=== PATIENT | female | born 1980 | race Caucasian/White ===

== ENCOUNTER → 2018-10-20 | Outpatient (CLI) | payer OTHER ==
--- NOTE | 2018-10-20 20:08 | MR ---
EXAMINATION TYPE: MR brain wo/w con DATE OF EXAM: 10/20/2018 COMPARISON: NONE HISTORY: No prior, swollen optic nerve, visual disturbance. Abnormal ophthalmology exam. TECHNIQUE: Multiplanar, multisequence images of the brain and brainstem is performed without and with IV contras t, utilizing 10ml mL intravenous Gadavist . FINDINGS: Diffusion weighted images demonstrate no evidence of a recent infarct or other diffusion ab normality. There is no extra-axial fluid collection or significant white matter signal abnormality. The ventricular system and cisternal spaces are normal in size and appearance. The brain volume is age appropriate. 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 Midline structures demonstrate empty sella morphology. The craniocervical junction appears within no rmal limits. Post contrast images demonstrate no abnormal enhancement. The dural venous sinuses appe ar patent. The globes are intact bilaterally.. No suspicious outpouching along posterior globe margin IMPRESSION: Empty sella morphology without hydrocephalus or other findings to suggest intracranial hy potension
== END | disposition home or self-care (01) ==
LOC: RADMRIMAIN 19:10
PROVIDERS: ATTEND Ophthalmology
DX: H47.11 Papilledema associated with increased intracranial pressure (principal)
CPT/HCPCS: 70553; A9585

== ENCOUNTER 2018-11-03 09:19 | Day surgery (SDC) | payer OTHER ==
[2018-10-31 08:28] VITALS: BMI 39.8
[~2018-11-03 09:19] MED LIST: LACTATED RINGERS 1,000 ML IV SCH
[2018-11-03 10:51] VITALS: TEMP 97.2
--- NOTE | 2018-11-03 12:06 | P.PCN ---
Date of Procedure: 11/03/18 Procedure(s) Performed: Preoperative diagnosis: Pseudotumor cerebri Post operative diagnoses: Pseudotumor cerebri Anesthesia local infiltration with lidocaine 1% 2 mL., moderate sedation with fentanyl and Versed Condition: stable Complication: none. Description of the procedure procedure risk and benefits discussed with the patient and family, consent signed. Patient was taken to the procedure area placed in left lateral position. Local infiltration of the skin and subcutaneous tissue with lidocaine 1%. A 22-gauge Quincke-type needle advanced slowly at L4- 5 interlaminar space.opening pressure was measured at 50 cm of water. CSF was collected. A total of 22 ML of clear cerebrospinal fluid collected in 4 tubes, then closing pressure was measured at 16 cm of water. Then, the needle was removed and a Band-Aid applied and patient tolerated the procedure well without any complications.
[2018-11-03] MEDS ORDERED: IV FLUID CONTINUATION 1,000 ML IV ONE (12:18)
[2018-11-03 12:23] VITALS: RESP 16
[2018-11-03] MEDS: hydrALAZINE HCL 20 MG/ML 1 ML VIAL IVP ONE ×2 (13:14→13:35)
[2018-11-03 14:09] VITALS: BP 157/95; PULSE 89
[2018-11-03 14:24] LABS: Glucose,CSF 46 mg/dL (40-70); Total Protein,CSF 24 mg/dL (12-60)
[2018-11-03 16:04] LABS: Appearance,CSF Clear; CSF Tube Number 4; Nucleated Cells, CSF 0 u/L (0-5); Red Blood Cell,CSF 3 u/L (0-10)
== END 2018-11-03 14:25 | disposition home or self-care (01) ==
LOC: ORPAIN 09:19
PROVIDERS: ATTEND Anesthesiology
DX: G93.2 Benign intracranial hypertension (principal)
CPT/HCPCS: 62270; 81025; 88108; 84157; 82945; 89050; J2250; J0360; J3010; 99152

== ENCOUNTER 2018-12-29 23:15 | Inpatient (IN) | payer OTHER ==
[2018-12-30] MEDS ORDERED: SODIUM CHLORIDE 0.9% 1,000 ML IV STA ×2 (00:38→01:52)
[2018-12-30 00:46] LABS: Basophils % (A) 0 %; Eosinophils # (A) 0.3 k/uL (0-0.7); Eosinophils % (A) 2 %; HCT 24.2 % (34.0-46.0); HGB 8.3 gm/dL (11.4-16.0); Lymphocytes # (A) 1.9 k/uL (1.0-4.8); Lymphocytes % (A) 17 %; MCH 29.6 pg (25.0-35.0); MCHC 34.2 g/dL (31.0-37.0); MCV 86.8 fL (80.0-100.0); Mean Platelet Volume 7.3; Monocytes # (A) 0.3 k/uL (0-1.0); Monocytes % (A) 3 %; Neutrophils # (A) 8.3 k/uL (1.3-7.7); Neutrophils % (A) 76 %; Platelet Count 219 k/uL (150-450); RBC 2.79 m/uL (3.80-5.40); RDW 15.3 % (11.5-15.5); WBC 10.9 k/uL (3.8-10.6)
[2018-12-30 00:54] LABS: Albumin 3.8 g/dL (3.5-5.0); Potassium 4.6 mmol/L (3.5-5.1); Total Bilirubin 0.2 mg/dL (0.2-1.3)
[2018-12-30 01:07] LABS: Calcium 6.3 mg/dL (8.4-10.2)
[2018-12-30] MEDS ORDERED: hydrALAZINE HCL 20 MG/ML 1 ML VIAL IVP STA (01:28)
[2018-12-30 01:37] LABS: Appearance,Urine Clear (Clear); Bacteria,Urine Many /hpf; Bilirubin,Urine Negative (Negative); Blood,Urine Small (Negative); Color,Urine Colorless; Glucose,Urine (UA) Negative (Negative); Ketones,Urine Negative (Negative); Leukocyte Esterase,Urine Large (Negative); Nitrite,Urine Negative (Negative); Protein,Urine 2+ (Negative); Specific Gravity,Urine 1.007 (1.001-1.035); Squamous Epithelial Cell,Urine <1 /hpf (0-4); Urobilinogen,Urine <2.0 mg/dL (<2.0); WBC,Urine 66 /hpf (0-5)
[2018-12-30] MEDS ORDERED: CALCIUM GLUCONATE 1 GM in SODIUM CHLORIDE 0.9% 100 ML IVPB ONE (02:30)
[2018-12-30] MEDS ORDERED: NALOXONE 0.4 MG/ML 1 ML VIAL IV PRN (03:14)
--- NOTE | 2018-12-30 03:14 | ED ---
General Adult HPI - General Chief complaint: Recheck/Abnormal Lab/Rx Stated complaint: Abn Lab level Time Seen by Provider: 12/30/18 00:36 Source: patient, RN notes reviewed, old records reviewed Mode of arrival: ambulatory Limitations: no limitations - History of Present Illness Initial comments: 38-year-old female patient presents to ED after a febrile patient laboratory investigations reportedly revealed a critically high name. Patient has a history of focal segment lower lobe sclerosis. Patient reports that she last saw a mathematics instructor approximate 5 years ago. Patient is asymptomatic at this time. Denies any complaints. She does still make urine. Systemic: Pt denies fatigue, fever/chills, rash. Pt denies weakness, night sweats, weight loss. Neuro: Pt denies headache, visual disturbances, syncope or pre-syncope. HEENT: Pt denies ocular discharge or irritation, otalgia, rhinorrhea, pharyngitis or notable lymphadenopathy. Cardiopulmonary: Pt denies chest pain, SOB, heart palpitations, dyspnea on exertion. Abdominal/GI: Pt denies abdominal pain, n/v/d. : Pt denies dysuria, burning w/ urination, frequency/urgency. Denies new onset urinary or bowel incontinence. MSK: Pt denies myalgia, loss of strength or function in extremities. Neuro: Pt denies new onset weakness, paresthesias. - Related Data Home Medications Medication Instructions Recorded Confirmed No Known Home Medications 10/31/18 10/31/18 Allergies Allergy/AdvReac Type Severity Reaction Status Date / Time Pertussis Vaccines Allergy Unknown Verified 12/29/18 23:35 ciprofloxacin [From Cipro] AdvReac " Verified 12/29/18 23:35 UNCONTROLLABLE EMOTIONS" PER PT Review of Systems ROS Statement: Those systems with pertinent positive or pertinent negative responses have been documented in the HPI. ROS Other: All systems not noted in ROS Statement are negative. Past Medical History Past Medical History: Hypertension, Renal Disease Additional Past Medical History / Comment(s): SWOLLEN OPTICAL NERVE. HX FSGS (FOCAL SEGMENTAL GLOMERULAR SCLEROSIS) History of Any Multi-Drug Resistant Organisms: None Reported Past Surgical History: Section Past Anesthesia/Blood Transfusion Reactions: No Reported Reaction Past Psychological History: No Psychological Hx Reported Smoking Status: Former smoker Past Alcohol Use History: Occasional Past Drug Use History: Marijuana - Past Family History Father Family Medical History: Myocardial Infarction ([place]) Additional Family Medical History / Comment(s): FATHER AT AGE 35 OF MASSIVE HEART ATTACK Mother Family Medical History: No Reported History General Exam - General Exam Comments Initial Comments: Constitutional: NAD, AOX3, Pt has pleasant affect. HEENT: NC/AT, trachea midline, neck supple, no lymphadenopathy. Posterior pharynx non erythematous, without exudates. External ears appear normal, without discharge. Mucous membranes moist. Eyes PERRLA, EOM intact. There is no scleral icterus. No pallor noted. Cardiopulmonary: RRR, no murmurs, rubs or gallops, no JVD noted. Lungs CTAB in anterior and posterior portillo. No peripheral edema. Abdominal exam: Abdomen soft and non-distended. Abdomen non-tender to palpation in all 4 quadrants. Bowel sounds active in LLQ. No hepatosplenomegaly. No ecchym osis Neuro: CN II-XII grossly intact. No nuchal rigidity. No raccon eyes, no molina sign, no hemotympanum. No cervical spinal tenderness. MSK: No posterior calf tenderness bilaterally, homans sign negative bilaterally. Posterior tibialis and radial pulse +2 bilaterally. Sensation intact in upper an d lower extremities. Full active ROM in upper and lower extremities, 5/5 stregnth. Limitations: no limitations Course Vital Signs 12/29/18 12/30/18 12/30/18 23:31 01:14 02:20 Temperature 98.2 F Pulse Rate 85 81 82 Respiratory 15 18 16 Rate Blood Pressure 198/96 175/102 161/88 O2 Sat by Pulse 98 100 98 Oximetry Medical Decision Making - Medical Decision Making 38-year-old female patient presents to ED after a febrile patient laboratory investigations reportedly revealed a critically high name. Patient has a history of focal segment lower lobe sclerosis. Patient reports that she last saw a mathematics instructor approximate 5 years ago. Patient is asymptomatic at this time. Denies any complaints. She does still make urine. Investigation revealed hypertension, patient administered antihypertensive. Laboratory investigations revealed an alert 8.3. Creatinine was 10.17. Calcium 6.3. Phosphorus 8.0. Glucose 114. UA displayed +2 protein, small blood, large leukocyte Estrace 66 white blood cells. Patient was initiated on fluid bolus, calcium gluconate. Patient initiated on 1 g Rocephin 1 hour after dosing gluco yolanda, and bolus. EKG nonischemic, QTC 466. Patient be admitted for acute renal failure, nephrology consultation. Case discussed with Dr. Tiwari. - Lab Data Result diagrams: 12/30/18 00:20 12/30/18 00:20 Lab Results 12/30/18 12/30/18 12/30/18 Range/Units 00:20 00:20 00:20 WBC 10.9 H (3.8-10.6) k/uL RBC 2.79 L (3.80-5.40) m/uL Hgb 8.3 L (11.4-16.0) gm/dL Hct 24.2 L (34.0-46.0) % MCV 86.8 (80.0-100.0) fL MCH 29.6 (25.0-35.0) pg MCHC 34.2 (31.0-37.0) g/dL RDW 15.3 (11.5-15.5) % Plt Count 219 (150-450) k/uL Neutrophils % 76 % Lymphocytes % 17 % Monocytes % 3 % Eosinophils % 2 % Basophils % 0 % Neutrophils # 8.3 H (1.3-7.7) k/uL Lymphocytes # 1.9 (1.0-4.8) k/uL Monocytes # 0.3 (0-1.0) k/uL Eosinophils # 0.3 (0-0.7) k/uL Basophils # 0.0 (0-0.2) k/uL Sodium 141 (137-145) mmol/L Potassium 4.6 (3.5-5.1) mmol/L Chloride 112 H (98-107) mmol/L Carbon Dioxide 10 L (22-30) mmol/L Anion Gap 19 mmol/L BUN 94 H (7-17) mg/dL Creatinine 10.17 H* (0.52-1.04) mg/dL Est GFR (CKD-EPI)AfAm 5 (>60 ml/min/1.73 sqM) Est GFR (CKD-EPI)NonAf 4 (>60 ml/min/1.73 sqM) Glucose 114 H (74-99) mg/dL Calcium 6.3 L* (8.4-10.2) mg/dL Phosphorus 8.0 H (2.5-4.5) mg/dL Total Bilirubin 0.2 (0.2-1.3) mg/dL AST 16 (14-36) U/L ALT 17 (9-52) U/L Alkaline Phosphatase 59 (38-126) U/L Total Protein 7.0 (6.3-8.2) g/dL Albumin 3.8 (3.5-5.0) g/dL Urine Color Urine Appearance (Clear) Urine pH (5.0-8.0) Ur Specific [place] (1.001-1.035) Urine Protein (Negative) Urine Glucose (UA) (Negative) Urine Ketones (Negative) Urine Blood (Negative) Urine Nitrite (Negative) Urine Bilirubin (Negative) Urine Urobilinogen (<2.0) mg/dL Ur Leukocyte Esterase (Negative) Urine WBC (0-5) /hpf Urine WBC Clumps (None) /hpf Ur Squamous Epith Cells (0-4) /hpf Urine Bacteria (None) /hpf 12/30/18 Range/Units 01:20 WBC (3.8-10.6) k/uL RBC (3.80-5.40) m/uL Hgb (11.4-16.0) gm/dL Hct (34.0-46.0) % MCV (80.0-100.0) fL MCH (25.0-35.0) pg MCHC (31.0-37.0) g/dL RDW (11.5-15.5) % Plt Count (150-450) k/uL Neutrophils % % Lymphocytes % % Monocytes % % Eosinophils % % Basophils % % Neutrophils # (1.3-7.7) k/uL Lymphocytes # (1.0-4.8) k/uL Monocytes # (0-1.0) k/uL Eosinophils # (0-0.7) k/uL Basophils # (0-0.2) k/uL Sodium (137-145) mmol/L Potassium (3.5-5.1) mmol/L Chloride (98-107) mmol/L Carbon Dioxide (22-30) mmol/L Anion Gap mmol/L BUN (7-17) mg/dL Creatinine (0.52-1.04) mg/dL Est GFR (CKD-EPI)AfAm (>60 ml/min/1.73 sqM) Est GFR (CKD-EPI)NonAf (>60 ml/min/1.73 sqM) Glucose (74-99) mg/dL Calcium (8.4-10.2) mg/dL Phosphorus (2.5-4.5) mg/dL Total Bilirubin (0.2-1.3) mg/dL AST (14-36) U/L ALT (9-52) U/L Alkaline Phosphatase (38-126) U/L Total Protein (6.3-8.2) g/dL Albumin (3.5-5.0) g/dL Urine Color Colorless Urine Appearance Clear (Clear) Urine pH 6.0 (5.0-8.0) Ur Specific [place] 1.007 (1.001-1.035) Urine Protein 2+ H (Negative) Urine Glucose (UA) Negative (Negative) Urine Ketones Negative (Negative) Urine Blood Small H (Negative) Urine Nitrite Negative (Negative) Urine Bilirubin Negative (Negative) Urine Urobilinogen <2.0 (<2.0) mg/dL Ur Leukocyte Esterase Large H (Negative) Urine WBC 66 H (0-5) /hpf Urine WBC Clumps Occasional H (None) /hpf Ur Squamous Epith Cells <1 (0-4) /hpf Urine Bacteria Many H (None) /hpf - EKG Data -: EKG Interpreted by Me (and Dr. Tiwari) EKG Comments: Ventricular rate 86, painful 156, QRS 86 QT/QTC 390 [id number]. Normal sensation, normal EKG, no concern for acute ischemia. Disposition Clinical Impression: Acute renal failure, UTI (urinary tract infection) Disposition: ADMITTED IP TO THIS [facility] Condition: Serious Is patient prescribed a controlled substance at d/c from ED?: No Referrals: Alia Keita MD [Primary Care Provider] - 1-2 days
[2018-12-30] MEDS ORDERED: SODIUM CHLORIDE 0.9% 1,000 ML IV SCH (03:15)
[2018-12-30 04:29] VITALS: BMI 34.4
[2018-12-30] MEDS: ACETAMINOPHEN TAB 325 MG TAB PO PRN ×2 (12:10→23:26)
[2018-12-30] MEDS: DEXTROSE 5% IN WATER 1,000 ML with SODIUM BICARB (1 MEQ/ML) 150 ML IV SCH ×2 (12:10→23:22)
[2018-12-30] MEDS ORDERED: ONDANSETRON 4 MG/2 ML VIAL IVP PRN (12:14)
[2018-12-30] MEDS: amLODIPine 5 MG TAB PO SCH (12:27)
--- NOTE | 2018-12-30 13:58 | P.HPIM ---
History of Present Illness 38-year-old pleasant female was sent in after she was found to have critically high creatinine of 10 on routine labs. Patient denied any symptoms of fatigue nausea vomiting. Patient has diagnosed of focal segmental sclerosis which was diagnosed with biopsy for 15 years ago does urinate well. Patient denied any dysuria or increased urinary frequency urine is bit abnormal with leukocytes although patient has a symptom any bacteria will not require any antibiotics that. Nephrology valid to the patient patient was started on normal saline. Lisinopril was discontinued patient was started on amlodipine because of elevated blood pressure and plan is to monitor her for next couple days with close creatinine monitoring with IV fluids and there is no improvement at that time nephrology will plan on dialysis, patient was started on IV sodium bicarbonate drip Review of Systems REVIEW OF SYSTEMS: CONSTITUTIONAL: No fever, no malaise, no fatigue. HEENT: No recent visual problems or hearing problems. Denied any sore throat. CARDIOVASCULAR: No chest pain, orthopnea, PND, no palpitations, no syncope. PULMONARY: No shortness of breath, no cough, no hemoptysis. GASTROINTESTINAL: No diarrhea, no nausea, no vomiting, no abdominal pain. NEUROLOGICAL: No headaches, no weakness, no numbness. HEMATOLOGICAL: Denies any bleeding or petechiae. GENITOURINARY: Denies any burning micturition, frequency, or urgency. MUSCULOSKELETAL/RHEUMATOLOGICAL: Denies any joint pain, swelling, or any muscle pain. ENDOCRINE: Denies any polyuria or polydipsia. The rest of the 14-point review of systems is negative. Past Medical History Past Medical History: Hypertension, Renal Disease Additional Past Medical History / Comment(s): SWOLLEN OPTICAL NERVE. HX FSGS (FOCAL SEGMENTAL GLOMERULAR SCLEROSIS) History of Any Multi-Drug Resistant Organisms: None Reported Past Surgical History: Section Past Anesthesia/Blood Transfusion Reactions: No Reported Reaction Past Psychological History: No Psychological Hx Reported Smoking Status: Former smoker Past Alcohol Use History: Occasional Past Drug Use History: Marijuana - Past Family History Father Family Medical History: Myocardial Infarction ([place]) Additional Family Medical History / Comment(s): FATHER AT AGE 35 OF MASSIVE HEART ATTACK Mother Family Medical History: No Reported History Medications and Allergies Home Medications Medication Instructions Recorded Confirmed Type Lisinopril [Zestril] 10 mg PO DAILY 12/30/18 12/30/18 History Potassium 99 mg PO DAILY PRN 12/30/18 12/30/18 History Allergies Allergy/AdvReac Type Severity Reaction Status Date / Time Pertussis Vaccines Allergy Unknown Verified 12/30/18 08:10 ciprofloxacin [From Cipro] AdvReac UNCONTROLLABLE Verified 12/30/18 08:10 EMOTIONS PER PT Physical Exam Vitals: Vital Signs Temp Pulse Pulse Resp BP BP Pulse Ox 12/30/18 12:48 98.4 F 94 16 176/87 98 12/30/18 05:11 98.1 F 81 18 168/91 100 12/30/18 03:56 98.5 F 82 18 165/90 98 12/30/18 02:20 82 16 161/88 98 12/30/18 01:14 81 18 175/102 100 12/29/18 23:31 98.2 F 85 15 198/96 98 Intake and Output 12/29/18 12/30/18 12/30/18 22:59 06:59 14:59 Intake Total 210 Balance 210 Intake: Intake, IV Titration 210 Amount Sodium Chloride 0.9% 1, 160 000 ml @ 80 mls/hr IV . [id number] [facility] Rx#:[id number] cefTRIAXone 1 gm In 50 Sodium Chloride 0.9% 50 ml @ 100 mls/hr IVPB ONCE ONE Rx#:[id number] Other: Voiding Method Toilet Toilet Weight 109.769 kg PHYSICAL EXAMINATION: GENERAL: The patient is alert and oriented x3, not in any acute distress. Well developed, well nourished. HEENT: Pupils are round and equally reacting to light. EOMI. No scleral icterus. No conjunctival pallor. Normocephalic, atraumatic. No pharyngeal erythema. No thyromegaly. CARDIOVASCULAR: S1 and S2 present. No murmurs, rubs, or gallops. PULMONARY: Chest is clear to auscultation, no wheezing or crackles. ABDOMEN: Soft, nontender, nondistended, normoactive bowel sounds. No palpable organomegaly. MUSCULOSKELETAL: No joint swelling or deformity. EXTREMITIES: No cyanosis, clubbing, or pedal edema. NEUROLOGICAL: Gross neurological examination did not reveal any focal deficits. SKIN: No rashes. Results CBC & Chem 7: 12/30/18 00:20 12/30/18 00:20 Labs: Abnormal Lab Results - Last 24 Hours (Table) 12/30/18 12/30/18 12/30/18 Range/Units 00:20 00:20 00:20 WBC 10.9 H (3.8-10.6) k/uL RBC 2.79 L (3.80-5.40) m/uL Hgb 8.3 L (11.4-16.0) gm/dL Hct 24.2 L (34.0-46.0) % Neutrophils # 8.3 H (1.3-7.7) k/uL Chloride 112 H (98-107) mmol/L Carbon Dioxide 10 L (22-30) mmol/L BUN 94 H (7-17) mg/dL Creatinine 10.17 H* (0.52-1.04) mg/dL Glucose 114 H (74-99) mg/dL Calcium 6.3 L* (8.4-10.2) mg/dL Phosphorus 8.0 H (2.5-4.5) mg/dL Urine Protein (Negative) Urine Blood (Negative) Ur Leukocyte Esterase (Negative) Urine WBC (0-5) /hpf Urine WBC Clumps (None) /hpf Urine Bacteria (None) /hpf 12/30/18 Range/Units 01:20 WBC (3.8-10.6) k/uL RBC (3.80-5.40) m/uL Hgb (11.4-16.0) gm/dL Hct (34.0-46.0) % Neutrophils # (1.3-7.7) k/uL Chloride (98-107) mmol/L Carbon Dioxide (22-30) mmol/L BUN (7-17) mg/dL Creatinine (0.52-1.04) mg/dL Glucose (74-99) mg/dL Calcium (8.4-10.2) mg/dL Phosphorus (2.5-4.5) mg/dL Urine Protein 2+ H (Negative) Urine Blood Small H (Negative) Ur Leukocyte Esterase Large H (Negative) Urine WBC 66 H (0-5) /hpf Urine WBC Clumps Occasional H (None) /hpf Urine Bacteria Many H (None) /hpf Thrombosis Risk Factor Assmnt - Choose All That Apply Any of the Below Risk Factors Present?: No Each Factor Represents 1 point: Obesity (BMI >25) Other Risk Factors: No Other congenital or acquired thrombophilia - If yes, enter type in comment: No Thrombosis Risk Factor Assessment Total Risk Factor Score: 1 Thrombosis Risk Factor Assessment Level: Very Low Risk Assessment and Plan Plan: renal failure: Mostly from chronic kidney disease stage V which is again secondary to focal segmental nephrosclerosis, there may be a competent of acute renal failure and to prerenal azotemia because of which patient was started on IV fluids -Metabolic acidosis secondary to uremia and the patient was started on sodium bicarbonate drip as per nephrology, and lisinopril was discontinued -Hypertension secondary to focal segmental nephrosclerosis patient was started on amlodipine. -leukocytosis reactive -Anemia, Chronic: Probably anemia of chronic kidney disease ferritin an iron saturation will be obtained. -Due to prophylaxis early ambulation
[2018-12-30] MEDS ORDERED: DARBEPOETIN ALFA 60 MCG/0.3 ML SYRINGE SQ SCH (18:00)
[2018-12-30 19:11] LABS: Ferritin 88.5 ng/mL (10.0-291.0)
[2018-12-30 19:13] LABS: Iron Saturation 10.17 (12.00-45.00)
--- NOTE | 2018-12-30 21:47 | CONS ---
CONSULTATION REASON FOR CONSULT: Renal failure. HISTORY OF PRESENT ILLNESS: The patient is a 38-year-old female with a previous history of chronic kidney disease secondary to FSGS after a biopsy done about 15 years ago. The patient has not followed up with a hot iron worker recently. She states her GFR was about 38 about 5 years ago. She recently saw Dr. Keita and had labs drawn and creatinine was noted to be around 10. Therefore, patient was advised to come into the hospital. The patient denies any change in her overall general condition. She denies nausea, vomiting or diarrhea, and she states her energy level has not changed much and she has good urine output. The patient also denies use of any nonsteroidal anti-inflammatory agents prior to admission. The patient noted that she started taking Zestril about 4 weeks ago. She had been on it and she had run out and was not taking it for almost a year, but restarted it just 3-4 weeks ago. Currently patient is maintained on IV fluids. She has had good urine output. She is not hypotensive. Blood pressure is slightly on the higher side. PAST MEDICAL HISTORY: CKD stage 4, as of 5 years ago. No recent labs available for assessment. Hypertension. PAST SURGICAL HISTORY: . SOCIAL HISTORY: Patient is a former smoker. No history of drug abuse or alcohol abuse. MEDICATIONS: Medications at home included Zestril, potassium. ALLERGIES: INCLUDE PERTUSSIS VACCINE AND CIPRO WHICH CAUSES UNCONTROLLED EMOTIONS. REVIEW OF SYSTEMS: As per HPI. Other systems negative. EXAMINATION: Patient is comfortable, awake, alert, oriented x3. She is not in any acute distress. Blood pressure this morning was as 168/91, heart rate 81 per minute. She is afebrile. Examination of the heart S1, S2. Examination of the lungs, bilateral breath sounds are heard. Abdomen is soft, nontender. Examination of lower extremities shows no evidence of edema. No asterixis is noted. YEAST PUSHER exam grossly intact. LAB: Shows sodium 141, potassium 4.6, chloride 112. CO2 is 10. BUN 94, creatinine 10.1, calcium 6.3. UA shows 2+ protein, small blood is noted. Albumin at 3.8, hemoglobin 8.3. ASSESSMENT: 1. Chronic kidney disease stage IV to 5 fluid, with progressive worsening of renal function. At this time, I am not sure how much of her renal failure is due to acute kidney injury. I will continue with the IV fluids and patient is advised that if her renal function does not improve, she will need to start dialysis. She is fairly asymptomatic. However, this may be going on for quite some time now. The patient also started lisinopril about 3-4 weeks ago which may have contributed to some degree of acute kidney injury. 2. Hypertension. Continue to hold off on lisinopril. Add Norvasc. 3. Severe metabolic acidosis, anion gap secondary to renal failure. Add IV sodium bicarb. 4. Anemia, rule out iron deficiency and also secondary to anemia of chronic disease. Add Aranesp. 5. Hypocalcemia and hyperphosphatemia secondary to mineral bone disorder. Check PTH levels and 25 hydroxy vitamin D levels. The patient will need to start Rocaltrol based on her PTH. I will add PhosLo for her phosphate binders as her calcium is on the lower side. 6. Pyuria, rule out urinary tract infection. Patient is maintained on Rocephin. PLAN: 1. Add Norvasc. 2. Add sodium bicarb IV. 3. Add Aranesp. 4. Check iron studies. 5. Check PTH and 25 hydroxy vitamin D level. 6. Continue with IV fluids. 7. Repeat labs in a.m. 8. Check ultrasound of the kidneys and if renal function does not improve over the next day or so, patient will need to start dialysis. 9. Thank you for this consultation. We will continue to follow the patient with you during her hospitalization. MMODL / IJN: [id number] /
--- NOTE | 2018-12-30 23:08 | US ---
EXAMINATION TYPE: US renals and bladder DATE OF EXAM: 12/30/2018 COMPARISON: US CLINICAL HISTORY: RF. RF per order. HTN. Hx renal BX. Patient has Focal Segmental Glomerulosclerosis. EXAM MEASUREMENTS: Right Kidney: 7.5 x 5.2 x 4.3 cm Left Kidney: 10.0 x 5.3 x 5.9 cm Right Kidney: Hypoechoic area seen inferiorly measurin.7 x 1.7 x 1.7 cm. Hypoechoic area seen med ially/mid pole measurin.7 x 1.5 x 1.2 cm. Limited, echogenicity appears increased similar to live r echogenicity. Appears small in size. Left Kidney: Hypoechoic/mixed area seen inferiorly measurin.4 x 1.9 x 2.5 cm. Limited, indistinct borders. Appears very heterogeneous. Bladder: Not fully distended, limited evaluation. Bilateral Jets seen: Right jet seen. IMPRESSION: There are bilateral renal cortical cysts. No solid renal mass. Kidneys are echogenic suggestive of medical renal disease. No hydronephrosis.
[2018-12-31] MEDS ORDERED: CARVEDILOL 6.25 MG TAB PO SCH (07:30)
[2018-12-31 08:17] LABS: Basophils % (A) 0 %; Eosinophils # (A) 0.2 k/uL (0-0.7); Eosinophils % (A) 2 %; HCT 21.4 % (34.0-46.0); HGB 7.2 gm/dL (11.4-16.0); Hypochromasia Slight; Lymphocytes # (A) 1.2 k/uL (1.0-4.8); Lymphocytes % (A) 16 %; MCH 29.7 pg (25.0-35.0); MCHC 33.9 g/dL (31.0-37.0); MCV 87.6 fL (80.0-100.0); Mean Platelet Volume 7.5; Monocytes # (A) 0.3 k/uL (0-1.0); Monocytes % (A) 4 %; Neutrophils # (A) 5.9 k/uL (1.3-7.7); Neutrophils % (A) 77 %; Platelet Count 177 k/uL (150-450); RBC 2.44 m/uL (3.80-5.40); RDW 15.2 % (11.5-15.5); WBC 7.6 k/uL (3.8-10.6)
[2018-12-31] MEDS: CALCIUM ACETATE 667 MG CAP PO SCH ×3 (08:33→17:14)
[2018-12-31] MEDS: amLODIPine 5 MG TAB PO SCH (08:33)
[2018-12-31 08:37] LABS: Albumin 3.1 g/dL (3.5-5.0); Total Bilirubin 0.3 mg/dL (0.2-1.3); Total Protein 5.9 g/dL (6.3-8.2)
[2018-12-31] MEDS: DEXTROSE 5% IN WATER 1,000 ML with SODIUM BICARB (1 MEQ/ML) 150 ML IV SCH ×2 (12:27→23:25)
[2018-12-31] MEDS: ACETAMINOPHEN TAB 325 MG TAB PO PRN (12:31)
--- NOTE | 2018-12-31 14:19 | P.PN ---
Subjective Progress Note Date: 12/31/18 Principal diagnosis: 38-year-old pleasant female was sent in after she was found to have critically high creatinine of 10 on routine labs. Patient denied any symptoms of fatigue nausea vomiting. Patient has diagnosed of focal segmental sclerosis which was diagnosed with biopsy for 15 years ago does urinate well. Patient denied any dysuria or increased urinary frequency urine is bit abnormal with leukocytes although patient has a symptom any bacteria will not require any antibiotics that. Nephrology valid to the patient patient was started on normal saline. Lisinopril was discontinued patient was started on amlodipine because of elevated blood pressure and plan is to monitor her for next couple days with close creatinine monitoring with IV fluids and there is no improvement at that time nephrology will plan on dialysis, patient was started on IV sodium bicarbonate drip 12/31/2018 Patient is sitting up in bed in no acute distress with at the bedside. Patient is being followed closely by nephrology. Creatinine today is 9.55 and will be closely monitored. Patient is currently still on IV fluids but was changed from normal saline to dextrose with sodium bicarbonate. Patient continues to have high blood pressure and per nephrology recommendations patient was started on Norvasc and will continue to monitor. Patient denies any shortness of breath, chest pain, or palpitations at this time. Patient is afebrile. Patient denies any nausea or vomiting and has been tolerating diet. Objective - Vital Signs Vital signs: Vital Signs Temp 98.6 F 12/31/18 12:59 Pulse 83 12/31/18 12:59 Resp 17 12/31/18 12:59 BP 155/84 12/31/18 12:59 Pulse Ox 96 12/31/18 12:59 Intake & Output 12/30/18 12/31/18 12/31/18 18:59 06:59 18:59 Intake Total 1150 Balance 1150 Intake: Intake, IV Titration 1150 Amount Dextrose 5% in Water 1, 1150 000 ml @ 100 mls/hr IV . [id number] VANESSA with Sodium Bicarb (1 Meq/ml) 150 ml Rx#:[id number] Other: Voiding Method Toilet Toilet Toilet # Voids 2 1 - Exam GENERAL: The patient is alert and oriented x3, not in any acute distress. Well developed, well nourished. HEENT: Pupils are round and equally reacting to light. EOMI. No scleral icterus. No conjunctival pallor. Normocephalic, atraumatic. No pharyngeal erythema. No th yromegaly. CARDIOVASCULAR: S1 and S2 present. No murmurs, rubs, or gallops. PULMONARY: Chest is clear to auscultation, no wheezing or crackles. ABDOMEN: Soft, obese, nontender, nondistended, normoactive bowel sounds. No palpable organomegaly. MUSCULOSKELETAL: No joint swelling or deformity. EXTREMITIES: No cyanosis, clubbing, or pedal edema. NEUROLOGICAL: Gross neurological examination did not reveal any focal deficits. SKIN: No rashes. - Labs CBC & Chem 7: 12/31/18 07:51 12/31/18 07:51 Labs: Abnormal Lab Results - Last 24 Hours (Table) 12/30/18 12/31/18 12/31/18 Range/Units 00:20 07:51 07:51 RBC 2.44 L (3.80-5.40) m/uL Hgb 7.2 L (11.4-16.0) gm/dL Hct 21.4 L (34.0-46.0) % Chloride 111 H (98-107) mmol/L Carbon Dioxide 17 L (22-30) mmol/L BUN 85 H (7-17) mg/dL Creatinine 9.55 H* (0.52-1.04) mg/dL Calcium 6.0 L* (8.4-10.2) mg/dL Iron 30 L (50-170) ug/dL Iron Saturation 10.17 L (12.00-45.00) AST 13 L (14-36) U/L Total Protein 5.9 L (6.3-8.2) g/dL Albumin 3.1 L (3.5-5.0) g/dL Assessment and Plan Assessment: -renal failure: Mostly from chronic kidney disease stage V which is again secondary to focal segmental nephrosclerosis, there may be a component of acute renal failure and to prerenal azotemia because of which patient was started on IV fluids. IV fluids have been transition to dextrose/water with sodium bicarbonate at 100 mL per hour. Nephrology is following closely and if lab values don't improve patient may need possible dialysis. -Metabolic acidosis secondary to uremia and the patient was started on sodium bicarbonate drip as per nephrology, and lisinopril was discontinued. Patient was started on Norvasc 5 mg daily -Hypertension secondary to focal segmental nephrosclerosis patient was started on amlodipine. Will continue to monitor. -leukocytosis reactive -Anemia, Chronic: Probably anemia of chronic kidney disease ferritin an iron saturation will be obtained. Ferritin is 88.5 and iron saturation is slightly low at 10.17 -DVT prophylaxis early ambulation
[2018-12-31] MEDS: SODIUM FERRIC GLUCONAT-SUCROSE 125 MG in SODIUM CHLORIDE 0.9% 100 ML IVPB SCH (17:12)
[2018-12-31] MEDS: CARVEDILOL 12.5 MG TAB PO SCH (17:19)
--- NOTE | 2018-12-31 20:15 | PN ---
PROGRESS NOTE Patient is seen for followup for acute kidney injury. She is maintained on IV fluids. Renal function has improved somewhat, but not significantly. Serum creatinine was 10.17. It is down to 9.5. Patient continues to have fair amount of urine output. She denies any nausea, vomiting or diarrhea. Patient is not complaining of any shortness of breath. On examination, blood pressure is 168/100, heart rate 81 per minute. Patient is afebrile. EXAMINATION OF THE HEART: S1 and S2. EXAMINATION OF LUNGS: Bilateral breath sounds are heard. ABDOMEN: Soft, non-tender. Examination of lower extremities shows no evidence of edema. HAND QUILTER exam is grossly intact. Labs show sodium 141, potassium 4.0, CO2 17, BUN 85, serum creatinine 9.5 mg/dL. ASSESSMENT: 1. Advanced renal failure, possibly acute on top of chronic. Continue with IV fluids. Serum creatinine is only slightly improved. I have advised the patient that if her renal function does not improve significantly over the next 1 or 2 days, she will need to start dialysis. 2. Anemia. No active bleeding noted. Iron saturation was low at 10%. I will start the patient on IV iron. 3. Severe metabolic acidosis secondary to renal failure, anion gap, started on IV bicarb, currently improved. No ongoing diarrhea. 4. Pyuria. Rule out urinary tract infection. PLAN: Check urine culture. Add IV iron. Continue IV fluids. Repeat labs in a.m. Start hemodialysis if her renal function is not significantly improved. Increase Coreg to 12.5 mg b.i.d., as blood pressure remains elevated. MMODL / IJN: [id number] /
[2019-01-01] MEDS: CARVEDILOL 12.5 MG TAB PO SCH ×2 (08:21→19:44)
[2019-01-01] MEDS: amLODIPine 5 MG TAB PO SCH (08:21)
[2019-01-01] MEDS: CALCIUM ACETATE 667 MG CAP PO SCH ×3 (08:22→19:45)
[2019-01-01] MEDS: SODIUM FERRIC GLUCONAT-SUCROSE 125 MG in SODIUM CHLORIDE 0.9% 100 ML IVPB SCH (08:37)
[2019-01-01 09:36] LABS: Basophils % (A) 0 %; Eosinophils # (A) 0.1 k/uL (0-0.7); Eosinophils % (A) 2 %; HCT 21.7 % (34.0-46.0); HGB 7.2 gm/dL (11.4-16.0); Lymphocytes # (A) 1.2 k/uL (1.0-4.8); Lymphocytes % (A) 13 %; MCH 29.4 pg (25.0-35.0); MCHC 33.1 g/dL (31.0-37.0); Mean Platelet Volume 7.9; Monocytes # (A) 0.3 k/uL (0-1.0); Monocytes % (A) 4 %; Neutrophils # (A) 7.3 k/uL (1.3-7.7); Neutrophils % (A) 80 %; Platelet Count 181 k/uL (150-450); RBC 2.44 m/uL (3.80-5.40); RDW 15.4 % (11.5-15.5); WBC 9.1 k/uL (3.8-10.6)
[2019-01-01 10:07] LABS: Albumin 3.1 g/dL (3.5-5.0); Potassium 3.3 mmol/L (3.5-5.1); Total Bilirubin 0.2 mg/dL (0.2-1.3); Total Protein 5.8 g/dL (6.3-8.2)
[2019-01-01 10:17] LABS: Calcium 5.7 mg/dL (8.4-10.2)
[2019-01-01] MEDS ORDERED: POTASSIUM CHLORIDE ER 20 MEQ TAB.ER PO STA (10:22)
[2019-01-01] MEDS: ERGOCALCIFEROL 50,000 UNIT CAP PO SCH (12:29)
[2019-01-01] MEDS: CALCIUM CARBONATE 500 MG CHEWABLE PO SCH ×2 (12:29→19:44)
[2019-01-01] MEDS: DEXTROSE 5% IN WATER 1,000 ML with SODIUM BICARB (1 MEQ/ML) 150 ML IV SCH (12:45)
--- NOTE | 2019-01-01 13:50 | P.PN ---
Subjective Progress Note Date: 01/01/19 Principal diagnosis: 38-year-old pleasant female was sent in after she was found to have critically high creatinine of 10 on routine labs. Patient denied any symptoms of fatigue nausea vomiting. Patient has diagnosed of focal segmental sclerosis which was diagnosed with biopsy for 15 years ago does urinate well. Patient denied any dysuria or increased urinary frequency urine is bit abnormal with leukocytes although patient has a symptom any bacteria will not require any antibiotics that. Nephrology valid to the patient patient was started on normal saline. Lisinopril was discontinued patient was started on amlodipine because of elevated blood pressure and plan is to monitor her for next couple days with close creatinine monitoring with IV fluids and there is no improvement at that time nephrology will plan on dialysis, patient was started on IV sodium bicarbonate drip 12/31/2018 Patient is sitting up in bed in no acute distress with at the bedside. Patient is being followed closely by nephrology. Creatinine today is 9.55 and will be closely monitored. Patient is currently still on IV fluids but was changed from normal saline to dextrose with sodium bicarbonate. Patient continues to have high blood pressure and per nephrology recommendations patient was started on Norvasc and will continue to monitor. Patient denies any shortness of breath, chest pain, or palpitations at this time. Patient is afebrile. Patient denies any nausea or vomiting and has been tolerating diet. 01/01/2019 Patient is sitting up in bed in no acute distress. No acute overnight issues. Patient had an iron infusion yesterday and states that she felt lightheaded and dizzy like she was going to pass out but when she lied down in the bed she felt better and the infusion was complete. Will continue to monitor closely. Patient is receiving another infusion today and tolerating well. Patient's creatinine today is 9.25. Patient's potassium was 3.3 today and was replaced. Nephrology is following closely. Patient denies any chest pain, shortness of breath, or palpitations at this time. Patient is afebrile. Patient is tolerating diet with no complaints of nausea or vomiting. Awaiting further recommendations from nephrology for possible dialysis. Guarded prognosis. Objective - Vital Signs Vital signs: Vital Signs Temp 98.2 F 01/01/19 11:34 Pulse 68 01/01/19 11:34 Resp 18 01/01/19 11:34 BP 133/77 01/01/19 11:34 Pulse Ox 98 01/01/19 11:34 Intake & Output 12/31/18 01/01/19 01/01/19 18:59 06:59 18:59 Intake Total 800 350 Balance 800 350 Intake: Intake, IV Titration 800 350 Amount Dextrose 5% in Water 1, 800 350 000 ml @ 100 mls/hr IV . [id number] VANESSA with Sodium Bicarb (1 Meq/ml) 150 ml Rx#:[id number] Other: Voiding Method Toilet Toilet Toilet # Voids 2 - Exam GENERAL: The patient is alert and oriented x3, not in any acute distress. Well developed, well nourished. HEENT: Pupils are round and equally reacting to light. EOMI. No scleral icterus. No conjunctival pallor. Normocephalic, atraumatic. No pharyngeal erythema. No thyromegaly. CARDIOVASCULAR: S1 and S2 present. No murmurs, rubs, or gallops. PULMONARY: Chest is clear to auscultation, no wheezing or crackles. ABDOMEN: Soft, obese, nontender, nondistended, normoactive bowel sounds. No palpable organomegaly. MUSCULOSKELETAL: No joint swelling or deformity. EXTREMITIES: No cyanosis, clubbing, or pedal edema. NEUROLOGICAL: Gross neurological examination did not reveal any focal deficits. SKIN: No rashes. - Labs CBC & Chem 7: 01/01/19 09:05 01/01/19 09:05 Labs: Abnormal Lab Results - Last 24 Hours (Table) 12/31/18 12/31/18 01/01/19 Range/Units 07:51 07:51 09:05 RBC (3.80-5.40) m/uL Hgb (11.4-16.0) gm/dL Hct (34.0-46.0) % Potassium 3.3 L (3.5-5.1) mmol/L BUN 78 H (7-17) mg/dL Creatinine 9.25 H* (0.52-1.04) mg/dL Glucose 108 H (74-99) mg/dL Calcium 5.7 L* (8.4-10.2) mg/dL AST 13 L (14-36) U/L Total Protein 5.8 L (6.3-8.2) g/dL Albumin 3.1 L (3.5-5.0) g/dL Vitamin D 25-Hydroxy 17.0 L (30.0-100.0) ng/mL PTH Intact 324.2 H (14.0-72.0) pg/mL 01/01/19 Range/Units 09:05 RBC 2.44 L (3.80-5.40) m/uL Hgb 7.2 L (11.4-16.0) gm/dL Hct 21.7 L (34.0-46.0) % Potassium (3.5-5.1) mmol/L BUN (7-17) mg/dL Creatinine (0.52-1.04) mg/dL Glucose (74-99) mg/dL Calcium (8.4-10.2) mg/dL AST (14-36) U/L Total Protein (6.3-8.2) g/dL Albumin (3.5-5.0) g/dL Vitamin D 25-Hydroxy (30.0-100.0) ng/mL PTH Intact (14.0-72.0) pg/mL Assessment and Plan Assessment: -renal failure: Mostly from chronic kidney disease stage V which is again secondary to focal segmental nephrosclerosis, there may be a component of acute renal failure and to prerenal azotemia because of which patient was started on IV fluids. IV fluids have been transition to dextrose/water with sodium bicarbonate at 100 mL per hour. Nephrology is following closely and if lab values don't improve patient may need possible dialysis. -Metabolic acidosis secondary to uremia and the patient was started on sodium bicarbonate drip as per nephrology, and lisinopril was discontinued. Patient was started on Norvasc 5 mg daily -Hypertension secondary to focal segmental nephrosclerosis patient was started on amlodipine. Will continue to monitor. -leukocytosis reactive -Anemia, Chronic: Probably anemia of chronic kidney disease. ferritin and iron saturation will be obtained. Ferritin is 88.5 and iron saturation is slightly l ow at 10.17. Patient is receiving ferric sodium gluconate infusions daily -DVT prophylaxis early ambulation
[2019-01-01] MEDS: SODIUM CHLORIDE 0.9% 1,000 ML IV SCH (15:40)
--- NOTE | 2019-01-01 16:58 | PN ---
PROGRESS NOTE Patient is seen for followup for advanced renal failure. She has been maintained on IV fluids since admission for possible improvement in renal function for an element of acute kidney injury. Serum creatinine did go down slightly but not significantly. Creatinine went down from 10.1 to about 9.5 mg/dL. Today it is 9.2. The patient does not have any significant symptoms. She is maintained on IV fluids. I have discussed with her that if her renal function does not improve further, she will need to start dialysis and we can always continue to monitor for recovery of renal function as outpatient. PHYSICAL EXAMINATION: On examination today, blood pressure was 161/90, heart rate 77 per minute, patient appeared to be euvolemic with no evidence of edema in her lower extremities. LAB DATA: Show sodium 141, potassium 3.3, chloride 105, BUN 78, serum creatinine 9.25, calcium of 5.7. ASSESSMENT: 1. 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 Serum creatinine showing no significant improvement with fluids for about 3 days now. The patient has been advised that we will need to start renal replacement therapy. We will also continue to monitor for recovery of renal function even after she starts dialysis. We will need to arrange for outpatient dialysis as well. 2. Hypocalcemia associated with nutritional vitamin D deficiency. We will start Drisdol and calcium supplements. The patient's phosphate binder is also calcium based, which should help with the hypocalcemia. 3. Chronic kidney disease, mineral bone disorder. PTH at target range for end-stage renal disease. Add Rocaltrol if calcium remains low. 4. Metabolic acidosis associated with advanced renal failure now improved with IV bicarb. 5. Anemia with severe iron deficiency noted. PLAN: DC IV bicarb. Start dialysis. We will proceed with consult with vascular surgery and plan for first treatment possibly tomorrow. Consult Discharge Planning to set up outpatient dialysis. Add Tums and repeat labs in a.m. Replace potassium. I will discontinue the iron as patient has stated that she gets lightheaded and dizzy with the iron infusions. MMODL / IJN: [id number] /
[2019-01-01] MEDS ORDERED: IV FLUID CONTINUATION 900 ML IV ONE (18:21)
[2019-01-01] MEDS ORDERED: MIDAZOLAM PF (FBP) 2 MG/2 ML VIAL IV ONE (18:30)
[2019-01-01] MEDS ORDERED: LIDOCAINE 1% INJ 10MG/ML (20 ML MDV) SQ ONE ×2 (18:33→18:53)
[2019-01-01] MEDS ORDERED: fentaNYL (PF) 50 MCG/ML 2 ML AMP IV ONE (18:41)
--- NOTE | 2019-01-01 20:55 | CONS ---
CONSULTATION This is a 38-year-old female with history of high BUN and creatinine. The patient has a history of chronic kidney disease. Patient is scheduled to have a dialysis catheter. MEDICAL HISTORY: History of hypertension and chronic renal failure. SURGICAL HISTORY: in the past. PHYSICAL EXAMINATION: NECK: Supple. Trachea central. CHEST: Clear. ABDOMEN: Soft. Femoral pulses are present. PLAN: Placement of dialysis catheter. Risks and complications were discussed. MMODL / IJN: [id number] /
[2019-01-02 04:54] LABS: Hepatitis B Core IgM Non-Reactive (Non-Reactive); Hepatitis B Surface AB- Quant 21.9 mIU/mL; Hepatitis B Surface Antibody Reactive (Non-Reactive); Hepatitis B Surface Antigen Non-Reactive (Non-Reactive)
--- NOTE | 2019-01-02 07:35 | PCN ---
PROCEDURE NOTE PREOPERATIVE DIAGNOSIS: Acute on chronic renal failure. PROCEDURE: Ultrasound-guided micropuncture right internal jugular vein. Micropuncture guidewire was passed and 4-Salvadorean dilator on top of the guidewire. Then we passed the regular guidewire which was parked in the inferior vena cava. After that, a tunnel was created. Through the tunnel we brought 19 cm dialysis catheter. The dilator was advanced on the top of the guidewire. Then, sheath was advanced. Through the sheath, we introduced the dialysis catheter. Tip of the catheter in superior vena cava and atrium, flushed with heparin saline and hep-locked. The incision was closed with Vicryl and nylon. Patient tolerated the procedure well. Sedation time is 25 minutes. MMODL / IJN: [id number] /
[2019-01-02 08:36] LABS: Basophils % (A) 1 %; Eosinophils # (A) 0.2 k/uL (0-0.7); Eosinophils % (A) 2 %; HCT 22.1 % (34.0-46.0); HGB 7.3 gm/dL (11.4-16.0); Hypochromasia Slight; Lymphocytes # (A) 1.4 k/uL (1.0-4.8); Lymphocytes % (A) 17 %; MCH 29.9 pg (25.0-35.0); MCHC 33.1 g/dL (31.0-37.0); MCV 90.4 fL (80.0-100.0); Mean Platelet Volume 7.2; Monocytes # (A) 0.3 k/uL (0-1.0); Monocytes % (A) 3 %; Neutrophils # (A) 6.6 k/uL (1.3-7.7); Neutrophils % (A) 76 %; Platelet Count 164 k/uL (150-450); RBC 2.45 m/uL (3.80-5.40); WBC 8.7 k/uL (3.8-10.6)
[2019-01-02 08:48] LABS: Albumin 3.3 g/dL (3.5-5.0); Potassium 3.9 mmol/L (3.5-5.1); Total Bilirubin 0.3 mg/dL (0.2-1.3); Total Protein 6.3 g/dL (6.3-8.2)
[2019-01-02 08:54] LABS: Calcium 5.9 mg/dL (8.4-10.2)
[2019-01-02] MEDS: amLODIPine 5 MG TAB PO SCH (09:13)
[2019-01-02] MEDS: CALCIUM ACETATE 667 MG CAP PO SCH ×3 (09:13→17:25)
[2019-01-02] MEDS: CALCIUM CARBONATE 500 MG CHEWABLE PO SCH ×2 (09:13→19:28)
[2019-01-02] MEDS: SODIUM CHLORIDE 0.9% 1,000 ML IV SCH (09:13)
[2019-01-02] MEDS: CARVEDILOL 12.5 MG TAB PO SCH ×2 (09:13→17:25)
--- NOTE | 2019-01-02 09:21 | IR ---
EXAMINATION TYPE: IR cvc insert central tunneled DATE OF EXAM: 01/01/2019 COMPARISON: NONE HISTORY: Fluoroscopy time. Fluoroscopy was provided to the referring clinician.
[2019-01-02 13:32] LABS: Hepatitis BE Antigen NEG (Negative)
[2019-01-02 13:33] LABS: Hepatitis BE Antibody NEG (Negative)
--- NOTE | 2019-01-02 14:31 | P.PN ---
Subjective Progress Note Date: 01/02/19 Principal diagnosis: 38-year-old pleasant female was sent in after she was found to have critically high creatinine of 10 on routine labs. Patient denied any symptoms of fatigue nausea vomiting. Patient has diagnosed of focal segmental sclerosis which was diagnosed with biopsy for 15 years ago does urinate well. Patient denied any dysuria or increased urinary frequency urine is bit abnormal with leukocytes although patient has a symptom any bacteria will not require any antibiotics that. Nephrology valid to the patient patient was started on normal saline. Lisinopril was discontinued patient was started on amlodipine because of elevated blood pressure and plan is to monitor her for next couple days with close creatinine monitoring with IV fluids and there is no improvement at that time nephrology will plan on dialysis, patient was started on IV sodium bicarbonate drip 12/31/2018 Patient is sitting up in bed in no acute distress with at the bedside. Patient is being followed closely by nephrology. Creatinine today is 9.55 and will be closely monitored. Patient is currently still on IV fluids but was changed from normal saline to dextrose with sodium bicarbonate. Patient continues to have high blood pressure and per nephrology recommendations patient was started on Norvasc and will continue to monitor. Patient denies any shortness of breath, chest pain, or palpitations at this time. Patient is afebrile. Patient denies any nausea or vomiting and has been tolerating diet. 01/01/2019 Patient is sitting up in bed in no acute distress. No acute overnight issues. Patient had an iron infusion yesterday and states that she felt lightheaded and dizzy like she was going to pass out but when she lied down in the bed she felt better and the infusion was complete. Will continue to monitor closely. Patient is receiving another infusion today and tolerating well. Patient's creatinine today is 9.25. Patient's potassium was 3.3 today and was replaced. Nephrology is following closely. Patient denies any chest pain, shortness of breath, or palpitations at this time. Patient is afebrile. Patient is tolerating diet with no complaints of nausea or vomiting. Awaiting further recommendations from nephrology for possible dialysis. Guarded prognosis. 01/02/2019 Patient is sitting up at the site of the bed in no acute distress. is at the bedside. No acute overnight issues. Yesterday patient was seen by Dr. Ezra for permacath placement for dialysis. Nephrology is following closely. Patient states that she is supposed to receive dialysis today. Permacath noted on the right side IJ. Patient states that she tolerated the procedure well and is not having any discomfort at the site at this time. Will continue to monitor closely. Patient's creatinine this morning was 8.94. Potassium was replaced yesterday and is currently 3.9. Case management was consulted to arrange for outpatient hemodialysis. Objective - Vital Signs Vital signs: Vital Signs Temp 98.6 F 01/02/19 11:47 Pulse 76 01/02/19 11:47 Resp 16 01/02/19 11:47 BP 141/85 01/02/19 11:47 Pulse Ox 97 01/02/19 11:47 Intake & Output 01/01/19 01/02/19 01/02/19 18:59 06:59 18:59 Intake Total 1000 2280 Balance 1000 2280 Intake: IV 200 Intake, IV Titration 800 600 Amount Dextrose 5% in Water 1, 700 000 ml @ 100 mls/hr IV . [id number] VANESSA with Sodium Bicarb (1 Meq/ml) 150 ml Rx#:[id number] Sodium Chloride 0.9% 1, 600 000 ml @ 50 mls/hr IV . Q20H VANESSA Rx#:[id number] Sodium Ferric Gluconat- 100 Sucrose 125 mg In Sodium Chloride 0.9% 100 ml @ 100 mls/hr IVPB DAILY VANESSA Rx#:[id number] Oral 1680 Other: Voiding Method Toilet Toilet Toilet # Voids 1 3 - Exam GENERAL: The patient is alert and oriented x3, not in any acute distress. Well developed, well nourished. HEENT: Pupils are round and equally reacting to light. EOMI. No scleral icterus. No conjunctival pallor. Normocephalic, atraumatic. No pharyngeal erythema. No thyromegaly. NECK: Right IJ permacath noted with dressing over the site that is dry and intact. CARDIOVASCULAR: S1 and S2 present. No murmurs, rubs, or gallops. PULMONARY: Chest is clear to auscultation, no wheezing or crackles. ABDOMEN: Soft, obese, nontender, nondistended, normoactive bowel sounds. No palpable organomegaly. MUSCULOSKELETAL: No joint swelling or deformity. EXTREMITIES: No cyanosis, clubbing, or pedal edema. NEUROLOGICAL: Gross neurological examination did not reveal any focal deficits. SKIN: No rashes. - Labs CBC & Chem 7: 01/02/19 08:07 01/02/19 08:07 Labs: Abnormal Lab Results - Last 24 Hours (Table) 01/01/19 01/02/19 01/02/19 Range/Units 09:05 08:07 08:07 RBC 2.45 L (3.80-5.40) m/uL Hgb 7.3 L (11.4-16.0) gm/dL Hct 22.1 L (34.0-46.0) % BUN 75 H (7-17) mg/dL Creatinine 8.94 H* (0.52-1.04) mg/dL Glucose 118 H (74-99) mg/dL Calcium 5.9 L* (8.4-10.2) mg/dL Albumin 3.3 L (3.5-5.0) g/dL Hep Bs Antibody Reactive H (Non-Reactive) Assessment and Plan Assessment: -renal failure: Mostly from chronic kidney disease stage V which is again secondary to focal segmental nephrosclerosis, there may be a component of acute renal failure and to prerenal azotemia because of which patient was started on IV fluids. IV fluids have been discontinued. Patient received a right IJ permacath from vascular surgery yesterday and will be starting hemodialysis today. -Metabolic acidosis secondary to uremia and the patient was started on sodium bicarbonate drip as per nephrology, and lisinopril was discontinued. Patient was started on Norvasc 5 mg daily -Hypertension secondary to focal segmental nephrosclerosis patient was started on amlodipine. Will continue to monitor. -leukocytosis reactive -Anemia, Chronic: Probably anemia of chronic kidney disease. ferritin and iron saturation will be obtained. Ferritin is 88.5 and iron saturation is slightly low at 10.17. Patient is receiving ferric sodium gluconate infusions daily. Iron infusions discontinued due to patient's reports of lightheaded and dizziness. Nephrology is following. -DVT prophylaxis early ambulation
--- NOTE | 2019-01-02 15:52 | PN ---
PROGRESS NOTE Patient is seen for followup for renal failure with a possibly a component of acute kidney injury as well. However, renal function has not improved significantly over the past 4 to 5 days since patient has been maintained on IV fluids. She did get an IJ PermCath yesterday and the plan is to proceed with dialysis today. Serum creatinine is down to 8.9 today which, although it is lower than 10.1 on initial admission, it is not a significant drop. I will proceed with dialysis today and we will continue to monitor for recovery of renal function. On examination this morning, blood pressure was 161/101, heart rate 76 per minute. Patient is afebrile. EXAMINATION OF THE HEART: S1 and S2. EXAMINATION OF LUNGS: Bilateral breath sounds are heard. ABDOMEN: Soft, non-tender. Examination of lower extremities shows no evidence of edema. DESIGN ASSEMBLER exam is grossly intact. Labs show hemoglobin 7.3, sodium 139, potassium 3.9, BUN 75, serum creatinine 8.9. Calcium is 5.9. ASSESSMENT: 1. Chronic kidney disease with advanced renal failure with possibly a component of acute kidney injury, currently maintained on IV fluids. Since renal function has not improved significantly we will proceed with dialysis. Patient will have her first treatment today. I will hold off on dialysis over the weekend and we will plan to dialyze her again on Saturday, depending on her labs. I have advised the patient that we will continue to monitor for recovery of renal function even as outpatient. In the meantime, it is better that she is set up for outpatient dialysis. 2. Chronic kidney disease mineral bone disorder with hypocalcemia and nutritional vitamin D deficiency, maintained on Drisdol, calcium supplements. PTH is within range for her stage of CKD. 3. Anemia with severe iron deficiency, status post IV iron; maintained on Aranesp as well. 4. Hypertension. Patient is on amlodipine and Coreg, both of which can be increased if patient remains hypertensive. 5. Severe metabolic acidosis, currently improved. Patient is status post IV bicarb. PLAN: Discontinue normal saline. Hemodialysis today, and then next dialysis will be on Saturday. Continue with the phosphate binders and Aranesp and arrange for outpatient dialysis. MMODL / IJN: [id number] /
[2019-01-03 08:06] LABS: Basophils # (A) 0.1 k/uL (0-0.2); Basophils % (A) 1 %; Eosinophils # (A) 0.2 k/uL (0-0.7); Eosinophils % (A) 3 %; HCT 23.1 % (34.0-46.0); HGB 7.1 gm/dL (11.4-16.0); Lymphocytes # (A) 1.5 k/uL (1.0-4.8); Lymphocytes % (A) 19 %; MCH 28.5 pg (25.0-35.0); MCHC 30.9 g/dL (31.0-37.0); MCV 92.1 fL (80.0-100.0); Mean Platelet Volume 7.7; Monocytes # (A) 0.4 k/uL (0-1.0); Monocytes % (A) 5 %; Neutrophils # (A) 5.7 k/uL (1.3-7.7); Neutrophils % (A) 71 %; Platelet Count 159 k/uL (150-450); RDW 15.2 % (11.5-15.5)
[2019-01-03 08:35] LABS: Albumin 3.2 g/dL (3.5-5.0); Calcium 6.7 mg/dL (8.4-10.2); Total Bilirubin 0.4 mg/dL (0.2-1.3); Total Protein 6.1 g/dL (6.3-8.2)
[2019-01-03] MEDS: amLODIPine 5 MG TAB PO SCH (09:24)
[2019-01-03] MEDS: CARVEDILOL 12.5 MG TAB PO SCH ×2 (09:24→16:44)
[2019-01-03] MEDS: CALCIUM ACETATE 667 MG CAP PO SCH ×3 (09:24→16:44)
[2019-01-03] MEDS: CALCIUM CARBONATE 500 MG CHEWABLE PO SCH ×2 (09:24→22:10)
--- NOTE | 2019-01-03 10:30 | P.PN ---
Subjective 38-year-old pleasant female was sent in after she was found to have critically high creatinine of 10 on routine labs. Patient denied any symptoms of fatigue nausea vomiting. Patient has diagnosed of focal segmental sclerosis which was diagnosed with biopsy for 15 years ago does urinate well. Patient denied any dysuria or increased urinary frequency urine is bit abnormal with leukocytes although patient has a symptom any bacteria will not require any antibiotics that. Nephrology valid to the patient patient was started on normal saline. L isinopril was discontinued patient was started on amlodipine because of elevated blood pressure and plan is to monitor her for next couple days with close creatinine monitoring with IV fluids and there is no improvement at that time nephrology will plan on dialysis, patient was started on IV sodium bicarbonate drip 12/31/2018 Patient is sitting up in bed in no acute distress with at the bedside. Patient is being followed closely by nephrology. Creatinine today is 9.55 and will be closely monitored. Patient is currently still on IV fluids but was changed from normal saline to dextrose with sodium bicarbonate. Patient continues to have high blood pressure and per nephrology recommendations patient was started on Norvasc and will continue to monitor. Patient denies any shortness of breath, chest pain, or palpitations at this time. Patient is afebrile. Patient denies any nausea or vomiting and has been tolerating diet. 01/01/2019 Patient is sitting up in bed in no acute distress. No acute overnight issues. Patient had an iron infusion yesterday and states that she felt lightheaded and dizzy like she was going to pass out but when she lied down in the bed she felt better and the infusion was complete. Will continue to monitor closely. Patient is receiving another infusion today and tolerating well. Patient's creatinine today is 9.25. Patient's potassium was 3.3 today and was replaced. Nephrology is following closely. Patient denies any chest pain, shortness of breath, or palpitations at this time. Patient is afebrile. Patient is tolerating diet with no complaints of nausea or vomiting. Awaiting further recommendations from nephrology for possible dialysis. Guarded prognosis. 01/02/2019 Patient is sitting up at the site of the bed in no acute distress. is at the bedside. No acute overnight issues. Yesterday patient was seen by Dr. Flora benitez for permacath placement for dialysis. Nephrology is following closely. Patient states that she is supposed to receive dialysis today. Permacath noted on the right side IJ. Patient states that she tolerated the procedure well and is not having any discomfort at the site at this time. Will continue to monitor closely. Patient's creatinine this morning was 8.94. Potassium was replaced y esterday and is currently 3.9. Case management was consulted to arrange for outpatient hemodialysis. 01/03/2019 Patient had hemodialysis yesterday with improvement in serum creatinine. Patient is feeling better. No night events. Constitutional: Denied any fatigue denied any fever. Cardio vascular: denied any chest pain, palpitations Gastrointestinal denied any nausea vomiting Pulmonary: Denied any shortness of breath cough Neurologic denied any new focal deficits All inpatient medications were reviewed and appropriate changes in these medications as dictated in the interval history and assessment and plan. Objective - Vital Signs Vital signs: Vital Signs Temp 98 F 01/03/19 05:00 Pulse 86 01/03/19 05:00 Resp 18 01/03/19 05:00 BP 168/94 01/03/19 05:00 Pulse Ox 97 01/03/19 05:00 Intake & Output 01/02/19 01/03/19 01/03/19 18:59 06:59 18:59 Other: Voiding Method Toilet Toilet Toilet # Voids 3 1 - Exam GENERAL: The patient is alert and oriented x3, not in any acute distress. Well developed, well nourished. HEENT: Pupils are round and equally reacting to light. EOMI. No scleral icterus. No conjunctival pallor. Normocephalic, atraumatic. No pharyngeal erythema. No thyromegaly. NECK: Right IJ permacath noted with dressing over the site that is dry and intact. CARDIOVASCULAR: S1 and S2 present. No murmurs, rubs, or gallops. PULMONARY: Chest is clear to auscultation, no wheezing or crackles. ABDOMEN: Soft, obese, nontender, nondistended, normoactive bowel sounds. No palpable organomegaly. MUSCULOSKELETAL: No joint swelling or deformity. EXTREMITIES: No cyanosis, clubbing, or pedal edema. NEUROLOGICAL: Gross neurological examination did not reveal any focal deficits. SKIN: No rashes. - Labs CBC & Chem 7: 01/03/19 07:33 01/03/19 07:33 Labs: Abnormal Lab Results - Last 24 Hours (Table) 01/03/19 01/03/19 Range/Units 07:33 07:33 RBC 2.50 L (3.80-5.40) m/uL Hgb 7.1 L (11.4-16.0) gm/dL Hct 23.1 L (34.0-46.0) % MCHC 30.9 L (31.0-37.0) g/dL BUN 56 H (7-17) mg/dL Creatinine 7.41 H* (0.52-1.04) mg/dL Calcium 6.7 L (8.4-10.2) mg/dL Total Protein 6.1 L (6.3-8.2) g/dL Albumin 3.2 L (3.5-5.0) g/dL Assessment and Plan Plan: renal failure: Mostly from chronic kidney disease stage V which is again secondary to focal segmental nephrosclerosis, patient was initiated on hemodialysis had hemanalysis yesterday 1 more today. Patient's serum creatinine improved. Patient probably will be discharged on Saturday after sitting of hemodialysis as an outpatient -Metabolic acidosis secondary to uremia and the patient was started on sodium bicarbonate drip as per nephrology, and lisinopril was discontinued -Hypertension secondary to focal segmental nephrosclerosis patient is on amlodipine. -leukocytosis reactive -Anemia, Chronic: Probably anemia of chronic kidney disease ferritin an iron saturation will be obtained. -Due to prophylaxis early ambulation
--- NOTE | 2019-01-03 13:51 | PN ---
PROGRESS NOTE Patient is seen for followup for advanced renal failure, acute on top of chronic. The patient was started on dialysis yesterday. She states she feels fairly well. Creatinine is 7.4 today. However, it is also down because of the dialysis. We will monitor her over the weekend and repeat labs tomorrow as well as in a.m. If there is no significant improvement in renal function, patient will continue with outpatient dialysis. PHYSICAL EXAMINATION: On examination, blood pressure 168/94, heart rate 86 per minute. Patient is afebrile. EXAMINATION OF THE HEART: S1, S2. EXAMINATION OF THE LUNGS: Bilateral breath sounds are heard. Abdomen is soft, nontender. Examination of lower extremities shows no significant edema. PACKING TRACTOR MACHINE OPERATOR EXAM: Grossly intact. LABS: Labs show sodium 140, potassium 4.0, BUN 56 serum creatinine 7.4, hemoglobin 7.1 g/dL. ASSESSMENT: 1. Acute kidney injury on top of chronic kidney disease, status post first treatment of hemodialysis. We will continue to monitor over the weekend and decide on Saturday regarding outpatient dialysis. Currently patient is set up at [facility]. We can also monitor for recovery of renal function as outpatient. 2. Anemia, status post IV iron, maintained on Aranesp. 3. Hypertension, maintained on Coreg and Norvasc. If patient continues with dialysis, we can add HOSEA inhibitor/angiotensin receptor blockers. 4. Chronic kidney disease mineral bone disorder, currently on PhosLo. 5. Hypocalcemia associated with nutritional vitamin D deficiency and secondary hyperparathyroidism, maintained on Tums and oral vitamin D. PLAN: Hold hemodialysis over the weekend. Repeat labs tomorrow and on Saturday. MMODL / IJN: [id number] /
[2019-01-04 07:13] LABS: Basophils # (A) 0.1 k/uL (0-0.2); Basophils % (A) 1 %; Eosinophils # (A) 0.2 k/uL (0-0.7); Eosinophils % (A) 2 %; HCT 23.2 % (34.0-46.0); HGB 7.3 gm/dL (11.4-16.0); Hypochromasia Slight; Lymphocytes # (A) 1.2 k/uL (1.0-4.8); Lymphocytes % (A) 13 %; MCH 29.7 pg (25.0-35.0); MCHC 31.3 g/dL (31.0-37.0); MCV 94.9 fL (80.0-100.0); Mean Platelet Volume 8.1; Monocytes # (A) 0.4 k/uL (0-1.0); Monocytes % (A) 4 %; Neutrophils # (A) 7.4 k/uL (1.3-7.7); Neutrophils % (A) 79 %; Platelet Count 163 k/uL (150-450); RBC 2.45 m/uL (3.80-5.40); RDW 15.1 % (11.5-15.5); WBC 9.4 k/uL (3.8-10.6)
[2019-01-04 07:28] LABS: Albumin 3.2 g/dL (3.5-5.0); Calcium 6.8 mg/dL (8.4-10.2); Potassium 3.9 mmol/L (3.5-5.1); Total Bilirubin 0.4 mg/dL (0.2-1.3); Total Protein 6.2 g/dL (6.3-8.2)
[2019-01-04] MEDS: amLODIPine 5 MG TAB PO SCH (07:58)
[2019-01-04] MEDS: CALCIUM CARBONATE 500 MG CHEWABLE PO SCH (07:58)
[2019-01-04] MEDS: CARVEDILOL 12.5 MG TAB PO SCH ×2 (07:58→14:52)
[2019-01-04] MEDS: CALCIUM ACETATE 667 MG CAP PO SCH ×2 (07:58→12:49)
[2019-01-04 11:58] VITALS: BP 157/91; PULSE 79; RESP 16; TEMP 98.3
[2019-01-04] MEDS: ERGOCALCIFEROL 50,000 UNIT CAP PO SCH (12:49)
--- NOTE | 2019-01-04 13:01 | PN ---
PROGRESS NOTE Patient is seen for followup for end-stage renal disease. She was started on dialysis this admission. Serum creatinine has started to decrease, however, it has gone up again to 8.5. The patient received one treatment of hemodialysis. She is considering going home. She is set up as outpatient to start tomorrow at the [facility] unit. I did check with the unit staff and it appears that the patient can come there tomorrow as outpatient. PHYSICAL EXAMINATION: This morning blood pressure was 147/87, heart rate 85 per minute, she is afebrile. Examination of the heart, S1 and S2. Examination of lungs, bilateral breath sounds are heard. Abdomen is soft, nontender. Examination of lower extremities shows no evidence of edema. PSYCHIATRIC NURSING AIDE exam grossly intact. LAB: Show sodium 141, potassium 3.9, hemoglobin 7.3 g/dL. ASSESSMENT: 1. Advanced renal failure, most likely end-stage renal disease. We will arrange for hemodialysis to be continued and continue to monitor for possible recovery of kidney function as outpatient. 2. Hypertension, controlled. 3. Metabolic acidosis, now resolved. 4. Chronic kidney disease mineral bone disorder with hypocalcemia, hyperphosphatemia and hyperparathyroidism maintained on vitamin D2. Continue with PhosLo and Tums for now. 5. Anemia of chronic disease, maintained on Aranesp, status post IV iron for 2 doses. PLAN: Patient can be discharged and she can follow up as outpatient for hemodialysis tomorrow. She is advised to call the unit at 8:00. Her chair time is around 11. ABDOUL / KENNEY: [id number] /
--- NOTE | 2019-01-04 13:43 | P.DS ---
Providers Date of admission: 12/30/18 03:14 Attending physician: Joao Chase Consults: 12/30/18 03:14 Consult Physician Stat Consulting Provider: Analisa Cruz Consult Reason/Comments: acute renal failure Do you want consulting provider notified?: Yes, Notify in am 01/01/19 11:29 Consult Physician Routine Consulting Provider: Cm Munguia Consult Reason/Comments: for IJ permacath placement for hemodialysis- may place today or tomorrow Do you want consulting provider notified?: Yes Primary care physician: Alia [facility] Course: 38-year-old pleasant female was sent in after she was found to have critically high creatinine of 10 on routine labs. Patient denied any symptoms of fatigue nausea vomiting. Patient has diagnosed of focal segmental sclerosis which was diagnosed with biopsy for 15 years ago does urinate well. Patient denied any dysuria or increased urinary frequency urine is bit abnormal with leukocytes although patient has a symptom any bacteria will not require any antibiotics that. Nephrology valid to the patient patient was started on normal saline. Lisinopril was discontinued patient was started on amlodipine because of elevated blood pressure and plan is to monitor her for next couple days with close creatinine monitoring with IV fluids and there is no improvement at that time nephrology will plan on dialysis, patient was started on IV sodium bicarbonate drip 12/31/2018 Patient is sitting up in bed in no acute distress with at the bedside. Patient is being followed closely by nephrology. Creatinine today is 9.55 and will be closely monitored. Patient is currently still on IV fluids but was changed from normal saline to dextrose with sodium bicarbonate. Patient continues to have high blood pressure and per nephrology recommendations patient was started on Norvasc and will continue to monitor. Patient denies any shortness of breath, chest pain, or palpitations at this time. Patient is afebrile. Patient denies any nausea or vomiting and has been tolerating diet. 01/01/2019 Patient is sitting up in bed in no acute distress. No acute overnight issues. Patient had an iron infusion yesterday and states that she felt lightheaded and dizzy like she was going to pass out but when she lied down in the bed she felt better and the infusion was complete. Will continue to monitor closely. Patient is receiving another infusion today and tolerating well. Patient's creatinine today is 9.25. Patient's potassium was 3.3 today and was replaced. Nephrology is following closely. Patient denies any chest pain, shortness of breath, or palpitations at this time. Patient is afebrile. Patient is tolerating diet with no complaints of nausea or vomiting. Awaiting further recommendations from nephrology for possible dialysis. Guarded prognosis. 01/02/2019 Patient is sitting up at the site of the bed in no acute distress. is at the bedside. No acute overnight issues. Yesterday patient was seen by Dr. Munguia for permacath placement for dialysis. Nephrology is following closely. Patient states that she is supposed to receive dialysis today. Permacath noted on the right side IJ. Patient states that she tolerated the procedure well and is not having any discomfort at the site at this time. Will continue to monitor closely. Patient's creatinine this morning was 8.94. Potassium was replaced yesterday and is currently 3.9. Case management was consulted to arrange for outpatient hemodialysis. 01/03/2019 Patient had hemodialysis yesterday with improvement in serum creatinine. Patient is feeling better. 01/04/2019 Patient's hemodialysis was set up as an outpatient patient will be discharged today. Cleared by nephrology. PHYSICAL EXAMINATION: GENERAL: The patient is alert and oriented x3, not in any acute distress. Well developed, well nourished. HEENT: Pupils are round and equally reacting to light. EOMI. No scleral icterus. No conjunctival pallor. Normocephalic, atraumatic. No pharyngeal erythema. No thyromegaly. CARDIOVASCULAR: S1 and S2 present. No murmurs, rubs, or gallops. PULMONARY: Chest is clear to auscultation, no wheezing or crackles. ABDOMEN: Soft, nontender, nondistended, normoactive bowel sounds. No palpable organomegaly. MUSCULOSKELETAL: No joint swelling or deformity. EXTREMITIES: No cyanosis, clubbing, or pedal edema. NEUROLOGICAL: Gross neurological examination did not reveal any focal deficits. SKIN: No rashes. 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 Patient was in nature hemodialysis is being discharged today -Metabolic acidosis secondary to uremia patient will be discharged on oral sodium bicarbonate -Hypertension secondary to focal segmental nephrosclerosis patient is on amlodipine. -leukocytosis reactive -Anemia, Chronic: Probably anemia of chronic kidney disease Patient Condition at Discharge: Serious Plan - Discharge Summary Discharge Rx Participant: No New Discharge Prescriptions: New Carvedilol [Coreg*] 12.5 mg PO BID-W/MEALS #60 tab amLODIPine [Norvasc] 5 mg PO DAILY #30 tab Calcium Acetate [PhosLo] 667 mg PO TID-W/MEALS #90 cap Calcium Carbonate [Tums] 500 mg PO BID #60 chew Discontinued Lisinopril [Zestril] 10 mg PO DAILY Potassium 99 mg PO DAILY PRN PRN Reason: LEG CRAMPS Discharge Medication List Calcium Acetate [PhosLo] 667 mg PO TID-W/MEALS #90 cap 01/04/19 [Rx] Calcium Carbonate [Tums] 500 mg PO BID #60 chew 01/04/19 [Rx] Carvedilol [Coreg*] 12.5 mg PO BID-W/MEALS #60 tab 01/04/19 [Rx] amLODIPine [Norvasc] 5 mg PO DAILY #30 tab 01/04/19 [Rx] Follow up Appointment(s)/Referral(s): Alia Keita MD [Primary Care Provider] - 3 Days Patient Instructions/Handouts: Amlodipine (By mouth), Carvedilol (By mouth), Calcium Acetate (By mouth), Antacid, Calcium and Magnesium (By mouth), Acute Kidney Injury (DC), Urinary Tract Infection in Women (DC), Dialysis Diet (DC), Tunneled Central Lines in Adult (DC), Hemodialysis (DC) Activity/Diet/Wound Care/Special Instructions: Please contact the Dialysis Center in [place], [place] first thing Saturday morning to confirm your appointment time. The phone number is . Discharge Disposition: HOME SELF-CARE
== END 2019-01-04 15:03 | disposition home or self-care (01) | DRG 674 ==
LOC: EC 23:15 → 3NMEDONC 12-30 03:14
PROVIDERS: ADMIT Hospitalist; ATTEND Hospitalist
PROC: 02HV33Z Insertion of Infusion Device into Superior Vena Cava, Percutaneous Approach (ICD-10-PCS; principal; 2019-01-01 18:20)
PROC: 0JH63XZ Insertion of Tunneled Vascular Access Device into Chest Subcutaneous Tissue and Fascia, Percutaneous Approach (ICD-10-PCS; 2019-01-01 18:20)
PROC: 5A1D70Z Performance of Urinary Filtration, Intermittent, Less than 6 Hours Per Day (ICD-10-PCS; 2019-01-02)
DX: N17.9 Acute kidney failure, unspecified (principal); I12.0 Hypertensive chronic kidney disease with stage 5 chronic kidney disease or end stage renal disease; E87.2 Acidosis; N39.0 Urinary tract infection, site not specified; N18.6 End stage renal disease; N25.81 Secondary hyperparathyroidism of renal origin; D50.9 Iron deficiency anemia, unspecified; D63.1 Anemia in chronic kidney disease; E83.39 Other disorders of phosphorus metabolism; E83.51 Hypocalcemia; M89.9 Disorder of bone, unspecified; Z79.899 Other long term (current) drug therapy; Z82.49 Family history of ischemic heart disease and other diseases of the circulatory system; Z87.891 Personal history of nicotine dependence; D72.828 Other elevated white blood cell count; Z88.1 Allergy status to other antibiotic agents; Z88.7 Allergy status to serum and vaccine
CPT/HCPCS: 36415; 36571; 76770; 76937; 77001; 80053; 81001; 81025; 82306; 82728; 83540; 83550; 83970; 84100; 85025; 86704; 86705; 86706; 86707; 87340; 87350; 90935; 93005; 96361; 96365; 96375; 99284

== ENCOUNTER 2019-01-27 11:42 | Day surgery (SDC) | payer OTHER ==
[2019-01-26 09:04] VITALS: BMI 38.9
[~2019-01-27 11:42] MED LIST changes: +DEXAMETHASONE SOD PHOSPHATE 10 MG/ML 1 ML VIAL IV ONE; +HEPARIN SODIUM,PORCINE 5,000 UNIT/ML 1 ML VIAL SQ ONE; +HYDROmorphone 0.5 MG/0.5 ML SYRINGE IVP PRN; +LIDOCAINE 1% 20 ML VIAL (10MG/ML) FOR IV START INTRADERMA PRN; +MIDAZOLAM 2 MG/2 ML VIAL IV PRN; +ONDANSETRON 4 MG/2 ML VIAL IVP ONE; +SCOPOLAMINE 1.5MG/72HR PATCH TRANSDERM ONE
[2019-01-27] MEDS ORDERED: SODIUM CHLORIDE 0.9% 250 ML IV ONE ×2 (12:18)
[2019-01-27] MEDS ORDERED: fentaNYL (PF) 50 MCG/ML 2 ML AMP IVP ONE (12:23)
--- NOTE | 2019-01-27 12:30 | P.ANPRN ---
Procedure Note - Anesthesia - Nerve Block Performed Bilateral Rectus Abdominis Single Time Out Performed: Yes Date of Procedure: 01/27/19 Procedure Start Time: Procedure Stop Time: Location of Patient Procedure: PreOp Indication: Acute Post-Operative Pain, Requested by Surgeon Sedation Type: Sedate with meaningful contact maintained Position: Supine Catheter: None Needle Types: Pajunk Needle Gauge: 21 Ultrasound used to visualize needle placement: Yes Ultrasound used to observe medication spread: Yes Injectate: 0.5% Ropivacaine (see comment for volume) (20 ml + decadron 2mg per side) Blood Aspirated: No Pain Paresthesia on Injection Noted: No Resistance on Injection: Normal Image Stored and Saved: Yes Events: Uneventful and Well Tolerated
[2019-01-27 12:34] LABS: Basophils % (A) 1 %; Calcium 8.3 mg/dL (8.4-10.2); Eosinophils # (A) 0.2 k/uL (0-0.7); Eosinophils % (A) 2 %; HCT 26.3 % (34.0-46.0); Lymphocytes # (A) 1.4 k/uL (1.0-4.8); Lymphocytes % (A) 17 %; MCH 31.2 pg (25.0-35.0); MCHC 34.1 g/dL (31.0-37.0); MCV 91.5 fL (80.0-100.0); Mean Platelet Volume 7.1; Monocytes # (A) 0.2 k/uL (0-1.0); Monocytes % (A) 3 %; Neutrophils # (A) 6.7 k/uL (1.3-7.7); Neutrophils % (A) 77 %; Platelet Count 227 k/uL (150-450); Potassium 4.4 mmol/L (3.5-5.1); RBC 2.87 m/uL (3.80-5.40); RDW 15.5 % (11.5-15.5); WBC 8.6 k/uL (3.8-10.6)
[2019-01-27] MEDS ORDERED: MIDAZOLAM 2 MG/2 ML VIAL ONE (12:35)
[2019-01-27] MEDS ORDERED: LIDOCAINE 1% INJ 10MG/ML (20 ML MDV) ONE (12:35)
[2019-01-27] MEDS ORDERED: ROPIVACAINE 5 MG/ML 30 ML VIAL ONE (12:35)
[2019-01-27] MEDS ORDERED: DEXAMETHASONE SOD PHOSPHATE 4 MG/ML 1 ML VIAL ONE (12:35)
[2019-01-27] MEDS ORDERED: PHENYLEPHRINE-0.9% NACL SYG 1 MG/10 ML SYRINGE ONE (12:35)
[2019-01-27] MEDS ORDERED: PROPOFOL 10 MG/ML 20 ML VIAL IV ONE (12:35)
[2019-01-27] MEDS ORDERED: ePHEDrine SULFATE/0.9% NACL/PF 50 MG/5 ML SYRINGE IV ONE (12:35)
[2019-01-27] MEDS ORDERED: fentaNYL (PF) 50 MCG/ML 2 ML AMP ONE (12:35)
[2019-01-27] MEDS ORDERED: ROCURONIUM BROMIDE 10 MG/ML 10 ML VIAL IV ONE (12:35)
[2019-01-27] MEDS ORDERED: BUPIVACAINE (PF) 0.25% 30 ML VIAL SQ ONE (13:02)
[2019-01-27] MEDS ORDERED: MINERAL OIL 1 APPLIC/ML OIL TOPICAL ONE (13:03)
[2019-01-27 14:12] VITALS: TEMP 98.8
[2019-01-27] MEDS ORDERED: NALOXONE 0.4 MG/ML 1 ML VIAL IV PRN (14:15)
[2019-01-27] MEDS ORDERED: HYDROcodone/APAP 5-325MG 1 EACH TAB PO PRN (14:15)
--- NOTE | 2019-01-27 14:15 | P.OP ---
Date of Procedure: 01/27/19 Procedure(s) Performed: PREOPERATIVE DIAGNOSIS: Renal failure, umbilical hernia POSTOPERATIVE DIAGNOSIS: Same PROCEDURE: Peritoneal dialysis catheter insertion, umbilical hernia repair with mesh SURGEON: Jimbo EBL: Minimal ANESTHESIA: General COMPLICATIONS: None OPERATIVE PROCEDURE: The patient was placed in the operative table in the supine position. Her abdomen was prepped and draped in usual sterile fashion. A small horizontal incision was made in the left periumbilical location. Dissection down through the subcutaneous tissues took place using electrocautery. The anterior rectus was divided vertically using the scalpel. The rectus was bluntly. The posterior rectus was visualized. An 0 Vicryl pursestring was placed. A small opening in the posterior rectus fascia and peritoneum took place using a Metzenbaum scissors. There were no adhesions to the suture that was placed. The pigtail catheter was advanced into the pelvis over a stylette. No resistance was met. The inner cuff was secured to the fascia using the 0 Vicryl pursestring that was placed. The catheter was tu nneled to an exit site in the right lateral lower quadrant. The catheter was connected to the 1 L bag of saline and approximated 800 mL of saline was easily introduced into the peritoneal cavity. The fluid was then allowed to evacuate. The majority of the fluid was returned. The anterior rectus fascia was then reapproximated using a running 0 Vicryl stitch. The subcutaneous tissues reprepped using 3-0 Vicryl sutures and the skin using 4-0 Monocryl sutures. The outpatient dialysis adapter was applied to the end of the catheter. Next a curvilinear infraumbilical incision was made using the scalpel. The subcutaneous tissues were dissected bluntly. The hernia sac was identified. The umbilical attachments to the fascia were divided using electrocautery. The patient had a defect at the base of the umbilicus that was 2 cm in diameter. The preperitoneal space was dissected using blunt dissection and electrocautery. The 6.4 cm ventral ex mesh was placed beneath the fascia and sutured to the fascia using trans-fascial 0 Ethibond sutures. The fascia was then reapproximated horizontally using overlapping vest over pants interrupted 0 Ethibond sutures. The folding edge was tacked down using interrupted 0 Ethibond sutures as well. The subcutaneous tissues were reapproximated using inverted 3- 0 Vicryl sutures. The umbilicus was tacked back down to the fascia using a 3-0 Vicryl suture. The skin was closed using 4-0 Monocryl sutures. Skin glue and sterile dressings were then applied. DISPOSITION: Stable to recovery room
[2019-01-27] MEDS ORDERED: SODIUM CHLORIDE 0.9% 50 ML IV ONE (15:12)
[2019-01-27 15:31] VITALS: RESP 16
[2019-01-27 16:05] VITALS: BP 129/79; PULSE 62
== END 2019-01-27 16:28 | disposition home or self-care (01) ==
LOC: OR 11:42
PROVIDERS: ATTEND Surgery
DX: K42.9 Umbilical hernia without obstruction or gangrene (principal); I12.0 Hypertensive chronic kidney disease with stage 5 chronic kidney disease or end stage renal disease; G93.2 Benign intracranial hypertension; E66.01 Morbid (severe) obesity due to excess calories; Z68.39 Body mass index [BMI] 39.0-39.9, adult; H53.8 Other visual disturbances; F41.9 Anxiety disorder, unspecified; Z87.891 Personal history of nicotine dependence; Z79.899 Other long term (current) drug therapy; Z88.1 Allergy status to other antibiotic agents; Z88.7 Allergy status to serum and vaccine; Z88.8 Allergy status to other drugs, medicaments and biological substances
CPT/HCPCS: 49421; 49585; 81025; 64488; 80048; 85025; C1752; C1781; J2250; J1644; J1100 ×2; J0690; J2405; J2001; J3010; J2795; J2370; J2704

== ENCOUNTER → 2021-03-20 | Outpatient (CLI) | payer OTHER ==
--- NOTE | 2021-03-20 16:01 | XR ---
EXAMINATION TYPE: XR knee complete bilateral DATE OF EXAM: 03/20/2021 COMPARISON: NONE HISTORY: Pain TECHNIQUE: Three views of each knee are submitted. FINDINGS: Joint spaces are preserved. Osseous structures are intact. No acute fracture seen. IMPRESSION: 1. No acute fracture or dislocation.
== END | disposition home or self-care (01) ==
LOC: RADXRYALE 15:43
PROVIDERS: ATTEND Internal Medicine
DX: M25.562 Pain in left knee (principal); M25.561 Pain in right knee; W19.XXXA Unspecified fall, initial encounter

== ENCOUNTER 2021-11-11 18:53 | Inpatient (IN) | payer OTHER ==
[2021-11-11 19:35] LABS: Basophils # (A) 0.1 k/uL (0-0.2); Basophils % (A) 1 %; Eosinophils # (A) 0.2 k/uL (0-0.7); Eosinophils % (A) 2 %; HCT 25.2 % (34.0-46.0); HGB 8.6 gm/dL (11.4-16.0); Lymphocytes # (A) 1.2 k/uL (1.0-4.8); Lymphocytes % (A) 13 %; MCH 36.7 pg (25.0-35.0); MCHC 34.3 g/dL (31.0-37.0); MCV 107.1 fL (80.0-100.0); Macrocytosis Moderate; Mean Platelet Volume 8.3; Monocytes # (A) 0.5 k/uL (0-1.0); Monocytes % (A) 5 %; Neutrophils # (A) 6.9 k/uL (1.3-7.7); Neutrophils % (A) 78 %; Platelet Count 219 k/uL (150-450); RBC 2.36 m/uL (3.80-5.40); WBC 8.9 k/uL (3.8-10.6)
[2021-11-11 19:45] LABS: Albumin 3.1 g/dL (3.5-5.0); Calcium 8.1 mg/dL (8.4-10.2); Magnesium 1.5 mg/dL (1.6-2.3); Phosphorus 7.1 mg/dL (2.5-4.5); Potassium 3.5 mmol/L (3.5-5.1); Total Bilirubin 0.3 mg/dL (0.2-1.3); Total Protein 5.6 g/dL (6.3-8.2)
--- NOTE | 2021-11-11 21:04 | ED ---
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 Patient usually does one dwell session in the am and will empty in mid afternoon. He states that she completed that today. She then went to start her night time dialysis when she noted that she had some leaking coming from the site. Evaluation of the area revealed that the patient's had a crack in her PD tube in the area of the tubing that extends from the abdomen to the first connector. Patient will occasionally miss daytime exchanges however states that she never forgets to do her night time dialysis. She denies any symptoms to include chest pain, shortness of breath, abdominal pain, bleeding. No other alleviating, precipitating or modifying factors - Related Data Home Medications Medication Instructions Recorded Confirmed Calcium Acetate [Phoslo] 1,334 mg PO TID-W/MEALS 01/26/19 11/11/21 Auryxia 210mg 210 mg PO BID PRN 11/11/21 11/11/21 Auryxia 210mg 840 mg PO TID-W/MEALS 11/11/21 11/11/21 Metoprolol Tartrate [Lopressor] 12.5 mg PO DIRECTED 11/11/21 11/11/21 Renaplex-D 1 tab PO DAILY 11/11/21 11/11/21 Sevelamer [Renvela] 2,400 mg PO TID-W/MEALS 11/11/21 11/11/21 Sevelamer [Renvela] 800 mg PO DAILY PRN 11/11/21 11/11/21 Allergies Allergy/AdvReac Type Severity Reaction Status Date / Time iron Allergy Severe Nausea & Verified 11/11/21 21:15 Vomiting & Diarrhea Pertussis Vaccines Allergy Unknown Verified 11/11/21 21:15 ciprofloxacin [From Cipro] AdvReac UNCONTROLLABLE Verified 11/11/21 21:15 EMOTIONS PER PT Review of Systems ROS Statement: Those systems with pertinent positive or pertinent negative responses have been documented in the HPI. ROS Other: All systems not noted in ROS Statement are negative. 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., SWOLLEN OPTICAL NERVE & RETINA , STATES VISION BLURRED AT TIMES., PSEUDO TUMOR BRAIN., HX GOUT, ANEMIA, KIDNEY FAILURE.-HAS DIALYSIS CATHETER AND RECEIVING HEMODIALYSIS MO-SAT-SAT. HX FSGS (FOCAL SEGMENTAL GLOMERULOSCLEROSIS) History of Any Multi-Drug Resistant Organisms: None Reported Past Surgical History: Section Past Anesthesia/Blood Transfusion Reactions: No Reported Reaction Past Psychological History: Anxiety Past Alcohol Use History: Occasional Past Drug Use History: Marijuana - Past Family History Father Family Medical History: Myocardial Infarction ([place]) Additional Family Medical History / Comment(s): FATHER AT AGE 35 OF MASSIVE HEART ATTACK Mother Family Medical History: Cancer, Deep Vein Thrombosis (DVT) Additional Family Medical History / Comment(s): SKIN CANCER General Exam Limitations: no limitations General appearance: alert, in no apparent distress Head exam: Present: atraumatic, normocephalic, normal inspection Eye exam: Present: normal appearance, PERRL, EOMI. Absent: scleral icterus, conjunctival injection, periorbital swelling ENT exam: Present: normal exam, mucous membranes moist Neck exam: Present: normal inspection. Absent: tenderness, meningismus, lymphadenopathy Respiratory exam: Present: normal lung sounds bilaterally. Absent: respiratory distress, wheezes, rales, rhonchi, stridor Cardiovascular Exam: Present: regular rate, normal rhythm, normal heart sounds. Absent: systolic murmur, diastolic murmur, rubs, gallop, clicks GI/Abdominal exam: Present: soft, normal bowel sounds, other (pd catheter over left lower abdomen. the tubing between skin and connector is cracked). Absent: distended, tenderness, guarding, rebound, rigid Extremities exam: Present: normal inspection, full ROM, normal capillary refill. Absent: tenderness, pedal edema, joint swelling, calf tenderness Back exam: Present: normal inspection Neurological exam: Present: alert, oriented X3, CN II-XII intact Psychiatric exam: Present: normal affect, normal mood Skin exam: Present: warm, dry, intact, normal color. Absent: rash Course Vital Signs 11/11/21 18:57 Temperature 98.1 F Pulse Rate 71 Respiratory 20 Rate Blood Pressure 167/107 O2 Sat by Pulse 98 Oximetry Medical Decision Making - Medical Decision Making Upon arrival patient was placed into room 14. She does have a cracked dialysis catheter. I did call and speak with the international relations professor on-call who recommends placement of a temporary hemodialysis catheter. I called and spoke with Dr. Terrazas. States that Dr. Choi is out of town and should be placed on hemodialysis until the catheter can be replaced. I then called and spoke with Dr. Rodriguez about possible temporary HD catheter placement for which he was agreeable. Electrolytes stable at this time. Patient admitted to Dr. Chase - Lab Data Result diagrams: 11/12/21 05:16 11/12/21 05:16 Lab Results 11/11/21 11/11/21 Range/Units 19:23 19:23 WBC 8.9 (3.8-10.6) k/uL RBC 2.36 L (3.80-5.40) m/uL Hgb 8.6 L (11.4-16.0) gm/dL Hct 25.2 L (34.0-46.0) % MCV 107.1 H (80.0-100.0) fL MCH 36.7 H (25.0-35.0) pg MCHC 34.3 (31.0-37.0) g/dL RDW 14.0 (11.5-15.5) % Plt Count 219 (150-450) k/uL MPV 8.3 Neutrophils % 78 % Lymphocytes % 13 % Monocytes % 5 % Eosinophils % 2 % Basophils % 1 % Neutrophils # 6.9 (1.3-7.7) k/uL Lymphocytes # 1.2 (1.0-4.8) k/uL Monocytes # 0.5 (0-1.0) k/uL Eosinophils # 0.2 (0-0.7) k/uL Basophils # 0.1 (0-0.2) k/uL Macrocytosis Moderate Sodium 137 (137-145) mmol/L Potassium 3.5 (3.5-5.1) mmol/L Chloride 100 (98-107) mmol/L Carbon Dioxide 24 (22-30) mmol/L Anion Gap 13 mmol/L BUN 48 H (7-17) mg/dL Creatinine 15.00 H* (0.52-1.04) mg/dL Est GFR (CKD-EPI)AfAm 3 (>60 ml/min/1.73 sqM) Est GFR (CKD-EPI)NonAf 3 (>60 ml/min/1.73 sqM) Glucose 92 (74-99) mg/dL Calcium 8.1 L (8.4-10.2) mg/dL Phosphorus 7.1 H (2.5-4.5) mg/dL Magnesium 1.5 L (1.6-2.3) mg/dL Total Bilirubin 0.3 (0.2-1.3) mg/dL AST 24 (14-36) U/L ALT 21 (4-34) U/L Alkaline Phosphatase 50 (38-126) U/L Total Protein 5.6 L (6.3-8.2) g/dL Albumin 3.1 L (3.5-5.0) g/dL Disposition Clinical Impression: Chronic renal failure, Peritoneal dialysis catheter dysfunction Disposition: ADMITTED IP TO THIS [facility] Condition: Stable Is patient prescribed a controlled substance at d/c from ED?: No Time of Disposition: 21:04 Decision to Admit Reason: Admit from EC Decision Date: 11/11/21 Decision Time: 21:04
[2021-11-11] MEDS ORDERED: NALOXONE 0.4 MG/ML 1 ML VIAL IV PRN (21:05)
[2021-11-11] MEDS ORDERED: hydrALAZINE HCL 20 MG/ML 1 ML VIAL IVP PRN (23:56)
[2021-11-12] MEDS ORDERED: METOPROLOL TARTRATE 12.5 MG TAB PO SCH (00:30)
[2021-11-12 04:31] VITALS: RESP 18
[2021-11-12 05:58] LABS: Basophils % (A) 1 %; Eosinophils # (A) 0.2 k/uL (0-0.7); Eosinophils % (A) 2 %; HGB 8.2 gm/dL (11.4-16.0); Lymphocytes # (A) 1.5 k/uL (1.0-4.8); Lymphocytes % (A) 17 %; MCH 36.9 pg (25.0-35.0); MCHC 34.3 g/dL (31.0-37.0); MCV 107.5 fL (80.0-100.0); Macrocytosis Moderate; Mean Platelet Volume 7.5; Monocytes # (A) 0.4 k/uL (0-1.0); Monocytes % (A) 5 %; Neutrophils # (A) 6.6 k/uL (1.3-7.7); Neutrophils % (A) 75 %; Platelet Count 195 k/uL (150-450); RBC 2.23 m/uL (3.80-5.40); RDW 14.2 % (11.5-15.5); WBC 8.8 k/uL (3.8-10.6)
[2021-11-12 06:21] LABS: HCG,Qualitative Serum Not Detected
[2021-11-12 06:36] LABS: Anion Gap 13 mmol/L; Blood Urea Nitrogen 47 mg/dL (7-17); Calcium 7.6 mg/dL (8.4-10.2); Carbon Dioxide 22 mmol/L (22-30); Chloride 101 mmol/L (98-107); Glucose 86 mg/dL (74-99); Potassium 3.4 mmol/L (3.5-5.1); Sodium 136 mmol/L (137-145)
[2021-11-12 06:42] LABS: African American GFR (CKD) 3 (>60 ml/min/1.73 sqM); Non-African American GFR(CKD) 3 (>60 ml/min/1.73 sqM)
[2021-11-12] MEDS ORDERED: POTASSIUM CHLORIDE ER 10 MEQ TAB.ER.PRT PO STA (06:51)
[2021-11-12 06:56] LABS: Magnesium 1.3 mg/dL (1.6-2.3)
[2021-11-12] MEDS ORDERED: AURYXIA PO SCH (07:30)
[2021-11-12] MEDS: SEVELAMER 800 MG TAB PO SCH ×2 (07:48→12:55)
[2021-11-12] MEDS: CALCIUM ACETATE 667 MG TAB PO SCH ×2 (07:48→12:55)
[2021-11-12] MEDS ORDERED: METOPROLOL TARTRATE 25 MG TAB PO SCH (09:00)
[2021-11-12] MEDS ORDERED: RENAPLEX D PO SCH (09:00)
[2021-11-12] MEDS ORDERED: Magnesium Replacement Protocol 1 EACH MISC MISCELLANE PRN (09:21)
--- NOTE | 2021-11-12 09:29 | P.HPIM ---
History of Present Illness This is a pleasant 41 days old female with past medical history of end-stage renal disease on peritoneal dialysis daily over the last 3 years and her perl programmer is Dr. Cruz, other chronic medical problems including hypertension, seizure, she's not on seizure medication on reviewing the list. She came because her peritoneal dialysis tube broke down and his stone in the middle. However Attachment of the line to the body is intact She denies any other symptoms though, no chest pain, no GI or urinary symptoms. No fever. Vitals stable Hemoglobin 8.2, creatinine 15.1, potassium 3.4 which is been replaced, magnesium level I.3 which would be replaced per protocol. Review of Systems Review of systems CONSTITUTIONAL: No fever, no malaise, no fatigue. HEENT: No recent visual problems or hearing problems. Denied any sore throat. CARDIOVASCULAR: No orthopnea, PND, no palpitations, no syncope. PULMONARY: No shortness of breath, no cough, no hemoptysis. GASTROINTESTINAL: No diarrhea, no nausea, no vomiting, no abdominal pain. Normoactive bowel sounds. NEUROLOGICAL: No headaches, no weakness, no numbness. HEMATOLOGICAL: Denies any bleeding or petechiae. GENITOURINARY: Denies any burning micturition, frequency, or urgency. MUSCULOSKELETAL/RHEUMATOLOGICAL: Denies any joint pain, swelling, or any muscle pain. ENDOCRINE: Denies any polyuria or polydipsia. 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., SWOLLEN OPTICAL NERVE & RETINA , STATES VISION BLURRED AT TIMES., PSEUDO TUMOR BRAIN., HX GOUT, ANEMIA, KIDNEY FAILURE.-HAS DIALYSIS CATHETER AND RECEIVING HEMODIALYSIS MO-SAT-SAT. HX FSGS (FOCAL SEGMENTAL GLOMERULOSCLEROSIS) History of Any Multi-Drug Resistant Organisms: None Reported Past Surgical History: Section Additional Past Surgical History / Comment(s): PD catheter 01/27/2019 Past Anesthesia/Blood Transfusion Reactions: No Reported Reaction Past Psychological History: Anxiety Past Alcohol Use History: Occasional Past Drug Use History: Marijuana - Past Family History Father Family Medical History: Myocardial Infarction ([place]) Additional Family Medical History / Comment(s): FATHER AT AGE 35 OF MASSIVE HEART ATTACK Mother Family Medical History: Cancer, Deep Vein Thrombosis (DVT) Additional Family Medical History / Comment(s): SKIN CANCER Medications and Allergies Home Medications Medication Instructions Recorded Confirmed Type Calcium Acetate [Phoslo] 1,334 mg PO TID-W/MEALS 01/26/19 11/11/21 History Auryxia 210mg 210 mg PO BID PRN 11/11/21 11/11/21 History Auryxia 210mg 840 mg PO TID-W/MEALS 11/11/21 11/11/21 History Metoprolol Tartrate [Lopressor] 12.5 mg PO DIRECTED 11/11/21 11/11/21 History Renaplex-D 1 tab PO DAILY 11/11/21 11/11/21 History Sevelamer [Renvela] 2,400 mg PO TID-W/MEALS 11/11/21 11/11/21 History Sevelamer [Renvela] 800 mg PO DAILY PRN 11/11/21 11/11/21 History Allergies Allergy/AdvReac Type Severity Reaction Status Date / Time iron Allergy Severe Nausea & Verified 11/11/21 21:15 Vomiting & Diarrhea Pertussis Vaccines Allergy Unknown Verified 11/11/21 21:15 ciprofloxacin [From Cipro] AdvReac UNCONTROLLABLE Verified 11/11/21 21:15 EMOTIONS PER PT Physical Exam Vitals: Vital Signs Temp Pulse Pulse Resp BP BP Pulse Ox 11/11/21 23:59 172/118 11/11/21 22:41 98.4 F 77 16 172/113 99 11/11/21 18:57 98.1 F 71 20 167/107 98 Intake and Output 11/11/21 11/11/21 11/12/21 14:59 22:59 06:59 Other: Weight 106.594 kg GENERAL: The patient is alert and oriented x3, not in any acute distress. Obese HEENT: Pupils are round and equally reacting to light. EOMI. No scleral icterus. No conjunctival pallor. Normocephalic, atraumatic. No pharyngeal erythema. No thyromegaly. CARDIOVASCULAR: S1 and S2 present. No murmurs, rubs, or gallops. PULMONARY: Chest is clear to auscultation, no wheezing or crackles. -ABDOMEN: Soft, nontender, nondistended, normoactive bowel sounds. No palpable organomegaly. Left sided peritoneal tube dialysis is broken in the middle and there is tear. Attachment to the body is normal MUSCULOSKELETAL: No joint swelling or deformity. EXTREMITIES: No cyanosis, clubbing, or pedal edema. NEUROLOGICAL: Gross neurological examination did not reveal any focal deficits. SKIN: No rashes. no petechiae. Results CBC & Chem 7: 11/12/21 05:16 11/12/21 05:16 Labs: Abnormal Lab Results - Last 24 Hours (Table) 11/11/21 11/11/21 Range/Units 19:23 19:23 RBC 2.36 L (3.80-5.40) m/uL Hgb 8.6 L (11.4-16.0) gm/dL Hct 25.2 L (34.0-46.0) % MCV 107.1 H (80.0-100.0) fL MCH 36.7 H (25.0-35.0) pg BUN 48 H (7-17) mg/dL Creatinine 15.00 H* (0.52-1.04) mg/dL Calcium 8.1 L (8.4-10.2) mg/dL Phosphorus 7.1 H (2.5-4.5) mg/dL Magnesium 1.5 L (1.6-2.3) mg/dL Total Protein 5.6 L (6.3-8.2) g/dL Albumin 3.1 L (3.5-5.0) g/dL Thrombosis Risk Factor Assmnt - Choose All That Apply Each Factor Represents 1 point: Age 41-60 years, Obesity (BMI >25) Other Risk Factors: No Other congenital or acquired thrombophilia - If yes, enter type in comment: No Thrombosis Risk Factor Assessment Total Risk Factor Score: 2 Thrombosis Risk Factor Assessment Level: Low Risk Assessment and Plan Assessment: Malfunctioning and damage to peritoneal dialysis tube, need to be replaced and surgical team were consulted End-stage kidney disease on peritoneal dialysis Hypertension History of seizure Obesity with BMI of 40.3. Plan: This is a pleasant 41 this FEMALE with malfunctioning of presternal dialysis tube Hold dialysis Consults surgery and nephrology team Labs and medication were reviewed.. Continue same treatment. Continue with symptomatic treatment. Resume home medication. Monitor lytes and vitals. DVT and GI prophylaxis. Further recommendations as per clinical course of the patient DVT prophylaxis: Subcutaneous heparin GI Prophylaxis: Pepcid
[2021-11-12 11:52] VITALS: BP 147/90; PULSE 79; TEMP 98.4
[2021-11-12] MEDS ORDERED: MAGNESIUM SULFATE-D5W PMX 1 GM in DEXTROSE/WATER 1 100ML.BAG IVPB ONE (12:00)
[2021-11-12] MEDS ORDERED: VANCOMYCIN 1,750 MG in SODIUM CHLORIDE 0.9% 500 ML 500 ML IVPB ONE ×2 (12:00→15:00)
--- NOTE | 2021-11-12 13:30 | P.GSCN ---
History of Present Illness Consult date: 11/12/21 Reason for Consult: fractured PD catheter History of present illness: 41 year old female with history of renal failure on peritoneal dialysis p resented yesterday after her dialysis catheter tore, fractured. She states clamping the tubing so that it didn't leak. She denies any abdominal pain, fevers, chills, chest pain or shortness of breath. 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 HX FSGS (FOCAL SEGMENTAL GLOMERULOSCLEROSIS) History of Any Multi-Drug Resistant Organisms: None Reported Past Surgical History: Section Additional Past Surgical History / Comment(s): PD catheter 01/27/2019 Past Anesthesia/Blood Transfusion Reactions: No Reported Reaction Past Psychological History: Anxiety Past Alcohol Use History: Occasional Past Drug Use History: Marijuana - Past Family History Father Family Medical History: Myocardial Infarction ([place]) Additional Family Medical History / Comment(s): FATHER AT AGE 35 OF MASSIVE HEART ATTACK Mother Family Medical History: Cancer, Deep Vein Thrombosis (DVT) Additional Family Medical History / Comment(s): SKIN CANCER Medications and Allergies Home Medications Medication Instructions Recorded Confirmed Type Calcium Acetate [Phoslo] 1,334 mg PO TID-W/MEALS 01/26/19 11/11/21 History Auryxia 210mg 210 mg PO BID PRN 11/11/21 11/11/21 History Auryxia 210mg 840 mg PO TID-W/MEALS 11/11/21 11/11/21 History Metoprolol Tartrate [Lopressor] 12.5 mg PO DIRECTED 11/11/21 11/11/21 History Renaplex-D 1 tab PO DAILY 11/11/21 11/11/21 History Sevelamer [Renvela] 2,400 mg PO TID-W/MEALS 11/11/21 11/11/21 History Sevelamer [Renvela] 800 mg PO DAILY PRN 11/11/21 11/11/21 History Allergies Allergy/AdvReac Type Severity Reaction Status Date / Time iron Allergy Severe Nausea & Verified 11/11/21 21:15 Vomiting & Diarrhea Pertussis Vaccines Allergy Unknown Verified 11/11/21 21:15 ciprofloxacin [From Cipro] AdvReac UNCONTROLLABLE Verified 11/11/21 21:15 EMOTIONS PER PT Surgical - Exam Vital Signs Temp Pulse Resp BP Pulse Ox 98.1 F 71 20 167/107 98 11/11/21 18:57 11/11/21 18:57 11/11/21 18:57 11/11/21 18:57 11/11/21 18:57 - General well developed, well nourished, no distress - Eyes PERRL - ENT normal pinna, normal nares - Neck no masses, no bruits - Respiratory normal expansion, normal respiratory effort - Cardiovascular Rhythm: regular - Abdomen PD catheter is cracked just beneath the connection. no signs of infection. Abdomen: soft, non tender - Integumentary no rash - Psychiatric oriented to time, oriented to person, oriented to place Results - Labs 11/12/21 05:16 11/12/21 05:16 Abnormal Lab Results - Last 24 Hours (Table) 11/11/21 11/11/21 11/12/21 Range/Units 19:23 19:23 05:16 RBC 2.36 L 2.23 L (3.80-5.40) m/uL Hgb 8.6 L 8.2 L (11.4-16.0) gm/dL Hct 25.2 L 24.0 L (34.0-46.0) % MCV 107.1 H 107.5 H (80.0-100.0) fL MCH 36.7 H 36.9 H (25.0-35.0) pg Sodium (137-145) mmol/L Potassium (3.5-5.1) mmol/L BUN 48 H (7-17) mg/dL Creatinine 15.00 H* (0.52-1.04) mg/dL Calcium 8.1 L (8.4-10.2) mg/dL Phosphorus 7.1 H (2.5-4.5) mg/dL Magnesium 1.5 L (1.6-2.3) mg/dL Total Protein 5.6 L (6.3-8.2) g/dL Albumin 3.1 L (3.5-5.0) g/dL 11/12/21 Range/Units 05:16 RBC (3.80-5.40) m/uL Hgb (11.4-16.0) gm/dL Hct (34.0-46.0) % MCV (80.0-100.0) fL MCH (25.0-35.0) pg Sodium 136 L (137-145) mmol/L Potassium 3.4 L (3.5-5.1) mmol/L BUN 47 H (7-17) mg/dL Creatinine 15.14 H* (0.52-1.04) mg/dL Calcium 7.6 L (8.4-10.2) mg/dL Phosphorus (2.5-4.5) mg/dL Magnesium 1.3 L (1.6-2.3) mg/dL Total Protein (6.3-8.2) g/dL Albumin (3.5-5.0) g/dL Diabetes panel 11/11/21 11/12/21 Range/Units 19:23 05:16 Sodium 137 136 L (137-145) mmol/L Potassium 3.5 3.4 L (3.5-5.1) mmol/L Chloride 100 101 (98-107) mmol/L Carbon Dioxide 24 22 (22-30) mmol/L BUN 48 H 47 H (7-17) mg/dL Creatinine 15.00 H* 15.14 H* (0.52-1.04) mg/dL Glucose 92 86 (74-99) mg/dL Calcium 8.1 L 7.6 L (8.4-10.2) mg/dL AST 24 (14-36) U/L ALT 21 (4-34) U/L Alkaline Phosphatase 50 (38-126) U/L Total Protein 5.6 L (6.3-8.2) g/dL Albumin 3.1 L (3.5-5.0) g/dL Calcium panel 11/11/21 11/12/21 Range/Units 19:23 05:16 Calcium 8.1 L 7.6 L (8.4-10.2) mg/dL Phosphorus 7.1 H (2.5-4.5) mg/dL Albumin 3.1 L (3.5-5.0) g/dL Pituitary panel 11/11/21 11/12/21 Range/Units 19:23 05:16 Sodium 137 136 L (137-145) mmol/L Potassium 3.5 3.4 L (3.5-5.1) mmol/L Chloride 100 101 (98-107) mmol/L Carbon Dioxide 24 22 (22-30) mmol/L BUN 48 H 47 H (7-17) mg/dL Creatinine 15.00 H* 15.14 H* (0.52-1.04) mg/dL Glucose 92 86 (74-99) mg/dL Calcium 8.1 L 7.6 L (8.4-10.2) mg/dL Adrenal panel 11/11/21 11/12/21 Range/Units 19:23 05:16 Sodium 137 136 L (137-145) mmol/L Potassium 3.5 3.4 L (3.5-5.1) mmol/L Chloride 100 101 (98-107) mmol/L Carbon Dioxide 24 22 (22-30) mmol/L BUN 48 H 47 H (7-17) mg/dL Creatinine 15.00 H* 15.14 H* (0.52-1.04) mg/dL Glucose 92 86 (74-99) mg/dL Calcium 8.1 L 7.6 L (8.4-10.2) mg/dL Total Bilirubin 0.3 (0.2-1.3) mg/dL AST 24 (14-36) U/L ALT 21 (4-34) U/L Alkaline Phosphatase 50 (38-126) U/L Total Protein 5.6 L (6.3-8.2) g/dL Albumin 3.1 L (3.5-5.0) g/dL Assessment and Plan Assessment: 1. Dysfunctional PD catheter 2. ESRD 3. Morbid Obesity Plan: catheter was prepped with chloroprep solution, the tip was cut and a cap adaptor was fixated into the catheter. Discussion with nephrology- patient to get one treatment and hopefully discharged. I would recommend antibiotic solution due to the crack and risk of infection. Thank you for the consultation.
[2021-11-12] MEDS ORDERED: VANCOMYCIN 1,000 MG in SODIUM CHLORIDE 0.9% 250 ML IVPB STA (14:03)
[2021-11-12] MEDS ORDERED: CEFEPIME 2 GM in SODIUM CHLORIDE 0.9% 100 ML IVPB STA (14:11)
--- NOTE | 2021-11-12 14:11 | P.NPCON ---
History of Present Illness - Reason for Consult Consult date: 11/12/21 end stage renal disease - Chief Complaint Broken peritoneal dialysis catheter - History of Present Illness 41-year-old white female coming to the hospital with a broken peritoneal dialysis catheter. She is on peritoneal dialysis for the last 3 years, follows with Dr. Cruz. Etiology is FSGS. Denies abdominal pain nausea vomiting or diarrhea. Last dialysis was yesterday. 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 HX FSGS (FOCAL SEGMENTAL GLOMERULOSCLEROSIS) History of Any Multi-Drug Resistant Organisms: None Reported Past Surgical History: Section Additional Past Surgical History / Comment(s): PD catheter 01/27/2019 Past Anesthesia/Blood Transfusion Reactions: No Reported Reaction Past Psychological History: Anxiety Past Alcohol Use History: Occasional Past Drug Use History: Marijuana - Past Family History Father Family Medical History: Myocardial Infarction ([place]) Additional Family Medical History / Comment(s): FATHER AT AGE 35 OF MASSIVE HEART ATTACK Mother Family Medical History: Cancer, Deep Vein Thrombosis (DVT) Additional Family Medical History / Comment(s): SKIN CANCER Medications and Allergies Home Medications Medication Instructions Recorded Confirmed Type Calcium Acetate [Phoslo] 1,334 mg PO TID-W/MEALS 01/26/19 11/11/21 History Auryxia 210mg 210 mg PO BID PRN 11/11/21 11/11/21 History Auryxia 210mg 840 mg PO TID-W/MEALS 11/11/21 11/11/21 History Metoprolol Tartrate [Lopressor] 12.5 mg PO DIRECTED 11/11/21 11/11/21 History Renaplex-D 1 tab PO DAILY 11/11/21 11/11/21 History Sevelamer [Renvela] 2,400 mg PO TID-W/MEALS 11/11/21 11/11/21 History Sevelamer [Renvela] 800 mg PO DAILY PRN 11/11/21 11/11/21 History Allergies Allergy/AdvReac Type Severity Reaction Status Date / Time iron Allergy Severe Nausea & Verified 11/11/21 21:15 Vomiting & Diarrhea Pertussis Vaccines Allergy Unknown Verified 11/11/21 21:15 ciprofloxacin [From Cipro] AdvReac UNCONTROLLABLE Verified 11/11/21 21:15 EMOTIONS PER PT Physical Exam Vitals: Vital Signs Temp Pulse Pulse Resp BP BP Pulse Ox 11/12/21 11:15 98.4 F 79 18 147/90 97 11/12/21 04:30 98.1 F 89 18 164/86 93 L 11/12/21 02:44 16 11/12/21 01:32 156/97 11/11/21 23:59 172/118 11/11/21 22:41 98.4 F 77 16 172/113 99 11/11/21 18:57 98.1 F 71 20 167/107 98 Intake and Output 11/11/21 11/12/21 11/12/21 22:59 06:59 14:59 Other: Voiding Method Toilet Toilet # Voids 1 Weight 106.594 kg No acute distress S1-S2 heard Lungs clear PD catheter No edema Results - Lab Results Most recent lab results Calcium 7.6 mg/dL (8.4-10.2) L 11/12/21 05:16 Phosphorus 7.1 mg/dL (2.5-4.5) H 11/11/21 19:23 Magnesium 1.3 mg/dL (1.6-2.3) L 11/12/21 05:16 11/12/21 05:16 11/12/21 05:16 Assessment and Plan Assessment: #1 broken PD catheter status post repair #2 ESRD on peritoneal dialysis #3 hypertension with ESRD #4 metabolic bone disease #5 anemia with ESRD Plan: #1 peritoneal dialysis catheter repaired by the surgical team. #2 start CAPD, 2.5% dialysate, 2500 ML's every 6 hours. #3 give a dose of vancomycin and cefepime empirically to prevent peritonitis with a broken catheter. #4 check cell count and culture after emptying the first drain. #4 ESRD medications
[2021-11-12] MEDS ORDERED: VANCOMYCIN IV PER PHARMACY 1 EACH MISC MISCELLANE PRN (14:12)
[2021-11-12] MEDS ORDERED: DIALYSIS (PERIT 2.5%) 2,500 ML 62.5 G/2,500 ML BAG INTRAPERIT SCH (15:00)
--- NOTE | 2021-11-12 15:44 | P.GSCN ---
History of Present Illness Consult date: 11/12/21 History of present illness: REASON FOR CONSULTATION: Peritoneal dialysis catheter malfunction HISTORY OF PRESENT ILLNESS: The patient is a 41 year old female with end-stage renal disease who undergoes dialysis via peritoneal dialysis. Yesterday, patient reports break of her tubing yesterday and she presented to the hospital. Peritoneal dialysis catheter was placed December 2018. No reports of fevers or chills. No nausea and vomiting. No abdominal pain. She completed her initial dialysate in the morning and is due for the evening. Patient has been seen by v ascular surgery where tubing was corrected. Patient also seen by nephrology. Patient is eager to go home. PAST MEDICAL HISTORY: See list and reviewed PAST SURGICAL HISTORY: See list and reviewed MEDICATIONS: See list and reviewed ALLERGIES: See list and reviewed SOCIAL HISTORY: See list and reviewed FAMILY HISTORY: See list and reviewed REVIEW OF ORGAN SYSTEMS: CONSTITUTIONAL: No fevers or chills. Morbid obesity, BMI 40.3 EYES: Denies any trouble with vision. No glasses. HEENT: No difficulties with hearing. No nosebleeds. No difficulty swallowing. RESPIRATORY: Denies pneumonia. Denies any troubles with breathing or dyspnea on exertion. CARDIOVASCULAR: Has hypertensive heart disease. GASTROINTESTINAL: Denies fatty food intolerance. Denies change in bowel habits and gas bloat. GENITOURINARY: Has focal segmental glomerulosclerosis. Peritoneal dialysis Saturday NEUROLOGICAL: Denies any numbness or tingling along the distal extremities. Has seizure disorder. MUSCULOSKELETAL: Has back pain, stiffness or joint arthritis. Has gout. SKIN: No current skin cancer. No rash. PSYCHIATRIC: Denies current depression or suicidal thoughts. ENDOCRINE: Denies current thyroid disorders. Denies any blood sugar glucose intolerance. HEME/LYMPHATIC: Denies any lumps and bumps around the neck. No recent deep venous thrombosis. Has anemia. ALLERGY/IMMUNOLOGY: No immunoglobulin therapy. No immune deficiencies. BREAST: Denies current breast lumps, pain or nipple discharge. PHYSICAL EXAM: VITALS: Reviewed CONSTITUTIONAL: Well developed and in no acute distress. EYES: Conjuctivae without sclera icterus. Extraocular movements grossly intact. HEAD, EARS, NOSE, THROAT: Moist buccal mucosa. Head is atraumatic, normocephalic. Hears conversational speech. No nasal drainage. NECK: Supple. No JV distention. No thyroidomegaly. RESPIRATORY: Non-labored respirations and equal bilateral excursions. No gross wheezes. CARDIOVASCULAR: Palpable 2+ radial pulses. ABDOMEN: Protuberant. No peritonitis. PD catheter intact. No erythema. Nontender. LYMPH: No neck lymphadenopathy. MUSCULOSKELETAL: No clubbing cyanosis. SKIN: Warm and well perfused with good skin turgor. NEUROLOGIC: Cranial nerves II through XII grossly intact. No focal or lateral izing signs. PSYCH: Appropriate affect. Alert and oriented to person, place and time. Displays appropriate insight. CLINCAL LABS: Reviewed. WBC 8.9. Hemoglobin low at 8.2 with anemia RECORDS: previous old records reviewed operative report December 2018 reviewed. ASSESSMENT: 1. Peritoneal dialysis catheter malfunction 2. End-stage renal disease on dialysis 3. Focal segmental glomerulosclerosis PLAN: 1. Peritoneal dialysis catheter corrected by vascular surgeon. 2. Recommendations per vascular surgeon for antibiotics reviewed. 3. Otherwise, patient due for dialysis treatment. 4. Stable for discharge as catheter corrected. Thank you for this kind consultation. 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., SWOLLEN OPTICAL NERVE & RETINA , STATES VISION BLURRED AT TIMES., PSEUDO TUMOR BRAIN., HX GOUT, ANEMIA, KIDNEY FAILURE.-HAS DIALYSIS CATHETER AND RECEIVING HEMODIALYSIS -SAT-SAT. HX FSGS (FOCAL SEGMENTAL GLOMERULOSCLEROSIS) History of Any Multi-Drug Resistant Organisms: None Reported Past Surgical History: Section Additional Past Surgical History / Comment(s): PD catheter 01/27/2019 Past Anesthesia/Blood Transfusion Reactions: No Reported Reaction Past Psychological History: Anxiety Past Alcohol Use History: Occasional Past Drug Use History: Marijuana - Past Family History Father Family Medical History: Myocardial Infarction ([place]) Additional Family Medical History / Comment(s): FATHER AT AGE 35 OF MASSIVE HEART ATTACK Mother Family Medical History: Cancer, Deep Vein Thrombosis (DVT) Additional Family Medical History / Comment(s): SKIN CANCER Medications and Allergies Home Medications Medication Instructions Recorded Confirmed Type Calcium Acetate [PhosLo] 1,334 mg PO TID-W/MEALS 01/26/19 11/11/21 History Auryxia 210mg 210 mg PO BID PRN 11/11/21 11/11/21 History Auryxia 210mg 840 mg PO TID-W/MEALS 11/11/21 11/11/21 History Metoprolol Tartrate [Lopressor] 12.5 mg PO DIRECTED 11/11/21 11/11/21 History Renaplex-D 1 tab PO DAILY 11/11/21 11/11/21 History Sevelamer [Renvela] 2,400 mg PO TID-W/MEALS 11/11/21 11/11/21 History Sevelamer [Renvela] 800 mg PO DAILY PRN 11/11/21 11/11/21 History Allergies Allergy/AdvReac Type Severity Reaction Status Date / Time iron Allergy Severe Nausea & Verified 11/11/21 21:15 Vomiting & Diarrhea Pertussis Vaccines Allergy Unknown Verified 11/11/21 21:15 ciprofloxacin [From Cipro] AdvReac UNCONTROLLABLE Verified 11/11/21 21:15 EMOTIONS PER PT Surgical - Exam Vital Signs Temp Pulse Resp BP Pulse Ox 98.1 F 71 20 167/107 98 11/11/21 18:57 11/11/21 18:57 11/11/21 18:57 11/11/21 18:57 11/11/21 18:57 Results - Labs 11/12/21 05:16 11/12/21 05:16 Abnormal Lab Results - Last 24 Hours (Table) 11/11/21 11/11/21 11/12/21 Range/Units 19:23 19:23 05:16 RBC 2.36 L 2.23 L (3.80-5.40) m/uL Hgb 8.6 L 8.2 L (11.4-16.0) gm/dL Hct 25.2 L 24.0 L (34.0-46.0) % MCV 107.1 H 107.5 H (80.0-100.0) fL MCH 36.7 H 36.9 H (25.0-35.0) pg Sodium (137-145) mmol/L Potassium (3.5-5.1) mmol/L BUN 48 H (7-17) mg/dL Creatinine 15.00 H* (0.52-1.04) mg/dL Calcium 8.1 L (8.4-10.2) mg/dL Phosphorus 7.1 H (2.5-4.5) mg/dL Magnesium 1.5 L (1.6-2.3) mg/dL Total Protein 5.6 L (6.3-8.2) g/dL Albumin 3.1 L (3.5-5.0) g/dL 11/12/21 Range/Units 05:16 RBC (3.80-5.40) m/uL Hgb (11.4-16.0) gm/dL Hct (34.0-46.0) % MCV (80.0-100.0) fL MCH (25.0-35.0) pg Sodium 136 L (137-145) mmol/L Potassium 3.4 L (3.5-5.1) mmol/L BUN 47 H (7-17) mg/dL Creatinine 15.14 H* (0.52-1.04) mg/dL Calcium 7.6 L (8.4-10.2) mg/dL Phosphorus (2.5-4.5) mg/dL Magnesium 1.3 L (1.6-2.3) mg/dL Total Protein (6.3-8.2) g/dL Albumin (3.5-5.0) g/dL Diabetes panel 11/11/21 11/12/21 Range/Units 19:23 05:16 Sodium 137 136 L (137-145) mmol/L Potassium 3.5 3.4 L (3.5-5.1) mmol/L Chloride 100 101 (98-107) mmol/L Carbon Dioxide 24 22 (22-30) mmol/L BUN 48 H 47 H (7-17) mg/dL Creatinine 15.00 H* 15.14 H* (0.52-1.04) mg/dL Glucose 92 86 (74-99) mg/dL Calcium 8.1 L 7.6 L (8.4-10.2) mg/dL AST 24 (14-36) U/L ALT 21 (4-34) U/L Alkaline Phosphatase 50 (38-126) U/L Total Protein 5.6 L (6.3-8.2) g/dL Albumin 3.1 L (3.5-5.0) g/dL Calcium panel 11/11/21 11/12/21 Range/Units 19:23 05:16 Calcium 8.1 L 7.6 L (8.4-10.2) mg/dL Phosphorus 7.1 H (2.5-4.5) mg/dL Albumin 3.1 L (3.5-5.0) g/dL Pituitary panel 11/11/21 11/12/21 Range/Units 19:23 05:16 Sodium 137 136 L (137-145) mmol/L Potassium 3.5 3.4 L (3.5-5.1) mmol/L Chloride 100 101 (98-107) mmol/L Carbon Dioxide 24 22 (22-30) mmol/L BUN 48 H 47 H (7-17) mg/dL Creatinine 15.00 H* 15.14 H* (0.52-1.04) mg/dL Glucose 92 86 (74-99) mg/dL Calcium 8.1 L 7.6 L (8.4-10.2) mg/dL Adrenal panel 11/11/21 11/12/21 Range/Units 19:23 05:16 Sodium 137 136 L (137-145) mmol/L Potassium 3.5 3.4 L (3.5-5.1) mmol/L Chloride 100 101 (98-107) mmol/L Carbon Dioxide 24 22 (22-30) mmol/L BUN 48 H 47 H (7-17) mg/dL Creatinine 15.00 H* 15.14 H* (0.52-1.04) mg/dL Glucose 92 86 (74-99) mg/dL Calcium 8.1 L 7.6 L (8.4-10.2) mg/dL Total Bilirubin 0.3 (0.2-1.3) mg/dL AST 24 (14-36) U/L ALT 21 (4-34) U/L Alkaline Phosphatase 50 (38-126) U/L Total Protein 5.6 L (6.3-8.2) g/dL Albumin 3.1 L (3.5-5.0) g/dL
[2021-11-13] MEDS ORDERED: VANCOMYCIN 1,750 MG in SODIUM CHLORIDE 0.9% 500 ML 500 ML IVPB ONE (14:00)
== END 2021-11-12 18:03 | disposition home or self-care (01) | DRG 919 ==
LOC: EC 18:53 → 5NMEDONC 21:05
PROVIDERS: ADMIT Hospitalist; ATTEND Hospitalist
PROC: 3E1M39Z Irrigation of Peritoneal Cavity using Dialysate, Percutaneous Approach (ICD-10-PCS; principal; 2021-11-12)
DX: T85.611A Breakdown (mechanical) of intraperitoneal dialysis catheter, initial encounter (principal); N18.6 End stage renal disease; I12.0 Hypertensive chronic kidney disease with stage 5 chronic kidney disease or end stage renal disease; Z68.41 Body mass index [BMI] 40.0-44.9, adult; D63.1 Anemia in chronic kidney disease; E66.01 Morbid (severe) obesity due to excess calories; F41.9 Anxiety disorder, unspecified; G40.909 Epilepsy, unspecified, not intractable, without status epilepticus; M89.8X9 Other specified disorders of bone, unspecified site; Y81.2 Prosthetic and other implants, materials and accessory general- and plastic-surgery devices associated with adverse incidents; Z99.2 Dependence on renal dialysis; Z88.1 Allergy status to other antibiotic agents; Z88.8 Allergy status to other drugs, medicaments and biological substances; Z88.7 Allergy status to serum and vaccine
CPT/HCPCS: 36415; 80048; 80053; 83735; 84100; 84703; 85025; 99284

== ENCOUNTER 2022-02-23 13:37 | Emergency (ER) | payer OTHER ==
[2022-02-23 14:50] VITALS: BP 201/107; PULSE 71; RESP 16; TEMP 97.8
[2022-02-23 15:17] LABS: Basophils % (A) 1 %; Eosinophils # (A) 0.3 k/uL (0-0.7); Eosinophils % (A) 3 %; HCT 21.5 % (34.0-46.0); HGB 7.4 gm/dL (11.4-16.0); Lymphocytes # (A) 1.3 k/uL (1.0-4.8); Lymphocytes % (A) 14 %; MCH 34.7 pg (25.0-35.0); MCHC 34.5 g/dL (31.0-37.0); MCV 100.6 fL (80.0-100.0); Macrocytosis Slight; Mean Platelet Volume 8.5; Monocytes # (A) 0.3 k/uL (0-1.0); Monocytes % (A) 4 %; Neutrophils % (A) 77 %; Platelet Count 187 k/uL (150-450); Poikilocytosis Slight; RBC 2.14 m/uL (3.80-5.40); WBC 9.1 k/uL (3.8-10.6)
[2022-02-23 15:18] LABS: Albumin 3.1 g/dL (3.5-5.0); Calcium 7.1 mg/dL (8.4-10.2); Potassium 3.8 mmol/L (3.5-5.1); Total Bilirubin 0.4 mg/dL (0.2-1.3); Total Protein 5.3 g/dL (6.3-8.2)
== END 2022-02-23 16:06 | disposition left against medical advice (07) ==
LOC: EC 13:37
DX: Z53.21 Procedure and treatment not carried out due to patient leaving prior to being seen by health care provider (principal)
CPT/HCPCS: 36415; 80053; 85025; 99499

== ENCOUNTER 2022-11-02 10:52 | Inpatient (IN) | payer OTHER ==
[2022-11-02] MEDS ORDERED: HYDROmorphone 0.5 MG/0.5 ML SYRINGE IVP STA (11:14)
[2022-11-02] MEDS ORDERED: ONDANSETRON 4 MG/2 ML VIAL IVP STA (11:15)
[2022-11-02] MEDS ORDERED: SODIUM CHLORIDE 0.9% 500 ML 500 ML IV STA (11:18)
--- NOTE | 2022-11-02 11:20 | ED ---
Abdominal Pain HPI - General Chief Complaint: Abdominal Pain Stated Complaint: abd pain Time Seen by Provider: 11/02/22 11:07 Source: patient, RN notes reviewed Mode of arrival: ambulatory Limitations: no limitations - History of Present Illness Initial Comments: This is a 42-year-old female who presents to the emergency department for abdominal pain. Patient states that abdominal pain has been going on for 2-3 days. She receives peritoneal dialysis every 6 hours and was diagnosed with peritonitis 2 days ago by the individual who manages her peritoneal dialysis. She was started on vancomycin and a cephalosporin antibiotic that she cannot recall the name of. She been on antibiotics for 2 days. She puts the medications in her dialysis bags. States that she continues to have abdominal pain despite the antibiotics. Reports that she has not had a bowel movement in 2 days, and prior to that she only had runny stool. Also reports ongoing nausea and vomiting and feels dehydrated. Denies any fevers, chills, sore throat, cough, dyspnea, chest pain, palpitations, abdominal pain, nausea, vomiting, diarrhea, back pain, or headaches. MD Complaint: abdominal pain Onset/Timin -: days(s) Location: diffuse - Related Data Home Medications Medication Instructions Recorded Confirmed Metoprolol Tartrate [Lopressor] 50 mg PO BID 11/11/21 11/02/22 Renaplex-D 1 tab PO DAILY 11/11/21 11/02/22 Velphoro 500mg Chewable Tab 1,000 mg PO TID-W/MEALS 11/02/22 11/02/22 Velphoro 500mg Chewable Tab 500 mg PO DAILY PRN 11/02/22 11/02/22 lisinopriL [Zestril] 20 mg PO BID 11/02/22 11/02/22 Allergies Allergy/AdvReac Type Severity Reaction Status Date / Time iron Allergy Severe Nausea & Verified 11/02/22 15:55 Vomiting & Diarrhea Pertussis Vaccines Allergy Unknown Verified 11/02/22 15:55 ciprofloxacin [From Cipro] AdvReac UNCONTROLLABLE Verified 11/02/22 15:55 EMOTIONS PER PT Review of Systems ROS Statement: Those systems with pertinent positive or pertinent negative responses have been documented in the HPI. ROS Other: All systems not noted in ROS Statement are negative. 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., SWOLLEN OPTICAL NERVE & RETINA , STATES VISION BLURRED AT TIMES., PSEUDO TUMOR BRAIN., HX GOUT, ANEMIA, KIDNEY FAILURE.-HAS DIALYSIS CATHETER AND RECEIVING HEMODIALYSIS -SAT-SAT. HX FSGS (FOCAL SEGMENTAL GLOMERULOSCLEROSIS) History of Any Multi-Drug Resistant Organisms: None Reported Past Surgical History: Section Additional Past Surgical History / Comment(s): PD catheter 01/27/2019 Past Anesthesia/Blood Transfusion Reactions: No Reported Reaction Past Psychological History: Anxiety Smoking Status: Former smoker Past Alcohol Use History: Occasional Past Drug Use History: Marijuana - Past Family History Father Family Medical History: Myocardial Infarction ([place]) Additional Family Medical History / Comment(s): FATHER AT AGE 35 OF MASSIVE HEART ATTACK Mother Family Medical History: Cancer, Deep Vein Thrombosis (DVT) Additional Family Medical History / Comment(s): SKIN CANCER General Exam Limitations: no limitations General appearance: alert, in distress Head exam: Present: atraumatic, normocephalic, normal inspection Respiratory exam: Present: normal lung sounds bilaterally. Absent: respiratory distress, wheezes, rales, rhonchi, stridor Cardiovascular Exam: Present: regular rate, normal rhythm, normal heart sounds. Absent: systolic murmur, diastolic murmur, rubs, gallop, clicks GI/Abdominal exam: Present: soft, tenderness (diffuse), hypoactive bowel sounds. Absent: distended Neurological exam: Present: alert, oriented X3, CN II-XII intact Psychiatric exam: Present: normal affect, normal mood Skin exam: Present: warm, dry, intact, normal color. Absent: rash Course Vital Signs 11/02/22 11/02/22 11/02/22 11:03 16:29 16:36 Temperature 99 F Pulse Rate 101 H 95 96 Respiratory 16 19 18 Rate Blood Pressure 155/94 151/93 161/97 O2 Sat by Pulse 100 96 97 Oximetry Medical Decision Making - Medical Decision Making This is a 42-year-old female who presents to the emergency department for abdominal pain. Was pt. sent in by a medical professional or institution? @ -No Did you speak to anyone other than the patient for history? @ -No Did you review nursing and triage notes? @ -Yes, and I agree, it is accurate with regards to the patient's symptoms. Were old charts reviewed? @ -No Differential Diagnosis? @ -Differential Abdominal Pain Women: Appendicitis, Cholecystitis, diverticulosis, ischemic bowel, pancreatitis, hepatitis, UTI, gastroenteritis, AAA, incarcerated hernia, bowel obstruction, constipation, inflammatory bowel, hepatitis, peptic ulcer disease, splenic infarction, perforated viscus, vulvitis, ovarian torsion, PID, kidney stone, placenta abruption, this is not meant to be an all-inclusive list EKG interpreted by me (3pts min.)? @ -EKG interpreted by me demonstrating the following: Sinus tachycardia. Ventricular rate 100 bpm, GA interval 136 ms, QRS duration 97 ms, QTC 410 ms. X-rays interpreted by me (1pt min.)? @ -Not obtained CT interpreted by me (1pt min.)? @ -Computed tomography scan of the abdomen and pelvis obtained. My interpretation identifies no evidence of free air. U/S interpreted by me (1pt. min.)? @ -Not obtained What testing was considered but not performed? (CT, X-rays, U/S, labs)? Why? @ -None What meds were considered but not given? Why? @ -None Did you discuss the management of the patient with other professionals? @ -Yes, Dr. Valentin, who accepts the patient for admission. Did you reconcile home meds? @ -No Was smoking cessation discussed for >3mins.? @ -No Was critical care preformed (if so, how long)? @ -No Were there social determinants of health that impacted care today? How? (Homelessness, low income, unemployed, alcoholism, drug addiction, transportatio n, low edu. Level, literacy, decrease access to med. care, penitentiary, rehab)? @ -No Was there de-escalation of care discussed even if they declined? (Discuss DNR or withdrawal of care, Hospice)? @ -No What co-morbidities impacted this encounter? (DM, HTN, Smoking, COPD, CAD, Cancer, CVA, Hep., AIDS, mental health diagnosis, sleep apnea, morbid obesity)? @ -Renal failure, HTN Was patient admitted / discharged? @ -Admitted. Lab work obtained revealing hyponatremia, consistent with the patient's reported history of being dehydrated from ongoing nausea and vomiting. Creatinine critically elevated consistent with the patient's history of renal failure on peritoneal dialysis. Computed tomography scan of the abdomen and pelvis obtained revealing a small bowel obstruction. She does also have moderate abdominopelvic ascites and enteritis. Patient admitted to medicine for further management of small bowel obstruction and hyponatremia. Consult placed for general surgery regarding the small bowel obstruction. Consult was also placed for nephrology given that she is a peritoneal dialysis patient. Undiagnosed new problem with uncertain prognosis? @ -None Drug Therapy requiring intensive monitoring for toxicity (Heparin, Nitro, Insulin, Cardizem)? @ -None Were any procedures done? @ -None Diagnosis/symptom? @ -SBO, hyponatremia Acute, or Chronic, or Acute on Chronic? @ -Acute Uncomplicated (without systemic symptoms) or Complicated (systemic symptoms)? @ -Complicated Side effects of treatment? @ -None Exacerbation, Progression, or Severe Exacerbation] @ -Not applicable Poses a threat to life or bodily function? @ -Yes This case was discussed in detail with the attending ED physician, Dr. Talbert. Presentation, findings, and treatment plan discussed in detail as well. - Lab Data Result diagrams: 11/02/22 11:30 11/02/22 11:30 Lab Results 11/02/22 11/02/22 11/02/22 Range/Units 11:30 11:30 11:30 WBC 8.1 (3.8-10.6) k/uL RBC 2.36 L (3.80-5.40) m/uL Hgb 8.2 L (11.4-16.0) gm/dL Hct 23.8 L (34.0-46.0) % MCV 101.2 H (80.0-100.0) fL MCH 35.0 (25.0-35.0) pg MCHC 34.6 (31.0-37.0) g/dL RDW 16.7 H (11.5-15.5) % Plt Count 261 (150-450) k/uL MPV 8.2 Neutrophils % 88 % Lymphocytes % 5 % Monocytes % 4 % Eosinophils % 1 % Basophils % 0 % Neutrophils # 7.1 (1.3-7.7) k/uL Lymphocytes # 0.4 L (1.0-4.8) k/uL Monocytes # 0.3 (0-1.0) k/uL Eosinophils # 0.1 (0-0.7) k/uL Basophils # 0.0 (0-0.2) k/uL Anisocytosis Slight Macrocytosis Slight Sodium 126 L (137-145) mmol/L Potassium 3.4 L (3.5-5.1) mmol/L Chloride 86 L (98-107) mmol/L Carbon Dioxide 26 (22-30) mmol/L Anion Gap 14 mmol/L BUN 52 H (7-17) mg/dL Creatinine 12.04 H* (0.52-1.04) mg/dL Est GFR (CKD-EPI)AfAm 4 (>60 ml/min/1.73 sqM) Est GFR (CKD-EPI)NonAf 3 (>60 ml/min/1.73 sqM) Glucose 109 H (74-99) mg/dL Plasma Lactic Acid Jame 1.5 (0.7-2.0) mmol/L Calcium 7.0 L (8.4-10.2) mg/dL Total Bilirubin 0.6 (0.2-1.3) mg/dL AST 17 (14-36) U/L ALT 14 (4-34) U/L Alkaline Phosphatase 64 (38-126) U/L Total Protein 5.3 L (6.3-8.2) g/dL Albumin 2.6 L (3.5-5.0) g/dL Amylase 34 (30-110) U/L Lipase 85 (23-300) U/L - Radiology Data Radiology results: report reviewed, image reviewed Disposition Clinical Impression: Small bowel obstruction, Hyponatremia Disposition: ADMITTED IP TO THIS HOSP
[2022-11-02 11:52] LABS: Anisocytosis Slight; Basophils % (A) 0 %; Eosinophils # (A) 0.1 k/uL (0-0.7); Eosinophils % (A) 1 %; HCT 23.8 % (34.0-46.0); HGB 8.2 gm/dL (11.4-16.0); Lymphocytes # (A) 0.4 k/uL (1.0-4.8); Lymphocytes % (A) 5 %; MCHC 34.6 g/dL (31.0-37.0); MCV 101.2 fL (80.0-100.0); Macrocytosis Slight; Mean Platelet Volume 8.2; Monocytes # (A) 0.3 k/uL (0-1.0); Monocytes % (A) 4 %; Neutrophils # (A) 7.1 k/uL (1.3-7.7); Neutrophils % (A) 88 %; Platelet Count 261 k/uL (150-450); RBC 2.36 m/uL (3.80-5.40); RDW 16.7 % (11.5-15.5); WBC 8.1 k/uL (3.8-10.6)
[2022-11-02 12:18] LABS: ALT 14 U/L (4-34); AST 17 U/L (14-36); Albumin 2.6 g/dL (3.5-5.0); Alkaline Phosphatase 64 U/L (38-126); Amylase 34 U/L (30-110); Anion Gap 14 mmol/L; Blood Urea Nitrogen 52 mg/dL (7-17); Carbon Dioxide 26 mmol/L (22-30); Chloride 86 mmol/L (98-107); Glucose 109 mg/dL (74-99); Lipase 85 U/L (23-300); Potassium 3.4 mmol/L (3.5-5.1); Sodium 126 mmol/L (137-145); Total Bilirubin 0.6 mg/dL (0.2-1.3); Total Protein 5.3 g/dL (6.3-8.2)
[2022-11-02 12:24] LABS: African American GFR (CKD) 4 (>60 ml/min/1.73 sqM); Non-African American GFR(CKD) 3 (>60 ml/min/1.73 sqM)
--- NOTE | 2022-11-02 13:04 | CT ---
EXAMINATION TYPE: CT abdomen pelvis wo con DATE OF EXAM: 11/02/2022 COMPARISON: None HISTORY: 42-year-old female Generalized abdominal pain, nausea, vomiting and constipation. CT DLP: 1244.4 mGycm. Automated exposure control for dose reduction was used. TECHNIQUE: Contiguous axial scanning of the abdomen and pelvis without IV contrast. Coronal and sagit michelet reconstructions performed. FINDINGS: Heart borderline in size. No pericardial effusion. Patchy bibasilar opacities, likely atelectasis. N o pleural effusion. Liver enlarged at 22.2 cm. Gallbladder hydropic at 4.7 cm wide with underlying noncalcified gallstones measuring up to 4.1 cm. Adrenal glands, spleen, and pancreas show no gross abnormality. The kidneys are atrophic with small punctate 4 mm and smaller nonobstructive calculi. Small 7 mm matilde ical lesion medial upper right kidney. No hydronephrosis. There appears to be some probable scar tissue along the infraumbilical midline abdominal wall. Peritoneal dialysis catheter entering from the left and looped in the pelvis. There is moderate abdom inopelvic ascites. Normal appendix. Some of the distal small bowel loops are nondistended and more proximal to mid small bowel loops are dilated up to 3.9 cm with air-fluid levels. Unable to identify a distinct transition point. Sigmoid diverticulosis. No pericolonic inflammatory change. There is mild to moderate circumferential jejunal wall thickening in the mid abdomen that could repre sent a regional enteritis as well. No free air is seen. Bladder is collapsed. Uterus anteverted. Ovaries not well delineated due to the ascites fluid. Suspec t a 4.8 cm cystic lesion of the right ovary. No pelvic lymphadenopathy. Bones: No osseous destructive process. Dependent midline subcutaneous edema. IMPRESSION: 1. Indwelling left-sided pelvic peritoneal dialysis catheter. There is moderate abdominopelvic ascit es. 2. Dilated small bowel loops up to 3.9 cm with air-fluid levels. While we are unable to identify a d istinct transition point, some distal small bowel loops as well as the colon are collapsed. Findings suggestive of a small bowel obstruction. 3. In addition, there is some segmental jejunal wall thickening in the mid abdomen suggesting a nons pecific enteritis. 4. Mildly hydropic gallbladder with a 4.1 cm gallstone. Hydropic change highly relates to fasting st ate. Clinically correlate. 5. Sigmoid diverticulosis without acute diverticulitis. Hepatomegaly at 22.2 cm.
[2022-11-02] MEDS ORDERED: ORPHENADRINE 30 MG/ML 2 ML VIAL IVP STA (13:13)
[2022-11-02] MEDS ORDERED: ACETAMINOPHEN TAB 325 MG TAB PO PRN (13:17)
[2022-11-02] MEDS ORDERED: ONDANSETRON 4 MG/2 ML VIAL IVP PRN (13:17)
[2022-11-02] MEDS ORDERED: NALOXONE 0.4 MG/ML 1 ML VIAL IV PRN (13:17)
[2022-11-02] MEDS ORDERED: DIALYSIS (PERIT 1.5%) 2,500 ML 37.5 G/2,500 ML BAG INTRAPERIT SCH (15:00)
[2022-11-02] MEDS: DIALYSIS DEX INTRAPERIT SCH ×3 (16:00→22:56)
[2022-11-02] MEDS: HEPARIN SODIUM INTRAPERIT SCH ×3 (16:00→22:56)
[2022-11-02] MEDS ORDERED: SEVELAMER 800 MG TAB PO PRN (16:57)
[2022-11-02] MEDS: SEVELAMER 800 MG TAB PO SCH (17:19)
[2022-11-02] MEDS: HYDROmorphone 1 MG/ML 1 ML SYRINGE IVP PRN ×2 (17:59→22:38)
[2022-11-02] MEDS: lisinopriL 10 MG TAB PO SCH (21:09)
[2022-11-02] MEDS: METOPROLOL TARTRATE 25 MG TAB PO SCH (21:09)
[2022-11-03] MEDS: HYDROmorphone 1 MG/ML 1 ML SYRINGE IVP PRN ×3 (04:22→20:48)
[2022-11-03] MEDS: HEPARIN SODIUM INTRAPERIT SCH ×2 (04:23→10:00)
[2022-11-03] MEDS: DIALYSIS DEX INTRAPERIT SCH ×2 (04:23→10:00)
[2022-11-03 04:52] LABS: Appearance,BF Cloudy (Clear)
[2022-11-03] MEDS: SEVELAMER 800 MG TAB PO SCH ×3 (06:13→20:37)
[2022-11-03 08:11] LABS: Anisocytosis Slight; HGB 7.5 gm/dL (11.4-16.0); Hypochromasia Slight; MCH 35.3 pg (25.0-35.0); MCHC 34.1 g/dL (31.0-37.0); MCV 103.4 fL (80.0-100.0); Macrocytosis Moderate; Mean Platelet Volume 8.6; Platelet Count 237 k/uL (150-450); RBC 2.12 m/uL (3.80-5.40); RDW 16.6 % (11.5-15.5); WBC 7.4 k/uL (3.8-10.6)
[2022-11-03 08:22] LABS: Anion Gap 13 mmol/L; Blood Urea Nitrogen 54 mg/dL (7-17); Calcium 6.6 mg/dL (8.4-10.2); Carbon Dioxide 26 mmol/L (22-30); Chloride 88 mmol/L (98-107); Glucose 105 mg/dL (74-99); Magnesium 1.6 mg/dL (1.6-2.3); Potassium 3.4 mmol/L (3.5-5.1); Sodium 127 mmol/L (137-145)
[2022-11-03 08:29] LABS: African American GFR (CKD) 4 (>60 ml/min/1.73 sqM); Non-African American GFR(CKD) 3 (>60 ml/min/1.73 sqM)
[2022-11-03] MEDS: lisinopriL 10 MG TAB PO SCH ×2 (09:15→20:47)
[2022-11-03] MEDS: METOPROLOL TARTRATE 25 MG TAB PO SCH ×2 (09:15→20:47)
[2022-11-03] MEDS: RENAPLEX D PO SCH (09:33)
[2022-11-03] MEDS ORDERED: POTASSIUM CHLORIDE ER 20 MEQ TAB.ER PO STA (10:17)
[2022-11-03] MEDS ORDERED: CEFEPIME 2 GM in SODIUM CHLORIDE 0.9% 100 ML IVPB STA (11:16)
--- NOTE | 2022-11-03 11:31 | P.NPCON ---
History of Present Illness - Reason for Consult end stage renal disease - History of Present Illness Patient is a 42-year-old female with end-stage renal disease on peritoneal dialysis. Patient is admitted to the hospital with abdominal pain and cloudy bag. Patient complained of nausea. Patient did receive vancomycin and 2 g intraperitoneal on 10/30/2022. She has been receiving ceftazidime as well. Ceftazidime was ordered once a day intraperitoneal but patient has not received any antibiotics she came into the hospital. Complaining of significant abdominal pain. CT of the abdomen showed evidence of small bowel obstruction as well. Last bowel movement 2 days ago Surgical consult is pending. Preliminary with cultures from outpatient are growing gram-negative bacilli. Review of Systems As per HPI 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., SWOLLEN OPTICAL NERVE & RETINA , STATES VISION BLURRED AT TIMES., PSEUDO TUMOR BRAIN., HX GOUT, ANEMIA, KIDNEY FAILURE.-HAS DIALYSIS CATHETER AND RECEIVING HEMODIALYSIS -SAT-SAT. HX FSGS (FOCAL SEGMENTAL GLOMERULOSCLEROSIS) History of Any Multi-Drug Resistant Organisms: None Reported Past Surgical History: Section Additional Past Surgical History / Comment(s): PD catheter 01/27/2019 Past Anesthesia/Blood Transfusion Reactions: No Reported Reaction Past Psychological History: Anxiety Additional Psychological History / Comment(s): CURRENT ANXIETY Smoking Status: Former smoker Past Alcohol Use History: Occasional Additional Past Alcohol Use History / Comment(s): QUIT SMOKING 2001, SMOKED 1/2 PPD, SMOKED 3 YEARS. Past Drug Use History: Marijuana Additional Drug Use History / Comment(s): . - Past Family History Father Family Medical History: Myocardial Infarction ([place]) Additional Family Medical History / Comment(s): FATHER AT AGE 35 OF MASSIVE HEART ATTACK Mother Family Medical History: Cancer, Deep Vein Thrombosis (DVT) Additional Family Medical History / Comment(s): SKIN CANCER Medications and Allergies Home Medications Medication Instructions Recorded Confirmed Type Metoprolol Tartrate [Lopressor] 50 mg PO BID 11/11/21 11/02/22 History Renaplex-D 1 tab PO DAILY 11/11/21 11/02/22 History Velphoro 500mg Chewable Tab 1,000 mg PO TID-W/MEALS 11/02/22 11/02/22 History Velphoro 500mg Chewable Tab 500 mg PO DAILY PRN 11/02/22 11/02/22 History lisinopriL [Zestril] 20 mg PO BID 11/02/22 11/02/22 History Allergies Allergy/AdvReac Type Severity Reaction Status Date / Time iron Allergy Severe Nausea & Verified 11/02/22 15:55 Vomiting & Diarrhea Pertussis Vaccines Allergy Unknown Verified 11/02/22 15:55 ciprofloxacin [From Cipro] AdvReac UNCONTROLLABLE Verified 11/02/22 15:55 EMOTIONS PER PT Physical Exam Vitals: Vital Signs Temp Pulse Pulse Resp BP BP Pulse Ox 11/03/22 06:57 98.9 F 84 16 170/103 93 L 11/03/22 02:00 98.2 F 84 17 164/97 94 L 11/02/22 20:00 98.5 F 93 16 162/92 95 11/02/22 17:57 93 154/89 11/02/22 16:55 99.5 F 96 16 173/105 98 11/02/22 16:36 96 18 161/97 97 11/02/22 16:29 95 19 151/93 96 Intake and Output 11/02/22 11/03/22 11/03/22 22:59 06:59 14:59 Other: Voiding Method CAPD # Voids 0 Weight 103.873 kg Patient is awake, comfortable, in no acute distress Alert oriented 3 Examination of the heart S1 and S2 Examination of the lungs bilateral breath sounds are heard Abdomen is soft with generalized tenderness Examination of lower extremities shows no significant edema 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 End-stage renal disease on peritoneal dialysis 2. PD peritonitis with initial fluid cultures as outpatient when gram-negative bacilli. Status post 2 g vancomycin on 10/30/2022 and receiving Fortaz 2 g IP daily since 10/30/2022. . She will be restarted on Fortaz and I will give her 1 dose of IV cefepime. Infectious disease will be consult it as well. 3. Small bowel obstruction 4. Anemia of chronic disease next 5. CK D mineral bone disorder 6. Hypertension, uncontrolled partly from pain Plan: Maintain patient on antibiotics IP and I will give 1 dose of IV cefepime as well. Check vancomycin level Check PD fluid cell count daily Consult ID Await surgical consult for bowel obstruction Discussed with patient regarding possible need for removal of PD catheter if cell count does not improve.
[2022-11-03] MEDS ORDERED: [UNRECOGNIZED DRUG - OTHER] INTRAPERIT SCH (12:00)
[2022-11-03] MEDS ORDERED: HEPARIN SODIUM INTRAPERIT SCH ×2 (12:00→18:00)
[2022-11-03] MEDS ORDERED: CEFTAZIDIME INTRAPERIT SCH (12:00)
[2022-11-03] MEDS: DARBEPOETIN ALFA 100MCG/0.5ML SYRINGE SQ SCH (15:01)
--- NOTE | 2022-11-03 15:43 | P.GSCN ---
History of Present Illness Consult date: 11/03/22 History of present illness: Consulted for bowel obstruction. Patient has ESRD with dialysis catheter. CT reviewed with dialysate from peritoneal dialysis. No transition point for bowel obstruction Recommend SBFT study NG tube for SBO Diffusely tender. Dialysis catheter was placed 3 years ago Last malfunction was in March with cutting tube. 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., SWOLLEN OPTICAL NERVE & RETINA , STATES VISION BLURRED AT TIMES., PSEUDO TUMOR BRAIN., HX GOUT, ANEMIA, KIDNEY FAILURE.-HAS DIALYSIS CATHETER AND RECEIVING HEMODIALYSIS -SAT-SAT. HX FSGS (FOCAL SEGMENTAL GLOMERULOSCLEROSIS) History of Any Multi-Drug Resistant Organisms: None Reported Past Surgical History: Section Additional Past Surgical History / Comment(s): PD catheter 01/27/2019 Past Anesthesia/Blood Transfusion Reactions: No Reported Reaction Past Psychological History: Anxiety Additional Psychological History / Comment(s): CURRENT ANXIETY Smoking Status: Former smoker Past Alcohol Use History: Occasional Additional Past Alcohol Use History / Comment(s): QUIT SMOKING 2001, SMOKED 1/2 PPD, SMOKED 3 YEARS. Past Drug Use History: Marijuana Additional Drug Use History / Comment(s): . - Past Family History Father Family Medical History: Myocardial Infarction ([place]) Additional Family Medical History / Comment(s): FATHER AT AGE 35 OF MASSIVE HEART ATTACK Mother Family Medical History: Cancer, Deep Vein Thrombosis (DVT) Additional Family Medical History / Comment(s): SKIN CANCER Medications and Allergies Home Medications Medication Instructions Recorded Confirmed Type Metoprolol Tartrate [Lopressor] 50 mg PO BID 11/11/21 11/02/22 History Renaplex-D 1 tab PO DAILY 11/11/21 11/02/22 History Velphoro 500mg Chewable Tab 1,000 mg PO TID-W/MEALS 11/02/22 11/02/22 History Velphoro 500mg Chewable Tab 500 mg PO DAILY PRN 11/02/22 11/02/22 History lisinopriL [Zestril] 20 mg PO BID 11/02/22 11/02/22 History Allergies Allergy/AdvReac Type Severity Reaction Status Date / Time iron Allergy Severe Nausea & Verified 11/02/22 15:55 Vomiting & Diarrhea Pertussis Vaccines Allergy Unknown Verified 08/04/23 15:55 ciprofloxacin [From Cipro] AdvReac UNCONTROLLABLE Verified 11/02/22 15:55 EMOTIONS PER PT Surgical - Exam Vital Signs Temp Pulse Resp BP Pulse Ox 99 F 101 H 16 155/94 100 11/02/22 11:03 11/02/22 11:03 11/02/22 11:03 11/02/22 11:03 11/02/22 11:03 Results - Labs 11/03/22 07:51 11/03/22 07:51 Abnormal Lab Results - Last 24 Hours (Table) 11/02/22 11/03/22 11/03/22 Range/Units 16:19 07:51 07:51 RBC 2.12 L (3.80-5.40) m/uL Hgb 7.5 L (11.4-16.0) gm/dL Hct 22.0 L (34.0-46.0) % MCV 103.4 H (80.0-100.0) fL MCH 35.3 H (25.0-35.0) pg RDW 16.6 H (11.5-15.5) % Sodium 127 L (137-145) mmol/L Potassium 3.4 L (3.5-5.1) mmol/L Chloride 88 L (98-107) mmol/L BUN 54 H (7-17) mg/dL Creatinine 12.53 H* (0.52-1.04) mg/dL Glucose 105 H (74-99) mg/dL Calcium 6.6 L (8.4-10.2) mg/dL Fluid Appearance Cloudy A (Clear) Diabetes panel 11/03/22 Range/Units 07:51 Sodium 127 L (137-145) mmol/L Potassium 3.4 L (3.5-5.1) mmol/L Chloride 88 L (98-107) mmol/L Carbon Dioxide 26 (22-30) mmol/L BUN 54 H (7-17) mg/dL Creatinine 12.53 H* (0.52-1.04) mg/dL Glucose 105 H (74-99) mg/dL Calcium 6.6 L (8.4-10.2) mg/dL Calcium panel 11/03/22 Range/Units 07:51 Calcium 6.6 L (8.4-10.2) mg/dL Pituitary panel 11/03/22 Range/Units 07:51 Sodium 127 L (137-145) mmol/L Potassium 3.4 L (3.5-5.1) mmol/L Chloride 88 L (98-107) mmol/L Carbon Dioxide 26 (22-30) mmol/L BUN 54 H (7-17) mg/dL Creatinine 12.53 H* (0.52-1.04) mg/dL Glucose 105 H (74-99) mg/dL Calcium 6.6 L (8.4-10.2) mg/dL Adrenal panel 11/03/22 Range/Units 07:51 Sodium 127 L (137-145) mmol/L Potassium 3.4 L (3.5-5.1) mmol/L Chloride 88 L (98-107) mmol/L Carbon Dioxide 26 (22-30) mmol/L BUN 54 H (7-17) mg/dL Creatinine 12.53 H* (0.52-1.04) mg/dL Glucose 105 H (74-99) mg/dL Calcium 6.6 L (8.4-10.2) mg/dL
[2022-11-03] MEDS ORDERED: DIALYSIS DEX INTRAPERIT SCH (18:00)
--- NOTE | 2022-11-03 21:58 | P.CONS ---
History of Present Illness - Reason for Consult Consult date: 11/03/22 PD peritonitis Requesting physician: Analisa Cruz - Chief Complaint Abdominal pain and cloudy fluid x few days - History of Present Illness Patient is a 42-year-old female with a past medical history negative for hypertension seizure disorder history of end-stage renal disease on peritoneal dialysis since December 2018 did have 1 previous episode of infection treated with antibiotics patient started having a problem with abdominal pain that started on Saturday is about 4 days before presentation to the hospital patient also patient was describing abdominal pain to be more of a generalized lower abdominal area intensity about 8 out of 10 no radiation has felt nauseated but no vomiting denies any diarrhea or other constipation patient was diagnosed with the peritonitis and did receive a dose of vancomycin and the peritoneal on 10/30/2022 and has been receiving ceftazidime in her peritoneal exchanges patient presenting to the hospital with worsening abdominal pain on presentation to the hospital patient did have a low-grade fever of 99.5 F patient was not tachycardic hypotensive or hypoxic patient did have a normal white count BUN and creatinine has been elevated pressure was 3.4 peritoneal fluid was cloudy with 4500 WBC culture has been obtained which are currently pending patient did received a dose of ceftazidime and her peritoneal back and cefepime in the IV infectious disease was consulted for further management of antibiotic therapy, patient did have a CT of abdominal pelvis moderate abdominal pelvic ascites dilated small bowel loops with air-fluid level suggestive of small bowel obstruction moderate hydrophic gallbladder Review of Systems Positive point and negatives has been mentioned in the HPI, complete review of systems was performed and all other systems are negative 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., SWOLLEN OPTICAL NERVE & RETINA , STATES VISION BLURRED AT TIMES., PSEUDO TUMOR BRAIN., HX GOUT, ANEMIA, KIDNEY FAILURE.-HAS DIALYSIS CATHETER AND RECEIVING HEMODIALYSIS -SAT-SAT. HX FSGS (FOCAL SEGMENTAL GLOMERULOSCLEROSIS) History of Any Multi-Drug Resistant Organisms: None Reported Past Surgical History: Section Additional Past Surgical History / Comment(s): PD catheter 01/27/2019 Past Anesthesia/Blood Transfusion Reactions: No Reported Reaction Past Psychological History: Anxiety Additional Psychological History / Comment(s): CURRENT ANXIETY Smoking Status: Former smoker Past Alcohol Use History: Occasional Additional Past Alcohol Use History / Comment(s): QUIT SMOKING 2001, SMOKED 1/2 PPD, SMOKED 3 YEARS. Past Drug Use History: Marijuana Additional Drug Use History / Comment(s): . - Past Family History Father Family Medical History: Myocardial Infarction ([place]) Additional Family Medical History / Comment(s): FATHER AT AGE 35 OF MASSIVE HEART ATTACK Mother Family Medical History: Cancer, Deep Vein Thrombosis (DVT) Additional Family Medical History / Comment(s): SKIN CANCER Medications and Allergies Home Medications Medication Instructions Recorded Confirmed Type Metoprolol Tartrate [Lopressor] 50 mg PO BID 11/11/21 11/02/22 History Renaplex-D 1 tab PO DAILY 11/11/21 11/02/22 History Velphoro 500mg Chewable Tab 1,000 mg PO TID-W/MEALS 11/02/22 11/02/22 History Velphoro 500mg Chewable Tab 500 mg PO DAILY PRN 11/02/22 11/02/22 History lisinopriL [Zestril] 20 mg PO BID 11/02/22 11/02/22 History Darbepoetin Shahram [Aranesp] 100 mcg SQ Q7D #4 each 11/23/22 Rx Famotidine [Pepcid] 20 mg PO DAILY #30 tablet 11/23/22 Rx Ondansetron [Zofran] 4 mg PO Q8HR PRN #20 tab 11/23/22 Rx Simethicone Chew [Mylicon Chew] 160 mg PO TID #40 tab 11/23/22 Rx Sodium Bicarbonate Tab 650 mg PO BID #60 tab 11/23/22 Rx cefUROXime axetiL [Ceftin] 500 mg PO BID 10 Days #20 tab 11/23/22 Rx hydrALAZINE HCL [Apresoline] 50 mg PO TID #90 tab 11/23/22 Rx metroNIDAZOLE [Flagyl] 500 mg PO TID 10 Days #30 tab 11/23/22 Rx Allergies Allergy/AdvReac Type Severity Reaction Status Date / Time iron Allergy Severe Nausea & Verified 11/02/22 15:55 Vomiting & Diarrhea Pertussis Vaccines Allergy Unknown Verified 11/02/22 15:55 ciprofloxacin [From Cipro] AdvReac UNCONTROLLABLE Verified 11/02/22 15:55 EMOTIONS PER PT Physical Exam Vitals: Vital Signs Temp Pulse Pulse Resp BP BP Pulse Ox 11/03/22 06:57 98.9 F 84 16 170/103 93 L 11/03/22 02:00 98.2 F 84 17 164/97 94 L 11/02/22 20:00 98.5 F 93 16 162/92 95 11/02/22 17:57 93 154/89 11/02/22 16:55 99.5 F 96 16 173/105 98 11/02/22 16:36 96 18 161/97 97 11/02/22 16:29 95 19 151/93 96 Intake and Output 11/02/22 11/03/22 11/03/22 22:59 06:59 14:59 Other: Voiding Method CAPD # Voids 0 Weight 103.873 kg GENERAL DESCRIPTION: Middle-aged female lying in bed, no distress. No tachypnea or accessory muscle of respiration use. HEENT: Shows Pallor , no scleral icterus. Oral mucous membrane is dry. No pharyngeal erythema or thrush NECK: Trachea central, no thyromegaly. LUNGS: Unlabored breathing. Clear to auscultation anteriorly. No wheeze or crackle. HEART: S1, S2, regular rate and rhythm. No loud murmur ABDOMEN: Soft, mild distention and tenderness EXTREMITIES: No edema of feet. SKIN: No rash, no masses palpable. NEUROLOGICAL: The patient is awake, alert, oriented x3, mood and affect normal. Results CBC & Chem 7: 11/23/22 07:28 11/23/22 07:28 Labs: Abnormal Lab Results - Last 24 Hours (Table) 11/02/22 11/02/22 11/02/22 Range/Units 11:30 11:30 16:19 RBC 2.36 L (3.80-5.40) m/uL Hgb 8.2 L (11.4-16.0) gm/dL Hct 23.8 L (34.0-46.0) % MCV 101.2 H (80.0-100.0) fL MCH (25.0-35.0) pg RDW 16.7 H (11.5-15.5) % Lymphocytes # 0.4 L (1.0-4.8) k/uL Sodium 126 L (137-145) mmol/L Potassium 3.4 L (3.5-5.1) mmol/L Chloride 86 L (98-107) mmol/L BUN 52 H (7-17) mg/dL Creatinine 12.04 H* (0.52-1.04) mg/dL Glucose 109 H (74-99) mg/dL Calcium 7.0 L (8.4-10.2) mg/dL Total Protein 5.3 L (6.3-8.2) g/dL Albumin 2.6 L (3.5-5.0) g/dL Fluid Appearance Cloudy A (Clear) 11/03/22 11/03/22 Range/Units 07:51 07:51 RBC 2.12 L (3.80-5.40) m/uL Hgb 7.5 L (11.4-16.0) gm/dL Hct 22.0 L (34.0-46.0) % MCV 103.4 H (80.0-100.0) fL MCH 35.3 H (25.0-35.0) pg RDW 16.6 H (11.5-15.5) % Lymphocytes # (1.0-4.8) k/uL Sodium 127 L (137-145) mmol/L Potassium 3.4 L (3.5-5.1) mmol/L Chloride 88 L (98-107) mmol/L BUN 54 H (7-17) mg/dL Creatinine 12.53 H* (0.52-1.04) mg/dL Glucose 105 H (74-99) mg/dL Calcium 6.6 L (8.4-10.2) mg/dL Total Protein (6.3-8.2) g/dL Albumin (3.5-5.0) g/dL Fluid Appearance (Clear) Assessment and Plan (1) Peritonitis associated with continuous ambulatory peritoneal dialysis Current Visit: Yes Status: Acute Code(s): T80.89XA - OTH COMP FOL INFUSION, TRANSFUSE AND THERAPUTC INJECT, INIT; K65.9 - PERITONITIS, UNSPECIFIED; Z99.2 - DEPENDENCE ON RENAL DIALYSIS SNOMED Code(s): 458644989 Plan: 1patient presented hospital abdominal pain cloudy peritoneal fluid did have a significant elevated white count in the peritoneal fluid likely secondary to PD catheter associated peritonitis patient did not have any evidence of abdominal infection at the site of insertion of the PD catheter he will need to cover for the gram-positive skin emelina to the likely pathogen underlying gram-negative infection less likely not excluded 2-patient also have evidence of ileus on the CT may be contributing some of her abdominal pain 3-patient has received a dose of vancomycin in the peritoneal back to continue and also Fortaz with peritoneal dialysis daily 4-blood cultures and check inflammatory markers We will follow on clinical condition and cultures to further adjust medication if needed Thank you for this consultation we will follow the patient along with you Dictation was produced using [employer] dictation software. please excuse any grammatical, word or spelling errors. Time with Patient: Greater than 30
[2022-11-04] MEDS: HYDROmorphone 1 MG/ML 1 ML SYRINGE IVP PRN ×4 (00:38→21:14)
[2022-11-04] MEDS: HEPARIN SODIUM INTRAPERIT SCH ×4 (03:07→15:30)
[2022-11-04] MEDS: DIALYSIS DEX INTRAPERIT SCH ×3 (03:07→12:47)
[2022-11-04] MEDS ORDERED: DIALYSIS DEX INTRAPERIT SCH ×3 (06:00)
[2022-11-04] MEDS ORDERED: HEPARIN SODIUM INTRAPERIT SCH ×4 (06:00→12:00)
[2022-11-04] MEDS: SEVELAMER 800 MG TAB PO SCH ×3 (06:32→16:59)
[2022-11-04] MEDS: METOPROLOL TARTRATE 25 MG TAB PO SCH ×2 (08:34→21:15)
[2022-11-04] MEDS: lisinopriL 10 MG TAB PO SCH ×2 (08:34→21:15)
[2022-11-04 09:02] LABS: HCT 22.2 % (37.2-46.3); HGB 7.2 d/dL (12.0-15.0); MCH 34.3 pg (27.0-32.0); MCHC 32.4 d/dL (32.0-37.0); MCV 105.7 FL (80.0-97.0); Mean Platelet Volume 9.9 FL (9.5-12.2); NRBC Per 100 WBC 0 X 10*3/uL (0.00-0.01); Platelet Count 276 X 10*3/uL (140-440); RDW 16.3 % (11.5-14.5); WBC 8.68 X 10*3/uL (4.50-10.00)
[2022-11-04] MEDS: RENAPLEX D PO SCH (09:09)
[2022-11-04 10:17] LABS: Blood Urea Nitrogen 55.9 mg/dL (9.0-27.0); Calcium 7.4 mg/dL (8.7-10.3); Carbon Dioxide 28.6 mmol/L (21.6-31.8); Chloride 87 mmol/L (96-109); Glucose 118 mg/dL (70-110); Potassium 3.5 mmol/L (3.5-5.5); Sodium 134 mmol/L (135-145); Vancomycin,Random 9.6 UG/ML (0.0-40.0)
[2022-11-04 11:36] LABS: Appearance,BF Clear (Clear)
--- NOTE | 2022-11-04 11:53 | P.PN ---
Subjective Patient is seen for follow-up for end-stage renal disease. Patient is admitted to the hospital with abdominal pain and PD peritonitis. Initial fluid cultures as outpatient were growing gram-negative organisms. Patient is currently maintained on ceftazidime 2 g daily IP. Received a dose of IV cefepime yesterday as well. Status post IP vancomycin as outpatient on 10/30/2022. Vancomycin level line 0.6 on 11/04/2022 Patient was also noted to have small bowel obstruction and currently has an NG tube in place. Abdominal pain slightly improved but still persistent. Fluid cell count is pending from today. I have discussed with the patient regarding possible discontinuation of PD and removal of PD catheter if the cell count has not decreased. Objective - Vital Signs Vital signs: Vital Signs Temp 98.3 F 11/04/22 09:19 Pulse 76 11/04/22 09:19 Resp 16 11/04/22 09:19 BP 142/86 11/04/22 09:19 Pulse Ox 93 L 11/04/22 09:19 FiO2 Intake & Output 11/03/22 11/04/22 11/04/22 18:59 06:59 18:59 Output Total 1300 Balance -1300 Weight 101 kg Output: Gastric Drainage 1300 Other: Voiding Method CAPD CAPD CAPD # Voids 0 0 - Exam Patient is awake, comfortable, in no acute distress Alert oriented 3 Examination of the heart S1 and S2 Examination of the lungs bilateral breath sounds are heard Abdomen is soft with generalized tenderness Examination of lower extremities shows no significant edema 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 ADMIN exam grossly intact - Labs CBC & Chem 7: 11/04/22 04:00 11/04/22 04:00 Labs: Abnormal Lab Results - Last 24 Hours (Table) 11/04/22 11/04/22 Range/Units 04:00 04:00 RBC 2.10 L (4.10-5.20) X 10*6/uL Hgb 7.2 L (12.0-15.0) d/dL Hct 22.2 L (37.2-46.3) % MCV 105.7 H (80.0-97.0) FL MCH 34.3 H (27.0-32.0) pg RDW 16.3 H (11.5-14.5) % Sodium 134 L (135-145) mmol/L Chloride 87 L (96-109) mmol/L Anion Gap 18.40 H (4.00-12.00) mmol/L BUN 55.9 H (9.0-27.0) mg/dL Creatinine 13.0 H* (0.6-1.5) mg/dL Est GFR (CKD-EPI) 3 L (>=60) BUN/Creatinine Ratio 4.30 L (12.00-20.00) Ratio Glucose 118 H (70-110) mg/dL Calcium 7.4 L (8.7-10.3) mg/dL C-Reactive Protein 39.40 H (0.00-0.80) mg/dL Microbiology - Last 24 Hours (Table) 11/02/22 16:19 Gram Stain - Preliminary Peritoneal Fluid Body Fluid Culture - Preliminary Assessment and Plan Assessment: 1. End-stage renal disease on peritoneal dialysis 2. PD peritonitis with initial fluid cultures as outpatient when gram-negative bacilli. Status post 2 g vancomycin on 10/30/2022 and receiving Fortaz 2 g IP daily since 10/30/2022. . She will be restarted on Fortaz and I will give her 1 dose of IV cefepime. Infectious disease will be consult it as well. 3. Small bowel obstruction 4. Anemia of chronic disease next 5. CK D mineral bone disorder 6. Hypertension, uncontrolled partly from pain Plan: Maintain patient on antibiotics IP Repeat another dose of vancomycin IP Check PD fluid cell count daily Discussed with patient regarding possible need for removal of PD catheter if cell count does not improve.
[2022-11-04] MEDS ORDERED: [UNRECOGNIZED DRUG - OTHER] INTRAPERIT SCH (12:00)
[2022-11-04] MEDS ORDERED: CEFTAZIDIME INTRAPERIT SCH (12:00)
--- NOTE | 2022-11-04 13:09 | P.HPIM ---
History of Present Illness H&P Date: 11/02/22 Chief Complaint: Abdominal pain 42-year-old female, history of hypertension, seizure disorder, chronic kidney disease/dialysis who presents to the emergency department for abdominal pain. Patient states that abdominal pain has been going on for 2-3 days. She receives peritoneal dialysis every 6 hours and was diagnosed with peritonitis 2 days ago by the individual who manages her peritoneal dialysis. She was started on vancomycin and a cephalosporin antibiotic that she cannot recall the name of. She been on antibiotics for 2 days. She puts the medications in her dialysis bags. States that she continues to have abdominal pain despite the antibiotics. Reports that she has not had a bowel movement in 2 days, and prior to that she only had runny stool. Also reports ongoing nausea and vomiting and feels dehydrated. Denies any fevers, chills, sore throat, cough, dyspnea, chest pain, palpitations, abdominal pain, nausea, vomiting, diarrhea, back pain, or headac hes. -- Blood work completed reveals a WBC of 8.1, hemoglobin of 8.2, platelet count of 261, sodium 126, potassium 3.4, BUN/creatinine of 52/12.0, consistent with end-stage renal disease, lactic acid levels of 1.5 Computed tomography scan of the abdomen and pelvis obtained revealing a small bowel obstruction. She does also have moderate abdominopelvic ascites and enteritis. Patient admitted to medicine for further management of small bowel obstruction and hyponatremia. Consult placed for general surgery regarding the small bowel obstruction. Consult was also placed for nephrology given that she is a peritoneal dialysis patient. Review of Systems REVIEW OF SYSTEMS: CONSTITUTIONAL: No fever, no malaise, no fatigue. HEENT: No recent visual problems or hearing problems. Denied any sore throat. CARDIOVASCULAR: No chest pain, orthopnea, PND, no palpitations, no syncope. PULMONARY: No shortness of breath, no cough, no hemoptysis. GASTROINTESTINAL: No diarrhea, no nausea, no vomiting, no abdominal pain. NEUROLOGICAL: No headaches, no weakness, no numbness. HEMATOLOGICAL: Denies any bleeding or petechiae. GENITOURINARY: Denies any burning micturition, frequency, or urgency. MUSCULOSKELETAL/RHEUMATOLOGICAL: Denies any joint pain, swelling, or any muscle pain. ENDOCRINE: Denies any polyuria or polydipsia. The rest of the 14-point review of systems is negative. 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., SWOLLEN OPTICAL NERVE & RETINA , STATES VISION BLURRED AT TIMES., PSEUDO TUMOR BRAIN., HX GOUT, ANEMIA, KIDNEY FAILURE.-HAS DIALYSIS CATHETER AND RECEIVING HEMODIALYSIS MO-SAT-SAT. HX FSGS (FOCAL SEGMENTAL GLOMERULOSCLEROSIS) History of Any Multi-Drug Resistant Organisms: None Reported Past Surgical History: Section Additional Past Surgical History / Comment(s): PD catheter 01/27/2019 Past Anesthesia/Blood Transfusion Reactions: No Reported Reaction Past Psychological History: Anxiety Smoking Status: Former smoker Past Alcohol Use History: Occasional Past Drug Use History: Marijuana - Past Family History Father Family Medical History: Myocardial Infarction ([place]) Additional Family Medical History / Comment(s): FATHER AT AGE 35 OF MASSIVE HEART ATTACK Mother Family Medical History: Cancer, Deep Vein Thrombosis (DVT) Additional Family Medical History / Comment(s): SKIN CANCER Medications and Allergies Home Medications Medication Instructions Recorded Confirmed Type Metoprolol Tartrate [Lopressor] 50 mg PO BID 11/11/21 11/02/22 History Renaplex-D 1 tab PO DAILY 11/11/21 11/02/22 History Velphoro 500mg Chewable Tab 1,000 mg PO TID-W/MEALS 11/02/22 11/02/22 History Velphoro 500mg Chewable Tab 500 mg PO DAILY PRN 11/02/22 11/02/22 History lisinopriL [Zestril] 20 mg PO BID 11/02/22 11/02/22 History Allergies Allergy/AdvReac Type Severity Reaction Status Date / Time iron Allergy Severe Nausea & Verified 11/02/22 15:55 Vomiting & Diarrhea Pertussis Vaccines Allergy Unknown Verified 11/02/22 15:55 ciprofloxacin [From Cipro] AdvReac UNCONTROLLABLE Verified 11/02/22 15:55 EMOTIONS PER PT Physical Exam Vitals: Vital Signs Temp Pulse Resp BP Pulse Ox 11/02/22 11:03 99 F 101 H 16 155/94 100 Intake and Output 11/02/22 11/02/22 11/02/22 06:59 14:59 22:59 Other: Weight 103.873 kg General appearance: alert, in distress Head exam: Present: atraumatic, normocephalic, normal inspection Respiratory exam: Present: normal lung sounds bilaterally. Absent: respiratory distress, wheezes, rales, rhonchi, stridor Cardiovascular Exam: Present: regular rate, normal rhythm, normal heart sounds. Absent: systolic murmur, diastolic murmur, rubs, gallop, clicks GI/Abdominal exam: Present: soft, tenderness (diffuse), hypoactive bowel sounds. Absent: distended Neurological exam: Present: alert, oriented X3, CN II-XII intact Psychiatric exam: Present: normal affect, normal mood Skin exam: Present: warm, dry, intact, normal color. Absent: rash Results CBC & Chem 7: 11/03/22 07:51 11/03/22 07:51 Labs: Abnormal Lab Results - Last 24 Hours (Table) 11/02/22 11/02/22 Range/Units 11:30 11:30 RBC 2.36 L (3.80-5.40) m/uL Hgb 8.2 L (11.4-16.0) gm/dL Hct 23.8 L (34.0-46.0) % MCV 101.2 H (80.0-100.0) fL RDW 16.7 H (11.5-15.5) % Lymphocytes # 0.4 L (1.0-4.8) k/uL Sodium 126 L (137-145) mmol/L Potassium 3.4 L (3.5-5.1) mmol/L Chloride 86 L (98-107) mmol/L BUN 52 H (7-17) mg/dL Creatinine 12.04 H* (0.52-1.04) mg/dL Glucose 109 H (74-99) mg/dL Calcium 7.0 L (8.4-10.2) mg/dL Total Protein 5.3 L (6.3-8.2) g/dL Albumin 2.6 L (3.5-5.0) g/dL Assessment and Plan Assessment: 1. Small bowel obstruction - Patient has been discussed with general surgery and is recommended NG tube placement; we will maintain strict MIRANDA's and daily weights; monitor electrolytes and renal function - Surgical consult is pending 2. Hyponatremia; patient has received fluids in form of normal saline; we will monitor and replenish electrolytes closely 3. Abdominal pain/ascites; rule out acute peritonitis; patient is a 50 mg IV and ID is consulted 4. Hypokalemia; patient has been supplemented Dwight 40 mg 1 5. Hypertension; patient remains on metoprolol 50 mg twice a day along with lisinopril 20 mg twice a day 6. Seizure disorder; patient currently not on anti- seizure medication DVT prophylaxis; SCDs/subcu heparin CODE STATUS; full code
--- NOTE | 2022-11-04 13:11 | P.PN ---
Subjective Progress Note Date: 11/03/22 42-year-old female, history of hypertension, seizure disorder, chronic kidney disease/dialysis who presents to the emergency department for abdominal pain. Patient states that abdominal pain has been going on for 2-3 days. She receives peritoneal dialysis every 6 hours and was diagnosed with peritonitis 2 days ago by the individual who manages her peritoneal dialysis. She was started on vancomycin and a cephalosporin antibiotic that she cannot recall the name of. She been on antibiotics for 2 days. She puts the medications in her dialysis bags. States that she continues to have abdominal pain despite the antibiotics. Reports that she has not had a bowel movement in 2 days, and prior to that she only had runny stool. Also reports ongoing nausea and vomiting and feels dehydrated. Denies any fevers, chills, sore throat, cough, dyspnea, chest pain, palpitations, abdominal pain, nausea, vomiting, diarrhea, back pain, or headaches. -- Blood work completed reveals a WBC of 8.1, hemoglobin of 8.2, platelet count of 261, sodium 126, potassium 3.4, BUN/creatinine of 52/12.0, consistent with end-stage renal disease, lactic acid levels of 1.5 Computed tomography scan of the abdomen and pelvis obtained revealing a small bowel obstruction. She does also have moderate abdominopelvic ascites and enteritis. Patient admitted to medicine for further management of small bowel obstruction and hyponatremia. Consult placed for general surgery regarding the small bowel obstruction. Consult was also placed for nephrology given that she is a peritoneal dialysis patient. Objective - Vital Signs Vital signs: Vital Signs Temp 98.9 F 11/03/22 06:57 Pulse 84 11/03/22 06:57 Resp 16 11/03/22 06:57 BP 170/103 11/03/22 06:57 Pulse Ox 93 L 11/03/22 06:57 FiO2 Intake & Output 11/02/22 11/03/22 11/03/22 18:59 06:59 18:59 Weight 103.873 kg Other: Voiding Method CAPD # Voids 0 - Exam General appearance: alert, in distress Head exam: Present: atraumatic, normocephalic, normal inspection Respiratory exam: Present: normal lung sounds bilaterally. Absent: respiratory distress, wheezes, rales, rhonchi, stridor Cardiovascular Exam: Present: regular rate, normal rhythm, normal heart sounds. Absent: systolic murmur, diastolic murmur, rubs, gallop, clicks GI/Abdominal exam: Present: soft, tenderness (diffuse), hypoactive bowel sounds. Absent: distended Neurological exam: Present: alert, oriented X3, CN II-XII intact Psychiatric exam: Present: normal affect, normal mood Skin exam: Present: warm, dry, intact, normal color. Absent: rash - Labs CBC & Chem 7: 11/04/22 04:00 11/04/22 04:00 Labs: Abnormal Lab Results - Last 24 Hours (Table) 11/02/22 11/03/22 11/03/22 Range/Units 16:19 07:51 07:51 RBC 2.12 L (3.80-5.40) m/uL Hgb 7.5 L (11.4-16.0) gm/dL Hct 22.0 L (34.0-46.0) % MCV 103.4 H (80.0-100.0) fL MCH 35.3 H (25.0-35.0) pg RDW 16.6 H (11.5-15.5) % Sodium 127 L (137-145) mmol/L Potassium 3.4 L (3.5-5.1) mmol/L Chloride 88 L (98-107) mmol/L BUN 54 H (7-17) mg/dL Creatinine 12.53 H* (0.52-1.04) mg/dL Glucose 105 H (74-99) mg/dL Calcium 6.6 L (8.4-10.2) mg/dL Fluid Appearance Cloudy A (Clear) Assessment and Plan Assessment: 1. Small bowel obstruction - Patient has been discussed with general surgery and is recommended NG tube placement; we will maintain strict MIRANDA's and daily weights; monitor electrolytes and renal function - Surgical consult is pending 2. Hyponatremia; patient has received fluids in form of normal saline; we will monitor and replenish electrolytes closely 3. Abdominal pain/ascites; rule out acute peritonitis; patient is a 50 mg IV and ID is consulted 4. Hypokalemia; patient has been supplemented Dwight 40 mg 1 5. Hypertension; patient remains on metoprolol 50 mg twice a day along with lisinopril 20 mg twice a day 6. Seizure disorder; patient currently not on anti- seizure medication DVT prophylaxis; SCDs/subcu heparin CODE STATUS; full code
--- NOTE | 2022-11-04 14:53 | P.PN ---
Subjective Progress Note Date: 11/04/22 She had over 1-L out from her NG tube bilious Less abdominal distention than yesterday She is not passing flatus Recommend small bowel follow through Continue NG tube Cont NPO Add simethicone Objective - Vital Signs Vital signs: Vital Signs Temp 98.4 F 11/04/22 13:42 Pulse 83 11/04/22 13:42 Resp 14 11/04/22 13:42 BP 90/52 11/04/22 13:42 Pulse Ox 96 11/04/22 13:42 FiO2 Intake & Output 11/03/22 11/04/22 11/04/22 18:59 06:59 18:59 Output Total 1300 Balance -1300 Weight 101 kg Output: Gastric Drainage 1300 Other: Voiding Method CAPD CAPD CAPD # Voids 0 0 - Labs CBC & Chem 7: 11/04/22 04:00 11/04/22 04:00 Labs: Abnormal Lab Results - Last 24 Hours (Table) 11/04/22 11/04/22 Range/Units 04:00 04:00 RBC 2.10 L (4.10-5.20) X 10*6/uL Hgb 7.2 L (12.0-15.0) d/dL Hct 22.2 L (37.2-46.3) % MCV 105.7 H (80.0-97.0) FL MCH 34.3 H (27.0-32.0) pg RDW 16.3 H (11.5-14.5) % Sodium 134 L (135-145) mmol/L Chloride 87 L (96-109) mmol/L Anion Gap 18.40 H (4.00-12.00) mmol/L BUN 55.9 H (9.0-27.0) mg/dL Creatinine 13.0 H* (0.6-1.5) mg/dL Est GFR (CKD-EPI) 3 L (>=60) BUN/Creatinine Ratio 4.30 L (12.00-20.00) Ratio Glucose 118 H (70-110) mg/dL Calcium 7.4 L (8.7-10.3) mg/dL C-Reactive Protein 39.40 H (0.00-0.80) mg/dL Microbiology - Last 24 Hours (Table) 11/02/22 16:19 Gram Stain - Preliminary Peritoneal Fluid Body Fluid Culture - Preliminary
[2022-11-04] MEDS: [UNRECOGNIZED DRUG - OTHER] INTRAPERIT SCH (15:30)
[2022-11-04] MEDS: CEFTAZIDIME INTRAPERIT SCH (15:30)
[2022-11-04] MEDS: SIMETHICONE 80 MG CHEWABLE PO SCH ×2 (15:56→21:40)
[2022-11-04] MEDS: CYCLOBENZAPRINE 5 MG TAB PO PRN (15:59)
--- NOTE | 2022-11-04 17:34 | P.PN ---
Subjective Progress Note Date: 11/04/22 Principal diagnosis: PD catheter associated peritonitis Patient is a 42-year-old female with a past medical history negative for hypertension seizure disorder history of end-stage renal disease on peritoneal dialysis since December 2018 did have 1 previous episode of infection treated with antibiotics patient started having a problem with abdominal pain that started on Saturday is about 4 days before presentation to the hospital, patient has been diagnosed with peritonitis also have CT abdominal pelvis suggestive of ileus. On today's evaluation that is 11/04/2022, the patient is afebrile the patient is currently breathing comfortably on room air sat complaint of abdominal distention and some discomfort, NG has been placed in by surgery no vomiting has been reported and had denies any diarrhea. Patient did have white count of 8.68, creatinine is 13, repeat peritoneal fluid white count is down to 168, vancomycin and was 9.6 Objective - Vital Signs Vital signs: Vital Signs Temp 98.4 F 11/04/22 13:42 Pulse 83 11/04/22 13:42 Resp 14 11/04/22 13:42 BP 90/52 11/04/22 13:42 Pulse Ox 96 11/04/22 13:42 FiO2 Intake & Output 11/03/22 11/04/22 11/04/22 18:59 06:59 18:59 Output Total 1300 Balance -1300 Weight 101 kg Output: Gastric Drainage 1300 Other: Voiding Method CAPD CAPD CAPD # Voids 0 0 - Exam GENERAL DESCRIPTION: Middle-aged female lying in bed in no distress RESPIRATORY SYSTEM: Unlabored breathing , decreased breath sounds at bases HEART: S1 S2 regular rate and rhythm , ABDOMEN: Soft , mild abdominal distention and tenderness EXTREMITIES: No edema feet - Labs CBC & Chem 7: 11/04/22 04:00 11/04/22 04:00 Labs: Abnormal Lab Results - Last 24 Hours (Table) 11/04/22 11/04/22 Range/Units 04:00 04:00 RBC 2.10 L (4.10-5.20) X 10*6/uL Hgb 7.2 L (12.0-15.0) d/dL Hct 22.2 L (37.2-46.3) % MCV 105.7 H (80.0-97.0) FL MCH 34.3 H (27.0-32.0) pg RDW 16.3 H (11.5-14.5) % Sodium 134 L (135-145) mmol/L Chloride 87 L (96-109) mmol/L Anion Gap 18.40 H (4.00-12.00) mmol/L BUN 55.9 H (9.0-27.0) mg/dL Creatinine 13.0 H* (0.6-1.5) mg/dL Est GFR (CKD-EPI) 3 L (>=60) BUN/Creatinine Ratio 4.30 L (12.00-20.00) Ratio Glucose 118 H (70-110) mg/dL Calcium 7.4 L (8.7-10.3) mg/dL C-Reactive Protein 39.40 H (0.00-0.80) mg/dL Microbiology - Last 24 Hours (Table) 11/02/22 16:19 Gram Stain - Preliminary Peritoneal Fluid Body Fluid Culture - Preliminary Assessment and Plan (1) Peritonitis associated with continuous ambulatory peritoneal dialysis Current Visit: Yes Status: Acute Code(s): T80.89XA - OTH COMP FOL INFUSION, TRANSFUSE AND THERAPUTC INJECT, INIT; K65.9 - PERITONITIS, UNSPECIFIED; Z99.2 - DEPENDENCE ON RENAL DIALYSIS SNOMED Code(s): 347080078 Plan: 1patient presented hospital abdominal pain cloudy peritoneal fluid did have a significant elevated white count in the peritoneal fluid likely secondary to PD catheter associated peritonitis patient did not have any evidence of abdominal infection at the site of insertion of the PD catheter he will need to cover for the gram-positive skin emelina to the likely pathogen underlying gram-negative infection less likely not excluded 2-patient also have evidence of ileus on the CT may be contributing some of her abdominal pain 3-patient has received a dose of vancomycin today as the patient vancomycin and was 9.6, the patient will continue with Fortaz with peritoneal dialysis daily, until the cultures are finalized Dictation was produced using [employer] dictation software. please excuse any grammatical, word or spelling errors. Time with Patient: Less than 30
--- NOTE | 2022-11-04 18:42 | P.PN ---
Subjective Progress Note Date: 11/04/22 42-year-old female, history of hypertension, seizure disorder, chronic kidney disease/dialysis who presents to the emergency department for abdominal pain. Patient states that abdominal pain has been going on for 2-3 days. She receives peritoneal dialysis every 6 hours and was diagnosed with peritonitis 2 days ago by the individual who manages her peritoneal dialysis. She was started on vancomycin and a cephalosporin antibiotic that she cannot recall the name of. She been on antibiotics for 2 days. She puts the medications in her dialysis bags. States that she continues to have abdominal pain despite the antibiotics. Reports that she has not had a bowel movement in 2 days, and prior to that she only had runny stool. Also reports ongoing nausea and vomiting and feels dehydrated. Denies any fevers, chills, sore throat, cough, dyspnea, chest pain, palpitations, abdominal pain, nausea, vomiting, diarrhea, back pain, or headaches. -- Blood work completed reveals a WBC of 8.1, hemoglobin of 8.2, platelet count of 261, sodium 126, potassium 3.4, BUN/creatinine of 52/12.0, consistent with end-stage renal disease, lactic acid levels of 1.5 Computed tomography scan of the abdomen and pelvis obtained revealing a small bowel obstruction. She does also have moderate abdominopelvic ascites and enteritis. Patient admitted to medicine for further management of small bowel obstruction and hyponatremia. Consult placed for general surgery regarding the small bowel obstruction. Consult was also placed for nephrology given that she is a peritoneal dialysis patient. 11/04/2022 the patient is seen and evaluated in room at bedside; patient remains afebrile and is currently breathing comfortably on room air sat complaint of abdominal distention and some discomfort, NG has been placed in by surgery no vomiting has been reported and had denies any diarrhea. Patient did have white count of 8.68, creatinine is 13, repeat peritoneal fluid white count is down to 168, vancomycin and was 9.6 patient presented hospital abdominal pain cloudy peritoneal fluid did have a significant elevated white count in the peritoneal fluid likely secondary to PD catheter associated peritonitis patient did not have any evidence of abdominal infection at the site of insertion of the PD catheter he will need to cover for the gram-positive skin emelina to the likely pathogen underlying gram-negative infection less likely not excluded -patient also have evidence of ileus on the CT may be contributing some of her abdominal pain -patient has received a dose of vancomycin today as the patient vancomycin and was 9.6, the patient will continue with Fortaz with peritoneal dialysis daily, until the cultures are finalized Objective - Vital Signs Vital signs: Vital Signs Temp 98.3 F 11/04/22 09:19 Pulse 76 11/04/22 09:19 Resp 16 11/04/22 09:19 BP 142/86 11/04/22 09:19 Pulse Ox 93 L 11/04/22 09:19 FiO2 Intake & Output 11/03/22 11/04/22 11/04/22 18:59 06:59 18:59 Output Total 1300 Balance -1300 Weight 101 kg Output: Gastric Drainage 1300 Other: Voiding Method CAPD CAPD CAPD # Voids 0 0 - Exam General appearance: alert, in distress Head exam: Present: atraumatic, normocephalic, normal inspection Respiratory exam: Present: normal lung sounds bilaterally. Absent: respiratory distress, wheezes, rales, rhonchi, stridor Cardiovascular Exam: Present: regular rate, normal rhythm, normal heart sounds. Absent: systolic murmur, diastolic murmur, rubs, gallop, clicks GI/Abdominal exam: Present: soft, tenderness (diffuse), hypoactive bowel sounds. Absent: distended Neurological exam: Present: alert, oriented X3, CN II-XII intact Psychiatric exam: Present: normal affect, normal mood Skin exam: Present: warm, dry, intact, normal color. Absent: rash - Labs CBC & Chem 7: 11/04/22 04:00 11/04/22 04:00 Labs: Abnormal Lab Results - Last 24 Hours (Table) 11/04/22 11/04/22 Range/Units 04:00 04:00 RBC 2.10 L (4.10-5.20) X 10*6/uL Hgb 7.2 L (12.0-15.0) d/dL Hct 22.2 L (37.2-46.3) % MCV 105.7 H (80.0-97.0) FL MCH 34.3 H (27.0-32.0) pg RDW 16.3 H (11.5-14.5) % Sodium 134 L (135-145) mmol/L Chloride 87 L (96-109) mmol/L Anion Gap 18.40 H (4.00-12.00) mmol/L BUN 55.9 H (9.0-27.0) mg/dL Creatinine 13.0 H* (0.6-1.5) mg/dL Est GFR (CKD-EPI) 3 L (>=60) BUN/Creatinine Ratio 4.30 L (12.00-20.00) Ratio Glucose 118 H (70-110) mg/dL Calcium 7.4 L (8.7-10.3) mg/dL C-Reactive Protein 39.40 H (0.00-0.80) mg/dL Microbiology - Last 24 Hours (Table) 11/02/22 16:19 Gram Stain - Preliminary Peritoneal Fluid Body Fluid Culture - Preliminary Assessment and Plan Assessment: 1. Small bowel obstruction - Patient has been discussed with general surgery and is recommended NG tube placement; we will maintain strict MIRANDA's and daily weights; monitor electrolytes and renal function - Surgical consult is pending 2. Hyponatremia; patient has received fluids in form of normal saline; we will monitor and replenish electrolytes closely 3. Abdominal pain/ascites; rule out acute peritonitis; patient is a 50 mg IV and ID is consulted 4. Hypokalemia; patient has been supplemented Dwight 40 mg 1 5. Hypertension; patient remains on metoprolol 50 mg twice a day along with lisinopril 20 mg twice a day 6. Seizure disorder; patient currently not on anti- seizure medication DVT prophylaxis; SCDs/subcu heparin CODE STATUS; full code
[2022-11-04] MEDS ORDERED: [UNRECOGNIZED DRUG - OTHER] INTRAPERIT ONE (21:00)
[2022-11-04] MEDS ORDERED: VANCOMYCIN INTRAPERIT ONE (21:00)
[2022-11-04] MEDS ORDERED: HEPARIN SODIUM INTRAPERIT ONE (21:00)
[2022-11-05] MEDS ORDERED: DIALYSIS DEX INTRAPERIT SCH ×2
[2022-11-05] MEDS ORDERED: HEPARIN SODIUM INTRAPERIT SCH ×2
[2022-11-05] MEDS: HYDROmorphone 1 MG/ML 1 ML SYRINGE IVP PRN ×4 (02:11→22:01)
[2022-11-05] MEDS: HEPARIN SODIUM INTRAPERIT SCH ×4 (03:00→20:51)
[2022-11-05] MEDS: DIALYSIS DEX INTRAPERIT SCH ×3 (03:00→20:51)
[2022-11-05] MEDS: RENAPLEX D PO SCH (08:00)
[2022-11-05] MEDS: METOPROLOL TARTRATE 25 MG TAB PO SCH ×2 (08:01→22:01)
[2022-11-05] MEDS: lisinopriL 10 MG TAB PO SCH ×2 (08:01→22:01)
[2022-11-05] MEDS: SEVELAMER 800 MG TAB PO SCH ×3 (08:02→16:54)
[2022-11-05] MEDS: SIMETHICONE 80 MG CHEWABLE PO SCH ×3 (09:22→23:11)
[2022-11-05] MEDS: CYCLOBENZAPRINE 5 MG TAB PO PRN ×2 (09:51→22:01)
--- NOTE | 2022-11-05 09:57 | P.PN ---
Subjective Patient is seen in follow-up for end-stage renal disease. She is maintained on peritoneal dialysis. Complains of mild abdominal discomfort. Dialysate mildly cloudy last night. Cell count improving but PMNs remain elevated as of November 03. Vital signs are stable. General: No acute distress. HEENT: Head exam is unremarkable. NG tube noted. LUNGS: No audible rhonchi or wheezes. HEART: Rate and Rhythm are regular. ABDOMEN: Mild generalized tenderness. EXTREMITITES: No edema. Objective - Vital Signs Vital signs: Vital Signs Temp 98.6 F 11/05/22 07:17 Pulse 97 11/05/22 07:17 Resp 17 11/05/22 07:17 BP 147/90 11/05/22 07:17 Pulse Ox 93 L 11/05/22 07:17 FiO2 Intake & Output 11/04/22 11/05/22 11/05/22 18:59 06:59 18:59 Output Total 550 200 Balance -550 -200 Weight 99.5 kg Output: Gastric Drainage 550 200 Other: Voiding Method CAPD CAPD # Voids 0 - Labs CBC & Chem 7: 11/04/22 04:00 11/04/22 04:00 Labs: Abnormal Lab Results - Last 24 Hours (Table) 11/04/22 Range/Units 04:00 Sodium 134 L (135-145) mmol/L Chloride 87 L (96-109) mmol/L Anion Gap 18.40 H (4.00-12.00) mmol/L BUN 55.9 H (9.0-27.0) mg/dL Creatinine 13.0 H* (0.6-1.5) mg/dL Est GFR (CKD-EPI) 3 L (>=60) BUN/Creatinine Ratio 4.30 L (12.00-20.00) Ratio Glucose 118 H (70-110) mg/dL Calcium 7.4 L (8.7-10.3) mg/dL C-Reactive Protein 39.40 H (0.00-0.80) mg/dL Assessment and Plan Plan: Assessment: 1. End-stage renal disease maintained on peritoneal dialysis. 2. PD associated peritonitis status post second dose of intraperitoneal vancomycin 11/04/2022. Also receiving daily IP Fortaz. Fluid WBC count 4503 on 11/02/2022 and down to 168 11/03/2022. PMNs 93% November 02 an 89% November 03. 3. Small bowel obstruction. Has NG tube. Surgery following. 4. Anemia of chronic kidney disease. On Aranesp. 5. Hypertension with chronic kidney disease. 6. Chronic kidney disease mineral bone disease. Plan: Maintain current PD exchanges with heparin. Maintain antibiotics. On daily intraperitoneal Fortaz. Received second dose of intraperitoneal vancomycin 11/04/2022. Repeat dialysate cell count and culture today. Discussed with patient switching over to hemodialysis as PMN count remains elevated. She wants to wait 1 more day. Life-threatening risks of peritonitis were discussed with the patient. She understands.
--- NOTE | 2022-11-05 15:09 | P.PN ---
Subjective Progress Note Date: 11/05/22 CHIEF COMPLAINT: Small bowel obstruction HISTORY OF PRESENT ILLNESS: Patient complains of abdominal pain. NG tube in place with 950 on output through the day yesterday and 200 mL output this morning. Small bowel follow-through final results are pending. No flatus. Afebrile. WBC 8.68 PHYSICAL EXAM: VITAL SIGNS: Reviewed GENERAL: Well-developed in no acute distress. HEENT: No sclera icterus. Extraocular movements grossly intact. Moist buccal mucosa. Head is atraumatic, normocephalic. Hears conversational speech. No nasal drainage. NECK: Supple without lymphadenopathy. CHEST: Non-labored respirations and equal bilateral excursions. CARDIOVASCULAR: Palpable 2+ radial pulses. ABDOMEN: Distended MUSCULOSKELETAL: No clubbing or cyanosis. NEUROLOGIC: No focal or lateralizing signs. Cranial nerves II through XII grossly intact. PSYCH: Appropriate affect. Alert and oriented to person, place and time. SKIN: Well perfused. Good skin turgor. ASSESSMENT: 1. Small bowel obstruction 2. Hyponatremia 3. End-stage renal disease on peritoneal dialysis 4. History of PLAN: -Continue NG tube for decompression -Keep patient nothing by mouth -Patient scheduled for Robotic lysis of adhesions on 11/07/2022 -Continue supportive care Physician C T Tech note has been reviewed by physician. Signing provider agrees with the documented findings, assessment, and plan of care. Objective - Vital Signs Vital signs: Vital Signs Temp 98.0 F 11/05/22 14:00 Pulse 100 11/05/22 14:00 Resp 17 11/05/22 14:00 BP 148/88 11/05/22 14:00 Pulse Ox 93 L 11/05/22 09:00 FiO2 Intake & Output 11/04/22 11/05/22 11/05/22 18:59 06:59 18:59 Output Total 550 200 Balance -550 -200 Weight 99.5 kg Output: Gastric Drainage 550 200 Other: Voiding Method CAPD CAPD CAPD # Voids 0 - Labs CBC & Chem 7: 11/04/22 04:00 11/04/22 04:00 Labs: Microbiology - Last 24 Hours (Table) 11/04/22 04:00 Blood Culture - Preliminary Blood
--- NOTE | 2022-11-05 15:44 | P.PN ---
Subjective Progress Note Date: 11/05/22 42-year-old female, history of hypertension, seizure disorder, chronic kidney disease/dialysis who presents to the emergency department for abdominal pain. Patient states that abdominal pain has been going on for 2-3 days. She receives peritoneal dialysis every 6 hours and was diagnosed with peritonitis 2 days ago by the individual who manages her peritoneal dialysis. She was started on vancomycin and a cephalosporin antibiotic that she cannot recall the name of. She been on antibiotics for 2 days. She puts the medications in her dialysis bags. States that she continues to have abdominal pain despite the antibiotics. Reports that she has not had a bowel movement in 2 days, and prior to that she only had runny stool. Also reports ongoing nausea and vomiting and feels dehydrated. Denies any fevers, chills, sore throat, cough, dyspnea, chest pain, palpitations, abdominal pain, nausea, vomiting, diarrhea, back pain, or headaches. -- Blood work completed reveals a WBC of 8.1, hemoglobin of 8.2, platelet count of 261, sodium 126, potassium 3.4, BUN/creatinine of 52/12.0, consistent with end-stage renal disease, lactic acid levels of 1.5 Computed tomography scan of the abdomen and pelvis obtained revealing a small bowel obstruction. She does also have moderate abdominopelvic ascites and enteritis. Patient admitted to medicine for further management of small bowel obstruction and hyponatremia. Consult placed for general surgery regarding the small bowel obstruction. Consult was also placed for nephrology given that she is a peritoneal dialysis patient. 11/04/2022 the patient is seen and evaluated in room at bedside; patient remains afebrile and is currently breathing comfortably on room air sat complaint of abdominal distention and some discomfort, NG has been placed in by surgery no vomiting has been reported and had denies any diarrhea. Patient did have white count of 8.68, creatinine is 13, repeat peritoneal fluid white count is down to 168, vancomycin and was 9.6 patient presented hospital abdominal pain cloudy peritoneal fluid did have a significant elevated white count in the peritoneal fluid likely secondary to PD catheter associated peritonitis patient did not have any evidence of abdominal infection at the site of insertion of the PD catheter he will need to cover for the gram-positive skin emelina to the likely pathogen underlying gram-negative infection less likely not excluded -patient also have evidence of ileus on the CT may be contributing some of her abdominal pain -patient has received a dose of vancomycin today as the patient vancomycin and was 9.6, the patient will continue with Fortaz with peritoneal dialysis daily, until the cultures are finalized 11/05. Patient seen and examined. States abdominal pain has improved REVIEW OF SYSTEMS: CONSTITUTIONAL: No fever, no malaise,. CARDIOVASCULAR: No chest pain, no palpitations, no syncope. PULMONARY: No shortness of breath, no cough, GASTROINTESTINAL: As mentioned above NEUROLOGICAL: No headaches, no weakness, PHYSICAL EXAMINATION: GENERAL: The patient is alert and oriented x3, not in any acute distress. Well developed, well nourished. HEENT: Pupils are round and equally reacting to light. EOMI. No scleral icterus. No conjunctival pallor. Normocephalic, atraumatic. No pharyngeal erythema. No thyromegaly. CARDIOVASCULAR: S1 and S2 present. No murmurs, rubs, or gallops. PULMONARY: Chest is clear to auscultation, no wheezing or crackles. ABDOMEN: Soft, nontender, nondistended, PD catheter seen, sluggish bowel sounds MUSCULOSKELETAL: No joint swelling or deformity. EXTREMITIES: No cyanosis, clubbing, or pedal edema. NEUROLOGICAL: Gross neurological examination did not reveal any focal deficits. SKIN: No rashes. Assessment and plan 1. Small bowel obstruction -Monitor vital signs Monitor CBC, monitor electrolytes, NG tube placement; we will maintain strict MIRANDA's and daily weights; Surgery following, planning Robotic lysis of adhesions on 11/07/2022 End-stage renal disease on peritoneal dialysis Hyponatremia; Continue peritoneal dialysis per nephrology. On daily intraperitoneal Fortaz. Received second dose of intraperitoneal vancomycin 11/04/2022. Abdominal pain/PD catheter associated peritonitis;continue with Fortaz ( ceftazidime) with peritoneal dialysis daily ID following 4. Hypokalemia; patient has been supplemented Dwight 40 mg 1 5. Hypertension; patient remains on metoprolol 50 mg twice a day along with lisinopril 20 mg twice a day 6. Seizure disorder; patient currently not on anti- seizure medication Labs and medication were reviewed.. Continue same treatment. Continue with symptomatic treatment. Resume home medication. Monitor labs and vitals. DVT and GI prophylaxis. Further recommendations as per clinical course of the patient Dictation was produced using H[employer] software. please excuse any grammatical, word or spelling errors. Objective - Vital Signs Vital signs: Vital Signs Temp 98.6 F 11/05/22 07:17 Pulse 97 11/05/22 07:17 Resp 17 11/05/22 07:17 BP 147/90 11/05/22 07:17 Pulse Ox 93 L 11/05/22 07:17 FiO2 Intake & Output 11/04/22 11/05/22 11/05/22 18:59 06:59 18:59 Output Total 550 200 Balance -550 -200 Weight 99.5 kg Output: Gastric Drainage 550 200 Other: Voiding Method CAPD CAPD # Voids 0 - Labs CBC & Chem 7: 11/04/22 04:00 11/04/22 04:00
[2022-11-05] MEDS: CEFTAZIDIME INTRAPERIT SCH (15:57)
[2022-11-05] MEDS: [UNRECOGNIZED DRUG - OTHER] INTRAPERIT SCH (15:57)
[2022-11-05 16:20] LABS: Appearance,BF Slightly Hazy (Clear)
[2022-11-06] MEDS: HYDROmorphone 1 MG/ML 1 ML SYRINGE IVP PRN ×4 (02:08→23:24)
[2022-11-06] MEDS: DIALYSIS DEX INTRAPERIT SCH ×3 (02:34→21:23)
[2022-11-06] MEDS: HEPARIN SODIUM INTRAPERIT SCH ×4 (02:34→21:23)
[2022-11-06 04:31] LABS: Appearance,BF Hazy (Clear)
[2022-11-06] MEDS: RENAPLEX D PO SCH (07:48)
[2022-11-06] MEDS: SEVELAMER 800 MG TAB PO SCH ×3 (07:48→16:10)
[2022-11-06] MEDS: lisinopriL 10 MG TAB PO SCH ×2 (07:51→21:18)
[2022-11-06] MEDS: METOPROLOL TARTRATE 25 MG TAB PO SCH ×2 (07:51→21:18)
[2022-11-06] MEDS: SIMETHICONE 80 MG CHEWABLE PO SCH ×3 (07:52→22:57)
[2022-11-06] MEDS: CYCLOBENZAPRINE 5 MG TAB PO PRN ×2 (09:59→14:27)
--- NOTE | 2022-11-06 10:31 | FL ---
EXAMINATION TYPE: FL small bowel follow through DATE OF EXAM: 11/06/2022 9:10 AM COMPARISON: CT abdomen pelvis most recent from INDICATION: Patient age:Female; 42 years old; Reason for study: Bowel obstruction; TECHNIQUE: The procedure was explained and patient history elicited. All patient questions were ans wered prior to start of procedure. A healthcare interpreter radiograph of the abdomen was also reviewed. The patient was asked to ingest liquid and incremental frontal abdominal radiographs were then taken until contra st was visualized in the cecum. Fluoroscopic time: 0 min Fluoroscopic images: 0 Radiographs taken: 12 DAP: 0 mGym2 FINDINGS: The healthcare interpreter abdominal radiograph demonstrates a normal bowel gas pattern without dilated loops of small or large bowel. There is no evidence of organomegaly or pneumoperitoneum. No abnormal calcifications . The visualized osseous structures are intact. Contrast is seen extending from the duodenojejunal junction into the cecum after 23 hours, which is d elayed. The small bowel follows normal distribution and contour without any evidence of extraluminal or intraluminal irregularity. There is no displacement of bowel loops or extraluminal extravasation of contrast material. Small bowel mucosal folds are felt to be within normal limits. IMPRESSION: Delayed transit of contrast through the bowel, no evidence of small bowel obstruction.
[2022-11-06 11:05] LABS: HCT 23.8 % (37.2-46.3); HGB 7.5 d/dL (12.0-15.0); MCH 33.8 pg (27.0-32.0); MCHC 31.5 d/dL (32.0-37.0); MCV 107.2 FL (80.0-97.0); NRBC Per 100 WBC 0 X 10*3/uL (0.00-0.01); Platelet Count 318 X 10*3/uL (140-440); RBC 2.22 X 10*6/uL (4.10-5.20); RDW 16.5 % (11.5-14.5); WBC 10.78 X 10*3/uL (4.50-10.00)
[2022-11-06 11:08] LABS: Magnesium 2.1 mg/dL (1.5-2.4)
[2022-11-06 11:25] LABS: BUN/Creat Ratio 4.69 Ratio (12.00-20.00); Blood Urea Nitrogen 59.6 mg/dL (9.0-27.0); Calcium 7.5 mg/dL (8.7-10.3); Carbon Dioxide 29.4 mmol/L (21.6-31.8); Chloride 86 mmol/L (96-109); Glucose 130 mg/dL (70-110); Potassium 3.3 mmol/L (3.5-5.5); Sodium 135 mmol/L (135-145)
[2022-11-06] MEDS ORDERED: POTASSIUM CHLORIDE ER 20 MEQ TAB.ER PO STA (11:57)
--- NOTE | 2022-11-06 11:58 | P.PN ---
Subjective Patient is seen in follow-up for end-stage renal disease. She is maintained on peritoneal dialysis. Continues to have abdominal discomfort. Cell count improving but PMNs remain elevated. Vital signs are stable. General: No acute distress. HEENT: Head exam is unremarkable. NG tube noted. LUNGS: No audible rhonchi or wheezes. HEART: Rate and Rhythm are regular. ABDOMEN: Mild generalized tenderness. EXTREMITITES: No edema. Objective - Vital Signs Vital signs: Vital Signs Temp 98.7 F 11/06/22 09:00 Pulse 91 11/06/22 09:00 Resp 16 11/06/22 09:00 BP 158/95 11/06/22 09:00 Pulse Ox 97 11/06/22 09:00 FiO2 Intake & Output 11/05/22 11/06/22 11/06/22 18:59 06:59 18:59 Intake Total 50 Output Total 900 Balance -900 50 Intake: Oral 50 Output: Gastric Drainage 900 Other: Voiding Method CAPD CAPD CAPD # Voids 1 1 - Labs CBC & Chem 7: 11/06/22 03:54 11/06/22 03:54 Labs: Abnormal Lab Results - Last 24 Hours (Table) 11/05/22 11/05/22 11/06/22 Range/Units 10:15 18:05 03:54 WBC (4.50-10.00) X 10*3/uL RBC (4.10-5.20) X 10*6/uL Hgb (12.0-15.0) d/dL Hct (37.2-46.3) % MCV (80.0-97.0) FL MCH (27.0-32.0) pg MCHC (32.0-37.0) d/dL RDW (11.5-14.5) % Potassium 3.3 L (3.5-5.5) mmol/L Chloride 86 L (96-109) mmol/L Anion Gap 19.60 H (4.00-12.00) mmol/L BUN 59.6 H (9.0-27.0) mg/dL Creatinine 12.7 H* (0.6-1.5) mg/dL Est GFR (CKD-EPI) 3 L (>=60) BUN/Creatinine Ratio 4.69 L (12.00-20.00) Ratio Glucose 130 H (70-110) mg/dL Calcium 7.5 L (8.7-10.3) mg/dL Fluid Appearance Slightly Hazy A Hazy A (Clear) 11/06/22 Range/Units 03:54 WBC 10.78 H (4.50-10.00) X 10*3/uL RBC 2.22 L (4.10-5.20) X 10*6/uL Hgb 7.5 L (12.0-15.0) d/dL Hct 23.8 L (37.2-46.3) % MCV 107.2 H (80.0-97.0) FL MCH 33.8 H (27.0-32.0) pg MCHC 31.5 L (32.0-37.0) d/dL RDW 16.5 H (11.5-14.5) % Potassium (3.5-5.5) mmol/L Chloride (96-109) mmol/L Anion Gap (4.00-12.00) mmol/L BUN (9.0-27.0) mg/dL Creatinine (0.6-1.5) mg/dL Est GFR (CKD-EPI) (>=60) BUN/Creatinine Ratio (12.00-20.00) Ratio Glucose (70-110) mg/dL Calcium (8.7-10.3) mg/dL Fluid Appearance (Clear) Microbiology - Last 24 Hours (Table) 11/05/22 18:05 Gram Stain - Preliminary Peritoneal Fluid 11/05/22 10:15 Gram Stain - Preliminary Peritoneal Fluid Body Fluid Culture - Preliminary 11/02/22 16:19 Gram Stain - Preliminary Peritoneal Fluid Body Fluid Culture - Preliminary Anaerobic Gm Negative Bacilli 11/04/22 04:00 Blood Culture - Preliminary Blood Assessment and Plan Plan: Assessment: 1. End-stage renal disease maintained on peritoneal dialysis. 2. PD associated peritonitis status post second dose of intraperitoneal vancomycin 11/04/2022. Also receiving daily IP Fortaz. Fluid WBC count 4503 on 11/02/2022 and down to 168 11/03/2022. PMNs 93% October 4 an 89% October 5. Fluid culture done prior to admission was positive for E. coli and this admis mihaela again positive for gram-negative bacilli. PMN count remains elevated. 3. Small bowel obstruction. Has NG tube. Surgery following. Scheduled for surgery tomorrow. 4. Anemia of chronic kidney disease. On Aranesp. 5. Hypertension with chronic kidney disease. 6. Chronic kidney disease mineral bone disease. 7. Hypokalemia from poor intake and PD losses. Plan: Patient had PD associated peritonitis with intra-abdominal pathology of bowel obstruction. Scheduled for exploratory laparotomy tomorrow. Discontinue PD catheter. Antibiotics per infectious disease. Consult vascular surgery for permacath placement. Plan for hemodialysis tomorrow. Reassess for PD after one month of bowel rest. Patient in agreement with the plan. Maintain antibiotics. On daily intraperitoneal Fortaz now. Received second dose of intraperitoneal vancomycin 11/04/2022. Replace potassium.
[2022-11-06] MEDS ORDERED: AMPICILLIN-SULBACTAM 3 GM in SODIUM CHLORIDE 0.9% 100 ML IVPB SCH (13:15)
--- NOTE | 2022-11-06 14:01 | P.PN ---
Subjective Progress Note Date: 11/06/22 42-year-old female, history of hypertension, seizure disorder, chronic kidney disease/dialysis who presents to the emergency department for abdominal pain. Patient states that abdominal pain has been going on for 2-3 days. She receives peritoneal dialysis every 6 hours and was diagnosed with peritonitis 2 days ago by the individual who manages her peritoneal dialysis. She was started on vancomycin and a cephalosporin antibiotic that she cannot recall the name of. She been on antibiotics for 2 days. She puts the medications in her dialysis bags. States that she continues to have abdominal pain despite the antibiotics. Reports that she has not had a bowel movement in 2 days, and prior to that she only had runny stool. Also reports ongoing nausea and vomiting and feels dehydrated. Denies any fevers, chills, sore throat, cough, dyspnea, chest pain, palpitations, abdominal pain, nausea, vomiting, diarrhea, back pain, or headaches. -- Blood work completed reveals a WBC of 8.1, hemoglobin of 8.2, platelet count of 261, sodium 126, potassium 3.4, BUN/creatinine of 52/12.0, consistent with end-stage renal disease, lactic acid levels of 1.5 Computed tomography scan of the abdomen and pelvis obtained revealing a small bowel obstruction. She does also have moderate abdominopelvic ascites and enteritis. Patient admitted to medicine for further management of small bowel obstruction and hyponatremia. Consult placed for general surgery regarding the small bowel obstruction. Consult was also placed for nephrology given that she is a peritoneal dialysis patient. 11/04/2022 the patient is seen and evaluated in room at bedside; patient remains afebrile and is currently breathing comfortably on room air sat complaint of abdominal distention and some discomfort, NG has been placed in by surgery no vomiting has been reported and had denies any diarrhea. Patient did have white count of 8.68, creatinine is 13, repeat peritoneal fluid white count is down to 168, vancomycin and was 9.6 patient presented hospital abdominal pain cloudy peritoneal fluid did have a significant elevated white count in the peritoneal fluid likely secondary to PD catheter associated peritonitis patient did not have any evidence of abdominal infection at the site of insertion of the PD catheter he will need to cover for the gram-positive skin emelina to the likely pathogen underlying gram-negative infection less likely not excluded -patient also have evidence of ileus on the CT may be contributing some of her abdominal pain -patient has received a dose of vancomycin today as the patient vancomycin and was 9.6, the patient will continue with Fortaz with peritoneal dialysis daily, until the cultures are finalized 11/05. Patient seen and examined. States abdominal pain has improved 11/06. Patient seen and examined. Nephrology plan to switch patient to hemodialysis. NG tube in place. Still having abdominal pain REVIEW OF SYSTEMS: CONSTITUTIONAL: No fever, no malaise,. CARDIOVASCULAR: No chest pain, no palpitations, no syncope. PULMONARY: No shortness of breath, no cough, GASTROINTESTINAL: As mentioned above NEUROLOGICAL: No headaches, no weakness, PHYSICAL EXAMINATION: GENERAL: The patient is alert and oriented x3, not in any acute distress. Well developed, well nourished. HEENT: Pupils are round and equally reacting to light. EOMI. No scleral icterus. No conjunctival pallor. Normocephalic, atraumatic. No pharyngeal erythema. No thyromegaly. CARDIOVASCULAR: S1 and S2 present. No murmurs, rubs, or gallops. PULMONARY: Chest is clear to auscultation, no wheezing or crackles. ABDOMEN: Soft, nontender, nondistended, PD catheter seen, sluggish bowel sounds MUSCULOSKELETAL: No joint swelling or deformity. EXTREMITIES: No cyanosis, clubbing, or pedal edema. NEUROLOGICAL: Gross neurological examination did not reveal any focal deficits. SKIN: No rashes. Assessment and plan 1. Small bowel obstruction -Monitor vital signs Monitor CBC, monitor electrolytes, NG tube placement; we will maintain strict MIRANDA's and daily weights; Surgery following, planning Robotic lysis of adhesions on 11/07/2022 End-stage renal disease on peritoneal dialysis Hyponatremia; Nephrology plan to patient switch patient to hemodialysis. On daily intraperitoneal Fortaz. Received second dose of intraperitoneal vancomycin 11/04/2022. Abdominal pain/PD catheter associated peritonitis;continue with Fortaz ( ceftazidime) with peritoneal dialysis daily ID following Hypokalemia; monitor BMP Hypertension; patient remains on metoprolol 50 mg twice a day along with lisinopril 20 mg twice a day Seizure disorder; patient currently not on anti- seizure medication Labs and medication were reviewed.. Continue same treatment. Continue with symptomatic treatment. Resume home medication. Monitor labs and vitals. DVT and GI prophylaxis. Further recommendations as per clinical course of the patient Dictation was produced using [employer] dictation software. please excuse any grammatical, word or spelling errors. Objective - Vital Signs Vital signs: Vital Signs Temp 98.7 F 11/06/22 09:00 Pulse 91 11/06/22 09:00 Resp 16 11/06/22 09:00 BP 158/95 11/06/22 09:00 Pulse Ox 97 11/06/22 09:00 FiO2 Intake & Output 11/05/22 11/06/22 11/06/22 18:59 06:59 18:59 Intake Total 50 Output Total 900 Balance -900 50 Intake: Oral 50 Output: Gastric Drainage 900 Other: Voiding Method CAPD CAPD CAPD # Voids 1 1 - Labs CBC & Chem 7: 11/06/22 03:54 11/06/22 03:54 Labs: Abnormal Lab Results - Last 24 Hours (Table) 11/05/22 11/05/22 Range/Units 10:15 18:05 Fluid Appearance Slightly Hazy A Hazy A (Clear) Microbiology - Last 24 Hours (Table) 11/05/22 18:05 Gram Stain - Preliminary Peritoneal Fluid 11/05/22 10:15 Gram Stain - Preliminary Peritoneal Fluid Body Fluid Culture - Preliminary 11/02/22 16:19 Gram Stain - Preliminary Peritoneal Fluid Body Fluid Culture - Preliminary Anaerobic Gm Negative Bacilli 11/04/22 04:00 Blood Culture - Preliminary Blood
--- NOTE | 2022-11-06 14:35 | P.PN ---
Subjective Progress Note Date: 11/06/22 CHIEF COMPLAINT: Small bowel obstruction HISTORY OF PRESENT ILLNESS: Patient complains of abdominal pain. Patient does report a small amount of flatus. No bowel movement. She's had some decrease in her nausea. NG tube with 900 mL output. Small bowel follow-through shows delayed transit of contrast through the bowel. No evidence of small bowel obstruction. Afebrile. Nephrology requesting peritoneal dialysis catheter be removed. Patient scheduled for permacath placement with vascular surgery. PHYSICAL EXAM: VITAL SIGNS: Reviewed GENERAL: Well-developed in no acute distress. HEENT: No sclera icterus. Extraocular movements grossly intact. Moist buccal mucosa. Head is atraumatic, normocephalic. Hears conversational speech. No nasal drainage. NECK: Supple without lymphadenopathy. CHEST: Non-labored respirations and equal bilateral excursions. CARDIOVASCULAR: Palpable 2+ radial pulses. ABDOMEN: soft, diffuse tenderness peritoneal dialysis catheter on the left MUSCULOSKELETAL: No clubbing or cyanosis. NEUROLOGIC: No focal or lateralizing signs. Cranial nerves II through XII grossly intact. PSYCH: Appropriate affect. Alert and oriented to person, place and time. SKIN: Well perfused. Good skin turgor. ASSESSMENT: 1. Small bowel obstruction 2. Peritonitis 3. End-stage renal disease on peritoneal dialysis 4. History of PLAN: -Continue NG tube for decompression -Keep patient nothing by mouth -Patient scheduled for Robotic lysis of adhesions and removal of peritoneal dialysis catheter on 11/07/2022 -Continue supportive care Physician Smoke Tester note has been reviewed by physician. Signing provider agrees with the documented findings, assessment, and plan of care. Objective - Vital Signs Vital signs: Vital Signs Temp 98.7 F 11/06/22 09:00 Pulse 91 11/06/22 09:00 Resp 16 11/06/22 09:00 BP 158/95 11/06/22 09:00 Pulse Ox 97 11/06/22 09:00 FiO2 Intake & Output 11/05/22 11/06/22 11/06/22 18:59 06:59 18:59 Intake Total 50 Output Total 900 Balance -900 50 Intake: Oral 50 Output: Gastric Drainage 900 Other: Voiding Method CAPD CAPD CAPD # Voids 1 1 - Labs CBC & Chem 7: 11/06/22 03:54 11/06/22 03:54 Labs: Abnormal Lab Results - Last 24 Hours (Table) 11/05/22 11/05/22 11/06/22 Range/Units 10:15 18:05 03:54 WBC (4.50-10.00) X 10*3/uL RBC (4.10-5.20) X 10*6/uL Hgb (12.0-15.0) d/dL Hct (37.2-46.3) % MCV (80.0-97.0) FL MCH (27.0-32.0) pg MCHC (32.0-37.0) d/dL RDW (11.5-14.5) % Potassium 3.3 L (3.5-5.5) mmol/L Chloride 86 L (96-109) mmol/L Anion Gap 19.60 H (4.00-12.00) mmol/L BUN 59.6 H (9.0-27.0) mg/dL Creatinine 12.7 H* (0.6-1.5) mg/dL Est GFR (CKD-EPI) 3 L (>=60) BUN/Creatinine Ratio 4.69 L (12.00-20.00) Ratio Glucose 130 H (70-110) mg/dL Calcium 7.5 L (8.7-10.3) mg/dL Fluid Appearance Slightly Hazy A Hazy A (Clear) 11/06/22 Range/Units 03:54 WBC 10.78 H (4.50-10.00) X 10*3/uL RBC 2.22 L (4.10-5.20) X 10*6/uL Hgb 7.5 L (12.0-15.0) d/dL Hct 23.8 L (37.2-46.3) % MCV 107.2 H (80.0-97.0) FL MCH 33.8 H (27.0-32.0) pg MCHC 31.5 L (32.0-37.0) d/dL RDW 16.5 H (11.5-14.5) % Potassium (3.5-5.5) mmol/L Chloride (96-109) mmol/L Anion Gap (4.00-12.00) mmol/L BUN (9.0-27.0) mg/dL Creatinine (0.6-1.5) mg/dL Est GFR (CKD-EPI) (>=60) BUN/Creatinine Ratio (12.00-20.00) Ratio Glucose (70-110) mg/dL Calcium (8.7-10.3) mg/dL Fluid Appearance (Clear) Microbiology - Last 24 Hours (Table) 11/04/22 04:00 Blood Culture - Preliminary Blood 11/05/22 18:05 Gram Stain - Preliminary Peritoneal Fluid 11/05/22 10:15 Gram Stain - Preliminary Peritoneal Fluid Body Fluid Culture - Preliminary 11/02/22 16:19 Gram Stain - Preliminary Peritoneal Fluid Body Fluid Culture - Preliminary Anaerobic Gm Negative Bacilli
[2022-11-06] MEDS: [UNRECOGNIZED DRUG - OTHER] INTRAPERIT SCH (14:48)
[2022-11-06] MEDS: CEFTAZIDIME INTRAPERIT SCH (14:48)
[2022-11-06] MEDS: MIDAZOLAM 2 MG/2 ML VIAL IVP ONE ×2 (16:35→16:55)
[2022-11-06] MEDS ORDERED: LIDOCAINE 1% INJ 10MG/ML (5 ML VIAL-PF) SQ ONE (16:37)
[2022-11-06] MEDS ORDERED: IV FLUID CONTINUATION 500 ML IV ONE (16:39)
--- NOTE | 2022-11-06 17:10 | P.PN ---
Subjective Progress Note Date: 11/05/22 Principal diagnosis: PD catheter associated peritonitis Patient is a 42-year-old female with a past medical history negative for hypertension seizure disorder history of end-stage renal disease on peritoneal dialysis since December 2018 did have 1 previous episode of infection treated with antibiotics patient started having a problem with abdominal pain that started on Saturday is about 4 days before presentation to the hospital, patient has been diagnosed with peritonitis also have CT abdominal pelvis suggestive of ileus. On today's evaluation that is 11/05/2022, the patient is afebrile the patient is breathing comfortably on room air , the patient still complaining of abdominal distention and some discomfort, NG has been placed in by surgery no vomiting has been reported and the patient denies any bowel movement Patient did have white count of 8.68, creatinine is 13 as of yesterday no CBC was done today, repeat peritoneal fluid culture done in the outpatient setting positive for E. coli Objective - Vital Signs Vital signs: Vital Signs Temp 98.6 F 11/05/22 07:17 Pulse 97 11/05/22 07:17 Resp 17 11/05/22 07:17 BP 147/90 11/05/22 07:17 Pulse Ox 93 L 11/05/22 07:17 FiO2 Intake & Output 11/04/22 11/05/22 11/05/22 18:59 06:59 18:59 Output Total 550 200 Balance -550 -200 Weight 99.5 kg Output: Gastric Drainage 550 200 Other: Voiding Method CAPD CAPD # Voids 0 - Exam GENERAL DESCRIPTION: Middle-aged female lying in bed in no distress RESPIRATORY SYSTEM: Unlabored breathing , decreased breath sounds at bases HEART: S1 S2 regular rate and rhythm , ABDOMEN: Soft , mild abdominal distention and tenderness EXTREMITIES: No edema feet - Labs CBC & Chem 7: 11/06/22 03:54 11/06/22 03:54 Assessment and Plan (1) Peritonitis associated with continuous ambulatory peritoneal dialysis Current Visit: Yes Status: Acute Code(s): T80.89XA - OTH COMP FOL INFUSION, TRANSFUSE AND THERAPUTC INJECT, INIT; K65.9 - PERITONITIS, UNSPECIFIED; Z99.2 - DEPENDENCE ON RENAL DIALYSIS SNOMED Code(s): 086012162 Plan: 1patient presented hospital abdominal pain cloudy peritoneal fluid did have a significant elevated white in the peritoneal fluid likely secondary to PD catheter associated peritonitis patient did not have any evidence of abdominal infection at the site of insertion of the PD catheter he will need to cover for the gram-positive skin emelina to the likely pathogen underlying gram-negative infection less likely not excluded 2-patient also have evidence of ileus on the CT may be contributing some of her abdominal pain, patient did have a small bowel follow-through, did show delayed transit of contrast through the bowel with no evidence of small bowel obstruction 3-patient will continue with [place] with peritoneal dialysis daily, and monitor clinical course closely Dictation was produced using Eye[employer]ation software. please excuse any grammatical, word or spelling errors. Time with Patient: Less than 30
--- NOTE | 2022-11-06 17:13 | P.PN ---
Subjective Progress Note Date: 11/06/22 Principal diagnosis: PD catheter associated peritonitis Patient is a 42-year-old female with a past medical history negative for hypertension seizure disorder history of end-stage renal disease on peritoneal dialysis since December 2018 did have 1 previous episode of infection treated with antibiotics patient started having a problem with abdominal pain that started on Saturday is about 4 days before presentation to the hospital, patient has been diagnosed with peritonitis also have CT abdominal pelvis suggestive of ileus. On today's evaluation that is 11/06/2022, the patient remains to be afebrile the patient is breathing comfortably however requiring 2 L nasal cannula oxygen, the patient is complaining of abdominal distention and pain, NG has been placed in by surgery no vomiting has been reported and the patient denies any bowel movement Patient did have white count of 10.78, creatinine is 12.7, peritoneal fluid culture is growing anaerobic gram-negative bacilli outpatient culture were positive for E. coli Objective - Vital Signs Vital signs: Vital Signs Temp 98.7 F 11/06/22 09:00 Pulse 91 11/06/22 09:00 Resp 16 11/06/22 09:00 BP 158/95 11/06/22 09:00 Pulse Ox 97 11/06/22 09:00 FiO2 Intake & Output 11/05/22 11/06/22 11/06/22 18:59 06:59 18:59 Intake Total 50 Output Total 900 Balance -900 50 Intake: Oral 50 Output: Gastric Drainage 900 Other: Voiding Method CAPD CAPD CAPD # Voids 1 1 - Exam GENERAL DESCRIPTION: Middle-aged female lying in bed in no distress RESPIRATORY SYSTEM: Unlabored breathing , decreased breath sounds at bases HEART: S1 S2 regular rate and rhythm , ABDOMEN: Soft , mild abdominal distention and tenderness EXTREMITIES: No edema feet - Labs CBC & Chem 7: 11/06/22 03:54 11/06/22 03:54 Labs: Abnormal Lab Results - Last 24 Hours (Table) 11/05/22 11/05/22 11/06/22 Range/Units 10:15 18:05 03:54 WBC (4.50-10.00) X 10*3/uL RBC (4.10-5.20) X 10*6/uL Hgb (12.0-15.0) d/dL Hct (37.2-46.3) % MCV (80.0-97.0) FL MCH (27.0-32.0) pg MCHC (32.0-37.0) d/dL RDW (11.5-14.5) % Potassium 3.3 L (3.5-5.5) mmol/L Chloride 86 L (96-109) mmol/L Anion Gap 19.60 H (4.00-12.00) mmol/L BUN 59.6 H (9.0-27.0) mg/dL Creatinine 12.7 H* (0.6-1.5) mg/dL Est GFR (CKD-EPI) 3 L (>=60) BUN/Creatinine Ratio 4.69 L (12.00-20.00) Ratio Glucose 130 H (70-110) mg/dL Calcium 7.5 L (8.7-10.3) mg/dL Fluid Appearance Slightly Hazy A Hazy A (Clear) 11/06/22 Range/Units 03:54 WBC 10.78 H (4.50-10.00) X 10*3/uL RBC 2.22 L (4.10-5.20) X 10*6/uL Hgb 7.5 L (12.0-15.0) d/dL Hct 23.8 L (37.2-46.3) % MCV 107.2 H (80.0-97.0) FL MCH 33.8 H (27.0-32.0) pg MCHC 31.5 L (32.0-37.0) d/dL RDW 16.5 H (11.5-14.5) % Potassium (3.5-5.5) mmol/L Chloride (96-109) mmol/L Anion Gap (4.00-12.00) mmol/L BUN (9.0-27.0) mg/dL Creatinine (0.6-1.5) mg/dL Est GFR (CKD-EPI) (>=60) BUN/Creatinine Ratio (12.00-20.00) Ratio Glucose (70-110) mg/dL Calcium (8.7-10.3) mg/dL Fluid Appearance (Clear) Microbiology - Last 24 Hours (Table) 11/04/22 04:00 Blood Culture - Preliminary Blood 11/05/22 18:05 Gram Stain - Preliminary Peritoneal Fluid 11/05/22 10:15 Gram Stain - Preliminary Peritoneal Fluid Body Fluid Culture - Preliminary 11/02/22 16:19 Gram Stain - Preliminary Peritoneal Fluid Body Fluid Culture - Preliminary Anaerobic Gm Negative Bacilli Assessment and Plan (1) Peritonitis associated with continuous ambulatory peritoneal dialysis Current Visit: Yes Status: Acute Code(s): T80.89XA - OTH COMP FOL INFUSION, TRANSFUSE AND THERAPUTC INJECT, INIT; K65.9 - PERITONITIS, UNSPECIFIED; Z99.2 - DEPENDENCE ON RENAL DIALYSIS SNOMED Code(s): 807517651 Plan: 1patient presented hospital abdominal pain cloudy peritoneal fluid did have a significant elevated white in the peritoneal fluid likely secondary to PD catheter associated peritonitis patient did not have any evidence of abdominal infection at the site of insertion of the PD catheter he will need to cover for the gram-positive skin emelina to the likely pathogen underlying gram-negative infection less likely not excluded 2-patient also have evidence of ileus on the CT may be contributing some of her abdominal pain, patient did have a small bowel follow-through, did show delayed transit of contrast through the bowel with no evidence of small bowel obstruction 3-patient is being switched to hemodialysis as per discussion with the conveyor monitor and the patient is scheduled for surgery tomorrow laparotomy as per discussion with the MANAGER OPERATIONS AND PROCUREMENT for surgical team 4-patient will be started on Unasyn and will monitor clinical course closely Dictation was produced using Snappy shuttle dictation software. please excuse any grammatical, word or spelling errors. Time with Patient: Less than 30
[2022-11-06] MEDS ORDERED: HEPARIN SODIUM 1,000 UN/ML (10ML VL) IVP ONE (17:14)
--- NOTE | 2022-11-07 00:32 | OP ---
OPERATIVE REPORT DATE OF SERVICE : PREOPERATIVE DIAGNOSES: 1. Acute chronic renal failure. 2. Malfunction of peritoneal dialysis catheter. PROCEDURE PERFORMED: Attempted right-sided IJ catheter. Right jugular catheter is occluded. This patient had a dialysis catheter placed in the past. Then, we placed a 28 cm dialysis catheter in left jugular approach, ultrasound guided. DESCRIPTION OF PROCEDURE: The patient was brought to the section laborer. Right and left side of the neck and chest were prepped and draped in the usual sterile manner. 1% lidocaine infiltrated in the right neck area. An ultrasound-guided micropuncture introduced to the right jugular vein. Micropuncture guidewire was passed. Several attempts were made. We could not pass the guidewire. This patient had a dialysis catheter placed in the past, jugular is occluded distally. Then, left side of the neck was prepped and draped in usual sterile manner. 1% lidocaine was infiltrated. Ultrasound-guided micropuncture introduced. Left jugular vein micropuncture guidewire was passed and 4-Colombian dilator was advanced on top of the guidewire. Then, tunnel was created. Through the tunnel, we brought 28 cm dialysis catheter. Dilator advanced on top of the guidewire. Then, we passed sheath on top of the guide and then through the sheath we introduced the dialysis catheter. Tip of the catheter at the superior vena cava and atrial junction, flushed with heparin saline and hep-locked, secured with 3-0 nylon. Dressing applied. The patient tolerated the procedure well and transferred to room in satisfactory condition. PLAN: X-ray of the chest. MMODL / IJN: [id number] /
--- NOTE | 2022-11-07 00:47 | CONS ---
CONSULTATION CHIEF COMPLAINT: Infected peritoneal dialysis catheter. Clinical history of chronic renal failure. Consult was obtained for placement of dialysis catheter. This patient has peritoneal dialysis which has been occluded and infected. The patient also had a CT scan which shows bowel obstruction. MEDICAL HISTORY: History of chronic renal failure. PHYSICAL EXAMINATION: NECK: On examination, neck is supple. The patient has tracheostomy. The patient has NG tube through the nose. CHEST: Clear. Good air entry in both lungs. HEART: First and second heart sounds present. ABDOMEN: Protuberant, tender. The patient has peritoneal dialysis which is infected. Femorals are 1+. PLAN: Placement of the dialysis catheter. Risks and complications discussed. MMODL / IJN: [id number] /
[2022-11-07] MEDS: DIALYSIS DEX INTRAPERIT SCH ×2 (02:46→12:22)
[2022-11-07] MEDS: HEPARIN SODIUM INTRAPERIT SCH ×2 (02:46→12:22)
[2022-11-07] MEDS: CYCLOBENZAPRINE 5 MG TAB PO PRN (03:33)
[2022-11-07] MEDS: SIMETHICONE 80 MG CHEWABLE PO SCH ×3 (07:05→22:09)
[2022-11-07] MEDS: SEVELAMER 800 MG TAB PO SCH ×3 (07:30→21:21)
[2022-11-07 09:31] LABS: Basophils # (A) 0.04 X 10*3/uL (0.00-0.10); Basophils % (A) 0.3 %; Eosinophils # (A) 0.19 X 10*3/uL (0.04-0.35); Eosinophils % (A) 1.4 %; HCT 22.7 % (37.2-46.3); Lymphocytes # (A) 1.11 X 10*3/uL (0.90-5.00); Lymphocytes % (A) 8.1 %; MCH 33.3 pg (27.0-32.0); MCHC 30.8 d/dL (32.0-37.0); MCV 108.1 FL (80.0-97.0); Mean Platelet Volume 10.3 FL (9.5-12.2); Monocytes # (A) 0.61 X 10*3/uL (0.20-1.00); Monocytes % (A) 4.4 %; NRBC Per 100 WBC 0 X 10*3/uL (0.00-0.01); Neutrophils # (A) 11.47 X 10*3/uL (1.80-7.70); Neutrophils % (A) 83.4 %; Platelet Count 305 X 10*3/uL (140-440); WBC 13.75 X 10*3/uL (4.50-10.00)
[2022-11-07] MEDS: RENAPLEX D PO SCH (10:18)
[2022-11-07] MEDS: lisinopriL 10 MG TAB PO SCH ×2 (10:18→21:59)
[2022-11-07] MEDS: METOPROLOL TARTRATE 25 MG TAB PO SCH ×2 (10:18→21:58)
[2022-11-07 11:07] LABS: ALT 7 U/L (8-44); AST 14 U/L (13-35); Albumin 2.4 d/dL (3.8-4.9); Albumin/Globulin Ratio 0.89 Ratio (1.60-3.17); Alkaline Phosphatase 61 U/L (41-126); BUN/Creat Ratio 4.86 Ratio (12.00-20.00); Blood Urea Nitrogen 71.9 mg/dL (9.0-27.0); Calcium 7.7 mg/dL (8.7-10.3); Carbon Dioxide 31.8 mmol/L (21.6-31.8); Chloride 85 mmol/L (96-109); Globulin 2.7 d/dL (1.6-3.3); Glucose 86 mg/dL (70-110); Phosphorus 12.4 mg/dL (2.4-5.1); Potassium 3.5 mmol/L (3.5-5.5); Sodium 140 mmol/L (135-145); Total Bilirubin <0.2 mg/dL (0.3-1.2); Total Protein 5.1 d/dL (6.2-8.2)
--- NOTE | 2022-11-07 12:03 | P.PN ---
Subjective Progress Note Date: 11/07/22 42-year-old female, history of hypertension, seizure disorder, chronic kidney disease/dialysis who presents to the emergency department for abdominal pain. Patient states that abdominal pain has been going on for 2-3 days. She receives peritoneal dialysis every 6 hours and was diagnosed with peritonitis 2 days ago by the individual who manages her peritoneal dialysis. She was started on vancomycin and a cephalosporin antibiotic that she cannot recall the name of. She been on antibiotics for 2 days. She puts the medications in her dialysis bags. States that she continues to have abdominal pain despite the antibiotics. Reports that she has not had a bowel movement in 2 days, and prior to that she only had runny stool. Also reports ongoing nausea and vomiting and feels dehydrated. Denies any fevers, chills, sore throat, cough, dyspnea, chest pain, palpitations, abdominal pain, nausea, vomiting, diarrhea, back pain, or headaches. -- Blood work completed reveals a WBC of 8.1, hemoglobin of 8.2, platelet count of 261, sodium 126, potassium 3.4, BUN/creatinine of 52/12.0, consistent with end-stage renal disease, lactic acid levels of 1.5 Computed tomography scan of the abdomen and pelvis obtained revealing a small bowel obstruction. She does also have moderate abdominopelvic ascites and enteritis. Patient admitted to medicine for further management of small bowel obstruction and hyponatremia. Consult placed for general surgery regarding the small bowel obstruction. Consult was also placed for nephrology given that she is a peritoneal dialysis patient. 11/04/2022 the patient is seen and evaluated in room at bedside; patient remains afebrile and is currently breathing comfortably on room air sat complaint of abdominal distention and some discomfort, NG has been placed in by surgery no vomiting has been reported and had denies any diarrhea. Patient did have white count of 8.68, creatinine is 13, repeat peritoneal fluid white count is down to 168, vancomycin and was 9.6 patient presented hospital abdominal pain cloudy peritoneal fluid did have a significant elevated white count in the peritoneal fluid likely secondary to PD catheter associated peritonitis patient did not have any evidence of abdominal infection at the site of insertion of the PD catheter he will need to cover for the gram-positive skin emelina to the likely pathogen underlying gram-negative infection less likely not excluded -patient also have evidence of ileus on the CT may be contributing some of her abdominal pain -patient has received a dose of vancomycin today as the patient vancomycin and was 9.6, the patient will continue with Fortaz with peritoneal dialysis daily, until the cultures are finalized 11/05. Patient seen and examined. States abdominal pain has improved 11/06. Patient seen and examined. Nephrology plan to switch patient to hemodialysis. NG tube in place. Still having abdominal pain 11/07. Patient seen and examined. WBC this morning 13.75, hemoglobin 7, platelet count 305. Patient undergoing hemodialysis today REVIEW OF SYSTEMS: CONSTITUTIONAL: No fever, no malaise,. CARDIOVASCULAR: No chest pain, no palpitations, no syncope. PULMONARY: No shortness of breath, no cough, GASTROINTESTINAL: As mentioned above NEUROLOGICAL: No headaches, no weakness, PHYSICAL EXAMINATION: GENERAL: The patient is alert and oriented x3, not in any acute distress. Well developed, well nourished. HEENT: Pupils are round and equally reacting to light. EOMI. No scleral icterus. No conjunctival pallor. Normocephalic, atraumatic. No pharyngeal erythema. No thyromegaly. CARDIOVASCULAR: S1 and S2 present. No murmurs, rubs, or gallops. PULMONARY: Chest is clear to auscultation, no wheezing or crackles. ABDOMEN: Soft, nontender, nondistended, PD catheter seen, sluggish bowel sounds MUSCULOSKELETAL: No joint swelling or deformity. EXTREMITIES: No cyanosis, clubbing, or pedal edema. NEUROLOGICAL: Gross neurological examination did not reveal any focal deficits. SKIN: No rashes. Assessment and plan 1. Small bowel obstruction -Monitor vital signs Monitor CBC, monitor electrolytes, NG tube placement; Surgery following, planning Robotic lysis of adhesions today, currently nothing by mouth End-stage renal disease on peritoneal dialysis , switched to hemodialysis Hyponatremia; Patient switch to hemodialysis, Continue hemodialysis per nephrology Abdominal pain/PD catheter associated peritonitis; continue IV Unasyn, ID following Hypokalemia; monitor BMP Hypertension; patient remains on metoprolol 50 mg twice a day along with lisinopril 20 mg twice a day Seizure disorder; patient currently not on anti- seizure medication Labs and medication were reviewed.. Continue same treatment. Continue with symptomatic treatment. Resume home medication. Monitor labs and vitals. DVT and GI prophylaxis. Further recommendations as per clinical course of the patient Dictation was produced using dragon dictation software. please excuse any grammatical, word or spelling errors. Objective - Vital Signs Vital signs: Vital Signs Temp 98.7 F 11/07/22 07:11 Pulse 88 11/07/22 07:11 Resp 17 11/07/22 07:11 BP 154/94 11/07/22 07:11 Pulse Ox 97 11/07/22 07:11 FiO2 Intake & Output 11/06/22 11/07/22 11/07/22 18:59 06:59 18:59 Intake Total 50 Output Total 425 400 Balance -375 -400 Weight 99.6 kg Intake: IV 50 Oral 0 Output: Gastric Drainage 425 400 Other: Voiding Method CAPD Toilet # Voids 3 0 - Labs CBC & Chem 7: 11/07/22 04:47 11/07/22 04:47 Labs: Abnormal Lab Results - Last 24 Hours (Table) 11/06/22 11/06/22 11/07/22 Range/Units 03:54 03:54 04:47 WBC 10.78 H 13.75 H (4.50-10.00) X 10*3/uL RBC 2.22 L 2.10 L (4.10-5.20) X 10*6/uL Hgb 7.5 L 7.0 L (12.0-15.0) d/dL Hct 23.8 L 22.7 L (37.2-46.3) % MCV 107.2 H 108.1 H (80.0-97.0) FL MCH 33.8 H 33.3 H (27.0-32.0) pg MCHC 31.5 L 30.8 L (32.0-37.0) d/dL RDW 16.5 H 16.0 H (11.5-14.5) % Neutrophils # 11.47 H (1.80-7.70) X 10*3/uL Potassium 3.3 L (3.5-5.5) mmol/L Chloride 86 L (96-109) mmol/L Anion Gap 19.60 H (4.00-12.00) mmol/L BUN 59.6 H (9.0-27.0) mg/dL Creatinine 12.7 H* (0.6-1.5) mg/dL Est GFR (CKD-EPI) 3 L (>=60) BUN/Creatinine Ratio 4.69 L (12.00-20.00) Ratio Glucose 130 H (70-110) mg/dL Calcium 7.5 L (8.7-10.3) mg/dL Microbiology - Last 24 Hours (Table) 11/05/22 10:15 Gram Stain - Preliminary Peritoneal Fluid Body Fluid Culture - Preliminary 11/02/22 16:19 Gram Stain - Final Peritoneal Fluid Body Fluid Culture - Final Bacteroides thetaiotaomicron 11/04/22 04:00 Blood Culture - Preliminary Blood 11/05/22 18:05 Gram Stain - Preliminary Peritoneal Fluid
[2022-11-07] MEDS ORDERED: POTASSIUM CHLORIDE ER 20 MEQ TAB.ER PO STA (12:37)
--- NOTE | 2022-11-07 12:37 | P.PN ---
Subjective Patient is seen in follow-up for end-stage renal disease. Peritoneal dialysis discontinued 11/06/2022. Currently seen while undergoing hemodialysis. Complains of mild abdominal discomfort. Cell count improved but PMNs remain elevated. Scheduled for surgery today. Vital signs are stable. General: No acute distress. HEENT: Head exam is unremarkable. NG tube noted. LUNGS: No audible rhonchi or wheezes. HEART: Rate and Rhythm are regular. ABDOMEN: Mild generalized tenderness. EXTREMITITES: No edema. Objective - Vital Signs Vital signs: Vital Signs Temp 98.7 F 11/07/22 07:11 Pulse 88 11/07/22 07:11 Resp 17 11/07/22 07:11 BP 154/94 11/07/22 07:11 Pulse Ox 97 11/07/22 07:11 FiO2 Intake & Output 11/06/22 11/07/22 11/07/22 18:59 06:59 18:59 Intake Total 50 Output Total 425 400 Balance -375 -400 Weight 99.6 kg Intake: IV 50 Oral 0 Output: Gastric Drainage 425 400 Other: Voiding Method CAPD Toilet # Voids 3 0 - Labs CBC & Chem 7: 11/07/22 04:47 11/07/22 04:47 Labs: Abnormal Lab Results - Last 24 Hours (Table) 11/07/22 11/07/22 Range/Units 04:47 04:47 WBC 13.75 H (4.50-10.00) X 10*3/uL RBC 2.10 L (4.10-5.20) X 10*6/uL Hgb 7.0 L (12.0-15.0) d/dL Hct 22.7 L (37.2-46.3) % MCV 108.1 H (80.0-97.0) FL MCH 33.3 H (27.0-32.0) pg MCHC 30.8 L (32.0-37.0) d/dL RDW 16.0 H (11.5-14.5) % Neutrophils # 11.47 H (1.80-7.70) X 10*3/uL Chloride 85 L (96-109) mmol/L Anion Gap 23.20 H (4.00-12.00) mmol/L BUN 71.9 H (9.0-27.0) mg/dL Creatinine 14.8 H* (0.6-1.5) mg/dL Est GFR (CKD-EPI) 3 L (>=60) BUN/Creatinine Ratio 4.86 L (12.00-20.00) Ratio Calcium 7.7 L (8.7-10.3) mg/dL Phosphorus 12.4 H* (2.4-5.1) mg/dL Total Bilirubin <0.2 L (0.3-1.2) mg/dL ALT 7 L (8-44) U/L Total Protein 5.1 L (6.2-8.2) d/dL Albumin 2.4 L (3.8-4.9) d/dL Albumin/Globulin Ratio 0.89 L (1.60-3.17) Ratio Microbiology - Last 24 Hours (Table) 11/05/22 10:15 Gram Stain - Preliminary Peritoneal Fluid Body Fluid Culture - Preliminary 11/02/22 16:19 Gram Stain - Final Peritoneal Fluid Body Fluid Culture - Final Bacteroides thetaiotaomicron 11/04/22 04:00 Blood Culture - Preliminary Blood 11/05/22 18:05 Gram Stain - Preliminary Peritoneal Fluid Assessment and Plan Plan: Assessment: 1. End-stage renal disease maintained on peritoneal dialysis. 2. PD associated peritonitis status post second dose of intraperitoneal vancomycin 11/04/2022. Also receiving daily IP Fortaz. Fluid WBC count 4503 on 11/02/2022 and down to 168 11/03/2022. PMNs 93% October 4 an 89% October 5. Fluid culture done prior to admission was positive for E. coli and this admission again positive for bacteroides. PMN count remains elevated. 3. Small bowel obstruction. Has NG tube. Surgery following. Scheduled for surgery today. 4. Anemia of chronic kidney disease. On Aranesp. 5. Hypertension with chronic kidney disease. 6. Chronic kidney disease mineral bone disease. Phosphorus level 12.4 dated 11/07/2022. Expect improvement postdialysis. 7. Hypokalemia from poor intake and PD losses. Replaced. Better. Plan: Patient had PD associated peritonitis with intra-abdominal pathology of bowel obstruction. Scheduled for exploratory laparotomy today. Discontinue PD catheter - to be removed today. Antibiotics per infectious disease. Currently she while undergoing hemodialysis. Next treatment on Saturday. Reassess for PD after one month of bowel rest. Maintain antibiotics. On daily intraperitoneal Fortaz now. Received second dose of intraperitoneal vancomycin 11/04/2022. Replace potassium. Resume phosphate binders once tolerating oral intake.
[2022-11-07] MEDS: POTASSIUM CHLORIDE 10 MEQ in WATER FOR INJECTION 1 100ML.BAG IVPB SCH ×3 (13:19→21:21)
[2022-11-07] MEDS: HYDROmorphone 1 MG/ML 1 ML SYRINGE IVP PRN ×2 (13:26→21:59)
[2022-11-07] MEDS ORDERED: SODIUM CHLORIDE 0.9% 1,000 ML IV ONE ×3 (15:20→18:51)
[2022-11-07 15:32] LABS: Basophils % (A) 0 %; Eosinophils # (A) 0.2 k/uL (0-0.7); Eosinophils % (A) 1 %; HGB 7.9 gm/dL (11.4-16.0); Hypochromasia Slight; Lymphocytes # (A) 0.8 k/uL (1.0-4.8); Lymphocytes % (A) 6 %; MCH 34.5 pg (25.0-35.0); MCHC 32.8 g/dL (31.0-37.0); MCV 105.1 fL (80.0-100.0); Macrocytosis Moderate; Mean Platelet Volume 8.6; Monocytes # (A) 0.4 k/uL (0-1.0); Monocytes % (A) 2 %; Neutrophils # (A) 13.4 k/uL (1.3-7.7); Neutrophils % (A) 90 %; Platelet Count 333 k/uL (150-450); RBC 2.28 m/uL (3.80-5.40); RDW 15.9 % (11.5-15.5)
[2022-11-07] MEDS ORDERED: BUPIVACAINE (PF) 0.5% 30 ML VIAL SQ ONE ×2 (15:36→16:45)
[2022-11-07 15:50] LABS: ALT 12 U/L (4-34); AST 22 U/L (14-36); African American GFR (CKD) 7 (>60 ml/min/1.73 sqM); Albumin 2.5 g/dL (3.5-5.0); Albumin/Globulin Ratio 0.8; Alkaline Phosphatase 73 U/L (38-126); Anion Gap 14 mmol/L; Blood Urea Nitrogen 43 mg/dL (7-17); Calcium 7.7 mg/dL (8.4-10.2); Carbon Dioxide 27 mmol/L (22-30); Chloride 93 mmol/L (98-107); Globulin 3.1 g/dL; Glucose 87 mg/dL (74-99); Non-African American GFR(CKD) 6 (>60 ml/min/1.73 sqM); Potassium 3.9 mmol/L (3.5-5.1); Sodium 134 mmol/L (137-145); Total Bilirubin 0.6 mg/dL (0.2-1.3); Total Protein 5.6 g/dL (6.3-8.2)
[2022-11-07] MEDS ORDERED: ceFAZolin 1,000 MG VIAL ONE (15:55)
[2022-11-07] MEDS ORDERED: fentaNYL (PF) 50 MCG/ML 2 ML AMP ONE (15:55)
[2022-11-07] MEDS ORDERED: MIDAZOLAM 2 MG/2 ML VIAL ONE (15:55)
[2022-11-07] MEDS ORDERED: NEOSTIGMINE 1 MG/ML 10 ML VIAL ONE (15:55)
[2022-11-07] MEDS ORDERED: PROPOFOL 10 MG/ML 20 ML VIAL IV ONE (15:55)
[2022-11-07] MEDS ORDERED: SUCCINYLCHOLINE CHLORIDE 200 MG/10 ML VIAL IV ONE (15:55)
[2022-11-07] MEDS ORDERED: VASOPRESSIN 20 UNIT/ML 1 ML VIAL ONE (15:55)
[2022-11-07] MEDS ORDERED: SODIUM CHLORIDE 0.9% 100 ML BAG ONE (15:55)
[2022-11-07] MEDS ORDERED: ONDANSETRON 4 MG/2 ML VIAL IVP ONE (15:55)
[2022-11-07] MEDS ORDERED: PHENYLEPHRINE-0.9% NACL SYG 1,000 MCG/10 ML SYRINGE ONE (15:55)
[2022-11-07] MEDS ORDERED: DEXAMETHASONE SOD PHOSPHATE 4 MG/ML 1 ML VIAL IVP ONE (15:55)
[2022-11-07] MEDS ORDERED: ROCURONIUM 10 MG/ML (5 ML VIAL) IV ONE (15:55)
[2022-11-07] MEDS ORDERED: GLYCOPYRROLATE 0.2 MG/ML 2 ML VIAL ONE (15:55)
[2022-11-07] MEDS ORDERED: LIDOCAINE 2% INJ 20 MG/ML (2 ML VIAL) ONE (15:55)
[2022-11-07] MEDS ORDERED: SODIUM CHLORIDE 0.9% 50 ML with ceFAZolin 2,000 MG IV ONE ×2 (16:20)
--- NOTE | 2022-11-07 16:37 | P.PN ---
Subjective Progress Note Date: 11/07/22 CHIEF COMPLAINT: Abdominal pain HISTORY OF PRESENT ILLNESS: The patient is a 42-year-old female admitted for abdominal pain. Diagnostic studies demonstrated bowel obstruction. She uses a peritoneal dialysis catheter as he is on the kidney transplant list. Per discussion with yarn twister, request for removal of peritoneal dialysis catheter is being made due to spontaneous bacterial peritonitis and cloudy dialysate. Additionally, I was contacted by infectious disease also with concern of perforated bowel and requested removal of dialysis catheter. Patient had placement of dialysis catheter for vascular yesterday. Patient just completed her hemodialysis today. ROS: No reports of nausea and vomiting. No bowel movements. No fevers or chills. No new chest pain. No productive sputum PHYSICAL EXAM: VITAL SIGNS: Reviewed CONSTITUTIONAL: Well developed and in no acute distress. EYES: Conjuctivae without sclera icterus. Extraocular movements grossly intact. HEAD, EARS, NOSE, THROAT: Moist buccal mucosa. Head is atraumatic, normocephalic. Hears conversational speech. No nasal drainage. RESPIRATORY: Non-labored respirations and equal bilateral excursions. CARDIOVASCULAR: Palpable 2+ radial pulses. ABDOMEN: Peritoneal dialysis catheter size with mildly cloudy dialysate. No gross feculent or purulence. Diffusely tender. No rigidity or guarding. MUSCULOSKELETAL: No gross deformity of the lower extremities noted. No clubbing. No cyanosis. SKIN: Good skin turgor. Well perfused. NEUROLOGIC: Cranial nerves II through XII grossly intact. No focal or lateralizing signs. PSYCH: Appropriate affect. Alert and oriented to person, place and time. CLINICAL LABS: Reviewed. WBC trending upward. Potassium within normal limits. STUDIES: Small bowel follow-through independent review demonstrates no further progression beyond the lower abdomen. Additionally, was personally contacted by the radiologist regarding the findings consistent with bowel obstruction. ASSESSMENT: 1. Bowel obstruction 2. End-stage renal disease peritoneal dialysis dependent PLAN: 1. As the patient is seeking to undergo transplant, minimally invasive approaches were described. 2. Per yarn twister, patient also made aware of need to remove peritoneal dialysis catheter. 3. Possibility of bowel resection also reviewed 4. Patient's elevated risk for complications due to dialysis dependent and spontaneous bacterial peritonitis Objective - Vital Signs Vital signs: Vital Signs Temp 97.2 F L 11/07/22 15:00 Pulse 97 11/07/22 15:00 Resp 16 11/07/22 15:00 BP 160/71 11/07/22 15:00 Pulse Ox 95 11/07/22 15:00 FiO2 Intake & Output 11/06/22 11/07/22 11/07/22 18:59 06:59 18:59 Intake Total 50 400 Output Total 812 475 2809 Balance -375 400 -1400 Weight 99.6 kg 99.6 kg Intake: IV 50 100 Oral 0 Hemodialysis 300 Output: Gastric Drainage 425 400 Hemodialysis 1800 Other: Voiding Method CAPD Toilet # Voids 3 0 - Labs CBC & Chem 7: 11/07/22 15:14 11/07/22 15:14 Labs: Abnormal Lab Results - Last 24 Hours (Table) 11/07/22 11/07/22 11/07/22 Range/Units 04:47 04:47 15:14 WBC 13.75 H 15.0 H (4.50-10.00) X 10*3/uL RBC 2.10 L 2.28 L (4.10-5.20) X 10*6/uL Hgb 7.0 L 7.9 L (12.0-15.0) d/dL Hct 22.7 L 24.0 L (37.2-46.3) % MCV 108.1 H 105.1 H (80.0-97.0) FL MCH 33.3 H (27.0-32.0) pg MCHC 30.8 L (32.0-37.0) d/dL RDW 16.0 H 15.9 H (11.5-14.5) % Neutrophils # 11.47 H 13.4 H (1.80-7.70) X 10*3/uL Lymphocytes # 0.8 L (1.0-4.8) k/uL Sodium (137-145) mmol/L Chloride 85 L (96-109) mmol/L Anion Gap 23.20 H (4.00-12.00) mmol/L BUN 71.9 H (9.0-27.0) mg/dL Creatinine 14.8 H* (0.6-1.5) mg/dL Est GFR (CKD-EPI) 3 L (>=60) BUN/Creatinine Ratio 4.86 L (12.00-20.00) Ratio Calcium 7.7 L (8.7-10.3) mg/dL Phosphorus 12.4 H* (2.4-5.1) mg/dL Total Bilirubin <0.2 L (0.3-1.2) mg/dL ALT 7 L (8-44) U/L Total Protein 5.1 L (6.2-8.2) d/dL Albumin 2.4 L (3.8-4.9) d/dL Albumin/Globulin Ratio 0.89 L (1.60-3.17) Ratio 11/07/22 Range/Units 15:14 WBC (4.50-10.00) X 10*3/uL RBC (4.10-5.20) X 10*6/uL Hgb (12.0-15.0) d/dL Hct (37.2-46.3) % MCV (80.0-97.0) FL MCH (27.0-32.0) pg MCHC (32.0-37.0) d/dL RDW (11.5-14.5) % Neutrophils # (1.80-7.70) X 10*3/uL Lymphocytes # (1.0-4.8) k/uL Sodium 134 L (137-145) mmol/L Chloride 93 L (96-109) mmol/L Anion Gap (4.00-12.00) mmol/L BUN 43 H (9.0-27.0) mg/dL Creatinine 7.75 H* (0.6-1.5) mg/dL Est GFR (CKD-EPI) (>=60) BUN/Creatinine Ratio (12.00-20.00) Ratio Calcium 7.7 L (8.7-10.3) mg/dL Phosphorus (2.4-5.1) mg/dL Total Bilirubin (0.3-1.2) mg/dL ALT (8-44) U/L Total Protein 5.6 L (6.2-8.2) d/dL Albumin 2.5 L (3.8-4.9) d/dL Albumin/Globulin Ratio (1.60-3.17) Ratio Microbiology - Last 24 Hours (Table) 11/05/22 18:05 Gram Stain - Preliminary Peritoneal Fluid Body Fluid Culture - Preliminary 11/04/22 04:00 Blood Culture - Preliminary Blood 11/05/22 10:15 Gram Stain - Preliminary Peritoneal Fluid Body Fluid Culture - Preliminary 11/02/22 16:19 Gram Stain - Final Peritoneal Fluid Body Fluid Culture - Final Bacteroides thetaiotaomicron
[2022-11-07 17:44] LABS: Hepatitis B Surface AB- Quant 41.6 mIU/mL; Hepatitis B Surface Antigen Nonreactive
[2022-11-07] MEDS ORDERED: ALBUTEROL NEBULIZED 2.5 MG/3 ML INHALATION ONE (20:11)
[2022-11-07] MEDS ORDERED: HYDROmorphone 0.5 MG/0.5 ML SYRINGE IVP ONE (20:13)
[2022-11-07] MEDS: AMPICILLIN-SULBACTAM 3 GM in SODIUM CHLORIDE 0.9% 100 ML IVPB SCH ×2 (21:05→22:12)
[2022-11-08] MEDS: HYDROmorphone 1 MG/ML 1 ML SYRINGE IVP PRN ×2 (04:04→15:50)
[2022-11-08] MEDS: SEVELAMER 800 MG TAB PO SCH ×3 (06:29→17:02)
[2022-11-08] MEDS: RENAPLEX D PO SCH (08:37)
[2022-11-08] MEDS: METOPROLOL TARTRATE 25 MG TAB PO SCH ×2 (08:38→20:13)
[2022-11-08] MEDS: lisinopriL 10 MG TAB PO SCH ×2 (08:38→20:13)
[2022-11-08] MEDS: SIMETHICONE 80 MG CHEWABLE PO SCH ×3 (08:39→20:13)
[2022-11-08 10:56] LABS: Basophils # (A) 0.03 X 10*3/uL (0.00-0.10); Basophils % (A) 0.1 %; Eosinophils # (A) 0.01 X 10*3/uL (0.04-0.35); Eosinophils % (A) 0 %; HCT 23.3 % (37.2-46.3); HGB 7.1 d/dL (12.0-15.0); Lymphocytes % (A) 3.7 %; MCH 33.6 pg (27.0-32.0); MCHC 30.5 d/dL (32.0-37.0); MCV 110.4 FL (80.0-97.0); Mean Platelet Volume 10.2 FL (9.5-12.2); Monocytes # (A) 0.54 X 10*3/uL (0.20-1.00); Monocytes % (A) 2.5 %; NRBC Per 100 WBC 0 X 10*3/uL (0.00-0.01); Neutrophils # (A) 19.29 X 10*3/uL (1.80-7.70); Neutrophils % (A) 89.4 %; Platelet Count 339 X 10*3/uL (140-440); RBC 2.11 X 10*6/uL (4.10-5.20); RDW 15.9 % (11.5-14.5)
[2022-11-08 11:24] LABS: ALT 10 U/L (8-44); AST 17 U/L (13-35); Albumin 2.4 d/dL (3.8-4.9); Albumin/Globulin Ratio 0.83 Ratio (1.60-3.17); Alkaline Phosphatase 69 U/L (41-126); BUN/Creat Ratio 5.37 Ratio (12.00-20.00); Blood Urea Nitrogen 54.8 mg/dL (9.0-27.0); Calcium 7.8 mg/dL (8.7-10.3); Carbon Dioxide 23.2 mmol/L (21.6-31.8); Chloride 97 mmol/L (96-109); Globulin 2.9 d/dL (1.6-3.3); Glucose 91 mg/dL (70-110); Potassium 4.3 mmol/L (3.5-5.5); Sodium 141 mmol/L (135-145); Total Bilirubin <0.2 mg/dL (0.3-1.2); Total Protein 5.3 d/dL (6.2-8.2)
--- NOTE | 2022-11-08 11:49 | P.PN ---
Subjective Progress Note Date: 11/08/22 CHIEF COMPLAINT: Small bowel obstruction HISTORY OF PRESENT ILLNESS: Postop day #1 status post robotic-assisted laparoscopic lysis of adhesions and removal of peritoneal dialysis catheter for small bowel obstruction, bacterial peritonitis and right ovarian cyst abscess. Patient reports her pain is controlled. She denies any nausea or vomiting. No flatus. FRANCESCA drain 60 mL serosanguineous output. Afebrile. WBC is up from 15-20 1.6H to be 7.1 sodium is 141 potassium is 4.3 PHYSICAL EXAM: VITAL SIGNS: Reviewed GENERAL: Well-developed in no acute distress. HEENT: No sclera icterus. Extraocular movements grossly intact. Moist buccal mucosa. Head is atraumatic, normocephalic. Hears conversational speech. No nasal drainage. NECK: Supple without lymphadenopathy. CHEST: Non-labored respirations and equal bilateral excursions. CARDIOVASCULAR: Palpable 2+ radial pulses. ABDOMEN: soft, incision sites and dressing are clean dry and intact. FRANCESCA drain in place. MUSCULOSKELETAL: No clubbing or cyanosis. NEUROLOGIC: No focal or lateralizing signs. Cranial nerves II through XII grossly intact. PSYCH: Appropriate affect. Alert and oriented to person, place and time. SKIN: Well perfused. Good skin turgor. ASSESSMENT: 1. Small bowel obstruction 2. Bacterial Peritonitis 3. Right ovarian cyst abscess 4. Abdominal Adhesions 5. End-stage renal disease 6. History of PLAN: -Start clear liquid diet -Recommend no replacement of peritoneal dialysis catheter indefinitely -Continue pain management -Antibiotics per infectious disease -Continue supportive care -Encouraged patient to increase activity level -Encouraged patient to use incentive spirometer Physician Mixing Picker Tender note has been reviewed by physician. Signing provider agrees with the documented findings, assessment, and plan of care. Objective - Vital Signs Vital signs: Vital Signs Temp 98.2 F 11/08/22 07:04 Pulse 81 11/08/22 07:04 Resp 15 11/08/22 07:04 BP 144/87 11/08/22 07:04 Pulse Ox 92 L 11/08/22 07:04 FiO2 Intake & Output 11/07/22 11/08/22 11/08/22 18:59 06:59 18:59 Intake Total 2049 100 Output Total 1999 65 Balance 50 35 Weight 99.6 kg 95 kg Intake: IV 1750 0 Intake, IV Titration 100 Amount Ampicillin-Sulbactam 3 gm 100 In Sodium Chloride 0.9% 100 ml @ 200 mls/hr IVPB Q24H [facility] Rx#:[id number] Hemodialysis 300 Output: Gastric Drainage 200 Drainage 60 Abdomen 60 Urine 0 Hemodialysis 1800 Estimated Blood Loss 5 Other: # Voids 1 - Labs CBC & Chem 7: 11/08/22 06:03 11/08/22 06:03 Labs: Abnormal Lab Results - Last 24 Hours (Table) 11/07/22 11/07/22 11/07/22 Range/Units 10:05 15:14 15:14 WBC 15.0 H (3.8-10.6) k/uL RBC 2.28 L (3.80-5.40) m/uL Hgb 7.9 L (11.4-16.0) gm/dL Hct 24.0 L (34.0-46.0) % MCV 105.1 H (80.0-100.0) fL MCH (27.0-32.0) pg MCHC (32.0-37.0) d/dL RDW 15.9 H (11.5-15.5) % Neutrophils # 13.4 H (1.3-7.7) k/uL Lymphocytes # 0.8 L (1.0-4.8) k/uL Eosinophils # (0.04-0.35) X 10*3/uL Sodium 134 L (137-145) mmol/L Chloride 93 L (98-107) mmol/L Anion Gap (4.00-12.00) mmol/L BUN 43 H (7-17) mg/dL Creatinine 7.75 H* (0.52-1.04) mg/dL Est GFR (CKD-EPI) (>=60) BUN/Creatinine Ratio (12.00-20.00) Ratio Calcium 7.7 L (8.4-10.2) mg/dL Total Bilirubin (0.3-1.2) mg/dL Total Protein 5.6 L (6.3-8.2) g/dL Albumin 2.5 L (3.5-5.0) g/dL Albumin/Globulin Ratio (1.60-3.17) Ratio Hep Bs Antibody A (Negative) 11/08/22 11/08/22 Range/Units 06:03 06:03 WBC 21.60 H (3.8-10.6) k/uL RBC 2.11 L (3.80-5.40) m/uL Hgb 7.1 L (11.4-16.0) gm/dL Hct 23.3 L (34.0-46.0) % MCV 110.4 H (80.0-100.0) fL MCH 33.6 H (27.0-32.0) pg MCHC 30.5 L (32.0-37.0) d/dL RDW 15.9 H (11.5-15.5) % Neutrophils # 19.29 H (1.3-7.7) k/uL Lymphocytes # 0.80 L (1.0-4.8) k/uL Eosinophils # 0.01 L (0.04-0.35) X 10*3/uL Sodium (137-145) mmol/L Chloride (98-107) mmol/L Anion Gap 20.80 H (4.00-12.00) mmol/L BUN 54.8 H (7-17) mg/dL Creatinine 10.2 H* (0.52-1.04) mg/dL Est GFR (CKD-EPI) 4 L (>=60) BUN/Creatinine Ratio 5.37 L (12.00-20.00) Ratio Calcium 7.8 L (8.4-10.2) mg/dL Total Bilirubin <0.2 L (0.3-1.2) mg/dL Total Protein 5.3 L (6.3-8.2) g/dL Albumin 2.4 L (3.5-5.0) g/dL Albumin/Globulin Ratio 0.83 L (1.60-3.17) Ratio Hep Bs Antibody (Negative) Microbiology - Last 24 Hours (Table) 11/05/22 18:05 Gram Stain - Preliminary Peritoneal Fluid Body Fluid Culture - Preliminary 11/04/22 04:00 Blood Culture - Preliminary Blood 11/05/22 10:15 Gram Stain - Preliminary Peritoneal Fluid Body Fluid Culture - Preliminary
--- NOTE | 2022-11-08 12:07 | P.PN ---
Subjective Patient is seen in follow-up for end-stage renal disease. Peritoneal dialysis discontinued 11/06/2022. PD catheter removed 11/07/2022. Tolerated hemodialysis well yesterday. Denies pain. Vital signs are stable. General: No acute distress. HEENT: Head exam is unremarkable. NG tube noted. LUNGS: No audible rhonchi or wheezes. HEART: Rate and Rhythm are regular. ABDOMEN: Mild generalized tenderness. EXTREMITITES: No edema. Objective - Vital Signs Vital signs: Vital Signs Temp 98.2 F 11/08/22 07:04 Pulse 81 11/08/22 07:04 Resp 15 11/08/22 07:04 BP 144/87 11/08/22 07:04 Pulse Ox 92 L 11/08/22 07:04 FiO2 Intake & Output 11/07/22 11/08/22 11/08/22 18:59 06:59 18:59 Intake Total 2049 100 Output Total 1999 65 Balance 50 35 Weight 99.6 kg 95 kg Intake: IV 1750 0 Intake, IV Titration 100 Amount Ampicillin-Sulbactam 3 gm 100 In Sodium Chloride 0.9% 100 ml @ 200 mls/hr IVPB Q24H [facility] Rx#:[id number] Hemodialysis 300 Output: Gastric Drainage 200 Drainage 60 Abdomen 60 Urine 0 Hemodialysis 1800 Estimated Blood Loss 5 Other: # Voids 1 - Labs CBC & Chem 7: 11/08/22 06:03 11/08/22 06:03 Labs: Abnormal Lab Results - Last 24 Hours (Table) 11/07/22 11/07/22 11/07/22 Range/Units 10:05 15:14 15:14 WBC 15.0 H (3.8-10.6) k/uL RBC 2.28 L (3.80-5.40) m/uL Hgb 7.9 L (11.4-16.0) gm/dL Hct 24.0 L (34.0-46.0) % MCV 105.1 H (80.0-100.0) fL MCH (27.0-32.0) pg MCHC (32.0-37.0) d/dL RDW 15.9 H (11.5-15.5) % Neutrophils # 13.4 H (1.3-7.7) k/uL Lymphocytes # 0.8 L (1.0-4.8) k/uL Eosinophils # (0.04-0.35) X 10*3/uL Sodium 134 L (137-145) mmol/L Chloride 93 L (98-107) mmol/L Anion Gap (4.00-12.00) mmol/L BUN 43 H (7-17) mg/dL Creatinine 7.75 H* (0.52-1.04) mg/dL Est GFR (CKD-EPI) (>=60) BUN/Creatinine Ratio (12.00-20.00) Ratio Calcium 7.7 L (8.4-10.2) mg/dL Total Bilirubin (0.3-1.2) mg/dL Total Protein 5.6 L (6.3-8.2) g/dL Albumin 2.5 L (3.5-5.0) g/dL Albumin/Globulin Ratio (1.60-3.17) Ratio Hep Bs Antibody A (Negative) 11/08/22 11/08/22 Range/Units 06:03 06:03 WBC 21.60 H (3.8-10.6) k/uL RBC 2.11 L (3.80-5.40) m/uL Hgb 7.1 L (11.4-16.0) gm/dL Hct 23.3 L (34.0-46.0) % MCV 110.4 H (80.0-100.0) fL MCH 33.6 H (27.0-32.0) pg MCHC 30.5 L (32.0-37.0) d/dL RDW 15.9 H (11.5-15.5) % Neutrophils # 19.29 H (1.3-7.7) k/uL Lymphocytes # 0.80 L (1.0-4.8) k/uL Eosinophils # 0.01 L (0.04-0.35) X 10*3/uL Sodium (137-145) mmol/L Chloride (98-107) mmol/L Anion Gap 20.80 H (4.00-12.00) mmol/L BUN 54.8 H (7-17) mg/dL Creatinine 10.2 H* (0.52-1.04) mg/dL Est GFR (CKD-EPI) 4 L (>=60) BUN/Creatinine Ratio 5.37 L (12.00-20.00) Ratio Calcium 7.8 L (8.4-10.2) mg/dL Total Bilirubin <0.2 L (0.3-1.2) mg/dL Total Protein 5.3 L (6.3-8.2) g/dL Albumin 2.4 L (3.5-5.0) g/dL Albumin/Globulin Ratio 0.83 L (1.60-3.17) Ratio Hep Bs Antibody (Negative) Microbiology - Last 24 Hours (Table) 11/05/22 18:05 Gram Stain - Preliminary Peritoneal Fluid Body Fluid Culture - Preliminary 11/04/22 04:00 Blood Culture - Preliminary Blood 11/05/22 10:15 Gram Stain - Preliminary Peritoneal Fluid Body Fluid Culture - Preliminary Assessment and Plan Plan: Assessment: 1. End-stage renal disease maintained on peritoneal dialysis. 2. PD associated peritonitis status post second dose of intraperitoneal vancomycin 11/04/2022. Also receiving daily IP Fortaz. Fluid WBC count 4503 on 11/02/2022 and down to 168 11/03/2022. PMNs 93% October 4 an 89% October 5. Fluid culture done prior to admission was positive for E. coli and this admission again positive for bacteroides. PMN count remains elevated. PD catheter discontinued 11/07/2022. 3. Small bowel obstruction. Has NG tube. Surgery following. Status post laparoscopic lysis of adhesions and removal of PD catheter 11/07/2022. 4. Anemia of chronic kidney disease. On Aranesp. 5. Hypertension with chronic kidney disease. Stable. 6. Chronic kidney disease mineral bone disease. Phosphorus level 12.4 dated 11/07/2022. Expect improvement postdialysis. 7. Hypokalemia from poor intake and PD losses. Replaced. Better. Plan: Hemodialysis tomorrow. Antibiotics per infectious disease. Reassess for PD after one month of bowel rest. Resume phosphate binders with meals and snacks. Repeat phosphorus level.
[2022-11-08] MEDS ORDERED: CALCIUM ACETATE 667 MG TAB PO SCH (12:30)
--- NOTE | 2022-11-08 13:34 | P.PN ---
Subjective Progress Note Date: 11/08/22 42-year-old female, history of hypertension, seizure disorder, chronic kidney disease/dialysis who presents to the emergency department for abdominal pain. Patient states that abdominal pain has been going on for 2-3 days. She receives peritoneal dialysis every 6 hours and was diagnosed with peritonitis 2 days ago by the individual who manages her peritoneal dialysis. She was started on vancomycin and a cephalosporin antibiotic that she cannot recall the name of. She been on antibiotics for 2 days. She puts the medications in her dialysis bags. States that she continues to have abdominal pain despite the antibiotics. Reports that she has not had a bowel movement in 2 days, and prior to that she only had runny stool. Also reports ongoing nausea and vomiting and feels dehydrated. Denies any fevers, chills, sore throat, cough, dyspnea, chest pain, palpitations, abdominal pain, nausea, vomiting, diarrhea, back pain, or headaches. -- Blood work completed reveals a WBC of 8.1, hemoglobin of 8.2, platelet count of 261, sodium 126, potassium 3.4, BUN/creatinine of 52/12.0, consistent with end-stage renal disease, lactic acid levels of 1.5 Computed tomography scan of the abdomen and pelvis obtained revealing a small bowel obstruction. She does also have moderate abdominopelvic ascites and enteritis. Patient admitted to medicine for further management of small bowel obstruction and hyponatremia. Consult placed for general surgery regarding the small bowel obstruction. Consult was also placed for nephrology given that she is a peritoneal dialysis patient. 11/04/2022 the patient is seen and evaluated in room at bedside; patient remains afebrile and is currently breathing comfortably on room air sat complaint of abdominal distention and some discomfort, NG has been placed in by surgery no vomiting has been reported and had denies any diarrhea. Patient did have white count of 8.68, creatinine is 13, repeat peritoneal fluid white count is down to 168, vancomycin and was 9.6 patient presented hospital abdominal pain cloudy peritoneal fluid did have a significant elevated white count in the peritoneal fluid likely secondary to PD catheter associated peritonitis patient did not have any evidence of abdominal infection at the site of insertion of the PD catheter he will need to cover for the gram-positive skin emelina to the likely pathogen underlying gram-negative infection less likely not excluded -patient also have evidence of ileus on the CT may be contributing some of her abdominal pain -patient has received a dose of vancomycin today as the patient vancomycin and was 9.6, the patient will continue with Fortaz with peritoneal dialysis daily, until the cultures are finalized 11/05. Patient seen and examined. States abdominal pain has improved 11/06. Patient seen and examined. Nephrology plan to switch patient to hemodialysis. NG tube in place. Still having abdominal pain 11/07. Patient seen and examined. WBC this morning 13.75, hemoglobin 7, platelet count 305. Patient undergoing hemodialysis today 11/08. Patient seen and examined. Patient underwent status post robotic- assisted laparoscopic lysis of adhesions and removal of peritoneal dialysis catheter for small bowel obstruction, bacterial peritonitis and right ovarian cyst abscess. Currently on clear liquid diet. Abdominal pain has improved REVIEW OF SYSTEMS: CONSTITUTIONAL: No fever, no malaise,. CARDIOVASCULAR: No chest pain, no palpitations, no syncope. PULMONARY: No shortness of breath, no cough, GASTROINTESTINAL: As mentioned above NEUROLOGICAL: No headaches, no weakness, PHYSICAL EXAMINATION: GENERAL: The patient is alert and oriented x3, not in any acute distress. Well developed, well nourished. HEENT: Pupils are round and equally reacting to light. EOMI. No scleral icterus. No conjunctival pallor. Normocephalic, atraumatic. No pharyngeal erythema. No thyromegaly. CARDIOVASCULAR: S1 and S2 present. No murmurs, rubs, or gallops. PULMONARY: Chest is clear to auscultation, no wheezing or crackles. ABDOMEN: Soft, nontender, surgical incision seen, drain in place MUSCULOSKELETAL: No joint swelling or deformity. EXTREMITIES: No cyanosis, clubbing, or pedal edema. NEUROLOGICAL: Gross neurological examination did not reveal any focal deficits. SKIN: No rashes. Assessment and plan Small bowel obstruction Abdominal pain PD catheter associated peritonitis -Monitor vital signs Monitor CBC, monitor electrolytes, NG tube placement; status post robotic-assisted laparoscopic lysis of adhesions and removal of peritoneal dialysis catheter for small bowel obstruction, bacterial peritonitis and right ovarian cyst abscess End-stage renal disease on peritoneal dialysis , switched to hemodialysis Hyponatremia; Continue hemodialysis per nephrology Hypokalemia; monitor BMP Hypertension; patient remains on metoprolol 50 mg twice a day along with lisinopril 20 mg twice a day Seizure disorder; patient currently not on anti- seizure medication Anemia; monitor CBC Labs and medication were reviewed.. Continue same treatment. Continue with symptomatic treatment. Resume home medication. Monitor labs and vitals. DVT and GI prophylaxis. Further recommendations as per clinical course of the patient Dictation was produced using [employer] dictation software. please excuse any grammatical, word or spelling errors. Objective - Vital Signs Vital signs: Vital Signs Temp 98.2 F 11/08/22 07:04 Pulse 81 11/08/22 07:04 Resp 15 11/08/22 07:04 BP 144/87 11/08/22 07:04 Pulse Ox 92 L 11/08/22 07:04 FiO2 Intake & Output 11/07/22 11/08/22 11/08/22 18:59 06:59 18:59 Intake Total 2049 100 Output Total 1999 65 Balance 50 35 Weight 99.6 kg 95 kg Intake: IV 1750 0 Intake, IV Titration 100 Amount Ampicillin-Sulbactam 3 gm 100 In Sodium Chloride 0.9% 100 ml @ 200 mls/hr IVPB Q24H [facility] Rx#:[id number] Hemodialysis 300 Output: Gastric Drainage 200 Drainage 60 Abdomen 60 Urine 0 Hemodialysis 1800 Estimated Blood Loss 5 Other: # Voids 1 - Labs CBC & Chem 7: 11/08/22 06:03 11/08/22 06:03 Labs: Abnormal Lab Results - Last 24 Hours (Table) 11/07/22 11/07/22 11/07/22 Range/Units 10:05 15:14 15:14 WBC 15.0 H (3.8-10.6) k/uL RBC 2.28 L (3.80-5.40) m/uL Hgb 7.9 L (11.4-16.0) gm/dL Hct 24.0 L (34.0-46.0) % MCV 105.1 H (80.0-100.0) fL MCH (27.0-32.0) pg MCHC (32.0-37.0) d/dL RDW 15.9 H (11.5-15.5) % Neutrophils # 13.4 H (1.3-7.7) k/uL Lymphocytes # 0.8 L (1.0-4.8) k/uL Eosinophils # (0.04-0.35) X 10*3/uL Sodium 134 L (137-145) mmol/L Chloride 93 L (98-107) mmol/L Anion Gap (4.00-12.00) mmol/L BUN 43 H (7-17) mg/dL Creatinine 7.75 H* (0.52-1.04) mg/dL Est GFR (CKD-EPI) (>=60) BUN/Creatinine Ratio (12.00-20.00) Ratio Calcium 7.7 L (8.4-10.2) mg/dL Total Bilirubin (0.3-1.2) mg/dL Total Protein 5.6 L (6.3-8.2) g/dL Albumin 2.5 L (3.5-5.0) g/dL Albumin/Globulin Ratio (1.60-3.17) Ratio Hep Bs Antibody A (Negative) 11/08/22 11/08/22 Range/Units 06:03 06:03 WBC 21.60 H (3.8-10.6) k/uL RBC 2.11 L (3.80-5.40) m/uL Hgb 7.1 L (11.4-16.0) gm/dL Hct 23.3 L (34.0-46.0) % MCV 110.4 H (80.0-100.0) fL MCH 33.6 H (27.0-32.0) pg MCHC 30.5 L (32.0-37.0) d/dL RDW 15.9 H (11.5-15.5) % Neutrophils # 19.29 H (1.3-7.7) k/uL Lymphocytes # 0.80 L (1.0-4.8) k/uL Eosinophils # 0.01 L (0.04-0.35) X 10*3/uL Sodium (137-145) mmol/L Chloride (98-107) mmol/L Anion Gap 20.80 H (4.00-12.00) mmol/L BUN 54.8 H (7-17) mg/dL Creatinine 10.2 H* (0.52-1.04) mg/dL Est GFR (CKD-EPI) 4 L (>=60) BUN/Creatinine Ratio 5.37 L (12.00-20.00) Ratio Calcium 7.8 L (8.4-10.2) mg/dL Total Bilirubin <0.2 L (0.3-1.2) mg/dL Total Protein 5.3 L (6.3-8.2) g/dL Albumin 2.4 L (3.5-5.0) g/dL Albumin/Globulin Ratio 0.83 L (1.60-3.17) Ratio Hep Bs Antibody (Negative) Microbiology - Last 24 Hours (Table) 11/05/22 18:05 Gram Stain - Preliminary Peritoneal Fluid Body Fluid Culture - Preliminary 11/04/22 04:00 Blood Culture - Preliminary Blood
[2022-11-08] MEDS: CYCLOBENZAPRINE 5 MG TAB PO PRN ×2 (14:47→23:00)
--- NOTE | 2022-11-08 15:20 | P.PN ---
Subjective Progress Note Date: 11/07/22 Principal diagnosis: PD catheter associated peritonitis Patient is a 42-year-old female with a past medical history negative for hypertension seizure disorder history of end-stage renal disease on peritoneal dialysis since December 2018 did have 1 previous episode of infection treated with antibiotics patient started having a problem with abdominal pain that started on Saturday is about 4 days before presentation to the hospital, patient has been diagnosed with peritonitis also have CT abdominal pelvis suggestive of ileus. On today's evaluation that is 11/07/2022, the patient continues to be afebrile the patient is breathing comfortably on 2 L nasal cannula oxygen, the patient is still complaining of abdominal distention and pain, NG has been placed in by surgery no vomiting has been reported and the patient denies any bowel movement Patient did have white count of 15,000, creatinine is 7.75 abdominal cultures currently growing Bacteroides species Objective - Vital Signs Vital signs: Vital Signs Temp 98.0 F 11/07/22 12:37 Pulse 84 11/07/22 12:37 Resp 19 11/07/22 12:37 BP 149/98 11/07/22 12:37 Pulse Ox 97 11/07/22 07:11 FiO2 Intake & Output 11/06/22 11/07/22 11/07/22 18:59 06:59 18:59 Intake Total 50 300 Output Total 453 258 4006 Balance -375 -400 -1500 Weight 99.6 kg Intake: IV 50 Oral 0 Hemodialysis 300 Output: Gastric Drainage 425 400 Hemodialysis 1800 Other: Voiding Method CAPD Toilet # Voids 3 0 - Exam GENERAL DESCRIPTION: Middle-aged female lying in bed in no distress RESPIRATORY SYSTEM: Unlabored breathing , decreased breath sounds at bases HEART: S1 S2 regular rate and rhythm , ABDOMEN: Soft , mild abdominal distention and tenderness EXTREMITIES: No edema feet - Labs CBC & Chem 7: 11/08/22 06:03 11/08/22 06:03 Labs: Abnormal Lab Results - Last 24 Hours (Table) 11/07/22 11/07/22 Range/Units 04:47 04:47 WBC 13.75 H (4.50-10.00) X 10*3/uL RBC 2.10 L (4.10-5.20) X 10*6/uL Hgb 7.0 L (12.0-15.0) d/dL Hct 22.7 L (37.2-46.3) % MCV 108.1 H (80.0-97.0) FL MCH 33.3 H (27.0-32.0) pg MCHC 30.8 L (32.0-37.0) d/dL RDW 16.0 H (11.5-14.5) % Neutrophils # 11.47 H (1.80-7.70) X 10*3/uL Chloride 85 L (96-109) mmol/L Anion Gap 23.20 H (4.00-12.00) mmol/L BUN 71.9 H (9.0-27.0) mg/dL Creatinine 14.8 H* (0.6-1.5) mg/dL Est GFR (CKD-EPI) 3 L (>=60) BUN/Creatinine Ratio 4.86 L (12.00-20.00) Ratio Calcium 7.7 L (8.7-10.3) mg/dL Phosphorus 12.4 H* (2.4-5.1) mg/dL Total Bilirubin <0.2 L (0.3-1.2) mg/dL ALT 7 L (8-44) U/L Total Protein 5.1 L (6.2-8.2) d/dL Albumin 2.4 L (3.8-4.9) d/dL Albumin/Globulin Ratio 0.89 L (1.60-3.17) Ratio Microbiology - Last 24 Hours (Table) 11/05/22 10:15 Gram Stain - Preliminary Peritoneal Fluid Body Fluid Culture - Preliminary 11/02/22 16:19 Gram Stain - Final Peritoneal Fluid Body Fluid Culture - Final Bacteroides thetaiotaomicron 11/04/22 04:00 Blood Culture - Preliminary Blood 11/05/22 18:05 Gram Stain - Preliminary Peritoneal Fluid Assessment and Plan (1) Peritonitis associated with continuous ambulatory peritoneal dialysis Current Visit: Yes Status: Acute Code(s): T80.89XA - OTH COMP FOL INFUSION, TRANSFUSE AND THERAPUTC INJECT, INIT; K65.9 - PERITONITIS, UNSPECIFIED; Z99.2 - DEPENDENCE ON RENAL DIALYSIS SNOMED Code(s): 019954037 Plan: 1patient presented hospital abdominal pain cloudy peritoneal fluid did have a significant elevated white in the peritoneal fluid likely secondary to PD catheter associated peritonitis patient did not have any evidence of abdominal infection at the site of insertion of the PD catheter he will need to cover for the gram-positive skin emelina to the likely pathogen underlying gram-negative infection less likely not excluded 2-patient also have evidence of ileus on the CT may be contributing some of her abdominal pain, patient did have a small bowel follow-through, did show delayed transit of contrast through the bowel with no evidence of small bowel obstruction 3-patient abdominal cultures currently growing Bacteroides species possibly indicating gut leak this has been discussed in detail with the surgeon as the patient scheduled to go for surgery this afternoon continue with Unasyn Dictation was produced using [employer] software. please excuse any grammatical, word or spelling errors. Time with Patient: Less than 30
--- NOTE | 2022-11-08 15:23 | P.PN ---
Subjective Progress Note Date: 11/08/22 Principal diagnosis: PD catheter associated peritonitis Patient is a 42-year-old female with a past medical history negative for hypertension seizure disorder history of end-stage renal disease on peritoneal dialysis since December 2018 did have 1 previous episode of infection treated with antibiotics patient started having a problem with abdominal pain that started on Saturday is about 4 days before presentation to the hospital, patient has been diagnosed with peritonitis also have CT abdominal pelvis suggestive of ileus.Patient is status post laparoscopic lysis of adhesion removal of dialysis catheter and drainage of the right awaiting cyst abscess on 11/07/2022. on today's evaluation that is 11/08/2022, the patient denies having any fever or any chills, the patient is breathing comfortably on a 2 L nasal cannula oxygen the patient abdominal pain has decreased in intensity still have the NG did not have any bowel movement Patient did have white count has jumped to 21,000 today, creatinine is 10.2, , abdominal cultures currently growing Bacteroides species, OR cultures currently pending Objective - Vital Signs Vital signs: Vital Signs Temp 98.2 F 11/08/22 07:04 Pulse 81 11/08/22 07:04 Resp 15 11/08/22 07:04 BP 144/87 11/08/22 07:04 Pulse Ox 92 L 11/08/22 07:04 FiO2 Intake & Output 11/07/22 11/08/22 11/08/22 18:59 06:59 18:59 Intake Total 2049 100 Output Total 1999 65 Balance 50 35 Weight 99.6 kg 95 kg Intake: IV 1750 0 Intake, IV Titration 100 Amount Ampicillin-Sulbactam 3 gm 100 In Sodium Chloride 0.9% 100 ml @ 200 mls/hr IVPB Q24H [facility] Rx#:[id number] Hemodialysis 300 Output: Gastric Drainage 200 Drainage 60 Abdomen 60 Urine 0 Hemodialysis 1800 Estimated Blood Loss 5 Other: # Voids 1 - Exam GENERAL DESCRIPTION: Middle-aged female lying in bed in no distress RESPIRATORY SYSTEM: Unlabored breathing , decreased breath sounds at bases HEART: S1 S2 regular rate and rhythm , ABDOMEN: Soft , mild abdominal distention and tenderness EXTREMITIES: No edema feet - Labs CBC & Chem 7: 11/08/22 06:03 11/08/22 06:03 Labs: Abnormal Lab Results - Last 24 Hours (Table) 11/07/22 11/07/22 11/07/22 Range/Units 10:05 15:14 15:14 WBC 15.0 H (3.8-10.6) k/uL RBC 2.28 L (3.80-5.40) m/uL Hgb 7.9 L (11.4-16.0) gm/dL Hct 24.0 L (34.0-46.0) % MCV 105.1 H (80.0-100.0) fL MCH (27.0-32.0) pg MCHC (32.0-37.0) d/dL RDW 15.9 H (11.5-15.5) % Neutrophils # 13.4 H (1.3-7.7) k/uL Lymphocytes # 0.8 L (1.0-4.8) k/uL Eosinophils # (0.04-0.35) X 10*3/uL Sodium 134 L (137-145) mmol/L Chloride 93 L (98-107) mmol/L Anion Gap (4.00-12.00) mmol/L BUN 43 H (7-17) mg/dL Creatinine 7.75 H* (0.52-1.04) mg/dL Est GFR (CKD-EPI) (>=60) BUN/Creatinine Ratio (12.00-20.00) Ratio Calcium 7.7 L (8.4-10.2) mg/dL Total Bilirubin (0.3-1.2) mg/dL Total Protein 5.6 L (6.3-8.2) g/dL Albumin 2.5 L (3.5-5.0) g/dL Albumin/Globulin Ratio (1.60-3.17) Ratio Hep Bs Antibody A (Negative) 11/08/22 11/08/22 Range/Units 06:03 06:03 WBC 21.60 H (3.8-10.6) k/uL RBC 2.11 L (3.80-5.40) m/uL Hgb 7.1 L (11.4-16.0) gm/dL Hct 23.3 L (34.0-46.0) % MCV 110.4 H (80.0-100.0) fL MCH 33.6 H (27.0-32.0) pg MCHC 30.5 L (32.0-37.0) d/dL RDW 15.9 H (11.5-15.5) % Neutrophils # 19.29 H (1.3-7.7) k/uL Lymphocytes # 0.80 L (1.0-4.8) k/uL Eosinophils # 0.01 L (0.04-0.35) X 10*3/uL Sodium (137-145) mmol/L Chloride (98-107) mmol/L Anion Gap 20.80 H (4.00-12.00) mmol/L BUN 54.8 H (7-17) mg/dL Creatinine 10.2 H* (0.52-1.04) mg/dL Est GFR (CKD-EPI) 4 L (>=60) BUN/Creatinine Ratio 5.37 L (12.00-20.00) Ratio Calcium 7.8 L (8.4-10.2) mg/dL Total Bilirubin <0.2 L (0.3-1.2) mg/dL Total Protein 5.3 L (6.3-8.2) g/dL Albumin 2.4 L (3.5-5.0) g/dL Albumin/Globulin Ratio 0.83 L (1.60-3.17) Ratio Hep Bs Antibody (Negative) Microbiology - Last 24 Hours (Table) 11/05/22 18:05 Gram Stain - Preliminary Peritoneal Fluid Body Fluid Culture - Preliminary 11/04/22 04:00 Blood Culture - Preliminary Blood 11/05/22 10:15 Gram Stain - Preliminary Peritoneal Fluid Body Fluid Culture - Preliminary Assessment and Plan (1) Peritonitis associated with continuous ambulatory peritoneal dialysis Current Visit: Yes Status: Acute Code(s): T80.89XA - OTH COMP FOL INFUSION, TRANSFUSE AND THERAPUTC INJECT, INIT; K65.9 - PERITONITIS, UNSPECIFIED; Z99.2 - DEPENDENCE ON RENAL DIALYSIS SNOMED Code(s): 625814654 Plan: 1patient presented hospital abdominal pain cloudy peritoneal fluid did have a significant elevated white in the peritoneal fluid likely secondary to PD catheter associated peritonitis patient did not have any evidence of abdominal infection at the site of insertion of the PD catheter he will need to cover for the gram-positive skin emelina to the likely pathogen underlying gram-negative infection less likely not excluded 2-patient also have evidence of ileus on the CT may be contributing some of her abdominal pain, patient did have a small bowel follow-through, did show delayed transit of contrast through the bowel with no evidence of small bowel obstruction 3-patient is status post laparoscopic lysis of adhesion removal of the dialysis catheter and drainage of the overweight and abscess abdominal cultures currently pending patient did have slight worsening of the white count, we will change antibiotic to Zosyn while waiting for the cultures to finalize Dictation was produced using [employer] dictation software. please excuse any grammatical, word or spelling errors. Time with Patient: Less than 30
[2022-11-08] MEDS: PIPERACILLIN-TAZOBACTAM 3.375 GM in SODIUM CHLORIDE 0.9% 100 ML IVPB SCH (15:50)
[2022-11-08] MEDS: AMPICILLIN-SULBACTAM 3 GM in SODIUM CHLORIDE 0.9% 100 ML IVPB SCH (16:15)
[2022-11-08] MEDS: ACETAMINOPHEN TAB 500 MG TAB PO SCH ×2 (17:02→23:00)
[2022-11-08] MEDS: HYDROmorphone 0.5 MG/0.5 ML SYRINGE IVP PRN ×2 (20:14→23:00)
[2022-11-09] MEDS: HYDROmorphone 1 MG/ML 1 ML SYRINGE IVP PRN ×2 (03:32→09:08)
[2022-11-09] MEDS: PIPERACILLIN-TAZOBACTAM 3.375 GM in SODIUM CHLORIDE 0.9% 100 ML IVPB SCH ×2 (03:33→18:20)
[2022-11-09] MEDS: ACETAMINOPHEN TAB 500 MG TAB PO SCH ×3 (06:41→18:19)
[2022-11-09] MEDS: SEVELAMER 800 MG TAB PO SCH ×3 (07:08→18:21)
[2022-11-09] MEDS: METOPROLOL TARTRATE 25 MG TAB PO SCH ×2 (09:00→21:22)
[2022-11-09] MEDS: SIMETHICONE 80 MG CHEWABLE PO SCH ×3 (09:04→22:14)
[2022-11-09] MEDS: lisinopriL 10 MG TAB PO SCH ×2 (09:04→21:22)
[2022-11-09] MEDS: RENAPLEX D PO SCH (09:08)
--- NOTE | 2022-11-09 11:26 | P.PN ---
Subjective Patient is seen in follow-up for end-stage renal disease. Peritoneal dialysis discontinued 11/06/2022. PD catheter removed 11/07/2022. Now on hemodialysis. Tolerating dialysis well. Vital signs are stable. General: No acute distress. HEENT: Head exam is unremarkable. NG tube noted. LUNGS: No audible rhonchi or wheezes. HEART: Rate and Rhythm are regular. ABDOMEN: Mild generalized tenderness. EXTREMITITES: No edema. Objective - Vital Signs Vital signs: Vital Signs Temp 98.5 F 11/09/22 07:11 Pulse 88 11/09/22 07:11 Resp 18 11/09/22 07:11 BP 168/102 11/09/22 07:11 Pulse Ox 94 L 11/09/22 07:11 FiO2 Intake & Output 11/08/22 11/09/22 11/09/22 18:59 06:59 18:59 Intake Total 200 Output Total 55 Balance -55 200 Weight 99 kg Intake: Oral 200 Output: Drainage 55 Abdomen 55 Other: # Voids 0 0 - Labs CBC & Chem 7: 11/08/22 06:03 11/08/22 06:03 Labs: Abnormal Lab Results - Last 24 Hours (Table) 11/08/22 Range/Units 06:03 Anion Gap 20.80 H (4.00-12.00) mmol/L BUN 54.8 H (9.0-27.0) mg/dL Creatinine 10.2 H* (0.6-1.5) mg/dL Est GFR (CKD-EPI) 4 L (>=60) BUN/Creatinine Ratio 5.37 L (12.00-20.00) Ratio Calcium 7.8 L (8.7-10.3) mg/dL Total Bilirubin <0.2 L (0.3-1.2) mg/dL Total Protein 5.3 L (6.2-8.2) d/dL Albumin 2.4 L (3.8-4.9) d/dL Albumin/Globulin Ratio 0.83 L (1.60-3.17) Ratio Microbiology - Last 24 Hours (Table) 11/07/22 19:43 Gram Stain - Preliminary Catheter Site Tissue Culture - Preliminary 11/07/22 19:43 Catheter Tip Culture - Preliminary Catheter Tip 11/05/22 18:05 Gram Stain - Preliminary Peritoneal Fluid Body Fluid Culture - Preliminary Anaerobic Gm Negative Bacilli 11/05/22 10:15 Gram Stain - Final Peritoneal Fluid Body Fluid Culture - Final 11/05/22 10:15 Anaerobic Culture - Preliminary Peritoneal Fluid Anaerobic Gm Negative Bacilli Assessment and Plan Plan: Assessment: 1. End-stage renal disease maintained on peritoneal dialysis. 2. PD associated peritonitis status post second dose of intraperitoneal vanco mycin 11/04/2022. Also receiving daily IP Fortaz. Fluid WBC count 4503 on 11/02/2022 and down to 168 11/03/2022. PMNs 93% October 4 an 89% October 5. Fluid culture done prior to admission was positive for E. coli and this admission again positive for bacteroides. PMN count remains elevated. PD ca theter discontinued 11/07/2022. 3. Small bowel obstruction. Has NG tube. Surgery following. Status post laparoscopic lysis of adhesions and removal of PD catheter 11/07/2022. 4. Anemia of chronic kidney disease. On Aranesp. 5. Hypertension with chronic kidney disease. Stable. 6. Chronic kidney disease mineral bone disease. Phosphorus level 12.4 dated 11/07/2022. Expect improvement postdialysis. Renvela resumed. 7. Hypokalemia from poor intake and PD losses. Replaced. Better. Plan: Currently seen while undergoing hemodialysis. Next treatment on Saturday. Antibiotics per infectious disease. Follow-up repeat phosphorus level. Discussed with surgery team. Due to severe adhesions, she will not be a candidate for peritoneal dialysis in the future. Discussed workup for kidney transplant upon discharge.
--- NOTE | 2022-11-09 12:46 | P.PN ---
Subjective Progress Note Date: 11/09/22 CHIEF COMPLAINT: Small bowel obstruction HISTORY OF PRESENT ILLNESS: Postop day #2 status post robotic-assisted laparoscopic lysis of adhesions and removal of peritoneal dialysis catheter for small bowel obstruction, bacterial peritonitis and right ovarian cyst abscess. Patient receiving hemodialysis. She reports her pain is controlled. She is having flatus. No bowel movement. Denies any nausea or vomiting. Afebrile. Labs for today pending. FRANCESCA drain with 40 mL serosanguineous output PHYSICAL EXAM: VITAL SIGNS: Reviewed GENERAL: Well-developed in no acute distress. HEENT: No sclera icterus. Extraocular movements grossly intact. Moist buccal mucosa. Head is atraumatic, normocephalic. Hears conversational speech. No nasal drainage. NECK: Supple without lymphadenopathy. CHEST: Non-labored respirations and equal bilateral excursions. CARDIOVASCULAR: Palpable 2+ radial pulses. ABDOMEN: soft, incision sites and dressing are clean dry and intact. FRANCESCA drain in place. MUSCULOSKELETAL: No clubbing or cyanosis. NEUROLOGIC: No focal or lateralizing signs. Cranial nerves II through XII grossly intact. PSYCH: Appropriate affect. Alert and oriented to person, place and time. SKIN: Well perfused. Good skin turgor. ASSESSMENT: 1. Small bowel obstruction 2. Bacterial Peritonitis 3. Right ovarian cyst abscess 4. Abdominal Adhesions 5. End-stage renal disease 6. History of PLAN: -Advance diet to low fiber -Patient can be discharged from surgical standpoint when medically cleared and tolerates diet -Antibiotics per infectious disease -Recommend NO replacement of peritoneal dialysis catheter ever -Continue pain management -Continue supportive care -Encouraged patient to increase activity level -Encouraged patient to use incentive spirometer Physician Machine Umbrella Tipper note has been reviewed by physician. Signing provider agrees with the documented findings, assessment, and plan of care. Objective - Vital Signs Vital signs: Vital Signs Temp 98.5 F 11/09/22 07:11 Pulse 88 11/09/22 07:11 Resp 18 11/09/22 07:11 BP 168/102 11/09/22 07:11 Pulse Ox 94 L 11/09/22 07:11 FiO2 Intake & Output 11/08/22 11/09/22 11/09/22 18:59 06:59 18:59 Intake Total 200 Output Total 55 20 Balance -55 180 Weight 99 kg Intake: Oral 200 Output: Drainage 55 20 Abdomen 55 20 Other: # Voids 0 0 - Labs CBC & Chem 7: 11/08/22 06:03 11/08/22 06:03 Labs: Microbiology - Last 24 Hours (Table) 11/07/22 19:43 Gram Stain - Preliminary Catheter Site Tissue Culture - Preliminary 11/07/22 19:43 Catheter Tip Culture - Preliminary Catheter Tip 11/05/22 18:05 Gram Stain - Preliminary Peritoneal Fluid Body Fluid Culture - Preliminary Anaerobic Gm Negative Bacilli 11/05/22 10:15 Gram Stain - Final Peritoneal Fluid Body Fluid Culture - Final 11/05/22 10:15 Anaerobic Culture - Preliminary Peritoneal Fluid Anaerobic Gm Negative Bacilli
[2022-11-09 13:34] LABS: HCT 22.5 % (37.2-46.3); HGB 6.8 d/dL (12.0-15.0); MCH 33.5 pg (27.0-32.0); MCHC 30.2 d/dL (32.0-37.0); MCV 110.8 FL (80.0-97.0); Mean Platelet Volume 10.5 FL (9.5-12.2); NRBC Per 100 WBC 0.02 X 10*3/uL (0.00-0.01); Platelet Count 338 X 10*3/uL (140-440); RBC 2.03 X 10*6/uL (4.10-5.20); RDW 15.9 % (11.5-14.5); WBC 19.98 X 10*3/uL (4.50-10.00)
[2022-11-09 13:48] LABS: ALT 6 U/L (8-44); AST 18 U/L (13-35); Albumin 2.3 d/dL (3.8-4.9); Albumin/Globulin Ratio 0.79 Ratio (1.60-3.17); Alkaline Phosphatase 61 U/L (41-126); BUN/Creat Ratio 5.71 Ratio (12.00-20.00); Blood Urea Nitrogen 73.7 mg/dL (9.0-27.0); Calcium 8.2 mg/dL (8.7-10.3); Carbon Dioxide 21.5 mmol/L (21.6-31.8); Chloride 94 mmol/L (96-109); Globulin 2.9 d/dL (1.6-3.3); Glucose 85 mg/dL (70-110); Phosphorus 10.4 mg/dL (2.4-5.1); Sodium 138 mmol/L (135-145); Total Bilirubin <0.2 mg/dL (0.3-1.2); Total Protein 5.2 d/dL (6.2-8.2)
[2022-11-09 13:50] LABS: Neutrophils # (M) 18.3816 (2.00-8.90); Neutrophils % (M) 92 %
--- NOTE | 2022-11-09 14:56 | P.PN ---
Subjective Progress Note Date: 11/09/22 42-year-old female, history of hypertension, seizure disorder, chronic kidney disease/dialysis who presents to the emergency department for abdominal pain. Patient states that abdominal pain has been going on for 2-3 days. She receives peritoneal dialysis every 6 hours and was diagnosed with peritonitis 2 days ago by the individual who manages her peritoneal dialysis. She was started on vancomycin and a cephalosporin antibiotic that she cannot recall the name of. She been on antibiotics for 2 days. She puts the medications in her dialysis bags. States that she continues to have abdominal pain despite the antibiotics. Reports that she has not had a bowel movement in 2 days, and prior to that she only had runny stool. Also reports ongoing nausea and vomiting and feels dehydrated. Denies any fevers, chills, sore throat, cough, dyspnea, chest pain, palpitations, abdominal pain, nausea, vomiting, diarrhea, back pain, or headaches. -- Blood work completed reveals a WBC of 8.1, hemoglobin of 8.2, platelet count of 261, sodium 126, potassium 3.4, BUN/creatinine of 52/12.0, consistent with end-stage renal disease, lactic acid levels of 1.5 Computed tomography scan of the abdomen and pelvis obtained revealing a small bowel obstruction. She does also have moderate abdominopelvic ascites and enteritis. Patient admitted to medicine for further management of small bowel obstruction and hyponatremia. Consult placed for general surgery regarding the small bowel obstruction. Consult was also placed for nephrology given that she is a peritoneal dialysis patient. 11/04/2022 the patient is seen and evaluated in room at bedside; patient remains afebrile and is currently breathing comfortably on room air sat complaint of abdominal distention and some discomfort, NG has been placed in by surgery no vomiting has been reported and had denies any diarrhea. Patient did have white count of 8.68, creatinine is 13, repeat peritoneal fluid white count is down to 168, vancomycin and was 9.6 patient presented hospital abdominal pain cloudy peritoneal fluid did have a significant elevated white count in the peritoneal fluid likely secondary to PD catheter associated peritonitis patient did not have any evidence of abdominal infection at the site of insertion of the PD catheter he will need to cover for the gram-positive skin emelina to the likely pathogen underlying gram-negative infection less likely not excluded -patient also have evidence of ileus on the CT may be contributing some of her abdominal pain -patient has received a dose of vancomycin today as the patient vancomycin and was 9.6, the patient will continue with Fortaz with peritoneal dialysis daily, until the cultures are finalized 11/05. Patient seen and examined. States abdominal pain has improved 11/06. Patient seen and examined. Nephrology plan to switch patient to hemodialysis. NG tube in place. Still having abdominal pain 11/07. Patient seen and examined. WBC this morning 13.75, hemoglobin 7, platelet count 305. Patient undergoing hemodialysis today 11/08. Patient seen and examined. Patient underwent status post robotic- assisted laparoscopic lysis of adhesions and removal of peritoneal dialysis catheter for small bowel obstruction, bacterial peritonitis and right ovarian cyst abscess. Currently on clear liquid diet. Abdominal pain has improved 11/09. Patient seen and examined hemoglobin this morning is 6.7, will order 1 unit of packed red blood cell. Diet advanced to regular REVIEW OF SYSTEMS: CONSTITUTIONAL: No fever, no malaise,. CARDIOVASCULAR: No chest pain, no palpitations, no syncope. PULMONARY: No shortness of breath, no cough, GASTROINTESTINAL: As mentioned above NEUROLOGICAL: No headaches, no weakness, PHYSICAL EXAMINATION: GENERAL: The patient is alert and oriented x3, not in any acute distress. Well developed, well nourished. HEENT: Pupils are round and equally reacting to light. EOMI. No scleral icterus. No conjunctival pallor. Normocephalic, atraumatic. No pharyngeal erythema. No thyromegaly. CARDIOVASCULAR: S1 and S2 present. No murmurs, rubs, or gallops. PULMONARY: Chest is clear to auscultation, no wheezing or crackles. ABDOMEN: Soft, nontender, surgical incision seen, drain in place MUSCULOSKELETAL: No joint swelling or deformity. EXTREMITIES: No cyanosis, clubbing, or pedal edema. NEUROLOGICAL: Gross neurological examination did not reveal any focal deficits. SKIN: No rashes. Assessment and plan Small bowel obstruction Abdominal pain PD catheter associated peritonitis -Monitor vital signs status post robotic-assisted laparoscopic lysis of adhesions and removal of peritoneal dialysis catheter for small bowel obstruction, bacterial peritonitis and right ovarian cyst abscess Continue wound care Advance diet per surgery Continue IV Zosyn Will transfuse 1 unit of packed red blood cell GI following ID following End-stage renal disease on peritoneal dialysis , switched to hemodialysis Anemia Hyponatremia; Continue hemodialysis per nephrology Hypokalemia; monitor BMP Hypertension; patient remains on metoprolol 50 mg twice a day along with lisinopril 20 mg twice a day Seizure disorder; patient currently not on anti- seizure medication Anemia; will order 1 unit of packed red blood cell Labs and medication were reviewed.. Continue same treatment. Continue with symptomatic treatment. Resume home medication. Monitor labs and vitals. DVT and GI prophylaxis. Further recommendations as per clinical course of the patient Dictation was produced using [employer] dictation software. please excuse any grammatical, word or spelling errors. Objective - Vital Signs Vital signs: Vital Signs Temp 98.5 F 11/09/22 07:11 Pulse 88 11/09/22 07:11 Resp 18 11/09/22 07:11 BP 168/102 11/09/22 07:11 Pulse Ox 94 L 11/09/22 07:11 FiO2 Intake & Output 11/08/22 11/09/22 11/09/22 18:59 06:59 18:59 Intake Total 200 Output Total 55 20 Balance -55 180 Weight 99 kg 99 kg Intake: Oral 200 Output: Drainage 55 20 Abdomen 55 20 Other: # Voids 0 0 - Labs CBC & Chem 7: 11/09/22 06:47 11/09/22 06:47 Labs: Abnormal Lab Results - Last 24 Hours (Table) 11/07/22 11/09/22 11/09/22 Range/Units 15:10 06:47 06:47 WBC 19.98 H (4.50-10.00) X 10*3/uL RBC 2.03 L (4.10-5.20) X 10*6/uL Hgb 6.8 H* (12.0-15.0) d/dL Hct 22.5 L (37.2-46.3) % MCV 110.8 H (80.0-97.0) FL MCH 33.5 H (27.0-32.0) pg MCHC 30.2 L (32.0-37.0) d/dL RDW 15.9 H (11.5-14.5) % NRBC/100 WBC Diff 0.02 H (0.00-0.01) X 10*3/uL Chloride 94 L (96-109) mmol/L Carbon Dioxide 21.5 L (21.6-31.8) mmol/L Anion Gap 22.50 H (4.00-12.00) mmol/L BUN 73.7 H (9.0-27.0) mg/dL Creatinine 12.9 H* (0.6-1.5) mg/dL Est GFR (CKD-EPI) 3 L (>=60) BUN/Creatinine Ratio 5.71 L (12.00-20.00) Ratio Calcium 8.2 L (8.7-10.3) mg/dL Phosphorus 10.4 H* (2.4-5.1) mg/dL Total Bilirubin <0.2 L (0.3-1.2) mg/dL ALT 6 L (8-44) U/L Total Protein 5.2 L (6.2-8.2) d/dL Albumin 2.3 L (3.8-4.9) d/dL Albumin/Globulin Ratio 0.79 L (1.60-3.17) Ratio Crossmatch See Detail Microbiology - Last 24 Hours (Table) 11/04/22 04:00 Blood Culture - Final Blood 11/07/22 19:43 Gram Stain - Preliminary Catheter Site Tissue Culture - Preliminary 11/07/22 19:43 Catheter Tip Culture - Preliminary Catheter Tip 11/05/22 18:05 Gram Stain - Preliminary Peritoneal Fluid Body Fluid Culture - Preliminary Anaerobic Gm Negative Bacilli 11/05/22 10:15 Gram Stain - Final Peritoneal Fluid Body Fluid Culture - Final 11/05/22 10:15 Anaerobic Culture - Preliminary Peritoneal Fluid Anaerobic Gm Negative Bacilli
--- NOTE | 2022-11-09 16:08 | P.PN ---
Subjective Progress Note Date: 11/09/22 Principal diagnosis: PD catheter associated peritonitis Patient is a 42-year-old female with a past medical history negative for hypertension seizure disorder history of end-stage renal disease on peritoneal dialysis since December 2018 did have 1 previous episode of infection treated with antibiotics patient started having a problem with abdominal pain that started on Saturday is about 4 days before presentation to the hospital, patient has been diagnosed with peritonitis also have CT abdominal pelvis suggestive of ileus.Patient is status post laparoscopic lysis of adhesion removal of dialysis catheter and drainage of the right awaiting cyst abscess on 11/07/2022. on today's evaluation that is 11/09/2022, the patient remains to be afebrile, the patient is breathing comfortably on room air the patient abdominal pain has decreased in intensity and she has been discontinued and patient started complaining liquid diet with the patient has been tolerating denies having any bowel movement Patient did have white count is down to 19.98 also noticed to have a hemoglobin down to 6.8 creatinine is 12.9, abdominal and a catheter cultures pending Objective - Vital Signs Vital signs: Vital Signs Temp 98.5 F 11/09/22 07:11 Pulse 88 11/09/22 07:11 Resp 18 11/09/22 07:11 BP 168/102 11/09/22 07:11 Pulse Ox 94 L 11/09/22 07:11 FiO2 Intake & Output 11/08/22 11/09/22 11/09/22 18:59 06:59 18:59 Intake Total 200 Output Total 55 20 Balance -55 180 Weight 99 kg Intake: Oral 200 Output: Drainage 55 20 Abdomen 55 20 Other: # Voids 0 0 - Exam GENERAL DESCRIPTION: Middle-aged female lying in bed in no distress RESPIRATORY SYSTEM: Unlabored breathing , decreased breath sounds at bases HEART: S1 S2 regular rate and rhythm , ABDOMEN: Soft , mild abdominal distention and tenderness EXTREMITIES: No edema feet - Labs CBC & Chem 7: 11/09/22 06:47 11/09/22 06:47 Labs: Microbiology - Last 24 Hours (Table) 11/07/22 19:43 Gram Stain - Preliminary Catheter Site Tissue Culture - Preliminary 11/07/22 19:43 Catheter Tip Culture - Preliminary Catheter Tip 11/05/22 18:05 Gram Stain - Preliminary Peritoneal Fluid Body Fluid Culture - Preliminary Anaerobic Gm Negative Bacilli 11/05/22 10:15 Gram Stain - Final Peritoneal Fluid Body Fluid Culture - Final 11/05/22 10:15 Anaerobic Culture - Preliminary Peritoneal Fluid Anaerobic Gm Negative Bacilli Assessment and Plan (1) Peritonitis associated with continuous ambulatory peritoneal dialysis Current Visit: Yes Status: Acute Code(s): T80.89XA - OTH COMP FOL INFUSION, TRANSFUSE AND THERAPUTC INJECT, INIT; K65.9 - PERITONITIS, UNSPECIFIED; Z99.2 - DEPENDENCE ON RENAL DIALYSIS SNOMED Code(s): 530160935 Plan: 1patient presented hospital abdominal pain cloudy peritoneal fluid did have a significant elevated white in the peritoneal fluid likely secondary to PD catheter associated peritonitis patient did not have any evidence of abdominal infection at the site of insertion of the PD catheter he will need to cover for the gram-positive skin emelina to the likely pathogen underlying gram-negative infection less likely not excluded 2-patient also have evidence of ileus on the CT may be contributing some of her abdominal pain, patient did have a small bowel follow-through, did show delayed transit of contrast through the bowel with no evidence of small bowel obstruction 3-patient is status post laparoscopic lysis of adhesion removal of the dialysis catheter and drainage of the oriented in abscess abdominal cultures currently pending patient antibiotic was switched to Zosyn because of elevated white count the patient white count is slightly trending down we will continue the patient on Zosyn while waiting for the culture finalized and monitor clinical course closely Dictation was produced using [employer] dictation software. please excuse any grammatical, word or spelling errors. Time with Patient: Less than 30
[2022-11-09] MEDS: HYDROmorphone 0.5 MG/0.5 ML SYRINGE IVP PRN (21:22)
[2022-11-10] MEDS: ACETAMINOPHEN TAB 500 MG TAB PO SCH ×5 (00:04→23:34)
[2022-11-10] MEDS: CYCLOBENZAPRINE 5 MG TAB PO PRN (00:05)
[2022-11-10] MEDS: HYDROmorphone 0.5 MG/0.5 ML SYRINGE IVP PRN (01:31)
[2022-11-10] MEDS: PIPERACILLIN-TAZOBACTAM 3.375 GM in SODIUM CHLORIDE 0.9% 100 ML IVPB SCH ×2 (03:59→16:34)
[2022-11-10] MEDS: LACTATED RINGERS 1,000 ML IV SCH (06:51)
--- NOTE | 2022-11-10 09:34 | P.OP ---
Date of Procedure: 11/07/22 Description of Procedure: SURGEON: DARBY UNGER MD PREOPERATIVE DIAGNOSES: 1. Small bowel obstruction 2. End-stage renal disease, dialysis dependent 3. Peritenon dialysis status 4. Morbid obesity due to excess calories, BMI 36.9 5. Hypertensive heart disease 6. Seizure disorder 7. Pseudotumor cerebri 8. Gout 9. Anemia of chronic disease 10. Focal segmental glomerulosclerosis POSTOPERATIVE DIAGNOSES: 1. Small bowel obstruction due to adhesions 2. End-stage renal disease, dialysis dependent 3. Peritenon dialysis status 4. Morbid obesity due to excess calories, BMI 36.9 5. Hypertensive heart disease 6. Seizure disorder 7. Pseudotumor cerebri 8. Gout 9. Anemia of chronic disease 10. Focal segmental glomerulosclerosis 11. Spontaneous bacterial peritonitis 12. Right ovarian cyst, 4 cm OPERATION: 1. Robotic-assisted da Laura Xi laparoscopic extensive lysis of adhesions over 2.5 hrs 2. Removal of peritoneal dialysis catheter 3. Placement of round 19 drain Justin-Barnard drain, left lower quadrant 4. Abdominal lavage, 3000 L normal saline COMPLICATIONS: None. Anesthesia: GETA, local Estimated Blood Loss (ml): 10 Pathology: Peritoneal fluid, peritoneal dialysis catheter OPERATIVE FINDINGS: 1. Severe adhesive band disease due to spontaneous bacterial peritonitis 2. Diffuse purulent exudate throughout abdomen due to bowel obstruction and bacterial translocation 3. Adhesive band at left lower quadrant peritoneum to small bowel released 4. All small bowel viable 5. Malignant diffuse adhesive disease including total adhesions contributing to bowel obstruction 6. Enlarged right ovarian cyst, 4 cm, simple 7. Peritoneal dialysis catheter entrapment and pelvis and right ovary contribute to obstruction 8. Due to severe adhesive band disease, peritoneal dialysis catheter placement not recommended for future use INDICATIONS: The patient is a 42-year-old female presents with over 1 week history of abdominal pain. She developed spontaneous bacterial peritonitis with her peritoneal dialysis catheter which required removal. Small bowel follow- through performed demonstrates area of obstruction. Surgical intervention with lysis of adhesions, possible bowel resection were described. Informed consent was obtained. Robotic assisted laparoscopic approach was described. Benefits and risks of the procedure including but not limited to bleeding, infection, injury to the small bowel was described. Informed consent was obtained. DESCRIPTION OF PROCEDURE: Patient was brought to the operating room, placed in supine position. After general induction, the abdomen had been prepped and draped in standard sterile fashion. The robotic da Laura XI system was primed. After a timeout protocol was performed, the patient had been prepped and draped in standard sterile fashion. The robot was docked along the left lateral abdomen. The patient was repositioned in Trendelenburg position of 7-degrees. A 5 mm 0 degrees laparoscopic trocar entry was performed along the left upper quadrant. No injury to the bowel, viscera or mesentery was identified. The abdomen was insufflated to 15 mmHg pressure. Initially, the patient became hypercarbic which required decreased insufflation to 12 mmHg pressure. Diagnostic laparoscopy demonstrated severe intra-abdominal adhesions throughout the abdomen including purulent bacterial peritonitis. The entire small bowel was adherent. The peritoneal dialysis catheter was densely embedded into the pelvis. Moderate adherent fibrinous exudate was throughout the abdomen. Next, four trochars were placed including three 8 mm robotic ports were placed along left lateral abdomen. The 5 mm trocar was exchanged for a 12 mm trocar. Please note that the ports were placed at least 9 cm away from the target anatomy. Instruments were interchanged by the family assistant including graspers, vessel sealer, robotic suction ct tech, and scissors with cautery. I had sat at the console. Fibrinous exudate along the abdominal wall and small bowel were removed using graspers. Specimens were obtained. Interloop adhesions were taken down bluntly using graspers. Thick adhesive band at the left lower quadrant involving the peritoneal dialysis catheter and small bowel was divided from the peritoneal abdominal wall. The adhesive then incorporate the omentum small bowel and abdominal wall which was removed. Separate adhesive band of the left lower quadrant from the abdominal wall small bowel was similarly resected. The peritoneal dialysis catheter was adherent to the pelvis involving the right ovary. Extensive lysis of adhesions over 2.5 hours was performed. Carefully the adhesions were taken down without injury to the small bowel using vessel sealer and cautery on scissors. The small bowel was investigated from the cecum, terminal ileum and proximally to the ligament of Treitz. All adhesions were lysed. The small bowel was freed and mobile after completion of lysis of adhesions. No enterotomies occurred. Next, the peritoneal dialysis catheter was cut at the abdominal wall and removed from the abdomen. The fascia was oversewn using #1-V LOC. The abdomen was copiously irrigated with 3 L normal saline until the irrigant was completely clear. The robot was undocked. A round #19 drain, Justin-Barnard was positioned into the pelvis and tacked to the skin using 2-0 nylon. Next, an elliptical 1 cm skin incision at the peritoneal dialysis catheter was made using #10 blade. Bovie cautery was used to release the catheter from the surrounding soft tissue. At the back table, the fibrous portion was excised and sent for anaerobic and aerobic culture. All pneumoperitoneum and instruments were evacuated from the abdominal cavity. The incisions were cleansed using dilute measuring approximately an reapproximated using 4-0 Monocryl in an interrupted subcuticular fashion. Please note along the trocar sites, local anesthetic was placed as a field block prior to insertion of all instruments. Liquid glue was applied to the skin. At the end of the procedure needle, sponge, and instrument count had been verified correct by the nursing surgical services director. The patient was transferred to postanesthesia care unit in stable condition. Intraoperative images including findings were described to the patients family. Future peritoneal dialysis catheter placement is contraindicated due to above findings.
--- NOTE | 2022-11-10 09:46 | P.PN ---
Subjective Progress Note Date: 11/10/22 Principal diagnosis: Small bowel obstruction Patient doing well today. No nausea or vomiting. Apparently last night she did not like the fish that was given to her for food. She would like to eat solid foods today. Morning labs are pending. She is passing flatus. No bowel movement. No nausea or vomiting. Objective - Vital Signs Vital signs: Vital Signs Temp 98.1 F 11/10/22 07:29 Pulse 80 11/10/22 07:29 Resp 16 11/10/22 07:29 BP 173/96 11/10/22 07:29 Pulse Ox 99 11/10/22 07:29 FiO2 Intake & Output 11/09/22 11/10/22 11/10/22 18:59 06:59 18:59 Intake Total 200 585 Output Total 40 800 30 Balance 160 -215 -30 Weight 99 kg 97.5 kg Intake: Oral 200 Blood Product 0 285 Rc Pheresis 2 As3 Unit 0 285 [id number] Hemodialysis 300 Output: Drainage 40 30 Abdomen 40 30 Urine 0 Hemodialysis 800 Other: Voiding Method Toilet # Voids 1 0 # Bowel Movements 1 - Exam Abdomen: Soft, nondistended, minimal incisional tenderness, incisions clean and dry - Labs CBC & Chem 7: 11/09/22 06:47 11/09/22 06:47 Labs: Abnormal Lab Results - Last 24 Hours (Table) 11/07/22 11/09/22 11/09/22 Range/Units 15:10 06:47 06:47 WBC 19.98 H (4.50-10.00) X 10*3/uL RBC 2.03 L (4.10-5.20) X 10*6/uL Hgb 6.8 H* (12.0-15.0) d/dL Hct 22.5 L (37.2-46.3) % MCV 110.8 H (80.0-97.0) FL MCH 33.5 H (27.0-32.0) pg MCHC 30.2 L (32.0-37.0) d/dL RDW 15.9 H (11.5-14.5) % NRBC/100 WBC Diff 0.02 H (0.00-0.01) X 10*3/uL Chloride 94 L (96-109) mmol/L Carbon Dioxide 21.5 L (21.6-31.8) mmol/L Anion Gap 22.50 H (4.00-12.00) mmol/L BUN 73.7 H (9.0-27.0) mg/dL Creatinine 12.9 H* (0.6-1.5) mg/dL Est GFR (CKD-EPI) 3 L (>=60) BUN/Creatinine Ratio 5.71 L (12.00-20.00) Ratio Calcium 8.2 L (8.7-10.3) mg/dL Phosphorus 10.4 H* (2.4-5.1) mg/dL Total Bilirubin <0.2 L (0.3-1.2) mg/dL ALT 6 L (8-44) U/L Total Protein 5.2 L (6.2-8.2) d/dL Albumin 2.3 L (3.8-4.9) d/dL Albumin/Globulin Ratio 0.79 L (1.60-3.17) Ratio Crossmatch See Detail Microbiology - Last 24 Hours (Table) 11/05/22 10:15 Anaerobic Culture - Final Peritoneal Fluid Anaerobic Gm Negative Bacilli 11/04/22 04:00 Blood Culture - Final Blood 11/07/22 19:43 Gram Stain - Preliminary Catheter Site Tissue Culture - Preliminary 11/07/22 19:43 Catheter Tip Culture - Preliminary Catheter Tip 11/05/22 18:05 Gram Stain - Preliminary Peritoneal Fluid Body Fluid Culture - Preliminary Anaerobic Gm Negative Bacilli 11/05/22 10:15 Gram Stain - Final Peritoneal Fluid Body Fluid Culture - Final Assessment and Plan (1) Small bowel obstruction Narrative/Plan: 42-year-old female with small bowel obstruction. Doing well after recent lysis of adhesions. Resume regular diet. Ambulate. Wean oxygen. Possible discharge tomorrow if doing well. Current Visit: Yes Status: Acute Code(s): K56.609 - UNSP INTESTNL OBST, UNSP TO PARTIAL VERSUS COMPLETE OBST SNOMED Code(s): 687637973
[2022-11-10] MEDS: lisinopriL 10 MG TAB PO SCH ×2 (10:07→20:16)
[2022-11-10] MEDS: SEVELAMER 800 MG TAB PO SCH ×3 (10:07→16:44)
[2022-11-10] MEDS: SIMETHICONE 80 MG CHEWABLE PO SCH ×3 (10:08→23:35)
[2022-11-10] MEDS: METOPROLOL TARTRATE 25 MG TAB PO SCH ×2 (10:08→20:16)
[2022-11-10] MEDS: RENAPLEX D PO SCH (10:09)
[2022-11-10] MEDS: DARBEPOETIN ALFA 100MCG/0.5ML SYRINGE SQ SCH (10:09)
[2022-11-10] MEDS: HYDROmorphone 1 MG/ML 1 ML SYRINGE IVP PRN ×3 (10:22→20:15)
--- NOTE | 2022-11-10 12:59 | P.PN ---
Subjective Progress Note Date: 11/10/22 42-year-old female, history of hypertension, seizure disorder, chronic kidney disease/dialysis who presents to the emergency department for abdominal pain. Patient states that abdominal pain has been going on for 2-3 days. She receives peritoneal dialysis every 6 hours and was diagnosed with peritonitis 2 days ago by the individual who manages her peritoneal dialysis. She was started on vancomycin and a cephalosporin antibiotic that she cannot recall the name of. She been on antibiotics for 2 days. She puts the medications in her dialysis bags. States that she continues to have abdominal pain despite the antibiotics. Reports that she has not had a bowel movement in 2 days, and prior to that she only had runny stool. Also reports ongoing nausea and vomiting and feels dehydrated. Denies any fevers, chills, sore throat, cough, dyspnea, chest pain, palpitations, abdominal pain, nausea, vomiting, diarrhea, back pain, or headaches. -- Blood work completed reveals a WBC of 8.1, hemoglobin of 8.2, platelet count of 261, sodium 126, potassium 3.4, BUN/creatinine of 52/12.0, consistent with end-stage renal disease, lactic acid levels of 1.5 Computed tomography scan of the abdomen and pelvis obtained revealing a small bowel obstruction. She does also have moderate abdominopelvic ascites and enteritis. Patient admitted to medicine for further management of small bowel obstruction and hyponatremia. Consult placed for general surgery regarding the small bowel obstruction. Consult was also placed for nephrology given that she is a peritoneal dialysis patient. 11/04/2022 the patient is seen and evaluated in room at bedside; patient remains afebrile and is currently breathing comfortably on room air sat complaint of abdominal distention and some discomfort, NG has been placed in by surgery no vomiting has been reported and had denies any diarrhea. Patient did have white count of 8.68, creatinine is 13, repeat peritoneal fluid white count is down to 168, vancomycin and was 9.6 patient presented hospital abdominal pain cloudy peritoneal fluid did have a significant elevated white count in the peritoneal fluid likely secondary to PD catheter associated peritonitis patient did not have any evidence of abdominal infection at the site of insertion of the PD catheter he will need to cover for the gram-positive skin emelina to the likely pathogen underlying gram-negative infection less likely not excluded -patient also have evidence of ileus on the CT may be contributing some of her abdominal pain -patient has received a dose of vancomycin today as the patient vancomycin and was 9.6, the patient will continue with Fortaz with peritoneal dialysis daily, until the cultures are finalized 11/05. Patient seen and examined. States abdominal pain has improved 11/06. Patient seen and examined. Nephrology plan to switch patient to hemodialysis. NG tube in place. Still having abdominal pain 11/07. Patient seen and examined. WBC this morning 13.75, hemoglobin 7, platelet count 305. Patient undergoing hemodialysis today 11/08. Patient seen and examined. Patient underwent status post robotic- assisted laparoscopic lysis of adhesions and removal of peritoneal dialysis catheter for small bowel obstruction, bacterial peritonitis and right ovarian cyst abscess. Currently on clear liquid diet. Abdominal pain has improved 11/09. Patient seen and examined hemoglobin this morning is 6.7, will order 1 unit of packed red blood cell. Diet advanced to regular 11/10. Patient seen and examined. Denies abdominal pain. Tolerating regular diet REVIEW OF SYSTEMS: CONSTITUTIONAL: No fever, no malaise,. CARDIOVASCULAR: No chest pain, no palpitations, no syncope. PULMONARY: No shortness of breath, no cough, GASTROINTESTINAL: As mentioned above NEUROLOGICAL: No headaches, no weakness, PHYSICAL EXAMINATION: GENERAL: The patient is alert and oriented x3, not in any acute distress. Well developed, well nourished. HEENT: Pupils are round and equally reacting to light. EOMI. No scleral icterus. No conjunctival pallor. Normocephalic, atraumatic. No pharyngeal erythema. No thyromegaly. CARDIOVASCULAR: S1 and S2 present. No murmurs, rubs, or gallops. PULMONARY: Chest is clear to auscultation, no wheezing or crackles. ABDOMEN: Soft, nontender, surgical incision seen, drain in place MUSCULOSKELETAL: No joint swelling or deformity. EXTREMITIES: No cyanosis, clubbing, or pedal edema. NEUROLOGICAL: Gross neurological examination did not reveal any focal deficits. SKIN: No rashes. Assessment and plan Small bowel obstruction Abdominal pain PD catheter associated peritonitis -Monitor vital signs status post robotic-assisted laparoscopic lysis of adhesions and removal of peritoneal dialysis catheter for small bowel obstruction, bacterial peritonitis and right ovarian cyst abscess Continue wound care Continue IV Zosyn Surgery following ID following End-stage renal disease on peritoneal dialysis , switched to hemodialysis Anemia Hyponatremia; Continue hemodialysis per nephrology Hypokalemia; monitor BMP Hypertension; patient remains on metoprolol 50 mg twice a day along with lisinopril 20 mg twice a day Seizure disorder; patient currently not on anti- seizure medication Anemia; will order 1 unit of packed red blood cell Labs and medication were reviewed.. Continue same treatment. Continue with symptomatic treatment. Resume home medication. Monitor labs and vitals. DVT and GI prophylaxis. Further recommendations as per clinical course of the patient Dictation was produced using [employer] dictation software. please excuse any grammatical, word or spelling errors. Objective - Vital Signs Vital signs: Vital Signs Temp 98.1 F 11/10/22 07:29 Pulse 80 11/10/22 07:29 Resp 16 11/10/22 07:29 BP 173/96 11/10/22 07:29 Pulse Ox 99 11/10/22 07:29 FiO2 Intake & Output 11/09/22 11/10/22 11/10/22 18:59 06:59 18:59 Intake Total 200 585 Output Total 40 800 30 Balance 160 -215 -30 Weight 99 kg 97.5 kg Intake: Oral 200 Blood Product 0 285 Rc Pheresis 2 As3 Unit 0 285 [id number] Hemodialysis 300 Output: Drainage 40 30 Abdomen 40 30 Urine 0 Hemodialysis 800 Other: Voiding Method Toilet # Voids 1 0 # Bowel Movements 1 - Labs CBC & Chem 7: 11/09/22 06:47 11/09/22 06:47 Labs: Abnormal Lab Results - Last 24 Hours (Table) 11/07/22 11/09/22 11/09/22 Range/Units 15:10 06:47 06:47 WBC 19.98 H (4.50-10.00) X 10*3/uL RBC 2.03 L (4.10-5.20) X 10*6/uL Hgb 6.8 H* (12.0-15.0) d/dL Hct 22.5 L (37.2-46.3) % MCV 110.8 H (80.0-97.0) FL MCH 33.5 H (27.0-32.0) pg MCHC 30.2 L (32.0-37.0) d/dL RDW 15.9 H (11.5-14.5) % NRBC/100 WBC Diff 0.02 H (0.00-0.01) X 10*3/uL Chloride 94 L (96-109) mmol/L Carbon Dioxide 21.5 L (21.6-31.8) mmol/L Anion Gap 22.50 H (4.00-12.00) mmol/L BUN 73.7 H (9.0-27.0) mg/dL Creatinine 12.9 H* (0.6-1.5) mg/dL Est GFR (CKD-EPI) 3 L (>=60) BUN/Creatinine Ratio 5.71 L (12.00-20.00) Ratio Calcium 8.2 L (8.7-10.3) mg/dL Phosphorus 10.4 H* (2.4-5.1) mg/dL Total Bilirubin <0.2 L (0.3-1.2) mg/dL ALT 6 L (8-44) U/L Total Protein 5.2 L (6.2-8.2) d/dL Albumin 2.3 L (3.8-4.9) d/dL Albumin/Globulin Ratio 0.79 L (1.60-3.17) Ratio Crossmatch See Detail Microbiology - Last 24 Hours (Table) 11/05/22 10:15 Anaerobic Culture - Final Peritoneal Fluid Anaerobic Gm Negative Bacilli 11/04/22 04:00 Blood Culture - Final Blood 11/07/22 19:43 Gram Stain - Preliminary Catheter Site Tissue Culture - Preliminary 11/07/22 19:43 Catheter Tip Culture - Preliminary Catheter Tip 11/05/22 18:05 Gram Stain - Preliminary Peritoneal Fluid Body Fluid Culture - Preliminary Anaerobic Gm Negative Bacilli 11/05/22 10:15 Gram Stain - Final Peritoneal Fluid Body Fluid Culture - Final
--- NOTE | 2022-11-10 13:23 | P.PN ---
Subjective Patient is seen in follow-up for end-stage renal disease. PD catheter removed 11/07/2022. Now on hemodialysis. Tolerating dialysis well. Trying to increase oral intake. Maintained on antibiotics as per ID. Fluid culture final result shows bacte roids. Objective - Vital Signs Vital signs: Vital Signs Temp 98.1 F 11/10/22 07:29 Pulse 80 11/10/22 07:29 Resp 16 11/10/22 07:29 BP 173/96 11/10/22 07:29 Pulse Ox 99 11/10/22 07:29 FiO2 Intake & Output 11/09/22 11/10/22 11/10/22 18:59 06:59 18:59 Intake Total 200 585 Output Total 40 800 30 Balance 160 -215 -30 Weight 99 kg 97.5 kg Intake: Oral 200 Blood Product 0 285 Rc Pheresis 2 As3 Unit 0 285 [id number] Hemodialysis 300 Output: Drainage 40 30 Abdomen 40 30 Urine 0 Hemodialysis 800 Other: Voiding Method Toilet # Voids 1 0 # Bowel Movements 1 - Exam Patient is awake, comfortable, in no acute distress Alert oriented 3 Examination of the heart S1 and S2 Examination of the lungs bilateral breath sounds are heard Abdomen is soft with no significant tenderness Examination of lower extremities shows no significant edema 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 exam grossly intact - Labs CBC & Chem 7: 11/09/22 06:47 11/09/22 06:47 Labs: Abnormal Lab Results - Last 24 Hours (Table) 11/07/22 11/09/22 11/09/22 Range/Units 15:10 06:47 06:47 WBC 19.98 H (4.50-10.00) X 10*3/uL RBC 2.03 L (4.10-5.20) X 10*6/uL Hgb 6.8 H* (12.0-15.0) d/dL Hct 22.5 L (37.2-46.3) % MCV 110.8 H (80.0-97.0) FL MCH 33.5 H (27.0-32.0) pg MCHC 30.2 L (32.0-37.0) d/dL RDW 15.9 H (11.5-14.5) % NRBC/100 WBC Diff 0.02 H (0.00-0.01) X 10*3/uL Chloride 94 L (96-109) mmol/L Carbon Dioxide 21.5 L (21.6-31.8) mmol/L Anion Gap 22.50 H (4.00-12.00) mmol/L BUN 73.7 H (9.0-27.0) mg/dL Creatinine 12.9 H* (0.6-1.5) mg/dL Est GFR (CKD-EPI) 3 L (>=60) BUN/Creatinine Ratio 5.71 L (12.00-20.00) Ratio Calcium 8.2 L (8.7-10.3) mg/dL Phosphorus 10.4 H* (2.4-5.1) mg/dL Total Bilirubin <0.2 L (0.3-1.2) mg/dL ALT 6 L (8-44) U/L Total Protein 5.2 L (6.2-8.2) d/dL Albumin 2.3 L (3.8-4.9) d/dL Albumin/Globulin Ratio 0.79 L (1.60-3.17) Ratio Crossmatch See Detail Microbiology - Last 24 Hours (Table) 11/05/22 10:15 Anaerobic Culture - Final Peritoneal Fluid Anaerobic Gm Negative Bacilli 11/04/22 04:00 Blood Culture - Final Blood 11/07/22 19:43 Gram Stain - Preliminary Catheter Site Tissue Culture - Preliminary 11/07/22 19:43 Catheter Tip Culture - Preliminary Catheter Tip 11/05/22 18:05 Gram Stain - Preliminary Peritoneal Fluid Body Fluid Culture - Preliminary Anaerobic Gm Negative Bacilli 11/05/22 10:15 Gram Stain - Final Peritoneal Fluid Body Fluid Culture - Final Assessment and Plan Assessment: 1. End-stage renal disease on peritoneal dialysis 2. PD peritonitis. Status post removal of PD catheter on 11/07/2022 and currently on hemodialysis via IJ permacath. Patient tolerating her treatment well. Final fluid culture from PD fluid is going back to steroids. Initial culture had shown E. coli as outpatient. 3. Small bowel obstruction status post laparoscopic lysis of adhesions and removal of PD catheter 4. Anemia of chronic disease 5. CK D mineral bone disorder 6. Hypertension, with CK D. Plan: Continue with hemodialysis as outpatient. Antibiotics as per ID.
[2022-11-10] MEDS: metroNIDAZOLE-NS PMX 500 MG in SALINE 1 100ML.BAG IVPB SCH ×2 (18:04→23:34)
[2022-11-11] MEDS: HYDROmorphone 1 MG/ML 1 ML SYRINGE IVP PRN ×3 (02:58→23:06)
[2022-11-11] MEDS: ACETAMINOPHEN TAB 500 MG TAB PO SCH ×4 (06:33→23:07)
[2022-11-11] MEDS: HYDROmorphone 0.5 MG/0.5 ML SYRINGE IVP PRN (06:33)
[2022-11-11] MEDS: LACTATED RINGERS 1,000 ML IV SCH (06:50)
[2022-11-11] MEDS: SIMETHICONE 80 MG CHEWABLE PO SCH ×3 (07:55→21:08)
[2022-11-11] MEDS: METOPROLOL TARTRATE 25 MG TAB PO SCH ×2 (07:55→21:08)
[2022-11-11] MEDS: SEVELAMER 800 MG TAB PO SCH ×3 (07:55→17:07)
[2022-11-11] MEDS: lisinopriL 10 MG TAB PO SCH ×2 (07:55→21:08)
[2022-11-11] MEDS: RENAPLEX D PO SCH (07:56)
[2022-11-11] MEDS: metroNIDAZOLE-NS PMX 500 MG in SALINE 1 100ML.BAG IVPB SCH ×3 (09:13→23:06)
--- NOTE | 2022-11-11 10:01 | P.PN ---
Subjective Progress Note Date: 11/10/22 Principal diagnosis: PD catheter associated peritonitis Patient is a 42-year-old female with a past medical history negative for hypertension seizure disorder history of end-stage renal disease on peritoneal dialysis since December 2018 did have 1 previous episode of infection treated with antibiotics patient started having a problem with abdominal pain that started on Saturday is about 4 days before presentation to the hospital, patient has been diagnosed with peritonitis also have CT abdominal pelvis suggestive of ileus.Patient is status post laparoscopic lysis of adhesion removal of dialysis catheter and drainage of the right awaiting cyst abscess on 11/07/2022. on today's evaluation that is 11/10/2022 patient remains to be afebrile, the patient is breathing comfortably on 3 L nasal cannula oxygen patient denies having any chest pain or shortness of breath or cough patient abdominal pain has decreased in intensity no nausea no vomiting did not have any bowel movement yet. No blood work was done today catheter tip and OR cultures are currently pending Objective - Vital Signs Vital signs: Vital Signs Temp 98.1 F 11/10/22 07:29 Pulse 80 11/10/22 07:29 Resp 16 11/10/22 07:29 BP 173/96 11/10/22 07:29 Pulse Ox 99 11/10/22 07:29 FiO2 Intake & Output 11/09/22 11/10/22 11/10/22 18:59 06:59 18:59 Intake Total 200 585 Output Total 40 800 30 Balance 160 -215 -30 Weight 99 kg 97.5 kg Intake: Oral 200 Blood Product 0 285 Rc Pheresis 2 As3 Unit 0 285 [id number] Hemodialysis 300 Output: Drainage 40 30 Abdomen 40 30 Urine 0 Hemodialysis 800 Other: Voiding Method Toilet # Voids 1 0 # Bowel Movements 1 - Exam GENERAL DESCRIPTION: Middle-aged female lying in bed in no distress RESPIRATORY SYSTEM: Unlabored breathing , decreased breath sounds at bases HEART: S1 S2 regular rate and rhythm , ABDOMEN: Soft , mild abdominal distention and tenderness EXTREMITIES: No edema feet - Labs CBC & Chem 7: 11/09/22 06:47 11/09/22 06:47 Labs: Abnormal Lab Results - Last 24 Hours (Table) 11/07/22 11/09/22 11/09/22 Range/Units 15:10 06:47 06:47 WBC 19.98 H (4.50-10.00) X 10*3/uL RBC 2.03 L (4.10-5.20) X 10*6/uL Hgb 6.8 H* (12.0-15.0) d/dL Hct 22.5 L (37.2-46.3) % MCV 110.8 H (80.0-97.0) FL MCH 33.5 H (27.0-32.0) pg MCHC 30.2 L (32.0-37.0) d/dL RDW 15.9 H (11.5-14.5) % NRBC/100 WBC Diff 0.02 H (0.00-0.01) X 10*3/uL Chloride 94 L (96-109) mmol/L Carbon Dioxide 21.5 L (21.6-31.8) mmol/L Anion Gap 22.50 H (4.00-12.00) mmol/L BUN 73.7 H (9.0-27.0) mg/dL Creatinine 12.9 H* (0.6-1.5) mg/dL Est GFR (CKD-EPI) 3 L (>=60) BUN/Creatinine Ratio 5.71 L (12.00-20.00) Ratio Calcium 8.2 L (8.7-10.3) mg/dL Phosphorus 10.4 H* (2.4-5.1) mg/dL Total Bilirubin <0.2 L (0.3-1.2) mg/dL ALT 6 L (8-44) U/L Total Protein 5.2 L (6.2-8.2) d/dL Albumin 2.3 L (3.8-4.9) d/dL Albumin/Globulin Ratio 0.79 L (1.60-3.17) Ratio Crossmatch See Detail Microbiology - Last 24 Hours (Table) 11/05/22 10:15 Anaerobic Culture - Final Peritoneal Fluid Anaerobic Gm Negative Bacilli 11/04/22 04:00 Blood Culture - Final Blood 11/07/22 19:43 Gram Stain - Preliminary Catheter Site Tissue Culture - Preliminary 11/07/22 19:43 Catheter Tip Culture - Preliminary Catheter Tip 11/05/22 18:05 Gram Stain - Preliminary Peritoneal Fluid Body Fluid Culture - Preliminary Anaerobic Gm Negative Bacilli 11/05/22 10:15 Gram Stain - Final Peritoneal Fluid Body Fluid Culture - Final Assessment and Plan (1) Peritonitis associated with continuous ambulatory peritoneal dialysis Current Visit: Yes Status: Acute Code(s): T80.89XA - OTH COMP FOL INFUSION, TRANSFUSE AND THERAPUTC INJECT, INIT; K65.9 - PERITONITIS, UNSPECIFIED; Z99.2 - DEPENDENCE ON RENAL DIALYSIS SNOMED Code(s): 077691908 Plan: 1patient presented hospital abdominal pain cloudy peritoneal fluid did have a significant elevated white in the peritoneal fluid likely secondary to PD catheter associated peritonitis patient did not have any evidence of abdominal infection at the site of insertion of the PD catheter he will need to cover for the gram-positive skin emelina to the likely pathogen underlying gram-negative infection less likely not excluded 2-patient also have evidence of ileus on the CT may be contributing some of her abdominal pain, patient did have a small bowel follow-through, did show delayed transit of contrast through the bowel with no evidence of small bowel obstruction 3-patient is status post laparoscopic lysis of adhesion removal of the dialysis catheter and drainage of the abscess abdominal cultures currently pending . 4we will discontinue Zosyn and switch antibiotic therapy to Rocephin 2 g daily and IV Flagyl we will repeat a CBC and CRP with a.m. lab Dictation was produced using [employer] dictation software. please excuse any grammatical, word or spelling errors. Time with Patient: Less than 30
--- NOTE | 2022-11-11 11:29 | P.PN ---
Subjective Progress Note Date: 11/11/22 Principal diagnosis: Small bowel obstruction Patient feels well today. No nausea or vomiting. Tolerating diet. She is having bowel movements now. Last CBC 11/09. She is afebrile. Objective - Vital Signs Vital signs: Vital Signs Temp 97.4 F L 11/11/22 07:25 Pulse 79 11/11/22 07:25 Resp 16 11/11/22 07:25 BP 165/97 11/11/22 07:25 Pulse Ox 95 11/11/22 07:25 FiO2 Intake & Output 11/10/22 11/11/22 11/11/22 18:59 06:59 18:59 Intake Total 100 Output Total 45 20 Balance 55 -20 Weight 98 kg Intake: Intake, IV Titration 100 Amount Piperacillin-Tazobactam 3 100 .375 gm In Sodium Chloride 0.9% 100 ml @ 25 mls/hr IVPB Q12H [facility] Rx# :[id number] Output: Drainage 45 20 Abdomen 45 20 Urine 0 Stool 0 Other: Voiding Method Toilet # Voids 3 # Bowel Movements 1 - Exam Abdomen: Soft, nondistended, nontender, incisions clean and dry, FRANCESCA serosanguineous - Labs CBC & Chem 7: 11/09/22 06:47 11/09/22 06:47 Labs: Microbiology - Last 24 Hours (Table) 11/07/22 19:43 Gram Stain - Preliminary Catheter Site Tissue Culture - Preliminary 11/07/22 19:43 Catheter Tip Culture - Final Catheter Tip 11/05/22 18:05 Gram Stain - Final Peritoneal Fluid Body Fluid Culture - Final Bacteroides thetaiotaomicron Assessment and Plan (1) Small bowel obstruction Narrative/Plan: Patient doing slightly better. Antibiotics were changed yesterday. Repeat CBC tomorrow. Continue diet. Current Visit: Yes Status: Acute Code(s): K56.609 - UNSP INTESTNL OBST, UNSP TO PARTIAL VERSUS COMPLETE OBST SNOMED Code(s): 211398443
[2022-11-11 11:45] LABS: Basophils # (A) 0.09 X 10*3/uL (0.00-0.10); Basophils % (A) 0.3 %; Eosinophils # (A) 0.32 X 10*3/uL (0.04-0.35); Eosinophils % (A) 1.1 %; HCT 23.9 % (37.2-46.3); HGB 7.3 d/dL (12.0-15.0); Lymphocytes # (A) 1.54 X 10*3/uL (0.90-5.00); Lymphocytes % (A) 5.3 %; MCH 32.3 pg (27.0-32.0); MCHC 30.5 d/dL (32.0-37.0); MCV 105.8 FL (80.0-97.0); Mean Platelet Volume 10.5 FL (9.5-12.2); Monocytes # (A) 1.15 X 10*3/uL (0.20-1.00); NRBC Per 100 WBC 0 X 10*3/uL (0.00-0.01); Neutrophils # (A) 24.82 X 10*3/uL (1.80-7.70); Neutrophils % (A) 85.8 %; Platelet Count 282 X 10*3/uL (140-440); RBC 2.26 X 10*6/uL (4.10-5.20); RBC Morphology Normal (Normal); RDW 18.1 % (11.5-14.5); WBC 28.92 X 10*3/uL (4.50-10.00)
--- NOTE | 2022-11-11 11:52 | P.PN ---
Subjective Patient is seen in follow-up for end-stage renal disease. PD catheter removed 11/07/2022. Now on hemodialysis. Tolerating dialysis well. Trying to increase oral intake. Maintained on antibiotics as per ID. Fluid culture final result shows bacte roids. Objective - Vital Signs Vital signs: Vital Signs Temp 97.4 F L 11/11/22 07:25 Pulse 79 11/11/22 07:25 Resp 16 11/11/22 07:25 BP 165/97 11/11/22 07:25 Pulse Ox 95 11/11/22 07:25 FiO2 Intake & Output 11/10/22 11/11/22 11/11/22 18:59 06:59 18:59 Intake Total 100 Output Total 45 20 Balance 55 -20 Weight 98 kg Intake: Intake, IV Titration 100 Amount Piperacillin-Tazobactam 3 100 .375 gm In Sodium Chloride 0.9% 100 ml @ 25 mls/hr IVPB Q12H [facility] Rx# :[id number] Output: Drainage 45 20 Abdomen 45 20 Urine 0 Stool 0 Other: Voiding Method Toilet # Voids 3 # Bowel Movements 1 - Exam Patient is awake, comfortable, in no acute distress Alert oriented 3 Examination of the heart S1 and S2 Examination of the lungs bilateral breath sounds are heard Abdomen is soft with no significant tenderness Examination of lower extremities shows no significant edema 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 exam grossly intact - Labs CBC & Chem 7: 11/11/22 05:56 11/09/22 06:47 Labs: Abnormal Lab Results - Last 24 Hours (Table) 11/11/22 11/11/22 Range/Units 05:56 05:56 WBC 28.92 H (4.50-10.00) X 10*3/uL RBC 2.26 L (4.10-5.20) X 10*6/uL Hgb 7.3 L (12.0-15.0) d/dL Hct 23.9 L (37.2-46.3) % MCV 105.8 H (80.0-97.0) FL MCH 32.3 H (27.0-32.0) pg MCHC 30.5 L (32.0-37.0) d/dL RDW 18.1 H (11.5-14.5) % Neutrophils # 24.82 H (1.80-7.70) X 10*3/uL Monocytes # 1.15 H (0.20-1.00) X 10*3/uL C-Reactive Protein 26.10 H (0.00-0.80) mg/dL Microbiology - Last 24 Hours (Table) 11/07/22 19:43 Gram Stain - Preliminary Catheter Site Tissue Culture - Preliminary 11/07/22 19:43 Catheter Tip Culture - Final Catheter Tip 11/05/22 18:05 Gram Stain - Final Peritoneal Fluid Body Fluid Culture - Final Bacteroides thetaiotaomicron Assessment and Plan Assessment: 1. End-stage renal disease on peritoneal dialysis 2. PD peritonitis. Status post removal of PD catheter on 11/07/2022 and currently on hemodialysis via IJ permacath. Patient tolerating her treatment well. Final fluid culture from PD fluid is going back to steroids. Initial culture had shown E. coli as outpatient. 3. Small bowel obstruction status post laparoscopic lysis of adhesions and removal of PD catheter 4. Anemia of chronic disease 5. CK D mineral bone disorder 6. Hypertension, with CK D. Plan: Hemodialysis in a.m. Antibiotics as per ID.
[2022-11-11 12:20] LABS: ALT 5 U/L (8-44); AST 15 U/L (13-35); Albumin 2.4 d/dL (3.8-4.9); Albumin/Globulin Ratio 0.89 Ratio (1.60-3.17); Alkaline Phosphatase 65 U/L (41-126); BUN/Creat Ratio 5.82 Ratio (12.00-20.00); Blood Urea Nitrogen 64.6 mg/dL (9.0-27.0); Calcium 8.3 mg/dL (8.7-10.3); Carbon Dioxide 22.2 mmol/L (21.6-31.8); Chloride 96 mmol/L (96-109); Globulin 2.7 d/dL (1.6-3.3); Glucose 81 mg/dL (70-110); Potassium 4.3 mmol/L (3.5-5.5); Sodium 138 mmol/L (135-145); Total Bilirubin <0.2 mg/dL (0.3-1.2); Total Protein 5.1 d/dL (6.2-8.2)
--- NOTE | 2022-11-11 12:55 | P.PN ---
Subjective Progress Note Date: 11/11/22 42-year-old female, history of hypertension, seizure disorder, chronic kidney disease/dialysis who presents to the emergency department for abdominal pain. Patient states that abdominal pain has been going on for 2-3 days. She receives peritoneal dialysis every 6 hours and was diagnosed with peritonitis 2 days ago by the individual who manages her peritoneal dialysis. She was started on vancomycin and a cephalosporin antibiotic that she cannot recall the name of. She been on antibiotics for 2 days. She puts the medications in her dialysis bags. States that she continues to have abdominal pain despite the antibiotics. Reports that she has not had a bowel movement in 2 days, and prior to that she only had runny stool. Also reports ongoing nausea and vomiting and feels dehydrated. Denies any fevers, chills, sore throat, cough, dyspnea, chest pain, palpitations, abdominal pain, nausea, vomiting, diarrhea, back pain, or headaches. -- Blood work completed reveals a WBC of 8.1, hemoglobin of 8.2, platelet count of 261, sodium 126, potassium 3.4, BUN/creatinine of 52/12.0, consistent with end-stage renal disease, lactic acid levels of 1.5 Computed tomography scan of the abdomen and pelvis obtained revealing a small bowel obstruction. She does also have moderate abdominopelvic ascites and enteritis. Patient admitted to medicine for further management of small bowel obstruction and hyponatremia. Consult placed for general surgery regarding the small bowel obstruction. Consult was also placed for nephrology given that she is a peritoneal dialysis patient. 11/04/2022 the patient is seen and evaluated in room at bedside; patient remains afebrile and is currently breathing comfortably on room air sat complaint of abdominal distention and some discomfort, NG has been placed in by surgery no vomiting has been reported and had denies any diarrhea. Patient did have white count of 8.68, creatinine is 13, repeat peritoneal fluid white count is down to 168, vancomycin and was 9.6 patient presented hospital abdominal pain cloudy peritoneal fluid did have a significant elevated white count in the peritoneal fluid likely secondary to PD catheter associated peritonitis patient did not have any evidence of abdominal infection at the site of insertion of the PD catheter he will need to cover for the gram-positive skin emelina to the likely pathogen underlying gram-negative infection less likely not excluded -patient also have evidence of ileus on the CT may be contributing some of her abdominal pain -patient has received a dose of vancomycin today as the patient vancomycin and was 9.6, the patient will continue with Fortaz with peritoneal dialysis daily, until the cultures are finalized 11/05. Patient seen and examined. States abdominal pain has improved 11/06. Patient seen and examined. Nephrology plan to switch patient to hemodialysis. NG tube in place. Still having abdominal pain 11/07. Patient seen and examined. WBC this morning 13.75, hemoglobin 7, platelet count 305. Patient undergoing hemodialysis today 11/08. Patient seen and examined. Patient underwent status post robotic- assisted laparoscopic lysis of adhesions and removal of peritoneal dialysis catheter for small bowel obstruction, bacterial peritonitis and right ovarian cyst abscess. Currently on clear liquid diet. Abdominal pain has improved 11/09. Patient seen and examined hemoglobin this morning is 6.7, will order 1 unit of packed red blood cell. Diet advanced to regular 11/10. Patient seen and examined. Denies abdominal pain. Tolerating regular diet 11/11. Patient seen and examined. ID waiting on catheter tip and OR cultures REVIEW OF SYSTEMS: CONSTITUTIONAL: No fever, no malaise,. CARDIOVASCULAR: No chest pain, no palpitations, no syncope. PULMONARY: No shortness of breath, no cough, GASTROINTESTINAL: As mentioned above NEUROLOGICAL: No headaches, no weakness, PHYSICAL EXAMINATION: GENERAL: The patient is alert and oriented x3, not in any acute distress. Well developed, well nourished. HEENT: Pupils are round and equally reacting to light. EOMI. No scleral icterus. No conjunctival pallor. Normocephalic, atraumatic. No pharyngeal erythema. No thyromegaly. CARDIOVASCULAR: S1 and S2 present. No murmurs, rubs, or gallops. PULMONARY: Chest is clear to auscultation, no wheezing or crackles. ABDOMEN: Soft, nontender, surgical incision seen, drain in place MUSCULOSKELETAL: No joint swelling or deformity. EXTREMITIES: No cyanosis, clubbing, or pedal edema. NEUROLOGICAL: Gross neurological examination did not reveal any focal deficits. SKIN: No rashes. Assessment and plan Small bowel obstruction Abdominal pain PD catheter associated peritonitis -Monitor vital signs status post robotic-assisted laparoscopic lysis of adhesions and removal of peritoneal dialysis catheter for small bowel obstruction, bacterial peritonitis and right ovarian cyst abscess ID waiting on catheter tip and OR cultures Continue wound care Antibiotics changed to IV Rocephin and Flagyl Surgery following ID following End-stage renal disease on peritoneal dialysis , switched to hemodialysis Anemia Hypokalemia; Hyponatremia; Continue hemodialysis per nephrology Hypertension; patient remains on metoprolol 50 mg twice a day along with lisino pril 20 mg twice a day Seizure disorder; patient currently not on anti- seizure medication Anemia; monitor CBC Labs and medication were reviewed.. Continue same treatment. Continue with symptomatic treatment. Resume home medication. Monitor labs and vitals. DVT and GI prophylaxis. Further recommendations as per clinical course of the patient Dictation was produced using [employer] dictation software. please excuse any grammatical, word or spelling errors. Objective - Vital Signs Vital signs: Vital Signs Temp 97.4 F L 11/11/22 07:25 Pulse 79 11/11/22 07:25 Resp 16 11/11/22 07:25 BP 165/97 11/11/22 07:25 Pulse Ox 95 11/11/22 07:25 FiO2 Intake & Output 11/10/22 11/11/22 11/11/22 18:59 06:59 18:59 Intake Total 100 Output Total 45 20 Balance 55 -20 Weight 98 kg Intake: Intake, IV Titration 100 Amount Piperacillin-Tazobactam 3 100 .375 gm In Sodium Chloride 0.9% 100 ml @ 25 mls/hr IVPB Q12H [facility] Rx# :[id number] Output: Drainage 45 20 Abdomen 45 20 Urine 0 Stool 0 Other: Voiding Method Toilet # Voids 3 # Bowel Movements 1 - Labs CBC & Chem 7: 11/09/22 06:47 11/09/22 06:47 Labs: Microbiology - Last 24 Hours (Table) 11/07/22 19:43 Gram Stain - Preliminary Catheter Site Tissue Culture - Preliminary 11/07/22 19:43 Catheter Tip Culture - Final Catheter Tip 11/05/22 18:05 Gram Stain - Final Peritoneal Fluid Body Fluid Culture - Final Bacteroides thetaiotaomicron
[2022-11-11] MEDS: IOPAMIDOL CONTRAST (ORAL USE) VIAL PO PRN ×2 (16:02→17:07)
--- NOTE | 2022-11-11 16:26 | P.PN ---
Subjective Progress Note Date: 11/11/22 Principal diagnosis: PD catheter associated peritonitis Patient is a 42-year-old female with a past medical history negative for hypertension seizure disorder history of end-stage renal disease on peritoneal dialysis since December 2018 did have 1 previous episode of infection treated with antibiotics patient started having a problem with abdominal pain that started on Saturday is about 4 days before presentation to the hospital, patient has been diagnosed with peritonitis also have CT abdominal pelvis suggestive of ileus.Patient is status post laparoscopic lysis of adhesion removal of dialysis catheter and drainage of the abscess on 11/07/2022. on today's evaluation that is 11/11/2022 patient continues to be afebrile, the patient is breathing comfortably on room air, patient denies having any chest pain or shortness of breath or cough , the patient abdominal pain has decreased in intensity no nausea no vomiting patient did have a small bowel movement today Patient white count is up to 20,000 today, hemoglobin is 7.3 creatinine is 11.1, CRP is down to 26 Objective - Vital Signs Vital signs: Vital Signs Temp 97.4 F L 11/11/22 07:25 Pulse 79 11/11/22 07:25 Resp 16 11/11/22 07:25 BP 165/97 11/11/22 07:25 Pulse Ox 95 11/11/22 07:25 FiO2 Intake & Output 11/10/22 11/11/22 11/11/22 18:59 06:59 18:59 Intake Total 100 150 Output Total 45 20 Balance 55 -20 150 Weight 98 kg Intake: Intake, IV Titration 100 150 Amount Piperacillin-Tazobactam 3 100 .375 gm In Sodium Chloride 0.9% 100 ml @ 25 mls/hr IVPB Q12H [facility] Rx# :[id number] cefTRIAXone 2 gm In 50 Sodium Chloride 0.9% 50 ml @ 100 mls/hr IVPB Q24HR [facility] Rx#:[id number] metroNIDAZOLE-NS PMX 500 100 mg In Saline 1 100ml.bag @ 100 mls/hr IVPB Q8HR [facility] Rx#:[id number] Output: Drainage 45 20 Abdomen 45 20 Urine 0 Stool 0 Other: Voiding Method Toilet # Voids 3 # Bowel Movements 1 - Exam GENERAL DESCRIPTION: Middle-aged female lying in bed in no distress RESPIRATORY SYSTEM: Unlabored breathing , decreased breath sounds at bases HEART: S1 S2 regular rate and rhythm , ABDOMEN: Soft , mild abdominal distention and left upper abdominal tenderness EXTREMITIES: No edema feet - Labs CBC & Chem 7: 11/11/22 05:56 11/11/22 05:56 Labs: Abnormal Lab Results - Last 24 Hours (Table) 11/11/22 11/11/22 Range/Units 05:56 05:56 WBC 28.92 H (4.50-10.00) X 10*3/uL RBC 2.26 L (4.10-5.20) X 10*6/uL Hgb 7.3 L (12.0-15.0) d/dL Hct 23.9 L (37.2-46.3) % MCV 105.8 H (80.0-97.0) FL MCH 32.3 H (27.0-32.0) pg MCHC 30.5 L (32.0-37.0) d/dL RDW 18.1 H (11.5-14.5) % Neutrophils # 24.82 H (1.80-7.70) X 10*3/uL Monocytes # 1.15 H (0.20-1.00) X 10*3/uL Anion Gap 19.80 H (4.00-12.00) mmol/L BUN 64.6 H (9.0-27.0) mg/dL Creatinine 11.1 H* (0.6-1.5) mg/dL Est GFR (CKD-EPI) 4 L (>=60) BUN/Creatinine Ratio 5.82 L (12.00-20.00) Ratio Calcium 8.3 L (8.7-10.3) mg/dL Total Bilirubin <0.2 L (0.3-1.2) mg/dL ALT 5 L (8-44) U/L C-Reactive Protein 26.10 H (0.00-0.80) mg/dL Total Protein 5.1 L (6.2-8.2) d/dL Albumin 2.4 L (3.8-4.9) d/dL Albumin/Globulin Ratio 0.89 L (1.60-3.17) Ratio Microbiology - Last 24 Hours (Table) 11/07/22 19:43 Gram Stain - Preliminary Catheter Site Tissue Culture - Preliminary 11/07/22 19:43 Catheter Tip Culture - Final Catheter Tip 11/05/22 18:05 Gram Stain - Final Peritoneal Fluid Body Fluid Culture - Final Bacteroides thetaiotaomicron Assessment and Plan (1) Peritonitis associated with continuous ambulatory peritoneal dialysis Current Visit: Yes Status: Acute Code(s): T80.89XA - OTH COMP FOL INFUSION, TRANSFUSE AND THERAPUTC INJECT, INIT; K65.9 - PERITONITIS, UNSPECIFIED; Z99.2 - DEPENDENCE ON RENAL DIALYSIS SNOMED Code(s): 868965499 Plan: 1patient presented hospital abdominal pain cloudy peritoneal fluid did have a significant elevated white in the peritoneal fluid likely secondary to PD catheter associated peritonitis patient did not have any evidence of abdominal infection at the site of insertion of the PD catheter patient also have evidence of ileus on the CT may be contributing some of her abdominal pain, patient did have a small bowel follow-through, did show delayed transit of contrast through the bowel with no evidence of small bowel obstruction 2-patient is status post laparoscopic lysis of adhesion removal of the dialysis catheter and drainage of the abscess abdominal cultures currently pending . 3patient noticed to have worsening of her white count and the patient was noticed to have more abdominal tenderness even go ahead and check a CT of abdominal pelvis with contrast if okay with nephrology, continue with Rocephin and Flagyl on the basis of previous culture multiple family member at the bedside their questions concerned were answered Dictation was produced using [employer] dictation software. please excuse any grammatical, word or spelling errors. Time with Patient: Less than 30
--- NOTE | 2022-11-11 18:18 | CT ---
EXAMINATION TYPE: CT abdomen pelvis w con DATE OF EXAM: 11/11/2022 COMPARISON: [id number] HISTORY: abdominal pain CT DLP: 1787 mGycm CONTRAST: CT scan of the abdomen and pelvis is performed with Oral Contrast and with IV Contrast, patient injec tami with 80cc mL of Isovue 300. FINDINGS: LUNG BASES-: No visible nodule. No infiltrate. Bibasilar pleural effusions and compressive atelectas is. LIVER/GB: There is gallbladder hydrops noted measuring nearly 12 cm. Hyperdense debris within the gal lbladder lumen may reflect sloughed mucosa or sludge material. There is evidence of hepatomegaly. No space occupying hepatic lesion. Biliary tree is of normal caliber. PANCREAS: No inflammation. No distinct mass. SPLEEN: No splenic enlargement. No lesion seen. ADRENALS: No nodule. No thickening. KIDNEYS/BLADDER: Renal atrophic changes noted bilaterally. No hydronephrosis. No nephrolithiasis. No distinct renal mass. Urinary bladder grossly unremarkable. BOWEL: Dilated proximal small bowel measuring up to 3.8 cm with wall thickening seen. Contrast does r each the colon. The findings could reflect ileus with underlying enteritis. GENITAL ORGANS: No gross abnormality. LYMPH NODES: No greater than 1cm abdominal or pelvic lymph nodes are appreciated. AORTA: No significant abnormality. OSSEOUS STRUCTURES: No significant abnormality is seen. OTHER: Ascites with intraperitoneal dialysis catheter. IMPRESSION: 1. No evidence for obstruction at this time. There is mild proximal small bowel dilatation with scatt ered small bowel wall thickening which may reflect enteritis. 2. Moderate abdominopelvic ascites with intraperitoneal dialysis catheter as well as basilar pleural effusions and atelectasis. 3. Gallbladder hydrops with high density material noted which could reflect submucosal or sludge. Gal lstone noncalcified is also an additional consideration.
[2022-11-12] MEDS ORDERED: LACTATED RINGERS 1,000 ML IV ONE (01:22)
[2022-11-12] MEDS ORDERED: SODIUM CHLORIDE 0.9% 1,000 ML IV ONE (01:22)
[2022-11-12] MEDS: LACTATED RINGERS 1,000 ML IV SCH (04:37)
[2022-11-12] MEDS: ACETAMINOPHEN TAB 500 MG TAB PO SCH ×3 (06:37→16:44)
[2022-11-12] MEDS: SEVELAMER 800 MG TAB PO SCH ×3 (06:37→16:44)
[2022-11-12] MEDS: SIMETHICONE 80 MG CHEWABLE PO SCH ×2 (07:39→14:32)
[2022-11-12] MEDS: RENAPLEX D PO SCH (07:40)
[2022-11-12] MEDS: lisinopriL 10 MG TAB PO SCH (07:40)
[2022-11-12] MEDS: METOPROLOL TARTRATE 25 MG TAB PO SCH (07:40)
[2022-11-12] MEDS: metroNIDAZOLE-NS PMX 500 MG in SALINE 1 100ML.BAG IVPB SCH ×2 (07:41→16:59)
[2022-11-12 08:22] LABS: Basophils % (A) 0.3 %; Eosinophils # (A) 0.28 X 10*3/uL (0.04-0.35); Eosinophils % (A) 0.9 %; HCT 23.3 % (37.2-46.3); HGB 7.3 d/dL (12.0-15.0); Lymphocytes # (A) 1.31 X 10*3/uL (0.90-5.00); Lymphocytes % (A) 4.3 %; MCH 33.5 pg (27.0-32.0); MCHC 31.3 d/dL (32.0-37.0); MCV 106.9 FL (80.0-97.0); Mean Platelet Volume 10.5 FL (9.5-12.2); Monocytes # (A) 1.14 X 10*3/uL (0.20-1.00); Monocytes % (A) 3.7 %; NRBC Per 100 WBC 0 X 10*3/uL (0.00-0.01); Neutrophils # (A) 26.43 X 10*3/uL (1.80-7.70); Neutrophils % (A) 86.8 %; Platelet Count 296 X 10*3/uL (140-440); RBC 2.18 X 10*6/uL (4.10-5.20); WBC 30.47 X 10*3/uL (4.50-10.00)
[2022-11-12 09:24] LABS: BUN/Creat Ratio 5.78 Ratio (12.00-20.00); Blood Urea Nitrogen 74.6 mg/dL (9.0-27.0); Calcium 8.3 mg/dL (8.7-10.3); Carbon Dioxide 19.2 mmol/L (21.6-31.8); Chloride 93 mmol/L (96-109); Glucose 71 mg/dL (70-110); Potassium 4.4 mmol/L (3.5-5.5); Sodium 134 mmol/L (135-145)
[2022-11-12] MEDS: PIPERACILLIN-TAZOBACTAM 3.375 GM in SODIUM CHLORIDE 0.9% 100 ML IVPB SCH (11:23)
--- NOTE | 2022-11-12 12:44 | P.PN ---
Subjective Patient is seen in follow-up for end-stage renal disease. PD catheter removed 11/07/2022. Now on hemodialysis. Tolerating dialysis well. Trying to increase oral intake. Maintained on antibiotics as per ID. Fluid culture final result shows bacte roids. Computed tomography scan still shows the PD catheter. Or note from 11/07/2022 states that the PD catheter was removed. WBC count is increasing and at 30.47 today. Discussed with ID Objective - Vital Signs Vital signs: Vital Signs Temp 98.0 F 11/12/22 08:00 Pulse 79 11/12/22 08:00 Resp 20 11/12/22 08:00 BP 186/106 11/12/22 08:00 Pulse Ox 96 11/12/22 08:44 FiO2 Intake & Output 11/11/22 11/12/22 11/12/22 18:59 06:59 18:59 Intake Total 150 Output Total 20 Balance 150 -20 Weight 99 kg Intake: Intake, IV Titration 150 Amount cefTRIAXone 2 gm In 50 Sodium Chloride 0.9% 50 ml @ 100 mls/hr IVPB Q24HR VANESSA Rx#:[id number] metroNIDAZOLE-NS PMX 500 100 mg In Saline 1 100ml.bag @ 100 mls/hr IVPB Q8HR VANESSA Rx#:[id number] Output: Drainage 20 Abdomen 20 Other: Voiding Method Toilet Toilet # Voids 1 0 # Bowel Movements 0 - Exam Patient is awake, comfortable, in no acute distress Alert oriented 3 Examination of the heart S1 and S2 Examination of the lungs bilateral breath sounds are heard Abdomen is soft with no significant tenderness Examination of lower extremities shows no significant edema 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00) mmol/L BUN 74.6 H (9.0-27.0) mg/dL Creatinine 12.9 H* (0.6-1.5) mg/dL Est GFR (CKD-EPI) 3 L (>=60) BUN/Creatinine Ratio 5.78 L (12.00-20.00) Ratio Calcium 8.3 L (8.7-10.3) mg/dL Microbiology - Last 24 Hours (Table) 11/07/22 19:43 Gram Stain - Final Catheter Site Tissue Culture - Final 11/07/22 19:43 Anaerobic Culture - Preliminary Catheter Site Anaerobic Gm Negative Bacilli Assessment and Plan Assessment: 1. End-stage renal disease on peritoneal dialysis 2. PD peritonitis. Status post removal of PD catheter on 11/07/2022 and currently on hemodialysis via IJ permacath. Patient tolerating her treatment well. Final fluid culture from PD fluid is going back to steroids. Initial culture had shown E. coli as outpatient. Computed tomography scan shows PD catheter still in abdomen. Will discuss with surgery. 3. Small bowel obstruction status post laparoscopic lysis of adhesions and removal of PD catheter 4. Anemia of chronic disease 5. CK D mineral bone disorder 6. Hypertension, with CK D. Plan: Hemodialysis today Antibiotics as per ID. Discuss with surgery regarding PD catheter. Or note on 11/07/2022 states that it was removed however CAT scan still shows the catheter in the abdomen.
[2022-11-12] MEDS: HYDROmorphone 1 MG/ML 1 ML SYRINGE IVP PRN ×3 (12:51→22:38)
--- NOTE | 2022-11-12 13:52 | P.PN ---
Subjective Progress Note Date: 11/12/22 42-year-old female, history of hypertension, seizure disorder, chronic kidney disease/dialysis who presents to the emergency department for abdominal pain. Patient states that abdominal pain has been going on for 2-3 days. She receives peritoneal dialysis every 6 hours and was diagnosed with peritonitis 2 days ago by the individual who manages her peritoneal dialysis. She was started on vancomycin and a cephalosporin antibiotic that she cannot recall the name of. She been on antibiotics for 2 days. She puts the medications in her dialysis bags. States that she continues to have abdominal pain despite the antibiotics. Reports that she has not had a bowel movement in 2 days, and prior to that she only had runny stool. Also reports ongoing nausea and vomiting and feels dehydrated. Denies any fevers, chills, sore throat, cough, dyspnea, chest pain, palpitations, abdominal pain, nausea, vomiting, diarrhea, back pain, or headaches. -- Blood work completed reveals a WBC of 8.1, hemoglobin of 8.2, platelet count of 261, sodium 126, potassium 3.4, BUN/creatinine of 52/12.0, consistent with end-stage renal disease, lactic acid levels of 1.5 Computed tomography scan of the abdomen and pelvis obtained revealing a small bowel obstruction. She does also have moderate abdominopelvic ascites and enteritis. Patient admitted to medicine for further management of small bowel obstruction and hyponatremia. Consult placed for general surgery regarding the small bowel obstruction. Consult was also placed for nephrology given that she is a peritoneal dialysis patient. 11/04/2022 the patient is seen and evaluated in room at bedside; patient remains afebrile and is currently breathing comfortably on room air sat complaint of abdominal distention and some discomfort, NG has been placed in by surgery no vomiting has been reported and had denies any diarrhea. Patient did have white count of 8.68, creatinine is 13, repeat peritoneal fluid white count is down to 168, vancomycin and was 9.6 patient presented hospital abdominal pain cloudy peritoneal fluid did have a significant elevated white count in the peritoneal fluid likely secondary to PD catheter associated peritonitis patient did not have any evidence of abdominal infection at the site of insertion of the PD catheter he will need to cover for the gram-positive skin emelina to the likely pathogen underlying gram-negative infection less likely not excluded -patient also have evidence of ileus on the CT may be contributing some of her abdominal pain -patient has received a dose of vancomycin today as the patient vancomycin and was 9.6, the patient will continue with Fortaz with peritoneal dialysis daily, until the cultures are finalized 11/05. Patient seen and examined. States abdominal pain has improved 11/06. Patient seen and examined. Nephrology plan to switch patient to hemodialysis. NG tube in place. Still having abdominal pain 11/07. Patient seen and examined. WBC this morning 13.75, hemoglobin 7, platelet count 305. Patient undergoing hemodialysis today 11/08. Patient seen and examined. Patient underwent status post robotic- assisted laparoscopic lysis of adhesions and removal of peritoneal dialysis catheter for small bowel obstruction, bacterial peritonitis and right ovarian cyst abscess. Currently on clear liquid diet. Abdominal pain has improved 11/09. Patient seen and examined hemoglobin this morning is 6.7, will order 1 unit of packed red blood cell. Diet advanced to regular 11/10. Patient seen and examined. Denies abdominal pain. Tolerating regular diet 11/11. Patient seen and examined. ID waiting on catheter tip and OR cultures 11/12. Patient seen and examined. Tolerating diet. Patient has persistent leukocytosis, WBC 30.47. Repeat CT abdominal and pelvis done on 11/11 showed mild proximal small bowel dilatation with scattered small bowel wall thickening. Moderate abdominopelvic ascites with intraperitoneal dialysis catheter REVIEW OF SYSTEMS: CONSTITUTIONAL: No fever, no malaise,. CARDIOVASCULAR: No chest pain, no palpitations, no syncope. PULMONARY: No shortness of breath, no cough, GASTROINTESTINAL: As mentioned above NEUROLOGICAL: No headaches, no weakness, PHYSICAL EXAMINATION: GENERAL: The patient is alert and oriented x3, not in any acute distress. Well developed, well nourished. HEENT: Pupils are round and equally reacting to light. EOMI. No scleral icterus. No conjunctival pallor. Normocephalic, atraumatic. No pharyngeal erythema. No thyromegaly. CARDIOVASCULAR: S1 and S2 present. No murmurs, rubs, or gallops. PULMONARY: Chest is clear to auscultation, no wheezing or crackles. ABDOMEN: Soft, nontender, surgical incision seen, drain in place MUSCULOSKELETAL: No joint swelling or deformity. EXTREMITIES: No cyanosis, clubbing, or pedal edema. NEUROLOGICAL: Gross neurological examination did not reveal any focal deficits. SKIN: No rashes. Assessment and plan Small bowel obstruction Abdominal pain PD catheter associated peritonitis -Monitor vital signs status post robotic-assisted laparoscopic lysis of adhesions and removal of peritoneal dialysis catheter for small bowel obstruction, bacterial peritonitis and right ovarian cyst abscess ID waiting on catheter tip and OR cultures Continue wound care Antibiotics changed to IV Zosyn and Flagyl Surgery following ID following End-stage renal disease on peritoneal dialysis , switched to hemodialysis Anemia Hypokalemia; Hyponatremia; Continue hemodialysis per nephrology Hypertension; patient remains on metoprolol 50 mg twice a day along with li sinopril 20 mg twice a day Seizure disorder; patient currently not on anti- seizure medication Anemia; monitor CBC Labs and medication were reviewed.. Continue same treatment. Continue with symptomatic treatment. Resume home medication. Monitor labs and vitals. DVT and GI prophylaxis. Further recommendations as per clinical course of the patient Dictation was produced using [employer] dictation software. please excuse any grammatical, word or spelling errors. Objective - Vital Signs Vital signs: Vital Signs Temp 98.0 F 11/12/22 08:00 Pulse 79 11/12/22 08:00 Resp 20 11/12/22 08:00 BP 186/106 11/12/22 08:00 Pulse Ox 96 11/12/22 08:44 FiO2 Intake & Output 11/11/22 11/12/22 11/12/22 18:59 06:59 18:59 Intake Total 150 Output Total 20 Balance 150 -20 Weight 99 kg Intake: Intake, IV Titration 150 Amount cefTRIAXone 2 gm In 50 Sodium Chloride 0.9% 50 ml @ 100 mls/hr IVPB Q24HR VANESSA Rx#:[id number] metroNIDAZOLE-NS PMX 500 100 mg In Saline 1 100ml.bag @ 100 mls/hr IVPB Q8HR VANESSA Rx#:[id number] Output: Drainage 20 Abdomen 20 Other: Voiding Method Toilet Toilet # Voids 1 0 # Bowel Movements 0 - Labs CBC & Chem 7: 11/12/22 04:21 11/12/22 04:21 Labs: Abnormal Lab Results - Last 24 Hours (Table) 11/12/22 11/12/22 Range/Units 04:21 04:21 WBC 30.47 H (4.50-10.00) X 10*3/uL RBC 2.18 L (4.10-5.20) X 10*6/uL Hgb 7.3 L (12.0-15.0) d/dL Hct 23.3 L (37.2-46.3) % MCV 106.9 H (80.0-97.0) FL MCH 33.5 H (27.0-32.0) pg MCHC 31.3 L (32.0-37.0) d/dL RDW 18.0 H (11.5-14.5) % Neutrophils # 26.43 H (1.80-7.70) X 10*3/uL Monocytes # 1.14 H (0.20-1.00) X 10*3/uL Sodium 134 L (135-145) mmol/L Chloride 93 L (96-109) mmol/L Carbon Dioxide 19.2 L (21.6-31.8) mmol/L Anion Gap 21.80 H (4.00-12.00) mmol/L BUN 74.6 H (9.0-27.0) mg/dL Creatinine 12.9 H* (0.6-1.5) mg/dL Est GFR (CKD-EPI) 3 L (>=60) BUN/Creatinine Ratio 5.78 L (12.00-20.00) Ratio Calcium 8.3 L (8.7-10.3) mg/dL Microbiology - Last 24 Hours (Table) 11/07/22 19:43 Gram Stain - Final Catheter Site Tissue Culture - Final 11/07/22 19:43 Anaerobic Culture - Preliminary Catheter Site Anaerobic Gm Negative Bacilli
--- NOTE | 2022-11-12 15:09 | IR ---
EXAMINATION TYPE: IR cvc insert central tunneled DATE OF EXAM: 11/06/2022 COMPARISON: NONE HISTORY: Fluoroscopy time. Fluoroscopy was provided to the referring clinician.
--- NOTE | 2022-11-12 17:25 | P.PN ---
Subjective Progress Note Date: 11/12/22 CHIEF COMPLAINT: Abdominal pain HISTORY OF PRESENT ILLNESS: The patient is a 42-year-old female admitted for abdominal pain. She is status post lysis of adhesions and was doing well as of 11/09/2022. She reports developing new onset severe lower abdominal pain over the weekend with change in color of her FRANCESCA drain. Her mother is at bedside. ROS: She reports diarrhea. She reports no appetite. PHYSICAL EXAM: VITAL SIGNS: Reviewed CONSTITUTIONAL: Well developed and in mild distress. EYES: Conjuctivae without sclera icterus. Extraocular movements grossly intact. HEAD, EARS, NOSE, THROAT: Moist buccal mucosa. Head is atraumatic, normocephalic. Hears conversational speech. No nasal drainage. RESPIRATORY: Non-labored respirations and equal bilateral excursions. CARDIOVASCULAR: Palpable 2+ radial pulses. ABDOMEN: FRANCESCA purulent, stool. MUSCULOSKELETAL: No gross deformity of the lower extremities noted. No clubbing. No cyanosis. SKIN: Good skin turgor. Well perfused. NEUROLOGIC: Cranial nerves II through XII grossly intact. No focal or lateralizing signs. PSYCH: Appropriate affect. Alert and oriented to person, place and time. CLINICAL LABS: Reviewed. WBC elevated over 30,000. MICRO: Multiple anaerobes STUDIES: CT of the abdomen pelvis and the panel review demonstrates bilateral lower lower lobe atelectasis. Decrease intra-abdominal ascites. Residual contrast within the colon. Small residual air within the pelvis and moderate sigmoid diverticulosis. FRANCESCA drain at sigmoid colon and pelvis. This is my independent interpretation ASSESSMENT: 1. Perforated sigmoid diverticulitis 2. Small bowel obstruction 3. Sepsis 4. End-stage renal disease PLAN: 1. Continue with dialysis for today 2. Recommend urgent exploratory laparotomy with ostomy and colectomy as clinical picture consistent with localized perforated diverticulitis and likely cause of spontaneous bacterial peritonitis with bowel obstruction 3. Patient is high risk due to recent exploration and end-stage renal disease, morbid obesity, sepsis Objective - Vital Signs Vital signs: Vital Signs Temp 98.0 F 11/12/22 13:51 Pulse 83 11/12/22 13:51 Resp 16 11/12/22 13:51 BP 171/104 11/12/22 13:51 Pulse Ox 91 L 11/12/22 13:51 FiO2 Intake & Output 11/11/22 11/12/22 11/12/22 18:59 06:59 18:59 Intake Total 150 Output Total 20 Balance 150 -20 Weight 99 kg Intake: Intake, IV Titration 150 Amount cefTRIAXone 2 gm In 50 Sodium Chloride 0.9% 50 ml @ 100 mls/hr IVPB Q24HR VANESSA Rx#:[id number] metroNIDAZOLE-NS PMX 500 100 mg In Saline 1 100ml.bag @ 100 mls/hr IVPB Q8HR VANESSA Rx#:[id number] Output: Drainage 20 Abdomen 20 Other: Voiding Method Toilet Toilet # Voids 1 0 # Bowel Movements 0 - Labs CBC & Chem 7: 11/12/22 04:21 11/12/22 04:21 Labs: Abnormal Lab Results - Last 24 Hours (Table) 11/12/22 11/12/22 Range/Units 04:21 04:21 WBC 30.47 H (4.50-10.00) X 10*3/uL RBC 2.18 L (4.10-5.20) X 10*6/uL Hgb 7.3 L (12.0-15.0) d/dL Hct 23.3 L (37.2-46.3) % MCV 106.9 H (80.0-97.0) FL MCH 33.5 H (27.0-32.0) pg MCHC 31.3 L (32.0-37.0) d/dL RDW 18.0 H (11.5-14.5) % Neutrophils # 26.43 H (1.80-7.70) X 10*3/uL Monocytes # 1.14 H (0.20-1.00) X 10*3/uL Sodium 134 L (135-145) mmol/L Chloride 93 L (96-109) mmol/L Carbon Dioxide 19.2 L (21.6-31.8) mmol/L Anion Gap 21.80 H (4.00-12.00) mmol/L BUN 74.6 H (9.0-27.0) mg/dL Creatinine 12.9 H* (0.6-1.5) mg/dL Est GFR (CKD-EPI) 3 L (>=60) BUN/Creatinine Ratio 5.78 L (12.00-20.00) Ratio Calcium 8.3 L (8.7-10.3) mg/dL Microbiology - Last 24 Hours (Table) 11/07/22 19:43 Anaerobic Culture - Final Catheter Site Bacteroides thetaiotaomicron 11/07/22 19:43 Gram Stain - Final Catheter Site Tissue Culture - Final
[2022-11-12 20:46] LABS: African American GFR (CKD) 7 (>60 ml/min/1.73 sqM); Anion Gap 12 mmol/L; Blood Urea Nitrogen 42 mg/dL (7-17); Calcium 8.2 mg/dL (8.4-10.2); Carbon Dioxide 24 mmol/L (22-30); Chloride 97 mmol/L (98-107); Glucose 84 mg/dL (74-99); Non-African American GFR(CKD) 6 (>60 ml/min/1.73 sqM); Potassium 4.7 mmol/L (3.5-5.1); Sodium 133 mmol/L (137-145)
[2022-11-13] MEDS: lisinopriL 10 MG TAB PO SCH ×3 (00:50→20:03)
[2022-11-13] MEDS: METOPROLOL TARTRATE 25 MG TAB PO SCH ×3 (00:50→20:02)
[2022-11-13] MEDS: SIMETHICONE 80 MG CHEWABLE PO SCH ×4 (00:50→22:17)
[2022-11-13] MEDS: PIPERACILLIN-TAZOBACTAM 3.375 GM in SODIUM CHLORIDE 0.9% 100 ML IVPB SCH ×3 (00:50→22:13)
[2022-11-13] MEDS: metroNIDAZOLE-NS PMX 500 MG in SALINE 1 100ML.BAG IVPB SCH ×3 (00:51→16:18)
[2022-11-13] MEDS: ACETAMINOPHEN TAB 500 MG TAB PO SCH ×5 (00:51→23:04)
[2022-11-13] MEDS: LACTATED RINGERS 1,000 ML IV SCH (00:52)
[2022-11-13] MEDS ORDERED: PROPOFOL 10 MG/ML 20 ML VIAL IV ONE (01:17)
[2022-11-13] MEDS ORDERED: DEXAMETHASONE SOD PHOSPHATE 4 MG/ML 1 ML VIAL ONE (01:17)
[2022-11-13] MEDS ORDERED: PHENYLEPHRINE-0.9% NACL SYG 1,000 MCG/10 ML SYRINGE ONE (01:17)
[2022-11-13] MEDS ORDERED: NEOSTIGMINE 1 MG/ML 10 ML VIAL ONE (01:17)
[2022-11-13] MEDS ORDERED: ALBUTEROL HFA INHALER INHALATION ONE (01:17)
[2022-11-13] MEDS ORDERED: LIDOCAINE 2% INJ 20 MG/ML (2 ML VIAL) ONE (01:17)
[2022-11-13] MEDS ORDERED: fentaNYL (PF) 50 MCG/ML 2 ML AMP ONE (01:17)
[2022-11-13] MEDS ORDERED: HYDROmorphone (PF) 1 MG/ML ONE (01:17)
[2022-11-13] MEDS ORDERED: ROCURONIUM 10 MG/ML (5 ML VIAL) IV ONE (01:17)
[2022-11-13] MEDS ORDERED: GLYCOPYRROLATE 0.2 MG/ML 2 ML VIAL ONE (01:17)
[2022-11-13] MEDS ORDERED: HEPARIN SODIUM,PORCINE 5,000 UNIT/ML 1 ML VIAL ONE (01:17)
[2022-11-13] MEDS ORDERED: ONDANSETRON 4 MG/2 ML VIAL ONE (01:17)
[2022-11-13 04:34] LABS: Glucose,Whole Blood 137 mg/dL (70-110)
[2022-11-13] MEDS ORDERED: Magnesium Replacement Protocol 1 EACH MISC MISCELLANE PRN (04:36)
[2022-11-13] MEDS ORDERED: Potassium Replacement Protocol 1 EACH MISC MISCELLANE PRN (04:36)
[2022-11-13] MEDS ORDERED: Phosphorus Replacement Protoco 1 EACH MISC MISCELLANE PRN (04:36)
[2022-11-13] MEDS: HYDROmorphone 1 MG/ML 1 ML SYRINGE IVP PRN ×5 (04:38→23:03)
--- NOTE | 2022-11-13 04:44 | P.OP ---
Date of Procedure: 11/13/22 Description of Procedure: PREOPERATIVE DIAGNOSES: 1. Fecal peritonitis 2. Sepsis 3. End-stage renal disease, dialysis dependent 4. Hypertensive heart disease 5. Morbid obesity due to excess calories, BMI 37.5. POSTOP DIAGNOSES: 1. Fecal peritonitis due to perforated sigmoid diverticulitis 2. Sepsis 3. End-stage renal disease, dialysis dependent 4. Hypertensive heart disease 5. Morbid obesity due to excess calories, BMI 37.5. PROCEDURES PERFORMED: 1. Exploratory laparotomy with lysis of adhesions 2. Sigmoid colectomy 3. Descending ostomy for Manuelito's procedure 4. Abdominal lavage 4 L normal saline 5. Removal of left lower quadrant FRANCESCA drain 6. Placement of round #19 FRANCESCA drain, right lower quadrant 7. Placement of incisional wound VAC system, 20 cm, PREVENA SURGEON: Dr. Joanna Blackburn. ANESTHESIA: General ESTIMATED BLOOD LOSS: 50 mL. SPECIMENS: 1. Sigmoid colon 2. Endometrioma of the lower abdomen COMPLICATIONS: None. CONDITION: Guarded. FINDINGS: 1. Perforated sigmoid diverticulitis for cause of bacterial peritonitis and bowel obstruction 2. Endometrioma of the lower abdominal wall, intramuscular, with specimen obtained 3. Bowel resection performed with Ethicon powered stapler 60 mm 4. Fibrinous exudate along small bowel lysed 5. Rectal stump was tagged with 4-0 Prolene INDICATIONS: The patient is a 42-year-old female who initially presented to Hospital for abdominal pain. Diagnostic studies demonstrated bowel obstruction. She underwent robotic lysis of adhesions with removal of her peritoneal dialysis catheter. Patient initially had done well for the first 3 days clinically. This morning, FRANCESCA drain demonstrated gross fecal peritonitis. White blood cell count was over 30,000. Urgent surgical intervention was described. Patient was optimized for surgery as she was due for dialysis. After she had been optimized for surgery, surgical intervention were prepared. Benefits, risks of procedure including bleeding, infection, bowel resection and ostomy were described in detail. Informed consent was obtained. DESCRIPTION: The patient was brought to the operating room. Preoperatively he did have a nasogastric tube from the floor. He did receive hemodialysis yesterday. Additionally, he had been on heparin drip and had gotten dialyzed. The patient was brought on the operating table. An epidural was placed per Anesthesia. Please note that a central line has also been placed by anesthesia as well. After general induction, a Prado catheter was placed. The abdomen had been prepped and draped in standard sterile fashion including placement of Ioban draping. Prior to incision, a time-out protocol was confirmed with surgical team regarding the patient's name and procedures being performed. He was on scheduled IV antibiotics. Initial attention was brought to this previous cicatrix of the mid to lower abdomen. A #10 blade was used to enter the previous incision and deepened into the subcutaneous tissue. From and along the length of the incision, severe adhesions were found involving the small bowel. Carefully the abdomen was entered using a combination of blunt dissection with a Kitner as well as Metzenbaum scissors and a #10 blade. Extensive lysis of adhesions occurred well over an hour upon entry into the abdomen to avoid any enterotomies. Next once the abdomen was entered, the bowel was investigated from the ligament of Treitz distally. Multiple interloop adhesions were found involving the proximal mid and distal jejunum. Along the distal jejunum however, the small bowel was found to be tethered to the sacral promontory. He did have features of previous diverticulitis as intraabdominal nodules highly suspicious for fecal matter was found involving the left lower quadrant into the deep pelvis. Separately the cecum and ascending colon was completely decompressed. The entire ilium was also completely decompressed. Mesenteric adhesions were also similarly lysed using a combination of blunt dissection, including Metzenbaum scissors. At the left lower quadrant, the small bowel was also tethered and twisted very deep into the pelvis creating a 360 degree obstruction which is consistent with a complete bowel obstruction. Adhesiolysis was performed. The small bowel loop involved was narrowed and fibrotic consistent with chronic obstruction. The focal narrowing also created a functional obstruction despite removed the peritoneal adhesion. As a results of this finding a small bowel section was proposed. The point of resection was along the mid to distal jejunum. A 3-0 silk suture was placed along the antimesenteric border. Next the bowel was resected proximally and distally using a 60 mm Covidien harmon staple load. The small bowel loop was dissected along its mesenteric using LigaSure. Next enterotomies were made along the antimesenteric border and a stapler 60 mm harmon load was fired to create neolumen. The enterotomy was closed using similar stapler load. The mesenteric defect was oversewn and closed using 3-0 silk. This was also performed to prevent internal hernias along this mesenteric defect. Please note, prior to small bowel resection, the rest of the small bowel had been investigated for any other intramucosal obstruction. A soft spongy food bezoar was palpated. Per discussion with patient's , he had been eating steak which had brought him to the ER for a bowel obstruction. This food bezoar was then milked into the cecum. The decompressed distal small bowel had been resolved with enteric contents leading into the colon. Prior to irrigation of the abdomen, the nasogastric tube was repositioned and confirmed with Anesthesia. The abdomen was copiously irrigated with 3 L of warm normal saline solution. Hemostasis had been checked. Given the moderate amount of irrigation a round 19 drain was exited via the right lower quadrant with suction within the deep pelvis. The greater omentum was found tether along the upper abdomen and hence Interceed was placed along the closure of the abdomen as to minimize any future peritoneal adhesions along the midline. The abdomen had been closed using double-stranded 0-PDS. The subcutaneous tissue had been cleansed. Next, interrupted 3- 0 Vicryl along the dermis was placed. A Optifoam surgical dressing was placed lengthwise. Please note, a 2-0 nylon drain stitch was placed. The tubing was cut to size, and a FRANCESCA bulb was placed. Optifoam dressing was also placed over the FRANCESCA site as well. At the end of the procedure, the sponge and instrument count had been verified correct by the certified surgical technologist. The patient tolerated the procedure well and was brought to the anesthesia postanesthesia care unit in guarded condition. Intraabdominal findings were reviewed at length with the patient's family. Entry to the abdomen took at least 1 hour with over 2.5 hours of extensive lysis of adhesions to address all multiple areas of obstruction, at least 6 identified.
[2022-11-13] MEDS ORDERED: ACETAMINOPHEN IV (For NPO) 1,000 MG in EMPTY BAG 1 BAG IVPB SCH (06:00)
[2022-11-13] MEDS ORDERED: ACETAMINOPHEN IVPB SCH (06:00)
[2022-11-13 06:26] LABS: ALT 8 U/L (4-34); AST 23 U/L (14-36); Albumin 2.5 g/dL (3.5-5.0); Albumin/Globulin Ratio 0.9; Alkaline Phosphatase 76 U/L (38-126); Anion Gap 19 mmol/L; Blood Urea Nitrogen 50 mg/dL (7-17); Calcium 7.9 mg/dL (8.4-10.2); Carbon Dioxide 16 mmol/L (22-30); Chloride 98 mmol/L (98-107); Globulin 2.9 g/dL; Glucose 131 mg/dL (74-99); Magnesium 2.2 mg/dL (1.6-2.3); Potassium 5.5 mmol/L (3.5-5.1); Sodium 133 mmol/L (137-145); Total Bilirubin 0.5 mg/dL (0.2-1.3); Total Protein 5.4 g/dL (6.3-8.2)
[2022-11-13 06:31] LABS: African American GFR (CKD) 6 (>60 ml/min/1.73 sqM); Non-African American GFR(CKD) 5 (>60 ml/min/1.73 sqM)
[2022-11-13] MEDS: HYDROmorphone 0.5 MG/0.5 ML SYRINGE IVP PRN ×2 (06:36→11:29)
[2022-11-13 06:49] LABS: Anisocytosis Slight; Basophils # (A) 0.1 k/uL (0-0.2); Basophils % (A) 0 %; Eosinophils # (A) 0.1 k/uL (0-0.7); Eosinophils % (A) 0 %; Hypochromasia Moderate; Lymphocytes # (A) 0.7 k/uL (1.0-4.8); Lymphocytes % (A) 2 %; MCH 33.5 pg (25.0-35.0); MCHC 31.9 g/dL (31.0-37.0); MCV 105.1 fL (80.0-100.0); Macrocytosis Marked; Mean Platelet Volume 9.3; Monocytes # (A) 0.5 k/uL (0-1.0); Monocytes % (A) 1 %; Neutrophils # (A) 34.1 k/uL (1.3-7.7); Neutrophils % (A) 96 %; Platelet Count 367 k/uL (150-450); RBC 2.85 m/uL (3.80-5.40); RDW 17.7 % (11.5-15.5); WBC 35.5 k/uL (3.8-10.6)
[2022-11-13 06:55] LABS: HGB 9.6 gm/dL (11.4-16.0)
[2022-11-13] MEDS: ENOXAPARIN 30 MG/0.3 ML SYRINGE SQ SCH (08:11)
[2022-11-13] MEDS: PANTOPRAZOLE 40 MG/10 ML VIAL IV SCH (08:11)
--- NOTE | 2022-11-13 11:11 | P.CNPUL ---
History of Present Illness Consult date: 11/13/22 Requesting physician: Cassia Valentin Reason for consult: other Chief complaint: Sepsis. History of present illness: Pulmonary consult dated 11/13/2022. 42-year-old female who was admitted back on November 02, for abdominal pain. She came into the emergency department with abdominal pain, going on for 2 or 3 days prior to admission. The patient apparently receives peritoneal dialysis every 6 hours, and was recently diagnosed with peritonitis. She was started on antibiotics, and is been in the hospital since the fourth. I was notified yesterday, by Dr. Terrazas, that the patient was needing surgery, and in the intensive care unit bed. She suspected a perforated sigmoid diverticuli, and the patient had a number of issues including renal failure, electrolyte disturbance, hypotension, etc. In addition, she was thought to be septic. The patient went to the operating room yesterday, and had an exploratory laparotomy, sigmoid colectomy, Brandon's pouch, abdominal washout, placement of the FRANCESCA drain, and placement of the wound VAC. She was successfully extubated in recovery, she is currently in the intensive care unit, room 258. She's currently on 4 L of oxygen by nasal cannula. She's getting lactated Ringer's at 20 mL an hour. She continues on Zosyn and Flagyl. White count is 35.5, hemoglobin 9.6, hematocrit 30, and platelet count 367,000. Sodium 133, potassium 5.5, chlorides 98, CO2 16, anion gap 19, BUN 50, creatinine 8.34. Peritoneal fluid cultures are positive for Bacteroides. Review of Systems REVIEW OF SYSTEMS: CONSTITUTIONAL: Fever. NEUROLOGIC: [ Negative.] HEENT: [ Negative.] CARDIAC: [Negative.] PULMONARY: [Negative.] GI: Abdominal pain. : [Negative.] RHEUMATOLOGIC: [ Negative.] IMMUNOLOGIC: [ Negative.] ENDOCRINE: [Negative. ] DERMATOLOGIC: [Negative.] 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., SWOLLEN OPTICAL NERVE & RETINA , STATES VISION BLURRED AT TIMES., PSEUDO TUMOR BRAIN., HX GOUT, ANEMIA, KIDNEY FAILURE.-HAS DIALYSIS CATHETER AND RECEIVING HEMODIALYSIS MO-SAT-SAT. HX FSGS (FOCAL SEGMENTAL GLOMERULOSCLEROSIS) History of Any Multi-Drug Resistant Organisms: None Reported Past Surgical History: Section Additional Past Surgical History / Comment(s): PD catheter 01/27/2019 Past Anesthesia/Blood Transfusion Reactions: No Reported Reaction Past Psychological History: Anxiety Smoking Status: Former smoker Past Alcohol Use History: Occasional Past Drug Use History: Marijuana - Past Family History Father Family Medical History: Myocardial Infarction (NE) Additional Family Medical History / Comment(s): FATHER AT AGE 35 OF MASSIVE HEART ATTACK Mother Family Medical History: Cancer, Deep Vein Thrombosis (DVT) Additional Family Medical History / Comment(s): SKIN CANCER Medications and Allergies Home Medications Medication Instructions Recorded Confirmed Type Metoprolol Tartrate [Lopressor] 50 mg PO BID 11/11/21 11/02/22 History Renaplex-D 1 tab PO DAILY 11/11/21 11/02/22 History Velphoro 500mg Chewable Tab 1,000 mg PO TID-W/MEALS 11/02/22 11/02/22 History Velphoro 500mg Chewable Tab 500 mg PO DAILY PRN 11/02/22 11/02/22 History lisinopriL [Zestril] 20 mg PO BID 11/02/22 11/02/22 History Allergies Allergy/AdvReac Type Severity Reaction Status Date / Time iron Allergy Severe Nausea & Verified 11/02/22 15:55 Vomiting & Diarrhea Pertussis Vaccines Allergy Unknown Verified 11/02/22 15:55 ciprofloxacin [From Cipro] AdvReac UNCONTROLLABLE Verified 11/02/22 15:55 EMOTIONS PER PT Physical Exam Osteopathic Statement: *. No significant issues noted on an osteopathic structural exam other than those noted in the History and Physical/Consult. Vitals: Vital Signs Temp Pulse Pulse Pulse Resp BP BP 11/13/22 10:00 86 20 151/89 11/13/22 09:00 90 18 158/94 11/13/22 08:00 97.7 F 98 24 148/91 11/13/22 07:49 11/13/22 07:00 92 24 134/83 11/13/22 04:18 97 20 125/74 11/13/22 04:03 99 20 139/70 11/13/22 03:48 98.2 F 104 H 18 128/73 11/12/22 20:00 98.5 F 89 24 157/103 11/12/22 18:54 98.4 F 94 16 153/94 11/12/22 13:51 98.0 F 83 16 171/104 Pulse Ox 11/13/22 10:00 96 11/13/22 09:00 95 11/13/22 08:00 94 L 11/13/22 07:49 94 L 11/13/22 07:00 94 L 11/13/22 04:18 98 11/13/22 04:03 98 11/13/22 03:48 96 11/12/22 20:00 11/12/22 18:54 96 11/12/22 13:51 91 L Intake and Output 11/12/22 11/13/22 11/13/22 22:59 06:59 14:59 Intake Total 500 100 160 Output Total 1500 20 Balance -1000 80 160 Intake: IV 100 160 Lactated Ringers 1,000 ml 100 60 @ 20 mls/hr IV .Q24H [facility] Rx#:[id number] metroNIDAZOLE-NS PMX 500 100 mg In Saline 1 100ml.bag @ 100 mls/hr IVPB Q8HR [facility] Rx#:[id number] Hemodialysis 500 Output: Drainage 20 RLQ FRANCESCA Drain 20 Hemodialysis 1500 Other: # Voids 1 0 0 Weight 96.3 kg No acute distress, oriented 3. Currently on 4 L by nasal cannula. HEENT examination is grossly unremarkable. Neck supple. Full range of motion. No adenopathy thyromegaly or neck vein distention. Cardiovascular examination reveals regular rhythm rate. S1-S2 normal. No S3 or S4. No discernible murmur noted. Heart sounds are distant. Heart rate is 86 bpm. Lungs reveal mild scattered rhonchi. Breath sounds equal bilaterally. No wheezes. No crackles. Saturations are 96%. Abdomen soft, but tender. No bowel sounds. Dressing is noted in place. Extremities are intact. No cyanosis clubbing or edema. Skin is without rash or lesion. Neurologic examination is brief but nonfocal. Results - Laboratory Findings CBC and BMP: 11/13/22 05:50 11/13/22 05:50 Abnormal lab findings: Abnormal Labs 11/02/22 11/02/22 11/02/22 11:30 11:30 16:19 WBC RBC 2.36 L Hgb 8.2 L Hct 23.8 L MCV 101.2 H MCH MCHC RDW 16.7 H Neutrophils # Neutrophils # (Manual) Lymphocytes # 0.4 L Monocytes # Eosinophils # NRBC/100 WBC Diff Macrocytosis Sodium 126 L Potassium 3.4 L Chloride 86 L Carbon Dioxide Anion Gap BUN 52 H Creatinine 12.04 H* Est GFR (CKD-EPI) BUN/Creatinine Ratio Glucose 109 H POC Glucose (mg/dL) Calcium 7.0 L Phosphorus Total Bilirubin ALT C-Reactive Protein Total Protein 5.3 L Albumin 2.6 L Albumin/Globulin Ratio Fluid Appearance Cloudy A Hep Bs Antibody Crossmatch 11/03/22 11/03/22 11/04/22 07:51 07:51 04:00 WBC RBC 2.12 L 2.10 L Hgb 7.5 L 7.2 L Hct 22.0 L 22.2 L MCV 103.4 H 105.7 H MCH 35.3 H 34.3 H MCHC RDW 16.6 H 16.3 H Neutrophils # Neutrophils # (Manual) Lymphocytes # Monocytes # Eosinophils # NRBC/100 WBC Diff Macrocytosis Sodium 127 L Potassium 3.4 L Chloride 88 L Carbon Dioxide Anion Gap BUN 54 H Creatinine 12.53 H* Est GFR (CKD-EPI) BUN/Creatinine Ratio Glucose 105 H POC Glucose (mg/dL) Calcium 6.6 L Phosphorus Total Bilirubin ALT C-Reactive Protein Total Protein Albumin Albumin/Globulin Ratio Fluid Appearance Hep Bs Antibody Crossmatch 11/04/22 11/05/22 11/05/22 04:00 10:15 18:05 WBC RBC Hgb Hct MCV MCH MCHC RDW Neutrophils # Neutrophils # (Manual) Lymphocytes # Monocytes # Eosinophils # NRBC/100 WBC Diff Macrocytosis Sodium 134 L Potassium Chloride 87 L Carbon Dioxide Anion Gap 18.40 H BUN 55.9 H Creatinine 13.0 H* Est GFR (CKD-EPI) 3 L BUN/Creatinine Ratio 4.30 L Glucose 118 H POC Glucose (mg/dL) Calcium 7.4 L Phosphorus Total Bilirubin ALT C-Reactive Protein 39.40 H Total Protein Albumin Albumin/Globulin Ratio Fluid Appearance Slightly Hazy A Hazy A Hep Bs Antibody Crossmatch 11/06/22 11/06/22 11/07/22 03:54 03:54 04:47 WBC 10.78 H 13.75 H RBC 2.22 L 2.10 L Hgb 7.5 L 7.0 L Hct 23.8 L 22.7 L MCV 107.2 H 108.1 H MCH 33.8 H 33.3 H MCHC 31.5 L 30.8 L RDW 16.5 H 16.0 H Neutrophils # 11.47 H Neutrophils # (Manual) Lymphocytes # Monocytes # Eosinophils # NRBC/100 WBC Diff Macrocytosis Sodium Potassium 3.3 L Chloride 86 L Carbon Dioxide Anion Gap 19.60 H BUN 59.6 H Creatinine 12.7 H* Est GFR (CKD-EPI) 3 L BUN/Creatinine Ratio 4.69 L Glucose 130 H POC Glucose (mg/dL) Calcium 7.5 L Phosphorus Total Bilirubin ALT C-Reactive Protein Total Protein Albumin Albumin/Globulin Ratio Fluid Appearance Hep Bs Antibody Crossmatch 11/07/22 11/07/22 11/07/22 04:47 10:05 15:10 WBC RBC Hgb Hct MCV MCH MCHC RDW Neutrophils # Neutrophils # (Manual) Lymphocytes # Monocytes # Eosinophils # NRBC/100 WBC Diff Macrocytosis Sodium Potassium Chloride 85 L Carbon Dioxide Anion Gap 23.20 H BUN 71.9 H Creatinine 14.8 H* Est GFR (CKD-EPI) 3 L BUN/Creatinine Ratio 4.86 L Glucose POC Glucose (mg/dL) Calcium 7.7 L Phosphorus 12.4 H* Total Bilirubin <0.2 L ALT 7 L C-Reactive Protein Total Protein 5.1 L Albumin 2.4 L Albumin/Globulin Ratio 0.89 L Fluid Appearance Hep Bs Antibody A Crossmatch See Detail 11/07/22 11/07/22 11/08/22 15:14 15:14 06:03 WBC 15.0 H 21.60 H RBC 2.28 L 2.11 L Hgb 7.9 L 7.1 L Hct 24.0 L 23.3 L MCV 105.1 H 110.4 H MCH 33.6 H MCHC 30.5 L RDW 15.9 H 15.9 H Neutrophils # 13.4 H 19.29 H Neutrophils # (Manual) Lymphocytes # 0.8 L 0.80 L Monocytes # Eosinophils # 0.01 L NRBC/100 WBC Diff Macrocytosis Sodium 134 L Potassium Chloride 93 L Carbon Dioxide Anion Gap BUN 43 H Creatinine 7.75 H* Est GFR (CKD-EPI) BUN/Creatinine Ratio Glucose POC Glucose (mg/dL) Calcium 7.7 L Phosphorus Total Bilirubin ALT C-Reactive Protein Total Protein 5.6 L Albumin 2.5 L Albumin/Globulin Ratio Fluid Appearance Hep Bs Antibody Crossmatch 11/08/22 11/09/22 11/09/22 06:03 06:47 06:47 WBC 19.98 H RBC 2.03 L Hgb 6.8 H* Hct 22.5 L MCV 110.8 H MCH 33.5 H MCHC 30.2 L RDW 15.9 H Neutrophils # Neutrophils # (Manual) 18.3816 H Lymphocytes # Monocytes # Eosinophils # NRBC/100 WBC Diff 0.02 H Macrocytosis Sodium Potassium Chloride 94 L Carbon Dioxide 21.5 L Anion Gap 20.80 H 22.50 H BUN 54.8 H 73.7 H Creatinine 10.2 H* 12.9 H* Est GFR (CKD-EPI) 4 L 3 L BUN/Creatinine Ratio 5.37 L 5.71 L Glucose POC Glucose (mg/dL) Calcium 7.8 L 8.2 L Phosphorus 10.4 H* Total Bilirubin <0.2 L <0.2 L ALT 6 L C-Reactive Protein Total Protein 5.3 L 5.2 L Albumin 2.4 L 2.3 L Albumin/Globulin Ratio 0.83 L 0.79 L Fluid Appearance Hep Bs Antibody Crossmatch 11/11/22 11/11/22 11/12/22 05:56 05:56 04:21 WBC 28.92 H 30.47 H RBC 2.26 L 2.18 L Hgb 7.3 L 7.3 L Hct 23.9 L 23.3 L MCV 105.8 H 106.9 H MCH 32.3 H 33.5 H MCHC 30.5 L 31.3 L RDW 18.1 H 18.0 H Neutrophils # 24.82 H 26.43 H Neutrophils # (Manual) Lymphocytes # Monocytes # 1.15 H 1.14 H Eosinophils # NRBC/100 WBC Diff Macrocytosis Sodium Potassium Chloride Carbon Dioxide Anion Gap 19.80 H BUN 64.6 H Creatinine 11.1 H* Est GFR (CKD-EPI) 4 L BUN/Creatinine Ratio 5.82 L Glucose POC Glucose (mg/dL) Calcium 8.3 L Phosphorus Total Bilirubin <0.2 L ALT 5 L C-Reactive Protein 26.10 H Total Protein 5.1 L Albumin 2.4 L Albumin/Globulin Ratio 0.89 L Fluid Appearance Hep Bs Antibody Crossmatch 11/12/22 11/12/22 11/13/22 04:21 20:07 04:32 WBC RBC Hgb Hct MCV MCH MCHC RDW Neutrophils # Neutrophils # (Manual) Lymphocytes # Monocytes # Eosinophils # NRBC/100 WBC Diff Macrocytosis Sodium 134 L 133 L Potassium Chloride 93 L 97 L Carbon Dioxide 19.2 L Anion Gap 21.80 H BUN 74.6 H 42 H Creatinine 12.9 H* 7.70 H* Est GFR (CKD-EPI) 3 L BUN/Creatinine Ratio 5.78 L Glucose POC Glucose (mg/dL) 137 H Calcium 8.3 L 8.2 L Phosphorus Total Bilirubin ALT C-Reactive Protein Total Protein Albumin Albumin/Globulin Ratio Fluid Appearance Hep Bs Antibody Crossmatch 11/13/22 11/13/22 05:50 05:50 WBC 35.5 H RBC 2.85 L Hgb 9.6 L D Hct 30.0 L MCV 105.1 H MCH MCHC RDW 17.7 H Neutrophils # 34.1 H Neutrophils # (Manual) Lymphocytes # 0.7 L Monocytes # Eosinophils # NRBC/100 WBC Diff Macrocytosis Marked A Sodium 133 L Potassium 5.5 H Chloride Carbon Dioxide 16 L Anion Gap BUN 50 H Creatinine 8.34 H* Est GFR (CKD-EPI) BUN/Creatinine Ratio Glucose 131 H POC Glucose (mg/dL) Calcium 7.9 L Phosphorus Total Bilirubin ALT C-Reactive Protein Total Protein 5.4 L Albumin 2.5 L Albumin/Globulin Ratio Fluid Appearance Hep Bs Antibody Crossmatch - Diagnostic Findings Chest x-ray: image reviewed Assessment and Plan Assessment: Postop day #0, status post exploratory laparotomy with lysis of adhesions, sigm oid colectomy, Brandon's procedure, abdominal washout, removal of a FRANCESCA drain, placement of a FRANCESCA drain, and placement of a wound VAC, for fecal peritonitis, and perforated sigmoid diverticulitis. History of hypertension. History of end-stage renal disease, currently on peritoneal dialysis. History of seizure disorder. History of gout. Anemia of chronic disease. Previous history of tobacco use. History of anxiety. Plan: Plan dated 11/13/2022. The patient is seen today in room 258. She continues on Zosyn and Flagyl. Peritoneal cultures are positive for Bacteroides. The patient is postop day #0. She had an extensive procedure as noted above. Labs, x-rays, medications are reviewed. Prognosis is guarded. She's currently on 4 L of oxygen. We will continue to follow make recommendations along the way. She'll continue in the intensive care unit for the time being. Additional recommendations and suggestions are to follow. Prognosis is certainly guarded. Time with Patient: Greater than 30
[2022-11-13] MEDS: SEVELAMER 800 MG TAB PO SCH ×3 (11:20→16:21)
[2022-11-13] MEDS: RENAPLEX D PO SCH (11:38)
--- NOTE | 2022-11-13 12:03 | P.PN ---
Subjective Patient is seen in follow-up for end-stage renal disease. PD catheter removed 11/07/2022. Now on hemodialysis. Tolerating dialysis well. Patient was taken to or yesterday on 11/12/2022 due to stool noted in the FRANCESCA drain and persistent elevation of white cell count. Patient was noted to have bowel perforation. She had resection of a small portion of the colon. Patient was transferred to the ICU. She is currently hemodynamically stable. Pain is fairly well controlled. Potassium is 5.5 today Objective - Vital Signs Vital signs: Vital Signs Temp 97.7 F 11/13/22 08:00 Pulse 86 11/13/22 10:00 Resp 20 11/13/22 10:00 BP 151/89 11/13/22 10:00 Pulse Ox 96 11/13/22 10:00 FiO2 Intake & Output 11/12/22 11/13/22 11/13/22 18:59 06:59 18:59 Intake Total 600 160 Output Total 1520 Balance -920 160 Weight 96.3 kg Intake: IV 100 160 Lactated Ringers 1,000 ml 100 60 @ 20 mls/hr IV .Q24H [facility] Rx#:[id number] metroNIDAZOLE-NS PMX 500 100 mg In Saline 1 100ml.bag @ 100 mls/hr IVPB Q8HR [facility] Rx#:[id number] Hemodialysis 500 Output: Drainage 20 RLQ FRANCESCA Drain 20 Hemodialysis 1500 Other: Voiding Method Toilet # Voids 1 0 0 - Exam Patient is awake, comfortable, in no acute distress Alert oriented 3 Examination of the heart S1 and S2 Examination of the lungs bilateral breath sounds are heard Abdomen is soft, tenderness noted Examination of lower extremities shows no significant edema 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 - Labs CBC & Chem 7: 11/13/22 05:50 11/13/22 05:50 Labs: Abnormal Lab Results - Last 24 Hours (Table) 11/09/22 11/12/22 11/13/22 Range/Units 06:47 20:07 04:32 WBC (3.8-10.6) k/uL RBC (3.80-5.40) m/uL Hgb (11.4-16.0) gm/dL Hct (34.0-46.0) % MCV (80.0-100.0) fL RDW (11.5-15.5) % Neutrophils # (1.3-7.7) k/uL Neutrophils # (Manual) 18.3816 H (2.00-8.90) Lymphocytes # (1.0-4.8) k/uL Macrocytosis Sodium 133 L (137-145) mmol/L Potassium (3.5-5.1) mmol/L Chloride 97 L (98-107) mmol/L Carbon Dioxide (22-30) mmol/L BUN 42 H (7-17) mg/dL Creatinine 7.70 H* (0.52-1.04) mg/dL Glucose (74-99) mg/dL POC Glucose (mg/dL) 137 H (70-110) mg/dL Calcium 8.2 L (8.4-10.2) mg/dL Total Protein (6.3-8.2) g/dL Albumin (3.5-5.0) g/dL 11/13/22 11/13/22 Range/Units 05:50 05:50 WBC 35.5 H (3.8-10.6) k/uL RBC 2.85 L (3.80-5.40) m/uL Hgb 9.6 L D (11.4-16.0) gm/dL Hct 30.0 L (34.0-46.0) % MCV 105.1 H (80.0-100.0) fL RDW 17.7 H (11.5-15.5) % Neutrophils # 34.1 H (1.3-7.7) k/uL Neutrophils # (Manual) (2.00-8.90) Lymphocytes # 0.7 L (1.0-4.8) k/uL Macrocytosis Marked A Sodium 133 L (137-145) mmol/L Potassium 5.5 H (3.5-5.1) mmol/L Chloride (98-107) mmol/L Carbon Dioxide 16 L (22-30) mmol/L BUN 50 H (7-17) mg/dL Creatinine 8.34 H* (0.52-1.04) mg/dL Glucose 131 H (74-99) mg/dL POC Glucose (mg/dL) (70-110) mg/dL Calcium 7.9 L (8.4-10.2) mg/dL Total Protein 5.4 L (6.3-8.2) g/dL Albumin 2.5 L (3.5-5.0) g/dL Microbiology - Last 24 Hours (Table) 11/07/22 19:43 Gram Stain - Final Catheter Site Tissue Culture - Final Anaerobic Gm Negative Bacilli Bacteroides thetaiotaomicron 11/07/22 19:43 Anaerobic Culture - Final Catheter Site Bacteroides thetaiotaomicron Assessment and Plan Assessment: 1. End-stage renal disease on peritoneal dialysis 2. PD peritonitis. Status post removal of PD catheter on 11/07/2022 and currently on hemodialysis via IJ permacath. Patient tolerating her treatment well. Final fluid culture from PD fluid is growing bacteroids. Initial culture had shown E. coli as outpatient. Stool was noted in the FRANCESCA drain and patient was taken back to or yesterday 11/12/2022. Patient had sigmoid colectomy with lysis of the lesions and descending ostomy for Brandon's procedure. 3. Small bowel obstruction status post laparoscopic lysis of adhesions and removal of PD catheter on 11/07/2022 4. Anemia of chronic disease 5. CK D mineral bone disorder 6. Hypertension, with CK D. 7. Hyperkalemia associated with end-stage renal disease and recent surgery Plan: Hemodialysis today and again in a.m. Antibiotics as per ID.
--- NOTE | 2022-11-13 14:43 | P.PN ---
Subjective Progress Note Date: 11/12/22 Principal diagnosis: PD catheter associated peritonitis Patient is a 42-year-old female with a past medical history negative for hypertension seizure disorder history of end-stage renal disease on peritoneal dialysis since December 2018 did have 1 previous episode of infection treated with antibiotics patient started having a problem with abdominal pain that started on Saturday is about 4 days before presentation to the hospital, patient has been diagnosed with peritonitis also have CT abdominal pelvis suggestive of ileus.Patient is status post laparoscopic lysis of adhesion removal of dialysis catheter and drainage of the abscess on 11/07/2022. on today's evaluation that is 11/12/2022 patient remains to be afebrile, the patient is breathing comfortably on room air, patient denies having any chest pain or shortness of breath and no significant cough , the patient abdominal pain has decreased in intensity and controlled with the current medication, the patient denies nausea no vomiting patient did have a small bowel movement today Patient white count is up to 30,000 today today, hemoglobin is 7.3 , CT was reviewed with the radiologist did not mention any perforation or abscess Objective - Vital Signs Vital signs: Vital Signs Temp 98.0 F 11/12/22 08:00 Pulse 79 11/12/22 08:00 Resp 20 11/12/22 08:00 BP 186/106 11/12/22 08:00 Pulse Ox 96 11/12/22 08:44 FiO2 Intake & Output 11/11/22 11/12/22 11/12/22 18:59 06:59 18:59 Intake Total 150 Output Total 20 Balance 150 -20 Weight 99 kg Intake: Intake, IV Titration 150 Amount cefTRIAXone 2 gm In 50 Sodium Chloride 0.9% 50 ml @ 100 mls/hr IVPB Q24HR [facility] Rx#:[id number] metroNIDAZOLE-NS PMX 500 100 mg In Saline 1 100ml.bag @ 100 mls/hr IVPB Q8HR [facility] Rx#:[id number] Output: Drainage 20 Abdomen 20 Other: Voiding Method Toilet Toilet # Voids 1 0 # Bowel Movements 0 - Exam GENERAL DESCRIPTION: Middle-aged female lying in bed in no distress RESPIRATORY SYSTEM: Unlabored breathing , decreased breath sounds at bases HEART: S1 S2 regular rate and rhythm , ABDOMEN: Soft , mild abdominal distention and left upper abdominal tenderness FRANCESCA drain with mostly purulent secretions EXTREMITIES: No edema feet - Labs CBC & Chem 7: 11/13/22 05:50 11/13/22 05:50 Labs: Abnormal Lab Results - Last 24 Hours (Table) 11/11/22 11/11/22 11/12/22 Range/Units 05:56 05:56 04:21 WBC 28.92 H 30.47 H (4.50-10.00) X 10*3/uL RBC 2.26 L 2.18 L (4.10-5.20) X 10*6/uL Hgb 7.3 L 7.3 L (12.0-15.0) d/dL Hct 23.9 L 23.3 L (37.2-46.3) % MCV 105.8 H 106.9 H (80.0-97.0) FL MCH 32.3 H 33.5 H (27.0-32.0) pg MCHC 30.5 L 31.3 L (32.0-37.0) d/dL RDW 18.1 H 18.0 H (11.5-14.5) % Neutrophils # 24.82 H 26.43 H (1.80-7.70) X 10*3/uL Monocytes # 1.15 H 1.14 H (0.20-1.00) X 10*3/uL Sodium (135-145) mmol/L Chloride (96-109) mmol/L Carbon Dioxide (21.6-31.8) mmol/L Anion Gap 19.80 H (4.00-12.00) mmol/L BUN 64.6 H (9.0-27.0) mg/dL Creatinine 11.1 H* (0.6-1.5) mg/dL Est GFR (CKD-EPI) 4 L (>=60) BUN/Creatinine Ratio 5.82 L (12.00-20.00) Ratio Calcium 8.3 L (8.7-10.3) mg/dL Total Bilirubin <0.2 L (0.3-1.2) mg/dL ALT 5 L (8-44) U/L C-Reactive Protein 26.10 H (0.00-0.80) mg/dL Total Protein 5.1 L (6.2-8.2) d/dL Albumin 2.4 L (3.8-4.9) d/dL Albumin/Globulin Ratio 0.89 L (1.60-3.17) Ratio 11/12/22 Range/Units 04:21 WBC (4.50-10.00) X 10*3/uL RBC (4.10-5.20) X 10*6/uL Hgb (12.0-15.0) d/dL Hct (37.2-46.3) % MCV (80.0-97.0) FL MCH (27.0-32.0) pg MCHC (32.0-37.0) d/dL RDW (11.5-14.5) % Neutrophils # (1.80-7.70) X 10*3/uL Monocytes # (0.20-1.00) X 10*3/uL Sodium 134 L (135-145) mmol/L Chloride 93 L (96-109) mmol/L Carbon Dioxide 19.2 L (21.6-31.8) mmol/L Anion Gap 21.80 H (4.00-12.00) mmol/L BUN 74.6 H (9.0-27.0) mg/dL Creatinine 12.9 H* (0.6-1.5) mg/dL Est GFR (CKD-EPI) 3 L (>=60) BUN/Creatinine Ratio 5.78 L (12.00-20.00) Ratio Calcium 8.3 L (8.7-10.3) mg/dL Total Bilirubin (0.3-1.2) mg/dL ALT (8-44) U/L C-Reactive Protein (0.00-0.80) mg/dL Total Protein (6.2-8.2) d/dL Albumin (3.8-4.9) d/dL Albumin/Globulin Ratio (1.60-3.17) Ratio Microbiology - Last 24 Hours (Table) 11/07/22 19:43 Gram Stain - Final Catheter Site Tissue Culture - Final 11/07/22 19:43 Anaerobic Culture - Preliminary Catheter Site Anaerobic Gm Negative Bacilli Assessment and Plan (1) Peritonitis associated with continuous ambulatory peritoneal dialysis Current Visit: Yes Status: Acute Code(s): T80.89XA - OTH COMP FOL INFUSION, TRANSFUSE AND THERAPUTC INJECT, INIT; K65.9 - PERITONITIS, UNSPECIFIED; Z99.2 - DEPENDENCE ON RENAL DIALYSIS SNOMED Code(s): 315964859 Plan: 1patient presented hospital abdominal pain cloudy peritoneal fluid did have a significant elevated white in the peritoneal fluid likely secondary to PD catheter associated peritonitis patient did not have any evidence of abdominal infection at the site of insertion of the PD catheter patient also have evidence of ileus on the CT may be contributing some of her abdominal pain, patient did have a small bowel follow-through, did show delayed transit of contrast through the bowel with no evidence of small bowel obstruction 2-patient is status post laparoscopic lysis of adhesion removal of the dialysis catheter and drainage of the abscess abdominal cultures currently pending . 3patient noticed to have worsening of her white count and the patient was noticed to have more abdominal tenderness , patient did have a CT abdominal pelvis did not mention any abscess however high clinical suspicious for possible perforation and patient will be reevaluated by general surgery, continue the patient on Zosyn and monitor clinical course closely multiple family member at the bedside questions were answered Dictation was produced using [employer] dictation software. please excuse any grammatical, word or spelling errors. Time with Patient: Less than 30
--- NOTE | 2022-11-13 14:46 | P.PN ---
Subjective Progress Note Date: 11/13/22 Principal diagnosis: PD catheter associated peritonitis Patient is a 42-year-old female with a past medical history negative for hypertension seizure disorder history of end-stage renal disease on peritoneal dialysis since December 2018 did have 1 previous episode of infection treated with antibiotics patient started having a problem with abdominal pain that started on Saturday that is about 4 days before presentation to the hospital, patient has been diagnosed with peritonitis also have CT abdominal pelvis suggestive of ileus.Patient is status post laparoscopic lysis of adhesion removal of dialysis catheter and drainage of the abscess on 11/07/2022. Patient was taken to the OR late 11/12/2022 status post laparotomy and evidence of perforated sigmoid diverticulitis status post sigmoid colectomy and an ostomy on today's evaluation that is 11/13/2022 patient continues to be afebrile, the patient is breathing comfortably on 3 L nasal cannula oxygen, patient denies having any chest pain or shortness of breath and no significant cough , the patient abdominal pain has decreased and the patient denies nausea no vomiting patient did have a small bowel movement today Patient white count is up to 35,000, hemoglobin is 9.6 , repeat abdominal cultures currently pending Objective - Vital Signs Vital signs: Vital Signs Temp 97.7 F 11/13/22 08:00 Pulse 86 11/13/22 10:00 Resp 20 11/13/22 10:00 BP 151/89 11/13/22 10:00 Pulse Ox 96 11/13/22 10:00 FiO2 Intake & Output 11/12/22 11/13/22 11/13/22 18:59 06:59 18:59 Intake Total 600 160 Output Total 1520 Balance -920 160 Weight 96.3 kg Intake: IV 100 160 Lactated Ringers 1,000 ml 100 60 @ 20 mls/hr IV .Q24H [facility] Rx#:[id number] metroNIDAZOLE-NS PMX 500 100 mg In Saline 1 100ml.bag @ 100 mls/hr IVPB Q8HR [facility] Rx#:[id number] Hemodialysis 500 Output: Drainage 20 RLQ FRANCESCA Drain 20 Hemodialysis 1500 Other: Voiding Method Toilet # Voids 1 0 0 - Exam GENERAL DESCRIPTION: Middle-aged female lying in bed in no distress RESPIRATORY SYSTEM: Unlabored breathing , decreased breath sounds at bases HEART: S1 S2 regular rate and rhythm , ABDOMEN: Soft , mild abdominal distention and tenderness EXTREMITIES: No edema feet - Labs CBC & Chem 7: 11/13/22 05:50 11/13/22 05:50 Labs: Abnormal Lab Results - Last 24 Hours (Table) 11/09/22 11/12/22 11/13/22 Range/Units 06:47 20:07 04:32 WBC (3.8-10.6) k/uL RBC (3.80-5.40) m/uL Hgb (11.4-16.0) gm/dL Hct (34.0-46.0) % MCV (80.0-100.0) fL RDW (11.5-15.5) % Neutrophils # (1.3-7.7) k/uL Neutrophils # (Manual) 18.3816 H (2.00-8.90) Lymphocytes # (1.0-4.8) k/uL Macrocytosis Sodium 133 L (137-145) mmol/L Potassium (3.5-5.1) mmol/L Chloride 97 L (98-107) mmol/L Carbon Dioxide (22-30) mmol/L BUN 42 H (7-17) mg/dL Creatinine 7.70 H* (0.52-1.04) mg/dL Glucose (74-99) mg/dL POC Glucose (mg/dL) 137 H (70-110) mg/dL Calcium 8.2 L (8.4-10.2) mg/dL Total Protein (6.3-8.2) g/dL Albumin (3.5-5.0) g/dL 11/13/22 11/13/22 Range/Units 05:50 05:50 WBC 35.5 H (3.8-10.6) k/uL RBC 2.85 L (3.80-5.40) m/uL Hgb 9.6 L D (11.4-16.0) gm/dL Hct 30.0 L (34.0-46.0) % MCV 105.1 H (80.0-100.0) fL RDW 17.7 H (11.5-15.5) % Neutrophils # 34.1 H (1.3-7.7) k/uL Neutrophils # (Manual) (2.00-8.90) Lymphocytes # 0.7 L (1.0-4.8) k/uL Macrocytosis Marked A Sodium 133 L (137-145) mmol/L Potassium 5.5 H (3.5-5.1) mmol/L Chloride (98-107) mmol/L Carbon Dioxide 16 L (22-30) mmol/L BUN 50 H (7-17) mg/dL Creatinine 8.34 H* (0.52-1.04) mg/dL Glucose 131 H (74-99) mg/dL POC Glucose (mg/dL) (70-110) mg/dL Calcium 7.9 L (8.4-10.2) mg/dL Total Protein 5.4 L (6.3-8.2) g/dL Albumin 2.5 L (3.5-5.0) g/dL Microbiology - Last 24 Hours (Table) 11/07/22 19:43 Gram Stain - Final Catheter Site Tissue Culture - Final Anaerobic Gm Negative Bacilli Bacteroides thetaiotaomicron 11/07/22 19:43 Anaerobic Culture - Final Catheter Site Bacteroides thetaiotaomicron Assessment and Plan (1) Peritonitis associated with continuous ambulatory peritoneal dialysis Current Visit: Yes Status: Acute Code(s): T80.89XA - OTH COMP FOL INFUSION, TRANSFUSE AND THERAPUTC INJECT, INIT; K65.9 - PERITONITIS, UNSPECIFIED; Z99.2 - DEPENDENCE ON RENAL DIALYSIS SNOMED Code(s): 173621940 Plan: 1patient presented hospital abdominal pain cloudy peritoneal fluid did have a significant elevated white in the peritoneal fluid likely secondary to PD catheter associated peritonitis patient did not have any evidence of abdominal infection at the site of insertion of the PD catheter patient also have evidence of ileus on the CT may be contributing some of her abdominal pain, patient did have a small bowel follow-through, did show delayed transit of contrast through the bowel with no evidence of small bowel obstruction 2-patient is status post laparoscopic lysis of adhesion removal of the dialysis catheter and drainage of the abscess abdominal cultures currently growing anaerobic gram-negative bacilli 3patient noticed to have worsening of her white count and the patient was noticed to have more abdominal tenderness , patient did have evidence of perforated sigmoid colitis status post sigmoid colectomy and diverting colostomy along with drainage of the abscess cultures currently pending we will put the patient on Zosyn and monitor clinical course closely Dictation was produced using [employer] software. please excuse any grammatical, word or spelling errors. Time with Patient: Less than 30
--- NOTE | 2022-11-13 16:18 | P.PN ---
Subjective Progress Note Date: 11/13/22 42-year-old female, history of hypertension, seizure disorder, chronic kidney disease/dialysis who presents to the emergency department for abdominal pain. Patient states that abdominal pain has been going on for 2-3 days. She receives peritoneal dialysis every 6 hours and was diagnosed with peritonitis 2 days ago by the individual who manages her peritoneal dialysis. She was started on vancomycin and a cephalosporin antibiotic that she cannot recall the name of. She been on antibiotics for 2 days. She puts the medications in her dialysis bags. States that she continues to have abdominal pain despite the antibiotics. Reports that she has not had a bowel movement in 2 days, and prior to that she only had runny stool. Also reports ongoing nausea and vomiting and feels dehydrated. Denies any fevers, chills, sore throat, cough, dyspnea, chest pain, palpitations, abdominal pain, nausea, vomiting, diarrhea, back pain, or headaches. -- Blood work completed reveals a WBC of 8.1, hemoglobin of 8.2, platelet count of 261, sodium 126, potassium 3.4, BUN/creatinine of 52/12.0, consistent with end-stage renal disease, lactic acid levels of 1.5 Computed tomography scan of the abdomen and pelvis obtained revealing a small bowel obstruction. She does also have moderate abdominopelvic ascites and enteritis. Patient admitted to medicine for further management of small bowel obstruction and hyponatremia. Consult placed for general surgery regarding the small bowel obstruction. Consult was also placed for nephrology given that she is a peritoneal dialysis patient. 11/04/2022 the patient is seen and evaluated in room at bedside; patient remains afebrile and is currently breathing comfortably on room air sat complaint of abdominal distention and some discomfort, NG has been placed in by surgery no vomiting has been reported and had denies any diarrhea. Patient did have white count of 8.68, creatinine is 13, repeat peritoneal fluid white count is down to 168, vancomycin and was 9.6 patient presented hospital abdominal pain cloudy peritoneal fluid did have a significant elevated white count in the peritoneal fluid likely secondary to PD catheter associated peritonitis patient did not have any evidence of abdominal infection at the site of insertion of the PD catheter he will need to cover for the gram-positive skin emelina to the likely pathogen underlying gram-negative infection less likely not excluded -patient also have evidence of ileus on the CT may be contributing some of her abdominal pain -patient has received a dose of vancomycin today as the patient vancomycin and was 9.6, the patient will continue with Fortaz with peritoneal dialysis daily, until the cultures are finalized 11/05. Patient seen and examined. States abdominal pain has improved 11/06. Patient seen and examined. Nephrology plan to switch patient to hemodialysis. NG tube in place. Still having abdominal pain 11/07. Patient seen and examined. WBC this morning 13.75, hemoglobin 7, platelet count 305. Patient undergoing hemodialysis today 11/08. Patient seen and examined. Patient underwent status post robotic- assisted laparoscopic lysis of adhesions and removal of peritoneal dialysis catheter for small bowel obstruction, bacterial peritonitis and right ovarian cyst abscess. Currently on clear liquid diet. Abdominal pain has improved 11/09. Patient seen and examined hemoglobin this morning is 6.7, will order 1 unit of packed red blood cell. Diet advanced to regular 11/10. Patient seen and examined. Denies abdominal pain. Tolerating regular diet 11/11. Patient seen and examined. ID waiting on catheter tip and OR cultures 11/12. Patient seen and examined. Tolerating diet. Patient has persistent leukocytosis, WBC 30.47. Repeat CT abdominal and pelvis done on 11/11 showed mild proximal small bowel dilatation with scattered small bowel wall thickening. Moderate abdominopelvic ascites with intraperitoneal dialysis catheter 11/13. Patient seen and examined. Patient underwent Exploratory laparotomy with lysis of adhesions, Sigmoid colectomy, Descending ostomy for Manuelito's procedure on 11/12 REVIEW OF SYSTEMS: CONSTITUTIONAL: No fever, no malaise,. CARDIOVASCULAR: No chest pain, no palpitations, no syncope. PULMONARY: No shortness of breath, no cough, GASTROINTESTINAL: As mentioned above NEUROLOGICAL: No headaches, no weakness, PHYSICAL EXAMINATION: GENERAL: The patient is alert and oriented x3, not in any acute distress. Well developed, well nourished. HEENT: Pupils are round and equally reacting to light. EOMI. No scleral icterus. No conjunctival pallor. Normocephalic, atraumatic. No pharyngeal erythema. No thyromegaly. CARDIOVASCULAR: S1 and S2 present. No murmurs, rubs, or gallops. PULMONARY: Chest is clear to auscultation, no wheezing or crackles. ABDOMEN: Soft, nontender, surgical incision seen, ostomy seen MUSCULOSKELETAL: No joint swelling or deformity. EXTREMITIES: No cyanosis, clubbing, or pedal edema. NEUROLOGICAL: Gross neurological examination did not reveal any focal deficits. SKIN: No rashes. Assessment and plan Fecal peritonitis due to perforated sigmoid diverticulitis Small bowel obstruction Abdominal pain PD catheter associated peritonitis -Monitor vital signs status post robotic-assisted laparoscopic lysis of adhesions and removal of peritoneal dialysis catheter for small bowel obstruction, bacterial peritonitis and right ovarian cyst abscess on 11/07 Status post Exploratory laparotomy with lysis of adhesions, Sigmoid colectomy, Descending ostomy for Manuelito's procedure on 11/12 Continue wound care Continue IV Zosyn and Flagyl Surgery following ID following End-stage renal disease on peritoneal dialysis , switched to hemodialysis Anemia Hypokalemia; Hyponatremia; Continue hemodialysis per nephrology Hypertension; patient remains on metoprolol 50 mg twice a day along with lisinopril 20 mg twice a day Seizure disorder; patient currently not on anti- seizure medication Anemia; monitor CBC Labs and medication were reviewed.. Continue same treatment. Continue with symptomatic treatment. Resume home medication. Monitor labs and vitals. DVT and GI prophylaxis. Further recommendations as per clinical course of the patient Dictation was produced using [employer] dictation software. please excuse any grammatical, word or spelling errors. Objective - Vital Signs Vital signs: Vital Signs Temp 97.7 F 11/13/22 08:00 Pulse 86 11/13/22 10:00 Resp 20 11/13/22 10:00 BP 151/89 11/13/22 10:00 Pulse Ox 96 11/13/22 10:00 FiO2 Intake & Output 11/12/22 11/13/22 11/13/22 18:59 06:59 18:59 Intake Total 600 160 Output Total 1520 Balance -920 160 Weight 96.3 kg Intake: IV 100 160 Lactated Ringers 1,000 ml 100 60 @ 20 mls/hr IV .Q24H [facility] Rx#:[id number] metroNIDAZOLE-NS PMX 500 100 mg In Saline 1 100ml.bag @ 100 mls/hr IVPB Q8HR [facility] Rx#:[id number] Hemodialysis 500 Output: Drainage 20 RLQ FRANCESCA Drain 20 Hemodialysis 1500 Other: Voiding Method Toilet # Voids 1 0 0 - Labs CBC & Chem 7: 11/13/22 05:50 11/13/22 05:50 Labs: Abnormal Lab Results - Last 24 Hours (Table) 11/09/22 11/12/22 11/13/22 Range/Units 06:47 20:07 04:32 WBC (3.8-10.6) k/uL RBC (3.80-5.40) m/uL Hgb (11.4-16.0) gm/dL Hct (34.0-46.0) % MCV (80.0-100.0) fL RDW (11.5-15.5) % Neutrophils # (1.3-7.7) k/uL Neutrophils # (Manual) 18.3816 H (2.00-8.90) Lymphocytes # (1.0-4.8) k/uL Macrocytosis Sodium 133 L (137-145) mmol/L Potassium (3.5-5.1) mmol/L Chloride 97 L (98-107) mmol/L Carbon Dioxide (22-30) mmol/L BUN 42 H (7-17) mg/dL Creatinine 7.70 H* (0.52-1.04) mg/dL Glucose (74-99) mg/dL POC Glucose (mg/dL) 137 H (70-110) mg/dL Calcium 8.2 L (8.4-10.2) mg/dL Total Protein (6.3-8.2) g/dL Albumin (3.5-5.0) g/dL 11/13/22 11/13/22 Range/Units 05:50 05:50 WBC 35.5 H (3.8-10.6) k/uL RBC 2.85 L (3.80-5.40) m/uL Hgb 9.6 L D (11.4-16.0) gm/dL Hct 30.0 L (34.0-46.0) % MCV 105.1 H (80.0-100.0) fL RDW 17.7 H (11.5-15.5) % Neutrophils # 34.1 H (1.3-7.7) k/uL Neutrophils # (Manual) (2.00-8.90) Lymphocytes # 0.7 L (1.0-4.8) k/uL Macrocytosis Marked A Sodium 133 L (137-145) mmol/L Potassium 5.5 H (3.5-5.1) mmol/L Chloride (98-107) mmol/L Carbon Dioxide 16 L (22-30) mmol/L BUN 50 H (7-17) mg/dL Creatinine 8.34 H* (0.52-1.04) mg/dL Glucose 131 H (74-99) mg/dL POC Glucose (mg/dL) (70-110) mg/dL Calcium 7.9 L (8.4-10.2) mg/dL Total Protein 5.4 L (6.3-8.2) g/dL Albumin 2.5 L (3.5-5.0) g/dL Microbiology - Last 24 Hours (Table) 11/07/22 19:43 Gram Stain - Final Catheter Site Tissue Culture - Final Anaerobic Gm Negative Bacilli Bacteroides thetaiotaomicron 11/07/22 19:43 Anaerobic Culture - Final Catheter Site Bacteroides thetaiotaomicron
[2022-11-14] MEDS: metroNIDAZOLE-NS PMX 500 MG in SALINE 1 100ML.BAG IVPB SCH ×4 (00:55→23:58)
[2022-11-14] MEDS: LACTATED RINGERS 1,000 ML IV SCH (00:56)
[2022-11-14] MEDS: HYDROmorphone 1 MG/ML 1 ML SYRINGE IVP PRN ×4 (02:11→23:02)
[2022-11-14 04:05] LABS: Anisocytosis Slight; Basophils % (A) 0 %; Eosinophils # (A) 0.1 k/uL (0-0.7); Eosinophils % (A) 1 %; HCT 21.6 % (34.0-46.0); Hypochromasia Moderate; Lymphocytes # (A) 1.2 k/uL (1.0-4.8); Lymphocytes % (A) 5 %; MCH 33.8 pg (25.0-35.0); MCV 105.4 fL (80.0-100.0); Mean Platelet Volume 8.3; Monocytes # (A) 0.8 k/uL (0-1.0); Monocytes % (A) 4 %; Neutrophils # (A) 21.5 k/uL (1.3-7.7); Neutrophils % (A) 90 %; Platelet Count 392 k/uL (150-450); RBC 2.05 m/uL (3.80-5.40); RDW 17.7 % (11.5-15.5); WBC 23.9 k/uL (3.8-10.6)
[2022-11-14 04:29] LABS: Anion Gap 12 mmol/L; Blood Urea Nitrogen 43 mg/dL (7-17); Calcium 7.7 mg/dL (8.4-10.2); Carbon Dioxide 24 mmol/L (22-30); Chloride 98 mmol/L (98-107); Glucose 99 mg/dL (74-99); Potassium 4.4 mmol/L (3.5-5.1); Sodium 134 mmol/L (137-145)
[2022-11-14 04:35] LABS: African American GFR (CKD) 7 (>60 ml/min/1.73 sqM); Non-African American GFR(CKD) 6 (>60 ml/min/1.73 sqM)
[2022-11-14 05:03] LABS: HGB 6.9 gm/dL (11.4-16.0); Macrocytosis Marked
[2022-11-14] MEDS: ACETAMINOPHEN TAB 500 MG TAB PO SCH ×3 (06:05→17:39)
[2022-11-14 06:29] LABS: Anisocytosis Slight; HCT 21.9 % (34.0-46.0); Hypochromasia Marked; MCH 33.4 pg (25.0-35.0); MCHC 31.2 g/dL (31.0-37.0); MCV 106.9 fL (80.0-100.0); Macrocytosis Marked; Mean Platelet Volume 8.7; Platelet Count 395 k/uL (150-450); RBC 2.05 m/uL (3.80-5.40)
[2022-11-14] MEDS: SEVELAMER 800 MG TAB PO SCH ×3 (06:49→17:34)
[2022-11-14 06:55] LABS: HGB 6.8 gm/dL (11.4-16.0)
--- NOTE | 2022-11-14 07:59 | P.PN ---
Subjective Progress Note Date: 11/13/22 CHIEF COMPLAINT: Abdominal pain HISTORY OF PRESENT ILLNESS: The patient is a 42-year-old female status post exploratory laparotomy, descending colostomy for perforated diverticulitis. She is in the ICU. Mother is at bedside. She reports improved abdominal pain. She is pending dialysis as her dialysis yesterday was discontinued prematurely. ROS: No fevers or chills. No shortness of breath. PHYSICAL EXAM: VITAL SIGNS: Reviewed CONSTITUTIONAL: Well developed and in mild distress. EYES: Conjuctivae without sclera icterus. Extraocular movements grossly intact. HEAD, EARS, NOSE, THROAT: Moist buccal mucosa. Head is atraumatic, normocephalic. Hears conversational speech. No nasal drainage. RESPIRATORY: Non-labored respirations and equal bilateral excursions. CARDIOVASCULAR: Palpable 2+ radial pulses. ABDOMEN: FRANCESCA serosanguineous. Incisional wound VAC system intact. MUSCULOSKELETAL: No gross deformity of the lower extremities noted. No clubbing. No cyanosis. SKIN: Good skin turgor. Well perfused. NEUROLOGIC: Cranial nerves II through XII grossly intact. No focal or laterali zing signs. PSYCH: Appropriate affect. Alert and oriented to person, place and time. CLINICAL LABS: Reviewed. WBC elevated over 35,000. ASSESSMENT: 1. Perforated sigmoid diverticulitis 2. Small bowel obstruction 3. Sepsis 4. End-stage renal disease PLAN: 1. Discussed with patient and mother at bedside, white blood cell count would worsen before it gets better. 2. Clinically, sure symptoms have improved. 3. Continue IV antibiotics 4. Continue ICU care due to sepsis from perforated diverticulitis Objective - Vital Signs Vital signs: Vital Signs Temp 98.2 F 11/14/22 04:00 Pulse 85 11/14/22 07:00 Resp 16 11/14/22 07:00 BP 142/73 11/14/22 07:00 Pulse Ox 93 L 11/14/22 07:00 FiO2 Intake & Output 11/13/22 11/14/22 11/14/22 18:59 06:59 18:59 Intake Total 940 0 Output Total 1815 20 Balance -875 -20 Weight 97.8 kg Intake: IV 540 Lactated Ringers 1,000 ml 240 @ 20 mls/hr IV .Q24H [facility] Rx#:[id number] Piperacillin-Tazobactam 3 100 .375 gm In Sodium Chloride 0.9% 100 ml @ 25 mls/hr IVPB Q12H [facility] Rx# :[id number] metroNIDAZOLE-NS PMX 500 200 mg In Saline 1 100ml.bag @ 100 mls/hr IVPB Q8HR [facility] Rx#:[id number] Oral 100 0 Hemodialysis 300 Output: Drainage 15 20 RLQ FRANCESCA Drain 15 20 Urine 0 Hemodialysis 1800 - Labs CBC & Chem 7: 11/14/22 05:42 11/14/22 03:51 Labs: Abnormal Lab Results - Last 24 Hours (Table) 11/13/22 11/14/22 11/14/22 Range/Units 05:50 03:51 03:51 WBC 23.9 H (3.8-10.6) k/uL RBC 2.05 L (3.80-5.40) m/uL Hgb 6.9 L* D (11.4-16.0) gm/dL Hct 21.6 L (34.0-46.0) % MCV 105.4 H (80.0-100.0) fL RDW 17.7 H (11.5-15.5) % Neutrophils # 34.1 H 21.5 H (1.3-7.7) k/uL Lymphocytes # 0.7 L (1.0-4.8) k/uL Macrocytosis Marked A Sodium 134 L (137-145) mmol/L BUN 43 H (7-17) mg/dL Creatinine 7.66 H* (0.52-1.04) mg/dL Calcium 7.7 L (8.4-10.2) mg/dL 11/14/22 Range/Units 05:42 WBC 25.0 H (3.8-10.6) k/uL RBC 2.05 L (3.80-5.40) m/uL Hgb 6.8 L* (11.4-16.0) gm/dL Hct 21.9 L (34.0-46.0) % MCV 106.9 H (80.0-100.0) fL RDW 18.0 H (11.5-15.5) % Neutrophils # (1.3-7.7) k/uL Lymphocytes # (1.0-4.8) k/uL Macrocytosis Marked A Sodium (137-145) mmol/L BUN (7-17) mg/dL Creatinine (0.52-1.04) mg/dL Calcium (8.4-10.2) mg/dL Microbiology - Last 24 Hours (Table) 11/13/22 03:45 Gram Stain - Preliminary Abdomen
--- NOTE | 2022-11-14 10:12 | P.PN ---
Subjective Progress Note Date: 11/14/22 Principal diagnosis: Abdominal pain. Pulmonary consult dated 11/13/2022. 42-year-old female who was admitted back on November 02, for abdominal pain. She came into the emergency department with abdominal pain, going on for 2 or 3 days prior to admission. The patient apparently receives peritoneal dialysis every 6 hours, and was recently diagnosed with peritonitis. She was started on antibiotics, and is been in the hospital since the fourth. I was notified yesterday, by Dr. Terrazas, that the patient was needing surgery, and in the intensive care unit bed. She suspected a perforated sigmoid diverticuli, and the patient had a number of issues including renal failure, electrolyte disturbance, hypotension, etc. In addition, she was thought to be septic. The patient went to the operating room yesterday, and had an exploratory laparotomy, sigmoid colectomy, Brandon's pouch, abdominal washout, placement of the FRANCESCA drain, and placement of the wound VAC. She was successfully extubated in recovery, she is currently in the intensive care unit, room 258. She's current ly on 4 L of oxygen by nasal cannula. She's getting lactated Ringer's at 20 mL an hour. She continues on Zosyn and Flagyl. White count is 35.5, hemoglobin 9.6, hematocrit 30, and platelet count 367,000. Sodium 133, potassium 5.5, chlorides 98, CO2 16, anion gap 19, BUN 50, creatinine 8.34. Peritoneal fluid cultures are positive for Bacteroides. Progress note dated 11/14/2022. 42-year-old female, postop day #1, status post exploratory laparotomy with lysis of adhesions, sigmoid colectomy, Brandon's procedure, abdominal washout, removal of the FRANCESCA drain, placement of the FRANCESCA drain, and placement of a wound VAC, for fecal peritonitis and perforated sigmoid diverticulitis. The patient is seen today in room 258. She is currently undergoing hemodialysis. She is on 2 L of oxygen. The plan for hemodialysis today is removed 1.5 L of fluid. The patient is getting lactated Ringer's at 20 mL an hour. In addition, she'll receive 1 unit of PRBCs. She's currently on Zosyn and Flagyl. 3 years ago, before starting peritoneal dialysis, she was receiving hemodialysis. White count 25, hemoglobin 6.8, hematocrit 21.9, and platelet count normal. Sodium 134, potassium 4.4, chlorides 98, CO2 24, BUN 43, and creatinine 7.66. Peritoneal fluid was positive for Bacteroides. No chest x-ray today. Objective - Vital Signs Vital signs: Vital Signs Temp 97.7 F 11/14/22 09:59 Pulse 78 11/14/22 09:59 Resp 18 11/14/22 09:59 BP 120/79 11/14/22 09:59 Pulse Ox 97 11/14/22 09:59 FiO2 Intake & Output 11/13/22 11/14/22 11/14/22 18:59 06:59 18:59 Intake Total 940 0 40 Output Total 1815 20 Balance -875 -20 40 Weight 97.8 kg 97.8 kg Intake: IV 540 40 Lactated Ringers 1,000 ml 240 40 @ 20 mls/hr IV .Q24H [facility] Rx#:[id number] Piperacillin-Tazobactam 3 100 .375 gm In Sodium Chloride 0.9% 100 ml @ 25 mls/hr IVPB Q12H [facility] Rx# :[id number] metroNIDAZOLE-NS PMX 500 200 mg In Saline 1 100ml.bag @ 100 mls/hr IVPB Q8HR [facility] Rx#:[id number] Oral 100 0 Blood Product 0 Rc Pheresis As-3 Unit 0 [id number] Hemodialysis 300 Output: Drainage 15 20 RLQ FRANCESCA Drain 15 20 Urine 0 Hemodialysis 1800 - Exam No acute distress, oriented 3. Currently on 2 L by nasal cannula. HEENT examination is grossly unremarkable. Neck supple. Full range of motion. No adenopathy thyromegaly or neck vein distention. Cardiovascular examination reveals regular rhythm rate. S1-S2 normal. No S3 or S4. No discernible murmur noted. Heart sounds are distant. Heart rate is 79 bpm. Lungs reveal mild scattered rhonchi. Breath sounds equal bilaterally. No wheezes. No crackles. Saturations are 97%. Abdomen soft, but tender. No bowel sounds. Dressing is noted in place. Extremities are intact. No cyanosis clubbing or edema. Skin is without rash or lesion. Neurologic examination is brief but nonfocal. - Labs CBC & Chem 7: 11/14/22 05:42 11/14/22 03:51 Labs: Abnormal Lab Results - Last 24 Hours (Table) 11/14/22 11/14/22 11/14/22 Range/Units 03:51 03:51 05:42 WBC 23.9 H 25.0 H (3.8-10.6) k/uL RBC 2.05 L 2.05 L (3.80-5.40) m/uL Hgb 6.9 L* D 6.8 L* (11.4-16.0) gm/dL Hct 21.6 L 21.9 L (34.0-46.0) % MCV 105.4 H 106.9 H (80.0-100.0) fL RDW 17.7 H 18.0 H (11.5-15.5) % Neutrophils # 21.5 H (1.3-7.7) k/uL Macrocytosis Marked A Marked A Sodium 134 L (137-145) mmol/L BUN 43 H (7-17) mg/dL Creatinine 7.66 H* (0.52-1.04) mg/dL Calcium 7.7 L (8.4-10.2) mg/dL Crossmatch 11/14/22 Range/Units 07:14 WBC (3.8-10.6) k/uL RBC (3.80-5.40) m/uL Hgb (11.4-16.0) gm/dL Hct (34.0-46.0) % MCV (80.0-100.0) fL RDW (11.5-15.5) % Neutrophils # (1.3-7.7) k/uL Macrocytosis Sodium (137-145) mmol/L BUN (7-17) mg/dL Creatinine (0.52-1.04) mg/dL Calcium (8.4-10.2) mg/dL Crossmatch See Detail Microbiology - Last 24 Hours (Table) 11/13/22 03:45 Gram Stain - Preliminary Abdomen Assessment and Plan Assessment: Postop day #1, status post exploratory laparotomy with lysis of adhesions, sigmoid colectomy, Brandon's procedure, abdominal washout, removal of a FRANCESCA drain, placement of a FRANCESCA drain, and placement of a wound VAC, for fecal peritonitis, and perforated sigmoid diverticulitis. Peritoneal sepsis, secondary to Bacteroides species. History of hypertension. History of end-stage renal disease, previously on peritoneal dialysis, now on hemodialysis. History of seizure disorder. History of gout. Anemia of chronic disease. Previous history of tobacco use. History of anxiety. Plan: Plan dated 11/13/2022. The patient is seen today in room 258. She continues on Zosyn and Flagyl. Peritoneal cultures are positive for Bacteroides. The patient is postop day #0. She had an extensive procedure as noted above. Labs, x-rays, medications are reviewed. Prognosis is guarded. She's currently on 4 L of oxygen. We will continue to follow make recommendations along the way. She'll continue in the intensive care unit for the time being. Additional recommendations and suggestions are to follow. Prognosis is certainly guarded. Plan dated 11/14/2022. The patient is seen today in room 258. She's currently receiving hemodialysis. She did have hemodialysis prior to peritoneal dialysis, 3 years ago. The plan is to 1.5 L of fluid today. The patient's hemoglobin was less than 7 and she'll receive 1 unit of packed red blood cells. She's on 2 L of oxygen. Peritoneal fluid was positive for Bacteroides species. The patient is on Zosyn and Flagyl. Additional recommendations and suggestions are forthcoming. Prognosis is guarded. Time with Patient: Greater than 30
[2022-11-14 12:02] LABS: Anisocytosis Slight; Hypochromasia Moderate; MCH 32.8 pg (25.0-35.0); MCHC 31.9 g/dL (31.0-37.0); MCV 102.9 fL (80.0-100.0); Macrocytosis Moderate; Mean Platelet Volume 8.5; Platelet Count 457 k/uL (150-450); Poikilocytosis Slight; RBC 2.53 m/uL (3.80-5.40); RDW 18.6 % (11.5-15.5); WBC 28.4 k/uL (3.8-10.6)
[2022-11-14 12:04] LABS: HGB 8.3 gm/dL (11.4-16.0)
[2022-11-14] MEDS: PANTOPRAZOLE 40 MG/10 ML VIAL IV SCH (12:07)
[2022-11-14] MEDS: lisinopriL 10 MG TAB PO SCH ×2 (12:07→20:03)
[2022-11-14] MEDS: ENOXAPARIN 30 MG/0.3 ML SYRINGE SQ SCH (12:07)
[2022-11-14] MEDS: METOPROLOL TARTRATE 25 MG TAB PO SCH ×2 (12:07→20:03)
[2022-11-14] MEDS: SIMETHICONE 80 MG CHEWABLE PO SCH ×3 (12:08→20:53)
--- NOTE | 2022-11-14 12:59 | P.PN ---
Subjective Patient is seen in follow-up for end-stage renal disease. PD catheter removed 11/07/2022. Now on hemodialysis. Patient was taken to OR on 11/12/2022 due to stool noted in the FRANCESCA drain and persistent elevation of white cell count. Patient was noted to have bowel perforation. She had resection of a small portion of the colon. Patient was transferred to the ICU. She is currently hemodynamically stable. Pain is fairly well controlled. Currently seen on hemodialysis. Tolerating treatment well. Hemoglobin was 6.8 g/dL. Patient is receiving 1 unit packed RBCs. Objective - Vital Signs Vital signs: Vital Signs Temp 97.6 F 11/14/22 12:07 Pulse 84 11/14/22 12:07 Resp 17 11/14/22 12:07 BP 118/65 11/14/22 12:07 Pulse Ox 94 L 11/14/22 12:01 FiO2 Intake & Output 11/13/22 11/14/22 11/14/22 18:59 06:59 18:59 Intake Total 940 0 712 Output Total 1815 20 2300 Balance -048 -35 -2317 Weight 97.8 kg 97.8 kg Intake: IV 540 80 Lactated Ringers 1,000 ml 240 80 @ 20 mls/hr IV .Q24H [facility] Rx#:[id number] Piperacillin-Tazobactam 3 100 .375 gm In Sodium Chloride 0.9% 100 ml @ 25 mls/hr IVPB Q12H [facility] Rx# :[id number] metroNIDAZOLE-NS PMX 500 200 mg In Saline 1 100ml.bag @ 100 mls/hr IVPB Q8HR [facility] Rx#:[id number] Oral 100 0 50 Blood Product 282 Rc Pheresis As-3 Unit 282 [id number] Hemodialysis 300 300 Output: Drainage 15 20 RLQ FRANCESCA Drain 15 20 Urine 0 Hemodialysis 1800 2300 - Exam Patient is awake, comfortable, in no acute distress Alert oriented 3 Examination of the heart S1 and S2 Examination of the lungs bilateral breath sounds are heard Abdomen is soft, tenderness noted Examination of lower extremities shows no significant edema CAN STERILIZER exam grossly intact - Labs CBC & Chem 7: 11/14/22 11:37 11/14/22 03:51 Labs: Abnormal Lab Results - Last 24 Hours (Table) 11/14/22 11/14/22 11/14/22 Range/Units 03:51 03:51 05:42 WBC 23.9 H 25.0 H (3.8-10.6) k/uL RBC 2.05 L 2.05 L (3.80-5.40) m/uL Hgb 6.9 L* D 6.8 L* (11.4-16.0) gm/dL Hct 21.6 L 21.9 L (34.0-46.0) % MCV 105.4 H 106.9 H (80.0-100.0) fL RDW 17.7 H 18.0 H (11.5-15.5) % Plt Count (150-450) k/uL Neutrophils # 21.5 H (1.3-7.7) k/uL Macrocytosis Marked A Marked A Sodium 134 L (137-145) mmol/L BUN 43 H (7-17) mg/dL Creatinine 7.66 H* (0.52-1.04) mg/dL Calcium 7.7 L (8.4-10.2) mg/dL Crossmatch 11/14/22 11/14/22 Range/Units 07:14 11:37 WBC 28.4 H (3.8-10.6) k/uL RBC 2.53 L (3.80-5.40) m/uL Hgb 8.3 L D (11.4-16.0) gm/dL Hct 26.0 L (34.0-46.0) % MCV 102.9 H (80.0-100.0) fL RDW 18.6 H (11.5-15.5) % Plt Count 457 H (150-450) k/uL Neutrophils # (1.3-7.7) k/uL Macrocytosis Sodium (137-145) mmol/L BUN (7-17) mg/dL Creatinine (0.52-1.04) mg/dL Calcium (8.4-10.2) mg/dL Crossmatch See Detail Microbiology - Last 24 Hours (Table) 11/13/22 03:45 Gram Stain - Preliminary Abdomen Wound Culture - Preliminary Assessment and Plan Assessment: 1. End-stage renal disease on peritoneal dialysis 2. PD peritonitis. Status post removal of PD catheter on 11/07/2022 and currently on hemodialysis via IJ permacath. Patient tolerating her treatment well. Final fluid culture from PD fluid is growing bacteroids. Initial culture had shown E. coli as outpatient. Stool was noted in the FRANCESCA drain and patient was taken back to or yesterday 11/12/2022. Patient had sigmoid colectomy with lysis of the lesions and descending ostomy for Brandon's procedure. 3. Small bowel obstruction status post laparoscopic lysis of adhesions and removal of PD catheter on 11/07/2022 4. Anemia of chronic disease 5. CK D mineral bone disorder 6. Hypertension, with CK D. 7. Hyperkalemia associated with end-stage renal disease and recent surgery, resolved with dialysis Plan: Hemodialysis on Saturday schedule Antibiotics as per ID.
[2022-11-14] MEDS: RENAPLEX D PO SCH ×2 (13:01→17:41)
[2022-11-14] MEDS: PIPERACILLIN-TAZOBACTAM 3.375 GM in SODIUM CHLORIDE 0.9% 100 ML IVPB SCH ×2 (13:05→23:19)
--- NOTE | 2022-11-14 14:32 | P.PN ---
Subjective Progress Note Date: 11/14/22 42-year-old female, history of hypertension, seizure disorder, chronic kidney disease/dialysis who presents to the emergency department for abdominal pain. Patient states that abdominal pain has been going on for 2-3 days. She receives peritoneal dialysis every 6 hours and was diagnosed with peritonitis 2 days ago by the individual who manages her peritoneal dialysis. She was started on vancomycin and a cephalosporin antibiotic that she cannot recall the name of. She been on antibiotics for 2 days. She puts the medications in her dialysis bags. States that she continues to have abdominal pain despite the antibiotics. Reports that she has not had a bowel movement in 2 days, and prior to that she only had runny stool. Also reports ongoing nausea and vomiting and feels dehydrated. Denies any fevers, chills, sore throat, cough, dyspnea, chest pain, palpitations, abdominal pain, nausea, vomiting, diarrhea, back pain, or headaches. -- Blood work completed reveals a WBC of 8.1, hemoglobin of 8.2, platelet count of 261, sodium 126, potassium 3.4, BUN/creatinine of 52/12.0, consistent with end-stage renal disease, lactic acid levels of 1.5 Computed tomography scan of the abdomen and pelvis obtained revealing a small bowel obstruction. She does also have moderate abdominopelvic ascites and enteritis. Patient admitted to medicine for further management of small bowel obstruction and hyponatremia. Consult placed for general surgery regarding the small bowel obstruction. Consult was also placed for nephrology given that she is a peritoneal dialysis patient. 11/04/2022 the patient is seen and evaluated in room at bedside; patient remains afebrile and is currently breathing comfortably on room air sat complaint of abdominal distention and some discomfort, NG has been placed in by surgery no vomiting has been reported and had denies any diarrhea. Patient did have white count of 8.68, creatinine is 13, repeat peritoneal fluid white count is down to 168, vancomycin and was 9.6 patient presented hospital abdominal pain cloudy peritoneal fluid did have a significant elevated white count in the peritoneal fluid likely secondary to PD catheter associated peritonitis patient did not have any evidence of abdominal infection at the site of insertion of the PD catheter he will need to cover for the gram-positive skin emelina to the likely pathogen underlying gram-negative infection less likely not excluded -patient also have evidence of ileus on the CT may be contributing some of her abdominal pain -patient has received a dose of vancomycin today as the patient vancomycin and was 9.6, the patient will continue with Fortaz with peritoneal dialysis daily, until the cultures are finalized 11/05. Patient seen and examined. States abdominal pain has improved 11/06. Patient seen and examined. Nephrology plan to switch patient to hemodialysis. NG tube in place. Still having abdominal pain 11/07. Patient seen and examined. WBC this morning 13.75, hemoglobin 7, platelet count 305. Patient undergoing hemodialysis today 11/08. Patient seen and examined. Patient underwent status post robotic- assisted laparoscopic lysis of adhesions and removal of peritoneal dialysis catheter for small bowel obstruction, bacterial peritonitis and right ovarian cyst abscess. Currently on clear liquid diet. Abdominal pain has improved 11/09. Patient seen and examined hemoglobin this morning is 6.7, will order 1 unit of packed red blood cell. Diet advanced to regular 11/10. Patient seen and examined. Denies abdominal pain. Tolerating regular diet 11/11. Patient seen and examined. ID waiting on catheter tip and OR cultures 11/12. Patient seen and examined. Tolerating diet. Patient has persistent leukocytosis, WBC 30.47. Repeat CT abdominal and pelvis done on 11/11 showed mild proximal small bowel dilatation with scattered small bowel wall thickening. Moderate abdominopelvic ascites with intraperitoneal dialysis catheter 11/13. Patient seen and examined. Patient underwent Exploratory laparotomy with lysis of adhesions, Sigmoid colectomy, Descending ostomy for Manuelito's procedure on 11/12 816. Patient seen and examined. patient received 1 unit of packed red blood cells this morning REVIEW OF SYSTEMS: CONSTITUTIONAL: No fever, no malaise,. CARDIOVASCULAR: No chest pain, no palpitations, no syncope. PULMONARY: No shortness of breath, no cough, GASTROINTESTINAL: As mentioned above NEUROLOGICAL: No headaches, no weakness, PHYSICAL EXAMINATION: GENERAL: The patient is alert and oriented x3, not in any acute distress. Well developed, well nourished. HEENT: Pupils are round and equally reacting to light. EOMI. No scleral icterus. No conjunctival pallor. Normocephalic, atraumatic. No pharyngeal erythema. No thyromegaly. CARDIOVASCULAR: S1 and S2 present. No murmurs, rubs, or gallops. PULMONARY: Chest is clear to auscultation, no wheezing or crackles. ABDOMEN: Soft, nontender, surgical incision seen, ostomy seen, drain in place MUSCULOSKELETAL: No joint swelling or deformity. EXTREMITIES: No cyanosis, clubbing, or pedal edema. NEUROLOGICAL: Gross neurological examination did not reveal any focal deficits. SKIN: No rashes. Assessment and plan Fecal peritonitis due to perforated sigmoid diverticulitis Small bowel obstruction Abdominal pain PD catheter associated peritonitis -Monitor vital signs status post robotic-assisted laparoscopic lysis of adhesions and removal of peritoneal dialysis catheter for small bowel obstruction, bacterial peritonitis and right ovarian cyst abscess on 11/07 Status post Exploratory laparotomy with lysis of adhesions, Sigmoid colectomy, Descending ostomy for Manuelito's procedure on 11/12 Continue wound care Continue IV Zosyn and Flagyl Surgery following ID following End-stage renal disease on peritoneal dialysis , switched to hemodialysis Anemia Hypokalemia; Hyponatremia; Continue hemodialysis per nephrology Patient received 1 unit of packed red blood cell today on 11/14 Hypertension; patient remains on metoprolol 50 mg twice a day along with lisinopril 20 mg twice a day Seizure disorder; patient currently not on anti- seizure medication Anemia; monitor CBC Patient received 1 unit of packed red blood cell today on 11/14 Labs and medication were reviewed.. Continue same treatment. Continue with symptomatic treatment. Resume home medication. Monitor labs and vitals. DVT and GI prophylaxis. Further recommendations as per clinical course of the patient Dictation was produced using [employer] dictation software. please excuse any grammatical, word or spelling errors. Objective - Vital Signs Vital signs: Vital Signs Temp 97.6 F 11/14/22 12:07 Pulse 87 11/14/22 13:00 Resp 18 11/14/22 13:00 BP 138/79 11/14/22 13:00 Pulse Ox 94 L 11/14/22 13:00 FiO2 Intake & Output 11/13/22 11/14/22 11/14/22 18:59 06:59 18:59 Intake Total 940 0 712 Output Total 1815 20 2300 Balance -300 -54 -9488 Weight 97.8 kg 97.8 kg Intake: IV 540 80 Lactated Ringers 1,000 ml 240 80 @ 20 mls/hr IV .Q24H [facility] Rx#:[id number] Piperacillin-Tazobactam 3 100 .375 gm In Sodium Chloride 0.9% 100 ml @ 25 mls/hr IVPB Q12H [facility] Rx# :[id number] metroNIDAZOLE-NS PMX 500 200 mg In Saline 1 100ml.bag @ 100 mls/hr IVPB Q8HR [facility] Rx#:[id number] Oral 100 0 50 Blood Product 282 Rc Pheresis As-3 Unit 282 [id number] Hemodialysis 300 300 Output: Drainage 15 20 RLQ FRANCESCA Drain 15 20 Urine 0 Hemodialysis 1800 2300 - Labs CBC & Chem 7: 11/14/22 11:37 11/14/22 03:51 Labs: Abnormal Lab Results - Last 24 Hours (Table) 11/14/22 11/14/22 11/14/22 Range/Units 03:51 03:51 05:42 WBC 23.9 H 25.0 H (3.8-10.6) k/uL RBC 2.05 L 2.05 L (3.80-5.40) m/uL Hgb 6.9 L* D 6.8 L* (11.4-16.0) gm/dL Hct 21.6 L 21.9 L (34.0-46.0) % MCV 105.4 H 106.9 H (80.0-100.0) fL RDW 17.7 H 18.0 H (11.5-15.5) % Plt Count (150-450) k/uL Neutrophils # 21.5 H (1.3-7.7) k/uL Macrocytosis Marked A Marked A Sodium 134 L (137-145) mmol/L BUN 43 H (7-17) mg/dL Creatinine 7.66 H* (0.52-1.04) mg/dL Calcium 7.7 L (8.4-10.2) mg/dL Crossmatch 11/14/22 11/14/22 Range/Units 07:14 11:37 WBC 28.4 H (3.8-10.6) k/uL RBC 2.53 L (3.80-5.40) m/uL Hgb 8.3 L D (11.4-16.0) gm/dL Hct 26.0 L (34.0-46.0) % MCV 102.9 H (80.0-100.0) fL RDW 18.6 H (11.5-15.5) % Plt Count 457 H (150-450) k/uL Neutrophils # (1.3-7.7) k/uL Macrocytosis Sodium (137-145) mmol/L BUN (7-17) mg/dL Creatinine (0.52-1.04) mg/dL Calcium (8.4-10.2) mg/dL Crossmatch See Detail Microbiology - Last 24 Hours (Table) 11/13/22 03:45 Gram Stain - Preliminary Abdomen Wound Culture - Preliminary
[2022-11-14] MEDS: HYDROmorphone 0.5 MG/0.5 ML SYRINGE IVP PRN (20:02)
--- NOTE | 2022-11-14 21:44 | P.PN ---
Subjective Progress Note Date: 11/14/22 CHIEF COMPLAINT: Abdominal pain HISTORY OF PRESENT ILLNESS: The patient is a 42-year-old female status post exploratory laparotomy, descending colostomy for perforated diverticulitis, a 15 2022. She is awake. Where possible Moderately improving from over 36,000 over 25,000. Mother and at bedside. She is in the intensive care unit. Dialysis schedule for Saturday. She is tolerating ice chips. Her pain is well-controlled. ROS: No fevers or chills. No shortness of breath. PHYSICAL EXAM: VITAL SIGNS: Reviewed CONSTITUTIONAL: Well developed and in mild distress. EYES: Conjuctivae without sclera icterus. Extraocular movements grossly intact. HEAD, EARS, NOSE, THROAT: Moist buccal mucosa. Head is atraumatic, normocephalic. Hears conversational speech. No nasal drainage. RESPIRATORY: Non-labored respirations and equal bilateral excursions. CARDIOVASCULAR: Palpable 2+ radial pulses. ABDOMEN: FRANCESCA serosanguineous. Incisional wound VAC system intact. MUSCULOSKELETAL: No gross deformity of the lower extremities noted. No clubbing. No cyanosis. SKIN: Good skin turgor. Well perfused. NEUROLOGIC: Cranial nerves II through XII grossly intact. No focal or l ateralizing signs. PSYCH: Appropriate affect. Alert and oriented to person, place and time. CLINICAL LABS: Reviewed. WBC elevated over 35,000 down 25,000. Hemoglobin down 6.9, now up to 8.3 after 1 unit of packed red blood cell. ASSESSMENT: 1. Perforated sigmoid diverticulitis 2. Small bowel obstruction 3. Sepsis 4. End-stage renal disease 5. Chronic anemia PLAN: 1. Antibiotic management per infectious disease. 2. Start clear liquid diet, renal 3. PICC line with antibiotics Objective - Vital Signs Vital signs: Vital Signs Temp 97.8 F 11/14/22 16:00 Pulse 80 11/14/22 17:00 Resp 14 11/14/22 17:00 BP 132/76 11/14/22 17:00 Pulse Ox 93 L 11/14/22 17:00 FiO2 Intake & Output 11/13/22 11/14/22 11/14/22 18:59 06:59 18:59 Intake Total 940 0 1127 Output Total 1815 20 2300 Balance -080 -59 -4008 Weight 97.8 kg 97.8 kg Intake: IV 540 420 Lactated Ringers 1,000 ml 240 220 @ 20 mls/hr IV .Q24H [facility] Rx#:[id number] Piperacillin-Tazobactam 3 100 100 .375 gm In Sodium Chloride 0.9% 100 ml @ 25 mls/hr IVPB Q12H [facility] Rx# :[id number] metroNIDAZOLE-NS PMX 500 200 100 mg In Saline 1 100ml.bag @ 100 mls/hr IVPB Q8HR [facility] Rx#:[id number] Oral 100 0 125 Blood Product 282 Rc Pheresis As-3 Unit 282 [id number] Hemodialysis 300 300 Output: Drainage 15 20 RLQ FRANCESCA Drain 15 20 Urine 0 Hemodialysis 1800 2300 - Labs CBC & Chem 7: 11/14/22 11:37 11/14/22 03:51 Labs: Abnormal Lab Results - Last 24 Hours (Table) 11/14/22 11/14/22 11/14/22 Range/Units 03:51 03:51 05:42 WBC 23.9 H 25.0 H (3.8-10.6) k/uL RBC 2.05 L 2.05 L (3.80-5.40) m/uL Hgb 6.9 L* D 6.8 L* (11.4-16.0) gm/dL Hct 21.6 L 21.9 L (34.0-46.0) % MCV 105.4 H 106.9 H (80.0-100.0) fL RDW 17.7 H 18.0 H (11.5-15.5) % Plt Count (150-450) k/uL Neutrophils # 21.5 H (1.3-7.7) k/uL Macrocytosis Marked A Marked A Sodium 134 L (137-145) mmol/L BUN 43 H (7-17) mg/dL Creatinine 7.66 H* (0.52-1.04) mg/dL Calcium 7.7 L (8.4-10.2) mg/dL Crossmatch 11/14/22 11/14/22 Range/Units 07:14 11:37 WBC 28.4 H (3.8-10.6) k/uL RBC 2.53 L (3.80-5.40) m/uL Hgb 8.3 L D (11.4-16.0) gm/dL Hct 26.0 L (34.0-46.0) % MCV 102.9 H (80.0-100.0) fL RDW 18.6 H (11.5-15.5) % Plt Count 457 H (150-450) k/uL Neutrophils # (1.3-7.7) k/uL Macrocytosis Sodium (137-145) mmol/L BUN (7-17) mg/dL Creatinine (0.52-1.04) mg/dL Calcium (8.4-10.2) mg/dL Crossmatch See Detail Microbiology - Last 24 Hours (Table) 11/13/22 03:45 Gram Stain - Preliminary Abdomen Wound Culture - Preliminary
[2022-11-15] MEDS: ACETAMINOPHEN TAB 500 MG TAB PO SCH ×5 (00:51→23:05)
[2022-11-15] MEDS: HYDROmorphone 1 MG/ML 1 ML SYRINGE IVP PRN ×5 (02:00→23:58)
[2022-11-15] MEDS: LACTATED RINGERS 1,000 ML IV SCH ×2 (02:02→23:06)
[2022-11-15 04:11] LABS: Anisocytosis Slight; Basophils # (A) 0.1 k/uL (0-0.2); Basophils % (A) 0 %; Eosinophils # (A) 0.2 k/uL (0-0.7); Eosinophils % (A) 1 %; HCT 23.8 % (34.0-46.0); HGB 7.6 gm/dL (11.4-16.0); Hypochromasia Moderate; Lymphocytes # (A) 1.1 k/uL (1.0-4.8); Lymphocytes % (A) 5 %; Macrocytosis Moderate; Mean Platelet Volume 9.3; Monocytes # (A) 0.7 k/uL (0-1.0); Monocytes % (A) 3 %; Neutrophils # (A) 18.5 k/uL (1.3-7.7); Neutrophils % (A) 89 %; Platelet Count 359 k/uL (150-450); Poikilocytosis Slight; RBC 2.31 m/uL (3.80-5.40); RDW 18.1 % (11.5-15.5); WBC 20.7 k/uL (3.8-10.6)
[2022-11-15 04:37] LABS: African American GFR (CKD) 10 (>60 ml/min/1.73 sqM); Anion Gap 13 mmol/L; Blood Urea Nitrogen 35 mg/dL (7-17); Calcium 8.1 mg/dL (8.4-10.2); Carbon Dioxide 25 mmol/L (22-30); Chloride 96 mmol/L (98-107); Glucose 95 mg/dL (74-99); Non-African American GFR(CKD) 8 (>60 ml/min/1.73 sqM); Potassium 4.1 mmol/L (3.5-5.1); Sodium 134 mmol/L (137-145)
[2022-11-15] MEDS: SEVELAMER 800 MG TAB PO SCH ×3 (07:05→17:37)
[2022-11-15] MEDS: metroNIDAZOLE-NS PMX 500 MG in SALINE 1 100ML.BAG IVPB SCH ×3 (08:31→23:06)
[2022-11-15] MEDS: PANTOPRAZOLE 40 MG/10 ML VIAL IV SCH (08:32)
[2022-11-15] MEDS: lisinopriL 10 MG TAB PO SCH ×2 (08:32→21:03)
[2022-11-15] MEDS: METOPROLOL TARTRATE 25 MG TAB PO SCH ×2 (08:32→21:02)
[2022-11-15] MEDS: ENOXAPARIN 30 MG/0.3 ML SYRINGE SQ SCH (08:32)
[2022-11-15] MEDS: SIMETHICONE 80 MG CHEWABLE PO SCH ×3 (08:33→21:03)
[2022-11-15] MEDS: RENAPLEX D PO SCH (08:35)
--- NOTE | 2022-11-15 11:05 | P.PN ---
Subjective Progress Note Date: 11/15/22 Principal diagnosis: Abdominal pain. Pulmonary consult dated 11/13/2022. 42-year-old female who was admitted back on November 02, for abdominal pain. She came into the emergency department with abdominal pain, going on for 2 or 3 days prior to admission. The patient apparently receives peritoneal dialysis every 6 hours, and was recently diagnosed with peritonitis. She was started on antibiotics, and is been in the hospital since the fourth. I was notified yesterday, by Dr. Terrazas, that the patient was needing surgery, and in the intensive care unit bed. She suspected a perforated sigmoid diverticuli, and the patient had a number of issues including renal failure, electrolyte disturbance, hypotension, etc. In addition, she was thought to be septic. The patient went to the operating room yesterday, and had an exploratory laparotomy, sigmoid colectomy, Brandon's pouch, abdominal washout, placement of the FRANCESCA drain, and placement of the wound VAC. She was successfully extubated in recovery, she is currently in the intensive care unit, room 258. She's current ly on 4 L of oxygen by nasal cannula. She's getting lactated Ringer's at 20 mL an hour. She continues on Zosyn and Flagyl. White count is 35.5, hemoglobin 9.6, hematocrit 30, and platelet count 367,000. Sodium 133, potassium 5.5, chlorides 98, CO2 16, anion gap 19, BUN 50, creatinine 8.34. Peritoneal fluid cultures are positive for Bacteroides. Progress note dated 11/14/2022. 42-year-old female, postop day #1, status post exploratory laparotomy with lysis of adhesions, sigmoid colectomy, Brandon's procedure, abdominal washout, removal of the FRANCESCA drain, placement of the FRANCESCA drain, and placement of a wound VAC, for fecal peritonitis and perforated sigmoid diverticulitis. The patient is seen today in room 258. She is currently undergoing hemodialysis. She is on 2 L of oxygen. The plan for hemodialysis today is removed 1.5 L of fluid. The patient is getting lactated Ringer's at 20 mL an hour. In addition, she'll receive 1 unit of PRBCs. She's currently on Zosyn and Flagyl. 3 years ago, before starting peritoneal dialysis, she was receiving hemodialysis. White count 25, hemoglobin 6.8, hematocrit 21.9, and platelet count normal. Sodium 134, potassium 4.4, chlorides 98, CO2 24, BUN 43, and creatinine 7.66. Peritoneal fluid was positive for Bacteroides. No chest x-ray today. Progress note dated 11/15/2022. 42-year-old female postop day #2, status post exploratory laparotomy, with lysis of adhesions, sigmoid colectomy, Brandon's procedure, among other things. The patient seems be doing reasonably well. She seen today in room 258. She's currently on 2 L of oxygen. She's getting lactated Ringer's at KVO. She had dialysis yesterday, and 1.5 L of fluid was removed. She's getting Zosyn and Flagyl. She has been stable overnight according to the nurses. White count was 20.7, hemoglobin 7.6, hematocrit 23.8, and platelet count 359,000. Sodium 134, potassium 4.1, chlorides 96, CO2 25, BUN 35, and creatinine 5.83. Objective - Vital Signs Vital signs: Vital Signs Temp 98.8 F 11/15/22 08:00 Pulse 79 11/15/22 09:00 Resp 10 L 11/15/22 09:00 BP 142/84 11/15/22 09:00 Pulse Ox 96 11/15/22 09:00 FiO2 Intake & Output 11/14/22 11/15/22 11/15/22 18:59 06:59 18:59 Intake Total 1127 240 360 Output Total 2300 30 0 Balance -1173 210 360 Weight 98.3 kg Intake: IV 420 240 360 Lactated Ringers 1,000 ml 220 240 60 @ 20 mls/hr IV .Q24H [facility] Rx#:[id number] Piperacillin-Tazobactam 3 100 100 .375 gm In Sodium Chloride 0.9% 100 ml @ 25 mls/hr IVPB Q12H [facility] Rx# :[id number] metroNIDAZOLE-NS PMX 500 100 200 mg In Saline 1 100ml.bag @ 100 mls/hr IVPB Q8HR [facility] Rx#:[id number] Oral 125 Blood Product 282 Rc Pheresis As-3 Unit 282 [id number] Hemodialysis 300 Output: Drainage 30 RLQ FRANCESCA Drain 30 Urine 0 0 Hemodialysis 2300 - Exam No acute distress, oriented 3. Currently on 2 L by nasal cannula. HEENT examination is grossly unremarkable. Neck supple. Full range of motion. No adenopathy thyromegaly or neck vein distention. Cardiovascular examination reveals regular rhythm rate. S1-S2 normal. No S3 or S4. No discernible murmur noted. Heart sounds are distant. Heart rate is 82 bpm. Lungs reveal mild scattered rhonchi. Breath sounds equal bilaterally. No wheezes. No crackles. Saturations are 96 %. Abdomen soft, but tender. No bowel sounds. Dressing is noted in place. Extremities are intact. No cyanosis clubbing or edema. Skin is without rash or lesion. Neurologic examination is brief but nonfocal. - Labs CBC & Chem 7: 11/15/22 03:59 11/15/22 03:59 Labs: Abnormal Lab Results - Last 24 Hours (Table) 11/14/22 11/15/22 11/15/22 Range/Units 11:37 03:59 03:59 WBC 28.4 H 20.7 H (3.8-10.6) k/uL RBC 2.53 L 2.31 L (3.80-5.40) m/uL Hgb 8.3 L D 7.6 L (11.4-16.0) gm/dL Hct 26.0 L 23.8 L (34.0-46.0) % MCV 102.9 H 103.0 H (80.0-100.0) fL RDW 18.6 H 18.1 H (11.5-15.5) % Plt Count 457 H (150-450) k/uL Neutrophils # 18.5 H (1.3-7.7) k/uL Sodium 134 L (137-145) mmol/L Chloride 96 L (98-107) mmol/L BUN 35 H (7-17) mg/dL Creatinine 5.83 H (0.52-1.04) mg/dL Calcium 8.1 L (8.4-10.2) mg/dL Microbiology - Last 24 Hours (Table) 11/13/22 03:45 Gram Stain - Preliminary Abdomen Wound Culture - Preliminary Assessment and Plan Assessment: Postop day #2, status post exploratory laparotomy with lysis of adhesions, sigmoid colectomy, Brandon's procedure, abdominal washout, removal of a FRANCESCA drain, placement of a FRANCESCA drain, and placement of a wound VAC, for fecal peritonitis, and perforated sigmoid diverticulitis. Peritoneal sepsis, secondary to Bacteroides species. History of hypertension. History of end-stage renal disease, previously on peritoneal dialysis, now on hemodialysis. History of seizure disorder. History of gout. Anemia of chronic disease. Previous history of tobacco use. History of anxiety. Plan: Plan dated 11/13/2022. The patient is seen today in room 258. She continues on Zosyn and Flagyl. Peritoneal cultures are positive for Bacteroides. The patient is postop day #0. She had an extensive procedure as noted above. Labs, x-rays, medications are reviewed. Prognosis is guarded. She's currently on 4 L of oxygen. We will continue to follow make recommendations along the way. She'll continue in the intensive care unit for the time being. Additional recommendations and suggestions are to follow. Prognosis is certainly guarded. Plan dated 11/14/2022. The patient is seen today in room 258. She's currently receiving hemodialysis. She did have hemodialysis prior to peritoneal dialysis, 3 years ago. The plan is to 1.5 L of fluid today. The patient's hemoglobin was less than 7 and she'll receive 1 unit of packed red blood cells. She's on 2 L of oxygen. Peritoneal fluid was positive for Bacteroides species. The patient is on Zosyn and Flagyl. Additional recommendations and suggestions are forthcoming. Prognosis is guarded. Plan dated 11/15/2022. The patient is again seen today in room 258. She seems to be reasonably stable. She is postoperative day #2. She had an extensive surgical procedure. The patient currently is on 2 L. She's getting lactated Ringer's at [facility]. She had hemodialysis yesterday, was 1.5 L of fluid removed. She continues on Zosyn and Flagyl, for her Bacteroides sepsis. The patient may be stable for transfer to the general medical floor, later today. Labs, x-rays, medications are reviewed. We will continue to follow. Prognosis is guarded. Time with Patient: Greater than 30
[2022-11-15] MEDS: PIPERACILLIN-TAZOBACTAM 3.375 GM in SODIUM CHLORIDE 0.9% 100 ML IVPB SCH ×3 (11:48→23:56)
--- NOTE | 2022-11-15 12:02 | P.PN ---
Subjective Patient is seen in follow-up for end-stage renal disease. PD catheter removed 11/07/2022. Now on hemodialysis. Patient was taken back to OR on 11/12/2022 due to stool noted in the FRANCESCA drain and persistent elevation of white cell count. Patient was noted to have bowel perforation. She had resection of a portion of the colon. Patient was trans ferred to the ICU. She is currently hemodynamically stable. Pain is fairly well controlled. Tolerated hemodialysis well yesterday Status post 1 unit packed RBCs yesterday. Hemoglobin 7.6 today Objective - Vital Signs Vital signs: Vital Signs Temp 98.8 F 11/15/22 08:00 Pulse 79 11/15/22 09:00 Resp 10 L 11/15/22 09:00 BP 142/84 11/15/22 09:00 Pulse Ox 96 11/15/22 09:00 FiO2 Intake & Output 11/14/22 11/15/22 11/15/22 18:59 06:59 18:59 Intake Total 1127 240 360 Output Total 2300 30 0 Balance -1173 210 360 Weight 98.3 kg Intake: IV 420 240 360 Lactated Ringers 1,000 ml 220 240 60 @ 20 mls/hr IV .Q24H [facility] Rx#:[id number] Piperacillin-Tazobactam 3 100 100 .375 gm In Sodium Chloride 0.9% 100 ml @ 25 mls/hr IVPB Q12H [facility] Rx# :[id number] metroNIDAZOLE-NS PMX 500 100 200 mg In Saline 1 100ml.bag @ 100 mls/hr IVPB Q8HR [facility] Rx#:[id number] Oral 125 Blood Product 282 Rc Pheresis As-3 Unit 282 [id number] Hemodialysis 300 Output: Drainage 30 RLQ FRANCESCA Drain 30 Urine 0 0 Hemodialysis 2300 - Exam Patient is awake, comfortable, in no acute distress Alert oriented 3 Examination of the heart S1 and S2 Examination of the lungs bilateral breath sounds are heard Abdomen is soft, tenderness noted Examination of lower extremities shows no significant edema 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 - Labs CBC & Chem 7: 11/15/22 03:59 11/15/22 03:59 Labs: Abnormal Lab Results - Last 24 Hours (Table) 11/14/22 11/15/22 11/15/22 Range/Units 11:37 03:59 03:59 WBC 28.4 H 20.7 H (3.8-10.6) k/uL RBC 2.53 L 2.31 L (3.80-5.40) m/uL Hgb 8.3 L D 7.6 L (11.4-16.0) gm/dL Hct 26.0 L 23.8 L (34.0-46.0) % MCV 102.9 H 103.0 H (80.0-100.0) fL RDW 18.6 H 18.1 H (11.5-15.5) % Plt Count 457 H (150-450) k/uL Neutrophils # 18.5 H (1.3-7.7) k/uL Sodium 134 L (137-145) mmol/L Chloride 96 L (98-107) mmol/L BUN 35 H (7-17) mg/dL Creatinine 5.83 H (0.52-1.04) mg/dL Calcium 8.1 L (8.4-10.2) mg/dL Microbiology - Last 24 Hours (Table) 11/13/22 03:45 Gram Stain - Preliminary Abdomen Wound Culture - Preliminary Assessment and Plan Assessment: 1. End-stage renal disease on peritoneal dialysis 2. PD peritonitis. Status post removal of PD catheter on 11/07/2022 and currently on hemodialysis via IJ permacath. Patient tolerating her treatment well. Final fluid culture from PD fluid is growing bacteroids. Initial culture had shown E. coli as outpatient. Stool was noted in the FRANCESCA drain and patient was taken back to or yesterday 11/12/2022. Patient had sigmoid colectomy with lysis of the lesions and descending ostomy for Brandon's procedure. 3. Small bowel obstruction status post laparoscopic lysis of adhesions and removal of PD catheter on 11/07/2022 4. Anemia of chronic disease 5. CK D mineral bone disorder 6. Hypertension, with CK D. 7. Hyperkalemia associated with end-stage renal disease and recent surgery, resolved with dialysis Plan: Hemodialysis on Saturday schedule Antibiotics as per ID.
--- NOTE | 2022-11-15 12:56 | P.PN ---
Subjective Progress Note Date: 11/15/22 42-year-old female, history of hypertension, seizure disorder, chronic kidney disease/dialysis who presents to the emergency department for abdominal pain. Patient states that abdominal pain has been going on for 2-3 days. She receives peritoneal dialysis every 6 hours and was diagnosed with peritonitis 2 days ago by the individual who manages her peritoneal dialysis. She was started on vancomycin and a cephalosporin antibiotic that she cannot recall the name of. She been on antibiotics for 2 days. She puts the medications in her dialysis bags. States that she continues to have abdominal pain despite the antibiotics. Reports that she has not had a bowel movement in 2 days, and prior to that she only had runny stool. Also reports ongoing nausea and vomiting and feels dehydrated. Denies any fevers, chills, sore throat, cough, dyspnea, chest pain, palpitations, abdominal pain, nausea, vomiting, diarrhea, back pain, or headaches. -- Blood work completed reveals a WBC of 8.1, hemoglobin of 8.2, platelet count of 261, sodium 126, potassium 3.4, BUN/creatinine of 52/12.0, consistent with end-stage renal disease, lactic acid levels of 1.5 Computed tomography scan of the abdomen and pelvis obtained revealing a small bowel obstruction. She does also have moderate abdominopelvic ascites and enteritis. Patient admitted to medicine for further management of small bowel obstruction and hyponatremia. Consult placed for general surgery regarding the small bowel obstruction. Consult was also placed for nephrology given that she is a peritoneal dialysis patient. 11/04/2022 the patient is seen and evaluated in room at bedside; patient remains afebrile and is currently breathing comfortably on room air sat complaint of abdominal distention and some discomfort, NG has been placed in by surgery no vomiting has been reported and had denies any diarrhea. Patient did have white count of 8.68, creatinine is 13, repeat peritoneal fluid white count is down to 168, vancomycin and was 9.6 patient presented hospital abdominal pain cloudy peritoneal fluid did have a significant elevated white count in the peritoneal fluid likely secondary to PD catheter associated peritonitis patient did not have any evidence of abdominal infection at the site of insertion of the PD catheter he will need to cover for the gram-positive skin emelina to the likely pathogen underlying gram-negative infection less likely not excluded -patient also have evidence of ileus on the CT may be contributing some of her abdominal pain -patient has received a dose of vancomycin today as the patient vancomycin and was 9.6, the patient will continue with Fortaz with peritoneal dialysis daily, until the cultures are finalized 11/05. Patient seen and examined. States abdominal pain has improved 11/06. Patient seen and examined. Nephrology plan to switch patient to hemodialysis. NG tube in place. Still having abdominal pain 11/07. Patient seen and examined. WBC this morning 13.75, hemoglobin 7, platelet count 305. Patient undergoing hemodialysis today 11/08. Patient seen and examined. Patient underwent status post robotic- assisted laparoscopic lysis of adhesions and removal of peritoneal dialysis catheter for small bowel obstruction, bacterial peritonitis and right ovarian cyst abscess. Currently on clear liquid diet. Abdominal pain has improved 11/09. Patient seen and examined hemoglobin this morning is 6.7, will order 1 unit of packed red blood cell. Diet advanced to regular 11/10. Patient seen and examined. Denies abdominal pain. Tolerating regular diet 11/11. Patient seen and examined. ID waiting on catheter tip and OR cultures 11/12. Patient seen and examined. Tolerating diet. Patient has persistent leukocytosis, WBC 30.47. Repeat CT abdominal and pelvis done on 11/11 showed mild proximal small bowel dilatation with scattered small bowel wall thickening. Moderate abdominopelvic ascites with intraperitoneal dialysis catheter 11/13. Patient seen and examined. Patient underwent Exploratory laparotomy with lysis of adhesions, Sigmoid colectomy, Descending ostomy for Manuelito's procedure on 11/12 816. Patient seen and examined. patient received 1 unit of packed red blood cells this morning 11/15. Patient seen and examined. White count this morning is 20.7, hemoglobin 7.6. Sodium 134, potassium 4.1. Patient had abdominal pain this morning, otherwise states she feels better REVIEW OF SYSTEMS: CONSTITUTIONAL: No fever, no malaise,. CARDIOVASCULAR: No chest pain, no palpitations, no syncope. PULMONARY: No shortness of breath, no cough, GASTROINTESTINAL: As mentioned above NEUROLOGICAL: No headaches, no weakness, PHYSICAL EXAMINATION: GENERAL: The patient is alert and oriented x3, not in any acute distress. Well developed, well nourished. HEENT: Pupils are round and equally reacting to light. EOMI. No scleral icterus. No conjunctival pallor. Normocephalic, atraumatic. No pharyngeal erythema. No thyromegaly. CARDIOVASCULAR: S1 and S2 present. No murmurs, rubs, or gallops. PULMONARY: Chest is clear to auscultation, no wheezing or crackles. ABDOMEN: Soft, nontender, surgical incision seen, ostomy seen, drain in place MUSCULOSKELETAL: No joint swelling or deformity. EXTREMITIES: No cyanosis, clubbing, or pedal edema. NEUROLOGICAL: Gross neurological examination did not reveal any focal deficits. SKIN: No rashes. Assessment and plan Fecal peritonitis due to perforated sigmoid diverticulitis Small bowel obstruction Abdominal pain PD catheter associated peritonitis -Monitor vital signs status post robotic-assisted laparoscopic lysis of adhesions and removal of peritoneal dialysis catheter for small bowel obstruction, bacterial peritonitis and right ovarian cyst abscess on 11/07 Status post Exploratory laparotomy with lysis of adhesions, Sigmoid colectomy, Descending ostomy for Manuelito's procedure on 11/12 Continue wound care Continue IV Zosyn and Flagyl Surgery following ID following Possible transfer out of ICU End-stage renal disease on peritoneal dialysis , switched to hemodialysis Anemia Hypokalemia; Hyponatremia; Continue hemodialysis per nephrology Hypertension; patient remains on metoprolol 50 mg twice a day along with lisinopril 20 mg twice a day Seizure disorder; patient currently not on anti- seizure medication Anemia; monitor CBC Labs and medication were reviewed.. Continue same treatment. Continue with symptomatic treatment. Resume home medication. Monitor labs and vitals. DVT and GI prophylaxis. Further recommendations as per clinical course of the patient Dictation was produced using [employer] dictation software. please excuse any grammatical, word or spelling errors. Objective - Vital Signs Vital signs: Vital Signs Temp 98.8 F 11/15/22 08:00 Pulse 79 11/15/22 09:00 Resp 10 L 11/15/22 09:00 BP 142/84 11/15/22 09:00 Pulse Ox 96 11/15/22 09:00 FiO2 Intake & Output 11/14/22 11/15/22 11/15/22 18:59 06:59 18:59 Intake Total 1127 240 360 Output Total 2300 30 0 Balance -1173 210 360 Weight 98.3 kg Intake: IV 420 240 360 Lactated Ringers 1,000 ml 220 240 60 @ 20 mls/hr IV .Q24H [facility] Rx#:[id number] Piperacillin-Tazobactam 3 100 100 .375 gm In Sodium Chloride 0.9% 100 ml @ 25 mls/hr IVPB Q12H [facility] Rx# :[id number] metroNIDAZOLE-NS PMX 500 100 200 mg In Saline 1 100ml.bag @ 100 mls/hr IVPB Q8HR [facility] Rx#:[id number] Oral 125 Blood Product 282 Rc Pheresis As-3 Unit 282 [id number] Hemodialysis 300 Output: Drainage 30 RLQ FRANCESCA Drain 30 Urine 0 0 Hemodialysis 2300 - Labs CBC & Chem 7: 11/15/22 03:59 11/15/22 03:59 Labs: Abnormal Lab Results - Last 24 Hours (Table) 11/15/22 11/15/22 Range/Units 03:59 03:59 WBC 20.7 H (3.8-10.6) k/uL RBC 2.31 L (3.80-5.40) m/uL Hgb 7.6 L (11.4-16.0) gm/dL Hct 23.8 L (34.0-46.0) % MCV 103.0 H (80.0-100.0) fL RDW 18.1 H (11.5-15.5) % Neutrophils # 18.5 H (1.3-7.7) k/uL Sodium 134 L (137-145) mmol/L Chloride 96 L (98-107) mmol/L BUN 35 H (7-17) mg/dL Creatinine 5.83 H (0.52-1.04) mg/dL Calcium 8.1 L (8.4-10.2) mg/dL Microbiology - Last 24 Hours (Table) 11/13/22 03:45 Gram Stain - Preliminary Abdomen Wound Culture - Preliminary
--- NOTE | 2022-11-15 16:16 | P.PN ---
Subjective Progress Note Date: 11/15/22 CHIEF COMPLAINT: Abdominal pain HISTORY OF PRESENT ILLNESS: The patient is a 42-year-old female status post exploratory laparotomy, descending colostomy for perforated diverticulitis, 11/13/2022. and mother at bedside. She is in the ICU but downgraded to MedSurg. She had a large bowel movement and her ostomy. Her pain is well- controlled. She reports low appetite but tolerating clear liquid diet. ROS: No fevers or chills. No shortness of breath. PHYSICAL EXAM: VITAL SIGNS: Reviewed CONSTITUTIONAL: Well developed and in mild distress. EYES: Conjuctivae without sclera icterus. Extraocular movements grossly intact. HEAD, EARS, NOSE, THROAT: Moist buccal mucosa. Head is atraumatic, normocephalic. Hears conversational speech. No nasal drainage. RESPIRATORY: Non-labored respirations and equal bilateral excursions. CARDIOVASCULAR: Palpable 2+ radial pulses. ABDOMEN: FRANCESCA serosanguineous. Incisional wound VAC system intact. Moderate soft brown stool in ostomy MUSCULOSKELETAL: No gross deformity of the lower extremities noted. No clubbing. No cyanosis. SKIN: Good skin turgor. Well perfused. NEUROLOGIC: Cranial nerves II through XII grossly intact. No focal or later alizing signs. PSYCH: Appropriate affect. Alert and oriented to person, place and time. CLINICAL LABS: Reviewed. WBC elevated over 35,000 down 20,000. ASSESSMENT: 1. Perforated sigmoid diverticulitis 2. Small bowel obstruction 3. Sepsis 4. End-stage renal disease 5. Chronic anemia PLAN: 1. Recommend ostomy teaching 2. Home healthcare referral 3. PT OT consultation for rehabilitation status 4. Advance diet to low fiber renal 5. Overall projected surgical care reviewed including 4 weeks of recovery through 12/14/2022. Earliest reversal of ostomy 02/13/2023 Objective - Vital Signs Vital signs: Vital Signs Temp 98.8 F 11/15/22 08:00 Pulse 79 11/15/22 09:00 Resp 10 L 11/15/22 09:00 BP 142/84 11/15/22 09:00 Pulse Ox 96 11/15/22 09:00 FiO2 Intake & Output 11/14/22 11/15/22 11/15/22 18:59 06:59 18:59 Intake Total 1127 240 360 Output Total 2300 30 0 Balance -1173 210 360 Weight 98.3 kg Intake: IV 420 240 360 Lactated Ringers 1,000 ml 220 240 60 @ 20 mls/hr IV .Q24H [facility] Rx#:[id number] Piperacillin-Tazobactam 3 100 100 .375 gm In Sodium Chloride 0.9% 100 ml @ 25 mls/hr IVPB Q12H [facility] Rx# :[id number] metroNIDAZOLE-NS PMX 500 100 200 mg In Saline 1 100ml.bag @ 100 mls/hr IVPB Q8HR [facility] Rx#:[id number] Oral 125 Blood Product 282 Rc Pheresis As-3 Unit 282 [id number] Hemodialysis 300 Output: Drainage 30 RLQ FRANCESCA Drain 30 Urine 0 0 Hemodialysis 2300 - Labs CBC & Chem 7: 11/15/22 03:59 11/15/22 03:59 Labs: Abnormal Lab Results - Last 24 Hours (Table) 11/15/22 11/15/22 Range/Units 03:59 03:59 WBC 20.7 H (3.8-10.6) k/uL RBC 2.31 L (3.80-5.40) m/uL Hgb 7.6 L (11.4-16.0) gm/dL Hct 23.8 L (34.0-46.0) % MCV 103.0 H (80.0-100.0) fL RDW 18.1 H (11.5-15.5) % Neutrophils # 18.5 H (1.3-7.7) k/uL Sodium 134 L (137-145) mmol/L Chloride 96 L (98-107) mmol/L BUN 35 H (7-17) mg/dL Creatinine 5.83 H (0.52-1.04) mg/dL Calcium 8.1 L (8.4-10.2) mg/dL Microbiology - Last 24 Hours (Table) 11/13/22 03:45 Anaerobic Culture - Preliminary Abdomen 11/13/22 03:45 Gram Stain - Final Abdomen Wound Culture - Final
--- NOTE | 2022-11-15 17:45 | P.PN ---
Subjective Progress Note Date: 11/14/22 Principal diagnosis: PD catheter associated peritonitis Patient is a 42-year-old female with a past medical history negative for hypertension seizure disorder history of end-stage renal disease on peritoneal dialysis since December 2018 did have 1 previous episode of infection treated with antibiotics patient started having a problem with abdominal pain that started on Saturday that is about 4 days before presentation to the hospital, patient has been diagnosed with peritonitis also have CT abdominal pelvis suggestive of ileus.Patient is status post laparoscopic lysis of adhesion removal of dialysis catheter and drainage of the abscess on 11/07/2022. Patient was taken to the OR late 11/12/2022 status post laparotomy and evidence of perforated sigmoid diverticulitis status post sigmoid colectomy and an ostomy on today's evaluation that is 11/14/2022 patient is afebrile, the patient is breathing comfortably on 2 L nasal cannula oxygen to be denies having any chest pain shortness of breath or cough the beat abdominal pain has decreased intensity no nausea no vomiting. Patient white count is down to 28,000, hemoglobin is 8 point 3 repeat abdominal cultures currently pending Objective - Vital Signs Vital signs: Vital Signs Temp 97.6 F 11/14/22 12:07 Pulse 84 11/14/22 12:07 Resp 17 11/14/22 12:07 BP 118/65 11/14/22 12:07 Pulse Ox 94 L 11/14/22 12:01 FiO2 Intake & Output 11/13/22 11/14/22 11/14/22 18:59 06:59 18:59 Intake Total 940 0 712 Output Total 1815 20 2300 [facility] -[id number] [id number] [id number] Weight 97.8 kg 97.8 kg Intake: IV 540 80 Lactated Ringers 1,000 ml 240 80 @ 20 mls/hr IV .Q24H [facility] Rx#:[id number] Piperacillin-Tazobactam 3 100 .375 gm In Sodium Chloride 0.9% 100 ml @ 25 mls/hr IVPB Q12H [facility] Rx# :[id number] metroNIDAZOLE-NS PMX 500 200 mg In Saline 1 100ml.bag @ 100 mls/hr IVPB Q8HR [facility] Rx#:[id number] Oral 100 0 50 Blood Product 282 Rc Pheresis As-3 Unit 282 [id number] Hemodialysis 300 300 Output: Drainage 15 20 RLQ FRANCESCA Drain 15 20 Urine 0 Hemodialysis 1800 2300 - Exam GENERAL DESCRIPTION: Middle-aged female lying in bed in no distress RESPIRATORY SYSTEM: Unlabored breathing , decreased breath sounds at bases HEART: S1 S2 regular rate and rhythm , ABDOMEN: Soft , mild abdominal distention and tenderness EXTREMITIES: No edema feet - Labs CBC & Chem 7: 11/15/22 03:59 11/15/22 03:59 Labs: Abnormal Lab Results - Last 24 Hours (Table) 11/14/22 11/14/22 11/14/22 Range/Units 03:51 03:51 05:42 WBC 23.9 H 25.0 H (3.8-10.6) k/uL RBC 2.05 L 2.05 L (3.80-5.40) m/uL Hgb 6.9 L* D 6.8 L* (11.4-16.0) gm/dL Hct 21.6 L 21.9 L (34.0-46.0) % MCV 105.4 H 106.9 H (80.0-100.0) fL RDW 17.7 H 18.0 H (11.5-15.5) % Plt Count (150-450) k/uL Neutrophils # 21.5 H (1.3-7.7) k/uL Macrocytosis Marked A Marked A Sodium 134 L (137-145) mmol/L BUN 43 H (7-17) mg/dL Creatinine 7.66 H* (0.52-1.04) mg/dL Calcium 7.7 L (8.4-10.2) mg/dL Crossmatch 11/14/22 11/14/22 Range/Units 07:14 11:37 WBC 28.4 H (3.8-10.6) k/uL RBC 2.53 L (3.80-5.40) m/uL Hgb 8.3 L D (11.4-16.0) gm/dL Hct 26.0 L (34.0-46.0) % MCV 102.9 H (80.0-100.0) fL RDW 18.6 H (11.5-15.5) % Plt Count 457 H (150-450) k/uL Neutrophils # (1.3-7.7) k/uL Macrocytosis Sodium (137-145) mmol/L BUN (7-17) mg/dL Creatinine (0.52-1.04) mg/dL Calcium (8.4-10.2) mg/dL Crossmatch See Detail Microbiology - Last 24 Hours (Table) 11/13/22 03:45 Gram Stain - Preliminary Abdomen Wound Culture - Preliminary Assessment and Plan (1) Peritonitis associated with continuous ambulatory peritoneal dialysis Current Visit: Yes Status: Acute Code(s): T80.89XA - OTH COMP FOL INFUSION, TRANSFUSE AND THERAPUTC INJECT, INIT; K65.9 - PERITONITIS, UNSPECIFIED; Z99.2 - DEPENDENCE ON RENAL DIALYSIS SNOMED Code(s): 589866149 Plan: 1patient presented hospital abdominal pain cloudy peritoneal fluid did have a significant elevated white in the peritoneal fluid likely secondary to PD catheter associated peritonitis patient did not have any evidence of abdominal infection at the site of insertion of the PD catheter patient also have evidence of ileus on the CT may be contributing some of her abdominal pain, patient did have a small bowel follow-through, did show delayed transit of contrast through the bowel with no evidence of small bowel obstruction 2-patient is status post laparoscopic lysis of adhesion removal of the dialysis catheter and drainage of the abscess abdominal cultures currently growing anaerobic gram-negative bacilli 3patient wasnoticed to have worsening of her white count and the patient was noticed to have more abdominal tenderness , patient did have evidence of perforated sigmoid colitis status post sigmoid colectomy and diverting colostomy along with drainage of the abscess cultures currently pending 4-we will continue the patient on Zosyn and monitor clinical course closely Dictation was produced using [employer] dictation software. please excuse any grammatical, word or spelling errors. Time with Patient: Less than 30
--- NOTE | 2022-11-15 17:46 | P.PN ---
Subjective Progress Note Date: 11/15/22 Principal diagnosis: PD catheter associated peritonitis Patient is a 42-year-old female with a past medical history negative for hypertension seizure disorder history of end-stage renal disease on peritoneal dialysis since December 2018 did have 1 previous episode of infection treated with antibiotics patient started having a problem with abdominal pain that started on Saturday that is about 4 days before presentation to the hospital, patient has been diagnosed with peritonitis also have CT abdominal pelvis suggestive of ileus.Patient is status post laparoscopic lysis of adhesion removal of dialysis catheter and drainage of the abscess on 11/07/2022. Patient was taken to the OR late 11/12/2022 status post laparotomy and evidence of perforated sigmoid diverticulitis status post sigmoid colectomy and an ostomy on today's evaluation that is 11/15/2022 the patient denies having any fever or any chills patient is breathing comfortably on 2 L nasal cannula oxygen patient denies having any chest pain shortness with cough abdominal pain has decreased in intensity no nausea vomiting. Patient white count is down to 20,000 creatinine is 5.8 3 repeat abdominal cultu res currently pending Objective - Vital Signs Vital signs: Vital Signs Temp 98.8 F 11/15/22 08:00 Pulse 79 11/15/22 09:00 Resp 10 L 11/15/22 09:00 BP 142/84 11/15/22 09:00 Pulse Ox 96 11/15/22 09:00 FiO2 Intake & Output 11/14/22 11/15/22 11/15/22 18:59 06:59 18:59 Intake Total 1127 240 360 Output Total 2300 30 0 Balance -1173 210 360 Weight 98.3 kg Intake: IV 420 240 360 Lactated Ringers 1,000 ml 220 240 60 @ 20 mls/hr IV .Q24H [facility] Rx#:[id number] Piperacillin-Tazobactam 3 100 100 .375 gm In Sodium Chloride 0.9% 100 ml @ 25 mls/hr IVPB Q12H [facility] Rx# :[id number] metroNIDAZOLE-NS PMX 500 100 200 mg In Saline 1 100ml.bag @ 100 mls/hr IVPB Q8HR [facility] Rx#:[id number] Oral 125 Blood Product 282 Rc Pheresis As-3 Unit 282 [id number] Hemodialysis 300 Output: Drainage 30 RLQ FRANCESCA Drain 30 Urine 0 0 Hemodialysis 2300 - Exam GENERAL DESCRIPTION: Middle-aged female lying in bed in no distress RESPIRATORY SYSTEM: Unlabored breathing , decreased breath sounds at bases HEART: S1 S2 regular rate and rhythm , ABDOMEN: Soft , mild abdominal distention and tenderness EXTREMITIES: No edema feet - Labs CBC & Chem 7: 11/15/22 03:59 11/15/22 03:59 Labs: Abnormal Lab Results - Last 24 Hours (Table) 11/15/22 11/15/22 Range/Units 03:59 03:59 WBC 20.7 H (3.8-10.6) k/uL RBC 2.31 L (3.80-5.40) m/uL Hgb 7.6 L (11.4-16.0) gm/dL Hct 23.8 L (34.0-46.0) % MCV 103.0 H (80.0-100.0) fL RDW 18.1 H (11.5-15.5) % Neutrophils # 18.5 H (1.3-7.7) k/uL Sodium 134 L (137-145) mmol/L Chloride 96 L (98-107) mmol/L BUN 35 H (7-17) mg/dL Creatinine 5.83 H (0.52-1.04) mg/dL Calcium 8.1 L (8.4-10.2) mg/dL Microbiology - Last 24 Hours (Table) 11/13/22 03:45 Gram Stain - Preliminary Abdomen Wound Culture - Preliminary Assessment and Plan (1) Peritonitis associated with continuous ambulatory peritoneal dialysis Current Visit: Yes Status: Acute Code(s): T80.89XA - OTH COMP FOL INFUSION, TRANSFUSE AND THERAPUTC INJECT, INIT; K65.9 - PERITONITIS, UNSPECIFIED; Z99.2 - DEPENDENCE ON RENAL DIALYSIS SNOMED Code(s): 596730837 Plan: 1patient presented hospital abdominal pain cloudy peritoneal fluid did have a significant elevated white in the peritoneal fluid likely secondary to PD catheter associated peritonitis patient did not have any evidence of abdominal infection at the site of insertion of the PD catheter patient also have evidence of ileus on the CT may be contributing some of her abdominal pain, patient did have a small bowel follow-through, did show delayed transit of contrast through the bowel with no evidence of small bowel obstruction 2-patient is status post laparoscopic lysis of adhesion removal of the dialysis catheter and drainage of the abscess abdominal cultures currently growing anaerobic gram-negative bacilli 3patient wasnoticed to have worsening of her white count and the patient was noticed to have more abdominal tenderness , patient did have evidence of perforated sigmoid colitis status post sigmoid colectomy and diverting colostomy along with drainage of the abscess cultures currently pending 4-Patient is slowly clinically proving the patient white count is trending down abdominal cultures currently pending patient will continue on Zosyn monitor clinical course closely mother at the bedside questions concern answered Dictation was produced using [employer] dictation software. please excuse any grammatical, word or spelling errors. Time with Patient: Less than 30
[2022-11-16] MEDS: HYDROmorphone 1 MG/ML 1 ML SYRINGE IVP PRN ×2 (03:46→23:50)
[2022-11-16 04:42] LABS: Anion Gap 18 mmol/L; Blood Urea Nitrogen 55 mg/dL (7-17); Carbon Dioxide 19 mmol/L (22-30); Chloride 96 mmol/L (98-107); Glucose 86 mg/dL (74-99); Potassium 4.1 mmol/L (3.5-5.1); Sodium 133 mmol/L (137-145)
[2022-11-16 04:47] LABS: African American GFR (CKD) 7 (>60 ml/min/1.73 sqM); Non-African American GFR(CKD) 6 (>60 ml/min/1.73 sqM)
[2022-11-16 04:59] LABS: Anisocytosis Slight; HCT 23.5 % (34.0-46.0); HGB 7.5 gm/dL (11.4-16.0); Hypochromasia Moderate; MCHC 31.9 g/dL (31.0-37.0); MCV 103.2 fL (80.0-100.0); Macrocytosis Moderate; Mean Platelet Volume 8.9; Platelet Count 422 k/uL (150-450); Poikilocytosis Slight; RBC 2.27 m/uL (3.80-5.40); RDW 17.9 % (11.5-15.5); WBC 20.2 k/uL (3.8-10.6)
[2022-11-16] MEDS: ACETAMINOPHEN TAB 500 MG TAB PO SCH ×4 (06:45→23:50)
[2022-11-16] MEDS: SEVELAMER 800 MG TAB PO SCH ×3 (07:47→17:05)
[2022-11-16] MEDS: ENOXAPARIN 30 MG/0.3 ML SYRINGE SQ SCH (09:55)
--- NOTE | 2022-11-16 09:59 | P.PN ---
Subjective Progress Note Date: 11/16/22 Principal diagnosis: Abdominal pain. Pulmonary consult dated 11/13/2022. 42-year-old female who was admitted back on November 02, for abdominal pain. She came into the emergency department with abdominal pain, going on for 2 or 3 days prior to admission. The patient apparently receives peritoneal dialysis every 6 hours, and was recently diagnosed with peritonitis. She was started on antibiotics, and is been in the hospital since the fourth. I was notified yesterday, by Dr. Terrazas, that the patient was needing surgery, and in the intensive care unit bed. She suspected a perforated sigmoid diverticuli, and the patient had a number of issues including renal failure, electrolyte disturbance, hypotension, etc. In addition, she was thought to be septic. The patient went to the operating room yesterday, and had an exploratory laparotomy, sigmoid colectomy, Brandon's pouch, abdominal washout, placement of the FRANCESCA drain, and placement of the wound VAC. She was successfully extubated in recovery, she is currently in the intensive care unit, room 258. She's current ly on 4 L of oxygen by nasal cannula. She's getting lactated Ringer's at 20 mL an hour. She continues on Zosyn and Flagyl. White count is 35.5, hemoglobin 9.6, hematocrit 30, and platelet count 367,000. Sodium 133, potassium 5.5, chlorides 98, CO2 16, anion gap 19, BUN 50, creatinine 8.34. Peritoneal fluid cultures are positive for Bacteroides. Progress note dated 11/14/2022. 42-year-old female, postop day #1, status post exploratory laparotomy with lysis of adhesions, sigmoid colectomy, Brandon's procedure, abdominal washout, removal of the FRANCESCA drain, placement of the FRANCESCA drain, and placement of a wound VAC, for fecal peritonitis and perforated sigmoid diverticulitis. The patient is seen today in room 258. She is currently undergoing hemodialysis. She is on 2 L of oxygen. The plan for hemodialysis today is removed 1.5 L of fluid. The patient is getting lactated Ringer's at 20 mL an hour. In addition, she'll receive 1 unit of PRBCs. She's currently on Zosyn and Flagyl. 3 years ago, before starting peritoneal dialysis, she was receiving hemodialysis. White count 25, hemoglobin 6.8, hematocrit 21.9, and platelet count normal. Sodium 134, potassium 4.4, chlorides 98, CO2 24, BUN 43, and creatinine 7.66. Peritoneal fluid was positive for Bacteroides. No chest x-ray today. Progress note dated 11/15/2022. 42-year-old female postop day #2, status post exploratory laparotomy, with lysis of adhesions, sigmoid colectomy, Brandon's procedure, among other things. The patient seems be doing reasonably well. She seen today in room 258. She's currently on 2 L of oxygen. She's getting lactated Ringer's at KVO. She had dialysis yesterday, and 1.5 L of fluid was removed. She's getting Zosyn and Flagyl. She has been stable overnight according to the nurses. White count was 20.7, hemoglobin 7.6, hematocrit 23.8, and platelet count 359,000. Sodium 134, potassium 4.1, chlorides 96, CO2 25, BUN 35, and creatinine 5.83. Progress note dated 11/16/2022. 42-year-old female postop day #3, status post exploratory laparotomy. Currently, the patient is seen today in room 258. She is on 2 L of oxygen, saline at KVO, and is scheduled to have hemodialysis today. She continues on Zosyn and Flagyl. Labs today include a white count 20.2, hemoglobin 7.5, hematocrit 23.5, and a normal platelet count. Sodium 133, potassium 4.1, chlorides 96, CO2 19, anion gap 18, BUN 55, and creatinine 7.72. Peritoneal fluid cultures continued to show Bacteroides. No recent chest x-ray. Objective - Vital Signs Vital signs: Vital Signs Temp 98.2 F 11/16/22 02:00 Pulse 76 11/16/22 02:00 Resp 14 11/16/22 02:00 BP 147/82 11/16/22 02:00 Pulse Ox 94 L 11/16/22 02:00 FiO2 Intake & Output 11/15/22 11/16/22 11/16/22 18:59 06:59 18:59 Intake Total 740 400 Output Total 0 320 Balance 740 80 Weight 98.6 kg Intake: IV 740 400 Lactated Ringers 1,000 ml 240 200 @ 20 mls/hr IV .Q24H [facility] Rx#:[id number] Piperacillin-Tazobactam 3 200 100 .375 gm In Sodium Chloride 0.9% 100 ml @ 25 mls/hr IVPB Q12H [facility] Rx# :[id number] metroNIDAZOLE-NS PMX 500 300 100 mg In Saline 1 100ml.bag @ 100 mls/hr IVPB Q8HR [facility] Rx#:[id number] Output: Drainage 20 RLQ FRANCESCA Drain 20 Urine 0 Stool 300 - Exam No acute distress, oriented 3. Currently on 2 L by nasal cannula. HEENT examination is grossly unremarkable. Neck supple. Full range of motion. No adenopathy thyromegaly or neck vein distention. Cardiovascular examination reveals regular rhythm rate. S1-S2 normal. No S3 or S4. No discernible murmur noted. Heart sounds are distant. Heart rate is 88 bpm. Lungs reveal mild scattered rhonchi. Breath sounds equal bilaterally. No wheezes. No crackles. Saturations are 98 %. Room air saturations are 94%. Abdomen soft, but tender. No bowel sounds. Dressing is noted in place. Extremities are intact. No cyanosis clubbing or edema. Skin is without rash or lesion. Neurologic examination is brief but nonfocal. - Labs CBC & Chem 7: 11/16/22 04:17 11/16/22 04:17 Labs: Abnormal Lab Results - Last 24 Hours (Table) 11/16/22 11/16/22 Range/Units 04:17 04:17 WBC 20.2 H (3.8-10.6) k/uL RBC 2.27 L (3.80-5.40) m/uL Hgb 7.5 L (11.4-16.0) gm/dL Hct 23.5 L (34.0-46.0) % MCV 103.2 H (80.0-100.0) fL RDW 17.9 H (11.5-15.5) % Sodium 133 L (137-145) mmol/L Chloride 96 L (98-107) mmol/L Carbon Dioxide 19 L (22-30) mmol/L BUN 55 H (7-17) mg/dL Creatinine 7.72 H* (0.52-1.04) mg/dL Calcium 8.0 L (8.4-10.2) mg/dL Microbiology - Last 24 Hours (Table) 11/13/22 03:45 Anaerobic Culture - Preliminary Abdomen 11/13/22 03:45 Gram Stain - Final Abdomen Wound Culture - Final Assessment and Plan Assessment: Postop day #3, status post exploratory laparotomy with lysis of adhesions, sigmoid colectomy, Brandon's procedure, abdominal washout, removal of a FRANCESCA drain, placement of a FRANCESCA drain, and placement of a wound VAC, for fecal peritonitis, and perforated sigmoid diverticulitis. Peritoneal sepsis, secondary to Bacteroides species. History of hypertension. History of end-stage renal disease, previously on peritoneal dialysis, now on hemodialysis. History of seizure disorder. History of gout. Anemia of chronic disease. Previous history of tobacco use. History of anxiety. Plan: Plan dated 11/13/2022. The patient is seen today in room 258. She continues on Zosyn and Flagyl. Peritoneal cultures are positive for Bacteroides. The patient is postop day #0. She had an extensive procedure as noted above. Labs, x-rays, medications are reviewed. Prognosis is guarded. She's currently on 4 L of oxygen. We will continue to follow make recommendations along the way. She'll continue in the intensive care unit for the time being. Additional recommendations and suggestions are to follow. Prognosis is certainly guarded. Plan dated 11/14/2022. The patient is seen today in room 258. She's currently receiving hemodialysis. She did have hemodialysis prior to peritoneal dialysis, 3 years ago. The plan is to 1.5 L of fluid today. The patient's hemoglobin was less than 7 and she'll receive 1 unit of packed red blood cells. She's on 2 L of oxygen. Peritoneal fluid was positive for Bacteroides species. The patient is on Zosyn and Flagyl. Additional recommendations and suggestions are forthcoming. Prognosis is guarded. Plan dated 11/15/2022. The patient is again seen today in room 258. She seems to be reasonably stable. She is postoperative day #2. She had an extensive surgical procedure. The patient currently is on 2 L. She's getting lactated Ringer's at KVO. She had hemodialysis yesterday, was 1.5 L of fluid removed. She continues on Zosyn and Flagyl, for her Bacteroides sepsis. The patient may be stable for transfer to the general medical floor, later today. Labs, x-rays, medications are reviewed. We will continue to follow. Prognosis is guarded. Plan dated 11/16/2022. The patient is again seen today in room 258. The patient continues on oxygen at 2 L. Today is postoperative day #3. Labs, x-rays, medications are reviewed. The patient continues on antibiotics for her infection. Clinically, the patient's doing much better. The patient could be transferred out to the general medical floor. Today is postop day #3. We will continue to follow and make recommendations along the way. Time with Patient: Less than 30
[2022-11-16] MEDS: metroNIDAZOLE-NS PMX 500 MG in SALINE 1 100ML.BAG IVPB SCH ×3 (12:18→23:51)
[2022-11-16] MEDS: PIPERACILLIN-TAZOBACTAM 3.375 GM in SODIUM CHLORIDE 0.9% 100 ML IVPB SCH ×2 (12:19→23:51)
[2022-11-16] MEDS: METOPROLOL TARTRATE 25 MG TAB PO SCH ×2 (12:20→21:23)
[2022-11-16] MEDS: lisinopriL 10 MG TAB PO SCH ×2 (12:20→21:23)
[2022-11-16] MEDS: PANTOPRAZOLE 40 MG/10 ML VIAL IV SCH (12:20)
[2022-11-16] MEDS: SIMETHICONE 80 MG CHEWABLE PO SCH ×3 (12:21→20:06)
[2022-11-16] MEDS: RENAPLEX D PO SCH (12:21)
--- NOTE | 2022-11-16 12:44 | P.PN ---
Subjective Progress Note Date: 11/16/22 42-year-old female, history of hypertension, seizure disorder, chronic kidney disease/dialysis who presents to the emergency department for abdominal pain. Patient states that abdominal pain has been going on for 2-3 days. She receives peritoneal dialysis every 6 hours and was diagnosed with peritonitis 2 days ago by the individual who manages her peritoneal dialysis. She was started on vancomycin and a cephalosporin antibiotic that she cannot recall the name of. She been on antibiotics for 2 days. She puts the medications in her dialysis bags. States that she continues to have abdominal pain despite the antibiotics. Reports that she has not had a bowel movement in 2 days, and prior to that she only had runny stool. Also reports ongoing nausea and vomiting and feels dehydrated. Denies any fevers, chills, sore throat, cough, dyspnea, chest pain, palpitations, abdominal pain, nausea, vomiting, diarrhea, back pain, or headaches. -- Blood work completed reveals a WBC of 8.1, hemoglobin of 8.2, platelet count of 261, sodium 126, potassium 3.4, BUN/creatinine of 52/12.0, consistent with end-stage renal disease, lactic acid levels of 1.5 Computed tomography scan of the abdomen and pelvis obtained revealing a small bowel obstruction. She does also have moderate abdominopelvic ascites and enteritis. Patient admitted to medicine for further management of small bowel obstruction and hyponatremia. Consult placed for general surgery regarding the small bowel obstruction. Consult was also placed for nephrology given that she is a peritoneal dialysis patient. 11/04/2022 the patient is seen and evaluated in room at bedside; patient remains afebrile and is currently breathing comfortably on room air sat complaint of abdominal distention and some discomfort, NG has been placed in by surgery no vomiting has been reported and had denies any diarrhea. Patient did have white count of 8.68, creatinine is 13, repeat peritoneal fluid white count is down to 168, vancomycin and was 9.6 patient presented hospital abdominal pain cloudy peritoneal fluid did have a significant elevated white count in the peritoneal fluid likely secondary to PD catheter associated peritonitis patient did not have any evidence of abdominal infection at the site of insertion of the PD catheter he will need to cover for the gram-positive skin emelina to the likely pathogen underlying gram-negative infection less likely not excluded -patient also have evidence of ileus on the CT may be contributing some of her abdominal pain -patient has received a dose of vancomycin today as the patient vancomycin and was 9.6, the patient will continue with Fortaz with peritoneal dialysis daily, until the cultures are finalized 11/05. Patient seen and examined. States abdominal pain has improved 11/06. Patient seen and examined. Nephrology plan to switch patient to hemodialysis. NG tube in place. Still having abdominal pain 11/07. Patient seen and examined. WBC this morning 13.75, hemoglobin 7, platelet count 305. Patient undergoing hemodialysis today 11/08. Patient seen and examined. Patient underwent status post robotic- assisted laparoscopic lysis of adhesions and removal of peritoneal dialysis catheter for small bowel obstruction, bacterial peritonitis and right ovarian cyst abscess. Currently on clear liquid diet. Abdominal pain has improved 11/09. Patient seen and examined hemoglobin this morning is 6.7, will order 1 unit of packed red blood cell. Diet advanced to regular 11/10. Patient seen and examined. Denies abdominal pain. Tolerating regular diet 11/11. Patient seen and examined. ID waiting on catheter tip and OR cultures 11/12. Patient seen and examined. Tolerating diet. Patient has persistent leukocytosis, WBC 30.47. Repeat CT abdominal and pelvis done on 11/11 showed mild proximal small bowel dilatation with scattered small bowel wall thickening. Moderate abdominopelvic ascites with intraperitoneal dialysis catheter 11/13. Patient seen and examined. Patient underwent Exploratory laparotomy with lysis of adhesions, Sigmoid colectomy, Descending ostomy for Manuelito's procedure on 11/12 816. Patient seen and examined. patient received 1 unit of packed red blood cells this morning 11/15. Patient seen and examined. White count this morning is 20.7, hemoglobin 7.6. Sodium 134, potassium 4.1. Patient had abdominal pain this morning, otherwise states she feels better 11/16. Patient seen and examined. WBC this morning 20.2, hemoglobin 7.5, sodium 133, potassium 4.1, BUN 55 creatinine 7.7. Patient continues to have low appetite REVIEW OF SYSTEMS: CONSTITUTIONAL: No fever, no malaise,. CARDIOVASCULAR: No chest pain, no palpitations, no syncope. PULMONARY: No shortness of breath, no cough, GASTROINTESTINAL: As mentioned above NEUROLOGICAL: No headaches, no weakness, PHYSICAL EXAMINATION: GENERAL: The patient is alert and oriented x3, not in any acute distress. Well developed, well nourished. HEENT: Pupils are round and equally reacting to light. EOMI. No scleral icterus. No conjunctival pallor. Normocephalic, atraumatic. No pharyngeal erythema. No thyromegaly. CARDIOVASCULAR: S1 and S2 present. No murmurs, rubs, or gallops. PULMONARY: Chest is clear to auscultation, no wheezing or crackles. ABDOMEN: Soft, nontender, surgical incision seen, ostomy seen, drain in place MUSCULOSKELETAL: No joint swelling or deformity. EXTREMITIES: No cyanosis, clubbing, or pedal edema. NEUROLOGICAL: Gross neurological examination did not reveal any focal deficits. SKIN: No rashes. Assessment and plan Fecal peritonitis due to perforated sigmoid diverticulitis Small bowel obstruction Abdominal pain PD catheter associated peritonitis -Monitor vital signs status post robotic-assisted laparoscopic lysis of adhesions and removal of peritoneal dialysis catheter for small bowel obstruction, bacterial peritonitis and right ovarian cyst abscess on 11/07 Status post Exploratory laparotomy with lysis of adhesions, Sigmoid colectomy, Descending ostomy for Manuelito's procedure on 11/12 Continue wound care Diet advanced to low fiber diet Continue IV Zosyn and Flagyl Surgery following ID following End-stage renal disease on peritoneal dialysis , switched to hemodialysis Anemia Hypokalemia; Hyponatremia; Continue hemodialysis per nephrology Hypertension; patient remains on metoprolol 50 mg twice a day along with lisinopril 20 mg twice a day Seizure disorder; patient currently not on anti- seizure medication Anemia; monitor CBC Labs and medication were reviewed.. Continue same treatment. Continue with symptomatic treatment. Resume home medication. Monitor labs and vitals. DVT and GI prophylaxis. Further recommendations as per clinical course of the patient Dictation was produced using [employer] dictation software. please excuse any grammatical, word or spelling errors. Objective - Vital Signs Vital signs: Vital Signs Temp 98.2 F 11/16/22 02:00 Pulse 76 11/16/22 02:00 Resp 14 11/16/22 02:00 BP 147/82 11/16/22 02:00 Pulse Ox 94 L 11/16/22 02:00 FiO2 Intake & Output 11/15/22 11/16/22 11/16/22 18:59 06:59 18:59 Intake Total 740 400 Output Total 0 320 Balance 740 80 Weight 98.6 kg Intake: IV 740 400 Lactated Ringers 1,000 ml 240 200 @ 20 mls/hr IV .Q24H [facility] Rx#:[id number] Piperacillin-Tazobactam 3 200 100 .375 gm In Sodium Chloride 0.9% 100 ml @ 25 mls/hr IVPB Q12H [facility] Rx# :[id number] metroNIDAZOLE-NS PMX 500 300 100 mg In Saline 1 100ml.bag @ 100 mls/hr IVPB Q8HR [facility] Rx#:[id number] Output: Drainage 20 RLQ FRANCESCA Drain 20 Urine 0 Stool 300 - Labs CBC & Chem 7: 11/16/22 04:17 11/16/22 04:17 Labs: Abnormal Lab Results - Last 24 Hours (Table) 11/16/22 11/16/22 Range/Units 04:17 04:17 WBC 20.2 H (3.8-10.6) k/uL RBC 2.27 L (3.80-5.40) m/uL Hgb 7.5 L (11.4-16.0) gm/dL Hct 23.5 L (34.0-46.0) % MCV 103.2 H (80.0-100.0) fL RDW 17.9 H (11.5-15.5) % Sodium 133 L (137-145) mmol/L Chloride 96 L (98-107) mmol/L Carbon Dioxide 19 L (22-30) mmol/L BUN 55 H (7-17) mg/dL Creatinine 7.72 H* (0.52-1.04) mg/dL Calcium 8.0 L (8.4-10.2) mg/dL Microbiology - Last 24 Hours (Table) 11/13/22 03:45 Anaerobic Culture - Preliminary Abdomen 11/13/22 03:45 Gram Stain - Final Abdomen Wound Culture - Final
--- NOTE | 2022-11-16 15:35 | P.PN ---
Subjective Progress Note Date: 11/16/22 Principal diagnosis: PD catheter associated peritonitis Patient is a 42-year-old female with a past medical history negative for hypertension seizure disorder history of end-stage renal disease on peritoneal dialysis since December 2018 did have 1 previous episode of infection treated with antibiotics patient started having a problem with abdominal pain that started on Saturday that is about 4 days before presentation to the hospital, patient has been diagnosed with peritonitis also have CT abdominal pelvis suggestive of ileus.Patient is status post laparoscopic lysis of adhesion removal of dialysis catheter and drainage of the abscess on 11/07/2022. Patient was taken to the OR late 11/12/2022 status post laparotomy and evidence of perforated sigmoid diverticulitis post sigmoid colectomy and an ostomy on today's evaluation that is 11/16/2022 the patient remains to be afebrile, patient is breathing comfortably on 2 L nasal cannula oxygen patient denies chest pain shortness breathing the patient did have occasional cough abdominal pain has decreased in intensity no nausea vomiting. Patient white count is down to 20.2, creatinine is 5.8 3 repeat abdominal cultures currently pending Objective - Vital Signs Vital signs: Vital Signs Temp 98.0 F 11/16/22 08:00 Pulse 87 11/16/22 08:00 Resp 20 11/16/22 08:00 BP 135/89 11/16/22 08:00 Pulse Ox 99 11/16/22 08:00 FiO2 Intake & Output 11/15/22 11/16/22 11/16/22 18:59 06:59 18:59 Intake Total 740 400 Output Total 0 320 Balance 740 80 Weight 98.6 kg 98.6 kg Intake: IV 740 400 Lactated Ringers 1,000 ml 240 200 @ 20 mls/hr IV .Q24H [facility] Rx#:[id number] Piperacillin-Tazobactam 3 200 100 .375 gm In Sodium Chloride 0.9% 100 ml @ 25 mls/hr IVPB Q12H [facility] Rx# :[id number] metroNIDAZOLE-NS PMX 500 300 100 mg In Saline 1 100ml.bag @ 100 mls/hr IVPB Q8HR [facility] Rx#:[id number] Output: Drainage 20 RLQ FRANCESCA Drain 20 Urine 0 Stool 300 - Exam GENERAL DESCRIPTION: Middle-aged female lying in bed in no distress RESPIRATORY SYSTEM: Unlabored breathing , decreased breath sounds at bases HEART: S1 S2 regular rate and rhythm , ABDOMEN: Soft , mild abdominal distention and tenderness EXTREMITIES: No edema feet - Labs CBC & Chem 7: 11/16/22 04:17 11/16/22 04:17 Labs: Abnormal Lab Results - Last 24 Hours (Table) 11/16/22 11/16/22 Range/Units 04:17 04:17 WBC 20.2 H (3.8-10.6) k/uL RBC 2.27 L (3.80-5.40) m/uL Hgb 7.5 L (11.4-16.0) gm/dL Hct 23.5 L (34.0-46.0) % MCV 103.2 H (80.0-100.0) fL RDW 17.9 H (11.5-15.5) % Sodium 133 L (137-145) mmol/L Chloride 96 L (98-107) mmol/L Carbon Dioxide 19 L (22-30) mmol/L BUN 55 H (7-17) mg/dL Creatinine 7.72 H* (0.52-1.04) mg/dL Calcium 8.0 L (8.4-10.2) mg/dL Microbiology - Last 24 Hours (Table) 11/13/22 03:45 Anaerobic Culture - Preliminary Abdomen 11/13/22 03:45 Gram Stain - Final Abdomen Wound Culture - Final Assessment and Plan (1) Peritonitis associated with continuous ambulatory peritoneal dialysis Current Visit: Yes Status: Acute Code(s): T80.89XA - OTH COMP FOL INFUSION, TRANSFUSE AND THERAPUTC INJECT, INIT; K65.9 - PERITONITIS, UNSPECIFIED; Z99.2 - DEPENDENCE ON RENAL DIALYSIS SNOMED Code(s): 478217885 Plan: 1patient presented hospital abdominal pain cloudy peritoneal fluid did have a significant elevated white in the peritoneal fluid likely secondary to PD catheter associated peritonitis patient did not have any evidence of abdominal infection at the site of insertion of the PD catheter patient also have evidence of ileus on the CT may be contributing some of her abdominal pain, patient did have a small bowel follow-through, did show delayed transit of contrast through the bowel with no evidence of small bowel obstruction 2-patient is status post laparoscopic lysis of adhesion removal of the dialysis catheter and drainage of the abscess abdominal cultures currently growing anaerobic gram-negative bacilli 3patient wasnoticed to have worsening of her white count and the patient was noticed to have more abdominal tenderness , patient did have evidence of perforated sigmoid colitis status post sigmoid colectomy and diverting colostomy along with drainage of the abscess cultures currently pending 4-Patient is slowly clinically proving the patient white count is trending down, the patient abdominal cultures currently pending 5-patient will continue on Zosyn monitor clinical course closely mother at the bedside questions concern answered Dictation was produced using [employer] dictation software. please excuse any grammatical, word or spelling errors. Time with Patient: Less than 30
[2022-11-16] MEDS: HYDROmorphone 0.5 MG/0.5 ML SYRINGE IVP PRN (17:47)
--- NOTE | 2022-11-17 00:04 | P.PN ---
Subjective Patient is seen in follow-up for end-stage renal disease. PD catheter removed 11/07/2022. Now on hemodialysis. Patient was taken back to OR on 11/12/2022 due to stool noted in the FRANCESCA drain and persistent elevation of white cell count. Patient was noted to have bowel perforation. She had resection of a portion of the colon. Patient was trans ferred to the ICU. She is currently hemodynamically stable. Pain is fairly well controlled. Patient is seen on HD. Tolerating treatment well. Objective - Vital Signs Vital signs: Vital Signs Temp 98.1 F 11/16/22 20:00 Pulse 80 11/16/22 20:00 Resp 18 11/16/22 20:00 BP 133/87 11/16/22 20:00 Pulse Ox 97 11/16/22 20:00 FiO2 Intake & Output 11/16/22 11/16/22 11/17/22 06:59 18:59 06:59 Intake Total 400 840 Output Total 320 2450 Balance 80 -1610 Weight 98.6 kg 98.6 kg Intake: IV 400 540 Lactated Ringers 1,000 ml 200 240 @ 20 mls/hr IV .Q24H [facility] Rx#:[id number] Piperacillin-Tazobactam 3 100 100 .375 gm In Sodium Chloride 0.9% 100 ml @ 25 mls/hr IVPB Q12H [facility] Rx# :[id number] metroNIDAZOLE-NS PMX 500 100 200 mg In Saline 1 100ml.bag @ 100 mls/hr IVPB Q8HR [facility] Rx#:[id number] Hemodialysis 300 Output: Drainage 20 RLQ FRANCESCA Drain 20 Stool 300 150 Hemodialysis 2300 - Exam Patient is awake, comfortable, in no acute distress Alert oriented 3 Examination of the heart S1 and S2 Examination of the lungs bilateral breath sounds are heard Abdomen is soft, tenderness noted Examination of lower extremities shows no significant edema HAND TUBE BENDER exam grossly intact - Labs CBC & Chem 7: 11/16/22 04:17 11/16/22 04:17 Labs: Abnormal Lab Results - Last 24 Hours (Table) 11/16/22 11/16/22 Range/Units 04:17 04:17 WBC 20.2 H (3.8-10.6) k/uL RBC 2.27 L (3.80-5.40) m/uL Hgb 7.5 L (11.4-16.0) gm/dL Hct 23.5 L (34.0-46.0) % MCV 103.2 H (80.0-100.0) fL RDW 17.9 H (11.5-15.5) % Sodium 133 L (137-145) mmol/L Chloride 96 L (98-107) mmol/L Carbon Dioxide 19 L (22-30) mmol/L BUN 55 H (7-17) mg/dL Creatinine 7.72 H* (0.52-1.04) mg/dL Calcium 8.0 L (8.4-10.2) mg/dL Assessment and Plan Assessment: 1. End-stage renal disease on peritoneal dialysis 2. PD peritonitis. Status post removal of PD catheter on 11/07/2022 and currently on hemodialysis via IJ permacath. Patient tolerating her treatment well. Final fluid culture from PD fluid is growing bacteroids. Initial culture had shown E. coli as outpatient. Stool was noted in the FRANCESCA drain and patient was taken back to or yesterday 11/12/2022. Patient had sigmoid colectomy with lysis of the lesions and descending ostomy for Brandon's procedure. 3. Small bowel obstruction status post laparoscopic lysis of adhesions and removal of PD catheter on 11/07/2022 4. Anemia of chronic disease 5. CK D mineral bone disorder 6. Hypertension, with CK D. 7. Hyperkalemia associated with end-stage renal disease and recent surgery, resolved with dialysis Plan: Hemodialysis on Saturday schedule Antibiotics as per ID.
[2022-11-17] MEDS: LACTATED RINGERS 1,000 ML IV SCH (02:45)
[2022-11-17] MEDS: HYDROmorphone 1 MG/ML 1 ML SYRINGE IVP PRN ×3 (03:10→20:31)
[2022-11-17 04:46] LABS: Anisocytosis Slight; Basophils % (A) 0 %; Eosinophils # (A) 0.3 k/uL (0-0.7); Eosinophils % (A) 1 %; HCT 24.1 % (34.0-46.0); HGB 7.7 gm/dL (11.4-16.0); Hypochromasia Moderate; Lymphocytes # (A) 1.5 k/uL (1.0-4.8); Lymphocytes % (A) 7 %; MCH 33.1 pg (25.0-35.0); MCHC 31.9 g/dL (31.0-37.0); MCV 103.6 fL (80.0-100.0); Macrocytosis Moderate; Monocytes # (A) 0.7 k/uL (0-1.0); Monocytes % (A) 3 %; Neutrophils % (A) 88 %; Platelet Count 440 k/uL (150-450); RBC 2.33 m/uL (3.80-5.40); RDW 17.6 % (11.5-15.5); WBC 21.7 k/uL (3.8-10.6)
[2022-11-17 05:11] LABS: ALT 8 U/L (4-34); AST 23 U/L (14-36); African American GFR (CKD) 10 (>60 ml/min/1.73 sqM); Albumin 2.4 g/dL (3.5-5.0); Alkaline Phosphatase 73 U/L (38-126); Anion Gap 13 mmol/L; Blood Urea Nitrogen 39 mg/dL (7-17); Calcium 7.8 mg/dL (8.4-10.2); Carbon Dioxide 23 mmol/L (22-30); Chloride 96 mmol/L (98-107); Glucose 84 mg/dL (74-99); Non-African American GFR(CKD) 9 (>60 ml/min/1.73 sqM); Sodium 132 mmol/L (137-145); Total Bilirubin 0.6 mg/dL (0.2-1.3); Total Protein 5.2 g/dL (6.3-8.2)
[2022-11-17] MEDS: ACETAMINOPHEN TAB 500 MG TAB PO SCH ×3 (06:33→17:53)
[2022-11-17] MEDS: ENOXAPARIN 30 MG/0.3 ML SYRINGE SQ SCH (07:32)
[2022-11-17] MEDS: metroNIDAZOLE-NS PMX 500 MG in SALINE 1 100ML.BAG IVPB SCH ×2 (07:32→16:29)
[2022-11-17] MEDS: METOPROLOL TARTRATE 25 MG TAB PO SCH ×2 (07:33→20:19)
[2022-11-17] MEDS: lisinopriL 10 MG TAB PO SCH ×2 (07:33→20:19)
[2022-11-17] MEDS: RENAPLEX D PO SCH (07:35)
--- NOTE | 2022-11-17 08:11 | P.PN ---
Subjective Progress Note Date: 11/16/22 CHIEF COMPLAINT: Abdominal pain HISTORY OF PRESENT ILLNESS: The patient is a 42-year-old female status post exploratory laparotomy, descending colostomy for perforated diverticulitis, 11/13/2022. and mother at bedside. [facility] She denies increased abdominal pain. She slowly increasing her appetite. She is on low fiber diet. ROS: No fevers or chills. No shortness of breath. PHYSICAL EXAM: VITAL SIGNS: Reviewed CONSTITUTIONAL: Well developed and in mild distress. EYES: Conjuctivae without sclera icterus. Extraocular movements grossly intact. HEAD, EARS, NOSE, THROAT: Moist buccal mucosa. Head is atraumatic, normocephalic. Hears conversational speech. No nasal drainage. RESPIRATORY: Non-labored respirations and equal bilateral excursions. CARDIOVASCULAR: Palpable 2+ radial pulses. ABDOMEN: FRANCESCA serosanguineous. Incisional wound VAC system intact. Moderate soft brown stool in ostomy MUSCULOSKELETAL: No gross deformity of the lower extremities noted. No clubbing. No cyanosis. SKIN: Good skin turgor. Well perfused. NEUROLOGIC: Cranial nerves II through XII grossly intact. No focal or lateralizing signs. PSYCH: Appropriate affect. Alert and oriented to person, place and time. CLINICAL LABS: Reviewed. WBC elevated over 35,000 down 20,000. Today WBC 20,000. ASSESSMENT: 1. Perforated sigmoid diverticulitis 2. Small bowel obstruction 3. Sepsis 4. End-stage renal disease 5. Chronic anemia PLAN: 1. Antibiotic management per infectious disease 2. Monitor WBC. May need adjustment of antibiotics including PICC line. 3. Home healthcare assessment 4. Ostomy teaching with patient and family. 5. Overall patient and family please level of care. Objective - Vital Signs Vital signs: Vital Signs Temp 97.5 F L 11/17/22 07:18 Pulse 75 11/17/22 07:18 Resp 18 11/17/22 07:18 BP 135/86 11/17/22 07:18 Pulse Ox 99 11/17/22 07:18 FiO2 Intake & Output 11/16/22 11/17/22 11/17/22 18:59 06:59 18:59 Intake Total 840 Output Total 2450 Balance -1610 Weight 98.6 kg Intake: IV 540 Lactated Ringers 1,000 ml 240 @ 20 mls/hr IV .Q24H [facility] Rx#:[id number] Piperacillin-Tazobactam 3 100 .375 gm In Sodium Chloride 0.9% 100 ml @ 25 mls/hr IVPB Q12H [facility] Rx# :[id number] metroNIDAZOLE-NS PMX 500 200 mg In Saline 1 100ml.bag @ 100 mls/hr IVPB Q8HR [facility] Rx#:[id number] Hemodialysis 300 Output: Stool 150 Hemodialysis 2300 - Labs CBC & Chem 7: 11/17/22 04:21 11/17/22 04:21 Labs: Abnormal Lab Results - Last 24 Hours (Table) 11/17/22 11/17/22 Range/Units 04:21 04:21 WBC 21.7 H (3.8-10.6) k/uL RBC 2.33 L (3.80-5.40) m/uL Hgb 7.7 L (11.4-16.0) gm/dL Hct 24.1 L (34.0-46.0) % MCV 103.6 H (80.0-100.0) fL RDW 17.6 H (11.5-15.5) % Neutrophils # 19.0 H (1.3-7.7) k/uL Sodium 132 L (137-145) mmol/L Chloride 96 L (98-107) mmol/L BUN 39 H (7-17) mg/dL Creatinine 5.62 H (0.52-1.04) mg/dL Calcium 7.8 L (8.4-10.2) mg/dL Total Protein 5.2 L (6.3-8.2) g/dL Albumin 2.4 L (3.5-5.0) g/dL
[2022-11-17] MEDS: SIMETHICONE 80 MG CHEWABLE PO SCH ×3 (09:12→21:09)
[2022-11-17] MEDS: SEVELAMER 800 MG TAB PO SCH ×4 (09:12→16:32)
[2022-11-17] MEDS: PANTOPRAZOLE 40 MG/10 ML VIAL IV SCH (09:19)
--- NOTE | 2022-11-17 10:14 | P.PN ---
Progress Note - Text Progress Note Date: 11/17/22 Patient's resting in her bed. She has complaints of incisional pain. There is some stool production in her colostomy. On exam vital signs are stable. Abdomen soft. Incision sites clean dry tach. Colostomy has some stool in his pain. Status post small bowel obstruction and colostomy. Patient will K receive supportive care.
[2022-11-17] MEDS: PIPERACILLIN-TAZOBACTAM 3.375 GM in SODIUM CHLORIDE 0.9% 100 ML IVPB SCH (11:19)
--- NOTE | 2022-11-17 12:00 | P.PN ---
Subjective Progress Note Date: 11/17/22 42-year-old female who was admitted back on November 02, for abdominal pain. She came into the emergency department with abdominal pain, going on for 2 or 3 days prior to admission. The patient apparently receives peritoneal dialysis every 6 hours, and was recently diagnosed with peritonitis. She was started on antibiotics, and is been in the hospital since the fourth. I was notified yesterday, by Dr. Terrazas, that the patient was needing surgery, and in the intensive care unit bed. She suspected a perforated sigmoid diverticuli, and the patient had a number of issues including renal failure, electrolyte disturbance, hypotension, etc. In addition, she was thought to be septic. The patient went to the operating room yesterday, and had an exploratory laparotomy, sigmoid colectomy, Brandon's pouch, abdominal washout, placement of the FRANCESCA drain, and placement of the wound VAC. She was successfully extubated in recovery, she is currently in the intensive care unit, room 258. She's currentl y on 4 L of oxygen by nasal cannula. She's getting lactated Ringer's at 20 mL an hour. She continues on Zosyn and Flagyl. White count is 35.5, hemoglobin 9.6, hematocrit 30, and platelet count 367,000. Sodium 133, potassium 5.5, chlorides 98, CO2 16, anion gap 19, BUN 50, creatinine 8.34. Peritoneal fluid cultures are positive for Bacteroides. Progress note dated 11/14/2022. 42-year-old female, postop day #1, status post exploratory laparotomy with lysis of adhesions, sigmoid colectomy, Brandon's procedure, abdominal washout, removal of the FRANCESCA drain, placement of the FRANCESCA drain, and placement of a wound VAC, for fecal peritonitis and perforated sigmoid diverticulitis. The patient is seen today in room 258. She is currently undergoing hemodialysis. She is on 2 L of oxygen. The plan for hemodialysis today is removed 1.5 L of fluid. The patient is getting lactated Ringer's at 20 mL an hour. In addition, she'll receive 1 unit of PRBCs. She's currently on Zosyn and Flagyl. 3 years ago, before starting peritoneal dialysis, she was receiving hemodialysis. White count 25, hemoglobin 6.8, hematocrit 21.9, and platelet count normal. Sodium 134, potassium 4.4, chlorides 98, CO2 24, BUN 43, and creatinine 7.66. Peritoneal fluid was positive for Bacteroides. No chest x-ray today. Progress note dated 11/15/2022. 42-year-old female postop day #2, status post exploratory laparotomy, with lysis of adhesions, sigmoid colectomy, Brandon's procedure, among other things. The p atient seems be doing reasonably well. She seen today in room 258. She's currently on 2 L of oxygen. She's getting lactated Ringer's at KVO. She had dialysis yesterday, and 1.5 L of fluid was removed. She's getting Zosyn and Flagyl. She has been stable overnight according to the nurses. White count was 20.7, hemoglobin 7.6, hematocrit 23.8, and platelet count 359,000. Sodium 134, potassium 4.1, chlorides 96, CO2 25, BUN 35, and creatinine 5.83. Progress note dated 11/16/2022. 42-year-old female postop day #3, status post exploratory laparotomy. Currently, the patient is seen today in room 258. She is on 2 L of oxygen, saline at KVO, and is scheduled to have hemodialysis today. She continues on Zosyn and Flagyl. Labs today include a white count 20.2, hemoglobin 7.5, hematocrit 23.5, and a normal platelet count. Sodium 133, potassium 4.1, chlorides 96, CO2 19, anion gap 18, BUN 55, and creatinine 7.72. Peritoneal fluid cultures continued to show Bacteroides. No recent chest x-ray. The patient is seen today 11/17/2022 in follow-up on the regular medical floor. Postoperative day #4 of an exploratory laparotomy with lysis of adhesions sigmoid colectomy Brandon's procedure abdominal washout and wound VAC placement. She was found to have fecal peritonitis and perforated sigmoid diverticulitis. She is currently resting in bed. Maintaining O2 saturations in the upper 90s on 2 L/m per nasal cannula. She's afebrile. Hemodynamically stable. She is status post 2 units of packed red blood cells this admission. Current hemoglobin 7.7. Platelets 440. White count 21.7. Sodium 132. Potassium 4.0. Bicarb 23. BUN 39. Creatinine 5.62. She remains on Flagyl and Zosyn. Lovenox for DVT prophylaxis. Working well with the incentive spirometer. Objective - Vital Signs Vital signs: Vital Signs Temp 97.5 F L 11/17/22 07:18 Pulse 75 11/17/22 07:18 Resp 18 11/17/22 07:18 BP 135/86 11/17/22 07:18 Pulse Ox 97 11/17/22 08:39 FiO2 Intake & Output 11/16/22 11/17/22 11/17/22 18:59 06:59 18:59 Intake Total 840 Output Total 2450 Balance -1610 Weight 98.6 kg Intake: IV 540 Lactated Ringers 1,000 ml 240 @ 20 mls/hr IV .Q24H VANESSA Rx#:[id number] Piperacillin-Tazobactam 3 100 .375 gm In Sodium Chloride 0.9% 100 ml @ 25 mls/hr IVPB Q12H VANESSA Rx# :[id number] metroNIDAZOLE-NS PMX 500 200 mg In Saline 1 100ml.bag @ 100 mls/hr IVPB Q8HR VANESSA Rx#:[id number] Hemodialysis 300 Output: Stool 150 Hemodialysis 2300 - Exam Alert, 42-year-old female, in no acute distress, oriented 3. Currently on 2 L by nasal cannula. HEENT examination is grossly unremarkable. Neck supple. Full range of motion. No adenopathy, thyromegaly or neck vein distention. Cardiovascular examination reveals regular rhythm rate. S1-S2 normal. No S3 or S4. No discernible murmur noted. Heart sounds are distant. Lungs reveal mild scattered rhonchi. Breath sounds equal bilaterally. No wheezes. No crackles. Abdomen soft, but tender. No bowel sounds. Dressing is noted in place. Ostomy functioning. Extremities are intact. No cyanosis clubbing or edema. Skin is without rash or lesion. Neurologic examination is brief but nonfocal. - Labs CBC & Chem 7: 11/17/22 04:21 11/17/22 04:21 Labs: Abnormal Lab Results - Last 24 Hours (Table) 11/17/22 11/17/22 Range/Units 04:21 04:21 WBC 21.7 H (3.8-10.6) k/uL RBC 2.33 L (3.80-5.40) m/uL Hgb 7.7 L (11.4-16.0) gm/dL Hct 24.1 L (34.0-46.0) % MCV 103.6 H (80.0-100.0) fL RDW 17.6 H (11.5-15.5) % Neutrophils # 19.0 H (1.3-7.7) k/uL Sodium 132 L (137-145) mmol/L Chloride 96 L (98-107) mmol/L BUN 39 H (7-17) mg/dL Creatinine 5.62 H (0.52-1.04) mg/dL Calcium 7.8 L (8.4-10.2) mg/dL Total Protein 5.2 L (6.3-8.2) g/dL Albumin 2.4 L (3.5-5.0) g/dL Assessment and Plan Assessment: Postop day #4, status post exploratory laparotomy with lysis of adhesions, si gmoid colectomy, Brandon's procedure, abdominal washout, removal of a FRANCESCA drain, placement of a FRANCESCA drain, and placement of a wound VAC, for fecal peritonitis, and perforated sigmoid diverticulitis. Peritoneal sepsis, secondary to Bacteroides species. History of hypertension. History of end-stage renal disease, previously on peritoneal dialysis, now on hemodialysis. History of seizure disorder. History of gout. Anemia of chronic disease. Previous history of tobacco use. History of anxiety. Plan: The patient was seen and evaluated Labs and medications reviewed Stable on 2 L nasal cannula Encouraged increased use the incentive spirometer Remains on Zosyn and Flagyl Increase her activity as tolerated Titrate the FiO2 as tolerated We will continue to follow I have personally seen and examined the patient, performed the documentation and the assessment and plan as written. Number of minutes spent on the visit: 10.
[2022-11-17] MEDS: DARBEPOETIN ALFA 100MCG/0.5ML SYRINGE SQ SCH (12:35)
--- NOTE | 2022-11-17 12:37 | P.PN ---
Subjective Patient is seen in follow-up for end-stage renal disease. Peritoneal dialysis discontinued 11/06/2022. Tolerating hemodialysis well. Tolerating soft diet. Vital signs are stable. General: No acute distress. HEENT: Head exam is unremarkable. LUNGS: No audible rhonchi or wheezes. HEART: Rate and Rhythm are regular. ABDOMEN: Colostomy noted. EXTREMITITES: No edema. Objective - Vital Signs Vital signs: Vital Signs Temp 97.5 F L 11/17/22 07:18 Pulse 75 11/17/22 07:18 Resp 18 11/17/22 07:18 BP 135/86 11/17/22 07:18 Pulse Ox 97 11/17/22 08:39 FiO2 Intake & Output 11/16/22 11/17/22 11/17/22 18:59 06:59 18:59 Intake Total 840 Output Total 2450 Balance -1610 Weight 98.6 kg Intake: IV 540 Lactated Ringers 1,000 ml 240 @ 20 mls/hr IV .Q24H [facility] Rx#:[id number] Piperacillin-Tazobactam 3 100 .375 gm In Sodium Chloride 0.9% 100 ml @ 25 mls/hr IVPB Q12H VANESSA Rx# :[id number] metroNIDAZOLE-NS PMX 500 200 mg In Saline 1 100ml.bag @ 100 mls/hr IVPB Q8HR VANESSA Rx#:[id number] Hemodialysis 300 Output: Stool 150 Hemodialysis 2300 - Labs CBC & Chem 7: 11/17/22 04:21 11/17/22 04:21 Labs: Abnormal Lab Results - Last 24 Hours (Table) 11/17/22 11/17/22 Range/Units 04:21 04:21 WBC 21.7 H (3.8-10.6) k/uL RBC 2.33 L (3.80-5.40) m/uL Hgb 7.7 L (11.4-16.0) gm/dL Hct 24.1 L (34.0-46.0) % MCV 103.6 H (80.0-100.0) fL RDW 17.6 H (11.5-15.5) % Neutrophils # 19.0 H (1.3-7.7) k/uL Sodium 132 L (137-145) mmol/L Chloride 96 L (98-107) mmol/L BUN 39 H (7-17) mg/dL Creatinine 5.62 H (0.52-1.04) mg/dL Calcium 7.8 L (8.4-10.2) mg/dL Total Protein 5.2 L (6.3-8.2) g/dL Albumin 2.4 L (3.5-5.0) g/dL Assessment and Plan Plan: Assessment: 1. End-stage renal disease maintained on peritoneal dialysis. 2. PD associated peritonitis status post second dose of intraperitoneal vancomycin 11/04/2022. Also received IP Fortaz. Fluid WBC count 4503 on 11/02/2022 and down to 168 11/03/2022. PMNs 93% October 4 an 89% October 5. Fluid culture done prior to admission was positive for E. coli and this admission again positive for bacteroides. PMN count remains elevated. PD catheter discontinued 11/07/2022. 3. Small bowel obstruction. Surgery following. Status post laparoscopic lysis of adhesions and removal of PD catheter 11/07/2022. Subsequently developed fecal peritonitis from perforated sigmoid diverticulitis and underwent exploratory laparotomy with lysis of edema in the sigmoid colectomy on 023. 4. Anemia of chronic kidney disease. On Aranesp. 5. Hypertension with chronic kidney disease. Stable. 6. Chronic kidney disease mineral bone disease. Phosphorus level 10.4 dated 11/09/2022. On Renvela. Plan: Hemodialysis Saturday. Repeat phosphorus level. Antibiotics per infectious disease. Discussed with surgery team. Due to severe adhesions, she will not be a candidate for peritoneal dialysis in the future. Discussed workup for kidney transplant upon discharge.
--- NOTE | 2022-11-17 14:51 | P.PN ---
Subjective Progress Note Date: 11/17/22 42-year-old female, history of hypertension, seizure disorder, chronic kidney disease/dialysis who presents to the emergency department for abdominal pain. Patient states that abdominal pain has been going on for 2-3 days. She receives peritoneal dialysis every 6 hours and was diagnosed with peritonitis 2 days ago by the individual who manages her peritoneal dialysis. She was started on vancomycin and a cephalosporin antibiotic that she cannot recall the name of. She been on antibiotics for 2 days. She puts the medications in her dialysis bags. States that she continues to have abdominal pain despite the antibiotics. Reports that she has not had a bowel movement in 2 days, and prior to that she only had runny stool. Also reports ongoing nausea and vomiting and feels dehydrated. Denies any fevers, chills, sore throat, cough, dyspnea, chest pain, palpitations, abdominal pain, nausea, vomiting, diarrhea, back pain, or headaches. -- Blood work completed reveals a WBC of 8.1, hemoglobin of 8.2, platelet count of 261, sodium 126, potassium 3.4, BUN/creatinine of 52/12.0, consistent with end-stage renal disease, lactic acid levels of 1.5 Computed tomography scan of the abdomen and pelvis obtained revealing a small bowel obstruction. She does also have moderate abdominopelvic ascites and enteritis. Patient admitted to medicine for further management of small bowel obstruction and hyponatremia. Consult placed for general surgery regarding the small bowel obstruction. Consult was also placed for nephrology given that she is a peritoneal dialysis patient. 11/04/2022 the patient is seen and evaluated in room at bedside; patient remains afebrile and is currently breathing comfortably on room air sat complaint of abdominal distention and some discomfort, NG has been placed in by surgery no vomiting has been reported and had denies any diarrhea. Patient did have white count of 8.68, creatinine is 13, repeat peritoneal fluid white count is down to 168, vancomycin and was 9.6 patient presented hospital abdominal pain cloudy peritoneal fluid did have a significant elevated white count in the peritoneal fluid likely secondary to PD catheter associated peritonitis patient did not have any evidence of abdominal infection at the site of insertion of the PD catheter he will need to cover for the gram-positive skin emelina to the likely pathogen underlying gram-negative infection less likely not excluded -patient also have evidence of ileus on the CT may be contributing some of her abdominal pain -patient has received a dose of vancomycin today as the patient vancomycin and was 9.6, the patient will continue with Fortaz with peritoneal dialysis daily, until the cultures are finalized 11/05. Patient seen and examined. States abdominal pain has improved 11/06. Patient seen and examined. Nephrology plan to switch patient to hemodialysis. NG tube in place. Still having abdominal pain 11/07. Patient seen and examined. WBC this morning 13.75, hemoglobin 7, platelet count 305. Patient undergoing hemodialysis today 11/08. Patient seen and examined. Patient underwent status post robotic- assisted laparoscopic lysis of adhesions and removal of peritoneal dialysis catheter for small bowel obstruction, bacterial peritonitis and right ovarian cyst abscess. Currently on clear liquid diet. Abdominal pain has improved 11/09. Patient seen and examined hemoglobin this morning is 6.7, will order 1 unit of packed red blood cell. Diet advanced to regular 11/10. Patient seen and examined. Denies abdominal pain. Tolerating regular diet 11/11. Patient seen and examined. ID waiting on catheter tip and OR cultures 11/12. Patient seen and examined. Tolerating diet. Patient has persistent leukocytosis, WBC 30.47. Repeat CT abdominal and pelvis done on 11/11 showed mild proximal small bowel dilatation with scattered small bowel wall thickening. Moderate abdominopelvic ascites with intraperitoneal dialysis catheter 11/13. Patient seen and examined. Patient underwent Exploratory laparotomy with lysis of adhesions, Sigmoid colectomy, Descending ostomy for Manuelito's procedure on 11/12 816. Patient seen and examined. patient received 1 unit of packed red blood cells this morning 11/15. Patient seen and examined. White count this morning is 20.7, hemoglobin 7.6. Sodium 134, potassium 4.1. Patient had abdominal pain this morning, otherwise states she feels better 11/16. Patient seen and examined. WBC this morning 20.2, hemoglobin 7.5, sodium 133, potassium 4.1, BUN 55 creatinine 7.7. Patient continues to have low appetite 11/17. Patient seen and examined. WBC this morning is 21.7, hemoglobin 7.7, sodium 132, potassium 4, BUN 39, creatinine 5.62. Patient had good ostomy output REVIEW OF SYSTEMS: CONSTITUTIONAL: No fever, no malaise,. CARDIOVASCULAR: No chest pain, no palpitations, no syncope. PULMONARY: No shortness of breath, no cough, GASTROINTESTINAL: As mentioned above NEUROLOGICAL: No headaches, no weakness, PHYSICAL EXAMINATION: GENERAL: The patient is alert and oriented x3, not in any acute distress. Well developed, well nourished. HEENT: Pupils are round and equally reacting to light. EOMI. No scleral icterus. No conjunctival pallor. Normocephalic, atraumatic. No pharyngeal erythema. No thyromegaly. CARDIOVASCULAR: S1 and S2 present. No murmurs, rubs, or gallops. PULMONARY: Chest is clear to auscultation, no wheezing or crackles. ABDOMEN: Soft, nontender, surgical incision seen, ostomy seen, drain in place MUSCULOSKELETAL: No joint swelling or deformity. EXTREMITIES: No cyanosis, clubbing, or pedal edema. NEUROLOGICAL: Gross neurological examination did not reveal any focal deficits. SKIN: No rashes. Assessment and plan Fecal peritonitis due to perforated sigmoid diverticulitis Small bowel obstruction Abdominal pain PD catheter associated peritonitis -Monitor vital signs status post robotic-assisted laparoscopic lysis of adhesions and removal of peritoneal dialysis catheter for small bowel obstruction, bacterial peritonitis and right ovarian cyst abscess on 11/07 Status post Exploratory laparotomy with lysis of adhesions, Sigmoid colectomy, Descending ostomy for Manuelito's procedure on 11/12 Continue wound care Continue pain management Continue IV Zosyn and Flagyl Surgery following ID following End-stage renal disease on peritoneal dialysis , switched to hemodialysis Anemia Hypokalemia; Hyponatremia; Continue hemodialysis per nephrology Hypertension; patient remains on metoprolol 50 mg twice a day along with lisinopril 20 mg twice a day Seizure disorder; patient currently not on anti- seizure medication Anemia; monitor CBC Labs and medication were reviewed.. Continue same treatment. Continue with symptomatic treatment. Resume home medication. Monitor labs and vitals. DVT and GI prophylaxis. Further recommendations as per clinical course of the patient Dictation was produced using [employer] dictation software. please excuse any grammatical, word or spelling errors. Objective - Vital Signs Vital signs: Vital Signs Temp 97.5 F L 11/17/22 07:18 Pulse 75 11/17/22 07:18 Resp 18 11/17/22 07:18 BP 135/86 11/17/22 07:18 Pulse Ox 97 11/17/22 08:39 FiO2 Intake & Output 11/16/22 11/17/22 11/17/22 18:59 06:59 18:59 Intake Total 840 Output Total 2450 Balance -1610 Weight 98.6 kg Intake: IV 540 Lactated Ringers 1,000 ml 240 @ 20 mls/hr IV .Q24H [facility] Rx#:[id number] Piperacillin-Tazobactam 3 100 .375 gm In Sodium Chloride 0.9% 100 ml @ 25 mls/hr IVPB Q12H [facility]AN[facility] Rx# :[id number] metroNIDAZOLE-NS PMX 500 200 mg In Saline 1 100ml.bag @ 100 mls/hr IVPB Q8HR [facility] Rx#:[id number] Hemodialysis 300 Output: Stool 150 Hemodialysis 2300 - Labs CBC & Chem 7: 11/17/22 04:21 11/17/22 04:21 Labs: Abnormal Lab Results - Last 24 Hours (Table) 11/17/22 11/17/22 Range/Units 04:21 04:21 WBC 21.7 H (3.8-10.6) k/uL RBC 2.33 L (3.80-5.40) m/uL Hgb 7.7 L (11.4-16.0) gm/dL Hct 24.1 L (34.0-46.0) % MCV 103.6 H (80.0-100.0) fL RDW 17.6 H (11.5-15.5) % Neutrophils # 19.0 H (1.3-7.7) k/uL Sodium 132 L (137-145) mmol/L Chloride 96 L (98-107) mmol/L BUN 39 H (7-17) mg/dL Creatinine 5.62 H (0.52-1.04) mg/dL Calcium 7.8 L (8.4-10.2) mg/dL Total Protein 5.2 L (6.3-8.2) g/dL Albumin 2.4 L (3.5-5.0) g/dL
--- NOTE | 2022-11-17 14:57 | P.PN ---
Subjective Progress Note Date: 11/17/22 Principal diagnosis: PD catheter associated peritonitis Patient is a 42-year-old female with a past medical history negative for hypertension seizure disorder history of end-stage renal disease on peritoneal dialysis since December 2018 did have 1 previous episode of infection treated with antibiotics patient started having a problem with abdominal pain that started on Saturday that is about 4 days before presentation to the hospital, patient has been diagnosed with peritonitis also have CT abdominal pelvis suggestive of ileus.Patient is status post laparoscopic lysis of adhesion removal of dialysis catheter and drainage of the abscess on 11/07/2022. Patient was taken to the OR late 11/12/2022 status post laparotomy and evidence of perforated sigmoid diverticulitis post sigmoid colectomy and an ostomy on today's evaluation that is 11/17/2022 patient remains to be afebrile, the patient is breathing comfortably on room air patient has been transferred out of ICU denies any chest pain shortness of breath or cough abdominal pain is currently controlled no nausea no vomiting did have output in her colostomy. Patient hemoglobin is 7.7 with a 21.7 creatinine is 5.6 2 repeat abdominal cultures are currently pending. Objective - Vital Signs Vital signs: Vital Signs Temp 97.5 F L 11/17/22 07:18 Pulse 75 11/17/22 07:18 Resp 18 11/17/22 07:18 BP 135/86 11/17/22 07:18 Pulse Ox 97 11/17/22 08:39 FiO2 Intake & Output 11/16/22 11/17/22 11/17/22 18:59 06:59 18:59 Intake Total 840 Output Total 2450 Balance -1610 Weight 98.6 kg Intake: IV 540 Lactated Ringers 1,000 ml 240 @ 20 mls/hr IV .Q24H [facility]ANESSA Rx#:[id number] Piperacillin-Tazobactam 3 100 .375 gm In Sodium Chloride 0.9% 100 ml @ 25 mls/hr IVPB Q12H [facility]ANESSA Rx# :[id number] metroNIDAZOLE-NS PMX 500 200 mg In Saline 1 100ml.bag @ 100 mls/hr IVPB Q8HR VANESSA Rx#:[id number] Hemodialysis 300 Output: Stool 150 Hemodialysis 2300 - Exam GENERAL DESCRIPTION: Middle-aged female lying in bed in no distress RESPIRATORY SYSTEM: Unlabored breathing , decreased breath sounds at bases HEART: S1 S2 regular rate and rhythm , ABDOMEN: Soft , mild abdominal distention and tenderness EXTREMITIES: No edema feet - Labs CBC & Chem 7: 11/17/22 04:21 11/17/22 04:21 Labs: Abnormal Lab Results - Last 24 Hours (Table) 11/17/22 11/17/22 Range/Units 04:21 04:21 WBC 21.7 H (3.8-10.6) k/uL RBC 2.33 L (3.80-5.40) m/uL Hgb 7.7 L (11.4-16.0) gm/dL Hct 24.1 L (34.0-46.0) % MCV 103.6 H (80.0-100.0) fL RDW 17.6 H (11.5-15.5) % Neutrophils # 19.0 H (1.3-7.7) k/uL Sodium 132 L (137-145) mmol/L Chloride 96 L (98-107) mmol/L BUN 39 H (7-17) mg/dL Creatinine 5.62 H (0.52-1.04) mg/dL Calcium 7.8 L (8.4-10.2) mg/dL Total Protein 5.2 L (6.3-8.2) g/dL Albumin 2.4 L (3.5-5.0) g/dL Assessment and Plan (1) Peritonitis associated with continuous ambulatory peritoneal dialysis Current Visit: Yes Status: Acute Code(s): T80.89XA - OTH COMP FOL INFUSION, TRANSFUSE AND THERAPUTC INJECT, INIT; K65.9 - PERITONITIS, UNSPECIFIED; Z99.2 - DEPENDENCE ON RENAL DIALYSIS SNOMED Code(s): 421562274 Plan: 1patient presented hospital abdominal pain cloudy peritoneal fluid did have a significant elevated white in the peritoneal fluid likely secondary to PD catheter associated peritonitis patient did not have any evidence of abdominal infection at the site of insertion of the PD catheter patient also have evidence of ileus on the CT may be contributing some of her abdominal pain, patient did have a small bowel follow-through, did show delayed transit of contrast through the bowel with no evidence of small bowel obstruction 2-patient is status post laparoscopic lysis of adhesion removal of the dialysis catheter and drainage of the abscess abdominal cultures currently growing anaerobic gram-negative bacilli 3patient wasnoticed to have worsening of her white count and the patient was noticed to have more abdominal tenderness , patient did have evidence of perforated sigmoid colitis status post sigmoid colectomy and diverting colostomy along with drainage of the abscess cultures currently pending 4-Patient remains to be afebrile White count slightly elevated and will be monitored closely repeat abdominal cultures currently pending continue patient on Zosyn mother at the bedside questions Answered Dictation was produced using [employer] dictation software. please excuse any grammatical, word or spelling errors.
[2022-11-18] MEDS: ACETAMINOPHEN TAB 500 MG TAB PO SCH ×5 (00:36→23:49)
[2022-11-18] MEDS: PIPERACILLIN-TAZOBACTAM 3.375 GM in SODIUM CHLORIDE 0.9% 100 ML IVPB SCH ×3 (00:36→22:35)
[2022-11-18] MEDS: HYDROmorphone 1 MG/ML 1 ML SYRINGE IVP PRN ×5 (01:33→22:43)
[2022-11-18] MEDS: LACTATED RINGERS 1,000 ML IV SCH (01:48)
[2022-11-18] MEDS: SEVELAMER 800 MG TAB PO SCH ×4 (06:24→16:50)
[2022-11-18] MEDS: ENOXAPARIN 30 MG/0.3 ML SYRINGE SQ SCH (07:46)
[2022-11-18] MEDS: METOPROLOL TARTRATE 25 MG TAB PO SCH ×2 (07:46→20:22)
[2022-11-18] MEDS: SIMETHICONE 80 MG CHEWABLE PO SCH ×3 (07:46→20:22)
[2022-11-18] MEDS: lisinopriL 10 MG TAB PO SCH ×2 (07:46→20:22)
[2022-11-18] MEDS: RENAPLEX D PO SCH (07:46)
--- NOTE | 2022-11-18 10:47 | P.PN ---
Subjective Progress Note Date: 11/18/22 Principal diagnosis: Abdominal pain. Pulmonary consult dated 11/13/2022. 42-year-old female who was admitted back on November 02, for abdominal pain. She came into the emergency department with abdominal pain, going on for 2 or 3 days prior to admission. The patient apparently receives peritoneal dialysis every 6 hours, and was recently diagnosed with peritonitis. She was started on antibiotics, and is been in the hospital since the fourth. I was notified yesterday, by Dr. Terrazas, that the patient was needing surgery, and in the intensive care unit bed. She suspected a perforated sigmoid diverticuli, and the patient had a number of issues including renal failure, electrolyte disturbance, hypotension, etc. In addition, she was thought to be septic. The patient went to the operating room yesterday, and had an exploratory laparotomy, sigmoid colectomy, Brandon's pouch, abdominal washout, placement of the FRANCESCA drain, and placement of the wound VAC. She was successfully extubated in recovery, she is currently in the intensive care unit, room 258. She's current ly on 4 L of oxygen by nasal cannula. She's getting lactated Ringer's at 20 mL an hour. She continues on Zosyn and Flagyl. White count is 35.5, hemoglobin 9.6, hematocrit 30, and platelet count 367,000. Sodium 133, potassium 5.5, chlorides 98, CO2 16, anion gap 19, BUN 50, creatinine 8.34. Peritoneal fluid cultures are positive for Bacteroides. Progress note dated 11/14/2022. 42-year-old female, postop day #1, status post exploratory laparotomy with lysis of adhesions, sigmoid colectomy, Brandon's procedure, abdominal washout, removal of the FRANCESCA drain, placement of the FRANCESCA drain, and placement of a wound VAC, for fecal peritonitis and perforated sigmoid diverticulitis. The patient is seen today in room 258. She is currently undergoing hemodialysis. She is on 2 L of oxygen. The plan for hemodialysis today is removed 1.5 L of fluid. The patient is getting lactated Ringer's at 20 mL an hour. In addition, she'll receive 1 unit of PRBCs. She's currently on Zosyn and Flagyl. 3 years ago, before starting peritoneal dialysis, she was receiving hemodialysis. White count 25, hemoglobin 6.8, hematocrit 21.9, and platelet count normal. Sodium 134, potassium 4.4, chlorides 98, CO2 24, BUN 43, and creatinine 7.66. Peritoneal fluid was positive for Bacteroides. No chest x-ray today. Progress note dated 11/15/2022. 42-year-old female postop day #2, status post exploratory laparotomy, with lysis of adhesions, sigmoid colectomy, Brandon's procedure, among other things. The patient seems be doing reasonably well. She seen today in room 258. She's currently on 2 L of oxygen. She's getting lactated Ringer's at KVO. She had dialysis yesterday, and 1.5 L of fluid was removed. She's getting Zosyn and Flagyl. She has been stable overnight according to the nurses. White count was 20.7, hemoglobin 7.6, hematocrit 23.8, and platelet count 359,000. Sodium 134, potassium 4.1, chlorides 96, CO2 25, BUN 35, and creatinine 5.83. Progress note dated 11/16/2022. 42-year-old female postop day #3, status post exploratory laparotomy. Currently, the patient is seen today in room 258. She is on 2 L of oxygen, saline at KVO, and is scheduled to have hemodialysis today. She continues on Zosyn and Flagyl. Labs today include a white count 20.2, hemoglobin 7.5, hematocrit 23.5, and a normal platelet count. Sodium 133, potassium 4.1, chlorides 96, CO2 19, anion gap 18, BUN 55, and creatinine 7.72. Peritoneal fluid cultures continued to show Bacteroides. No recent chest x-ray. Progress note dated 11/18/2022. 42-year-old female, postop day #5, status post exploratory laparotomy. The patient is resting comfortably in room 452. We have been seeing her every day. She's currently on room air. Saturations are 95%. She's getting lactated Ringer's at 20 mL an hour. He is on Zosyn. She is using her incentive spirometer. She was out of bed and up in the chair yesterday. No new labs today. Labs from November 17 have been reviewed. Microbiologic samples continued to show Bacteroides. Objective - Vital Signs Vital signs: Vital Signs Temp 98.3 F 11/18/22 07:03 Pulse 75 11/18/22 07:03 Resp 16 11/18/22 07:03 BP 146/89 11/18/22 07:03 Pulse Ox 95 11/18/22 07:03 FiO2 Intake & Output 11/17/22 11/18/22 11/18/22 18:59 06:59 18:59 Intake Total 720 Output Total 10 Balance 720 -10 Weight 91.6 kg Intake: Oral 720 Output: Drainage 10 RLQ FRANCESCA Drain 10 Other: # Voids 0 0 - Exam No acute distress, oriented 3. Saturations are 95% on room air. HEENT examination is grossly unremarkable. Neck supple. Full range of motion. No adenopathy thyromegaly or neck vein distention. Cardiovascular examination reveals regular rhythm rate. S1-S2 normal. No S3 or S4. No discernible murmur noted. Heart sounds are distant. Heart rate is 75 bpm. Lungs reveal mild scattered rhonchi. Breath sounds equal bilaterally. No wheezes. No crackles. 95% saturation on room air. Abdomen soft, but tender. No bowel sounds. Dressing is noted in place. Extremities are intact. No cyanosis clubbing or edema. Skin is without rash or lesion. Neurologic examination is brief but nonfocal. - Labs CBC & Chem 7: 11/17/22 04:21 11/17/22 04:21 Labs: Abnormal Lab Results - Last 24 Hours (Table) 11/17/22 Range/Units 04:21 Phosphorus 8.1 H (2.4-5.1) mg/dL Microbiology - Last 24 Hours (Table) 11/13/22 03:45 Anaerobic Culture - Final Abdomen Assessment and Plan Assessment: Postop day #5, status post exploratory laparotomy with lysis of adhesions, sigmoid colectomy, Brandon's procedure, abdominal washout, removal of a FRANCESCA drain, placement of a FRANCESCA drain, and placement of a wound VAC, for fecal peritonitis, and perforated sigmoid diverticulitis. Peritoneal sepsis, secondary to Bacteroides species. History of hypertension. History of end-stage renal disease, previously on peritoneal dialysis, now on hemodialysis. History of seizure disorder. History of gout. Anemia of chronic disease. Previous history of tobacco use. History of anxiety. Plan: Plan dated 11/13/2022. The patient is seen today in room 258. She continues on Zosyn and Flagyl. Peritoneal cultures are positive for Bacteroides. The patient is postop day #0. She had an extensive procedure as noted above. Labs, x-rays, medications are reviewed. Prognosis is guarded. She's currently on 4 L of oxygen. We will continue to follow make recommendations along the way. She'll continue in the intensive care unit for the time being. Additional recommendations and suggestions are to follow. Prognosis is certainly guarded. Plan dated 11/14/2022. The patient is seen today in room 258. She's currently receiving hemodialysis. She did have hemodialysis prior to peritoneal dialysis, 3 years ago. The plan is to 1.5 L of fluid today. The patient's hemoglobin was less than 7 and she'll receive 1 unit of packed red blood cells. She's on 2 L of oxygen. Peritoneal fluid was positive for Bacteroides species. The patient is on Zosyn and Flagyl. Additional recommendations and suggestions are forthcoming. Prognosis is guarded. Plan dated 11/15/2022. The patient is again seen today in room 258. She seems to be reasonably stable. She is postoperative day #2. She had an extensive surgical procedure. The patient currently is on 2 L. She's getting lactated Ringer's at KVO. She had hemodialysis yesterday, was 1.5 L of fluid removed. She continues on Zosyn and Flagyl, for her Bacteroides sepsis. The patient may be stable for transfer to the general medical floor, later today. Labs, x-rays, medications are reviewed. We will continue to follow. Prognosis is guarded. Plan dated 11/16/2022. The patient is again seen today in room 258. The patient continues on oxygen at 2 L. Today is postoperative day #3. Labs, x-rays, medications are reviewed. T he patient continues on antibiotics for her infection. Clinically, the patient's doing much better. The patient could be transferred out to the general medical floor. Today is postop day #3. We will continue to follow and make recommendations along the way. Plan dated 11/18/2022. The patient is seen in room 452. The patient is currently on room air. She's getting lactated Ringer's at 20 mL an hour. She continues on Zosyn. Today's postop day number fine. She continues to use incentive spirometer every hour. We also encouraged her to get out of bed, walk around in the room, and sit in her chair. Follow make recommendations along the way. Prognosis is guarded. Time with Patient: Less than 30
--- NOTE | 2022-11-18 11:07 | P.PN ---
Subjective Patient is seen in follow-up for end-stage renal disease. Peritoneal dialysis discontinued 11/06/2022. Tolerating hemodialysis well. Tolerating oral intake. Resting in bed. Family present at bedside. Vital signs are stable. General: No acute distress. HEENT: Head exam is unremarkable. LUNGS: No audible rhonchi or wheezes. HEART: Rate and Rhythm are regular. ABDOMEN: Colostomy noted. EXTREMITITES: No edema. Objective - Vital Signs Vital signs: Vital Signs Temp 98.3 F 11/18/22 07:03 Pulse 75 11/18/22 07:03 Resp 16 11/18/22 07:03 BP 146/89 11/18/22 07:03 Pulse Ox 95 11/18/22 07:03 FiO2 Intake & Output 11/17/22 11/18/22 11/18/22 18:59 06:59 18:59 Intake Total 720 Output Total 10 Balance 720 -10 Weight 91.6 kg Intake: Oral 720 Output: Drainage 10 RLQ FRANCESCA Drain 10 Other: # Voids 0 0 - Labs CBC & Chem 7: 11/17/22 04:21 11/17/22 04:21 Labs: Abnormal Lab Results - Last 24 Hours (Table) 11/17/22 Range/Units 04:21 Phosphorus 8.1 H (2.4-5.1) mg/dL Microbiology - Last 24 Hours (Table) 11/13/22 03:45 Anaerobic Culture - Final Abdomen Assessment and Plan Plan: Assessment: 1. End-stage renal disease maintained on peritoneal dialysis. 2. PD associated peritonitis status post second dose of intraperitoneal vancomycin 11/04/2022. Also received IP Fortaz. Fluid WBC count 4503 on 11/02/2022 and down to 168 11/03/2022. PMNs 93% October 4 an 89% October 5. Fluid culture done prior to admission was positive for E. coli and this admission again positive for bacteroides. PMN count remains elevated. PD cath eter discontinued 11/07/2022. 3. Small bowel obstruction. Surgery following. Status post laparoscopic lysis of adhesions and removal of PD catheter 11/07/2022. Subsequently developed fecal peritonitis from perforated sigmoid diverticulitis and underwent exploratory laparotomy with lysis of edema in the sigmoid colectomy on 11/13/2022. 4. Anemia of chronic kidney disease. On Aranesp. 5. Hypertension with chronic kidney disease. Stable. 6. Chronic kidney disease mineral bone disease. Phosphorus level 10.4 dated 11/09/2022. Phosphorus level 8.1 dated 11/17/2022. On Renvela - dose incre ased. Plan: Hemodialysis Saturday. Antibiotics per infectious disease. Discussed with surgery team. Due to severe adhesions, she will not be a candidate for peritoneal dialysis in the future. Discussed workup for kidney transplant upon discharge.
[2022-11-18] MEDS: PANTOPRAZOLE 40 MG/10 ML VIAL IV SCH (11:55)
--- NOTE | 2022-11-18 12:15 | P.PN ---
Subjective Progress Note Date: 11/18/22 42-year-old female, history of hypertension, seizure disorder, chronic kidney disease/dialysis who presents to the emergency department for abdominal pain. Patient states that abdominal pain has been going on for 2-3 days. She receives peritoneal dialysis every 6 hours and was diagnosed with peritonitis 2 days ago by the individual who manages her peritoneal dialysis. She was started on vancomycin and a cephalosporin antibiotic that she cannot recall the name of. She been on antibiotics for 2 days. She puts the medications in her dialysis bags. States that she continues to have abdominal pain despite the antibiotics. Reports that she has not had a bowel movement in 2 days, and prior to that she only had runny stool. Also reports ongoing nausea and vomiting and feels dehydrated. Denies any fevers, chills, sore throat, cough, dyspnea, chest pain, palpitations, abdominal pain, nausea, vomiting, diarrhea, back pain, or headaches. -- Blood work completed reveals a WBC of 8.1, hemoglobin of 8.2, platelet count of 261, sodium 126, potassium 3.4, BUN/creatinine of 52/12.0, consistent with end-stage renal disease, lactic acid levels of 1.5 Computed tomography scan of the abdomen and pelvis obtained revealing a small bowel obstruction. She does also have moderate abdominopelvic ascites and enteritis. Patient admitted to medicine for further management of small bowel obstruction and hyponatremia. Consult placed for general surgery regarding the small bowel obstruction. Consult was also placed for nephrology given that she is a peritoneal dialysis patient. 11/04/2022 the patient is seen and evaluated in room at bedside; patient remains afebrile and is currently breathing comfortably on room air sat complaint of abdominal distention and some discomfort, NG has been placed in by surgery no vomiting has been reported and had denies any diarrhea. Patient did have white count of 8.68, creatinine is 13, repeat peritoneal fluid white count is down to 168, vancomycin and was 9.6 patient presented hospital abdominal pain cloudy peritoneal fluid did have a significant elevated white count in the peritoneal fluid likely secondary to PD catheter associated peritonitis patient did not have any evidence of abdominal infection at the site of insertion of the PD catheter he will need to cover for the gram-positive skin emelina to the likely pathogen underlying gram-negative infection less likely not excluded -patient also have evidence of ileus on the CT may be contributing some of her abdominal pain -patient has received a dose of vancomycin today as the patient vancomycin and was 9.6, the patient will continue with Fortaz with peritoneal dialysis daily, until the cultures are finalized 11/05. Patient seen and examined. States abdominal pain has improved 11/06. Patient seen and examined. Nephrology plan to switch patient to hemodialysis. NG tube in place. Still having abdominal pain 11/07. Patient seen and examined. WBC this morning 13.75, hemoglobin 7, platelet count 305. Patient undergoing hemodialysis today 11/08. Patient seen and examined. Patient underwent status post robotic- assisted laparoscopic lysis of adhesions and removal of peritoneal dialysis catheter for small bowel obstruction, bacterial peritonitis and right ovarian cyst abscess. Currently on clear liquid diet. Abdominal pain has improved 11/09. Patient seen and examined hemoglobin this morning is 6.7, will order 1 unit of packed red blood cell. Diet advanced to regular 11/10. Patient seen and examined. Denies abdominal pain. Tolerating regular diet 11/11. Patient seen and examined. ID waiting on catheter tip and OR cultures 11/12. Patient seen and examined. Tolerating diet. Patient has persistent leukocytosis, WBC 30.47. Repeat CT abdominal and pelvis done on 11/11 showed mild proximal small bowel dilatation with scattered small bowel wall thickening. Moderate abdominopelvic ascites with intraperitoneal dialysis catheter 11/13. Patient seen and examined. Patient underwent Exploratory laparotomy with lysis of adhesions, Sigmoid colectomy, Descending ostomy for Manuelito's procedure on 11/12 816. Patient seen and examined. patient received 1 unit of packed red blood cells this morning 11/15. Patient seen and examined. White count this morning is 20.7, hemoglobin 7.6. Sodium 134, potassium 4.1. Patient had abdominal pain this morning, otherwise states she feels better 11/16. Patient seen and examined. WBC this morning 20.2, hemoglobin 7.5, sodium 133, potassium 4.1, BUN 55 creatinine 7.7. Patient continues to have low appetite 11/17. Patient seen and examined. WBC this morning is 21.7, hemoglobin 7.7, sodium 132, potassium 4, BUN 39, creatinine 5.62. Patient had good ostomy output 11/18. Patient seen and examined. Mother at the bedside. Patient continues to be afebrile. Appetite has improved. States abdominal pain has improved. Denies any nausea or vomiting REVIEW OF SYSTEMS: CONSTITUTIONAL: No fever, no malaise,. CARDIOVASCULAR: No chest pain, no palpitations, no syncope. PULMONARY: No shortness of breath, no cough, GASTROINTESTINAL: As mentioned above NEUROLOGICAL: No headaches, no weakness, PHYSICAL EXAMINATION: GENERAL: The patient is alert and oriented x3, not in any acute distress. Well developed, well nourished. HEENT: Pupils are round and equally reacting to light. EOMI. No scleral icterus. No conjunctival pallor. Normocephalic, atraumatic. No pharyngeal erythema. No thyromegaly. CARDIOVASCULAR: S1 and S2 present. No murmurs, rubs, or gallops. PULMONARY: Chest is clear to auscultation, no wheezing or crackles. ABDOMEN: Soft, nontender, surgical incision seen, ostomy seen, drain in place MUSCULOSKELETAL: No joint swelling or deformity. EXTREMITIES: No cyanosis, clubbing, or pedal edema. NEUROLOGICAL: Gross neurological examination did not reveal any focal deficits. SKIN: No rashes. Assessment and plan Fecal peritonitis due to perforated sigmoid diverticulitis Small bowel obstruction Abdominal pain PD catheter associated peritonitis -Monitor vital signs status post robotic-assisted laparoscopic lysis of adhesions and removal of peritoneal dialysis catheter for small bowel obstruction, bacterial peritonitis and right ovarian cyst abscess on 11/07 Status post Exploratory laparotomy with lysis of adhesions, Sigmoid colectomy, Descending ostomy for Manuelito's procedure on 11/12 Continue wound care Encourage ambulation Encourage use of I-S Continue pain management Continue IV Zosyn Surgery following ID following End-stage renal disease on peritoneal dialysis , switched to hemodialysis Anemia Hypokalemia; Hyponatremia; Continue hemodialysis per nephrology Hypertension; patient remains on metoprolol 50 mg twice a day along with lisinopril 20 mg twice a day Seizure disorder; patient currently not on anti- seizure medication Anemia; monitor CBC Labs and medication were reviewed.. Continue same treatment. Continue with symptomatic treatment. Resume home medication. Monitor labs and vitals. DVT and GI prophylaxis. Further recommendations as per clinical course of the patient Dictation was produced using [employer] dictation software. please excuse any grammatical, word or spelling errors. Objective - Vital Signs Vital signs: Vital Signs Temp 98.3 F 11/18/22 07:03 Pulse 75 11/18/22 07:03 Resp 16 11/18/22 07:03 BP 146/89 11/18/22 07:03 Pulse Ox 95 11/18/22 07:03 FiO2 Intake & Output 11/17/22 11/18/22 11/18/22 18:59 06:59 18:59 Intake Total 720 Output Total 10 Balance 720 -10 Weight 91.6 kg Intake: Oral 720 Output: Drainage 10 RLQ FRANCESCA Drain 10 Other: # Voids 0 0 - Labs CBC & Chem 7: 11/17/22 04:21 11/17/22 04:21 Labs: Abnormal Lab Results - Last 24 Hours (Table) 11/17/22 Range/Units 04:21 Phosphorus 8.1 H (2.4-5.1) mg/dL Microbiology - Last 24 Hours (Table) 11/13/22 03:45 Anaerobic Culture - Final Abdomen
--- NOTE | 2022-11-18 14:22 | P.PN ---
Progress Note - Text Progress Note Date: 11/18/22 The patient is resting in her chair. She is tolerating clear liquids. She has some complaints of incisional pain. She is requesting pain medication. On exam vital signs appear stable. Abdomen is soft. Incision sites are clean dry tach. Status post sigmoid colon resection. Patient will continue clear liquid diet. She was given Dilaudid 1 mg IV every 6 when necessary for pain medications.
[2022-11-19] MEDS: LACTATED RINGERS 1,000 ML IV SCH (03:21)
[2022-11-19] MEDS: HYDROmorphone 1 MG/ML 1 ML SYRINGE IVP PRN ×2 (04:24→20:21)
[2022-11-19] MEDS: ACETAMINOPHEN TAB 500 MG TAB PO SCH ×3 (05:59→17:10)
[2022-11-19] MEDS: SEVELAMER 800 MG TAB PO SCH ×3 (06:24→17:11)
--- NOTE | 2022-11-19 08:00 | P.PN ---
Subjective Progress Note Date: 11/18/22 Principal diagnosis: PD catheter associated peritonitis Patient is a 42-year-old female with a past medical history negative for hypertension seizure disorder history of end-stage renal disease on peritoneal dialysis since December 2018 did have 1 previous episode of infection treated with antibiotics patient started having a problem with abdominal pain that started on Saturday that is about 4 days before presentation to the hospital, patient has been diagnosed with peritonitis also have CT abdominal pelvis suggestive of ileus.Patient is status post laparoscopic lysis of adhesion removal of dialysis catheter and drainage of the abscess on 11/07/2022. Patient was taken to the OR late 11/12/2022 status post laparotomy and evidence of perforated sigmoid diverticulitis post sigmoid colectomy and an ostomy on today's evaluation that is 11/18/2022, the patient remains to be afebrile patient is breathing comfortably on room air denies any chest pain shortness of breath or cough abdominal pain has decreased in intensity no nausea vomiting did have output in her colostomy No CBC or BMP was done today, the patient abdominal culture at the time of surgery 11/13/2022 so far negative Objective - Vital Signs Vital signs: Vital Signs Temp 98.3 F 11/18/22 07:03 Pulse 75 11/18/22 07:03 Resp 16 11/18/22 07:03 BP 146/89 11/18/22 07:03 Pulse Ox 95 11/18/22 07:03 FiO2 Intake & Output 11/17/22 11/18/22 11/18/22 18:59 06:59 18:59 Intake Total 720 Output Total 10 Balance 720 -10 Weight 91.6 kg Intake: Oral 720 Output: Drainage 10 RLQ FRANCESCA Drain 10 Other: # Voids 0 0 - Exam GENERAL DESCRIPTION: Middle-aged female lying in bed in no distress RESPIRATORY SYSTEM: Unlabored breathing , decreased breath sounds at bases HEART: S1 S2 regular rate and rhythm , ABDOMEN: Soft , mild abdominal distention and tenderness EXTREMITIES: No edema feet - Labs CBC & Chem 7: 11/17/22 04:21 11/17/22 04:21 Labs: Abnormal Lab Results - Last 24 Hours (Table) 11/17/22 Range/Units 04:21 Phosphorus 8.1 H (2.4-5.1) mg/dL Microbiology - Last 24 Hours (Table) 11/13/22 03:45 Anaerobic Culture - Final Abdomen Assessment and Plan (1) Peritonitis associated with continuous ambulatory peritoneal dialysis Current Visit: Yes Status: Acute Code(s): T80.89XA - OTH COMP FOL INFUSION, TRANSFUSE AND THERAPUTC INJECT, INIT; K65.9 - PERITONITIS, UNSPECIFIED; Z99.2 - DEPENDENCE ON RENAL DIALYSIS SNOMED Code(s): 641308902 Plan: 1patient presented hospital abdominal pain cloudy peritoneal fluid did have a significant elevated white in the peritoneal fluid likely secondary to PD catheter associated peritonitis patient did not have any evidence of abdominal infection at the site of insertion of the PD catheter patient also have evidence of ileus on the CT may be contributing some of her abdominal pain, patient did have a small bowel follow-through, did show delayed transit of contrast through the bowel with no evidence of small bowel obstruction 2-patient is status post laparoscopic lysis of adhesion removal of the dialysis catheter and drainage of the abscess abdominal cultures currently growing angelo erobic gram-negative bacilli 3patient wasnoticed to have worsening of her white count and the patient was noticed to have more abdominal tenderness , patient did have evidence of perforated sigmoid colitis status post sigmoid colectomy and diverting colostomy along with drainage of the abscess cultures Are so far negative. 4patient seem to have shown some clinical improvement is afebrile we will continue patient on Zosyn repeat CBC and CRP with a.m. lab and monitor clinical course closely Dictation was produced using [employer] dictation software. please excuse any grammatical, word or spelling errors.
[2022-11-19] MEDS: lisinopriL 10 MG TAB PO SCH ×2 (09:43→20:21)
[2022-11-19] MEDS: PANTOPRAZOLE 40 MG/10 ML VIAL IV SCH (09:43)
[2022-11-19] MEDS: METOPROLOL TARTRATE 25 MG TAB PO SCH ×2 (09:43→20:21)
[2022-11-19] MEDS: RENAPLEX D PO SCH (09:44)
--- NOTE | 2022-11-19 10:14 | P.PN ---
Subjective Progress Note Date: 11/19/22 CHIEF COMPLAINT: Abdominal pain HISTORY OF PRESENT ILLNESS: The patient is a 42-year-old female status post exploratory laparotomy, descending colostomy for perforated diverticulitis, 11/13/2022. She has been transferred to [facility]. Her mother is at bedside. Pain well controlled. She is undergoing dialysis. She is tolerating diet. Ostomy functioning. ROS: No fevers or chills. No shortness of breath. PHYSICAL EXAM: VITAL SIGNS: Reviewed CONSTITUTIONAL: Well developed and in mild distress. EYES: Conjuctivae without sclera icterus. Extraocular movements grossly intact. HEAD, EARS, NOSE, THROAT: Moist buccal mucosa. Head is atraumatic, normocephalic. Hears conversational speech. No nasal drainage. RESPIRATORY: Non-labored respirations and equal bilateral excursions. CARDIOVASCULAR: Palpable 2+ radial pulses. ABDOMEN: FRANCESCA serosanguineous. Incisional wound VAC system intact. Ostomy with flatus and stool. MUSCULOSKELETAL: No gross deformity of the lower extremities noted. No clubbing. No cyanosis. SKIN: Good skin turgor. Well perfused. NEUROLOGIC: Cranial nerves II through XII grossly intact. No focal or lateralizing signs. PSYCH: Appropriate affect. Alert and oriented to person, place and time. CLINICAL LABS: Reviewed. WBC elevated 21,000 down from 35,000 ASSESSMENT: 1. Perforated sigmoid diverticulitis 2. Small bowel obstruction 3. Sepsis 4. End-stage renal disease 5. Chronic anemia PLAN: 1. May need PICC line for IV antibiotic management 2. Discharge home pending improvement of leukocytosis 3. Discontinue incisional wound VAC in 48 hours 4. Ostomy teaching with home health care Objective - Vital Signs Vital signs: Vital Signs Temp 98.1 F 11/19/22 06:50 Pulse 75 11/19/22 06:50 Resp 17 11/19/22 06:50 BP 150/87 11/19/22 06:50 Pulse Ox 97 11/19/22 08:58 FiO2 Intake & Output 11/18/22 11/19/22 11/19/22 18:59 06:59 18:59 Output Total 460 10 Balance -460 -10 Weight 91.6 kg 91.8 kg Output: Drainage 10 10 RLQ FRANCESCA Drain 10 10 Stool 450 Other: Voiding Method Toilet # Voids 1 - Labs CBC & Chem 7: 08/19/23 04:21 11/17/22 04:21 Labs: Abnormal Lab Results - Last 24 Hours (Table) 11/17/22 Range/Units 04:21 Phosphorus 8.1 H (2.4-5.1) mg/dL
[2022-11-19 10:53] LABS: Basophils % (A) 0.5 %; Eosinophils # (A) 0.19 X 10*3/uL (0.04-0.35); Eosinophils % (A) 0.9 %; HCT 21.1 % (37.2-46.3); HGB 6.7 d/dL (12.0-15.0); Lymphocytes # (A) 1.33 X 10*3/uL (0.90-5.00); Lymphocytes % (A) 6.2 %; MCH 33.2 pg (27.0-32.0); MCHC 31.8 d/dL (32.0-37.0); MCV 104.5 FL (80.0-97.0); Mean Platelet Volume 10.1 FL (9.5-12.2); Monocytes # (A) 0.94 X 10*3/uL (0.20-1.00); Monocytes % (A) 4.4 %; NRBC Per 100 WBC 0 X 10*3/uL (0.00-0.01); Neutrophils # (A) 18.66 X 10*3/uL (1.80-7.70); Neutrophils % (A) 86.3 %; Platelet Count 401 X 10*3/uL (140-440); RBC 2.02 X 10*6/uL (4.10-5.20); RDW 17.3 % (11.5-14.5); WBC 21.58 X 10*3/uL (4.50-10.00)
[2022-11-19 11:03] LABS: ALT 9 U/L (8-44); AST 14 U/L (13-35); Albumin 2.3 d/dL (3.8-4.9); Albumin/Globulin Ratio 0.88 Ratio (1.60-3.17); Alkaline Phosphatase 63 U/L (41-126); BUN/Creat Ratio 5.93 Ratio (12.00-20.00); Blood Urea Nitrogen 63.4 mg/dL (9.0-27.0); Calcium 8.4 mg/dL (8.7-10.3); Carbon Dioxide 18.2 mmol/L (21.6-31.8); Chloride 94 mmol/L (96-109); Globulin 2.6 d/dL (1.6-3.3); Glucose 74 mg/dL (70-110); Potassium 4.2 mmol/L (3.5-5.5); Sodium 135 mmol/L (135-145); Total Bilirubin 0.2 mg/dL (0.3-1.2); Total Protein 4.9 d/dL (6.2-8.2)
--- NOTE | 2022-11-19 12:29 | P.PN ---
Subjective Patient is seen in follow-up for end-stage renal disease. Peritoneal dialysis discontinued 11/06/2022. Tolerating hemodialysis well. Tolerating oral intake. Resting in bed. Hemoglobin 6.7 today. Scheduled to receive unit of blood. Family present at bedside. Vital signs are stable. General: No acute distress. HEENT: Head exam is unremarkable. LUNGS: No audible rhonchi or wheezes. HEART: Rate and Rhythm are regular. ABDOMEN: Colostomy noted. EXTREMITITES: No edema. Objective - Vital Signs Vital signs: Vital Signs Temp 98.1 F 11/19/22 06:50 Pulse 75 11/19/22 06:50 Resp 17 11/19/22 06:50 BP 150/87 11/19/22 06:50 Pulse Ox 97 11/19/22 08:58 FiO2 Intake & Output 11/18/22 11/19/22 11/19/22 18:59 06:59 18:59 Output Total 460 10 Balance -460 -10 Weight 91.6 kg 91.8 kg Output: Drainage 10 10 RLQ FRANCESCA Drain 10 10 Stool 450 Other: Voiding Method Toilet # Voids 1 - Labs CBC & Chem 7: 11/19/22 06:44 11/19/22 06:44 Labs: Abnormal Lab Results - Last 24 Hours (Table) 11/19/22 11/19/22 Range/Units 06:44 06:44 WBC 21.58 H (4.50-10.00) X 10*3/uL RBC 2.02 L (4.10-5.20) X 10*6/uL Hgb 6.7 H* (12.0-15.0) d/dL Hct 21.1 L (37.2-46.3) % MCV 104.5 H (80.0-97.0) FL MCH 33.2 H (27.0-32.0) pg MCHC 31.8 L (32.0-37.0) d/dL RDW 17.3 H (11.5-14.5) % Neutrophils # 18.66 H (1.80-7.70) X 10*3/uL Chloride 94 L (96-109) mmol/L Carbon Dioxide 18.2 L (21.6-31.8) mmol/L Anion Gap 22.80 H (4.00-12.00) mmol/L BUN 63.4 H (9.0-27.0) mg/dL Creatinine 10.7 H* (0.6-1.5) mg/dL Est GFR (CKD-EPI) 4 L (>=60) BUN/Creatinine Ratio 5.93 L (12.00-20.00) Ratio Calcium 8.4 L (8.7-10.3) mg/dL Total Bilirubin 0.2 L (0.3-1.2) mg/dL Total Protein 4.9 L (6.2-8.2) d/dL Albumin 2.3 L (3.8-4.9) d/dL Albumin/Globulin Ratio 0.88 L (1.60-3.17) Ratio Assessment and Plan Plan: Assessment: 1. End-stage renal disease maintained on peritoneal dialysis. 2. PD associated peritonitis status post second dose of intraperitoneal vancomycin 11/04/2022. Also received IP Fortaz. Fluid WBC count 4503 on 11/02/2022 and down to 168 11/03/2022. PMNs 93% October 4 an 89% October 5. Fluid culture done prior to admission was positive for E. coli and this admission again positive for bacteroides. PMN count remains elevated. PD catheter discontinued 11/07/2022. 3. Small bowel obstruction. Surgery following. Status post laparoscopic lysis of adhesions and removal of PD catheter 11/07/2022. Subsequently developed fecal peritonitis from perforated sigmoid diverticulitis and underwent exploratory laparotomy with lysis of edema in the sigmoid colectomy on 11/13/2022. 4. Anemia of chronic kidney disease. On Aranesp. Hemoglobin 6.7 today. No active bleeding. 5. Hypertension with chronic kidney disease. Stable. 6. Chronic kidney disease mineral bone disease. Phosphorus level 10.4 dated 11/09/2022. Phosphorus level 8.1 dated 11/17/2022. On Renvela - dose increa sed. 7. Metabolic acidosis secondary to chronic kidney disease. Expect improvement post dialysis. Plan: Currently she was undergoing hemodialysis. IV DDAVP 1 dose today. Antibiotics per infectious disease. Discussed with surgery team. Due to severe adhesions, she will not be a candidate for peritoneal dialysis in the future. Discussed workup for kidney transplant upon discharge.
[2022-11-19] MEDS: ENOXAPARIN 30 MG/0.3 ML SYRINGE SQ SCH (12:42)
[2022-11-19] MEDS: PIPERACILLIN-TAZOBACTAM 3.375 GM in SODIUM CHLORIDE 0.9% 100 ML IVPB SCH ×2 (12:42→22:29)
[2022-11-19] MEDS ORDERED: DESMOPRESSIN ACETATE 20 MCG in SODIUM CHLORIDE 0.9% 50 ML IVPB ONE (12:45)
[2022-11-19] MEDS: SIMETHICONE 80 MG CHEWABLE PO SCH ×3 (12:46→22:28)
--- NOTE | 2022-11-19 12:54 | P.PN ---
Subjective Progress Note Date: 11/19/22 Principal diagnosis: PD catheter associated peritonitis Patient is a 42-year-old female with a past medical history negative for hypertension seizure disorder history of end-stage renal disease on peritoneal dialysis since December 2018 did have 1 previous episode of infection treated with antibiotics patient started having a problem with abdominal pain that started on Saturday that is about 4 days before presentation to the hospital, patient has been diagnosed with peritonitis also have CT abdominal pelvis suggestive of ileus.Patient is status post laparoscopic lysis of adhesion removal of dialysis catheter and drainage of the abscess on 11/07/2022. Patient was taken to the OR late 11/12/2022 status post laparotomy and evidence of perforated sigmoid diverticulitis post sigmoid colectomy and an ostomy on today's evaluation that is 11/19/2022, the patient continues to be afebrile, the patient is breathing comfortably on room air, the patient denies any chest pain shortness of breath or cough abdominal pain has decreased in intensity no nausea vomiting did have output in her colostomy Patient did have a hemoglobin of 6.7 and white count is 21.58, creatinine is 10.7 Objective - Vital Signs Vital signs: Vital Signs Temp 98.1 F 11/19/22 06:50 Pulse 75 11/19/22 06:50 Resp 17 11/19/22 06:50 BP 150/87 11/19/22 06:50 Pulse Ox 97 11/19/22 08:58 FiO2 Intake & Output 11/18/22 11/19/22 11/19/22 18:59 06:59 18:59 Output Total 460 10 Balance -460 -10 Weight 91.6 kg 91.8 kg Output: Drainage 10 10 RLQ FRANCESCA Drain 10 10 Stool 450 Other: Voiding Method Toilet # Voids 1 - Exam GENERAL DESCRIPTION: Middle-aged female lying in bed in no distress RESPIRATORY SYSTEM: Unlabored breathing , decreased breath sounds at bases HEART: S1 S2 regular rate and rhythm , ABDOMEN: Soft , mild abdominal distention and tenderness EXTREMITIES: No edema feet - Labs CBC & Chem 7: 11/19/22 06:44 11/19/22 06:44 Labs: Abnormal Lab Results - Last 24 Hours (Table) 11/19/22 11/19/22 Range/Units 06:44 06:44 WBC 21.58 H (4.50-10.00) X 10*3/uL RBC 2.02 L (4.10-5.20) X 10*6/uL Hgb 6.7 H* (12.0-15.0) d/dL Hct 21.1 L (37.2-46.3) % MCV 104.5 H (80.0-97.0) FL MCH 33.2 H (27.0-32.0) pg MCHC 31.8 L (32.0-37.0) d/dL RDW 17.3 H (11.5-14.5) % Neutrophils # 18.66 H (1.80-7.70) X 10*3/uL Chloride 94 L (96-109) mmol/L Carbon Dioxide 18.2 L (21.6-31.8) mmol/L Anion Gap 22.80 H (4.00-12.00) mmol/L BUN 63.4 H (9.0-27.0) mg/dL Creatinine 10.7 H* (0.6-1.5) mg/dL Est GFR (CKD-EPI) 4 L (>=60) BUN/Creatinine Ratio 5.93 L (12.00-20.00) Ratio Calcium 8.4 L (8.7-10.3) mg/dL Total Bilirubin 0.2 L (0.3-1.2) mg/dL Total Protein 4.9 L (6.2-8.2) d/dL Albumin 2.3 L (3.8-4.9) d/dL Albumin/Globulin Ratio 0.88 L (1.60-3.17) Ratio Assessment and Plan (1) Peritonitis associated with continuous ambulatory peritoneal dialysis Current Visit: Yes Status: Acute Code(s): T80.89XA - OTH COMP FOL INFUSION, TRANSFUSE AND THERAPUTC INJECT, INIT; K65.9 - PERITONITIS, UNSPECIFIED; Z99.2 - DEPENDENCE ON RENAL DIALYSIS SNOMED Code(s): 532760544 Plan: 1patient presented hospital abdominal pain cloudy peritoneal fluid did have a significant elevated white in the peritoneal fluid likely secondary to PD catheter associated peritonitis patient did not have any evidence of abdominal infection at the site of insertion of the PD catheter patient also have evidence of ileus on the CT may be contributing some of her abdominal pain, patient did have a small bowel follow-through, did show delayed transit of contrast through the bowel with no evidence of small bowel obstruction 2-patient is status post laparoscopic lysis of adhesion removal of the dialysis catheter and drainage of the abscess abdominal cultures currently growing anaerobic gram-negative bacilli 3patient wasnoticed to have worsening of her white count and the patient was noticed to have more abdominal tenderness , patient did have evidence of perforated sigmoid colitis status post sigmoid colectomy and diverting colostomy along with drainage of the abscess cultures Are so far negative. 4patient seem to have shown some clinical improvement is afebrile , however the white count remains to be elevated we will add FLAGYL for better coverage for bacteroids and continue with the Zosyn and monitor clinical course closely Mother at the bedside questions answered Dictation was produced using [employer] dictation software. please excuse any grammatical, word or spelling errors. Time with Patient: Less than 30
--- NOTE | 2022-11-19 15:12 | P.PN ---
Subjective Progress Note Date: 11/19/22 Patient is evaluated today resting in bed receiving hemodialysis. Postoperative day #6 exploratory laparotomy with lysis of adhesions, sigmoid colectomy, ostomy formation, abdominal lavage, closed with a prevana wound VAC system. Reports abdominal pain is controlled with current regimen. Midline incision dressing clean dry and intact. Patient has FRANCESCA drain in place to the right abdomen. White count today 21.58 patient remains on IV zosyn and followed by ID. Creatinine 10.7 today. Hemoglobin 6.7 patient will receive 1 unit of PRBC. Review of Systems Constitutional: Denied any fatigue denied any fever. Cardio vascular: denied any chest pain, palpitations Gastrointestinal: denied any nausea, vomiting, diarrhea, reports mild abdominal pain Pulmonary: Denied any shortness of breath cough Neurologic denied any new focal deficits All inpatient medications were reviewed and appropriate changes in these medications as dictated in the interval history and assessment and plan. PHYSICAL EXAMINATION: GENERAL: The patient is alert and oriented x3, not in any acute distress. Well developed, well nourished. HEENT: Pupils are round and equally reacting to light. EOMI. No scleral icterus. No conjunctival pallor. Normocephalic, atraumatic. No pharyngeal erythema. No thyromegaly. CARDIOVASCULAR: S1 and S2 present. No murmurs, rubs, or gallops. PULMONARY: Chest is clear to auscultation, no wheezing or crackles. ABDOMEN: Soft, tender, nondistended, normoactive bowel sounds. No palpable organomegaly. Midline dressing intact, FRANCESCA drain RLQ. Ostomy present with semiformed brown stool. MUSCULOSKELETAL: No joint swelling or deformity. EXTREMITIES: No cyanosis, clubbing, or pedal edema. NEUROLOGICAL: Gross neurological examination did not reveal any focal deficits. Diffuse weakness SKIN: No rashes. 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 Dr. Yuki MD I have performed a history and physical examination and medical decision making of this patient, discussed the same with the dictator, and agree with the dictators assessment and plan as written, documented as a scribe. Based on total visit time, I have performed more than 50% of this visit. Objective - Vital Signs Vital signs: Vital Signs Temp 98.1 F 11/19/22 06:50 Pulse 75 11/19/22 06:50 Resp 17 11/19/22 06:50 BP 150/87 11/19/22 06:50 Pulse Ox 97 11/19/22 08:58 FiO2 Intake & Output 11/18/22 11/19/22 11/19/22 18:59 06:59 18:59 Output Total 460 10 Balance -460 -10 Weight 91.6 kg 91.8 kg Output: Drainage 10 10 RLQ FRANCESCA Drain 10 10 Stool 450 Other: Voiding Method Toilet # Voids 1 - Labs CBC & Chem 7: 11/19/22 06:44 11/19/22 06:44 Labs: Abnormal Lab Results - Last 24 Hours (Table) 11/17/22 Range/Units 04:21 Phosphorus 8.1 H (2.4-5.1) mg/dL Assessment and Plan Time with Patient: Less than 30
[2022-11-19] MEDS: metroNIDAZOLE-NS PMX 500 MG in SALINE 1 100ML.BAG IVPB SCH (16:27)
--- NOTE | 2022-11-19 16:50 | P.PN ---
Subjective Progress Note Date: 11/19/22 42-year-old female who was admitted back on November 02, for abdominal pain. She came into the emergency department with abdominal pain, going on for 2 or 3 days prior to admission. The patient apparently receives peritoneal dialysis every 6 hours, and was recently diagnosed with peritonitis. She was started on antibiotics, and is been in the hospital since the fourth. I was notified yesterday, by Dr. Terrazas, that the patient was needing surgery, and in the intensive care unit bed. She suspected a perforated sigmoid diverticuli, and the patient had a number of issues including renal failure, electrolyte disturbance, hypotension, etc. In addition, she was thought to be septic. The patient went to the operating room yesterday, and had an exploratory laparotomy, sigmoid colectomy, Brandon's pouch, abdominal washout, placement of the FRANCESCA drain, and placement of the wound VAC. She was successfully extubated in recovery, she is currently in the intensive care unit, room 258. She's current ly on 4 L of oxygen by nasal cannula. She's getting lactated Ringer's at 20 mL an hour. She continues on Zosyn and Flagyl. White count is 35.5, hemoglobin 9.6, hematocrit 30, and platelet count 367,000. Sodium 133, potassium 5.5, chlorides 98, CO2 16, anion gap 19, BUN 50, creatinine 8.34. Peritoneal fluid cultures are positive for Bacteroides. Progress note dated 11/14/2022. 42-year-old female, postop day #1, status post exploratory laparotomy with lysis of adhesions, sigmoid colectomy, Brandon's procedure, abdominal washout, removal of the FRANCESCA drain, placement of the FRANCESCA drain, and placement of a wound VAC, for fecal peritonitis and perforated sigmoid diverticulitis. The patient is seen today in room 258. She is currently undergoing hemodialysis. She is on 2 L of oxygen. The plan for hemodialysis today is removed 1.5 L of fluid. The patient is getting lactated Ringer's at 20 mL an hour. In addition, she'll receive 1 unit of PRBCs. She's currently on Zosyn and Flagyl. 3 years ago, before starting peritoneal dialysis, she was receiving hemodialysis. White count 25, hemoglobin 6.8, hematocrit 21.9, and platelet count normal. Sodium 134, potassium 4.4, chlorides 98, CO2 24, BUN 43, and creatinine 7.66. Peritoneal fluid was positive for Bacteroides. No chest x-ray today. Progress note dated 11/15/2022. 42-year-old female postop day #2, status post exploratory laparotomy, with lysis of adhesions, sigmoid colectomy, Brandon's procedure, among other things. The patient seems be doing reasonably well. She seen today in room 258. She's currently on 2 L of oxygen. She's getting lactated Ringer's at KVO. She had dialysis yesterday, and 1.5 L of fluid was removed. She's getting Zosyn and Flagyl. She has been stable overnight according to the nurses. White count was 20.7, hemoglobin 7.6, hematocrit 23.8, and platelet count 359,000. Sodium 134, potassium 4.1, chlorides 96, CO2 25, BUN 35, and creatinine 5.83. Progress note dated 11/16/2022. 42-year-old female postop day #3, status post exploratory laparotomy. Currently, the patient is seen today in room 258. She is on 2 L of oxygen, saline at KVO, and is scheduled to have hemodialysis today. She continues on Zosyn and Flagyl. Labs today include a white count 20.2, hemoglobin 7.5, hematocrit 23.5, and a normal platelet count. Sodium 133, potassium 4.1, chlorides 96, CO2 19, anion gap 18, BUN 55, and creatinine 7.72. Peritoneal fluid cultures continued to show Bacteroides. No recent chest x-ray. Progress note dated 11/18/2022. 42-year-old female, postop day #5, status post exploratory laparotomy. The patient is resting comfortably in room 452. We have been seeing her every day. She's currently on room air. Saturations are 95%. She's getting lactated Ringer's at 20 mL an hour. He is on Zosyn. She is using her incentive spirometer. She was out of bed and up in the chair yesterday. No new labs today. Labs from November 17 have been reviewed. Microbiologic samples continued to show Bacteroides. On today's evaluation of a 11/19, the patient is resting comfortably in bed. The patient's postop day #6 following her abdominal surgery. Her colostomy site is functional. Her surgical one-sided screen. FRANCESCA drain is putting out serosanguineous drainage that is slightly bloody. Otherwise, no significant abdominal pain. No nausea or vomiting. She is post extensive laparotomy, lysis of adhesions, sigmoid colectomy, Brandon's pouch and diverting colostomy. She is same time, the patient is undergoing hemodialysis today. The patient is on IV Zosyn. The white cell count remains elevated and currently is still at 21.5. Hemoglobin is down to 6.7 and the patient is going to receive units of packed RBC following her transfusion. The BUN is at 63 with a cr eatinine of 10.7. Sodium levels of 135 with a potassium level of 4.2. No significant respiratory distress. As stated, the patient is on room air oxygen for now. The patient's abdominal cultures have been showing anaerobes including back today with his and gram-negative bacillus. Objective - Vital Signs Vital signs: Vital Signs Temp 98.1 F 11/19/22 06:50 Pulse 75 11/19/22 06:50 Resp 17 11/19/22 06:50 BP 150/87 11/19/22 06:50 Pulse Ox 97 11/19/22 08:58 FiO2 Intake & Output 11/18/22 11/19/22 11/19/22 18:59 06:59 18:59 Output Total 460 10 Balance -460 -10 Weight 91.6 kg 91.8 kg Output: Drainage 10 10 RLQ FRANCESCA Drain 10 10 Stool 450 Other: Voiding Method Toilet # Voids 1 - Exam No acute distress, oriented 3. Saturations are 95% on room air. The patient is calm and comfortable at this point in time. No signs of any respiratory distress. HEENT examination is grossly unremarkable. Neck supple. Full range of motion. No adenopathy thyromegaly or neck vein distention. Cardiovascular examination reveals regular rhythm rate. S1-S2 normal. No S3 or S4. No discernible murmur noted. . Lungs reveal mild scattered rhonchi. Breath sounds equal bilaterally. No wheezes. No crackles. Abdomen soft, but tender. No bowel sounds. Dressing is noted in place. The patient has a functioning colostomy site. The abdominal surgical site is dry and clean and intact. The patient also the FRANCESCA drain in place. Extremities are intact. No cyanosis clubbing or edema. Skin is without rash or lesion. Neurologic examination is brief but nonfocal. - Labs CBC & Chem 7: 11/19/22 06:44 11/19/22 06:44 Labs: Abnormal Lab Results - Last 24 Hours (Table) 11/19/22 11/19/22 Range/Units 06:44 06:44 WBC 21.58 H (4.50-10.00) X 10*3/uL RBC 2.02 L (4.10-5.20) X 10*6/uL Hgb 6.7 H* (12.0-15.0) d/dL Hct 21.1 L (37.2-46.3) % MCV 104.5 H (80.0-97.0) FL MCH 33.2 H (27.0-32.0) pg MCHC 31.8 L (32.0-37.0) d/dL RDW 17.3 H (11.5-14.5) % Neutrophils # 18.66 H (1.80-7.70) X 10*3/uL Chloride 94 L (96-109) mmol/L Carbon Dioxide 18.2 L (21.6-31.8) mmol/L Anion Gap 22.80 H (4.00-12.00) mmol/L BUN 63.4 H (9.0-27.0) mg/dL Creatinine 10.7 H* (0.6-1.5) mg/dL Est GFR (CKD-EPI) 4 L (>=60) BUN/Creatinine Ratio 5.93 L (12.00-20.00) Ratio Calcium 8.4 L (8.7-10.3) mg/dL Total Bilirubin 0.2 L (0.3-1.2) mg/dL Total Protein 4.9 L (6.2-8.2) d/dL Albumin 2.3 L (3.8-4.9) d/dL Albumin/Globulin Ratio 0.88 L (1.60-3.17) Ratio Assessment and Plan Plan: Postop day #6, status post exploratory laparotomy with lysis of adhesions, sigmoid colectomy, Brandon's procedure, abdominal washout, removal of a FRANCESCA drain, placement of a FRANCESCA drain, and placement of a wound VAC, for fecal peritonitis, and perforated sigmoid diverticulitis. Peritoneal sepsis, secondary to Bacteroides species. History of hypertension. FSGS- History of end-stage renal disease, previously on peritoneal dialysis, now on hemodialysis. History of seizure disorder. History of gout. Anemia of chronic disease. Previous history of tobacco use. History of anxiety. Acute on top of chronic anemia with drop in hemoglobin down to 6.7, and the patient is going to receive a units of packed RBC today. Plan: Clinically stable The white cell count is still elevated and the patient is being monitored and the patient is on IV Zosyn FRANCESCA drain is in place Colostomy site is functional Patient is undergoing hemodialysis today The patient is currently on room air. She's getting lactated Ringer's at 20 mL an hour. We'll give the patient units of packed RBC Monitor hemoglobin Complete hemodialysis today We'll continue to follow
[2022-11-20] MEDS: metroNIDAZOLE-NS PMX 500 MG in SALINE 1 100ML.BAG IVPB SCH ×3 (00:20→17:42)
[2022-11-20] MEDS: HYDROmorphone 1 MG/ML 1 ML SYRINGE IVP PRN ×3 (00:20→22:24)
[2022-11-20] MEDS: ACETAMINOPHEN TAB 500 MG TAB PO SCH ×5 (00:44→23:59)
[2022-11-20] MEDS: CYCLOBENZAPRINE 5 MG TAB PO PRN (03:53)
[2022-11-20] MEDS: LACTATED RINGERS 1,000 ML IV SCH (06:49)
[2022-11-20] MEDS: RENAPLEX D PO SCH (08:45)
[2022-11-20] MEDS: SIMETHICONE 80 MG CHEWABLE PO SCH ×3 (08:51→22:24)
[2022-11-20] MEDS: METOPROLOL TARTRATE 25 MG TAB PO SCH ×2 (08:51→20:10)
[2022-11-20] MEDS: lisinopriL 10 MG TAB PO SCH ×2 (08:51→20:10)
[2022-11-20] MEDS: PANTOPRAZOLE 40 MG/10 ML VIAL IV SCH (08:51)
[2022-11-20] MEDS: SEVELAMER 800 MG TAB PO SCH ×3 (08:51→17:43)
[2022-11-20] MEDS: ENOXAPARIN 30 MG/0.3 ML SYRINGE SQ SCH (08:52)
[2022-11-20 11:01] LABS: Basophils # (A) 0.07 X 10*3/uL (0.00-0.10); Basophils % (A) 0.4 %; Eosinophils # (A) 0.23 X 10*3/uL (0.04-0.35); Eosinophils % (A) 1.2 %; HCT 22.7 % (37.2-46.3); HGB 7.4 d/dL (12.0-15.0); Lymphocytes # (A) 1.34 X 10*3/uL (0.90-5.00); Lymphocytes % (A) 7.2 %; MCHC 32.6 d/dL (32.0-37.0); MCV 101.3 FL (80.0-97.0); Mean Platelet Volume 9.9 FL (9.5-12.2); Monocytes # (A) 0.81 X 10*3/uL (0.20-1.00); Monocytes % (A) 4.4 %; NRBC Per 100 WBC 0 X 10*3/uL (0.00-0.01); Neutrophils # (A) 15.75 X 10*3/uL (1.80-7.70); Neutrophils % (A) 85.2 %; Platelet Count 406 X 10*3/uL (140-440); RBC 2.24 X 10*6/uL (4.10-5.20); RDW 17.9 % (11.5-14.5)
[2022-11-20 11:10] LABS: Magnesium 1.9 mg/dL (1.5-2.4)
[2022-11-20 11:22] LABS: BUN/Creat Ratio 5.23 Ratio (12.00-20.00); Blood Urea Nitrogen 38.2 mg/dL (9.0-27.0); Calcium 8.2 mg/dL (8.7-10.3); Carbon Dioxide 23.6 mmol/L (21.6-31.8); Chloride 95 mmol/L (96-109); Glucose 87 mg/dL (70-110); Potassium 4.1 mmol/L (3.5-5.5); Sodium 136 mmol/L (135-145)
[2022-11-20] MEDS: PIPERACILLIN-TAZOBACTAM 3.375 GM in SODIUM CHLORIDE 0.9% 100 ML IVPB SCH ×2 (11:46→22:24)
--- NOTE | 2022-11-20 12:43 | P.PN ---
Subjective Progress Note Date: 11/20/22 42-year-old female who was admitted back on November 02, for abdominal pain. She came into the emergency department with abdominal pain, going on for 2 or 3 days prior to admission. The patient apparently receives peritoneal dialysis every 6 hours, and was recently diagnosed with peritonitis. She was started on antibiotics, and is been in the hospital since the fourth. I was notified yesterday, by Dr. Terrazas, that the patient was needing surgery, and in the intensive care unit bed. She suspected a perforated sigmoid diverticuli, and the patient had a number of issues including renal failure, electrolyte disturbance, hypotension, etc. In addition, she was thought to be septic. The patient went to the operating room yesterday, and had an exploratory laparotomy, sigmoid colectomy, Brandon's pouch, abdominal washout, placement of the FRANCESCA drain, and placement of the wound VAC. She was successfully extubated in recovery, she is currently in the intensive care unit, room 258. She's current ly on 4 L of oxygen by nasal cannula. She's getting lactated Ringer's at 20 mL an hour. She continues on Zosyn and Flagyl. White count is 35.5, hemoglobin 9.6, hematocrit 30, and platelet count 367,000. Sodium 133, potassium 5.5, chlorides 98, CO2 16, anion gap 19, BUN 50, creatinine 8.34. Peritoneal fluid cultures are positive for Bacteroides. Progress note dated 11/14/2022. 42-year-old female, postop day #1, status post exploratory laparotomy with lysis of adhesions, sigmoid colectomy, Brandon's procedure, abdominal washout, removal of the FRANCESCA drain, placement of the FRANCESCA drain, and placement of a wound VAC, for fecal peritonitis and perforated sigmoid diverticulitis. The patient is seen today in room 258. She is currently undergoing hemodialysis. She is on 2 L of oxygen. The plan for hemodialysis today is removed 1.5 L of fluid. The patient is getting lactated Ringer's at 20 mL an hour. In addition, she'll receive 1 unit of PRBCs. She's currently on Zosyn and Flagyl. 3 years ago, before starting peritoneal dialysis, she was receiving hemodialysis. White count 25, hemoglobin 6.8, hematocrit 21.9, and platelet count normal. Sodium 134, potassium 4.4, chlorides 98, CO2 24, BUN 43, and creatinine 7.66. Peritoneal fluid was positive for Bacteroides. No chest x-ray today. Progress note dated 11/15/2022. 42-year-old female postop day #2, status post exploratory laparotomy, with lysis of adhesions, sigmoid colectomy, Brandon's procedure, among other things. The patient seems be doing reasonably well. She seen today in room 258. She's currently on 2 L of oxygen. She's getting lactated Ringer's at KVO. She had dialysis yesterday, and 1.5 L of fluid was removed. She's getting Zosyn and Flagyl. She has been stable overnight according to the nurses. White count was 20.7, hemoglobin 7.6, hematocrit 23.8, and platelet count 359,000. Sodium 134, potassium 4.1, chlorides 96, CO2 25, BUN 35, and creatinine 5.83. Progress note dated 11/16/2022. 42-year-old female postop day #3, status post exploratory laparotomy. Currently, the patient is seen today in room 258. She is on 2 L of oxygen, saline at KVO, and is scheduled to have hemodialysis today. She continues on Zosyn and Flagyl. Labs today include a white count 20.2, hemoglobin 7.5, hematocrit 23.5, and a normal platelet count. Sodium 133, potassium 4.1, chlorides 96, CO2 19, anion gap 18, BUN 55, and creatinine 7.72. Peritoneal fluid cultures continued to show Bacteroides. No recent chest x-ray. Progress note dated 11/18/2022. 42-year-old female, postop day #5, status post exploratory laparotomy. The patient is resting comfortably in room 452. We have been seeing her every day. She's currently on room air. Saturations are 95%. She's getting lactated Ringer's at 20 mL an hour. He is on Zosyn. She is using her incentive spirometer. She was out of bed and up in the chair yesterday. No new labs today. Labs from November 17 have been reviewed. Microbiologic samples continued to show Bacteroides. On today's evaluation of a 11/19, the patient is resting comfortably in bed. The patient's postop day #6 following her abdominal surgery. Her colostomy site is functional. Her surgical one-sided screen. FRANCESCA drain is putting out serosanguineous drainage that is slightly bloody. Otherwise, no significant abdominal pain. No nausea or vomiting. She is post extensive laparotomy, lysis of adhesions, sigmoid colectomy, Brandon's pouch and diverting colostomy. She is same time, the patient is undergoing hemodialysis today. The patient is on IV Zosyn. The white cell count remains elevated and currently is still at 21.5. Hemoglobin is down to 6.7 and the patient is going to receive units of packed RBC following her transfusion. The BUN is at 63 with a cr eatinine of 10.7. Sodium levels of 135 with a potassium level of 4.2. No significant respiratory distress. As stated, the patient is on room air oxygen for now. The patient's abdominal cultures have been showing anaerobes including back today with his and gram-negative bacillus. On today's evaluation of 11/20/2022, the patient is on room air oxygen pH underwent hemodialysis yesterday pH is postop day #7. The white cell count is slightly improved compared to yesterday the patient is afebrile. The white cell count today is down to 18.5, hemoglobin is at 7.4 and the patient recently units of packed RBC following that hemodialysis yesterday. She remains on IV Zosyn. Her colostomy is functional. FRANCESCA drain is putting out serosanguineous material. Potassium levels at 4.1, BUN is at 38 with a creatinine of 7.3. She is ambulating. No other complaints. No bowel pain. No chest pain. No shortness of breath. Objective - Vital Signs Vital signs: Vital Signs Temp 98.3 F 11/20/22 06:56 Pulse 86 11/20/22 06:56 Resp 16 11/20/22 06:56 BP 162/87 11/20/22 06:56 Pulse Ox 96 11/20/22 09:09 FiO2 21 11/20/22 09:09 Intake & Output 11/19/22 11/20/22 11/20/22 18:59 06:59 18:59 Intake Total 300 310 Output Total 1300 170 105 Balance -1000 140 -105 Weight 93 kg Intake: Blood Product 0 310 Rc As-1 Unit 0 310 [id number] Hemodialysis 300 Output: Drainage 20 5 RLQ FRANCESCA Drain 20 5 Stool 150 100 Hemodialysis 1300 Other: Voiding Method Toilet Toilet # Voids 1 - Exam No acute distress, oriented 3. Saturations are 95% on room air. The patient is calm and comfortable at this point in time. No signs of any respiratory distress. HEENT examination is grossly unremarkable. Neck supple. Full range of motion. No adenopathy thyromegaly or neck vein distention. Cardiovascular examination reveals regular rhythm rate. S1-S2 normal. No S3 or S4. No discernible murmur noted. . Lungs reveal mild scattered rhonchi. Breath sounds equal bilaterally. No wheezes. No crackles. Abdomen soft, but tender. No bowel sounds. Dressing is noted in place. The patient has a functioning colostomy site. The abdominal surgical site is dry and clean and intact. The patient also the FRANCESCA drain in place. Extremities are intact. No cyanosis clubbing or edema. Skin is without rash or lesion. Neurologic examination is brief but nonfocal. - Labs CBC & Chem 7: 11/20/22 06:40 11/20/22 06:40 Labs: Abnormal Lab Results - Last 24 Hours (Table) 11/19/22 11/19/22 11/20/22 Range/Units 06:44 11:48 06:40 WBC 18.50 H (4.50-10.00) X 10*3/uL RBC 2.24 L (4.10-5.20) X 10*6/uL Hgb 7.4 L (12.0-15.0) d/dL Hct 22.7 L (37.2-46.3) % MCV 101.3 H (80.0-97.0) FL MCH 33.0 H (27.0-32.0) pg RDW 17.9 H (11.5-14.5) % Neutrophils # 15.75 H (1.80-7.70) X 10*3/uL Chloride 94 L (96-109) mmol/L Carbon Dioxide 18.2 L (21.6-31.8) mmol/L Anion Gap 22.80 H (4.00-12.00) mmol/L BUN 63.4 H (9.0-27.0) mg/dL Creatinine 10.7 H* (0.6-1.5) mg/dL Est GFR (CKD-EPI) 4 L (>=60) BUN/Creatinine Ratio 5.93 L (12.00-20.00) Ratio Calcium 8.4 L (8.7-10.3) mg/dL Total Bilirubin 0.2 L (0.3-1.2) mg/dL Total Protein 4.9 L (6.2-8.2) d/dL Albumin 2.3 L (3.8-4.9) d/dL Albumin/Globulin Ratio 0.88 L (1.60-3.17) Ratio Crossmatch See Detail Assessment and Plan Plan: Postop day # 7, status post exploratory laparotomy with lysis of adhesions, sigmoid colectomy, Brandon's procedure, abdominal washout, removal of a FRANCESCA drain, placement of a FRANCESCA drain, and placement of a wound VAC, for fecal peritonitis, and perforated sigmoid diverticulitis. Leukocytosis is essentially improving and the patient's white cell count is down to 18.5 Peritoneal sepsis, secondary to Bacteroides species. History of hypertension. FSGS- History of end-stage renal disease, previously on peritoneal dialysis, now on hemodialysis.Last hemodialysis session was done yesterday History of seizure disorder. History of gout. Anemia of chronic disease. Previous history of tobacco use. History of anxiety. Acute on top of chronic anemia received a unit of packed RBC yesterday and the hemoglobin is up to 7.4 Plan: Clinically stable The white cell count is still elevated and the patient is being monitored and the patient is on IV Zosyn FRANCESCA drain is in place Colostomy site is functional Patient is undergoing hemodialysis today The patient is currently on room air. She's getting lactated Ringer's at 20 mL an hour. Hemoglobin is stable post transfusion at 7.3 Monitor hemoglobin Monitor white cell count Hemodialysis was done yesterday Increase mobility Colostomy is functional.
[2022-11-20] MEDS ORDERED: hydrALAZINE HCL 20 MG/ML 1 ML VIAL IVP PRN (12:56)
--- NOTE | 2022-11-20 12:56 | P.PN ---
Subjective Patient is seen in follow-up for end-stage renal disease. Peritoneal dialysis discontinued 11/06/2022. Tolerating hemodialysis well. Tolerating oral intake. Resting in bed. Hemoglobin 7.4 today. Received blood yesterday. No active bleeding. Family present at bedside. Vital signs are stable. General: No acute distress. HEENT: Head exam is unremarkable. LUNGS: No audible rhonchi or wheezes. HEART: Rate and Rhythm are regular. ABDOMEN: Colostomy noted. EXTREMITITES: No edema. Objective - Vital Signs Vital signs: Vital Signs Temp 98.3 F 11/20/22 06:56 Pulse 86 11/20/22 06:56 Resp 16 11/20/22 06:56 BP 162/87 11/20/22 06:56 Pulse Ox 96 11/20/22 09:09 FiO2 21 11/20/22 09:09 Intake & Output 11/19/22 11/20/22 11/20/22 18:59 06:59 18:59 Intake Total 300 310 Output Total 1300 170 105 Balance -1000 140 -105 Weight 93 kg 93 kg Intake: Blood Product 0 310 Rc As-1 Unit 0 310 [id number] Hemodialysis 300 Output: Drainage 20 5 RLQ FRANCESCA Drain 20 5 Stool 150 100 Hemodialysis 1300 Other: Voiding Method Toilet Toilet # Voids 1 - Labs CBC & Chem 7: 11/20/22 06:40 11/20/22 06:40 Labs: Abnormal Lab Results - Last 24 Hours (Table) 11/19/22 11/20/22 11/20/22 Range/Units 11:48 06:40 06:40 WBC 18.50 H (4.50-10.00) X 10*3/uL RBC 2.24 L (4.10-5.20) X 10*6/uL Hgb 7.4 L (12.0-15.0) d/dL Hct 22.7 L (37.2-46.3) % MCV 101.3 H (80.0-97.0) FL MCH 33.0 H (27.0-32.0) pg RDW 17.9 H (11.5-14.5) % Neutrophils # 15.75 H (1.80-7.70) X 10*3/uL Chloride 95 L (96-109) mmol/L Anion Gap 17.40 H (4.00-12.00) mmol/L BUN 38.2 H (9.0-27.0) mg/dL Creatinine 7.3 H* (0.6-1.5) mg/dL Est GFR (CKD-EPI) 7 L (>=60) BUN/Creatinine Ratio 5.23 L (12.00-20.00) Ratio Calcium 8.2 L (8.7-10.3) mg/dL Crossmatch See Detail Assessment and Plan Plan: Assessment: 1. End-stage renal disease maintained on peritoneal dialysis. 2. PD associated peritonitis status post second dose of intraperitoneal vancomycin 11/04/2022. Also received IP Fortaz. Fluid WBC count 4503 on 11/02/2022 and down to 168 11/03/2022. PMNs 93% October 4 an 89% October 5. Fluid culture done prior to admission was positive for E. coli and this admission again positive for bacteroides. PMN count remains elevated. PD catheter discontinued 11/07/2022. 3. Small bowel obstruction. Surgery following. Status post laparoscopic lysis of adhesions and removal of PD catheter 11/07/2022. Subsequently developed fecal peritonitis from perforated sigmoid diverticulitis and underwent exploratory laparotomy with lysis of edema in the sigmoid colectomy on 11/13/2022. 4. Anemia of chronic kidney disease. On Aranesp. Status post blood transfusions this admission. Also received IV DDAVP. No active bleeding. 5. Hypertension with chronic kidney disease. Stable. 6. Chronic kidney disease mineral bone disease. Phosphorus level 10.4 dated 11/09/2022. Phosphorus level 8.1 dated 11/17/2022. On Renvela - dose increased. 7. Metabolic acidosis secondary to chronic kidney disease. Improved post dialysis. Plan: Hemodialysis tomorrow. Antibiotics per infectious disease. Discussed with surgery team. Due to severe adhesions, she will not be a candidate for peritoneal dialysis in the future. Discussed workup for kidney transplant upon discharge. Add when necessary hydralazine.
[2022-11-20] MEDS: HYDROmorphone 0.5 MG/0.5 ML SYRINGE IVP PRN ×2 (13:44→17:44)
--- NOTE | 2022-11-20 15:30 | P.PN ---
Subjective Progress Note Date: 11/20/22 CHIEF COMPLAINT: Abdominal pain HISTORY OF PRESENT ILLNESS: The patient is a 42-year-old female status post exploratory laparotomy, descending colostomy for perforated diverticulitis, 11/13/2022. Patient's ostomy is functioning. Her pain is controlled. She is sitting at bedside chair. She denies any nausea or vomiting. She had hemodialysis yesterday. She received 1 unit of blood for hemoglobin of 6.9 yesterday she is tolerating diet. She did have a low-grade temp of 100.1 this afternoon. WBC is down from 21-18 Hgb 6.7-7.4 platelets 406. Patient did receive her ostomy teaching. PHYSICAL EXAM: VITAL SIGNS: Reviewed GENERAL: Well-developed in no acute distress. HEENT: No sclera icterus. Extraocular movements grossly intact. Moist buccal mucosa. Head is atraumatic, normocephalic. Hears conversational speech. No nasal drainage. NECK: Supple without lymphadenopathy. CHEST: Non-labored respirations and equal bilateral excursions. CARDIOVASCULAR: Palpable 2+ radial pulses. ABDOMEN: soft, Prevana wound VAC clean dry and intact. ostomy functioning. FRANCESCA drain serosanguineous MUSCULOSKELETAL: No clubbing or cyanosis. NEUROLOGIC: No focal or lateralizing signs. Cranial nerves II through XII grossly intact. PSYCH: Appropriate affect. Alert and oriented to person, place and time. SKIN: Well perfused. Good skin turgor. ASSESSMENT: 1. Perforated sigmoid diverticulitis 2. Small bowel obstruction 3. Sepsis 4. End-stage renal disease 5. Chronic anemia PLAN: -Continue low fiber diet -Discontinue Prevana wound vac tomorrow -Antibiotics per infectious disease -Encourage patient to use incentive spirometer -Encourage patient to ambulate Physician Automotive Accessory Installer note has been reviewed by physician. Signing provider agrees with the documented findings, assessment, and plan of care. Objective - Vital Signs Vital signs: Vital Signs Temp 100.1 F H 11/20/22 14:00 Pulse 81 11/20/22 14:00 Resp 16 11/20/22 14:00 BP 162/77 11/20/22 14:00 Pulse Ox 99 11/20/22 14:00 FiO2 21 11/20/22 09:09 Intake & Output 11/19/22 11/20/22 11/20/22 18:59 06:59 18:59 Intake Total 300 310 Output Total 1300 170 105 Balance -1000 140 -105 Weight 93 kg 93 kg Intake: Blood Product 0 310 Rc As-1 Unit 0 310 [id number] Hemodialysis 300 Output: Drainage 20 5 RLQ FRANCESCA Drain 20 5 Stool 150 100 Hemodialysis 1300 Other: Voiding Method Toilet Toilet # Voids 1 - Labs CBC & Chem 7: 11/20/22 06:40 11/20/22 06:40 Labs: Abnormal Lab Results - Last 24 Hours (Table) 11/19/22 11/20/22 11/20/22 Range/Units 11:48 06:40 06:40 WBC 18.50 H (4.50-10.00) X 10*3/uL RBC 2.24 L (4.10-5.20) X 10*6/uL Hgb 7.4 L (12.0-15.0) d/dL Hct 22.7 L (37.2-46.3) % MCV 101.3 H (80.0-97.0) FL MCH 33.0 H (27.0-32.0) pg RDW 17.9 H (11.5-14.5) % Neutrophils # 15.75 H (1.80-7.70) X 10*3/uL Chloride 95 L (96-109) mmol/L Anion Gap 17.40 H (4.00-12.00) mmol/L BUN 38.2 H (9.0-27.0) mg/dL Creatinine 7.3 H* (0.6-1.5) mg/dL Est GFR (CKD-EPI) 7 L (>=60) BUN/Creatinine Ratio 5.23 L (12.00-20.00) Ratio Calcium 8.2 L (8.7-10.3) mg/dL Crossmatch See Detail
--- NOTE | 2022-11-20 16:02 | P.PN ---
Subjective Progress Note Date: 11/20/22 Principal diagnosis: PD catheter associated peritonitis Patient is a 42-year-old female with a past medical history negative for hypertension seizure disorder history of end-stage renal disease on peritoneal dialysis since December 2018 did have 1 previous episode of infection treated with antibiotics patient started having a problem with abdominal pain that started on Saturday that is about 4 days before presentation to the hospital, patient has been diagnosed with peritonitis also have CT abdominal pelvis suggestive of ileus.Patient is status post laparoscopic lysis of adhesion removal of dialysis catheter and drainage of the abscess on 11/07/2022. Patient was taken to the OR late 11/12/2022 status post laparotomy and evidence of perforated sigmoid diverticulitis post sigmoid colectomy and an ostomy on today's evaluation that is 11/20/2022, the patient remains to be afebrile, the patient is breathing comfortably on room air, the patient denies any chest pain shortness of breath or cough , the patient denies abdominal pain , no nausea vomiting did have output in her colostomy Patient did have a hemoglobin of 7.4 and white count is down to 18.50 today Objective - Vital Signs Vital signs: Vital Signs Temp 98.3 F 11/20/22 06:56 Pulse 86 11/20/22 06:56 Resp 16 11/20/22 06:56 BP 162/87 11/20/22 06:56 Pulse Ox 96 11/20/22 09:09 FiO2 21 11/20/22 09:09 Intake & Output 11/19/22 11/20/22 11/20/22 18:59 06:59 18:59 Intake Total 300 310 Output Total 1300 170 105 Balance -1000 140 -105 Weight 93 kg Intake: Blood Product 0 310 Rc As-1 Unit 0 310 [id number] Hemodialysis 300 Output: Drainage 20 5 RLQ FRANCESCA Drain 20 5 Stool 150 100 Hemodialysis 1300 Other: Voiding Method Toilet Toilet # Voids 1 - Exam GENERAL DESCRIPTION: Middle-aged female lying in bed in no distress RESPIRATORY SYSTEM: Unlabored breathing , decreased breath sounds at bases HEART: S1 S2 regular rate and rhythm , ABDOMEN: Soft , mild abdominal distention and tenderness EXTREMITIES: No edema feet - Labs CBC & Chem 7: 11/20/22 06:40 11/20/22 06:40 Labs: Abnormal Lab Results - Last 24 Hours (Table) 11/19/22 11/20/22 Range/Units 11:48 06:40 WBC 18.50 H (4.50-10.00) X 10*3/uL RBC 2.24 L (4.10-5.20) X 10*6/uL Hgb 7.4 L (12.0-15.0) d/dL Hct 22.7 L (37.2-46.3) % MCV 101.3 H (80.0-97.0) FL MCH 33.0 H (27.0-32.0) pg RDW 17.9 H (11.5-14.5) % Neutrophils # 15.75 H (1.80-7.70) X 10*3/uL Crossmatch See Detail Assessment and Plan (1) Intra-abdominal abscess Current Visit: Yes Status: Acute Code(s): K65.1 - PERITONEAL ABSCESS SNOMED Code(s): 90683025 (2) Diverticulitis of large intestine with complication Current Visit: Yes Status: Acute Code(s): K57.32 - DVTRCLI OF LG INT W/O PERFORATION OR ABSCESS W/O BLEEDING SNOMED Code(s): 828768367 Plan: 1patient presented hospital abdominal pain cloudy peritoneal fluid did have a significant elevated white in the peritoneal fluid likely secondary to PD catheter associated peritonitis patient did not have any evidence of abdominal infection at the site of insertion of the PD catheter patient also have evidence of ileus on the CT may be contributing some of her abdominal pain, patient did have a small bowel follow-through, did show delayed transit of contrast through the bowel with no evidence of small bowel obstruction 2-patient is status post laparoscopic lysis of adhesion removal of the dialysis catheter and drainage of the abscess abdominal cultures currently growing anaerobic gram-negative bacilli 3patient wasnoticed to have worsening of her white count and the patient was noticed to have more abdominal tenderness , patient did have evidence of perforated sigmoid colitis status post sigmoid colectomy and diverting colostomy along with drainage of the abscess cultures Are so far negative. 4patient seem to have shown some clinical improvement is afebrile and the white count is trending down with the addition of FLAGYL yesterday to continue for better coverage for bacteroids and continue with the Zosyn and monitor clinical course closely Mother at the bedside questions answered and also discuss with the CENTRAL OFFICE INSTALLER for admitting team Dictation was produced using [id number] dictation software. please excuse any grammatical, word or spelling errors. Time with Patient: Less than 30
--- NOTE | 2022-11-20 19:57 | P.PN ---
Subjective Progress Note Date: 11/20/22 Patient is evaluated today resting in bed receiving hemodialysis. Postoperative day #6 exploratory laparotomy with lysis of adhesions, sigmoid colectomy, ostomy formation, abdominal lavage, closed with a prevana wound VAC system. Reports abdominal pain is controlled with current regimen. Midline incision dressing clean dry and intact. Patient has FRANCESCA drain in place to the right abdomen. White count today 21.58 patient remains on IV zosyn and followed by ID. Creatinine 10.7 today. Hemoglobin 6.7 patient will receive 1 unit of PRBC. 11/20/2022 Patient sitting up in chair today family at bedside. Reports minimal abdominal discomfort and making stool through ostomy. The bag is full with brown soft st ool. Patient tolerating some diet. Remains on antibiotics IV zosyn/IV flagyl and white count has improved to 18 today. ID following. Patient received 1 unit of PRBC and 1 dose DDAVP yesterday with hemoglobin today of 7.4 no signs of active bleeding. Review of Systems Constitutional: Denied any fatigue denied any fever. Cardio vascular: denied any chest pain, palpitations Gastrointestinal: denied any nausea, vomiting, diarrhea, reports mild abdominal pain Pulmonary: Denied any shortness of breath cough Neurologic denied any new focal deficits All inpatient medications were reviewed and appropriate changes in these medications as dictated in the interval history and assessment and plan. PHYSICAL EXAMINATION: GENERAL: The patient is alert and oriented x3, not in any acute distress. Well developed, well nourished. HEENT: Pupils are round and equally reacting to light. EOMI. No scleral icterus. No conjunctival pallor. Normocephalic, atraumatic. No pharyngeal erythema. No thyromegaly. CARDIOVASCULAR: S1 and S2 present. No murmurs, rubs, or gallops. PULMONARY: Chest is clear to auscultation, no wheezing or crackles. ABDOMEN: Soft, tender, nondistended, normoactive bowel sounds. No palpable organomegaly. Midline dressing intact, FRANCESCA drain RLQ. Ostomy present with semiformed brown stool. MUSCULOSKELETAL: No joint swelling or deformity. EXTREMITIES: No cyanosis, clubbing, or pedal edema. NEUROLOGICAL: Gross neurological examination did not reveal any focal deficits. Diffuse weakness SKIN: No rashes. 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 Dr. Yuki MD I have performed a history and physical examination and medical decision making of this patient, discussed the same with the dictator, and agree with the dictators assessment and plan as written, documented as a scribe. Based on total visit time, I have performed more than 50% of this visit. Objective - Vital Signs Vital signs: Vital Signs Temp 100.1 F H 11/20/22 14:00 Pulse 81 11/20/22 14:00 Resp 16 11/20/22 14:00 BP 162/77 11/20/22 14:00 Pulse Ox 99 11/20/22 14:00 FiO2 21 11/20/22 09:09 Intake & Output 11/19/22 11/20/22 11/20/22 18:59 06:59 18:59 Intake Total 300 310 Output Total 1300 170 105 Balance -1000 140 -105 Weight 93 kg 93 kg Intake: Blood Product 0 310 Rc As-1 Unit 0 310 [id number] Hemodialysis 300 Output: Drainage 20 5 RLQ FRANCESCA Drain 20 5 Stool 150 100 Hemodialysis 1300 Other: Voiding Method Toilet Toilet # Voids 1 - Labs CBC & Chem 7: 11/20/22 06:40 11/20/22 06:40 Labs: Abnormal Lab Results - Last 24 Hours (Table) 11/19/22 11/20/22 11/20/22 Range/Units 11:48 06:40 06:40 WBC 18.50 H (4.50-10.00) X 10*3/uL RBC 2.24 L (4.10-5.20) X 10*6/uL Hgb 7.4 L (12.0-15.0) d/dL Hct 22.7 L (37.2-46.3) % MCV 101.3 H (80.0-97.0) FL MCH 33.0 H (27.0-32.0) pg RDW 17.9 H (11.5-14.5) % Neutrophils # 15.75 H (1.80-7.70) X 10*3/uL Chloride 95 L (96-109) mmol/L Anion Gap 17.40 H (4.00-12.00) mmol/L BUN 38.2 H (9.0-27.0) mg/dL Creatinine 7.3 H* (0.6-1.5) mg/dL Est GFR (CKD-EPI) 7 L (>=60) BUN/Creatinine Ratio 5.23 L (12.00-20.00) Ratio Calcium 8.2 L (8.7-10.3) mg/dL Crossmatch See Detail Assessment and Plan Time with Patient: Less than 30
[2022-11-21] MEDS: HYDROmorphone 1 MG/ML 1 ML SYRINGE IVP PRN (05:59)
[2022-11-21] MEDS: ACETAMINOPHEN TAB 500 MG TAB PO SCH ×4 (05:59→23:50)
[2022-11-21] MEDS: LACTATED RINGERS 1,000 ML IV SCH (06:47)
[2022-11-21] MEDS: METOPROLOL TARTRATE 25 MG TAB PO SCH ×2 (07:06→20:24)
[2022-11-21] MEDS: lisinopriL 10 MG TAB PO SCH ×2 (07:06→20:24)
[2022-11-21] MEDS: SEVELAMER 800 MG TAB PO SCH ×3 (07:11→16:53)
[2022-11-21] MEDS: metroNIDAZOLE-NS PMX 500 MG in SALINE 1 100ML.BAG IVPB SCH ×4 (07:11→23:50)
[2022-11-21] MEDS: RENAPLEX D PO SCH (07:12)
[2022-11-21] MEDS: ENOXAPARIN 30 MG/0.3 ML SYRINGE SQ SCH (07:12)
[2022-11-21] MEDS: SIMETHICONE 80 MG CHEWABLE PO SCH ×3 (07:21→22:22)
[2022-11-21 07:23] LABS: African American GFR (CKD) 6 (>60 ml/min/1.73 sqM); Anion Gap 18 mmol/L; Blood Urea Nitrogen 54 mg/dL (7-17); Calcium 7.8 mg/dL (8.4-10.2); Carbon Dioxide 17 mmol/L (22-30); Chloride 98 mmol/L (98-107); Glucose 76 mg/dL (74-99); Non-African American GFR(CKD) 5 (>60 ml/min/1.73 sqM); Potassium 4.1 mmol/L (3.5-5.1); Sodium 133 mmol/L (137-145)
[2022-11-21 07:41] LABS: Anisocytosis Slight; Basophils % (A) 0 %; Eosinophils # (A) 0.3 k/uL (0-0.7); Eosinophils % (A) 2 %; HCT 23.1 % (34.0-46.0); HGB 7.8 gm/dL (11.4-16.0); Hypochromasia Slight; Lymphocytes # (A) 1.1 k/uL (1.0-4.8); Lymphocytes % (A) 7 %; MCH 33.5 pg (25.0-35.0); MCHC 33.8 g/dL (31.0-37.0); MCV 99.1 fL (80.0-100.0); Macrocytosis Slight; Mean Platelet Volume 8.4; Monocytes # (A) 0.7 k/uL (0-1.0); Monocytes % (A) 5 %; Neutrophils % (A) 84 %; Platelet Count 384 k/uL (150-450); Poikilocytosis Slight; RBC 2.34 m/uL (3.80-5.40); RDW 16.9 % (11.5-15.5); WBC 15.4 k/uL (3.8-10.6)
[2022-11-21] MEDS: PANTOPRAZOLE 40 MG/10 ML VIAL IV SCH (08:22)
--- NOTE | 2022-11-21 14:36 | P.PN ---
Subjective Progress Note Date: 11/21/22 Patient is evaluated today resting in bed receiving hemodialysis. Postoperative day #6 exploratory laparotomy with lysis of adhesions, sigmoid colectomy, ostomy formation, abdominal lavage, closed with a prevana wound VAC system. Reports abdominal pain is controlled with current regimen. Midline incision dressing clean dry and intact. Patient has FRANCESCA drain in place to the right abdomen. White count today 21.58 patient remains on IV zosyn and followed by ID. Creatinine 10.7 today. Hemoglobin 6.7 patient will receive 1 unit of PRBC. 11/20/2022 Patient sitting up in chair today family at bedside. Reports minimal abdominal discomfort and making stool through ostomy. The bag is full with brown soft st ool. Patient tolerating some diet. Remains on antibiotics IV zosyn/IV flagyl and white count has improved to 18 today. ID following. Patient received 1 unit of PRBC and 1 dose DDAVP yesterday with hemoglobin today of 7.4 no signs of active bleeding. 11/21/2022 Patient is evaluated today resting in bed. She reports continued improvement in her abdominal pain, making stool from the ostomy. Patient remains on IV antibiotics with IV Zosyn and IV Flagyl. Her white count is down to 15.4 today and hemoglobin remained stable at 7.8. No other acute issues. Review of Systems Constitutional: Denied any fatigue denied any fever. Cardio vascular: denied any chest pain, palpitations Gastrointestinal: denied any nausea, vomiting, diarrhea, reports mild abdominal pain Pulmonary: Denied any shortness of breath cough Neurologic denied any new focal deficits All inpatient medications were reviewed and appropriate changes in these medications as dictated in the interval history and assessment and plan. PHYSICAL EXAMINATION: GENERAL: The patient is alert and oriented x3, not in any acute distress. Well developed, well nourished. HEENT: Pupils are round and equally reacting to light. EOMI. No scleral icterus. No conjunctival pallor. Normocephalic, atraumatic. No pharyngeal erythema. No t hyromegaly. CARDIOVASCULAR: S1 and S2 present. No murmurs, rubs, or gallops. PULMONARY: Chest is clear to auscultation, no wheezing or crackles. ABDOMEN: Soft, tender, nondistended, normoactive bowel sounds. No palpable organomegaly. Midline dressing intact, FRANCESCA drain RLQ. Ostomy present with semi formed brown stool. MUSCULOSKELETAL: No joint swelling or deformity. EXTREMITIES: No cyanosis, clubbing, or pedal edema. NEUROLOGICAL: Gross neurological examination did not reveal any focal deficits. Diffuse weakness SKIN: No rashes. 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 Dr. Yuki MD I have performed a history and physical examination and medical decision making of this patient, discussed the same with the dictator, and agree with the dictators assessment and plan as written, documented as a scribe. Based on total visit time, I have performed more than 50% of this visit. Objective - Vital Signs Vital signs: Vital Signs Temp 98.2 F 11/21/22 07:41 Pulse 81 11/21/22 07:41 Resp 13 11/21/22 07:41 BP 161/84 11/21/22 07:41 Pulse Ox 95 11/21/22 07:41 FiO2 21 11/20/22 09:09 Intake & Output 11/20/22 11/21/22 11/21/22 18:59 06:59 18:59 Intake Total 200 200 Output Total 105 10 Balance 95 -10 200 Weight 93 kg 93.7 kg Intake: IV 100 100 Piperacillin-Tazobactam 3 100 100 .375 gm In Sodium Chloride 0.9% 100 ml @ 25 mls/hr IVPB Q12H [facility] Rx# :[id number] Intake, IV Titration 100 100 Amount metroNIDAZOLE-NS PMX 500 100 100 mg In Saline 1 100ml.bag @ 100 mls/hr IVPB Q8HR [facility] Rx#:[id number] Output: Drainage 5 10 RLQ FRANCESCA Drain 5 10 Stool 100 Other: # Voids 0 # Bowel Movements 1 - Labs CBC & Chem 7: 11/21/22 05:18 11/21/22 05:18 Labs: Abnormal Lab Results - Last 24 Hours (Table) 11/20/22 11/20/22 11/21/22 Range/Units 06:40 06:40 05:18 WBC 18.50 H 15.4 H (4.50-10.00) X 10*3/uL RBC 2.24 L 2.34 L (4.10-5.20) X 10*6/uL Hgb 7.4 L 7.8 L (12.0-15.0) d/dL Hct 22.7 L 23.1 L (37.2-46.3) % MCV 101.3 H (80.0-97.0) FL MCH 33.0 H (27.0-32.0) pg RDW 17.9 H 16.9 H (11.5-14.5) % Neutrophils # 15.75 H 13.0 H (1.80-7.70) X 10*3/uL Sodium (137-145) mmol/L Chloride 95 L (96-109) mmol/L Carbon Dioxide (22-30) mmol/L Anion Gap 17.40 H (4.00-12.00) mmol/L BUN 38.2 H (9.0-27.0) mg/dL Creatinine 7.3 H* (0.6-1.5) mg/dL Est GFR (CKD-EPI) 7 L (>=60) BUN/Creatinine Ratio 5.23 L (12.00-20.00) Ratio Calcium 8.2 L (8.7-10.3) mg/dL 11/21/22 Range/Units 05:18 WBC (4.50-10.00) X 10*3/uL RBC (4.10-5.20) X 10*6/uL Hgb (12.0-15.0) d/dL Hct (37.2-46.3) % MCV (80.0-97.0) FL MCH (27.0-32.0) pg RDW (11.5-14.5) % Neutrophils # (1.80-7.70) X 10*3/uL Sodium 133 L (137-145) mmol/L Chloride (96-109) mmol/L Carbon Dioxide 17 L (22-30) mmol/L Anion Gap (4.00-12.00) mmol/L BUN 54 H (9.0-27.0) mg/dL Creatinine 8.79 H* (0.6-1.5) mg/dL Est GFR (CKD-EPI) (>=60) BUN/Creatinine Ratio (12.00-20.00) Ratio Calcium 7.8 L (8.7-10.3) mg/dL Assessment and Plan Time with Patient: Less than 30
[2022-11-21] MEDS: PIPERACILLIN-TAZOBACTAM 3.375 GM in SODIUM CHLORIDE 0.9% 100 ML IVPB SCH ×2 (14:47→16:53)
--- NOTE | 2022-11-21 15:36 | P.PN ---
Subjective Patient is seen in follow-up for end-stage renal disease. Peritoneal dialysis discontinued 11/06/2022. Tolerating hemodialysis well. Tolerating oral intake. Resting in bed. Hemoglobin 7.8 today. No active bleeding. Family present at bedside. Vital signs are stable. General: No acute distress. HEENT: Head exam is unremarkable. LUNGS: No audible rhonchi or wheezes. HEART: Rate and Rhythm are regular. ABDOMEN: Colostomy noted. EXTREMITITES: No edema. Objective - Vital Signs Vital signs: Vital Signs Temp 97.6 F 11/21/22 14:54 Pulse 78 11/21/22 14:54 Resp 18 11/21/22 14:54 BP 181/93 11/21/22 14:54 Pulse Ox 100 11/21/22 12:51 FiO2 21 11/20/22 09:09 Intake & Output 11/20/22 11/21/22 11/21/22 18:59 06:59 18:59 Intake Total 200 500 Output Total 886 88 4438 Balance 95 -10 -1800 Weight 93 kg 93.7 kg Intake: IV 100 100 Piperacillin-Tazobactam 3 100 100 .375 gm In Sodium Chloride 0.9% 100 ml @ 25 mls/hr IVPB Q12H REPLACED BY [facility] Rx# :[id number] Intake, IV Titration 100 100 Amount metroNIDAZOLE-NS PMX 500 100 100 mg In Saline 1 100ml.bag @ 100 mls/hr IVPB Q8HR [facility] Rx#:[id number] Hemodialysis 300 Output: Drainage 5 10 RLQ FRANCESCA Drain 5 10 Stool 100 Hemodialysis 2300 Other: # Voids 0 # Bowel Movements 1 - Labs CBC & Chem 7: 11/21/22 05:18 11/21/22 05:18 Labs: Abnormal Lab Results - Last 24 Hours (Table) 11/21/22 11/21/22 Range/Units 05:18 05:18 WBC 15.4 H (3.8-10.6) k/uL RBC 2.34 L (3.80-5.40) m/uL Hgb 7.8 L (11.4-16.0) gm/dL Hct 23.1 L (34.0-46.0) % RDW 16.9 H (11.5-15.5) % Neutrophils # 13.0 H (1.3-7.7) k/uL Sodium 133 L (137-145) mmol/L Carbon Dioxide 17 L (22-30) mmol/L BUN 54 H (7-17) mg/dL Creatinine 8.79 H* (0.52-1.04) mg/dL Calcium 7.8 L (8.4-10.2) mg/dL Assessment and Plan Plan: Assessment: 1. End-stage renal disease maintained on peritoneal dialysis. 2. PD associated peritonitis status post second dose of intraperitoneal vancomycin 11/04/2022. Also received IP Fortaz. Fluid WBC count 4503 on 11/02/2022 and down to 168 11/03/2022. PMNs 93% October 4 an 89% October 5. Fluid culture done prior to admission was positive for E. coli and this admission again positive for bacteroides. PMN count remains elevated. PD catheter discontinued 11/07/2022. 3. Small bowel obstruction. Surgery following. Status post laparoscopic lysis of adhesions and removal of PD catheter 11/07/2022. Subsequently developed fecal peritonitis from perforated sigmoid diverticulitis and underwent exploratory laparotomy with lysis of edema in the sigmoid colectomy on 11/13/2022. 4. Anemia of chronic kidney disease. On Aranesp. Status post blood transfusions this admission. Also received IV DDAVP. No active bleeding. 5. Hypertension with chronic kidney disease. Stable. 6. Chronic kidney disease mineral bone disease. Phosphorus level 10.4 dated 11/09/2022. Phosphorus level 8.1 dated 11/17/2022. On Renvela - dose increased. 7. Metabolic acidosis secondary to chronic kidney disease. Plan: Currently seen while undergoing hemodialysis. Antibiotics per infectious disease. Discussed with surgery team. Due to severe adhesions, she will not be a candidate for peritoneal dialysis in the future. Discussed workup for kidney transplant upon discharge. Maintain when necessary hydralazine. Add oral bicarbonate.
--- NOTE | 2022-11-21 16:18 | P.PN ---
Subjective Progress Note Date: 11/21/22 CHIEF COMPLAINT: Abdominal pain HISTORY OF PRESENT ILLNESS: The patient is a 42-year-old female status post exploratory laparotomy, descending colostomy for perforated diverticulitis, 11/13/2022. Patient's ostomy is functioning. Her pain is controlled. Patient having hemodialysis. Currently afebrile. BP elevated. WBC is down from 18-15 Hgb 7.8 PHYSICAL EXAM: VITAL SIGNS: Reviewed GENERAL: Well-developed in no acute distress. HEENT: No sclera icterus. Extraocular movements grossly intact. Moist buccal mucosa. Head is atraumatic, normocephalic. Hears conversational speech. No nasal evelia inage. NECK: Supple without lymphadenopathy. CHEST: Non-labored respirations and equal bilateral excursions. CARDIOVASCULAR: Palpable 2+ radial pulses. ABDOMEN: soft, nondistended. Prevana wound VAC pulled down. Incision site clean dry and intact. ostomy functioning. FRANCESCA drain serosanguineous MUSCULOSKELETAL: No clubbing or cyanosis. NEUROLOGIC: No focal or lateralizing signs. Cranial nerves II through XII grossly intact. PSYCH: Appropriate affect. Alert and oriented to person, place and time. SKIN: Well perfused. Good skin turgor. ASSESSMENT: 1. Perforated sigmoid diverticulitis 2. Small bowel obstruction 3. Sepsis 4. End-stage renal disease 5. Chronic anemia PLAN: -Continue low fiber diet -Prevana wound vac discontinued. Optifoam silver placed. -Antibiotics per infectious disease -Encourage patient to use incentive spirometer -Encourage patient to ambulate [employer] note has been reviewed by physician. Signing provider agrees with the documented findings, assessment, and plan of care. Objective - Vital Signs Vital signs: Vital Signs Temp 97.6 F 11/21/22 14:54 Pulse 78 11/21/22 14:54 Resp 18 11/21/22 14:54 BP 181/93 11/21/22 14:54 Pulse Ox 100 11/21/22 12:51 FiO2 21 11/20/22 09:09 Intake & Output 11/20/22 11/21/22 11/21/22 18:59 06:59 18:59 Intake Total 200 500 Output Total 691 49 6479 Balance 95 -10 -1800 Weight 93 kg 93.7 kg Intake: IV 100 100 Piperacillin-Tazobactam 3 100 100 .375 gm In Sodium Chloride 0.9% 100 ml @ 25 mls/hr IVPB Q12H [facility] Rx# :[id number] Intake, IV Titration 100 100 Amount metroNIDAZOLE-NS PMX 500 100 100 mg In Saline 1 100ml.bag @ 100 mls/hr IVPB Q8HR [facility] Rx#:[id number] Hemodialysis 300 Output: Drainage 5 10 RLQ FRANCESCA Drain 5 10 Stool 100 Hemodialysis 2300 Other: # Voids 0 # Bowel Movements 1 - Labs CBC & Chem 7: 11/21/22 05:18 11/21/22 05:18 Labs: Abnormal Lab Results - Last 24 Hours (Table) 11/21/22 11/21/22 Range/Units 05:18 05:18 WBC 15.4 H (3.8-10.6) k/uL RBC 2.34 L (3.80-5.40) m/uL Hgb 7.8 L (11.4-16.0) gm/dL Hct 23.1 L (34.0-46.0) % RDW 16.9 H (11.5-15.5) % Neutrophils # 13.0 H (1.3-7.7) k/uL Sodium 133 L (137-145) mmol/L Carbon Dioxide 17 L (22-30) mmol/L BUN 54 H (7-17) mg/dL Creatinine 8.79 H* (0.52-1.04) mg/dL Calcium 7.8 L (8.4-10.2) mg/dL
--- NOTE | 2022-11-21 17:07 | P.PN ---
Subjective Progress Note Date: 11/21/22 42-year-old female who was admitted back on November 02, for abdominal pain. She came into the emergency department with abdominal pain, going on for 2 or 3 days prior to admission. The patient apparently receives peritoneal dialysis every 6 hours, and was recently diagnosed with peritonitis. She was started on antibiotics, and is been in the hospital since the fourth. I was notified yesterday, by Dr. Terrazas, that the patient was needing surgery, and in the intensive care unit bed. She suspected a perforated sigmoid diverticuli, and the patient had a number of issues including renal failure, electrolyte disturbance, hypotension, etc. In addition, she was thought to be septic. The patient went to the operating room yesterday, and had an exploratory laparotomy, sigmoid colectomy, Brandon's pouch, abdominal washout, placement of the FRANCESCA drain, and placement of the wound VAC. She was successfully extubated in recovery, she is currently in the intensive care unit, room 258. She's current ly on 4 L of oxygen by nasal cannula. She's getting lactated Ringer's at 20 mL an hour. She continues on Zosyn and Flagyl. White count is 35.5, hemoglobin 9.6, hematocrit 30, and platelet count 367,000. Sodium 133, potassium 5.5, chlorides 98, CO2 16, anion gap 19, BUN 50, creatinine 8.34. Peritoneal fluid cultures are positive for Bacteroides. Progress note dated 11/14/2022. 42-year-old female, postop day #1, status post exploratory laparotomy with lysis of adhesions, sigmoid colectomy, Brandon's procedure, abdominal washout, removal of the FRANCESCA drain, placement of the FRANCESCA drain, and placement of a wound VAC, for fecal peritonitis and perforated sigmoid diverticulitis. The patient is seen today in room 258. She is currently undergoing hemodialysis. She is on 2 L of oxygen. The plan for hemodialysis today is removed 1.5 L of fluid. The patient is getting lactated Ringer's at 20 mL an hour. In addition, she'll receive 1 unit of PRBCs. She's currently on Zosyn and Flagyl. 3 years ago, before starting peritoneal dialysis, she was receiving hemodialysis. White count 25, hemoglobin 6.8, hematocrit 21.9, and platelet count normal. Sodium 134, potassium 4.4, chlorides 98, CO2 24, BUN 43, and creatinine 7.66. Peritoneal fluid was positive for Bacteroides. No chest x-ray today. Progress note dated 11/15/2022. 42-year-old female postop day #2, status post exploratory laparotomy, with lysis of adhesions, sigmoid colectomy, Brandon's procedure, among other things. The patient seems be doing reasonably well. She seen today in room 258. She's currently on 2 L of oxygen. She's getting lactated Ringer's at KVO. She had dialysis yesterday, and 1.5 L of fluid was removed. She's getting Zosyn and Flagyl. She has been stable overnight according to the nurses. White count was 20.7, hemoglobin 7.6, hematocrit 23.8, and platelet count 359,000. Sodium 134, potassium 4.1, chlorides 96, CO2 25, BUN 35, and creatinine 5.83. Progress note dated 11/16/2022. 42-year-old female postop day #3, status post exploratory laparotomy. Currently, the patient is seen today in room 258. She is on 2 L of oxygen, saline at KVO, and is scheduled to have hemodialysis today. She continues on Zosyn and Flagyl. Labs today include a white count 20.2, hemoglobin 7.5, hematocrit 23.5, and a normal platelet count. Sodium 133, potassium 4.1, chlorides 96, CO2 19, anion gap 18, BUN 55, and creatinine 7.72. Peritoneal fluid cultures continued to show Bacteroides. No recent chest x-ray. Progress note dated 11/18/2022. 42-year-old female, postop day #5, status post exploratory laparotomy. The patient is resting comfortably in room 452. We have been seeing her every day. She's currently on room air. Saturations are 95%. She's getting lactated Ringer's at 20 mL an hour. He is on Zosyn. She is using her incentive spirometer. She was out of bed and up in the chair yesterday. No new labs today. Labs from November 17 have been reviewed. Microbiologic samples continued to show Bacteroides. On today's evaluation of a 11/19, the patient is resting comfortably in bed. The patient's postop day #6 following her abdominal surgery. Her colostomy site is functional. Her surgical one-sided screen. FRANCESCA drain is putting out serosanguineous drainage that is slightly bloody. Otherwise, no significant abdominal pain. No nausea or vomiting. She is post extensive laparotomy, lysis of adhesions, sigmoid colectomy, Brandon's pouch and diverting colostomy. She is same time, the patient is undergoing hemodialysis today. The patient is on IV Zosyn. The white cell count remains elevated and currently is still at 21.5. Hemoglobin is down to 6.7 and the patient is going to receive units of packed RBC following her transfusion. The BUN is at 63 with a cr eatinine of 10.7. Sodium levels of 135 with a potassium level of 4.2. No significant respiratory distress. As stated, the patient is on room air oxygen for now. The patient's abdominal cultures have been showing anaerobes including back today with his and gram-negative bacillus. On today's evaluation of 11/20/2022, the patient is on room air oxygen pH underwent hemodialysis yesterday pH is postop day #7. The white cell count is slightly improved compared to yesterday the patient is afebrile. The white cell count today is down to 18.5, hemoglobin is at 7.4 and the patient recently units of packed RBC following that hemodialysis yesterday. She remains on IV Zosyn. Her colostomy is functional. FRANCESCA drain is putting out serosanguineous material. Potassium levels at 4.1, BUN is at 38 with a creatinine of 7.3. She is ambulating. No other complaints. No bowel pain. No chest pain. No shortness of breath. On today's evaluation of age 23 2022, the patient is doing well. Her colostomy is functional pH is postop day #8. FRANCESCA drain is still in place. She remains on a combination of Zosyn and Flagyl. White cell count continues to improve is currently down to 15. She undergoes periodic hemodialysis. Serum bicarbs at 17. He is a 54 with a creatinine of 8.7 and a sodium level is at 133. She is on room air oxygen. No other new complaint otherwise for now. Hemoglobin is also stable at 7.8. Objective - Vital Signs Vital signs: Vital Signs Temp 97.6 F 11/21/22 14:54 Pulse 78 11/21/22 14:54 Resp 18 11/21/22 14:54 BP 181/93 11/21/22 14:54 Pulse Ox 100 11/21/22 12:51 FiO2 21 11/20/22 09:09 Intake & Output 11/20/22 11/21/22 11/21/22 18:59 06:59 18:59 Intake Total 200 500 Output Total 300 08 1883 Balance 95 -10 -1800 Weight 93 kg 93.7 kg Intake: IV 100 100 Piperacillin-Tazobactam 3 100 100 .375 gm In Sodium Chloride 0.9% 100 ml @ 25 mls/hr IVPB Q12H [facility] Rx# :[id number] Intake, IV Titration 100 100 Amount metroNIDAZOLE-NS PMX 500 100 100 mg In Saline 1 100ml.bag @ 100 mls/hr IVPB Q8HR [facility] Rx#:[id number] Hemodialysis 300 Output: Drainage 5 10 RLQ FRANCESCA Drain 5 10 Stool 100 Hemodialysis 2300 Other: # Voids 0 # Bowel Movements 1 - Exam No acute distress, oriented 3. Saturations are 95% on room air. The patient is calm and comfortable at this point in time. No signs of any respiratory distress. HEENT examination is grossly unremarkable. Neck supple. Full range of motion. No adenopathy thyromegaly or neck vein distention. Cardiovascular examination reveals regular rhythm rate. S1-S2 normal. No S3 or S4. No discernible murmur noted. . Lungs reveal mild scattered rhonchi. Breath sounds equal bilaterally. No wheezes. No crackles. Abdomen soft, but tender. No bowel sounds. Dressing is noted in place. The patient has a functioning colostomy site. The abdominal surgical site is dry and clean and intact. The patient also the FRANCESCA drain in place. Extremities are intact. No cyanosis clubbing or edema. Skin is without rash or lesion. Neurologic examination is brief but nonfocal. - Labs CBC & Chem 7: 11/21/22 05:18 11/21/22 05:18 Labs: Abnormal Lab Results - Last 24 Hours (Table) 11/21/22 11/21/22 Range/Units 05:18 05:18 WBC 15.4 H (3.8-10.6) k/uL RBC 2.34 L (3.80-5.40) m/uL Hgb 7.8 L (11.4-16.0) gm/dL Hct 23.1 L (34.0-46.0) % RDW 16.9 H (11.5-15.5) % Neutrophils # 13.0 H (1.3-7.7) k/uL Sodium 133 L (137-145) mmol/L Carbon Dioxide 17 L (22-30) mmol/L BUN 54 H (7-17) mg/dL Creatinine 8.79 H* (0.52-1.04) mg/dL Calcium 7.8 L (8.4-10.2) mg/dL Assessment and Plan Plan: Postop day # 8, status post exploratory laparotomy with lysis of adhesions, sigmoid colectomy, Brandon's procedure, abdominal washout, removal of a FRANCESCA dr gan, placement of a FRANCESCA drain, and placement of a wound VAC, for fecal peritonitis, and perforated sigmoid diverticulitis. Leukocytosis is essentially improving and the patient's white cell count is down to 15.4 Peritoneal sepsis, secondary to Bacteroides species. History of hypertension. FSGS- History of end-stage renal disease, previously on peritoneal dialysis, now on hemodialysis.Last hemodialysis session was done yesterday History of seizure disorder. History of gout. Anemia of chronic disease. Previous history of tobacco use. History of anxiety. Acute on top of chronic anemia received a unit of packed RBC yesterday and the hemoglobin is up to 7.4 Plan: Clinically stable The white cell count is still elevated although it continues to improve. and the patient is being monitored and the patient is on IV Zosyn and she is also on Flagyl FRANCESCA drain is in place Colostomy site is functional Patient is on room air oxygen Patient is undergoing hemodialysis and she underwent hemodialysis yesterday The patient is currently on room air. She's getting lactated Ringer's at 20 mL an hour. Hemoglobin is stable post transfusion at 7.8 Monitor hemoglobin Monitor white cell count Hemodialysis was done yesterday Increase mobility Colostomy is functional.
[2022-11-21] MEDS: HYDROmorphone 0.5 MG/0.5 ML SYRINGE IVP PRN (18:23)
[2022-11-21] MEDS: SODIUM BICARBONATE TAB 650 MG TAB PO SCH (20:24)
[2022-11-22] MEDS: HYDROmorphone 1 MG/ML 1 ML SYRINGE IVP PRN ×4 (00:41→21:41)
[2022-11-22] MEDS: PIPERACILLIN-TAZOBACTAM 3.375 GM in SODIUM CHLORIDE 0.9% 100 ML IVPB SCH ×2 (05:22→17:54)
[2022-11-22] MEDS: ACETAMINOPHEN TAB 500 MG TAB PO SCH ×4 (05:23→23:25)
[2022-11-22] MEDS: LACTATED RINGERS 1,000 ML IV SCH (06:03)
[2022-11-22] MEDS: METOPROLOL TARTRATE 25 MG TAB PO SCH ×2 (08:02→21:40)
[2022-11-22] MEDS: lisinopriL 10 MG TAB PO SCH ×2 (08:02→21:41)
[2022-11-22] MEDS: SODIUM BICARBONATE TAB 650 MG TAB PO SCH ×2 (08:02→21:41)
[2022-11-22] MEDS: ENOXAPARIN 30 MG/0.3 ML SYRINGE SQ SCH (08:02)
[2022-11-22] MEDS: PANTOPRAZOLE 40 MG/10 ML VIAL IV SCH (08:03)
[2022-11-22] MEDS: SEVELAMER 800 MG TAB PO SCH ×3 (08:03→17:59)
[2022-11-22] MEDS: RENAPLEX D PO SCH (08:03)
[2022-11-22] MEDS: SIMETHICONE 80 MG CHEWABLE PO SCH ×3 (08:03→21:41)
[2022-11-22] MEDS: metroNIDAZOLE-NS PMX 500 MG in SALINE 1 100ML.BAG IVPB SCH ×3 (08:03→23:25)
--- NOTE | 2022-11-22 11:25 | P.PN ---
Subjective Patient is seen in follow-up for end-stage renal disease. Peritoneal dialysis discontinued 11/06/2022. No problems with dialysis yesterday. Tolerating oral intake. Resting in bed. Hemoglobin 7.8 yesterday. No active bleeding. Family present at bedside. Vital signs are stable. General: No acute distress. HEENT: Head exam is unremarkable. LUNGS: No audible rhonchi or wheezes. HEART: Rate and Rhythm are regular. ABDOMEN: Colostomy noted. EXTREMITITES: No edema. Objective - Vital Signs Vital signs: Vital Signs Temp 98.1 F 11/22/22 07:31 Pulse 75 11/22/22 07:31 Resp 15 11/22/22 07:31 BP 175/98 11/22/22 07:31 Pulse Ox 97 11/22/22 07:31 FiO2 21 11/20/22 09:09 Intake & Output 11/21/22 11/22/22 11/22/22 18:59 06:59 18:59 Intake Total 500 100 Output Total 2310 151 Balance -1810 -51 Weight 92.8 kg Intake: IV 100 Piperacillin-Tazobactam 3 100 .375 gm In Sodium Chloride 0.9% 100 ml @ 25 mls/hr IVPB Q12H [facility] Rx# :[id number] Intake, IV Titration 100 100 Amount metroNIDAZOLE-NS PMX 500 100 100 mg In Saline 1 100ml.bag @ 100 mls/hr IVPB Q8HR [facility] Rx#:[id number] Hemodialysis 300 Output: Drainage 10 1 RLQ FRANCESCA Drain 10 1 Stool 150 Hemodialysis 2300 Other: # Voids 2 - Labs CBC & Chem 7: 11/21/22 05:18 11/21/22 05:18 Assessment and Plan Plan: Assessment: 1. End-stage renal disease maintained on peritoneal dialysis. 2. PD associated peritonitis status post second dose of intraperitoneal vancomy sandrita 11/04/2022. Also received IP Fortaz. Fluid WBC count 4503 on 11/02/2022 and down to 168 11/03/2022. PMNs 93% October 4 an 89% October 5. Fluid culture done prior to admission was positive for E. coli and this admission again positive for bacteroides. PMN count remains elevated. PD catheter discontinued 11/07/2022. 3. Small bowel obstruction. Surgery following. Status post laparoscopic lysis of adhesions and removal of PD catheter 11/07/2022. Subsequently developed fecal peritonitis from perforated sigmoid diverticulitis and underwent exploratory laparotomy with lysis of edema in the sigmoid colectomy on 11/13/2022. 4. Anemia of chronic kidney disease. On Aranesp. Status post blood transfusions this admission. Also received IV DDAVP. No active bleeding. 5. Hypertension with chronic kidney disease. Stable. 6. Chronic kidney disease mineral bone disease. Phosphorus level 10.4 dated 11/09/2022. Phosphorus level 8.1 dated 11/17/2022. On Renvela - dose increased. 7. Metabolic acidosis secondary to chronic kidney disease. On oral bicarbonate. Expect further improvement postdialysis. Plan: Hemodialysis tomorrow. Antibiotics per infectious disease. Discussed with surgery team. Due to severe adhesions, she will not be a candidate for peritoneal dialysis in the future. Discussed workup for kidney transplant upon discharge. Add scheduled hydralazine. Hold for systolic blood pressure less than 120. Patient doesn't make any urine.
[2022-11-22] MEDS: hydrALAZINE HCL 25 MG TAB PO SCH ×3 (12:42→21:41)
--- NOTE | 2022-11-22 13:23 | P.PN ---
Subjective Progress Note Date: 11/22/22 CHIEF COMPLAINT: Abdominal pain HISTORY OF PRESENT ILLNESS: The patient is a 42-year-old female status post exploratory laparotomy, descending colostomy for perforated diverticulitis, 11/13/2022. Patient's ostomy is functioning. Her pain is controlled. She denies any nausea or vomiting. Afebrile. Labs pending PHYSICAL EXAM: VITAL SIGNS: Reviewed GENERAL: Well-developed in no acute distress. HEENT: No sclera icterus. Extraocular movements grossly intact. Moist buccal mucosa. Head is atraumatic, normocephalic. Hears conversational speech. No nasal drainage. NECK: Supple without lymphadenopathy. CHEST: Non-labored respirations and equal bilateral excursions. CARDIOVASCULAR: Palpable 2+ radial pulses. ABDOMEN: soft, nondistended. FRANCESCA drains serous output. Incision dressing with very small serous drainage at the distal aspect MUSCULOSKELETAL: No clubbing or cyanosis. NEUROLOGIC: No focal or lateralizing signs. Cranial nerves II through XII grossly intact. PSYCH: Appropriate affect. Alert and oriented to person, place and time. SKIN: Well perfused. Good skin turgor. ASSESSMENT: 1. Perforated sigmoid diverticulitis 2. Small bowel obstruction 3. Sepsis 4. End-stage renal disease 5. Chronic anemia PLAN: -Continue low fiber diet -Antibiotics per infectious disease -Continue to monitor white count -Encourage patient to use incentive spirometer -Encourage patient to ambulate Physician Dowel Sticker Operator note has been reviewed by physician. Signing provider agrees with the documented findings, assessment, and plan of care. Objective - Vital Signs Vital signs: Vital Signs Temp 98.1 F 11/22/22 07:31 Pulse 75 11/22/22 07:31 Resp 15 11/22/22 07:31 BP 175/98 11/22/22 07:31 Pulse Ox 97 11/22/22 07:31 FiO2 21 11/20/22 09:09 Intake & Output 11/21/22 11/22/22 11/22/22 18:59 06:59 18:59 Intake Total 500 100 300 Output Total 2310 151 Balance -1810 -51 300 Weight 92.8 kg Intake: IV 100 100 Piperacillin-Tazobactam 3 100 100 .375 gm In Sodium Chloride 0.9% 100 ml @ 25 mls/hr IVPB Q12H [facility] Rx# :[id number] Intake, IV Titration 100 100 200 Amount Piperacillin-Tazobactam 3 100 .375 gm In Sodium Chloride 0.9% 100 ml @ 25 mls/hr IVPB Q12H [facility] Rx# :[id number] metroNIDAZOLE-NS PMX 500 100 100 100 mg In Saline 1 100ml.bag @ 100 mls/hr IVPB Q8HR [facility] Rx#:[id number] Hemodialysis 300 Output: Drainage 10 1 RLQ FRANCESCA Drain 10 1 Stool 150 Hemodialysis 2300 Other: # Voids 2 - Labs CBC & Chem 7: 11/21/22 05:18 11/21/22 05:18
[2022-11-22 14:37] LABS: Basophils % (A) 0.6 %; Eosinophils % (A) 1.8 %; HCT 23.2 % (37.2-46.3); HGB 7.2 d/dL (12.0-15.0); Lymphocytes # (A) 1.64 X 10*3/uL (0.90-5.00); Lymphocytes % (A) 9.6 %; MCH 32.3 pg (27.0-32.0); Mean Platelet Volume 9.6 FL (9.5-12.2); Monocytes # (A) 1.08 X 10*3/uL (0.20-1.00); Monocytes % (A) 6.3 %; NRBC Per 100 WBC 0 X 10*3/uL (0.00-0.01); Neutrophils # (A) 13.56 X 10*3/uL (1.80-7.70); Neutrophils % (A) 79.4 %; Platelet Count 438 X 10*3/uL (140-440); RBC 2.23 X 10*6/uL (4.10-5.20); RDW 17.2 % (11.5-14.5); WBC 17.07 X 10*3/uL (4.50-10.00)
--- NOTE | 2022-11-22 20:48 | P.PN ---
Subjective Progress Note Date: 11/22/22 Patient is evaluated today resting in bed receiving hemodialysis. Postoperative day #6 exploratory laparotomy with lysis of adhesions, sigmoid colectomy, ostomy formation, abdominal lavage, closed with a prevana wound VAC system. Reports abdominal pain is controlled with current regimen. Midline incision dressing clean dry and intact. Patient has FRANCESCA drain in place to the right abdomen. White count today 21.58 patient remains on IV zosyn and followed by ID. Creatinine 10.7 today. Hemoglobin 6.7 patient will receive 1 unit of PRBC. 11/20/2022 Patient sitting up in chair today family at bedside. Reports minimal abdominal discomfort and making stool through ostomy. The bag is full with brown soft st ool. Patient tolerating some diet. Remains on antibiotics IV zosyn/IV flagyl and white count has improved to 18 today. ID following. Patient received 1 unit of PRBC and 1 dose DDAVP yesterday with hemoglobin today of 7.4 no signs of active bleeding. 11/21/2022 Patient is evaluated today resting in bed. She reports continued improvement in her abdominal pain, making stool from the ostomy. Patient remains on IV antibiotics with IV Zosyn and IV Flagyl. Her white count is down to 15.4 today and hemoglobin remained stable at 7.8. No other acute issues. 11/22/2022 Patient evaluated today resting in bed. Reports minimal abdominal pain, making stool from the ostomy. Remains on IV zosyn and IV flagyl. Has IV access for discharge antibiotics. Pending labs for today to monitor white count. Patient to undergo hemodialysis tomorrow per usual MWF schedule. Review of Systems Constitutional: Denied any fatigue denied any fever. Cardio vascular: denied any chest pain, palpitations Gastrointestinal: denied any nausea, vomiting, diarrhea, reports mild abdominal pain Pulmonary: Denied any shortness of breath cough Neurologic denied any new focal deficits All inpatient medications were reviewed and appropriate changes in these medications as dictated in the interval history and assessment and plan. PHYSICAL EXAMINATION: GENERAL: The patient is alert and oriented x3, not in any acute distress. Well developed, well nourished. HEENT: Pupils are round and equally reacting to light. EOMI. No scleral icterus. No conjunctival pallor. Normocephalic, atraumatic. No pharyngeal erythema. No thyromegaly. CARDIOVASCULAR: S1 and S2 present. No murmurs, rubs, or gallops. PULMONARY: Chest is clear to auscultation, no wheezing or crackles. ABDOMEN: Soft, tender, nondistended, normoactive bowel sounds. No palpable organomegaly. Midline dressing intact, FRANCESCA drain RLQ. Ostomy present with s emiformed brown stool. MUSCULOSKELETAL: No joint swelling or deformity. EXTREMITIES: No cyanosis, clubbing, or pedal edema. NEUROLOGICAL: Gross neurological examination did not reveal any focal deficits. Diffuse weakness SKIN: No rashes. Assessment Fecal peritonitis and sepsis due to perforated sigmoid diverticulitis Small bowel obstruction with sigmoid colectomy and ostomy formation Personal dialysis catheter associated peritonitis with removal of PD catheter Leukocytosis improving overall. Chronic kidney disease secondary to FSGS transition to hemodialysis this admission History of hypertension Seizure disorder as a child Anxiety GI prophylaxis DVT prophylaxis Full code Plan Continue antibiotics with ID following closely pending recommendations for discharge antibiotics Pain management, and recommend to continue with IS 10 x an hour while awake. Hemodialysis per nephrology Pending labs from today, patient will be considered for discharge once white count has normalized. The impression and plan of care has been dictated by Roberta Miguel, Nurse Practitioner as directed. Dr. Yuki MD I have performed a history and physical examination and medical decision making of this patient, discussed the same with the dictator, and agree with the dictators assessment and plan as written, documented as a scribe. Based on total visit time, I have performed more than 50% of this visit. Objective - Vital Signs Vital signs: Vital Signs Temp 98.1 F 11/22/22 13:10 Pulse 71 11/22/22 13:10 Resp 14 11/22/22 13:10 BP 164/105 11/22/22 13:10 Pulse Ox 96 11/22/22 13:10 FiO2 21 11/20/22 09:09 Intake & Output 11/22/22 11/22/22 11/23/22 06:59 18:59 06:59 Intake Total 100 300 Output Total 151 Balance -51 300 Weight 92.8 kg Intake: IV 100 Piperacillin-Tazobactam 3 100 .375 gm In Sodium Chloride 0.9% 100 ml @ 25 mls/hr IVPB Q12H [facility] Rx# :[id number] Intake, IV Titration 100 200 Amount Piperacillin-Tazobactam 3 100 .375 gm In Sodium Chloride 0.9% 100 ml @ 25 mls/hr IVPB Q12H [facility] Rx# :[id number] metroNIDAZOLE-NS PMX 500 100 100 mg In Saline 1 100ml.bag @ 100 mls/hr IVPB Q8HR [facility] Rx#:[id number] Output: Drainage 1 RLQ FRANCESCA Drain 1 Stool 150 Other: # Voids 2 - Labs CBC & Chem 7: 11/22/22 03:42 11/21/22 05:18 Labs: Abnormal Lab Results - Last 24 Hours (Table) 11/22/22 Range/Units 03:42 WBC 17.07 H (4.50-10.00) X 10*3/uL RBC 2.23 L (4.10-5.20) X 10*6/uL Hgb 7.2 L (12.0-15.0) d/dL Hct 23.2 L (37.2-46.3) % MCV 104.0 H (80.0-97.0) FL MCH 32.3 H (27.0-32.0) pg MCHC 31.0 L (32.0-37.0) d/dL RDW 17.2 H (11.5-14.5) % Neutrophils # 13.56 H (1.80-7.70) X 10*3/uL Monocytes # 1.08 H (0.20-1.00) X 10*3/uL Assessment and Plan Time with Patient: Less than 30
[2022-11-23 00:52] LABS: BUN/Creat Ratio 5.17 Ratio (12.00-20.00); Blood Urea Nitrogen 33.6 mg/dL (9.0-27.0); Calcium 8.1 mg/dL (8.7-10.3); Carbon Dioxide 23.8 mmol/L (21.6-31.8); Chloride 94 mmol/L (96-109); Glucose 75 mg/dL (70-110); Potassium 4.3 mmol/L (3.5-5.5); Sodium 135 mmol/L (135-145)
[2022-11-23] MEDS: LACTATED RINGERS 1,000 ML IV SCH (01:38)
[2022-11-23] MEDS: HYDROmorphone 1 MG/ML 1 ML SYRINGE IVP PRN ×2 (02:07→06:37)
[2022-11-23] MEDS: ACETAMINOPHEN TAB 500 MG TAB PO SCH ×2 (06:35→14:24)
[2022-11-23] MEDS: PIPERACILLIN-TAZOBACTAM 3.375 GM in SODIUM CHLORIDE 0.9% 100 ML IVPB SCH (06:35)
[2022-11-23] MEDS: SEVELAMER 800 MG TAB PO SCH ×2 (06:42→14:23)
[2022-11-23 09:32] LABS: Anisocytosis Slight; Basophils % (A) 0 %; Eosinophils # (A) 0.4 k/uL (0-0.7); Eosinophils % (A) 3 %; HCT 23.5 % (34.0-46.0); HGB 7.6 gm/dL (11.4-16.0); Hypochromasia Slight; Lymphocytes # (A) 1.1 k/uL (1.0-4.8); Lymphocytes % (A) 8 %; MCH 32.4 pg (25.0-35.0); MCHC 32.3 g/dL (31.0-37.0); MCV 100.4 fL (80.0-100.0); Macrocytosis Slight; Monocytes # (A) 0.6 k/uL (0-1.0); Monocytes % (A) 4 %; Neutrophils # (A) 12.3 k/uL (1.3-7.7); Neutrophils % (A) 84 %; Platelet Count 450 k/uL (150-450); RBC 2.34 m/uL (3.80-5.40); RDW 16.3 % (11.5-15.5); WBC 14.6 k/uL (3.8-10.6)
[2022-11-23 09:47] LABS: African American GFR (CKD) 6 (>60 ml/min/1.73 sqM); Anion Gap 15 mmol/L; Blood Urea Nitrogen 53 mg/dL (7-17); Calcium 7.7 mg/dL (8.4-10.2); Carbon Dioxide 22 mmol/L (22-30); Chloride 94 mmol/L (98-107); Glucose 73 mg/dL (74-99); Non-African American GFR(CKD) 5 (>60 ml/min/1.73 sqM); Potassium 4.2 mmol/L (3.5-5.1); Sodium 131 mmol/L (137-145)
--- NOTE | 2022-11-23 11:28 | P.PN ---
Subjective Patient is seen in follow-up for end-stage renal disease. Peritoneal dialysis discontinued 11/06/2022 tolerating dialysis well. Tolerating oral intake. Resting in bed. Hemoglobin stable at 7.6 today. No active bleeding. Family present at bedside. Vital signs are stable. General: No acute distress. HEENT: Head exam is unremarkable. LUNGS: No audible rhonchi or wheezes. HEART: Rate and Rhythm are regular. ABDOMEN: Colostomy noted. EXTREMITITES: No edema. Objective - Vital Signs Vital signs: Vital Signs Temp 98.4 F 11/23/22 07:10 Pulse 80 11/23/22 07:10 Resp 14 11/23/22 07:10 BP 164/84 11/23/22 07:10 Pulse Ox 94 L 11/23/22 07:10 FiO2 21 11/20/22 09:09 Intake & Output 11/22/22 11/23/22 11/23/22 18:59 06:59 18:59 Intake Total 300 Output Total 25 Balance 300 -25 Weight 93.4 kg Intake: IV 100 Piperacillin-Tazobactam 3 100 .375 gm In Sodium Chloride 0.9% 100 ml @ 25 mls/hr IVPB Q12H [facility] Rx# :[id number] Intake, IV Titration 200 Amount Piperacillin-Tazobactam 3 100 .375 gm In Sodium Chloride 0.9% 100 ml @ 25 mls/hr IVPB Q12H [facility] Rx# :[id number] metroNIDAZOLE-NS PMX 500 100 mg In Saline 1 100ml.bag @ 100 mls/hr IVPB Q8HR [facility] Rx#:[id number] Output: Drainage 25 RLQ FRANCESCA Drain 25 Other: Voiding Method Toilet - Labs CBC & Chem 7: 11/23/22 07:28 11/23/22 07:28 Labs: Abnormal Lab Results - Last 24 Hours (Table) 11/22/22 11/22/22 11/23/22 Range/Units 03:42 03:42 07:28 WBC 17.07 H 14.6 H (4.50-10.00) X 10*3/uL RBC 2.23 L 2.34 L (4.10-5.20) X 10*6/uL Hgb 7.2 L 7.6 L (12.0-15.0) d/dL Hct 23.2 L 23.5 L (37.2-46.3) % MCV 104.0 H 100.4 H (80.0-97.0) FL MCH 32.3 H (27.0-32.0) pg MCHC 31.0 L (32.0-37.0) d/dL RDW 17.2 H 16.3 H (11.5-14.5) % Neutrophils # 13.56 H 12.3 H (1.80-7.70) X 10*3/uL Monocytes # 1.08 H (0.20-1.00) X 10*3/uL Sodium (137-145) mmol/L Chloride 94 L (96-109) mmol/L Anion Gap 17.20 H (4.00-12.00) mmol/L BUN 33.6 H (9.0-27.0) mg/dL Creatinine 6.5 H (0.6-1.5) mg/dL Est GFR (CKD-EPI) 8 L (>=60) BUN/Creatinine Ratio 5.17 L (12.00-20.00) Ratio Glucose (74-99) mg/dL Calcium 8.1 L (8.7-10.3) mg/dL 11/23/22 Range/Units 07:28 WBC (4.50-10.00) X 10*3/uL RBC (4.10-5.20) X 10*6/uL Hgb (12.0-15.0) d/dL Hct (37.2-46.3) % MCV (80.0-97.0) FL MCH (27.0-32.0) pg MCHC (32.0-37.0) d/dL RDW (11.5-14.5) % Neutrophils # (1.80-7.70) X 10*3/uL Monocytes # (0.20-1.00) X 10*3/uL Sodium 131 L (137-145) mmol/L Chloride 94 L (96-109) mmol/L Anion Gap (4.00-12.00) mmol/L BUN 53 H (9.0-27.0) mg/dL Creatinine 8.74 H* (0.6-1.5) mg/dL Est GFR (CKD-EPI) (>=60) BUN/Creatinine Ratio (12.00-20.00) Ratio Glucose 73 L (74-99) mg/dL Calcium 7.7 L (8.7-10.3) mg/dL Assessment and Plan Plan: Assessment: 1. End-stage renal disease maintained on peritoneal dialysis. 2. PD associated peritonitis status post second dose of intraperitoneal vancomycin 11/04/2022. Also received IP Fortaz. Fluid WBC count 4503 on 11/02/2022 and down to 168 11/03/2022. PMNs 93% October 4 an 89% October 5. Fluid culture done prior to admission was positive for E. coli and this admission again positive for bacteroides. PMN count remains elevated. PD catheter discontinued 11/07/2022. 3. Small bowel obstruction. Surgery following. Status post laparoscopic lysis of adhesions and removal of PD catheter 11/07/2022. Subsequently developed fecal peritonitis from perforated sigmoid diverticulitis and underwent exploratory laparotomy with lysis of edema in the sigmoid colectomy on 11/13/2022. 4. Anemia of chronic kidney disease. On Aranesp. Status post blood transfusions this admission. Also received IV DDAVP. No active bleeding. 5. Hypertension with chronic kidney disease. Stable. 6. Chronic kidney disease mineral bone disease. Phosphorus level 10.4 dated 11/09/2022. Phosphorus level 8.1 dated 11/17/2022. On Renvela - dose increased. 7. Metabolic acidosis secondary to chronic kidney disease. On oral bicarbonate. Expect further improvement postdialysis. Plan: Currently seen while undergoing hemodialysis. Next treatment on Saturday. Antibiotics per infectious disease. Discussed with surgery team. Due to severe adhesions, she will not be a candidate for peritoneal dialysis in the future. Discussed workup for kidney transplant upon discharge. Increase dose of hydralazine. Patient doesn't make any urine.
[2022-11-23 11:48] VITALS: PULSE 89
[2022-11-23] MEDS: metroNIDAZOLE-NS PMX 500 MG in SALINE 1 100ML.BAG IVPB SCH ×2 (12:31→17:07)
[2022-11-23] MEDS: lisinopriL 10 MG TAB PO SCH (13:33)
[2022-11-23] MEDS: SODIUM BICARBONATE TAB 650 MG TAB PO SCH (13:34)
[2022-11-23] MEDS: SIMETHICONE 80 MG CHEWABLE PO SCH ×2 (13:34→17:08)
[2022-11-23] MEDS: RENAPLEX D PO SCH (14:25)
[2022-11-23] MEDS: METOPROLOL TARTRATE 25 MG TAB PO SCH (14:25)
[2022-11-23] MEDS: ENOXAPARIN 30 MG/0.3 ML SYRINGE SQ SCH (14:25)
[2022-11-23] MEDS: PANTOPRAZOLE 40 MG/10 ML VIAL IV SCH (14:25)
[2022-11-23] MEDS: hydrALAZINE HCL 25 MG TAB PO SCH (14:37)
[2022-11-23 14:55] VITALS: BP 161/89; RESP 16; TEMP 98.9
--- NOTE | 2022-11-23 15:33 | P.PN ---
Subjective Progress Note Date: 11/23/22 CHIEF COMPLAINT: Abdominal pain HISTORY OF PRESENT ILLNESS: The patient is a 42-year-old female status post exploratory laparotomy, descending colostomy for perforated diverticulitis, 11/13/2022. Patient's ostomy is functioning. Her pain is controlled. She denies any nausea or vomiting. Patient was noted during the night to have some drainage from the incision. Afebrile. WBC is down from 17-14 Hgb is 7.6 platelets are 450 PHYSICAL EXAM: VITAL SIGNS: Reviewed GENERAL: Well-developed in no acute distress. HEENT: No sclera icterus. Extraocular movements grossly intact. Moist buccal mucosa. Head is atraumatic, normocephalic. Hears conversational speech. No nasal drainage. NECK: Supple without lymphadenopathy. CHEST: Non-labored respirations and equal bilateral excursions. CARDIOVASCULAR: Palpable 2+ radial pulses. ABDOMEN: soft, nondistended. FRANCESCA drains serous output. Middle of incision noted to have serous drainage MUSCULOSKELETAL: No clubbing or cyanosis. NEUROLOGIC: No focal or lateralizing signs. Cranial nerves II through XII grossly intact. PSYCH: Appropriate affect. Alert and oriented to person, place and time. SKIN: Well perfused. Good skin turgor. ASSESSMENT: 1. Perforated sigmoid diverticulitis 2. Small bowel obstruction 3. Sepsis 4. End-stage renal disease 5. Chronic anemia PLAN: -Patient can be discharged from surgical standpoint -Discharge antibiotic per infectious disease -Continue to clean the incision with antibacterial soap and hydrogen peroxide twice a day -Continue low fiber diet Physician Service [employer] note has been reviewed by physician. Signing provider agrees with the documented findings, assessment, and plan of care. Objective - Vital Signs Vital signs: Vital Signs Temp 98.4 F 11/23/22 07:10 Pulse 80 11/23/22 07:10 Resp 14 11/23/22 07:10 BP 164/84 11/23/22 07:10 Pulse Ox 94 L 11/23/22 07:10 FiO2 21 11/20/22 09:09 Intake & Output 11/22/22 11/23/22 11/23/22 18:59 06:59 18:59 Intake Total 300 Output Total 25 Balance 300 -25 Weight 93.4 kg Intake: IV 100 Piperacillin-Tazobactam 3 100 .375 gm In Sodium Chloride 0.9% 100 ml @ 25 mls/hr IVPB Q12H [facility] Rx# :[id number] Intake, IV Titration 200 Amount Piperacillin-Tazobactam 3 100 .375 gm In Sodium Chloride 0.9% 100 ml @ 25 mls/hr IVPB Q12H [facility] Rx# :[id number] metroNIDAZOLE-NS PMX 500 100 mg In Saline 1 100ml.bag @ 100 mls/hr IVPB Q8HR [facility] Rx#:[id number] Output: Drainage 25 RLQ FRANCESCA Drain 25 Other: Voiding Method Toilet - Labs CBC & Chem 7: 11/23/22 07:28 11/23/22 07:28 Labs: Abnormal Lab Results - Last 24 Hours (Table) 11/22/22 11/22/22 11/23/22 Range/Units 03:42 03:42 07:28 WBC 17.07 H 14.6 H (4.50-10.00) X 10*3/uL RBC 2.23 L 2.34 L (4.10-5.20) X 10*6/uL Hgb 7.2 L 7.6 L (12.0-15.0) d/dL Hct 23.2 L 23.5 L (37.2-46.3) % MCV 104.0 H 100.4 H (80.0-97.0) FL MCH 32.3 H (27.0-32.0) pg MCHC 31.0 L (32.0-37.0) d/dL RDW 17.2 H 16.3 H (11.5-14.5) % Neutrophils # 13.56 H 12.3 H (1.80-7.70) X 10*3/uL Monocytes # 1.08 H (0.20-1.00) X 10*3/uL Sodium (137-145) mmol/L Chloride 94 L (96-109) mmol/L Anion Gap 17.20 H (4.00-12.00) mmol/L BUN 33.6 H (9.0-27.0) mg/dL Creatinine 6.5 H (0.6-1.5) mg/dL Est GFR (CKD-EPI) 8 L (>=60) BUN/Creatinine Ratio 5.17 L (12.00-20.00) Ratio Glucose (74-99) mg/dL Calcium 8.1 L (8.7-10.3) mg/dL 11/23/22 Range/Units 07:28 WBC (4.50-10.00) X 10*3/uL RBC (4.10-5.20) X 10*6/uL Hgb (12.0-15.0) d/dL Hct (37.2-46.3) % MCV (80.0-97.0) FL MCH (27.0-32.0) pg MCHC (32.0-37.0) d/dL RDW (11.5-14.5) % Neutrophils # (1.80-7.70) X 10*3/uL Monocytes # (0.20-1.00) X 10*3/uL Sodium 131 L (137-145) mmol/L Chloride 94 L (96-109) mmol/L Anion Gap (4.00-12.00) mmol/L BUN 53 H (9.0-27.0) mg/dL Creatinine 8.74 H* (0.6-1.5) mg/dL Est GFR (CKD-EPI) (>=60) BUN/Creatinine Ratio (12.00-20.00) Ratio Glucose 73 L (74-99) mg/dL Calcium 7.7 L (8.7-10.3) mg/dL
[2022-11-23 15:36] VITALS: BMI 35.3
--- NOTE | 2022-11-23 15:55 | P.PN ---
Subjective Progress Note Date: 11/21/22 Principal diagnosis: PD catheter associated peritonitis Patient is a 42-year-old female with a past medical history negative for hypertension seizure disorder history of end-stage renal disease on peritoneal dialysis since December 2018 did have 1 previous episode of infection treated with antibiotics patient started having a problem with abdominal pain that started on Saturday that is about 4 days before presentation to the hospital, patient has been diagnosed with peritonitis also have CT abdominal pelvis suggestive of ileus.Patient is status post laparoscopic lysis of adhesion removal of dialysis catheter and drainage of the abscess on 11/07/2022. Patient was taken to the OR late 11/12/2022 status post laparotomy and evidence of perforated sigmoid diverticulitis post sigmoid colectomy and an ostomy on today's evaluation that is 11/21/2022, the patient continues to be afebrile, the patient is breathing comfortably on room air, the patient denies any chest pain shortness of breath or cough , the patient has been tolerating her diet no nausea no vomiting and no abdominal pain Patient did have a hemoglobin of 7.8, white count is down to 15.4 abdominal cu lture repeat negative so far Objective - Vital Signs Vital signs: Vital Signs Temp 97.6 F 11/21/22 14:54 Pulse 78 11/21/22 14:54 Resp 18 11/21/22 14:54 BP 181/93 11/21/22 14:54 Pulse Ox 100 11/21/22 12:51 FiO2 21 11/20/22 09:09 Intake & Output 11/20/22 11/21/22 11/21/22 18:59 06:59 18:59 Intake Total 200 500 Output Total 421 52 5502 Balance 95 -10 -1800 Weight 93 kg 93.7 kg Intake: IV 100 100 Piperacillin-Tazobactam 3 100 100 .375 gm In Sodium Chloride 0.9% 100 ml @ 25 mls/hr IVPB Q12H [facility] Rx# :[id number] Intake, IV Titration 100 100 Amount metroNIDAZOLE-NS PMX 500 100 100 mg In Saline 1 100ml.bag @ 100 mls/hr IVPB Q8HR [facility] Rx#:[id number] Hemodialysis 300 Output: Drainage 5 10 RLQ FRANCESCA Drain 5 10 Stool 100 Hemodialysis 2300 Other: # Voids 0 # Bowel Movements 1 - Exam GENERAL DESCRIPTION: Middle-aged female lying in bed in no distress RESPIRATORY SYSTEM: Unlabored breathing , decreased breath sounds at bases HEART: S1 S2 regular rate and rhythm , ABDOMEN: Soft , mild abdominal distention and tenderness EXTREMITIES: No edema feet - Labs CBC & Chem 7: 11/23/22 07:28 11/23/22 07:28 Labs: Abnormal Lab Results - Last 24 Hours (Table) 11/21/22 11/21/22 Range/Units 05:18 05:18 WBC 15.4 H (3.8-10.6) k/uL RBC 2.34 L (3.80-5.40) m/uL Hgb 7.8 L (11.4-16.0) gm/dL Hct 23.1 L (34.0-46.0) % RDW 16.9 H (11.5-15.5) % Neutrophils # 13.0 H (1.3-7.7) k/uL Sodium 133 L (137-145) mmol/L Carbon Dioxide 17 L (22-30) mmol/L BUN 54 H (7-17) mg/dL Creatinine 8.79 H* (0.52-1.04) mg/dL Calcium 7.8 L (8.4-10.2) mg/dL Assessment and Plan (1) Intra-abdominal abscess Current Visit: Yes Status: Acute Code(s): K65.1 - PERITONEAL ABSCESS SNOMED Code(s): 49428544 (2) Diverticulitis of large intestine with complication Current Visit: Yes Status: Acute Code(s): K57.32 - DVTRCLI OF LG INT W/O PERFORATION OR ABSCESS W/O BLEEDING SNOMED Code(s): 025804387 Plan: 1patient presented hospital abdominal pain cloudy peritoneal fluid did have a significant elevated white in the peritoneal fluid likely secondary to PD catheter associated peritonitis patient did not have any evidence of abdominal infection at the site of insertion of the PD catheter patient also have evidence of ileus on the CT may be contributing some of her abdominal pain, patient did have a small bowel follow-through, did show delayed transit of contrast through the bowel with no evidence of small bowel obstruction 2-patient is status post laparoscopic lysis of adhesion removal of the dialysis catheter and drainage of the abscess abdominal cultures grew bacteroids species 3patient did have evidence of perforated sigmoid colitis status post sigmoid colectomy and diverting colostomy along with drainage of the abscess cultures Are so far negative. 4patient seem to have shown some clinical improvement is afebrile and the white count is trending down, patient to continue with the Zosyn and Flagyl white count will monitor closely hopefully finishing therapy with oral antibiotics Dictation was produced using [employer] dictation software. please excuse any grammatical, word or spelling errors. Time with Patient: Less than 30
--- NOTE | 2022-11-23 15:56 | P.PN ---
Subjective Progress Note Date: 11/22/22 Principal diagnosis: PD catheter associated peritonitis Patient is a 42-year-old female with a past medical history negative for hypertension seizure disorder history of end-stage renal disease on peritoneal dialysis since December 2018 did have 1 previous episode of infection treated with antibiotics patient started having a problem with abdominal pain that started on Saturday that is about 4 days before presentation to the hospital, patient has been diagnosed with peritonitis also have CT abdominal pelvis suggestive of ileus.Patient is status post laparoscopic lysis of adhesion removal of dialysis catheter and drainage of the abscess on 11/07/2022. Patient was taken to the OR late 11/12/2022 status post laparotomy and evidence of perforated sigmoid diverticulitis post sigmoid colectomy and an ostomy on today's evaluation that is 11/22/2022, the patient remains to be afebrile, the patient is breathing comfortably on room air, the patient denies chest pain shortness of breath or cough , the patient has been tolerating her diet and the patient denies nausea no vomiting and no abdominal pain Patient did have a hemoglobin of 7.2, white count is slightly up to 17.07 today, abdominal culture repeat negative so far Objective - Vital Signs Vital signs: Vital Signs Temp 98.1 F 11/22/22 07:31 Pulse 75 11/22/22 07:31 Resp 15 11/22/22 07:31 BP 175/98 11/22/22 07:31 Pulse Ox 97 11/22/22 07:31 FiO2 21 11/20/22 09:09 Intake & Output 11/21/22 11/22/22 11/22/22 18:59 06:59 18:59 Intake Total 500 100 300 Output Total 2310 151 Balance -1810 -51 300 Weight 92.8 kg Intake: IV 100 100 Piperacillin-Tazobactam 3 100 100 .375 gm In Sodium Chloride 0.9% 100 ml @ 25 mls/hr IVPB Q12H [facility] Rx# :[id number] Intake, IV Titration 100 100 200 Amount Piperacillin-Tazobactam 3 100 .375 gm In Sodium Chloride 0.9% 100 ml @ 25 mls/hr IVPB Q12H [facility] Rx# :[id number] metroNIDAZOLE-NS PMX 500 100 100 100 mg In Saline 1 100ml.bag @ 100 mls/hr IVPB Q8HR [facility] Rx#:[id number] Hemodialysis 300 Output: Drainage 10 1 RLQ FRANCESCA Drain 10 1 Stool 150 Hemodialysis 2300 Other: # Voids 2 - Exam GENERAL DESCRIPTION: Middle-aged female lying in bed in no distress RESPIRATORY SYSTEM: Unlabored breathing , decreased breath sounds at bases HEART: S1 S2 regular rate and rhythm , ABDOMEN: Soft , mild abdominal distention and tenderness EXTREMITIES: No edema feet - Labs CBC & Chem 7: 11/23/22 07:28 11/23/22 07:28 Assessment and Plan (1) Intra-abdominal abscess Current Visit: Yes Status: Acute Code(s): K65.1 - PERITONEAL ABSCESS SNOMED Code(s): 48046099 (2) Diverticulitis of large intestine with complication Current Visit: Yes Status: Acute Code(s): K57.32 - DVTRCLI OF LG INT W/O PERFORATION OR ABSCESS W/O BLEEDING SNOMED Code(s): 005334570 Plan: 1patient presented hospital abdominal pain cloudy peritoneal fluid did have a significant elevated white in the peritoneal fluid likely secondary to PD catheter associated peritonitis patient did not have any evidence of abdominal infection at the site of insertion of the PD catheter patient also have evidence of ileus on the CT may be contributing some of her abdominal pain, patient did have a small bowel follow-through, did show delayed transit of contrast through the bowel with no evidence of small bowel obstruction 2-patient is status post laparoscopic lysis of adhesion removal of the dialysis catheter and drainage of the abscess abdominal cultures grew bacteroids species 3patient did have evidence of perforated sigmoid colitis status post sigmoid colectomy and diverting colostomy along with drainage of the abscess cultures Are so far negative. 4patient has shown some clinical improvement is afebrile however the white count is slightly up today that we'll monitor closely, patient to continue with the Zosyn and Flagyl and continue supportive care Dictation was produced using [employer] dictation software. please excuse any grammatical, word or spelling errors. Time with Patient: Less than 30
--- NOTE | 2022-11-23 15:59 | P.PN ---
Subjective Progress Note Date: 11/23/22 Principal diagnosis: PD catheter associated peritonitis Patient is a 42-year-old female with a past medical history negative for hypertension seizure disorder history of end-stage renal disease on peritoneal dialysis since December 2018 did have 1 previous episode of infection treated with antibiotics patient started having a problem with abdominal pain that started on Saturday that is about 4 days before presentation to the hospital, patient has been diagnosed with peritonitis also have CT abdominal pelvis suggestive of ileus.Patient is status post laparoscopic lysis of adhesion removal of dialysis catheter and drainage of the abscess on 11/07/2022. Patient was taken to the OR late 11/12/2022 status post laparotomy and evidence of perforated sigmoid diverticulitis post sigmoid colectomy and an ostomy on today's evaluation that is 11/23/2022, the patient denies any fever and chills, the patient is breathing comfortably on room air, the patient denies chest pain shortness of breath or cough , the patient has been tolerating her diet and the patient denies nausea no vomiting and no abdominal pain, feeling better insisting on going home Patient did have a hemoglobin of 7.2, white count is down to 14.6, abdominal culture repeat negative so far Objective - Vital Signs Vital signs: Vital Signs Temp 98.0 F 11/23/22 11:47 Pulse 89 11/23/22 11:47 Resp 18 11/23/22 11:47 BP 165/98 11/23/22 11:47 Pulse Ox 94 L 11/23/22 07:10 FiO2 21 11/20/22 09:09 Intake & Output 11/22/22 11/23/22 11/23/22 18:59 06:59 18:59 Intake Total 300 300 Output Total 25 2300 Balance 300 25 Weight 93.4 kg Intake: IV 100 Piperacillin-Tazobactam 3 100 .375 gm In Sodium Chloride 0.9% 100 ml @ 25 mls/hr IVPB Q12H [facility] Rx# :[id number] Intake, IV Titration 200 Amount Piperacillin-Tazobactam 3 100 .375 gm In Sodium Chloride 0.9% 100 ml @ 25 mls/hr IVPB Q12H [facility] Rx# :[id number] metroNIDAZOLE-NS PMX 500 100 mg In Saline 1 100ml.bag @ 100 mls/hr IVPB Q8HR [facility] Rx#:[id number] Hemodialysis 300 Output: Drainage 25 RLQ FRANCESCA Drain 25 Hemodialysis 2300 Other: Voiding Method Toilet - Exam GENERAL DESCRIPTION: Middle-aged female lying in bed in no distress RESPIRATORY SYSTEM: Unlabored breathing , decreased breath sounds at bases HEART: S1 S2 regular rate and rhythm , ABDOMEN: Soft , mild abdominal distention and tenderness EXTREMITIES: No edema feet - Labs CBC & Chem 7: 11/23/22 07:28 11/23/22 07:28 Labs: Abnormal Lab Results - Last 24 Hours (Table) 11/22/22 11/23/22 11/23/22 Range/Units 03:42 07:28 07:28 WBC 14.6 H (3.8-10.6) k/uL RBC 2.34 L (3.80-5.40) m/uL Hgb 7.6 L (11.4-16.0) gm/dL Hct 23.5 L (34.0-46.0) % MCV 100.4 H (80.0-100.0) fL RDW 16.3 H (11.5-15.5) % Neutrophils # 12.3 H (1.3-7.7) k/uL Sodium 131 L (137-145) mmol/L Chloride 94 L 94 L (96-109) mmol/L Anion Gap 17.20 H (4.00-12.00) mmol/L BUN 33.6 H 53 H (9.0-27.0) mg/dL Creatinine 6.5 H 8.74 H* (0.6-1.5) mg/dL Est GFR (CKD-EPI) 8 L (>=60) BUN/Creatinine Ratio 5.17 L (12.00-20.00) Ratio Glucose 73 L (74-99) mg/dL Calcium 8.1 L 7.7 L (8.7-10.3) mg/dL Assessment and Plan (1) Intra-abdominal abscess Current Visit: Yes Status: Acute Code(s): K65.1 - PERITONEAL ABSCESS SNOMED Code(s): 04763059 (2) Diverticulitis of large intestine with complication Current Visit: Yes Status: Acute Code(s): K57.32 - DVTRCLI OF LG INT W/O PERFORATION OR ABSCESS W/O BLEEDING SNOMED Code(s): 226765762 Plan: 1patient presented hospital abdominal pain cloudy peritoneal fluid did have a significant elevated white in the peritoneal fluid likely secondary to PD catheter associated peritonitis patient did not have any evidence of abdominal infection at the site of insertion of the PD catheter patient also have evidence of ileus on the CT may be contributing some of her abdominal pain, patient did have a small bowel follow-through, did show delayed transit of contrast through the bowel with no evidence of small bowel obstruction 2-patient is status post laparoscopic lysis of adhesion removal of the dialysis catheter and drainage of the abscess abdominal cultures grew bacteroids species 3patient did have evidence of perforated sigmoid colitis status post sigmoid colectomy and diverting colostomy along with drainage of the abscess cultures Are so far negative. 4patient has shown some clinical improvement is afebrile and white count is trending down to 14,000 today patient predominantly grew bacteroids species did in this hospital stay and did grew E. coli in the outpatient setting which was sensitive pathogen, we will recommend a ten-day course of oral Ceftin and Flagyl and a close outpatient follow-up discussed with admitting team working on discharge Dictation was produced using [employer] dictation software. please excuse any grammatical, word or spelling errors. Time with Patient: Less than 30
[2022-11-23] MEDS ORDERED: hydrALAZINE HCL 25 MG TAB PO SCH (16:00)
--- NOTE | 2022-11-24 20:04 | P.DS ---
Providers Date of admission: 11/02/22 13:08 Attending physician: Cassia Valentin MD Consults: 11/02/22 13:17 Consult Physician Urgent Consulting Provider: Joanna Blackburn Consult Reason/Comments: SBO Do you want consulting provider notified?: Yes Consult Physician Urgent Consulting Provider: Analisa Cruz Consult Reason/Comments: Peritoneal dialysis patient Do you want consulting provider notified?: Yes 11/03/22 11:17 Consult Physician Routine Consulting Provider: Jarred Solomon Consult Reason/Comments: PD peritonitis Do you want consulting provider notified?: Yes 11/06/22 10:36 Consult Physician Stat Consulting Provider: Cm Munguia Consult Reason/Comments: perma HD cath Do you want consulting provider notified?: Yes 11/12/22 19:24 Consult Physician Urgent Consulting Provider: Montez Delgado Consult Reason/Comments: ICU management Do you want consulting provider notified?: Yes Primary care physician: Alia Keita Hospital Course: Final Diagnosis Fecal peritonitis and sepsis due to perforated sigmoid diverticulitis Small bowel obstruction with sigmoid colectomy and ostomy formation Personal dialysis catheter associated peritonitis with removal of PD catheter Leukocytosis improving overall. 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 Patient is to continue hemodialysis Saturday on discharge. Patient is a chair time. Patient has a chair time set up for [facility] for [facility] at 11 am. First outpatient hemodialysis session to be this upcoming Saturday. Infectious disease recommending a course of antibiotics on discharge patient has been continued on oral Flagyl for 10 days as well as oral Ceftin for 10 days. Additionally hydralazine 3 times a day has been added for increased blood pressure control. Nephrology recommending to continue on Aranesp subcu injections every 7 days. Patient to clean incision twice a day with antibacterial soap and hydrogen peroxide. Cover incision with 4 x 4 gauze. Cassandra ent to follow-up with Gen. surgery has appointment made for December 04 at 4 PM. Patient to follow up with infectious disease in one week. Patient is given scripts to repeat her blood work with dialysis on her next scheduled session of November 26. Hospital Course Patient is a 42-year-old female, history of hypertension, seizure disorder, chronic kidney disease/dialysis who presents to the emergency department for abdominal pain. She receives peritoneal dialysis every 6 hours and was diagnosed with peritonitis 2 days ago by the individual who manages her peritoneal dialysis. She was started on vancomycin and a cephalosporin antibiotic that she cannot recall the name of. She been on antibiotics for 2 days. She puts the medications in her dialysis bags. States that she continues to have abdominal pain despite the antibiotics. Reports that she has not had a bowel movement in 2 days, and prior to that she only had runny stool. Also reports ongoing nausea and vomiting and feels dehydrated. Denies any fevers, chills, sore throat, cough, dyspnea, chest pain, palpitations, abdominal pain, nausea, vomiting, diarrhea, back pain, or headaches. Initial blood work reveals white count of 8.1, BUN/creatinine of 52/12.0, consistent with end-stage renal disease, lactic acid levels of 1.5. Computed tomography scan of the abdomen and pelvis obtained revealing a small bowel obstruction. She does also have moderate abdominopelvic ascites and enteritis. Patient admitted to medicine for further management of small bowel obstruction and hyponatremia. Consult placed for general surgery regarding the small bowel obstruction. Consult was also placed for nephrology given that she is a peritoneal dialysis patient. On November 07 patient underwent robotic-assisted laparoscopic extensive lysis of adhesions, removal of the peritoneal dialysis catheter and placement of a Justin-Barnard drain in the left lower quadrant with abdominal lavage. Patient will be transitioned over to hemodialysis by the forestry conservation worker. Peritoneal fluid culture from the surgery reveals bacteroids and anaerobic gram-negative bacilli. The catheter tip culture was final and negative. Culture from the peritoneal dialysis catheter site does show bacteroids as well as anaerobic gram-negative bacilli. White count has been steadily increasing since surgery and peaked at 35.5 which prompted surgical reevaluation and patient went back to the OR on 11/13/2022 due to fecal peritonitis from perforated sigmoid diverticulitis for exploratory laparotomy with lysis of adhesions and a sigmoid colectomy with descending ostomy placement and removal of the left sided FRANCESCA drain with and placement of a right-sided FRANCESCA drain was closed with a wound VAC system prerenal. Infectious disease has followed this patient and patient was receiving a course of IV antibiotics while in the hospital and was transitioned to oral on discharge. White count had improved down to 14.6. Patient is now reporting mild abdominal pain and is making adequate stool from ostomy. She does not make much urine. Not having any chest pain, not having any shortness of breath. Her lungs are clear, S1 S2 auscultated regular rate and rhythm, abdomen is soft and nontender. Her focal neurological exam is negative. Ostomy appliance in tact. Patient has normaoctive bowel sounds, tolerating a regular diet. Patient is hemodynamically stable. Patient will be discharged home with above mentioned recommendations. Please see medication reconciliation for a list of current medication. Thank you for allowing us to participate in the care of this patient. The impression and plan of care has been dictated by Roberta Miguel, Nurse Practitioner as directed. Dr. Yuki MD I have performed a history and physical examination and medical decision making of this patient, discussed the same with the dictator, and agree with the dictators assessment and plan as written, documented as a scribe. Based on total visit time, I have performed more than 50% of this visit. Patient Condition at Discharge: Fair Plan - Discharge Summary Discharge Rx Participant: No New Discharge Prescriptions: New metroNIDAZOLE [Flagyl] 500 mg PO TID 10 Days #30 tab Ondansetron [Zofran] 4 mg PO Q8HR PRN #20 tab PRN Reason: Nausea And Vomiting hydrALAZINE HCL [Apresoline] 50 mg PO TID #90 tab Darbepoetin Shahram [Aranesp] 100 mcg SQ Q7D #4 each Simethicone Chew [Mylicon Chew] 160 mg PO TID #40 tab Famotidine [Pepcid] 20 mg PO DAILY #30 tablet Sodium Bicarbonate Tab 650 mg PO BID #60 tab cefUROXime axetiL [Ceftin] 500 mg PO BID 10 Days #20 tab Continue Metoprolol Tartrate [Lopressor] 50 mg PO BID lisinopriL [Zestril] 20 mg PO BID Velphoro 500mg Chewable Tab 500 mg PO DAILY PRN PRN Reason: snacks Renaplex-D 1 tab PO DAILY Velphoro 500mg Chewable Tab 1,000 mg PO TID-W/MEALS Discharge Medication List Metoprolol Tartrate [Lopressor] 50 mg PO BID 11/11/21 [History] Renaplex-D 1 tab PO DAILY 11/11/21 [History] Velphoro 500mg Chewable Tab 1,000 mg PO TID-W/MEALS 11/02/22 [History] Velphoro 500mg Chewable Tab 500 mg PO DAILY PRN 11/02/22 [History] lisinopriL [Zestril] 20 mg PO BID 11/02/22 [History] Darbepoetin Shahram [Aranesp] 100 mcg SQ Q7D #4 each 11/23/22 [Rx] Famotidine [Pepcid] 20 mg PO DAILY #30 tablet 11/23/22 [Rx] Ondansetron [Zofran] 4 mg PO Q8HR PRN #20 tab 11/23/22 [Rx] Simethicone Chew [Mylicon Chew] 160 mg PO TID #40 tab 11/23/22 [Rx] Sodium Bicarbonate Tab 650 mg PO BID #60 tab 11/23/22 [Rx] cefUROXime axetiL [Ceftin] 500 mg PO BID 10 Days #20 tab 11/23/22 [Rx] hydrALAZINE HCL [Apresoline] 50 mg PO TID #90 tab 11/23/22 [Rx] metroNIDAZOLE [Flagyl] 500 mg PO TID 10 Days #30 tab 11/23/22 [Rx] Follow up Appointment(s)/Referral(s[facility] - 11/23/22 11:00 am (Chair time for hemodialysis every Saturday, Saturday, and Saturday at 11:00a.m. ) Joanna Blackburn MD [STAFF PHYSICIAN] - 12/04/22 4:00 pm [facility], [NON-STAFF] - 1 Week ([facility] will call you to arrange a visit) Alia Keita MD [Primary Care Provider] - 1-2 days (Office is closed at time of discharge. Please call for follow-up appointment.) Giovanni Avelar DO [STAFF PHYSICIAN] - 1 Week (Dr Avelar will see patient at dialysis center.) Jarred Solomon MD [STAFF PHYSICIAN] - 1 Week (Office closed at time of discharge. Please call for follow-up appointment.) Ambulatory/Diagnostic Orders: Basic Metabolic Panel [LAB.AMB] Time Frame: 3 Days, Location: None Selected Complete Blood Count w/diff [LAB.AMB] Time Frame: 3 Days, Location: None Selected Magnesium [LAB.AMB] Time Frame: 3 Days, Location: None Selected Patient Instructions/Handouts: Colostomy Care (DC), Hemodialysis (DC) Activity/Diet/Wound Care/Special Instructions: Clean incision twice a day with antibacterial soap and hydrogen peroxide. Cover incision with 4 x 4 gauze Continue oral antibiotics for 10 days Follow up with Dr Solomon in 1 week Discharge Disposition: HOME WITH HOME HEALTH SERVICES
== END 2022-11-23 18:54 | disposition home health service (06) | DRG 444 ==
LOC: EC 10:52 → 4SSUR 13:08 → 2SICU 11-13 05:32 → 4SSUR 11-17 02:28
PROVIDERS: ADMIT Internal Medicine; ATTEND Internal Medicine
PROC: 3E1M39Z Irrigation of Peritoneal Cavity using Dialysate, Percutaneous Approach (ICD-10-PCS; 2022-11-02)
PROC: 02HV33Z Insertion of Infusion Device into Superior Vena Cava, Percutaneous Approach (ICD-10-PCS; 2022-11-06)
PROC: 5A1D70Z Performance of Urinary Filtration, Intermittent, Less than 6 Hours Per Day (ICD-10-PCS; 2022-11-06)
PROC: 0JH63XZ Insertion of Tunneled Vascular Access Device into Chest Subcutaneous Tissue and Fascia, Percutaneous Approach (ICD-10-PCS; 2022-11-06 15:59)
PROC: 8E0W4CZ Robotic Assisted Procedure of Trunk Region, Percutaneous Endoscopic Approach (ICD-10-PCS; 2022-11-07)
PROC: 3E1M48Z Irrigation of Peritoneal Cavity using Irrigating Substance, Percutaneous Endoscopic Approach (ICD-10-PCS; 2022-11-07)
PROC: 0WPG43Z Removal of Infusion Device from Peritoneal Cavity, Percutaneous Endoscopic Approach (ICD-10-PCS; principal; 2022-11-07 11:15)
PROC: 0DN84ZZ Release Small Intestine, Percutaneous Endoscopic Approach (ICD-10-PCS; 2022-11-07 11:15)
PROC: 30233N1 Transfusion of Nonautologous Red Blood Cells into Peripheral Vein, Percutaneous Approach (ICD-10-PCS; 2022-11-09)
PROC: 3E1M48Z Irrigation of Peritoneal Cavity using Irrigating Substance, Percutaneous Endoscopic Approach (ICD-10-PCS; 2022-11-13)
PROC: 0WJG0ZZ Inspection of Peritoneal Cavity, Open Approach (ICD-10-PCS; 2022-11-13)
PROC: 0DTN4ZZ Resection of Sigmoid Colon, Percutaneous Endoscopic Approach (ICD-10-PCS; 2022-11-13)
PROC: 0W9G00Z Drainage of Peritoneal Cavity with Drainage Device, Open Approach (ICD-10-PCS; 2022-11-13)
PROC: 0DTM0ZZ Resection of Descending Colon, Open Approach (ICD-10-PCS; 2022-11-13)
PROC: 0D1N0Z4 Bypass Sigmoid Colon to Cutaneous, Open Approach (ICD-10-PCS; 2022-11-13)
DX: T85.71XA Infection and inflammatory reaction due to peritoneal dialysis catheter, initial encounter (principal); A41.89 Other specified sepsis; K65.1 Peritoneal abscess; K65.2 Spontaneous bacterial peritonitis; K56.50 Intestinal adhesions [bands], unspecified as to partial versus complete obstruction; T85.611A Breakdown (mechanical) of intraperitoneal dialysis catheter, initial encounter; K56.7 Ileus, unspecified; I13.11 Hypertensive heart and chronic kidney disease without heart failure, with stage 5 chronic kidney disease, or end stage renal disease; N18.6 End stage renal disease; E66.01 Morbid (severe) obesity due to excess calories; G40.909 Epilepsy, unspecified, not intractable, without status epilepticus; Z99.2 Dependence on renal dialysis; Z76.82 Awaiting organ transplant status; R18.8 Other ascites; E87.20 Acidosis, unspecified; E87.1 Hypo-osmolality and hyponatremia; K57.20 Diverticulitis of large intestine with perforation and abscess without bleeding; D63.1 Anemia in chronic kidney disease; N80.C11 Endometriosis of the anterior abdominal wall, fascia and muscular layers; I95.9 Hypotension, unspecified; E86.0 Dehydration; K52.9 Noninfective gastroenteritis and colitis, unspecified; E87.5 Hyperkalemia; F41.9 Anxiety disorder, unspecified; G93.2 Benign intracranial hypertension; M10.9 Gout, unspecified; N83.201 Unspecified ovarian cyst, right side; N26.9 Renal sclerosis, unspecified; E87.6 Hypokalemia; B96.89 Other specified bacterial agents as the cause of diseases classified elsewhere; M89.8X9 Other specified disorders of bone, unspecified site; Y84.1 Kidney dialysis as the cause of abnormal reaction of the patient, or of later complication, without mention of misadventure at the time of the procedure; Y81.2 Prosthetic and other implants, materials and accessory general- and plastic-surgery devices associated with adverse incidents; Z68.36 Body mass index [BMI] 36.0-36.9, adult; Z88.8 Allergy status to other drugs, medicaments and biological substances; Z88.7 Allergy status to serum and vaccine; Z88.1 Allergy status to other antibiotic agents; Z87.891 Personal history of nicotine dependence; Z79.899 Other long term (current) drug therapy; Z28.310 Unvaccinated for COVID-19; Z98.891 History of uterine scar from previous surgery
CPT/HCPCS: 36410; 36415; 36558; 74176; 74177; 74250; 76937; 77001; 80048; 80053; 80202; 81025; 82150; 83605; 83690; 83735; 84100; 84703; 85025; 85027; 86140; 86706; 86850; 86900; 86901; 86920; 87040; 87070; 87075; 87205; 87340; 88108; 88305; 88307; 89050; 90935; 93005; 94760; 96361; 96374; 96375; 99285

== ENCOUNTER 2022-11-30 10:41 | Inpatient (IN) | payer OTHER ==
[2022-11-30] MEDS ORDERED: MORPHINE SULFATE 4 MG/ML SYRINGE IVP STA (11:40)
[2022-11-30] MEDS ORDERED: SODIUM CHLORIDE 0.9% 500 ML 500 ML IV STA (11:41)
[2022-11-30 12:11] LABS: Basophils % (A) 0 %; Eosinophils # (A) 0.3 k/uL (0-0.7); Eosinophils % (A) 1 %; HCT 21.9 % (34.0-46.0); HGB 7.4 gm/dL (11.4-16.0); Hypochromasia Slight; Lymphocytes # (A) 1.2 k/uL (1.0-4.8); Lymphocytes % (A) 6 %; MCH 33.3 pg (25.0-35.0); MCHC 33.7 g/dL (31.0-37.0); Macrocytosis Slight; Mean Platelet Volume 7.6; Monocytes # (A) 0.5 k/uL (0-1.0); Monocytes % (A) 3 %; Neutrophils # (A) 18.1 k/uL (1.3-7.7); Neutrophils % (A) 89 %; Platelet Count 395 k/uL (150-450); RBC 2.21 m/uL (3.80-5.40); RDW 15.3 % (11.5-15.5); WBC 20.2 k/uL (3.8-10.6)
[2022-11-30 12:21] LABS: ALT 13 U/L (4-34); AST 20 U/L (14-36); African American GFR (CKD) 8 (>60 ml/min/1.73 sqM); Albumin 2.8 g/dL (3.5-5.0); Alkaline Phosphatase 73 U/L (38-126); Anion Gap 13 mmol/L; Blood Urea Nitrogen 37 mg/dL (7-17); Calcium 8.6 mg/dL (8.4-10.2); Carbon Dioxide 26 mmol/L (22-30); Chloride 88 mmol/L (98-107); Glucose 106 mg/dL (74-99); Non-African American GFR(CKD) 7 (>60 ml/min/1.73 sqM); Potassium 4.5 mmol/L (3.5-5.1); Sodium 127 mmol/L (137-145); Total Bilirubin 0.6 mg/dL (0.2-1.3)
[2022-11-30 12:37] LABS: Prothrombin Time 10.9 sec (9.0-12.0)
--- NOTE | 2022-11-30 12:53 | ED ---
General Adult HPI - General Chief complaint: Recheck/Abnormal Lab/Rx Stated complaint: abd pain Time Seen by Provider: 11/30/22 11:12 Source: patient, family Mode of arrival: wheelchair Limitations: no limitations - History of Present Illness Initial comments: 42-year-old female with a past medical history significant for end-stage renal disease on hemodialysis presents to the ED for chief complaint of abdominal pain. Patient previously discharged from this facility on 11/23/22. Patient initially at this time presented for abdominal pain. Was on peritoneal dialysis at this time. Found to have peritonitis. Additionally, during her stay here had a perforation of sigmoid diverticulitis and patient is status post sigmoid colectomy and ostomy. Additionally has a right FRANCESCA drain in place. Was placed on Ceftin at discharge for 10 days and was supposed to follow up with Dr. Solomon and Dr. Blackburn on an outpatient basis. However, per patient's started to experience abdominal pain 2 days ago. Also notes a change in drainage at her FRANCESCA drain. States that drainage has become purulent and has become malodorous. Denies fever. Denies chest pain or shortness of breath. No other complaints. Last dialysis was on 11/28. Is due for dialysis today. - Related Data Home Medications Medication Instructions Recorded Confirmed Metoprolol Tartrate [Lopressor] 50 mg PO BID 11/11/21 11/02/22 Renaplex-D 1 tab PO DAILY 11/11/21 11/02/22 Velphoro 500mg Chewable Tab 1,000 mg PO TID-W/MEALS 11/02/22 11/02/22 Velphoro 500mg Chewable Tab 500 mg PO DAILY PRN 11/02/22 11/02/22 lisinopriL [Zestril] 20 mg PO BID 11/02/22 11/02/22 Previous Rx's Medication Instructions Recorded Darbepoetin Shahram [Aranesp] 100 mcg SQ Q7D #4 each 11/23/22 Famotidine [Pepcid] 20 mg PO DAILY #30 tablet 11/23/22 Ondansetron [Zofran] 4 mg PO Q8HR PRN #20 tab 11/23/22 Simethicone Chew [Mylicon Chew] 160 mg PO TID #40 tab 11/23/22 Sodium Bicarbonate Tab 650 mg PO BID #60 tab 11/23/22 cefUROXime axetiL [Ceftin] 500 mg PO BID 10 Days #20 tab 11/23/22 hydrALAZINE HCL [Apresoline] 50 mg PO TID #90 tab 11/23/22 metroNIDAZOLE [Flagyl] 500 mg PO TID 10 Days #30 tab 11/23/22 Allergies Allergy/AdvReac Type Severity Reaction Status Date / Time iron Allergy Severe Nausea & Verified 11/30/22 11:00 Vomiting & Diarrhea Pertussis Vaccines Allergy Unknown Verified 11/30/22 11:00 ciprofloxacin [From Cipro] AdvReac UNCONTROLLABLE Verified 11/30/22 11:00 EMOTIONS PER PT Review of Systems ROS Statement: Those systems with pertinent positive or pertinent negative responses have been documented in the HPI. ROS Other: All systems not noted in ROS Statement are negative. 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., SWOLLEN OPTICAL NERVE & RETINA , STATES VISION BLURRED AT TIMES., PSEUDO TUMOR BRAIN., HX GOUT, ANEMIA, KIDNEY FAILURE.-HAS DIALYSIS CATHETER AND RECEIVING HEMODI ALYSIS -SAT-SAT. HX FSGS (FOCAL SEGMENTAL GLOMERULOSCLEROSIS) History of Any Multi-Drug Resistant Organisms: None Reported Past Surgical History: Section Additional Past Surgical History / Comment(s): PD catheter 01/27/2019, abdominal surgeries in october 2022 Past Anesthesia/Blood Transfusion Reactions: No Reported Reaction Past Psychological History: Anxiety Smoking Status: Former smoker Past Alcohol Use History: Occasional Past Drug Use History: Marijuana - Past Family History Father Family Medical History: Myocardial Infarction (GA) Additional Family Medical History / Comment(s): FATHER AT AGE 35 OF MASSIVE HEART ATTACK Mother Family Medical History: Cancer, Deep Vein Thrombosis (DVT) Additional Family Medical History / Comment(s): SKIN CANCER General Exam Limitations: no limitations General appearance: alert, in no apparent distress Neck exam: Present: normal inspection Respiratory exam: Present: normal lung sounds bilaterally Cardiovascular Exam: Present: regular rate, normal rhythm GI/Abdominal exam: Present: soft (Incision sites are clean dry and intact with no surrounding warmth erythema. Ostomy covered with feces however appears pink, patent, and productive. FRANCESCA drain on the right side of the abdomen with purulent drainage.) Neurological exam: Present: alert, oriented X3 Skin exam: Present: warm, dry Course Vital Signs 11/30/22 11/30/22 11/30/22 10:55 11:09 11:11 Temperature 98.6 F Pulse Rate 86 77 Respiratory 18 18 Rate Blood Pressure 150/91 151/98 O2 Sat by Pulse 98 99 98 Oximetry 11/30/22 11/30/22 11/30/22 11:20 11:30 12:00 Temperature Pulse Rate Respiratory Rate Blood Pressure 151/98 161/92 159/99 O2 Sat by Pulse 99 99 100 Oximetry 11/30/22 11/30/22 11/30/22 12:30 13:00 13:30 Temperature Pulse Rate 80 76 79 Respiratory 23 18 18 Rate Blood Pressure 179/103 166/96 165/99 O2 Sat by Pulse 99 98 100 Oximetry 11/30/22 14:00 Temperature Pulse Rate 77 Respiratory 18 Rate Blood Pressure 174/99 O2 Sat by Pulse 100 Oximetry Medical Decision Making - Medical Decision Making Was pt. sent in by a medical professional or institution (, PA, [employer]EE ANDROID DEVELOPER, urgent care, hospital, or alf...) When possible be specific @ -No Did you speak to anyone other than the patient for history (EMS, parent, family, police, friend...)? What history was obtained from this source @ -No Did you review nursing and triage notes (agree or disagree)? Why? @ -I reviewed and agree with nursing and triage notes Were old charts reviewed (outside hosp., previous admission, EMS record, old EKG, old radiological studies, urgent care reports/EKG's, alf records)? Report findings @ -Prior admission reviewed. For further details please see HPI. Differential Diagnosis (chest pain, altered mental status, abdominal pain women, abdominal pain men, vaginal bleeding, weakness, fever, dyspnea, syncope, headache, dizziness, GI bleed, back pain, seizure, CVA, palpatations, mental health, musculoskeletal)? @ -Differential Abdominal Pain Women: Appendicitis, Cholecystitis, diverticulosis, ischemic bowel, pancreatitis, hepatitis, UTI, gastroenteritis, AAA, incarcerated hernia, bowel obstruction, constipation, inflammatory bowel, hepatitis, peptic ulcer disease, splenic infarction, perforated viscus, vulvitis, ovarian torsion, PID, kidney stone, placenta abruption, this is not meant to be an all-inclusive list EKG interpreted by me (3pts min.). @ -As above X-rays interpreted by me (1pt min.). @ -None done CT interpreted by me (1pt min.). @ -None done U/S interpreted by me (1pt. min.). @ -None done What testing was considered but not performed or refused? (CT, X-rays, U/S, labs)? Why? @ -None What meds were considered but not given or refused? Why? @ -None Did you discuss the management of the patient with other professionals (professionals i.e. DrAkhil, PA, [employer]EE ANDROID DEVELOPER, lab, RT, psych nurse, social media coordinator, online editor, teacher, national insurance officer, classification case manager)? Give summary @ -Case discussed with Dr. Terrazas of surgery who advised admission with co nsults to infectious disease and nephrology. Also requests for CT with oral contrast. Was smoking cessation discussed for >3mins.? @ -No Was critical care preformed (if so, how long)? @ -No Were there social determinants of health that impacted care today? How? (Homelessness, low income, unemployed, alcoholism, drug addiction, transportation, low edu. Level, literacy, decrease access to med. care, half-way, rehab)? @ -No Was there de-escalation of care discussed even if they declined (Discuss DNR or withdrawal of care, Hospice)? DNR status @ -No What co-morbidities impacted this encounter? (DM, HTN, Smoking, COPD, CAD, Cancer, CVA, ARF, Chemo, Hep., AIDS, mental health diagnosis, sleep apnea, morbid obesity)? @ -None Was patient admitted / discharged? Hospital course, mention meds given and route, prescriptions, significant lab abnormalities, going to OR and other pertinent info. @ -Admission. Laboratory studies significant for an elevated white count of 20.2, anemia with hemoglobin of 7.4, hyponatremia with sodium of 127, kidney injury with BUN at37 and creatinine at 7.11. Patient will be admitted with consults to infectious disease and nephrology. At this time, CT with contrast pending patient is due for dialysis. Cultures obtained from drain. Blood cultures obtained as well. Case will be discussed with nephrology. Discussed plan of care with patient and family who are in agreement. Undiagnosed new problem with uncertain prognosis? @ -No Drug Therapy requiring intensive monitoring for toxicity (Heparin, Nitro, Insulin, Cardizem)? @ -No Were any procedures done? @ -No Diagnosis/symptom? @ -Abdominal pain Acute, or Chronic, or Acute on Chronic? @ -Acute Uncomplicated (without systemic symptoms) or Complicated (systemic symptoms)? @ -Uncomplicated Side effects of treatment? @ -No Exacerbation, Progression, or Severe Exacerbation? @ -No Poses a threat to life or bodily function? How? (Chest pain, [place], GA, pneumonia, PE, COPD, DKA, ARF, appy, cholecystitis, CVA, Diverticulitis, Homicidal, Suicidal, threat to staff... and all critical care pts) @ -No - Lab Data Result diagrams: 11/30/22 11:58 11/30/22 11:58 Lab Results 11/30/22 11/30/22 11/30/22 Range/Units 11:58 11:58 11:58 WBC 20.2 H (3.8-10.6) k/uL RBC 2.21 L (3.80-5.40) m/uL Hgb 7.4 L (11.4-16.0) gm/dL Hct 21.9 L (34.0-46.0) % MCV 99.0 (80.0-100.0) fL MCH 33.3 (25.0-35.0) pg MCHC 33.7 (31.0-37.0) g/dL RDW 15.3 (11.5-15.5) % Plt Count 395 (150-450) k/uL MPV 7.6 Neutrophils % 89 % Lymphocytes % 6 % Monocytes % 3 % Eosinophils % 1 % Basophils % 0 % Neutrophils # 18.1 H (1.3-7.7) k/uL Lymphocytes # 1.2 (1.0-4.8) k/uL Monocytes # 0.5 (0-1.0) k/uL Eosinophils # 0.3 (0-0.7) k/uL Basophils # 0.0 (0-0.2) k/uL Hypochromasia Slight Macrocytosis Slight PT 10.9 (9.0-12.0) sec INR 1.0 (<1.2) APTT 27.0 (22.0-30.0) sec Sodium 127 L (137-145) mmol/L Potassium 4.5 (3.5-5.1) mmol/L Chloride 88 L (98-107) mmol/L Carbon Dioxide 26 (22-30) mmol/L Anion Gap 13 mmol/L BUN 37 H (7-17) mg/dL Creatinine 7.11 H* (0.52-1.04) mg/dL Est GFR (CKD-EPI)AfAm 8 (>60 ml/min/1.73 sqM) Est GFR (CKD-EPI)NonAf 7 (>60 ml/min/1.73 sqM) Glucose 106 H (74-99) mg/dL Plasma Lactic Acid Jame (0.7-2.0) mmol/L Calcium 8.6 (8.4-10.2) mg/dL Total Bilirubin 0.6 (0.2-1.3) mg/dL AST 20 (14-36) U/L ALT 13 (4-34) U/L Alkaline Phosphatase 73 (38-126) U/L Total Protein 6.0 L (6.3-8.2) g/dL Albumin 2.8 L (3.5-5.0) g/dL 11/30/22 Range/Units 11:58 WBC (3.8-10.6) k/uL RBC (3.80-5.40) m/uL Hgb (11.4-16.0) gm/dL Hct (34.0-46.0) % MCV (80.0-100.0) fL MCH (25.0-35.0) pg MCHC (31.0-37.0) g/dL RDW (11.5-15.5) % Plt Count (150-450) k/uL MPV Neutrophils % % Lymphocytes % % Monocytes % % Eosinophils % % Basophils % % Neutrophils # (1.3-7.7) k/uL Lymphocytes # (1.0-4.8) k/uL Monocytes # (0-1.0) k/uL Eosinophils # (0-0.7) k/uL Basophils # (0-0.2) k/uL Hypochromasia Macrocytosis PT (9.0-12.0) sec INR (<1.2) APTT (22.0-30.0) sec Sodium (137-145) mmol/L Potassium (3.5-5.1) mmol/L Chloride (98-107) mmol/L Carbon Dioxide (22-30) mmol/L Anion Gap mmol/L BUN (7-17) mg/dL Creatinine (0.52-1.04) mg/dL Est GFR (CKD-EPI)AfAm (>60 ml/min/1.73 sqM) Est GFR (CKD-EPI)NonAf (>60 ml/min/1.73 sqM) Glucose (74-99) mg/dL Plasma Lactic Acid Jame 0.9 (0.7-2.0) mmol/L Calcium (8.4-10.2) mg/dL Total Bilirubin (0.2-1.3) mg/dL AST (14-36) U/L ALT (4-34) U/L Alkaline Phosphatase (38-126) U/L Total Protein (6.3-8.2) g/dL Albumin (3.5-5.0) g/dL - EKG Data EKG Comments: EKG shows a sinus rhythm at [address] or T-wave changes. MI 161, QRS 97, QT/QTc 342/378. Disposition Clinical Impression: EMERSON (acute kidney injury), Leukocytosis, Anemia, Abdominal pain Disposition: ADMITTED IP TO THIS HOSP Referrals: Alia Keita MD [Primary Care Provider] - 1-2 days Time of Disposition: 12:45
[2022-11-30] MEDS ORDERED: NALOXONE 0.4 MG/ML 1 ML VIAL IV PRN (14:21)
[2022-11-30] MEDS ORDERED: ACETAMINOPHEN TAB 325 MG TAB PO PRN (14:21)
[2022-11-30] MEDS: AMPICILLIN-SULBACTAM 3 GM in SODIUM CHLORIDE 0.9% 100 ML IVPB ONE ×2 (14:25→14:28)
[2022-11-30] MEDS ORDERED: IOPAMIDOL CONTRAST (ORAL USE) VIAL PO PRN (14:26)
[2022-11-30] MEDS: SODIUM CHLORIDE 0.9% 1,000 ML IV SCH (14:28)
[2022-11-30] MEDS ORDERED: AMPICILLIN-SULBACTAM 3 GM in SODIUM CHLORIDE 0.9% 50 ML IVPB SCH (14:30)
--- NOTE | 2022-11-30 17:30 | CT ---
EXAMINATION TYPE: CT abdomen pelvis w con DATE OF EXAM: 11/30/2022 COMPARISON: 11/11/2022 HISTORY: 42-year-old female Changes and increased odor to FRANCESCA drainage bag. New onset of right lower a bdomen pain and back pain. Pt stated she recently had ruptured diverticulitis. TECHNIQUE: Contiguous axial scanning of the abdomen and pelvis following administration of 100 ml Iso rosemarie 300 IV contrast. Delayed images through the kidneys and coronal/sagittal reconstructions perform ed. CT DLP: 1518.6 mGycm Automated exposure control for dose reduction was used. FINDINGS: A CVC catheter is at the inferior cavoatrial junction. Heart upper limits of normal in size. Patchy a telectasis posterior lung bases. Small amount of free intraperitoneal air below the right hemidiaphragm remains, likely due to patient 's recent surgery. Associated trace ascites is present. Portal venous system is patent. No biliary du ctal dilatation. Portal venous system is patent. Gallbladder is hydropic measuring 4.5 cm wide. Large noncalcified 4.8 cm stone is present within Adrenal glands, spleen, pancreas within normal limits. Generalized anasarca change. Midline post laparotomy change. Small fluid locules and fat stranding are present along the laparotomy site within the subcutaneous a dipose layer. Locules measure up to 1.9 cm, for example, axial image 94. There is edema and inflammatory thickening in the intra-abdominal fat just deep to the abdominal wall musculature and trace fluid on some images, for example, axial image 62. There is a subcapsular intraperitoneal abscess along the right flank at the inferior margin of the ri ght liver lobe measuring 6.6 x 1.5 x 5.2 cm. Atrophic bilateral kidneys with small cysts. Normal appendix. There is a left lower quadrant sigmoid colostomy. Colon is collapsed.. Right-sided pelvic drainage catheter. There is dense residual oral contrast material within the colla psed distal colon and rectum making visualization of the stapled off colonic stump limited. Unable to exclude some leakage in this area given the fluid density. Unclear if this represents some fluid-monique led small bowel making low in the pelvis, refer to axial image 86. Prominent fat stranding and presac ral edema is present in this region. Bladder collapsed. Uterus anteverted. Suspected 3.2 cm dominant follicle or functional cyst of right ovary. Left ovary not clearly delineated. No osseous destructive process. IMPRESSION: 1. POST LAPAROTOMY CHANGES. THERE IS PROMINENT FAT STRANDING HERE THAT COULD REPRESENT POSTOPERATIVE INFLAMMATION VERSUS CELLULITIS. SMALL FLUID LOCULES SIMILARLY COULD REPRESENT SMALL SEROMAS ALONG THE INCISION SITE VERSUS SMALL INFECTIVE LOCULES OF FLUID MEASURING UP TO 1.9 CM (FOR EXAMPLE, AXIAL HITESH GE 94). 2. THERE IS A SMALL RESIDUAL PERITONEAL ABSCESS ALONG THE RIGHT FLANK AT THE INFERIOR MARGIN OF THE R IGHT LIVER LOBE MEASURING 6.6 X 5.2 X 1.5 CM. 3. RIGHT-SIDED PELVIC DRAIN IS PRESENT. THERE HAS BEEN INTERVAL LEFT LOWER QUADRANT SIGMOID COLOSTOMY AND PAREDES'S POUCH. GIVEN THE DENSE RESIDUAL ORAL CONTRAST THAT REMAINS IN THE DISTAL COLON AND THE INFLAMMATORY CHANGES HERE, CLEAR VISUALIZATION IS LIMITED. HETEROGENEOUS FLUID AND SOME AIR IS PRESE NT NEAR THE EXPECTED LOCATION OF THE STUMP. UNCLEAR IF THIS REPRESENTS PHLEGMONOUS CHANGE AND INFECTI OUS FLUID VERSUS LOW-LYING SMALL BOWEL LOOPS. 4. THERE IS A SMALL FOCUS OF FREE AIR BELOW THE RIGHT HEMIDIAPHRAGM POSSIBLY ON A POSTSURGICAL BASIS. 5. GENERALIZED ANASARCA CHANGE/THIRD SPACING.
[2022-11-30] MEDS: PIPERACILLIN-TAZOBACTAM 3.375 GM in SODIUM CHLORIDE 0.9% 100 ML IVPB SCH (17:49)
[2022-11-30] MEDS ORDERED: AMPICILLIN-SULBACTAM 3 GM in SODIUM CHLORIDE 0.9% 100 ML IVPB SCH (19:00)
--- NOTE | 2022-11-30 20:59 | P.CONS ---
History of Present Illness - Reason for Consult Consult date: 11/30/22 - History of Present Illness Patient is a 42-year-old female with a past medical history significant for end-stage renal disease was on peritoneal dialysis who was recently admitted to the hospital treated for PD catheter associated peritonitis outpatient culture positive for E. coli that was sensitive pathogen patient abdominal culture did grew Bacteroides patient is an concern for possible perforated bowel she was having more abdominal pain subsequent CT did shows evidence of perforated diverticulitis for the patient did have laparotomy drainage of abdominal abscess and did have a diverting colostomy abdominal culture positive for bacteroid species patient is patient was treated with IV antibiotic therapy subsequently stabilized and was discharged home on oral Ceftin and Flagyl for 10 days last Saturday patient apparently did well initially and overall output in the drainage catheter. Subsequently she noticed to having drainage restarting which was initially clear however over the last 2 days has b ecoming more purulent the patient also complaining of lower abdominal pain describing it to be sharp across lower abdominal area which comes and goes intensity 8-9 out of 10 with associated nausea but no vomiting with the symptoms the patient has been brought back to the on presentation to the hospital patient was afebrile she did have a white count of 20,000 with a left shift and been creatinine has been elevated liver exams are normal patient was started on Unasyn admitted to hospital infectious disease was consulted for further management of antibiotic therapy patient did have a CT abdominal pelvis completed report is currently pending at the time of evaluation 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., SWOLLEN OPTICAL NERVE & RETINA , STATES VISION BLURRED AT TIMES., PSEUDO TUMOR BRAIN., HX GOUT, ANEMIA, KIDNEY FAILURE.-HAS DIALYSIS CATHETER AND RECEIVING HEMODIALYSIS MO-SAT-SAT. HX FSGS (FOCAL SEGMENTAL GLOMERULOSCLEROSIS) History of Any Multi-Drug Resistant Organisms: None Reported Past Surgical History: Section Additional Past Surgical History / Comment(s): PD catheter 01/27/2019, abdominal surgeries in october 2022 Past Anesthesia/Blood Transfusion Reactions: No Reported Reaction Past Psychological History: Anxiety Smoking Status: Former smoker Past Alcohol Use History: Occasional Past Drug Use History: Marijuana - Past Family History Father Family Medical History: Myocardial Infarction ([place]) Additional Family Medical History / Comment(s): FATHER AT AGE 35 OF MASSIVE HEART ATTACK Mother Family Medical History: Cancer, Deep Vein Thrombosis (DVT) Additional Family Medical History / Comment(s): SKIN CANCER Medications and Allergies Home Medications Medication Instructions Recorded Confirmed Type Metoprolol Tartrate [Lopressor] 50 mg PO BID 11/11/21 11/30/22 History Renaplex-D 1 tab PO DAILY 11/11/21 11/30/22 History Velphoro 500mg Chewable Tab 1,000 mg PO TID-W/MEALS 11/02/22 11/30/22 History Velphoro 500mg Chewable Tab 500 mg PO DAILY PRN 11/02/22 11/30/22 History lisinopriL [Zestril] 20 mg PO BID 11/02/22 11/30/22 History Darbepoetin Shahram [Aranesp] 100 mcg SQ Q7D #4 each 11/23/22 11/30/22 Rx Famotidine [Pepcid] 20 mg PO DAILY #30 tablet 11/23/22 11/30/22 Rx Ondansetron [Zofran] 4 mg PO Q8HR PRN #20 tab 11/23/22 11/30/22 Rx Simethicone Chew [Mylicon Chew] 160 mg PO TID #40 tab 11/23/22 11/30/22 Rx Sodium Bicarbonate Tab 650 mg PO BID #60 tab 11/23/22 11/30/22 Rx cefUROXime axetiL [Ceftin] 500 mg PO BID 10 Days #20 tab 11/23/22 11/30/22 Rx hydrALAZINE HCL [Apresoline] 50 mg PO TID #90 tab 11/23/22 11/30/22 Rx metroNIDAZOLE [Flagyl] 500 mg PO TID 10 Days #30 tab 11/23/22 11/30/22 Rx tiZANidine HCL [Zanaflex] 4 mg PO HS 11/30/22 11/30/22 History Allergies Allergy/AdvReac Type Severity Reaction Status Date / Time Pertussis Vaccines Allergy Unknown Verified 11/30/22 16:54 iron AdvReac Severe Nausea & Verified 11/30/22 16:54 Vomiting & Diarrhea ciprofloxacin [From Cipro] AdvReac UNCONTROLLABLE Verified 11/30/22 16:54 EMOTIONS PER PT Physical Exam Vitals: Vital Signs Temp Pulse Resp BP Pulse Ox 11/30/22 14:30 83 30 H 169/92 100 11/30/22 14:00 77 18 174/99 100 11/30/22 13:30 79 18 165/99 100 11/30/22 13:00 76 18 166/96 98 11/30/22 12:30 80 23 179/103 99 11/30/22 12:00 159/99 100 11/30/22 11:30 161/92 99 11/30/22 11:20 151/98 99 11/30/22 11:11 98 11/30/22 11:09 77 18 151/98 99 11/30/22 10:55 98.6 F 86 18 150/91 98 Intake and Output 11/30/22 11/30/22 11/30/22 06:59 14:59 22:59 Other: Weight 88.451 kg Results CBC & Chem 7: 12/01/22 11:49 12/01/22 11:49 Labs: Abnormal Lab Results - Last 24 Hours (Table) 11/30/22 11/30/22 Range/Units 11:58 11:58 WBC 20.2 H (3.8-10.6) k/uL RBC 2.21 L (3.80-5.40) m/uL Hgb 7.4 L (11.4-16.0) gm/dL Hct 21.9 L (34.0-46.0) % Neutrophils # 18.1 H (1.3-7.7) k/uL Sodium 127 L (137-145) mmol/L Chloride 88 L (98-107) mmol/L BUN 37 H (7-17) mg/dL Creatinine 7.11 H* (0.52-1.04) mg/dL Glucose 106 H (74-99) mg/dL Total Protein 6.0 L (6.3-8.2) g/dL Albumin 2.8 L (3.5-5.0) g/dL Assessment and Plan Plan: 1patient presented to hospital with abdominal pain and more purulent drainage from the FRANCESCA drain drain high clinic suspicion for intra-abdominal abscess in this patient who did have a complicated history initially of PD catheter associated peritonitis subsequently did have a perforated diverticulitis and intra-abdominal abscess with bacteroids species failing outpatient or antibiotic therapy. 2we will wait for the CT abdominal pelvis report and if any evidence of abscess may consider CT-guided drainage versus open drainage depending upon location. 3discontinue Unasyn. 4we will start patient on Zosyn and Flagyl combination as the patient has predominantly grown bacteroids. Mother at the bedside multiple questions concern answered. We will follow on clinical condition and cultures to further adjust medication if needed Thank you for this consultation we will follow the patient along with you Dictation was produced using [email or web address] dictation software. please excuse any grammatical, word or spelling errors. Time with Patient: Greater than 30
[2022-11-30] MEDS: HYDROmorphone 0.5 MG/0.5 ML SYRINGE IVP PRN (22:57)
[2022-11-30] MEDS: metroNIDAZOLE-NS PMX 500 MG in SALINE 1 100ML.BAG IVPB SCH (23:00)
--- NOTE | 2022-12-01 01:38 | P.GSCN ---
History of Present Illness Consult date: 12/01/22 History of present illness: CHIEF COMPLAINT: Abdominal pain HISTORY OF PRESENT ILLNESS: The patient is a 42 year old female with end-stage liver disease, history of peritoneal dialysis who was recently discharged less than 1 week ago for perforated sigmoid diverticulitis with sepsis and descending colostomy. She had gone home however on oral antibiotics. She reports have been increased drainage from her FRANCESCA including change in color from clear to purulent. She presented to the emergency room with abnormal labs including need for dialysis. No surgeries consulted due to history of perforated diverticulitis and purulent drainage from FRANCESCA. Patient denies diarrhea. PAST MEDICAL HISTORY: See list and reviewed PAST SURGICAL HISTORY: See list and reviewed MEDICATIONS: See list and reviewed ALLERGIES: See list and reviewed SOCIAL HISTORY: See list and reviewed FAMILY HISTORY: See list and reviewed REVIEW OF ORGAN SYSTEMS: CONSTITUTIONAL: No fevers or chills. No recent weight loss. EYES: Denies any trouble with vision. No glasses. HEENT: No difficulties with hearing. No nosebleeds. No difficulty swallowing. RESPIRATORY: Denies pneumonia. Denies any troubles with breathing or dyspnea on exertion. CARDIOVASCULAR: Denies any chest pain, palpitations, or recent heart attacks. GASTROINTESTINAL: Denies fatty food intolerance. Denies change in bowel habits and gas bloat. GENITOURINARY: Denies any blood in urine or increased urinary frequency. NEUROLOGICAL: Denies any numbness or tingling along the distal extremities. No seizure disorders or headaches. MUSCULOSKELETAL: Denies any back pain, stiffness or joint arthritis. SKIN: No current skin cancer. No rash. PSYCHIATRIC: Denies current depression or suicidal thoughts. ENDOCRINE: Denies current thyroid disorders. Denies any blood sugar glucose intolerance. HEME/LYMPHATIC: Denies any lumps and bumps around the neck. No recent deep venous thrombosis. ALLERGY/IMMUNOLOGY: No immunoglobulin therapy. No immune deficiencies. BREAST: Denies current breast lumps, pain or nipple discharge. PHYSICAL EXAM: VITALS: Reviewed CONSTITUTIONAL: Well developed and in no acute distress. EYES: Conjuctivae without sclera icterus. Extraocular movements grossly intact. HEAD, EARS, NOSE, THROAT: Moist buccal mucosa. Head is atraumatic, normocephalic. Hears conversational speech. No nasal drainage. NECK: Supple. No JV distention. No thyroidomegaly. RESPIRATORY: Non-labored respirations and equal bilateral excursions. No gross wheezes. CARDIOVASCULAR: Palpable 2+ radial pulses. ABDOMEN: Midline incision and intact. Ostomy patent. FRANCESCA purulent. LYMPH: No neck lymphadenopathy. MUSCULOSKELETAL: No clubbing cyanosis or edema SKIN: Warm and well perfused with good skin turgor. NEUROLOGIC: Cranial nerves II through XII grossly intact. No focal or lateralizing signs. PSYCH: Appropriate affect. Alert and oriented to person, place and time. Displays appropriate insight. CLINCAL LABS: Reviewed. WBC over 20,000 IMAGING: Independently reviewed. CT of the abdomen pelvis and the palmar review demonstrates FRANCESCA care within the pelvis. Possible fluid collection. This is my independent interpretation. RADIOLOGY: Report reviewed. Pelvic fluid questionable abscess versus small bowel. RECORDS: previous old records reviewed ASSESSMENT: 1. Abdominal pain 2. Pelvic abscess 3. Dialysis dependent PLAN: 1. IV fluid hydration. 2. Recommend IV antibiotics 3. Continue FRANCESCA drain for pelvic abscess ADVANCE DIRECTIVE: Thank you for this kind consultation. 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., SWOLLEN OPTICAL NERVE & RETINA , STATES VISION BLURRED AT TIMES., PSEUDO TUMOR BRAIN., HX GOUT, ANEMIA, KIDNEY FAILURE.-HAS DIALYSIS CATHETER AND RECEIVING HEMODIALYSIS -SAT-SAT. HX FSGS (FOCAL SEGMENTAL GLOMERULOSCLEROSIS) History of Any Multi-Drug Resistant Organisms: None Reported Past Surgical History: Section Additional Past Surgical History / Comment(s): PD catheter 01/27/2019, abdominal surgeries in october 2022 Past Anesthesia/Blood Transfusion Reactions: No Reported Reaction Past Psychological History: Anxiety Smoking Status: Former smoker Past Alcohol Use History: Occasional Past Drug Use History: Marijuana - Past Family History Father Family Medical History: Myocardial Infarction ([place]) Additional Family Medical History / Comment(s): FATHER AT AGE 35 OF MASSIVE HEART ATTACK Mother Family Medical History: Cancer, Deep Vein Thrombosis (DVT) Additional Family Medical History / Comment(s): SKIN CANCER Medications and Allergies Home Medications Medication Instructions Recorded Confirmed Type Metoprolol Tartrate [Lopressor] 50 mg PO BID 11/11/21 11/30/22 History Renaplex-D 1 tab PO DAILY 11/11/21 11/30/22 History Velphoro 500mg Chewable Tab 1,000 mg PO TID-W/MEALS 11/02/22 11/30/22 History Velphoro 500mg Chewable Tab 500 mg PO DAILY PRN 11/02/22 11/30/22 History lisinopriL [Zestril] 20 mg PO BID 11/02/22 11/30/22 History Darbepoetin Shahram [Aranesp] 100 mcg SQ Q7D #4 each 11/23/22 11/30/22 Rx Famotidine [Pepcid] 20 mg PO DAILY #30 tablet 11/23/22 11/30/22 Rx Ondansetron [Zofran] 4 mg PO Q8HR PRN #20 tab 11/23/22 11/30/22 Rx Simethicone Chew [Mylicon Chew] 160 mg PO TID #40 tab 11/23/22 11/30/22 Rx Sodium Bicarbonate Tab 650 mg PO BID #60 tab 11/23/22 11/30/22 Rx cefUROXime axetiL [Ceftin] 500 mg PO BID 10 Days #20 tab 11/23/22 11/30/22 Rx hydrALAZINE HCL [Apresoline] 50 mg PO TID #90 tab 11/23/22 11/30/22 Rx metroNIDAZOLE [Flagyl] 500 mg PO TID 10 Days #30 tab 11/23/22 11/30/22 Rx tiZANidine HCL [Zanaflex] 4 mg PO HS 11/30/22 11/30/22 History Allergies Allergy/AdvReac Type Severity Reaction Status Date / Time Pertussis Vaccines Allergy Unknown Verified 11/30/22 16:54 iron AdvReac Severe Nausea & Verified 11/30/22 16:54 Vomiting & Diarrhea ciprofloxacin [From Cipro] AdvReac UNCONTROLLABLE Verified 11/30/22 16:54 EMOTIONS PER PT Surgical - Exam Vital Signs Temp Pulse Resp BP Pulse Ox 98.6 F 86 18 150/91 98 11/30/22 10:55 11/30/22 10:55 11/30/22 10:55 11/30/22 10:55 11/30/22 10:55 Results - Labs 11/30/22 11:58 11/30/22 11:58 Abnormal Lab Results - Last 24 Hours (Table) 11/30/22 11/30/22 Range/Units 11:58 11:58 WBC 20.2 H (3.8-10.6) k/uL RBC 2.21 L (3.80-5.40) m/uL Hgb 7.4 L (11.4-16.0) gm/dL Hct 21.9 L (34.0-46.0) % Neutrophils # 18.1 H (1.3-7.7) k/uL Sodium 127 L (137-145) mmol/L Chloride 88 L (98-107) mmol/L BUN 37 H (7-17) mg/dL Creatinine 7.11 H* (0.52-1.04) mg/dL Glucose 106 H (74-99) mg/dL Total Protein 6.0 L (6.3-8.2) g/dL Albumin 2.8 L (3.5-5.0) g/dL Diabetes panel 11/30/22 Range/Units 11:58 Sodium 127 L (137-145) mmol/L Potassium 4.5 (3.5-5.1) mmol/L Chloride 88 L (98-107) mmol/L Carbon Dioxide 26 (22-30) mmol/L BUN 37 H (7-17) mg/dL Creatinine 7.11 H* (0.52-1.04) mg/dL Glucose 106 H (74-99) mg/dL Calcium 8.6 (8.4-10.2) mg/dL AST 20 (14-36) U/L ALT 13 (4-34) U/L Alkaline Phosphatase 73 (38-126) U/L Total Protein 6.0 L (6.3-8.2) g/dL Albumin 2.8 L (3.5-5.0) g/dL Calcium panel 11/30/22 Range/Units 11:58 Calcium 8.6 (8.4-10.2) mg/dL Albumin 2.8 L (3.5-5.0) g/dL Pituitary panel 11/30/22 Range/Units 11:58 Sodium 127 L (137-145) mmol/L Potassium 4.5 (3.5-5.1) mmol/L Chloride 88 L (98-107) mmol/L Carbon Dioxide 26 (22-30) mmol/L BUN 37 H (7-17) mg/dL Creatinine 7.11 H* (0.52-1.04) mg/dL Glucose 106 H (74-99) mg/dL Calcium 8.6 (8.4-10.2) mg/dL Adrenal panel 11/30/22 Range/Units 11:58 Sodium 127 L (137-145) mmol/L Potassium 4.5 (3.5-5.1) mmol/L Chloride 88 L (98-107) mmol/L Carbon Dioxide 26 (22-30) mmol/L BUN 37 H (7-17) mg/dL Creatinine 7.11 H* (0.52-1.04) mg/dL Glucose 106 H (74-99) mg/dL Calcium 8.6 (8.4-10.2) mg/dL Total Bilirubin 0.6 (0.2-1.3) mg/dL AST 20 (14-36) U/L ALT 13 (4-34) U/L Alkaline Phosphatase 73 (38-126) U/L Total Protein 6.0 L (6.3-8.2) g/dL Albumin 2.8 L (3.5-5.0) g/dL
[2022-12-01] MEDS: PIPERACILLIN-TAZOBACTAM 3.375 GM in SODIUM CHLORIDE 0.9% 100 ML IVPB SCH (06:42)
[2022-12-01] MEDS: SODIUM CHLORIDE 0.9% 1,000 ML IV SCH ×2 (08:03→13:12)
[2022-12-01 08:11] LABS: Basophils % (A) 0 %; Eosinophils # (A) 0.3 k/uL (0-0.7); Eosinophils % (A) 2 %; Hypochromasia Slight; Lymphocytes # (A) 0.9 k/uL (1.0-4.8); Lymphocytes % (A) 6 %; MCH 32.3 pg (25.0-35.0); MCHC 32.4 g/dL (31.0-37.0); MCV 99.6 fL (80.0-100.0); Macrocytosis Slight; Mean Platelet Volume 7.5; Monocytes # (A) 0.5 k/uL (0-1.0); Monocytes % (A) 3 %; Neutrophils # (A) 13.7 k/uL (1.3-7.7); Neutrophils % (A) 88 %; Platelet Count 335 k/uL (150-450); RBC 1.97 m/uL (3.80-5.40); RDW 15.3 % (11.5-15.5); WBC 15.6 k/uL (3.8-10.6)
[2022-12-01 08:32] LABS: HCT 19.6 % (34.0-46.0); HGB 6.4 gm/dL (11.4-16.0)
[2022-12-01] MEDS ORDERED: SEVELAMER 800 MG TAB PO PRN (09:17)
[2022-12-01] MEDS: HYDROmorphone 1 MG/ML 1 ML SYRINGE IVP PRN ×2 (09:57→19:54)
[2022-12-01] MEDS: METOPROLOL TARTRATE 50 MG TAB PO SCH ×2 (10:10→21:22)
[2022-12-01] MEDS: metroNIDAZOLE-NS PMX 500 MG in SALINE 1 100ML.BAG IVPB SCH ×2 (11:48→17:42)
[2022-12-01] MEDS: SIMETHICONE 80 MG CHEWABLE PO SCH ×2 (11:59→17:48)
[2022-12-01] MEDS: SEVELAMER 800 MG TAB PO SCH ×2 (11:59→17:47)
[2022-12-01 12:10] LABS: Basophils % (A) 0 %; Eosinophils # (A) 0.2 k/uL (0-0.7); Eosinophils % (A) 2 %; Hypochromasia Slight; Lymphocytes # (A) 0.9 k/uL (1.0-4.8); Lymphocytes % (A) 6 %; MCH 32.4 pg (25.0-35.0); MCHC 32.8 g/dL (31.0-37.0); MCV 98.8 fL (80.0-100.0); Macrocytosis Slight; Mean Platelet Volume 7.5; Monocytes # (A) 0.5 k/uL (0-1.0); Monocytes % (A) 3 %; Neutrophils % (A) 88 %; Platelet Count 313 k/uL (150-450); RBC 1.91 m/uL (3.80-5.40); RDW 15.3 % (11.5-15.5); WBC 14.7 k/uL (3.8-10.6)
[2022-12-01 12:19] LABS: African American GFR (CKD) 6 (>60 ml/min/1.73 sqM); Anion Gap 11 mmol/L; Blood Urea Nitrogen 43 mg/dL (7-17); Calcium 7.7 mg/dL (8.4-10.2); Carbon Dioxide 22 mmol/L (22-30); Chloride 93 mmol/L (98-107); Glucose 89 mg/dL (74-99); Non-African American GFR(CKD) 5 (>60 ml/min/1.73 sqM); Potassium 4.7 mmol/L (3.5-5.1); Sodium 126 mmol/L (137-145)
[2022-12-01 12:22] LABS: HGB 6.2 gm/dL (11.4-16.0)
[2022-12-01 12:23] LABS: HCT 18.9 % (34.0-46.0)
--- NOTE | 2022-12-01 12:33 | P.PN ---
Subjective Progress Note Date: 12/01/22 Principal diagnosis: diverticulitis with abscess, s/p Manuelito's Reports feeling better overnight, less pain and nausea. FRANCESCA drain emptied recently Objective - Vital Signs Vital signs: Vital Signs Temp 98.3 F 12/01/22 07:25 Pulse 84 12/01/22 07:25 Resp 18 12/01/22 09:27 BP 156/88 12/01/22 07:25 Pulse Ox 97 12/01/22 07:25 FiO2 Intake & Output 11/30/22 12/01/22 12/01/22 18:59 06:59 18:59 Weight 88.451 kg Other: # Voids 0 0 # Bowel Movements 0 - Constitutional General appearance: Present: average body habitus, no acute distress - EENT Eyes: Present: normal appearance ENT: Present: hearing grossly normal Ears: bilateral: normal - Cardiovascular Rhythm: regular - Gastrointestinal Gastrointestinal Comment(s): mild ttp, no rebound/guarding. Ostomy productive General gastrointestinal: Present: soft - Integumentary Integumentary: Present: normal turgor - Neurologic Neurologic: Present: CNII-XII intact - Musculoskeletal Musculoskeletal: Present: strength equal bilaterally - Psychiatric Psychiatric: Present: A&O x's 3, appropriate affect - Labs CBC & Chem 7: 12/01/22 11:49 11/30/22 11:58 Labs: Abnormal Lab Results - Last 24 Hours (Table) 12/01/22 12/01/22 Range/Units 06:32 11:49 WBC 15.6 H 14.7 H (3.8-10.6) k/uL RBC 1.97 L 1.91 L (3.80-5.40) m/uL Hgb 6.4 L* 6.2 L* (11.4-16.0) gm/dL Hct 19.6 L* 18.9 L* (34.0-46.0) % Neutrophils # 13.7 H 13.0 H (1.3-7.7) k/uL Lymphocytes # 0.9 L 0.9 L (1.0-4.8) k/uL Microbiology - Last 24 Hours (Table) 11/30/22 14:23 Gram Stain - Preliminary Abdomen Wound Culture - Preliminary Gram Neg Bacilli - Imaging and Cardiology CT scan - abdomen: image reviewed CT scan - pelvis: image reviewed Assessment and Plan Assessment: continue drain, continue abx diet as tolerated (1) Diverticulitis of large intestine with complication Current Visit: No Status: Acute Code(s): K57.32 - DVTRCLI OF LG INT W/O PERFORATION OR ABSCESS W/O BLEEDING SNOMED Code(s): 492828910
[2022-12-01] MEDS ORDERED: DESMOPRESSIN ACETATE 20 MCG in SODIUM CHLORIDE 0.9% 50 ML IVPB ONE ×2 (13:04→18:00)
--- NOTE | 2022-12-01 13:08 | P.NPCON ---
History of Present Illness - Reason for Consult end stage renal disease - History of Present Illness Reason for consultation: End-stage renal disease History of present illness: Patient is a 42-year-old female seen in renal consultation for end-stage renal disease. She is maintained on hemodialysis on Saturday schedule via permacath. Patient was admitted at this facility recently due to peritonitis and had a perforated sigmoid diverticulitis and underwent surgery. Patient noticed increased drainage that was milky in nature from the FRANCESCA drain and came to the hospital. She is being followed by surgery. She is also noted to have residual peritoneal abscess along the right liver. She is on IV antibiotics. Last hemodialysis was on Saturday. Patient does not make any urine. Hemoglobin low at 6.2 and she scheduled to receive a unit of blood. She denies any active bleeding. No melena or hematochezia. Patient states she had one episode of fever at home. This morning her temperature was 98.3F. Hemodynamically stable. No chest pain or shortness of breath. No history of diabetes. Vital signs are stable. General: No acute distress. HEENT: Head exam is unremarkable. LUNGS: No audible rhonchi or wheezes. HEART: Rate and Rhythm are regular. ABDOMEN: Colostomy noted. FRANCESCA drain with whitish drainage noted. EXTREMITITES: No edema. 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., SWOLLEN OPTICAL NERVE & RETINA , STATES VISION BLURRED AT TIMES., PSEUDO TUMOR BRAIN., HX GOUT, ANEMIA, KIDNEY FAILURE.-HAS DIALYSIS CATHETER AND RECEIVING HEMODIALYSIS -SAT-SAT. HX FSGS (FOCAL SEGMENTAL GLOMERULOSCLEROSIS) History of Any Multi-Drug Resistant Organisms: None Reported Past Surgical History: Section Additional Past Surgical History / Comment(s): PD catheter 01/27/2019, abdominal surgeries in october 2022 Past Anesthesia/Blood Transfusion Reactions: No Reported Reaction Past Psychological History: Anxiety Smoking Status: Former smoker Past Alcohol Use History: Occasional Past Drug Use History: Marijuana - Past Family History Father Family Medical History: Myocardial Infarction ([place]) Additional Family Medical History / Comment(s): FATHER AT AGE 35 OF MASSIVE HEART ATTACK Mother Family Medical History: Cancer, Deep Vein Thrombosis (DVT) Additional Family Medical History / Comment(s): SKIN CANCER Medications and Allergies Home Medications Medication Instructions Recorded Confirmed Type Metoprolol Tartrate [Lopressor] 50 mg PO BID 11/11/21 11/30/22 History Renaplex-D 1 tab PO DAILY 11/11/21 11/30/22 History Velphoro 500mg Chewable Tab 1,000 mg PO TID-W/MEALS 11/02/22 11/30/22 History Velphoro 500mg Chewable Tab 500 mg PO DAILY PRN 11/02/22 11/30/22 History lisinopriL [Zestril] 20 mg PO BID 11/02/22 11/30/22 History Darbepoetin Shahram [Aranesp] 100 mcg SQ Q7D #4 each 11/23/22 11/30/22 Rx Famotidine [Pepcid] 20 mg PO DAILY #30 tablet 11/23/22 11/30/22 Rx Ondansetron [Zofran] 4 mg PO Q8HR PRN #20 tab 11/23/22 11/30/22 Rx Simethicone Chew [Mylicon Chew] 160 mg PO TID #40 tab 11/23/22 11/30/22 Rx Sodium Bicarbonate Tab 650 mg PO BID #60 tab 11/23/22 11/30/22 Rx cefUROXime axetiL [Ceftin] 500 mg PO BID 10 Days #20 tab 11/23/22 11/30/22 Rx hydrALAZINE HCL [Apresoline] 50 mg PO TID #90 tab 11/23/22 11/30/22 Rx metroNIDAZOLE [Flagyl] 500 mg PO TID 10 Days #30 tab 11/23/22 11/30/22 Rx tiZANidine HCL [Zanaflex] 4 mg PO HS 11/30/22 11/30/22 History Allergies Allergy/AdvReac Type Severity Reaction Status Date / Time Pertussis Vaccines Allergy Unknown Verified 11/30/22 16:54 iron AdvReac Severe Nausea & Verified 11/30/22 16:54 Vomiting & Diarrhea ciprofloxacin [From Cipro] AdvReac UNCONTROLLABLE Verified 11/30/22 16:54 EMOTIONS PER PT Physical Exam Vitals: Vital Signs Temp Pulse Pulse Resp BP BP Pulse Ox 12/01/22 09:27 18 12/01/22 07:25 98.3 F 84 17 156/88 97 12/01/22 01:18 99.2 F 92 153/84 97 09/01/23 19:49 99.2 F 82 17 169/87 99 11/30/22 14:30 83 30 H 169/92 100 11/30/22 14:00 77 18 174/99 100 11/30/22 13:30 79 18 165/99 100 11/30/22 13:00 76 18 166/96 98 Intake and Output 11/30/22 12/01/22 12/01/22 22:59 06:59 14:59 Other: # Voids 0 0 # Bowel Movements 0 Weight 88.451 kg Results - Lab Results Most recent lab results Calcium 7.7 mg/dL (8.4-10.2) L 12/01/22 11:49 12/01/22 11:49 12/01/22 11:49 Assessment and Plan Plan: Assessment: 1. End-stage renal disease maintained on hemodialysis on Saturday schedule. 2. Perforated sigmoid diverticulitis status post surgery in October 2022. 3. Intra-abdominal abscess on IV antibiotics. Infectious disease and surgery following. Wound culture positive for gram-negative bacilli. 4. Hypertension with chronic kidney disease. 5. Anemia of chronic kidney disease maintained on Aranesp. Component of acute blood loss scheduled to receive a unit of blood today. 6. Chronic kidney disease mineral bone disease maintained on Renvela. 7. Hyponatremia secondary to chronic kidney disease. Plan: Hemodialysis today. DDAVP IV 1 dose today. Check phosphorus level. Decrease rate of IV fluids. Thank you for the consultation. I will continue to follow the patient with you during her hospital stay.
[2022-12-01] MEDS: CEFEPIME 1 GM in SODIUM CHLORIDE 0.9% 50 ML IVPB SCH (13:11)
[2022-12-01] MEDS: hydrALAZINE HCL 25 MG TAB PO SCH ×2 (17:42→21:22)
--- NOTE | 2022-12-01 20:45 | P.HPIM ---
History of Present Illness H&P Date: 11/30/22 Chief Complaint: Abdominal pain 42-year-old female with a past medical history significant for end-stage renal disease on hemodialysis presents to the ED for chief complaint of abdominal pain. Patient previously discharged from this facility on 11/23/22. Patient initially at this time presented for abdominal pain. Was on peritoneal dialysis at this time. Found to have peritonitis. Additionally, during her stay here had a perforation of sigmoid diverticulitis and patient is status post sigmoid colectomy and ostomy. Additionally has a right FRANCESCA drain in place. Was placed on Ceftin at discharge for 10 days and was supposed to follow up with Dr. Solomon and Dr. Blackburn on an outpatient basis. However, per patient's started to experience abdominal pain 2 days ago. Also notes a change in drainage at her FRANCESCA drain. States that drainage has become purulent and has become malodorous. Denies fever. Denies chest pain or shortness of breath. No other complaints. Last dialysis was on 11/28. Is due for dialysis today. 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., SWOLLEN OPTICAL NERVE & RETINA , STATES VISION BLURRED AT TIMES., PSEUDO TUMOR BRAIN., HX GOUT, ANEMIA, KIDNEY FAILURE.-HAS DIALYSIS CATHETER AND RECEIVING HEMODIALYSIS -SAT-SAT. HX FSGS (FOCAL SEGMENTAL GLOMERULOSCLEROSIS) History of Any Multi-Drug Resistant Organisms: None Reported Past Surgical History: Section Additional Past Surgical History / Comment(s): PD catheter 01/27/2019, abdominal surgeries in october 2022 Past Anesthesia/Blood Transfusion Reactions: No Reported Reaction Past Psychological History: Anxiety Smoking Status: Former smoker Past Alcohol Use History: Occasional Past Drug Use History: Marijuana - Past Family History Father Family Medical History: Myocardial Infarction ([place]) Additional Family Medical History / Comment(s): FATHER AT AGE 35 OF MASSIVE HEART ATTACK Mother Family Medical History: Cancer, Deep Vein Thrombosis (DVT) Additional Family Medical History / Comment(s): SKIN CANCER Medications and Allergies Home Medications Medication Instructions Recorded Confirmed Type Metoprolol Tartrate [Lopressor] 50 mg PO BID 11/11/21 11/30/22 History Renaplex-D 1 tab PO DAILY 11/11/21 11/30/22 History Velphoro 500mg Chewable Tab 1,000 mg PO TID-W/MEALS 11/02/22 11/30/22 History Velphoro 500mg Chewable Tab 500 mg PO DAILY PRN 11/02/22 11/30/22 History lisinopriL [Zestril] 20 mg PO BID 11/02/22 11/30/22 History Darbepoetin Shahram [Aranesp] 100 mcg SQ Q7D #4 each 11/23/22 11/30/22 Rx Famotidine [Pepcid] 20 mg PO DAILY #30 tablet 11/23/22 11/30/22 Rx Ondansetron [Zofran] 4 mg PO Q8HR PRN #20 tab 11/23/22 11/30/22 Rx Simethicone Chew [Mylicon Chew] 160 mg PO TID #40 tab 11/23/22 11/30/22 Rx Sodium Bicarbonate Tab 650 mg PO BID #60 tab 11/23/22 11/30/22 Rx cefUROXime axetiL [Ceftin] 500 mg PO BID 10 Days #20 tab 11/23/22 11/30/22 Rx hydrALAZINE HCL [Apresoline] 50 mg PO TID #90 tab 11/23/22 11/30/22 Rx metroNIDAZOLE [Flagyl] 500 mg PO TID 10 Days #30 tab 11/23/22 11/30/22 Rx tiZANidine HCL [Zanaflex] 4 mg PO HS 11/30/22 11/30/22 History Allergies Allergy/AdvReac Type Severity Reaction Status Date / Time Pertussis Vaccines Allergy Unknown Verified 11/30/22 16:54 iron AdvReac Severe Nausea & Verified 11/30/22 16:54 Vomiting & Diarrhea ciprofloxacin [From Cipro] AdvReac UNCONTROLLABLE Verified 11/30/22 16:54 EMOTIONS PER PT Physical Exam Vitals: Vital Signs Temp Pulse Resp BP Pulse Ox 11/30/22 14:30 83 30 H 169/92 100 11/30/22 14:00 77 18 174/99 100 11/30/22 13:30 79 18 165/99 100 11/30/22 13:00 76 18 166/96 98 11/30/22 12:30 80 23 179/103 99 11/30/22 12:00 159/99 100 11/30/22 11:30 161/92 99 11/30/22 11:20 151/98 99 11/30/22 11:11 98 11/30/22 11:09 77 18 151/98 99 11/30/22 10:55 98.6 F 86 18 150/91 98 Intake and Output 11/30/22 11/30/22 11/30/22 06:59 14:59 22:59 Other: Weight 88.451 kg Limitations: no limitations General appearance: alert, in no apparent distress Neck exam: Present: normal inspection Respiratory exam: Present: normal lung sounds bilaterally Cardiovascular Exam: Present: regular rate, normal rhythm GI/Abdominal exam: Present: soft (Incision sites are clean dry and intact with no surrounding warmth erythema. Ostomy covered with feces however appears pink, patent, and productive. FRANCESCA drain on the right side of the abdomen with purulent drainage.) Neurological exam: Present: alert, oriented X3 Skin exam: Present: warm, dry Results CBC & Chem 7: 12/01/22 11:49 12/01/22 11:49 Labs: Abnormal Lab Results - Last 24 Hours (Table) 11/30/22 11/30/22 Range/Units 11:58 11:58 WBC 20.2 H (3.8-10.6) k/uL RBC 2.21 L (3.80-5.40) m/uL Hgb 7.4 L (11.4-16.0) gm/dL Hct 21.9 L (34.0-46.0) % Neutrophils # 18.1 H (1.3-7.7) k/uL Sodium 127 L (137-145) mmol/L Chloride 88 L (98-107) mmol/L BUN 37 H (7-17) mg/dL Creatinine 7.11 H* (0.52-1.04) mg/dL Glucose 106 H (74-99) mg/dL Total Protein 6.0 L (6.3-8.2) g/dL Albumin 2.8 L (3.5-5.0) g/dL Assessment and Plan Assessment: 1. Intra-abdominal abscess - Patient presenting with abdominal pain and purulent drainage from FRANCESCA drain - Patient does have history of recent PD catheter associated peritonitis along with perforated diverticulitis and intra-abdominal abscesses with bacteroid species - ID on board and patient has been placed on IV Zosyn and Flagyl - We will monitor CBC, CRP and pro-calcitonin - ID recommending CT of the abdomen possible need for abscess drainage 2. Acute on chronic anemia; no signs of bleeding; possibly related to chronic kidney disease/sepsis; we will monitor H&H closely and transfuse if hemoglobin is less than 7.0; PPI therapy; continue with Aranesp; sodium bicarbonate 650 mg twice a day 3. End-stage renal disease/hemodialysis; patient does state that Saturday, Saturday and Saturday via permacath; nephrology on board; patient is maintained on Renvela for mineral bone disease associated with CKD 4. Hypertension; hydralazine 25 mg 3 times a day, lisinopril 20 mg twice a day, metoprolol 50 mg twice a day DVT prophylaxis; SCDs CODE STATUS; full code
--- NOTE | 2022-12-01 20:47 | P.PN ---
Subjective Progress Note Date: 12/01/22 42-year-old female with a past medical history significant for end-stage renal disease on hemodialysis presents to the ED for chief complaint of abdominal pain. Patient previously discharged from this facility on 11/23/22. Patient initially at this time presented for abdominal pain. Was on peritoneal dialysis at this time. Found to have peritonitis. Additionally, during her stay here had a perforation of sigmoid diverticulitis and patient is status post sigmoid colectomy and ostomy. Additionally has a right FRANCESCA drain in place. Was placed on Ceftin at discharge for 10 days and was supposed to follow up with Dr. Solomon and Dr. Blackburn on an outpatient basis. However, per patient's started to experience abdominal pain 2 days ago. Also notes a change in drainage at her FRANCESCA drain. States that drainage has become purulent and has become malodorous. Denies fever. Denies chest pain or shortness of breath. No other complaints. Last dialysis was on 11/28. Is due for dialysis today. -- Hemoglobin down to 6.2 this morning; we will transfuse with 1 unit packed RBCs; monitor H&H closely --CT of the abdomen is completed and results are pending Objective - Vital Signs Vital signs: Vital Signs Temp 98.3 F 12/01/22 07:25 Pulse 84 12/01/22 07:25 Resp 18 12/01/22 09:27 BP 156/88 12/01/22 07:25 Pulse Ox 97 12/01/22 07:25 FiO2 Intake & Output 11/30/22 12/01/22 12/01/22 18:59 06:59 18:59 Weight 88.451 kg Other: # Voids 0 0 # Bowel Movements 0 - Exam General appearance: alert, in no apparent distress Neck exam: Present: normal inspection Respiratory exam: Present: normal lung sounds bilaterally Cardiovascular Exam: Present: regular rate, normal rhythm GI/Abdominal exam: Present: soft (Incision sites are clean dry and intact with no surrounding warmth erythema. Ostomy covered with feces however appears pink, patent, and productive. FRANCESCA drain on the right side of the abdomen with purulent drainage.) Neurological exam: Present: alert, oriented X3 Skin exam: Present: warm, dry - Labs CBC & Chem 7: 12/01/22 11:49 12/01/22 11:49 Labs: Abnormal Lab Results - Last 24 Hours (Table) 11/30/22 11/30/22 12/01/22 Range/Units 11:58 11:58 06:32 WBC 20.2 H 15.6 H (3.8-10.6) k/uL RBC 2.21 L 1.97 L (3.80-5.40) m/uL Hgb 7.4 L 6.4 L* (11.4-16.0) gm/dL Hct 21.9 L 19.6 L* (34.0-46.0) % Neutrophils # 18.1 H 13.7 H (1.3-7.7) k/uL Lymphocytes # 0.9 L (1.0-4.8) k/uL Sodium 127 L (137-145) mmol/L Chloride 88 L (98-107) mmol/L BUN 37 H (7-17) mg/dL Creatinine 7.11 H* (0.52-1.04) mg/dL Glucose 106 H (74-99) mg/dL Total Protein 6.0 L (6.3-8.2) g/dL Albumin 2.8 L (3.5-5.0) g/dL Microbiology - Last 24 Hours (Table) 11/30/22 14:23 Gram Stain - Preliminary Abdomen Wound Culture - Preliminary Gram Neg Bacilli Assessment and Plan Assessment: 1. Intra-abdominal abscess - Patient presenting with abdominal pain and purulent drainage from FRANCESCA drain - Patient does have history of recent PD catheter associated peritonitis along with perforated diverticulitis and intra-abdominal abscesses with bacteroid species - ID on board and patient has been placed on IV Zosyn and Flagyl - We will monitor CBC, CRP and pro-calcitonin - ID recommending CT of the abdomen possible need for abscess drainage 2. Acute on chronic anemia; no signs of bleeding; possibly related to chronic kidney disease/sepsis; we will monitor H&H closely and transfuse if hemoglobin is less than 7.0; PPI therapy; continue with Aranesp; sodium bicarbonate 650 mg twice a day 3. End-stage renal disease/hemodialysis; patient does state that Saturday, Saturday and Saturday via permacath; nephrology on board; patient is maintained on Renvela for mineral bone disease associated with CKD 4. Hypertension; hydralazine 25 mg 3 times a day, lisinopril 20 mg twice a day, metoprolol 50 mg twice a day DVT prophylaxis; SCDs CODE STATUS; full code
[2022-12-01] MEDS: tiZANidine 4 MG TAB PO SCH (21:22)
[2022-12-01] MEDS: SODIUM BICARBONATE TAB 650 MG TAB PO SCH (21:22)
[2022-12-01] MEDS: lisinopriL 20 MG TAB PO SCH (21:22)
--- NOTE | 2022-12-01 22:38 | P.PN ---
Subjective Progress Note Date: 12/01/22 Principal diagnosis: Intra-abdominal abscess Patient is a 42-year-old female with a past medical history significant for end-stage renal disease was on peritoneal dialysis who was recently admitted to the hospital treated for PD catheter associated peritonitis outpatient culture positive for E. coli , subsequent CT did shows evidence of perforated diverticulitis for the patient did have laparotomy drainage of abdominal abscess and did have a diverting colostomy abdominal culture positive for bacteroid species, patient discharged home on oral Ceftin and Flagyl now presenting back to the hospital abdominal pain and purulent FRANCESCA drainage CT abdominal pelvis concerning for abscess. On today's evaluation that is 7 12/01/2022 the patient denies having any fever or any chills patient is breathing comfortably on room air denies any chest pain shortness of breath or cough abdominal pain has not decreased in intensity still have a purulent drainage in the FRANCESCA drain no vomiting. Patient white count is down to 15.6 hemoglobin is 6.4 blood cultures currently pending Objective - Vital Signs Vital signs: Vital Signs Temp 98.3 F 12/01/22 07:25 Pulse 84 12/01/22 07:25 Resp 18 12/01/22 09:27 BP 156/88 12/01/22 07:25 Pulse Ox 97 12/01/22 07:25 FiO2 Intake & Output 11/30/22 12/01/22 12/01/22 18:59 06:59 18:59 Weight 88.451 kg Other: # Voids 0 0 # Bowel Movements 0 - Exam GENERAL DESCRIPTION: Middle-age female lying in bed in no distress RESPIRATORY SYSTEM: Unlabored breathing , decreased breath sounds at bases HEART: S1 S2 regular rate and rhythm , ABDOMEN: Soft , no tenderness, purulent drainage in the FRANCESCA drain EXTREMITIES: No edema feet - Labs CBC & Chem 7: 12/01/22 11:49 12/01/22 11:49 Labs: Abnormal Lab Results - Last 24 Hours (Table) 11/30/22 11/30/22 12/01/22 Range/Units 11:58 11:58 06:32 WBC 20.2 H 15.6 H (3.8-10.6) k/uL RBC 2.21 L 1.97 L (3.80-5.40) m/uL Hgb 7.4 L 6.4 L* (11.4-16.0) gm/dL Hct 21.9 L 19.6 L* (34.0-46.0) % Neutrophils # 18.1 H 13.7 H (1.3-7.7) k/uL Lymphocytes # 0.9 L (1.0-4.8) k/uL Sodium 127 L (137-145) mmol/L Chloride 88 L (98-107) mmol/L BUN 37 H (7-17) mg/dL Creatinine 7.11 H* (0.52-1.04) mg/dL Glucose 106 H (74-99) mg/dL Total Protein 6.0 L (6.3-8.2) g/dL Albumin 2.8 L (3.5-5.0) g/dL Microbiology - Last 24 Hours (Table) 11/30/22 14:23 Gram Stain - Preliminary Abdomen Wound Culture - Preliminary Gram Neg Bacilli Assessment and Plan (1) Leukocytosis Current Visit: Yes Status: Acute Code(s): D72.829 - ELEVATED WHITE BLOOD CELL COUNT, UNSPECIFIED SNOMED Code(s): 136909917 (2) Intra-abdominal abscess Current Visit: No Status: Acute Code(s): K65.1 - PERITONEAL ABSCESS SNOMED Code(s): 72499584 Plan: 1patient presented to hospital with abdominal pain and more purulent drainage from the FRANCESCA drain drain high clinic suspicion for intra-abdominal abscess in t his patient who did have a complicated history initially of PD catheter associated peritonitis subsequently did have a perforated diverticulitis and intra-abdominal abscess with bacteroids species failing outpatient or antibiotic therapy. 2CT abdominal pelvis did shows evidence of an abscess await possible CT-guided drainage. 4we will adjust antibiotic therapy to cefepime and Flagyl and monitor clinical course closely Dictation was produced using [employer] software. please excuse any gr ammatical, word or spelling errors.
[2022-12-02] MEDS: metroNIDAZOLE-NS PMX 500 MG in SALINE 1 100ML.BAG IVPB SCH ×4 (00:25→23:38)
[2022-12-02] MEDS: HYDROmorphone 1 MG/ML 1 ML SYRINGE IVP PRN ×2 (03:22→20:39)
[2022-12-02] MEDS: SEVELAMER 800 MG TAB PO SCH ×3 (06:52→17:04)
[2022-12-02] MEDS: HYDROmorphone 0.5 MG/0.5 ML SYRINGE IVP PRN ×3 (06:52→17:38)
[2022-12-02] MEDS: SIMETHICONE 80 MG CHEWABLE PO SCH ×3 (06:53→17:04)
[2022-12-02] MEDS: SODIUM BICARBONATE TAB 650 MG TAB PO SCH (08:07)
[2022-12-02] MEDS: FAMOTIDINE 20 MG TAB PO SCH (08:07)
[2022-12-02] MEDS: lisinopriL 20 MG TAB PO SCH ×2 (08:07→20:04)
[2022-12-02] MEDS: METOPROLOL TARTRATE 50 MG TAB PO SCH ×2 (08:07→20:04)
[2022-12-02] MEDS: hydrALAZINE HCL 25 MG TAB PO SCH ×3 (08:07→21:08)
[2022-12-02 08:17] LABS: Basophils % (A) 0 %; Eosinophils # (A) 0.2 k/uL (0-0.7); Eosinophils % (A) 2 %; Hypochromasia Moderate; Lymphocytes # (A) 1.1 k/uL (1.0-4.8); Lymphocytes % (A) 11 %; MCHC 30.9 g/dL (31.0-37.0); MCV 100.1 fL (80.0-100.0); Macrocytosis Slight; Mean Platelet Volume 7.4; Monocytes # (A) 0.4 k/uL (0-1.0); Monocytes % (A) 4 %; Neutrophils # (A) 7.5 k/uL (1.3-7.7); Neutrophils % (A) 81 %; Platelet Count 290 k/uL (150-450); RBC 1.85 m/uL (3.80-5.40); RDW 15.5 % (11.5-15.5); WBC 9.4 k/uL (3.8-10.6)
[2022-12-02] MEDS: FOLIC ACID-VIT B COMPLEX-VIT C 1 CAP PO SCH (08:20)
[2022-12-02 08:28] LABS: HCT 18.5 % (34.0-46.0); HGB 5.7 gm/dL (11.4-16.0)
[2022-12-02 09:24] LABS: African American GFR (CKD) 11 (>60 ml/min/1.73 sqM); Anion Gap 4 mmol/L; Blood Urea Nitrogen 22 mg/dL (7-17); Calcium 7.7 mg/dL (8.4-10.2); Carbon Dioxide 30 mmol/L (22-30); Chloride 97 mmol/L (98-107); Glucose 93 mg/dL (74-99); Non-African American GFR(CKD) 10 (>60 ml/min/1.73 sqM); Phosphorus 5.5 mg/dL (2.5-4.5); Potassium 3.7 mmol/L (3.5-5.1); Sodium 131 mmol/L (137-145)
[2022-12-02] MEDS: CEFEPIME 1 GM in SODIUM CHLORIDE 0.9% 50 ML IVPB SCH (09:49)
--- NOTE | 2022-12-02 11:18 | P.PN ---
Subjective Patient is seen in follow-up for end-stage renal disease. She is maintained on hemodialysis on Saturday schedule. No problems with dialysis yesterday. Hemoglobin low at 5.7 and she's scheduled to receive 2 units of blood today. Denies any active bleeding. Vital signs are stable. General: No acute distress. HEENT: Head exam is unremarkable. LUNGS: No audible rhonchi or wheezes. HEART: Rate and Rhythm are regular. ABDOMEN: Nontender. FRANCESCA drain noted. EXTREMITITES: No edema. Objective - Vital Signs Vital signs: Vital Signs Temp 98.2 F 12/02/22 10:14 Pulse 72 12/02/22 10:14 Resp 16 12/02/22 10:14 BP 138/84 12/02/22 10:14 Pulse Ox 99 12/02/22 09:54 FiO2 Intake & Output 12/01/22 12/02/22 12/02/22 18:59 06:59 18:59 Intake Total 1383 0 Output Total 2850 20 Balance -1467 -20 0 Intake: Oral 300 Blood Product 283 0 Rc Irr As1 Unit 0 [id number] Rc Pheresis 2 As3 Unit 283 [id number] Hemodialysis 800 Output: Drainage 50 20 Right 50 20 Hemodialysis 2800 Other: # Voids 0 0 - Labs CBC & Chem 7: 12/02/22 07:56 12/02/22 07:56 Labs: Abnormal Lab Results - Last 24 Hours (Table) 12/01/22 12/01/22 12/01/22 Range/Units 11:49 11:49 11:49 WBC 14.7 H (3.8-10.6) k/uL RBC 1.91 L (3.80-5.40) m/uL Hgb 6.2 L* (11.4-16.0) gm/dL Hct 18.9 L* (34.0-46.0) % MCV (80.0-100.0) fL MCHC (31.0-37.0) g/dL Neutrophils # 13.0 H (1.3-7.7) k/uL Lymphocytes # 0.9 L (1.0-4.8) k/uL Sodium 126 L (137-145) mmol/L Chloride 93 L (98-107) mmol/L BUN 43 H (7-17) mg/dL Creatinine 8.33 H* (0.52-1.04) mg/dL Plasma Lactic Acid Jame (0.7-2.0) mmol/L Calcium 7.7 L (8.4-10.2) mg/dL Phosphorus (2.5-4.5) mg/dL Procalcitonin (0.02-0.09) ng/mL Crossmatch See Detail 12/01/22 12/02/22 12/02/22 Range/Units 11:49 07:56 07:56 WBC (3.8-10.6) k/uL RBC 1.85 L (3.80-5.40) m/uL Hgb 5.7 L* (11.4-16.0) gm/dL Hct 18.5 L* (34.0-46.0) % MCV 100.1 H (80.0-100.0) fL MCHC 30.9 L (31.0-37.0) g/dL Neutrophils # (1.3-7.7) k/uL Lymphocytes # (1.0-4.8) k/uL Sodium 131 L (137-145) mmol/L Chloride 97 L (98-107) mmol/L BUN 22 H (7-17) mg/dL Creatinine 5.10 H (0.52-1.04) mg/dL Plasma Lactic Acid Jame (0.7-2.0) mmol/L Calcium 7.7 L (8.4-10.2) mg/dL Phosphorus 5.5 H (2.5-4.5) mg/dL Procalcitonin 2.24 H (0.02-0.09) ng/mL Crossmatch 12/02/22 Range/Units 07:56 WBC (3.8-10.6) k/uL RBC (3.80-5.40) m/uL Hgb (11.4-16.0) gm/dL Hct (34.0-46.0) % MCV (80.0-100.0) fL MCHC (31.0-37.0) g/dL Neutrophils # (1.3-7.7) k/uL Lymphocytes # (1.0-4.8) k/uL Sodium (137-145) mmol/L Chloride (98-107) mmol/L BUN (7-17) mg/dL Creatinine (0.52-1.04) mg/dL Plasma Lactic Acid Jame 0.5 L (0.7-2.0) mmol/L Calcium (8.4-10.2) mg/dL Phosphorus (2.5-4.5) mg/dL Procalcitonin (0.02-0.09) ng/mL Crossmatch Microbiology - Last 24 Hours (Table) 11/30/22 14:23 Gram Stain - Final Abdomen Wound Culture - Final Escherichia coli 11/30/22 11:55 Blood Culture - Preliminary Blood 11/30/22 11:40 Blood Culture - Preliminary Blood Assessment and Plan Plan: Assessment: 1. End-stage renal disease maintained on hemodialysis on Saturday schedule. 2. Perforated sigmoid diverticulitis status post surgery in October 2022. 3. Intra-abdominal abscess on IV antibiotics. Infectious disease and surgery following. Wound culture positive for E. coli. 4. Hypertension with chronic kidney disease. Stable. 5. Anemia of chronic kidney disease maintained on Aranesp. Component of acute blood loss scheduled to receive blood transfusions today. Status post IV DDAVP yesterday. 6. Chronic kidney disease mineral bone disease maintained on Renvela. Phosphorus 5.5 date 12/02/2022. 7. Hyponatremia secondary to chronic kidney disease. Improved postdialysis. Plan: Hemodialysis tomorrow. Repeat DDAVP IV 1 dose today. Stop bicarb.
[2022-12-02 13:43] VITALS: BMI 33.5
[2022-12-02] MEDS: SODIUM CHLORIDE 0.9% 1,000 ML IV SCH (14:02)
--- NOTE | 2022-12-02 16:47 | P.PN ---
Subjective Progress Note Date: 12/02/22 CHIEF COMPLAINT: Peritoneal abscess HISTORY OF PRESENT ILLNESS: The patient is a 42-year-old female readmitted for fatigue, acute renal failure, leukocytosis. She was recently discharged 1 week ago for perforated sigmoid diverticulitis, Brandon's procedure. She reports decreased oral intake prior to presenting to the hospital. Family is at bedside. She received 1 unit of packed RBCs for anemia, hemoglobin less than 7.0. Today, hemoglobin dropped to 5.7 despite one unit packed RBCs. She rece ived dialysis yesterday. She reports feeling better. Overall, no signs of bleeding. ROS: No reports of nausea and vomiting. No fevers or chills. No new chest pain. No productive sputum PHYSICAL EXAM: VITAL SIGNS: Reviewed CONSTITUTIONAL: Well developed and in no acute distress. EYES: Conjuctivae without sclera icterus. Extraocular movements grossly intact. HEAD, EARS, NOSE, THROAT: Moist buccal mucosa. Head is atraumatic, normocephalic. Hears conversational speech. No nasal drainage. RESPIRATORY: Non-labored respirations and equal bilateral excursions. CARDIOVASCULAR: Palpable 2+ radial pulses. ABDOMEN: Nontender. Ostomy patent functioning. FRANCESCA purulent. MUSCULOSKELETAL: No gross deformity of the lower extremities noted. No clubbing. No cyanosis. SKIN: Good skin turgor. Well perfused. NEUROLOGIC: Cranial nerves II through XII grossly intact. No focal or lateralizing signs. PSYCH: Appropriate affect. Alert and oriented to person, place and time. CLINICAL LABS: Reviewed. WBC elevated over 20,000 on admission, now normal 9.4. Hemoglobin to 7.4-5.7, severe anemia. Sodium low, 126, hyponatremia ASSESSMENT: 1. Peritoneal abscess due to perforated diverticulitis 2. Sepsis on admission, improving 3. End-stage renal disease, dialysis dependent 4. Dehydration on admission 5. Severe anemia with anemia of chronic disease PLAN: 1. Her Hgb has dropped to 5.7 with no signs of bleeding. Additonal 2 u pRBCS quadrant for transfusion. 2. She had dialysis yesterday and we'll continue with Saturday dialysis 3. FRANCESCA draining pelvic abscess. May benefit from IR consultation for peritoneal abscess drainage. 4. Continue IV antibotics. Objective - Vital Signs Vital signs: Vital Signs Temp 98.7 F 12/02/22 15:47 Pulse 82 09/03/23 16:16 Resp 18 12/02/22 16:16 BP 163/92 12/02/22 16:16 Pulse Ox 99 12/02/22 15:56 FiO2 Intake & Output 12/01/22 12/02/22 12/02/22 18:59 06:59 18:59 Intake Total 1383 620 Output Total 2850 20 Balance -1467 -20 620 Weight 88.451 kg Intake: Oral 300 Blood Product 283 620 Ffp 24 Pher Acda Cnt2 0 Unit [id number] Rc As-1 Unit 310 [id number] Rc Irr As1 Unit 310 [id number] Rc Pheresis 2 As3 Unit 283 [id number] Hemodialysis 800 Output: Drainage 50 20 Right 50 20 Hemodialysis 2800 Other: # Voids 0 0 - Labs CBC & Chem 7: 12/02/22 07:56 12/02/22 07:56 Labs: Abnormal Lab Results - Last 24 Hours (Table) 12/01/22 12/01/22 12/02/22 Range/Units 11:49 11:49 07:56 RBC (3.80-5.40) m/uL Hgb (11.4-16.0) gm/dL Hct (34.0-46.0) % MCV (80.0-100.0) fL MCHC (31.0-37.0) g/dL Sodium 131 L (137-145) mmol/L Chloride 97 L (98-107) mmol/L BUN 22 H (7-17) mg/dL Creatinine 5.10 H (0.52-1.04) mg/dL Plasma Lactic Acid Jame (0.7-2.0) mmol/L Calcium 7.7 L (8.4-10.2) mg/dL Phosphorus 5.5 H (2.5-4.5) mg/dL Procalcitonin 2.24 H (0.02-0.09) ng/mL Crossmatch See Detail 12/02/22 12/02/22 Range/Units 07:56 07:56 RBC 1.85 L (3.80-5.40) m/uL Hgb 5.7 L* (11.4-16.0) gm/dL Hct 18.5 L* (34.0-46.0) % MCV 100.1 H (80.0-100.0) fL MCHC 30.9 L (31.0-37.0) g/dL Sodium (137-145) mmol/L Chloride (98-107) mmol/L BUN (7-17) mg/dL Creatinine (0.52-1.04) mg/dL Plasma Lactic Acid Jame 0.5 L (0.7-2.0) mmol/L Calcium (8.4-10.2) mg/dL Phosphorus (2.5-4.5) mg/dL Procalcitonin (0.02-0.09) ng/mL Crossmatch Microbiology - Last 24 Hours (Table) 11/30/22 14:23 Gram Stain - Final Abdomen Wound Culture - Final Escherichia coli 11/30/22 11:55 Blood Culture - Preliminary Blood 11/30/22 11:40 Blood Culture - Preliminary Blood
--- NOTE | 2022-12-02 16:57 | P.PN ---
Subjective Progress Note Date: 12/02/22 Principal diagnosis: Intra-abdominal abscess Patient is a 42-year-old female with a past medical history significant for end-stage renal disease was on peritoneal dialysis who was recently admitted to the hospital treated for PD catheter associated peritonitis outpatient culture positive for E. coli , subsequent CT did shows evidence of perforated diverticulitis for the patient did have laparotomy drainage of abdominal abscess and did have a diverting colostomy abdominal culture positive for bacteroid species, patient discharged home on oral Ceftin and Flagyl now presenting back to the hospital abdominal pain and purulent FRANCESCA drainage CT abdominal pelvis concerning for abscess. On today's evaluation that is 12/02/2022 the patient remains to be afebrile, patient is breathing comfortably on room air , the patient denies any chest pain shortness of breath or cough abdominal pain has not decreased in intensity still have a purulent drainage in the FRANCESCA drain no vomiting. Patient white count is down to 9.4, hemoglobin is 5.7, creatinine is 5.10, FRANCESCA drainage culture growing E. coli that is sensitive pathogen Objective - Vital Signs Vital signs: Vital Signs Temp 98.5 F 12/02/22 12:46 Pulse 81 12/02/22 13:06 Resp 20 12/02/22 13:06 BP 147/89 12/02/22 13:06 Pulse Ox 97 12/02/22 12:46 FiO2 Intake & Output 12/01/22 12/02/22 12/02/22 18:59 06:59 18:59 Intake Total 1383 310 Output Total 2850 20 Balance -1467 -20 310 Weight 88.451 kg Intake: Oral 300 Blood Product 283 310 Rc As-1 Unit 0 [id number] Rc Irr As1 Unit 310 [id number] Rc Pheresis 2 As3 Unit 283 [id number] Hemodialysis 800 Output: Drainage 50 20 Right 50 20 Hemodialysis 2800 Other: # Voids 0 0 - Exam GENERAL DESCRIPTION: Middle-age female lying in bed in no distress RESPIRATORY SYSTEM: Unlabored breathing , decreased breath sounds at bases HEART: S1 S2 regular rate and rhythm , ABDOMEN: Soft , no tenderness, purulent drainage in the FRANCESCA drain EXTREMITIES: No edema feet - Labs CBC & Chem 7: 12/02/22 07:56 12/02/22 07:56 Labs: Abnormal Lab Results - Last 24 Hours (Table) 0912/01/22 12/02/22 Range/Units 11:49 11:49 07:56 RBC (3.80-5.40) m/uL Hgb (11.4-16.0) gm/dL Hct (34.0-46.0) % MCV (80.0-100.0) fL MCHC (31.0-37.0) g/dL Sodium 131 L (137-145) mmol/L Chloride 97 L (98-107) mmol/L BUN 22 H (7-17) mg/dL Creatinine 5.10 H (0.52-1.04) mg/dL Plasma Lactic Acid Jame (0.7-2.0) mmol/L Calcium 7.7 L (8.4-10.2) mg/dL Phosphorus 5.5 H (2.5-4.5) mg/dL Procalcitonin 2.24 H (0.02-0.09) ng/mL Crossmatch See Detail 12/02/22 12/02/22 Range/Units 07:56 07:56 RBC 1.85 L (3.80-5.40) m/uL Hgb 5.7 L* (11.4-16.0) gm/dL Hct 18.5 L* (34.0-46.0) % MCV 100.1 H (80.0-100.0) fL MCHC 30.9 L (31.0-37.0) g/dL Sodium (137-145) mmol/L Chloride (98-107) mmol/L BUN (7-17) mg/dL Creatinine (0.52-1.04) mg/dL Plasma Lactic Acid Jame 0.5 L (0.7-2.0) mmol/L Calcium (8.4-10.2) mg/dL Phosphorus (2.5-4.5) mg/dL Procalcitonin (0.02-0.09) ng/mL Crossmatch Microbiology - Last 24 Hours (Table) 11/30/22 14:23 Gram Stain - Final Abdomen Wound Culture - Final Escherichia coli 11/30/22 11:55 Blood Culture - Preliminary Blood 11/30/22 11:40 Blood Culture - Preliminary Blood Assessment and Plan (1) Leukocytosis Current Visit: Yes Status: Acute Code(s): D72.829 - ELEVATED WHITE BLOOD CELL COUNT, UNSPECIFIED SNOMED Code(s): 695724107 (2) Intra-abdominal abscess Current Visit: No Status: Acute Code(s): K65.1 - PERITONEAL ABSCESS SNOMED Code(s): 82457318 Plan: 1patient presented to hospital with abdominal pain and more purulent drainage from the FRANCESCA drain drain high clinic suspicion for intra-abdominal abscess in this patient who did have a complicated history initially of PD catheter associated peritonitis subsequently did have a perforated diverticulitis and intra-abdominal abscess with bacteroids species failing outpatient or antibiotic therapy. 2CT abdominal pelvis did shows evidence of an abscess per discussion with the surgeon the FRANCESCA drain is inside the abscess cavity and no need for further drainage 4JP drain culture growing E. coli that is a sensitive pathogen patient to continue with the cefepime and Flagyl and monitor clinical course closely Mother at the bedside questions were answered Dictation was produced using [employer] dictation software. please excuse any grammatical, word or spelling errors. Time with Patient: Less than 30
--- NOTE | 2022-12-02 17:11 | P.PN ---
Subjective Progress Note Date: 12/02/22 42-year-old female with a past medical history significant for end-stage renal disease on hemodialysis presents to the ED for chief complaint of abdominal pain. Patient previously discharged from this facility on 11/23/22. Patient initially at this time presented for abdominal pain. Was on peritoneal dialysis at this time. Found to have peritonitis. Additionally, during her stay here had a perforation of sigmoid diverticulitis and patient is status post sigmoid colectomy and ostomy. Additionally has a right FRANCESCA drain in place. Was placed on Ceftin at discharge for 10 days and was supposed to follow up with Dr. Solomon and Dr. Blackburn on an outpatient basis. However, per patient's started to experience abdominal pain 2 days ago. Also notes a change in drainage at her FRANCESCA drain. States that drainage has become purulent and has become malodorous. Denies fever. Denies chest pain or shortness of breath. No other complaints. Last dialysis was on 11/28. Is due for dialysis today. -- Hemoglobin down to 6.2 this morning; we will transfuse with 1 unit packed RBCs; monitor H&H closely --CT of the abdomen is completed and results are pending 12/02/2022 the patient is seen and evaluated in room at bedside; remains to be afebrile, patient is breathing comfortably on room air , the patient denies any chest pain shortness of breath or cough abdominal pain has not decreased in intensity still have a purulent drainage in the FRANCESCA drain no vomiting. Patient white count is down to 9.4, hemoglobin is 5.7, creatinine is 5.10, FRANCESCA drainage culture growing E. coli that is sensitive pathogen; patient has 2 units packed RBCs ordered along with fresh frozen plasma patient presented to hospital with abdominal pain and more purulent drainage from the FRANCESCA drain drain high clinic suspicion for intra-abdominal abscess in this patient who did have a complicated history initially of PD catheter associated peritonitis subsequently did have a perforated diverticulitis and intra-abdominal abscess with bacteroids species failing outpatient or antibiotic therapy. CT abdominal pelvis did shows evidence of an abscess per discussion with the surgeon the FRANCESCA drain is inside the abscess cavity and no need for further drainage FRANCESCA drain culture growing E. coli that is a sensitive pathogen patient to continue with the cefepime and Flagyl and monitor clinical course closely Objective - Vital Signs Vital signs: Vital Signs Temp 98.7 F 12/02/22 15:47 Pulse 82 12/02/22 16:16 Resp 18 12/02/22 16:16 BP 163/92 12/02/22 16:16 Pulse Ox 99 12/02/22 15:56 FiO2 Intake & Output 12/01/22 12/02/22 12/02/22 18:59 06:59 18:59 Intake Total 1383 620 Output Total 2850 20 Balance -1467 -20 620 Weight 88.451 kg Intake: Oral 300 Blood Product 283 620 Ffp 24 Pher Acda Cnt2 0 Unit [id number] Rc As-1 Unit 310 [id number] Rc Irr As1 Unit 310 [id number] Rc Pheresis 2 As3 Unit 283 [id number] Hemodialysis 800 Output: Drainage 50 20 Right 50 20 Hemodialysis 2800 Other: # Voids 0 0 - Exam General appearance: alert, in no apparent distress Neck exam: Present: normal inspection Respiratory exam: Present: normal lung sounds bilaterally Cardiovascular Exam: Present: regular rate, normal rhythm GI/Abdominal exam: Present: soft (Incision sites are clean dry and intact with no surrounding warmth erythema. Ostomy covered with feces however appears pink, patent, and productive. FRANCESCA drain on the right side of the abdomen with purulent drainage.) Neurological exam: Present: alert, oriented X3 Skin exam: Present: warm, dry - Labs CBC & Chem 7: 12/02/22 07:56 12/02/22 07:56 Labs: Abnormal Lab Results - Last 24 Hours (Table) 12/01/22 12/01/22 12/02/22 Range/Units 11:49 11:49 07:56 RBC (3.80-5.40) m/uL Hgb (11.4-16.0) gm/dL Hct (34.0-46.0) % MCV (80.0-100.0) fL MCHC (31.0-37.0) g/dL Sodium 131 L (137-145) mmol/L Chloride 97 L (98-107) mmol/L BUN 22 H (7-17) mg/dL Creatinine 5.10 H (0.52-1.04) mg/dL Plasma Lactic Acid Jame (0.7-2.0) mmol/L Calcium 7.7 L (8.4-10.2) mg/dL Phosphorus 5.5 H (2.5-4.5) mg/dL Procalcitonin 2.24 H (0.02-0.09) ng/mL Crossmatch See Detail 12/02/22 12/02/22 Range/Units 07:56 07:56 RBC 1.85 L (3.80-5.40) m/uL Hgb 5.7 L* (11.4-16.0) gm/dL Hct 18.5 L* (34.0-46.0) % MCV 100.1 H (80.0-100.0) fL MCHC 30.9 L (31.0-37.0) g/dL Sodium (137-145) mmol/L Chloride (98-107) mmol/L BUN (7-17) mg/dL Creatinine (0.52-1.04) mg/dL Plasma Lactic Acid Jame 0.5 L (0.7-2.0) mmol/L Calcium (8.4-10.2) mg/dL Phosphorus (2.5-4.5) mg/dL Procalcitonin (0.02-0.09) ng/mL Crossmatch Microbiology - Last 24 Hours (Table) 11/30/22 11:55 Blood Culture - Preliminary Blood 11/30/22 11:40 Blood Culture - Preliminary Blood 11/30/22 14:23 Gram Stain - Final Abdomen Wound Culture - Final Escherichia coli Assessment and Plan Assessment: 1. Intra-abdominal abscess - Patient presenting with abdominal pain and purulent drainage from FRANCESCA drain - Patient does have history of recent PD catheter associated peritonitis along with perforated diverticulitis and intra-abdominal abscesses with bacteroid species - ID on board and patient has been placed on IV Zosyn and Flagyl - We will monitor CBC, CRP and pro-calcitonin - ID recommending CT of the abdomen possible need for abscess drainage 2. Acute on chronic anemia; no signs of bleeding; possibly related to chronic kidney disease/sepsis; we will monitor H&H closely and transfuse if hemoglobin is less than 7.0; PPI therapy; continue with Aranesp; sodium bicarbonate 650 mg twice a day 3. End-stage renal disease/hemodialysis; patient does state that Saturday, Saturday and Saturday via permacath; nephrology on board; patient is maintained on Renvela for mineral bone disease associated with CKD 4. Hypertension; hydralazine 25 mg 3 times a day, lisinopril 20 mg twice a day, metoprolol 50 mg twice a day DVT prophylaxis; SCDs CODE STATUS; full code
[2022-12-02] MEDS ORDERED: DESMOPRESSIN ACETATE 20 MCG in SODIUM CHLORIDE 0.9% 50 ML IVPB ONE (20:00)
[2022-12-02] MEDS: tiZANidine 4 MG TAB PO SCH (20:04)
[2022-12-03] MEDS: HYDROmorphone 1 MG/ML 1 ML SYRINGE IVP PRN ×2 (01:27→19:49)
[2022-12-03] MEDS: HYDROmorphone 0.5 MG/0.5 ML SYRINGE IVP PRN ×2 (06:29→13:55)
[2022-12-03 07:32] LABS: Anisocytosis Slight; Basophils % (A) 0 %; Eosinophils # (A) 0.2 k/uL (0-0.7); Eosinophils % (A) 2 %; HCT 22.3 % (34.0-46.0); Lymphocytes # (A) 0.7 k/uL (1.0-4.8); Lymphocytes % (A) 8 %; MCH 31.7 pg (25.0-35.0); Mean Platelet Volume 8.4; Monocytes # (A) 0.4 k/uL (0-1.0); Monocytes % (A) 4 %; Neutrophils % (A) 84 %; Platelet Count 260 k/uL (150-450); Poikilocytosis Slight; RBC 2.39 m/uL (3.80-5.40); RDW 18.7 % (11.5-15.5); WBC 9.5 k/uL (3.8-10.6)
[2022-12-03 07:41] LABS: HGB 7.6 gm/dL (11.4-16.0)
[2022-12-03 07:42] LABS: MCV 93.3 fL (80.0-100.0)
[2022-12-03] MEDS: SEVELAMER 800 MG TAB PO SCH ×3 (07:56→16:48)
[2022-12-03] MEDS: SIMETHICONE 80 MG CHEWABLE PO SCH ×3 (07:56→16:48)
[2022-12-03] MEDS: metroNIDAZOLE-NS PMX 500 MG in SALINE 1 100ML.BAG IVPB SCH ×2 (07:57→17:57)
[2022-12-03 08:08] LABS: African American GFR (CKD) 8 (>60 ml/min/1.73 sqM); Anion Gap 11 mmol/L; Blood Urea Nitrogen 32 mg/dL (7-17); Calcium 8.1 mg/dL (8.4-10.2); Carbon Dioxide 25 mmol/L (22-30); Chloride 95 mmol/L (98-107); Glucose 87 mg/dL (74-99); Non-African American GFR(CKD) 7 (>60 ml/min/1.73 sqM); Potassium 3.9 mmol/L (3.5-5.1); Sodium 131 mmol/L (137-145)
--- NOTE | 2022-12-03 10:55 | P.PN ---
Subjective Progress Note Date: 12/03/22 Principal diagnosis: She is getting hemodialysis. FRANCESCA purulent drainage. Repeat cultures. WBC normal. Monitor hgb 24 hrs for stability. Recommend IR consultation for any other drain able abscess prior to discharge. Keep FRANCESCA drain. IV antibiotics recommended for home pending Infectious disease recommendations. Objective - Vital Signs Vital signs: Vital Signs Temp 98.3 F 12/03/22 06:53 Pulse 76 12/03/22 06:53 Resp 18 12/03/22 09:10 BP 156/93 12/03/22 06:53 Pulse Ox 94 L 12/03/22 06:53 FiO2 Intake & Output 12/02/22 12/03/22 12/03/22 18:59 06:59 18:59 Intake Total 1243 Output Total 10 20 Balance 1233 -20 Weight 88.451 kg Intake: Oral 400 Blood Product 843 Ffp 24 Pher Acda Cnt2 223 Unit [id number] Rc As-1 Unit 310 [id number] Rc Irr As1 Unit 310 [id number] Output: Drainage 10 20 Right 10 20 Other: # Voids 0 0 - Labs CBC & Chem 7: 12/03/22 07:13 12/03/22 07:13 Labs: Abnormal Lab Results - Last 24 Hours (Table) 12/01/22 12/03/22 12/03/22 Range/Units 11:49 07:13 07:13 RBC 2.39 L (3.80-5.40) m/uL Hgb 7.6 L D (11.4-16.0) gm/dL Hct 22.3 L (34.0-46.0) % RDW 18.7 H (11.5-15.5) % Neutrophils # 8.0 H (1.3-7.7) k/uL Lymphocytes # 0.7 L (1.0-4.8) k/uL Sodium 131 L (137-145) mmol/L Chloride 95 L (98-107) mmol/L BUN 32 H (7-17) mg/dL Creatinine 6.44 H (0.52-1.04) mg/dL Calcium 8.1 L (8.4-10.2) mg/dL Crossmatch See Detail Microbiology - Last 24 Hours (Table) 11/30/22 11:55 Blood Culture - Preliminary Blood 11/30/22 11:40 Blood Culture - Preliminary Blood 11/30/22 14:23 Gram Stain - Final Abdomen Wound Culture - Final Escherichia coli
--- NOTE | 2022-12-03 11:00 | P.PN ---
Subjective Patient is seen in follow-up for end-stage renal disease. She is maintained on hemodialysis on Saturday schedule. Tolerating dialysis well. Hemoglobin improved post blood transfusion. Denies any active bleeding. Vital signs are stable. General: No acute distress. HEENT: Head exam is unremarkable. LUNGS: No audible rhonchi or wheezes. HEART: Rate and Rhythm are regular. ABDOMEN: Nontender. FRANCESCA drain noted. EXTREMITITES: No edema. Objective - Vital Signs Vital signs: Vital Signs Temp 98.3 F 12/03/22 06:53 Pulse 76 12/03/22 06:53 Resp 18 12/03/22 09:10 BP 156/93 12/03/22 06:53 Pulse Ox 94 L 12/03/22 06:53 FiO2 Intake & Output 12/02/22 12/03/22 12/03/22 18:59 06:59 18:59 Intake Total 1243 Output Total 10 20 Balance 1233 -20 Weight 88.451 kg Intake: Oral 400 Blood Product 843 Ffp 24 Pher Acda Cnt2 223 Unit [id number] Rc As-1 Unit 310 [id number] Rc Irr As1 Unit 310 [id number] Output: Drainage 10 20 Right 10 20 Other: # Voids 0 0 - Labs CBC & Chem 7: 12/03/22 07:13 12/03/22 07:13 Labs: Abnormal Lab Results - Last 24 Hours (Table) 12/01/22 12/03/22 12/03/22 Range/Units 11:49 07:13 07:13 RBC 2.39 L (3.80-5.40) m/uL Hgb 7.6 L D (11.4-16.0) gm/dL Hct 22.3 L (34.0-46.0) % RDW 18.7 H (11.5-15.5) % Neutrophils # 8.0 H (1.3-7.7) k/uL Lymphocytes # 0.7 L (1.0-4.8) k/uL Sodium 131 L (137-145) mmol/L Chloride 95 L (98-107) mmol/L BUN 32 H (7-17) mg/dL Creatinine 6.44 H (0.52-1.04) mg/dL Calcium 8.1 L (8.4-10.2) mg/dL Crossmatch See Detail Microbiology - Last 24 Hours (Table) 11/30/22 11:55 Blood Culture - Preliminary Blood 11/30/22 11:40 Blood Culture - Preliminary Blood 11/30/22 14:23 Gram Stain - Final Abdomen Wound Culture - Final Escherichia coli Assessment and Plan Plan: Assessment: 1. End-stage renal disease maintained on hemodialysis on Saturday schedule. 2. Perforated sigmoid diverticulitis status post surgery in October 2022. 3. Intra-abdominal abscess on IV antibiotics. Infectious disease and surgery following. Wound culture positive for E. coli. May need drainage of the abscess. 4. Hypertension with chronic kidney disease. Stable. 5. Anemia of chronic kidney disease maintained on Aranesp. Component of acute blood loss scheduled to receive blood transfusions today. Status post IV DDAVP 2 doses. 6. Chronic kidney disease mineral bone disease maintained on Renvela. Phosphorus 5.5 date 12/02/2022. 7. Hyponatremia secondary to chronic kidney disease. Improved postdialysis. Plan: Currently seen while undergoing hemodialysis. Next treatment on Saturday.
[2022-12-03] MEDS: SODIUM CHLORIDE 0.9% 1,000 ML IV SCH (11:44)
[2022-12-03] MEDS: METOPROLOL TARTRATE 50 MG TAB PO SCH ×2 (13:08→21:13)
[2022-12-03] MEDS: FAMOTIDINE 20 MG TAB PO SCH (13:08)
[2022-12-03] MEDS: lisinopriL 20 MG TAB PO SCH ×2 (13:08→21:13)
[2022-12-03] MEDS: hydrALAZINE HCL 25 MG TAB PO SCH ×3 (13:09→21:13)
[2022-12-03] MEDS: FOLIC ACID-VIT B COMPLEX-VIT C 1 CAP PO SCH (13:09)
[2022-12-03] MEDS: CEFEPIME 1 GM in SODIUM CHLORIDE 0.9% 50 ML IVPB SCH (13:19)
--- NOTE | 2022-12-03 17:05 | P.PN ---
Subjective Progress Note Date: 12/03/22 Principal diagnosis: Intra-abdominal abscess Patient is a 42-year-old female with a past medical history significant for end-stage renal disease was on peritoneal dialysis who was recently admitted to the hospital treated for PD catheter associated peritonitis outpatient culture positive for E. coli , subsequent CT did shows evidence of perforated diverticulitis for the patient did have laparotomy drainage of abdominal abscess and did have a diverting colostomy abdominal culture positive for bacteroid species, patient discharged home on oral Ceftin and Flagyl now presenting back to the hospital abdominal pain and purulent FRANCESCA drainage CT abdominal pelvis concerning for abscess. On today's evaluation that is 12/03/2022 the patient continues to be afebrile, patient is breathing comfortably on room air , the patient denies any chest pain shortness of breath or cough , the patient abdominal pain has decreased in intensity still have a purulent drainage in the FRANCESCA drain no vomiting. No new symptoms Patient white count is down to 9.5, hemoglobin is 7.6, creatinine is 6.44, FRANCESCA drainage culture growing E. coli that is sensitive pathogen Objective - Vital Signs Vital signs: Vital Signs Temp 98.3 F 12/03/22 06:53 Pulse 76 12/03/22 06:53 Resp 18 12/03/22 09:10 BP 156/93 12/03/22 06:53 Pulse Ox 94 L 12/03/22 06:53 FiO2 Intake & Output 12/02/22 12/03/22 12/03/22 18:59 06:59 18:59 Intake Total 1243 Output Total 10 20 Balance 1233 -20 Weight 88.451 kg Intake: Oral 400 Blood Product 843 Ffp 24 Pher Acda Cnt2 223 Unit [id number] Rc As-1 Unit 310 [id number] Rc Irr As1 Unit 310 [id number] Output: Drainage 10 20 Right 10 20 Other: # Voids 0 0 - Exam GENERAL DESCRIPTION: Middle-age female lying in bed in no distress RESPIRATORY SYSTEM: Unlabored breathing , decreased breath sounds at bases HEART: S1 S2 regular rate and rhythm , ABDOMEN: Soft , no tenderness, purulent drainage in the FRANCESCA drain EXTREMITIES: No edema feet - Labs CBC & Chem 7: 12/03/22 07:13 12/03/22 07:13 Labs: Abnormal Lab Results - Last 24 Hours (Table) 12/01/22 12/03/2212/03/23 Range/Units 11:49 07:13 07:13 RBC 2.39 L (3.80-5.40) m/uL Hgb 7.6 L D (11.4-16.0) gm/dL Hct 22.3 L (34.0-46.0) % RDW 18.7 H (11.5-15.5) % Neutrophils # 8.0 H (1.3-7.7) k/uL Lymphocytes # 0.7 L (1.0-4.8) k/uL Sodium 131 L (137-145) mmol/L Chloride 95 L (98-107) mmol/L BUN 32 H (7-17) mg/dL Creatinine 6.44 H (0.52-1.04) mg/dL Calcium 8.1 L (8.4-10.2) mg/dL Crossmatch See Detail Microbiology - Last 24 Hours (Table) 11/30/22 11:55 Blood Culture - Preliminary Blood 11/30/22 11:40 Blood Culture - Preliminary Blood 11/30/22 14:23 Gram Stain - Final Abdomen Wound Culture - Final Escherichia coli Assessment and Plan (1) Leukocytosis Current Visit: Yes Status: Acute Code(s): D72.829 - ELEVATED WHITE BLOOD CELL COUNT, UNSPECIFIED SNOMED Code(s): 620103513 (2) Intra-abdominal abscess Current Visit: No Status: Acute Code(s): K65.1 - PERITONEAL ABSCESS SNOMED Code(s): 93604261 Plan: 1patient presented to hospital with abdominal pain and more purulent drainage from the FRANCESCA drain drain high clinic suspicion for intra-abdominal abscess in this patient who did have a complicated history initially of PD catheter associated peritonitis subsequently did have a perforated diverticulitis and intra-abdominal abscess with bacteroids species failing outpatient or antibiotic therapy. 2CT abdominal pelvis did shows evidence of an abscess, and has been consulted for drainage of the subphrenic abscess culture should be obtained 4JP drain culture growing E. coli that is a sensitive pathogen 5-patient to continue with the cefepime and Flagyl and monitor clinical course closely Mother at the bedside questions were answered Dictation was produced using [employer] software. please excuse any grammatical, word or spelling errors. Time with Patient: Less than 30
[2022-12-03] MEDS: tiZANidine 4 MG TAB PO SCH (21:13)
[2022-12-04] MEDS: metroNIDAZOLE-NS PMX 500 MG in SALINE 1 100ML.BAG IVPB SCH ×4 (00:59→23:10)
[2022-12-04] MEDS: HYDROmorphone 1 MG/ML 1 ML SYRINGE IVP PRN ×3 (02:33→19:26)
--- NOTE | 2022-12-04 05:07 | P.PN ---
Subjective Progress Note Date: 12/03/22 42-year-old female with a past medical history significant for end-stage renal disease on hemodialysis presents to the ED for chief complaint of abdominal pain. Patient previously discharged from this facility on 11/23/22. Patient initially at this time presented for abdominal pain. Was on peritoneal dialysis at this time. Found to have peritonitis. Additionally, during her stay here had a perforation of sigmoid diverticulitis and patient is status post sigmoid colectomy and ostomy. Additionally has a right FRANCESCA drain in place. Was placed on Ceftin at discharge for 10 days and was supposed to follow up with Dr. Solomon and Dr. Blackburn on an outpatient basis. However, per patient's started to experience abdominal pain 2 days ago. Also notes a change in drainage at her FRANCESCA drain. States that drainage has become purulent and has become malodorous. Denies fever. Denies chest pain or shortness of breath. No other complaints. Last dialysis was on 11/28. Is due for dialysis today. -- Hemoglobin down to 6.2 this morning; we will transfuse with 1 unit packed RBCs; monitor H&H closely --CT of the abdomen is completed and results are pending 12/02/2022 the patient is seen and evaluated in room at bedside; remains to be afebrile, patient is breathing comfortably on room air , the patient denies any chest pain shortness of breath or cough abdominal pain has not decreased in intensity still have a purulent drainage in the FRANCESCA drain no vomiting. Patient white count is down to 9.4, hemoglobin is 5.7, creatinine is 5.10, FRANCESCA drainage culture growing E. coli that is sensitive pathogen; patient has 2 units packed RBCs ordered along with fresh frozen plasma patient presented to hospital with abdominal pain and more purulent drainage from the FRANCESCA drain drain high clinic suspicion for intra-abdominal abscess in this patient who did have a complicated history initially of PD catheter associated peritonitis subsequently did have a perforated diverticulitis and intra-abdominal abscess with bacteroids species failing outpatient or antibiotic therapy. CT abdominal pelvis did shows evidence of an abscess per discussion with the surgeon the FRANCESCA drain is inside the abscess cavity and no need for further drainage FRANCESCA drain culture growing E. coli that is a sensitive pathogen patient to continue with the cefepime and Flagyl and monitor clinical course closely 12/03/2022 Patient is seen and evaluated in follow-up this morning currently receiving hemodialysis and patient is maintained on Saturday/Saturday/Saturday schedule. Infectious disease along with general surgery also following and culture showing E. coli. General surgery recommending interventional radiology consult for possible drainage of the abdominal wound and will consult. No interventional radiology available today and will place for tomorrow. Patient also having a drop in hemoglobin and will consult hematology and appreciate input and recommendations. Patient is currently afebrile with no reports of chest pain or shortness of breath. Patient tolerating diet well will not eating very much. Patient will likely need to be nothing by mouth at midnight for possible interventional radiology evaluation. Review of systems: Constitutional: No reports of fatigue, fever, or chills Cardiovascular: No reports of chest pain or palpitations Respiratory: No reports of shortness of breath or cough GI: No reports of nausea, vomiting, or diarrhea : No reports of dysuria or retention Neurovascular: No reports of weakness or numbness All medications have been reviewed Physical exam: Gen: This is a 42-year-old female who is awake, alert and oriented 3, well- developed, well-nourished, obese HEENT: Head is atraumatic, normocephalic. Pupils equal, round. Sclerae is anicteric. NECK: Supple. No JVD. No lymphadenopathy. No thyromegaly. LUNGS: Clear to auscultation. No wheezes or rhonchi. No intercostal retractions. HEART: Regular rate and rhythm. No murmur. ABDOMEN: Soft. Bowel sounds are present. No masses. No tenderness. Incision sites are clean dry and intact and the ostomy with stool noted. FRANCESCA drain on the right with purulent drainage noted EXTREMITIES: No pedal edema. No calf tenderness. NEUROLOGICAL: Patient is awake, alert and oriented x3. Cranial nerves 2 through 12 are grossly intact. Assessment: -Intra-abdominal abscess history of PD catheter associated peritonitis along with perforated diverticulitis and intra-abdominal abscesses with bacteroids s pecies and failed outpatient therapy -Acute on chronic anemia; no signs of bleeding; possibly related to chronic kidney disease/sepsis -End-stage renal disease/hemodialysis; maintained on Saturday, Saturday and Saturday via permacath -Hypertension history -Obesity with BMI of 33.5 -DVT prophylaxis; SCDs -full code Plan: Patient is currently receiving hemodialysis with nephrology following be a perm acath and will continue on Saturday/Saturday/Saturday schedule General surgery following recommending interventional radiology consultation to assess for further need for drainage of abdominal abscess Infectious disease following with cultures growing E. coli and also recommending interventional radiology consultation to assess the abdominal abscess for the need for any further drainage is patient continues to have purulent drainage noted of the initial FRANCESCA drain Patient with anemia likely chronic and continues to have a drop in hemoglobin will consult hematology and appreciate input recommendations. Hemoglobin is above 7 today and recommended transfuse 7 or less Patient be nothing by mouth at midnight for possible interventional radiology interventions A.m. labs ordered Guarded prognosis The impression and plan of care has been dictated by Loly Flores, Nurse Practitioner as directed. Dr. Yolie MD I have performed a history and examination and MDM of this patient, discussed the same with the dictator, and agree with the dictator's assessment and plan as written ,documented as a scribe. Based on total visit time, I have performed more than 50% of the visit. Objective - Vital Signs Vital signs: Vital Signs Temp 98.3 F 12/03/22 06:53 Pulse 76 12/03/22 06:53 Resp 18 12/03/22 09:10 BP 156/93 12/03/22 06:53 Pulse Ox 94 L 12/03/22 06:53 FiO2 Intake & Output 12/02/22 12/03/22 12/03/22 18:59 06:59 18:59 Intake Total 1243 Output Total 10 20 Balance 1233 -20 Weight 88.451 kg Intake: Oral 400 Blood Product 843 Ffp 24 Pher Acda Cnt2 223 Unit [id number] Rc As-1 Unit 310 [id number] Rc Irr As1 Unit 310 [id number] Output: Drainage 10 20 Right 10 20 Other: # Voids 0 0 - Labs CBC & Chem 7: 12/03/22 07:13 12/03/22 07:13 Labs: Abnormal Lab Results - Last 24 Hours (Table) 12/01/22 12/03/22 12/03/22 Range/Units 11:49 07:13 07:13 RBC 2.39 L (3.80-5.40) m/uL Hgb 7.6 L D (11.4-16.0) gm/dL Hct 22.3 L (34.0-46.0) % RDW 18.7 H (11.5-15.5) % Neutrophils # 8.0 H (1.3-7.7) k/uL Lymphocytes # 0.7 L (1.0-4.8) k/uL Sodium 131 L (137-145) mmol/L Chloride 95 L (98-107) mmol/L BUN 32 H (7-17) mg/dL Creatinine 6.44 H (0.52-1.04) mg/dL Calcium 8.1 L (8.4-10.2) mg/dL Crossmatch See Detail Microbiology - Last 24 Hours (Table) 11/30/22 11:55 Blood Culture - Preliminary Blood 11/30/22 11:40 Blood Culture - Preliminary Blood 11/30/22 14:23 Gram Stain - Final Abdomen Wound Culture - Final Escherichia coli
[2022-12-04] MEDS: HYDROmorphone 0.5 MG/0.5 ML SYRINGE IVP PRN ×2 (06:56→12:34)
--- NOTE | 2022-12-04 08:00 | P.PN ---
Subjective Progress Note Date: 12/04/22 Principal diagnosis: Complains of new swelling along the right lower pannus. No erythema or cellulitis. FRANCESCA drain is purulent. Per discussion with infectious disease, may benefit from evaluation with interventional radiology for drainage of additional non-communicating peritoneal abscess. May need another CT for follow up pending IR consultation. Recheck WBC and HGb Objective - Vital Signs Vital signs: Vital Signs Temp 98.4 F 12/04/22 07:35 Pulse 75 12/04/22 07:35 Resp 20 12/04/22 07:35 BP 181/99 12/04/22 07:35 Pulse Ox 95 12/04/22 07:35 FiO2 Intake & Output 12/03/22 12/04/22 12/04/22 18:59 06:59 18:59 Intake Total 950 Output Total 4100 20 Balance -3150 -20 Intake: Oral 100 Hemodialysis 850 Output: Drainage 20 Right 20 Urine 0 0 Stool 600 Hemodialysis 3500 Other: # Voids 0 - Labs CBC & Chem 7: 12/03/22 07:13 12/03/22 07:13 Labs: Abnormal Lab Results - Last 24 Hours (Table) 12/03/22 Range/Units 07:13 Sodium 131 L (137-145) mmol/L Chloride 95 L (98-107) mmol/L BUN 32 H (7-17) mg/dL Creatinine 6.44 H (0.52-1.04) mg/dL Calcium 8.1 L (8.4-10.2) mg/dL Microbiology - Last 24 Hours (Table) 11/30/22 11:55 Blood Culture - Preliminary Blood 11/30/22 11:40 Blood Culture - Preliminary Blood
--- NOTE | 2022-12-04 09:49 | P.PN ---
Subjective Patient is seen in follow-up for end-stage renal disease. She is maintained on hemodialysis on Saturday schedule. No problems with dialysis yesterday. Hemoglobin improved post blood transfusion. Denies any active bleeding. No active complaints. Vital signs are stable. General: No acute distress. HEENT: Head exam is unremarkable. LUNGS: No audible rhonchi or wheezes. HEART: Rate and Rhythm are regular. ABDOMEN: Nontender. FRANCESCA drain noted. EXTREMITITES: No edema. Objective - Vital Signs Vital signs: Vital Signs Temp 98.4 F 12/04/22 07:35 Pulse 75 12/04/22 07:35 Resp 20 12/04/22 07:35 BP 181/99 12/04/22 07:35 Pulse Ox 95 12/04/22 07:35 FiO2 Intake & Output 12/03/22 12/04/22 12/04/22 18:59 06:59 18:59 Intake Total 950 Output Total 4100 20 Balance -3150 -20 Intake: Oral 100 Hemodialysis 850 Output: Drainage 20 Right 20 Urine 0 0 Stool 600 Hemodialysis 3500 Other: # Voids 0 - Labs CBC & Chem 7: 12/03/22 07:13 12/03/22 07:13 Labs: Microbiology - Last 24 Hours (Table) 11/30/22 11:55 Blood Culture - Preliminary Blood 11/30/22 11:40 Blood Culture - Preliminary Blood Assessment and Plan Plan: Assessment: 1. End-stage renal disease maintained on hemodialysis on Saturday schedule. 2. Perforated sigmoid diverticulitis status post surgery in October 2022. 3. Intra-abdominal abscess on IV antibiotics. Infectious disease and surgery following. Wound culture positive for E. coli. May need drainage of the abscess. 4. Hypertension with chronic kidney disease. Stable. 5. Anemia of chronic kidney disease maintained on Aranesp. Component of acute blood loss scheduled to receive blood transfusions today. Status post IV DDAVP 2 doses. 6. Chronic kidney disease mineral bone disease maintained on Renvela. Phosphorus 5.5 date 12/02/2022. 7. Hyponatremia secondary to chronic kidney disease. Improved postdialysis. Plan: Hemodialysis tomorrow.
--- NOTE | 2022-12-04 09:58 | US ---
EXAMINATION TYPE: US abdomen limited DATE OF EXAM: 12/04/2022 COMPARISON: CT CLINICAL INDICATION: Female, 42 years old with history of abscess; Possible RUQ abscess TECHNIQUE: RUQ FINDINGS: Possible visualization of CT suggested abscess within RUQ at inferior margin of right lobe of liver adjacent to GB= 2.0 x 1.4. cholelithiasis IMPRESSION: 1. Small fluid collection seen adjacent to the liver. 2. Incidental note made of cholelithiasis.
[2022-12-04] MEDS: SODIUM CHLORIDE 0.9% 1,000 ML IV SCH ×2 (10:28→23:11)
[2022-12-04] MEDS: SIMETHICONE 80 MG CHEWABLE PO SCH ×3 (11:20→16:49)
[2022-12-04] MEDS: METOPROLOL TARTRATE 50 MG TAB PO SCH ×2 (11:20→18:57)
[2022-12-04] MEDS: FAMOTIDINE 20 MG TAB PO SCH (11:20)
[2022-12-04] MEDS: hydrALAZINE HCL 25 MG TAB PO SCH ×3 (11:20→20:51)
[2022-12-04] MEDS: SEVELAMER 800 MG TAB PO SCH ×3 (11:21→16:49)
[2022-12-04] MEDS: lisinopriL 20 MG TAB PO SCH ×2 (11:21→18:57)
[2022-12-04] MEDS: CEFEPIME 1 GM in SODIUM CHLORIDE 0.9% 50 ML IVPB SCH (11:21)
[2022-12-04 11:29] LABS: Basophils # (A) 0.05 X 10*3/uL (0.00-0.10); Basophils % (A) 0.5 %; Eosinophils # (A) 0.26 X 10*3/uL (0.04-0.35); Eosinophils % (A) 2.6 %; HCT 22.2 % (37.2-46.3); HGB 7.2 d/dL (12.0-15.0); Lymphocytes # (A) 1.22 X 10*3/uL (0.90-5.00); MCH 30.9 pg (27.0-32.0); MCHC 32.4 d/dL (32.0-37.0); MCV 95.3 FL (80.0-97.0); Mean Platelet Volume 9.5 FL (9.5-12.2); Monocytes # (A) 0.73 X 10*3/uL (0.20-1.00); Monocytes % (A) 7.2 %; NRBC Per 100 WBC 0 X 10*3/uL (0.00-0.01); Neutrophils # (A) 7.87 X 10*3/uL (1.80-7.70); Neutrophils % (A) 77.1 %; Platelet Count 263 X 10*3/uL (140-440); RBC 2.33 X 10*6/uL (4.10-5.20); RDW 18.6 % (11.5-14.5); WBC 10.19 X 10*3/uL (4.50-10.00)
[2022-12-04 11:37] LABS: ALT 11 U/L (8-44); AST 16 U/L (13-35); Albumin 2.8 d/dL (3.8-4.9); Albumin/Globulin Ratio 1.08 Ratio (1.60-3.17); Alkaline Phosphatase 70 U/L (41-126); Blood Urea Nitrogen 19.4 mg/dL (9.0-27.0); Calcium 8.3 mg/dL (8.7-10.3); Carbon Dioxide 26.2 mmol/L (21.6-31.8); Chloride 96 mmol/L (96-109); Globulin 2.6 d/dL (1.6-3.3); Glucose 90 mg/dL (70-110); Potassium 3.9 mmol/L (3.5-5.5); Sodium 135 mmol/L (135-145); Total Bilirubin 0.2 mg/dL (0.3-1.2); Total Protein 5.4 d/dL (6.2-8.2)
[2022-12-04] MEDS: FOLIC ACID-VIT B COMPLEX-VIT C 1 CAP PO SCH (11:40)
--- NOTE | 2022-12-04 12:47 | US ---
EXAMINATION TYPE: US abdomen limited DATE OF EXAM: 12/04/2022 COMPARISON: CT CLINICAL INDICATION: Female, 42 years old with history of right lower quadrant pain; FLuid check near drainage tube within RLQ TECHNIQUE: RLQ. Limited scanning surrounding the surgical drainage catheter and right lower quadrant . FINDINGS: No fluid collection visualized within RLQ near drainage tube Diffuse subcutaneous edema. IMPRESSION: No sizable fluid collection noted by ultrasound.
--- NOTE | 2022-12-04 12:48 | US ---
EXAM: US guided abscess localization DATE OF EXAM: 12/04/2022 12:39 PM COMPARISON STUDIES: Ultrasound 12/04/2022, CT scan 11/30/2022 PATIENT HISTORY: Postoperative change with recent CT scan suggesting small subhepatic fluid collectio n. FINDINGS: Procedure was discussed with the patient, risks, indications benefits and alternatives wer e discussed. Any questions were answered. Informed consent was obtained. Patient is placed supine on the ultrasound table prepped and draped in usual sterile fashion. An 18-gauge needle was placed in th e small thin fluid collection along the lower margin of the liver. Approximately 1 cc of fluid was as pirated and sent to pathology for analysis. Patient was stable throughout the procedure and stable fo r discharge. IMPRESSION: 1. Ultrasound-guided aspirate sent to pathology for analysis.
[2022-12-04 13:30] LABS: Reticulocyte % 1.4 % (0.5-2.0)
[2022-12-04 13:56] LABS: Albumin 2.8 g/dL (3.5-5.0); Albumin/Globulin Ratio 0.9; Globulin 3.1 g/dL; Glucose 94 mg/dL (74-99); Total Protein 5.9 g/dL (6.3-8.2)
[2022-12-04 13:58] LABS: ALT 14 U/L (4-34); AST 22 U/L (14-36); African American GFR (CKD) 11 (>60 ml/min/1.73 sqM); Alkaline Phosphatase 81 U/L (38-126); Anion Gap 10 mmol/L; Blood Urea Nitrogen 24 mg/dL (7-17); Calcium 8.2 mg/dL (8.4-10.2); Carbon Dioxide 26 mmol/L (22-30); Chloride 96 mmol/L (98-107); Non-African American GFR(CKD) 9 (>60 ml/min/1.73 sqM); Potassium 3.9 mmol/L (3.5-5.1); Sodium 132 mmol/L (137-145); Total Bilirubin 0.5 mg/dL (0.2-1.3)
--- NOTE | 2022-12-04 15:00 | P.CONS ---
History of Present Illness - Reason for Consult Consult date: 12/04/22 anemia Requesting physician: Loly Flores - Chief Complaint abdominal pain - History of Present Illness Patient is a 42 year old female with a significant history of FGFS, ESRD on peritoneal dialysis. We were consulted for anemia. Patient was discharged 1 week ago for perforated sigmoid diverticulitis with sepsis and descending colostomy. She was discharged on oral antibiotics. She reports she has been experiencing increased drainage with purulent discharge from her FRANCESCA drain. Pt also reports she was experiencing increased abdominal pain. Denies n/v, fever and chills. Upon admission her hemoglobin was noted at 6.2 and subsequently received 1 unit of PRBCs. Hemoglobin the following day was 5.7. Patient received 2 additional units of PRBCs and 2 units of FFP. Hemoglobin 7.2 today. Platelets 263,000. She denies blood in stool and melena. Patient currently receiving hemodialysis inpatient. Nephrology following. Upon admission CT abdomen pelvis revealed post laparotomy changes. Prominent fat stranding could represent postoperative inflammation vs cellulitis. Small residual peritoneal abscess along the right flank of the inferior margin of the right liver lobe measuring 6.6 x 5.2 x 1.5 cm. Small focus of free air below the right hemidiaphragm. And generalized anasarca changes/third spacing. General surgery following. Consult placed to IR for possible I&D of abscess. Blood cultures negative thus far. Wound culture positive for Escherichia coli. Patient is being treated with cefepime and Flagyl. Patient remains afebrile. Review of Systems 10 point ROS is negative except as stated in the HPI 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., SWOLLEN OPTICAL NERVE & RETINA , STATES VISION BLURRED AT TIMES., PSEUDO TUMOR BRAIN., HX GOUT, ANEMIA, KIDNEY FAILURE.-HAS DIALYSIS CATHETER AND RECEIVING HEMODIALYSIS MO-SAT-SAT. HX FSGS (FOCAL SEGMENTAL GLOMERULOSCLEROSIS) History of Any Multi-Drug Resistant Organisms: None Reported Past Surgical History: Section Additional Past Surgical History / Comment(s): PD catheter 01/27/2019, abdominal surgeries in october 2022 Past Anesthesia/Blood Transfusion Reactions: No Reported Reaction Past Psychological History: Anxiety Smoking Status: Former smoker Past Alcohol Use History: Occasional Past Drug Use History: Marijuana - Past Family History Father Family Medical History: Myocardial Infarction ([place]) Additional Family Medical History / Comment(s): FATHER AT AGE 35 OF MASSIVE HEART ATTACK Mother Family Medical History: Cancer, Deep Vein Thrombosis (DVT) Additional Family Medical History / Comment(s): SKIN CANCER Medications and Allergies Home Medications Medication Instructions Recorded Confirmed Type Metoprolol Tartrate [Lopressor] 50 mg PO BID 11/11/21 11/30/22 History Renaplex-D 1 tab PO DAILY 11/11/21 11/30/22 History Velphoro 500mg Chewable Tab 1,000 mg PO TID-W/MEALS 11/02/22 11/30/22 History Velphoro 500mg Chewable Tab 500 mg PO DAILY PRN 11/02/22 11/30/22 History lisinopriL [Zestril] 20 mg PO BID 11/02/22 11/30/22 History Darbepoetin Shahram [Aranesp] 100 mcg SQ Q7D #4 each 11/23/22 11/30/22 Rx Famotidine [Pepcid] 20 mg PO DAILY #30 tablet 11/23/22 11/30/22 Rx Ondansetron [Zofran] 4 mg PO Q8HR PRN #20 tab 11/23/22 11/30/22 Rx Simethicone Chew [Mylicon Chew] 160 mg PO TID #40 tab 11/23/22 11/30/22 Rx Sodium Bicarbonate Tab 650 mg PO BID #60 tab 11/23/22 11/30/22 Rx cefUROXime axetiL [Ceftin] 500 mg PO BID 10 Days #20 tab 11/23/22 11/30/22 Rx hydrALAZINE HCL [Apresoline] 50 mg PO TID #90 tab 11/23/22 11/30/22 Rx metroNIDAZOLE [Flagyl] 500 mg PO TID 10 Days #30 tab 11/23/22 11/30/22 Rx tiZANidine HCL [Zanaflex] 4 mg PO HS 11/30/22 11/30/22 History Allergies Allergy/AdvReac Type Severity Reaction Status Date / Time Pertussis Vaccines Allergy Unknown Verified 11/30/22 16:54 iron AdvReac Severe Nausea & Verified 11/30/22 16:54 Vomiting & Diarrhea ciprofloxacin [From Cipro] AdvReac UNCONTROLLABLE Verified 11/30/22 16:54 EMOTIONS PER PT Physical Exam Vitals: Vital Signs Temp Pulse Resp BP Pulse Ox 12/04/22 13:44 98.0 F 68 16 185/94 95 12/04/22 07:35 98.4 F 75 20 181/99 95 12/04/22 00:10 98.0 F 74 18 152/72 97 12/03/22 19:10 98.5 F 79 18 169/87 97 Intake and Output 12/03/22 12/04/22 12/04/22 22:59 06:59 14:59 Intake Total 100 Output Total 600 20 Balance -500 -20 Intake: Oral 100 Output: Drainage 20 Right 20 Urine 0 0 Stool 600 Other: # Voids 0 - Constitutional General appearance: average body habitus, no acute distress - EENT Eyes: anicteric sclerae, EOMI ENT: hearing grossly normal - Neck Neck: no lymphadenopathy - Respiratory Respiratory: bilateral: CTA - Cardiovascular Rhythm: regular Heart sounds: normal: S1, S2 Abnormal Heart Sounds: no systolic murmur, no diastolic murmur, no rub, no S3 Gallop, no S4 Gallop, no click, no other - Gastrointestinal ostomy in situ General gastrointestinal: soft, no tenderness - Integumentary Integumentary: no cyanotic, pale - Neurologic grossly intact - Musculoskeletal Musculoskeletal: strength equal bilaterally - Psychiatric Psychiatric: A&O x's 3, appropriate affect, intact judgment & insight Results CBC & Chem 7: 12/04/22 06:48 12/04/22 13:09 Labs: Abnormal Lab Results - Last 24 Hours (Table) 12/04/22 12/04/22 12/04/22 Range/Units 06:48 06:48 13:09 WBC 10.19 H (4.50-10.00) X 10*3/uL RBC 2.33 L (4.10-5.20) X 10*6/uL Hgb 7.2 L (12.0-15.0) d/dL Hct 22.2 L (37.2-46.3) % RDW 18.6 H (11.5-14.5) % Neutrophils # 7.87 H (1.80-7.70) X 10*3/uL Sodium 132 L (137-145) mmol/L Chloride 96 L (98-107) mmol/L Anion Gap 12.80 H (4.00-12.00) mmol/L BUN 24 H (7-17) mg/dL Creatinine 5.1 H 5.22 H (0.6-1.5) mg/dL Est GFR (CKD-EPI) 10 L (>=60) BUN/Creatinine Ratio 3.80 L (12.00-20.00) Ratio Calcium 8.3 L 8.2 L (8.7-10.3) mg/dL Total Bilirubin 0.2 L (0.3-1.2) mg/dL Total Protein 5.4 L 5.9 L (6.2-8.2) d/dL Albumin 2.8 L 2.8 L (3.8-4.9) d/dL Albumin/Globulin Ratio 1.08 L (1.60-3.17) Ratio Microbiology - Last 24 Hours (Table) 11/30/22 11:55 Blood Culture - Preliminary Blood 11/30/22 11:40 Blood Culture - Preliminary Blood CT scan - abdomen: report reviewed CT scan - pelvis: report reviewed Assessment and Plan (1) Anemia Current Visit: Yes Status: Acute Priority: High Code(s): D64.9 - ANEMIA, UNSPECIFIED SNOMED Code(s): 871167671 (2) Chronic renal failure Current Visit: Yes Status: Acute Priority: High Code(s): N18.9 - CHRONIC KIDNEY DISEASE, UNSPECIFIED SNOMED Code(s): 25739932 (3) Abdominal pain Current Visit: Yes Status: Acute Priority: High Code(s): R10.9 - UNSPECIFIED ABDOMINAL PAIN SNOMED Code(s): 57385848 Plan: Anemia: -Upon trending labs, anemia noted since 2019, typically in 7-8 range -Pt denies having to receive blood transfusions prior to last admission -Upon admission her hemoglobin was noted at 6.2 and subsequently received 1 unit of PRBCs. Hemoglobin the following day was 5.7. Patient received 2 additional units of PRBCs and 2 units of FFP. Hemoglobin 7.2 today. -Denies any acute episodes of bleeding -Anemia workup ordered to r/o any nutritional deficiencies. Hemolysis workup ordered -Anemia likely secondary to ESRD superimposed by acute infection/inflammation. Would expect counts to improve as patient acutely recovers -Will continue to monitor. Please transfuse for hemoglobin less than 7 Peritoneal abscess: -Small residual peritoneal abscess along the right flank of the inferior margin of the right liver lobe measuring 6.6 x 5.2 x 1.[address] AP -General surgery following. Consult placed to IR for possible I&D of abscess. Blood cultures negative thus far. Wound culture positive for Escherichia coli. Patient is being treated with cefepime and Flagyl. Patient remains afebrile. ESRD: -Nephrology following -[facility] hemod[facility] Att[facility]: I have seen and examined pt, performed H&P, developed impression and plan of care. Discussed with dictator. Agree with documentation, dictated as a scribe
[2022-12-04] MEDS: tiZANidine 4 MG TAB PO SCH (20:51)
[2022-12-04 21:26] LABS: % Iron Saturation 19.85 (12.00-45.00)
[2022-12-05] MEDS: HYDROmorphone 1 MG/ML 1 ML SYRINGE IVP PRN ×4 (01:17→23:45)
--- NOTE | 2022-12-05 05:12 | P.PN ---
Subjective Progress Note Date: 12/04/22 42-year-old female with a past medical history significant for end-stage renal disease on hemodialysis presents to the ED for chief complaint of abdominal pain. Patient previously discharged from this facility on 11/23/22. Patient initially at this time presented for abdominal pain. Was on peritoneal dialysis at this time. Found to have peritonitis. Additionally, during her stay here had a perforation of sigmoid diverticulitis and patient is status post sigmoid colectomy and ostomy. Additionally has a right FRANCESCA drain in place. Was placed on Ceftin at discharge for 10 days and was supposed to follow up with Dr. Solomon and Dr. Blackburn on an outpatient basis. However, per patient's started to experience abdominal pain 2 days ago. Also notes a change in drainage at her FRANCESCA drain. States that drainage has become purulent and has become malodorous. Denies fever. Denies chest pain or shortness of breath. No other complaints. Last dialysis was on 11/28. Is due for dialysis today. -- Hemoglobin down to 6.2 this morning; we will transfuse with 1 unit packed RBCs; monitor H&H closely --CT of the abdomen is completed and results are pending 12/02/2022 the patient is seen and evaluated in room at bedside; remains to be afebrile, patient is breathing comfortably on room air , the patient denies any chest pain shortness of breath or cough abdominal pain has not decreased in intensity still have a purulent drainage in the FRANCESCA drain no vomiting. Patient white count is down to 9.4, hemoglobin is 5.7, creatinine is 5.10, FRANCESCA drainage culture growing E. coli that is sensitive pathogen; patient has 2 units packed RBCs ordered along with fresh frozen plasma patient presented to hospital with abdominal pain and more purulent drainage from the FRANCESCA drain drain high clinic suspicion for intra-abdominal abscess in this patient who did have a complicated history initially of PD catheter associated peritonitis subsequently did have a perforated diverticulitis and intra-abdominal abscess with bacteroids species failing outpatient or antibiotic therapy. CT abdominal pelvis did shows evidence of an abscess per discussion with the surgeon the FRANCESCA drain is inside the abscess cavity and no need for further drainage FRANCESCA drain culture growing E. coli that is a sensitive pathogen patient to continue with the cefepime and Flagyl and monitor clinical course closely 12/03/2022 Patient is seen and evaluated in follow-up this morning currently receiving hemodialysis and patient is maintained on Saturday/Saturday/Saturday schedule. Infectious disease along with general surgery also following and culture showing E. coli. General surgery recommending interventional radiology consult for possible drainage of the abdominal wound and will consult. No interventional radiology available today and will place for tomorrow. Patient also having a drop in hemoglobin and will consult hematology and appreciate input and recommendations. Patient is currently afebrile with no reports of chest pain or shortness of breath. Patient tolerating diet well will not eating very much. Patient will likely need to be nothing by mouth at midnight for possible interventional radiology evaluation. 12/04/2022 Patient is seen and evaluated today with multiple medical consultations following. A patient is nothing by mouth and being evaluated by interventional radiology for evaluation of additional abscess and need for drainage. Initially ultrasound noted that the abscess was significantly smaller with no area for drainage noted. Upon further evaluation with ultrasound Dr. Rogers was able to aspirate a small amount of fluid for analysis which was sent. Patient is continued on antibiotics with infectious disease following closely. Patient will receive another session of hemodialysis tomorrow. Patient will likely need IV antibiotics per infectious disease and general surgery and awaiting finalized cultures and verifying with IV antibiotics are covered per case management. Patient is afebrile with no reports of chest pain or shortness of breath. Tolerating diet with no reported nausea or vomiting. Review of systems: Constitutional: No reports of fatigue, fever, or chills Cardiovascular: No reports of chest pain or palpitations Respiratory: No reports of shortness of breath or cough GI: No reports of nausea, vomiting, or diarrhea : No reports of dysuria or retention Neurovascular: No reports of weakness or numbness All medications have been reviewed Physical exam: Gen: This is a 42-year-old female who is awake, alert and oriented 3, well- developed, well-nourished, obese HEENT: Head is atraumatic, normocephalic. Pupils equal, round. Sclerae is anicteric. NECK: Supple. No JVD. No lymphadenopathy. No thyromegaly. LUNGS: Clear to auscultation. No wheezes or rhonchi. No intercostal retractions. HEART: Regular rate and rhythm. No murmur. ABDOMEN: Soft. Bowel sounds are present. No masses. No tenderness. Incision sites are clean dry and intact and the ostomy with stool noted. FRANCESCA drain on the right with purulent drainage noted EXTREMITIES: No pedal edema. No calf tenderness. NEUROLOGICAL: Patient is awake, alert and oriented x3. Cranial nerves 2 through 12 are grossly intact. Assessment: -Intra-abdominal abscess history of PD catheter associated peritonitis along with perforated diverticulitis and intra-abdominal abscesses with bacteroids species and failed outpatient therapy -Acute on chronic anemia; no signs of bleeding; likely related to chronic kidney disease/sepsis, present on admission -End-stage renal disease/hemodialysis; maintained on Saturday, Saturday and Saturday via permacath -Hypertension history -Obesity with BMI of 33.5 -DVT prophylaxis; SCDs -full code Plan: Patient is currently maintained on hemodialysis with nephrology following and will continue on Saturday/Saturday/Saturday schedule General surgery following recommending interventional radiology consultation to assess for further need for drainage of abdominal abscess. Initially interventional radiology reported was able to obtain any aspiration as the abscess has significantly cone-down in size. Upon further evaluation with ultrasound Dr. Rogers was able to aspirate a small amount of fluid to be sent for analysis Infectious disease following with cultures growing E. coli. Awaiting finalized cultures to determine discharge antibiotics if patient will require IV access and if this is a covered benefit through her insurance versus receiving antibiotics with dialysis Patient with anemia likely chronic and continues to have a drop in hemoglobin have consulted hematology and appreciate input recommendations. Anemia workup underway. Hemoglobin is above 7 today and recommended transfuse 7 or less A.m. labs ordered and patient to receive hemodialysis tomorrow again Due to multiple complex medical issues, prognosis is guarded The impression and plan of care has been dictated by Loly Flores, Nurse Practitioner as directed. Dr. Salvatore MD I have performed a history and examination and MDM of this patient, discussed the same with the dictator, and agree with the dictator's assessment and plan as written ,documented as a scribe. Based on total visit time, I have performed more than 50% of the visit. Objective - Vital Signs Vital signs: Vital Signs Temp 98.0 F 12/04/22 13:44 Pulse 68 12/04/22 13:44 Resp 16 12/04/22 13:44 BP 185/94 12/04/22 13:44 Pulse Ox 95 12/04/22 13:44 FiO2 Intake & Output 12/03/22 12/04/22 12/04/22 18:59 06:59 18:59 Intake Total 950 Output Total 4100 20 Balance -3150 -20 Intake: Oral 100 Hemodialysis 850 Output: Drainage 20 Right 20 Urine 0 0 Stool 600 Hemodialysis 3500 Other: # Voids 0 0 - Labs CBC & Chem 7: 12/04/22 06:48 12/04/22 13:09 Labs: Abnormal Lab Results - Last 24 Hours (Table) 12/04/22 12/04/22 12/04/22 Range/Units 06:48 06:48 13:09 WBC 10.19 H (4.50-10.00) X 10*3/uL RBC 2.33 L (4.10-5.20) X 10*6/uL Hgb 7.2 L (12.0-15.0) d/dL Hct 22.2 L (37.2-46.3) % RDW 18.6 H (11.5-14.5) % Neutrophils # 7.87 H (1.80-7.70) X 10*3/uL Haptoglobin (31.2-198.0) mg/dL Sodium (137-145) mmol/L Chloride (98-107) mmol/L Anion Gap 12.80 H (4.00-12.00) mmol/L BUN (7-17) mg/dL Creatinine 5.1 H (0.6-1.5) mg/dL Est GFR (CKD-EPI) 10 L (>=60) BUN/Creatinine Ratio 3.80 L (12.00-20.00) Ratio Calcium 8.3 L (8.7-10.3) mg/dL Total Bilirubin 0.2 L (0.3-1.2) mg/dL Total Protein 5.4 L (6.2-8.2) d/dL Albumin 2.8 L (3.8-4.9) d/dL Albumin/Globulin Ratio 1.08 L (1.60-3.17) Ratio Folate 35.30 H (4.40-31.00) ng/mL 12/04/22 12/04/22 Range/Units 13:09 13:09 WBC (4.50-10.00) X 10*3/uL RBC (4.10-5.20) X 10*6/uL Hgb (12.0-15.0) d/dL Hct (37.2-46.3) % RDW (11.5-14.5) % Neutrophils # (1.80-7.70) X 10*3/uL Haptoglobin 531.0 H (31.2-198.0) mg/dL Sodium 132 L (137-145) mmol/L Chloride 96 L (98-107) mmol/L Anion Gap (4.00-12.00) mmol/L BUN 24 H (7-17) mg/dL Creatinine 5.22 H (0.6-1.5) mg/dL Est GFR (CKD-EPI) (>=60) BUN/Creatinine Ratio (12.00-20.00) Ratio Calcium 8.2 L (8.7-10.3) mg/dL Total Bilirubin (0.3-1.2) mg/dL Total Protein 5.9 L (6.2-8.2) d/dL Albumin 2.8 L (3.8-4.9) d/dL Albumin/Globulin Ratio (1.60-3.17) Ratio Folate (4.40-31.00) ng/mL Microbiology - Last 24 Hours (Table) 11/30/22 11:55 Blood Culture - Preliminary Blood 11/30/22 11:40 Blood Culture - Preliminary Blood
[2022-12-05 05:18] LABS: Appearance,BF Blood Tinged (Clear)
[2022-12-05] MEDS: METOPROLOL TARTRATE 50 MG TAB PO SCH ×2 (06:46→20:15)
[2022-12-05] MEDS: hydrALAZINE HCL 25 MG TAB PO SCH (06:46)
[2022-12-05] MEDS: lisinopriL 20 MG TAB PO SCH ×2 (06:46→20:15)
[2022-12-05] MEDS ORDERED: hydrALAZINE HCL 50 MG TAB PO STA (06:55)
[2022-12-05 07:42] LABS: Anisocytosis Slight; Basophils % (A) 0 %; Eosinophils # (A) 0.3 k/uL (0-0.7); Eosinophils % (A) 3 %; HCT 20.6 % (34.0-46.0); Lymphocytes # (A) 1.2 k/uL (1.0-4.8); Lymphocytes % (A) 12 %; MCH 31.6 pg (25.0-35.0); MCHC 33.6 g/dL (31.0-37.0); MCV 94.3 fL (80.0-100.0); Mean Platelet Volume 7.7; Monocytes # (A) 0.5 k/uL (0-1.0); Monocytes % (A) 5 %; Neutrophils # (A) 7.7 k/uL (1.3-7.7); Neutrophils % (A) 77 %; Platelet Count 269 k/uL (150-450); RBC 2.18 m/uL (3.80-5.40); RDW 17.8 % (11.5-15.5)
[2022-12-05 07:56] LABS: HGB 6.9 gm/dL (11.4-16.0)
--- NOTE | 2022-12-05 08:49 | P.PN ---
Subjective Progress Note Date: 12/04/22 Principal diagnosis: Intra-abdominal abscess Patient is a 42-year-old female with a past medical history significant for end-stage renal disease was on peritoneal dialysis who was recently admitted to the hospital treated for PD catheter associated peritonitis outpatient culture positive for E. coli , subsequent CT did shows evidence of perforated diverticulitis for the patient did have laparotomy drainage of abdominal abscess and did have a diverting colostomy abdominal culture positive for bacteroid species, patient discharged home on oral Ceftin and Flagyl now presenting back to the hospital abdominal pain and purulent FRANCESCA drainage CT abdominal pelvis concerning for abscess. On today's evaluation that is 12/04/2022 patient remains to be afebrile the patient is breathing comfortably no chest pain shortness of breath or cough no nausea vomiting abdominal pain has decreased in intensity. The patient white count is 10.19 creatinine is 5.1 abdominal cultures E. coli blood culture negative Objective - Vital Signs Vital signs: Vital Signs Temp 98.4 F 12/04/22 07:35 Pulse 75 12/04/22 07:35 Resp 20 12/04/22 07:35 BP 181/99 12/04/22 07:35 Pulse Ox 95 12/04/22 07:35 FiO2 Intake & Output 12/03/22 12/04/22 12/04/22 18:59 06:59 18:59 Intake Total 950 Output Total 4100 20 Balance -3150 -20 Intake: Oral 100 Hemodialysis 850 Output: Drainage 20 Right 20 Urine 0 0 Stool 600 Hemodialysis 3500 Other: # Voids 0 - Exam GENERAL DESCRIPTION: Middle-age female lying in bed in no distress RESPIRATORY SYSTEM: Unlabored breathing , decreased breath sounds at bases HEART: S1 S2 regular rate and rhythm , ABDOMEN: Soft , no tenderness, purulent drainage in the FRANCESCA drain EXTREMITIES: No edema feet - Labs CBC & Chem 7: 12/05/22 06:42 12/04/22 13:09 Labs: Microbiology - Last 24 Hours (Table) 11/30/22 11:55 Blood Culture - Preliminary Blood 11/30/22 11:40 Blood Culture - Preliminary Blood Assessment and Plan (1) Leukocytosis Current Visit: Yes Status: Acute Code(s): D72.829 - ELEVATED WHITE BLOOD CELL COUNT, UNSPECIFIED SNOMED Code(s): 851676475 (2) Intra-abdominal abscess Current Visit: No Status: Acute Code(s): K65.1 - PERITONEAL ABSCESS SNOMED Code(s): 45491668 Plan: 1patient presented to hospital with abdominal pain and more purulent drainage from the FRANCESCA drain drain high clinic suspicion for intra-abdominal abscess in this patient who did have a complicated history initially of PD catheter associated peritonitis subsequently did have a perforated diverticulitis and intra-abdominal abscess with bacteroids species failing outpatient or antibiotic therapy. 2CT abdominal pelvis did shows evidence of an abscess, and IR has been consulted for drainage of the subphrenic abscess , Patient did have aspirate of the subphrenic fluid and specimen has been sent for cultures which will be followed. 4-We will continue patient on cefepime and Flagyl, cefepime can be done through the dialysis hence no need for midline or PICC line discussed with the medical team IMAGE ASSEMBLER Mother at the bedside questions were answered Dictation was produced using [employer] dictation software. please excuse any grammatical, word or spelling errors.
[2022-12-05] MEDS: SEVELAMER 800 MG TAB PO SCH ×3 (09:28→19:52)
[2022-12-05] MEDS: SIMETHICONE 80 MG CHEWABLE PO SCH ×3 (09:29→19:52)
[2022-12-05] MEDS: metroNIDAZOLE-NS PMX 500 MG in SALINE 1 100ML.BAG IVPB SCH ×3 (09:59→23:42)
[2022-12-05 11:29] LABS: ALT 10 U/L (8-44); AST 18 U/L (13-35); Albumin 2.7 d/dL (3.8-4.9); Alkaline Phosphatase 68 U/L (41-126); BUN/Creat Ratio 4.23 Ratio (12.00-20.00); Blood Urea Nitrogen 27.9 mg/dL (9.0-27.0); Calcium 8.7 mg/dL (8.7-10.3); Carbon Dioxide 23.6 mmol/L (21.6-31.8); Chloride 95 mmol/L (96-109); Globulin 2.7 d/dL (1.6-3.3); Glucose 80 mg/dL (70-110); Potassium 4.2 mmol/L (3.5-5.5); Sodium 133 mmol/L (135-145); Total Bilirubin 0.2 mg/dL (0.3-1.2); Total Protein 5.4 d/dL (6.2-8.2)
--- NOTE | 2022-12-05 11:42 | P.PN ---
Subjective Patient is seen in follow-up for end-stage renal disease. She is maintained on hemodialysis on Saturday schedule. Tolerating dialysis well. No active bleeding. Scheduled to receive a unit of blood today. Vital signs are stable. General: No acute distress. HEENT: Head exam is unremarkable. LUNGS: No audible rhonchi or wheezes. HEART: Rate and Rhythm are regular. ABDOMEN: Nontender. FRANCESCA drain noted. EXTREMITITES: No edema. Objective - Vital Signs Vital signs: Vital Signs Temp 97.7 F 12/05/22 08:00 Pulse 68 12/05/22 08:00 Resp 18 12/05/22 08:00 BP 187/98 12/05/22 08:00 Pulse Ox 97 12/05/22 08:00 FiO2 Intake & Output 12/04/22 12/05/22 12/05/22 18:59 06:59 18:59 Output Total 5 Balance -5 Output: Drainage 5 Right 5 Other: # Voids 0 0 - Labs CBC & Chem 7: 12/05/22 06:42 12/05/22 06:42 Labs: Abnormal Lab Results - Last 24 Hours (Table) 11/30/22 12/04/22 12/04/22 Range/Units 11:58 12:45 13:09 RBC (3.80-5.40) m/uL Hgb (11.4-16.0) gm/dL Hct (34.0-46.0) % RDW (11.5-15.5) % Haptoglobin (31.2-198.0) mg/dL Sodium (137-145) mmol/L Chloride (98-107) mmol/L Anion Gap (4.00-12.00) mmol/L BUN (7-17) mg/dL Creatinine (0.52-1.04) mg/dL Est GFR (CKD-EPI) (>=60) BUN/Creatinine Ratio (12.00-20.00) Ratio Calcium (8.4-10.2) mg/dL Iron 27 L (50-170) UG/DL TIBC 136 L (228-460) UG/DL Transferrin 97.1 L (204.0-354.0) mg/dL Ferritin 3132.0 H (10.0-291.0) ng/mL Total Bilirubin (0.3-1.2) mg/dL Total Protein (6.3-8.2) g/dL Albumin (3.5-5.0) g/dL Albumin/Globulin Ratio (1.60-3.17) Ratio Folate 35.30 H (4.40-31.00) ng/mL Fluid Appearance Blood Tinged A (Clear) 12/04/22 12/04/22 12/05/22 Range/Units 13:09 13:09 06:42 RBC 2.18 L (3.80-5.40) m/uL Hgb 6.9 L* (11.4-16.0) gm/dL Hct 20.6 L (34.0-46.0) % RDW 17.8 H (11.5-15.5) % Haptoglobin 531.0 H (31.2-198.0) mg/dL Sodium 132 L (137-145) mmol/L Chloride 96 L (98-107) mmol/L Anion Gap (4.00-12.00) mmol/L BUN 24 H (7-17) mg/dL Creatinine 5.22 H (0.52-1.04) mg/dL Est GFR (CKD-EPI) (>=60) BUN/Creatinine Ratio (12.00-20.00) Ratio Calcium 8.2 L (8.4-10.2) mg/dL Iron (50-170) UG/DL TIBC (228-460) UG/DL Transferrin (204.0-354.0) mg/dL Ferritin (10.0-291.0) ng/mL Total Bilirubin (0.3-1.2) mg/dL Total Protein 5.9 L (6.3-8.2) g/dL Albumin 2.8 L (3.5-5.0) g/dL Albumin/Globulin Ratio (1.60-3.17) Ratio Folate (4.40-31.00) ng/mL Fluid Appearance (Clear) 12/05/22 Range/Units 06:42 RBC (3.80-5.40) m/uL Hgb (11.4-16.0) gm/dL Hct (34.0-46.0) % RDW (11.5-15.5) % Haptoglobin (31.2-198.0) mg/dL Sodium 133 L (137-145) mmol/L Chloride 95 L (98-107) mmol/L Anion Gap 14.40 H (4.00-12.00) mmol/L BUN 27.9 H (7-17) mg/dL Creatinine 6.6 H (0.52-1.04) mg/dL Est GFR (CKD-EPI) 7 L (>=60) BUN/Creatinine Ratio 4.23 L (12.00-20.00) Ratio Calcium (8.4-10.2) mg/dL Iron (50-170) UG/DL TIBC (228-460) UG/DL Transferrin (204.0-354.0) mg/dL Ferritin (10.0-291.0) ng/mL Total Bilirubin 0.2 L (0.3-1.2) mg/dL Total Protein 5.4 L (6.3-8.2) g/dL Albumin 2.7 L (3.5-5.0) g/dL Albumin/Globulin Ratio 1.00 L (1.60-3.17) Ratio Folate (4.40-31.00) ng/mL Fluid Appearance (Clear) Assessment and Plan Plan: Assessment: 1. End-stage renal disease maintained on hemodialysis on Saturday schedule. 2. Perforated sigmoid diverticulitis status post surgery in October 2022. 3. Intra-abdominal abscess on IV antibiotics. Infectious disease and surgery following. Wound culture positive for E. coli. May need drainage of the abscess. 4. Hypertension with chronic kidney disease. Stable. 5. Anemia of chronic kidney disease maintained on Aranesp. Component of acute blood loss scheduled to receive another blood transfusion today. Status post IV DDAVP 2 doses. 6. Chronic kidney disease mineral bone disease maintained on Renvela. Phosphorus 5.5 date 12/02/2022. 7. Hyponatremia secondary to chronic kidney disease. Improved postdialysis. Plan: Currently seen while undergoing hemodialysis. Next treatment on Saturday. Repeat IV DDAVP 1 dose today.
--- NOTE | 2022-12-05 12:05 | P.PN ---
Subjective Progress Note Date: 12/05/22 Principal diagnosis: anemia, peritoneal abscess At today's visit patient is resting comfortably in bed. Patient is receiving hemodialysis. No acute events overnight Objective - Vital Signs Vital signs: Vital Signs Temp 97.7 F 12/05/22 08:00 Pulse 68 12/05/22 08:00 Resp 18 12/05/22 08:00 BP 187/98 12/05/22 08:00 Pulse Ox 97 12/05/22 08:00 FiO2 Intake & Output 12/04/22 12/05/22 12/05/22 18:59 06:59 18:59 Output Total 5 Balance -5 Output: Drainage 5 Right 5 Other: # Voids 0 0 - Constitutional General appearance: Present: average body habitus, no acute distress - EENT Eyes: Present: anicteric sclerae, EOMI ENT: Present: hearing grossly normal - Respiratory Details: breathing is even and unlabored - Cardiovascular Details: skin warm and dry - Integumentary Integumentary: Present: pale. Absent: cyanotic - Musculoskeletal Musculoskeletal: Present: strength equal bilaterally - Psychiatric Psychiatric: Present: A&O x's 3, appropriate affect, intact judgment & insight - Labs CBC & Chem 7: 12/05/22 06:42 12/05/22 06:42 Labs: Abnormal Lab Results - Last 24 Hours (Table) 11/30/22 12/04/22 12/04/22 Range/Units 11:58 12:45 13:09 RBC (3.80-5.40) m/uL Hgb (11.4-16.0) gm/dL Hct (34.0-46.0) % RDW (11.5-15.5) % Haptoglobin (31.2-198.0) mg/dL Sodium (137-145) mmol/L Chloride (98-107) mmol/L Anion Gap (4.00-12.00) mmol/L BUN (7-17) mg/dL Creatinine (0.52-1.04) mg/dL Est GFR (CKD-EPI) (>=60) BUN/Creatinine Ratio (12.00-20.00) Ratio Calcium (8.4-10.2) mg/dL Iron 27 L (50-170) UG/DL TIBC 136 L (228-460) UG/DL Transferrin 97.1 L (204.0-354.0) mg/dL Ferritin 3132.0 H (10.0-291.0) ng/mL Total Bilirubin (0.3-1.2) mg/dL Total Protein (6.3-8.2) g/dL Albumin (3.5-5.0) g/dL Albumin/Globulin Ratio (1.60-3.17) Ratio Folate 35.30 H (4.40-31.00) ng/mL Fluid Appearance Blood Tinged A (Clear) 12/04/22 12/04/22 12/05/22 Range/Units 13:09 13: 06:42 RBC 2.18 L (3.80-5.40) m/uL Hgb 6.9 L* (11.4-16.0) gm/dL Hct 20.6 L (34.0-46.0) % RDW 17.8 H (11.5-15.5) % Haptoglobin 531.0 H (31.2-198.0) mg/dL Sodium 132 L (137-145) mmol/L Chloride 96 L (98-107) mmol/L Anion Gap (4.00-12.00) mmol/L BUN 24 H (7-17) mg/dL Creatinine 5.22 H (0.52-1.04) mg/dL Est GFR (CKD-EPI) (>=60) BUN/Creatinine Ratio (12.00-20.00) Ratio Calcium 8.2 L (8.4-10.2) mg/dL Iron (50-170) UG/DL TIBC (228-460) UG/DL Transferrin (204.0-354.0) mg/dL Ferritin (10.0-291.0) ng/mL Total Bilirubin (0.3-1.2) mg/dL Total Protein 5.9 L (6.3-8.2) g/dL Albumin 2.8 L (3.5-5.0) g/dL Albumin/Globulin Ratio (1.60-3.17) Ratio Folate (4.40-31.00) ng/mL Fluid Appearance (Clear) 12/05/22 Range/Units 06:42 RBC (3.80-5.40) m/uL Hgb (11.4-16.0) gm/dL Hct (34.0-46.0) % RDW (11.5-15.5) % Haptoglobin (31.2-198.0) mg/dL Sodium 133 L (137-145) mmol/L Chloride 95 L (98-107) mmol/L Anion Gap 14.40 H (4.00-12.00) mmol/L BUN 27.9 H (7-17) mg/dL Creatinine 6.6 H (0.52-1.04) mg/dL Est GFR (CKD-EPI) 7 L (>=60) BUN/Creatinine Ratio 4.23 L (12.00-20.00) Ratio Calcium (8.4-10.2) mg/dL Iron (50-170) UG/DL TIBC (228-460) UG/DL Transferrin (204.0-354.0) mg/dL Ferritin (10.0-291.0) ng/mL Total Bilirubin 0.2 L (0.3-1.2) mg/dL Total Protein 5.4 L (6.3-8.2) g/dL Albumin 2.7 L (3.5-5.0) g/dL Albumin/Globulin Ratio 1.00 L (1.60-3.17) Ratio Folate (4.40-31.00) ng/mL Fluid Appearance (Clear) Assessment and Plan (1) Anemia Current Visit: Yes Status: Acute Priority: High Code(s): D64.9 - ANEMIA, UNSPECIFIED SNOMED Code(s): 032607453 (2) Chronic renal failure Current Visit: Yes Status: Acute Priority: High Code(s): N18.9 - CHRONIC KIDNEY DISEASE, UNSPECIFIED SNOMED Code(s): 29802454 (3) Abdominal pain Current Visit: Yes Status: Acute Priority: High Code(s): R10.9 - UNSPECIFIED ABDOMINAL PAIN SNOMED Code(s): 24873622 Plan: Anemia: -Upon trending labs, anemia noted since 2019, typically in 7-8 range -Pt denies having to receive blood transfusions prior to last admission -Patient has received 3 units of PRBCs and 2 units of FFP since admission. Hemoglobin 6.9. today, additional unit of PRBCs ordered -Denies any acute episodes of bleeding -Anemia workup did not reveal any nutritional deficiencies. Hemolysis workup negative -Anemia likely secondary to ESRD superimposed by acute infection/inflammation. Would expect counts to improve as patient acutely recovers -Plan for endoscopy tomorrow -Will continue to monitor. Please transfuse for hemoglobin less than 7 Peritoneal abscess: -Small residual peritoneal abscess along the right flank of the inferior margin of the right liver lobe measuring 6.6 x 5.2 x 1.[address] AP -General surgery following. Consult placed to IR for possible I&D of abscess. Blood cultures negative thus far. Wound culture positive for Escherichia coli. Patient is being treated with cefepime and Flagyl. Patient remains afebrile. ESRD: -Nephrology following -Receiving hemodialysis. Continues on luisa Parker Attests: I have seen and examined pt, performed H&P, developed impression and plan of care. Discussed with dictator. Agree with documentation, dictated as a scribe
[2022-12-05] MEDS ORDERED: DESMOPRESSIN ACETATE 26 MCG in SODIUM CHLORIDE 0.9% 50 ML IVPB ONE (13:00)
[2022-12-05] MEDS: FAMOTIDINE 20 MG TAB PO SCH (13:47)
[2022-12-05] MEDS: FOLIC ACID-VIT B COMPLEX-VIT C 1 CAP PO SCH (13:49)
--- NOTE | 2022-12-05 14:12 | P.PN ---
Subjective Progress Note Date: 12/05/22 CHIEF COMPLAINT: Right lower abdominal pain HISTORY OF PRESENT ILLNESS: Patient continues plan a right lower abdominal pain. Reports that is slightly better than yesterday. She had 1 mL fluid aspirated b y IR service. Ultrasound had shown no sizable fluid collection. FRANCESCA drain was still purulent output. Her ostomy is functioning. White count has normalized at 10. Hemoglobin is 6.9 and she is receiving a unit of blood. Patient denies any signs of active bleeding. PHYSICAL EXAM: VITAL SIGNS: Reviewed GENERAL: Well-developed in no acute distress. HEENT: No sclera icterus. Extraocular movements grossly intact. Moist buccal mucosa. Head is atraumatic, normocephalic. Hears conversational speech. No nasal drainage. NECK: Supple without lymphadenopathy. CHEST: Non-labored respirations and equal bilateral excursions. CARDIOVASCULAR: Palpable 2+ radial pulses. ABDOMEN: Soft. Nondistended. Ostomy with brown stool. Incision site clean dry and intact. On the surgical dressing on there was noted to areas that had small amount of yellowish-green discharge. FRANECSCA drain with purulent drainage MUSCULOSKELETAL: No clubbing or cyanosis. NEUROLOGIC: No focal or lateralizing signs. Cranial nerves II through XII grossly intact. PSYCH: Appropriate affect. Alert and oriented to person, place and time. SKIN: Well perfused. Good skin turgor. ASSESSMENT: 1. Abdominal pain 2. Pelvic abscess 3. Anemia 4. End-stage renal disease on hemodialysis PLAN: -Patient scheduled for EGD tomorrow, 12/06/22 for further evaluation of anemia -Continue IV antibiotics -Continue to monitor FRANCESCA drain output -Follow up on culture results -IV iron ordered for anemia due to patient having ALLERGIC reaction to prior Iron infusions Physician Sports Instructor note has been reviewed by physician. Signing provider agrees with the documented findings, assessment, and plan of care. Objective - Vital Signs Vital signs: Vital Signs Temp 97.7 F 12/05/22 08:00 Pulse 68 12/05/22 08:00 Resp 18 12/05/22 08:00 BP 187/98 12/05/22 08:00 Pulse Ox 97 12/05/22 08:00 FiO2 Intake & Output 12/04/22 12/05/22 12/05/22 18:59 06:59 18:59 Output Total 5 Balance -5 Output: Drainage 5 Right 5 Other: # Voids 0 0 - Labs CBC & Chem 7: 12/05/22 06:42 12/05/22 06:42 Labs: Abnormal Lab Results - Last 24 Hours (Table) 11/30/22 12/04/22 12/04/22 Range/Units 11:58 06:48 06:48 WBC 10.19 H (4.50-10.00) X 10*3/uL RBC 2.33 L (4.10-5.20) X 10*6/uL Hgb 7.2 L (12.0-15.0) d/dL Hct 22.2 L (37.2-46.3) % RDW 18.6 H (11.5-14.5) % Neutrophils # 7.87 H (1.80-7.70) X 10*3/uL Haptoglobin (31.2-198.0) mg/dL Sodium (137-145) mmol/L Chloride (98-107) mmol/L Anion Gap 12.80 H (4.00-12.00) mmol/L BUN (7-17) mg/dL Creatinine 5.1 H (0.6-1.5) mg/dL Est GFR (CKD-EPI) 10 L (>=60) BUN/Creatinine Ratio 3.80 L (12.00-20.00) Ratio Calcium 8.3 L (8.7-10.3) mg/dL Iron 27 L (50-170) UG/DL TIBC 136 L (228-460) UG/DL Transferrin 97.1 L (204.0-354.0) mg/dL Ferritin 3132.0 H (10.0-291.0) ng/mL Total Bilirubin 0.2 L (0.3-1.2) mg/dL Total Protein 5.4 L (6.2-8.2) d/dL Albumin 2.8 L (3.8-4.9) d/dL Albumin/Globulin Ratio 1.08 L (1.60-3.17) Ratio Folate (4.40-31.00) ng/mL Fluid Appearance (Clear) 12/04/22 12/04/22 12/04/22 Range/Units 12:45 13:09 13:09 WBC (4.50-10.00) X 10*3/uL RBC (4.10-5.20) X 10*6/uL Hgb (12.0-15.0) d/dL Hct (37.2-46.3) % RDW (11.5-14.5) % Neutrophils # (1.80-7.70) X 10*3/uL Haptoglobin 531.0 H (31.2-198.0) mg/dL Sodium (137-145) mmol/L Chloride (98-107) mmol/L Anion Gap (4.00-12.00) mmol/L BUN (7-17) mg/dL Creatinine (0.6-1.5) mg/dL Est GFR (CKD-EPI) (>=60) BUN/Creatinine Ratio (12.00-20.00) Ratio Calcium (8.7-10.3) mg/dL Iron (50-170) UG/DL TIBC (228-460) UG/DL Transferrin (204.0-354.0) mg/dL Ferritin (10.0-291.0) ng/mL Total Bilirubin (0.3-1.2) mg/dL Total Protein (6.2-8.2) d/dL Albumin (3.8-4.9) d/dL Albumin/Globulin Ratio (1.60-3.17) Ratio Folate 35.30 H (4.40-31.00) ng/mL Fluid Appearance Blood Tinged A (Clear) 12/04/22 12/05/22 Range/Units 13:09 06:42 WBC (4.50-10.00) X 10*3/uL RBC 2.18 L (4.10-5.20) X 10*6/uL Hgb 6.9 L* (12.0-15.0) d/dL Hct 20.6 L (37.2-46.3) % RDW 17.8 H (11.5-14.5) % Neutrophils # (1.80-7.70) X 10*3/uL Haptoglobin (31.2-198.0) mg/dL Sodium 132 L (137-145) mmol/L Chloride 96 L (98-107) mmol/L Anion Gap (4.00-12.00) mmol/L BUN 24 H (7-17) mg/dL Creatinine 5.22 H (0.6-1.5) mg/dL Est GFR (CKD-EPI) (>=60) BUN/Creatinine Ratio (12.00-20.00) Ratio Calcium 8.2 L (8.7-10.3) mg/dL Iron (50-170) UG/DL TIBC (228-460) UG/DL Transferrin (204.0-354.0) mg/dL Ferritin (10.0-291.0) ng/mL Total Bilirubin (0.3-1.2) mg/dL Total Protein 5.9 L (6.2-8.2) d/dL Albumin 2.8 L (3.8-4.9) d/dL Albumin/Globulin Ratio (1.60-3.17) Ratio Folate (4.40-31.00) ng/mL Fluid Appearance (Clear)
[2022-12-05] MEDS: CEFEPIME 1 GM in SODIUM CHLORIDE 0.9% 50 ML IVPB SCH (14:29)
--- NOTE | 2022-12-05 18:30 | PN ---
PROGRESS NOTE DATE OF SERVICE: 12/05/2022 SUBJECTIVE: This is a 42-year-old woman, who was admitted with acute intraabdominal abscess, had aspiration. The patient also had acute on chronic anemia and multiple medical issues, received hemodialysis. The cultures are showing E coli, which is poly- sensitive. PAST MEDICAL HISTORY: Reviewed. REVIEW OF SYSTEMS: 14-point review of systems is negative except as mentioned earlier. CURRENT MEDICATIONS: Reviewed. PHYSICAL EXAMINATION: VITAL SIGNS: Pulse is 61, blood pressure 177/111, respirations 19. CHEST: A few scattered rhonchi. ABDOMEN: Soft, mild diffuse discomfort. NERVOUS SYSTEM: Nonfocal. LABS: Hemoglobin 6.9. ASSESSMENT: 1. Intraabdominal abscess with history of peritoneal dialysis associated with peritonitis and perforated diverticulitis, intraabdominal abscess with possible E coli, status post Interventional Radiology drainage. 2. Acute on chronic anemia. 3. End-stage renal disease. 4. Hypertension. 5. Multiple complex medical issues. RECOMMENDATIONS: I recommend to continue current medical management, continue symptomatic treatment. 1 unit transfusion endoscopies and repeat labs in the morning. Continue the antibiotics and PT/OT evaluation. The family at this point would like to return home, had detailed discussion, and see orders for details. Prognosis guarded. Further recommendations to follow. MMODL / IJN: [id number] / TAD
[2022-12-05] MEDS: amLODIPine 10 MG TAB PO SCH (19:51)
[2022-12-05] MEDS: hydrALAZINE HCL 50 MG TAB PO SCH ×2 (19:51→20:15)
[2022-12-05] MEDS: tiZANidine 4 MG TAB PO SCH (20:15)
[2022-12-05] MEDS: HEPARIN SODIUM,PORCINE 5,000 UNIT/ML 1 ML VIAL SQ SCH (20:15)
[2022-12-05] MEDS: ONDANSETRON 4 MG/2 ML VIAL IVP PRN (20:23)
[2022-12-05] MEDS: SODIUM CHLORIDE 0.9% 1,000 ML IV SCH (23:43)
[2022-12-06] MEDS: HYDROmorphone 1 MG/ML 1 ML SYRINGE IVP PRN ×3 (05:23→20:14)
[2022-12-06 07:06] LABS: Methylmalonic Acid 0.82 umol/L (<0.40)
[2022-12-06] MEDS: CEFEPIME 1 GM in SODIUM CHLORIDE 0.9% 50 ML IVPB SCH (07:57)
[2022-12-06] MEDS: amLODIPine 10 MG TAB PO SCH (07:58)
[2022-12-06] MEDS: hydrALAZINE HCL 50 MG TAB PO SCH ×3 (07:58→20:08)
[2022-12-06] MEDS: metroNIDAZOLE-NS PMX 500 MG in SALINE 1 100ML.BAG IVPB SCH ×3 (07:58→23:29)
[2022-12-06] MEDS: lisinopriL 20 MG TAB PO SCH ×2 (07:58→20:08)
[2022-12-06] MEDS: METOPROLOL TARTRATE 50 MG TAB PO SCH ×2 (07:59→20:08)
[2022-12-06] MEDS: SIMETHICONE 80 MG CHEWABLE PO SCH ×3 (08:10→16:26)
[2022-12-06] MEDS: SEVELAMER 800 MG TAB PO SCH ×3 (08:10→16:25)
[2022-12-06] MEDS: FAMOTIDINE 20 MG TAB PO SCH (08:11)
[2022-12-06] MEDS: HEPARIN SODIUM,PORCINE 5,000 UNIT/ML 1 ML VIAL SQ SCH (08:11)
[2022-12-06] MEDS: FOLIC ACID-VIT B COMPLEX-VIT C 1 CAP PO SCH (08:11)
[2022-12-06] MEDS ORDERED: IV FLUID CONTINUATION 200 ML IV ONE (10:26)
[2022-12-06] MEDS ORDERED: PROPOFOL 10 MG/ML 20 ML VIAL IV ONE (10:26)
--- NOTE | 2022-12-06 10:44 | P.PCN ---
Date of Procedure: 12/06/22 Description of Procedure: PREOPERATIVE DIAGNOSIS: Acute blood loss anemia Status post blood transfusions End-stage renal disease Dialysis-dependent POSTOPERATIVE DIAGNOSIS: Acute gastric ulcer with bleeding 3 Diaphragmatic hiatal hernia OPERATION: Esophagogastroduodenoscopy SURGEON: Joanna Blackburn MD ANESTHESIA: MAC. INDICATIONS: The patient is a 42-year-old female who presents with acute blood loss anemia status post blood transfusions 3 doses and hospitalization. Benefits and risks of the procedure were described. Informed consent was obtained. DESCRIPTION: The patient was brought into the endoscopy suite and laid in the left lateral decubitus position. An Olympus gastroscope was passed along the posterior oropharynx down to the distal esophagus where the squamocolumnar junction was encountered at 36 cm from the incisors. The stomach was entered and no bile reflux was found. Additional findings are listed below. The first through third portion of the duodenum was examined and unremarkable. Retroflexion of the scope confirmed Hill grade 3 lower esophageal valve. The squamocolumnar junction demonstrated LA grade B erosive esophagitis. The stomach was desufflated. The patient tolerated the procedure well. FINDINGS: Squamocolumnar junction 36 cm from the incisors. Diaphragmatic hiatus at 38 cm. Hiatal hernia, 2 cm Hill grade 3 lower esophageal valve. LA grade B erosive esophagitis. No active duodenitis. Active bleeding gastric ulcer 3, 3 mm along the gastric cardia and body RECOMMENDATIONS: 1. Carafate 1 g 3 times daily 2. Discontinue blood thinners 3. Protonix 40 mg twice a day
--- NOTE | 2022-12-06 10:59 | P.PN ---
Subjective Patient is seen in follow-up for end-stage renal disease. She is maintained on hemodialysis on Saturday schedule. No problems with dialysis yesterday. Received blood yesterday. No active bleeding. Vital signs are stable. General: No acute distress. HEENT: Head exam is unremarkable. LUNGS: No audible rhonchi or wheezes. HEART: Rate and Rhythm are regular. ABDOMEN: Nontender. FRANCESCA drain noted. EXTREMITITES: No edema. Objective - Vital Signs Vital signs: Vital Signs Temp 97.9 F 12/06/22 06:58 Pulse 73 12/06/22 06:58 Resp 16 12/06/22 06:58 BP 174/91 12/06/22 06:58 Pulse Ox 94 L 12/06/22 06:58 FiO2 Intake & Output 12/05/22 12/06/22 12/06/22 18:59 06:59 18:59 Intake Total 750 50 Output Total 3530 Balance -2780 50 Intake: IV 50 Blood Product 0 Unit 0 Hemodialysis 750 Output: Drainage 30 Right 30 Hemodialysis 3500 - Labs CBC & Chem 7: 12/05/22 06:42 12/05/22 06:42 Labs: Abnormal Lab Results - Last 24 Hours (Table) 12/04/22 12/05/22 12/05/22 Range/Units 13:09 06:42 10:35 Sodium 133 L (135-145) mmol/L Chloride 95 L (96-109) mmol/L Anion Gap 14.40 H (4.00-12.00) mmol/L BUN 27.9 H (9.0-27.0) mg/dL Creatinine 6.6 H (0.6-1.5) mg/dL Est GFR (CKD-EPI) 7 L (>=60) BUN/Creatinine Ratio 4.23 L (12.00-20.00) Ratio Total Bilirubin 0.2 L (0.3-1.2) mg/dL Total Protein 5.4 L (6.2-8.2) d/dL Albumin 2.7 L (3.8-4.9) d/dL Albumin/Globulin Ratio 1.00 L (1.60-3.17) Ratio Methylmalonic Acid 0.82 H (<0.40) umol/L Crossmatch See Detail Microbiology - Last 24 Hours (Table) 12/04/22 12:45 Gram Stain - Preliminary Aspirate Body Fluid Culture - Preliminary 11/30/22 11:55 Blood Culture - Final Blood 11/30/22 11:40 Blood Culture - Final Blood Assessment and Plan Plan: Assessment: 1. End-stage renal disease maintained on hemodialysis on Saturday schedule. 2. Perforated sigmoid diverticulitis status post surgery in October 2022. 3. Intra-abdominal abscess on IV antibiotics. Infectious disease and surgery following. Wound culture positive for E. coli. May need drainage of the abscess. 4. Hypertension with chronic kidney disease. Stable. 5. Anemia of chronic kidney disease maintained on Aranesp. Component of acute blood loss scheduled to receive another blood transfusion today. Status post IV DDAVP 3 doses. 6. Chronic kidney disease mineral bone disease maintained on Renvela. Phosphorus 5.5 date 12/02/2022. 7. Hyponatremia secondary to chronic kidney disease. Improved postdialysis. Plan: Hemodialysis tomorrow. EGD today.
[2022-12-06 11:24] LABS: Basophils # (A) 0.06 X 10*3/uL (0.00-0.10); Basophils % (A) 0.7 %; Eosinophils # (A) 0.28 X 10*3/uL (0.04-0.35); Eosinophils % (A) 3.1 %; HCT 25.6 % (37.2-46.3); Lymphocytes # (A) 1.12 X 10*3/uL (0.90-5.00); Lymphocytes % (A) 12.3 %; MCH 30.1 pg (27.0-32.0); MCHC 31.3 d/dL (32.0-37.0); MCV 96.2 FL (80.0-97.0); Mean Platelet Volume 9.6 FL (9.5-12.2); Monocytes # (A) 0.68 X 10*3/uL (0.20-1.00); Monocytes % (A) 7.4 %; NRBC Per 100 WBC 0 X 10*3/uL (0.00-0.01); Neutrophils # (A) 6.93 X 10*3/uL (1.80-7.70); Neutrophils % (A) 75.8 %; Platelet Count 236 X 10*3/uL (140-440); RBC 2.66 X 10*6/uL (4.10-5.20); RDW 17.8 % (11.5-14.5); WBC 9.13 X 10*3/uL (4.50-10.00)
[2022-12-06 11:26] LABS: BUN/Creat Ratio 4.13 Ratio (12.00-20.00); Blood Urea Nitrogen 18.6 mg/dL (9.0-27.0); Calcium 8.6 mg/dL (8.7-10.3); Carbon Dioxide 25.4 mmol/L (21.6-31.8); Chloride 95 mmol/L (96-109); Glucose 83 mg/dL (70-110); Potassium 4.1 mmol/L (3.5-5.5); Sodium 134 mmol/L (135-145)
[2022-12-06] MEDS: PANTOPRAZOLE 40 MG/10 ML VIAL IVP SCH ×2 (12:15→20:09)
[2022-12-06] MEDS: SUCRALFATE 1 GM TAB PO SCH ×2 (12:23→16:25)
--- NOTE | 2022-12-06 13:57 | P.PN ---
Subjective Progress Note Date: 12/06/22 Principal diagnosis: anemia, peritoneal abscess At today's visit patient is resting comfortably in bed. Pt reports feeling ok. Reports persisting purulent drainage from FRANCESCA drain. S/p EGD this morning. No acute events overnight Objective - Vital Signs Vital signs: Vital Signs Temp 97.9 F 12/06/22 13:29 Pulse 79 12/06/22 13:29 Resp 16 12/06/22 13:29 BP 172/93 12/06/22 13:29 Pulse Ox 92 L 12/06/22 13:29 FiO2 Intake & Output 12/05/22 12/06/22 12/06/22 18:59 06:59 18:59 Intake Total 750 50 Output Total 3530 Balance -2780 50 Weight 88.451 kg Intake: IV 50 Blood Product 0 Unit 0 Hemodialysis 750 Output: Drainage 30 Right 30 Hemodialysis 3500 - Constitutional General appearance: Present: average body habitus, no acute distress - EENT Eyes: Present: EOMI ENT: Present: hearing grossly normal - Respiratory Details: breathing is even unlabored - Cardiovascular Details: skin warm and dry - Gastrointestinal Gastrointestinal Comment(s): FRANCESCA drain in situ with purulent drainage - Integumentary Integumentary: Absent: cyanotic - Neurologic Neurologic Comment(s): grossly intact - Musculoskeletal Musculoskeletal: Present: strength equal bilaterally - Psychiatric Psychiatric: Present: A&O x's 3, appropriate affect, intact judgment & insight - Labs CBC & Chem 7: 12/06/22 05:45 12/06/22 05:45 Labs: Abnormal Lab Results - Last 24 Hours (Table) 12/04/22 12/05/22 12/06/22 Range/Units 13:09 10:35 05:45 RBC 2.66 L (4.10-5.20) X 10*6/uL Hgb 8.0 L (12.0-15.0) d/dL Hct 25.6 L (37.2-46.3) % MCHC 31.3 L (32.0-37.0) d/dL RDW 17.8 H (11.5-14.5) % Sodium (135-145) mmol/L Chloride (96-109) mmol/L Anion Gap (4.00-12.00) mmol/L Creatinine (0.6-1.5) mg/dL Est GFR (CKD-EPI) (>=60) BUN/Creatinine Ratio (12.00-20.00) Ratio Calcium (8.7-10.3) mg/dL Methylmalonic Acid 0.82 H (<0.40) umol/L Crossmatch See Detail 12/06/22 Range/Units 05:45 RBC (4.10-5.20) X 10*6/uL Hgb (12.0-15.0) d/dL Hct (37.2-46.3) % MCHC (32.0-37.0) d/dL RDW (11.5-14.5) % Sodium 134 L (135-145) mmol/L Chloride 95 L (96-109) mmol/L Anion Gap 13.60 H (4.00-12.00) mmol/L Creatinine 4.5 H (0.6-1.5) mg/dL Est GFR (CKD-EPI) 12 L (>=60) BUN/Creatinine Ratio 4.13 L (12.00-20.00) Ratio Calcium 8.6 L (8.7-10.3) mg/dL Methylmalonic Acid (<0.40) umol/L Crossmatch Microbiology - Last 24 Hours (Table) 12/04/22 12:45 Gram Stain - Preliminary Aspirate Body Fluid Culture - Preliminary 11/30/22 11:55 Blood Culture - Final Blood 11/30/22 11:40 Blood Culture - Final Blood Assessment and Plan (1) Anemia Current Visit: Yes Status: Acute Priority: High Code(s): D64.9 - ANEMIA, UNSPECIFIED SNOMED Code(s): 294698724 (2) Chronic renal failure Current Visit: Yes Status: Acute Priority: High Code(s): N18.9 - CHRONIC KIDNEY DISEASE, UNSPECIFIED SNOMED Code(s): 51546424 (3) Abdominal pain Current Visit: Yes Status: Acute Priority: High Code(s): R10.9 - UNSPECIFIED ABDOMINAL PAIN SNOMED Code(s): 69851375 Plan: Anemia: -Upon trending labs, anemia noted since 2019, typically in 7-8 range -Pt denies having to receive blood transfusions prior to last admission -Patient has received 4 units of PRBCs and 2 units of FFP since admission. Hemoglobin 8.0 today after receiving unit of PRBCs yesterday. -Denies any acute episodes of bleeding -Anemia workup did not reveal any nutritional deficiencies. Hemolysis workup negative -S/p EGD this morning, revealed erosive esophagitis and active bleeding gastric ulcer 3, 3 mm. Plan to start carafate, protonix and d/c blood thinners. -Anemia likely secondary to ESRD superimposed by acute infection/inflammation and GI bleed. Would expect counts to return to baseline as pt acutely recovers -Will continue to monitor. Please transfuse for hemoglobin less than 7 Peritoneal abscess: -Small residual peritoneal abscess along the right flank of the inferior margin of the right liver lobe measuring 6.6 x 5.2 x 1.[address] AP -General surgery following. S/p I&D of abscess on 12/04, culture negative thus far. Blood cultures negative. Abd wound culture positive for Escherichia coli. Patient is being treated with cefepime and Flagyl. Patient remains afebrile. ESRD: -Nephrology following -Receiving hemodialysis. Continues on aranesp
--- NOTE | 2022-12-06 18:59 | P.PN ---
Subjective Progress Note Date: 12/06/22 42-year-old female with a past medical history significant for end-stage renal disease on hemodialysis presents to the ED for chief complaint of abdominal pain. Patient previously discharged from this facility on 11/23/22. Patient initially at this time presented for abdominal pain. Was on peritoneal dialysis at this time. Found to have peritonitis. Additionally, during her stay here had a perforation of sigmoid diverticulitis and patient is status post sigmoid colectomy and ostomy. Additionally has a right FRANCESCA drain in place. Was placed on Ceftin at discharge for 10 days and was supposed to follow up with Dr. Solomon and Dr. Blackburn on an outpatient basis. However, per patient's started to experience abdominal pain 2 days ago. Also notes a change in drainage at her FRANCESCA drain. States that drainage has become purulent and has become malodorous. Denies fever. Denies chest pain or shortness of breath. No other complaints. Last dialysis was on 11/28. Is due for dialysis today. -- Hemoglobin down to 6.2 this morning; we will transfuse with 1 unit packed RBCs; monitor H&H closely --CT of the abdomen is completed and results are pending 12/02/2022 the patient is seen and evaluated in room at bedside; remains to be afebrile, patient is breathing comfortably on room air , the patient denies any chest pain shortness of breath or cough abdominal pain has not decreased in intensity still have a purulent drainage in the FRANCESCA drain no vomiting. Patient white count is down to 9.4, hemoglobin is 5.7, creatinine is 5.10, FRANCESCA drainage culture growing E. coli that is sensitive pathogen; patient has 2 units packed RBCs ordered along with fresh frozen plasma patient presented to hospital with abdominal pain and more purulent drainage from the FRANCESCA drain drain high clinic suspicion for intra-abdominal abscess in this patient who did have a complicated history initially of PD catheter associated peritonitis subsequently did have a perforated diverticulitis and intra-abdominal abscess with bacteroids species failing outpatient or antibiotic therapy. CT abdominal pelvis did shows evidence of an abscess per discussion with the surgeon the FRANCESCA drain is inside the abscess cavity and no need for further drainage FRANCESCA drain culture growing E. coli that is a sensitive pathogen patient to continue with the cefepime and Flagyl and monitor clinical course closely 12/03/2022 Patient is seen and evaluated in follow-up this morning currently receiving hemodialysis and patient is maintained on Saturday/Saturday/Saturday schedule. Infectious disease along with general surgery also following and culture showing E. coli. General surgery recommending interventional radiology consult for possible drainage of the abdominal wound and will consult. No interventional radiology available today and will place for tomorrow. Patient also having a drop in hemoglobin and will consult hematology and appreciate input and recommendations. Patient is currently afebrile with no reports of chest pain or shortness of breath. Patient tolerating diet well will not eating very much. Patient will likely need to be nothing by mouth at midnight for possible interventional radiology evaluation. 12/04/2022 Patient is seen and evaluated today with multiple medical consultations following. A patient is nothing by mouth and being evaluated by interventional radiology for evaluation of additional abscess and need for drainage. Initially ultrasound noted that the abscess was significantly smaller with no area for drainage noted. Upon further evaluation with ultrasound Dr. Rogers was able to aspirate a small amount of fluid for analysis which was sent. Patient is continued on antibiotics with infectious disease following closely. Patient will receive another session of hemodialysis tomorrow. Patient will likely need IV antibiotics per infectious disease and general surgery and awaiting finalized cultures and verifying with IV antibiotics are covered per case management. Patient is afebrile with no reports of chest pain or shortness of breath. Tolerating diet with no reported nausea or vomiting. 12/06/2022 Patient is seen in follow-up today with multiple medical consultations following. Patient is status post EGD today with Dr. Smith surgery and awaiting official report. Hematology following as well undergoing anemia workup. Patient is continued on dialysis and arranging for outpatient dialysis antibiotics with infectious disease following closely. Awaiting finalized cultures on the most recent aspirate from IR. Patient is afebrile with no reported chest pain or shortness of breath. Patient is tolerating diet although concerned with several restrictions on renal diet. Okay for regular diet with low potassium and will follow-up with repeat labs. Review of systems: Constitutional: No reports of fatigue, fever, or chills Cardiovascular: No reports of chest pain or palpitations Respiratory: No reports of shortness of breath or cough GI: No reports of nausea, vomiting, or diarrhea, reports reduced oral intake with limited diet on renal diet : No reports of dysuria or retention Neurovascular: No reports of weakness or numbness All medications have been reviewed Physical exam: Gen: This is a 42-year-old female who is awake, alert and oriented 3, well- developed, well-nourished, obese HEENT: Head is atraumatic, normocephalic. Pupils equal, round. Sclerae is anicteric. NECK: Supple. No JVD. No lymphadenopathy. No thyromegaly. LUNGS: Clear to auscultation. No wheezes or rhonchi. No intercostal retractions. HEART: Regular rate and rhythm. No murmur. ABDOMEN: Soft. Bowel sounds are present. No masses. No tenderness. Incision sites are clean dry and intact and the ostomy with stool noted. FRANCESCA drain on the right with purulent drainage noted EXTREMITIES: No pedal edema. No calf tenderness. NEUROLOGICAL: Patient is awake, alert and oriented x3. Cranial nerves 2 through 12 are grossly intact. Assessment: -Intra-abdominal abscess history of PD catheter associated peritonitis along with perforated diverticulitis and intra-abdominal abscesses with bacteroids species and failed outpatient therapy -Acute on chronic anemia; multifactorial related to chronic kidney disease as well as noted bleeding ulcers 3 on EGD today with general surgery -End-stage renal disease/hemodialysis; maintained on Saturday, Saturday and Saturday via permacath -Hypertension history -Obesity with BMI of 33.5 -DVT prophylaxis; SCDs -full code Plan: Patient is currently maintained on hemodialysis with nephrology following and will continue on Saturday/Saturday/Saturday schedule General surgery following an patient is scheduled to undergo EGD today for evaluation of drop in hemoglobin and anemia. EGD revealed esophagitis along with bleeding ulcers 3 and patient will continue on Protonix along with Carafate and no oral anticoagulation. Awaiting repeat cultures from the aspiration done by interventional radiology, no growth for 48 hours thus far Infectious disease following with cultures growing E. coli. Awaiting finalized cultures to determine discharge antibiotics if patient will require IV access and if this is a covered benefit through her insurance versus receiving antibiotics with dialysis. Will discuss with infectious disease is cultures remain negative and patient will likely go on dialysis antibiotics Follow-up labs ordered Patient okay for regular diet with low potassium Due to multiple complex medical issues, prognosis is guarded Possible discharge planning in the next 24-48 hours The impression and plan of care has been dictated by Loly Flores, Nurse Practitioner as directed. Dr. Salvatore MD I have performed a history and examination and MDM of this patient, discussed the same with the dictator, and agree with the dictator's assessment and plan as written ,documented as a scribe. Based on total visit time, I have performed more than 50% of the visit. Objective - Vital Signs Vital signs: Vital Signs Temp 97.9 F 12/06/22 06:58 Pulse 73 12/06/22 06:58 Resp 16 12/06/22 06:58 BP 174/91 12/06/22 06:58 Pulse Ox 94 L 12/06/22 06:58 FiO2 Intake & Output 12/05/22 12/06/22 12/06/22 18:59 06:59 18:59 Intake Total 750 50 Output Total 3530 Balance -2780 50 Intake: IV 50 Blood Product 0 Unit 0 Hemodialysis 750 Output: Drainage 30 Right 30 Hemodialysis 3500 - Labs CBC & Chem 7: 12/06/22 05:45 12/06/22 05:45 Labs: Abnormal Lab Results - Last 24 Hours (Table) 12/04/22 12/05/22 12/06/22 Range/Units 13:09 10:35 05:45 RBC 2.66 L (4.10-5.20) X 10*6/uL Hgb 8.0 L (12.0-15.0) d/dL Hct 25.6 L (37.2-46.3) % MCHC 31.3 L (32.0-37.0) d/dL RDW 17.8 H (11.5-14.5) % Sodium (135-145) mmol/L Chloride (96-109) mmol/L Anion Gap (4.00-12.00) mmol/L Creatinine (0.6-1.5) mg/dL Est GFR (CKD-EPI) (>=60) BUN/Creatinine Ratio (12.00-20.00) Ratio Calcium (8.7-10.3) mg/dL Methylmalonic Acid 0.82 H (<0.40) umol/L Crossmatch See Detail 12/06/22 Range/Units 05:45 RBC (4.10-5.20) X 10*6/uL Hgb (12.0-15.0) d/dL Hct (37.2-46.3) % MCHC (32.0-37.0) d/dL RDW (11.5-14.5) % Sodium 134 L (135-145) mmol/L Chloride 95 L (96-109) mmol/L Anion Gap 13.60 H (4.00-12.00) mmol/L Creatinine 4.5 H (0.6-1.5) mg/dL Est GFR (CKD-EPI) 12 L (>=60) BUN/Creatinine Ratio 4.13 L (12.00-20.00) Ratio Calcium 8.6 L (8.7-10.3) mg/dL Methylmalonic Acid (<0.40) umol/L Crossmatch Microbiology - Last 24 Hours (Table) 12/04/22 12:45 Gram Stain - Preliminary Aspirate Body Fluid Culture - Preliminary 11/30/22 11:55 Blood Culture - Final Blood 11/30/22 11:40 Blood Culture - Final Blood
[2022-12-06] MEDS: SODIUM CHLORIDE 0.9% 1,000 ML IV SCH (20:07)
[2022-12-06] MEDS: hydrALAZINE HCL 20 MG/ML 1 ML VIAL IVP PRN (20:08)
[2022-12-06] MEDS: tiZANidine 4 MG TAB PO SCH (20:08)
[2022-12-06] MEDS: ONDANSETRON 4 MG/2 ML VIAL IVP PRN (20:17)
--- NOTE | 2022-12-06 22:43 | P.PN ---
Subjective Progress Note Date: 12/05/22 Principal diagnosis: Intra-abdominal abscess Patient is a 42-year-old female with a past medical history significant for end-stage renal disease was on peritoneal dialysis who was recently admitted to the hospital treated for PD catheter associated peritonitis outpatient culture positive for E. coli , subsequent CT did shows evidence of perforated diverticulitis for the patient did have laparotomy drainage of abdominal abscess and did have a diverting colostomy abdominal culture positive for bacteroid species, patient discharged home on oral Ceftin and Flagyl now presenting back to the hospital abdominal pain and purulent FRANCESCA drainage CT abdominal pelvis concerning for abscess. On today's evaluation that is 12/05/2022 the patient remains to be afebrile, the patient is breathing comfortably on room air denies any chest pain shortness of the cough no nausea vomiting abdominal pain has decreased in intensity still have output from the FRANCESCA drain no vomiting. Patient did have a hemoglobin of 6.9 VitaMist 8.0 creatinine 6.6 the right upper quadrant fluid aspirate cultures currently pending. Objective - Vital Signs Vital signs: Vital Signs Temp 97.7 F 12/05/22 08:00 Pulse 68 12/05/22 08:00 Resp 18 12/05/22 08:00 BP 187/98 12/05/22 08:00 Pulse Ox 97 12/05/22 08:00 FiO2 Intake & Output 12/04/22 12/05/22 12/05/22 18:59 06:59 18:59 Output Total 5 Balance -5 Output: Drainage 5 Right 5 Other: # Voids 0 0 - Exam GENERAL DESCRIPTION: Middle-age female lying in bed in no distress RESPIRATORY SYSTEM: Unlabored breathing , decreased breath sounds at bases HEART: S1 S2 regular rate and rhythm , ABDOMEN: Soft , no tenderness, purulent drainage in the FRANCESCA drain EXTREMITIES: No edema feet - Labs CBC & Chem 7: 12/06/22 05:45 12/06/22 05:45 Labs: Abnormal Lab Results - Last 24 Hours (Table) 11/30/22 12/04/22 12/04/22 Range/Units 11:58 06:48 06:48 WBC 10.19 H (4.50-10.00) X 10*3/uL RBC 2.33 L (4.10-5.20) X 10*6/uL Hgb 7.2 L (12.0-15.0) d/dL Hct 22.2 L (37.2-46.3) % RDW 18.6 H (11.5-14.5) % Neutrophils # 7.87 H (1.80-7.70) X 10*3/uL Haptoglobin (31.2-198.0) mg/dL Sodium (137-145) mmol/L Chloride (98-107) mmol/L Anion Gap 12.80 H (4.00-12.00) mmol/L BUN (7-17) mg/dL Creatinine 5.1 H (0.6-1.5) mg/dL Est GFR (CKD-EPI) 10 L (>=60) BUN/Creatinine Ratio 3.80 L (12.00-20.00) Ratio Calcium 8.3 L (8.7-10.3) mg/dL Iron 27 L (50-170) UG/DL TIBC 136 L (228-460) UG/DL Transferrin 97.1 L (204.0-354.0) mg/dL Ferritin 3132.0 H (10.0-291.0) ng/mL Total Bilirubin 0.2 L (0.3-1.2) mg/dL Total Protein 5.4 L (6.2-8.2) d/dL Albumin 2.8 L (3.8-4.9) d/dL Albumin/Globulin Ratio 1.08 L (1.60-3.17) Ratio Folate (4.40-31.00) ng/mL Fluid Appearance (Clear) 12/04/22 12/04/22 12/04/22 Range/Units 12:45 13:09 13:09 WBC (4.50-10.00) X 10*3/uL RBC (4.10-5.20) X 10*6/uL Hgb (12.0-15.0) d/dL Hct (37.2-46.3) % RDW (11.5-14.5) % Neutrophils # (1.80-7.70) X 10*3/uL Haptoglobin 531.0 H (31.2-198.0) mg/dL Sodium (137-145) mmol/L Chloride (98-107) mmol/L Anion Gap (4.00-12.00) mmol/L BUN (7-17) mg/dL Creatinine (0.6-1.5) mg/dL Est GFR (CKD-EPI) (>=60) BUN/Creatinine Ratio (12.00-20.00) Ratio Calcium (8.7-10.3) mg/dL Iron (50-170) UG/DL TIBC (228-460) UG/DL Transferrin (204.0-354.0) mg/dL Ferritin (10.0-291.0) ng/mL Total Bilirubin (0.3-1.2) mg/dL Total Protein (6.2-8.2) d/dL Albumin (3.8-4.9) d/dL Albumin/Globulin Ratio (1.60-3.17) Ratio Folate 35.30 H (4.40-31.00) ng/mL Fluid Appearance Blood Tinged A (Clear) 12/04/22 12/05/22 Range/Units 13:09 06:42 WBC (4.50-10.00) X 10*3/uL RBC 2.18 L (4.10-5.20) X 10*6/uL Hgb 6.9 L* (12.0-15.0) d/dL Hct 20.6 L (37.2-46.3) % RDW 17.8 H (11.5-14.5) % Neutrophils # (1.80-7.70) X 10*3/uL Haptoglobin (31.2-198.0) mg/dL Sodium 132 L (137-145) mmol/L Chloride 96 L (98-107) mmol/L Anion Gap (4.00-12.00) mmol/L BUN 24 H (7-17) mg/dL Creatinine 5.22 H (0.6-1.5) mg/dL Est GFR (CKD-EPI) (>=60) BUN/Creatinine Ratio (12.00-20.00) Ratio Calcium 8.2 L (8.7-10.3) mg/dL Iron (50-170) UG/DL TIBC (228-460) UG/DL Transferrin (204.0-354.0) mg/dL Ferritin (10.0-291.0) ng/mL Total Bilirubin (0.3-1.2) mg/dL Total Protein 5.9 L (6.2-8.2) d/dL Albumin 2.8 L (3.8-4.9) d/dL Albumin/Globulin Ratio (1.60-3.17) Ratio Folate (4.40-31.00) ng/mL Fluid Appearance (Clear) Assessment and Plan (1) Leukocytosis Current Visit: Yes Status: Acute Code(s): D72.829 - ELEVATED WHITE BLOOD CELL COUNT, UNSPECIFIED SNOMED Code(s): 993739241 (2) Intra-abdominal abscess Current Visit: No Status: Acute Code(s): K65.1 - PERITONEAL ABSCESS SNOMED Code(s): 01525140 Plan: 1patient presented to hospital with abdominal pain and more purulent drainage from the FRANCESCA drain drain high clinic suspicion for intra-abdominal abscess in this patient who did have a complicated history initially of PD catheter associated peritonitis subsequently did have a perforated diverticulitis and intra-abdominal abscess with bacteroids species failing outpatient or antibiotic therapy. 2CT abdominal pelvis did shows evidence of an abscess, and IR has been consulted for drainage of the subphrenic abscess , Patient did have aspirate of the subphrenic fluid and specimen has been sent for cultures Which are currently pending. 4patient to continue cefepime and Flagyl with the discharge antibiotics on the basis of recent culture no need for PICC line Mother at the bedside questions were answered Dictation was produced using [email or web address] dictation software. please excuse any grammatical, word or spelling errors.
--- NOTE | 2022-12-06 22:46 | P.PN ---
Subjective Progress Note Date: 12/06/22 Principal diagnosis: Intra-abdominal abscess Patient is a 42-year-old female with a past medical history significant for end-stage renal disease was on peritoneal dialysis who was recently admitted to the hospital treated for PD catheter associated peritonitis outpatient culture positive for E. coli , subsequent CT did shows evidence of perforated diverticulitis for the patient did have laparotomy drainage of abdominal abscess and did have a diverting colostomy abdominal culture positive for bacteroid species, patient discharged home on oral Ceftin and Flagyl now presenting back to the hospital abdominal pain and purulent FRANCESCA drainage CT abdominal pelvis concerning for abscess. On today's evaluation that is Patient did have a EGD 12/06/2022 with evidence of 3 bleeding gastric ulcer status post endoscopic treatment. On today's evaluation that is 12/06/2022 patient remains to be afebrile, patient is a breathing comfortably on room air. Denies having any chest pain shortness of breath or cough denies having any abdominal pain did have output in the FRANCESCA drain no diarrhea. Patient hemoglobin is 8.0 white count is 9.13 creatinine four-point 5 repeat abdominal aspirate culture 12/04/2022 so far pending Objective - Vital Signs Vital signs: Vital Signs Temp 97.9 F 12/06/22 06:58 Pulse 73 12/06/22 06:58 Resp 16 12/06/22 06:58 BP 174/91 12/06/22 06:58 Pulse Ox 94 L 12/06/22 06:58 FiO2 Intake & Output 12/05/22 12/06/22 12/06/22 18:59 06:59 18:59 Intake Total 750 50 Output Total 3530 Balance -2780 50 Intake: IV 50 Blood Product 0 Unit 0 Hemodialysis 750 Output: Drainage 30 Right 30 Hemodialysis 3500 - Exam GENERAL DESCRIPTION: Middle-age female lying in bed in no distress RESPIRATORY SYSTEM: Unlabored breathing , decreased breath sounds at bases HEART: S1 S2 regular rate and rhythm , ABDOMEN: Soft , no tenderness, purulent drainage in the FRANCESCA drain EXTREMITIES: No edema feet - Labs CBC & Chem 7: 12/06/22 05:45 12/06/22 05:45 Labs: Abnormal Lab Results - Last 24 Hours (Table) 12/04/22 12/05/22 12/06/22 Range/Units 13:09 10:35 05:45 RBC 2.66 L (4.10-5.20) X 10*6/uL Hgb 8.0 L (12.0-15.0) d/dL Hct 25.6 L (37.2-46.3) % MCHC 31.3 L (32.0-37.0) d/dL RDW 17.8 H (11.5-14.5) % Sodium (135-145) mmol/L Chloride (96-109) mmol/L Anion Gap (4.00-12.00) mmol/L Creatinine (0.6-1.5) mg/dL Est GFR (CKD-EPI) (>=60) BUN/Creatinine Ratio (12.00-20.00) Ratio Calcium (8.7-10.3) mg/dL Methylmalonic Acid 0.82 H (<0.40) umol/L Crossmatch See Detail 12/06/22 Range/Units 05:45 RBC (4.10-5.20) X 10*6/uL Hgb (12.0-15.0) d/dL Hct (37.2-46.3) % MCHC (32.0-37.0) d/dL RDW (11.5-14.5) % Sodium 134 L (135-145) mmol/L Chloride 95 L (96-109) mmol/L Anion Gap 13.60 H (4.00-12.00) mmol/L Creatinine 4.5 H (0.6-1.5) mg/dL Est GFR (CKD-EPI) 12 L (>=60) BUN/Creatinine Ratio 4.13 L (12.00-20.00) Ratio Calcium 8.6 L (8.7-10.3) mg/dL Methylmalonic Acid (<0.40) umol/L Crossmatch Microbiology - Last 24 Hours (Table) 12/04/22 12:45 Gram Stain - Preliminary Aspirate Body Fluid Culture - Preliminary 11/30/22 11:55 Blood Culture - Final Blood 11/30/22 11:40 Blood Culture - Final Blood Assessment and Plan (1) Leukocytosis Current Visit: Yes Status: Acute Code(s): D72.829 - ELEVATED WHITE BLOOD CELL COUNT, UNSPECIFIED SNOMED Code(s): 365216479 (2) Intra-abdominal abscess Current Visit: No Status: Acute Code(s): K65.1 - PERITONEAL ABSCESS SNOMED Code(s): 47614207 Plan: 1patient presented to hospital with abdominal pain and more purulent drainage from the FRANCESCA drain drain high clinic suspicion for intra-abdominal abscess in this patient who did have a complicated history initially of PD catheter associated peritonitis subsequently did have a perforated diverticulitis and intra-abdominal abscess with bacteroids species failing outpatient or antibiotic therapy. 2CT abdominal pelvis did shows evidence of an abscess, and IR has been consulted for drainage of the subphrenic abscess , Patient did have aspirate of the subphrenic fluid and specimen has been sent for cultures Which are currently pending. 4plan at this time is to continue with the cefepime and Flagyl while waiting for the IR drain fluid culture to be finalized that will determine her discharge antibiotics for now continue the patient on cefepime and Flagyl Dictation was produced using [employer] dictation software. please excuse any grammatical, word or spelling errors. Time with Patient: Less than 30
[2022-12-07] MEDS: HYDROmorphone 1 MG/ML 1 ML SYRINGE IVP PRN ×3 (00:44→23:17)
[2022-12-07] MEDS: hydrALAZINE HCL 20 MG/ML 1 ML VIAL IVP PRN ×2 (02:30→19:48)
[2022-12-07] MEDS: hydrALAZINE HCL 50 MG TAB PO SCH ×3 (08:20→19:48)
[2022-12-07] MEDS: METOPROLOL TARTRATE 50 MG TAB PO SCH ×2 (08:20→19:48)
[2022-12-07] MEDS: lisinopriL 20 MG TAB PO SCH ×2 (08:21→19:48)
[2022-12-07] MEDS: CEFEPIME 1 GM in SODIUM CHLORIDE 0.9% 50 ML IVPB SCH ×2 (08:21→12:41)
[2022-12-07] MEDS: PANTOPRAZOLE 40 MG/10 ML VIAL IVP SCH ×2 (08:21→19:48)
[2022-12-07] MEDS: metroNIDAZOLE-NS PMX 500 MG in SALINE 1 100ML.BAG IVPB SCH ×4 (08:22→21:54)
[2022-12-07] MEDS: amLODIPine 10 MG TAB PO SCH (08:23)
[2022-12-07] MEDS ORDERED: DARBEPOETIN ALFA 100MCG/0.5ML SYRINGE SQ SCH (09:00)
[2022-12-07] MEDS: SEVELAMER 800 MG TAB PO SCH ×3 (09:17→17:26)
[2022-12-07] MEDS: SIMETHICONE 80 MG CHEWABLE PO SCH ×3 (09:18→17:26)
[2022-12-07] MEDS: SUCRALFATE 1 GM TAB PO SCH ×3 (09:18→16:21)
--- NOTE | 2022-12-07 10:51 | P.PN ---
Subjective Progress Note Date: 12/07/22 CHIEF COMPLAINT: Right lower abdominal pain HISTORY OF PRESENT ILLNESS: Patient receiving hemodialysis. She reports one episode of vomiting yesterday and was mostly foamy and after medication given. She does report improvement in the right lower pelvic pain. Ostomy is functioning. Oral intake decreased. Afebrile. Labs for today pending. Patient status post EGD with 3 bleeding gastric ulcers and a diaphragmatic hiatal hernia. PHYSICAL EXAM: VITAL SIGNS: Reviewed GENERAL: Well-developed in no acute distress. HEENT: No sclera icterus. Extraocular movements grossly intact. Moist buccal mucosa. Head is atraumatic, normocephalic. Hears conversational speech. No nasal drainage. NECK: Supple without lymphadenopathy. CHEST: Non-labored respirations and equal bilateral excursions. CARDIOVASCULAR: Palpable 2+ radial pulses. ABDOMEN: Soft. Nondistended. Ostomy with brown stool. Incision site clean dry and intact. Yellowish drainage on surgical dressing at distal aspect of incision. FRANCESCA drain with purulent drainage MUSCULOSKELETAL: No clubbing or cyanosis. NEUROLOGIC: No focal or lateralizing signs. Cranial nerves II through XII grossly intact. PSYCH: Appropriate affect. Alert and oriented to person, place and time. SKIN: Well perfused. Good skin turgor. ASSESSMENT: 1. Abdominal pain 2. Pelvic abscess 3. Anemia likely related to bleeding gastric ulcers 4. End-stage renal disease on hemodialysis 5. Status post EGD with evidence of 3 acute gastric ulcers with bleeding and diaphragmatic hiatal hernia PLAN: -Continue IV Protonix and Carafate 3 times a day for gastric ulcers -Continue to monitor hemoglobin -Continue IV antibiotics for pelvic abscess -Continue to monitor FRANCESCA drain output -Patient scheduled for EGD tomorrow, 12/06/22 for further evaluation of anemia -Continue IV antibiotics -Continue to monitor FRANCESCA drain output -Follow up on culture results Physician [employer] Support Specialist note has been reviewed by physician. Signing provider agrees with the documented findings, assessment, and plan of care. Objective - Vital Signs Vital signs: Vital Signs Temp 98.2 F 12/07/22 07:36 Pulse 83 12/07/22 07:36 Resp 16 12/07/22 07:36 BP 187/95 12/07/22 07:36 Pulse Ox 94 L 12/07/22 07:36 FiO2 Intake & Output 12/06/22 12/07/22 12/07/22 18:59 06:59 18:59 Intake Total 50 940 Output Total 130 150 Balance 50 810 -150 Weight 88.451 kg Intake: IV 50 Intake, IV Titration 600 Amount Sodium Chloride 0.9% 1, 500 000 ml @ 50 mls/hr IV . Q20H [facility] Rx#:[id number] metroNIDAZOLE-NS PMX 500 100 mg In Saline 1 100ml.bag @ 100 mls/hr IVPB Q8HR [facility] Rx#:[id number] Oral 340 Output: Drainage 30 Right 30 Stool 150 Emesis 100 - Labs CBC & Chem 7: 12/06/22 05:45 12/06/22 05:45 Labs: Abnormal Lab Results - Last 24 Hours (Table) 12/06/22 12/06/22 Range/Units 05:45 05:45 RBC 2.66 L (4.10-5.20) X 10*6/uL Hgb 8.0 L (12.0-15.0) d/dL Hct 25.6 L (37.2-46.3) % MCHC 31.3 L (32.0-37.0) d/dL RDW 17.8 H (11.5-14.5) % Sodium 134 L (135-145) mmol/L Chloride 95 L (96-109) mmol/L Anion Gap 13.60 H (4.00-12.00) mmol/L Creatinine 4.5 H (0.6-1.5) mg/dL Est GFR (CKD-EPI) 12 L (>=60) BUN/Creatinine Ratio 4.13 L (12.00-20.00) Ratio Calcium 8.6 L (8.7-10.3) mg/dL Microbiology - Last 24 Hours (Table) 12/04/22 12:45 Anaerobic Culture - Preliminary Abdominal Fluid 12/04/22 12:45 Gram Stain - Preliminary Aspirate Body Fluid Culture - Preliminary
[2022-12-07 10:54] LABS: Basophils # (A) 0.08 X 10*3/uL (0.00-0.10); Basophils % (A) 0.6 %; Eosinophils % (A) 2.8 %; HCT 28.4 % (37.2-46.3); Lymphocytes # (A) 1.29 X 10*3/uL (0.90-5.00); Lymphocytes % (A) 9.2 %; MCH 30.6 pg (27.0-32.0); MCHC 31.7 d/dL (32.0-37.0); MCV 96.6 FL (80.0-97.0); Mean Platelet Volume 9.5 FL (9.5-12.2); Monocytes # (A) 0.85 X 10*3/uL (0.20-1.00); NRBC Per 100 WBC 0 X 10*3/uL (0.00-0.01); Neutrophils # (A) 11.34 X 10*3/uL (1.80-7.70); Neutrophils % (A) 80.6 %; Platelet Count 278 X 10*3/uL (140-440); RBC 2.94 X 10*6/uL (4.10-5.20); RDW 17.4 % (11.5-14.5); WBC 14.07 X 10*3/uL (4.50-10.00)
--- NOTE | 2022-12-07 10:57 | P.PN ---
Subjective Patient is seen in follow-up for end-stage renal disease. She is maintained on hemodialysis on Saturday schedule. Tolerating dialysis well. Hemoglobin up to 8.0 as of yesterday. Vital signs are stable. General: No acute distress. HEENT: Head exam is unremarkable. LUNGS: No audible rhonchi or wheezes. HEART: Rate and Rhythm are regular. ABDOMEN: Nontender. FRANCESCA drain noted. EXTREMITITES: No edema. Objective - Vital Signs Vital signs: Vital Signs Temp 98.2 F 12/07/22 07:36 Pulse 83 12/07/22 07:36 Resp 16 12/07/22 07:36 BP 187/95 12/07/22 07:36 Pulse Ox 94 L 12/07/22 07:36 FiO2 Intake & Output 12/06/22 12/07/22 12/07/22 18:59 06:59 18:59 Intake Total 50 940 Output Total 130 150 Balance 50 810 -150 Weight 88.451 kg Intake: IV 50 Intake, IV Titration 600 Amount Sodium Chloride 0.9% 1, 500 000 ml @ 50 mls/hr IV . Q20H [facility] Rx#:[id number] metroNIDAZOLE-NS PMX 500 100 mg In Saline 1 100ml.bag @ 100 mls/hr IVPB Q8HR [facility] Rx#:[id number] Oral 340 Output: Drainage 30 Right 30 Stool 150 Emesis 100 - Labs CBC & Chem 7: 12/06/22 05:45 12/06/22 05:45 Labs: Abnormal Lab Results - Last 24 Hours (Table) 12/06/22 12/06/22 Range/Units 05:45 05:45 RBC 2.66 L (4.10-5.20) X 10*6/uL Hgb 8.0 L (12.0-15.0) d/dL Hct 25.6 L (37.2-46.3) % MCHC 31.3 L (32.0-37.0) d/dL RDW 17.8 H (11.5-14.5) % Sodium 134 L (135-145) mmol/L Chloride 95 L (96-109) mmol/L Anion Gap 13.60 H (4.00-12.00) mmol/L Creatinine 4.5 H (0.6-1.5) mg/dL Est GFR (CKD-EPI) 12 L (>=60) BUN/Creatinine Ratio 4.13 L (12.00-20.00) Ratio Calcium 8.6 L (8.7-10.3) mg/dL Microbiology - Last 24 Hours (Table) 12/04/22 12:45 Anaerobic Culture - Preliminary Abdominal Fluid 12/04/22 12:45 Gram Stain - Preliminary Aspirate Body Fluid Culture - Preliminary Assessment and Plan Plan: Assessment: 1. End-stage renal disease maintained on hemodialysis on Saturday schedule. 2. Perforated sigmoid diverticulitis status post surgery in October 2022. 3. Intra-abdominal abscess on IV antibiotics. Infectious disease and surgery following. Wound culture positive for E. coli. May need drainage of the abscess. 4. Hypertension with chronic kidney disease. Stable. 5. Anemia of chronic kidney disease maintained on Aranesp. Component of acute blood loss status post blood transfusions this admission. Status post IV DDAVP 3 doses. EGD showed bleeding gastric ulcer. 6. Chronic kidney disease mineral bone disease maintained on Renvela. Phosphorus 5.5 date 12/02/2022. 7. Hyponatremia secondary to chronic kidney disease. Improved postdialysis. Plan: Currently seen while undergoing hemodialysis. Next treatment on Saturday. Add clonidine.
[2022-12-07 11:04] LABS: ALT 12 U/L (8-44); AST 17 U/L (13-35); Albumin 2.9 d/dL (3.8-4.9); Albumin/Globulin Ratio 1.04 Ratio (1.60-3.17); Alkaline Phosphatase 76 U/L (41-126); BUN/Creat Ratio 4.15 Ratio (12.00-20.00); Blood Urea Nitrogen 25.7 mg/dL (9.0-27.0); Calcium 8.7 mg/dL (8.7-10.3); Carbon Dioxide 23.8 mmol/L (21.6-31.8); Chloride 94 mmol/L (96-109); Globulin 2.8 d/dL (1.6-3.3); Glucose 79 mg/dL (70-110); Potassium 4.2 mmol/L (3.5-5.5); Sodium 133 mmol/L (135-145); Total Bilirubin 0.2 mg/dL (0.3-1.2); Total Protein 5.7 d/dL (6.2-8.2)
[2022-12-07] MEDS: FAMOTIDINE 20 MG TAB PO SCH (12:34)
[2022-12-07] MEDS: cloNIDine HCL 0.1 MG TAB PO SCH ×3 (12:42→21:54)
[2022-12-07] MEDS: FOLIC ACID-VIT B COMPLEX-VIT C 1 CAP PO SCH (12:59)
--- NOTE | 2022-12-07 14:30 | CDI ---
Documentation Clarification Form Date: 12/07/2022 02:22:13 PM From: Gabrielle Luna RN, CCDS Email: [email or web address] Admit Date: 11/30/2022 02:16:00 PM Patient Name: Sincere Phelan Visit Number: [id number] Discharge Date: ATTENTION: The Clinical Documentation Specialists (CDI) and [facility] Coding Staff appreciate your assistance in clarifying documentation. Please respond to the clarification below the line at the bottom and electronically sign. The CDI & [facility] Coding staff will review the response and follow-up if needed. Please note: Queries are made part of the Legal Health Record. If you have any questions, please contact the author of this message via ITS. Dr. Cassia Valentin Sepsis is documented in the H&P and subsequent progress notes which may lack sufficient clinical evidence/support in the medical record. Additional clarification is requested. History/Risk Factors: ESRD, history of peritoneal dialysis who was recently discharged less than 1 week ago for perforated sigmoid diverticulitis with sepsis and descending colostomy. Reports her FRANCESCA drainage is purulent and complains of abdominal pain. Clinical Indicators: H&P: "Acute on chronic anemia; no signs of bleeding; possibly related to chronic kidney disease/sepsis." ID: "abdominal pain and more purulent drainage from the FRANCESCA drain, high clinic suspicion for intra- abdominal abscess." 11/30 CT A/P: small residual peritoneal abscess 12/04 U/S: Small fluid collection seen adjacent to the liver. Ultrasound-guided aspirate sent to pathology for analysis. Vital signs stable during admission 11/30 WBC 20.2; 12/01 WBC 15.6; 12/02 WBC 9.4 11/30-12/02 lactic acid 0.9-0.7-0.5 12/01 Procalcitonin: 2.24 Treatment: 1L 0.9 NS IV bolus on 11/30; IV Zosyn Q12H 3.375gm 11/30-12/01; IV Flagyl 500mg Q8H 11/30-12/07; IV Cefepime 1gm Q24H 12/01-12/07; IV Unasyn 3gm x1 on 11/30 Please clarify if Sepsis is a valid diagnosis? [ ] Yes, Sepsis is present as evidence by (additional clinical support): [ ] No, Sepsis is ruled out [ ] Other (please specify diagnosis) [ ] Unable to determine MTDD
[2022-12-07] MEDS: SODIUM CHLORIDE 0.9% 1,000 ML IV SCH (16:08)
[2022-12-07] MEDS: HYDROmorphone 0.5 MG/0.5 ML SYRINGE IVP PRN (16:09)
--- NOTE | 2022-12-07 16:32 | P.PN ---
Subjective Progress Note Date: 12/07/22 Principal diagnosis: Intra-abdominal abscess Patient is a 42-year-old female with a past medical history significant for end-stage renal disease was on peritoneal dialysis who was recently admitted to the hospital treated for PD catheter associated peritonitis outpatient culture positive for E. coli , subsequent CT did shows evidence of perforated diverticulitis for the patient did have laparotomy drainage of abdominal abscess and did have a diverting colostomy abdominal culture positive for bacteroid species, patient discharged home on oral Ceftin and Flagyl now presenting back to the hospital abdominal pain and purulent FRANCESCA drainage CT abdominal pelvis concerning for abscess. On today's evaluation that is Patient did have a EGD 12/06/2022 with evidence of 3 bleeding gastric ulcer status post endoscopic treatment. On today's evaluation that is 12/07/2022, the patient denies having any fever or any chills, the patient is breathing comfortably on room air, the patient denies having any chest pain, no nausea no vomiting no abdominal pain and no diarrhea has been reported. Patient hemoglobin is 9.0 white count however it is up to 14.07 today creatinine is 6.2 repeat abdominal aspirate culture 12/04/2022 so far negative Objective - Vital Signs Vital signs: Vital Signs Temp 98.2 F 12/07/22 07:36 Pulse 83 12/07/22 07:36 Resp 16 12/07/22 07:36 BP 187/95 12/07/22 07:36 Pulse Ox 94 L 12/07/22 07:36 FiO2 Intake & Output 12/06/22 12/07/22 12/07/22 18:59 06:59 18:59 Intake Total 50 940 Output Total 130 150 Balance 50 810 -150 Weight 88.451 kg Intake: IV 50 Intake, IV Titration 600 Amount Sodium Chloride 0.9% 1, 500 000 ml @ 50 mls/hr IV . Q20H [facility] Rx#:[id number] metroNIDAZOLE-NS PMX 500 100 mg In Saline 1 100ml.bag @ 100 mls/hr IVPB Q8HR [facility] Rx#:[id number] Oral 340 Output: Drainage 30 Right 30 Stool 150 Emesis 100 - Exam GENERAL DESCRIPTION: Middle-age female lying in bed in no distress RESPIRATORY SYSTEM: Unlabored breathing , decreased breath sounds at bases HEART: S1 S2 regular rate and rhythm , ABDOMEN: Soft , no tenderness, purulent drainage in the FRANCESCA drain EXTREMITIES: No edema feet - Labs CBC & Chem 7: 12/07/22 05:37 12/07/22 05:37 Labs: Abnormal Lab Results - Last 24 Hours (Table) 12/07/22 12/07/22 Range/Units 05:37 05:37 WBC 14.07 H (4.50-10.00) X 10*3/uL RBC 2.94 L (4.10-5.20) X 10*6/uL Hgb 9.0 L (12.0-15.0) d/dL Hct 28.4 L (37.2-46.3) % MCHC 31.7 L (32.0-37.0) d/dL RDW 17.4 H (11.5-14.5) % Neutrophils # 11.34 H (1.80-7.70) X 10*3/uL Eosinophils # 0.40 H (0.04-0.35) X 10*3/uL Sodium 133 L (135-145) mmol/L Chloride 94 L (96-109) mmol/L Anion Gap 15.20 H (4.00-12.00) mmol/L Creatinine 6.2 H (0.6-1.5) mg/dL Est GFR (CKD-EPI) 8 L (>=60) BUN/Creatinine Ratio 4.15 L (12.00-20.00) Ratio Total Bilirubin 0.2 L (0.3-1.2) mg/dL Total Protein 5.7 L (6.2-8.2) d/dL Albumin 2.9 L (3.8-4.9) d/dL Albumin/Globulin Ratio 1.04 L (1.60-3.17) Ratio Microbiology - Last 24 Hours (Table) 12/04/22 12:45 Anaerobic Culture - Preliminary Abdominal Fluid 12/04/22 12:45 Gram Stain - Preliminary Aspirate Body Fluid Culture - Preliminary Assessment and Plan (1) Leukocytosis Current Visit: Yes Status: Acute Code(s): D72.829 - ELEVATED WHITE BLOOD CELL COUNT, UNSPECIFIED SNOMED Code(s): 133906709 (2) Intra-abdominal abscess Current Visit: No Status: Acute Code(s): K65.1 - PERITONEAL ABSCESS SNOMED Code(s): 34850970 Plan: 1patient presented to hospital with abdominal pain and more purulent drainage from the FRANCESCA drain drain high clinic suspicion for intra-abdominal abscess in this patient who did have a complicated history initially of PD catheter associ ated peritonitis subsequently did have a perforated diverticulitis and intra- abdominal abscess with bacteroids species failing outpatient or antibiotic therapy. 2CT abdominal pelvis did shows evidence of an abscess, and IR has been consulted for drainage of the subphrenic abscess , Patient did have aspirate of the subphrenic fluid and specimen has been sent for cultures Which are currently pending. 4plan at this time is to continue with the cefepime and Flagyl, however the patient white count jumped today we will hold her discharge repeat a CBC and a CRP with a.m. lab discussed with the MOVIE WRITER for admitting team Dictation was produced using [employer] dictation software. please excuse any grammatical, word or spelling errors. Time with Patient: Less than 30
[2022-12-07] MEDS: tiZANidine 4 MG TAB PO SCH (19:48)
--- NOTE | 2022-12-08 06:02 | P.PN ---
Subjective Progress Note Date: 12/07/22 42-year-old female with a past medical history significant for end-stage renal disease on hemodialysis presents to the ED for chief complaint of abdominal pain. Patient previously discharged from this facility on 11/23/22. Patient initially at this time presented for abdominal pain. Was on peritoneal dialysis at this time. Found to have peritonitis. Additionally, during her stay here had a perforation of sigmoid diverticulitis and patient is status post sigmoid colectomy and ostomy. Additionally has a right FRANCESCA drain in place. Was placed on Ceftin at discharge for 10 days and was supposed to follow up with Dr. Solomon and Dr. Blackburn on an outpatient basis. However, per patient's started to experience abdominal pain 2 days ago. Also notes a change in drainage at her FRANCESCA drain. States that drainage has become purulent and has become malodorous. Denies fever. Denies chest pain or shortness of breath. No other complaints. Last dialysis was on 11/28. Is due for dialysis today. -- Hemoglobin down to 6.2 this morning; we will transfuse with 1 unit packed RBCs; monitor H&H closely --CT of the abdomen is completed and results are pending 12/02/2022 the patient is seen and evaluated in room at bedside; remains to be afebrile, patient is breathing comfortably on room air , the patient denies any chest pain shortness of breath or cough abdominal pain has not decreased in intensity still have a purulent drainage in the FRANCESCA drain no vomiting. Patient white count is down to 9.4, hemoglobin is 5.7, creatinine is 5.10, FRANCESCA drainage culture growing E. coli that is sensitive pathogen; patient has 2 units packed RBCs ordered along with fresh frozen plasma patient presented to hospital with abdominal pain and more purulent drainage from the FRANCESCA drain drain high clinic suspicion for intra-abdominal abscess in this patient who did have a complicated history initially of PD catheter associated peritonitis subsequently did have a perforated diverticulitis and intra-abdominal abscess with bacteroids species failing outpatient or antibiotic therapy. CT abdominal pelvis did shows evidence of an abscess per discussion with the surgeon the FRANCESCA drain is inside the abscess cavity and no need for further drainage FRANCESCA drain culture growing E. coli that is a sensitive pathogen patient to continue with the cefepime and Flagyl and monitor clinical course closely 12/03/2022 Patient is seen and evaluated in follow-up this morning currently receiving hemodialysis and patient is maintained on Saturday/Saturday/Saturday schedule. Infectious disease along with general surgery also following and culture showing E. coli. General surgery recommending interventional radiology consult for possible drainage of the abdominal wound and will consult. No interventional radiology available today and will place for tomorrow. Patient also having a drop in hemoglobin and will consult hematology and appreciate input and recommendations. Patient is currently afebrile with no reports of chest pain or shortness of breath. Patient tolerating diet well will not eating very much. Patient will likely need to be nothing by mouth at midnight for possible interventional radiology evaluation. 12/04/2022 Patient is seen and evaluated today with multiple medical consultations following. A patient is nothing by mouth and being evaluated by interventional radiology for evaluation of additional abscess and need for drainage. Initially ultrasound noted that the abscess was significantly smaller with no area for drainage noted. Upon further evaluation with ultrasound Dr. Rogers was able to aspirate a small amount of fluid for analysis which was sent. Patient is continued on antibiotics with infectious disease following closely. Patient will receive another session of hemodialysis tomorrow. Patient will likely need IV antibiotics per infectious disease and general surgery and awaiting finalized cultures and verifying with IV antibiotics are covered per case management. Patient is afebrile with no reports of chest pain or shortness of breath. Tolerating diet with no reported nausea or vomiting. 12/06/2022 Patient is seen in follow-up today with multiple medical consultations following. Patient is status post EGD today with Dr. Smith surgery and awaiting official report. Hematology following as well undergoing anemia workup. Patient is continued on dialysis and arranging for outpatient dialysis antibiotics with infectious disease following closely. Awaiting finalized cultures on the most recent aspirate from IR. Patient is afebrile with no reported chest pain or shortness of breath. Patient is tolerating diet although concerned with several restrictions on renal diet. Okay for regular diet with low potassium and will follow-up with repeat labs. 12/07/2022 Patient is seen and evaluated in follow-up today currently receiving hemodialysis as patient is maintained on Saturday/Saturday/Saturday schedule. Patient is status post EGD showing 3 bleeding ulcers and is being maintained on Protonix twice daily along with Carafate. Patient with infectious disease and nephrology following as well and white count was slightly elevated at 14 today and will continue antibiotics IV and infectious disease recommending monitoring for improvements in white count. Patient is afebrile, denies chest pain or shortness of breath. Patient is nervous about going home too soon and she does not want to return to the hospital. Patient will likely receive antibiotics in the form of oral along with having it with each dialysis session per ID recommendations. Encouraged increase activity as tolerated. Review of systems: Constitutional: No reports of fatigue, fever, or chills Cardiovascular: No reports of chest pain or palpitations Respiratory: No reports of shortness of breath or cough GI: No reports of nausea, vomiting, or diarrhea : No reports of dysuria or retention Neurovascular: No reports of weakness or numbness All medications have been reviewed Physical exam: Gen: This is a 42-year-old female who is awake, alert and oriented 3, well- developed, well-nourished, obese HEENT: Head is atraumatic, normocephalic. Pupils equal, round. Sclerae is anicteric. NECK: Supple. No JVD. No lymphadenopathy. No thyromegaly. LUNGS: Clear to auscultation. No wheezes or rhonchi. No intercostal retractions. HEART: Regular rate and rhythm. No murmur. ABDOMEN: Soft. Bowel sounds are present. No masses. tenderness noted on the right . Incision sites are clean dry and intact and the ostomy with stool noted. FRANCESCA drain on the right with continued purulent drainage noted EXTREMITIES: No pedal edema. No calf tenderness. NEUROLOGICAL: Patient is awake, alert and oriented x3. Cranial nerves 2 through 12 are grossly intact. Assessment: -Intra-abdominal abscess, history of PD catheter associated peritonitis along wi th perforated diverticulitis and intra-abdominal abscesses with bacteroids species and failed outpatient therapy -Leukocytosis, secondary to above -Acute on chronic anemia; multifactorial related to chronic kidney disease as well as noted bleeding ulcers 3 on EGD with general surgery -End-stage renal disease/hemodialysis; maintained on Saturday, Saturday and Saturday via permacath -Hypertension history -Obesity with BMI of 33.5 -DVT prophylaxis; SCDs -full code Plan: Patient is currently maintained on hemodialysis with nephrology following and will continue on Saturday/Saturday/Saturday schedule General surgery following and patient EGD which revealed esophagitis along with bleeding ulcers 3 and patient will continue on Protonix along with Carafate and no oral anticoagulation. Awaiting repeat cultures from the aspiration done by interventional radiology, no growth for 48 hours thus far. Patient did develop a white count of 14 with infectious disease following recommending continuing IV antibiotics for now and close monitoring for improvements in white count before returning home. Patient will most likely continue on oral antibiotics along with antibiotics during dialysis sessions Follow-up labs ordered Patient okay for regular diet with low potassium Due to multiple complex medical issues, prognosis is guarded Possible discharge planning in the next 24-48 hours The impression and plan of care has been dictated by Loly Flores, Nurse Practitioner as directed. Dr. Salvatore MD I have performed a history and examination and MDM of this patient, discussed the same with the dictator, and agree with the dictator's assessment and plan as written ,documented as a scribe. Based on total visit time, I have performed more than 50% of the visit. Objective - Vital Signs Vital signs: Vital Signs Temp 98.6 F 12/07/22 13:19 Pulse 85 12/07/22 13:19 Resp 16 12/07/22 13:19 BP 171/87 12/07/22 13:19 Pulse Ox 93 L 12/07/22 13:19 FiO2 Intake & Output 12/06/22 12/07/22 12/07/22 18:59 06:59 18:59 Intake Total 50 940 Output Total 130 150 Balance 50 810 -150 Weight 88.451 kg Intake: IV 50 Intake, IV Titration 600 Amount Sodium Chloride 0.9% 1, 500 000 ml @ 50 mls/hr IV . Q20H [facility] Rx#:[id number] metroNIDAZOLE-NS PMX 500 100 mg In Saline 1 100ml.bag @ 100 mls/hr IVPB Q8HR [facility] Rx#:[id number] Oral 340 Output: Drainage 30 Right 30 Stool 150 Emesis 100 - Labs CBC & Chem 7: 12/07/22 05:37 12/07/22 05:37 Labs: Abnormal Lab Results - Last 24 Hours (Table) 12/07/22 12/07/22 Range/Units 05:37 05:37 WBC 14.07 H (4.50-10.00) X 10*3/uL RBC 2.94 L (4.10-5.20) X 10*6/uL Hgb 9.0 L (12.0-15.0) d/dL Hct 28.4 L (37.2-46.3) % MCHC 31.7 L (32.0-37.0) d/dL RDW 17.4 H (11.5-14.5) % Neutrophils # 11.34 H (1.80-7.70) X 10*3/uL Eosinophils # 0.40 H (0.04-0.35) X 10*3/uL Sodium 133 L (135-145) mmol/L Chloride 94 L (96-109) mmol/L Anion Gap 15.20 H (4.00-12.00) mmol/L Creatinine 6.2 H (0.6-1.5) mg/dL Est GFR (CKD-EPI) 8 L (>=60) BUN/Creatinine Ratio 4.15 L (12.00-20.00) Ratio Total Bilirubin 0.2 L (0.3-1.2) mg/dL Total Protein 5.7 L (6.2-8.2) d/dL Albumin 2.9 L (3.8-4.9) d/dL Albumin/Globulin Ratio 1.04 L (1.60-3.17) Ratio Microbiology - Last 24 Hours (Table) 12/04/22 12:45 Anaerobic Culture - Preliminary Abdominal Fluid 12/04/22 12:45 Gram Stain - Preliminary Aspirate Body Fluid Culture - Preliminary
[2022-12-08] MEDS: HYDROmorphone 1 MG/ML 1 ML SYRINGE IVP PRN ×3 (06:18→19:45)
[2022-12-08] MEDS: SUCRALFATE 1 GM TAB PO SCH ×3 (07:01→17:53)
[2022-12-08] MEDS: SEVELAMER 800 MG TAB PO SCH ×4 (07:01→17:53)
[2022-12-08] MEDS: SIMETHICONE 80 MG CHEWABLE PO SCH ×3 (07:01→17:52)
[2022-12-08 09:16] LABS: BUN/Creat Ratio 4.33 Ratio (12.00-20.00); Blood Urea Nitrogen 22.5 mg/dL (9.0-27.0); Calcium 8.4 mg/dL (8.7-10.3); Carbon Dioxide 26.6 mmol/L (21.6-31.8); Chloride 97 mmol/L (96-109); Glucose 85 mg/dL (70-110); Potassium 3.8 mmol/L (3.5-5.5); Sodium 135 mmol/L (135-145)
[2022-12-08 09:49] LABS: Basophils # (A) 0.07 X 10*3/uL (0.00-0.10); Basophils % (A) 0.7 %; Eosinophils # (A) 0.21 X 10*3/uL (0.04-0.35); Eosinophils % (A) 2.2 %; HCT 25.5 % (37.2-46.3); HGB 8.3 d/dL (12.0-15.0); Lymphocytes # (A) 1.22 X 10*3/uL (0.90-5.00); MCH 30.7 pg (27.0-32.0); MCHC 32.5 d/dL (32.0-37.0); MCV 94.4 FL (80.0-97.0); Mean Platelet Volume 9.3 FL (9.5-12.2); Monocytes # (A) 0.73 X 10*3/uL (0.20-1.00); Monocytes % (A) 7.7 %; NRBC Per 100 WBC 0 X 10*3/uL (0.00-0.01); Neutrophils # (A) 7.13 X 10*3/uL (1.80-7.70); Neutrophils % (A) 75.8 %; Platelet Count 242 X 10*3/uL (140-440); RDW 16.9 % (11.5-14.5); WBC 9.42 X 10*3/uL (4.50-10.00)
[2022-12-08] MEDS: metroNIDAZOLE-NS PMX 500 MG in SALINE 1 100ML.BAG IVPB SCH ×2 (10:21→17:52)
[2022-12-08] MEDS: PANTOPRAZOLE 40 MG/10 ML VIAL IVP SCH ×2 (10:21→21:01)
[2022-12-08] MEDS: METOPROLOL TARTRATE 50 MG TAB PO SCH ×2 (10:22→21:01)
[2022-12-08] MEDS: hydrALAZINE HCL 50 MG TAB PO SCH ×3 (10:22→21:02)
[2022-12-08] MEDS: FOLIC ACID-VIT B COMPLEX-VIT C 1 CAP PO SCH (10:22)
[2022-12-08] MEDS: FAMOTIDINE 20 MG TAB PO SCH (10:22)
[2022-12-08] MEDS: cloNIDine HCL 0.1 MG TAB PO SCH ×3 (10:22→21:02)
[2022-12-08] MEDS: amLODIPine 10 MG TAB PO SCH (10:22)
[2022-12-08] MEDS: lisinopriL 20 MG TAB PO SCH ×2 (10:22→21:01)
[2022-12-08] MEDS: CEFEPIME 1 GM in SODIUM CHLORIDE 0.9% 50 ML IVPB SCH (10:30)
[2022-12-08] MEDS: SODIUM CHLORIDE 0.9% 1,000 ML IV SCH (13:26)
[2022-12-08] MEDS: IOPAMIDOL CONTRAST (ORAL USE) VIAL PO PRN ×2 (15:08→16:13)
--- NOTE | 2022-12-08 15:41 | P.PN ---
Subjective Progress Note Date: 12/08/22 Principal diagnosis: Family at bedside. Complains of swelling of pannus along right side with FRANCESCA. FRANCESCA is purulent. Agree with CT scan prior to discharge. Hgb stable. Objective - Vital Signs Vital signs: Vital Signs Temp 98.1 F 12/08/22 14:00 Pulse 70 12/08/22 14:00 Resp 18 12/08/22 14:00 BP 129/79 12/08/22 14:00 Pulse Ox 96 12/08/22 14:00 FiO2 Intake & Output 12/07/22 12/08/22 12/08/22 18:59 06:59 18:59 Intake Total 300 340 Output Total 3950 80 Balance -3650 340 -80 Intake: Intake, IV Titration 100 Amount metroNIDAZOLE-NS PMX 500 100 mg In Saline 1 100ml.bag @ 100 mls/hr IVPB Q8HR [facility] Rx#:[id number] Oral 240 Hemodialysis 300 Output: Drainage 80 Right 80 Stool 150 Hemodialysis 3800 Other: # Voids 0 - Labs CBC & Chem 7: 12/08/22 05:32 12/08/22 05:32 Labs: Abnormal Lab Results - Last 24 Hours (Table) 12/08/22 12/08/22 Range/Units 05:32 05:32 RBC 2.70 L (4.10-5.20) X 10*6/uL Hgb 8.3 L (12.0-15.0) d/dL Hct 25.5 L (37.2-46.3) % RDW 16.9 H (11.5-14.5) % MPV 9.3 L (9.5-12.2) FL Creatinine 5.2 H (0.6-1.5) mg/dL Est GFR (CKD-EPI) 10 L (>=60) BUN/Creatinine Ratio 4.33 L (12.00-20.00) Ratio Calcium 8.4 L (8.7-10.3) mg/dL Microbiology - Last 24 Hours (Table) 12/04/22 12:45 Gram Stain - Preliminary Aspirate Body Fluid Culture - Preliminary
--- NOTE | 2022-12-08 17:34 | P.PN ---
Subjective Progress Note Date: 12/08/22 Principal diagnosis: Intra-abdominal abscess Patient is a 42-year-old female with a past medical history significant for end-stage renal disease was on peritoneal dialysis who was recently admitted to the hospital treated for PD catheter associated peritonitis outpatient culture positive for E. coli , subsequent CT did shows evidence of perforated diverticulitis for the patient did have laparotomy drainage of abdominal abscess and did have a diverting colostomy abdominal culture positive for bacteroid species, patient discharged home on oral Ceftin and Flagyl now presenting back to the hospital abdominal pain and purulent FRANCESCA drainage CT abdominal pelvis concerning for abscess. On today's evaluation that is Patient did have a EGD 12/06/2022 with evidence of 3 bleeding gastric ulcer status post endoscopic treatment. On today's evaluation that is 12/08/2022, the patient remains to be afebrile, the patient is breathing comfortably on room air, the patient denies chest pain shortness of breath or cough, no nausea no vomiting no abdominal pain and no diarrhea has been reported. Patient white count has normalized to 9.4 creatinine is 5.2, CT abdominal pelvis ordered by admitting team waiting for finalization Objective - Vital Signs Vital signs: Vital Signs Temp 98.1 F 12/08/22 14:00 Pulse 70 12/08/22 14:00 Resp 18 12/08/22 14:00 BP 129/79 12/08/22 14:00 Pulse Ox 96 12/08/22 14:00 FiO2 Intake & Output 12/07/22 12/08/22 12/08/22 18:59 06:59 18:59 Intake Total 300 340 Output Total 3950 80 Balance -3650 340 -80 Intake: Intake, IV Titration 100 Amount metroNIDAZOLE-NS PMX 500 100 mg In Saline 1 100ml.bag @ 100 mls/hr IVPB Q8HR [facility] Rx#:[id number] Oral 240 Hemodialysis 300 Output: Drainage 80 Right 80 Stool 150 Hemodialysis 3800 Other: # Voids 0 - Exam GENERAL DESCRIPTION: Middle-age female lying in bed in no distress RESPIRATORY SYSTEM: Unlabored breathing , decreased breath sounds at bases HEART: S1 S2 regular rate and rhythm , ABDOMEN: Soft , no tenderness, purulent drainage in the FRANCESCA drain EXTREMITIES: No edema feet - Labs CBC & Chem 7: 12/08/22 05:32 12/08/22 05:32 Labs: Abnormal Lab Results - Last 24 Hours (Table) 12/08/22 12/08/22 Range/Units 05:32 05:32 RBC 2.70 L (4.10-5.20) X 10*6/uL Hgb 8.3 L (12.0-15.0) d/dL Hct 25.5 L (37.2-46.3) % RDW 16.9 H (11.5-14.5) % MPV 9.3 L (9.5-12.2) FL Creatinine 5.2 H (0.6-1.5) mg/dL Est GFR (CKD-EPI) 10 L (>=60) BUN/Creatinine Ratio 4.33 L (12.00-20.00) Ratio Calcium 8.4 L (8.7-10.3) mg/dL Microbiology - Last 24 Hours (Table) 12/04/22 12:45 Gram Stain - Preliminary Aspirate Body Fluid Culture - Preliminary Assessment and Plan (1) Leukocytosis Current Visit: Yes Status: Acute Code(s): D72.829 - ELEVATED WHITE BLOOD CELL COUNT, UNSPECIFIED SNOMED Code(s): 233470490 (2) Intra-abdominal abscess Current Visit: No Status: Acute Code(s): K65.1 - PERITONEAL ABSCESS SNOMED Code(s): 22814540 Plan: 1patient presented to hospital with abdominal pain and more purulent drainage from the FRANCESCA drain drain high clinic suspicion for intra-abdominal abscess in this patient who did have a complicated history initially of PD catheter associated peritonitis subsequently did have a perforated diverticulitis and intra-abdominal abscess with bacteroids species failing outpatient or antibiotic therapy. 2CT abdominal pelvis did shows evidence of an abscess, and IR has been consulted for drainage of the subphrenic abscess , Patient did have aspirate of the subphrenic fluid and specimen has been sent for cultures Which are currently pending. 4patient to continue with the cefepime and Flagyl, waiting for repeat CT to be finalized Family the bedside and multiple questions were answered Dictation was produced using [employer] software. please excuse any grammatical, word or spelling errors. Time with Patient: Less than 30
--- NOTE | 2022-12-08 20:06 | CT ---
EXAMINATION TYPE: CT abdomen pelvis wo con DATE OF EXAM: 12/08/2022 COMPARISON: 11/30/2022 INDICATION: abdominal pain, persistent abscess DLP: 1076.4 mGycm, Automated exposure control for dose reduction was used. CONTRAST: 0 mL of Isovue 300. Study performed with Oral Contrast TECHNIQUE: Axial images were obtained from above the diaphragm to the pubic rami in the axial plane a t 5 mm thick sections. Reconstructed images are reviewed on the computer in the coronal plane. FINDINGS: Limited CT sections are obtained the lung bases. Small bilateral pleural effusions are present.. CT ABDOMEN: Liver: Normal Spleen: Normal Pancreas: Normal Adrenal glands: The adrenal glands are normal. Gallbladder: There may be some increased density within the neck of the gallbladder. Kidneys: Kidneys are atrophic. Nonobstructing punctate renal stones are at the mid to inferior poles bilaterally. Largest calcification on the right is 0.3 cm. Largest calcification on the left measures 0.4 cm. No hydronephrosis is present. No cysts are present. Aorta: Normal Inferior vena cava: Normal. CT PELVIS: Subcutaneous densities near the excision are diminished in size from comparison. Resolving seromas may be present. Infection is not entirely excluded. No wall or air is evident however. There is an ostomy in the left lower quadrant. Oral contrast extends to the ostomy site. Loops of bow el distended with oral contrast appear normal. There are loops of bowel which are incompletely disten ded or lack oral contrast limiting their evaluation. Appendix: Normal as visualized Urinary bladder: Normal. Genitourinary structures: Uterus is normal. Adnexa are normal. Osseous structures: No suspicious lytic or sclerotic lesions. IMPRESSION: 1. Small bilateral pleural effusions. 2. Nonobstructing renal stones within the atrophic kidneys. There is improving subcutaneous densities along the incision line.
--- NOTE | 2022-12-08 20:40 | PN ---
PROGRESS NOTE DATE OF SERVICE: 12/08/2022 SUBJECTIVE: The patient is a 42-year-old woman who was admitted with multiple medical problems including abdominal abscess, persistent drainage. She complains of some pain and discomfort and cultures are showing E coli, which is rather poly sensitive. PAST MEDICAL HISTORY: Reviewed. REVIEW OF SYSTEMS: A 14-point review is negative except as mentioned earlier. CURRENT MEDICATIONS: Reviewed include ampicillin, dose and rest of medications noted. OBJECTIVE: VITAL SIGNS: Pulse is 70, blood pressure 110/70 respirations 18. CHEST: No rhonchi, no crackles. ABDOMEN: Soft, mild diffuse discomfort. NERVOUS SYSTEM: No focal deficits. LABORATORY DATA: WBC of 9.42, it was 14.07 yesterday. Other labs are noted. ASSESSMENT: 1. Intraabdominal abscess and with perforated diverticulitis, status post drainage. 2. Leukocytosis. 3. Acute on chronic anemia. 4. History of renal disease. 5. Obesity with body mass index 33.5. RECOMMENDATIONS: Recommended to continue current management, continue symptomatic treatment. Recommend to repeat CT scan of abdomen and pelvis and continue to monitor, closely follow with multiple consultants. Guarded prognosis. Further recommendations to follow. The patient is on Flagyl as well. MMODL / IJN: [id number] /
[2022-12-08] MEDS: tiZANidine 4 MG TAB PO SCH (21:01)
[2022-12-09] MEDS: metroNIDAZOLE-NS PMX 500 MG in SALINE 1 100ML.BAG IVPB SCH ×3 (00:06→17:10)
[2022-12-09] MEDS: HYDROmorphone 1 MG/ML 1 ML SYRINGE IVP PRN ×4 (00:12→22:08)
[2022-12-09] MEDS: SUCRALFATE 1 GM TAB PO SCH ×3 (06:46→17:12)
[2022-12-09] MEDS: SIMETHICONE 80 MG CHEWABLE PO SCH ×3 (06:46→17:12)
[2022-12-09] MEDS: SEVELAMER 800 MG TAB PO SCH ×3 (06:46→17:12)
[2022-12-09] MEDS: SODIUM CHLORIDE 0.9% 1,000 ML IV SCH (06:48)
[2022-12-09 09:26] LABS: Basophils # (A) 0.09 X 10*3/uL (0.00-0.10); Basophils % (A) 1.1 %; Eosinophils # (A) 0.27 X 10*3/uL (0.04-0.35); Eosinophils % (A) 3.2 %; HCT 25.4 % (37.2-46.3); HGB 8.2 d/dL (12.0-15.0); Lymphocytes # (A) 1.19 X 10*3/uL (0.90-5.00); Lymphocytes % (A) 14.1 %; MCH 30.6 pg (27.0-32.0); MCHC 32.3 d/dL (32.0-37.0); MCV 94.8 FL (80.0-97.0); Mean Platelet Volume 9.3 FL (9.5-12.2); Monocytes # (A) 0.51 X 10*3/uL (0.20-1.00); NRBC Per 100 WBC 0 X 10*3/uL (0.00-0.01); Neutrophils # (A) 6.34 X 10*3/uL (1.80-7.70); Platelet Count 218 X 10*3/uL (140-440); RBC 2.68 X 10*6/uL (4.10-5.20); RDW 16.8 % (11.5-14.5); WBC 8.45 X 10*3/uL (4.50-10.00)
[2022-12-09] MEDS: FAMOTIDINE 20 MG TAB PO SCH (09:28)
[2022-12-09] MEDS: METOPROLOL TARTRATE 50 MG TAB PO SCH ×2 (09:28→20:46)
[2022-12-09] MEDS: hydrALAZINE HCL 50 MG TAB PO SCH ×3 (09:28→22:04)
[2022-12-09] MEDS: lisinopriL 20 MG TAB PO SCH ×2 (09:28→20:46)
[2022-12-09] MEDS: cloNIDine HCL 0.1 MG TAB PO SCH ×3 (09:28→22:04)
[2022-12-09] MEDS: amLODIPine 10 MG TAB PO SCH (09:28)
[2022-12-09] MEDS: CEFEPIME 1 GM in SODIUM CHLORIDE 0.9% 50 ML IVPB SCH (09:28)
[2022-12-09] MEDS: FOLIC ACID-VIT B COMPLEX-VIT C 1 CAP PO SCH (09:28)
[2022-12-09] MEDS: PANTOPRAZOLE 40 MG/10 ML VIAL IVP SCH ×2 (09:28→20:46)
[2022-12-09 09:36] LABS: ALT 10 U/L (8-44); AST 16 U/L (13-35); Albumin 2.6 d/dL (3.8-4.9); Albumin/Globulin Ratio 1.13 Ratio (1.60-3.17); Alkaline Phosphatase 58 U/L (41-126); BUN/Creat Ratio 4.86 Ratio (12.00-20.00); Blood Urea Nitrogen 32.1 mg/dL (9.0-27.0); Calcium 8.4 mg/dL (8.7-10.3); Carbon Dioxide 24.6 mmol/L (21.6-31.8); Chloride 96 mmol/L (96-109); Globulin 2.3 d/dL (1.6-3.3); Glucose 87 mg/dL (70-110); Potassium 3.8 mmol/L (3.5-5.5); Sodium 132 mmol/L (135-145); Total Bilirubin 0.2 mg/dL (0.3-1.2); Total Protein 4.9 d/dL (6.2-8.2)
[2022-12-09] MEDS: NYSTATIN 100,000 UNIT/GM POWD 15 GM TOPICAL SCH ×2 (11:06→20:50)
--- NOTE | 2022-12-09 12:37 | P.PN ---
Subjective Progress Note Date: 12/09/22 Principal diagnosis: She reports feeling well. She also reports moderate decreased drainage from FRANCESCA. Tolerating diet WBC normal. Hgb stable FRANCESCA becoming more thin to clear from thick purulent CT independently reviewed with edema along the subcutaneous tissue. This is my independent interpretation. PLAN: 1. May discharge from surgical standpoint when medically cleared 2. Antibiotic management per infectious disease 3. Planned removal of drain for 12/18 pending outputs. Recommend antibiotics to continue after drain removal. Objective - Vital Signs Vital signs: Vital Signs Temp 97.5 F L 12/09/22 07:38 Pulse 60 12/09/22 07:38 Resp 19 12/09/22 07:38 BP 160/87 12/09/22 07:38 Pulse Ox 97 12/09/22 07:38 FiO2 Intake & Output 12/08/22 12/09/22 12/09/22 18:59 06:59 18:59 Output Total 80 0 Balance -80 0 Output: Drainage 80 0 Right 80 0 Other: # Voids 2 0 - Labs CBC & Chem 7: 12/09/22 06:31 12/09/22 06:31 Labs: Abnormal Lab Results - Last 24 Hours (Table) 12/09/22 12/09/22 Range/Units 06:31 06:31 RBC 2.68 L (4.10-5.20) X 10*6/uL Hgb 8.2 L (12.0-15.0) d/dL Hct 25.4 L (37.2-46.3) % RDW 16.8 H (11.5-14.5) % MPV 9.3 L (9.5-12.2) FL Sodium 132 L (135-145) mmol/L BUN 32.1 H (9.0-27.0) mg/dL Creatinine 6.6 H (0.6-1.5) mg/dL Est GFR (CKD-EPI) 7 L (>=60) BUN/Creatinine Ratio 4.86 L (12.00-20.00) Ratio Calcium 8.4 L (8.7-10.3) mg/dL Total Bilirubin 0.2 L (0.3-1.2) mg/dL Total Protein 4.9 L (6.2-8.2) d/dL Albumin 2.6 L (3.8-4.9) d/dL Albumin/Globulin Ratio 1.13 L (1.60-3.17) Ratio Microbiology - Last 24 Hours (Table) 12/04/22 12:45 Anaerobic Culture - Final Abdominal Fluid 12/04/22 12:45 Gram Stain - Final Aspirate Body Fluid Culture - Final
--- NOTE | 2022-12-09 13:35 | P.PN ---
Subjective Progress Note Date: 12/09/22 Follow-up for ESRD. Objective - Vital Signs Vital signs: Vital Signs Temp 97.5 F L 12/09/22 07:38 Pulse 60 12/09/22 07:38 Resp 19 12/09/22 07:38 BP 160/87 12/09/22 07:38 Pulse Ox 97 12/09/22 07:38 FiO2 Intake & Output 12/08/22 12/09/22 12/09/22 18:59 06:59 18:59 Output Total 80 0 Balance -80 0 Output: Drainage 80 0 Right 80 0 Other: # Voids 2 0 - Exam No acute distress S1-S2 heard Lungs clear No edema Left jugular permacath - Labs CBC & Chem 7: 12/09/22 06:31 12/09/22 06:31 Labs: Abnormal Lab Results - Last 24 Hours (Table) 12/09/22 12/09/22 Range/Units 06:31 06:31 RBC 2.68 L (4.10-5.20) X 10*6/uL Hgb 8.2 L (12.0-15.0) d/dL Hct 25.4 L (37.2-46.3) % RDW 16.8 H (11.5-14.5) % MPV 9.3 L (9.5-12.2) FL Sodium 132 L (135-145) mmol/L BUN 32.1 H (9.0-27.0) mg/dL Creatinine 6.6 H (0.6-1.5) mg/dL Est GFR (CKD-EPI) 7 L (>=60) BUN/Creatinine Ratio 4.86 L (12.00-20.00) Ratio Calcium 8.4 L (8.7-10.3) mg/dL Total Bilirubin 0.2 L (0.3-1.2) mg/dL Total Protein 4.9 L (6.2-8.2) d/dL Albumin 2.6 L (3.8-4.9) d/dL Albumin/Globulin Ratio 1.13 L (1.60-3.17) Ratio Microbiology - Last 24 Hours (Table) 12/04/22 12:45 Anaerobic Culture - Final Abdominal Fluid 12/04/22 12:45 Gram Stain - Final Aspirate Body Fluid Culture - Final Assessment and Plan Assessment: #1 ESRD, MWF #2 perforated sigmoid diverticulitis status post surgery #3 intra-abdominal abscess #4 anemia with chronic kidney disease #5 metabolic bone disease Plan: #1 hemodialysis tomorrow as per outpatient schedule #2 ESRD medications
--- NOTE | 2022-12-09 17:34 | P.PN ---
Subjective Progress Note Date: 12/09/22 Principal diagnosis: Intra-abdominal abscess Patient is a 42-year-old female with a past medical history significant for end-stage renal disease was on peritoneal dialysis who was recently admitted to the hospital treated for PD catheter associated peritonitis outpatient culture positive for E. coli , subsequent CT did shows evidence of perforated diverticulitis for the patient did have laparotomy drainage of abdominal abscess and did have a diverting colostomy abdominal culture positive for bacteroid species, patient discharged home on oral Ceftin and Flagyl now presenting back to the hospital abdominal pain and purulent FRANCESCA drainage CT abdominal pelvis concerning for abscess. On today's evaluation that is Patient did have a EGD 12/06/2022 with evidence of 3 bleeding gastric ulcer status post endoscopic treatment. On today's evaluation that is 12/09/2022, the patient continues to be afebrile, the patient is breathing comfortably and denies any shortness of breath no chest pain or cough, the patient denies having any nausea and vomiting no abdominal pain and no diarrhea Patient white count is normal at 8.45, creatinine is 6.6, CT abdominal pelvis did not show any intra-abdominal abscess Objective - Vital Signs Vital signs: Vital Signs Temp 97.5 F L 12/09/22 07:38 Pulse 60 12/09/22 07:38 Resp 19 12/09/22 07:38 BP 160/87 12/09/22 07:38 Pulse Ox 97 12/09/22 07:38 FiO2 Intake & Output 12/08/22 12/09/22 12/09/22 18:59 06:59 18:59 Output Total 80 20 Balance -80 -20 Output: Drainage 80 20 Right 80 20 Other: # Voids 2 0 - Exam GENERAL DESCRIPTION: Middle-age female lying in bed in no distress RESPIRATORY SYSTEM: Unlabored breathing , decreased breath sounds at bases HEART: S1 S2 regular rate and rhythm , ABDOMEN: Soft , no tenderness, purulent drainage in the FRANCESCA drain EXTREMITIES: No edema feet - Labs CBC & Chem 7: 12/09/22 06:31 12/09/22 06:31 Labs: Abnormal Lab Results - Last 24 Hours (Table) 12/09/22 12/09/22 Range/Units 06:31 06:31 RBC 2.68 L (4.10-5.20) X 10*6/uL Hgb 8.2 L (12.0-15.0) d/dL Hct 25.4 L (37.2-46.3) % RDW 16.8 H (11.5-14.5) % MPV 9.3 L (9.5-12.2) FL Sodium 132 L (135-145) mmol/L BUN 32.1 H (9.0-27.0) mg/dL Creatinine 6.6 H (0.6-1.5) mg/dL Est GFR (CKD-EPI) 7 L (>=60) BUN/Creatinine Ratio 4.86 L (12.00-20.00) Ratio Calcium 8.4 L (8.7-10.3) mg/dL Total Bilirubin 0.2 L (0.3-1.2) mg/dL Total Protein 4.9 L (6.2-8.2) d/dL Albumin 2.6 L (3.8-4.9) d/dL Albumin/Globulin Ratio 1.13 L (1.60-3.17) Ratio Microbiology - Last 24 Hours (Table) 12/04/22 12:45 Anaerobic Culture - Final Abdominal Fluid 12/04/22 12:45 Gram Stain - Final Aspirate Body Fluid Culture - Final Assessment and Plan (1) Leukocytosis Current Visit: Yes Status: Acute Code(s): D72.829 - ELEVATED WHITE BLOOD CELL COUNT, UNSPECIFIED SNOMED Code(s): 008765480 (2) Intra-abdominal abscess Current Visit: No Status: Acute Code(s): K65.1 - PERITONEAL ABSCESS SNOMED Code(s): 20014235 Plan: 1patient presented to hospital with abdominal pain and more purulent drainage from the FRANCESCA drain drain high clinic suspicion for intra-abdominal abscess in this patient who did have a complicated history initially of PD catheter associated peritonitis subsequently did have a perforated diverticulitis and intra-abdominal abscess with bacteroids species failing outpatient or antibiotic therapy. 2CT abdominal pelvis did shows evidence of an abscess, and IR has been consulted for drainage of the subphrenic abscess , Patient did have aspirate of the subphrenic fluid and specimen has been sent for cultures which are negative so far 3patient seemed to have shown clinical improvement afebrile and white count is normal, patient to continue with the cefepime and Flagyl 2 weeks on discharge Family the bedside and multiple questions were answered Dictation was produced using [employer] software. please excuse any grammatical, word or spelling errors. Time with Patient: Less than 30
[2022-12-09] MEDS: tiZANidine 4 MG TAB PO SCH (20:46)
[2022-12-10] MEDS: metroNIDAZOLE-NS PMX 500 MG in SALINE 1 100ML.BAG IVPB SCH ×3 (00:23→17:43)
[2022-12-10] MEDS: HYDROmorphone 1 MG/ML 1 ML SYRINGE IVP PRN (02:27)
--- NOTE | 2022-12-10 04:58 | PN ---
PROGRESS NOTE DATE OF SERVICE: 12/09/2022 SUBJECTIVE: The patient is a 42-year-old woman, who was admitted with intraabdominal abscess and perforated diverticulitis, had drainage and the FRANCESCA drain still has some purulent drainage, but then the repeat CAT scan did not show any acute abnormalities at this time. OBJECTIVE: VITAL SIGNS: Pulse is 60, blood pressure 160/61, respirations 19. CHEST: Few scattered rhonchi. ABDOMEN: Soft. NERVOUS SYSTEM: Nonfocal LABORATORY DATA: Reviewed. ASSESSMENT: 1. Intraabdominal abscess with perforated diverticulitis, status post drainage. 2. Leukocytosis. 3. Acute on chronic anemia. 4. History of renal disease. 5. Obesity with body mass index of 33.5. 6. Multiple complex medical issues. RECOMMENDATIONS: Recommend to continue current management and treatment otherwise at this time continue the antibiotics. Possible discharge in the next 24 hours. Further recommendations to follow. MMODL / IJN: [id number] /
[2022-12-10] MEDS: hydrALAZINE HCL 50 MG TAB PO SCH ×2 (07:37→17:43)
[2022-12-10] MEDS: cloNIDine HCL 0.1 MG TAB PO SCH ×2 (07:37→17:43)
[2022-12-10] MEDS: amLODIPine 10 MG TAB PO SCH (07:37)
[2022-12-10] MEDS: lisinopriL 20 MG TAB PO SCH (07:37)
[2022-12-10] MEDS: FOLIC ACID-VIT B COMPLEX-VIT C 1 CAP PO SCH (08:07)
[2022-12-10] MEDS: SEVELAMER 800 MG TAB PO SCH ×2 (08:07→14:38)
[2022-12-10] MEDS: SUCRALFATE 1 GM TAB PO SCH ×2 (08:07→14:39)
[2022-12-10] MEDS: METOPROLOL TARTRATE 50 MG TAB PO SCH (08:07)
[2022-12-10] MEDS: FAMOTIDINE 20 MG TAB PO SCH (08:07)
[2022-12-10] MEDS: HYDROmorphone 0.5 MG/0.5 ML SYRINGE IVP PRN (08:08)
[2022-12-10] MEDS: SIMETHICONE 80 MG CHEWABLE PO SCH ×2 (08:08→14:38)
[2022-12-10] MEDS: PANTOPRAZOLE 40 MG/10 ML VIAL IVP SCH (08:09)
[2022-12-10] MEDS: CEFEPIME 1 GM in SODIUM CHLORIDE 0.9% 50 ML IVPB SCH (10:29)
[2022-12-10 10:53] LABS: Basophils # (A) 0.07 X 10*3/uL (0.00-0.10); Basophils % (A) 0.7 %; HCT 26.2 % (37.2-46.3); HGB 8.3 d/dL (12.0-15.0); Lymphocytes # (A) 1.44 X 10*3/uL (0.90-5.00); Lymphocytes % (A) 14.6 %; MCH 30.3 pg (27.0-32.0); MCHC 31.7 d/dL (32.0-37.0); MCV 95.6 FL (80.0-97.0); Mean Platelet Volume 9.6 FL (9.5-12.2); Monocytes # (A) 0.53 X 10*3/uL (0.20-1.00); Monocytes % (A) 5.4 %; NRBC Per 100 WBC 0 X 10*3/uL (0.00-0.01); Neutrophils # (A) 7.42 X 10*3/uL (1.80-7.70); Neutrophils % (A) 75.5 %; Platelet Count 220 X 10*3/uL (140-440); RBC 2.74 X 10*6/uL (4.10-5.20); RDW 16.6 % (11.5-14.5); WBC 9.84 X 10*3/uL (4.50-10.00)
[2022-12-10 11:21] LABS: BUN/Creat Ratio 5.36 Ratio (12.00-20.00); Blood Urea Nitrogen 40.2 mg/dL (9.0-27.0); Calcium 8.4 mg/dL (8.7-10.3); Carbon Dioxide 24.2 mmol/L (21.6-31.8); Chloride 97 mmol/L (96-109); Glucose 83 mg/dL (70-110); Potassium 4.6 mmol/L (3.5-5.5); Sodium 133 mmol/L (135-145)
--- NOTE | 2022-12-10 12:02 | P.PN ---
Subjective Progress Note Date: 12/10/22 CHIEF COMPLAINT: Right lower abdominal pain HISTORY OF PRESENT ILLNESS: Patient is lying in bed comfortably. She reports improvement in her pain. Her FRANCESCA drain output is purulent but is starting to clear. Afebrile. WBC 9.84 PHYSICAL EXAM: VITAL SIGNS: Reviewed GENERAL: Well-developed in no acute distress. HEENT: No sclera icterus. Extraocular movements grossly intact. Moist buccal mucosa. Head is atraumatic, normocephalic. Hears conversational speech. No nasal drainage. NECK: Supple without lymphadenopathy. CHEST: Non-labored respirations and equal bilateral excursions. CARDIOVASCULAR: Palpable 2+ radial pulses. ABDOMEN: Soft. Nondistended. Ostomy with brown stool. Incision site clean dry and intact. FRANCESCA drain with purulent drainage MUSCULOSKELETAL: No clubbing or cyanosis. NEUROLOGIC: No focal or lateralizing signs. Cranial nerves II through XII grossly intact. PSYCH: Appropriate affect. Alert and oriented to person, place and time. SKIN: Well perfused. Good skin turgor. ASSESSMENT: 1. Abdominal pain 2. Pelvic abscess 3. Anemia likely related to bleeding gastric ulcers 4. End-stage renal disease on hemodialysis 5. Status post EGD with evidence of 3 acute gastric ulcers with bleeding and diaphragmatic hiatal hernia PLAN: -Patient can be discharged from surgical standpoint when medically cleared -Discharge antibiotics per infectious disease -Continue oral Protonix and Carafate for gastric ulcers at discharge -Patient to be discharged with FRANCESCA drain. Plan removal of drain on 91 pending output. -Recommend antibiotics to continue after drain removal. Physician Portfolio Strategist note has been reviewed by physician. Signing provider agrees with the documented findings, assessment, and plan of care. Objective - Vital Signs Vital signs: Vital Signs Temp 97.8 F 12/10/22 06:35 Pulse 67 12/10/22 06:35 Resp 18 12/10/22 06:35 BP 155/87 12/10/22 06:35 Pulse Ox 96 12/10/22 06:35 FiO2 Intake & Output 12/09/22 12/10/22 12/10/22 18:59 06:59 18:59 Output Total 20 Balance -20 Output: Drainage 20 Right 20 Other: # Voids 2 - Labs CBC & Chem 7: 12/10/22 06:13 12/10/22 06:13
--- NOTE | 2022-12-10 14:25 | P.PN ---
Subjective Progress Note Date: 12/10/22 Principal diagnosis: anemia Pt reports feeling much better since admit. She denies any acute bleeding, hematemesis, melena. Abdominal FRANCESCA drain has significantly reduced volume. Patient denies any pain currently. Objective - Vital Signs Vital signs: Vital Signs Temp 97.8 F 12/10/22 13:23 Pulse 63 12/10/22 13:23 Resp 17 12/10/22 13:23 BP 171/97 12/10/22 13:23 Pulse Ox 96 12/10/22 13:23 FiO2 Intake & Output 12/09/22 12/10/22 12/10/22 18:59 06:59 18:59 Output Total 20 0 Balance -20 0 Weight 88.451 kg Output: Drainage 20 0 Right 20 0 Other: # Voids 2 - Constitutional General appearance: Present: average body habitus, cooperative, no acute distress - EENT Eyes: Present: anicteric sclerae, EOMI ENT: Present: hearing grossly normal - Respiratory Details: Respirations even and unlabored at rest - Cardiovascular Details: Skin warm and dry to the touch - Neurologic Neurologic: Present: CNII-XII intact - Musculoskeletal Musculoskeletal: Present: strength equal bilaterally - Psychiatric Psychiatric: Present: A&O x's 3, appropriate affect, intact judgment & insight - Labs CBC & Chem 7: 12/10/22 06:13 12/10/22 06:13 Labs: Abnormal Lab Results - Last 24 Hours (Table) 12/10/22 12/10/22 Range/Units 06:13 06:13 RBC 2.74 L (4.10-5.20) X 10*6/uL Hgb 8.3 L (12.0-15.0) d/dL Hct 26.2 L (37.2-46.3) % MCHC 31.7 L (32.0-37.0) d/dL RDW 16.6 H (11.5-14.5) % Sodium 133 L (135-145) mmol/L BUN 40.2 H (9.0-27.0) mg/dL Creatinine 7.5 H* (0.6-1.5) mg/dL Est GFR (CKD-EPI) 6 L (>=60) BUN/Creatinine Ratio 5.36 L (12.00-20.00) Ratio Calcium 8.4 L (8.7-10.3) mg/dL - Imaging and Cardiology CT scan - abdomen: report reviewed CT scan - pelvis: report reviewed Assessment and Plan (1) Anemia Current Visit: Yes Status: Chronic Priority: High Code(s): D64.9 - ANEMIA, UNSPECIFIED SNOMED Code(s): 423816971 Plan: Anemia: -Chronic, baseline 7-8 range -Secondary to end-stage renal disease, exacerbated by abscess, acute infection and GI bleed. Nephrology, ID and Surgery following -Status post 3 units of PRBCs and 1 units FFP since admission. Hemoglobin 8.3 today, stable. -Anemia workup did not reveal any nutritional deficiencies, hemolysis workup negative -EGD revealed active bleeding gastric ulcer 3. She is being treated medically for the same. -On Aranesp through Nephrology -Transfuse for hemoglobin less than 7
--- NOTE | 2022-12-10 17:42 | P.PN ---
Subjective Progress Note Date: 12/10/22 Principal diagnosis: Intra-abdominal abscess Patient is a 42-year-old female with a past medical history significant for end-stage renal disease was on peritoneal dialysis who was recently admitted to the hospital treated for PD catheter associated peritonitis outpatient culture positive for E. coli , subsequent CT did shows evidence of perforated diverticulitis for the patient did have laparotomy drainage of abdominal abscess and did have a diverting colostomy abdominal culture positive for bacteroid species, patient discharged home on oral Ceftin and Flagyl now presenting back to the hospital abdominal pain and purulent FRANCESCA drainage CT abdominal pelvis concerning for abscess. On today's evaluation that is Patient did have a EGD 12/06/2022 with evidence of 3 bleeding gastric ulcer status post endoscopic treatment. On today's evaluation that is 12/10/2022, the patient remains to be afebrile, the patient is breathing comfortably , the patient denies having any chest pain or cough, the patient denies nausea and vomiting no abdominal pain and no diarrhea Patient white count is normal at 9.84, creatinine is 7.5, CT abdominal pelvis did not show any intra-abdominal abscess Objective - Vital Signs Vital signs: Vital Signs Temp 97.8 F 12/10/22 06:35 Pulse 67 12/10/22 06:35 Resp 18 12/10/22 06:35 BP 155/87 12/10/22 06:35 Pulse Ox 96 12/10/22 06:35 FiO2 Intake & Output 12/09/22 12/10/22 12/10/22 18:59 06:59 18:59 Output Total 20 0 Balance -20 0 Output: Drainage 20 0 Right 20 0 Other: # Voids 2 - Exam GENERAL DESCRIPTION: Middle-age female lying in bed in no distress RESPIRATORY SYSTEM: Unlabored breathing , decreased breath sounds at bases HEART: S1 S2 regular rate and rhythm , ABDOMEN: Soft , no tenderness, purulent drainage in the FRANCESCA drain EXTREMITIES: No edema feet - Labs CBC & Chem 7: 12/10/22 06:13 12/10/22 06:13 Assessment and Plan (1) Leukocytosis Current Visit: Yes Status: Acute Code(s): D72.829 - ELEVATED WHITE BLOOD CELL COUNT, UNSPECIFIED SNOMED Code(s): 821604817 (2) Intra-abdominal abscess Current Visit: No Status: Acute Code(s): K65.1 - PERITONEAL ABSCESS SNOMED Code(s): 82144819 Plan: 1patient presented to hospital with abdominal pain and more purulent drainage from the FRANCESCA drain drain high clinic suspicion for intra-abdominal abscess in this patient who did have a complicated history initially of PD catheter associated peritonitis subsequently did have a perforated diverticulitis and intra-abdominal abscess with bacteroids species failing outpatient or antibiotic therapy. 2CT abdominal pelvis did shows evidence of an abscess, and IR has been consulted for drainage of the subphrenic abscess , Patient did have aspirate of the subphrenic fluid and specimen has been sent for cultures which are negative so far 3patient is slowly clinically improving, the patient is afebrile and white count is normal, patient to continue with the cefepime and Flagyl 2 weeks on discharge and close outpatient follow-up Family the bedside and multiple questions were answered Dictation was produced using [employer] dictation software. please excuse any grammatical, word or spelling errors. Time with Patient: Less than 30
--- NOTE | 2022-12-10 18:36 | P.PN ---
Subjective Patient is seen on Hemodialysis. Comfortable Awake. Tolerating Treatment well. Goal UF about 2.5L-3L No abdominal pain. Objective - Vital Signs Vital signs: Vital Signs Temp 97.8 F 12/10/22 13:23 Pulse 63 12/10/22 13:23 Resp 17 12/10/22 13:23 BP 171/97 12/10/22 13:23 Pulse Ox 96 12/10/22 13:23 FiO2 Intake & Output 12/09/22 12/10/22 12/10/22 18:59 06:59 18:59 Output Total 20 0 Balance -20 0 Weight 88.451 kg Output: Drainage 20 0 Right 20 0 Other: # Voids 2 0 - Exam Comfortable, Alert and oriented x23 No edema. Catheter working well. Abdomen is non tender. - Labs CBC & Chem 7: 12/10/22 06:13 12/10/22 06:13 Labs: Abnormal Lab Results - Last 24 Hours (Table) 12/10/22 12/10/22 Range/Units 06:13 06:13 RBC 2.74 L (4.10-5.20) X 10*6/uL Hgb 8.3 L (12.0-15.0) d/dL Hct 26.2 L (37.2-46.3) % MCHC 31.7 L (32.0-37.0) d/dL RDW 16.6 H (11.5-14.5) % Sodium 133 L (135-145) mmol/L BUN 40.2 H (9.0-27.0) mg/dL Creatinine 7.5 H* (0.6-1.5) mg/dL Est GFR (CKD-EPI) 6 L (>=60) BUN/Creatinine Ratio 5.36 L (12.00-20.00) Ratio Calcium 8.4 L (8.7-10.3) mg/dL Assessment and Plan Assessment: 1 ESRD, MWF #2 perforated sigmoid diverticulitis status post surgery #3 intra-abdominal abscess #4 anemia with chronic kidney disease #5 metabolic bone disease Plan: Continue HD on MWF schedule.
--- NOTE | 2022-12-11 00:52 | P.DS ---
Providers Date of admission: 11/30/22 14:16 Expected date of discharge: 12/10/22 Attending physician: Cassia Valentin MD Consults: 11/30/22 14:21 Consult Physician Urgent Consulting Provider: Joanna Blackburn Consult Reason/Comments: abd pain Do you want consulting provider notified?: Yes Consult Physician Urgent Consulting Provider: Jarred Solomon Consult Reason/Comments: peritonitis/sig perf 11/23. Increasing white count and abdominal pain Do you want consulting provider notified?: Yes 11/30/22 14:24 Consult Physician Urgent Consulting Provider: Giovanni Avelar Consult Reason/Comments: Dialysis needed. Also needs CT w/ oral contrast Do you want consulting provider notified?: Yes 12/03/22 15:19 Consult Physician Urgent Consulting Provider: Ge Andrade Consult Reason/Comments: anemia, drop in hemoglobin, esrd Do you want consulting provider notified?: Yes Primary care physician: Alia Keita Hospital Course: Final diagnosis -Intra-abdominal abscess, history of PD catheter associated peritonitis along with perforated diverticulitis and intra-abdominal abscesses with bacteroids species and failed outpatient therapy -Sepsis, present on admission, secondary to intra-abdominal abscess from recent perforated diverticulitis -Leukocytosis, secondary to above -Acute on chronic anemia; multifactorial related to chronic kidney disease as well as noted bleeding ulcers 3 on EGD with general surgery -End-stage renal disease/hemodialysis; maintained on Saturday, Saturday and Saturday via permacath -Hypertension history -Obesity with BMI of 33.5 -DVT prophylaxis; SCDs -full code Discharge disposition Patient is being discharged in a stable condition with guarded prognosis to home with home care. Patient will follow-up with Dr. Keita in the outpatient setting upon discharge. Patient is to continue with hemodialysis as scheduled. Patient will follow-up closely with nephrology along with infectious disease outpatient as well as general surgery. Total time taken is greater than 35 minutes. Hospital course This is a 42-year-old female who was recently admitted with recent hospitalization for perforated diverticulitis with intra-abdominal abscess and failure of outpatient treatment. Multiple medical consultations including infectious disease and nephrology along with hematology following and patient is status post drain placement and will continue on oral antibiotic as well as antibiotics with dialysis and is maintained on Saturday/Saturday/Saturday schedule. White count has improved patient is afebrile and has been cleared by consultations. Patient also being followed for anemia and will follow hematology outpatient. Please refer to other consultation notes for further HPI. Currently no reports of chest pain, shortness of breath, or palpitations. Patient is afebrile. No reports of nausea or vomiting and patient is tolerating diet. Patient will be discharged home in guarded prognosis today. High risk for readmission given patient's significant comorbidities and infection. Physical exam: Gen: This is a 42-year-old female who is awake, alert and oriented 3, well-developed, well-nourished, obese HEENT: Head is atraumatic, normocephalic. Pupils equal, round. Sclerae is anicteric. NECK: Supple. No JVD. No lymphadenopathy. No thyromegaly. LUNGS: Clear to auscultation. No wheezes or rhonchi. No intercostal retractions. HEART: Regular rate and rhythm. No murmur. ABDOMEN: Soft. Obese. Bowel sounds are present. No masses. No tenderness. EXTREMITIES: No pedal edema. No calf tenderness. NEUROLOGICAL: Patient is awake, alert and oriented x3. Cranial nerves 2 through 12 are grossly intact. Please refer to medication reconciliation sheet for a list of medications. The impression and plan of care has been dictated by Loly Flores, Nurse Practitioner as directed. Dr. Yolie MD I have performed a history and examination and MDM of this patient, discussed the same with the dictator, and agree with the dictator's assessment and plan as written ,documented as a scribe. Based on total visit time, I have performed more than 50% of the visit. Patient Condition at Discharge: Fair Plan - Discharge Summary Discharge Rx Participant: Yes New Discharge Prescriptions: New metroNIDAZOLE [Flagyl] 500 mg PO TID #42 tab Folic Acid-Vit B Complex-Vit C [Nephrocaps] 1 each PO DAILY #30 cap Sevelamer [Renvela] 800 mg PO DAILY PRN #20 tab PRN Reason: snacks Acetaminophen Tab [Tylenol] 650 mg PO Q6HR PRN tab PRN Reason: Mild Pain Or Fever > 100.5 hydrALAZINE HCL [Apresoline] 100 mg PO TID 30 Days #180 tab Sucralfate [Carafate] 1 gm PO AC-TID 30 Days #90 tab cloNIDine HCL [Catapres] 0.1 mg PO TID #90 tab amLODIPine [Norvasc] 10 mg PO DAILY #30 tab Continue Metoprolol Tartrate [Lopressor] 50 mg PO BID lisinopriL [Zestril] 20 mg PO BID metroNIDAZOLE [Flagyl] 500 mg PO TID 10 Days #30 tab Ondansetron [Zofran] 4 mg PO Q8HR PRN #20 tab PRN Reason: Nausea And Vomiting Velphoro 500mg Chewable Tab 1,000 mg PO TID-W/MEALS Darbepoetin Shahram [Aranesp] 100 mcg SQ Q7D #4 each Simethicone Chew [Mylicon Chew] 160 mg PO TID #40 tab Famotidine [Pepcid] 20 mg PO DAILY #30 tablet tiZANidine HCL [Zanaflex] 4 mg PO HS Discontinued Velphoro 500mg Chewable Tab 500 mg PO DAILY PRN PRN Reason: snacks Renaplex-D 1 tab PO DAILY hydrALAZINE HCL [Apresoline] 50 mg PO TID #90 tab Sodium Bicarbonate Tab 650 mg PO BID #60 tab cefUROXime axetiL [Ceftin] 500 mg PO BID 10 Days #20 tab Discharge Medication List Metoprolol Tartrate [Lopressor] 50 mg PO BID 11/11/21 [History] Velphoro 500mg Chewable Tab 1,000 mg PO TID-W/MEALS 11/02/22 [History] lisinopriL [Zestril] 20 mg PO BID 11/02/22 [History] Darbepoetin Shahram [Aranesp] 100 mcg SQ Q7D #4 each 11/23/22 [Rx] Famotidine [Pepcid] 20 mg PO DAILY #30 tablet 11/23/22 [Rx] Ondansetron [Zofran] 4 mg PO Q8HR PRN #20 tab 11/23/22 [Rx] Simethicone Chew [Mylicon Chew] 160 mg PO TID #40 tab 11/23/22 [Rx] metroNIDAZOLE [Flagyl] 500 mg PO TID 10 Days #30 tab 11/23/22 [Rx] tiZANidine HCL [Zanaflex] 4 mg PO HS 11/30/22 [History] Acetaminophen Tab [Tylenol] 650 mg PO Q6HR PRN tab 12/07/22 [Rx] Folic Acid-Vit B Complex-Vit C [Nephrocaps] 1 each PO DAILY #30 cap 12/07/22 [Rx] Sevelamer [Renvela] 800 mg PO DAILY PRN #20 tab 12/07/22 [Rx] Sucralfate [Carafate] 1 gm PO AC-TID 30 Days #90 tab 12/07/22 [Rx] amLODIPine [Norvasc] 10 mg PO DAILY #30 tab 12/07/22 [Rx] cloNIDine HCL [Catapres] 0.1 mg PO TID #90 tab 12/07/22 [Rx] hydrALAZINE HCL [Apresoline] 100 mg PO TID 30 Days #180 tab 12/07/22 [Rx] metroNIDAZOLE [Flagyl] 500 mg PO TID #42 tab 12/07/22 [Rx] Follow up Appointment(s)/Referral(s): Rasheeda Pugh MD [STAFF PHYSICIAN] - 1 Week (office is closed at time of discharge. Please call to schedule appointment ) [facility] [NON-STAFF] - 12/12/22 [facility], [NON-STAFF] - 1-2 Days Alia Keita MD [Primary Care Provider] - 12/12/22 3:20 pm Jarred Solomon MD [STAFF PHYSICIAN] - 12/20/22 2:30 pm Activity/Diet/Wound Care/Special Instructions: Activity Limited until follow-up follow-up primary care provider on discharge continue current diet Continue dialysis Saturday/Saturday/Saturday Continue with antibiotics per ID recommendations and close outpatient follow-up with ID along with general surgery Continue with wound care and home care services Discharge Disposition: HOME WITH HOME HEALTH SERVICES
[2022-12-14 08:11] VITALS: BP 177/96; PULSE 64; RESP 19; TEMP 97.9
== END 2022-12-10 18:02 | disposition home health service (06) | DRG 720 ==
LOC: EC 10:41 → 4SSUR 14:16
PROVIDERS: ADMIT Internal Medicine; ATTEND Internal Medicine
PROC: 0DJ08ZZ Inspection of Upper Intestinal Tract, Via Natural or Artificial Opening Endoscopic (ICD-10-PCS; principal; 2022-12-06 07:55)
DX: A41.9 Sepsis, unspecified organism (principal); B96.20 Unspecified Escherichia coli [E. coli] as the cause of diseases classified elsewhere; D62 Acute posthemorrhagic anemia; D63.1 Anemia in chronic kidney disease; E66.9 Obesity, unspecified; E86.0 Dehydration; E87.1 Hypo-osmolality and hyponatremia; F41.9 Anxiety disorder, unspecified; G40.909 Epilepsy, unspecified, not intractable, without status epilepticus; I12.0 Hypertensive chronic kidney disease with stage 5 chronic kidney disease or end stage renal disease; K22.10 Ulcer of esophagus without bleeding; K25.0 Acute gastric ulcer with hemorrhage; K44.9 Diaphragmatic hernia without obstruction or gangrene; K57.20 Diverticulitis of large intestine with perforation and abscess without bleeding; K65.1 Peritoneal abscess; K72.10 Chronic hepatic failure without coma; M89.8X9 Other specified disorders of bone, unspecified site; N17.9 Acute kidney failure, unspecified; N18.6 End stage renal disease; N73.9 Female pelvic inflammatory disease, unspecified; K25.4 Chronic or unspecified gastric ulcer with hemorrhage; Z79.899 Other long term (current) drug therapy; Z80.8 Family history of malignant neoplasm of other organs or systems; Z82.49 Family history of ischemic heart disease and other diseases of the circulatory system; Z90.49 Acquired absence of other specified parts of digestive tract; Z93.3 Colostomy status; Z99.2 Dependence on renal dialysis
CPT/HCPCS: 36415; 43235; 74176; 74177; 75989; 76705; 80048; 80053; 82525; 82607; 82728; 82746; 83010; 83540; 83550; 83605; 83615; 83921; 84100; 84145; 84703; 85025; 85045; 85610; 85730; 86850; 86900; 86901; 86920; 87040; 87070; 87075; 87077; 87186; 87205; 89050; 90935; 93005; 96361; 96365; 96375; 99285

== ENCOUNTER 2022-12-11 12:32 | Emergency (ER) | payer OTHER ==
[2022-12-11 12:46] VITALS: RESP 18; TEMP 98.1
--- NOTE | 2022-12-11 13:24 | ED ---
Abdominal Pain HPI - General Source: patient, RN notes reviewed Mode of arrival: ambulatory Limitations: no limitations <Mat Dawkins - Last Filed: 12/11/22 13:20> <Krystyna Givens - Last Filed: 12/11/22 19:09> - General Chief Complaint: Abdominal Pain Stated Complaint: Abn labs/recheck Time Seen by Provider: 12/11/22 13:20 - History of Present Illness Initial Comments: 42-year-old female presents emergency department for evaluation of diarrhea, ostomy complications. Patient has been in the hospital was discharged yesterday she states that she did have semi-formed stool but now it is all liquid which st ates is leaking out of her colostomy and around the edges. Patient states she feels worse and she did yesterday leaving. (Mat Dawkins) Quick note reviewed: 42-year-old female with a past medical history significant for CKD, small bowel obstruction, peritoneal dialysis presents to the emergency department with a chief complaint of abdominal pain. She reports discharge home yesterday . She reports that her symptoms started shortly after having sharp abdominal pain she localizes to the right upper quadrant. Does not radiate anywhere else. She is complaining of accompanied symptoms of nausea and vomiting. She also reports clear urine appearing output in her ostomy bag. Denies known fevers. Her surgeon is Dr. Blackburn (Krystyna Givens) - Related Data Home Medications Medication Instructions Recorded Confirmed Metoprolol Tartrate [Lopressor] 50 mg PO BID 11/11/21 12/11/22 Velphoro 500mg Chewable Tab 1,000 mg PO TID-W/MEALS 11/02/22 12/11/22 lisinopriL [Zestril] 20 mg PO BID 11/02/22 12/11/22 tiZANidine HCL [Zanaflex] 4 mg PO HS 11/30/22 12/11/22 Previous Rx's Medication Instructions Recorded Darbepoetin Shahram [Aranesp] 100 mcg SQ Q7D #4 each 11/23/22 Famotidine [Pepcid] 20 mg PO DAILY #30 tablet 11/23/22 Ondansetron [Zofran] 4 mg PO Q8HR PRN #20 tab 11/23/22 Simethicone Chew [Mylicon Chew] 160 mg PO TID #40 tab 11/23/22 Acetaminophen Tab [Tylenol] 650 mg PO Q6HR PRN tab 12/07/22 Folic Acid-Vit B Complex-Vit C 1 each PO DAILY #30 cap 12/07/22 [Nephrocaps] Sevelamer [Renvela] 800 mg PO DAILY PRN #20 tab 12/07/22 Sucralfate [Carafate] 1 gm PO AC-TID 30 Days #90 tab 12/07/22 amLODIPine [Norvasc] 10 mg PO DAILY #30 tab 12/07/22 cloNIDine HCL [Catapres] 0.1 mg PO TID #90 tab 12/07/22 hydrALAZINE HCL [Apresoline] 100 mg PO TID 30 Days #180 tab 12/07/22 metroNIDAZOLE [Flagyl] 500 mg PO TID #42 tab 12/07/22 Allergies Allergy/AdvReac Type Severity Reaction Status Date / Time Pertussis Vaccines Allergy Unknown Verified 12/11/22 17:54 iron AdvReac Severe Nausea & Verified 12/11/22 17:54 Vomiting & Diarrhea ciprofloxacin [From Cipro] AdvReac UNCONTROLLABLE Verified 12/11/22 17:54 EMOTIONS PER PT Review of Systems ROS Other: All systems not noted in ROS Statement are negative. <Mat Dawkins - Last Filed: 12/11/22 13:20> ROS Other: All systems not noted in ROS Statement are negative. <Krystyna Givens - Last Filed: 12/11/22 19:09> ROS Statement: Those systems with pertinent positive or pertinent negative responses have been documented in the HPI. 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., SWOLLEN OPTICAL NERVE & RETINA , STATES VISION BLURRED AT TIMES., PSEUDO TUMOR BRAIN., HX GOUT, ANEMIA, KIDNEY FAILURE.-HAS DIALYSIS CATHETER AND RECEIVING HEMODIALYSIS -SAT-SAT. HX FSGS (FOCAL SEGMENTAL GLOMERULOSCLEROSIS) History of Any Multi-Drug Resistant Organisms: None Reported Past Surgical History: Section Additional Past Surgical History / Comment(s): PD catheter 01/27/2019, abdominal surgeries in october 2022 Past Anesthesia/Blood Transfusion Reactions: No Reported Reaction Past Psychological History: Anxiety Smoking Status: Former smoker Past Alcohol Use History: Occasional Past Drug Use History: Marijuana - Past Family History Father Family Medical History: Myocardial Infarction ([place]) Additional Family Medical History / Comment(s): FATHER AT AGE 35 OF MASSIVE HEART ATTACK Mother Family Medical History: Cancer, Deep Vein Thrombosis (DVT) Additional Family Medical History / Comment(s): SKIN CANCER <MarizaMat - Last Filed: 12/11/22 13:20> General Exam Limitations: no limitations <Mat Dawkins - Last Filed: 12/11/22 13:20> <Krystyna Givens - Last Filed: 12/11/22 19:09> - General Exam Comments Initial Comments: Visual Physical Exam Vital signs reviewed General: Well-appearing, nontoxic, no acute distress. Head: Normocephalic, atraumatic Eyes: PERRLA, EOMI ENT: Airway patent Chest: Nonlabored breathing Skin: No visual rash, normal skin tone Neuro: Alert and oriented 3 Musculoskeletal: No gross abnormalities (MarizaMat García) General: Alert, in no acute distress Head: atraumatic normocephalic. Eyes PERRL, EOMI intact, mucous membranes moist Respiratory: Lungs clear to auscultation bilaterally Cardiovascular: Abdominal: Soft without guarding or rebound, FRANCESCA drain present, Extremities: Normal inspection with full range of motion and normal capillary refill Neuroogic: alert and oriented 3, CN II-XII intact, able to ambulate with steady gait Skin: warm dry and intact with normal color (Krystyna Givens) Course <Krystyna Givens - Last Filed: 12/11/22 19:09> Vital Signs 12/11/22 12:42 Temperature 98.1 F Pulse Rate 67 Respiratory 18 Rate Blood Pressure 170/100 O2 Sat by Pulse 99 Oximetry - Reevaluation(s) Reevaluation #1: 12/11/22 17:03 Case discussed with my ED attending Dr. Blanco who initially was concerned about the patient's elevated white count. He recommended consulting Dr. Blackburn to see if she recommends CT at the time of evaluation. 12/11/22 17:[address] Blackburn who recommends giving the patient Protonix and Bentyl and 1 L of IV fluids. She reports that it is not necessary to have the CAT scan repeated at this time. She believes patient was stable for after medications to discharge (Krystyna Givens) Medical Decision Making <Mat Dawkins - Last Filed: 12/11/22 13:20> - Lab Data Result diagrams: 12/11/22 15:10 12/11/22 16:15 <Krystyna Givens - Last Filed: 12/11/22 19:09> - Medical Decision Making I performed a quick note portion of discharged signed Mat Dawkins PA-C (Mat Dawkins) - Lab Data Lab Results 12/11/22 12/11/22 12/11/22 Range/Units 15:10 15:10 16:15 WBC 14.9 H (3.8-10.6) k/uL RBC 3.45 L (3.80-5.40) m/uL Hgb 10.7 L D (11.4-16.0) gm/dL Hct 32.2 L (34.0-46.0) % MCV 93.3 (80.0-100.0) fL MCH 30.9 (25.0-35.0) pg MCHC 33.1 (31.0-37.0) g/dL RDW 16.8 H (11.5-15.5) % Plt Count 280 (150-450) k/uL MPV 7.7 Neutrophils % 87 % Lymphocytes % 7 % Monocytes % 3 % Eosinophils % 1 % Basophils % 0 % Neutrophils # 13.0 H (1.3-7.7) k/uL Lymphocytes # 1.1 (1.0-4.8) k/uL Monocytes # 0.5 (0-1.0) k/uL Eosinophils # 0.1 (0-0.7) k/uL Basophils # 0.0 (0-0.2) k/uL Anisocytosis Slight Sodium 130 L (137-145) mmol/L Potassium 4.9 (3.5-5.1) mmol/L Chloride 98 (98-107) mmol/L Carbon Dioxide 23 (22-30) mmol/L Anion Gap 9 mmol/L BUN 28 H (7-17) mg/dL Creatinine 6.10 H (0.52-1.04) mg/dL Est GFR (CKD-EPI)AfAm 9 (>60 ml/min/1.73 sqM) Est GFR (CKD-EPI)NonAf 8 (>60 ml/min/1.73 sqM) Glucose 92 (74-99) mg/dL Plasma Lactic Acid Jame 0.7 (0.7-2.0) mmol/L Calcium 8.8 (8.4-10.2) mg/dL Total Bilirubin 0.8 (0.2-1.3) mg/dL AST 44 H (14-36) U/L ALT 22 (4-34) U/L Alkaline Phosphatase 75 (38-126) U/L Total Protein 6.4 (6.3-8.2) g/dL Albumin 3.1 L (3.5-5.0) g/dL Lipase 274 (23-300) U/L 12/11/22 Range/Units 17:17 WBC (3.8-10.6) k/uL RBC (3.80-5.40) m/uL Hgb (11.4-16.0) gm/dL Hct (34.0-46.0) % MCV (80.0-100.0) fL MCH (25.0-35.0) pg MCHC (31.0-37.0) g/dL RDW (11.5-15.5) % Plt Count (150-450) k/uL MPV Neutrophils % % Lymphocytes % % Monocytes % % Eosinophils % % Basophils % % Neutrophils # (1.3-7.7) k/uL Lymphocytes # (1.0-4.8) k/uL Monocytes # (0-1.0) k/uL Eosinophils # (0-0.7) k/uL Basophils # (0-0.2) k/uL Anisocytosis Sodium (137-145) mmol/L Potassium (3.5-5.1) mmol/L Chloride (98-107) mmol/L Carbon Dioxide (22-30) mmol/L Anion Gap mmol/L BUN (7-17) mg/dL Creatinine (0.52-1.04) mg/dL Est GFR (CKD-EPI)AfAm (>60 ml/min/1.73 sqM) Est GFR (CKD-EPI)NonAf (>60 ml/min/1.73 sqM) Glucose (74-99) mg/dL Plasma Lactic Acid Jame 0.6 L (0.7-2.0) mmol/L Calcium (8.4-10.2) mg/dL Total Bilirubin (0.2-1.3) mg/dL AST (14-36) U/L ALT (4-34) U/L Alkaline Phosphatase (38-126) U/L Total Protein (6.3-8.2) g/dL Albumin (3.5-5.0) g/dL Lipase (23-300) U/L Disposition <Mat Dawkins - Last Filed: 12/11/22 13:20> Is patient prescribed a controlled substance at d/c from ED?: No Time of Disposition: 18:26 <Krystyna Givens - Last Filed: 12/11/22 19:09> Clinical Impression: Chronic renal failure, Colostomy complication, Leukocytosis, Abdominal pain Disposition: HOME SELF-CARE Condition: Stable Instructions (If sedation given, give patient instructions): Abdominal Pain (ED), Colostomy Care (ED) Additional Instructions: These monitor symptoms closely and return if symptoms worsen or persist Referrals: Alia Keita MD [Primary Care Provider] - 1-2 days
[2022-12-11] MEDS ORDERED: SODIUM CHLORIDE 0.9% 1,000 ML IV ONE (15:03)
[2022-12-11] MEDS ORDERED: HYDROmorphone 0.5 MG/0.5 ML SYRINGE IVP STA (15:26)
[2022-12-11] MEDS ORDERED: ONDANSETRON 4 MG/2 ML VIAL IVP STA (15:26)
[2022-12-11 15:37] LABS: Anisocytosis Slight; Basophils % (A) 0 %; Eosinophils # (A) 0.1 k/uL (0-0.7); Eosinophils % (A) 1 %; HCT 32.2 % (34.0-46.0); Lymphocytes # (A) 1.1 k/uL (1.0-4.8); Lymphocytes % (A) 7 %; MCH 30.9 pg (25.0-35.0); MCHC 33.1 g/dL (31.0-37.0); MCV 93.3 fL (80.0-100.0); Mean Platelet Volume 7.7; Monocytes # (A) 0.5 k/uL (0-1.0); Monocytes % (A) 3 %; Neutrophils % (A) 87 %; Platelet Count 280 k/uL (150-450); RBC 3.45 m/uL (3.80-5.40); RDW 16.8 % (11.5-15.5); WBC 14.9 k/uL (3.8-10.6)
[2022-12-11 16:04] LABS: HGB 10.7 gm/dL (11.4-16.0)
[2022-12-11 16:51] LABS: ALT 22 U/L (4-34); African American GFR (CKD) 9 (>60 ml/min/1.73 sqM); Albumin 3.1 g/dL (3.5-5.0); Anion Gap 9 mmol/L; Blood Urea Nitrogen 28 mg/dL (7-17); Calcium 8.8 mg/dL (8.4-10.2); Carbon Dioxide 23 mmol/L (22-30); Chloride 98 mmol/L (98-107); Glucose 92 mg/dL (74-99); Lipase 274 U/L (23-300); Non-African American GFR(CKD) 8 (>60 ml/min/1.73 sqM); Sodium 130 mmol/L (137-145); Total Bilirubin 0.8 mg/dL (0.2-1.3); Total Protein 6.4 g/dL (6.3-8.2)
[2022-12-11 16:59] LABS: AST 44 U/L (14-36); Alkaline Phosphatase 75 U/L (38-126); Potassium 4.9 mmol/L (3.5-5.1)
[2022-12-11] MEDS ORDERED: DICYCLOMINE 10 MG/ML 2 ML AMP IM STA (17:50)
[2022-12-11] MEDS ORDERED: PANTOPRAZOLE 40 MG/10 ML VIAL IVP STA (17:50)
[2022-12-11 19:12] VITALS: BP 154/98; PULSE 70
== END 2022-12-11 20:01 | disposition home or self-care (01) ==
LOC: EC 12:32
DX: K94.00 Colostomy complication, unspecified (principal); I12.9 Hypertensive chronic kidney disease with stage 1 through stage 4 chronic kidney disease, or unspecified chronic kidney disease; N18.9 Chronic kidney disease, unspecified; D72.829 Elevated white blood cell count, unspecified; F12.90 Cannabis use, unspecified, uncomplicated; Z99.2 Dependence on renal dialysis; Z88.1 Allergy status to other antibiotic agents; Z88.7 Allergy status to serum and vaccine; Z91.09 Other allergy status, other than to drugs and biological substances; Z87.891 Personal history of nicotine dependence
CPT/HCPCS: 36415; 80053; 83605; 83690; 85025; 87045; 87046; 99284; 96374; 96375 ×2; 96361; 96372; J0500; J2405; C9113; J1170

== ENCOUNTER 2023-01-28 08:14 | Inpatient (IN) | payer OTHER ==
[2023-01-25 09:47] VITALS: BMI 31.4
--- NOTE | 2023-01-28 07:44 | P.GSHP ---
History of Present Illness H&P Date: 01/28/23 CHIEF COMPLAINT: Cholecystitis HISTORY OF PRESENT ILLNESS: The patient is a 42-year-old female with bowel perforation from diverticulitis and end-stage renal disease. She was on peritoneal dialysis catheter who presented over one to 2 months ago with peritonitis. She underwent multiple exploratory laparotomies. Patient subsequently developed acute cholecystitis. Due to multiple abdominal surgeries, cholecystostomy tube was placed. She presents today for cholecystectomy. PAST MEDICAL HISTORY: Please see list PAST SURGICAL HISTORY: Please see list MEDICATIONS: Please see list ALLERGIES: Please see list SOCIAL HISTORY: Please see list FAMILY HISTORY: Please see list REVIEW OF ORGAN SYSTEMS: CONSTITUTIONAL: No reports of fevers or chills. HEENT: Denies any troubles with the vision or hearing. ENDOCRINE: No reports of hypothyroidism. No diabetes. RESPIRATORY: No recent pneumonias. CARDIOVASCULAR: Denies chest pain or palpitations GI: Has colostomy from perforated diverticulitis. MUSCULOSKELETAL: Has occasional joint pain including back pain. NEURO: No seizure disorders or headaches. No recent stroke. PSYCH: No depression or suicidal ideation. GENITOURINARY: Anuric due to end-stage renal disease. HEMATOLOGIC: Past history of DVTs or pulmonary emboli. SKIN: No skin cancer. PHYSICAL EXAM: VITAL SIGNS: Afebrile vital signs stable GENERAL: Well-developed pleasant in no acute distress. HEENT: No scleral icterus. Extraocular movements grossly intact. Moist buccal mucosa. NECK: Supple without lymphadenopathy. CHEST: Unlabored respirations. Equal bilateral excursions. CARDIOVASCULAR: Regular rate regular rhythm rhythm. Distal 2+ pulses. ABDOMEN: Has colostomy. Has cholecystostomy tube. MUSCULOSKELETAL: No clubbing, cyanosis, or edema. NEURO: Cranial nerves II to XII within normal limits. No focal or lateralizing signs. PSYCH: Alert and oriented to person, place and time. SKIN: Well-perfused good skin turgor. ASSESSMENT: 1. Acute cholecystitis 2. Descending colostomy due to perforated diverticulitis 3. End-stage renal disease, dialysis dependent PLAN: 1. Will need a robotic cholecystectomy possible open. Benefits and risks were described. 2. Heparin for DVT prophylaxis 5000 units. 3. Antibiotic prophylaxis. 4. CBC and CMP on day of procedure 5. Non-narcotic pre and post op pain management reviewed. 6. Indocyanine green for biliary imaging. 7. She is elevated risk due to multiple abdominal surgeries including com orbidities. 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, SWOLLEN OPTICAL NERVE & RETINA, STATES VISION BLURRED AT TIMES, PSEUDO TUMOR BRAIN, HX GOUT, ANEMIA, KIDNEY FAILURE-HAS DIALYSIS CATHETER AND RECEIVING HEMODIALYSIS M -HX FSGS (FOCAL SEGMENTAL GLOMERULOSCLEROSIS), COLITIS, DIVERTICULITIS, BLEEDING GASTRIC ULCER History of Any Multi-Drug Resistant Organisms: None Reported Past Surgical History: Bowel Resection, Section Additional Past Surgical History / Comment(s): peritoneal dialysis catheter and removal, hemodialysis catheter, sigmoid colectomy with colostomy, percutaneous cholecystostomy tube insertion, lysis of adhesions Past Anesthesia/Blood Transfusion Reactions: No Reported Reaction Past Psychological History: Anxiety Smoking Status: Former smoker Past Alcohol Use History: Occasional Additional Past Alcohol Use History / Comment(s): QUIT SMOKING 2001, SMOKED 1/2 PPD, SMOKED 3 YEARS. Past Drug Use History: Marijuana Additional Drug Use History / Comment(s): . - Past Family History Father Family Medical History: Myocardial Infarction ([place]) Additional Family Medical History / Comment(s): FATHER AT AGE 35 OF MASSIVE HEART ATTACK Mother Family Medical History: Cancer, Deep Vein Thrombosis (DVT) Additional Family Medical History / Comment(s): SKIN CANCER Medications and Allergies Home Medications Medication Instructions Recorded Confirmed Type Metoprolol Tartrate [Lopressor] 50 mg PO BID 11/11/21 01/25/23 History Velphoro 500mg Chewable Tab 1,000 mg PO TID-W/MEALS 11/02/22 01/25/23 History lisinopriL [Zestril] 20 mg PO BID 11/02/22 01/25/23 History Famotidine [Pepcid] 20 mg PO DAILY #30 tablet 11/23/22 01/25/23 Rx Ondansetron [Zofran] 4 mg PO Q8HR PRN #20 tab 11/23/22 01/25/23 Rx Simethicone Chew [Mylicon Chew] 160 mg PO TID #40 tab 11/23/22 01/25/23 Rx tiZANidine HCL [Zanaflex] 4 mg PO HS 11/30/22 01/25/23 History Acetaminophen Tab [Tylenol] 650 mg PO Q6HR PRN tab 12/07/22 01/25/23 Rx Sucralfate [Carafate] 1 gm PO AC-TID 30 Days #90 tab 12/07/22 01/25/23 Rx amLODIPine [Norvasc] 10 mg PO DAILY #30 tab 12/07/22 01/25/23 Rx cloNIDine HCL [Catapres] 0.1 mg PO TID #90 tab 12/07/22 01/25/23 Rx hydrALAZINE HCL [Apresoline] 100 mg PO TID 30 Days #180 tab 12/07/22 01/25/23 Rx Darbepoetin Shahram [Aranesp] 100 mcg SQ DIRECTED 12/12/22 01/25/23 History Folic Acid-Vit B Complex-Vit C 1 cap PO DAILY 12/12/22 01/25/23 History [Nephrocaps] metroNIDAZOLE [Flagyl] 500 mg PO TID #42 tab 12/21/22 01/25/23 Rx Sevelamer [Renvela] 800 mg PO DIRECTED 01/25/23 01/25/23 History Allergies Allergy/AdvReac Type Severity Reaction Status Date / Time Pertussis Vaccines Allergy Unknown Verified 01/25/23 09:14 iron AdvReac Severe Nausea & Verified 01/25/23 09:14 Vomiting & Diarrhea ciprofloxacin [From Cipro] AdvReac UNCONTROLLABLE Verified 01/25/23 09:14 EMOTIONS PER PT
[~2023-01-28 08:14] MED LIST changes: +ACETAMINOPHEN TAB 500 MG TAB PO PRN; -DEXAMETHASONE SOD PHOSPHATE 10 MG/ML 1 ML VIAL IV ONE; +DEXAMETHASONE SOD PHOSPHATE 4 MG/ML 1 ML VIAL IV ONE; -HEPARIN SODIUM,PORCINE 5,000 UNIT/ML 1 ML VIAL SQ ONE; +HEPARIN SODIUM,PORCINE/PF 5,000 UNIT/0.5 ML SYRINGE SQ PRN; -HYDROmorphone 0.5 MG/0.5 ML SYRINGE IVP PRN; +INDOCYANINE GREEN 25 MG VIAL IV STA; -LACTATED RINGERS 1,000 ML IV SCH; +LIDOCAINE 1% (10MG/ML) FOR IV START INTRADERMA PRN; -LIDOCAINE 1% 20 ML VIAL (10MG/ML) FOR IV START INTRADERMA PRN; -MIDAZOLAM 2 MG/2 ML VIAL IV PRN; -ONDANSETRON 4 MG/2 ML VIAL IVP ONE; +ONDANSETRON 4 MG/2 ML VIAL IVP PRN; +SCOPOLAMINE 1 MG/72 HR PATCH TRANSDERM ONE; -SCOPOLAMINE 1.5MG/72HR PATCH TRANSDERM ONE; +droPERidol 5 MG/2 ML VIAL IVP ONE
[2023-01-28 09:14] LABS: Anisocytosis Slight; Basophils # (A) 0.1 k/uL (0-0.2); Basophils % (A) 1 %; Eosinophils # (A) 0.3 k/uL (0-0.7); Eosinophils % (A) 3 %; HCT 28.4 % (34.0-46.0); HGB 9.7 gm/dL (11.4-16.0); Lymphocytes # (A) 1.4 k/uL (1.0-4.8); Lymphocytes % (A) 15 %; MCH 33.1 pg (25.0-35.0); MCHC 34.1 g/dL (31.0-37.0); Mean Platelet Volume 7.7; Monocytes # (A) 0.4 k/uL (0-1.0); Monocytes % (A) 4 %; Neutrophils # (A) 6.8 k/uL (1.3-7.7); Neutrophils % (A) 76 %; Platelet Count 292 k/uL (150-450); RBC 2.93 m/uL (3.80-5.40); RDW 16.1 % (11.5-15.5)
[2023-01-28] MEDS ORDERED: MIDAZOLAM 2 MG/2 ML VIAL IVP ONE (09:17)
[2023-01-28] MEDS: LACTATED RINGERS 1,000 ML IV SCH (09:17)
[2023-01-28 09:19] LABS: African American GFR (CKD) 7 (>60 ml/min/1.73 sqM); Albumin 3.8 g/dL (3.5-5.0); Anion Gap 16 mmol/L; Blood Urea Nitrogen 41 mg/dL (7-17); Calcium 9.3 mg/dL (8.4-10.2); Carbon Dioxide 26 mmol/L (22-30); Chloride 98 mmol/L (98-107); Glucose 97 mg/dL (74-99); Non-African American GFR(CKD) 6 (>60 ml/min/1.73 sqM); Sodium 140 mmol/L (137-145); Total Bilirubin 0.5 mg/dL (0.2-1.3); Total Protein 6.8 g/dL (6.3-8.2)
[2023-01-28 09:20] LABS: ALT 19 U/L (4-34); AST 25 U/L (14-36); Alkaline Phosphatase 77 U/L (38-126)
[2023-01-28 09:21] LABS: HCG,Qualitative Serum Not Detected
[2023-01-28] MEDS ORDERED: SUCCINYLCHOLINE CHLORIDE 200 MG/10 ML VIAL IV ONE (09:22)
[2023-01-28] MEDS ORDERED: ROCURONIUM 10 MG/ML (5 ML VIAL) IV ONE (09:22)
[2023-01-28] MEDS ORDERED: LIDOCAINE 1% INJ 10MG/ML (20 ML MDV) ONE (09:22)
[2023-01-28] MEDS ORDERED: MIDAZOLAM 2 MG/2 ML VIAL ONE (09:22)
[2023-01-28] MEDS ORDERED: fentaNYL (PF) 50 MCG/ML 2 ML AMP ONE (09:22)
[2023-01-28] MEDS ORDERED: PROPOFOL 10 MG/ML 20 ML VIAL IV ONE (09:22)
[2023-01-28] MEDS ORDERED: PHENYLEPHRINE 10 MG/ML 5 ML VIAL ONE (09:22)
[2023-01-28] MEDS ORDERED: INDOCYANINE GREEN 25 MG VIAL IV ONE (09:22)
[2023-01-28] MEDS ORDERED: GLYCOPYRROLATE 0.2 MG/ML 2 ML VIAL ONE (09:22)
[2023-01-28] MEDS ORDERED: LIDOCAINE 1%-EPI 1:100,000 50 ML VIAL SQ ONE (09:53)
[2023-01-28] MEDS ORDERED: ACETAMINOPHEN IV (For NPO) 1,000 MG in EMPTY BAG 1 BAG IVPB ONE (12:50)
[2023-01-28] MEDS ORDERED: NALOXONE 0.4 MG/ML 1 ML VIAL IV PRN (12:50)
[2023-01-28] MEDS ORDERED: ONDANSETRON 4 MG TAB PO PRN (12:52)
[2023-01-28] MEDS ORDERED: ACETAMINOPHEN TAB 325 MG TAB PO PRN (12:52)
[2023-01-28] MEDS ORDERED: SEVELAMER 800 MG TAB PO SCH (13:00)
--- NOTE | 2023-01-28 13:13 | P.OP ---
Date of Procedure: 01/28/23 Description of Procedure: SURGEON: DARBY UNGER MD PREOPERATIVE DIAGNOSES: 1. Acute cholecystitis due to gallstones, cystic duct obstruction 2. 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 Dialysis dependent 4. History of peritonitis due to perforated diverticulitis 5. History of gastric ulcers 6. Obesity due to excess calories, BMI 32.0 7. Hypertensive heart disease 8. History of sepsis due to perforated diverticulitis 9. History of cholecystostomy tube POSTOPERATIVE DIAGNOSES: 1. Acute cholecystitis due to gallstones, cystic duct obstruction 2. 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 Dialysis dependent 4. History of peritonitis due to perforated diverticulitis 5. History of gastric ulcers 6. Obesity due to excess calories, BMI 32.0 7. Hypertensive heart disease 8. History of sepsis due to perforated diverticulitis 9. Severe intra-abdominal adhesions/frozen abdomen OPERATION: 1. Diagnostic laparoscopy converted to open cholecystectomy 2. Open extensive lysis of adhesions over 1.5 hours with removal of cholecystostomy tube ESTIMATED BLOOD LOSS: 100 mL. SPECIMENS REMOVED: Gallbladder. COMPLICATIONS: None. OPERATIVE FINDINGS: 1. Severe frozen abdomen prohibiting laparoscopic/robotic cholecystectomy after diagnostic laparoscopy at the left upper quadrant and right upper quadrant and right lower quadrant 2. Thick peritoneal coating throughout the abdomen 3. Large 6-7 cm circumference gallstone 4. Hemostasis along liver bed using Surgicel, removed INDICATIONS: The patient is a 42 year-old female who presents with recent history of sepsis due to perforated diverticulitis with peritonitis. After diverting ostomy, patient developed acute cholecystitis features large gallstone. Cholecystostomy tube was placed. Antibiotic management including pain management was prescribed to manage her cholecystitis. Surgical intervention with cholecystectomy was described. Robotic assisted laparoscopic approach was described. Benefits and risks of the procedure including but not limited to bleeding, infection, injury to the biliary tree was reviewed. Possibility of open technique reviewed. Informed consent was obtained. DESCRIPTION OF PROCEDURE: Patient was brought to the operating room, placed in supine position. After general induction, the abdomen had been prepped and draped in standard sterile fashion. Her ostomy bag was toweled off and secured using large Tegaderm. Her cholecystostomy tube was placed outside of the surgical field and prepped. The robotic da Laura XI system was primed. After a timeout protocol was performed, the patient had been prepped and draped in standard sterile fashion. The patient was injected with indocyanine green. A 5 mm 0 degrees laparoscopic trocar entry was performed along the left upper quadrant. The abdomen insufflated to 15 mmHg pressure which was tolerated well. Diagnostic laparoscopy demonstrated severe peritoneal adhesions including colon to abdominal wall preventing view of the abdomen. A separate stab incision of the right lateral abdominal wall was performed with a 5-mm optical view entry and adhesions were found. A third view 5 mm optical view entry at the right upper quadrant was performed also limited by severe intra-abdominal adhesions. With these findings, images were taken and presented to her mother prior to conversion to open technique. An open tray was obtained. A right upper quadrant oblique incision was made to incorporate the cholecystostomy tube puncture site. A #10 blade was used to enter and dissected into the t subcutaneousissue using electro-Bovie cautery. Hemostasis was checked. The fascia was entered. Insufflation was used to carefully enter the abdomen without injury to the bowel. Dense thick peritoneal coating was identified throughout the abdomen. The gallbladder was encased in surrounding tissue including the proximal transverse colon, omentum adding complexity to the case and requiring extensive lysis of adhesions using blunt and sharp dissection. The cholecystostomy tube was withdrawn with identification of the gallbladder. The gallbladder was carefully dissected from surrounding tissue were extensive lysis of adhesions over 1.5 hrs performed using blunt and sharp dissection. Hemostasis was checked using electro-Bovie cautery including LigaSure. A dome down technique was performed from the fundus of the gallbladder towards the infundibulum. The liver bed was bleeding and controlled using Surgicel hemostatic agent. The cystic duct was isolated and dissected using a right angle and clipped using PLASTIC ligaclips large proximally distally. Three (3) clips were placed on the cystic artery followed by the cystic duct and divided using Bovie cautery. No bile or blood was identified from the clips. Hemostasis was excellent. All towels and sponges were removed from the abdomen. The right upper quadrant incision was closed using double-stranded #1- PDS. The subcutaneous tissue was irrigated and closed using interrupted subdermal 3-0 Vicryl. The puncture incisions were reapproximated using 4-0 Monocryl in an interrupted subcuticular fashion. Exofin tape was applied along the right upper quadrant incisions and liquid glue was applied to the skin. Optifoam was placed along all incisions. At the end of the procedure needle, sponge, and instrument count had been verified correct by the surgical specialist. The patient was transferred to postanesthesia care unit in stable condition. Intraoperative films were shared with the patient's family who were pleased with the level of care. Due to her multiple comorbidities and extensive case, inpatient admission advised.
[2023-01-28] MEDS: HYDROmorphone 0.5 MG/0.5 ML SYRINGE IVP PRN ×3 (13:23→14:10)
[2023-01-28] MEDS: cloNIDine HCL 0.1 MG TAB PO SCH ×2 (17:07→23:56)
[2023-01-28] MEDS: hydrALAZINE HCL 50 MG TAB PO SCH ×2 (17:07→23:55)
[2023-01-28] MEDS: HYDROmorphone 1 MG/ML 1 ML SYRINGE IVP PRN ×2 (17:12→23:52)
[2023-01-28] MEDS: SEVELAMER 800 MG TAB PO SCH (17:12)
[2023-01-28] MEDS: SUCRALFATE 1 GM TAB PO SCH (17:12)
[2023-01-28] MEDS: SIMETHICONE 80 MG CHEWABLE PO SCH ×2 (18:06→23:56)
[2023-01-28] MEDS: METOPROLOL TARTRATE 50 MG TAB PO SCH (23:55)
[2023-01-28] MEDS: lisinopriL 20 MG TAB PO SCH (23:56)
[2023-01-28] MEDS: HEPARIN SODIUM,PORCINE 5,000 UNIT/ML 1 ML VIAL SQ SCH (23:57)
[2023-01-29] MEDS: tiZANidine 4 MG TAB PO SCH ×2 (00:13→22:04)
[2023-01-29] MEDS: LACTATED RINGERS 1,000 ML IV SCH (04:36)
[2023-01-29] MEDS: HYDROmorphone 1 MG/ML 1 ML SYRINGE IVP PRN ×5 (04:38→21:57)
[2023-01-29] MEDS ORDERED: DARBEPOETIN ALFA 100MCG/0.5ML SYRINGE SQ SCH (09:00)
[2023-01-29] MEDS: SEVELAMER 800 MG TAB PO SCH ×3 (09:14→16:48)
[2023-01-29] MEDS: METOPROLOL TARTRATE 50 MG TAB PO SCH ×2 (09:15→22:03)
[2023-01-29] MEDS: hydrALAZINE HCL 50 MG TAB PO SCH ×3 (09:15→22:07)
[2023-01-29] MEDS: SIMETHICONE 80 MG CHEWABLE PO SCH ×3 (09:15→22:04)
[2023-01-29] MEDS: FOLIC ACID-VIT B COMPLEX-VIT C 1 CAP PO SCH (09:15)
[2023-01-29] MEDS: lisinopriL 20 MG TAB PO SCH ×2 (09:15→22:03)
[2023-01-29] MEDS: SUCRALFATE 1 GM TAB PO SCH ×3 (09:15→16:48)
[2023-01-29] MEDS: FAMOTIDINE 20 MG TAB PO SCH (09:15)
[2023-01-29] MEDS: amLODIPine 10 MG TAB PO SCH (09:15)
[2023-01-29] MEDS: cloNIDine HCL 0.1 MG TAB PO SCH (09:16)
[2023-01-29] MEDS: HEPARIN SODIUM,PORCINE 5,000 UNIT/ML 1 ML VIAL SQ SCH ×2 (09:16→22:03)
[2023-01-29 11:08] LABS: ALT 17 U/L (8-44); AST 30 U/L (13-35); Albumin 3.1 d/dL (3.8-4.9); Albumin/Globulin Ratio 1.48 Ratio (1.60-3.17); Alkaline Phosphatase 53 U/L (41-126); BUN/Creat Ratio 3.75 Ratio (12.00-20.00); Blood Urea Nitrogen 19.1 mg/dL (9.0-27.0); Carbon Dioxide 22.5 mmol/L (21.6-31.8); Chloride 103 mmol/L (96-109); Globulin 2.1 d/dL (1.6-3.3); Glucose 87 mg/dL (70-110); Sodium 136 mmol/L (135-145); Total Bilirubin <0.2 mg/dL (0.3-1.2); Total Protein 5.2 d/dL (6.2-8.2)
[2023-01-29 11:11] LABS: Basophils # (A) 0.03 X 10*3/uL (0.00-0.10); Basophils % (A) 0.3 %; Eosinophils # (A) 0.04 X 10*3/uL (0.04-0.35); Eosinophils % (A) 0.4 %; HCT 23.1 % (37.2-46.3); HGB 7.4 d/dL (12.0-15.0); Lymphocytes # (A) 1.41 X 10*3/uL (0.90-5.00); Lymphocytes % (A) 15.8 %; MCH 32.3 pg (27.0-32.0); MCV 100.9 FL (80.0-97.0); Mean Platelet Volume 9.9 FL (9.5-12.2); Monocytes # (A) 0.74 X 10*3/uL (0.20-1.00); Monocytes % (A) 8.3 %; NRBC Per 100 WBC 0 X 10*3/uL (0.00-0.01); Neutrophils # (A) 6.67 X 10*3/uL (1.80-7.70); Neutrophils % (A) 74.8 %; Platelet Count 217 X 10*3/uL (140-440); RBC 2.29 X 10*6/uL (4.10-5.20); RDW 15.6 % (11.5-14.5); WBC 8.93 X 10*3/uL (4.50-10.00)
--- NOTE | 2023-01-29 11:49 | P.NPCON ---
History of Present Illness - Reason for Consult end stage renal disease - History of Present Illness Reason for consultation: End-stage renal disease History of present illness: Patient is a 42-year-old female seen in renal consultation for end-stage renal disease. She is maintained on hemodialysis on Saturday schedule. Completed hemodialysis last night with about 1.2 L ultrafiltration. Treatment was cut short due to clotting of the access. Patient underwent open cholecystectomy with lysis of adhesions on 01/28/2023 due to acute cholecystitis from gallstones and cystic duct obstruction. She is currently on regular diet. No abdominal pain. No vomiting or diarrhea. No chest pain or shortness of breath. Blood pressure on the higher side. Vital signs are stable. General: No acute distress. HEENT: Head exam is unremarkable. LUNGS: No audible rhonchi or wheezes. HEART: Rate and Rhythm are regular. ABDOMEN: Nontender. EXTREMITITES: No edema. 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, SWOLLEN O PTICAL NERVE & RETINA, STATES VISION BLURRED AT TIMES, PSEUDO TUMOR BRAIN, HX GOUT, ANEMIA, KIDNEY FAILURE-HAS DIALYSIS CATHETER AND RECEIVING HEMODIALYSIS [id number] (FOCAL SEGMENTAL GLOMERULOSCLEROSIS), COLITIS, DIVERTICULITIS, BLEEDING GASTRIC ULCER History of Any Multi-Drug Resistant Organisms: None Reported Past Surgical History: Bowel Resection, Section Additional Past Surgical History / Comment(s): peritoneal dialysis catheter and removal, hemodialysis catheter, sigmoid colectomy with colostomy, percutaneous cholecystostomy tube insertion, lysis of adhesions Past Anesthesia/Blood Transfusion Reactions: No Reported Reaction Past Psychological History: Anxiety Smoking Status: Former smoker Past Alcohol Use History: Occasional Additional Past Alcohol Use History / Comment(s): QUIT SMOKING 2001, SMOKED 1/2 PPD, SMOKED 3 YEARS. Past Drug Use History: Marijuana Additional Drug Use History / Comment(s): . - Past Family History Father Family Medical History: Myocardial Infarction ([place]) Additional Family Medical History / Comment(s): FATHER AT AGE 35 OF MASSIVE HEART ATTACK Mother Family Medical History: Cancer, Deep Vein Thrombosis (DVT) Additional Family Medical History / Comment(s): SKIN CANCER Medications and Allergies Home Medications Medication Instructions Recorded Confirmed Type Metoprolol Tartrate [Lopressor] 50 mg PO BID 11/11/21 01/25/23 History Velphoro 500mg Chewable Tab 1,000 mg PO TID-W/MEALS 11/02/22 01/25/23 History lisinopriL [Zestril] 20 mg PO BID 11/02/22 01/25/23 History Famotidine [Pepcid] 20 mg PO DAILY #30 tablet 11/23/22 01/25/23 Rx Ondansetron [Zofran] 4 mg PO Q8HR PRN #20 tab 11/23/22 01/25/23 Rx Simethicone Chew [Mylicon Chew] 160 mg PO TID #40 tab 11/23/22 01/25/23 Rx tiZANidine HCL [Zanaflex] 4 mg PO HS 11/30/22 01/25/23 History Acetaminophen Tab [Tylenol] 650 mg PO Q6HR PRN tab 12/07/22 01/25/23 Rx Sucralfate [Carafate] 1 gm PO AC-TID 30 Days #90 tab 12/07/22 01/25/23 Rx amLODIPine [Norvasc] 10 mg PO DAILY #30 tab 12/07/22 01/25/23 Rx cloNIDine HCL [Catapres] 0.1 mg PO TID #90 tab 12/07/22 01/25/23 Rx hydrALAZINE HCL [Apresoline] 100 mg PO TID 30 Days #180 tab 12/07/22 01/25/23 Rx Darbepoetin Shahram [Aranesp] 100 mcg SQ DIRECTED 12/12/22 01/25/23 History Folic Acid-Vit B Complex-Vit C 1 cap PO DAILY 12/12/22 01/25/23 History [Nephrocaps] metroNIDAZOLE [Flagyl] 500 mg PO TID #42 tab 12/21/22 01/25/23 Rx Sevelamer [Renvela] 800 mg PO DIRECTED 01/25/23 01/25/23 History Allergies Allergy/AdvReac Type Severity Reaction Status Date / Time Pertussis Vaccines Allergy Unknown Verified 01/28/23 08:29 iron AdvReac Severe Nausea & Verified 01/28/23 08:29 Vomiting & Diarrhea ciprofloxacin [From Cipro] AdvReac UNCONTROLLABLE Verified 01/28/23 08:29 EMOTIONS PER PT Physical Exam Vitals: Vital Signs Temp Pulse Resp BP BP Pulse Ox 01/29/23 07:50 97.7 F 62 16 152/84 98 01/29/23 02:00 98.4 F 76 16 165/92 97 01/28/23 23:51 98.5 F 65 16 185/83 100 01/28/23 20:00 76 16 01/28/23 19:39 97.7 F 59 L 16 159/88 97 01/28/23 17:00 65 17 137/84 96 01/28/23 16:05 97.9 F 65 16 150/81 95 01/28/23 15:30 69 16 151/81 100 01/28/23 15:00 68 16 149/78 100 01/28/23 14:31 68 16 140/74 100 01/28/23 14:18 61 18 135/77 01/28/23 14:03 58 L 16 128/75 01/28/23 13:45 62 14 133/79 01/28/23 13:30 61 16 135/78 100 01/28/23 13:15 62 18 141/81 100 01/28/23 13:00 70 18 136/74 100 01/28/23 12:45 67 18 132/72 100 01/28/23 12:32 97.9 F 72 18 140/69 97 Intake and Output 01/28/23 01/29/23 01/29/23 22:59 06:59 14:59 Intake Total 1390 Output Total 1193 Balance 197 Intake: Oral 590 Hemodialysis 800 Output: Hemodialysis 1193 Other: Voiding Method Bedside Commode # Voids 0 Results - Lab Results Most recent lab results Calcium 9.0 mg/dL (8.7-10.3) 01/29/23 06:31 01/29/23 06:31 01/29/23 06:31 Assessment and Plan Plan: Assessment: 1. End-stage renal disease maintained on hemodialysis on Saturday schedule. 2. Acute cholecystitis with cystic duct obstruction status post open cholecystectomy 01/28/2023. 3. Hypertension with chronic kidney disease. 4. Anemia of chronic kidney disease maintained on Aranesp. 5. Chronic kidney disease mineral bone disease maintained on Renvela. Plan: Hemodialysis tomorrow. Will use heparin due to clotting of the axis. Check phosphorus level. Increase dose of clonidine. Check iron studies. Thank you for the consultation. I will continue to follow the patient with you during her hospital stay.
--- NOTE | 2023-01-29 14:27 | P.PN ---
Subjective Progress Note Date: 01/29/23 CHIEF COMPLAINT: Acute cholecystitis HISTORY OF PRESENT ILLNESS: Patient postop day #1 diagnostic laparoscopy converted to open cholecystectomy and extensive lysis of adhesions. Patient reports her pain is controlled. Denies any nausea or vomiting. Tolerating diet. She does have stool in her ostomy bag. Afebrile. WBC 8.93 Hgb 7.4 total bilirubin 0.2 AST 30 ALT 17 alk phos 53 PHYSICAL EXAM: VITAL SIGNS: Reviewed GENERAL: Well-developed in no acute distress. HEENT: No sclera icterus. Extraocular movements grossly intact. Moist buccal mucosa. Head is atraumatic, normocephalic. Hears conversational speech. No nasal drainage. NECK: Supple without lymphadenopathy. CHEST: Non-labored respirations and equal bilateral excursions. CARDIOVASCULAR: Palpable 2+ radial pulses. ABDOMEN: Soft. Nondistended. Tender incision site. Incisional dressing clean dry and intact. Stool in ostomy.. MUSCULOSKELETAL: No clubbing or cyanosis. NEUROLOGIC: No focal or lateralizing signs. Cranial nerves II through XII grossly intact. PSYCH: Appropriate affect. Alert and oriented to person, place and time. SKIN: Well perfused. Good skin turgor. ASSESSMENT: 1. Acute cholecystitis due to gallstones, cystic duct obstruction 2. 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 Dialysis dependent 4. History of peritonitis due to perforated diverticulitis 5. History of gastric ulcers 6. Obesity due to excess calories, BMI 32.0 7. Hypertensive heart disease 8. History of sepsis due to perforated diverticulitis 9. Severe intra-abdominal adhesions/frozen abdomen PLAN: -Continue regular diet -Repeat labs in AM -Continue pain management -Nephrology on consult for dialysis management -DVT prophylaxis subcu heparin Physician [employer] note has been reviewed by physician. Signing provider agrees with the documented findings, assessment, and plan of care. Objective - Vital Signs Vital signs: Vital Signs Temp 97.7 F 01/29/23 07:50 Pulse 62 01/29/23 07:50 Resp 16 01/29/23 07:50 BP 152/84 01/29/23 07:50 Pulse Ox 98 01/29/23 07:50 FiO2 Intake & Output 01/28/23 01/29/23 01/29/23 18:59 06:59 18:59 Intake Total 650 1390 Output Total 100 1193 Balance 550 197 Weight 84.5 kg Intake: IV 650 Oral 590 Hemodialysis 800 Output: Hemodialysis 1193 Estimated Blood Loss 100 Other: Voiding Method Bedside Commode # Voids 0 0 - Labs CBC & Chem 7: 01/29/23 06:31 01/29/23 06:31 Labs: Abnormal Lab Results - Last 24 Hours (Table) 01/29/23 01/29/23 Range/Units 06:31 06:31 RBC 2.29 L (4.10-5.20) X 10*6/uL Hgb 7.4 L (12.0-15.0) d/dL Hct 23.1 L (37.2-46.3) % MCV 100.9 H (80.0-97.0) FL MCH 32.3 H (27.0-32.0) pg RDW 15.6 H (11.5-14.5) % Creatinine 5.1 H (0.6-1.5) mg/dL Est GFR (CKD-EPI) 10 L (>=60) BUN/Creatinine Ratio 3.75 L (12.00-20.00) Ratio Total Bilirubin <0.2 L (0.3-1.2) mg/dL Total Protein 5.2 L (6.2-8.2) d/dL Albumin 3.1 L (3.8-4.9) d/dL Albumin/Globulin Ratio 1.48 L (1.60-3.17) Ratio
[2023-01-29] MEDS: cloNIDine HCL 0.2 MG TAB PO SCH ×2 (16:43→22:04)
[2023-01-29 21:30] LABS: % Iron Saturation 44.06 (12.00-45.00); Phosphorus 6.7 mg/dL (2.4-5.1)
[2023-01-30] MEDS: HYDROmorphone 1 MG/ML 1 ML SYRINGE IVP PRN ×4 (04:48→20:44)
[2023-01-30] MEDS: LACTATED RINGERS 1,000 ML IV SCH (04:52)
[2023-01-30] MEDS: SEVELAMER 800 MG TAB PO SCH ×3 (09:27→17:16)
[2023-01-30] MEDS: SUCRALFATE 1 GM TAB PO SCH ×3 (09:27→17:17)
[2023-01-30] MEDS: cloNIDine HCL 0.2 MG TAB PO SCH ×3 (09:28→21:39)
[2023-01-30] MEDS: METOPROLOL TARTRATE 50 MG TAB PO SCH ×2 (09:28→20:43)
[2023-01-30] MEDS: lisinopriL 20 MG TAB PO SCH ×2 (09:28→20:43)
[2023-01-30] MEDS: hydrALAZINE HCL 50 MG TAB PO SCH ×3 (09:28→21:38)
[2023-01-30] MEDS: SIMETHICONE 80 MG CHEWABLE PO SCH ×3 (09:28→21:38)
[2023-01-30 10:51] LABS: Basophils # (A) 0.05 X 10*3/uL (0.00-0.10); Basophils % (A) 0.4 %; Eosinophils # (A) 0.09 X 10*3/uL (0.04-0.35); Eosinophils % (A) 0.8 %; HCT 21.2 % (37.2-46.3); Lymphocytes # (A) 1.17 X 10*3/uL (0.90-5.00); Lymphocytes % (A) 10.4 %; MCH 32.6 pg (27.0-32.0); MCV 98.6 FL (80.0-97.0); Monocytes # (A) 0.79 X 10*3/uL (0.20-1.00); NRBC Per 100 WBC 0 X 10*3/uL (0.00-0.01); Neutrophils # (A) 9.09 X 10*3/uL (1.80-7.70); Platelet Count 216 X 10*3/uL (140-440); RBC 2.15 X 10*6/uL (4.10-5.20); RDW 15.7 % (11.5-14.5); WBC 11.24 X 10*3/uL (4.50-10.00)
[2023-01-30 11:35] LABS: ALT 13 U/L (8-44); AST 20 U/L (13-35); Albumin 2.9 d/dL (3.8-4.9); Albumin/Globulin Ratio 1.53 Ratio (1.60-3.17); Alkaline Phosphatase 54 U/L (41-126); BUN/Creat Ratio 4.31 Ratio (12.00-20.00); Blood Urea Nitrogen 30.6 mg/dL (9.0-27.0); Calcium 9.6 mg/dL (8.7-10.3); Carbon Dioxide 20.8 mmol/L (21.6-31.8); Chloride 100 mmol/L (96-109); Globulin 1.9 d/dL (1.6-3.3); Glucose 97 mg/dL (70-110); Potassium 4.2 mmol/L (3.5-5.5); Sodium 134 mmol/L (135-145); Total Bilirubin 0.2 mg/dL (0.3-1.2); Total Protein 4.8 d/dL (6.2-8.2)
--- NOTE | 2023-01-30 12:05 | P.PN ---
Subjective Patient is seen in follow-up for end-stage renal disease. She is maintained on hemodialysis on Saturday schedule. Tolerating dialysis well. Hemodynamically stable. Has been eating. Resting in bed. Family present at bedside. Vital signs are stable. General: No acute distress. HEENT: Head exam is unremarkable. LUNGS: No audible rhonchi or wheezes. HEART: Rate and Rhythm are regular. ABDOMEN: Nontender. EXTREMITITES: No edema. Objective - Vital Signs Vital signs: Vital Signs Temp 97.8 F 01/30/23 11:42 Pulse 60 01/30/23 11:42 Resp 19 01/30/23 11:42 BP 140/84 01/30/23 11:42 Pulse Ox 100 01/30/23 11:26 FiO2 Intake & Output 01/29/23 01/30/23 01/30/23 18:59 06:59 18:59 Intake Total 590 300 Output Total 2800 Balance 590 -2500 Intake: Oral 590 Hemodialysis 300 Output: Hemodialysis 2800 Other: Voiding Method Bedside Commode # Voids 0 # Bowel Movements 1 1 - Labs CBC & Chem 7: 01/30/23 06:09 01/30/23 06:09 Labs: Abnormal Lab Results - Last 24 Hours (Table) 01/29/23 01/30/23 01/30/23 Range/Units 06:31 06:09 06:09 WBC 11.24 H (4.50-10.00) X 10*3/uL RBC 2.15 L (4.10-5.20) X 10*6/uL Hgb 7.0 L (12.0-15.0) d/dL Hct 21.2 L (37.2-46.3) % MCV 98.6 H (80.0-97.0) FL MCH 32.6 H (27.0-32.0) pg RDW 15.7 H (11.5-14.5) % Neutrophils # 9.09 H (1.80-7.70) X 10*3/uL Sodium 134 L (135-145) mmol/L Carbon Dioxide 20.8 L (21.6-31.8) mmol/L Anion Gap 13.20 H (4.00-12.00) mmol/L BUN 30.6 H (9.0-27.0) mg/dL Creatinine 7.1 H* (0.6-1.5) mg/dL Est GFR (CKD-EPI) 7 L (>=60) BUN/Creatinine Ratio 4.31 L (12.00-20.00) Ratio Phosphorus 6.7 H (2.4-5.1) mg/dL TIBC 202 L (228-460) UG/DL Transferrin 144.0 L (204.0-354.0) mg/dL Ferritin 1557.0 H (10.0-291.0) ng/mL Total Bilirubin 0.2 L (0.3-1.2) mg/dL Total Protein 4.8 L (6.2-8.2) d/dL Albumin 2.9 L (3.8-4.9) d/dL Albumin/Globulin Ratio 1.53 L (1.60-3.17) Ratio Assessment and Plan Plan: Assessment: 1. End-stage renal disease maintained on hemodialysis on Saturday schedule. 2. Acute cholecystitis with cystic duct obstruction status post open cholecystectomy 01/28/2023. 3. Hypertension with chronic kidney disease. Controlled. 4. Anemia of chronic kidney disease maintained on Aranesp. Iron replete. 5. Chronic kidney disease mineral bone disease maintained on Renvela. Phosphorus level .7 dated 01/29/2023. 6. Metabolic acidosis secondary to chronic kidney disease. Expect improvement postdialysis. Plan: Currently see was undergoing hemodialysis. Next treatment on Saturday.
[2023-01-30] MEDS: amLODIPine 10 MG TAB PO SCH (12:17)
[2023-01-30] MEDS: FAMOTIDINE 20 MG TAB PO SCH (12:17)
[2023-01-30] MEDS: HEPARIN SODIUM,PORCINE 5,000 UNIT/ML 1 ML VIAL SQ SCH (12:17)
[2023-01-30] MEDS: FOLIC ACID-VIT B COMPLEX-VIT C 1 CAP PO SCH (12:17)
--- NOTE | 2023-01-30 15:22 | P.PN ---
Subjective Progress Note Date: 01/30/23 CHIEF COMPLAINT: Acute cholecystitis HISTORY OF PRESENT ILLNESS: Patient postop day #2 diagnostic laparoscopy converted to open cholecystectomy and extensive lysis of adhesions. Patient getting hemodialysis. She is sleeping comfortably. Mother at bedside reporting that her pain is controlled. She did eat. And she is having output through her ostomy. Afebrile. WBC 8.93 up to 11.24 Hgb down to 7.0 platelets 216 sodium is 134 potassium is 4.2 LFTs and total bilirubin normal. PHYSICAL EXAM: VITAL SIGNS: Reviewed GENERAL: Well-developed in no acute distress. HEENT: No sclera icterus. Extraocular movements grossly intact. Moist buccal mucosa. Head is atraumatic, normocephalic. Hears conversational speech. No nasal drainage. NECK: Supple without lymphadenopathy. CHEST: Non-labored respirations and equal bilateral excursions. CARDIOVASCULAR: Palpable 2+ radial pulses. ABDOMEN: Soft. Nondistended. Tender incision site. Incisional dressing clean dry and intact. Stool in ostomy.. MUSCULOSKELETAL: No clubbing or cyanosis. NEUROLOGIC: No focal or lateralizing signs. Cranial nerves II through XII grossly intact. PSYCH: Appropriate affect. Alert and oriented to person, place and time. SKIN: Well perfused. Good skin turgor. ASSESSMENT: 1. Acute cholecystitis due to gallstones, cystic duct obstruction 2. 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 Dialysis dependent 4. History of peritonitis due to perforated diverticulitis 5. History of gastric ulcers 6. Obesity due to excess calories, BMI 32.0 7. Hypertensive heart disease 8. History of sepsis due to perforated diverticulitis 9. Severe intra-abdominal adhesions/frozen abdomen PLAN: -Add IV Zosyn due to increase in white count -Continue regular diet -Repeat labs in AM -Continue pain management -DVT prophylaxis subcu heparin Physician [employer] note has been reviewed by physician. Signing provider agrees with the documented findings, assessment, and plan of care. As above. Patient seen and evaluated. Abdominal binder readjusted. No moderate ecchymosis along the abdominal wall. Patient reported appropriate tenderness right upper quadrant. Due to anemia, hemoglobin low. Transfusion started. Discontinue heparin. May need CT of abdomen and pelvis pending hemoglobin trend. Objective - Vital Signs Vital signs: Vital Signs Temp 98.8 F 01/30/23 07:40 Pulse 62 01/30/23 07:40 Resp 18 01/30/23 07:40 BP 135/76 01/30/23 07:40 Pulse Ox 97 01/30/23 07:40 FiO2 Intake & Output 01/29/23 01/30/23 01/30/23 18:59 06:59 18:59 Intake Total 590 Balance 590 Intake: Oral 590 Other: Voiding Method Bedside Commode # Voids 0 # Bowel Movements 1 1 - Labs CBC & Chem 7: 01/31/23 04:29 01/31/23 04:29 Labs: Abnormal Lab Results - Last 24 Hours (Table) 01/29/23 01/29/23 01/29/23 Range/Units 06:31 06:31 06:31 RBC 2.29 L (4.10-5.20) X 10*6/uL Hgb 7.4 L (12.0-15.0) d/dL Hct 23.1 L (37.2-46.3) % MCV 100.9 H (80.0-97.0) FL MCH 32.3 H (27.0-32.0) pg RDW 15.6 H (11.5-14.5) % Creatinine 5.1 H (0.6-1.5) mg/dL Est GFR (CKD-EPI) 10 L (>=60) BUN/Creatinine Ratio 3.75 L (12.00-20.00) Ratio Phosphorus 6.7 H (2.4-5.1) mg/dL TIBC 202 L (228-460) UG/DL Transferrin 144.0 L (204.0-354.0) mg/dL Ferritin 1557.0 H (10.0-291.0) ng/mL Total Bilirubin <0.2 L (0.3-1.2) mg/dL Total Protein 5.2 L (6.2-8.2) d/dL Albumin 3.1 L (3.8-4.9) d/dL Albumin/Globulin Ratio 1.48 L (1.60-3.17) Ratio
[2023-01-30] MEDS: PIPERACILLIN-TAZOBACTAM 3.375 GM in SODIUM CHLORIDE 0.9% 100 ML IVPB SCH (20:43)
[2023-01-30] MEDS: tiZANidine 4 MG TAB PO SCH (20:43)
[2023-01-31] MEDS: HYDROmorphone 1 MG/ML 1 ML SYRINGE IVP PRN ×5 (03:16→20:59)
[2023-01-31] MEDS: LACTATED RINGERS 1,000 ML IV SCH (04:22)
[2023-01-31] MEDS: SUCRALFATE 1 GM TAB PO SCH ×3 (07:16→16:47)
[2023-01-31] MEDS: PIPERACILLIN-TAZOBACTAM 3.375 GM in SODIUM CHLORIDE 0.9% 100 ML IVPB SCH ×2 (07:16→20:54)
[2023-01-31] MEDS: SEVELAMER 800 MG TAB PO SCH ×3 (07:16→16:46)
[2023-01-31 08:53] LABS: Basophils # (A) 0.06 X 10*3/uL (0.00-0.10); Basophils % (A) 0.5 %; Eosinophils # (A) 0.17 X 10*3/uL (0.04-0.35); Eosinophils % (A) 1.5 %; HGB 7.7 d/dL (12.0-15.0); Lymphocytes % (A) 9.5 %; MCH 31.8 pg (27.0-32.0); MCHC 33.5 d/dL (32.0-37.0); Mean Platelet Volume 9.8 FL (9.5-12.2); Monocytes # (A) 0.79 X 10*3/uL (0.20-1.00); Monocytes % (A) 6.8 %; NRBC Per 100 WBC 0 X 10*3/uL (0.00-0.01); Neutrophils # (A) 9.38 X 10*3/uL (1.80-7.70); Neutrophils % (A) 81.2 %; Platelet Count 221 X 10*3/uL (140-440); RBC 2.42 X 10*6/uL (4.10-5.20); WBC 11.56 X 10*3/uL (4.50-10.00)
[2023-01-31 09:36] LABS: ALT 10 U/L (8-44); AST 19 U/L (13-35); Albumin 2.9 d/dL (3.8-4.9); Albumin/Globulin Ratio 1.38 Ratio (1.60-3.17); Alkaline Phosphatase 67 U/L (41-126); BUN/Creat Ratio 3.56 Ratio (12.00-20.00); Blood Urea Nitrogen 19.6 mg/dL (9.0-27.0); Calcium 9.1 mg/dL (8.7-10.3); Carbon Dioxide 24.1 mmol/L (21.6-31.8); Chloride 96 mmol/L (96-109); Globulin 2.1 d/dL (1.6-3.3); Glucose 114 mg/dL (70-110); Potassium 3.9 mmol/L (3.5-5.5); Sodium 135 mmol/L (135-145); Total Bilirubin 0.4 mg/dL (0.3-1.2)
[2023-01-31] MEDS: FOLIC ACID-VIT B COMPLEX-VIT C 1 CAP PO SCH (10:45)
[2023-01-31] MEDS: FAMOTIDINE 20 MG TAB PO SCH (10:45)
[2023-01-31] MEDS: hydrALAZINE HCL 50 MG TAB PO SCH ×3 (10:45→21:00)
[2023-01-31] MEDS: cloNIDine HCL 0.2 MG TAB PO SCH ×3 (10:45→21:00)
[2023-01-31] MEDS: amLODIPine 10 MG TAB PO SCH (10:45)
[2023-01-31] MEDS: METOPROLOL TARTRATE 50 MG TAB PO SCH ×2 (10:46→20:54)
[2023-01-31] MEDS: SIMETHICONE 80 MG CHEWABLE PO SCH ×3 (10:46→21:17)
[2023-01-31] MEDS: lisinopriL 20 MG TAB PO SCH ×2 (10:46→20:54)
--- NOTE | 2023-01-31 11:59 | P.PN ---
Subjective Patient is seen in follow-up for end-stage renal disease. She is maintained on hemodialysis on Saturday schedule. No problems with dialysis yesterday. Received a unit of blood last night. Hemodynamically stable. Has been eating. Resting in bed. Family present at bedside. Vital signs are stable. General: No acute distress. HEENT: Head exam is unremarkable. LUNGS: No audible rhonchi or wheezes. HEART: Rate and Rhythm are regular. ABDOMEN: Nontender. EXTREMITITES: No edema. Objective - Vital Signs Vital signs: Vital Signs Temp 98.4 F 01/31/23 09:13 Pulse 72 01/31/23 10:44 Resp 12 01/31/23 09:13 BP 141/81 01/31/23 09:13 Pulse Ox 98 01/31/23 09:13 FiO2 Intake & Output 01/30/23 01/31/23 01/31/23 18:59 06:59 18:59 Intake Total 300 1120 Output Total 2800 Balance -2500 1120 Intake: Intake, IV Titration 100 Amount Piperacillin-Tazobactam 3 100 .375 gm In Sodium Chloride 0.9% 100 ml @ 25 mls/hr IVPB Q12HR [facility] Rx #:[id number] Oral 400 Blood Product 620 Rc As-1 Unit 310 [id number] Hemodialysis 300 Output: Hemodialysis 2800 Other: Voiding Method Bedside Commode # Voids 0 - Labs CBC & Chem 7: 01/31/23 04:29 01/31/23 04:29 Labs: Abnormal Lab Results - Last 24 Hours (Table) 01/30/23 01/31/23 01/31/23 Range/Units 19:32 04:29 04:29 WBC 11.56 H (4.50-10.00) X 10*3/uL RBC 2.42 L (4.10-5.20) X 10*6/uL Hgb 7.7 L (12.0-15.0) d/dL Hct 23.0 L (37.2-46.3) % RDW 17.0 H (11.5-14.5) % Neutrophils # 9.38 H (1.80-7.70) X 10*3/uL Anion Gap 14.90 H (4.00-12.00) mmol/L Creatinine 5.5 H (0.6-1.5) mg/dL Est GFR (CKD-EPI) 9 L (>=60) BUN/Creatinine Ratio 3.56 L (12.00-20.00) Ratio Glucose 114 H (70-110) mg/dL Total Protein 5.0 L (6.2-8.2) d/dL Albumin 2.9 L (3.8-4.9) d/dL Albumin/Globulin Ratio 1.38 L (1.60-3.17) Ratio Crossmatch See Detail Assessment and Plan Plan: Assessment: 1. End-stage renal disease maintained on hemodialysis on Saturday schedule. 2. Acute cholecystitis with cystic duct obstruction status post open cholecystectomy 01/28/2023. 3. Hypertension with chronic kidney disease. Stable. 4. Anemia of chronic kidney disease maintained on Aranesp. Iron replete. 5. Chronic kidney disease mineral bone disease maintained on Renvela. Phosphorus level 6.7 dated 01/29/2023. 6. Metabolic acidosis secondary to chronic kidney disease. Improved postdialysis. Plan: Hemodialysis tomorrow.
--- NOTE | 2023-01-31 13:57 | P.PN ---
Subjective Progress Note Date: 01/31/23 CHIEF COMPLAINT: Acute cholecystitis HISTORY OF PRESENT ILLNESS: Patient postop day #3 diagnostic laparoscopy converted to open cholecystectomy and extensive lysis of adhesions. Patient reports her pain is controlled. She is tolerating diet. She did get 1 unit of blood. Hemoglobin has come up from 7-7.7. WBC remains elevated at 11.56 total bilirubin 0.4 AST 19 ALT 10 alk phos 67 PHYSICAL EXAM: VITAL SIGNS: Reviewed GENERAL: Well-developed in no acute distress. HEENT: No sclera icterus. Extraocular movements grossly intact. Moist buccal mucosa. Head is atraumatic, normocephalic. Hears conversational speech. No nasal drainage. NECK: Supple without lymphadenopathy. CHEST: Non-labored respirations and equal bilateral excursions. CARDIOVASCULAR: Palpable 2+ radial pulses. ABDOMEN: Soft. Nondistended. Tender incision site. Incisional dressing clean dry and intact. Stool in ostomy.. MUSCULOSKELETAL: No clubbing or cyanosis. NEUROLOGIC: No focal or lateralizing signs. Cranial nerves II through XII grossly intact. PSYCH: Appropriate affect. Alert and oriented to person, place and time. SKIN: Well perfused. Good skin turgor. ASSESSMENT: 1. Acute cholecystitis due to gallstones, cystic duct obstruction 2. 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 Dialysis dependent 4. History of peritonitis due to perforated diverticulitis 5. History of gastric ulcers 6. Obesity due to excess calories, BMI 32.0 7. Hypertensive heart disease 8. History of sepsis due to perforated diverticulitis 9. 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 Signing provider agrees with the documented findings, assessment, and plan of care. As above. Patient seen and evaluated. She reports improvement of her abdominal pain. Mother at bedside. Hemoglobin of 7.0-7.7 after her blood. Wound care instructions reviewed. Overall, disposition 24 hours pending stability of hemoglobin and tolerating hemodialysis. Objective - Vital Signs Vital signs: Vital Signs Temp 98.4 F 01/31/23 09:13 Pulse 72 01/31/23 10:44 Resp 12 01/31/23 09:13 BP 141/81 01/31/23 09:13 Pulse Ox 98 01/31/23 09:13 FiO2 Intake & Output 01/30/23 01/31/23 01/31/23 18:59 06:59 18:59 Intake Total 300 1120 Output Total 2800 Balance -2500 1120 Intake: Intake, IV Titration 100 Amount Piperacillin-Tazobactam 3 100 .375 gm In Sodium Chloride 0.9% 100 ml @ 25 mls/hr IVPB Q12HR [facility] Rx #:[id number] Oral 400 Blood Product 620 Rc As-1 Unit 310 [id number] Hemodialysis 300 Output: Hemodialysis 2800 Other: Voiding Method Bedside Commode # Voids 0 - Labs CBC & Chem 7: 01/31/23 04:29 01/31/23 04:29 Labs: Abnormal Lab Results - Last 24 Hours (Table) 01/30/23 01/30/23 01/31/23 Range/Units 06:09 19:32 04:29 WBC 11.56 H (4.50-10.00) X 10*3/uL RBC 2.42 L (4.10-5.20) X 10*6/uL Hgb 7.7 L (12.0-15.0) d/dL Hct 23.0 L (37.2-46.3) % RDW 17.0 H (11.5-14.5) % Neutrophils # 9.38 H (1.80-7.70) X 10*3/uL Sodium 134 L (135-145) mmol/L Carbon Dioxide 20.8 L (21.6-31.8) mmol/L Anion Gap 13.20 H (4.00-12.00) mmol/L BUN 30.6 H (9.0-27.0) mg/dL Creatinine 7.1 H* (0.6-1.5) mg/dL Est GFR (CKD-EPI) 7 L (>=60) BUN/Creatinine Ratio 4.31 L (12.00-20.00) Ratio Glucose (70-110) mg/dL Total Bilirubin 0.2 L (0.3-1.2) mg/dL Total Protein 4.8 L (6.2-8.2) d/dL Albumin 2.9 L (3.8-4.9) d/dL Albumin/Globulin Ratio 1.53 L (1.60-3.17) Ratio Crossmatch See Detail 01/31/23 Range/Units 04:29 WBC (4.50-10.00) X 10*3/uL RBC (4.10-5.20) X 10*6/uL Hgb (12.0-15.0) d/dL Hct (37.2-46.3) % RDW (11.5-14.5) % Neutrophils # (1.80-7.70) X 10*3/uL Sodium (135-145) mmol/L Carbon Dioxide (21.6-31.8) mmol/L Anion Gap 14.90 H (4.00-12.00) mmol/L BUN (9.0-27.0) mg/dL Creatinine 5.5 H (0.6-1.5) mg/dL Est GFR (CKD-EPI) 9 L (>=60) BUN/Creatinine Ratio 3.56 L (12.00-20.00) Ratio Glucose 114 H (70-110) mg/dL Total Bilirubin (0.3-1.2) mg/dL Total Protein 5.0 L (6.2-8.2) d/dL Albumin 2.9 L (3.8-4.9) d/dL Albumin/Globulin Ratio 1.38 L (1.60-3.17) Ratio Crossmatch
[2023-01-31] MEDS: tiZANidine 4 MG TAB PO SCH (20:54)
[2023-02-01] MEDS: LACTATED RINGERS 1,000 ML IV SCH (02:22)
[2023-02-01] MEDS: HYDROmorphone 1 MG/ML 1 ML SYRINGE IVP PRN ×2 (03:26→16:34)
[2023-02-01] MEDS: SEVELAMER 800 MG TAB PO SCH ×3 (08:39→17:27)
[2023-02-01] MEDS: lisinopriL 20 MG TAB PO SCH (08:40)
[2023-02-01] MEDS: METOPROLOL TARTRATE 50 MG TAB PO SCH (08:40)
[2023-02-01] MEDS: hydrALAZINE HCL 50 MG TAB PO SCH ×2 (08:40→17:26)
[2023-02-01] MEDS: SUCRALFATE 1 GM TAB PO SCH ×3 (08:40→17:27)
[2023-02-01] MEDS: cloNIDine HCL 0.2 MG TAB PO SCH ×2 (08:41→17:25)
[2023-02-01] MEDS: SIMETHICONE 80 MG CHEWABLE PO SCH ×2 (08:41→17:28)
[2023-02-01 08:51] LABS: Basophils # (A) 0.07 X 10*3/uL (0.00-0.10); Basophils % (A) 0.7 %; Eosinophils # (A) 0.27 X 10*3/uL (0.04-0.35); Eosinophils % (A) 2.5 %; HCT 23.7 % (37.2-46.3); HGB 7.9 d/dL (12.0-15.0); Lymphocytes # (A) 1.02 X 10*3/uL (0.90-5.00); Lymphocytes % (A) 9.6 %; MCH 31.9 pg (27.0-32.0); MCHC 33.3 d/dL (32.0-37.0); MCV 95.6 FL (80.0-97.0); Mean Platelet Volume 9.9 FL (9.5-12.2); Monocytes # (A) 0.62 X 10*3/uL (0.20-1.00); Monocytes % (A) 5.9 %; NRBC Per 100 WBC 0 X 10*3/uL (0.00-0.01); Neutrophils # (A) 8.55 X 10*3/uL (1.80-7.70); Neutrophils % (A) 80.7 %; Platelet Count 233 X 10*3/uL (140-440); RBC 2.48 X 10*6/uL (4.10-5.20); RDW 17.1 % (11.5-14.5); WBC 10.59 X 10*3/uL (4.50-10.00)
[2023-02-01 09:18] LABS: BUN/Creat Ratio 4.83 Ratio (12.00-20.00); Blood Urea Nitrogen 34.8 mg/dL (9.0-27.0); Calcium 9.2 mg/dL (8.7-10.3); Carbon Dioxide 24.1 mmol/L (21.6-31.8); Chloride 97 mmol/L (96-109); Glucose 104 mg/dL (70-110); Potassium 4.1 mmol/L (3.5-5.5); Sodium 134 mmol/L (135-145)
--- NOTE | 2023-02-01 11:51 | P.PN ---
Subjective Patient is seen in follow-up for end-stage renal disease. She is maintained on hemodialysis on Saturday schedule. Scheduled for dialysis today. Hemodynamically stable. Has been eating. Resting in bed. Family present at bedside. Vital signs are stable. General: No acute distress. HEENT: Head exam is unremarkable. LUNGS: No audible rhonchi or wheezes. HEART: Rate and Rhythm are regular. ABDOMEN: Nontender. EXTREMITITES: No edema. Objective - Vital Signs Vital signs: Vital Signs Temp 98.1 F 02/01/23 11:48 Pulse 64 02/01/23 11:48 Resp 16 02/01/23 11:48 BP 146/78 02/01/23 11:48 Pulse Ox 98 02/01/23 11:48 FiO2 Intake & Output 01/31/23 02/01/23 02/01/23 18:59 06:59 18:59 Intake Total 700 Balance 700 Intake: Intake, IV Titration 100 Amount Piperacillin-Tazobactam 3 100 .375 gm In Sodium Chloride 0.9% 100 ml @ 25 mls/hr IVPB Q12HR [facility] Rx #:[id number] Oral 600 Other: Voiding Method Bedside Commode Bedside Commode # Voids 0 # Bowel Movements 1 - Labs CBC & Chem 7: 02/01/23 04:30 02/01/23 04:30 Labs: Abnormal Lab Results - Last 24 Hours (Table) 02/01/23 02/01/23 Range/Units 04:30 04:30 WBC 10.59 H (4.50-10.00) X 10*3/uL RBC 2.48 L (4.10-5.20) X 10*6/uL Hgb 7.9 L (12.0-15.0) d/dL Hct 23.7 L (37.2-46.3) % RDW 17.1 H (11.5-14.5) % Neutrophils # 8.55 H (1.80-7.70) X 10*3/uL Sodium 134 L (135-145) mmol/L Anion Gap 12.90 H (4.00-12.00) mmol/L BUN 34.8 H (9.0-27.0) mg/dL Creatinine 7.2 H* (0.6-1.5) mg/dL Est GFR (CKD-EPI) 7 L (>=60) BUN/Creatinine Ratio 4.83 L (12.00-20.00) Ratio Assessment and Plan Plan: Assessment: 1. End-stage renal disease maintained on hemodialysis on Saturday schedule. 2. Acute cholecystitis with cystic duct obstruction status post open cholecystectomy 01/28/2023. 3. Hypertension with chronic kidney disease. Stable. 4. Anemia of chronic kidney disease maintained on Aranesp. Iron replete. 5. Chronic kidney disease mineral bone disease maintained on Renvela. Phosph orus level 6.7 dated 01/29/2023. 6. Metabolic acidosis secondary to chronic kidney disease. Improved postdialysis. Plan: Hemodialysis today.
--- NOTE | 2023-02-01 13:42 | P.DS ---
Providers Date of admission: 01/28/23 12:50 Expected date of discharge: 02/01/23 Attending physician: Joanna Blackburn Consults: 01/28/23 12:51 Consult Physician Stat Consulting Provider: Analisa Cruz Consult Reason/Comments: Dialysis management Do you want consulting provider notified?: Yes Primary care physician: Alia Keita Hospital Course: Discharge diagnosis 1. Acute cholecystitis due to gallstones, cystic duct obstruction 2. 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 Dialysis dependent 4. History of peritonitis due to perforated diverticulitis 5. History of gastric ulcers 6. Obesity due to excess calories, BMI 32.0 7. Hypertensive heart disease 8. History of sepsis due to perforated diverticulitis 9. Severe intra-abdominal adhesions/frozen abdomen Hospital course This is a 42-year-old female who presents with recent history of sepsis due to perforated diverticulitis with peritonitis. After diverting ostomy, patient developed acute cholecystitis features large gallstone. Cholecystostomy tube was placed. Antibiotic management including pain management was prescribed to manage her cholecystitis. Patient is status post diagnostic laparoscopy converted to open cholecystectomy. Open extensive lysis of adhesions with removal of cholecystostomy tube. Patient tolerated surgery well. Her pain is controlled. She is tolerating diet. She's having stool and flatus ostomy. She is afebrile. Her white count is trending downwards. She has been up and ambulating. She is stable for discharge today after hemodialysis. 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 Signing provider agrees with the documented findings, assessment, and plan of care. Patient Condition at Discharge: Stable Plan - Discharge Summary Discharge Rx Participant: No New Discharge Prescriptions: Continue Metoprolol Tartrate [Lopressor] 50 mg PO BID lisinopriL [Zestril] 20 mg PO BID Ondansetron [Zofran] 4 mg PO Q8HR PRN #20 tab PRN Reason: Nausea And Vomiting Acetaminophen Tab [Tylenol] 650 mg PO Q6HR PRN tab PRN Reason: Mild Pain Or Fever > 100.5 Velphoro 500mg Chewable Tab 1,000 mg PO TID-W/MEALS Simethicone Chew [Mylicon Chew] 160 mg PO TID #40 tab Famotidine [Pepcid] 20 mg PO DAILY #30 tablet tiZANidine HCL [Zanaflex] 4 mg PO HS hydrALAZINE HCL [Apresoline] 100 mg PO TID 30 Days #180 tab Sucralfate [Carafate] 1 gm PO AC-TID 30 Days #90 tab cloNIDine HCL [Catapres] 0.1 mg PO TID #90 tab amLODIPine [Norvasc] 10 mg PO DAILY #30 tab Darbepoetin Shahram [Aranesp] 100 mcg SQ DIRECTED Folic Acid-Vit B Complex-Vit C [Nephrocaps] 1 cap PO DAILY Sevelamer [Renvela] 800 mg PO DIRECTED No Action metroNIDAZOLE [Flagyl] 500 mg PO TID #42 tab Discharge Medication List Metoprolol Tartrate [Lopressor] 50 mg PO BID 11/11/21 [History] Velphoro 500mg Chewable Tab 1,000 mg PO TID-W/MEALS 11/02/22 [History] lisinopriL [Zestril] 20 mg PO BID 11/02/22 [History] Famotidine [Pepcid] 20 mg PO DAILY #30 tablet 11/23/22 [Rx] Ondansetron [Zofran] 4 mg PO Q8HR PRN #20 tab 11/23/22 [Rx] Simethicone Chew [Mylicon Chew] 160 mg PO TID #40 tab 11/23/22 [Rx] tiZANidine HCL [Zanaflex] 4 mg PO HS 11/30/22 [History] Acetaminophen Tab [Tylenol] 650 mg PO Q6HR PRN tab 12/07/22 [Rx] Sucralfate [Carafate] 1 gm PO AC-TID 30 Days #90 tab 12/07/22 [Rx] amLODIPine [Norvasc] 10 mg PO DAILY #30 tab 12/07/22 [Rx] cloNIDine HCL [Catapres] 0.1 mg PO TID #90 tab 12/07/22 [Rx] hydrALAZINE HCL [Apresoline] 100 mg PO TID 30 Days #180 tab 12/07/22 [Rx] Darbepoetin Shahram [Aranesp] 100 mcg SQ DIRECTED 12/12/22 [History] Folic Acid-Vit B Complex-Vit C [Nephrocaps] 1 cap PO DAILY 12/12/22 [History] metroNIDAZOLE [Flagyl] 500 mg PO TID #42 tab 12/21/22 [Rx] Sevelamer [Renvela] 800 mg PO DIRECTED 01/25/23 [History] Follow up Appointment(s)/Referral(s): Joanna Blackburn MD [STAFF PHYSICIAN] - 02/05/23 Activity/Diet/Wound Care/Special Instructions: nurse * please fax pt d/c anny to [facility] office - Wear abdominal binder at all times for comfort. No lifting over 4 pounds in 4 weeks You May shower. No bath tub soaks for two weeks Use Tylenol scheduled for the next 24-48 hours for best pain relief. Use ice along incisions for the today to prevent swelling. Discharge Disposition: HOME SELF-CARE
[2023-02-01] MEDS: PIPERACILLIN-TAZOBACTAM 3.375 GM in SODIUM CHLORIDE 0.9% 100 ML IVPB SCH ×2 (15:40→16:39)
[2023-02-01] MEDS: FAMOTIDINE 20 MG TAB PO SCH (17:24)
[2023-02-01] MEDS: amLODIPine 10 MG TAB PO SCH (17:24)
[2023-02-01 19:43] VITALS: BP 108/64; PULSE 74; RESP 18; TEMP 98.6
== END 2023-02-01 20:07 | disposition home or self-care (01) | DRG 263 ==
LOC: OR 08:14 → 5NMEDONC 12:32 → OR 12:50 → 5NMEDONC 12:50
PROVIDERS: ADMIT Surgery Plastic and Reconstructive Surgery; ATTEND Surgery Plastic and Reconstructive Surgery
PROC: 0FJ44ZZ Inspection of Gallbladder, Percutaneous Endoscopic Approach (ICD-10-PCS; 2023-01-28)
PROC: 8E0W0CZ Robotic Assisted Procedure of Trunk Region, Open Approach (ICD-10-PCS; 2023-01-28)
PROC: 0DNW0ZZ Release Peritoneum, Open Approach (ICD-10-PCS; 2023-01-28)
PROC: 0WJG4ZZ Inspection of Peritoneal Cavity, Percutaneous Endoscopic Approach (ICD-10-PCS; 2023-01-28)
PROC: 0FT40ZZ Resection of Gallbladder, Open Approach (ICD-10-PCS; principal; 2023-01-28 09:15)
PROC: 5A1D70Z Performance of Urinary Filtration, Intermittent, Less than 6 Hours Per Day (ICD-10-PCS; 2023-01-30)
PROC: 30233N1 Transfusion of Nonautologous Red Blood Cells into Peripheral Vein, Percutaneous Approach (ICD-10-PCS; 2023-01-31)
DX: K80.13 Calculus of gallbladder with acute and chronic cholecystitis with obstruction (principal); K65.9 Peritonitis, unspecified; I13.11 Hypertensive heart and chronic kidney disease without heart failure, with stage 5 chronic kidney disease, or end stage renal disease; N18.6 End stage renal disease; E87.20 Acidosis, unspecified; D63.1 Anemia in chronic kidney disease; K57.80 Diverticulitis of intestine, part unspecified, with perforation and abscess without bleeding; E66.09 Other obesity due to excess calories; K66.0 Peritoneal adhesions (postprocedural) (postinfection); M89.8X9 Other specified disorders of bone, unspecified site; Z53.31 Laparoscopic surgical procedure converted to open procedure; Z99.2 Dependence on renal dialysis; Z93.3 Colostomy status; Z68.32 Body mass index [BMI] 32.0-32.9, adult; Z87.11 Personal history of peptic ulcer disease; Z87.891 Personal history of nicotine dependence; Z79.899 Other long term (current) drug therapy; Z88.7 Allergy status to serum and vaccine; Z91.048 Other nonmedicinal substance allergy status; Z88.1 Allergy status to other antibiotic agents; Z86.69 Personal history of other diseases of the nervous system and sense organs
CPT/HCPCS: 80048; 80053; 81025; 82728; 83540; 83550; 84100; 84703; 85025; 86850; 86900; 86901; 86920; 88304; 90935

== ENCOUNTER → 2023-05-03 | Day surgery (SDC) | payer OTHER ==
[~2023-05-03] MED LIST changes: -ACETAMINOPHEN TAB 500 MG TAB PO PRN; +DEXAMETHASONE SOD PHOSPHATE 4 MG/ML 1 ML VIAL ONE; +GELATIN SPONGE,ABSORB (LARGE) 1 EACH SPONGE TOPICAL ONE; +HEPARIN SODIUM,PORCINE (1 ML) 2,000 UNIT in SODIUM CHLORIDE 0.9% 500 ML 500 ML IRRIGATION ONE; +HEPARIN SODIUM,PORCINE 5,000 UNIT/ML 1 ML VIAL ONE; -HEPARIN SODIUM,PORCINE/PF 5,000 UNIT/0.5 ML SYRINGE SQ PRN; +HYDROmorphone 0.5 MG/0.5 ML SYRINGE IVP PRN; -INDOCYANINE GREEN 25 MG VIAL IV STA; +LACTATED RINGERS 1,000 ML IV SCH; +LIDOCAINE 1% INJ 10MG/ML (20 ML MDV) SQ ONE; +MIDAZOLAM 2 MG/2 ML VIAL IV PRN; +MIDAZOLAM 2 MG/2 ML VIAL ONE; +ONDANSETRON 4 MG/2 ML VIAL IVP ONE; -ONDANSETRON 4 MG/2 ML VIAL IVP PRN; +PROPOFOL 10 MG/ML 20 ML VIAL IV ONE; +ROPIVACAINE 5 MG/ML 30 ML VIAL ONE; -SCOPOLAMINE 1 MG/72 HR PATCH TRANSDERM ONE; +SODIUM CHLORIDE 0.9% (PF) 10 ML VIAL ONE; +SODIUM CHLORIDE 0.9% 500 ML 500 ML IV ONE; +THROMBIN (BOVINE) 5,000 UNIT VIAL TOPICAL ONE; +ceFAZolin 2 GM in SODIUM CHLORIDE 0.9% 500 ML 500 ML IRRIGATION ONE; -droPERidol 5 MG/2 ML VIAL IVP ONE; +fentaNYL (PF) 50 MCG/1 ML VIAL IVP ONE; +fentaNYL (PF) 50 MCG/ML 2 ML AMP ONE
--- NOTE | 2023-05-03 11:11 | P.ANPRN ---
Procedure Note - Anesthesia - Nerve Block Performed Left Supraclavicular Single Time Out Performed: Yes Date of Procedure: 05/03/23 Procedure Start Time: : Procedure Stop Time: :08 Location of Patient: PreOp Indication: Acute Post-Operative Pain, Requested by Surgeon Sedation Type: Sedate with meaningful contact maintained Preparation: Sterile Prep Position: Supine Needle Types: Pajunk Needle Gauge: 21 Ultrasound used to visualize needle placement: Yes Ultrasound used to observe medication spread: Yes Injectate: 0.5% Ropivacaine (see comment for volume) (20 ml + 10 ml NS + 4 mg Dexamethasone) Blood Aspirated: No Pain Paresthesia on Injection Noted: No Resistance on Injection: Normal Image Stored and Saved: Yes Events: Uneventful and Well Tolerated
[2023-05-03 12:17] LABS: Anisocytosis Slight; HCT 27.7 % (34.0-46.0); HGB 9.1 gm/dL (11.4-16.0); Hypochromasia Moderate; MCH 30.2 pg (25.0-35.0); MCHC 32.7 g/dL (31.0-37.0); MCV 92.2 fL (80.0-100.0); Mean Platelet Volume 9.6; Poikilocytosis Slight; RBC 3.01 m/uL (3.80-5.40); RDW 17.4 % (11.5-15.5); WBC 10.2 k/uL (3.8-10.6)
[2023-05-03 13:02] LABS: Lymphocytes # (M) 0.92 k/uL (1.0-4.8); Monocytes # (M) 0.51 k/uL (0-1.0); Neutrophils # (M) 8.47 k/uL (1.3-7.7); Neutrophils % (M) 83 %; Nucleated Red Blood Cells 0 /100 WBC (0-0); Total Cells Counted 100
[2023-05-03 13:05] LABS: Platelet Count 282 k/uL (150-450)
--- NOTE | 2023-05-03 15:26 | P.OP ---
Date of Procedure: 05/03/23 Preoperative Diagnosis: End-stage renal disease Postoperative Diagnosis: Same Procedure(s) Performed: Left upper extremity loop arteriovenous graft creation Anesthesia: regional Surgeon: Vazquez Rodriguez Estimated Blood Loss (ml): 10 Pathology: none sent Condition: stable Disposition: PACU Indications for Procedure: 42-year-old female with history of end-stage renal disease presents to the hospital for elective left upper extremity loop arteriovenous graft creation. She had ultrasounds of the upper extremities which demonstrated poor cephalic and basilic vein at the wrist and therefore would benefit from a loop AV graft which was discussed with the patient in full detail along with risks and benefits. She ultimately chose to have the loop graft performed. Description of Procedure: After written informed consent was obtained the patient all risks benefits and competitions were described patient is brought to the operative suite and laid in a supine position with the left arm outstretched on an armboard. The area of the arm was then prepped and draped in usual sterile fashion after appropriate anesthetic was performed per the anesthesiologist. A timeout was performed in normal fashion antibiotics were administered prior to incision. A transverse incision was then created just distal to the elbow and dissection was carried down to the antecubital vein and this was dissected free in a circumferential manner. Proximal and distal control was obtained with vessel loops. Attention was then placed to the artery and the brachial artery was then dissected free in a circumferential manner and controlled with vessel loops for the proximal and distal aspect. A tunnel was then created in a loop fashion with a counterincision made in the forearm and a 4-7 mm Ida propatent graft was tunneled in a loop fashion. Patient was then administered heparin. Arterial anastomosis was then performed after arteriotomy was created in the brachial artery and extended with Pott Otoole scissors. We 4 mm aspect of the graft was then spatulated in normal fashion and anastomosis was created with 6-0 Prolene suture in a running fashion. Control was then released into the graft revealing good pulsatile blood flow. Distal control of the artery was then released. Assessment of the radial artery demonstrated good pulse. The anastomosis was then performed. Venotomy was created with 11 blade scalpel and extended with Pott Otoole scissors. A 7 mm aspect of the graft was then spatulated in normal fashion and anastomosis was created with 6-0 Prolene suture in a running fashion. Prior to last sutures being placed control was released revealing good backbleeding from the vein. The graft was flushed with heparin saline. Control was then released revealing good pulsatile blood flow within the vein with a good palpable thrill noted. Hemostasis was then assured with Gelfoam and thrombin. Incisions were then closed in a multilayer fashion. Skin was cleansed and dressings were placed. The patient tolerated the procedure well and was sent to PACU for recovery. Plan - Discharge Summary Discharge Rx Participant: No New Discharge Prescriptions: No Action RX: Metoprolol Tartrate [Lopressor] 50 mg PO BID RX: lisinopriL [Zestril] 20 mg PO BID RX: Ondansetron [Zofran] 4 mg PO Q8HR PRN #20 tab PRN Reason: Nausea And Vomiting RX: Acetaminophen Tab [Tylenol] 650 mg PO Q6HR PRN tab PRN Reason: Mild Pain Or Fever > 100.5 Mircera(Unk) 1 dose SQ Q15D Velphoro 500mg Chewable Tab 1,000 mg PO TID-W/MEALS RX: Famotidine [Pepcid] 20 mg PO DAILY #30 tablet RX: tiZANidine HCL [Zanaflex] 4 mg PO HS RX: hydrALAZINE HCL [Apresoline] 100 mg PO TID 30 Days #180 tab RX: Sucralfate [Carafate] 1 gm PO AC-TID 30 Days #90 tab RX: cloNIDine HCL [Catapres] 0.1 mg PO TID #90 tab RX: amLODIPine [Norvasc] 10 mg PO DAILY #30 tab RX: Folic Acid-Vit B Complex-Vit C [Nephrocaps] 1 cap PO DAILY Discharge Medication List RX: Metoprolol Tartrate [Lopressor] 50 mg PO BID 11/11/21 [History] RX: lisinopriL [Zestril] 20 mg PO BID 11/02/22 [History] Velphoro 500mg Chewable Tab 1,000 mg PO TID-W/MEALS 11/02/22 [History] RX: Famotidine [Pepcid] 20 mg PO DAILY #30 tablet 11/23/22 [Rx] RX: Ondansetron [Zofran] 4 mg PO Q8HR PRN #20 tab 11/23/22 [Rx] RX: tiZANidine HCL [Zanaflex] 4 mg PO HS 11/30/22 [History] RX: Acetaminophen Tab [Tylenol] 650 mg PO Q6HR PRN tab 12/07/22 [Rx] RX: Sucralfate [Carafate] 1 gm PO AC-TID 30 Days #90 tab 12/07/22 [Rx] RX: amLODIPine [Norvasc] 10 mg PO DAILY #30 tab 12/07/22 [Rx] RX: cloNIDine HCL [Catapres] 0.1 mg PO TID #90 tab 12/07/22 [Rx] RX: hydrALAZINE HCL [Apresoline] 100 mg PO TID 30 Days #180 tab 12/07/22 [Rx] RX: Folic Acid-Vit B Complex-Vit C [Nephrocaps] 1 cap PO DAILY 12/12/22 [History] Mircera(Unk) 1 dose SQ Q15D 04/29/23 [History]
[2023-05-03 15:36] VITALS: TEMP 97.2
[2023-05-03 16:04] VITALS: BP 120/78; PULSE 77
[2023-05-03 16:05] VITALS: RESP 16
== END ==
LOC: OR 09:05
PROVIDERS: ATTEND Surgery
DX: N18.6 End stage renal disease (principal); G89.18 Other acute postprocedural pain; H93.19 Tinnitus, unspecified ear; D64.9 Anemia, unspecified; K57.92 Diverticulitis of intestine, part unspecified, without perforation or abscess without bleeding; G40.909 Epilepsy, unspecified, not intractable, without status epilepticus; F41.9 Anxiety disorder, unspecified; I10 Essential (primary) hypertension; F10.90 Alcohol use, unspecified, uncomplicated; F12.90 Cannabis use, unspecified, uncomplicated; K52.9 Noninfective gastroenteritis and colitis, unspecified; Z87.442 Personal history of urinary calculi; Z87.891 Personal history of nicotine dependence; Z88.1 Allergy status to other antibiotic agents; Z88.8 Allergy status to other drugs, medicaments and biological substances; Z98.890 Other specified postprocedural states
CPT/HCPCS: 81025; 64415; 84132; 85025; 84703; 36830; L8670; J2250; J1644; J1100; J0690; J2405; J3010 ×2; J2795; J2704

== ENCOUNTER 2023-05-16 06:41 | Inpatient (IN) | payer OTHER ==
--- NOTE | 2023-05-16 06:07 | P.GSHP ---
History of Present Illness H&P Date: 05/16/23 CHIEF COMPLAINT: Perforated diverticulitis with sepsis HISTORY OF PRESENT ILLNESS: The patient is a 42-year-old female who 6 months ago had perforated diverticulitis with sepsis and prior peritoneal dialysis catheter. Dialysis catheter was removed due to spontaneous bacterial peritonitis. She has personal history of GI bleed due to gastric ulcers. She then developed perforated diverticulitis and underwent Brandon's procedure including descending colostomy creation. Since then, she had acute cholecystitis. She is dialysis dependent. She has not had prior colonoscopy screening. She presents for colonoscopy evaluation and colostomy reversal. PAST MEDICAL HISTORY: Please see list. PAST SURGICAL HISTORY: Please see list. MEDICATIONS: Please see list. ALLERGIES: Please see list. SOCIAL HISTORY: No illicit drug use FAMILY HISTORY: No reports of Crohn disease or ulcerative colitis. REVIEW OF ORGAN SYSTEMS: CONSTITUTIONAL: Denies any fever or chills. HEENT: Denies any trouble with vision or nosebleeds. No difficulty swallowing. LYMPHATIC: The patient denies any lumps and bumps around the neck. ENDOCRINE: Denies any thyroid disorders. RESPIRATORY: Denies pneumonia. Denies any troubles with breathing or dyspnea on exertion. CARDIOVASCULAR: Denies any chest pain, palpitations, or recent heart attacks GASTROINTESTINAL: Has gastroesophageal reflux disease and gastric ulcers and GI bleed. GENITOURINARY: Anuric, dialysis dependent. MUSCULOSKELETAL: Has back pain, stiffness, joint arthritis. NEUROLOGIC: Denies any numbness or tingling along the distal extremities. No seizure disorders or headaches. PSYCHIATRIC: Denies depression or suidical ideation. HEMATOLOGIC: Denies any abnormal bleeding or bruising. PHYSICAL EXAM: VITAL SIGNS: Stable GENERAL: Well-developed pleasant in no acute distress. HEENT: No scleral icterus. Extraocular movements grossly intact. Moist buccal mucosa. NECK: Supple without lymphadenopathy. CHEST: Unlabored respirations. Equal bilateral excursions. CARDIOVASCULAR: Regular rate and rhythm. Distal 2+ pulses. ABDOMEN: Colostomy present. No peritonitis. MUSCULOSKELETAL: No clubbing, cyanosis, or edema. NERUO: Cranial nerves II through XII grossly intact PSYCH: Alert and oriented to person place and time. ASSESSMENT: 1. Perforated diverticulitis with sepsis status post Brandon's procedure 2. Colostomy status 3. End-stage renal disease, dialysis dependent 4. History of GI bleed due to gastric ulcers PLAN: 1. Benefits and risks of surgical intervention for open colostomy reversal described due to prior peritonitis 2. Recommend colonoscopy prior to colostomy reversal for assessment of neoplastic process 3. DVT prophylaxis. 4. Antibiotic prophylaxis. 5. Enhanced colon recovery program advised 6. Full inpatient admission due to end-stage renal disease, dialysis dependent perioperatively and extremely high risk for surgical intervention 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 none since then, SWOLLEN OPTICAL NERVE & RETINA, STATES VISION BLURRED AT TIMES, PSEUDO TUMOR BRAIN, HX GOUT, ANEMIA, KIDNEY FAILURE-HAS DIALYSIS fistula LUE for HEMODIALYSIS [id number] FSGS (FOCAL SEGMENTAL GLOMERULOSCLEROSIS), COLITIS, DIVERTICULITIS, BLEEDING GASTRIC ULCER, colostomy History of Any Multi-Drug Resistant Organisms: None Reported Past Surgical History: Bowel Resection, Section, Cholecystectomy Additional Past Surgical History / Comment(s): peritoneal dialysis catheter and removal, Fistual LUE., sigmoid colectomy with colostomy, percutaneous cholecystostomy tube insertion and removal, lysis of adhesions Past Anesthesia/Blood Transfusion Reactions: No Reported Reaction Smoking Status: Former smoker - Past Family History Father Family Medical History: Myocardial Infarction ([place]) Additional Family Medical History / Comment(s): FATHER AT AGE 35 OF MASSIVE HEART ATTACK Mother Family Medical History: Cancer, Deep Vein Thrombosis (DVT) Additional Family Medical History / Comment(s): SKIN CANCER Medications and Allergies Home Medications Medication Instructions Recorded Confirmed Type Metoprolol Tartrate [Lopressor] 50 mg PO BID 11/11/21 05/14/23 History Velphoro 500mg Chewable Tab 1,000 mg PO TID-W/MEALS 11/02/22 05/14/23 History lisinopriL [Zestril] 20 mg PO BID 11/02/22 05/14/23 History Famotidine [Pepcid] 20 mg PO DAILY #30 tablet 11/23/22 05/14/23 Rx Ondansetron [Zofran] 4 mg PO Q8HR PRN #20 tab 11/23/22 05/14/23 Rx tiZANidine HCL [Zanaflex] 4 mg PO HS 11/30/22 05/14/23 History Acetaminophen Tab [Tylenol] 650 mg PO Q6HR PRN tab 12/07/22 05/14/23 Rx Sucralfate [Carafate] 1 gm PO AC-TID 30 Days #90 tab 12/07/22 05/14/23 Rx amLODIPine [Norvasc] 10 mg PO DAILY #30 tab 12/07/22 05/14/23 Rx cloNIDine HCL [Catapres] 0.1 mg PO TID #90 tab 12/07/22 05/14/23 Rx hydrALAZINE HCL [Apresoline] 100 mg PO TID 30 Days #180 tab 12/07/22 05/14/23 Rx Folic Acid-Vit B Complex-Vit C 1 cap PO DAILY 12/12/22 05/14/23 History [Nephrocaps] Mircera(Unk) 1 dose SQ Q15D 04/29/23 05/14/23 History HYDROcodone/APAP 5-325MG [Golden 1 tab PO DIRECTED PRN 05/14/23 05/14/23 History 5-325] Allergies Allergy/AdvReac Type Severity Reaction Status Date / Time Pertussis Vaccines Allergy seizures Verified 05/14/23 11:58 iron AdvReac Severe Nausea & Verified 05/14/23 11:58 Vomiting & Diarrhea ciprofloxacin [From Cipro] AdvReac UNCONTROLLABLE Verified 05/14/23 11:58 EMOTIONS PER PT
[~2023-05-16 06:41] MED LIST changes: +Antibiotics per Pharmacy 1 EACH MISC MISCELLANE PRN; -DEXAMETHASONE SOD PHOSPHATE 4 MG/ML 1 ML VIAL IV ONE; -DEXAMETHASONE SOD PHOSPHATE 4 MG/ML 1 ML VIAL ONE; -GELATIN SPONGE,ABSORB (LARGE) 1 EACH SPONGE TOPICAL ONE; -HEPARIN SODIUM,PORCINE (1 ML) 2,000 UNIT in SODIUM CHLORIDE 0.9% 500 ML 500 ML IRRIGATION ONE; -HEPARIN SODIUM,PORCINE 5,000 UNIT/ML 1 ML VIAL ONE; +HEPARIN SODIUM,PORCINE 5,000 UNIT/ML 1 ML VIAL SQ PRN; -HYDROmorphone 0.5 MG/0.5 ML SYRINGE IVP PRN; -LACTATED RINGERS 1,000 ML IV SCH; -LIDOCAINE 1% INJ 10MG/ML (20 ML MDV) SQ ONE; -MIDAZOLAM 2 MG/2 ML VIAL IV PRN; -MIDAZOLAM 2 MG/2 ML VIAL ONE; -ONDANSETRON 4 MG/2 ML VIAL IVP ONE; -PROPOFOL 10 MG/ML 20 ML VIAL IV ONE; -ROPIVACAINE 5 MG/ML 30 ML VIAL ONE; -SODIUM CHLORIDE 0.9% (PF) 10 ML VIAL ONE; -SODIUM CHLORIDE 0.9% 500 ML 500 ML IV ONE; -THROMBIN (BOVINE) 5,000 UNIT VIAL TOPICAL ONE; -ceFAZolin 2 GM in SODIUM CHLORIDE 0.9% 500 ML 500 ML IRRIGATION ONE; -fentaNYL (PF) 50 MCG/1 ML VIAL IVP ONE; -fentaNYL (PF) 50 MCG/ML 2 ML AMP ONE
[2023-05-16] MEDS: SODIUM CHLORIDE 0.9% 1,000 ML IV ONE (06:55)
[2023-05-16] MEDS: NA PHOS,M-B/NA PHOS,DI-BA 133 ML ENEMA RECTAL ONE ×2 (07:31→13:03)
[2023-05-16 07:36] LABS: Anisocytosis Slight; Basophils # (A) 0.1 k/uL (0-0.2); Basophils % (A) 1 %; Eosinophils # (A) 0.2 k/uL (0-0.7); Eosinophils % (A) 1 %; HCT 30.6 % (34.0-46.0); HGB 9.8 gm/dL (11.4-16.0); Hypochromasia Slight; Lymphocytes # (A) 1.9 k/uL (1.0-4.8); Lymphocytes % (A) 17 %; MCH 29.4 pg (25.0-35.0); Monocytes # (A) 0.5 k/uL (0-1.0); Monocytes % (A) 5 %; Neutrophils # (A) 8.7 k/uL (1.3-7.7); Neutrophils % (A) 75 %; Platelet Count 386 k/uL (150-450); Poikilocytosis Slight; RBC 3.33 m/uL (3.80-5.40); RDW 18.5 % (11.5-15.5); WBC 11.5 k/uL (3.8-10.6)
[2023-05-16] MEDS ORDERED: PROPOFOL 10 MG/ML 20 ML VIAL IV ONE (07:47)
[2023-05-16] MEDS ORDERED: LIDOCAINE 1% INJ 10MG/ML (20 ML MDV) ONE (07:47)
[2023-05-16 07:50] LABS: Partial Thromboplastin Time 24.7 sec (22.0-30.0); Prothrombin Time 10.5 sec (10.0-12.5)
--- NOTE | 2023-05-16 08:13 | P.PCN ---
Date of Procedure: 05/16/23 Description of Procedure: PREOPERATIVE DIAGNOSIS: History of perforated diverticulitis, sigmoid colon Descending colostomy status End-stage renal disease Chronic anemia POSTOPERATIVE DIAGNOSIS: Sigmoid diverticulosis History of perforated diverticulitis, sigmoid colon Descending colostomy status Rectal bleeding OPERATION: Colonoscopy via stoma to the cecum, ileocecal valve and appendiceal orifice. Flexible sigmoidoscopy using colonoscope SURGEON: Joanna Blackburn MD. ANESTHESIA: MAC. INDICATIONS: The patient is a 42-year-old male who presents with perforated diverticulitis subsequent ostomy creation. She presents for colonoscopy for evaluation of malignancy prior to reversal. Benefits and risks were described and informed consent was obtained. DESCRIPTION OF PROCEDURE: The patient had undergone Suprep pills. She was brought into the operating room and he was laid supine. After adequate intravenous sedation, the stoma appliance was removed. An Olympus colonoscope was advanced through the descending colostomy to the appendiceal orifice. The prep was excellent with clear visualization of the mucosal folds. The scope was removed with visualization of each mucosal fold. Severe scattered diverticulosis was encountered. No evidence of focal colitis was found. The colon was de sufflated. The stoma appliance was applied. The patient was transitioned in the left lateral decubitus position where along the previous anus, no palpable tumors were identified. The rectum was examined with 2% lidocaine jelly. No external hemorrhoids were encountered. The rectal tone was within normal limits. No lesions were palpated in the rectal vault. An Olympus colonoscope was advanced to the rectal stump. Mild proctitis of bleeding was identified. A few sigmoid diverticulosis was identified. The scope was passed 20 cm from the anal verge. Additional stump was found without inflammation. The scope was removed and grade 1 internal hemorrhoids without active bleeding or inflammation. The colon was desufflated. The patient had tolerated the procedure well. Withdrawal time was over 6 minutes. FINDINGS: Aronchick preparation quality scale 1 (1-5) Internal hemorrhoids, grade 1 No external prolapsed hemorrhoids. No arteriovenous malformations. Mild proctitis of bleeding No focal colitis. Moderate scattered diverticulosis Rectal stump 20 cm from the anal verge RECOMMENDATIONS: Lower endoscopy in 5 years, 2028
--- NOTE | 2023-05-16 08:14 | P.PN ---
Progress Note - Text Progress Note Date: 05/16/23 Patient presents with leukocytosis, worsening anemia, end-stage renal disease. Recommend inpatient admission with consultation to nephrology including started on antibiotics, type and screen for blood transfusion.
[2023-05-16] MEDS ORDERED: PEG 3350 (420 GM/BTL) + LYTES 4,000 ML BOTTLE PO ONE (09:00)
[2023-05-16 09:15] LABS: ALT 11 U/L (4-34); AST 22 U/L (14-36); African American GFR (CKD) 7 (>60 ml/min/1.73 sqM); Albumin 4.5 g/dL (3.5-5.0); Alkaline Phosphatase 68 U/L (38-126); Anion Gap 17 mmol/L; Blood Urea Nitrogen 26 mg/dL (7-17); Carbon Dioxide 28 mmol/L (22-30); Chloride 97 mmol/L (98-107); Glucose 99 mg/dL (74-99); Non-African American GFR(CKD) 6 (>60 ml/min/1.73 sqM); Potassium 4.3 mmol/L (3.5-5.1); Sodium 142 mmol/L (137-145); Total Bilirubin 0.6 mg/dL (0.2-1.3); Total Protein 7.9 g/dL (6.3-8.2)
[2023-05-16] MEDS: LACTATED RINGERS 1,000 ML IV SCH (13:03)
[2023-05-16] MEDS: D5-0.45% NACL WITH KCL 20MEQ/L 1,000 ML IV SCH (13:27)
[2023-05-16] MEDS: metroNIDAZOLE 500 MG TAB PO SCH (13:27)
[2023-05-16] MEDS: NEOMYCIN 500 MG TAB PO SCH (14:02)
[2023-05-16] MEDS: ONDANSETRON 4 MG/2 ML VIAL IVP SCH (18:09)
[2023-05-16] MEDS: SCOPOLAMINE 1 MG/72 HR PATCH TRANSDERM STA (18:11)
[2023-05-16] MEDS: TEMAZEPAM 15 MG CAP PO ONE (22:43)
[2023-05-17] MEDS ORDERED: [UNRECOGNIZED DRUG - OTHER] SQ SCH (00:30)
[2023-05-17] MEDS: hydrALAZINE HCL 50 MG TAB PO SCH (01:29)
[2023-05-17] MEDS: METOPROLOL TARTRATE 25 MG TAB PO SCH (01:30)
[2023-05-17] MEDS: cloNIDine HCL 0.1 MG TAB PO SCH (01:30)
[2023-05-17] MEDS: lisinopriL 10 MG TAB PO SCH (01:30)
[2023-05-17] MEDS: tiZANidine 4 MG TAB PO SCH (01:30)
[2023-05-17] MEDS: VELPHORO PO SCH (06:39)
[2023-05-17] MEDS: SUCRALFATE 1 GM TAB PO SCH (06:39)
[2023-05-17] MEDS: amLODIPine 10 MG TAB PO SCH (07:45)
[2023-05-17] MEDS: FAMOTIDINE 20 MG TAB PO SCH (07:48)
[2023-05-17] MEDS: FOLIC ACID-VIT B COMPLEX-VIT C 1 CAP PO SCH (07:48)
[2023-05-17 07:54] LABS: Anisocytosis Slight; Basophils # (A) 0.1 k/uL (0-0.2); Basophils % (A) 1 %; Eosinophils # (A) 0.2 k/uL (0-0.7); Eosinophils % (A) 2 %; HCT 27.1 % (34.0-46.0); HGB 8.8 gm/dL (11.4-16.0); Hypochromasia Slight; Lymphocytes # (A) 1.6 k/uL (1.0-4.8); Lymphocytes % (A) 19 %; MCH 29.9 pg (25.0-35.0); MCHC 32.5 g/dL (31.0-37.0); MCV 92.1 fL (80.0-100.0); Macrocytosis Slight; Mean Platelet Volume 7.6; Monocytes # (A) 0.4 k/uL (0-1.0); Monocytes % (A) 4 %; Neutrophils # (A) 6.1 k/uL (1.3-7.7); Neutrophils % (A) 73 %; Platelet Count 296 k/uL (150-450); Poikilocytosis Slight; RBC 2.95 m/uL (3.80-5.40); RDW 19.2 % (11.5-15.5); WBC 8.4 k/uL (3.8-10.6)
[2023-05-17 08:04] LABS: ALT 8 U/L (4-34); AST 17 U/L (14-36); African American GFR (CKD) 6 (>60 ml/min/1.73 sqM); Albumin 3.1 g/dL (3.5-5.0); Albumin/Globulin Ratio 1.3; Alkaline Phosphatase 49 U/L (38-126); Anion Gap 11 mmol/L; Blood Urea Nitrogen 30 mg/dL (7-17); Calcium 8.9 mg/dL (8.4-10.2); Carbon Dioxide 23 mmol/L (22-30); Chloride 99 mmol/L (98-107); Globulin 2.4 g/dL; Glucose 93 mg/dL (74-99); Non-African American GFR(CKD) 5 (>60 ml/min/1.73 sqM); Potassium 4.7 mmol/L (3.5-5.1); Sodium 133 mmol/L (137-145); Total Bilirubin 0.5 mg/dL (0.2-1.3); Total Protein 5.5 g/dL (6.3-8.2)
[2023-05-17] MEDS: SODIUM CHLORIDE 0.9% 1,000 ML IV ONE ×2 (10:54→14:38)
[2023-05-17] MEDS: ACETAMINOPHEN TAB 500 MG TAB PO PRN (11:10)
[2023-05-17] MEDS ORDERED: MIDAZOLAM 2 MG/2 ML VIAL ONE (11:10)
[2023-05-17] MEDS: ALVIMOPAN 12 MG CAPSULE PO PRN (11:10)
[2023-05-17] MEDS ORDERED: NEOSTIGMINE 1 MG/ML 10 ML VIAL ONE (11:10)
[2023-05-17] MEDS ORDERED: SUCCINYLCHOLINE CHLORIDE 200 MG/10 ML VIAL IV ONE (11:10)
[2023-05-17] MEDS: DEXAMETHASONE SOD PHOSPHATE 4 MG/ML 1 ML VIAL IVP ONE (11:10)
[2023-05-17] MEDS ORDERED: ROCURONIUM 10 MG/ML (5 ML VIAL) IV ONE (11:10)
[2023-05-17] MEDS ORDERED: GLYCOPYRROLATE 0.2 MG/ML 2 ML VIAL ONE (11:10)
[2023-05-17] MEDS ORDERED: PROPOFOL 10 MG/ML 20 ML VIAL IV ONE (11:10)
[2023-05-17] MEDS ORDERED: HYDROmorphone (PF) 1 MG/ML ONE (11:10)
[2023-05-17] MEDS: HEPARIN SODIUM,PORCINE 5,000 UNIT/ML 1 ML VIAL SQ PRN (11:10)
[2023-05-17] MEDS ORDERED: fentaNYL (PF) 50 MCG/ML 2 ML AMP ONE (11:10)
[2023-05-17] MEDS ORDERED: PHENYLEPHRINE-0.9% NACL SYG 1,000 MCG/10 ML SYRINGE ONE (11:10)
[2023-05-17] MEDS ORDERED: LIDOCAINE 1% INJ 10MG/ML (20 ML MDV) ONE (11:10)
[2023-05-17] MEDS: ONDANSETRON 4 MG/2 ML VIAL IVP PRN (11:11)
[2023-05-17] MEDS: metroNIDAZOLE-NS PMX 500 MG in SALINE 100 100ML.BAG IVPB PRN (11:46)
--- NOTE | 2023-05-17 12:20 | P.NPCON ---
History of Present Illness - Reason for Consult end stage renal disease - History of Present Illness Patient gone for surgery. Completed hemodialysis this morning with 1.5 L ultrafiltration. Will see tomorrow. 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 none since then, SWOLLEN OPTICAL NERVE & RETINA, STATES VISION BLURRED AT TIMES, PSEUDO TUMOR BRAIN, HX GOUT, ANEMIA, KIDNEY FAILURE-HAS DIALYSIS fistula LUE for HEMODIALYSIS -HX FSGS (FOCAL SEGMENTAL GLOMERULOSCLEROSIS), COLITIS, DIVERTICULITIS, BLEEDING GASTRIC ULCER, colostomy History of Any Multi-Drug Resistant Organisms: None Reported Past Surgical History: Bowel Resection, Section, Cholecystectomy Additional Past Surgical History / Comment(s): peritoneal dialysis catheter and removal, Fistual LUE., sigmoid colectomy with colostomy, percutaneous cholecystostomy tube insertion and removal, lysis of adhesions Past Anesthesia/Blood Transfusion Reactions: No Reported Reaction Past Psychological History: Anxiety Additional Psychological History / Comment(s): CURRENT ANXIETY Smoking Status: Former smoker Past Alcohol Use History: None Reported, Occasional Additional Past Alcohol Use History / Comment(s): QUIT SMOKING 2001, SMOKED 1/2 PPD, SMOKED 3 YEARS. Past Drug Use History: Marijuana Additional Drug Use History / Comment(s): Gummies. for sleep and pain. Pt aware not to use 24 hrs before procedure - Past Family History Father Family Medical History: Myocardial Infarction ([place]) Additional Family Medical History / Comment(s): FATHER AT AGE 35 OF MASSIVE HEART ATTACK Mother Family Medical History: Cancer, Deep Vein Thrombosis (DVT) Additional Family Medical History / Comment(s): SKIN CANCER Medications and Allergies Home Medications Medication Instructions Recorded Confirmed Type Metoprolol Tartrate [Lopressor] 50 mg PO BID 11/11/21 05/16/23 History Velphoro 500mg Chewable Tab 1,000 mg PO TID-W/MEALS 11/02/22 05/16/23 History lisinopriL [Zestril] 20 mg PO BID 11/02/22 05/16/23 History Famotidine [Pepcid] 20 mg PO DAILY #30 tablet 11/23/22 05/16/23 Rx Ondansetron [Zofran] 4 mg PO Q8HR PRN #20 tab 11/23/22 05/16/23 Rx tiZANidine HCL [Zanaflex] 4 mg PO HS 11/30/22 05/16/23 History Acetaminophen Tab [Tylenol] 650 mg PO Q6HR PRN tab 12/07/22 05/16/23 Rx Sucralfate [Carafate] 1 gm PO AC-TID 30 Days #90 tab 12/07/22 05/16/23 Rx amLODIPine [Norvasc] 10 mg PO DAILY #30 tab 12/07/22 05/16/23 Rx cloNIDine HCL [Catapres] 0.1 mg PO TID #90 tab 12/07/22 05/16/23 Rx hydrALAZINE HCL [Apresoline] 100 mg PO TID 30 Days #180 tab 12/07/22 05/16/23 Rx Folic Acid-Vit B Complex-Vit C 1 cap PO DAILY 12/12/22 05/16/23 History [Nephrocaps] Mircera(Unk) 1 dose SQ Q15D 04/29/23 05/16/23 History HYDROcodone/APAP 5-325MG [[address] 1 tab PO DIRECTED PRN 05/14/23 05/16/23 History 5-325] Allergies Allergy/AdvReac Type Severity Reaction Status Date / Time Pertussis Vaccines Allergy seizures Verified 05/17/23 10:54 iron AdvReac Severe Nausea & Verified 05/17/23 10:54 Vomiting & Diarrhea ciprofloxacin [From Cipro] AdvReac UNCONTROLLABLE Verified 05/17/23 10:54 EMOTIONS PER PT Physical Exam Vitals: Vital Signs Temp Pulse Resp BP Pulse Ox 05/17/23 11:35 97.5 F L 52 L 18 162/89 05/17/23 10:51 97.8 F 64 16 170/86 100 05/17/23 07:39 97.0 F L 55 L 18 125/80 98 05/17/23 01:22 98.1 F 85 18 163/84 99 05/16/23 20:45 14 05/16/23 19:30 98.2 F 67 18 144/80 97 05/16/23 13:28 98.0 F 70 17 171/95 100 05/16/23 13:18 98.0 F 70 17 171/95 100 05/16/23 12:34 68 16 143/88 97 Intake and Output 05/16/23 05/17/23 05/17/23 22:59 06:59 14:59 Intake Total 450 Output Total 225 1900 Balance -225 -1450 Intake: IV 50 Hemodialysis 400 Output: Stool 225 Hemodialysis 1900 Other: Voiding Method Toilet # Voids 1 1 # Bowel Movements 1 Weight 80.4 kg Results - Lab Results Most recent lab results Calcium 8.9 mg/dL (8.4-10.2) 05/17/23 07:03 05/17/23 07:03 05/17/23 07:03
[2023-05-17] MEDS: LACTATED RINGERS 1,000 ML IV SCH (13:25)
[2023-05-17] MEDS: HYDROmorphone 0.5 MG/0.5 ML SYRINGE IVP PRN (15:39)
[2023-05-17] MEDS ORDERED: NALOXONE 0.4 MG/ML 1 ML VIAL IV PRN (15:59)
--- NOTE | 2023-05-17 16:15 | P.CONS ---
History of Present Illness - Reason for Consult Consult date: 05/17/23 Medical management colostomy reversal - History of Present Illness This is a pleasant 42-year-old female who was admitted under general surgery services Dr. Blackburn who had perforated diverticulitis with sepsis and a p revious peritoneal dialysis catheter approximately 6 months ago and has been undergoing hemodialysis as there was concerns of spontaneous bacterial peritonitis. Patient is scheduled for colonoscopy evaluation and colostomy reversal. Patient follows with Dr. 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 Patient also has anxiety is a former smoker and occasionally uses marijuana from the past. Patient is currently n.p.o. awaiting to go colonoscopy and surgical intervention with colostomy removal today. Will await surgical report and continue to follow. Nephrology also consulted and will be receiving hemodialysis sometime today. REVIEW OF SYSTEMS: CONSTITUTIONAL: No fever, no malaise, no fatigue. HEENT: No recent visual problems or hearing problems. Denied any sore throat. CARDIOVASCULAR: No chest pain, orthopnea, PND, no palpitations, no syncope. PULMONARY: No shortness of breath, no cough, no hemoptysis. GASTROINTESTINAL: No diarrhea, no nausea, no vomiting, no abdominal pain. NEUROLOGICAL: No headaches, no weakness, no numbness. HEMATOLOGICAL: Denies any bleeding or petechiae. GENITOURINARY: Denies any burning micturition, frequency, or urgency. MUSCULOSKELETAL/RHEUMATOLOGICAL: Denies any joint pain, swelling, or any muscle pain. ENDOCRINE: Denies any polyuria or polydipsia. The rest of the 14-point review of systems is negative. PHYSICAL EXAMINATION: GENERAL: The patient is alert and oriented x3, not in any acute distress. Well developed, well nourished. Obese HEENT: Pupils are round and equally reacting to light. EOMI. No scleral icterus. No conjunctival pallor. Normocephalic, atraumatic. No pharyngeal erythema. No thyromegaly. CARDIOVASCULAR: S1 and S2 present. No murmurs, rubs, or gallops. PULMONARY: Chest is clear to auscultation, no wheezing or crackles. ABDOMEN: Soft, nontender, nondistended, normoactive bowel sounds. No palpable organomegaly. MUSCULOSKELETAL: No joint swelling or deformity. EXTREMITIES: No cyanosis, clubbing, or pedal edema. NEUROLOGICAL: Gross neurological examination did not reveal any focal deficits. SKIN: No rashes. Assessment: History of perforated diverticulitis with end colostomy, scheduled for colonoscopy with colostomy reversal today, report pending Previous history of peritoneal dialysis with spontaneous bacterial peritonitis and catheter was removed undergoing hemodialysis Hypertension Renal disease with end-stage renal disease and maintained on hemodialysis Saturday/Saturday/Saturday History of focal segmental glomerulosclerosis History of diverticulitis and colitis History of bleeding gastric ulcers History of pseudotumor on the brain History of anxiety Former smoker Obesity with a BMI of 30.4 GI prophylaxis DVT prophylaxis Full code Plan: Patient is admitted under surgical services scheduled for colonoscopy with end colostomy reversal and patient has been taken to the OR. Will await report Patient received hemodialysis this morning with nephrology following and will continue on same regimen Home medications reviewed and resumed as appropriate We will continue to follow with general surgery during hospitalization. Thank you kindly for this consultation Recommend follow-up labs in the a.m. The impression and plan of care has been dictated by Loly Flores, Nurse Practitioner as directed. Dr. Yuki MD I have performed a history and examination and MDM of this patient, discussed the same with the dictator, and agree with the dictator's assessment and plan as written ,documented as a scribe. Based on total visit time, I have performed more than 50% of the visit. 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 none since then, SWOLLEN OPTICAL NERVE & RETINA, STATES VISION BLURRED AT TIMES, PSEUDO TUMOR BRAIN, HX GOUT, ANEMIA, KIDNEY FAILURE-HAS DIALYSIS fistula LUE for HEMODIALYSIS [id number] FSGS (FOCAL SEGMENTAL GLOMERULOSCLEROSIS), COLITIS, DIVERTICULITIS, BLEEDING GASTRIC ULCER, colostomy History of Any Multi-Drug Resistant Organisms: None Reported Past Surgical History: Bowel Resection, Section, Cholecystectomy Additional Past Surgical History / Comment(s): peritoneal dialysis catheter and removal, Fistual LUE., sigmoid colectomy with colostomy, percutaneous cholecystostomy tube insertion and removal, lysis of adhesions Past Anesthesia/Blood Transfusion Reactions: No Reported Reaction Past Psychological History: Anxiety Additional Psychological History / Comment(s): CURRENT ANXIETY Smoking Status: Former smoker Past Alcohol Use History: None Reported, Occasional Additional Past Alcohol Use History / Comment(s): QUIT SMOKING 2001, SMOKED 1/2 PPD, SMOKED 3 YEARS. Past Drug Use History: Marijuana Additional Drug Use History / Comment(s): Gummies. for sleep and pain. Pt aware not to use 24 hrs before procedure - Past Family History Father Family Medical History: Myocardial Infarction ([place]) Additional Family Medical History / Comment(s): FATHER AT AGE 35 OF MASSIVE HEART ATTACK Mother Family Medical History: Cancer, Deep Vein Thrombosis (DVT) Additional Family Medical History / Comment(s): SKIN CANCER Medications and Allergies Home Medications Medication Instructions Recorded Confirmed Type Metoprolol Tartrate [Lopressor] 50 mg PO BID 11/11/21 05/16/23 History Velphoro 500mg Chewable Tab 1,000 mg PO TID-W/MEALS 11/02/22 05/16/23 History lisinopriL [Zestril] 20 mg PO BID 11/02/22 05/16/23 History Famotidine [Pepcid] 20 mg PO DAILY #30 tablet 11/23/22 05/16/23 Rx Ondansetron [Zofran] 4 mg PO Q8HR PRN #20 tab 11/23/22 05/16/23 Rx tiZANidine HCL [Zanaflex] 4 mg PO HS 11/30/22 05/16/23 History Acetaminophen Tab [Tylenol] 650 mg PO Q6HR PRN tab 12/07/22 05/16/23 Rx Sucralfate [Carafate] 1 gm PO AC-TID 30 Days #90 tab 12/07/22 05/16/23 Rx amLODIPine [Norvasc] 10 mg PO DAILY #30 tab 12/07/22 05/16/23 Rx cloNIDine HCL [Catapres] 0.1 mg PO TID #90 tab 12/07/22 05/16/23 Rx hydrALAZINE HCL [Apresoline] 100 mg PO TID 30 Days #180 tab 12/07/22 05/16/23 Rx Folic Acid-Vit B Complex-Vit C 1 cap PO DAILY 12/12/22 05/16/23 History [Nephrocaps] Mircera(Unk) 1 dose SQ Q15D 04/29/23 05/16/23 History HYDROcodone/APAP 5-325MG [[place] 1 tab PO DIRECTED PRN 05/14/23 05/16/23 History 5-325] Allergies Allergy/AdvReac Type Severity Reaction Status Date / Time Pertussis Vaccines Allergy seizures Verified 05/17/23 10:54 iron AdvReac Severe Nausea & Verified 05/17/23 10:54 Vomiting & Diarrhea ciprofloxacin [From Cipro] AdvReac UNCONTROLLABLE Verified 05/17/23 10:54 EMOTIONS PER PT Physical Exam Vitals: Vital Signs Temp Pulse Resp BP Pulse Ox 05/17/23 07:39 97.0 F L 55 L 18 125/80 98 05/17/23 01:22 98.1 F 85 18 163/84 99 05/16/23 20:45 14 05/16/23 19:30 98.2 F 67 18 144/80 97 05/16/23 13:28 98.0 F 70 17 171/95 100 05/16/23 13:18 98.0 F 70 17 171/95 100 05/16/23 12:34 68 16 143/88 97 Intake and Output 05/16/23 05/17/23 05/17/23 22:59 06:59 14:59 Output Total 225 Balance -225 Output: Stool 225 Other: Voiding Method Toilet # Voids 1 1 # Bowel Movements 1 Results CBC & Chem 7: 05/17/23 07:03 05/17/23 07:03 Labs: Abnormal Lab Results - Last 24 Hours (Table) 05/16/23 05/17/23 05/17/23 Range/Units 07:27 07:03 07:03 RBC 2.95 L (3.80-5.40) m/uL Hgb 8.8 L (11.4-16.0) gm/dL Hct 27.1 L (34.0-46.0) % RDW 19.2 H (11.5-15.5) % Sodium 133 L (137-145) mmol/L Chloride 97 L (98-107) mmol/L BUN 26 H 30 H (7-17) mg/dL Creatinine 7.58 H* 8.86 H* (0.52-1.04) mg/dL Total Protein 5.5 L (6.3-8.2) g/dL Albumin 3.1 L (3.5-5.0) g/dL
--- NOTE | 2023-05-17 16:23 | P.OP ---
Date of Procedure: 05/17/23 Description of Procedure: SURGEON: DARBY UNGER MD Preoperative Diagnosis: 1. Sigmoid diverticulitis with colon perforation with descending colostomy 2. History of gastric ulcer with bleeding 3. Peritoneal adhesions 4. History of fecal peritonitis with sepsis 5. End-stage renal disease, dialysis dependent 6. Chronic anemia 7. Hypertensive heart disease 8. Obesity due to excess calories, BMI 30.4 9. History of GI bleed Postoperative Diagnosis: 1. Chronic sigmoid diverticulitis with colon perforation with descending colostomy 2. Localized diverticular pelvic abscess 3. Peritoneal adhesions 4. History of fecal peritonitis with sepsis 5. End-stage renal disease, dialysis dependent 6. Chronic anemia 7. Hypertensive heart disease 8. Obesity due to excess calories, BMI 30.4 9. History of GI bleed 10. Severe pelvic phlegmon from diverticular abscess Procedure(s) Performed: 1. Diagnosis laparoscopy 2. Open extensive lysis of adhesions over 2.5 hours. 3. Drainage of bilateral pelvic sigmoid diverticular abscess 4. Application of PREVENA wound VAC 20 cm 5. Peritoneal lavage, 1 L normal saline 6. Intraoperative colonoscopy for sigmoidoscopy Anesthesia: GETA Estimated Blood Loss (ml): 250 Pathology: Aerobic anaerobic cultures diverticular abscess Condition: stable Disposition: floor Operative Findings: 1. Intra-abdominal adhesions over 2 hours lysis of adhesions including intraloop adhesions and pelvic adhesions 2. Intraoperative colonoscopy performed to assess remnant rectal length of 20 cm from the anal verge with air leak of rectal stump at 2-mm staple line 3. Staple line rectal stump tagged with 4-0 Prolene 4. Severe pelvic phlegmon and pockets of peritoneal abscess from chronic diverticulitis, 5 cc drained, cultures obtained 5. Due to severity of intra-abdominal adhesions, diagnosed laparoscopy performed for insufflation for safe entry into the abdomen 6. Blood transfusion given due to pre-existing severe anemia and expected blood loss INDICATIONS: The patient is a 42-year-old female who presents with history of complicated ruptured diverticulitis 6 months ago. She underwent a complicated surgical course including acute cholecystitis requiring open cholecystectomy, intra-abdominal sepsis, prolonged antibiotics. She presents today for descending colostomy reversal. She underwent dialysis this morning prior to surgery. She underwent an enhanced colon recovery program. Benefits and risks of surgical intervention were described in detail. Informed consent was obtained. DESCRIPTION: The patient was brought to the operating room. After general induction, a Prado catheter was placed. The abdomen was prepped and draped in standard sterile fashion. Ioban draping was also placed. A 4 x 4 was used to cover the colostomy site. Prior to incision, a timeout protocol was confirmed with surgical team regarding patient's name including procedures to be performed. Preoperative medications were confirmed. Attention was brought to the abdomen whereby a well healed lower midline incision was encountered. Next, a #10 blade was used to enter along the epigastrium and extended down to the pubis along the previous healed incision. Carefully the abdomen was entered using electro- Bovie cautery. Due to extremely dense adhesions, diagnostic laparoscopy with pneumoperitoneum was performed. A stab incision was placed along the left upper quadrant with entry into the peritoneum and insufflated to 15 mmHg pressure which she tolerated. Severe peritoneal adhesions abdominal adhesions were found prohibiting any view within the abdomen. Next attention was brought back to the midline incision. The greater omentum was adhered to the abdominal wall. Adhesions were addressed with a combination of blunt dissection with minimal electro-Bovie cautery. Interloop adhesions were similarly addressed using cautery. Extensive lysis adhesions were performed for over 2.5 hours. Multiple loops of small bowel including ileum, portion of jejunum was found adherent to the deep pelvis and remnant sigmoid colon. The uterus was also involved in the phlegmon with dense adhesions. All adhesions were lysed without enterotomies. Next along the bilateral pelvic sidewalls, pockets of abscesses were identified and drained t otal of 5 cc with cultures obtained confirming chronic diverticulitis with abscess. Prior to taking down the ostomy, and intraoperative sigmoidoscopy was performed using colonoscope to ensure no leaks of the rectal stump. I went to the foot of the bed where Olympus colonoscope was entered into the rectum. The pelvis was irrigated with warm normal saline solution for leak test. Upon placement of the scope into the sigmoid portion of the colon, a positive air leak was found confirming unhealed rectal stump from diverticulitis. With this finding, colostomy reversal was aborted to allow for antibiotics, incomplete resolution of inflammation and healing from diverticulitis. Length of rectal stump was 18 to 20 cm was confirmed. I re-scrubbed into the case. The abdomen was irrigated with warm normal saline solution of 1 L. The pelvis was completely dry. Drains were avoided to allow for any additional severe adhesive reaction. The abdomen was inspected for hemostasis and closed using 2 sutures of double- stranded 0 PDS from inferiorly and superiorly. The skin was cleansed and the Ioban draping was removed. The skin of the midline was closed using stainless skin heike. A 20-cm Prevena wound VAC system was placed at the midline. The apparatus was set to suction. At the end of the procedure, needle, sponge, and instrument count had been verified correct by the clinical dietetic technician. The patient was sent to the postanesthesia care unit in stable condition. Intraoperative findings were described to the patient's family including abandoning colostomy reversal due to active pelvic abscess and persistent chronic diverticulitis despite 6 months from index operation. Additional antibiotics will be needed including additional time of recovery for inflammation to resolve prior to any future colostomy reversal.
[2023-05-17] MEDS: HYDROmorphone 1 MG/ML 1 ML SYRINGE IVP PRN (18:43)
[2023-05-17] MEDS: HEPARIN SODIUM,PORCINE 5,000 UNIT/ML 1 ML VIAL SQ SCH (20:27)
[2023-05-17] MEDS: ACETAMINOPHEN TAB 325 MG TAB PO PRN (20:27)
--- NOTE | 2023-05-18 08:41 | US ---
EXAMINATION TYPE: US radial artery UE LT DATE OF EXAM: 05/18/2023 COMPARISON: NONE CLINICAL INDICATION: Female, 42 years old with history of thrombosed arteriovenous graft; Dialysis gr aft left lower arm placed 2 weeks ago. No thrill since last night TECHNIQUE: Targeted ultrasound FINDINGS: dialysis graft left lower arm appears thrombosed at this time, unable to obtain color flow or waveforms IMPRESSION: Complete thrombosis or nonpatency of thrombosed graft is felt present.
[2023-05-18 10:31] LABS: Basophils # (A) 0.04 X 10*3/uL (0.00-0.10); Basophils % (A) 0.3 %; Eosinophils # (A) 0.03 X 10*3/uL (0.04-0.35); Eosinophils % (A) 0.2 %; HCT 30.4 % (37.2-46.3); HGB 9.3 g/dL (12.0-15.0); Lymphocytes # (A) 1.56 X 10*3/uL (0.90-5.00); Lymphocytes % (A) 12.4 %; MCH 29.1 pg (27.0-32.0); MCHC 30.6 g/dL (32.0-37.0); Mean Platelet Volume 9.3 FL (9.5-12.2); Monocytes % (A) 6.3 %; NRBC Per 100 WBC 0 X 10*3/uL (0.00-0.01); Neutrophils # (A) 10.13 X 10*3/uL (1.80-7.70); Neutrophils % (A) 80.4 %; Platelet Count 235 X 10*3/uL (140-440); RDW 18.2 % (11.5-14.5); WBC 12.61 X 10*3/uL (4.50-10.00)
[2023-05-18] MEDS: PIPERACILLIN-TAZOBACTAM 3.375 GM in SODIUM CHLORIDE 0.9% 100 ML IVPB SCH (10:33)
[2023-05-18 11:12] LABS: BUN/Creat Ratio 2.83 Ratio (12.00-20.00); Blood Urea Nitrogen 21.2 mg/dL (9.0-27.0); Calcium 8.5 mg/dL (8.7-10.3); Carbon Dioxide 22.8 mmol/L (21.6-31.8); Chloride 99 mmol/L (96-109); Glucose 154 mg/dL (70-110); Potassium 5.8 mmol/L (3.5-5.5); Sodium 134 mmol/L (135-145)
--- NOTE | 2023-05-18 11:26 | P.GSCN ---
History of Present Illness Consult date: 05/18/23 History of present illness: Patient is a 42-year-old female known to our group from previous left upper extremity loop forearm graft. Recently placed 05/03/2023. Yesterday she underwent dialysis via tunneled chest wall catheter and subsequently elective surgical intervention with colonoscopy on 05/16 and subsequent attempt at ostomy reversal 05/17 with encountered significant adhesive disease and intra-abdominal abscesses with aborted procedure. Patient stated that yesterday in the morning she felt a thrill in her arm as she previously had felt and thought that when she woke up from surgery and was more alert she was not able to feel anything similarly. She denies any fevers, chills, nausea or vomiting. Her pain is in relation to her recent abdominal surgery. 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 none since then, SWOLLEN OPTICAL NERVE & RETINA, STATES VISION BLURRED AT TIMES, PSEUDO TUMOR BRAIN, HX GOUT, ANEMIA, KIDNEY FAILURE-HAS DIALYSIS fistula LUE for HEMODIALYSIS [id number] FSGS (FOCAL SEGMENTAL GLOMERULOSCLEROSIS), COLITIS, DIVERTICULITIS, BLEEDING GASTRIC ULCER, colostomy History of Any Multi-Drug Resistant Organisms: None Reported Past Surgical History: Bowel Resection, Section, Cholecystectomy Additional Past Surgical History / Comment(s): peritoneal dialysis catheter and removal, Fistual LUE., sigmoid colectomy with colostomy, percutaneous cholec ystostomy tube insertion and removal, lysis of adhesions Past Anesthesia/Blood Transfusion Reactions: No Reported Reaction Past Psychological History: Anxiety Additional Psychological History / Comment(s): CURRENT ANXIETY Smoking Status: Former smoker Past Alcohol Use History: None Reported, Occasional Additional Past Alcohol Use History / Comment(s): QUIT SMOKING 2001, SMOKED 1/2 PPD, SMOKED 3 YEARS. Past Drug Use History: Marijuana Additional Drug Use History / Comment(s): Gummies. for sleep and pain. Pt aware not to use 24 hrs before procedure - Past Family History Father Family Medical History: Myocardial Infarction ([place]) Additional Family Medical History / Comment(s): FATHER AT AGE 35 OF MASSIVE HEART ATTACK Mother Family Medical History: Cancer, Deep Vein Thrombosis (DVT) Additional Family Medical History / Comment(s): SKIN CANCER Medications and Allergies Home Medications Medication Instructions Recorded Confirmed Type Metoprolol Tartrate [Lopressor] 50 mg PO BID 08/13/22 02/15/24 History Velphoro 500mg Chewable Tab 1,000 mg PO TID-W/MEALS 11/02/22 05/16/23 History lisinopriL [Zestril] 20 mg PO BID 11/02/22 05/16/23 History Famotidine [Pepcid] 20 mg PO DAILY #30 tablet 11/23/22 05/16/23 Rx Ondansetron [Zofran] 4 mg PO Q8HR PRN #20 tab 11/23/22 05/16/23 Rx tiZANidine HCL [Zanaflex] 4 mg PO HS 11/30/22 05/16/23 History Acetaminophen Tab [Tylenol] 650 mg PO Q6HR PRN tab 12/07/22 05/16/23 Rx Sucralfate [Carafate] 1 gm PO AC-TID 30 Days #90 tab 12/07/22 05/16/23 Rx amLODIPine [Norvasc] 10 mg PO DAILY #30 tab 12/07/22 05/16/23 Rx cloNIDine HCL [Catapres] 0.1 mg PO TID #90 tab 12/07/22 05/16/23 Rx hydrALAZINE HCL [Apresoline] 100 mg PO TID 30 Days #180 tab 12/07/22 05/16/23 Rx Folic Acid-Vit B Complex-Vit C 1 cap PO DAILY 12/12/22 05/16/23 History [Nephrocaps] Mircera(Unk) 1 dose SQ Q15D 04/29/23 05/16/23 History HYDROcodone/APAP 5-325MG [[address] 1 tab PO DIRECTED PRN 05/14/23 05/16/23 History 5-325] Allergies Allergy/AdvReac Type Severity Reaction Status Date / Time Pertussis Vaccines Allergy seizures Verified 05/17/23 10:54 iron AdvReac Severe Nausea & Verified 05/17/23 10:54 Vomiting & Diarrhea ciprofloxacin [From Cipro] AdvReac UNCONTROLLABLE Verified 05/17/23 10:54 EMOTIONS PER PT Surgical - Exam Vital Signs Temp Pulse BP Pulse Ox 98 F 71 150/98 96 05/16/23 07:21 05/16/23 07:21 05/16/23 07:21 05/16/23 07:21 GENERAL: The patient is alert and oriented x3, not in any acute distress. Well developed, well nourished. Obese HEENT: Pupils are round EOMI. No scleral icterus. PULMONARY: No respiratory distress ABDOMEN: Soft, dressings in place. MUSCULOSKELETAL: No joint swelling or deformity. EXTREMITIES: No cyanosis, clubbing, or pedal edema. Left upper extremity loop forearm graft incisions healing. No erythema or drainage. No palpable thrill or augmentation to the graft NEUROLOGICAL: Gross neurological examination did not reveal any focal deficits. SKIN: No rashes. Results - Labs 05/18/23 06:19 05/17/23 07:03 Abnormal Lab Results - Last 24 Hours (Table) 05/16/23 05/18/23 Range/Units 07:27 06:19 WBC 12.61 H (4.50-10.00) X 10*3/uL RBC 3.20 L (4.10-5.20) X 10*6/uL Hgb 9.3 L (12.0-15.0) g/dL Hct 30.4 L (37.2-46.3) % MCHC 30.6 L (32.0-37.0) g/dL RDW 18.2 H (11.5-14.5) % MPV 9.3 L (9.5-12.2) FL Immature Gran # 0.05 H (0.00-0.04) X 10*3/uL Neutrophils # 10.13 H (1.80-7.70) X 10*3/uL Eosinophils # 0.03 L (0.04-0.35) X 10*3/uL Crossmatch See Detail Assessment and Plan Assessment: End-stage renal disease, dialysis dependent Thrombosed left upper extremity loop forearm graft, recently placed 05/03/2023 History of perforated diverticulitis and sepsis status post Brandon's procedure Postop attempted/aborted reversal of colostomy due to intra-abdominal abscess/adhesions Plan: Long discussion had with the patient regarding options. The graft itself is thrombosed based on imaging. She currently is able to receive dialysis via chest wall tunneled catheter. Continue with this. We discussed options including open thrombectomy versus no intervention and continuing with tunnel catheter. At this time she is on board with going forward with interventions necessary to salvage the left loop forearm graft as it is new. Will plan open thrombectomy on 05/20/2023. N.p.o. after midnight Saturday. D/w nephro, plan dialysis early Saturday
--- NOTE | 2023-05-18 13:56 | P.PN ---
Subjective Progress Note Date: 05/18/23 Principal diagnosis: Pelvic abscesses The patient is comfortable after surgery yesterday. Abdomen, stoma, and incision drsg OK Continue post op management Objective - Vital Signs Vital signs: Vital Signs Temp 99.2 F 05/18/23 13:05 Pulse 60 05/18/23 13:05 Resp 16 05/18/23 13:05 BP 152/86 05/18/23 13:05 Pulse Ox 98 05/18/23 13:05 FiO2 Intake & Output 05/17/23 05/18/23 05/18/23 18:59 06:59 18:59 Intake Total 1920 1320 700 Output Total 2150 Balance -230 1320 700 Weight 80.4 kg Intake: IV 1210 Intake, IV Titration 900 700 Amount D5-0.45% NaCl with KCl 900 600 20Meq/l 1,000 ml @ 75 mls /hr IV .[id number] [facility] Rx#: [id number] Piperacillin-Tazobactam 3 100 .375 gm In Sodium Chloride 0.9% 100 ml @ 25 mls/hr IVPB Q12HR [facility] Rx #:[id number] Oral 420 Blood Product 310 Rc As-1 Unit 310 [id number] Hemodialysis 400 Output: Urine 0 Hemodialysis 1900 Estimated Blood Loss 250 Other: # Voids 3 - Labs CBC & Chem 7: 05/18/23 06:19 05/18/23 06:19 Labs: Abnormal Lab Results - Last 24 Hours (Table) 05/16/23 05/18/23 05/18/23 Range/Units 07:27 06:19 06:19 WBC 12.61 H (4.50-10.00) X 10*3/uL RBC 3.20 L (4.10-5.20) X 10*6/uL Hgb 9.3 L (12.0-15.0) g/dL Hct 30.4 L (37.2-46.3) % MCHC 30.6 L (32.0-37.0) g/dL RDW 18.2 H (11.5-14.5) % MPV 9.3 L (9.5-12.2) FL Immature Gran # 0.05 H (0.00-0.04) X 10*3/uL Neutrophils # 10.13 H (1.80-7.70) X 10*3/uL Eosinophils # 0.03 L (0.04-0.35) X 10*3/uL Sodium 134 L (135-145) mmol/L Potassium 5.8 H (3.5-5.5) mmol/L Anion Gap 12.20 H (4.00-12.00) mmol/L Creatinine 7.5 A* (0.6-1.5) mg/dL Est GFR (CKD-EPI) 6 L (>=60) BUN/Creatinine Ratio 2.83 L (12.00-20.00) Ratio Glucose 154 H (70-110) mg/dL Calcium 8.5 L (8.7-10.3) mg/dL Crossmatch See Detail
[2023-05-18] MEDS: SODIUM ZIRCONIUM CYCLOSILICATE 10 GM PACKET PO ONE (15:33)
[2023-05-18] MEDS: DEXTROSE 5%-0.45% NACL 1,000 ML IV SCH (16:36)
--- NOTE | 2023-05-18 19:27 | P.NPCON ---
History of Present Illness - Reason for Consult Consult date: 05/18/23 - History of Present Illness Patient is a 42-year-old female known to our group from previous left upper extremity loop forearm graft. Recently placed 05/03/2023. Yesterday she underwent dialysis via tunneled chest wall catheter and subsequently elective surgical intervention with colonoscopy on 05/16 and subsequent attempt at ostomy reversal 05/17 with encountered significant adhesive disease and intra-abdominal abscesses with aborted procedure. Patient stated that yesterday in the morning she felt a thrill in her arm as she previously had felt and thought that when she woke up from surgery and was more alert she was not able to feel anything similarly. She denies any fevers, chills, nausea or vomiting. Her pain is in relation to her recent abdominal surgery. She underwent dialysis yesterday without issues. VS stable. HEENT: No JVD. HEART: regular rate and rhythm. Abdomen: soft, tender, abdominal dressing Ext: Trace edema. 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 none since then, SWOLLEN OPTICAL NERVE & RETINA, STATES VISION BLURRED AT TIMES, PSEUDO TUMOR BRAIN, HX GOUT, ANEMIA, KIDNEY FAILURE-HAS DIALYSIS fistula LUE for HEMODIALYSIS [id number] FSGS (FOCAL SEGMENTAL GLOMERULOSCLEROSIS), COLITIS, DIVERTICULITIS, BLEEDING GASTRIC ULCER, colostomy History of Any Multi-Drug Resistant Organisms: None Reported Past Surgical History: Bowel Resection, Section, Cholecystectomy Additional Past Surgical History / Comment(s): peritoneal dialysis catheter and removal, Fistual LUE., sigmoid colectomy with colostomy, percutaneous cholecystostomy tube insertion and removal, lysis of adhesions Past Anesthesia/Blood Transfusion Reactions: No Reported Reaction Past Psychological History: Anxiety Additional Psychological History / Comment(s): CURRENT ANXIETY Smoking Status: Former smoker Past Alcohol Use History: None Reported, Occasional Additional Past Alcohol Use History / Comment(s): QUIT SMOKING 2001, SMOKED 1/2 PPD, SMOKED 3 YEARS. Past Drug Use History: Marijuana Additional Drug Use History / Comment(s): Gummies. for sleep and pain. Pt aware not to use 24 hrs before procedure - Past Family History Father Family Medical History: Myocardial Infarction ([place]) Additional Family Medical History / Comment(s): FATHER AT AGE 35 OF MASSIVE HEART ATTACK Mother Family Medical History: Cancer, Deep Vein Thrombosis (DVT) Additional Family Medical History / Comment(s): SKIN CANCER Medications and Allergies Home Medications Medication Instructions Recorded Confirmed Type Metoprolol Tartrate [Lopressor] 50 mg PO BID 11/11/21 05/16/23 History Velphoro 500mg Chewable Tab 1,000 mg PO TID-W/MEALS 11/02/22 05/16/23 History lisinopriL [Zestril] 20 mg PO BID 11/02/22 05/16/23 History Famotidine [Pepcid] 20 mg PO DAILY #30 tablet 11/23/22 05/16/23 Rx Ondansetron [Zofran] 4 mg PO Q8HR PRN #20 tab 11/23/22 05/16/23 Rx tiZANidine HCL [Zanaflex] 4 mg PO HS 11/30/22 05/16/23 History Acetaminophen Tab [Tylenol] 650 mg PO Q6HR PRN tab 12/07/22 05/16/23 Rx Sucralfate [Carafate] 1 gm PO AC-TID 30 Days #90 tab 12/07/22 05/16/23 Rx amLODIPine [Norvasc] 10 mg PO DAILY #30 tab 12/07/22 05/16/23 Rx cloNIDine HCL [Catapres] 0.1 mg PO TID #90 tab 12/07/22 05/16/23 Rx hydrALAZINE HCL [Apresoline] 100 mg PO TID 30 Days #180 tab 12/07/22 05/16/23 Rx Folic Acid-Vit B Complex-Vit C 1 cap PO DAILY 12/12/22 05/16/23 History [Nephrocaps] Mircera(Unk) 1 dose SQ Q15D 04/29/23 05/16/23 History HYDROcodone/APAP 5-325MG [[place] 1 tab PO DIRECTED PRN 05/14/23 05/16/23 History 5-325] Allergies Allergy/AdvReac Type Severity Reaction Status Date / Time Pertussis Vaccines Allergy seizures Verified 05/17/23 10:54 iron AdvReac Severe Nausea & Verified 05/17/23 10:54 Vomiting & Diarrhea ciprofloxacin [From Cipro] AdvReac UNCONTROLLABLE Verified 05/17/23 10:54 EMOTIONS PER PT Physical Exam Vitals: Vital Signs Temp Pulse Resp BP Pulse Ox 05/18/23 07:29 98.2 F 65 17 149/90 98 05/18/23 01:36 97.3 F L 71 21 152/92 98 05/17/23 19:13 97.2 F L 66 20 143/82 97 05/17/23 15:57 65 14 137/82 98 05/17/23 15:42 60 12 137/81 99 05/17/23 15:27 83 19 141/74 95 05/17/23 15:12 72 15 136/67 100 05/17/23 14:57 97 F L 62 14 153/75 100 Intake and Output 05/17/23 05/18/23 05/18/23 22:59 06:59 14:59 Intake Total 1320 Balance 1320 Intake: Intake, IV Titration 900 Amount D5-0.45% NaCl with KCl 900 20Meq/l 1,000 ml @ 75 mls /hr IV .[id number] [facility] Rx#: [id number] Oral 420 Other: # Voids 3 Results - Lab Results Most recent lab results Calcium 8.5 mg/dL (8.7-10.3) L 05/18/23 06:19 05/18/23 06:19 05/18/23 06:19 Assessment and Plan Plan: Assessment: 1. End-stage renal disease maintained on hemodialysis on Saturday schedule. Access Left IJ Permcath, clotted left arm AVG. 2. Hypertension with chronic kidney disease. Stable. 3. Chronic kidney disease mineral bone disease- on Velphoro 4. Anemia of chronic kidney disease. On Aranesp. 5. History of perforated diverticulitis with pelvic abscess s/p colostomy. s/p Ex-lap with lysis of adhesions. 6. Hyperkalemia. Plan: Hemodialysis yesterday, next HD Saturday. Vascular consulted, plan for AVG thrombectomy on Saturday. Surgery following, no further surgical plans this visit. Continue antibiotics. Bruce ordered, hold Lisinopril, further management with HD.
--- NOTE | 2023-05-18 22:26 | P.CONS ---
History of Present Illness - Reason for Consult Consult date: 05/18/23 Chronic diverticular abscess Requesting physician: Joanna Blackburn - Chief Complaint Abdominal pain x 1 day - History of Present Illness Patient is a 42-year-old female with a past medical history significant for hypertension seizure disorder end-stage renal disease on dialysis patient also have a complicated history of diverticulitis with perforation requiring diverting colostomy and also have a acute cholecystitis required cholecystotomy tube placement followed by cholecystectomy patient was electively admitted to the hospital for reversal of her colostomy however patient was noticed to have evidence of pelvic abscess in this patient was status post extensive lysis of adhesion and drainage of the diverticular abscess patient received cefazolin and Flagyl perioperatively infectious disease was consulted for further management of antibiotic therapy. On today's evaluation that is 05/18/2023 the patient denies having any fever or any chills and did not have any fever prior to presentation to the hospital denies any headache or URI symptoms no chest pain shortness of breath or cough patient be complaining of some lower abdominal pain postsurgery mostly dull aching occasional sharp moderate intensity without radiation and denies any nausea no vomiting patient on presentation to the hospital was afebrile and no fever have been recorded subsequently patient was not tachycardic or hypotensive did have white count of 11.5 with a left shift creatinine is 7.5 potassium 5.8 liver enzymes are normal Review of Systems Positive point and negatives has been mentioned in the HPI, complete review of systems was performed and all other systems are negative 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 none since then, SWOLLEN OPTICAL NERVE & RETINA, STATES VISION BLURRED AT TIMES, PSEUDO TUMOR BRAIN, HX GOUT, ANEMIA, KIDNEY FAILURE-HAS DIALYSIS fistula LUE for HEMODIALYSIS [id number] FSGS (FOCAL SEGMENTAL GLOMERULOSCLEROSIS), COLITIS, DIVERTICULITIS, BLEEDING GASTRIC ULCER, colostomy History of Any Multi-Drug Resistant Organisms: None Reported Past Surgical History: Bowel Resection, Section, Cholecystectomy Additional Past Surgical History / Comment(s): peritoneal dialysis catheter and removal, Fistual LUE., sigmoid colectomy with colostomy, percutaneous cholecystostomy tube insertion and removal, lysis of adhesions Past Anesthesia/Blood Transfusion Reactions: No Reported Reaction Past Psychological History: Anxiety Additional Psychological History / Comment(s): CURRENT ANXIETY Smoking Status: Former smoker Past Alcohol Use History: None Reported, Occasional Additional Past Alcohol Use History / Comment(s): QUIT SMOKING 2001, SMOKED 1/2 PPD, SMOKED 3 YEARS. Past Drug Use History: Marijuana Additional Drug Use History / Comment(s): Gummies. for sleep and pain. Pt aware not to use 24 hrs before procedure - Past Family History Father Family Medical History: Myocardial Infarction ([place]) Additional Family Medical History / Comment(s): FATHER AT AGE 35 OF MASSIVE HEART ATTACK Mother Family Medical History: Cancer, Deep Vein Thrombosis (DVT) Additional Family Medical History / Comment(s): SKIN CANCER Medications and Allergies Home Medications Medication Instructions Recorded Confirmed Type Metoprolol Tartrate [Lopressor] 50 mg PO BID 11/11/21 05/16/23 History Velphoro 500mg Chewable Tab 1,000 mg PO TID-W/MEALS 11/02/22 05/16/23 History lisinopriL [Zestril] 20 mg PO BID 11/02/22 05/16/23 History Famotidine [Pepcid] 20 mg PO DAILY #30 tablet 11/23/22 05/16/23 Rx Ondansetron [Zofran] 4 mg PO Q8HR PRN #20 tab 11/23/22 05/16/23 Rx tiZANidine HCL [Zanaflex] 4 mg PO HS 11/30/22 05/16/23 History Sucralfate [Carafate] 1 gm PO AC-TID 30 Days #90 tab 12/07/22 05/16/23 Rx amLODIPine [Norvasc] 10 mg PO DAILY #30 tab 12/07/22 05/16/23 Rx cloNIDine HCL [Catapres] 0.1 mg PO TID #90 tab 12/07/22 05/16/23 Rx hydrALAZINE HCL [Apresoline] 100 mg PO TID 30 Days #180 tab 12/07/22 05/16/23 Rx Folic Acid-Vit B Complex-Vit C 1 cap PO DAILY 12/12/22 05/16/23 History [Nephrocaps] Mircera(Unk) 1 dose SQ Q15D 04/29/23 05/16/23 History HYDROcodone/APAP 5-325MG [[place] 1 tab PO DIRECTED PRN 05/14/23 05/16/23 History 5-325] Amoxic-Pot Clav 500-125 mg 1 tab PO Q24HR 14 Days #14 tab 05/23/23 Rx [Augmentin 500-125 mg] Acetaminophen Tab [Tylenol Tab] 1,000 mg PO Q6HR PRN #30 tablet 05/24/23 Rx Simethicone 40 mg/0.6 ml Drops 40 mg PO QID #30 ml 05/24/23 Rx [Mylicon Drops] Allergies Allergy/AdvReac Type Severity Reaction Status Date / Time Pertussis Vaccines Allergy seizures Verified 05/20/23 13:26 iron AdvReac Severe Nausea & Verified 05/20/23 13:26 Vomiting & Diarrhea ciprofloxacin [From Cipro] AdvReac UNCONTROLLABLE Verified 05/20/23 13:26 EMOTIONS PER PT Physical Exam Vitals: Vital Signs Temp Pulse Resp BP Pulse Ox 05/18/23 07:29 98.2 F 65 17 149/90 98 05/18/23 01:36 97.3 F L 71 21 152/92 98 05/17/23 19:13 97.2 F L 66 20 143/82 97 05/17/23 15:57 65 14 137/82 98 05/17/23 15:42 60 12 137/81 99 05/17/23 15:27 83 19 141/74 95 05/17/23 15:12 72 15 136/67 100 05/17/23 14:57 97 F L 62 14 153/75 100 05/17/23 11:35 97.5 F L 52 L 18 162/89 05/17/23 10:51 97.8 F 64 16 170/86 100 Intake and Output 05/17/23 05/18/23 05/18/23 22:59 06:59 14:59 Intake Total 1320 Balance 1320 Intake: Intake, IV Titration 900 Amount D5-0.45% NaCl with KCl 900 20Meq/l 1,000 ml @ 75 mls /hr IV .[id number] [facility] Rx#: [id number] Oral 420 Other: # Voids 3 GENERAL DESCRIPTION: Middle-aged female lying in bed, no distress. No tachypnea or accessory muscle of respiration use. HEENT: Shows Pallor , no scleral icterus. Oral mucous membrane is dry. No pharyngeal erythema or thrush NECK: Trachea central, no thyromegaly. LUNGS: Unlabored breathing. Clear to auscultation anteriorly. No wheeze or crackle. HEART: S1, S2, regular rate and rhythm. No loud murmur ABDOMEN: Soft, mild tenderness , no guarding or rigidity EXTREMITIES: No edema of feet. SKIN: No rash, no masses palpable. NEUROLOGICAL: The patient is awake, alert, oriented x3, mood and affect normal. Results CBC & Chem 7: 05/22/23 14:57 05/22/23 14:57 Labs: Abnormal Lab Results - Last 24 Hours (Table) 05/16/23 Range/Units 07:27 Crossmatch See Detail Assessment and Plan (1) Intra-abdominal abscess Current Visit: No Status: Acute Code(s): K65.1 - PERITONEAL ABSCESS SNOMED Code(s): 02664378 Plan: 1patient with a complicated history of diverticulitis, peridiverticular abscess treated surgically in this patient who did have diabetic colostomy now admitted to the hospital for reversal of her diverting colostomy however the patient was noticed to have pelvic abscess in this patient who is status post lysis of adhesions and drainage of the pelvic abscess cultures obtained which are currently pending we will need to cover for enteric gram-negative both aerobes and anaerobes 2-we will empirically start patient on Zosyn 3.375 g every 12-hour 3-check inflammatory markers We will follow on clinical condition and cultures to further adjust medication if needed Thank you for this consultation we will follow the patient along with you Dictation was produced using [employer] dictation software. please excuse any grammatical, word or spelling errors. Time with Patient: Greater than 30
--- NOTE | 2023-05-18 22:49 | P.PN ---
Subjective Progress Note Date: 05/18/23 This is a pleasant 42-year-old female who was admitted under general surgery services Dr. Blackburn who had perforated diverticulitis with sepsis and a previous peritoneal dialysis catheter approximately 6 months ago and has been undergoing hemodialysis as there was concerns of spontaneous bacterial per itonitis. Patient is scheduled for colonoscopy evaluation and colostomy reversal. Patient follows with Dr. 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 Patient also has anxiety is a former smoker and occasionally uses marijuana from the past. Patient is currently n.p.o. awaiting to go colonoscopy and surgical intervention with colostomy removal today. Will await surgical report and continue to follow. Nephrology also consulted and will be receiving hemodialysis sometime today. 05/18/2023 Patient is evaluated today on the medical floor he was taken for surgery for possible colostomy reversal. This was unable to be completed due to the finding of bilateral pelvic sigmoid diverticular abscess which were drained as well as extensive lysis of adhesions and peritoneal lavage. Patient has Prevena wound VAC closure midline. She has not had any stool from the ostomy since surgery. She reports mild abdominal pain. Patient has a maturing fistula in the left arm felt that there was no thrill present which was confirmed by nursing and vascular services was consulted. Patient had a duplex ultrasound completed of the fistula to the left arm confirming a complete thrombosis and vascular is planning on taking the patient to the OR for this on Saturday. Review of Systems Constitutional: Denied any fatigue denied any fever. Cardio vascular: denied any chest pain, palpitations Gastrointestinal: denied any nausea, vomiting, diarrhea Pulmonary: Denied any shortness of breath cough Neurologic denied any new focal deficits All inpatient medications were reviewed and appropriate changes in these medications as dictated in the interval history and assessment and plan. PHYSICAL EXAMINATION: GENERAL: The patient is alert and oriented x3, not in any acute distress. Well developed, well nourished. Obese HEENT: Pupils are round and equally reacting to light. EOMI. No scleral icterus. No conjunctival pallor. Normocephalic, atraumatic. No pharyngeal erythema. No thyromegaly. CARDIOVASCULAR: S1 and S2 present. No murmurs, rubs, or gallops. PULMONARY: Chest is clear to auscultation, no wheezing or crackles. ABDOMEN: Soft, nontender, nondistended, normoactive bowel sounds. No palpable organomegaly. MUSCULOSKELETAL: No joint swelling or deformity. EXTREMITIES: No cyanosis, clubbing, or pedal edema. NEUROLOGICAL: Gross neurological examination did not reveal any focal deficits. SKIN: No rashes. Assessment: -History of perforated diverticulitis with end colostomy the plan for colostomy reversal has been aborted this admission due to multiple abscesses noted in the abdominal cavity. Patient is posoperative day #1 diagnostic laparotomy, lysis of adhesions, drainage of abscess. 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 Home medications reviewed and resumed as appropriate Vascular surgery consulted planning for open thrombectomy of the fistula to the left arm. We will continue to follow with general surgery during hospitalization. Thank you kindly for this consultation Recommend follow-up labs in the a.m. The impression and plan of care has been dictated by Roberta Miguel Nurse Practitioner as directed. Dr. Yuki MD I have performed a history and physical examination and medical decision making of this patient, discussed the same with the dictator, and agree with the dictators assessment and plan as written, documented as a scribe. Based on total visit time, I have performed more than 50% of this visit. Objective - Vital Signs Vital signs: Vital Signs Temp 98.2 F 05/18/23 19:42 Pulse 69 05/18/23 19:42 Resp 20 05/18/23 19:42 BP 166/82 05/18/23 19:42 Pulse Ox 92 L 05/18/23 19:42 FiO2 Intake & Output 05/18/23 05/18/23 05/19/23 06:59 18:59 06:59 Intake Total 1320 700 Balance 1320 700 Intake: Intake, IV Titration 900 700 Amount D5-0.45% NaCl with KCl 900 600 20Meq/l 1,000 ml @ 75 mls /hr IV .[id number] VANESSA Rx#: [id number] Piperacillin-Tazobactam 3 100 .375 gm In Sodium Chloride 0.9% 100 ml @ 25 mls/hr IVPB Q12HR [facility]ANES[facility] Rx #:[id number] Oral 420 Other: # Voids 3 - Labs CBC & Chem 7: 05/18/23 06:19 05/18/23 06:19 Labs: Abnormal Lab Results - Last 24 Hours (Table) 05/16/23 05/18/23 05/18/23 Range/Units 07:27 06:19 06:19 WBC 12.61 H (4.50-10.00) X 10*3/uL RBC 3.20 L (4.10-5.20) X 10*6/uL Hgb 9.3 L (12.0-15.0) g/dL Hct 30.4 L (37.2-46.3) % MCHC 30.6 L (32.0-37.0) g/dL RDW 18.2 H (11.5-14.5) % MPV 9.3 L (9.5-12.2) FL Immature Gran # 0.05 H (0.00-0.04) X 10*3/uL Neutrophils # 10.13 H (1.80-7.70) X 10*3/uL Eosinophils # 0.03 L (0.04-0.35) X 10*3/uL Sodium 134 L (135-145) mmol/L Potassium 5.8 H (3.5-5.5) mmol/L Anion Gap 12.20 H (4.00-12.00) mmol/L Creatinine 7.5 A* (0.6-1.5) mg/dL Est GFR (CKD-EPI) 6 L (>=60) BUN/Creatinine Ratio 2.83 L (12.00-20.00) Ratio Glucose 154 H (70-110) mg/dL Calcium 8.5 L (8.7-10.3) mg/dL Crossmatch See Detail Assessment and Plan Time with Patient: Less than 30
--- NOTE | 2023-05-19 09:21 | P.PN ---
Subjective Progress Note Date: 05/19/23 Patient remained stable. She has no acute changes. Her abdomen is soft. Patient does have some complaints of incisional pain. On exam vital signs appear stable. Abdomen is soft. Status post exploratory laparotomy for drainage of abscess. Patient will receive supportive care. Objective - Vital Signs Vital signs: Vital Signs Temp 98.1 F 05/19/23 07:20 Pulse 56 L 05/19/23 08:14 Resp 17 05/19/23 07:20 BP 101/64 05/19/23 08:14 Pulse Ox 99 05/19/23 07:20 FiO2 Intake & Output 05/18/23 05/19/23 05/19/23 18:59 06:59 18:59 Intake Total 700 480 Balance 700 480 Intake: Intake, IV Titration 700 Amount D5-0.45% NaCl with KCl 600 20Meq/l 1,000 ml @ 75 mls /hr IV .[id number] VANESSA Rx#: [id number] Piperacillin-Tazobactam 3 100 .375 gm In Sodium Chloride 0.9% 100 ml @ 25 mls/hr IVPB Q12HR [facility]AN[facility] Rx #:[id number] Oral 480 - Labs CBC & Chem 7: 05/18/23 06:19 05/18/23 06:19 Labs: Abnormal Lab Results - Last 24 Hours (Table) 05/18/23 05/18/23 Range/Units 06:19 06:19 WBC 12.61 H (4.50-10.00) X 10*3/uL RBC 3.20 L (4.10-5.20) X 10*6/uL Hgb 9.3 L (12.0-15.0) g/dL Hct 30.4 L (37.2-46.3) % MCHC 30.6 L (32.0-37.0) g/dL RDW 18.2 H (11.5-14.5) % MPV 9.3 L (9.5-12.2) FL Immature Gran # 0.05 H (0.00-0.04) X 10*3/uL Neutrophils # 10.13 H (1.80-7.70) X 10*3/uL Eosinophils # 0.03 L (0.04-0.35) X 10*3/uL Sodium 134 L (135-145) mmol/L Potassium 5.8 H (3.5-5.5) mmol/L Anion Gap 12.20 H (4.00-12.00) mmol/L Creatinine 7.5 A* (0.6-1.5) mg/dL Est GFR (CKD-EPI) 6 L (>=60) BUN/Creatinine Ratio 2.83 L (12.00-20.00) Ratio Glucose 154 H (70-110) mg/dL Calcium 8.5 L (8.7-10.3) mg/dL Microbiology - Last 24 Hours (Table) 05/17/23 14:45 Gram Stain - Preliminary Other - Other Wound Culture - Preliminary
[2023-05-19 09:54] LABS: Basophils # (A) 0.08 X 10*3/uL (0.00-0.10); Basophils % (A) 0.6 %; Eosinophils # (A) 0.15 X 10*3/uL (0.04-0.35); Eosinophils % (A) 1.2 %; HCT 24.3 % (37.2-46.3); HGB 7.5 g/dL (12.0-15.0); Lymphocytes # (A) 1.03 X 10*3/uL (0.90-5.00); MCH 29.1 pg (27.0-32.0); MCHC 30.9 g/dL (32.0-37.0); MCV 94.2 FL (80.0-97.0); Mean Platelet Volume 9.5 FL (9.5-12.2); Monocytes # (A) 0.73 X 10*3/uL (0.20-1.00); Monocytes % (A) 5.7 %; NRBC Per 100 WBC 0 X 10*3/uL (0.00-0.01); Neutrophils # (A) 10.84 X 10*3/uL (1.80-7.70); Neutrophils % (A) 83.9 %; Platelet Count 205 X 10*3/uL (140-440); RBC 2.58 X 10*6/uL (4.10-5.20); RDW 18.3 % (11.5-14.5); WBC 12.91 X 10*3/uL (4.50-10.00)
[2023-05-19 11:01] LABS: BUN/Creat Ratio 3.21 Ratio (12.00-20.00); Blood Urea Nitrogen 31.8 mg/dL (9.0-27.0); Calcium 8.1 mg/dL (8.7-10.3); Chloride 96 mmol/L (96-109); Glucose 141 mg/dL (70-110); Potassium 5.3 mmol/L (3.5-5.5); Sodium 131 mmol/L (135-145)
--- NOTE | 2023-05-19 12:40 | P.PN ---
Subjective Progress Note Date: 05/19/23 Patient follow-up for ESRD. She states that she is doing well with improvement in her abdominal discomfort suggested. Planning for thrombectomy after hemodialysis tomorrow to fix AV graft. VS stable. HEENT: No JVD. HEART: regular rate and rhythm. Abdomen: soft, tender, abdominal dressing Ext: Trace edema. Objective - Vital Signs Vital signs: Vital Signs Temp 98.1 F 05/19/23 07:20 Pulse 56 L 05/19/23 08:14 Resp 17 05/19/23 07:20 BP 101/64 05/19/23 08:14 Pulse Ox 99 05/19/23 07:20 FiO2 Intake & Output 05/18/23 05/19/23 05/19/23 18:59 06:59 18:59 Intake Total 700 480 Balance 700 480 Intake: Intake, IV Titration 700 Amount D5-0.45% NaCl with KCl 600 20Meq/l 1,000 ml @ 75 mls /hr IV .[id number] VANESSA Rx#: [id number] Piperacillin-Tazobactam 3 100 .375 gm In Sodium Chloride 0.9% 100 ml @ 25 mls/hr IVPB Q12HR [facility] Rx #:[id number] Oral 480 - Labs CBC & Chem 7: 05/19/23 06:25 05/19/23 06:25 Labs: Abnormal Lab Results - Last 24 Hours (Table) 05/19/23 05/19/23 Range/Units 06:25 06:25 WBC 12.91 H (4.50-10.00) X 10*3/uL RBC 2.58 L (4.10-5.20) X 10*6/uL Hgb 7.5 L (12.0-15.0) g/dL Hct 24.3 L (37.2-46.3) % MCHC 30.9 L (32.0-37.0) g/dL RDW 18.3 H (11.5-14.5) % Immature Gran # 0.08 H (0.00-0.04) X 10*3/uL Neutrophils # 10.84 H (1.80-7.70) X 10*3/uL Sodium 131 L (135-145) mmol/L Carbon Dioxide 20.0 L (21.6-31.8) mmol/L Anion Gap 15.00 H (4.00-12.00) mmol/L BUN 31.8 H (9.0-27.0) mg/dL Creatinine 9.9 A* (0.6-1.5) mg/dL Est GFR (CKD-EPI) 5 L (>=60) BUN/Creatinine Ratio 3.21 L (12.00-20.00) Ratio Glucose 141 H (70-110) mg/dL Calcium 8.1 L (8.7-10.3) mg/dL Microbiology - Last 24 Hours (Table) 05/17/23 14:45 Gram Stain - Preliminary Other - Other Wound Culture - Preliminary Assessment and Plan Plan: Assessment: 1. End-stage renal disease maintained on hemodialysis on Saturday schedule. Access Left IJ Permcath, clotted left arm AVG. 2. Hypertension with chronic kidney disease. Stable. 3. Chronic kidney disease mineral bone disease- on Velphoro 4. Anemia of chronic kidney disease. On Aranesp. 5. History of perforated diverticulitis with pelvic abscess s/p colostomy. s/p Ex-lap with lysis of adhesions. 6. Hyperkalemia. Plan: Next HD Saturday, scheduled for first morning treatment Vascular plan for AVG thrombectomy on Saturday. Surgery following, no further surgical plans this visit. Continue antibiotics. Lokelma initially with improvement in potassium and further management with HD.
--- NOTE | 2023-05-19 16:25 | P.PN ---
Subjective Progress Note Date: 05/19/23 This is a pleasant 42-year-old female who was admitted under general surgery services Dr. Blackburn who had perforated diverticulitis with sepsis and a previous peritoneal dialysis catheter approximately 6 months ago and has been undergoing hemodialysis as there was concerns of spontaneous bacterial per itonitis. Patient is scheduled for colonoscopy evaluation and colostomy reversal. Patient follows with Dr. 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 Patient also has anxiety is a former smoker and occasionally uses marijuana from the past. Patient is currently n.p.o. awaiting to go colonoscopy and surgical intervention with colostomy removal today. Will await surgical report and continue to follow. Nephrology also consulted and will be receiving hemodialysis sometime today. 05/18/2023 Patient is evaluated today on the medical floor he was taken for surgery for possible colostomy reversal. This was unable to be completed due to the finding of bilateral pelvic sigmoid diverticular abscess which were drained as well as extensive lysis of adhesions and peritoneal lavage. Patient has Prevena wound VAC closure midline. She has not had any stool from the ostomy since surgery. She reports mild abdominal pain. Patient has a maturing fistula in the left arm felt that there was no thrill present which was confirmed by nursing and vascular services was consulted. Patient had a duplex ultrasound completed of the fistula to the left arm confirming a complete thrombosis and vascular is planning on taking the patient to the OR for this on Saturday. 05/19/2023 Patient is evaluated today on the medical floor. She continues to report mild abdominal discomfort she has not had any stool yet from the ostomy. Patient is scheduled to undergo open thrombectomy tomorrow for the thrombosis to the left fistula. She continues to be dialyzed through the right chest permacath and is scheduled to undergo hemodialysis tomorrow. White count today remains elevated at 12.91, hemoglobin of 7.9. Patient sodium level is 131, creatinine has increased up to 9.9. Her magnesium is normal. Hemodynamically she is stable. Review of Systems Constitutional: Denied any fatigue denied any fever. Cardio vascular: denied any chest pain, palpitations Gastrointestinal: denied any nausea, vomiting, diarrhea Pulmonary: Denied any shortness of breath cough Neurologic denied any new focal deficits All inpatient medications were reviewed and appropriate changes in these medications as dictated in the interval history and assessment and plan. PHYSICAL EXAMINATION: GENERAL: The patient is alert and oriented x3, not in any acute distress. Well developed, well nourished. Obese HEENT: Pupils are round and equally reacting to light. EOMI. No scleral icterus. No conjunctival pallor. Normocephalic, atraumatic. No pharyngeal erythema. No thyromegaly. CARDIOVASCULAR: S1 and S2 present. No murmurs, rubs, or gallops. PULMONARY: Chest is clear to auscultation, no wheezing or crackles. ABDOMEN: Soft, nontender, nondistended, normoactive bowel sounds. No palpable organomegaly. MUSCULOSKELETAL: No joint swelling or deformity. EXTREMITIES: No cyanosis, clubbing, or pedal edema. NEUROLOGICAL: Gross neurological examination did not reveal any focal deficits. SKIN: No rashes. Assessment: -History of perforated diverticulitis with end colostomy the plan for colostomy reversal has been aborted this admission due to multiple abscesses noted in the abdominal cavity. Patient is posoperative day #1 diagnostic laparotomy, lysis of adhesions, drainage of abscess. -Previous history of peritoneal dialysis with spontaneous bacterial peritonitis and catheter was removed undergoing hemodialysis -thrombosed loop graft to the left arm patient is scheduled to undergo open thro mbectomy tomorrow. -Hypertension -Renal disease with end-stage renal disease and maintained on hemodialysis Saturday/Saturday/Saturday -History of focal segmental glomerulosclerosis -History of diverticulitis and colitis -History of bleeding gastric ulcers -History of pseudotumor on the brain -History of anxiety -Former smoker Obesity with a BMI of 30.4 GI prophylaxis DVT prophylaxis Full code Plan: Patient is admitted under surgical services underwent drainage of abscess with prevana wound vac closure Nephrology following for recommendations regarding hemodialysis. Home medications reviewed and resumed as appropriate Vascular surgery consulted planning for open thrombectomy of the fistula to the left arm. We will continue to follow with general surgery during hospitalization. Thank you kindly for this consultation Recommend follow-up labs in the a.m. The impression and plan of care has been dictated by Roberta Miguel Nurse Practitioner as directed. Dr. Yuki MD I have performed a history and physical examination and medical decision making of this patient, discussed the same with the dictator, and agree with the dictators assessment and plan as written, documented as a scribe. Based on total visit time, I have performed more than 50% of this visit. Objective - Vital Signs Vital signs: Vital Signs Temp 98.1 F 05/19/23 07:20 Pulse 56 L 05/19/23 08:14 Resp 17 05/19/23 07:20 BP 101/64 05/19/23 08:14 Pulse Ox 99 05/19/23 07:20 FiO2 Intake & Output 05/18/23 05/19/23 05/19/23 18:59 06:59 18:59 Intake Total 700 480 Balance 700 480 Intake: Intake, IV Titration 700 Amount D5-0.45% NaCl with KCl 600 20Meq/l 1,000 ml @ 75 mls /hr IV .[id number] [facility] Rx#: [id number] Piperacillin-Tazobactam 3 100 .375 gm In Sodium Chloride 0.9% 100 ml @ 25 mls/hr IVPB Q12HR [facility] Rx #:[id number] Oral 480 - Labs CBC & Chem 7: 05/19/23 06:25 05/19/23 06:25 Labs: Abnormal Lab Results - Last 24 Hours (Table) 05/18/23 05/18/23 Range/Units 06:19 06:19 WBC 12.61 H (4.50-10.00) X 10*3/uL RBC 3.20 L (4.10-5.20) X 10*6/uL Hgb 9.3 L (12.0-15.0) g/dL Hct 30.4 L (37.2-46.3) % MCHC 30.6 L (32.0-37.0) g/dL RDW 18.2 H (11.5-14.5) % MPV 9.3 L (9.5-12.2) FL Immature Gran # 0.05 H (0.00-0.04) X 10*3/uL Neutrophils # 10.13 H (1.80-7.70) X 10*3/uL Eosinophils # 0.03 L (0.04-0.35) X 10*3/uL Sodium 134 L (135-145) mmol/L Potassium 5.8 H (3.5-5.5) mmol/L Anion Gap 12.20 H (4.00-12.00) mmol/L Creatinine 7.5 A* (0.6-1.5) mg/dL Est GFR (CKD-EPI) 6 L (>=60) BUN/Creatinine Ratio 2.83 L (12.00-20.00) Ratio Glucose 154 H (70-110) mg/dL Calcium 8.5 L (8.7-10.3) mg/dL Microbiology - Last 24 Hours (Table) 05/17/23 14:45 Gram Stain - Preliminary Other - Other Wound Culture - Preliminary Assessment and Plan Time with Patient: Less than 30
--- NOTE | 2023-05-19 22:40 | P.PN ---
Subjective Progress Note Date: 05/19/23 Principal diagnosis: Reason for follow-up is peridiverticular abscess and leukocytosis Patient is a 42-year-old female with a past medical history significant for hypertension seizure disorder end-stage renal disease on dialysis patient also have a complicated history of diverticulitis with perforation requiring diverting colostomy and also have a acute cholecystitis required cholecystotomy tube placement followed by cholecystectomy patient was electively admitted to the hospital for reversal of her colostomy however patient was noticed to have evidence of pelvic abscess in this patient was status post extensive lysis of adhesion and drainage of the diverticular abscess, infectious disease was consulted for management of antibiotic therapy. On today's evaluation that is 05/19/2023,the patient denies any fever or any chills, patient is breathing comfortably on room air, the patient denies chest pain shortness of breath and no significant cough, patient abdominal pain slightly decreased in intensity denies any nausea or vomiting. Patient white count is 12.91 creatinine is 9.9 cultures are currently pending Objective - Vital Signs Vital signs: Vital Signs Temp 98.1 F 05/19/23 07:20 Pulse 56 L 05/19/23 08:14 Resp 17 05/19/23 07:20 BP 101/64 05/19/23 08:14 Pulse Ox 99 05/19/23 07:20 FiO2 Intake & Output 05/18/23 05/19/23 05/19/23 18:59 06:59 18:59 Intake Total 700 480 Balance 700 480 Intake: Intake, IV Titration 700 Amount D5-0.45% NaCl with KCl 600 20Meq/l 1,000 ml @ 75 mls /hr IV .[id number] [facility]ANESSA Rx#: [id number] Piperacillin-Tazobactam 3 100 .375 gm In Sodium Chloride 0.9% 100 ml @ 25 mls/hr IVPB Q12HR [facility] Rx #:[id number] Oral 480 - Exam GENERAL DESCRIPTION: Middle-aged female lying in bed in no distress RESPIRATORY SYSTEM: Unlabored breathing , decreased breath sounds at bases HEART: S1 S2 regular rate and rhythm , ABDOMEN: Soft , no tenderness EXTREMITIES: No edema feet - Labs CBC & Chem 7: 05/19/23 06:25 05/19/23 06:25 Labs: Abnormal Lab Results - Last 24 Hours (Table) 05/18/23 05/19/23 05/19/23 Range/Units 06:19 06:25 06:25 WBC 12.91 H (4.50-10.00) X 10*3/uL RBC 2.58 L (4.10-5.20) X 10*6/uL Hgb 7.5 L (12.0-15.0) g/dL Hct 24.3 L (37.2-46.3) % MCHC 30.9 L (32.0-37.0) g/dL RDW 18.3 H (11.5-14.5) % Immature Gran # 0.08 H (0.00-0.04) X 10*3/uL Neutrophils # 10.84 H (1.80-7.70) X 10*3/uL Sodium 134 L 131 L (135-145) mmol/L Potassium 5.8 H (3.5-5.5) mmol/L Carbon Dioxide 20.0 L (21.6-31.8) mmol/L Anion Gap 12.20 H 15.00 H (4.00-12.00) mmol/L BUN 31.8 H (9.0-27.0) mg/dL Creatinine 7.5 A* 9.9 A* (0.6-1.5) mg/dL Est GFR (CKD-EPI) 6 L 5 L (>=60) BUN/Creatinine Ratio 2.83 L 3.21 L (12.00-20.00) Ratio Glucose 154 H 141 H (70-110) mg/dL Calcium 8.5 L 8.1 L (8.7-10.3) mg/dL Microbiology - Last 24 Hours (Table) 05/17/23 14:45 Gram Stain - Preliminary Other - Other Wound Culture - Preliminary Assessment and Plan (1) Diverticulitis of large intestine with complication Status: Acute Code(s): K57.32 - DVTRCLI OF LG INT W/O PERFORATION OR ABSCESS W/O BLEEDING SNOMED Code(s): 628200283 (2) Intra-abdominal abscess Status: Acute Code(s): K65.1 - PERITONEAL ABSCESS SNOMED Code(s): 69050108 Plan: 1patient with a complicated history of diverticulitis, peridiverticular abscess treated surgically in this patient who did have diabetic colostomy now admitted to the hospital for reversal of her diverting colostomy however the patient was noticed to have pelvic abscess in this patient who is status post lysis of adhes ions and drainage of the pelvic abscess cultures obtained which are currently pending we will need to cover for enteric gram-negative both aerobes and anaerobes 2-patient to continue with Zosyn 3.375 g every 12-hour while waiting for the culture to finalize Dictation was produced using [employer] dictation software. please excuse any grammatical, word or spelling errors. Time with Patient: Less than 30
[2023-05-20 09:03] LABS: Basophils # (A) 0.06 X 10*3/uL (0.00-0.10); Basophils % (A) 0.5 %; Eosinophils # (A) 0.22 X 10*3/uL (0.04-0.35); Eosinophils % (A) 1.8 %; HCT 23.6 % (37.2-46.3); HGB 7.3 g/dL (12.0-15.0); Lymphocytes # (A) 1.29 X 10*3/uL (0.90-5.00); Lymphocytes % (A) 10.6 %; MCH 29.4 pg (27.0-32.0); MCHC 30.9 g/dL (32.0-37.0); MCV 95.2 FL (80.0-97.0); Mean Platelet Volume 10.4 FL (9.5-12.2); Monocytes # (A) 0.54 X 10*3/uL (0.20-1.00); Monocytes % (A) 4.5 %; NRBC Per 100 WBC 0 X 10*3/uL (0.00-0.01); Neutrophils # (A) 9.95 X 10*3/uL (1.80-7.70); Platelet Count 205 X 10*3/uL (140-440); RBC 2.48 X 10*6/uL (4.10-5.20); RDW 18.5 % (11.5-14.5); WBC 12.13 X 10*3/uL (4.50-10.00)
--- NOTE | 2023-05-20 12:41 | P.PN ---
Subjective Progress Note Date: 05/20/23 Principal diagnosis: Reason for follow-up is peridiverticular abscess and leukocytosis Patient is a 42-year-old female with a past medical history significant for hypertension seizure disorder end-stage renal disease on dialysis patient also have a complicated history of diverticulitis with perforation requiring diverting colostomy and also have a acute cholecystitis required cholecystotomy tube placement followed by cholecystectomy patient was electively admitted to the hospital for reversal of her colostomy however patient was noticed to have evidence of pelvic abscess in this patient was status post extensive lysis of adhesion and drainage of the diverticular abscess, infectious disease was consulted for management of antibiotic therapy. On today's evaluation that is 05/20/2023,the patient remains to be afebrile, patient is on room air not requiring supplemental oxygen and denies any shortness of breath no chest pain or cough.Patient denies having any nausea or vomiting, abdominal pain has decreased in intensity no new symptoms. Patient white count is 12.13 abdominal cultures so far negative Objective - Vital Signs Vital signs: Vital Signs Temp 98.1 F 05/20/23 07:47 Pulse 57 L 05/20/23 07:47 Resp 17 05/20/23 07:47 BP 100/63 05/20/23 07:47 Pulse Ox 99 05/20/23 07:47 FiO2 Intake & Output 05/19/23 05/20/23 05/20/23 18:59 06:59 18:59 Intake Total 1000 420 Balance 1000 420 Intake: Intake, IV Titration 1000 Amount Dextrose 5%-0.45% NaCl 1, 900 000 ml @ 75 mls/hr IV . [id number] [facility] Rx#:[id number] Piperacillin-Tazobactam 3 100 .375 gm In Sodium Chloride 0.9% 100 ml @ 25 mls/hr IVPB Q12HR [facility] Rx #:[id number] Oral 420 - Exam GENERAL DESCRIPTION: Middle-aged female lying in bed in no distress RESPIRATORY SYSTEM: Unlabored breathing , decreased breath sounds at bases HEART: S1 S2 regular rate and rhythm , ABDOMEN: Soft , no tenderness EXTREMITIES: No edema feet - Labs CBC & Chem 7: 05/20/23 05:27 05/19/23 06:25 Labs: Abnormal Lab Results - Last 24 Hours (Table) 05/19/23 05/20/23 Range/Units 06:25 05:27 WBC 12.13 H (4.50-10.00) X 10*3/uL RBC 2.48 L (4.10-5.20) X 10*6/uL Hgb 7.3 L (12.0-15.0) g/dL Hct 23.6 L (37.2-46.3) % MCHC 30.9 L (32.0-37.0) g/dL RDW 18.5 H (11.5-14.5) % Immature Gran # 0.07 H (0.00-0.04) X 10*3/uL Neutrophils # 9.95 H (1.80-7.70) X 10*3/uL Sodium 131 L (135-145) mmol/L Carbon Dioxide 20.0 L (21.6-31.8) mmol/L Anion Gap 15.00 H (4.00-12.00) mmol/L BUN 31.8 H (9.0-27.0) mg/dL Creatinine 9.9 A* (0.6-1.5) mg/dL Est GFR (CKD-EPI) 5 L (>=60) BUN/Creatinine Ratio 3.21 L (12.00-20.00) Ratio Glucose 141 H (70-110) mg/dL Calcium 8.1 L (8.7-10.3) mg/dL Microbiology - Last 24 Hours (Table) 05/17/23 14:45 Gram Stain - Final Other - Other Wound Culture - Final Assessment and Plan (1) Diverticulitis of large intestine with complication Status: Acute Code(s): K57.32 - DVTRCLI OF LG INT W/O PERFORATION OR ABSCESS W/O BLEEDING SNOMED Code(s): 747228543 (2) Intra-abdominal abscess Status: Acute Code(s): K65.1 - PERITONEAL ABSCESS SNOMED Code(s): 15999443 Plan: 1patient with a complicated history of diverticulitis, peridiverticular abscess treated surgically in this patient who did have diabetic colostomy now admitted to the hospital for reversal of her diverting colostomy however the patient was noticed to have pelvic abscess in this patient who is status post lysis of adhesions and drainage of the pelvic abscess cultures obtained which are currently pending we will need to cover for enteric gram-negative both aerobes and anaerobes, cultures are so far negative 2-patient to continue with Zosyn 3.375 g every 12-hour while inpatient and monitor clinical course closely Dictation was produced using [employer] dictation software. please excuse any grammatical, word or spelling errors. Time with Patient: Less than 30
[2023-05-20] MEDS: GELATIN SPONGE,ABSORB (LARGE) 1 EACH SPONGE TOPICAL ONE ×2 (13:00→14:18)
[2023-05-20] MEDS: THROMBIN (BOVINE) 5,000 UNIT VIAL TOPICAL ONE ×2 (13:00→14:18)
[2023-05-20] MEDS: IV FLUID CONTINUATION 500 ML IV ONE (13:15)
[2023-05-20] MEDS: LACTATED RINGERS 1,000 ML IV ONE (13:26)
--- NOTE | 2023-05-20 13:33 | P.PN ---
Subjective Patient is seen for follow-up for end-stage renal disease. Currently seen on hemodialysis Tolerating treatment well. Objective - Vital Signs Vital signs: Vital Signs Temp 98.1 F 05/20/23 07:47 Pulse 57 L 05/20/23 07:47 Resp 17 05/20/23 07:47 BP 100/63 05/20/23 07:47 Pulse Ox 99 05/20/23 07:47 FiO2 Intake & Output 05/19/23 05/20/23 05/20/23 18:59 06:59 18:59 Intake Total 1000 420 Balance 1000 420 Intake: Intake, IV Titration 1000 Amount Dextrose 5%-0.45% NaCl 1, 900 000 ml @ 75 mls/hr IV . [id number] [facility] Rx#:[id number] Piperacillin-Tazobactam 3 100 .375 gm In Sodium Chloride 0.9% 100 ml @ 25 mls/hr IVPB Q12HR [facility] Rx #:[id number] Oral 420 Other: Voiding Method Toilet - Exam Patient is awake, comfortable, no acute distress Examination of the heart S1 and S2 Examination of the lungs bilateral breath sounds are heard Abdomen is soft mild tenderness noted, colostomy Examination of lower extremities shows no significant edema DATA REVIEWER exam grossly intact - Labs CBC & Chem 7: 05/20/23 05:27 05/19/23 06:25 Labs: Abnormal Lab Results - Last 24 Hours (Table) 05/20/23 Range/Units 05:27 WBC 12.13 H (4.50-10.00) X 10*3/uL RBC 2.48 L (4.10-5.20) X 10*6/uL Hgb 7.3 L (12.0-15.0) g/dL Hct 23.6 L (37.2-46.3) % MCHC 30.9 L (32.0-37.0) g/dL RDW 18.5 H (11.5-14.5) % Immature Gran # 0.07 H (0.00-0.04) X 10*3/uL Neutrophils # 9.95 H (1.80-7.70) X 10*3/uL Microbiology - Last 24 Hours (Table) 05/17/23 14:45 Gram Stain - Final Other - Other Wound Culture - Final Assessment and Plan Assessment: 1. End-stage renal disease maintained on hemodialysis on Saturday schedule. Access Left IJ Permcath, clotted left arm AVG. 2. Hypertension with chronic kidney disease. Stable. 3. Chronic kidney disease mineral bone disease- on Velphoro 4. Anemia of chronic kidney disease. On Aranesp. 5. History of perforated diverticulitis with pelvic abscess s/p colostomy. s/p Ex-lap with lysis of adhesions. Plans for reversal of colostomy currently on hold due to severe adhesions and infection. 6. Hyperkalemia. Plan: Maintain hemodialysis on Saturday schedule.
[2023-05-20] MEDS ORDERED: ROCURONIUM 10 MG/ML (5 ML VIAL) IV ONE (13:38)
[2023-05-20] MEDS ORDERED: GLYCOPYRROLATE 0.2 MG/ML 2 ML VIAL ONE (13:38)
[2023-05-20] MEDS ORDERED: fentaNYL (PF) 50 MCG/ML 2 ML AMP ONE (13:38)
[2023-05-20] MEDS ORDERED: NEOSTIGMINE 1 MG/ML 10 ML VIAL ONE (13:38)
[2023-05-20] MEDS ORDERED: MIDAZOLAM 2 MG/2 ML VIAL ONE (13:38)
[2023-05-20] MEDS ORDERED: LIDOCAINE 1% INJ 10MG/ML (20 ML MDV) ONE (13:38)
[2023-05-20] MEDS ORDERED: PHENYLEPHRINE-0.9% NACL SYG 1,000 MCG/10 ML SYRINGE ONE (13:38)
[2023-05-20] MEDS ORDERED: HEPARIN SODIUM,PORCINE 10,000 UNIT/ML 1 ML VIAL ONE (13:38)
[2023-05-20] MEDS ORDERED: PROPOFOL 10 MG/ML 20 ML VIAL IV ONE (13:38)
[2023-05-20] MEDS ORDERED: HYDROmorphone (PF) 1 MG/ML ONE (13:38)
[2023-05-20] MEDS: PIPERACILLIN-TAZOBACTAM 3.375 GM in SODIUM CHLORIDE 0.9% 100 ML IVPB SCH (14:18)
[2023-05-20] MEDS: ceFAZolin 1,000 MG in SODIUM CHLORIDE 0.9% 1,000 ML IRRIGATION ONE (14:20)
[2023-05-20] MEDS: HEPARIN SODIUM (1,000 UNIT/ML) 2,000 UNIT in SODIUM CHLORIDE 0.9% 1,000 ML IRRIGATION ONE (14:21)
--- NOTE | 2023-05-20 15:07 | P.PN ---
Subjective Progress Note Date: 05/20/23 This is a pleasant 42-year-old female who was admitted under general surgery services Dr. Blackburn who had perforated diverticulitis with sepsis and a previous peritoneal dialysis catheter approximately 6 months ago and has been undergoing hemodialysis as there was concerns of spontaneous bacterial per itonitis. Patient is scheduled for colonoscopy evaluation and colostomy reversal. Patient follows with Dr. 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 Patient also has anxiety is a former smoker and occasionally uses marijuana from the past. Patient is currently n.p.o. awaiting to go colonoscopy and surgical intervention with colostomy removal today. Will await surgical report and continue to follow. Nephrology also consulted and will be receiving hemodialysis sometime today. 05/18/2023 Patient is evaluated today on the medical floor he was taken for surgery for possible colostomy reversal. This was unable to be completed due to the finding of bilateral pelvic sigmoid diverticular abscess which were drained as well as extensive lysis of adhesions and peritoneal lavage. Patient has Prevena wound VAC closure midline. She has not had any stool from the ostomy since surgery. She reports mild abdominal pain. Patient has a maturing fistula in the left arm felt that there was no thrill present which was confirmed by nursing and vascular services was consulted. Patient had a duplex ultrasound completed of the fistula to the left arm confirming a complete thrombosis and vascular is planning on taking the patient to the OR for this on Saturday. 05/19/2023 Patient is evaluated today on the medical floor. She continues to report mild abdominal discomfort she has not had any stool yet from the ostomy. Patient is scheduled to undergo open thrombectomy tomorrow for the thrombosis to the left fistula. She continues to be dialyzed through the right chest permacath and is scheduled to undergo hemodialysis tomorrow. White count today remains elevated at 12.91, hemoglobin of 7.9. Patient sodium level is 131, creatinine has increased up to 9.9. Her magnesium is normal. Hemodynamically she is stable. 05/20/2023 Patient is seen in follow-up currently n.p.o. scheduled to undergo thrombectomy with vascular surgery for left fistula thrombosis. Patient continued on antibiotics with multiple medical consultations following admitted to general surgery services. Patient currently being taken down to preop for thrombectomy with vascular surgery and will await report. Awaiting finalized cultures to determine discharge antibiotics as well status post multiple abscesses noted in the abdomen. Ostomy reversal was canceled and patient will follow and continue with general surgery outpatient. She is currently afebrile reports some improvement in abdominal discomfort and is scheduled to receive hemodialysis again today. Nephrology is following. Review of Systems Constitutional: Denied any fatigue denied any fever. Cardio vascular: denied any chest pain, palpitations Gastrointestinal: denied any nausea, vomiting, diarrhea Pulmonary: Denied any shortness of breath cough Neurologic denied any new focal deficits All inpatient medications were reviewed and appropriate changes in these medications as dictated in the interval history and assessment and plan. PHYSICAL EXAMINATION: GENERAL: The patient is alert and oriented x3, not in any acute distress. Well developed, well nourished. Obese HEENT: Pupils are round and equally reacting to light. EOMI. No scleral icterus. No conjunctival pallor. Normocephalic, atraumatic. No pharyngeal erythema. No thyromegaly. CARDIOVASCULAR: S1 and S2 present. No murmurs, rubs, or gallops. PULMONARY: Chest is clear to auscultation, no wheezing or crackles. ABDOMEN: Soft, nontender, nondistended, normoactive bowel sounds. No palpable organomegaly. MUSCULOSKELETAL: No joint swelling or deformity. EXTREMITIES: No cyanosis, clubbing, or pedal edema. NEUROLOGICAL: Gross neurological examination did not reveal any focal deficits. SKIN: No rashes. Assessment: -History of perforated diverticulitis with end colostomy the plan for colostomy reversal has been aborted this admission due to multiple abscesses noted in the abdominal cavity. Patient is posoperative day #2 diagnostic laparotomy, lysis of adhesions, drainage of abscess. -Previous history of peritoneal dialysis with spontaneous bacterial peritonitis and catheter was removed undergoing hemodialysis -thrombosed loop graft to the left arm patient is scheduled to undergo open thrombectomy today -Hypertension -Renal disease with end-stage renal disease and maintained on hemodialysis Saturday/Saturday/Saturday -History of focal segmental glomerulosclerosis -History of diverticulitis and colitis -History of bleeding gastric ulcers -History of pseudotumor on the brain -History of anxiety -Former smoker Obesity with a BMI of 30.4 GI prophylaxis DVT prophylaxis Full code Plan: Patient is admitted under surgical services underwent drainage of abscess with prevana wound vac closure. Patient was scheduled for colostomy reversal which was aborted as there was multiple abscesses noted. Nephrology following for recommendations regarding hemodialysis. Patient does have a continued permacath which is being used Home medications reviewed and resumed as appropriate Vascular surgery following planning for open thrombectomy of the fistula to the left arm today. We will continue to follow with general surgery during hospitalization. Thank you kindly for this consultation Recommend follow-up labs in the a.m. The impression and plan of care has been dictated by Loly Edgar, Nurse Practitioner as directed. Dr. Yuki MD I have performed a history and physical examination and medical decision making of this patient, discussed the same with the dictator, and agree with the dictators assessment and plan as written, documented as a scribe. Based on total visit time, I have performed more than 50% of this visit. Objective - Vital Signs Vital signs: Vital Signs Temp 98.1 F 05/20/23 07:47 Pulse 57 L 05/20/23 07:47 Resp 17 05/20/23 07:47 BP 100/63 05/20/23 07:47 Pulse Ox 99 05/20/23 07:47 FiO2 Intake & Output 05/19/23 05/20/23 05/20/23 18:59 06:59 18:59 Intake Total 1000 420 Balance 1000 420 Intake: Intake, IV Titration 1000 Amount Dextrose 5%-0.45% NaCl 1, 900 000 ml @ 75 mls/hr IV . [id number] [facility] Rx#:[id number] Piperacillin-Tazobactam 3 100 .375 gm In Sodium Chloride 0.9% 100 ml @ 25 mls/hr IVPB Q12HR [facility] Rx #:[id number] Oral 420 - Labs CBC & Chem 7: 05/20/23 05:27 05/19/23 06:25 Labs: Abnormal Lab Results - Last 24 Hours (Table) 05/20/23 Range/Units 05:27 WBC 12.13 H (4.50-10.00) X 10*3/uL RBC 2.48 L (4.10-5.20) X 10*6/uL Hgb 7.3 L (12.0-15.0) g/dL Hct 23.6 L (37.2-46.3) % MCHC 30.9 L (32.0-37.0) g/dL RDW 18.5 H (11.5-14.5) % Immature Gran # 0.07 H (0.00-0.04) X 10*3/uL Neutrophils # 9.95 H (1.80-7.70) X 10*3/uL Microbiology - Last 24 Hours (Table) 05/17/23 14:45 Gram Stain - Final Other - Other Wound Culture - Final
[2023-05-20] MEDS: HYDROmorphone 0.5 MG/0.5 ML SYRINGE IVP ONE ×3 (15:17→15:59)
--- NOTE | 2023-05-20 15:19 | P.PN ---
Subjective Progress Note Date: 05/20/23 CHIEF COMPLAINT: Diverticulitis HISTORY OF PRESENT ILLNESS: Open colostomy reversal aborted. Patient is postop day #3 status post diagnostic laparoscopy with open extensive lysis of adhesions and drainage of bilateral pelvic sigmoid diverticular abscess with peritoneal lavage. Patient reports her pain is controlled. She is receiving hemodialysis. Patient has a thrombosed left upper extremity loop forearm graft and is scheduled for open thrombectomy with vascular surgery today. WBC 12.13 HGb 7.3 PHYSICAL EXAM: VITAL SIGNS: Reviewed GENERAL: Well-developed in no acute distress. HEENT: No sclera icterus. Extraocular movements grossly intact. Moist buccal mucosa. Head is atraumatic, normocephalic. Hears conversational speech. No nasal drainage. NECK: Supple without lymphadenopathy. CHEST: Non-labored respirations and equal bilateral excursions. CARDIOVASCULAR: Palpable 2+ radial pulses. ABDOMEN: Soft. Ostomy functioning. Pre-Nicky wound VAC intact MUSCULOSKELETAL: No clubbing or cyanosis. NEUROLOGIC: No focal or lateralizing signs. Cranial nerves II through XII grossly intact. PSYCH: Appropriate affect. Alert and oriented to person, place and time. SKIN: Well perfused. Good skin turgor. ASSESSMENT: 1. Chronic sigmoid diverticulitis with colon perforation with descending colostomy 2. Localized diverticular pelvic abscess 3. Peritoneal adhesions 4. History of fecal peritonitis with sepsis 5. End-stage renal disease, dialysis dependent 6. Chronic anemia 7. Hypertensive heart disease 8. Obesity due to excess calories, BMI 30.4 9. History of GI bleed 10. Severe pelvic phlegmon from diverticular abscess PLAN: -Patient scheduled for procedure today for thrombosed left upper extremity loop forearm graft with vascular surgery service -Continue supportive care -Continue pain management -Continue renal diet after procedure Physician Freight Receiver note has been reviewed by physician. Signing provider agrees with the documented findings, assessment, and plan of care. Objective - Vital Signs Vital signs: Vital Signs Temp 98.1 F 05/20/23 07:47 Pulse 57 L 05/20/23 07:47 Resp 17 05/20/23 07:47 BP 100/63 05/20/23 07:47 Pulse Ox 99 05/20/23 07:47 FiO2 Intake & Output 05/19/23 05/20/23 05/20/23 18:59 06:59 18:59 Intake Total 1000 420 Balance 1000 420 Intake: Intake, IV Titration 1000 Amount Dextrose 5%-0.45% NaCl 1, 900 000 ml @ 75 mls/hr IV . [id number] [facility] Rx#:[id number] Piperacillin-Tazobactam 3 100 .375 gm In Sodium Chloride 0.9% 100 ml @ 25 mls/hr IVPB Q12HR [facility] Rx #:[id number] Oral 420 - Labs CBC & Chem 7: 05/20/23 05:27 05/19/23 06:25 Labs: Abnormal Lab Results - Last 24 Hours (Table) 05/20/23 Range/Units 05:27 WBC 12.13 H (4.50-10.00) X 10*3/uL RBC 2.48 L (4.10-5.20) X 10*6/uL Hgb 7.3 L (12.0-15.0) g/dL Hct 23.6 L (37.2-46.3) % MCHC 30.9 L (32.0-37.0) g/dL RDW 18.5 H (11.5-14.5) % Immature Gran # 0.07 H (0.00-0.04) X 10*3/uL Neutrophils # 9.95 H (1.80-7.70) X 10*3/uL Microbiology - Last 24 Hours (Table) 05/17/23 14:45 Gram Stain - Final Other - Other Wound Culture - Final
--- NOTE | 2023-05-20 16:29 | P.OP ---
Date of Procedure: 05/20/23 Preoperative Diagnosis: Thrombosed left upper extremity loop AVG Postoperative Diagnosis: Same Procedure(s) Performed: Open thrombectomy of left upper extremity loop AVG Anesthesia: SHEBAA Surgeon: Vazquez Rodriguez Estimated Blood Loss (ml): 100 Pathology: none sent Condition: stable Disposition: PACU Indications for Procedure: 42 year old female with history of ESRD on HD with previous left upper extremity loop AVG presents to the OR for open thrombectomy after her upper extremity AVG thrombosed. She underwent abdominal surgery 2 and 1/2 weeks after the loop AVG and found after the surgery the graft had thrombosed likely due to hypotension during the surgery. Description of Procedure: After written and informed consent was obtained from the patient and all risks, benefits and complications were described the patient was brought to the operati ve suite and laid in supine position with her left arm on an armboard. Timeout was performed in usual fashion and patient was given antibiotics prior to incision. A small incision was created at the mid forearm over the previous incision and dissection was carried down to the graft. The graft was encircled proximally and distally with vessel loops. A transverse graftotomy was created and using a number 4 Ariel thrombectomy was performed of the outflow and then inflow with large amount of thrombus removed. After thrombectomy good brisk back bleeding was noted from the venous aspect and pulsatile bleeding from the inflow. Both sides were heparinized and the graftotomy was closed with 6-0 Prolene suture and control was released revealing good thrill and augmentation of the graft. The incision was then irrigated with antibiotic solution and skin was closed in a multilayer fashion. The patient tolerated the procedure well and was sent to PACU for recovery.
[2023-05-20] MEDS: cloNIDine HCL 0.1 MG TAB PO SCH (21:50)
--- NOTE | 2023-05-21 11:57 | P.PN ---
Subjective Progress Note Date: 05/21/23 Principal diagnosis: Thrombosed left upper extremity loop graft Patient is seen and examined today as a follow-up for left upper extremity loop forearm graft. Yesterday she underwent open thrombectomy of the left upper extremity loop AVG. She is without any complaints. No pain in the left upper extremity, dialysis per tunnel catheter at this time. Objective - Vital Signs Vital signs: Vital Signs Temp 97.7 F 05/21/23 09:52 Pulse 60 05/21/23 09:52 Resp 16 05/21/23 09:52 BP 118/72 05/21/23 09:52 Pulse Ox 99 05/21/23 09:52 FiO2 Intake & Output 05/20/23 05/21/23 05/21/23 18:59 06:59 18:59 Intake Total 702 20 128 Output Total 2600 Balance -1898 20 128 Weight 80.4 kg Intake: IV 302 20 10 Invasive Line 1 20 10 Oral 118 Hemodialysis 400 Output: Hemodialysis 2500 Estimated Blood Loss 100 Other: Voiding Method Toilet Toilet # Voids 0 # Bowel Movements 0 - Exam General appearance: The patient is alert, oriented, appears in no acute distress. HET: Head is normocephalic and atraumatic. Pupils are equal and reactive. Neck: Supple. Heart: Regular. Lungs: Equal expansion, normal respiratory effort. Abdomen: Soft, nondistended. Extremities: Normal skin color and turgor. Left forearm palpable thrill, incision well-approximated. Neurological: No focal deficits.. - Labs CBC & Chem 7: 05/20/23 05:27 05/19/23 06:25 Labs: Microbiology - Last 24 Hours (Table) 05/17/23 14:45 Anaerobic Culture - Preliminary Other - Other 05/17/23 14:45 Gram Stain - Final Other - Other Wound Culture - Final Assessment and Plan Assessment: 1. End-stage renal disease requiring hemodialysis 2. Thrombosed left upper loop extremity AV graft status post open thrombectomy 3. History of perforated diverticulitis and sepsis status post Brandon's procedure 4. Postop attempted/aborted reversal colostomy due to intra-abdominal abscess/adhesions Plan: 1. Continue hemodialysis as recommended per nephrology from tunneled dialysis catheter 2. Follow-up with Dr. Rodriguez in 2 weeks 3. Patient is cleared from vascular surgery for discharge. We will sign off at this time. The impression and plan of care has been dictated as directed. I performed a history and examination of this patient, discussed the same with the dictator. I agree with the dictator's note ,documented as a scribe. Any additional findings or plans will be noted.
[2023-05-21 12:26] LABS: Anisocytosis Slight; Basophils # (A) 0.1 k/uL (0-0.2); Basophils % (A) 1 %; Eosinophils # (A) 0.2 k/uL (0-0.7); Eosinophils % (A) 2 %; HCT 22.3 % (34.0-46.0); Hypochromasia Moderate; Lymphocytes # (A) 1.1 k/uL (1.0-4.8); Lymphocytes % (A) 12 %; MCHC 31.8 g/dL (31.0-37.0); MCV 94.5 fL (80.0-100.0); Macrocytosis Slight; Mean Platelet Volume 8.7; Monocytes # (A) 0.4 k/uL (0-1.0); Monocytes % (A) 4 %; Neutrophils # (A) 7.1 k/uL (1.3-7.7); Neutrophils % (A) 80 %; Platelet Count 187 k/uL (150-450); RBC 2.36 m/uL (3.80-5.40); RDW 18.4 % (11.5-15.5)
[2023-05-21 12:31] LABS: HGB 7.1 gm/dL (11.4-16.0)
[2023-05-21 13:20] LABS: African American GFR (CKD) 7 (>60 ml/min/1.73 sqM); Anion Gap 10 mmol/L; Blood Urea Nitrogen 29 mg/dL (7-17); Calcium 7.8 mg/dL (8.4-10.2); Carbon Dioxide 23 mmol/L (22-30); Chloride 99 mmol/L (98-107); Glucose 118 mg/dL (74-99); Non-African American GFR(CKD) 6 (>60 ml/min/1.73 sqM); Potassium 3.8 mmol/L (3.5-5.1); Sodium 132 mmol/L (137-145)
--- NOTE | 2023-05-21 13:25 | P.PN ---
Subjective Progress Note Date: 05/21/23 Principal diagnosis: Reason for follow-up is peridiverticular abscess and leukocytosis Patient is a 42-year-old female with a past medical history significant for hypertension seizure disorder end-stage renal disease on dialysis patient also have a complicated history of diverticulitis with perforation requiring diverting colostomy and also have a acute cholecystitis required cholecystotomy tube placement followed by cholecystectomy patient was electively admitted to the hospital for reversal of her colostomy however patient was noticed to have evidence of pelvic abscess in this patient was status post extensive lysis of adhesion and drainage of the diverticular abscess, infectious disease was consulted for management of antibiotic therapy. On today's evaluation that is 05/21/2023, the patient continues to be afebrile, the patient is on room air and breathing comfortably, The patient denies having any chest pain or cough, the patient abdominal pain has decreased in intensity no vomiting or any diarrhea has been reported by the nursing staff Patient white count normal at 9.0 abdominal cultures so far negative Objective - Vital Signs Vital signs: Vital Signs Temp 97.7 F 05/21/23 09:52 Pulse 60 05/21/23 09:52 Resp 16 05/21/23 09:52 BP 118/72 05/21/23 09:52 Pulse Ox 99 05/21/23 09:52 FiO2 Intake & Output 05/20/23 05/21/23 05/21/23 18:59 06:59 18:59 Intake Total 702 20 118 Output Total 2600 Balance -1898 20 118 Weight 80.4 kg Intake: IV 302 20 Invasive Line 1 20 Oral 118 Hemodialysis 400 Output: Hemodialysis 2500 Estimated Blood Loss 100 Other: Voiding Method Toilet # Voids 0 # Bowel Movements 0 - Exam GENERAL DESCRIPTION: Middle-aged female lying in bed in no distress RESPIRATORY SYSTEM: Unlabored breathing , decreased breath sounds at bases HEART: S1 S2 regular rate and rhythm , ABDOMEN: Soft , no tenderness EXTREMITIES: No edema feet - Labs CBC & Chem 7: 05/21/23 11:55 05/19/23 06:25 Labs: Microbiology - Last 24 Hours (Table) 05/17/23 14:45 Anaerobic Culture - Preliminary Other - Other 05/17/23 14:45 Gram Stain - Final Other - Other Wound Culture - Final Assessment and Plan (1) Diverticulitis of large intestine with complication Current Visit: No Status: Acute Code(s): K57.32 - DVTRCLI OF LG INT W/O PERFORATION OR ABSCESS W/O BLEEDING SNOMED Code(s): 068997290 (2) Intra-abdominal abscess Current Visit: No Status: Acute Code(s): K65.1 - PERITONEAL ABSCESS SNOMED Code(s): 66703014 Plan: 1patient with a complicated history of diverticulitis, peridiverticular abscess treated surgically in this patient who did have diabetic colostomy now admitted to the hospital for reversal of her diverting colostomy however the patient was noticed to have pelvic abscess in this patient who is status post lysis of adhesions and drainage of the pelvic abscess cultures obtained which are currently pending we will need to cover for enteric gram-negative both aerobes and anaerobes, cultures are so far negative 2-patient is afebrile the patient white count has normalized, patient to continue with Zosyn 3.375 g every 12-hour while inpatient Mother at the bedside questions answered Dictation was produced using [employer] dictation software. please excuse any grammatical, word or spelling errors. Time with Patient: Less than 30
--- NOTE | 2023-05-21 16:16 | P.PN ---
Subjective Progress Note Date: 05/21/23 CHIEF COMPLAINT: Diverticulitis HISTORY OF PRESENT ILLNESS: Open colostomy reversal aborted. Patient is postop day #3 status post diagnostic laparoscopy with open extensive lysis of adhesions and drainage of bilateral pelvic sigmoid diverticular abscess with peritoneal lavage. Patient reports her pain is controlled. Ostomy is functioning. She is status post open thrombectomy of the left upper extremity loop AVG with cardiovascular surgery. Afebrile. WBC is down to 9 Hgb 7.1 platelets 187 sodium is 132 potassium 3.8 cultures pending PHYSICAL EXAM: VITAL SIGNS: Reviewed GENERAL: Well-developed in no acute distress. HEENT: No sclera icterus. Extraocular movements grossly intact. Moist buccal mucosa. Head is atraumatic, normocephalic. Hears conversational speech. No nasal drainage. NECK: Supple without lymphadenopathy. CHEST: Non-labored respirations and equal bilateral excursions. CARDIOVASCULAR: Palpable 2+ radial pulses. ABDOMEN: Soft. Ostomy functioning. Pre-Nicky wound VAC intact MUSCULOSKELETAL: No clubbing or cyanosis. NEUROLOGIC: No focal or lateralizing signs. Cranial nerves II through XII grossly intact. PSYCH: Appropriate affect. Alert and oriented to person, place and time. SKIN: Well perfused. Good skin turgor. ASSESSMENT: 1. Chronic sigmoid diverticulitis with colon perforation with descending colostomy 2. Localized diverticular pelvic abscess 3. Peritoneal adhesions 4. History of fecal peritonitis with sepsis 5. End-stage renal disease, dialysis dependent 6. Chronic anemia 7. Hypertensive heart disease 8. Obesity due to excess calories, BMI 30.4 9. History of GI bleed 10. Severe pelvic phlegmon from diverticular abscess PLAN: -Continue renal diet -Left message with case sealer to arrange for lifetime supply of colostomy bags -Discharge antibiotic recommendations per infectious disease -Continue supportive care -Continue pain management Physician Tumbler Dyeing Machine Operator note has been reviewed by physician. Signing provider agrees with the documented findings, assessment, and plan of care. Objective - Vital Signs Vital signs: Vital Signs Temp 98.0 F 05/21/23 12:35 Pulse 60 05/21/23 12:35 Resp 16 05/21/23 12:35 BP 143/78 05/21/23 12:35 Pulse Ox 97 05/21/23 12:35 FiO2 Intake & Output 02/19/24 02/20/24 02/20/24 18:59 06:59 18:59 Intake Total 702 20 128 Output Total 2600 Balance -1898 20 128 Weight 80.4 kg Intake: IV 302 20 10 Invasive Line 1 20 10 Oral 118 Hemodialysis 400 Output: Hemodialysis 2500 Estimated Blood Loss 100 Other: Voiding Method Toilet Toilet # Voids 0 # Bowel Movements 0 - Labs CBC & Chem 7: 05/21/23 11:55 05/21/23 11:55 Labs: Abnormal Lab Results - Last 24 Hours (Table) 05/21/23 Range/Units 11:55 RBC 2.36 L (3.80-5.40) m/uL Hgb 7.1 L D (11.4-16.0) gm/dL Hct 22.3 L (34.0-46.0) % RDW 18.4 H (11.5-15.5) % Microbiology - Last 24 Hours (Table) 05/17/23 14:45 Anaerobic Culture - Preliminary Other - Other 05/17/23 14:45 Gram Stain - Final Other - Other Wound Culture - Final
--- NOTE | 2023-05-21 17:12 | P.PN ---
Subjective Patient is seen for follow-up for end-stage renal disease. Tolerated hemodialysis well yesterday. No significant complaints today. Objective - Vital Signs Vital signs: Vital Signs Temp 97.4 F L 05/21/23 16:00 Pulse 68 05/21/23 16:00 Resp 14 05/21/23 16:00 BP 146/86 05/21/23 16:00 Pulse Ox 97 05/21/23 16:00 FiO2 Intake & Output 05/20/23 05/21/23 05/21/23 18:59 06:59 18:59 Intake Total 702 20 256 Output Total 2600 100 Balance -1898 20 156 Weight 80.4 kg Intake: IV 302 20 20 Invasive Line 1 20 20 Oral 236 Hemodialysis 400 Output: Stool 100 Hemodialysis 2500 Estimated Blood Loss 100 Other: Voiding Method Toilet Toilet # Voids 0 # Bowel Movements 0 - Exam Patient is awake, comfortable, no acute distress Examination of the heart S1 and S2 Examination of the lungs bilateral breath sounds are heard Abdomen is soft mild tenderness noted, colostomy Examination of lower extremities shows no significant edema 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 OF LAW exam grossly intact - Labs CBC & Chem 7: 05/21/23 11:55 05/21/23 11:55 Labs: Abnormal Lab Results - Last 24 Hours (Table) 05/21/23 05/21/23 Range/Units 11:55 11:55 RBC 2.36 L (3.80-5.40) m/uL Hgb 7.1 L D (11.4-16.0) gm/dL Hct 22.3 L (34.0-46.0) % RDW 18.4 H (11.5-15.5) % Sodium 132 L (137-145) mmol/L BUN 29 H (7-17) mg/dL Creatinine 7.94 H* (0.52-1.04) mg/dL Glucose 118 H (74-99) mg/dL Calcium 7.8 L (8.4-10.2) mg/dL Microbiology - Last 24 Hours (Table) 05/17/23 14:45 Anaerobic Culture - Preliminary Other - Other Assessment and Plan Assessment: 1. End-stage renal disease maintained on hemodialysis on Saturday schedule. Access Left IJ Permcath, clotted left arm AVG. 2. Hypertension with chronic kidney disease. Stable. 3. Chronic kidney disease mineral bone disease- on Velphoro 4. Anemia of chronic kidney disease. On Aranesp. 5. History of perforated diverticulitis with pelvic abscess s/p colostomy. s/p Ex-lap with lysis of adhesions. Plans for reversal of colostomy currently on hold due to severe adhesions and infection. 6. Hyperkalemia, improved. Plan: Maintain hemodialysis on Saturday schedule. DC IV fluids
--- NOTE | 2023-05-22 06:35 | P.PN ---
Subjective Progress Note Date: 05/21/23 This is a pleasant 42-year-old female who was admitted under general surgery services Dr. Blackburn who had perforated diverticulitis with sepsis and a previous peritoneal dialysis catheter approximately 6 months ago and has been undergoing hemodialysis as there was concerns of spontaneous bacterial per itonitis. Patient is scheduled for colonoscopy evaluation and colostomy reversal. Patient follows with Dr. 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 Patient also has anxiety is a former smoker and occasionally uses marijuana from the past. Patient is currently n.p.o. awaiting to go colonoscopy and surgical intervention with colostomy removal today. Will await surgical report and continue to follow. Nephrology also consulted and will be receiving hemodialysis sometime today. 05/18/2023 Patient is evaluated today on the medical floor he was taken for surgery for possible colostomy reversal. This was unable to be completed due to the finding of bilateral pelvic sigmoid diverticular abscess which were drained as well as extensive lysis of adhesions and peritoneal lavage. Patient has Prevena wound VAC closure midline. She has not had any stool from the ostomy since surgery. She reports mild abdominal pain. Patient has a maturing fistula in the left arm felt that there was no thrill present which was confirmed by nursing and vascular services was consulted. Patient had a duplex ultrasound completed of the fistula to the left arm confirming a complete thrombosis and vascular is planning on taking the patient to the OR for this on Saturday. 05/19/2023 Patient is evaluated today on the medical floor. She continues to report mild abdominal discomfort she has not had any stool yet from the ostomy. Patient is scheduled to undergo open thrombectomy tomorrow for the thrombosis to the left fistula. She continues to be dialyzed through the right chest permacath and is scheduled to undergo hemodialysis tomorrow. White count today remains elevated at 12.91, hemoglobin of 7.9. Patient sodium level is 131, creatinine has increased up to 9.9. Her magnesium is normal. Hemodynamically she is stable. 05/20/2023 Patient is seen in follow-up currently n.p.o. scheduled to undergo thrombectomy with vascular surgery for left fistula thrombosis. Patient continued on antibiotics with multiple medical consultations following admitted to general surgery services. Patient currently being taken down to preop for thrombectomy with vascular surgery and will await report. Awaiting finalized cultures to determine discharge antibiotics as well status post multiple abscesses noted in the abdomen. Ostomy reversal was canceled and patient will follow and continue with general surgery outpatient. She is currently afebrile reports some improvement in abdominal discomfort and is scheduled to receive hemodialysis again today. Nephrology is following. 05/21/2023 Patient is seen and evaluated in follow-up status post thrombectomy of the left fistula with vascular surgery. Patient received hemodialysis yesterday morning with plans on hemodialysis again on 05/22/2023 with nephrology following. Patient continues on antibiotics along with infectious disease following and admitted to general surgery awaiting on finalized cultures to determine discharge antibiotics. Patient is status post drainage of the abscess. Patient reports some tenderness of the abdomen although it is improved from previous. Patient has not been up and walking very much and will have PT/OT therapy evaluate the patient. Hemoglobin stable at 7.1 and recommend to transfuse if 7 or less. Labs ordered for a.m. Review of Systems Constitutional: Denied any fatigue denied any fever. Cardio vascular: denied any chest pain, palpitations Gastrointestinal: denied any nausea, vomiting, diarrhea Pulmonary: Denied any shortness of breath cough Neurologic denied any new focal deficits, reports some generalized weakness All inpatient medications were reviewed and appropriate changes in these medications as dictated in the interval history and assessment and plan. PHYSICAL EXAMINATION: GENERAL: The patient is alert and oriented x3, not in any acute distress. Well developed, well nourished. Obese HEENT: Pupils are round and equally reacting to light. EOMI. No scleral icterus. No conjunctival pallor. Normocephalic, atraumatic. No pharyngeal erythema. No thyromegaly. CARDIOVASCULAR: S1 and S2 present. No murmurs, rubs, or gallops. PULMONARY: Chest is clear to auscultation, no wheezing or crackles. ABDOMEN: Soft, less tender on palpation, nondistended, normoactive bowel sounds. No palpable organomegaly. MUSCULOSKELETAL: No joint swelling or deformity. EXTREMITIES: No cyanosis, clubbing, or pedal edema. Left arm fistula noted with a thrill NEUROLOGICAL: Gross neurological examination did not reveal any focal deficits. Diffusely weak SKIN: No rashes. Assessment: -History of perforated diverticulitis with end colostomy the plan for colostomy reversal has been aborted this admission due to multiple abscesses noted in the abdominal cavity. Patient is posoperative diagnostic laparotomy, lysis of adhesions, drainage of abscess. -Previous history of peritoneal dialysis with spontaneous bacterial peritonitis and catheter was removed undergoing hemodialysis -thrombosed loop graft to the left arm patient is status post thrombectomy on 05/20/2023 -Hypertension history -Renal disease with end-stage renal disease and maintained on hemodialysis Saturday/Saturday/Saturday -History of focal segmental glomerulosclerosis -History of diverticulitis and colitis -History of bleeding gastric ulcers -History of pseudotumor on the brain -History of anxiety -Former smoker Obesity with a BMI of 30.4 GI prophylaxis DVT prophylaxis Full code Plan: Patient is admitted under surgical services underwent drainage of abscess with prevana wound vac closure. Patient was scheduled for colostomy reversal which was aborted as there was multiple abscesses noted. Finalized cultures pending with infectious disease following maintained on antibiotics Nephrology following for recommendations regarding hemodialysis. Patient does have a continued permacath which is being used. Plans for hemodialysis again on 05/22/2023 Home medications reviewed and resumed as appropriate. Discussed with the patient about blood pressure as patient is currently normotensive and on the lower side and will discontinue clonidine Vascular surgery following and patient is status post open thrombectomy of the fistula to the left arm We will continue to follow with general surgery during hospitalization. Thank you kindly for this consultation Recommend follow-up labs in the a.m. hemoglobin is 7.1 today. Transfuse if 7 or less The impression and plan of care has been dictated by Loly Edgar, Nurse Practitioner as directed. Dr. Yuki MD I have performed a history and physical examination and medical decision making of this patient, discussed the same with the dictator, and agree with the dictators assessment and plan as written, documented as a scribe. Based on total visit time, I have performed more than 50% of this visit. Objective - Vital Signs Vital signs: Vital Signs Temp 98.3 F 05/21/23 00:00 Pulse 60 05/21/23 04:00 Resp 16 05/21/23 04:00 BP 154/86 05/21/23 04:00 Pulse Ox 99 05/21/23 04:00 FiO2 Intake & Output 05/20/23 05/21/23 05/21/23 18:59 06:59 18:59 Intake Total 702 20 118 Output Total 2600 Balance -1898 20 118 Weight 80.4 kg Intake: IV 302 20 Invasive Line 1 20 Oral 118 Hemodialysis 400 Output: Hemodialysis 2500 Estimated Blood Loss 100 Other: Voiding Method Toilet # Voids 0 # Bowel Movements 0 - Labs CBC & Chem 7: 05/21/23 11:55 05/21/23 11:55 Labs: Microbiology - Last 24 Hours (Table) 05/17/23 14:45 Anaerobic Culture - Preliminary Other - Other 05/17/23 14:45 Gram Stain - Final Other - Other Wound Culture - Final
--- NOTE | 2023-05-22 11:42 | P.PN ---
Subjective Progress Note Date: 05/22/23 Principal diagnosis: Reason for follow-up is peridiverticular abscess and leukocytosis Patient is a 42-year-old female with a past medical history significant for hypertension seizure disorder end-stage renal disease on dialysis patient also have a complicated history of diverticulitis with perforation requiring diverting colostomy and also have a acute cholecystitis required cholecystotomy tube placement followed by cholecystectomy patient was electively admitted to the hospital for reversal of her colostomy however patient was noticed to have evidence of pelvic abscess in this patient was status post extensive lysis of adhesion and drainage of the diverticular abscess, infectious disease was consulted for management of antibiotic therapy. On today's evaluation that is 05/22/2023, Patient is afebrile patient is currently on room air and denies having any shortness of breath, the patient denies any chest pain or cough, the patient denies any nausea vomiting abdominal pain has decreased in intensity. Patient white count 9.0 and a creatinine of 7.94 as of yesterday no lab draw today abdominal culture negative Objective - Vital Signs Vital signs: Vital Signs Temp 97.4 F L 05/22/23 03:33 Pulse 59 L 05/22/23 03:33 Resp 16 05/22/23 03:33 BP 152/89 05/22/23 03:33 Pulse Ox 98 05/22/23 03:33 FiO2 Intake & Output 05/21/23 05/22/23 05/22/23 18:59 06:59 18:59 Intake Total 384 10 Output Total 100 0 Balance 284 10 Weight 86.4 kg Intake: IV 30 10 Invasive Line 1 30 10 Oral 354 Output: Urine 0 Stool 100 Other: Voiding Method Toilet Toilet # Voids 0 0 - Exam GENERAL DESCRIPTION: Middle-aged female lying in bed in no distress RESPIRATORY SYSTEM: Unlabored breathing , decreased breath sounds at bases HEART: S1 S2 regular rate and rhythm , ABDOMEN: Soft , no tenderness EXTREMITIES: No edema feet - Labs CBC & Chem 7: 05/21/23 11:55 05/21/23 11:55 Labs: Abnormal Lab Results - Last 24 Hours (Table) 05/21/23 05/21/23 Range/Units 11:55 11:55 RBC 2.36 L (3.80-5.40) m/uL Hgb 7.1 L D (11.4-16.0) gm/dL Hct 22.3 L (34.0-46.0) % RDW 18.4 H (11.5-15.5) % Sodium 132 L (137-145) mmol/L BUN 29 H (7-17) mg/dL Creatinine 7.94 H* (0.52-1.04) mg/dL Glucose 118 H (74-99) mg/dL Calcium 7.8 L (8.4-10.2) mg/dL Assessment and Plan (1) Diverticulitis of large intestine with complication Current Visit: No Status: Acute Code(s): K57.32 - DVTRCLI OF LG INT W/O PERFORATION OR ABSCESS W/O BLEEDING SNOMED Code(s): 323885225 (2) Intra-abdominal abscess Current Visit: No Status: Acute Code(s): K65.1 - PERITONEAL ABSCESS SNOMED Code(s): 24582595 Plan: 1patient with a complicated history of diverticulitis, peridiverticular abscess treated surgically in this patient who did have diabetic colostomy now admitted to the hospital for reversal of her diverting colostomy however the patient was noticed to have pelvic abscess in this patient who is status post lysis of adhesions and drainage of the pelvic abscess cultures obtained which are currently pending we will need to cover for enteric gram-negative both aerobes and anaerobes, cultures are so far negative 2-patient is afebrile the patient white count has normalized, patient currently covered with the Zosyn however if the patient culture remains to be negative for resistant pathogen we will consider oral antibiotic on discharge Dictation was produced using [employer] dictation software. please excuse any grammatical, word or spelling errors.
--- NOTE | 2023-05-22 14:05 | P.PN ---
Subjective Progress Note Date: 05/22/23 CHIEF COMPLAINT: Diverticulitis HISTORY OF PRESENT ILLNESS: Open colostomy reversal aborted. Patient is postop day #4 status post diagnostic laparoscopy with open extensive lysis of adhesions and drainage of bilateral pelvic sigmoid diverticular abscess with peritoneal lavage. Patient receiving hemodialysis today. Patient reports her pain is controlled. Ostomy is functioning. She is status post open thrombectomy of the left upper extremity loop AVG with cardiovascular surgery. Afebrile. WBC is normal at 9.0 Hgb 7.1. Labs pending cultures negative so far PHYSICAL EXAM: VITAL SIGNS: Reviewed GENERAL: Well-developed in no acute distress. HEENT: No sclera icterus. Extraocular movements grossly intact. Moist buccal mucosa. Head is atraumatic, normocephalic. Hears conversational speech. No nasal drainage. NECK: Supple without lymphadenopathy. CHEST: Non-labored respirations and equal bilateral excursions. CARDIOVASCULAR: Palpable 2+ radial pulses. ABDOMEN: Soft. Ostomy functioning. Pre-Nicky wound VAC intact MUSCULOSKELETAL: No clubbing or cyanosis. NEUROLOGIC: No focal or lateralizing signs. Cranial nerves II through XII grossly intact. PSYCH: Appropriate affect. Alert and oriented to person, place and time. SKIN: Well perfused. Good skin turgor. ASSESSMENT: 1. Chronic sigmoid diverticulitis with colon perforation with descending colostomy 2. Localized diverticular pelvic abscess 3. Peritoneal adhesions 4. History of fecal peritonitis with sepsis 5. End-stage renal disease, dialysis dependent 6. Chronic anemia 7. Hypertensive heart disease 8. Obesity due to excess calories, BMI 30.4 9. History of GI bleed 10. Severe pelvic phlegmon from diverticular abscess PLAN: -Anticipate discharge possibly tomorrow -Continue renal diet -Discharge antibiotic recommendations per infectious disease -Continue supportive care -Continue pain management Physician Transmission Mechanic note has been reviewed by physician. Signing provider agrees with the documented findings, assessment, and plan of care. Objective - Vital Signs Vital signs: Vital Signs Temp 98.3 F 05/22/23 11:19 Pulse 61 05/22/23 11:19 Resp 16 05/22/23 11:19 BP 151/88 05/22/23 11:19 Pulse Ox 95 05/22/23 11:19 FiO2 Intake & Output 05/21/23 05/22/23 05/22/23 18:59 06:59 18:59 Intake Total 384 10 Output Total 100 0 100 Balance 284 10 -100 Weight 86.4 kg Intake: IV 30 10 Invasive Line 1 30 10 Oral 354 Output: Urine 0 Stool 100 100 Other: Voiding Method Toilet Toilet Toilet # Voids 0 0 - Labs CBC & Chem 7: 05/21/23 11:55 05/21/23 11:55 Labs: Abnormal Lab Results - Last 24 Hours (Table) 05/21/23 05/21/23 Range/Units 11:55 11:55 RBC 2.36 L (3.80-5.40) m/uL Hgb 7.1 L D (11.4-16.0) gm/dL Hct 22.3 L (34.0-46.0) % RDW 18.4 H (11.5-15.5) % Sodium 132 L (137-145) mmol/L BUN 29 H (7-17) mg/dL Creatinine 7.94 H* (0.52-1.04) mg/dL Glucose 118 H (74-99) mg/dL Calcium 7.8 L (8.4-10.2) mg/dL
[2023-05-22 15:21] LABS: Anisocytosis Slight; Basophils % (A) 1 %; Eosinophils # (A) 0.2 k/uL (0-0.7); Eosinophils % (A) 2 %; HCT 22.8 % (34.0-46.0); HGB 7.7 gm/dL (11.4-16.0); Hypochromasia Slight; Lymphocytes # (A) 0.6 k/uL (1.0-4.8); Lymphocytes % (A) 8 %; MCH 30.8 pg (25.0-35.0); MCHC 33.6 g/dL (31.0-37.0); MCV 91.6 fL (80.0-100.0); Mean Platelet Volume 8.1; Monocytes # (A) 0.3 k/uL (0-1.0); Monocytes % (A) 4 %; Neutrophils # (A) 6.4 k/uL (1.3-7.7); Neutrophils % (A) 84 %; Platelet Count 193 k/uL (150-450); RBC 2.49 m/uL (3.80-5.40); RDW 18.3 % (11.5-15.5); WBC 7.7 k/uL (3.8-10.6)
[2023-05-22 15:25] LABS: African American GFR (CKD) 15 (>60 ml/min/1.73 sqM); Anion Gap 7 mmol/L; Blood Urea Nitrogen 17 mg/dL (7-17); Calcium 7.7 mg/dL (8.4-10.2); Carbon Dioxide 29 mmol/L (22-30); Chloride 95 mmol/L (98-107); Glucose 95 mg/dL (74-99); Non-African American GFR(CKD) 13 (>60 ml/min/1.73 sqM); Potassium 3.5 mmol/L (3.5-5.1); Sodium 131 mmol/L (137-145)
--- NOTE | 2023-05-22 16:52 | P.PN ---
Subjective Patient is seen for follow-up for end-stage renal disease. Seen on hemodialysis today. Tolerating treatment well. No significant complaints today. Objective - Vital Signs Vital signs: Vital Signs Temp 98.4 F 05/22/23 15:57 Pulse 73 05/22/23 15:57 Resp 16 05/22/23 15:57 BP 162/83 05/22/23 15:57 Pulse Ox 94 L 05/22/23 15:57 FiO2 Intake & Output 05/21/23 05/22/23 05/22/23 18:59 06:59 18:59 Intake Total 384 10 Output Total 100 0 200 Balance 284 10 -200 Weight 86.4 kg Intake: IV 30 10 Invasive Line 1 30 10 Oral 354 Output: Urine 0 Stool 100 200 Other: Voiding Method Toilet Toilet Toilet # Voids 0 0 - Exam Patient is awake, comfortable, no acute distress Abdomen is soft mild tenderness noted, colostomy Examination of lower extremities shows no significant edema SYSTEM ADMINISTRATOR exam grossly intact - Labs CBC & Chem 7: 05/22/23 14:57 05/22/23 14:57 Labs: Abnormal Lab Results - Last 24 Hours (Table) 05/22/23 05/22/23 Range/Units 14:57 14:57 RBC 2.49 L (3.80-5.40) m/uL Hgb 7.7 L (11.4-16.0) gm/dL Hct 22.8 L (34.0-46.0) % RDW 18.3 H (11.5-15.5) % Lymphocytes # 0.6 L (1.0-4.8) k/uL Sodium 131 L (137-145) mmol/L Chloride 95 L (98-107) mmol/L Creatinine 4.12 H (0.52-1.04) mg/dL Calcium 7.7 L (8.4-10.2) mg/dL Microbiology - Last 24 Hours (Table) 05/17/23 14:45 Anaerobic Culture - Final Other - Other Assessment and Plan Assessment: 1. End-stage renal disease maintained on hemodialysis on Saturday schedule. Access Left IJ Permcath, clotted left arm AVG. 2. Hypertension with chronic kidney disease. Stable. 3. Chronic kidney disease mineral bone disease- on Velphoro 4. Anemia of chronic kidney disease. On Aranesp. 5. History of perforated diverticulitis with pelvic abscess s/p colostomy. s/p Ex-lap with lysis of adhesions. Plans for reversal of colostomy currently on hold due to severe adhesions and infection. 6. Hyperkalemia, improved. Plan: Maintain hemodialysis on Saturday schedule. Encourage increased oral intake.
--- NOTE | 2023-05-22 20:19 | P.PN ---
Subjective Progress Note Date: 05/22/23 This is a pleasant 42-year-old female who was admitted under general surgery services Dr. Blackburn who had perforated diverticulitis with sepsis and a previous peritoneal dialysis catheter approximately 6 months ago and has been undergoing hemodialysis as there was concerns of spontaneous bacterial per itonitis. Patient is scheduled for colonoscopy evaluation and colostomy reversal. Patient follows with Dr. 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 Patient also has anxiety is a former smoker and occasionally uses marijuana from the past. Patient is currently n.p.o. awaiting to go colonoscopy and surgical intervention with colostomy removal today. Will await surgical report and continue to follow. Nephrology also consulted and will be receiving hemodialysis sometime today. 05/18/2023 Patient is evaluated today on the medical floor he was taken for surgery for possible colostomy reversal. This was unable to be completed due to the finding of bilateral pelvic sigmoid diverticular abscess which were drained as well as extensive lysis of adhesions and peritoneal lavage. Patient has Prevena wound VAC closure midline. She has not had any stool from the ostomy since surgery. She reports mild abdominal pain. Patient has a maturing fistula in the left arm felt that there was no thrill present which was confirmed by nursing and vascular services was consulted. Patient had a duplex ultrasound completed of the fistula to the left arm confirming a complete thrombosis and vascular is planning on taking the patient to the OR for this on Saturday. 05/19/2023 Patient is evaluated today on the medical floor. She continues to report mild abdominal discomfort she has not had any stool yet from the ostomy. Patient is scheduled to undergo open thrombectomy tomorrow for the thrombosis to the left fistula. She continues to be dialyzed through the right chest permacath and is scheduled to undergo hemodialysis tomorrow. White count today remains elevated at 12.91, hemoglobin of 7.9. Patient sodium level is 131, creatinine has increased up to 9.9. Her magnesium is normal. Hemodynamically she is stable. 05/20/2023 Patient is seen in follow-up currently n.p.o. scheduled to undergo thrombectomy with vascular surgery for left fistula thrombosis. Patient continued on antibiotics with multiple medical consultations following admitted to general surgery services. Patient currently being taken down to preop for thrombectomy with vascular surgery and will await report. Awaiting finalized cultures to determine discharge antibiotics as well status post multiple abscesses noted in the abdomen. Ostomy reversal was canceled and patient will follow and continue with general surgery outpatient. She is currently afebrile reports some improvement in abdominal discomfort and is scheduled to receive hemodialysis again today. Nephrology is following. 05/21/2023 Patient is seen and evaluated in follow-up status post thrombectomy of the left fistula with vascular surgery. Patient received hemodialysis yesterday morning with plans on hemodialysis again on 05/22/2023 with nephrology following. Patient continues on antibiotics along with infectious disease following and admitted to general surgery awaiting on finalized cultures to determine discharge antibiotics. Patient is status post drainage of the abscess. Patient reports some tenderness of the abdomen although it is improved from previous. Patient has not been up and walking very much and will have PT/OT therapy evaluate the patient. Hemoglobin stable at 7.1 and recommend to transfuse if 7 or less. Labs ordered for a.m. 05/22/2023 Patient is seen in follow-up today receiving hemodialysis with nephrology following closely. Patient also continues on antibiotics in the form of Zosyn with infectious disease following awaiting finalized culture to determine discharge antibiotics. Cultures thus far appear negative. Patient is afebrile with no reports of chest pain or shortness of breath. Patient reports abdominal pain is slightly improved. Hemoglobin improved from yesterday as well at 7.7. Patient has been encouraged to increase activity as tolerated and continue with oral intake. Diet to be advanced per surgery. Review of Systems Constitutional: Denied any fatigue denied any fever. Cardio vascular: denied any chest pain, palpitations Gastrointestinal: denied any nausea, vomiting, diarrhea Pulmonary: Denied any shortness of breath cough Neurologic denied any new focal deficits, reports some generalized weakness All inpatient medications were reviewed and appropriate changes in these medications as dictated in the interval history and assessment and plan. PHYSICAL EXAMINATION: GENERAL: The patient is alert and oriented x3, not in any acute distress. Well developed, well nourished. Obese HEENT: Pupils are round and equally reacting to light. EOMI. No scleral icterus. No conjunctival pallor. Normocephalic, atraumatic. No pharyngeal erythema. No thyromegaly. CARDIOVASCULAR: S1 and S2 present. No murmurs, rubs, or gallops. PULMONARY: Chest is clear to auscultation, no wheezing or crackles. ABDOMEN: Soft, less tender on palpation, nondistended, normoactive bowel sounds. No palpable organomegaly. MUSCULOSKELETAL: No joint swelling or deformity. EXTREMITIES: No cyanosis, clubbing, or pedal edema. Left arm fistula noted with a thrill NEUROLOGICAL: Gross neurological examination did not reveal any focal deficits. Diffusely weak SKIN: No rashes. Assessment: -History of perforated diverticulitis with end colostomy the plan for colostomy reversal has been aborted this admission due to multiple abscesses noted in the abdominal cavity. Patient is posoperative diagnostic laparotomy, lysis of adhesions, drainage of abscess. -Previous history of peritoneal dialysis with spontaneous bacterial peritonitis and catheter was removed undergoing hemodialysis -thrombosed loop graft to the left arm patient is status post thrombectomy on 05/20/2023 -Hypertension history -Renal disease with end-stage renal disease and maintained on hemodialysis /Saturday/Saturday -History of focal segmental glomerulosclerosis -History of diverticulitis and colitis -History of bleeding gastric ulcers -History of pseudotumor on the brain -History of anxiety -Former smoker Obesity with a BMI of 30.4 GI prophylaxis DVT prophylaxis Full code Plan: Patient is admitted under surgical services underwent drainage of abscess with prevana wound vac closure. Patient was scheduled for colostomy reversal which was aborted as there was multiple abscesses noted. Finalized cultures are negative and awaiting discharge antibiotic recommendations per infectious dis ease Nephrology following for recommendations regarding hemodialysis. Patient does have a continued permacath which is being used. Plans for hemodialysis today Home medications reviewed and resumed as appropriate. Discussed with the patient about blood pressure as patient is currently normotensive and on the lower side and will discontinue clonidine Encouraged to increase activity as tolerated Vascular surgery following and patient is status post open thrombectomy of the fistula to the left arm We will continue to follow with general surgery during hospitalization. Thank you kindly for this consultation Possible discharge planning being discussed in the next 24 hours. The impression and plan of care has been dictated by Loly Edgar, Nurse Practitioner as directed. Dr. Yuki MD I have performed a history and physical examination and medical decision making of this patient, discussed the same with the dictator, and agree with the dictators assessment and plan as written, documented as a scribe. Based on total visit time, I have performed more than 50% of this visit. Objective - Vital Signs Vital signs: Vital Signs Temp 98.3 F 05/22/23 11:19 Pulse 61 05/22/23 11:19 Resp 16 05/22/23 11:19 BP 151/88 05/22/23 11:19 Pulse Ox 95 05/22/23 11:19 FiO2 Intake & Output 05/21/23 05/22/23 05/22/23 18:59 06:59 18:59 Intake Total 384 10 Output Total 100 0 200 Balance 284 10 -200 Weight 86.4 kg Intake: IV 30 10 Invasive Line 1 30 10 Oral 354 Output: Urine 0 Stool 100 200 Other: Voiding Method Toilet Toilet Toilet # Voids 0 0 - Labs CBC & Chem 7: 05/22/23 14:57 05/22/23 14:57 Labs: Microbiology - Last 24 Hours (Table) 05/17/23 14:45 Anaerobic Culture - Final Other - Other
--- NOTE | 2023-05-23 13:00 | P.PN ---
Subjective Progress Note Date: 05/23/23 CHIEF COMPLAINT: Diverticulitis HISTORY OF PRESENT ILLNESS: Open colostomy reversal aborted. Patient is postop day #6 status post diagnostic laparoscopy with open extensive lysis of adhesions and drainage of bilateral pelvic sigmoid diverticular abscess with peritoneal lavage. Patient reports her pain is controlled. Ostomy is functioning. Afebrile. WBC 7.7 HGB 7.7 PHYSICAL EXAM: VITAL SIGNS: Reviewed GENERAL: Well-developed in no acute distress. HEENT: No sclera icterus. Extraocular movements grossly intact. Moist buccal mucosa. Head is atraumatic, normocephalic. Hears conversational speech. No nasal drainage. NECK: Supple without lymphadenopathy. CHEST: Non-labored respirations and equal bilateral excursions. CARDIOVASCULAR: Palpable 2+ radial pulses. ABDOMEN: Soft. Ostomy functioning. Pre-Nicky wound VAC intact MUSCULOSKELETAL: No clubbing or cyanosis. NEUROLOGIC: No focal or lateralizing signs. Cranial nerves II through XII grossly intact. PSYCH: Appropriate affect. Alert and oriented to person, place and time. SKIN: Well perfused. Good skin turgor. ASSESSMENT: 1. Chronic sigmoid diverticulitis with colon perforation with descending colostomy 2. Localized diverticular pelvic abscess 3. Peritoneal adhesions 4. History of fecal peritonitis with sepsis 5. End-stage renal disease, dialysis dependent 6. Chronic anemia 7. Hypertensive heart disease 8. Obesity due to excess calories, BMI 30.4 9. History of GI bleed 10. Severe pelvic phlegmon from diverticular abscess PLAN: -Anticipate discharge tomorrow -Continue renal diet -Discharge on Augmentin per infectious disease -Continue supportive care -Continue pain management -working on colostomy bag supply outpatient -Remove Prevana wound vac tomorrow Physician Cover Cutter note has been reviewed by physician. Signing provider agrees with the documented findings, assessment, and plan of care. Objective - Vital Signs Vital signs: Vital Signs Temp 97.6 F 05/23/23 08:07 Pulse 67 05/23/23 08:07 Resp 16 05/23/23 08:07 BP 176/76 05/23/23 08:07 Pulse Ox 98 05/23/23 08:07 FiO2 Intake & Output 05/22/23 05/23/23 05/23/23 18:59 06:59 18:59 Intake Total 118 400 Output Total 200 1900 Balance -82 -1500 Weight 86.5 kg Intake: Oral 118 Hemodialysis 400 Output: Stool 200 Hemodialysis 1900 Other: Voiding Method Toilet Toilet Toilet - Labs CBC & Chem 7: 05/22/23 14:57 05/22/23 14:57 Labs: Abnormal Lab Results - Last 24 Hours (Table) 05/22/23 05/22/23 Range/Units 14:57 14:57 RBC 2.49 L (3.80-5.40) m/uL Hgb 7.7 L (11.4-16.0) gm/dL Hct 22.8 L (34.0-46.0) % RDW 18.3 H (11.5-15.5) % Lymphocytes # 0.6 L (1.0-4.8) k/uL Sodium 131 L (137-145) mmol/L Chloride 95 L (98-107) mmol/L Creatinine 4.12 H (0.52-1.04) mg/dL Calcium 7.7 L (8.4-10.2) mg/dL Microbiology - Last 24 Hours (Table) 05/17/23 14:45 Anaerobic Culture - Final Other - Other
--- NOTE | 2023-05-23 13:46 | P.PN ---
Subjective Patient is seen for follow-up for end-stage renal disease. Tolerated hemodialysis well yesterday No significant complaints today. Objective - Vital Signs Vital signs: Vital Signs Temp 97.6 F 05/23/23 08:07 Pulse 72 05/23/23 12:10 Resp 17 05/23/23 12:10 BP 188/89 05/23/23 12:10 Pulse Ox 98 05/23/23 12:10 FiO2 Intake & Output 05/22/23 05/23/23 05/23/23 18:59 06:59 18:59 Intake Total 118 400 Output Total 200 1900 Balance -82 -1500 Weight 86.5 kg Intake: Oral 118 Hemodialysis 400 Output: Stool 200 Hemodialysis 1900 Other: Voiding Method Toilet Toilet Toilet # Voids 1 - Exam Patient is awake, comfortable, no acute distress Abdomen is soft mild tenderness noted, colostomy Examination of lower extremities shows no significant edema BRANCH LENDING MANAGER exam grossly intact - Labs CBC & Chem 7: 05/22/23 14:57 05/22/23 14:57 Labs: Abnormal Lab Results - Last 24 Hours (Table) 05/22/23 05/22/23 Range/Units 14:57 14:57 RBC 2.49 L (3.80-5.40) m/uL Hgb 7.7 L (11.4-16.0) gm/dL Hct 22.8 L (34.0-46.0) % RDW 18.3 H (11.5-15.5) % Lymphocytes # 0.6 L (1.0-4.8) k/uL Sodium 131 L (137-145) mmol/L Chloride 95 L (98-107) mmol/L Creatinine 4.12 H (0.52-1.04) mg/dL Calcium 7.7 L (8.4-10.2) mg/dL Microbiology - Last 24 Hours (Table) 05/17/23 14:45 Anaerobic Culture - Final Other - Other Assessment and Plan Assessment: 1. End-stage renal disease maintained on hemodialysis on Saturday schedule. Access Left IJ Permcath, clotted left arm AVG. 2. Hypertension with chronic kidney disease. Stable. 3. Chronic kidney disease mineral bone disease- on Velphoro 4. Anemia of chronic kidney disease. On Aranesp. 5. History of perforated diverticulitis with pelvic abscess s/p colostomy. s/p Ex-lap with lysis of adhesions. Plans for reversal of colostomy currently on hold due to severe adhesions and infection. 6. Hyperkalemia, improved. Plan: Maintain hemodialysis on Saturday schedule. Encourage increased oral intake.
--- NOTE | 2023-05-23 15:40 | P.PN ---
Subjective Progress Note Date: 05/23/23 Principal diagnosis: Reason for follow-up is peridiverticular abscess and leukocytosis Patient is a 42-year-old female with a past medical history significant for hypertension seizure disorder end-stage renal disease on dialysis patient also have a complicated history of diverticulitis with perforation requiring diverting colostomy and also have a acute cholecystitis required cholecystotomy tube placement followed by cholecystectomy patient was electively admitted to the hospital for reversal of her colostomy however patient was noticed to have evidence of pelvic abscess in this patient was status post extensive lysis of adhesion and drainage of the diverticular abscess, infectious disease was consulted for management of antibiotic therapy. On today's evaluation that is 05/23/2023,the patient denies any fever or any chills, patient is breathing comfortably on room air, the patient denies chest pain shortness of breath and no significant cough, patient denies abdominal pain, no nausea vomiting or diarrhea. Patient white count is 7.7 creatinine of 4.12 as of yesterday Objective - Vital Signs Vital signs: Vital Signs Temp 97.6 F 05/23/23 08:07 Pulse 67 05/23/23 08:07 Resp 16 05/23/23 08:07 BP 176/76 05/23/23 08:07 Pulse Ox 98 05/23/23 08:07 FiO2 Intake & Output 05/22/23 05/23/23 05/23/23 18:59 06:59 18:59 Intake Total 118 400 Output Total 200 1900 Balance -82 -1500 Weight 86.5 kg Intake: Oral 118 Hemodialysis 400 Output: Stool 200 Hemodialysis 1900 Other: Voiding Method Toilet Toilet Toilet - Exam GENERAL DESCRIPTION: Middle-aged female lying in bed in no distress RESPIRATORY SYSTEM: Unlabored breathing , decreased breath sounds at bases HEART: S1 S2 regular rate and rhythm , ABDOMEN: Soft , no tenderness EXTREMITIES: No edema feet - Labs CBC & Chem 7: 05/22/23 14:57 05/22/23 14:57 Labs: Abnormal Lab Results - Last 24 Hours (Table) 05/22/23 05/22/23 Range/Units 14:57 14:57 RBC 2.49 L (3.80-5.40) m/uL Hgb 7.7 L (11.4-16.0) gm/dL Hct 22.8 L (34.0-46.0) % RDW 18.3 H (11.5-15.5) % Lymphocytes # 0.6 L (1.0-4.8) k/uL Sodium 131 L (137-145) mmol/L Chloride 95 L (98-107) mmol/L Creatinine 4.12 H (0.52-1.04) mg/dL Calcium 7.7 L (8.4-10.2) mg/dL Microbiology - Last 24 Hours (Table) 05/17/23 14:45 Anaerobic Culture - Final Other - Other Assessment and Plan (1) Diverticulitis of large intestine with complication Current Visit: No Status: Acute Code(s): K57.32 - DVTRCLI OF LG INT W/O PERFORATION OR ABSCESS W/O BLEEDING SNOMED Code(s): 653120499 (2) Intra-abdominal abscess Current Visit: No Status: Acute Code(s): K65.1 - PERITONEAL ABSCESS SNOMED Code(s): 36097045 Plan: 1patient with a complicated history of diverticulitis, peridiverticular abscess treated surgically in this patient who did have diabetic colostomy now admitted to the hospital for reversal of her diverting colostomy however the patient was noticed to have pelvic abscess in this patient who is status post lysis of adhesions and drainage of the pelvic abscess cultures obtained which are currently pending we will need to cover for enteric gram-negative both aerobes and anaerobes, cultures are so far negative 2-patient is afebrile the patient white count has normalized, 3-patient to continue Zosyn while inpatient however the patient will be able to finish therapy with oral Augmentin 500 mg daily for 10 days on discharge Dictation was produced using [employer] dictation software. please excuse any gram matical, word or spelling errors.
--- NOTE | 2023-05-23 22:10 | P.PN ---
Subjective Progress Note Date: 05/23/23 This is a pleasant 42-year-old female who was admitted under general surgery services Dr. Blackburn who had perforated diverticulitis with sepsis and a previous peritoneal dialysis catheter approximately 6 months ago and has been undergoing hemodialysis as there was concerns of spontaneous bacterial per itonitis. Patient is scheduled for colonoscopy evaluation and colostomy reversal. Patient follows with Dr. 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 Patient also has anxiety is a former smoker and occasionally uses marijuana from the past. Patient is currently n.p.o. awaiting to go colonoscopy and surgical intervention with colostomy removal today. Will await surgical report and continue to follow. Nephrology also consulted and will be receiving hemodialysis sometime today. 05/18/2023 Patient is evaluated today on the medical floor he was taken for surgery for possible colostomy reversal. This was unable to be completed due to the finding of bilateral pelvic sigmoid diverticular abscess which were drained as well as extensive lysis of adhesions and peritoneal lavage. Patient has Prevena wound VAC closure midline. She has not had any stool from the ostomy since surgery. She reports mild abdominal pain. Patient has a maturing fistula in the left arm felt that there was no thrill present which was confirmed by nursing and vascular services was consulted. Patient had a duplex ultrasound completed of the fistula to the left arm confirming a complete thrombosis and vascular is planning on taking the patient to the OR for this on Saturday. 05/19/2023 Patient is evaluated today on the medical floor. She continues to report mild abdominal discomfort she has not had any stool yet from the ostomy. Patient is scheduled to undergo open thrombectomy tomorrow for the thrombosis to the left fistula. She continues to be dialyzed through the right chest permacath and is scheduled to undergo hemodialysis tomorrow. White count today remains elevated at 12.91, hemoglobin of 7.9. Patient sodium level is 131, creatinine has increased up to 9.9. Her magnesium is normal. Hemodynamically she is stable. 05/20/2023 Patient is seen in follow-up currently n.p.o. scheduled to undergo thrombectomy with vascular surgery for left fistula thrombosis. Patient continued on antibiotics with multiple medical consultations following admitted to general surgery services. Patient currently being taken down to preop for thrombectomy with vascular surgery and will await report. Awaiting finalized cultures to determine discharge antibiotics as well status post multiple abscesses noted in the abdomen. Ostomy reversal was canceled and patient will follow and continue with general surgery outpatient. She is currently afebrile reports some improvement in abdominal discomfort and is scheduled to receive hemodialysis again today. Nephrology is following. 05/21/2023 Patient is seen and evaluated in follow-up status post thrombectomy of the left fistula with vascular surgery. Patient received hemodialysis yesterday morning with plans on hemodialysis again on 05/22/2023 with nephrology following. Patient continues on antibiotics along with infectious disease following and admitted to general surgery awaiting on finalized cultures to determine discharge antibiotics. Patient is status post drainage of the abscess. Patient reports some tenderness of the abdomen although it is improved from previous. Patient has not been up and walking very much and will have PT/OT therapy evaluate the patient. Hemoglobin stable at 7.1 and recommend to transfuse if 7 or less. Labs ordered for a.m. 05/22/2023 Patient is seen in follow-up today receiving hemodialysis with nephrology following closely. Patient also continues on antibiotics in the form of Zosyn with infectious disease following awaiting finalized culture to determine discharge antibiotics. Cultures thus far appear negative. Patient is afebrile with no reports of chest pain or shortness of breath. Patient reports abdominal pain is slightly improved. Hemoglobin improved from yesterday as well at 7.7. Patient has been encouraged to increase activity as tolerated and continue with oral intake. Diet to be advanced per surgery. 05/23/2023 Patient is seen and evaluated in follow-up today currently sitting up in the chair being followed with multiple medical consultations. Plan is for hemodialysis tomorrow and possible discharge. Patient will be continued on IV antibiotics while inpatient and transition to oral Augmentin on discharge. Patient is tolerating diet and ostomy noted with stool. Encouraged to increase activity as tolerated. No reports of chest pain or shortness of breath patient is eager to go home. Plan for prevana wound VAC to be removed tomorrow. Review of Systems Constitutional: Denied any fatigue denied any fever. Cardio vascular: denied any chest pain, palpitations Gastrointestinal: denied any nausea, vomiting, diarrhea Pulmonary: Denied any shortness of breath cough Neurologic denied any new focal deficits, reports some generalized weakness All inpatient medications were reviewed and appropriate changes in these medications as dictated in the interval history and assessment and plan. PHYSICAL EXAMINATION: GENERAL: The patient is alert and oriented x3, not in any acute distress. Well developed, well nourished. Obese HEENT: Pupils are round and equally reacting to light. EOMI. No scleral icterus. No conjunctival pallor. Normocephalic, atraumatic. No pharyngeal erythema. No thyromegaly. CARDIOVASCULAR: S1 and S2 present. No murmurs, rubs, or gallops. PULMONARY: Chest is clear to auscultation, no wheezing or crackles. ABDOMEN: Soft, less tender on palpation, nondistended, normoactive bowel sounds. No palpable organomegaly. Ostomy noted with stool MUSCULOSKELETAL: No joint swelling or deformity. EXTREMITIES: No cyanosis, clubbing, or pedal edema. Left arm fistula noted with a thrill NEUROLOGICAL: Gross neurological examination did not reveal any focal deficits. Diffusely weak SKIN: No rashes. Assessment: -History of perforated diverticulitis with end colostomy the plan for colostomy reversal has been aborted this admission due to multiple abscesses noted in the abdominal cavity. Patient is posoperative diagnostic laparotomy, lysis of adhesions, drainage of abscess. 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 Plan for wound VAC removal tomorrow. Patient was scheduled for colostomy reversal which was aborted as there was multiple abscesses noted. Finalized cultures are negative and will transition to oral Augmentin on discharge Nephrology following for recommendations regarding hemodialysis. Patient does have a continued permacath which is being used. Plans for hemodialysis tomorrow and discharge planning Home medications reviewed and resumed as appropriate. Discussed with the patient about blood pressure as patient is currently normotensive and on the lower side and will discontinue clonidine Encouraged to increase activity as tolerated Vascular surgery following and patient is status post open thrombectomy of the fistula to the left arm We will continue to follow with general surgery during hospitalization. Thank you kindly for this consultation Possible discharge planning being discussed in the next 24 hours. The impression and plan of care has been dictated by Loly Edgar, Nurse Practitioner as directed. Dr. Yuki MD I have performed a history and physical examination and medical decision making of this patient, discussed the same with the dictator, and agree with the dictators assessment and plan as written, documented as a scribe. Based on total visit time, I have performed more than 50% of this visit. Objective - Vital Signs Vital signs: Vital Signs Temp 97.6 F 05/23/23 08:07 Pulse 67 05/23/23 08:07 Resp 16 05/23/23 08:07 BP 176/76 05/23/23 08:07 Pulse Ox 98 05/23/23 08:07 FiO2 Intake & Output 05/22/23 05/23/23 05/23/23 18:59 06:59 18:59 Intake Total 118 400 Output Total 200 1900 Balance -82 -1500 Weight 86.5 kg Intake: Oral 118 Hemodialysis 400 Output: Stool 200 Hemodialysis 1900 Other: Voiding Method Toilet Toilet Toilet - Labs CBC & Chem 7: 05/22/23 14:57 05/22/23 14:57 Labs: Abnormal Lab Results - Last 24 Hours (Table) 05/22/23 05/22/23 Range/Units 14:57 14:57 RBC 2.49 L (3.80-5.40) m/uL Hgb 7.7 L (11.4-16.0) gm/dL Hct 22.8 L (34.0-46.0) % RDW 18.3 H (11.5-15.5) % Lymphocytes # 0.6 L (1.0-4.8) k/uL Sodium 131 L (137-145) mmol/L Chloride 95 L (98-107) mmol/L Creatinine 4.12 H (0.52-1.04) mg/dL Calcium 7.7 L (8.4-10.2) mg/dL Microbiology - Last 24 Hours (Table) 05/17/23 14:45 Anaerobic Culture - Final Other - Other
--- NOTE | 2023-05-24 11:02 | P.PN ---
Subjective Patient is seen for follow-up for end-stage renal disease. Patient is seen on hemodialysis. Tolerating treatment well. Plans for discharge today postdialysis. Objective - Vital Signs Vital signs: Vital Signs Temp 97.8 F 05/24/23 07:35 Pulse 65 05/24/23 07:35 Resp 17 05/24/23 07:35 BP 162/90 05/24/23 07:35 Pulse Ox 96 05/24/23 07:35 FiO2 Intake & Output 05/23/23 05/24/23 05/24/23 18:59 06:59 18:59 Intake Total 260 0 Balance 260 0 Weight 88 kg Intake: Oral 260 0 Other: Voiding Method Toilet Toilet Toilet # Voids 1 2 - Exam Patient is awake, comfortable, no acute distress Examination of the heart S1 and S2 Examination of the lungs bilateral breath sounds are heard Abdomen is soft mild tenderness noted, colostomy Examination of lower extremities shows no significant edema PERSONAL BANKER exam grossly intact - Labs CBC & Chem 7: 05/22/23 14:57 05/22/23 14:57 Assessment and Plan Assessment: 1. End-stage renal disease maintained on hemodialysis on Saturday schedule. Access Left IJ Permcath, thrombosed left arm AVG, status post thrombectomy on 05/20/2023. 2. Hypertension with chronic kidney disease. Stable. 3. Chronic kidney disease mineral bone disease- on Velphoro 4. Anemia of chronic kidney disease. On Aranesp. 5. History of perforated diverticulitis with pelvic abscess s/p colostomy. s/p Ex-lap with lysis of adhesions. Plans for reversal of colostomy currently on hold due to severe adhesions and infection. 6. Hyperkalemia, improved. Plan: Maintain hemodialysis on Saturday schedule. Encourage increased oral intake. Okay for discharge from nephrology standpoint.
--- NOTE | 2023-05-24 11:37 | P.DS ---
Providers Date of admission: 05/21/23 04:53 Expected date of discharge: 05/24/23 Attending physician: Joanna Blackburn Consults: 05/16/23 06:08 Consult Physician Routine Consulting Provider: [facility] Consult Reason/Comments: Anesthesia Care Do you want consulting provider notified?: Yes 05/16/23 06:13 Consult Physician Routine Consulting Provider: Analisa Cruz Consult Reason/Comments: Dialysis management Do you want consulting provider notified?: Yes 05/16/23 17:57 Consult Physician Routine Consulting Provider: Joao Chase Consult Reason/Comments: medical management Do you want consulting provider notified?: Yes 05/17/23 16:02 Consult Physician Routine Consulting Provider: Jarred Solomon Consult Reason/Comments: Chronic diverticulitis abscess Do you want consulting provider notified?: Yes Primary care physician: Alia Keita Hospital Course: Discharge diagnosis 1. Chronic sigmoid diverticulitis with colon perforation with descending colostomy 2. Localized diverticular pelvic abscess 3. Peritoneal adhesions 4. History of fecal peritonitis with sepsis 5. End-stage renal disease, dialysis dependent 6. Chronic anemia 7. Hypertensive heart disease 8. Obesity due to excess calories, BMI 30.4 9. History of GI bleed 10. Severe pelvic phlegmon from diverticular abscess Hospital course The patient is a 42-year-old female who presents with history of complicated ruptured diverticulitis 6 months ago. She underwent a complicated surgical course including acute cholecystitis requiring open cholecystectomy, intra-abdominal sepsis, prolonged antibiotics. Patient is status post diagnostic laparoscopy with open extensive lysis of adhesions. Open colostomy reversal aborted. Patient reports her pain is controlled. She is receiving hemodialysis today. She is tolerating diet. Her ostomy is functioning. She has been up and ambulating. She is afebrile. Patient had a thrombosed left upper loop extremity AV graft and she is status post open thrombectomy with vascular surgery service during her admission. She is stable for discharge. Physician Key Punch Teacher note has been reviewed by physician. Signing provider agrees with the documented findings, assessment, and plan of care. Patient Condition at Discharge: Stable Plan - Discharge Summary Discharge Rx Participant: No New Discharge Prescriptions: New Amoxic-Pot Clav 500-125 mg [Augmentin 500-125 mg] 1 tab PO Q24HR 14 Days #14 tab Simethicone 40 mg/0.6 ml Drops [Mylicon Drops] 40 mg PO QID #30 ml Acetaminophen Tab [Tylenol Tab] 1,000 mg PO Q6HR PRN #30 tablet PRN Reason: Pain Continue Metoprolol Tartrate [Lopressor] 50 mg PO BID lisinopriL [Zestril] 20 mg PO BID Ondansetron [Zofran] 4 mg PO Q8HR PRN #20 tab PRN Reason: Nausea And Vomiting Mircera(Unk) 1 dose SQ Q15D Velphoro 500mg Chewable Tab 1,000 mg PO TID-W/MEALS Famotidine [Pepcid] 20 mg PO DAILY #30 tablet tiZANidine HCL [Zanaflex] 4 mg PO HS hydrALAZINE HCL [Apresoline] 100 mg PO TID 30 Days #180 tab Sucralfate [Carafate] 1 gm PO AC-TID 30 Days #90 tab cloNIDine HCL [Catapres] 0.1 mg PO TID #90 tab amLODIPine [Norvasc] 10 mg PO DAILY #30 tab Folic Acid-Vit B Complex-Vit C [Nephrocaps] 1 cap PO DAILY HYDROcodone/APAP 5-325MG [[place] 5-325] 1 tab PO DIRECTED PRN PRN Reason: Pain Discontinued Acetaminophen Tab [Tylenol] 650 mg PO Q6HR PRN tab PRN Reason: Mild Pain Or Fever > 100.5 Discharge Medication List Metoprolol Tartrate [Lopressor] 50 mg PO BID 11/11/21 [History] Velphoro 500mg Chewable Tab 1,000 mg PO TID-W/MEALS 11/02/22 [History] lisinopriL [Zestril] 20 mg PO BID 11/02/22 [History] Famotidine [Pepcid] 20 mg PO DAILY #30 tablet 11/23/22 [Rx] Ondansetron [Zofran] 4 mg PO Q8HR PRN #20 tab 11/23/22 [Rx] tiZANidine HCL [Zanaflex] 4 mg PO HS 11/30/22 [History] Sucralfate [Carafate] 1 gm PO AC-TID 30 Days #90 tab 12/07/22 [Rx] amLODIPine [Norvasc] 10 mg PO DAILY #30 tab 12/07/22 [Rx] cloNIDine HCL [Catapres] 0.1 mg PO TID #90 tab 12/07/22 [Rx] hydrALAZINE HCL [Apresoline] 100 mg PO TID 30 Days #180 tab 12/07/22 [Rx] Folic Acid-Vit B Complex-Vit C [Nephrocaps] 1 cap PO DAILY 12/12/22 [History] Mircera(Unk) 1 dose SQ Q15D 04/29/23 [History] HYDROcodone/APAP 5-325MG [[place] 5-325] 1 tab PO DIRECTED PRN 05/14/23 [History] Amoxic-Pot Clav 500-125 mg [Augmentin 500-125 mg] 1 tab PO Q24HR 14 Days #14 tab 05/23/23 [Rx] Acetaminophen Tab [Tylenol Tab] 1,000 mg PO Q6HR PRN #30 tablet 05/24/23 [Rx] Simethicone 40 mg/0.6 ml Drops [Mylicon Drops] 40 mg PO QID #30 ml 05/24/23 [Rx] Follow up Appointment(s)/Referral(s): Joanna Blackbunr MD [STAFF PHYSICIAN] - 06/26/23 3:45 pm Patient Instructions/Handouts: Lysis of Abdominal Adhesions (DC) Activity/Diet/Wound Care/Special Instructions: Using antibacterial soap. No lifting over 4 pounds 4 weeks, June 14July shower. No bathtub soaks for 2 weeks, June 14 Wear abdominal binder daily for comfort except for showering. Use ice along incisions for today to prevent swelling. Discharge Disposition: HOME SELF-CARE
[2023-05-24 12:06] VITALS: BP 180/92; PULSE 69; RESP 18; TEMP 98
--- NOTE | 2023-05-24 12:36 | P.PN ---
Subjective Progress Note Date: 05/24/23 Principal diagnosis: Reason for follow-up is peridiverticular abscess and leukocytosis Patient is a 42-year-old female with a past medical history significant for hypertension seizure disorder end-stage renal disease on dialysis patient also have a complicated history of diverticulitis with perforation requiring diverting colostomy and also have a acute cholecystitis required cholecystotomy tube placement followed by cholecystectomy patient was electively admitted to the hospital for reversal of her colostomy however patient was noticed to have evidence of pelvic abscess in this patient was status post extensive lysis of adhesion and drainage of the diverticular abscess, infectious disease was consulted for management of antibiotic therapy. On today's evaluation that is 05/24/2023,the patient remains to be afebrile, patient is on room air not requiring 9supplemental oxygen and denies any shortness of breath no chest pain or cough.Patient denies having any nausea or vomiting, abdominal pain has improved did have output in her colostomy. No new labs has been obtained today, her white count was normal as of 05/22/2023 abdominal culture negative Objective - Vital Signs Vital signs: Vital Signs Temp 98.0 F 05/24/23 12:01 Pulse 69 05/24/23 12:01 Resp 18 05/24/23 12:01 BP 180/92 05/24/23 12:01 Pulse Ox 94 L 05/24/23 11:13 FiO2 Intake & Output 05/23/23 05/24/23 05/24/23 18:59 06:59 18:59 Intake Total 260 400 Output Total 2400 Balance 260 -2000 Weight 88 kg Intake: Oral 260 0 Hemodialysis 400 Output: Hemodialysis 2400 Other: Voiding Method Toilet Toilet Toilet # Voids 1 2 - Exam GENERAL DESCRIPTION: Middle-aged female lying in bed in no distress RESPIRATORY SYSTEM: Unlabored breathing , decreased breath sounds at bases HEART: S1 S2 regular rate and rhythm , ABDOMEN: Soft , no tenderness EXTREMITIES: No edema feet - Labs CBC & Chem 7: 05/22/23 14:57 05/22/23 14:57 Assessment and Plan (1) Diverticulitis of large intestine with complication Current Visit: No Status: Acute Code(s): K57.32 - DVTRCLI OF LG INT W/O PERFORATION OR ABSCESS W/O BLEEDING SNOMED Code(s): 240327596 (2) Intra-abdominal abscess Current Visit: No Status: Acute Code(s): K65.1 - PERITONEAL ABSCESS SNOMED Code(s): 55174028 Plan: 1patient with a complicated history of diverticulitis, peridiverticular abscess treated surgically in this patient who did have diabetic colostomy now admitted to the hospital for reversal of her diverting colostomy however the patient was noticed to have pelvic abscess in this patient who is status post lysis of adhesions and drainage of the pelvic abscess cultures obtained which are currently pending we will need to cover for enteric gram-negative both aerobes and anaerobes, cultures are so far negative 2-patient is afebrile the patient white count has normalized, OR abdominal culture has been negative 3-patient to finish therapy with oral Augmentin 500 mg daily for 10 days on discharge and she has been advised to follow-up with the colorectal surgeon for her surgery question concern answered Dictation was produced using [employer] dictation software. please excuse any grammatical, word or spelling errors. Time with Patient: Less than 30
--- NOTE | 2023-05-24 15:36 | P.PN ---
Subjective Progress Note Date: 05/24/23 This is a pleasant 42-year-old female who was admitted under general surgery services Dr. Blackburn who had perforated diverticulitis with sepsis and a previous peritoneal dialysis catheter approximately 6 months ago and has been undergoing hemodialysis as there was concerns of spontaneous bacterial per itonitis. Patient is scheduled for colonoscopy evaluation and colostomy reversal. Patient follows with Dr. 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 Patient also has anxiety is a former smoker and occasionally uses marijuana from the past. Patient is currently n.p.o. awaiting to go colonoscopy and surgical intervention with colostomy removal today. Will await surgical report and continue to follow. Nephrology also consulted and will be receiving hemodialysis sometime today. 05/18/2023 Patient is evaluated today on the medical floor he was taken for surgery for possible colostomy reversal. This was unable to be completed due to the finding of bilateral pelvic sigmoid diverticular abscess which were drained as well as extensive lysis of adhesions and peritoneal lavage. Patient has Prevena wound VAC closure midline. She has not had any stool from the ostomy since surgery. She reports mild abdominal pain. Patient has a maturing fistula in the left arm felt that there was no thrill present which was confirmed by nursing and vascular services was consulted. Patient had a duplex ultrasound completed of the fistula to the left arm confirming a complete thrombosis and vascular is planning on taking the patient to the OR for this on Saturday. 05/19/2023 Patient is evaluated today on the medical floor. She continues to report mild abdominal discomfort she has not had any stool yet from the ostomy. Patient is scheduled to undergo open thrombectomy tomorrow for the thrombosis to the left fistula. She continues to be dialyzed through the right chest permacath and is scheduled to undergo hemodialysis tomorrow. White count today remains elevated at 12.91, hemoglobin of 7.9. Patient sodium level is 131, creatinine has increased up to 9.9. Her magnesium is normal. Hemodynamically she is stable. 05/20/2023 Patient is seen in follow-up currently n.p.o. scheduled to undergo thrombectomy with vascular surgery for left fistula thrombosis. Patient continued on antibiotics with multiple medical consultations following admitted to general surgery services. Patient currently being taken down to preop for thrombectomy with vascular surgery and will await report. Awaiting finalized cultures to determine discharge antibiotics as well status post multiple abscesses noted in the abdomen. Ostomy reversal was canceled and patient will follow and continue with general surgery outpatient. She is currently afebrile reports some improvement in abdominal discomfort and is scheduled to receive hemodialysis again today. Nephrology is following. 05/21/2023 Patient is seen and evaluated in follow-up status post thrombectomy of the left fistula with vascular surgery. Patient received hemodialysis yesterday morning with plans on hemodialysis again on 05/22/2023 with nephrology following. Patient continues on antibiotics along with infectious disease following and admitted to general surgery awaiting on finalized cultures to determine discharge antibiotics. Patient is status post drainage of the abscess. Patient reports some tenderness of the abdomen although it is improved from previous. Patient has not been up and walking very much and will have PT/OT therapy evaluate the patient. Hemoglobin stable at 7.1 and recommend to transfuse if 7 or less. Labs ordered for a.m. 05/22/2023 Patient is seen in follow-up today receiving hemodialysis with nephrology following closely. Patient also continues on antibiotics in the form of Zosyn with infectious disease following awaiting finalized culture to determine discharge antibiotics. Cultures thus far appear negative. Patient is afebrile with no reports of chest pain or shortness of breath. Patient reports abdominal pain is slightly improved. Hemoglobin improved from yesterday as well at 7.7. Patient has been encouraged to increase activity as tolerated and continue with oral intake. Diet to be advanced per surgery. 05/23/2023 Patient is seen and evaluated in follow-up today currently sitting up in the chair being followed with multiple medical consultations. Plan is for hemodialysis tomorrow and possible discharge. Patient will be continued on IV antibiotics while inpatient and transition to oral Augmentin on discharge. Patient is tolerating diet and ostomy noted with stool. Encouraged to increase activity as tolerated. No reports of chest pain or shortness of breath patient is eager to go home. Plan for prevana wound VAC to be removed tomorrow. 05/24/2023 Patient is seen and evaluated in follow-up this morning currently receiving hemodialysis and patient is maintained on IV antibiotics and will transition to oral antibiotics on discharge with infectious disease following. Patient tolerating diet and abdominal pain is less intense and general surgery as admitting working on discharge planning today. Prevana wound VAC to be discontinued and will continue with outpatient follow-up with general surgery. Patient is afebrile denies chest pain or shortness of breath and reports is tolerating diet and would like to go home. Patient is medically stable once cleared by general surgery. Review of Systems Constitutional: Denied any fatigue denied any fever. Cardio vascular: denied any chest pain, palpitations Gastrointestinal: denied any nausea, vomiting, diarrhea Pulmonary: Denied any shortness of breath cough Neurologic denied any new focal deficits, reports some generalized weakness All inpatient medications were reviewed and appropriate changes in these medications as dictated in the interval history and assessment and plan. PHYSICAL EXAMINATION: GENERAL: The patient is alert and oriented x3, not in any acute distress. Well developed, well nourished. Obese HEENT: Pupils are round and equally reacting to light. EOMI. No scleral icterus. No conjunctival pallor. Normocephalic, atraumatic. No pharyngeal erythema. No thyromegaly. CARDIOVASCULAR: S1 and S2 present. No murmurs, rubs, or gallops. PULMONARY: Chest is clear to auscultation, no wheezing or crackles. ABDOMEN: Soft, less tender on palpation, nondistended, normoactive bowel sounds. No palpable organomegaly. Ostomy noted with stool MUSCULOSKELETAL: No joint swelling or deformity. EXTREMITIES: No cyanosis, clubbing, or pedal edema. Left arm fistula noted with a thrill NEUROLOGICAL: Gross neurological examination did not reveal any focal deficits. Diffusely weak SKIN: No rashes. Assessment: -History of perforated diverticulitis with end colostomy the plan for colostomy reversal has been aborted this admission due to multiple abscesses noted in the abdominal cavity. Patient is posoperative diagnostic laparotomy, lysis of adhesions, drainage of abscess. 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 Plan for wound VAC removal today. Patient was scheduled for colostomy reversal which was aborted as there was multiple abscesses noted. Finalized cultures are negative and will transition to oral Augmentin on discharge Patient to follow-up with general surgery outpatient regarding colostomy reversal at a later date and follow-up in the next [address] Patel. Nephrology following and receiving hemodialysis currently. Patient does have a continued permacath which is being used. Home medications reviewed and resumed as appropriate. Discussed with the patient about blood pressure as patient is currently normotensive and on the lower side and will discontinue clonidine Encouraged to increase activity as tolerated Vascular surgery following and patient is status post open thrombectomy of the fistula to the left arm We will continue to follow with general surgery during hospitalization. Thank you kindly for this consultation Patient is being discharged today. Recommend outpatient follow-up with primary care provider Dr. Keita as well. The impression and plan of care has been dictated by Loly Edgar, Nurse Practitioner as directed. Dr. Yuki MD I have performed a history and physical examination and medical decision making of this patient, discussed the same with the dictator, and agree with the dictators assessment and plan as written, documented as a scribe. Based on total visit time, I have performed more than 50% of this visit. Objective - Vital Signs Vital signs: Vital Signs Temp 98.0 F 05/24/23 12:01 Pulse 69 05/24/23 12:01 Resp 18 05/24/23 12:01 BP 180/92 05/24/23 12:01 Pulse Ox 94 L 05/24/23 11:13 FiO2 Intake & Output 05/23/23 05/24/23 05/24/23 18:59 06:59 18:59 Intake Total 260 400 Output Total 2400 Balance 260 -2000 Weight 88 kg Intake: Oral 260 0 Hemodialysis 400 Output: Hemodialysis 2400 Other: Voiding Method Toilet Toilet Toilet # Voids 1 2 - Labs CBC & Chem 7: 05/22/23 14:57 05/22/23 14:57
== END 2023-05-24 13:29 | disposition home or self-care (01) | DRG 224 ==
LOC: ORWHC2ENDO 06:41 → 4SSUR 06:41 → ORWHC2ENDO 12:23 → UNDOFXSDCSVC 05-20 15:03 → 3SCARD 05-20 15:03 → 4SSUR 05-20 16:07 → ORWHC2ENDO 05-21 04:52 → 3SCARD 05-21 04:52 → UNDOADMIN 05-21 04:53 → 3SCARD 05-21 16:22 → UNDODISIN 05-24 13:29
PROVIDERS: ADMIT Surgery Plastic and Reconstructive Surgery; ATTEND Surgery Plastic and Reconstructive Surgery
PROC: 0DJD8ZZ Inspection of Lower Intestinal Tract, Via Natural or Artificial Opening Endoscopic (ICD-10-PCS; 2023-05-16)
PROC: 0DNN0ZZ Release Sigmoid Colon, Open Approach (ICD-10-PCS; 2023-05-17)
PROC: 0W9J0ZZ Drainage of Pelvic Cavity, Open Approach (ICD-10-PCS; 2023-05-17)
PROC: 0DJD8ZZ Inspection of Lower Intestinal Tract, Via Natural or Artificial Opening Endoscopic (ICD-10-PCS; 2023-05-17)
PROC: 30233N1 Transfusion of Nonautologous Red Blood Cells into Peripheral Vein, Percutaneous Approach (ICD-10-PCS; 2023-05-17)
PROC: 5A1D70Z Performance of Urinary Filtration, Intermittent, Less than 6 Hours Per Day (ICD-10-PCS; principal; 2023-05-17 11:00)
PROC: 03C80ZZ Extirpation of Matter from Left Brachial Artery, Open Approach (ICD-10-PCS; 2023-05-20)
DX: K57.20 Diverticulitis of large intestine with perforation and abscess without bleeding (principal); T82.868A Thrombosis due to vascular prosthetic devices, implants and grafts, initial encounter; K65.1 Peritoneal abscess; N18.6 End stage renal disease; I12.0 Hypertensive chronic kidney disease with stage 5 chronic kidney disease or end stage renal disease; E66.9 Obesity, unspecified; D63.1 Anemia in chronic kidney disease; I95.9 Hypotension, unspecified; D62 Acute posthemorrhagic anemia; Z99.2 Dependence on renal dialysis; Z93.3 Colostomy status; Z53.8 Procedure and treatment not carried out for other reasons; K66.0 Peritoneal adhesions (postprocedural) (postinfection); K64.0 First degree hemorrhoids; K62.89 Other specified diseases of anus and rectum; F41.9 Anxiety disorder, unspecified; M89.8X9 Other specified disorders of bone, unspecified site; E87.5 Hyperkalemia; Y71.1 Therapeutic (nonsurgical) and rehabilitative cardiovascular devices associated with adverse incidents; Z68.30 Body mass index [BMI] 30.0-30.9, adult; Z87.11 Personal history of peptic ulcer disease; Z86.011 Personal history of benign neoplasm of the brain; Z87.891 Personal history of nicotine dependence; Z86.69 Personal history of other diseases of the nervous system and sense organs; Z87.19 Personal history of other diseases of the digestive system; Z88.7 Allergy status to serum and vaccine; Z91.048 Other nonmedicinal substance allergy status; Z88.1 Allergy status to other antibiotic agents
CPT/HCPCS: 36430; 44388; 45330; 80048; 80053; 81025; 85025; 85610; 85730; 86850; 86900; 86901; 86920; 87070; 87075; 87205; 90935

== ENCOUNTER 2023-05-25 20:47 | Inpatient (IN) | payer OTHER ==
--- NOTE | 2023-05-25 21:14 | ED ---
General Adult HPI - General Chief complaint: Abdominal Pain Stated complaint: ABD Pain Time Seen by Provider: 05/25/23 20:59 Source: patient, EMS, RN notes reviewed, old records reviewed Mode of arrival: EMS Limitations: no limitations - History of Present Illness Initial comments: 42-year-old female with complicated past medical history presenting with abdominal pain, predominantly right upper quadrant and 3 episodes of vomiting. Patient was discharged from the hospital yesterday after a laparotomy for lysis of adhesion and planned colostomy reversal. The colostomy was unable to be reversed during the surgery. Patient is on hemodialysis and receives hemodialysis through left chest wall permacath and she received hemodialysis yesterday. She has had liquid stool output today and 3 episodes of vomiting. - Related Data Home Medications Medication Instructions Recorded Confirmed Metoprolol Tartrate [Lopressor] 50 mg PO BID 11/11/21 05/16/23 Velphoro 500mg Chewable Tab 1,000 mg PO TID-W/MEALS 11/02/22 05/16/23 lisinopriL [Zestril] 20 mg PO BID 11/02/22 05/16/23 tiZANidine HCL [Zanaflex] 4 mg PO HS 11/30/22 05/16/23 Folic Acid-Vit B Complex-Vit C 1 cap PO DAILY 12/12/22 05/16/23 [Nephrocaps] Mircera(Unk) 1 dose SQ Q15D 04/29/23 05/16/23 HYDROcodone/APAP 5-325MG [[place] 1 tab PO DIRECTED PRN 05/14/23 05/16/23 5-325] Previous Rx's Medication Instructions Recorded Famotidine [Pepcid] 20 mg PO DAILY #30 tablet 11/23/22 Ondansetron [Zofran] 4 mg PO Q8HR PRN #20 tab 11/23/22 Sucralfate [Carafate] 1 gm PO AC-TID 30 Days #90 tab 12/07/22 amLODIPine [Norvasc] 10 mg PO DAILY #30 tab 12/07/22 cloNIDine HCL [Catapres] 0.1 mg PO TID #90 tab 12/07/22 hydrALAZINE HCL [Apresoline] 100 mg PO TID 30 Days #180 tab 12/07/22 Amoxic-Pot Clav 500-125 mg 1 tab PO Q24HR 14 Days #14 tab 02/22/24 [Augmentin 500-125 mg] Acetaminophen Tab [Tylenol Tab] 1,000 mg PO Q6HR PRN #30 tablet 05/24/23 Simethicone 40 mg/0.6 ml Drops 40 mg PO QID #30 ml 05/24/23 [Mylicon Drops] Allergies Allergy/AdvReac Type Severity Reaction Status Date / Time Pertussis Vaccines Allergy seizures Verified 05/20/23 13:26 iron AdvReac Severe Nausea & Verified 05/20/23 13:26 Vomiting & Diarrhea ciprofloxacin [From Cipro] AdvReac UNCONTROLLABLE Verified 05/20/23 13:26 EMOTIONS PER PT Review of Systems ROS Statement: Those systems with pertinent positive or pertinent negative responses have been documented in the HPI. ROS Other: All systems not noted in ROS Statement are negative. 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 none since then, SWOLLEN OPTICAL NERVE & RETINA, STATES VISION BLURRED AT TIMES, PSEUDO TUMOR BRAIN, HX GOUT, ANEMIA, KIDNEY FAILURE-HAS DIALYSIS fistula LUE for HEMODIALYSIS [id number] (FOCAL SEGMENTAL GLOMERULOSCLEROSIS), COLITIS, DIVERTICULITIS, BLEEDING GASTRIC ULCER, colostomy History of Any Multi-Drug Resistant Organisms: None Reported Past Surgical History: Bowel Resection, Section, Cholecystectomy Additional Past Surgical History / Comment(s): peritoneal dialysis catheter and removal, Fistual LUE., sigmoid colectomy with colostomy, percutaneous cholecystostomy tube insertion and removal, lysis of adhesions Past Anesthesia/Blood Transfusion Reactions: No Reported Reaction Past Psychological History: Anxiety Smoking Status: Former smoker Past Alcohol Use History: None Reported, Occasional Past Drug Use History: Marijuana - Past Family History Father Family Medical History: Myocardial Infarction ([place]) Additional Family Medical History / Comment(s): FATHER AT AGE 35 OF MASSIVE HEART ATTACK Mother Family Medical History: Cancer, Deep Vein Thrombosis (DVT) Additional Family Medical History / Comment(s): SKIN CANCER General Exam Limitations: no limitations General appearance: alert, in no apparent distress Head exam: Present: atraumatic, normocephalic Eye exam: Present: normal appearance, PERRL ENT exam: Present: normal exam Neck exam: Present: normal inspection. Absent: tenderness, meningismus Respiratory exam: Present: normal lung sounds bilaterally. Absent: respiratory distress, wheezes Cardiovascular Exam: Present: regular rate, normal rhythm GI/Abdominal exam: Present: distended, tenderness, other (Dressing clean dry and intact) Neurological exam: Present: alert, oriented X3, CN II-XII intact. Absent: motor sensory deficit Skin exam: Present: warm, dry, intact. Absent: cyanosis, diaphoretic Course Vital Signs 05/25/23 05/25/23 20:50 22:06 Temperature 98.1 F Pulse Rate 69 73 Respiratory 16 16 Rate Blood Pressure 194/101 187/102 O2 Sat by Pulse 98 96 Oximetry Medical Decision Making - Medical Decision Making Was pt. sent in by a medical professional or institution (, PA, OUTPATIENT INTERVIEWING CLERK, urgent care, hospital, or care home...) When possible be specific @ -No Did you speak to anyone other than the patient for history (EMS, parent, family, police, friend...)? What history was obtained from this source @ -No Did you review nursing and triage notes (agree or disagree)? Why? @ -I reviewed and agree with nursing and triage notes Were old charts reviewed (outside hosp., previous admission, EMS record, old EKG, old radiological studies, urgent care reports/EKG's, care home records)? Report findings @ -No old charts were reviewed Differential Diagnosis (chest pain, altered mental status, abdominal pain women, abdominal pain men, vaginal bleeding, weakness, fever, dyspnea, syncope, headache, dizziness, GI bleed, back pain, seizure, CVA, palpatations, mental health, musculoskeletal)? @ -Differential Abdominal Pain Men: Appendicitis, cholecystitis, diverticulosis, ischemic bowel, pancreatitis, hepatitis, UTI, gastroenteritis, AAA, incarcerated hernia, bowel obstruction, constipation, inflammatory bowel, hepatitis, peptic ulcer disease, splenic infarction, perforated viscus, testicular torsion, this is not meant to be an all-inclusive list EKG interpreted by me (3pts min.). @ -As above X-rays interpreted by me (1pt min.). @ -None done CT interpreted by me (1pt min.). @ -CT abdomen pelvis negative for bowel obstruction, showing mesenteric edema and likely postoperative changes in the anterior abdominal wall. U/S interpreted by me (1pt. min.). @ -None done What testing was considered but not performed or refused? (CT, X-rays, U/S, labs)? Why? @ -None What meds were considered but not given or refused? Why? @ -None Did you discuss the management of the patient with other professionals (professionals i.e. , PA, OUTPATIENT INTERVIEWING CLERK, lab, RT, psych nurse, social media sr strategy manager, legger press operator, teacher, digital controls technical officer, rehabilitation caseworker)? Give summary @ -[EMH Was smoking cessation discussed for >3mins.? @ -No Was critical care preformed (if so, how long)? @ -No Were there social determinants of health that impacted care today? How? (Homelessness, low income, unemployed, alcoholism, drug addiction, trans portation, low edu. Level, literacy, decrease access to med. care, retirement, rehab)? @ -No Was there de-escalation of care discussed even if they declined (Discuss DNR or withdrawal of care, Hospice)? DNR status @ -No What co-morbidities impacted this encounter? (DM, HTN, Smoking, COPD, CAD, Cancer, CVA, ARF, Chemo, Hep., AIDS, mental health diagnosis, sleep apnea, morbid obesity)? @ -[End-stage renal disease, 8 days postop laparotomy with lysis of adhesions Was patient admitted / discharged? Hospital course, mention meds given and route, prescriptions, significant lab abnormalities, going to OR and other pertinent info. @ -42-year-old female presenting with abdominal pain vomiting. Patient is hypertensive with history of end-stage renal disease. She received hemodialysis yesterday. She does not appear fluid overloaded. She does have a tender abdomen. Laboratory testing and CT are obtained in the emergency department. She has an elevated white blood cell count at 17 and an improved anemia with hemoglobin 9.9. She has a normal lactic acid. Patient has CT showing bowel edema and phlegmon change in the anterior abdominal wall. Patient is afebrile and has normal lactic acid but has elevated white blood cell count at 17. She is covered with IV antibiotics, blood cultures are obtained prior to antibiotic administration. She will be admitted to internal medicine with both nephrology and her general surgeon on consult. Undiagnosed new problem with uncertain prognosis? @ -[No Drug Therapy requiring intensive monitoring for toxicity (Heparin, Nitro, Insulin, Cardizem)? @ -No Were any procedures done? @ -No Diagnosis/symptom? @ -[Abdominal pain, nausea vomiting, leukocytosis Acute, or Chronic, or Acute on Chronic? @ -Acute Uncomplicated (without systemic symptoms) or Complicated (systemic symptoms)? @ -Complicated Side effects of treatment? @ -No Exacerbation, Progression, or Severe Exacerbation? @ -No Poses a threat to life or bodily function? How? (Chest pain, [place], [place], pneumonia, PE, COPD, DKA, ARF, appy, cholecystitis, CVA, Diverticulitis, Homicidal, [place] icidal, threat to staff... and all critical care pts) @ -[Yes, sepsis - Lab Data Result diagrams: 05/25/23 21:17 05/25/23 21:17 Lab Results 05/25/23 05/25/23 05/25/23 Range/Units 21:17 21:17 21:17 WBC 17.7 H (3.8-10.6) k/uL RBC 3.32 L (3.80-5.40) m/uL Hgb 9.9 L D (11.4-16.0) gm/dL Hct 30.4 L (34.0-46.0) % MCV 91.5 (80.0-100.0) fL MCH 29.9 (25.0-35.0) pg MCHC 32.6 (31.0-37.0) g/dL RDW 17.6 H (11.5-15.5) % Plt Count 327 (150-450) k/uL MPV 7.9 Neutrophils % 90 % Lymphocytes % 4 % Monocytes % 2 % Eosinophils % 1 % Basophils % 0 % Neutrophils # 16.0 H (1.3-7.7) k/uL Lymphocytes # 0.7 L (1.0-4.8) k/uL Monocytes # 0.3 (0-1.0) k/uL Eosinophils # 0.2 (0-0.7) k/uL Basophils # 0.1 (0-0.2) k/uL Hypochromasia Slight Anisocytosis Slight PT 10.2 (10.0-12.5) sec INR 0.9 (<1.2) APTT 23.7 (22.0-30.0) sec Sodium 136 L (137-145) mmol/L Potassium 4.0 (3.5-5.1) mmol/L Chloride 102 (98-107) mmol/L Carbon Dioxide 23 (22-30) mmol/L Anion Gap 11 mmol/L BUN 33 H (7-17) mg/dL Creatinine 7.68 H* (0.52-1.04) mg/dL Est GFR (CKD-EPI)AfAm 7 (>60 ml/min/1.73 sqM) Est GFR (CKD-EPI)NonAf 6 (>60 ml/min/1.73 sqM) Glucose 108 H (74-99) mg/dL Plasma Lactic Acid Jame (0.7-2.0) mmol/L Calcium 8.8 (8.4-10.2) mg/dL Total Bilirubin 0.5 (0.2-1.3) mg/dL AST 35 (14-36) U/L ALT 15 (4-34) U/L Alkaline Phosphatase 153 H (38-126) U/L Total Protein 6.0 L (6.3-8.2) g/dL Albumin 3.4 L (3.5-5.0) g/dL Lipase 169 (23-300) U/L 05/25/23 Range/Units 21:17 WBC (3.8-10.6) k/uL RBC (3.80-5.40) m/uL Hgb (11.4-16.0) gm/dL Hct (34.0-46.0) % MCV (80.0-100.0) fL MCH (25.0-35.0) pg MCHC (31.0-37.0) g/dL RDW (11.5-15.5) % Plt Count (150-450) k/uL MPV Neutrophils % % Lymphocytes % % Monocytes % % Eosinophils % % Basophils % % Neutrophils # (1.3-7.7) k/uL Lymphocytes # (1.0-4.8) k/uL Monocytes # (0-1.0) k/uL Eosinophils # (0-0.7) k/uL Basophils # (0-0.2) k/uL Hypochromasia Anisocytosis PT (10.0-12.5) sec INR (<1.2) APTT (22.0-30.0) sec Sodium (137-145) mmol/L Potassium (3.5-5.1) mmol/L Chloride (98-107) mmol/L Carbon Dioxide (22-30) mmol/L Anion Gap mmol/L BUN (7-17) mg/dL Creatinine (0.52-1.04) mg/dL Est GFR (CKD-EPI)AfAm (>60 ml/min/1.73 sqM) Est GFR (CKD-EPI)NonAf (>60 ml/min/1.73 sqM) Glucose (74-99) mg/dL Plasma Lactic Acid Jame 1.1 (0.7-2.0) mmol/L Calcium (8.4-10.2) mg/dL Total Bilirubin (0.2-1.3) mg/dL AST (14-36) U/L ALT (4-34) U/L Alkaline Phosphatase (38-126) U/L Total Protein (6.3-8.2) g/dL Albumin (3.5-5.0) g/dL Lipase (23-300) U/L Disposition Clinical Impression: Leukocytosis, ESRD on dialysis, Abdominal pain Disposition: ADMITTED IP TO THIS [facility] Condition: Stable Is patient prescribed a controlled substance at d/c from ED?: No Referrals: Alia Keita MD [Primary Care Provider] - 1-2 days Time of Disposition: 22:30
[2023-05-25] MEDS: HYDROmorphone 1 MG/ML 1 ML SYRINGE IVP STA (21:15)
[2023-05-25 21:26] LABS: Anisocytosis Slight; Basophils # (A) 0.1 k/uL (0-0.2); Basophils % (A) 0 %; Eosinophils # (A) 0.2 k/uL (0-0.7); Eosinophils % (A) 1 %; HCT 30.4 % (34.0-46.0); Hypochromasia Slight; Lymphocytes # (A) 0.7 k/uL (1.0-4.8); Lymphocytes % (A) 4 %; MCH 29.9 pg (25.0-35.0); MCHC 32.6 g/dL (31.0-37.0); MCV 91.5 fL (80.0-100.0); Mean Platelet Volume 7.9; Monocytes # (A) 0.3 k/uL (0-1.0); Monocytes % (A) 2 %; Neutrophils % (A) 90 %; Platelet Count 327 k/uL (150-450); RBC 3.32 m/uL (3.80-5.40); RDW 17.6 % (11.5-15.5); WBC 17.7 k/uL (3.8-10.6)
[2023-05-25 21:34] LABS: INR 0.9 (<1.2); Partial Thromboplastin Time 23.7 sec (22.0-30.0); Prothrombin Time 10.2 sec (10.0-12.5)
[2023-05-25 21:36] LABS: ALT 15 U/L (4-34); AST 35 U/L (14-36); African American GFR (CKD) 7 (>60 ml/min/1.73 sqM); Albumin 3.4 g/dL (3.5-5.0); Alkaline Phosphatase 153 U/L (38-126); Anion Gap 11 mmol/L; Blood Urea Nitrogen 33 mg/dL (7-17); Calcium 8.8 mg/dL (8.4-10.2); Carbon Dioxide 23 mmol/L (22-30); Chloride 102 mmol/L (98-107); Glucose 108 mg/dL (74-99); Lipase 169 U/L (23-300); Non-African American GFR(CKD) 6 (>60 ml/min/1.73 sqM); Sodium 136 mmol/L (137-145); Total Bilirubin 0.5 mg/dL (0.2-1.3)
[2023-05-25 22:01] LABS: HGB 9.9 gm/dL (11.4-16.0)
--- NOTE | 2023-05-25 22:13 | CT ---
EXAMINATION TYPE: CT abdomen pelvis wo con CT DLP: 702.6 mGycm, Automated exposure control for dose reduction was used. DATE OF EXAM: 05/25/2023 9:35 PM COMPARISON: 12/18/2022 CLINICAL INDICATION:Female, 42 years old with history of abdominal pain; abdominal pain TECHNIQUE: Axial CT abdomen pelvis wo con;Sagittal and coronal reformats were created on a separate workstation. Contrast used: mL of , (none if empty) Oral contrast used: without Oral Contrast (none if empty) FINDINGS: LOWER CHEST: Atherosclerosis of the coronary arteries. Potential venous catheter partially visualized . ABDOMEN LIVER: Unremarkable GALLBLADDER AND BILE DUCTS: Unremarkable. PANCREAS: Unremarkable. SPLEEN: Unremarkable. ADRENAL GLANDS: Unremarkable. KIDNEYS AND URETERS: Atrophic kidneys. Nonobstructing calculi bilaterally. PELVIS BLADDER: Unremarkable REPRODUCTIVE: There is a tampon in the vagina.e ABDOMEN & PELVIS STOMACH AND BOWEL: No evidence of bowel obstruction. Mesenteric edema throughout the abdomen througho ut multiple loops of small bowel present. Left abdominal ostomy present. 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 N o definitive evidence for obstruction. PERITONEUM/RETROPERITONEUM: Multiple foci of gas are seen just superior to the uterus felt to be with in bowel loops. There was drainage catheter in this region on prior. VASCULATURE: No evidence of aortic aneurysm. MUSCULOSKELETAL: No acute osseous abnormalities LYMPH NODES: No gross evidence for lymphadenopathy. SOFT TISSUE/ABDOMINAL WALL: Postsurgical changes anterior abdominal wall with skin heike present. S mall fluid collection subcutaneous tissues along the surgical bed present on 201 image 80 measuring 2 8 x 24 mm. IMPRESSION: 1. There is postsurgical changes to the bowel. Mesenteric edema is present and following a majority of the loops of small bowel. One loop of bowel is in a parastomal hernia in the left abdomen and has circumferential wall thickening. Correlate with lactic acid to exclude ischemia. If this concern for obstruction consider dedicated small bowel follow-through. The mesenteric edema is new from exam on . Additional consideration for enteritis could be considered. Consider CT examination with or al contrast for better evaluation of the bowel loops. 2. Phlegmonous change along the anterior abdominal wall surgical access site particularly at the inf erior aspect with possible early abscess formation. This can be better evaluated with ultrasound if c linically warranted.
[2023-05-25] MEDS ORDERED: NALOXONE 0.4 MG/ML 1 ML VIAL IV PRN (22:19)
[2023-05-25] MEDS: PIPERACILLIN-TAZOBACTAM 3.375 GM in SODIUM CHLORIDE 0.9% 100 ML IVPB STA (23:05)
[2023-05-25] MEDS: SODIUM CHLORIDE 0.9% 1,000 ML IV SCH (23:06)
[2023-05-25] MEDS: ONDANSETRON 4 MG/2 ML VIAL IVP STA (23:50)
[2023-05-26] MEDS: HYDROmorphone 0.5 MG/0.5 ML SYRINGE IVP PRN (02:00)
[2023-05-26] MEDS: PIPERACILLIN-TAZOBACTAM 3.375 GM in SODIUM CHLORIDE 0.9% 100 ML IVPB SCH (06:47)
[2023-05-26] MEDS ORDERED: PIPERACILLIN-TAZOBACTAM 3.375 GM in SODIUM CHLORIDE 0.9% 100 ML IVPB SCH (07:00)
--- NOTE | 2023-05-26 10:56 | P.NPCON ---
History of Present Illness - Reason for Consult end stage renal disease - History of Present Illness Patient is a 42-year-old female with end-stage renal disease on hemodialysis on a Saturday schedule. Patient was discharged on 05/24/2023 after hemodialysis and she returns 1 day later with complaints of abdominal pain which progressively got worse. This was associated with nausea vomiting and diarrhea as well. CT of the abdomen shows abdominal abscess. Currently awaiting surgical evaluation. No nausea or vomiting today. Review of Systems As per HPI 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 none since then, SWOLLEN OPTICAL NERVE & RETINA, STATES VISION BLURRED AT TIMES, PSEUDO TUMOR BRAIN, HX GOUT, ANEMIA, KIDNEY FAILURE-HAS DIALYSIS fistula LUE for HEMODIALYSIS [id number] FSGS (FOCAL SEGMENTAL GLOMERULOSCLEROSIS), COLITIS, DIVERTICULITIS, BLEEDING GASTRIC ULCER, colostomy History of Any Multi-Drug Resistant Organisms: None Reported Past Surgical History: Bowel Resection, Section, Cholecystectomy Additional Past Surgical History / Comment(s): peritoneal dialysis catheter and removal, Fistual LUE., sigmoid colectomy with colostomy, percutaneous cholecystostomy tube insertion and removal, lysis of adhesions Past Anesthesia/Blood Transfusion Reactions: No Reported Reaction Past Psychological History: Anxiety Additional Psychological History / Comment(s): CURRENT ANXIETY Smoking Status: Former smoker Past Alcohol Use History: None Reported, Occasional Additional Past Alcohol Use History / Comment(s): QUIT SMOKING 2001, SMOKED 1/2 PPD, SMOKED 3 YEARS. Past Drug Use History: Marijuana Additional Drug Use History / Comment(s): Gummies. for sleep and pain. Pt aware not to use 24 hrs before procedure - Past Family History Father Family Medical History: Myocardial Infarction ([place]) Additional Family Medical History / Comment(s): FATHER AT AGE 35 OF MASSIVE HEART ATTACK Mother Family Medical History: Cancer, Deep Vein Thrombosis (DVT) Additional Family Medical History / Comment(s): SKIN CANCER Medications and Allergies Home Medications Medication Instructions Recorded Confirmed Type Metoprolol Tartrate [Lopressor] 50 mg PO BID 11/11/21 05/16/23 History Velphoro 500mg Chewable Tab 1,000 mg PO TID-W/MEALS 11/02/22 05/16/23 History lisinopriL [Zestril] 20 mg PO BID 11/02/22 05/16/23 History Famotidine [Pepcid] 20 mg PO DAILY #30 tablet 11/23/22 05/16/23 Rx Ondansetron [Zofran] 4 mg PO Q8HR PRN #20 tab 11/23/22 05/16/23 Rx tiZANidine HCL [Zanaflex] 4 mg PO HS 11/30/22 05/16/23 History Sucralfate [Carafate] 1 gm PO AC-TID 30 Days #90 tab 12/07/22 05/16/23 Rx amLODIPine [Norvasc] 10 mg PO DAILY #30 tab 12/07/22 05/16/23 Rx cloNIDine HCL [Catapres] 0.1 mg PO TID #90 tab 12/07/22 05/16/23 Rx hydrALAZINE HCL [Apresoline] 100 mg PO TID 30 Days #180 tab 12/07/22 05/16/23 Rx Folic Acid-Vit B Complex-Vit C 1 cap PO DAILY 12/12/22 05/16/23 History [Nephrocaps] Mircera(Unk) 1 dose SQ Q15D 04/29/23 05/16/23 History HYDROcodone/APAP 5-325MG [[place] 1 tab PO DIRECTED PRN 05/14/23 05/16/23 History 5-325] Amoxic-Pot Clav 500-125 mg 1 tab PO Q24HR 14 Days #14 tab 05/23/23 Rx [Augmentin 500-125 mg] Acetaminophen Tab [Tylenol Tab] 1,000 mg PO Q6HR PRN #30 tablet 05/24/23 Rx Simethicone 40 mg/0.6 ml Drops 40 mg PO QID #30 ml 05/24/23 Rx [Mylicon Drops] Allergies Allergy/AdvReac Type Severity Reaction Status Date / Time Pertussis Vaccines Allergy seizures Verified 05/20/23 13:26 iron AdvReac Severe Nausea & Verified 05/20/23 13:26 Vomiting & Diarrhea ciprofloxacin [From Cipro] AdvReac UNCONTROLLABLE Verified 05/20/23 13:26 EMOTIONS PER PT Physical Exam Vitals: Vital Signs Temp Pulse Pulse Resp BP BP Pulse Ox 05/26/23 08:00 98.2 F 84 14 179/95 95 05/26/23 04:00 98 F 79 16 163/92 96 02/25/24 01:27 98 F 66 16 174/97 98 05/26/23 01:10 80 05/26/23 01:01 73 18 161/98 96 05/26/23 00:00 78 16 171/109 94 L 05/25/23 22:32 98 F 66 16 174/97 98 05/25/23 22:06 73 16 187/102 96 05/25/23 20:50 98.1 F 69 16 194/101 98 Intake and Output 05/25/23 05/26/23 05/26/23 22:59 06:59 14:59 Other: Weight 86.183 kg Patient is awake, comfortable, no acute distress Examination of the heart S1 and S2 Examination of the lungs bilateral breath sounds are heard Abdomen is soft mild tenderness noted, colostomy Examination of lower extremities shows no significant edema 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 End-stage renal disease maintained on hemodialysis on Saturday schedule. Access Left IJ Permcath, thrombosed left arm AVG, status post thrombectomy on 05/20/2023. 2. Hypertension with chronic kidney disease. Stable. 3. Chronic kidney disease mineral bone disease- on Velphoro 4. Anemia of chronic kidney disease. On Aranesp. 5. History of perforated diverticulitis with pelvic abscess s/p colostomy. s/p Ex-lap with lysis of adhesions on 05/17/2023 during her last admission. Readmitted with worsening abdominal pain, awaiting surgical evaluation Plan: Hemodialysis in a.m. Continue with Aranesp Continue with antibiotics.
[2023-05-26] MEDS ORDERED: ACETAMINOPHEN TAB 500 MG TAB PO PRN (12:09)
--- NOTE | 2023-05-26 12:14 | P.HPIM ---
History of Present Illness H&P Date: 05/26/23 This is a 42-year-old female with extensive surgical history including complicated ruptured diverticulitis 6 months ago. Patient has had acute cholecystitis requiring open cholecystectomy with intra-abdominal sepsis and prolonged antibiotics postoperatively. Patient underwent a diagnostic laparosco py with extensive lysis of adhesions with a aborted open colostomy reversal and was just discharged from the hospital 2 days prior on the . Patient also with history of end-stage renal disease maintained on hemodialysis through a right chest permacath. 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 Patient was discharged home on 7 days of oral Augmentin therapy. Patient returns due to right upper quadrant abdominal discomfort and multiple episodes of vomiting and liquid stool from the ostomy. States she feels like her insides are being twisted. underwent a CT of the abdomen pelvis showing a phlegmonous change along the anterior abdominal wall surgical access site to correlate for early abscess formation. There is mesenteric edema and possibly enteritis. She was admitted to the hospital under medicine with a general surgical consultation patient was started on IV antibiotic therapy with IV Zosyn. Nephrology has been consulted to manage dialy sis. His white blood cell count is elevated at 17.7, hemoglobin 9.9, BUN and creatinine are elevated consistent with end-stage renal disease. REVIEW OF SYSTEMS: CONSTITUTIONAL: No fever, no malaise, no fatigue. HEENT: No recent visual problems or hearing problems. Denied any sore throat. CARDIOVASCULAR: No chest pain, orthopnea, PND, no palpitations, no syncope. PULMONARY: No shortness of breath, no cough, no hemoptysis. GASTROINTESTINAL: Reports abdominal pain, nausea, vomiting and liquid stool. NEUROLOGICAL: No headaches, no weakness, no numbness. HEMATOLOGICAL: Denies any bleeding or petechiae. GENITOURINARY: Denies any burning micturition, frequency, or urgency. MUSCULOSKELETAL/RHEUMATOLOGICAL: Denies any joint pain, swelling, or any muscle pain. ENDOCRINE: Denies any polyuria or polydipsia. The rest of the 14-point review of systems is negative. PHYSICAL EXAMINATION: GENERAL: The patient is alert and oriented x3, not in any acute distress. Well developed, well nourished. HEENT: Pupils are round and equally reacting to light. EOMI. No scleral icterus. No conjunctival pallor. Normocephalic, atraumatic. No pharyngeal erythema. No thyromegaly. CARDIOVASCULAR: S1 and S2 present. No murmurs, rubs, or gallops. PULMONARY: Chest is clear to auscultation, no wheezing or crackles. ABDOMEN: Soft, nontender, nondistended, normoactive bowel sounds. No palpable organomegaly. Ostomy present LLQ with no stool in the bag. MUSCULOSKELETAL: No joint swelling or deformity. EXTREMITIES: No cyanosis, clubbing, or pedal edema. NEUROLOGICAL: Gross neurological examination did not reveal any focal deficits. SKIN: No rashes. Assessment and plan -Nausea vomiting and diarrhea possibly from enteritis noted on CT scan. Continue with symptomatic care with IV zofran. -Concern for early abscess formation near abdominal wall surgical site started on IV zosyn. General surgery has been consulted. -History of perforated diverticulitis with end colostomy, aborted ostomy r eversal due to multiple abscess in the abdominal cavity/ Patient is posoperative diagnostic laparotomy, lysis of adhesions, drainage of abscess. Discharged on 05/24/23 with 7 days of oral augmentin. -Previous history of peritoneal dialysis with spontaneous bacterial peritonitis and catheter was removed -Renal disease with end-stage renal disease and maintained on hemodialysis Saturday/Saturday/Saturday, nephrology on consultation for management -Thrombosed loop graft to the left arm patient is status post thrombectomy on 05/20/2023 -Hypertension history -History of focal segmental glomerulosclerosis -History of diverticulitis and colitis -History of bleeding gastric ulcers -History of pseudotumor on the brain -History of anxiety -Former smoker Obesity with a BMI of 30.4 GI prophylaxis DVT prophylaxis Full code The impression and plan of care has been dictated by Nurse Lacey Workman as directed. Dr. Yuki MD I have performed a history and physical examination and medical decision making of this patient, discussed the same with the dictator, and agree with the dictators assessment and plan as written, documented as a scribe. Based on total visit time, I have performed more than 50% of this visit. 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 none since then, SWOLLEN OPTICAL NERVE & RETINA, STATES VISION BLURRED AT TIMES, PSEUDO TUMOR BRAIN, HX GOUT, ANEMIA, KIDNEY FAILURE-HAS DIALYSIS fistula LUE for HEMODIALYSIS -HX FSGS (FOCAL SEGMENTAL GLOMERULOSCLEROSIS), COLITIS, DIVERTICULITIS, BLEEDING GASTRIC ULCER, colostomy History of Any Multi-Drug Resistant Organisms: None Reported Past Surgical History: Bowel Resection, Section, Cholecystectomy Additional Past Surgical History / Comment(s): peritoneal dialysis catheter and removal, Fistual LUE., sigmoid colectomy with colostomy, percutaneous cholecystostomy tube insertion and removal, lysis of adhesions Past Anesthesia/Blood Transfusion Reactions: No Reported Reaction Past Psychological History: Anxiety Additional Psychological History / Comment(s): CURRENT ANXIETY Smoking Status: Former smoker Past Alcohol Use History: None Reported, Occasional Additional Past Alcohol Use History / Comment(s): QUIT SMOKING 2001, SMOKED 1/2 PPD, SMOKED 3 YEARS. Past Drug Use History: Marijuana Additional Drug Use History / Comment(s): Gummies. for sleep and pain. Pt aware not to use 24 hrs before procedure - Past Family History Father Family Medical History: Myocardial Infarction ([place]) Additional Family Medical History / Comment(s): FATHER AT AGE 35 OF MASSIVE HEART ATTACK Mother Family Medical History: Cancer, Deep Vein Thrombosis (DVT) Additional Family Medical History / Comment(s): SKIN CANCER Medications and Allergies Home Medications Medication Instructions Recorded Confirmed Type Metoprolol Tartrate [Lopressor] 50 mg PO BID 11/11/21 05/26/23 History Famotidine [Pepcid] 20 mg PO DAILY #30 tablet 11/23/22 05/26/23 Rx Ondansetron [Zofran] 4 mg PO Q8HR PRN #20 tab 11/23/22 05/26/23 Rx tiZANidine HCL [Zanaflex] 4 mg PO HS 11/30/22 05/26/23 History Sucralfate [Carafate] 1 gm PO AC-TID 30 Days #90 tab 12/07/22 05/26/23 Rx amLODIPine [Norvasc] 10 mg PO DAILY #30 tab 12/07/22 05/26/23 Rx cloNIDine HCL [Catapres] 0.1 mg PO TID #90 tab 12/07/22 05/26/23 Rx Folic Acid-Vit B Complex-Vit C 1 cap PO DAILY 12/12/22 05/26/23 History [Nephrocaps] Mircera(Unk) 1 dose SQ Q15D 04/29/23 05/26/23 History HYDROcodone/APAP 5-325MG [[place] 1 tab PO Q6H PRN 05/14/23 05/26/23 History 5-325] Amoxic-Pot Clav 500-125 mg 1 tab PO Q24HR 14 Days #14 tab 05/23/23 05/26/23 Rx [Augmentin 500-125 mg] Acetaminophen Tab [Tylenol Tab] 1,000 mg PO Q6HR PRN #30 tablet 05/24/23 05/26/23 Rx Simethicone 40 mg/0.6 ml Drops 40 mg PO QID #30 ml 05/24/23 05/26/23 Rx [Mylicon Drops] Sucroferric Oxyhydroxide [Velphoro] 1,000 mg PO TID-W/MEALS 05/26/23 05/26/23 History hydrALAZINE HCL [Apresoline] 100 mg PO TID 05/26/23 05/26/23 History lisinopriL [Zestril] 20 mg PO BID 05/26/23 05/26/23 History Allergies Allergy/AdvReac Type Severity Reaction Status Date / Time Pertussis Vaccines Allergy seizures Verified 05/26/23 12:00 iron AdvReac Severe Nausea & Verified 05/26/23 12:00 Vomiting & Diarrhea ciprofloxacin [From Cipro] AdvReac UNCONTROLLABLE Verified 05/26/23 12:00 EMOTIONS PER PT Physical Exam Vitals: Vital Signs Temp Pulse Pulse Resp BP BP Pulse Ox 05/26/23 04:00 98 F 79 16 163/92 96 05/26/23 01:27 98 F 66 16 174/97 98 05/26/23 01:10 80 05/26/23 01:01 73 18 161/98 96 05/26/23 00:00 78 16 171/109 94 L 05/25/23 22:32 98 F 66 16 174/97 98 05/25/23 22:06 73 16 187/102 96 05/25/23 20:50 98.1 F 69 16 194/101 98 Intake and Output 05/25/23 05/26/23 05/26/23 22:59 06:59 14:59 Other: Weight 86.183 kg Results CBC & Chem 7: 05/25/23 21:17 05/25/23 21:17 Labs: Abnormal Lab Results - Last 24 Hours (Table) 05/25/23 05/25/23 Range/Units 21:17 21:17 WBC 17.7 H (3.8-10.6) k/uL RBC 3.32 L (3.80-5.40) m/uL Hgb 9.9 L D (11.4-16.0) gm/dL Hct 30.4 L (34.0-46.0) % RDW 17.6 H (11.5-15.5) % Neutrophils # 16.0 H (1.3-7.7) k/uL Lymphocytes # 0.7 L (1.0-4.8) k/uL Sodium 136 L (137-145) mmol/L BUN 33 H (7-17) mg/dL Creatinine 7.68 H* (0.52-1.04) mg/dL Glucose 108 H (74-99) mg/dL Alkaline Phosphatase 153 H (38-126) U/L Total Protein 6.0 L (6.3-8.2) g/dL Albumin 3.4 L (3.5-5.0) g/dL Thrombosis Risk Factor Assmnt - Choose All That Apply Any of the Below Risk Factors Present?: Yes Each Factor Represents 1 point: Age 41-60 years Other Risk Factors: Yes Each Risk Factor Represents 2 Points: Laparoscopic surgery Other congenital or acquired thrombophilia - If yes, enter type in comment: No Thrombosis Risk Factor Assessment Total Risk Factor Score: 3 Thrombosis Risk Factor Assessment Level: Moderate Risk Assessment and Plan Time with Patient: Less than 30
--- NOTE | 2023-05-26 13:01 | P.GSCN ---
History of Present Illness Consult date: 05/26/23 History of present illness: Patient recently discharged following extensive lysis of adhesions for attempted colostomy reversal. Presence of foci of peritoneal abscess. Incidentally, patient is also status post revision of her AV fistula of the left arm. She reports doing quite well. At home she had a stirfry with green peppers send subsequent developed abdominal pain epigastric. "It feels like my gallbladder attack.". She denies any left lower quadrant pain. She denies any lower abdominal pain. All of her discomfort is of the upper abdomen. She has perso nal history of gastric ulcers. Recommend upper endoscopy due to gastric ulcers, anemia, epigastric pain. Additionally may have liquid diet. No infection or drainage on incision. CT consistent with postsurgical changes. Additionally findings of parastomal hernia with patient's massive intentional weight loss. Parastomal hernia easily reducible. Recommend avoiding high-fiber diet as symptoms elicited by high-fiber foods. Also avoid foods that may trigger diverticulitis. 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 none since then, SWOLLEN OPTICAL NERVE & RETINA, STATES VISION BLURRED AT TIMES, PSEUDO TUMOR BRAIN, HX GOUT, ANEMIA, KIDNEY FAILURE-HAS DIALYSIS fistula LUE for HEMODIALYSIS -HX FSGS (FOCAL SEGMENTAL GLOMERULOSCLEROSIS), COLITIS, DIVERTICULITIS, BLEEDING GASTRIC ULCER, colostomy History of Any Multi-Drug Resistant Organisms: None Reported Past Surgical History: Bowel Resection, Section, Cholecystectomy Additional Past Surgical History / Comment(s): peritoneal dialysis catheter and removal, Fistual LUE., sigmoid colectomy with colostomy, percutaneous cholecystostomy tube insertion and removal, lysis of adhesions Past Anesthesia/Blood Transfusion Reactions: No Reported Reaction Past Psychological History: Anxiety Additional Psychological History / Comment(s): CURRENT ANXIETY Smoking Status: Former smoker Past Alcohol Use History: None Reported, Occasional Additional Past Alcohol Use History / Comment(s): QUIT SMOKING 2001, SMOKED 1/2 PPD, SMOKED 3 YEARS. Past Drug Use History: Marijuana Additional Drug Use History / Comment(s): Gummies. for sleep and pain. Pt aware not to use 24 hrs before procedure - Past Family History Father Family Medical History: Myocardial Infarction ([place]) Additional Family Medical History / Comment(s): FATHER AT AGE 35 OF MASSIVE HEART ATTACK Mother Family Medical History: Cancer, Deep Vein Thrombosis (DVT) Additional Family Medical History / Comment(s): SKIN CANCER Medications and Allergies Home Medications Medication Instructions Recorded Confirmed Type Metoprolol Tartrate [Lopressor] 50 mg PO BID 11/11/21 05/26/23 History Famotidine [Pepcid] 20 mg PO DAILY #30 tablet 11/23/22 05/26/23 Rx Ondansetron [Zofran] 4 mg PO Q8HR PRN #20 tab 11/23/22 05/26/23 Rx tiZANidine HCL [Zanaflex] 4 mg PO HS 11/30/22 05/26/23 History Sucralfate [Carafate] 1 gm PO AC-TID 30 Days #90 tab 12/07/22 05/26/23 Rx amLODIPine [Norvasc] 10 mg PO DAILY #30 tab 12/07/22 05/26/23 Rx cloNIDine HCL [Catapres] 0.1 mg PO TID #90 tab 12/07/22 05/26/23 Rx Folic Acid-Vit B Complex-Vit C 1 cap PO DAILY 12/12/22 05/26/23 History [Nephrocaps] Mircera(Unk) 1 dose SQ Q15D 04/29/23 05/26/23 History HYDROcodone/APAP 5-325MG [[place] 1 tab PO Q6H PRN 05/14/23 05/26/23 History 5-325] Amoxic-Pot Clav 500-125 mg 1 tab PO Q24HR 14 Days #14 tab 05/23/23 05/26/23 Rx [Augmentin 500-125 mg] Acetaminophen Tab [Tylenol Tab] 1,000 mg PO Q6HR PRN #30 tablet 05/24/23 0 05/26/23 Rx Simethicone 40 mg/0.6 ml Drops 40 mg PO QID #30 ml 05/24/23 05/26/23 Rx [Mylicon Drops] Sucroferric Oxyhydroxide [Velphoro] 1,000 mg PO TID-W/MEALS 05/26/23 05/26/23 History hydrALAZINE HCL [Apresoline] 100 mg PO TID 05/26/23 05/26/23 History lisinopriL [Zestril] 20 mg PO BID 05/26/23 05/26/23 History Allergies Allergy/AdvReac Type Severity Reaction Status Date / Time Pertussis Vaccines Allergy seizures Verified 05/26/23 12:00 iron AdvReac Severe Nausea & Verified 05/26/23 12:00 Vomiting & Diarrhea ciprofloxacin [From Cipro] AdvReac UNCONTROLLABLE Verified 05/26/23 12:00 EMOTIONS PER PT Surgical - Exam Vital Signs Temp Pulse Resp BP Pulse Ox 98.1 F 69 16 194/101 98 05/25/23 20:50 05/25/23 20:50 05/25/23 20:50 05/25/23 20:50 05/25/23 20:50 Results - Labs 05/25/23 21:17 05/25/23 21:17 Abnormal Lab Results - Last 24 Hours (Table) 05/25/23 05/25/23 Range/Units 21:17 21:17 WBC 17.7 H (3.8-10.6) k/uL RBC 3.32 L (3.80-5.40) m/uL Hgb 9.9 L D (11.4-16.0) gm/dL Hct 30.4 L (34.0-46.0) % RDW 17.6 H (11.5-15.5) % Neutrophils # 16.0 H (1.3-7.7) k/uL Lymphocytes # 0.7 L (1.0-4.8) k/uL Sodium 136 L (137-145) mmol/L BUN 33 H (7-17) mg/dL Creatinine 7.68 H* (0.52-1.04) mg/dL Glucose 108 H (74-99) mg/dL Alkaline Phosphatase 153 H (38-126) U/L Total Protein 6.0 L (6.3-8.2) g/dL Albumin 3.4 L (3.5-5.0) g/dL Diabetes panel 05/25/23 Range/Units 21:17 Sodium 136 L (137-145) mmol/L Potassium 4.0 (3.5-5.1) mmol/L Chloride 102 (98-107) mmol/L Carbon Dioxide 23 (22-30) mmol/L BUN 33 H (7-17) mg/dL Creatinine 7.68 H* (0.52-1.04) mg/dL Glucose 108 H (74-99) mg/dL Calcium 8.8 (8.4-10.2) mg/dL AST 35 (14-36) U/L ALT 15 (4-34) U/L Alkaline Phosphatase 153 H (38-126) U/L Total Protein 6.0 L (6.3-8.2) g/dL Albumin 3.4 L (3.5-5.0) g/dL Calcium panel 05/25/23 Range/Units 21:17 Calcium 8.8 (8.4-10.2) mg/dL Albumin 3.4 L (3.5-5.0) g/dL Pituitary panel 05/25/23 Range/Units 21:17 Sodium 136 L (137-145) mmol/L Potassium 4.0 (3.5-5.1) mmol/L Chloride 102 (98-107) mmol/L Carbon Dioxide 23 (22-30) mmol/L BUN 33 H (7-17) mg/dL Creatinine 7.68 H* (0.52-1.04) mg/dL Glucose 108 H (74-99) mg/dL Calcium 8.8 (8.4-10.2) mg/dL Adrenal panel 05/25/23 Range/Units 21:17 Sodium 136 L (137-145) mmol/L Potassium 4.0 (3.5-5.1) mmol/L Chloride 102 (98-107) mmol/L Carbon Dioxide 23 (22-30) mmol/L BUN 33 H (7-17) mg/dL Creatinine 7.68 H* (0.52-1.04) mg/dL Glucose 108 H (74-99) mg/dL Calcium 8.8 (8.4-10.2) mg/dL Total Bilirubin 0.5 (0.2-1.3) mg/dL AST 35 (14-36) U/L ALT 15 (4-34) U/L Alkaline Phosphatase 153 H (38-126) U/L Total Protein 6.0 L (6.3-8.2) g/dL Albumin 3.4 L (3.5-5.0) g/dL
[2023-05-26] MEDS: SEVELAMER 800 MG TAB PO SCH (14:01)
[2023-05-26] MEDS: hydrALAZINE HCL 50 MG TAB PO SCH (16:50)
[2023-05-26] MEDS: SIMETHICONE 40 MG/0.6 ML DROPS 2,000 MG/30 ML BOTTLE PO SCH (16:50)
[2023-05-26] MEDS: cloNIDine HCL 0.1 MG TAB PO SCH (16:50)
[2023-05-26] MEDS: HYDROmorphone 1 MG/ML 1 ML SYRINGE IVP PRN (17:52)
[2023-05-26] MEDS: ONDANSETRON 4 MG/2 ML VIAL IVP PRN (17:53)
[2023-05-26] MEDS: DARBEPOETIN ALFA 40 MCG/0.4 ML SYRINGE SQ SCH (18:38)
[2023-05-26] MEDS: tiZANidine 4 MG TAB PO SCH (20:42)
[2023-05-26] MEDS: METOPROLOL TARTRATE 50 MG TAB PO SCH (20:43)
[2023-05-26] MEDS: lisinopriL 20 MG TAB PO SCH (20:43)
[2023-05-27 09:24] LABS: Anisocytosis Slight; Basophils # (A) 0.1 k/uL (0-0.2); Basophils % (A) 1 %; Eosinophils # (A) 0.3 k/uL (0-0.7); Eosinophils % (A) 3 %; HCT 21.9 % (34.0-46.0); Hypochromasia Moderate; Lymphocytes # (A) 1.4 k/uL (1.0-4.8); Lymphocytes % (A) 16 %; MCH 29.8 pg (25.0-35.0); MCHC 31.9 g/dL (31.0-37.0); MCV 93.3 fL (80.0-100.0); Monocytes # (A) 0.4 k/uL (0-1.0); Monocytes % (A) 4 %; Neutrophils # (A) 6.4 k/uL (1.3-7.7); Neutrophils % (A) 73 %; RBC 2.35 m/uL (3.80-5.40); RDW 17.4 % (11.5-15.5); WBC 8.8 k/uL (3.8-10.6)
[2023-05-27 09:31] LABS: African American GFR (CKD) 5 (>60 ml/min/1.73 sqM); Anion Gap 10 mmol/L; Blood Urea Nitrogen 43 mg/dL (7-17); Calcium 8.4 mg/dL (8.4-10.2); Carbon Dioxide 19 mmol/L (22-30); Chloride 105 mmol/L (98-107); Glucose 89 mg/dL (74-99); Magnesium 1.9 mg/dL (1.6-2.3); Non-African American GFR(CKD) 4 (>60 ml/min/1.73 sqM); Potassium 4.4 mmol/L (3.5-5.1); Sodium 134 mmol/L (137-145)
--- NOTE | 2023-05-27 10:04 | P.PN ---
Subjective Progress Note Date: 05/27/23 This is a 42-year-old female with extensive surgical history including complicated ruptured diverticulitis 6 months ago. Patient has had acute cholecystitis requiring open cholecystectomy with intra-abdominal sepsis and prolonged antibiotics postoperatively. Patient underwent a diagnostic laparoscopy with extensive lysis of adhesions with a aborted open colostomy reversal and was just discharged from the hospital 2 days prior on the . Patient also with history of end-stage renal disease maintained on hemodialysis through a right chest permacath. 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 Patient was discharged home on 7 days of oral Augmentin therapy. Patient returns due to right upper quadrant abdominal discomfort and multiple episodes of vomiting and liquid stool from the ostomy. States she feels like her insides are being twisted. underwent a CT of the abdomen pelvis showing a phlegmonous change along the anterior abdominal wall surgical access site to correlate for early abscess formation. There is mesenteric edema and possibly enteritis. She was admitted to the hospital under medicine with a general surgical consultation patient was started on IV antibiotic therapy with IV Zosyn. Nephrology has been consulted to manage dialysis. His white blood cell count is elevated at 17.7, hemoglobin 9.9, BUN and creatinine are elevated consistent with end-stage renal disease. 05/27/2023 Patient is seen and evaluated in follow-up today currently undergoing hemodialysis patient is maintained on Saturday/Saturday/Saturday schedule and con tinues with the right chest wall permacath. Patient is scheduled to undergo endoscopic intervention with general surgery today and patient is currently NPO. Patient is afebrile with no reported chest pain or shortness of breath. Patient reports her abdominal pain is somewhat improved and denies any vomiting currently. Patient occasionally having nausea symptoms. Review of systems: Constitutional: No reports of fatigue, fever, or chills Cardiovascular: No reports of chest pain or palpitations Respiratory: No reports of shortness of breath or cough GI: reports of occasional nausea, no vomiting, or diarrhea, loose stool in the ostomy : No reports of dysuria or retention Neurovascular: No reports of weakness or numbness All medications have been reviewed PHYSICAL EXAMINATION: GENERAL: The patient is alert and oriented x3, not in any acute distress. Well developed, well nourished. Obese HEENT: Pupils are round and equally reacting to light. EOMI. No scleral icterus. No conjunctival pallor. Normocephalic, atraumatic. No pharyngeal erythema. No thyromegaly. CARDIOVASCULAR: S1 and S2 present. No murmurs, rubs, or gallops. PULMONARY: Chest is clear to auscultation, no wheezing or crackles. ABDOMEN: Soft, nontender, nondistended, normoactive bowel sounds. No palpable organomegaly. Ostomy present LLQ with loose stool in the bag. MUSCULOSKELETAL: No joint swelling or deformity. EXTREMITIES: No cyanosis, clubbing, or pedal edema. NEUROLOGICAL: Gross neurological examination did not reveal any focal deficits. SKIN: No rashes. Assessment: -Nausea vomiting and diarrhea possibly from enteritis noted on CT scan. Continue with symptomatic care with IV zofran. -Concern for early abscess formation near abdominal wall surgical site started on IV zosyn. General surgery has been consulted and scheduled to endoscopic evaluation today -History of perforated diverticulitis with end colostomy, aborted ostomy reversal due to multiple abscess in the abdominal cavity/ Patient is posoperative diagnostic laparotomy, lysis of adhesions, drainage of abscess. Discharged on 05/24/23 with 7 days of oral augmentin. -Previous history of peritoneal dialysis with spontaneous bacterial peritonitis and catheter was removed -Renal disease with end-stage renal disease and maintained on hemodialysis Saturday/Saturday/Saturday, nephrology on consultation for management -Thrombosed loop graft to the left arm patient is status post thrombectomy on 05/20/2023 -Hypertension history -History of focal segmental glomerulosclerosis -History of diverticulitis and colitis -History of bleeding gastric ulcers -History of pseudotumor on the brain -History of anxiety -Former smoker Obesity with a BMI of 30.4 GI prophylaxis DVT prophylaxis Full code Plan: Patient currently receiving hemodialysis with nephrology following as patient is maintained on Saturday/Saturday/Saturday. General surgery following and patient is scheduled to undergo endoscopic intervention which is currently pending. Patient is n.p.o. Follow-up on repeat labs Continue on antibiotics The impression and plan of care has been dictated by Roberta Miguel Nurse Practitioner as directed. Dr. Yuki MD I have performed a history and physical examination and medical decision making of this patient, discussed the same with the dictator, and agree with the dictators assessment and plan as written, documented as a scribe. Based on total visit time, I have performed more than 50% of this visit. Objective - Vital Signs Vital signs: Vital Signs Temp 97.7 F 05/27/23 08:00 Pulse 65 05/27/23 08:00 Resp 14 05/27/23 08:00 BP 178/95 05/27/23 08:00 Pulse Ox 98 05/27/23 08:00 FiO2 Intake & Output 05/26/23 05/27/23 05/27/23 18:59 06:59 18:59 Intake Total 897 240 Balance 897 240 Weight 84.3 kg Intake: Oral 897 240 Other: # Voids 1 # Bowel Movements 1 - Labs CBC & Chem 7: 05/27/23 09:02 05/27/23 09:02 Labs: Abnormal Lab Results - Last 24 Hours (Table) 05/27/23 05/27/23 Range/Units 09:02 09:02 RBC 2.35 L (3.80-5.40) m/uL Hgb 7.0 L D (11.4-16.0) gm/dL Hct 21.9 L (34.0-46.0) % RDW 17.4 H (11.5-15.5) % Sodium 134 L (137-145) mmol/L Carbon Dioxide 19 L (22-30) mmol/L BUN 43 H (7-17) mg/dL Creatinine 9.78 H* (0.52-1.04) mg/dL
--- NOTE | 2023-05-27 10:16 | P.PN ---
Subjective Reason for consultation: End-stage renal disease History of present illness: Patient is seen in follow-up for end-stage renal disease. She is maintained on hemodialysis on Saturday schedule. Patient was recently admitted and colostomy reversal was attempted but could not be done. She was subsequently discharged and came back to the hospital due to upper abdominal pain and vomiting. Patient has history of gastric ulcers. She underwent CT of the abdomen and pelvis which showed postsurgical changes in the bowel. Mesenteric edema was noted. Enteritis was also in the differential. There was concern for abscess formation. She is being followed by general surgery. She is scheduled to undergo endoscopy this admission. No vomiting today. Currently the pain is controlled. She is tolerating dialysis well. Denies fever or chills. Vital signs are stable. General: No acute distress. HEENT: Head exam is unremarkable. LUNGS: No audible rhonchi or wheezes. HEART: Rate and Rhythm are regular. ABDOMEN: Nontender. Colostomy noted. EXTREMITITES: No edema. Objective - Vital Signs Vital signs: Vital Signs Temp 97.7 F 05/27/23 08:00 Pulse 65 05/27/23 08:00 Resp 14 05/27/23 08:00 BP 178/95 05/27/23 08:00 Pulse Ox 98 05/27/23 08:00 FiO2 Intake & Output 05/26/23 05/27/23 05/27/23 18:59 06:59 18:59 Intake Total 897 240 Balance 897 240 Weight 84.3 kg Intake: Oral 897 240 Other: # Voids 1 # Bowel Movements 1 - Labs CBC & Chem 7: 05/27/23 09:02 05/27/23 09:02 Labs: Abnormal Lab Results - Last 24 Hours (Table) 05/27/23 05/27/23 Range/Units 09:02 09:02 RBC 2.35 L (3.80-5.40) m/uL Hgb 7.0 L D (11.4-16.0) gm/dL Hct 21.9 L (34.0-46.0) % RDW 17.4 H (11.5-15.5) % Sodium 134 L (137-145) mmol/L Carbon Dioxide 19 L (22-30) mmol/L BUN 43 H (7-17) mg/dL Creatinine 9.78 H* (0.52-1.04) mg/dL Assessment and Plan Plan: Assessment: 1. End-stage renal disease maintained on hemodialysis on Saturday schedule. 2. Abdominal pain and vomiting being followed by surgery. Concern for gastric ulcers. Endoscopy pending. 3. History of perforated diverticulitis with end colostomy. 4. Hypertension with chronic kidney disease. 5. Anemia of chronic kidney disease maintained on Aranesp. 6. Chronic kidney disease mineral bone disease maintained on Renvela. 7. Metabolic acidosis secondary to chronic kidney disease and GI losses. Plan: Currently seen while undergoing hemodialysis. Next treatment on Saturday. Endoscopy pending.
[2023-05-27 10:28] LABS: Platelet Count 106 k/uL (150-450)
[2023-05-27] MEDS ORDERED: PROPOFOL 10 MG/ML 20 ML VIAL IV ONE (13:38)
[2023-05-27] MEDS ORDERED: LIDOCAINE 1% INJ 10MG/ML (20 ML MDV) ONE (13:38)
[2023-05-27] MEDS: IV FLUID CONTINUATION 1,000 ML IV ONE (13:42)
--- NOTE | 2023-05-27 14:09 | P.PCN ---
Date of Procedure: 05/27/23 Description of Procedure: PREOPERATIVE DIAGNOSIS: Anemia Epigastric abdominal pain History of gastric ulcers with bleeding POSTOPERATIVE DIAGNOSIS: Duodenal polyps Anemia Epigastric abdominal pain History of gastric ulcers with bleeding OPERATION: Esophagogastroduodenoscopy with biopsy SURGEON: Joanna Blackburn MD ANESTHESIA: MAC. INDICATIONS: The patient is a 42-year-old female who presents with anemia, epigastric pain, personal history of gastric ulcers with bleeding. Benefits and risks of the procedure were described. Informed consent was obtained. DESCRIPTION: The patient was brought into the endoscopy suite and laid in the left lateral decubitus position. An Olympus gastroscope was passed along the posterior oropharynx down to the distal esophagus where the squamocolumnar junction was encountered at 38 cm from the incisors. The stomach was entered and no bile reflux was found. Additional findings are listed below. The first through third portion of the duodenum was examined and duodenal polyps with melanosis of the duodenum and biopsies obtained. Retroflexion of the scope confirmed Hill grade 2 lower esophageal valve. The squamocolumnar junction demonstrated LA grade B erosive esophagitis. The stomach was desufflated. The patient tolerated the procedure well. FINDINGS: Squamocolumnar junction 36 cm from the incisors. Diaphragmatic hiatus at 36 cm. Melanosis of the intestine, duodenum, biopsies obtained Duodenal polyp Hill grade 2 lower esophageal valve. LA grade B erosive esophagitis. No active duodenitis. No stigmata of bleeding RECOMMENDATIONS: 1. Diet as tolerated 2. Upper endoscopy as needed
[2023-05-27] MEDS: FAMOTIDINE 20 MG TAB PO SCH (14:13)
[2023-05-27] MEDS: DARBEPOETIN ALFA 40 MCG/0.4 ML SYRINGE SQ SCH (14:13)
[2023-05-27] MEDS: FOLIC ACID-VIT B COMPLEX-VIT C 1 CAP PO SCH (14:13)
[2023-05-27] MEDS: amLODIPine 10 MG TAB PO SCH (14:13)
[2023-05-27] MEDS: [UNRECOGNIZED DRUG - OTHER] SQ SCH (14:33)
[2023-05-28 09:25] LABS: Anisocytosis Slight; Basophils % (A) 1 %; Eosinophils # (A) 0.1 k/uL (0-0.7); Eosinophils % (A) 1 %; HCT 20.7 % (34.0-46.0); Hypochromasia Slight; Lymphocytes # (A) 0.9 k/uL (1.0-4.8); Lymphocytes % (A) 11 %; MCH 29.3 pg (25.0-35.0); MCHC 31.6 g/dL (31.0-37.0); MCV 92.8 fL (80.0-100.0); Mean Platelet Volume 9.7; Monocytes # (A) 0.4 k/uL (0-1.0); Monocytes % (A) 4 %; Neutrophils # (A) 6.8 k/uL (1.3-7.7); Neutrophils % (A) 82 %; RBC 2.23 m/uL (3.80-5.40); RDW 17.3 % (11.5-15.5); WBC 8.4 k/uL (3.8-10.6)
[2023-05-28 09:30] LABS: HGB 6.5 gm/dL (11.4-16.0)
[2023-05-28 10:12] LABS: Platelet Count 77 k/uL (150-450)
--- NOTE | 2023-05-28 10:50 | P.PN ---
Subjective Patient is seen in follow-up for end-stage renal disease. She is maintained on hemodialysis on Saturday schedule. No problems with dialysis yesterday. Hemoglobin low today and is scheduled to receive a unit of blood. Denies any active bleeding. Vital signs are stable. General: No acute distress. HEENT: Head exam is unremarkable. LUNGS: No audible rhonchi or wheezes. HEART: Rate and Rhythm are regular. ABDOMEN: Nontender. Colostomy noted. EXTREMITITES: No edema. Objective - Vital Signs Vital signs: Vital Signs Temp 98.3 F 05/28/23 08:50 Pulse 64 05/28/23 08:50 Resp 18 05/28/23 08:50 BP 159/79 05/28/23 08:50 Pulse Ox 97 05/28/23 08:50 FiO2 Intake & Output 05/27/23 05/28/23 05/28/23 18:59 06:59 18:59 Intake Total 1140 240 Output Total 2500 Balance -1360 240 Weight 83.6 kg Intake: Intake, IV Titration 500 Amount IV Fluid Continuation 1, 400 000 ml @ 0 mls/hr IV .STK -[facility] Rx#:[id number] Piperacillin-Tazobactam 3 100 .375 gm In Sodium Chloride 0.9% 100 ml @ 25 mls/hr IVPB Q12HR@0600, 1800 [facility] Rx#:[id number] Oral 240 240 Hemodialysis 400 Output: Hemodialysis 2500 Other: # Bowel Movements 1 - Labs CBC & Chem 7: 05/28/23 08:53 05/27/23 09:02 Labs: Abnormal Lab Results - Last 24 Hours (Table) 05/28/23 Range/Units 08:53 RBC 2.23 L (3.80-5.40) m/uL Hgb 6.5 L* (11.4-16.0) gm/dL Hct 20.7 L (34.0-46.0) % RDW 17.3 H (11.5-15.5) % Plt Count 77 L (150-450) k/uL Lymphocytes # 0.9 L (1.0-4.8) k/uL Microbiology - Last 24 Hours (Table) 05/25/23 22:45 Blood Culture - Preliminary Blood Assessment and Plan Plan: Assessment: 1. End-stage renal disease maintained on hemodialysis on Saturday schedule. 2. Abdominal pain and vomiting being followed by surgery. Concern for gastric ulcers. EGD showed duodenal polyps. 3. History of perforated diverticulitis with end colostomy. 4. Hypertension with chronic kidney disease. Stable. 5. Anemia of chronic kidney disease maintained on Aranesp. Scheduled to receive a unit of blood today. 6. Chronic kidney disease mineral bone disease maintained on Renvela. 7. Metabolic acidosis secondary to chronic kidney disease and GI losses. Expect improvement postdialysis. Plan: Hemodialysis tomorrow. IV DDAVP x 1 dose today.
[2023-05-28] MEDS: DESMOPRESSIN ACETATE 20 MCG in SODIUM CHLORIDE 0.9% 50 ML IVPB ONE (11:37)
--- NOTE | 2023-05-28 11:41 | P.PN ---
Subjective Progress Note Date: 05/28/23 This is a 42-year-old female with extensive surgical history including complicated ruptured diverticulitis 6 months ago. Patient has had acute cholecystitis requiring open cholecystectomy with intra-abdominal sepsis and prolonged antibiotics postoperatively. Patient underwent a diagnostic laparoscopy with extensive lysis of adhesions with a aborted open colostomy reversal and was just discharged from the hospital 2 days prior on the . Patient also with history of end-stage renal disease maintained on hemodialysis through a right chest permacath. 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 Patient was discharged home on 7 days of oral Augmentin therapy. Patient returns due to right upper quadrant abdominal discomfort and multiple episodes of vomiting and liquid stool from the ostomy. States she feels like her insides are being twisted. underwent a CT of the abdomen pelvis showing a phlegmonous change along the anterior abdominal wall surgical access site to correlate for early abscess formation. There is mesenteric edema and possibly enteritis. She was admitted to the hospital under medicine with a general surgical consultation patient was started on IV antibiotic therapy with IV Zosyn. Nephrology has been consulted to manage dialysis. His white blood cell count is elevated at 17.7, hemoglobin 9.9, BUN and creatinine are elevated consistent with end-stage renal disease. 05/27/2023 Patient is seen and evaluated in follow-up today currently undergoing hemodialysis patient is maintained on Saturday/Saturday/Saturday schedule and continues with the right chest wall permacath. Patient is scheduled to undergo endoscopic intervention with general surgery today and patient is currently NPO. Patient is afebrile with no reported chest pain or shortness of breath. Patient reports her abdominal pain is somewhat improved and denies any vomiting currently. Patient occasionally having nausea symptoms. 05/28/2023 Patient was seen in follow-up today, states that her nausea and abdominal pain have completely resolved at this time. Patient underwent EGD yesterday revealing duodenal polyps which were biopsied there was no evidence for gastritis or ulceration. She has not had any further episodes of nausea or vomiting overnight she is not having any stool from the ostomy since her episodes of diarrhea. Hemoglobin comes back today at 6.5. Patient states that she is having her menses and reporting heavier flow, which is not unusual for her. She will get a unit of PRBC today. Review of systems: Constitutional states that her abdominal pain and nausea have resolved at this time.: No reports of fatigue, fever, or chills Cardiovascular: No reports of chest pain or palpitations Respiratory: No reports of shortness of breath or cough GI: reports of occasional nausea, no vomiting, or diarrhea, loose stool in the ostomy : No reports of dysuria or retention Neurovascular: No reports of weakness or numbness All medications have been reviewed PHYSICAL EXAMINATION: GENERAL: The patient is alert and oriented x3, not in any acute distress. Well developed, well nourished. Obese HEENT: Pupils are round and equally reacting to light. EOMI. No scleral icterus. No conjunctival pallor. Normocephalic, atraumatic. No pharyngeal erythema. No thyromegaly. CARDIOVASCULAR: S1 and S2 present. No murmurs, rubs, or gallops. PULMONARY: Chest is clear to auscultation, no wheezing or crackles. ABDOMEN: Soft, nontender, nondistended, normoactive bowel sounds. No palpable organomegaly. Ostomy present LLQ with loose stool in the bag. MUSCULOSKELETAL: No joint swelling or deformity. EXTREMITIES: No cyanosis, clubbing, or pedal edema. NEUROLOGICAL: Gross neurological examination did not reveal any focal deficits. SKIN: No rashes. Assessment: -Nausea vomiting and diarrhea possibly from enteritis noted on CT scan. Continue with symptomatic care with IV zofran. Pt does report symptoms are improving today. -Concern for early abscess formation near abdominal wall surgical site started on IV zosyn. General surgery following. -Acute on chronic anemia, no evidence for upper GI bleed on endoscopy. Patient reports having a heavy menses. will give 1 unit of PRBC and follow up labs in the AM. -History of perforated diverticulitis with end colostomy, aborted ostomy reversal due to multiple abscess in the abdominal cavity/ Patient is posoperative diagnostic laparotomy, lysis of adhesions, drainage of abscess. Discharged on 05/24/23 with 7 days of oral augmentin. -Previous history of peritoneal dialysis with spontaneous bacterial peritonitis and catheter was removed -Renal disease with end-stage renal disease and maintained on hemodialysis Saturday/Saturday/Saturday, nephrology on consultation for management -Thrombosed loop graft to the left arm patient is status post thrombectomy on 05/20/2023 -Hypertension history -History of focal segmental glomerulosclerosis -History of diverticulitis and colitis -History of bleeding gastric ulcers -History of pseudotumor on the brain -History of anxiety -Former smoker Obesity with a BMI of 30.4 GI prophylaxis DVT prophylaxis Full code Plan: Patient scheduled to recieve HD tomorrow, nephrology following as patient is maintained on Saturday/Saturday/Saturday. General surgery following patient is status post EGD. Patient to receive 1 unit of PRBC today. Follow-up on repeat labs Continue on antibiotics The impression and plan of care has been dictated by Roberta Miguel Nurse Practitioner as directed. Dr. Yuki MD I have performed a history and physical examination and medical decision making of this patient, discussed the same with the dictator, and agree with the dictators assessment and plan as written, documented as a scribe. Based on total visit time, I have performed more than 50% of this visit. Objective - Vital Signs Vital signs: Vital Signs Temp 98.1 F 05/28/23 04:45 Pulse 78 05/28/23 04:45 Resp 16 05/28/23 04:45 BP 146/80 05/28/23 04:45 Pulse Ox 98 05/28/23 04:45 FiO2 Intake & Output 05/27/23 05/28/23 05/28/23 18:59 06:59 18:59 Intake Total 1140 240 Output Total 2500 Balance -1360 240 Weight 83.6 kg Intake: Intake, IV Titration 500 Amount IV Fluid Continuation 1, 400 000 ml @ 0 mls/hr IV .STK -[facility] Rx#:[id number] Piperacillin-Tazobactam 3 100 .375 gm In Sodium Chloride 0.9% 100 ml @ 25 mls/hr IVPB Q12HR@0600, 1800 [facility] Rx#:[id number] Oral 240 240 Hemodialysis 400 Output: Hemodialysis 2500 Other: # Bowel Movements 1 - Labs CBC & Chem 7: 05/28/23 08:53 05/27/23 09:02 Labs: Abnormal Lab Results - Last 24 Hours (Table) 05/27/23 05/27/23 Range/Units 09:02 09:02 RBC 2.35 L (3.80-5.40) m/uL Hgb 7.0 L D (11.4-16.0) gm/dL Hct 21.9 L (34.0-46.0) % RDW 17.4 H (11.5-15.5) % Plt Count 106 L D (150-450) k/uL Sodium 134 L (137-145) mmol/L Carbon Dioxide 19 L (22-30) mmol/L BUN 43 H (7-17) mg/dL Creatinine 9.78 H* (0.52-1.04) mg/dL Microbiology - Last 24 Hours (Table) 05/25/23 22:45 Blood Culture - Preliminary Blood Assessment and Plan Time with Patient: Less than 30
--- NOTE | 2023-05-28 13:27 | P.PN ---
Subjective Progress Note Date: 05/28/23 CHIEF COMPLAINT: Abdominal pain with vomiting HISTORY OF PRESENT ILLNESS: Patient reports her pain is improved. She tolerated diet. She has very minimal output through her ostomy that just darted this mo rning. She does report heavy menstrual cycle currently. Hemoglobin is down to 6.5 and she is scheduled to receive 1 unit of packed red blood cells. WBC 8.4 platelets 77 PHYSICAL EXAM: VITAL SIGNS: Reviewed GENERAL: Well-developed in no acute distress. HEENT: No sclera icterus. Extraocular movements grossly intact. Moist buccal mucosa. Head is atraumatic, normocephalic. Hears conversational speech. No nasal drainage. NECK: Supple without lymphadenopathy. CHEST: Non-labored respirations and equal bilateral excursions. CARDIOVASCULAR: Palpable 2+ radial pulses. ABDOMEN: Soft. Nondistended. Nontender. Ostomy on the left with very small amount of brown stool MUSCULOSKELETAL: No clubbing or cyanosis. NEUROLOGIC: No focal or lateralizing signs. Cranial nerves II through XII gr ossly intact. PSYCH: Appropriate affect. Alert and oriented to person, place and time. SKIN: Well perfused. Good skin turgor. ASSESSMENT: 1. Epigastric pain. Status post EGD and results revealed erosive esophagitis no stigmata of bleeding 2. Anemia 3. Chronic sigmoid diverticulitis with colon perforation and distending colostomy. Open colostomy reversal aborted on last admission. 4. End-stage renal disease, dialysis dependent PLAN: -Continue renal diet -Agree with blood transfusion -Encourage patient to increase activity level -Continue to monitor ostomy output -Continue PPI Physician Learning Strategist note has been reviewed by physician. Signing provider agrees with the documented findings, assessment, and plan of care. Objective - Vital Signs Vital signs: Vital Signs Temp 98.3 F 05/28/23 08:50 Pulse 70 05/28/23 11:35 Resp 17 05/28/23 11:35 BP 153/82 05/28/23 11:35 Pulse Ox 96 05/28/23 11:35 FiO2 Intake & Output 05/27/23 05/28/23 05/28/23 18:59 06:59 18:59 Intake Total 1140 240 Output Total 2500 Balance -1360 240 Weight 83.6 kg Intake: Intake, IV Titration 500 Amount IV Fluid Continuation 1, 400 000 ml @ 0 mls/hr IV .STK [facility] Rx#:[id number] Piperacillin-Tazobactam 3 100 .375 gm In Sodium Chloride 0.9% 100 ml @ 25 mls/hr IVPB Q12HR@0600, 1800 [facility] Rx#:[id number] Oral 240 240 Hemodialysis 400 Output: Hemodialysis 2500 Other: # Bowel Movements 1 - Labs CBC & Chem 7: 05/28/23 08:53 05/27/23 09:02 Labs: Abnormal Lab Results - Last 24 Hours (Table) 05/28/23 Range/Units 08:53 RBC 2.23 L (3.80-5.40) m/uL Hgb 6.5 L* (11.4-16.0) gm/dL Hct 20.7 L (34.0-46.0) % RDW 17.3 H (11.5-15.5) % Plt Count 77 L (150-450) k/uL Lymphocytes # 0.9 L (1.0-4.8) k/uL Microbiology - Last 24 Hours (Table) 05/25/23 22:45 Blood Culture - Preliminary Blood 05/25/23 22:30 Blood Culture - Preliminary Blood
[2023-05-28] MEDS: PANTOPRAZOLE 40 MG TABLET PO SCH (14:41)
[2023-05-28] MEDS: HYDROcodone/APAP 5-325MG 1 EACH TAB PO PRN (21:50)
[2023-05-28 23:26] LABS: Anisocytosis Slight; Basophils % (A) 0 %; Eosinophils # (A) 0.2 k/uL (0-0.7); Eosinophils % (A) 2 %; HCT 21.6 % (34.0-46.0); HGB 7.1 gm/dL (11.4-16.0); Hypochromasia Slight; Lymphocytes # (A) 1.5 k/uL (1.0-4.8); Lymphocytes % (A) 17 %; MCHC 33.1 g/dL (31.0-37.0); MCV 90.7 fL (80.0-100.0); Mean Platelet Volume 9.8; Monocytes # (A) 0.4 k/uL (0-1.0); Monocytes % (A) 4 %; Neutrophils # (A) 6.4 k/uL (1.3-7.7); Neutrophils % (A) 74 %; RBC 2.38 m/uL (3.80-5.40); RDW 17.1 % (11.5-15.5); WBC 8.6 k/uL (3.8-10.6)
[2023-05-29 00:19] LABS: Platelet Count 66 k/uL (150-450)
--- NOTE | 2023-05-29 10:37 | P.PN ---
Subjective Patient is seen in follow-up for end-stage renal disease. She is maintained on hemodialysis on Saturday schedule. Tolerating dialysis well. Admits to heavy menstruation. Vital signs are stable. General: No acute distress. HEENT: Head exam is unremarkable. LUNGS: No audible rhonchi or wheezes. HEART: Rate and Rhythm are regular. ABDOMEN: Nontender. Colostomy noted. EXTREMITITES: No edema. Objective - Vital Signs Vital signs: Vital Signs Temp 98.6 F 05/29/23 08:40 Pulse 70 05/29/23 08:40 Resp 18 05/29/23 08:40 BP 159/88 05/29/23 08:40 Pulse Ox 97 05/29/23 08:40 FiO2 Intake & Output 05/28/23 05/29/23 05/29/23 18:59 06:59 18:59 Intake Total 490 Balance 490 Weight 85.8 kg Intake: Oral 180 Blood Product 310 Rc As-1 Unit 310 [id number] Other: # Voids 1 - Labs CBC & Chem 7: 05/28/23 23:03 05/27/23 09:02 Labs: Abnormal Lab Results - Last 24 Hours (Table) 05/28/23 05/28/23 Range/Units 10:08 23:03 RBC 2.38 L (3.80-5.40) m/uL Hgb 7.1 L (11.4-16.0) gm/dL Hct 21.6 L (34.0-46.0) % RDW 17.1 H (11.5-15.5) % Plt Count 66 L (150-450) k/uL Crossmatch See Detail Microbiology - Last 24 Hours (Table) 05/25/23 22:45 Blood Culture - Preliminary Blood 05/25/23 22:30 Blood Culture - Preliminary Blood Assessment and Plan Plan: Assessment: 1. End-stage renal disease maintained on hemodialysis on Saturday schedule. 2. Abdominal pain and vomiting being followed by surgery. Concern for gastric ulcers. EGD showed duodenal polyps. 3. History of perforated diverticulitis with end colostomy. 4. Hypertension with chronic kidney disease. Stable. 5. Anemia of chronic kidney disease maintained on Aranesp. Status post blood transfusion this admission. Also received IV DDAVP. 6. Chronic kidney disease mineral bone disease maintained on Renvela. 7. Metabolic acidosis secondary to chronic kidney disease and GI losses. Expect improvement postdialysis. Plan: Currently seen while undergoing hemodialysis. Next treatment on Saturday.
[2023-05-29 13:46] VITALS: BP 176/83; PULSE 68; RESP 17; TEMP 98.2
--- NOTE | 2023-05-29 13:51 | P.PN ---
Subjective Progress Note Date: 05/29/23 CHIEF COMPLAINT: Abdominal pain with vomiting HISTORY OF PRESENT ILLNESS: Patient receiving hemodialysis morning. She reports her pain is controlled. Denies any nausea or vomiting. Tolerating diet. She is having stool from her ostomy. Afebrile. Hemoglobin is up from 6.5-7.1 after 1 unit of blood. Hgb 8.6 platelets 66 PHYSICAL EXAM: VITAL SIGNS: Reviewed GENERAL: Well-developed in no acute distress. HEENT: No sclera icterus. Extraocular movements grossly intact. Moist buccal mucosa. Head is atraumatic, normocephalic. Hears conversational speech. No nasal drainage. NECK: Supple without lymphadenopathy. CHEST: Non-labored respirations and equal bilateral excursions. CARDIOVASCULAR: Palpable 2+ radial pulses. ABDOMEN: Soft. Nondistended. Nontender. Ostomy with stool MUSCULOSKELETAL: No clubbing or cyanosis. NEUROLOGIC: No focal or lateralizing signs. Cranial nerves II through XII grossly intact. PSYCH: Appropriate affect. Alert and oriented to person, place and time. SKIN: Well perfused. Good skin turgor. ASSESSMENT: 1. Epigastric pain. Improved. Status post EGD and results revealed erosive esophagitis no stigmata of bleeding 2. Anemia 3. Chronic sigmoid diverticulitis with colon perforation and distending colostomy. Open colostomy reversal aborted on last admission. 4. End-stage renal disease, dialysis dependent PLAN: -Patient can be discharge from surgical standpoint -Continue regular, renal diet -Continue PPI Physician Licensing Analyst note has been reviewed by physician. Signing provider agrees with the documented findings, assessment, and plan of care. Objective - Vital Signs Vital signs: Vital Signs Temp 98.2 F 05/29/23 11:10 Pulse 68 05/29/23 11:10 Resp 17 05/29/23 11:10 BP 176/83 05/29/23 11:10 Pulse Ox 97 05/29/23 11:10 FiO2 Intake & Output 05/28/23 05/29/23 05/29/23 18:59 06:59 18:59 Intake Total 490 400 Output Total 2400 Balance 490 -2000 Weight 85.8 kg Intake: Oral 180 Blood Product 310 Rc As-1 Unit 310 [id number] Hemodialysis 400 Output: Hemodialysis 2400 Other: # Voids 1 - Labs CBC & Chem 7: 05/28/23 23:03 05/27/23 09:02 Labs: Abnormal Lab Results - Last 24 Hours (Table) 05/28/23 05/28/23 Range/Units 10:08 23:03 RBC 2.38 L (3.80-5.40) m/uL Hgb 7.1 L (11.4-16.0) gm/dL Hct 21.6 L (34.0-46.0) % RDW 17.1 H (11.5-15.5) % Plt Count 66 L (150-450) k/uL Crossmatch See Detail Microbiology - Last 24 Hours (Table) 05/25/23 22:45 Blood Culture - Preliminary Blood 05/25/23 22:30 Blood Culture - Preliminary Blood
--- NOTE | 2023-06-02 22:41 | P.DS ---
Providers Date of admission: 05/25/23 22:21 Attending physician: Jamel Urbano Consults: 05/25/23 22:19 Consult Physician Routine Consulting Provider: Joanna Blackburn Consult Reason/Comments: N/V possible incisional infection Do you want consulting provider notified?: Yes Consult Physician Routine Consulting Provider: Analisa Cruz Consult Reason/Comments: ESRD Do you want consulting provider notified?: Yes, Notify in am Primary care physician: Alia Keita Hospital Course: Final Diagnosis -Nausea vomiting and diarrhea possibly from enteritis noted on CT scan. Continue with symptomatic care with IV zofran. -Concern for early abscess formation near abdominal wall surgical site started on IV zosyn. General surgery following. -Acute on chronic anemia, no evidence for upper GI bleed on endoscopy. Patient reports having a heavy menses. S/P 1 unit PRBC -History of perforated diverticulitis with end colostomy, aborted ostomy reversal due to multiple abscess in the abdominal cavity/ Patient is posoperative diagnostic laparotomy, lysis of adhesions, drainage of abscess. Discharged on 05/24/23 with 7 days of oral augmentin. 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 No surgical intervention this admission. Recommended to continue same course of oral augmentin from prior discharge. Continue on same hemodialysis outpatient MWF. Patient has a surgical follow up on June 25. Patient to see her PCP Dr. Alia Keita in 1 to 2 days. Recommending to repeat labs with hemodialysis on Saturday. Hospital Course This is a 42-year-old female with extensive surgical history including complicated ruptured diverticulitis 6 months ago. Patient has had acute cholecystitis requiring open cholecystectomy with intra-abdominal sepsis and prolonged antibiotics postoperatively. Patient underwent a diagnostic laparoscopy with extensive lysis of adhesions with a aborted open colostomy reversal and was just discharged from the hospital 2 days prior on the . Patient also with history of end-stage renal disease maintained on hemodialysis through a right chest permacath. 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 Patient was discharged home on 7 days of oral Augmentin therapy. Patient returns due to right upper quadrant abdominal discomfort and multiple episodes of vomiting and liquid stool from the ostomy. States she feels like her insides are being twisted. underwent a CT of the abdomen pelvis showing a phlegmonous change along the anterior abdominal wall surgical access site to correlate for early abscess formation. There is mesenteric edema and possibly enteritis. She was admitted to the hospital under medicine with a general surgical consultation patient was started on IV antibiotic therapy with IV Zosyn. Nephrology has been consulted to manage dialysis. His white blood cell count is elevated at 17.7, hemoglobin 9.9, BUN and creatinine are elevated consistent with end-stage renal disease. Patient was monitored and general surgery recommending endoscopic evaluation. EGD reveals duodenal polyps which were biopsied there was no evidence for gastritis or ulceration. She has not had any further episodes of nausea or vomiting overnight she is not having any stool from the ostomy since her episodes of diarrhea. Hemoglobin comes back today at 6.5. Patient states that she is having her menses and reporting heavier flow, which is not unusual for her. Patient is status post 1 unit of PRBC; with repeat hemoglobin of 7.1. Nephrology has started patient on aranesp which will be continued on discharge. Nausea, vomiting and diarrhea have resolved at this time. Patient has no further reports of abdominal pain. No chest pain and no shortness of breath. Lungs are clear, abdomen soft and nontender. Cleared for discharge. Please see medication reconciliation for a list of current medications. Thank you for allowing us to participate in the care of this patient. The impression and plan of care has been dictated by Roberta Miguel, Nurse Practitioner as directed. Dr. Yuki MD I have performed a history and physical examination and medical decision making of this patient, discussed the same with the dictator, and agree with the dictators assessment and plan as written, documented as a scribe. Based on total visit time, I have performed more than 50% of this visit. Objective Patient Condition at Discharge: Stable Plan - Discharge Summary Discharge Rx Participant: No New Discharge Prescriptions: New Darbepoetin Shahram [Aranesp] 40 mcg SQ Q7D #1 each Continue Metoprolol Tartrate [Lopressor] 50 mg PO BID Ondansetron [Zofran] 4 mg PO Q8HR PRN #20 tab PRN Reason: Nausea And Vomiting Mircera(Unk) 1 dose SQ Q15D Amoxic-Pot Clav 500-125 mg [Augmentin 500-125 mg] 1 tab PO Q24HR 14 Days #14 tab Simethicone 40 mg/0.6 ml Drops [Mylicon Drops] 40 mg PO QID #30 ml Famotidine [Pepcid] 20 mg PO DAILY #30 tablet tiZANidine HCL [Zanaflex] 4 mg PO HS Sucralfate [Carafate] 1 gm PO AC-TID 30 Days #90 tab cloNIDine HCL [Catapres] 0.1 mg PO TID #90 tab amLODIPine [Norvasc] 10 mg PO DAILY #30 tab Folic Acid-Vit B Complex-Vit C [Nephrocaps] 1 cap PO DAILY HYDROcodone/APAP 5-325MG [[place] 5-325] 1 tab PO Q6H PRN PRN Reason: Pain Acetaminophen Tab [Tylenol] 1,000 mg PO Q6HR PRN #30 tablet PRN Reason: Pain lisinopriL [Zestril] 20 mg PO BID Sucroferric Oxyhydroxide [Velphoro] 1,000 mg PO TID-W/MEALS hydrALAZINE HCL [Apresoline] 100 mg PO TID Discharge Medication List Metoprolol Tartrate [Lopressor] 50 mg PO BID 11/11/21 [History] Famotidine [Pepcid] 20 mg PO DAILY #30 tablet 11/23/22 [Rx] Ondansetron [Zofran] 4 mg PO Q8HR PRN #20 tab 11/23/22 [Rx] tiZANidine HCL [Zanaflex] 4 mg PO HS 11/30/22 [History] Sucralfate [Carafate] 1 gm PO AC-TID 30 Days #90 tab 12/07/22 [Rx] amLODIPine [Norvasc] 10 mg PO DAILY #30 tab 12/07/22 [Rx] cloNIDine HCL [Catapres] 0.1 mg PO TID #90 tab 12/07/22 [Rx] Folic Acid-Vit B Complex-Vit C [Nephrocaps] 1 cap PO DAILY 12/12/22 [History] Mircera(Unk) 1 dose SQ Q15D 04/29/23 [History] HYDROcodone/APAP 5-325MG [[place] 5-325] 1 tab PO Q6H PRN 05/14/23 [History] Amoxic-Pot Clav 500-125 mg [Augmentin 500-125 mg] 1 tab PO Q24HR 14 Days #14 tab 05/23/23 [Rx] Acetaminophen Tab [Tylenol] 1,000 mg PO Q6HR PRN #30 tablet 05/24/23 [Rx] Simethicone 40 mg/0.6 ml Drops [Mylicon Drops] 40 mg PO QID #30 ml 05/24/23 [Rx] Sucroferric Oxyhydroxide [Velphoro] 1,000 mg PO TID-W/MEALS 05/26/23 [History] hydrALAZINE HCL [Apresoline] 100 mg PO TID 05/26/23 [History] lisinopriL [Zestril] 20 mg PO BID 05/26/23 [History] Darbepoetin Shahram [Aranesp] 40 mcg SQ Q7D #1 each 05/29/23 [Rx] Follow up Appointment(s)/Referral(s): Alia Keita MD [Primary Care Provider] - 1-2 days Joanna Blackburn MD [STAFF PHYSICIAN] - 06/26/23 3:45 pm Ambulatory/Diagnostic Orders: Basic Metabolic Panel [LAB.AMB] Location: None Selected Complete Blood Count w/diff [LAB.AMB] Time Frame: 2 Days, Location: None Selected Activity/Diet/Wound Care/Special Instructions: Keep same follow up with Dr. Blackburn. Follow up with nephrology regarding aranesp to continue beyond 05/05/2022 Continue with your usual hemodialysis MWF. Repeat labs 2 to 3 days. Discharge Disposition: HOME SELF-CARE
== END 2023-05-29 14:50 | disposition home or self-care (01) | DRG 243 ==
LOC: EC 20:47 → 3SCARD 22:21
PROVIDERS: ADMIT Internal Medicine; ATTEND Internal Medicine
PROC: 5A1D70Z Performance of Urinary Filtration, Intermittent, Less than 6 Hours Per Day (ICD-10-PCS; 2023-05-27)
PROC: 0DB98ZX Excision of Duodenum, Via Natural or Artificial Opening Endoscopic, Diagnostic (ICD-10-PCS; principal; 2023-05-27 08:40)
DX: K22.10 Ulcer of esophagus without bleeding (principal); K44.9 Diaphragmatic hernia without obstruction or gangrene; I12.0 Hypertensive chronic kidney disease with stage 5 chronic kidney disease or end stage renal disease; N18.6 End stage renal disease; Z99.2 Dependence on renal dialysis; Z87.891 Personal history of nicotine dependence; K31.7 Polyp of stomach and duodenum; F41.9 Anxiety disorder, unspecified; K63.89 Other specified diseases of intestine; E83.9 Disorder of mineral metabolism, unspecified; D63.1 Anemia in chronic kidney disease; N92.0 Excessive and frequent menstruation with regular cycle; G40.909 Epilepsy, unspecified, not intractable, without status epilepticus; E66.9 Obesity, unspecified; M10.9 Gout, unspecified; Z68.30 Body mass index [BMI] 30.0-30.9, adult; Z90.49 Acquired absence of other specified parts of digestive tract; Z93.3 Colostomy status; Z28.310 Unvaccinated for COVID-19; Z28.21 Immunization not carried out because of patient refusal; Z88.1 Allergy status to other antibiotic agents; Z88.7 Allergy status to serum and vaccine; Z87.11 Personal history of peptic ulcer disease; Z79.899 Other long term (current) drug therapy; Z82.49 Family history of ischemic heart disease and other diseases of the circulatory system; Z87.19 Personal history of other diseases of the digestive system; Z79.2 Long term (current) use of antibiotics
CPT/HCPCS: 36415; 43239; 74176; 80048; 80053; 83605; 83690; 83735; 84703; 85025; 85610; 85730; 86850; 86900; 86901; 86920; 87040; 88305; 88313; 90935; 96365; 96366; 96375; 96376; 99285

== ENCOUNTER 2023-06-03 12:42 | Inpatient (IN) | payer OTHER ==
--- NOTE | 2023-06-03 12:53 | ED ---
Nausea/Vomiting/Diarrhea HPI - General Chief complaint: Nausea/Vomiting/Diarrhea Stated complaint: NV-post op Time Seen by Provider: 06/03/23 12:48 Source: patient, EMS, RN notes reviewed, old records reviewed Mode of arrival: EMS Limitations: no limitations - History of Present Illness Initial comments: This is a 42-year-old female to the ER for evaluation of severe abdominal pain nausea vomiting weakness. Patient did miss dialysis today and concern for worsening symptoms of missing dialysis. Patient has no fevers does abdominal pain admitted the right lower quadrant abdominal pain MD complaint: nausea, vomiting, abdominal pain -: days(s) Description of Vomiting: food contents Location: periumbilical, RLQ Severity: moderate Severity scale (1-10): 6 Quality: crushing, sharp Consistency: intermittent Improves with: none Worsens with: none - Related Data Home Medications Medication Instructions Recorded Confirmed Metoprolol Tartrate [Lopressor] 50 mg PO BID 11/11/21 06/03/23 tiZANidine HCL [Zanaflex] 4 mg PO HS 11/30/22 06/03/23 Folic Acid-Vit B Complex-Vit C 1 cap PO DAILY 12/12/22 06/03/23 [Nephrocaps] Sucroferric Oxyhydroxide [Velphoro] 1,000 mg PO TID-W/MEALS 05/26/23 06/03/23 hydrALAZINE HCL [Apresoline] 100 mg PO TID 05/26/23 06/03/23 lisinopriL [Zestril] 20 mg PO BID 05/26/23 06/03/23 Darbepoetin Shahram [Aranesp] 40 mcg SQ MO 06/03/23 06/03/23 Simethicone 40 mg/0.6 ml Drops 40 mg PO QID PRN 06/03/23 06/03/23 [Mylicon Drops] Previous Rx's Medication Instructions Recorded Famotidine [Pepcid] 20 mg PO DAILY #30 tablet 11/23/22 Ondansetron [Zofran] 4 mg PO Q8HR PRN #20 tab 11/23/22 Sucralfate [Carafate] 1 gm PO AC-TID 30 Days #90 tab 12/07/22 amLODIPine [Norvasc] 10 mg PO DAILY #30 tab 12/07/22 cloNIDine HCL [Catapres] 0.1 mg PO TID #90 tab 12/07/22 Acetaminophen Tab [Tylenol] 1,000 mg PO Q6HR PRN #30 tablet 05/24/23 Cefuroxime [Ceftin] 250 mg PO BID 14 Days #28 tab 06/07/23 HYDROcodone/APAP 5-325MG [Geraldine 1 tab PO Q6H PRN #9 tab 06/07/23 5-325] metroNIDAZOLE [Flagyl] 500 mg PO TID 14 Days #42 tab 06/07/23 Allergies Allergy/AdvReac Type Severity Reaction Status Date / Time iron AdvReac Severe Nausea & Verified 06/03/23 18:04 Vomiting & Diarrhea ciprofloxacin [From Cipro] AdvReac UNCONTROLLABLE Verified 06/03/23 18:04 EMOTIONS PER PT Pertussis Vaccines AdvReac seizures Verified 06/03/23 18:04 Review of Systems ROS Statement: Those systems with pertinent positive or pertinent negative responses have been documented in the HPI. ROS Other: All systems not noted in ROS Statement are negative. 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 none since then, SWOLLEN OPTICAL NERVE & RETINA, STATES VISION BLURRED AT TIMES, PSEUDO TUMOR BRAIN, HX GOUT, ANEMIA, KIDNEY FAILURE-HAS DIALYSIS fistula LUE for HEMODIALYSIS [id number] FSGS (FOCAL SEGMENTAL GLOMERULOSCLEROSIS), COLITIS, DIVERTICULITIS, BLEEDING GASTRIC ULCER, colostomy History of Any Multi-Drug Resistant Organisms: None Reported Past Surgical History: Bowel Resection, Section, Cholecystectomy Additional Past Surgical History / Comment(s): peritoneal dialysis catheter and removal, Fistual LUE., sigmoid colectomy with colostomy, percutaneous cholecystostomy tube insertion and removal, lysis of adhesions Past Anesthesia/Blood Transfusion Reactions: No Reported Reaction Past Psychological History: Anxiety Smoking Status: Former smoker Past Alcohol Use History: None Reported, Occasional Past Drug Use History: Marijuana - Past Family History Father Family Medical History: Myocardial Infarction ([place]) Additional Family Medical History / Comment(s): FATHER AT AGE 35 OF MASSIVE HEART ATTACK Mother Family Medical History: Cancer, Deep Vein Thrombosis (DVT) Additional Family Medical History / Comment(s): SKIN CANCER General Exam Limitations: no limitations General appearance: alert, in no apparent distress Head exam: Present: atraumatic, normocephalic, normal inspection Eye exam: Present: normal appearance, PERRL, EOMI. Absent: scleral icterus, conjunctival injection, periorbital swelling ENT exam: Present: normal exam, mucous membranes moist Neck exam: Present: normal inspection. Absent: tenderness, meningismus, lymphadenopathy Respiratory exam: Present: normal lung sounds bilaterally. Absent: respiratory distress, wheezes, rales, rhonchi, stridor Cardiovascular Exam: Present: regular rate, normal rhythm, normal heart sounds. Absent: systolic murmur, diastolic murmur, rubs, gallop, clicks GI/Abdominal exam: Present: soft, normal bowel sounds. Absent: distended, tend erness, guarding, rebound, rigid Extremities exam: Present: normal inspection, full ROM, normal capillary refill. Absent: tenderness, pedal edema, joint swelling, calf tenderness Back exam: Present: normal inspection Neurological exam: Present: alert, oriented X3, CN II-XII intact Psychiatric exam: Present: normal affect, normal mood Skin exam: Present: warm, dry, intact, normal color. Absent: rash Course Vital Signs 06/03/23 06/03/23 06/03/23 12:43 13:46 17:10 Temperature 98.0 F Pulse Rate 69 83 Respiratory 18 18 Rate Blood Pressure 191/94 182/105 O2 Sat by Pulse 100 97 Oximetry 06/03/23 18:49 Temperature 98.2 F Pulse Rate 75 Respiratory 16 Rate Blood Pressure 185/99 O2 Sat by Pulse 98 Oximetry - Reevaluation(s) Reevaluation #1: 06/03/23 17:24 Medical records reviewed Reevaluation #2: 06/03/23 17:24 Patient symptoms unchanged Reevaluation #3: 06/03/23 17:24 Patient informed of results and questions answered Reevaluation #4: 06/03/23 17:25 Was pt. sent in by a medical professional or institution (, PA, TECHNOLOGIES DIVISION CHAIR, urgent care, hospital, or fci...) When possible be specific @ -no Did you speak to anyone other than the patient for history (EMS, parent, family, police, friend...)? What history was obtained from this source @ -no Did you review nursing and triage notes (agree or disagree)? Why? @ -agree Are old charts reviewed (outside hosp., previous admission, EMS record, old EKG, old radiological studies, urgent care reports/EKG's, fci records)? Report findings @ -yes Differential Diagnosis (chest pain, altered mental status, abdominal pain women, abdominal pain men, vaginal bleeding, weakness, fever, dyspnea, syncope, headache, dizziness, GI bleed, back pain, seizure, CVA, palpatations, mental health, musculoskeletal)? @ -prior EKG interpreted by me (3pts min.). @ -yes X-rays interpreted by me (1pt min.). @ -yes negative for acute disease CT interpreted by me (1pt min.). @ -no U/S interpreted by me (1pt. min.). @ -no What testing was considered but not performed or refused? (CT, X-rays, U/S, labs)? Why? @ -none What meds were considered but not given or refused? Why? @ -none Did you discuss the management of the patient with other professionals (professionals i.e. , PA, TECHNOLOGIES DIVISION CHAIR, lab, RT, psych nurse, social work instructor, director child, teacher, loan officer assistant, oil field caser)? Give summary @ -no Was smoking cessation discussed for >3mins.? @ -no Was critical care preformed (if so, how long)? @ -no Were there social determinants of health that impacted care today? How? (Homelessness, low income, unemployed, alcoholism, drug addiction, transportation, low edu. Level, literacy, decrease access to med. care, long term, rehab)? @ -none Was there de-escalation of care discussed even if they declined (Discuss DNR or withdrawal of care, Hospice)? DNR status @ -no What co-morbidities impacted this encounter? (DM, HTN, Smoking, COPD, CAD, Cancer, CVA, ARF, Chemo, Hep., AIDS, mental health diagnosis, sleep apnea, morbid obesity)? @ -none Was patient admitted / discharged? Hospital course, mention meds given and route, prescriptions, significant lab abnormalities, going to OR and other pertinent info. @ - 42 female to ER for evaluation abdominal pain severe abdominal pain here in the ER with history abdominal pain history of dialysis on dialysis and missed dialysis today. Patient will be admitted for possible need for dialysis as well as symptom control Admitted Undiagnosed new problem with uncertain prognosis? @ -no Drug Therapy requiring intensive monitoring for toxicity (Heparin, Nitro, Insulin, Cardizem)? @ -no Were any procedures done? @ -no Diagnosis/symptom? @ -Abdominal pain, need for dialysis Acute, or Chronic, or Acute on Chronic? @ -Acute Uncomplicated (without systemic symptoms) or Complicated (systemic symptoms)? @ -Complicated Side effects of treatment? @ -no Exacerbation, Progression, or Severe Exacerbation? @ -exacerbation Poses a threat to life or bodily function? How? (Chest pain, USA, ME, pneumonia, PE, COPD, DKA, ARF, appy, cholecystitis, CVA, Diverticulitis, Homicidal, Suicidal, threat to staff... and all critical care pts) @ -yes significant extreme disease Reevaluation #5: Differential Abdominal Pain Men: Appendicitis, cholecystitis, diverticulosis, ischemic bowel, pancreatitis, hepatitis, UTI, gastroenteritis, AAA, incarcerated hernia, bowel obstruction, constipation, inflammatory bowel, hepatitis, peptic ulcer disease, splenic infarction, perforated viscus, testicular torsion, this is not meant to be an a ll-inclusive list - Consultations Consultation #1: Poke with [facility] who agrees to admit the patient Consultation #2: Spoke with Dr. Terrazas who will see this patient in the ER Medical Decision Making - Medical Decision Making 42 female to ER for evaluation abdominal pain severe abdominal pain here in the ER with history abdominal pain history of dialysis on dialysis and missed dialysis today. Patient will be admitted for possible need for dialysis as well as symptom control - Lab Data Result diagrams: 06/06/23 05:57 06/06/23 05:57 Lab Results 06/03/23 06/03/23 06/03/23 Range/Units 13:05 13:05 13:05 WBC 15.8 H (3.8-10.6) k/uL RBC 3.17 L (3.80-5.40) m/uL Hgb 9.6 L D (11.4-16.0) gm/dL Hct 29.0 L (34.0-46.0) % MCV 91.5 (80.0-100.0) fL MCH 30.4 (25.0-35.0) pg MCHC 33.2 (31.0-37.0) g/dL RDW 16.8 H (11.5-15.5) % Plt Count 316 D (150-450) k/uL MPV 7.9 Neutrophils % 87 % Lymphocytes % 8 % Monocytes % 4 % Eosinophils % 1 % Basophils % 0 % Neutrophils # 13.7 H (1.3-7.7) k/uL Lymphocytes # 1.2 (1.0-4.8) k/uL Monocytes # 0.6 (0-1.0) k/uL Eosinophils # 0.2 (0-0.7) k/uL Basophils # 0.1 (0-0.2) k/uL Hypochromasia Slight Anisocytosis Slight PT 10.5 (10.0-12.5) sec INR 1.0 (<1.2) APTT 22.9 (22.0-30.0) sec Sodium 143 (137-145) mmol/L Potassium 4.2 (3.5-5.1) mmol/L Chloride 105 (98-107) mmol/L Carbon Dioxide 23 (22-30) mmol/L Anion Gap 15 mmol/L BUN 53 H (7-17) mg/dL Creatinine 10.10 H* (0.52-1.04) mg/dL Est GFR (CKD-EPI)AfAm 5 (>60 ml/min/1.73 sqM) Est GFR (CKD-EPI)NonAf 4 (>60 ml/min/1.73 sqM) Glucose 106 H (74-99) mg/dL Plasma Lactic Acid Jame (0.7-2.0) mmol/L Calcium 8.9 (8.4-10.2) mg/dL Phosphorus 5.8 H (2.5-4.5) mg/dL Magnesium 1.8 (1.6-2.3) mg/dL Total Bilirubin 1.0 (0.2-1.3) mg/dL AST 27 (14-36) U/L ALT 14 (4-34) U/L Alkaline Phosphatase 76 (38-126) U/L Troponin I (0.000-0.034) ng/mL NT-Pro-B Natriuret Pep 00105 pg/mL Total Protein 6.6 (6.3-8.2) g/dL Albumin 3.6 (3.5-5.0) g/dL Lipase 238 (23-300) U/L 06/03/23 06/03/23 Range/Units 13:05 13:05 WBC (3.8-10.6) k/uL RBC (3.80-5.40) m/uL Hgb (11.4-16.0) gm/dL Hct (34.0-46.0) % MCV (80.0-100.0) fL MCH (25.0-35.0) pg MCHC (31.0-37.0) g/dL RDW (11.5-15.5) % Plt Count (150-450) k/uL MPV Neutrophils % % Lymphocytes % % Monocytes % % Eosinophils % % Basophils % % Neutrophils # (1.3-7.7) k/uL Lymphocytes # (1.0-4.8) k/uL Monocytes # (0-1.0) k/uL Eosinophils # (0-0.7) k/uL Basophils # (0-0.2) k/uL Hypochromasia Anisocytosis PT (10.0-12.5) sec INR (<1.2) APTT (22.0-30.0) sec Sodium (137-145) mmol/L Potassium (3.5-5.1) mmol/L Chloride (98-107) mmol/L Carbon Dioxide (22-30) mmol/L Anion Gap mmol/L BUN (7-17) mg/dL Creatinine (0.52-1.04) mg/dL Est GFR (CKD-EPI)AfAm (>60 ml/min/1.73 sqM) Est GFR (CKD-EPI)NonAf (>60 ml/min/1.73 sqM) Glucose (74-99) mg/dL Plasma Lactic Acid Jame 1.6 (0.7-2.0) mmol/L Calcium (8.4-10.2) mg/dL Phosphorus (2.5-4.5) mg/dL Magnesium (1.6-2.3) mg/dL Total Bilirubin (0.2-1.3) mg/dL AST (14-36) U/L ALT (4-34) U/L Alkaline Phosphatase (38-126) U/L Troponin I <0.012 (0.000-0.034) ng/mL NT-Pro-B Natriuret Pep pg/mL Total Protein (6.3-8.2) g/dL Albumin (3.5-5.0) g/dL Lipase (23-300) U/L - EKG Data -: EKG Interpreted by Me (EKG is sinus 79 WV 152 QRS 123 QTc 410) - Radiology Data Radiology results: report reviewed (Chest x-ray and KUB are negative for acute disease), image reviewed Disposition Clinical Impression: Acute renal failure, EMERSON (acute kidney injury), ESRD on dialysis, Abdominal pain, Intractable nausea and vomiting, Dehydration Disposition: ADMITTED IP TO THIS HOSP Condition: Fair Is patient prescribed a controlled substance at d/c from ED?: No Time of Disposition: 16:30
[2023-06-03] MEDS: SODIUM CHLORIDE 0.9% 1,000 ML IV STA ×2 (13:11→13:12)
[2023-06-03] MEDS: SODIUM CHLORIDE 0.9% 500 ML 500 ML IV STA (13:12)
[2023-06-03] MEDS: ONDANSETRON 4 MG/2 ML VIAL IVP STA (13:15)
[2023-06-03 13:28] LABS: Anisocytosis Slight; Basophils # (A) 0.1 k/uL (0-0.2); Basophils % (A) 0 %; Eosinophils # (A) 0.2 k/uL (0-0.7); Eosinophils % (A) 1 %; Hypochromasia Slight; Lymphocytes # (A) 1.2 k/uL (1.0-4.8); Lymphocytes % (A) 8 %; MCH 30.4 pg (25.0-35.0); MCHC 33.2 g/dL (31.0-37.0); MCV 91.5 fL (80.0-100.0); Mean Platelet Volume 7.9; Monocytes # (A) 0.6 k/uL (0-1.0); Monocytes % (A) 4 %; Neutrophils # (A) 13.7 k/uL (1.3-7.7); Neutrophils % (A) 87 %; RBC 3.17 m/uL (3.80-5.40); RDW 16.8 % (11.5-15.5); WBC 15.8 k/uL (3.8-10.6)
[2023-06-03] MEDS: HYDROmorphone 1 MG/ML 1 ML SYRINGE IVP STA ×2 (13:28→16:58)
[2023-06-03 13:30] LABS: HGB 9.6 gm/dL (11.4-16.0); Platelet Count 316 k/uL (150-450)
[2023-06-03 13:40] LABS: ALT 14 U/L (4-34); AST 27 U/L (14-36); African American GFR (CKD) 5 (>60 ml/min/1.73 sqM); Albumin 3.6 g/dL (3.5-5.0); Alkaline Phosphatase 76 U/L (38-126); Anion Gap 15 mmol/L; Blood Urea Nitrogen 53 mg/dL (7-17); Calcium 8.9 mg/dL (8.4-10.2); Carbon Dioxide 23 mmol/L (22-30); Chloride 105 mmol/L (98-107); Glucose 106 mg/dL (74-99); Lipase 238 U/L (23-300); Magnesium 1.8 mg/dL (1.6-2.3); Non-African American GFR(CKD) 4 (>60 ml/min/1.73 sqM); Phosphorus 5.8 mg/dL (2.5-4.5); Potassium 4.2 mmol/L (3.5-5.1); Sodium 143 mmol/L (137-145); Total Protein 6.6 g/dL (6.3-8.2)
[2023-06-03 13:47] LABS: NT-Pro-B-Type Natriuretic Pept 21500 pg/mL
[2023-06-03 13:53] LABS: Partial Thromboplastin Time 22.9 sec (22.0-30.0); Prothrombin Time 10.5 sec (10.0-12.5)
--- NOTE | 2023-06-03 16:32 | XR ---
EXAMINATION TYPE: XR KUB portable DATE OF EXAM: 06/03/2023 4:15 PM CLINICAL INDICATION:Female, 42 years old with history of pain; COMPARISON: None. TECHNIQUE: One radiographic view of the abdomen was obtained. FINDINGS: Surgical clips project over the abdomen. The bowel gas pattern is nonspecific without dilat ed loops of small or large bowel. There is no evidence for organomegaly or pneumoperitoneum. The oss eous structures are intact. No abnormal calcifications are present. Fecal material and gas are demon strated throughout the colon and rectum. IMPRESSION: Nonspecific bowel gas pattern without radiographic evidence for acute process.
--- NOTE | 2023-06-03 16:34 | XR ---
EXAMINATION TYPE: XR chest 1V portable DATE OF EXAM: 06/03/2023 4:15 PM CLINICAL INDICATION:Female, 42 years old with history of pain; COMPARISON: Chest radiographs from and 12/17/2022 TECHNIQUE: XR chest 1V portable Frontal view of the chest. FINDINGS: Lungs/Pleura: There is no evidence of pleural effusion, focal consolidation, or pneumothorax. Pulmonary vascularity: Unremarkable. Heart/mediastinum: Cardiomediastinal silhouette is unremarkable. Musculoskeletal: No acute osseous pathology. Other findings: None Left chest wall catheter with tip in the right atrium. IMPRESSION: No acute cardiopulmonary disease/process.
[2023-06-03] MEDS ORDERED: NALOXONE 0.4 MG/ML 1 ML VIAL IV PRN (16:45)
[2023-06-03] MEDS: SODIUM CHLORIDE 0.9% 1,000 ML IV SCH (18:55)
[2023-06-03] MEDS: HYDROmorphone 1 MG/ML 1 ML SYRINGE IVP PRN (21:06)
[2023-06-03] MEDS ORDERED: ACETAMINOPHEN TAB 500 MG TAB PO PRN (22:50)
[2023-06-03] MEDS ORDERED: SIMETHICONE 40 MG/0.6 ML DROPS 2,000 MG/30 ML BOTTLE PO PRN (22:50)
[2023-06-03] MEDS: DARBEPOETIN ALFA 40 MCG/0.4 ML SYRINGE SQ SCH (23:45)
[2023-06-03] MEDS: lisinopriL 20 MG TAB PO SCH (23:45)
[2023-06-03] MEDS: METOPROLOL TARTRATE 50 MG TAB PO SCH (23:45)
[2023-06-03] MEDS: hydrALAZINE HCL 50 MG TAB PO SCH (23:45)
[2023-06-04] MEDS: HYDROcodone/APAP 5-325MG 1 EACH TAB PO PRN (02:06)
[2023-06-04] MEDS: ONDANSETRON 4 MG/2 ML VIAL IVP PRN (06:13)
[2023-06-04] MEDS: SEVELAMER 800 MG TAB PO SCH (06:14)
[2023-06-04] MEDS: SUCRALFATE 1 GM TAB PO SCH (06:14)
[2023-06-04] MEDS: amLODIPine 10 MG TAB PO SCH (09:42)
[2023-06-04] MEDS: FAMOTIDINE 20 MG TAB PO SCH (09:42)
[2023-06-04] MEDS: cloNIDine HCL 0.1 MG TAB PO SCH (09:42)
[2023-06-04] MEDS: FOLIC ACID-VIT B COMPLEX-VIT C 1 CAP PO SCH (09:44)
[2023-06-04] MEDS: AMOXIC-POT CLAV 500-125 MG 1 EACH TAB PO SCH (09:44)
[2023-06-04 11:40] LABS: Phosphorus 7.7 mg/dL (2.4-5.1)
[2023-06-04 11:41] LABS: ALT 12 U/L (8-44); AST 19 U/L (13-35); Albumin 3.3 g/dL (3.8-4.9); Albumin/Globulin Ratio 1.32 Ratio (1.60-3.17); Alkaline Phosphatase 70 U/L (41-126); BUN/Creat Ratio 4.65 Ratio (12.00-20.00); Blood Urea Nitrogen 54.9 mg/dL (9.0-27.0); Calcium 8.6 mg/dL (8.7-10.3); Carbon Dioxide 20.8 mmol/L (21.6-31.8); Chloride 102 mmol/L (96-109); Globulin 2.5 g/dL (1.6-3.3); Glucose 88 mg/dL (70-110); Potassium 4.3 mmol/L (3.5-5.5); Sodium 141 mmol/L (135-145); Total Bilirubin <0.2 mg/dL (0.3-1.2); Total Protein 5.8 g/dL (6.2-8.2)
[2023-06-04 13:12] LABS: Anisocytosis Slight; Basophils # (A) 0.1 k/uL (0-0.2); Basophils % (A) 0 %; Eosinophils # (A) 0.2 k/uL (0-0.7); Eosinophils % (A) 1 %; HCT 26.7 % (34.0-46.0); HGB 8.6 gm/dL (11.4-16.0); Lymphocytes # (A) 0.9 k/uL (1.0-4.8); Lymphocytes % (A) 7 %; MCH 29.3 pg (25.0-35.0); MCHC 32.2 g/dL (31.0-37.0); Mean Platelet Volume 7.3; Monocytes # (A) 0.3 k/uL (0-1.0); Monocytes % (A) 3 %; Neutrophils # (A) 12.2 k/uL (1.3-7.7); Neutrophils % (A) 89 %; Platelet Count 278 k/uL (150-450); RBC 2.94 m/uL (3.80-5.40); RDW 16.6 % (11.5-15.5); WBC 13.8 k/uL (3.8-10.6)
--- NOTE | 2023-06-04 13:15 | P.NPCON ---
History of Present Illness - Reason for Consult end stage renal disease - History of Present Illness Patient is a 42-year-old female with end-stage renal disease maintained on hemodialysis on a Saturday schedule via left IJ permacath. Patient is admitted to the hospital with complaints of abdominal pain. She also had nausea and vomiting. This seems to have improved slightly. Awaiting s urgical evaluation. Patient missed hemodialysis yesterday and therefore she will be dialyzed today. Blood pressure is elevated with systolic blood pressure 170s to 180s No complaints of chest pain or shortness of breath No history of fever chills or cough Review of Systems As per HPI 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 none since then, SWOLLEN OPTICAL NERVE & RETINA, STATES VISION BLURRED AT TIMES, PSEUDO TUMOR BRAIN, HX GOUT, ANEMIA, KIDNEY FAILURE-HAS DIALYSIS fistula LUE for HEM ODIALYSIS [id number] FSGS (FOCAL SEGMENTAL GLOMERULOSCLEROSIS), COLITIS, DIVERTICULITIS, BLEEDING GASTRIC ULCER, colostomy History of Any Multi-Drug Resistant Organisms: None Reported Past Surgical History: Bowel Resection, Section, Cholecystectomy Additional Past Surgical History / Comment(s): peritoneal dialysis catheter and removal, Fistual LUE., sigmoid colectomy with colostomy, percutaneous cholecystostomy tube insertion and removal, lysis of adhesions Past Anesthesia/Blood Transfusion Reactions: No Reported Reaction Past Psychological History: Anxiety Additional Psychological History / Comment(s): CURRENT ANXIETY Smoking Status: Former smoker Past Alcohol Use History: None Reported, Occasional Additional Past Alcohol Use History / Comment(s): QUIT SMOKING 2001, SMOKED 1/2 PPD, SMOKED 3 YEARS. Past Drug Use History: Marijuana Additional Drug Use History / Comment(s): Gummies. for sleep and pain. Pt aware not to use 24 hrs before procedure - Past Family History Father Family Medical History: Myocardial Infarction ([place]) Additional Family Medical History / Comment(s): FATHER AT AGE 35 OF MASSIVE HEART ATTACK Mother Family Medical History: Cancer, Deep Vein Thrombosis (DVT) Additional Family Medical History / Comment(s): SKIN CANCER Medications and Allergies Home Medications Medication Instructions Recorded Confirmed Type Metoprolol Tartrate [Lopressor] 50 mg PO BID 11/11/21 06/03/23 History Famotidine [Pepcid] 20 mg PO DAILY #30 tablet 11/23/22 06/03/23 Rx Ondansetron [Zofran] 4 mg PO Q8HR PRN #20 tab 11/23/22 06/03/23 Rx tiZANidine HCL [Zanaflex] 4 mg PO HS 11/30/22 06/03/23 History Sucralfate [Carafate] 1 gm PO AC-TID 30 Days #90 tab 12/07/22 06/03/23 Rx amLODIPine [Norvasc] 10 mg PO DAILY #30 tab 12/07/22 06/03/23 Rx cloNIDine HCL [Catapres] 0.1 mg PO TID #90 tab 12/07/22 06/03/23 Rx Folic Acid-Vit B Complex-Vit C 1 cap PO DAILY 12/12/22 06/03/23 History [Nephrocaps] HYDROcodone/APAP 5-325MG [Swan 1 tab PO Q6H PRN 05/14/23 06/03/23 History 5-325] Amoxic-Pot Clav 500-125 mg 1 tab PO Q24HR 14 Days #14 tab 05/23/23 06/03/23 Rx [Augmentin 500-125 mg] Acetaminophen Tab [Tylenol] 1,000 mg PO Q6HR PRN #30 tablet 05/24/23 06/03/23 Rx Sucroferric Oxyhydroxide [Velphoro] 1,000 mg PO TID-W/MEALS 05/26/23 06/03/23 History hydrALAZINE HCL [Apresoline] 100 mg PO TID 05/26/23 06/03/23 History lisinopriL [Zestril] 20 mg PO BID 05/26/23 06/03/23 History Darbepoetin Shahram [Aranesp] 40 mcg SQ MO 06/03/23 06/03/23 History Simethicone 40 mg/0.6 ml Drops 40 mg PO QID PRN 06/03/23 06/03/23 History [Mylicon Drops] Allergies Allergy/AdvReac Type Severity Reaction Status Date / Time iron AdvReac Severe Nausea & Verified 06/03/23 18:04 Vomiting & Diarrhea ciprofloxacin [From Cipro] AdvReac UNCONTROLLABLE Verified 06/03/23 18:04 EMOTIONS PER PT Pertussis Vaccines AdvReac seizures Verified 06/03/23 18:04 Physical Exam Vitals: Vital Signs Temp Pulse Pulse Resp BP BP Pulse Ox 06/04/23 07:08 97.8 F 75 18 179/89 97 06/04/23 02:44 98.6 F 86 14 148/79 97 06/04/23 02:00 98.3 F 72 16 184/89 98 06/03/23 20:00 98 F 74 18 175/96 98 06/03/23 18:49 98.2 F 75 16 185/99 98 06/03/23 17:10 83 18 182/105 97 06/03/23 13:46 191/94 Intake and Output 06/03/23 06/04/23 06/04/23 22:59 06:59 14:59 Output Total 0 Balance 0 Output: Urine 0 Other: Voiding Method Toilet Weight 83.007 kg Patient is awake, comfortable, no acute distress Seen on hemodialysis Examination of the heart S1 and S2 Examination of the lungs bilateral breath sounds are heard Abdomen is soft, mild tenderness right upper and lower abdomen Examination lower extremities shows no significant edema UTILITY OPERATOR YARN exam grossly intact Results - Lab Results Most recent lab results Calcium 8.6 mg/dL (8.7-10.3) L 06/04/23 08:09 Phosphorus 7.7 mg/dL (2.4-5.1) H 06/04/23 08:09 Magnesium 2.0 mg/dL (1.5-2.4) 06/04/23 08:09 06/03/23 13:05 06/04/23 08:09 Assessment and Plan Assessment: 1. End-stage renal disease maintained on hemodialysis on Saturday schedule. Access Left IJ Permcath, thrombosed left arm AVG, status post thrombectomy on 05/20/2023. 2. Hypertension with chronic kidney disease. Stable. 3. Chronic kidney disease mineral bone disease- on Velphoro 4. Anemia of chronic kidney disease. On Aranesp. 5. History of perforated diverticulitis with pelvic abscess s/p colostomy. s/p Ex-lap with lysis of adhesions on 05/17/2023 during her previous admission. 6. Abdominal pain, awaiting surgical evaluation Plan: Hemodialysis today and repeat in a.m. Maintain Aranesp Continue with phosphate binders, velphoro
--- NOTE | 2023-06-04 13:37 | P.PN ---
Subjective Progress Note Date: 06/04/23 CHIEF COMPLAINT: Abdominal pain with vomiting HISTORY OF PRESENT ILLNESS: Patient presented back to the hospital with complaints of abdominal pain and vomiting after eating barbecue chicken sliders. Patient has history of open cholecystectomy. She also reports that she had diarrhea after eating. Afebrile. WBC 15.8 down to 13.8 Hgb down to 8.6 PHYSICAL EXAM: VITAL SIGNS: Reviewed GENERAL: Well-developed in no acute distress. HEENT: No sclera icterus. Extraocular movements grossly intact. Moist buccal mucosa. Head is atraumatic, normocephalic. Hears conversational speech. No nasal drainage. NECK: Supple without lymphadenopathy. CHEST: Non-labored respirations and equal bilateral excursions. CARDIOVASCULAR: Palpable 2+ radial pulses. ABDOMEN: Soft. Nondistended. Tenderness to palpation right upper quadrant MUSCULOSKELETAL: No clubbing or cyanosis. NEUROLOGIC: No focal or lateralizing signs. Cranial nerves II through XII grossly intact. PSYCH: Appropriate affect. Alert and oriented to person, place and time. SKIN: Well perfused. Good skin turgor. ASSESSMENT: 1. Abdominal pain with nausea vomiting and diarrhea after eating fatty meal. 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 History of cholecystectomy PLAN: -Patient to be on a food challenge. She will be placed on regular diet and have trial of fatty foods to see if pain and symptoms are reproducible. -Continue to monitor -Further recommendations forthcoming per surgeon Physician Geothermal Technician note has been reviewed by physician. Signing provider agrees with the documented findings, assessment, and plan of care. Objective - Vital Signs Vital signs: Vital Signs Temp 97.8 F 06/04/23 07:08 Pulse 75 06/04/23 07:08 Resp 18 06/04/23 07:08 BP 179/89 06/04/23 07:08 Pulse Ox 97 06/04/23 07:08 FiO2 Intake & Output 06/03/23 06/04/23 06/04/23 18:59 06:59 18:59 Output Total 0 Balance 0 Weight 83.007 kg 83.007 kg 83.007 kg Output: Urine 0 Other: Voiding Method Toilet - Labs CBC & Chem 7: 06/04/23 12:21 06/04/23 08:09 Labs: Abnormal Lab Results - Last 24 Hours (Table) 06/03/23 06/04/23 06/04/23 Range/Units 13:05 08:09 12:21 WBC 13.8 H (3.8-10.6) k/uL RBC 2.94 L (3.80-5.40) m/uL Hgb 8.6 L (11.4-16.0) gm/dL Hct 26.7 L (34.0-46.0) % RDW 16.6 H (11.5-15.5) % Neutrophils # 12.2 H (1.3-7.7) k/uL Lymphocytes # 0.9 L (1.0-4.8) k/uL Carbon Dioxide 20.8 L (21.6-31.8) mmol/L Anion Gap 18.20 H (4.00-12.00) mmol/L BUN 53 H 54.9 H (7-17) mg/dL Creatinine 10.10 H* 11.8 A* (0.52-1.04) mg/dL Est GFR (CKD-EPI) 4 L (>=60) BUN/Creatinine Ratio 4.65 L (12.00-20.00) Ratio Glucose 106 H (74-99) mg/dL Calcium 8.6 L (8.7-10.3) mg/dL Phosphorus 5.8 H 7.7 H (2.5-4.5) mg/dL Total Bilirubin <0.2 L (0.3-1.2) mg/dL Total Protein 5.8 L (6.2-8.2) g/dL Albumin 3.3 L (3.8-4.9) g/dL Albumin/Globulin Ratio 1.32 L (1.60-3.17) Ratio
[2023-06-04 13:52] VITALS: BMI 31.4
[2023-06-04] MEDS: IOPAMIDOL CONTRAST (ORAL USE) VIAL PO PRN (14:27)
--- NOTE | 2023-06-04 16:30 | CT ---
EXAMINATION: CT ABDOMEN AND PELVIS WITH IV CONTRAST DATE OF EXAMINATION: 06/04/2023. COMPARISON: None available. INDICATION: Abdominal pain. Recent abdominal surgery. PROCEDURE: Axial CT of the abdomen and pelvis was performed with contrast and sagittal and coronal reformatted images were performed. CT dose lowering techniques were used, to include: automated expos ure control, adjustment for patient size, and/or use of iterative reconstruction. 80 mL of Isovue-300 was given intravenously. FINDINGS: LOWER CHEST : The visualized lung bases are clear. There are no pleural or pericardial effusions. M oderate cardiomegaly. ABDOMEN: Liver and Biliary system: Normal. Adrenal glands: Normal. Kidneys and ureters: There is marked bilateral renal atrophy with scattered calcifications within the kidneys bilaterally which are unchanged. Spleen: Normal. Pancreas: Normal. Gallbladder: Surgically absent. Lymph nodes, Peritoneum and mesentery: There is stranding seen throughout the mesentery as well as m ore prominent in the right upper quadrant and abdomen which may relate to the recent surgery. This is a similar distribution to the previous examination. Gastrointestinal tract: There are no dilated loops of bowel or free intraperitoneal air. There is a left lower quadrant colostomy. There is a parastomal hernia containing small bowel. Aorta/IVC: No aortic aneurysm. IVC normal. Abdominal wall: Surgical heike are seen within the midline abdomen.. There appears to be a seroma underlying the surgical heike. PELVIS: Fluid: There is no free fluid in the pelvis. Lymph Nodes: There is no pelvic or inguinal lymphadenopathy.. Urinary bladder: Normal. BONES: There are no osseous destructive lesions.. ADDITIONAL SIGNIFICANT FINDINGS: None. IMPRESSION: 1. Left lower quadrant colostomy with small parastomal hernia is similar to the previous examination. 2. Stranding seen throughout the mesentery and extending more prominent to the right upper quadrant i s a similar distribution when compared to the previous examination may relate to the recent surgery. This could potentially be inflammatory or infectious as well. 3. Thickening of the distal and terminal ileum likely related to an inflammatory or infectious ileiti s. Next line 4. Renal atrophy. 5. Cardiomegaly.
--- NOTE | 2023-06-04 20:01 | HP ---
HISTORY AND PHYSICAL CHIEF COMPLAINT: Abdominal pain, nausea, vomiting. HISTORY OF PRESENT ILLNESS: This is a 42-year-old woman with a past medical history of multiple medical problems including renal failure, on hemodialysis, had recent multiple abdominal surgeries. The patient had a bowel perforation from diverticulitis and subsequently the patient had a cholecystostomy tube for cholecystitis. Currently, the patient is complaining of abdominal pain. The patient was recently admitted last week and was given empiric antibiotics for presumed infection. There is no history of any fever, rigors, or chills at this time. White count is elevated. PAST MEDICAL HISTORY: Hypertension, seizure disorder. Rest of the history and rest of the chart is also reviewed. HOME MEDICATIONS: Reviewed include tizanidine. Dose and rest of medications reviewed. ALLERGIES: Iron, Cipro. Rest of the allergies noted. FAMILY HISTORY: History of myocardial infarction in the family. SOCIAL HISTORY: Previous history of smoking. REVIEW OF SYSTEMS: Fourteen-point review is negative except as mentioned earlier. PHYSICAL EXAMINATION: VITAL SIGNS: Pulse is 75, blood pressure 117/89 and respirations 18. HEENT: Conjunctivae normal. NECK: No JVD. CARDIOVASCULAR: S1, S2. RESPIRATIONS: Breath sounds diminished at the bases. ABDOMEN: Soft. Mild diffuse distention. Mild diffuse tenderness also, but no guarding. No rigidity. LEGS: No edema. NERVOUS SYSTEM: Nonfocal. SKIN: No ulcer, rash, bleeding. JOINTS: No active deforming arthropathy. LABORATORY DATA: WBC 15.2. Rest of the labs are noted. ASSESSMENT: 1. Abdominal pain, nausea, vomiting, rule out intraabdominal infection. 2. End-stage renal disease, on hemodialysis. 3. History of bowel perforation surgery. 4. History of cholecystostomy tube. 5. Elevated WBC. 6. Hypertension. 7. Seizure disorder. 8. Multiple complex medical issues. RECOMMENDATIONS AND DISCUSSION: This is a 42-year-old woman, who presented with multiple complex medical issues. At this time, we will monitor the patient closely. I would recommend empiric antibiotics. Follow the cultures. Surgical evaluation. Infectious Disease evaluation. CT scan of the abdomen and pelvis. Guarded prognosis because of multiple complex medical issues. Further recommendations to follow. See orders for further details. Home medications will be continued once they are confirmed and we will send her report to Dr. Keita, Primary Physician also. MMODL / IJN: [id number] /
[2023-06-04] MEDS: tiZANidine 4 MG TAB PO SCH (22:09)
[2023-06-04] MEDS: PIPERACILLIN-TAZOBACTAM 3.375 GM in SODIUM CHLORIDE 0.9% 100 ML IVPB SCH (22:10)
--- NOTE | 2023-06-05 08:18 | P.CONS ---
History of Present Illness - Reason for Consult Consult date: 06/04/23 Infection Requesting physician: Joao Chase - Chief Complaint Diarrhea abdominal pain and vomiting x 1 day - History of Present Illness Patient is a 42-year-old female with a past medical history significant for hypertension end-stage disease on dialysis patient did have a history of perforated diverticulitis status post diverting colostomy, also have a history of cholecystitis status postcholecystectomy recently admitted to the hospital for possible reversal of colostomy she was noticed to have some fluid in the pelvis suspicious for abscess procedure was abandoned culture was subsequently negative and the patient was discharged on oral antibiotic subse quently readmitted to the hospital mostly with the nausea and vomiting and apparently the workup was negative and the patient was discharged patient is brought back to the hospital last night after apparently patient started having diarrhea no blood or mucus in the stool did have a abdominal pain and then started throwing up patient denies having any fever or any chills patient denies having any headache or URI symptoms no chest pain shortness of breath or cough currently feeling better on presentation to the hospital patient was afebrile and no fever has been recorded subsequently patient was not tachycardic hypotensive or hypoxic she did have white count 15.8 BUN and creatinine elevated electrolytes are normal liver enzymes are normal lipase was 238 patient has been started on Zosyn infectious disease was consulted regarding infection, CT abdominal pelvis has been ordered and currently in progress Review of Systems Positive point and negatives has been mentioned in the HPI, complete review of systems was performed and all other systems are negative 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 none since then, SWOLLEN OPTICAL NERVE & RETINA, STATES VISION BLURRED AT TIMES, PSEUDO TUMOR BRAIN, HX GOUT, ANEMIA, KIDNEY FAILURE-HAS DIALYSIS fistula LUE for HEMODIALYSIS [id number] (FOCAL SEGMENTAL GLOMERULOSCLEROSIS), COLITIS, DIVERTICULITIS, BLEEDING GASTRIC ULCER, colostomy History of Any Multi-Drug Resistant Organisms: None Reported Past Surgical History: Bowel Resection, Section, Cholecystectomy Additional Past Surgical History / Comment(s): peritoneal dialysis catheter and removal, Fistual LUE., sigmoid colectomy with colostomy, percutaneous cholecystostomy tube insertion and removal, lysis of adhesions Past Anesthesia/Blood Transfusion Reactions: No Reported Reaction Past Psychological History: Anxiety Additional Psychological History / Comment(s): CURRENT ANXIETY Smoking Status: Former smoker Past Alcohol Use History: None Reported, Occasional Additional Past Alcohol Use History / Comment(s): QUIT SMOKING 2001, SMOKED 1/2 PPD, SMOKED 3 YEARS. Past Drug Use History: Marijuana Additional Drug Use History / Comment(s): Gummies. for sleep and pain. Pt aware not to use 24 hrs before procedure - Past Family History Father Family Medical History: Myocardial Infarction ([place]) Additional Family Medical History / Comment(s): FATHER AT AGE 35 OF MASSIVE HEART ATTACK Mother Family Medical History: Cancer, Deep Vein Thrombosis (DVT) Additional Family Medical History / Comment(s): SKIN CANCER Medications and Allergies Home Medications Medication Instructions Recorded Confirmed Type Metoprolol Tartrate [Lopressor] 50 mg PO BID 11/11/21 06/03/23 History Famotidine [Pepcid] 20 mg PO DAILY #30 tablet 11/23/22 06/03/23 Rx Ondansetron [Zofran] 4 mg PO Q8HR PRN #20 tab 11/23/22 06/03/23 Rx tiZANidine HCL [Zanaflex] 4 mg PO HS 11/30/22 06/03/23 History Sucralfate [Carafate] 1 gm PO AC-TID 30 Days #90 tab 12/07/22 06/03/23 Rx amLODIPine [Norvasc] 10 mg PO DAILY #30 tab 12/07/22 06/03/23 Rx cloNIDine HCL [Catapres] 0.1 mg PO TID #90 tab 12/07/22 06/03/23 Rx Folic Acid-Vit B Complex-Vit C 1 cap PO DAILY 12/12/22 06/03/23 History [Nephrocaps] HYDROcodone/APAP 5-325MG [Paradise 1 tab PO Q6H PRN 05/14/23 06/03/23 History 5-325] Amoxic-Pot Clav 500-125 mg 1 tab PO Q24HR 14 Days #14 tab 05/23/23 06/03/23 Rx [Augmentin 500-125 mg] Acetaminophen Tab [Tylenol] 1,000 mg PO Q6HR PRN #30 tablet 05/24/23 06/03/23 Rx Sucroferric Oxyhydroxide [Velphoro] 1,000 mg PO TID-W/MEALS 05/26/23 06/03/23 History hydrALAZINE HCL [Apresoline] 100 mg PO TID 05/26/23 06/03/23 History lisinopriL [Zestril] 20 mg PO BID 05/26/23 06/03/23 History Darbepoetin Shahram [Aranesp] 40 mcg SQ MO 06/03/23 06/03/23 History Simethicone 40 mg/0.6 ml Drops 40 mg PO QID PRN 06/03/23 06/03/23 History [Mylicon Drops] Allergies Allergy/AdvReac Type Severity Reaction Status Date / Time iron AdvReac Severe Nausea & Verified 06/03/23 18:04 Vomiting & Diarrhea ciprofloxacin [From Cipro] AdvReac UNCONTROLLABLE Verified 06/03/23 18:04 EMOTIONS PER PT Pertussis Vaccines AdvReac seizures Verified 06/03/23 18:04 Physical Exam Vitals: Vital Signs Temp Pulse Pulse Resp BP BP Pulse Ox 06/04/23 13:26 97.9 F 60 18 139/90 98 06/04/23 07:08 97.8 F 75 18 179/89 97 06/04/23 02:44 98.6 F 86 14 148/79 97 06/04/23 02:00 98.3 F 72 16 184/89 98 06/03/23 20:00 98 F 74 18 175/96 98 06/03/23 18:49 98.2 F 75 16 185/99 98 06/03/23 17:10 83 18 182/105 97 Intake and Output 06/03/23 06/04/23 06/04/23 22:59 06:59 14:59 Output Total 0 Balance 0 Output: Urine 0 Other: Voiding Method Toilet Weight 83.007 kg 83.007 kg GENERAL DESCRIPTION: Middle-aged female lying in bed, no distress. No tachypnea or accessory muscle of respiration use. HEENT: Shows Pallor , no scleral icterus. Oral mucous membrane is dry. No pharyngeal erythema or thrush NECK: Trachea central, no thyromegaly. LUNGS: Unlabored breathing. Clear to auscultation anteriorly. No wheeze or crackle. HEART: S1, S2, regular rate and rhythm. No loud murmur ABDOMEN: Soft, right-sided tenderness , no guarding or rigidity EXTREMITIES: No edema of feet. SKIN: No rash, no masses palpable. NEUROLOGICAL: The patient is awake, alert, oriented x3, mood and affect normal. Results CBC & Chem 7: 06/06/23 05:57 06/06/23 05:57 Labs: Abnormal Lab Results - Last 24 Hours (Table) 06/04/23 06/04/23 Range/Units 08:09 12:21 WBC 13.8 H (3.8-10.6) k/uL RBC 2.94 L (3.80-5.40) m/uL Hgb 8.6 L (11.4-16.0) gm/dL Hct 26.7 L (34.0-46.0) % RDW 16.6 H (11.5-15.5) % Neutrophils # 12.2 H (1.3-7.7) k/uL Lymphocytes # 0.9 L (1.0-4.8) k/uL Carbon Dioxide 20.8 L (21.6-31.8) mmol/L Anion Gap 18.20 H (4.00-12.00) mmol/L BUN 54.9 H (9.0-27.0) mg/dL Creatinine 11.8 A* (0.6-1.5) mg/dL Est GFR (CKD-EPI) 4 L (>=60) BUN/Creatinine Ratio 4.65 L (12.00-20.00) Ratio Calcium 8.6 L (8.7-10.3) mg/dL Phosphorus 7.7 H (2.4-5.1) mg/dL Total Bilirubin <0.2 L (0.3-1.2) mg/dL Total Protein 5.8 L (6.2-8.2) g/dL Albumin 3.3 L (3.8-4.9) g/dL Albumin/Globulin Ratio 1.32 L (1.60-3.17) Ratio Assessment and Plan (1) Abdominal pain Current Visit: Yes Status: Acute Priority: High Code(s): R10.9 - UNSPECIFIED ABDOMINAL PAIN SNOMED Code(s): 94416976 (2) Diarrhea Current Visit: Yes Status: Acute Code(s): R19.7 - DIARRHEA, UNSPECIFIED S NOMED Code(s): 50139957 (3) Leukocytosis Current Visit: No Status: Acute Code(s): D72.829 - ELEVATED WHITE BLOOD CELL COUNT, UNSPECIFIED SNOMED Code(s): 452205701 Plan: 1patient presented to hospital with diarrhea followed by abdominal pain and then vomiting patient did have elevated white count and noticed to be slightly tender in the right upper quadrant area however the patient did have a history of cholecystectomy and liver enzymes are normal keeping in mind started with the diarrhea and possible infectious colitis bilateral excluded. 2we will check a stool culture and stool for C. difficile. 3CT abdominal pelvis report will be followed currently in progress. 4continue with empiric Zosyn in view of some improvement in her symptoms We will follow on clinical condition and cultures to further adjust medication if needed Thank you for this consultation we will follow the patient along with you Dictation was produced using [employer] dictation software. please excuse any grammatical, word or spelling errors. Time with Patient: Greater than 30
[2023-06-05 08:41] LABS: Basophils # (A) 0.05 X 10*3/uL (0.00-0.10); Basophils % (A) 0.5 %; Eosinophils # (A) 0.17 X 10*3/uL (0.04-0.35); Eosinophils % (A) 1.7 %; HCT 23.4 % (37.2-46.3); HGB 7.3 g/dL (12.0-15.0); Lymphocytes # (A) 1.58 X 10*3/uL (0.90-5.00); Lymphocytes % (A) 15.8 %; MCH 29.2 pg (27.0-32.0); MCHC 31.2 g/dL (32.0-37.0); MCV 93.6 FL (80.0-97.0); Mean Platelet Volume 9.5 FL (9.5-12.2); Monocytes # (A) 0.61 X 10*3/uL (0.20-1.00); Monocytes % (A) 6.1 %; NRBC Per 100 WBC 0 X 10*3/uL (0.00-0.01); Neutrophils # (A) 7.54 X 10*3/uL (1.80-7.70); Neutrophils % (A) 75.4 %; Platelet Count 199 X 10*3/uL (140-440); RDW 16.3 % (11.5-14.5)
[2023-06-05 09:29] LABS: ALT 8 U/L (8-44); AST 11 U/L (13-35); Albumin 3.3 g/dL (3.8-4.9); Alkaline Phosphatase 69 U/L (41-126); BUN/Creat Ratio 3.69 Ratio (12.00-20.00); Blood Urea Nitrogen 29.9 mg/dL (9.0-27.0); Calcium 8.8 mg/dL (8.7-10.3); Chloride 98 mmol/L (96-109); Globulin 2.2 g/dL (1.6-3.3); Glucose 99 mg/dL (70-110); Potassium 4.2 mmol/L (3.5-5.5); Sodium 137 mmol/L (135-145); Total Bilirubin <0.2 mg/dL (0.3-1.2); Total Protein 5.5 g/dL (6.2-8.2)
--- NOTE | 2023-06-05 13:33 | P.PN ---
Subjective Patient is seen for follow-up for end-stage renal disease. Status post hemodialysis today with UF of 1.5 L. Trying to increase oral intake. Objective - Vital Signs Vital signs: Vital Signs Temp 98.5 F 06/05/23 12:06 Pulse 74 06/05/23 12:06 Resp 18 06/05/23 12:06 BP 163/92 06/05/23 12:06 Pulse Ox 95 06/05/23 07:36 FiO2 Intake & Output 06/04/23 06/05/23 06/05/23 18:59 06:59 18:59 Intake Total 400 400 Output Total 2400 1900 Balance -1999 -1500 Weight 83.007 kg Intake: Hemodialysis 400 400 Output: Hemodialysis 2400 1900 Other: Voiding Method Toilet # Voids 2 1 - Exam Patient is awake, comfortable, no acute distress Seen on hemodialysis Examination of the heart S1 and S2 Examination of the lungs bilateral breath sounds are heard Abdomen is soft, mild tenderness right upper and lower abdomen Examination lower extremities shows no significant edema 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 grossly intact - Labs CBC & Chem 7: 06/05/23 05:57 06/05/23 05:57 Labs: Abnormal Lab Results - Last 24 Hours (Table) 06/05/23 06/05/23 Range/Units 05:57 05:57 RBC 2.50 L (4.10-5.20) X 10*6/uL Hgb 7.3 L (12.0-15.0) g/dL Hct 23.4 L (37.2-46.3) % MCHC 31.2 L (32.0-37.0) g/dL RDW 16.3 H (11.5-14.5) % Immature Gran # 0.05 H (0.00-0.04) X 10*3/uL Anion Gap 14.00 H (4.00-12.00) mmol/L BUN 29.9 H (9.0-27.0) mg/dL Creatinine 8.1 A* (0.6-1.5) mg/dL Est GFR (CKD-EPI) 6 L (>=60) BUN/Creatinine Ratio 3.69 L (12.00-20.00) Ratio Total Bilirubin <0.2 L (0.3-1.2) mg/dL AST 11 L (13-35) U/L Total Protein 5.5 L (6.2-8.2) g/dL Albumin 3.3 L (3.8-4.9) g/dL Albumin/Globulin Ratio 1.50 L (1.60-3.17) Ratio Assessment and Plan Assessment: 1. End-stage renal disease maintained on hemodialysis on Saturday schedule. Access Left IJ Permcath, thrombosed left arm AVG, status post thrombectomy on 05/20/2023. 2. Hypertension with chronic kidney disease. Stable. 3. Chronic kidney disease mineral bone disease- on Velphoro 4. Anemia of chronic kidney disease. On Aranesp. 5. History of perforated diverticulitis with pelvic abscess s/p colostomy. s/p Ex-lap with lysis of adhesions on 05/17/2023 during her previous admission. 6. Abdominal pain, with diarrhea, maintained on antibiotics. Being followed by ID and general surgery Plan: Hemodialysis on Saturday with history of Saturday schedule Maintain Aranesp Continue with phosphate binders, velphoro
--- NOTE | 2023-06-05 15:36 | P.PN ---
Subjective Progress Note Date: 06/05/23 CHIEF COMPLAINT: Abdominal pain with vomiting HISTORY OF PRESENT ILLNESS: Patient presented back to the hospital with complaints of abdominal pain and vomiting after eating barbecue chicken sliders. Patient has history of open cholecystectomy. Patient complaining of diarrhea. She has had no further abdominal pain after eating fattier foods. Afebrile. WBC has normalized from 13.8-10 Hgb 7.3 stool for C. difficile negative PHYSICAL EXAM: VITAL SIGNS: Reviewed GENERAL: Well-developed in no acute distress. HEENT: No sclera icterus. Extraocular movements grossly intact. Moist buccal mucosa. Head is atraumatic, normocephalic. Hears conversational speech. No nasal drainage. NECK: Supple without lymphadenopathy. CHEST: Non-labored respirations and equal bilateral excursions. CARDIOVASCULAR: Palpable 2+ radial pulses. ABDOMEN: Soft. Nondistended. MUSCULOSKELETAL: No clubbing or cyanosis. NEUROLOGIC: No focal or lateralizing signs. Cranial nerves II through XII grossly intact. PSYCH: Appropriate affect. Alert and oriented to person, place and time. SKIN: Well perfused. Good skin turgor. ASSESSMENT: 1. Abdominal pain with nausea vomiting and diarrhea after eating fatty meal. 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 History of cholecystectomy PLAN: -Patient to be on a food challenge. She will be placed on regular diet and have trial of fatty foods to see if pain and symptoms are reproducible. -Continue to monitor Physician Environmental Protection Forester note has been reviewed by physician. Signing provider agrees with the documented findings, assessment, and plan of care. Objective - Vital Signs Vital signs: Vital Signs Temp 98.5 F 06/05/23 12:06 Pulse 74 06/05/23 12:06 Resp 18 06/05/23 12:06 BP 163/92 06/05/23 12:06 Pulse Ox 95 06/05/23 07:36 FiO2 Intake & Output 06/04/23 06/05/23 06/05/23 18:59 06:59 18:59 Intake Total 400 400 Output Total 2400 1900 Balance -1999 -1500 Weight 83.007 kg Intake: Hemodialysis 400 400 Output: Hemodialysis 2400 1900 Other: Voiding Method Toilet Toilet # Voids 2 1 - Labs CBC & Chem 7: 06/05/23 05:57 06/05/23 05:57 Labs: Abnormal Lab Results - Last 24 Hours (Table) 06/05/23 06/05/23 06/05/23 Range/Units 05:57 05:57 14:29 RBC 2.50 L (4.10-5.20) X 10*6/uL Hgb 7.3 L (12.0-15.0) g/dL Hct 23.4 L (37.2-46.3) % MCHC 31.2 L (32.0-37.0) g/dL RDW 16.3 H (11.5-14.5) % Immature Gran # 0.05 H (0.00-0.04) X 10*3/uL Anion Gap 14.00 H (4.00-12.00) mmol/L BUN 29.9 H (9.0-27.0) mg/dL Creatinine 8.1 A* (0.6-1.5) mg/dL Est GFR (CKD-EPI) 6 L (>=60) BUN/Creatinine Ratio 3.69 L (12.00-20.00) Ratio Total Bilirubin <0.2 L (0.3-1.2) mg/dL AST 11 L (13-35) U/L C-Reactive Protein 2.2 H (<1.0) mg/dL Total Protein 5.5 L (6.2-8.2) g/dL Albumin 3.3 L (3.8-4.9) g/dL Albumin/Globulin Ratio 1.50 L (1.60-3.17) Ratio
--- NOTE | 2023-06-05 21:34 | PN ---
PROGRESS NOTE DATE OF SERVICE: 06/05/2023 HISTORY OF PRESENT ILLNESS: This is a 42-year-old woman, who was admitted with abdominal pain, nausea, vomiting. She is being evaluated for possible intraabdominal infection. The patient is started on broad-spectrum IV antibiotics and Dr. Solomon is following the patient closely. Repeat CT scan has been ordered. The patient is also being evaluated by surgeon, Dr. Blackburn. PAST MEDICAL HISTORY: Reviewed. REVIEW OF SYSTEMS: A 14-point review is negative except as mentioned earlier. CURRENT MEDICATIONS: Reviewed include IV Zosyn. Doses and rest of medications noted. PHYSICAL EXAMINATION: VITAL SIGNS: Pulse 74, blood pressure 163/92, respirations 18. CHEST: Clear to auscultation. CARDIOVASCULAR: S1, S2. ABDOMEN: Soft, obese, nontender. No mass palpable. LEGS: No edema. NERVOUS SYSTEM: Nonfocal. LABORATORY DATA: Hemoglobin is 7.3. Rest of the labs are noted. ASSESSMENT: 1. Abdominal pain, nausea, vomiting, possible intraabdominal infection. 2. End-stage renal disease, on hemodialysis. 3. Anemia, multifactorial secondary to renal disease, symptomatic. 4. History of bowel perforation surgery. 5. History of cholecystostomy tube. 6. Elevated WBC. 7. Hypertension. 8. History of seizure disorder. 9. Multiple complex medical issues. RECOMMENDATIONS AND DISCUSSION: I recommend to continue current management. Continue symptomatic treatment. Continue with antibiotics. Follow the cultures and repeat labs. Closely follow with hemodialysis. I would also recommend close followup with Infectious Disease and Surgery. Otherwise I would also recommend 1 unit of transfusion along with hemodialysis. Repeat labs are ordered. Further recommendations to follow. Prognosis extremely guarded. Discussed with family. MMODL / IJN: [id number] /
[2023-06-06 08:42] LABS: BUN/Creat Ratio 3.41 Ratio (12.00-20.00); Blood Urea Nitrogen 18.4 mg/dL (9.0-27.0); Calcium 8.2 mg/dL (8.7-10.3); Carbon Dioxide 24.7 mmol/L (21.6-31.8); Chloride 98 mmol/L (96-109); Glucose 84 mg/dL (70-110); Potassium 4.4 mmol/L (3.5-5.5); Sodium 134 mmol/L (135-145)
[2023-06-06 08:54] LABS: Basophils # (A) 0.06 X 10*3/uL (0.00-0.10); Basophils % (A) 0.8 %; Eosinophils # (A) 0.25 X 10*3/uL (0.04-0.35); Eosinophils % (A) 3.4 %; HCT 25.5 % (37.2-46.3); HGB 8.2 g/dL (12.0-15.0); Lymphocytes # (A) 1.86 X 10*3/uL (0.90-5.00); Lymphocytes % (A) 25.1 %; MCH 29.3 pg (27.0-32.0); MCHC 32.2 g/dL (32.0-37.0); MCV 91.1 FL (80.0-97.0); Mean Platelet Volume 9.9 FL (9.5-12.2); Monocytes # (A) 0.45 X 10*3/uL (0.20-1.00); Monocytes % (A) 6.1 %; NRBC Per 100 WBC 0 X 10*3/uL (0.00-0.01); Neutrophils # (A) 4.74 X 10*3/uL (1.80-7.70); Neutrophils % (A) 64.1 %; Platelet Count 160 X 10*3/uL (140-440); RDW 16.3 % (11.5-14.5)
--- NOTE | 2023-06-06 13:12 | P.PN ---
Subjective Patient is seen for follow-up for end-stage renal disease. Trying to increase oral intake. Scheduled for hemodialysis in a.m. Objective - Vital Signs Vital signs: Vital Signs Temp 98.0 F 06/06/23 07:20 Pulse 69 06/06/23 07:20 Resp 18 06/06/23 07:20 BP 148/85 06/06/23 07:20 Pulse Ox 100 06/06/23 07:20 FiO2 Intake & Output 06/05/23 06/06/23 06/06/23 18:59 06:59 18:59 Intake Total 740 310 Output Total 1900 Balance -1160 310 Intake: Intake, IV Titration 340 Amount Piperacillin-Tazobactam 3 100 .375 gm In Sodium Chloride 0.9% 100 ml @ 25 mls/hr IVPB Q12HR [facility] Rx #:[id number] Sodium Chloride 0.9% 1, 240 000 ml @ 20 mls/hr IV . Q24H VAN[facility]SA Rx#:[id number] Blood Product 0 310 Rc As-1 Unit 0 310 [id number] Hemodialysis 400 Output: Hemodialysis 1900 Other: Voiding Method Toilet Toilet # Voids 0 - Exam Patient is awake, comfortable, no acute distress Seen on hemodialysis Examination of the heart S1 and S2 Examination of the lungs bilateral breath sounds are heard Abdomen is soft, mild tenderness right upper and lower abdomen Examination lower extremities shows no significant edema SLATE CUTTER OPERATOR exam grossly intact - Labs CBC & Chem 7: 06/06/23 05:57 06/06/23 05:57 Labs: Abnormal Lab Results - Last 24 Hours (Table) 06/05/23 06/05/23 06/05/23 Range/Units 14:29 14:29 14:29 RBC (4.10-5.20) X 10*6/uL Hgb (12.0-15.0) g/dL Hct (37.2-46.3) % RDW (11.5-14.5) % ESR 27 H (0-20) mm/Hr Sodium (135-145) mmol/L Creatinine (0.6-1.5) mg/dL Est GFR (CKD-EPI) (>=60) BUN/Creatinine Ratio (12.00-20.00) Ratio Calcium (8.7-10.3) mg/dL C-Reactive Protein 2.2 H (<1.0) mg/dL Crossmatch See Detail 06/06/23 06/06/23 Range/Units 05:57 05:57 RBC 2.80 L (4.10-5.20) X 10*6/uL Hgb 8.2 L (12.0-15.0) g/dL Hct 25.5 L (37.2-46.3) % RDW 16.3 H (11.5-14.5) % ESR (0-20) mm/Hr Sodium 134 L (135-145) mmol/L Creatinine 5.4 H (0.6-1.5) mg/dL Est GFR (CKD-EPI) 10 L (>=60) BUN/Creatinine Ratio 3.41 L (12.00-20.00) Ratio Calcium 8.2 L (8.7-10.3) mg/dL C-Reactive Protein (<1.0) mg/dL Crossmatch Microbiology - Last 24 Hours (Table) 06/04/23 14:13 Blood Culture - Preliminary Blood Assessment and Plan Assessment: 1. End-stage renal disease maintained on hemodialysis on Saturday schedule. Access Left IJ Permcath, thrombosed left arm AVG, status post thrombectomy on 05/20/2023. 2. Hypertension with chronic kidney disease. Stable. 3. Chronic kidney disease mineral bone disease- on Velphoro 4. Anemia of chronic kidney disease. On Aranesp. 5. History of perforated diverticulitis with pelvic abscess s/p colostomy. s/p Ex-lap with lysis of adhesions on 05/17/2023 during her previous admission. 6. Abdominal pain, with diarrhea, maintained on antibiotics. Being followed by ID and general surgery Plan: Hemodialysis on Saturday with history of Saturday schedule Maintain Aranesp Continue with phosphate binders
--- NOTE | 2023-06-06 14:41 | P.PN ---
Subjective Progress Note Date: 06/06/23 CHIEF COMPLAINT: Abdominal pain with vomiting HISTORY OF PRESENT ILLNESS: Patient presented back to the hospital with complaints of abdominal pain and vomiting after eating barbecue chicken sliders. Patient has history of open cholecystectomy. Diarrhea has improved. C. difficile was negative. Patient does report right-sided abdominal discomfort. But the pain is not as severe as what brought her into the hospital. PHYSICAL EXAM: VITAL SIGNS: Reviewed GENERAL: Well-developed in no acute distress. HEENT: No sclera icterus. Extraocular movements grossly intact. Moist buccal mucosa. Head is atraumatic, normocephalic. Hears conversational speech. No nasal drainage. NECK: Supple without lymphadenopathy. CHEST: Non-labored respirations and equal bilateral excursions. CARDIOVASCULAR: Palpable 2+ radial pulses. ABDOMEN: Soft. Nondistended. Mild right-sided abdominal tenderness. Ostomy functioning with soft stool MUSCULOSKELETAL: No clubbing or cyanosis. NEUROLOGIC: No focal or lateralizing signs. Cranial nerves II through XII grossly intact. PSYCH: Appropriate affect. Alert and oriented to person, place and time. SKIN: Well perfused. Good skin turgor. ASSESSMENT: 1. Abdominal pain with nausea vomiting and diarrhea after eating fatty meal. 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 History of cholecystectomy 3. Small parastomal hernia PLAN: -Patient is currently tolerating diet -Patient can be discharged from surgical standpoint when medically cleared -Continue to monitor Physician Market Research Specialist note has been reviewed by physician. Signing provider agrees with the documented findings, assessment, and plan of care. Objective - Vital Signs Vital signs: Vital Signs Temp 98.0 F 06/06/23 07:20 Pulse 69 06/06/23 07:20 Resp 18 06/06/23 07:20 BP 148/85 06/06/23 07:20 Pulse Ox 100 06/06/23 07:20 FiO2 Intake & Output 06/05/23 06/06/23 06/06/23 18:59 06:59 18:59 Intake Total 740 310 Output Total 1900 Balance -1160 310 Weight 83.007 kg Intake: Intake, IV Titration 340 Amount Piperacillin-Tazobactam 3 100 .375 gm In Sodium Chloride 0.9% 100 ml @ 25 mls/hr IVPB Q12HR [facility] Rx #:[id number] Sodium Chloride 0.9% 1, 240 000 ml @ 20 mls/hr IV . Q24H [facility] Rx#:[id number] Blood Product 0 310 Rc As-1 Unit 0 310 [id number] Hemodialysis 400 Output: Hemodialysis 1900 Other: Voiding Method Toilet Toilet # Voids 0 - Labs CBC & Chem 7: 06/06/23 05:57 06/06/23 05:57 Labs: Abnormal Lab Results - Last 24 Hours (Table) 06/05/23 06/05/23 06/05/23 Range/Units 14:29 14:29 14:29 RBC (4.10-5.20) X 10*6/uL Hgb (12.0-15.0) g/dL Hct (37.2-46.3) % RDW (11.5-14.5) % ESR 27 H (0-20) mm/Hr Sodium (135-145) mmol/L Creatinine (0.6-1.5) mg/dL Est GFR (CKD-EPI) (>=60) BUN/Creatinine Ratio (12.00-20.00) Ratio Calcium (8.7-10.3) mg/dL C-Reactive Protein 2.2 H (<1.0) mg/dL Crossmatch See Detail 06/06/23 06/06/23 Range/Units 05:57 05:57 RBC 2.80 L (4.10-5.20) X 10*6/uL Hgb 8.2 L (12.0-15.0) g/dL Hct 25.5 L (37.2-46.3) % RDW 16.3 H (11.5-14.5) % ESR (0-20) mm/Hr Sodium 134 L (135-145) mmol/L Creatinine 5.4 H (0.6-1.5) mg/dL Est GFR (CKD-EPI) 10 L (>=60) BUN/Creatinine Ratio 3.41 L (12.00-20.00) Ratio Calcium 8.2 L (8.7-10.3) mg/dL C-Reactive Protein (<1.0) mg/dL Crossmatch Microbiology - Last 24 Hours (Table) 06/04/23 14:13 Blood Culture - Preliminary Blood
--- NOTE | 2023-06-07 05:34 | P.PN ---
Subjective Progress Note Date: 06/06/23 This is a pleasant 42-year-old female who was recently admitted with abdominal pain being followed by general surgery and infectious disease and nephrology as patient is end-stage renal disease maintained on hemodialysis. Patient has extensive abdominal surgery history and continues with colostomy at this time as patient was recently hospitalized for reversal although found to have multiple abscesses that were drained. Patient had continue abdominal pain on the right which reports is less intense since admission although continues to persist. Concerns for infectious source and maintained on antibiotics with infectious disease following recommending awaiting cultures to determine discharge ant ibiotics. Patient is afebrile with no reports of chest pain or shortness of breath. Patient is tolerating diet. Review of systems: Constitutional: No reports of fatigue, fever, or chills Cardiovascular: No reports of chest pain or palpitations Respiratory: No reports of shortness of breath or cough GI: No reports of nausea, no reports of vomiting, reports diarrhea has resolved, reports right-sided abdominal pain although less intense : No reports of dysuria or retention Neurovascular: No reports of generalized weakness All medications have been reviewed PHYSICAL EXAMINATION: GENERAL: The patient is alert and oriented x4, Well developed, well nourished. Obese. HEENT: Pupils are round and equally reacting to light. EOMI. no scleral icterus. No conjunctival pallor. Normocephalic, atraumatic. No pharyngeal erythema. No thyromegaly. CARDIOVASCULAR: S1 and S2 muffled PULMONARY: diminished breath sounds bilaterally with no wheezing or rhonchi noted. ABDOMEN: soft. Right quadrant tenderness on exam. obese. non-distended, normoactive bowel sounds. No palpable organomegaly. MUSCULOSKELETAL: No joint swelling or deformity. EXTREMITIES: No cyanosis, clubbing, or pedal edema. NEUROLOGICAL: Gross neurological examination did not reveal any focal deficits. SKIN: No rashes. Assessment: Abdominal pain nausea, vomiting possible intra-abdominal infection End-stage renal disease, maintained on hemodialysis Anemia, multifactorial secondary to renal disease, symptomatic status post 1 unit PRBC this admission History of bowel perforation with end colostomy History of cholecystectomy Leukocytosis, resolved Hypertension history History of seizure disorders Obesity with a BMI 31.4 GI prophylaxis DVT prophylaxis Full code Plan: Recommend to continue with current medications and management with general surgery and infectious disease following. Patient was undergoing fatty diet to evaluate for possible sphincter of Oddi syndrome as patient was reporting increased pain after meal. Patient having no further pain after eating and is tolerating diet Patient being continued on antibiotics with infectious disease following recommend awaiting cultures. Stool cultures pending and blood cultures remain negative thus far for 48 hours Patient will likely transition to oral antibiotics on discharge and awaiting cultures Encouraged increase activity as tolerated Follow-up on repeat labs Hemodialysis in the a.m. with nephrology following as patient is maintained on M /Saturday/Saturday schedule Will discuss with other consultations regarding discharge planning. Patient has been cleared by general surgery for discharge Possible discharge in the next 24 to 48 hours The impression and plan of care has been dictated by nurse carole Olivarest itionegarrett as directed. Dr. Yuki MD I have performed a history and examination and MDM of this patient, discussed the same with the dictator, and agree with the dictator's assessment and plan as written ,documented as a scribe. Based on total visit time, I have performed more than 50% of the visit. Any additional findings or plans will be noted. Objective - Vital Signs Vital signs: Vital Signs Temp 98.0 F 06/06/23 07:20 Pulse 69 06/06/23 07:20 Resp 18 06/06/23 07:20 BP 148/85 06/06/23 07:20 Pulse Ox 100 06/06/23 07:20 FiO2 Intake & Output 06/05/23 06/06/23 06/06/23 18:59 06:59 18:59 Intake Total 740 310 Output Total 1900 Balance -1160 310 Intake: Intake, IV Titration 340 Amount Piperacillin-Tazobactam 3 100 .375 gm In Sodium Chloride 0.9% 100 ml @ 25 mls/hr IVPB Q12HR [facility] Rx #:[id number] Sodium Chloride 0.9% 1, 240 000 ml @ 20 mls/hr IV . Q24H [facility] Rx#:[id number] Blood Product 0 310 Rc As-1 Unit 0 310 [id number] Hemodialysis 400 Output: Hemodialysis 1900 Other: Voiding Method Toilet Toilet # Voids 0 - Labs CBC & Chem 7: 06/06/23 05:57 06/06/23 05:57 Labs: Abnormal Lab Results - Last 24 Hours (Table) 06/05/23 06/05/23 06/05/23 Range/Units 14:29 14:29 14:29 RBC (4.10-5.20) X 10*6/uL Hgb (12.0-15.0) g/dL Hct (37.2-46.3) % RDW (11.5-14.5) % ESR 27 H (0-20) mm/Hr Sodium (135-145) mmol/L Creatinine (0.6-1.5) mg/dL Est GFR (CKD-EPI) (>=60) BUN/Creatinine Ratio (12.00-20.00) Ratio Calcium (8.7-10.3) mg/dL C-Reactive Protein 2.2 H (<1.0) mg/dL Crossmatch See Detail 06/06/23 06/06/23 Range/Units 05:57 05:57 RBC 2.80 L (4.10-5.20) X 10*6/uL Hgb 8.2 L (12.0-15.0) g/dL Hct 25.5 L (37.2-46.3) % RDW 16.3 H (11.5-14.5) % ESR (0-20) mm/Hr Sodium 134 L (135-145) mmol/L Creatinine 5.4 H (0.6-1.5) mg/dL Est GFR (CKD-EPI) 10 L (>=60) BUN/Creatinine Ratio 3.41 L (12.00-20.00) Ratio Calcium 8.2 L (8.7-10.3) mg/dL C-Reactive Protein (<1.0) mg/dL Crossmatch Microbiology - Last 24 Hours (Table) 06/04/23 14:13 Blood Culture - Preliminary Blood
--- NOTE | 2023-06-07 12:46 | P.PN ---
Subjective Progress Note Date: 06/05/23 Principal diagnosis: Reason for follow-up is leukocytosis diarrhea Patient is a 42-year-old female with a past medical history significant for hypertension end-stage disease on dialysis patient did have a history of perforated diverticulitis status post diverting colostomy, also have a history of cholecystitis status postcholecystectomy presented to the hospital diarrhea abdominal pain and vomiting patient did have elevated white count, CT abdominal pelvis stranding seen throughout the presented extending from the right upper quadrant could be inflammatory or infectious. On today's visit that is 06/05/2023,the patient remains to be afebrile, patient is on room air not requiring supplemental oxygen and denies any shortness of breath no chest pain or cough.Patient denies having any further nausea vomiting abdominal pain has decreased intensity still having some diarrhea. Patient white count normalized to 10.0, creatinine is 8.1 stool studies not collected Objective - Vital Signs Vital signs: Vital Signs Temp 98.3 F 06/05/23 07:36 Pulse 74 06/05/23 07:36 Resp 18 06/05/23 07:36 BP 137/85 06/05/23 07:36 Pulse Ox 95 06/05/23 07:36 FiO2 Intake & Output 06/04/23 06/05/23 06/05/23 18:59 06:59 18:59 Intake Total 400 Output Total 2400 Balance -2000 Weight 83.007 kg Intake: Hemodialysis 400 Output: Hemodialysis 2400 Other: Voiding Method Toilet # Voids 2 1 - Exam GENERAL DESCRIPTION: Middle-age female lying in bed in no distress RESPIRATORY SYSTEM: Unlabored breathing , decreased breath sounds at bases HEART: S1 S2 regular rate and rhythm , ABDOMEN: Soft , mild right-sided tenderness EXTREMITIES: No edema feet - Labs CBC & Chem 7: 06/06/23 05:57 06/06/23 05:57 Labs: Abnormal Lab Results - Last 24 Hours (Table) 06/04/23 06/04/23 06/05/23 Range/Units 08:09 12:21 05:57 WBC 13.8 H (3.8-10.6) k/uL RBC 2.94 L 2.50 L (3.80-5.40) m/uL Hgb 8.6 L 7.3 L (11.4-16.0) gm/dL Hct 26.7 L 23.4 L (34.0-46.0) % MCHC 31.2 L (32.0-37.0) g/dL RDW 16.6 H 16.3 H (11.5-15.5) % Immature Gran # 0.05 H (0.00-0.04) X 10*3/uL Neutrophils # 12.2 H (1.3-7.7) k/uL Lymphocytes # 0.9 L (1.0-4.8) k/uL Carbon Dioxide 20.8 L (21.6-31.8) mmol/L Anion Gap 18.20 H (4.00-12.00) mmol/L BUN 54.9 H (9.0-27.0) mg/dL Creatinine 11.8 A* (0.6-1.5) mg/dL Est GFR (CKD-EPI) 4 L (>=60) BUN/Creatinine Ratio 4.65 L (12.00-20.00) Ratio Calcium 8.6 L (8.7-10.3) mg/dL Phosphorus 7.7 H (2.4-5.1) mg/dL Total Bilirubin <0.2 L (0.3-1.2) mg/dL AST (13-35) U/L Total Protein 5.8 L (6.2-8.2) g/dL Albumin 3.3 L (3.8-4.9) g/dL Albumin/Globulin Ratio 1.32 L (1.60-3.17) Ratio // Range/Units 05:57 WBC (3.8-10.6) k/uL RBC (3.80-5.40) m/uL Hgb (11.4-16.0) gm/dL Hct (34.0-46.0) % MCHC (32.0-37.0) g/dL RDW (11.5-15.5) % Immature Gran # (0.00-0.04) X 10*3/uL Neutrophils # (1.3-7.7) k/uL Lymphocytes # (1.0-4.8) k/uL Carbon Dioxide (21.6-31.8) mmol/L Anion Gap 14.00 H (4.00-12.00) mmol/L BUN 29.9 H (9.0-27.0) mg/dL Creatinine 8.1 A* (0.6-1.5) mg/dL Est GFR (CKD-EPI) 6 L (>=60) BUN/Creatinine Ratio 3.69 L (12.00-20.00) Ratio Calcium (8.7-10.3) mg/dL Phosphorus (2.4-5.1) mg/dL Total Bilirubin <0.2 L (0.3-1.2) mg/dL AST 11 L (13-35) U/L Total Protein 5.5 L (6.2-8.2) g/dL Albumin 3.3 L (3.8-4.9) g/dL Albumin/Globulin Ratio 1.50 L (1.60-3.17) Ratio Assessment and Plan (1) Colitis Current Visit: Yes Status: Acute Code(s): K52.9 - NONINFECTIVE GASTROENTERITIS AND COLITIS, UNSPECIFIED SNOMED Code(s): 41313878 (2) Diarrhea Current Visit: Yes Status: Acute Code(s): R19.7 - DIARRHEA, UNSPECIFIED SNOMED Code(s): 31669837 (3) Leukocytosis Current Visit: No Status: Acute Code(s): D72.829 - ELEVATED WHITE BLOOD CELL COUNT, UNSPECIFIED SNOMED Code(s): 246932976 Plan: 1patient presented to hospital with diarrhea followed by abdominal pain and then vomiting patient did have elevated white count and noticed to be slightly tender in the right upper quadrant area however the patient did have a history of cholecystectomy and liver enzymes are normal keeping in mind started with the diarrhea and possible infectious colitis bilateral excluded. 2 stool for C. difficile and stool culture pending collection. 3CT abdominal pelvis did show some inflammation in the mesentery especially to the right side 4patient continue with empiric Zosyn while waiting for the workup to be completed at the bedside questions were answered Dictation was produced using [employer] dictation software. please excuse any grammatical, word or spelling errors. Time with Patient: Less than 30
--- NOTE | 2023-06-07 12:48 | P.PN ---
Subjective Progress Note Date: 06/06/23 Principal diagnosis: Reason for follow-up is leukocytosis diarrhea Patient is a 42-year-old female with a past medical history significant for hypertension end-stage disease on dialysis patient did have a history of perforated diverticulitis status post diverting colostomy, also have a history of cholecystitis status postcholecystectomy presented to the hospital diarrhea abdominal pain and vomiting patient did have elevated white count, CT abdominal pelvis stranding seen throughout the presented extending from the right upper quadrant could be inflammatory or infectious. On today's visit that is 06/06/2023, the patient continues to be afebrile, the patient is on room air and breathing comfortably, the Pt denies having any chest pain or cough, the patient right-sided abdominal pain has decreased in intensity no further vomiting and did have resolution of her diarrhea and no bowel movement today. Patient white count is 7.40, creatinine is 5.4 stool for C. difficile negative stool cultures pending Objective - Vital Signs Vital signs: Vital Signs Temp 98.0 F 06/06/23 07:20 Pulse 69 06/06/23 07:20 Resp 18 06/06/23 07:20 BP 148/85 06/06/23 07:20 Pulse Ox 100 06/06/23 07:20 FiO2 Intake & Output 06/05/23 06/06/23 06/06/23 18:59 06:59 18:59 Intake Total 740 310 Output Total 1900 Balance -1160 310 Intake: Intake, IV Titration 340 Amount Piperacillin-Tazobactam 3 100 .375 gm In Sodium Chloride 0.9% 100 ml @ 25 mls/hr IVPB Q12HR [facility] Rx #:[id number] Sodium Chloride 0.9% 1, 240 000 ml @ 20 mls/hr IV . Q24H [facility] Rx#:[id number] Blood Product 0 310 Rc As-1 Unit 0 310 [id number] Hemodialysis 400 Output: Hemodialysis 1900 Other: Voiding Method Toilet Toilet # Voids 0 - Exam GENERAL DESCRIPTION: Middle-age female lying in bed in no distress RESPIRATORY SYSTEM: Unlabored breathing , decreased breath sounds at bases HEART: S1 S2 regular rate and rhythm , ABDOMEN: Soft , mild right-sided tenderness EXTREMITIES: No edema feet - Labs CBC & Chem 7: 06/06/23 05:57 06/06/23 05:57 Labs: Abnormal Lab Results - Last 24 Hours (Table) 06/05/23 06/05/23 06/05/23 Range/Units 14:29 14:29 14:29 RBC (4.10-5.20) X 10*6/uL Hgb (12.0-15.0) g/dL Hct (37.2-46.3) % RDW (11.5-14.5) % ESR 27 H (0-20) mm/Hr Sodium (135-145) mmol/L Creatinine (0.6-1.5) mg/dL Est GFR (CKD-EPI) (>=60) BUN/Creatinine Ratio (12.00-20.00) Ratio Calcium (8.7-10.3) mg/dL C-Reactive Protein 2.2 H (<1.0) mg/dL Crossmatch See Detail 06/06/23 06/06/23 Range/Units 05:57 05:57 RBC 2.80 L (4.10-5.20) X 10*6/uL Hgb 8.2 L (12.0-15.0) g/dL Hct 25.5 L (37.2-46.3) % RDW 16.3 H (11.5-14.5) % ESR (0-20) mm/Hr Sodium 134 L (135-145) mmol/L Creatinine 5.4 H (0.6-1.5) mg/dL Est GFR (CKD-EPI) 10 L (>=60) BUN/Creatinine Ratio 3.41 L (12.00-20.00) Ratio Calcium 8.2 L (8.7-10.3) mg/dL C-Reactive Protein (<1.0) mg/dL Crossmatch Microbiology - Last 24 Hours (Table) 06/04/23 14:13 Blood Culture - Preliminary Blood Assessment and Plan (1) Colitis Current Visit: Yes Status: Acute Code(s): K52.9 - NONINFECTIVE GASTROENTERITIS AND COLITIS, UNSPECIFIED SNOMED Code(s): 98118912 (2) Diarrhea Current Visit: Yes Status: Acute Code(s): R19.7 - DIARRHEA, UNSPECIFIED SNOMED Code(s): 39889849 (3) Leukocytosis Current Visit: No Status: Acute Code(s): D72.829 - ELEVATED WHITE BLOOD CELL COUNT, UNSPECIFIED SNOMED Code(s): 334774790 Plan: 1patient presented to hospital with diarrhea followed by abdominal pain and then vomiting patient did have elevated white count and noticed to be slightly tender in the right upper quadrant area however the patient did have a history of cholecystectomy and liver enzymes are normal keeping in mind started with the diarrhea and possible infectious colitis bilateral excluded. 2 stool for C. difficile negative and stool culture pending. 3CT abdominal pelvis did show some inflammation in the mesentery especially to the right side 4patient has shown clinical improvement and will continue with Zosyn in view of clinical response while waiting for the culture to finalize Dictation was produced using [employer] dictation software. please excuse any grammatical, word or spelling errors.
--- NOTE | 2023-06-07 12:49 | P.PN ---
Subjective Progress Note Date: 06/07/23 Principal diagnosis: Reason for follow-up is leukocytosis diarrhea Patient is a 42-year-old female with a past medical history significant for hypertension end-stage disease on dialysis patient did have a history of perforated diverticulitis status post diverting colostomy, also have a history of cholecystitis status postcholecystectomy presented to the hospital diarrhea abdominal pain and vomiting patient did have elevated white count, CT abdominal pelvis stranding seen throughout the presented extending from the right upper quadrant could be inflammatory or infectious. On today's visit that is 06/07/2023,the patient continues to be afebrile, patient is on room air and denies any shortness of breath no chest pain or cough.Patient denies having any nausea or vomiting, patient right-sided abdominal pain has decreased in intensity did have resolution of her diarrhea did have a small bowel movement No labs drawn today are white count normal at 7.4 as of yesterday stool cultures pending Objective - Vital Signs Vital signs: Vital Signs Temp 97.6 F 06/07/23 07:10 Pulse 64 06/07/23 07:10 Resp 18 06/07/23 07:10 BP 143/86 06/07/23 07:10 Pulse Ox 99 06/07/23 07:10 FiO2 Intake & Output 06/06/23 06/07/23 06/07/23 18:59 06:59 18:59 Weight 83.007 kg Other: Voiding Method Toilet # Voids 4 - Exam GENERAL DESCRIPTION: Middle-age female lying in bed in no distress RESPIRATORY SYSTEM: Unlabored breathing , decreased breath sounds at bases HEART: S1 S2 regular rate and rhythm , ABDOMEN: Soft , mild right-sided tenderness EXTREMITIES: No edema feet - Labs CBC & Chem 7: 06/06/23 05:57 06/06/23 05:57 Labs: Microbiology - Last 24 Hours (Table) 06/04/23 14:13 Blood Culture - Preliminary Blood Assessment and Plan (1) Colitis Current Visit: Yes Status: Acute Code(s): K52.9 - NONINFECTIVE GASTROENTERITIS AND COLITIS, UNSPECIFIED SNOMED Code(s): 10417861 (2) Diarrhea Current Visit: Yes Status: Acute Code(s): R19.7 - DIARRHEA, UNSPECIFIED SNOMED Code(s): 12600083 (3) Leukocytosis Current Visit: No Status: Acute Code(s): D72.829 - ELEVATED WHITE BLOOD CELL COUNT, UNSPECIFIED SNOMED Code(s): 353598170 Plan: 1patient presented to hospital with diarrhea followed by abdominal pain and then vomiting patient did have elevated white count and noticed to be slightly tender in the right upper quadrant area however the patient did have a history of cholecystectomy and liver enzymes are normal keeping in mind started with the diarrhea and possible infectious colitis bilateral excluded. 2 stool for C. difficile negative and stool culture pending, patient did have resolution of her leukocytosis 3CT abdominal pelvis did show some inflammation in the mesentery especially to the right side 4patient has shown clinical improvement on Zosyn, the patient culture still pending however the patient insisting on going home we will suggest a 2-week course of oral Ceftin and Flagyl and close outpatient follow-up discussed with VIDEO GAME DEVELOPER for admitting team Dictation was produced using [employer] dictation software. please excuse any grammatical, word or spelling errors. Time with Patient: Less than 30
--- NOTE | 2023-06-07 13:46 | P.PN ---
Subjective Progress Note Date: 06/07/23 CHIEF COMPLAINT: Abdominal pain with vomiting HISTORY OF PRESENT ILLNESS: Patient presented back to the hospital with complaints of abdominal pain and vomiting after eating barbecue chicken sliders. Patient has history of open cholecystectomy. Diarrhea has improved. C. difficile was negative. Patient does report right-sided abdominal discomfort. But the pain is not as severe as what brought her into the hospital. Afebrile. PHYSICAL EXAM: VITAL SIGNS: Reviewed GENERAL: Well-developed in no acute distress. HEENT: No sclera icterus. Extraocular movements grossly intact. Moist buccal mucosa. Head is atraumatic, normocephalic. Hears conversational speech. No nasal drainage. NECK: Supple without lymphadenopathy. CHEST: Non-labored respirations and equal bilateral excursions. CARDIOVASCULAR: Palpable 2+ radial pulses. ABDOMEN: Soft. Nondistended. Mild right-sided abdominal tenderness. Ostomy functioning with soft stool MUSCULOSKELETAL: No clubbing or cyanosis. NEUROLOGIC: No focal or lateralizing signs. Cranial nerves II through XII grossly intact. PSYCH: Appropriate affect. Alert and oriented to person, place and time. SKIN: Well perfused. Good skin turgor. ASSESSMENT: 1. Abdominal pain with nausea vomiting and diarrhea after eating fatty meal. 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 History of cholecystectomy 3. Small parastomal hernia PLAN: -Patient is currently tolerating diet -Patient can be discharged from surgical standpoint when medically cleared -Continue to monitor Physician Dictaphone Mechanic note has been reviewed by physician. Signing provider agrees with the documented findings, assessment, and plan of care. Objective - Vital Signs Vital signs: Vital Signs Temp 97.6 F 06/07/23 07:10 Pulse 64 06/07/23 07:10 Resp 18 06/07/23 07:10 BP 143/86 06/07/23 07:10 Pulse Ox 99 06/07/23 07:10 FiO2 Intake & Output 06/06/23 06/07/23 06/07/23 18:59 06:59 18:59 Weight 83.007 kg Other: Voiding Method Toilet # Voids 4 - Labs CBC & Chem 7: 06/06/23 05:57 06/06/23 05:57 Labs: Microbiology - Last 24 Hours (Table) 06/04/23 14:13 Blood Culture - Preliminary Blood
[2023-06-07 14:35] VITALS: BP 167/89; PULSE 68; RESP 16; TEMP 97.9
--- NOTE | 2023-06-07 15:46 | P.PN ---
Subjective Patient is seen for follow-up for end-stage renal disease. Trying to increase oral intake. Seen on hemodialysis. Tolerating treatment well. Objective - Vital Signs Vital signs: Vital Signs Temp 97.9 F 06/07/23 14:21 Pulse 68 06/07/23 14:21 Resp 16 06/07/23 14:21 BP 167/89 06/07/23 14:21 Pulse Ox 99 06/07/23 07:10 FiO2 Intake & Output 06/06/23 06/07/23 06/07/23 18:59 06:59 18:59 Intake Total 500 Output Total 2500 Balance -2000 Weight 83.007 kg Intake: Hemodialysis 500 Output: Hemodialysis 2500 Other: Voiding Method Toilet # Voids 4 - Exam Patient is awake, comfortable, no acute distress Seen on hemodialysis Examination of the heart S1 and S2 Examination of the lungs bilateral breath sounds are heard Abdomen is soft, mild tenderness right upper and lower abdomen Examination lower extremities shows no significant edema AUTOMATIC BUFFER exam grossly intact - Labs CBC & Chem 7: 06/06/23 05:57 06/06/23 05:57 Labs: Microbiology - Last 24 Hours (Table) 06/04/23 14:13 Blood Culture - Preliminary Blood Assessment and Plan Assessment: 1. End-stage renal disease maintained on hemodialysis on Saturday schedule. Access Left IJ Permcath, thrombosed left arm AVG, status post thrombectomy on 05/20/2023. 2. Hypertension with chronic kidney disease. Stable. 3. Chronic kidney disease mineral bone disease- on Velphoro 4. Anemia of chronic kidney disease. On Aranesp. 5. History of perforated diverticulitis with pelvic abscess s/p colostomy. s/p Ex-lap with lysis of adhesions on 05/17/2023 during her previous admission. 6. Abdominal pain, with diarrhea, maintained on antibiotics. Being followed by ID and general surgery Plan: Hemodialysis on Saturday with history of Saturday schedule Maintain Aranesp Continue with phosphate binders
--- NOTE | 2023-06-10 09:45 | CDI ---
Documentation Clarification Form Date: 06/10/2023 From: Christiane Guerrero Phone: Admit Date: 06/03/2023 04:48:00 PM Patient Name: Sincere Phelan Visit Number: [id number] Discharge Date: 06/07/2023 03:07:00 PM ATTENTION: The Clinical Documentation Specialists (CDI) and [facility] Coding Staff appreciate your assistance in clarifying documentation. Please respond to the clarification below the line at the bottom and electronically sign. The CDI & [facility] Coding staff will review the response and follow-up if needed. Please note: Queries are made part of the Legal Health Record. If you have any questions, please contact the author of this message via ITS. Dr. Ita Mirza Per surgical 06/06 Progress Note: "Abdominal pain with N/V/D after eating fatty meal. 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 Per your last PN 06/05 "Abdominal pain N/V possible intra-abdominal infection." As attending physician, please provide clarification. 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 History of cholecystectomy. Clinical Indicators: Elevated WBC on admit 15.8. Treatment: Zosyn Please clarify which diagnosis is most appropriate: [ x ] Intra-abdominal infection [ ] Sphincter of Oddi syndrome [ ] Other (please specify) [ ] Unable to determine MTDD
--- NOTE | 2023-06-11 05:45 | P.DS ---
Providers Date of admission: 06/03/23 16:48 Expected date of discharge: 06/07/23 Attending physician: Jamel Urbano Consults: 06/03/23 16:45 Consult Physician Routine Consulting Provider: Giovanni Avelar Consult Reason/Comments: CKD Do you want consulting provider notified?: Yes 06/03/23 17:02 Consult Physician Routine Consulting Provider: Joanna Blackburn Consult Reason/Comments: known Do you want consulting provider notified?: Yes 06/04/23 13:21 Consult Physician Routine Consulting Provider: Jarred Solomon Consult Reason/Comments: infection Do you want consulting provider notified?: Yes Primary care physician: Alia Keita Hospital Course: Final diagnosis Abdominal pain nausea, vomiting, secondary to intra-abdominal infection End-stage renal disease, maintained on hemodialysis Anemia, multifactorial secondary to renal disease, symptomatic status post 1 unit PRBC this admission History of bowel perforation with end colostomy History of cholecystectomy Leukocytosis, resolved Hypertension history History of seizure disorders Obesity with a BMI 31.4 GI prophylaxis DVT prophylaxis Full code Discharge disposition Patient is being discharged in a stable condition with guarded prognosis to home. Patient will follow-up with Dr. Keita in the outpatient setting upon discharge. Patient is to continue with antibiotics per ID recommendations and close outpatient follow-up with general surgery as scheduled. Total time taken is greater than 35 minutes. Hospital course This is a 42-year-old female who was recently admitted with increased abdominal pain and vomiting being closely monitored. General surgery following along with infectious disease and repeat CT abdomen with concerns of intra-abdominal infection as patient did present with elevated white count and has had extensive abdominal issues including surgeries and bowel perforation. Cultures are negative and stool cultures thus far are negative and will follow-up on finalized cultures and patient will continue on antibiotics with infectious disease following as prescribed on discharge. Recommend close outpatient follow-up with general surgery. Patient has been cleared by consultations for discharge home. Please refer to consultation notes for further HPI. Currently no reports of chest pain, shortness of breath, or palpitations. Patient is afebrile. No reports of nausea or vomiting and patient is tolerating diet. Patient will be discharged home today. Guarded prognosis and high risk for readmissions given patient's significant comorbidities and extensive intra-abdom inal issues. Physical exam: Gen: This is a 42-year-old female who is awake, alert and oriented x 3, well- developed, well-nourished, obese HEENT: Head is atraumatic, normocephalic. Pupils equal, round. Sclerae is anicteric. NECK: Supple. No JVD. No lymphadenopathy. No thyromegaly. LUNGS: Clear to auscultation. No wheezes or rhonchi. No intercostal retractions. HEART: Regular rate and rhythm. No murmur. ABDOMEN: Soft. Tenderness noted on the right side although less intense than admission. Bowel sounds are present. No masses. EXTREMITIES: No pedal edema. No calf tenderness. NEUROLOGICAL: Patient is awake, alert and oriented x3. Cranial nerves 2 through 12 are grossly intact. Please refer to medication reconciliation sheet for a list of medications. The impression and plan of care has been dictated by Loly Flores, Nurse Practitioner as directed. Dr. Yuki MD I have performed a history and examination and MDM of this patient, discussed the same with the dictator, and agree with the dictator's assessment and plan as written ,documented as a scribe. Based on total visit time, I have performed more than 50% of the visit. Patient Condition at Discharge: Fair Plan - Discharge Summary Discharge Rx Participant: No New Discharge Prescriptions: New Cefuroxime [Ceftin] 250 mg PO BID 14 Days #28 tab metroNIDAZOLE [Flagyl] 500 mg PO TID 14 Days #42 tab Continue Metoprolol Tartrate [Lopressor] 50 mg PO BID Ondansetron [Zofran] 4 mg PO Q8HR PRN #20 tab PRN Reason: Nausea And Vomiting Famotidine [Pepcid] 20 mg PO DAILY #30 tablet tiZANidine HCL [Zanaflex] 4 mg PO HS Sucralfate [Carafate] 1 gm PO AC-TID 30 Days #90 tab cloNIDine HCL [Catapres] 0.1 mg PO TID #90 tab amLODIPine [Norvasc] 10 mg PO DAILY #30 tab Folic Acid-Vit B Complex-Vit C [Nephrocaps] 1 cap PO DAILY Acetaminophen Tab [Tylenol] 1,000 mg PO Q6HR PRN #30 tablet PRN Reason: Pain lisinopriL [Zestril] 20 mg PO BID Sucroferric Oxyhydroxide [Velphoro] 1,000 mg PO TID-W/MEALS hydrALAZINE HCL [Apresoline] 100 mg PO TID Darbepoetin Shahram [Aranesp] 40 mcg SQ MO Simethicone 40 mg/0.6 ml Drops [Mylicon Drops] 40 mg PO QID PRN PRN Reason: gas HYDROcodone/APAP 5-325MG [[place] 5-325] 1 tab PO Q6H PRN #9 tab PRN Reason: Pain Discontinued Amoxic-Pot Clav 500-125 mg [Augmentin 500-125 mg] 1 tab PO Q24HR 14 Days #14 tab Discharge Medication List Metoprolol Tartrate [Lopressor] 50 mg PO BID 11/11/21 [History] Famotidine [Pepcid] 20 mg PO DAILY #30 tablet 11/23/22 [Rx] Ondansetron [Zofran] 4 mg PO Q8HR PRN #20 tab 11/23/22 [Rx] tiZANidine HCL [Zanaflex] 4 mg PO HS 11/30/22 [History] Sucralfate [Carafate] 1 gm PO AC-TID 30 Days #90 tab 12/07/22 [Rx] amLODIPine [Norvasc] 10 mg PO DAILY #30 tab 12/07/22 [Rx] cloNIDine HCL [Catapres] 0.1 mg PO TID #90 tab 12/07/22 [Rx] Folic Acid-Vit B Complex-Vit C [Nephrocaps] 1 cap PO DAILY 12/12/22 [History] Acetaminophen Tab [Tylenol] 1,000 mg PO Q6HR PRN #30 tablet 05/24/23 [Rx] Sucroferric Oxyhydroxide [Velphoro] 1,000 mg PO TID-W/MEALS 05/26/23 [History] hydrALAZINE HCL [Apresoline] 100 mg PO TID 05/26/23 [History] lisinopriL [Zestril] 20 mg PO BID 05/26/23 [History] Darbepoetin Shahram [Aranesp] 40 mcg SQ MO 06/03/23 [History] Simethicone 40 mg/0.6 ml Drops [Mylicon Drops] 40 mg PO QID PRN 06/03/23 [History] Cefuroxime [Ceftin] 250 mg PO BID 14 Days #28 tab 03/08/24 [Rx] HYDROcodone/APAP 5-325MG [[place] 5-325] 1 tab PO Q6H PRN #9 tab 06/07/23 [Rx] metroNIDAZOLE [Flagyl] 500 mg PO TID 14 Days #42 tab 06/07/23 [Rx] Follow up Appointment(s)/Referral(s): Joanna Blackburn MD [STAFF PHYSICIAN] - 1 Week (Office will call you with your appointment) Alia Keita MD [Primary Care Provider] - 1-2 days (Office closed on Fridays. Please call office Saturday for your appointment) Activity/Diet/Wound Care/Special Instructions: Activity limited until follow-up Follow-up with primary care provider on discharge Follow-up with general surgery outpatient Continue taking medications as prescribed Continue with hemodialysis Discharge Disposition: HOME SELF-CARE
== END 2023-06-07 15:07 | disposition home or self-care (01) | DRG 248 ==
LOC: EC 12:42 → 4SSUR 16:47 → OBSVTOIN 16:48 → 4SSUR 17:48
PROVIDERS: ADMIT Internal Medicine; ATTEND Internal Medicine
PROC: 5A1D70Z Performance of Urinary Filtration, Intermittent, Less than 6 Hours Per Day (ICD-10-PCS; principal; 2023-06-04)
PROC: 30233N1 Transfusion of Nonautologous Red Blood Cells into Peripheral Vein, Percutaneous Approach (ICD-10-PCS; 2023-06-05)
DX: K65.9 Peritonitis, unspecified (principal); Z90.49 Acquired absence of other specified parts of digestive tract; D63.1 Anemia in chronic kidney disease; E66.9 Obesity, unspecified; E86.0 Dehydration; G40.909 Epilepsy, unspecified, not intractable, without status epilepticus; I12.0 Hypertensive chronic kidney disease with stage 5 chronic kidney disease or end stage renal disease; H53.8 Other visual disturbances; M10.9 Gout, unspecified; K43.5 Parastomal hernia without obstruction or gangrene; F41.9 Anxiety disorder, unspecified; K52.9 Noninfective gastroenteritis and colitis, unspecified; E83.9 Disorder of mineral metabolism, unspecified; N17.9 Acute kidney failure, unspecified; N18.6 End stage renal disease; Z99.2 Dependence on renal dialysis; Z68.31 Body mass index [BMI] 31.0-31.9, adult; Z79.899 Other long term (current) drug therapy; Z82.49 Family history of ischemic heart disease and other diseases of the circulatory system; Z87.891 Personal history of nicotine dependence; Z28.310 Unvaccinated for COVID-19; Z28.21 Immunization not carried out because of patient refusal; Z87.11 Personal history of peptic ulcer disease
CPT/HCPCS: 36415; 71045; 74018; 74177; 80048; 80053; 83605; 83690; 83735; 83880; 84100; 84484; 85025; 85610; 85652; 85730; 86140; 86850; 86900; 86901; 86920; 87040; 87045; 87046; 87324; 90935

== ENCOUNTER 2023-09-04 08:53 | Inpatient (IN) | payer OTHER ==
--- NOTE | 2023-09-04 09:39 | ED ---
Abdominal Pain HPI - General Source: patient, RN notes reviewed Mode of arrival: EMS Limitations: no limitations - History of Present Illness MD Complaint: abdominal pain <Xi Hua - Last Filed: 09/04/23 09:36> - General Source: RN notes reviewed <Raisa Heart - Last Filed: 09/04/23 13:11> - General Chief Complaint: Abdominal Pain Stated Complaint: abd pain,NVD Time Seen by Provider: 09/04/23 09:35 - History of Present Illness Initial Comments: Quick Note: This is a 42 year old female who presents to the emergency department for abdominal pain. States that this is in the mid abdomen to epigastric region. This began last night, improved, and then returned again around 5:30 AM this morning. Describes it as a squeezing sensation.. She has minor associated nausea. (Xi Hua) 42-year-old female with history of end-stage renal disease on dialysis, hypertension, diverticulitis presenting for abdominal pain. She reports the pain began yesterday and resolved, and returned again around 5:30 AM this morning. She describes the pain as a squeezing sensation from the mid abdomen to epigastric region with associated nausea, vomiting, and diarrhea. Patient has a colostomy bag from previous ruptured diverticulitis surgery last year. She also reports history of cholecystectomy. Patient reports she does not make urine and it tends hemodialysis Mondays, Wednesdays, and Fridays. She reports she did not go today since she is not feeling well. (Raisa Heart) - Related Data Home Medications Medication Instructions Recorded Confirmed Metoprolol Tartrate [Lopressor] 50 mg PO BID 11/11/21 06/03/23 tiZANidine HCL [Zanaflex] 4 mg PO HS 11/30/22 06/03/23 Folic Acid-Vit B Complex-Vit C 1 cap PO DAILY 12/12/22 06/03/23 [Nephrocaps] Sucroferric Oxyhydroxide [Velphoro] 1,000 mg PO TID-W/MEALS 05/26/23 06/03/23 hydrALAZINE HCL [Apresoline] 100 mg PO TID 05/26/23 06/03/23 lisinopriL [Zestril] 20 mg PO BID 05/26/23 06/03/23 Darbepoetin Shahram [Aranesp] 40 mcg SQ MO 06/03/23 06/03/23 Simethicone 40 mg/0.6 ml Drops 40 mg PO QID PRN 06/03/23 06/03/23 [Mylicon Drops] Previous Rx's Medication Instructions Recorded Famotidine [Pepcid] 20 mg PO DAILY #30 tablet 11/23/22 Ondansetron [Zofran] 4 mg PO Q8HR PRN #20 tab 11/23/22 Sucralfate [Carafate] 1 gm PO AC-TID 30 Days #90 tab 12/07/22 amLODIPine [Norvasc] 10 mg PO DAILY #30 tab 12/07/22 cloNIDine HCL [Catapres] 0.1 mg PO TID #90 tab 12/07/22 Acetaminophen Tab [Tylenol] 1,000 mg PO Q6HR PRN #30 tablet 05/24/23 Cefuroxime [Ceftin] 250 mg PO BID 14 Days #28 tab 06/07/23 HYDROcodone/APAP 5-325MG [[place] 1 tab PO Q6H PRN #9 tab 06/07/23 5-325] metroNIDAZOLE [Flagyl] 500 mg PO TID 14 Days #42 tab 06/07/23 Allergies Allergy/AdvReac Type Severity Reaction Status Date / Time iron AdvReac Severe Nausea & Verified 09/04/23 08:57 Vomiting & Diarrhea ciprofloxacin [From Cipro] AdvReac UNCONTROLLABLE Verified 09/04/23 08:57 EMOTIONS PER PT Pertussis Vaccines AdvReac seizures Verified 09/04/23 08:57 Review of Systems ROS Other: All systems not noted in ROS Statement are negative. <Xi Hua - Last Filed: 09/04/23 09:36> ROS Other: All systems not noted in ROS Statement are negative. <Raisa Heart - Last Filed: 09/04/23 13:11> ROS Statement: Those systems with pertinent positive or pertinent negative responses have been documented in the HPI. 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 none since then, SWOLLEN OPTICAL NERVE & RETINA, STATES VISION BLURRED AT TIMES, PSEUDO TUMOR BRAIN, HX GOUT, ANEMIA, KIDNEY FAILURE-HAS DIALYSIS fistula LUE for HEMODIALYSIS [id number] (FOCAL SEGMENTAL GLOMERULOSCLEROSIS), COLITIS, DIVERTICULITIS, BLEEDING GASTRIC ULCER, colostomy History of Any Multi-Drug Resistant Organisms: None Reported Past Surgical History: Bowel Resection, Section, Cholecystectomy Additional Past Surgical History / Comment(s): peritoneal dialysis catheter and removal, Fistual LUE., sigmoid colectomy with colostomy, percutaneous cholecystostomy tube insertion and removal, lysis of adhesions Past Anesthesia/Blood Transfusion Reactions: No Reported Reaction Past Psychological History: Anxiety Smoking Status: Former smoker Past Alcohol Use History: None Reported, Occasional Past Drug Use History: Marijuana - Past Family History Father Family Medical History: Myocardial Infarction (DE) Additional Family Medical History / Comment(s): FATHER AT AGE 35 OF MASSIVE HEART ATTACK Mother Family Medical History: Cancer, Deep Vein Thrombosis (DVT) Additional Family Medical History / Comment(s): SKIN CANCER <Xi Hua - Last Filed: 09/04/23 09:36> General Exam Limitations: no limitations <Xi Hua - Last Filed: 09/04/23 09:36> General appearance: alert, in no apparent distress Eye exam: Present: normal appearance, PERRL, EOMI. Absent: scleral icterus, conjunctival injection, periorbital swelling ENT exam: Present: normal exam, mucous membranes moist Neck exam: Present: normal inspection. Absent: tenderness, meningismus, lymphadenopathy Respiratory exam: Present: normal lung sounds bilaterally. Absent: respiratory distress, wheezes, rales, rhonchi, stridor Cardiovascular Exam: Present: regular rate, normal rhythm, normal heart sounds. Absent: systolic murmur, diastolic murmur, rubs, gallop, clicks GI/Abdominal exam: Present: soft, tenderness (Tenderness to palpation over umbilical region and epigastric region), normal bowel sounds. Absent: distended, guarding, rebound, rigid Extremities exam: Present: normal inspection, full ROM, normal capillary refill. Absent: tenderness, pedal edema, joint swelling, calf tenderness Back exam: Present: normal inspection. Absent: CVA tenderness (R), CVA tenderne ss (L) Neurological exam: Present: alert, oriented X3, CN II-XII intact Psychiatric exam: Present: normal affect, normal mood Skin exam: Present: warm, dry, intact, normal color. Absent: rash <Raisa Heart - Last Filed: 09/04/23 13:11> - General Exam Comments Initial Comments: Visual Physical Exam Vital signs reviewed General: Well-appearing, nontoxic, no acute distress. Head: Normocephalic, atraumatic Eyes: PERRLA, EOMI ENT: Airway patent Chest: Nonlabored breathing Skin: No visual rash, normal skin tone Neuro: Alert and oriented 3 Musculoskeletal: No gross abnormalities (Xi Hua) Course Vital Signs 09/04/23 08:53 Temperature 98 F Pulse Rate 90 Respiratory 18 Rate Blood Pressure 174/80 O2 Sat by Pulse 98 Oximetry Medical Decision Making <Xi Hua - Last Filed: 09/04/23 09:36> - Lab Data Result diagrams: 09/04/23 09:57 09/04/23 09:57 - EKG Data -: EKG Interpreted by Me <SlyRaisa - Last Filed: 09/04/23 13:11> - Medical Decision Making I performed the QuickNote portion of this chart. Signed Xi Hua PA-C. (Xi Hua) Was pt. sent in by a medical professional or institution (STEVAN Parker, TRAY DRIER OPERATOR, urgent care, hospital, or long term...) When possible be specific @ -No Did you speak to anyone other than the patient for history (EMS, parent, family, police, friend...)? What history was obtained from this source @ -No Did you review nursing and triage notes (agree or disagree)? Why? @ -I reviewed and agree with nursing and triage notes Were old charts reviewed (outside hosp., previous admission, EMS record, old EKG, old radiological studies, urgent care reports/EKG's, long term records)? Report findings @ -No old charts were reviewed Differential Diagnosis (chest pain, altered mental status, abdominal pain women, abdominal pain men, vaginal bleeding, weakness, fever, dyspnea, syncope, headache, dizziness, GI bleed, back pain, seizure, CVA, palpatations, mental health, musculoskeletal)? @ -Differential Abdominal Pain Women: Appendicitis, Cholecystitis, diverticulosis, ischemic bowel, pancreatitis, hepatitis, UTI, gastroenteritis, AAA, incarcerated hernia, bowel obstruction, constipation, inflammatory bowel, hepatitis, peptic ulcer disease, splenic infarction, perforated viscus, vulvitis, ovarian torsion, PID, kidney stone, placenta abruption, this is not meant to be an all-inclusive list EKG interpreted by me (3pts min.). @ -As above X-rays interpreted by me (1pt min.). @ -None done CT interpreted by me (1pt min.). @ -CT reveals active Crohn's disease with acute inflammatory process involving terminal ileum with diffuse inflammatory mesenteric fat stranding U/S interpreted by me What testing was considered but not performed or refused? (CT, X-rays, U/S, labs)? Why? @ -None What meds were considered but not given or refused? Why? @ -None Did you discuss the management of the patient with other professionals (professionals i.e. , PA, TRAY DRIER OPERATOR, lab, RT, psych nurse, social insurance specialist, geriatric social worker, teacher, immigration officer, patient case manager)? Give summary @ -Case discussed with Dr. Doan from [facility] who accepts admission at this time for acute Crohn's with consultation to nephrology and GI services Was smoking cessation discussed for >3mins.? @ -No Was critical care preformed (if so, how long)? @ -No Were there social determinants of health that impacted care today? How? (Homelessness, low income, unemployed, alcoholism, drug addiction, transportation, low edu. Level, literacy, decrease access to med. care, [place] [facility], rehab)? @ -No Was there de-escalation of care discussed even if they declined (Discuss DNR or withdrawal of care, Hospice)? DNR status @ -No What co-morbidities impacted this encounter? (DM, HTN, Smoking, COPD, CAD, Cancer, CVA, ARF, Chemo, Hep., AIDS, mental health diagnosis, sleep apnea, morbid obesity)? @ -End-stage renal disease on dialysis Was patient admitted / discharged? Hospital course, mention meds given and route, prescriptions, significant lab abnormalities, going to OR and other pertinent info. @ -Patient was admitted. Patient was seen and evaluated for epigastric pain x 1 day with vomiting and diarrhea. Vitals are within normal limits. Physical examination remarkable for tenderness in epigastric region. Lab work remarkable for white count of 13.1 and creatinine of 9.76. potassium is normal. Patient missed dialysis today. CT revealed active Crohn's disease with acute inflammatory process involving terminal ileum with diffuse inflammatory mesenteric fat stranding. Patient does not currently have a GI doctor or history of Crohn's. Case discussed with Dr. Mendoza from [facility] who accepts admission at this time for acute Crohn's with consultation to nephrology and GI services. Case discussed with my attending Dr. Garcia Undiagnosed new problem with uncertain prognosis? @ -No Drug Therapy requiring intensive monitoring for toxicity (Heparin, Nitro, Insu [place], Cardizem)? @ -No Were any procedures done? @ -No Diagnosis/symptom? @ -Acute Crohn's disease, end-stage renal disease on dialysis Acute, or Chronic, or Acute on Chronic? @ -Acute Uncomplicated (without systemic symptoms) or Complicated (systemic symptoms)? @ -Complicated Side effects of treatment? @ -No Exacerbation, Progression, or Severe Exacerbation? @ -No Poses a threat to life or bodily function? How? (Chest pain, [place], [place], pneumonia, PE, COPD, DKA, ARF, appy, cholecystitis, CVA, Diverticulitis, Homicidal, Suicidal, threat to staff... and all critical care pts) @ -Yes (Raisa Heart) - Lab Data Lab Results 09/04/23 09/04/23 09/04/23 Range/Units 09:57 09:57 09:57 WBC 13.1 H (3.8-10.6) k/uL RBC 3.11 L (3.80-5.40) m/uL Hgb 9.0 L (11.4-16.0) gm/dL Hct 28.7 L (34.0-46.0) % MCV 92.1 (80.0-100.0) fL MCH 28.8 (25.0-35.0) pg MCHC 31.3 (31.0-37.0) g/dL RDW 17.8 H (11.5-15.5) % Plt Count 305 (150-450) k/uL MPV 8.1 Neutrophils % 89 % Lymphocytes % 7 % Monocytes % 3 % Eosinophils % 0 % Basophils % 0 % Neutrophils # 11.7 H (1.3-7.7) k/uL Lymphocytes # 0.9 L (1.0-4.8) k/uL Monocytes # 0.3 (0-1.0) k/uL Eosinophils # 0.0 (0-0.7) k/uL Basophils # 0.0 (0-0.2) k/uL Hypochromasia Slight Poikilocytosis Slight Anisocytosis Slight Sodium 136 L (137-145) mmol/L Potassium 4.6 (3.5-5.1) mmol/L Chloride 98 (98-107) mmol/L Carbon Dioxide 27 (22-30) mmol/L Anion Gap 11 mmol/L BUN 42 H (7-17) mg/dL Creatinine 9.76 H* (0.52-1.04) mg/dL Est GFR (CKD-EPI)AfAm 5 (>60 ml/min/1.73 sqM) Est GFR (CKD-EPI)NonAf 4 (>60 ml/min/1.73 sqM) Glucose 97 (74-99) mg/dL Plasma Lactic Acid Jame 0.8 (0.7-2.0) mmol/L Calcium 8.2 L (8.4-10.2) mg/dL Total Bilirubin 0.7 (0.2-1.3) mg/dL AST 21 (14-36) U/L ALT 19 (4-34) U/L Alkaline Phosphatase 66 (38-126) U/L Total Protein 6.2 L (6.3-8.2) g/dL Albumin 3.6 (3.5-5.0) g/dL Amylase 46 (30-110) U/L Lipase 120 (23-300) U/L - EKG Data EKG Comments: EKG reveals normal sinus rhythm with no ST changes. Ventricular rate 81 bpm, NE interval 160, QRS duration 91, QT/QTc 386/423 (Raisa Heart) Disposition <Xi Hua - Last Filed: 09/04/23 09:36> Time of Disposition: 13:11 <Raisa Heart - Last Filed: 09/04/23 13:11> Clinical Impression: Acute Crohn's disease, End stage renal disease on dialysis Disposition: ADMITTED IP TO THIS [facility] Condition: Stable Referrals: Alia Keita MD [Primary Care Provider] - 1-2 days
[2023-09-04] MEDS: HYDROmorphone 0.5 MG/0.5 ML SYRINGE IVP STA (10:30)
[2023-09-04] MEDS: ONDANSETRON 4 MG/2 ML VIAL IVP STA (10:31)
[2023-09-04 10:55] LABS: Anisocytosis Slight; Basophils % (A) 0 %; Eosinophils % (A) 0 %; HCT 28.7 % (34.0-46.0); Hypochromasia Slight; Lymphocytes # (A) 0.9 k/uL (1.0-4.8); Lymphocytes % (A) 7 %; MCH 28.8 pg (25.0-35.0); MCHC 31.3 g/dL (31.0-37.0); MCV 92.1 fL (80.0-100.0); Mean Platelet Volume 8.1; Monocytes # (A) 0.3 k/uL (0-1.0); Monocytes % (A) 3 %; Neutrophils # (A) 11.7 k/uL (1.3-7.7); Neutrophils % (A) 89 %; Platelet Count 305 k/uL (150-450); Poikilocytosis Slight; RBC 3.11 m/uL (3.80-5.40); RDW 17.8 % (11.5-15.5); WBC 13.1 k/uL (3.8-10.6)
[2023-09-04 10:58] LABS: ALT 19 U/L (4-34); AST 21 U/L (14-36); African American GFR (CKD) 5 (>60 ml/min/1.73 sqM); Albumin 3.6 g/dL (3.5-5.0); Alkaline Phosphatase 66 U/L (38-126); Amylase 46 U/L (30-110); Anion Gap 11 mmol/L; Blood Urea Nitrogen 42 mg/dL (7-17); Calcium 8.2 mg/dL (8.4-10.2); Carbon Dioxide 27 mmol/L (22-30); Chloride 98 mmol/L (98-107); Glucose 97 mg/dL (74-99); Lipase 120 U/L (23-300); Non-African American GFR(CKD) 4 (>60 ml/min/1.73 sqM); Potassium 4.6 mmol/L (3.5-5.1); Sodium 136 mmol/L (137-145); Total Bilirubin 0.7 mg/dL (0.2-1.3); Total Protein 6.2 g/dL (6.3-8.2)
--- NOTE | 2023-09-04 11:06 | CT ---
EXAMINATION TYPE: CT abdomen pelvis wo con CT DLP: 713.1 mGycm, Automated exposure control for dose reduction was used. DATE OF EXAM: 09/04/2023 10:02 AM COMPARISON: CT abdomen pelvis most recent from 05/25/2023 CLINICAL INDICATION:Female, 42 years old with history of Abdominal pain, acute, nonlocalized; epigast dottie pain N/V/D TECHNIQUE: Axial CT abdomen pelvis wo con;Sagittal and coronal reformats were created on a separate workstation. Contrast used: mL of , (none if empty) Oral contrast used: without Oral Contrast (none if empty) FINDINGS: LOWER CHEST: Unremarkable ABDOMEN LIVER: Unremarkable GALLBLADDER AND BILE DUCTS: Unremarkable. PANCREAS: Unremarkable. SPLEEN: Unremarkable. ADRENAL GLANDS: Unremarkable. KIDNEYS AND URETERS: No evidence of hydronephrosis or renal calculus. The ureters are unremarkable. PELVIS BLADDER: Unremarkable REPRODUCTIVE: Unremarkable. ABDOMEN & PELVIS STOMACH AND BOWEL: Inflammatory process involves most of the distal ileum. Oral large portion of the ileum is involved in the inflammatory process. Marked wall thickening in the last 35 cm of the dista l ileum/terminal consistent with Crohn's disease. No evidence of bowel obstruction. Generalized mese nteric inflammatory fat stranding. Additional ventral midline likely. PERITONEUM/RETROPERITONEUM: No evidence of pneumoperitoneum or free fluid. VASCULATURE: No evidence of aortic aneurysm. MUSCULOSKELETAL: No acute osseous abnormalities LYMPH NODES: No gross evidence for lymphadenopathy. SOFT TISSUE/ABDOMINAL WALL: Unremarkable left lower quadrant ileostomy. IMPRESSION: 1. Active Crohn's disease with acute inflammatory process involving the terminal ileum with diffuse inflammatory mesenteric fat stranding.
[2023-09-04] MEDS ORDERED: NALOXONE 0.4 MG/ML 1 ML VIAL IV PRN (13:03)
[2023-09-04] MEDS ORDERED: ONDANSETRON 4 MG/2 ML VIAL IVP PRN (18:30)
[2023-09-04] MEDS: HYDROmorphone 0.5 MG/0.5 ML SYRINGE IVP PRN (18:39)
--- NOTE | 2023-09-04 18:53 | P.HPIM ---
History of Present Illness This is a pleasant 42 years old female with past medical history of Hypertension, chrnoic renal disease requring hemodialysis, Seizure Disorder, PSEUDO TUMOR BRAIN, HX GOUT, ANEMIA, KIDNEY FAILURE-HAS DIALYSIS fistula LUE for HEMODIALYSIS [id number] FSGS (FOCAL SEGMENTAL GLOMERULOSCLEROSIS), COLITIS, DIVERTICULITIS, BLEEDING GASTRIC ULCER, colostomy Patient presents because of abdominal pain of 4 days in duration. More severe this morning, she rates the pain as 9/10 in severity currently down to 7/10 Periumbilical and more to the right side, felt like he twisted sensation, pain itself is nonradiating with no specific precipitating or relieving factors She has colostomy with more liquidy bowel movements. She vomited once earlier. Patient vitals stable, afebrile blood pressure 174/80 Has mild leukocytosis 13.4, baseline is 8-16, hemoglobin 9 with baseline 7-9, creatinine is 9.7 the patient is a Dialysis patient EKG showing sinus rhythm at [address]-T changes CT of the abdomen and pelvis: Terminal ileum Crohn's disease flareup with diffuse inflammation and mesenteric Review of Systems Review of systems CONSTITUTIONAL: No fever, no malaise, no fatigue. HEENT: No recent visual problems or hearing problems. Denied any sore throat. CARDIOVASCULAR: No orthopnea, PND, no palpitations, no syncope. PULMONARY: No shortness of breath, no cough, no hemoptysis. GASTROINTESTINAL: as above NEUROLOGICAL: No headaches, no weakness, no numbness. HEMATOLOGICAL: Denies any bleeding or petechiae. GENITOURINARY: Denies any burning micturition, frequency, or urgency. MUSCULOSKELETAL/RHEUMATOLOGICAL: Denies any joint pain, swelling, or any muscle pain. ENDOCRINE: Denies any polyuria or polydipsia. 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 none since then, SWOLLEN OPTICAL NERVE & RETINA, STATES VISION BLURRED AT TIMES, PSEUDO TUMOR BRAIN, HX GOUT, ANEMIA, KIDNEY FAILURE-HAS DIALYSIS fistula LUE for HEMODIALYSIS [id number] FSGS (FOCAL SEGMENTAL GLOMERULOSCLEROSIS), COLITIS, DIVERTICULITIS, BLEEDING GASTRIC ULCER, colostomy History of Any Multi-Drug Resistant Organisms: None Reported Past Surgical History: Bowel Resection, Section, Cholecystectomy Additional Past Surgical History / Comment(s): peritoneal dialysis catheter and removal, Fistual LUE., sigmoid colectomy with colostomy, percutaneous cholecystostomy tube insertion and removal, lysis of adhesions Past Anesthesia/Blood Transfusion Reactions: No Reported Reaction Past Psychological History: Anxiety Smoking Status: Former smoker Past Alcohol Use History: None Reported, Occasional Past Drug Use History: Marijuana - Past Family History Father Family Medical History: Myocardial Infarction ([place]) Additional Family Medical History / Comment(s): FATHER AT AGE 35 OF MASSIVE HEART ATTACK Mother Family Medical History: Cancer, Deep Vein Thrombosis (DVT) Additional Family Medical History / Comment(s): SKIN CANCER Medications and Allergies Home Medications Medication Instructions Recorded Confirmed Type Famotidine [Pepcid] 20 mg PO DAILY #30 tablet 11/23/22 09/04/23 Rx amLODIPine [Norvasc] 10 mg PO DAILY #30 tab 12/07/22 09/04/23 Rx cloNIDine HCL [Catapres] 0.1 mg PO TID #90 tab 12/07/22 09/04/23 Rx Acetaminophen Tab [Tylenol] 1,000 mg PO Q6HR PRN #30 tablet 05/24/23 09/04/23 Rx Sucroferric Oxyhydroxide [Velphoro] 1,000 mg PO TID-W/MEALS 05/26/23 09/04/23 History hydrALAZINE HCL [Apresoline] 100 mg PO TID 05/26/23 09/04/23 History lisinopriL [Zestril] 20 mg PO BID 05/26/23 09/04/23 History Darbepoetin Shahram [Aranesp] 40 mcg SQ MO 06/03/23 09/04/23 History Metoprolol Tartrate [Lopressor] 50 mg PO BID 09/04/23 09/04/23 History Virt-Caps 1 cap PO DAILY 09/04/23 09/04/23 History tiZANidine [Zanaflex] 4 mg PO HS 09/04/23 09/04/23 History Allergies Allergy/AdvReac Type Severity Reaction Status Date / Time iron AdvReac Severe Nausea & Verified 09/04/23 15:02 Vomiting & Diarrhea ciprofloxacin [From Cipro] AdvReac UNCONTROLLABLE Verified 09/04/23 15:02 EMOTIONS PER PT Pertussis Vaccines AdvReac seizures Verified 09/04/23 15:02 Physical Exam Vitals: Vital Signs Temp Pulse Resp BP Pulse Ox 09/04/23 13:25 82 18 162/98 95 09/04/23 08:53 98 F 90 18 174/80 98 Intake and Output 09/03/23 09/04/23 09/04/23 22:59 06:59 14:59 Other: Weight 82.554 kg GENERAL: The patient is alert and oriented x3, not in any acute distress. Well developed, well nourished. HEENT: Pupils are round and equally reacting to light. EOMI. No scleral icterus. No conjunctival pallor. Normocephalic, atraumatic. No pharyngeal erythema. No thyromegaly. CARDIOVASCULAR: S1 and S2 present. No murmurs, rubs, or gallops. PULMONARY: Chest is clear to auscultation, no wheezing , no crackles. - ABDOMEN: Soft, right upper quadrant and right abdominal tenderness and little bit in the epigastric area to. No rebound tenderness, no guarding, nondistended, normoactive bowel sounds. No palpable organomegaly. MUSCULOSKELETAL: No joint swelling or deformity. EXTREMITIES: No cyanosis, clubbing, or pedal edema. NEUROLOGICAL: Gross neurological examination did not reveal any focal deficits. SKIN: No rashes. no petechiae. Results CBC & Chem 7: 09/04/23 09:57 09/04/23 09:57 Labs: Abnormal Lab Results - Last 24 Hours (Table) 09/04/23 09/04/23 Range/Units 09:57 09:57 WBC 13.1 H (3.8-10.6) k/uL RBC 3.11 L (3.80-5.40) m/uL Hgb 9.0 L (11.4-16.0) gm/dL Hct 28.7 L (34.0-46.0) % RDW 17.8 H (11.5-15.5) % Neutrophils # 11.7 H (1.3-7.7) k/uL Lymphocytes # 0.9 L (1.0-4.8) k/uL Sodium 136 L (137-145) mmol/L BUN 42 H (7-17) mg/dL Creatinine 9.76 H* (0.52-1.04) mg/dL Calcium 8.2 L (8.4-10.2) mg/dL Total Protein 6.2 L (6.3-8.2) g/dL Assessment and Plan Assessment: Acute gastroenteritis with CT of the abdomen showing terminal ileitis, suspected for acute process flareup End-stage renal disease on hemodialysis Mild chronic leukocytosis is, fluctuating Chronic anemia Hypertension History of diverticulitis status post colostomy History of focal segmental glomerulosclerosis Obesity with BMI of 31.2 Plan: Bowel rest Continue with hemodialysis per loader magazine grinder Continue close monitoring Gastroenterology and surgery team consult Check pro- Calcitonin Check for C. difficile Labs and medication were reviewed.. Continue same treatment. Continue with symptomatic treatment. Resume home medication. Monitor labs and vitals. DVT and GI prophylaxis. Further recommendations as per clinical course of the patient DVT prophylaxis: Subcutaneous heparin GI Prophylaxis: Pepcid Prognosis is guarded
--- NOTE | 2023-09-04 19:19 | P.GSCN ---
History of Present Illness Consult date: 09/04/23 History of present illness: CHIEF COMPLAINT: Abdominal pain HISTORY OF PRESENT ILLNESS: The patient is a 42-year-old female well-known to me due to pre-existing history of peritoneal dialysis catheter with peritonitis and subsequent perforated diverticulitis and colostomy placement. Patient had attempted colostomy reversal however intra-abdominal abscess was still identified May 2023, 4 months ago. Patient reports pain is similar to the past with epigastric right upper quadrant abdominal pain. Prior 3 episodes were treated with Zosyn antibiotics and had resolved. Patient had seen colorectal surgeon for complicated colostomy reversal. Patient reports having acute abdominal pain yesterday and presents today with acute right upper quadrant crampy abdominal pain. No blood in ostomy. She has known history of parastomal hernia. She is on the kidney transplant list at [facility]. She had received her dialysis today schedule for Saturday. PAST MEDICAL HISTORY: See list and reviewed PAST SURGICAL HISTORY: See list and reviewed MEDICATIONS: See list and reviewed ALLERGIES: See list and reviewed SOCIAL HISTORY: See list and reviewed FAMILY HISTORY: See list and reviewed REVIEW OF ORGAN SYSTEMS: CONSTITUTIONAL: No fevers or chills. Has recent weight gain. EYES: Denies any trouble with vision. No glasses. HEENT: No difficulties with hearing. No nosebleeds. No difficulty swallowing. RESPIRATORY: Denies pneumonia. Denies any troubles with breathing or dyspnea on exertion. CARDIOVASCULAR: Hypertensive heart disease. Has left upper extremity shunt. GASTROINTESTINAL: Gastroesophageal reflux disease. Perforated diverticulitis with colostomy. Personal history of gastric ulcer with bleeding. GENITOURINARY: History of peritoneal dialysis and subsequent peritonitis from perforated diverticulitis. End-stage renal disease due to FSGS. Dialysis Saturday. NEUROLOGICAL: No seizure disorder. Has pseudotumor cerebri. MUSCULOSKELETAL: History of gout. SKIN: No current skin cancer. No rash. PSYCHIATRIC: Has anxiety disorder. ENDOCRINE: Denies current thyroid disorders. Denies any blood sugar glucose intolerance. HEME/LYMPHATIC: Has chronic iron deficiency anemia due to chronic disease. ALLERGY/IMMUNOLOGY: No immunoglobulin therapy. No immune deficiencies. On transplant list for kidney transplant. BREAST: Denies current breast lumps, pain or nipple discharge. PHYSICAL EXAM: VITALS: Reviewed CONSTITUTIONAL: Well developed and in no acute distress. EYES: Conjuctivae without sclera icterus. Extraocular movements grossly intact. Wears glasses. HEAD, EARS, NOSE, THROAT: Moist buccal mucosa. Head is atraumatic, normocephalic. Hears conversational speech. No nasal drainage. NECK: Supple. No JV distention. No thyroidomegaly. RESPIRATORY: Non-labored respirations and equal bilateral excursions. No gross wheezes. CARDIOVASCULAR: Palpable 2+ radial pulses. ABDOMEN: Ostomy with stool functioning, obese, no peritonitis, right upper quadrant abdominal pain. No peritonitis. LYMPH: No neck lymphadenopathy. MUSCULOSKELETAL: No clubbing cyanosis or edema SKIN: Warm and well perfused with good skin turgor. NEUROLOGIC: Cranial nerves II through XII grossly intact. No focal or lateralizing signs. PSYCH: Appropriate affect. Alert and oriented to person, place and time. D isplays appropriate insight. CLINCAL LABS: Reviewed. WBC over 13,000, leukocytosis. Hemoglobin 9.0, chronic iron deficiency anemia. IMAGING: Independently reviewed. CT of the abdomen pelvis independently reviewed. Imaging study is suboptimal without contrast. No free air. No bowel obstruction. Presence of parastomal hernia without obstruction. This is my independent interpretation. RADIOLOGY: Report reviewed. CT report states active Crohn's. RECORDS: previous old records reviewed including CT scan from May 2023 without Crohn's finding. ASSESSMENT: 1. Abdominal pain, acute on chronic right upper quadrant 2. Diverticulitis status post colostomy creation 3. End-stage renal disease dialysis dependent due to FSGS 4. Abnormal CT scan for Crohn's disease 5. Chronic iron deficiency anemia 6. Hypertensive heart disease PLAN: 1 . Patient has no pre-existing history of Crohn's disease. CT of the abdomen pelvis reviewed. Recommend repeat CT scan with oral contrast. 2. Patient is scheduled to undergo colostomy reversal at outside facility within 3 weeks. 3. Patient reports prior episodes treated conservatively with IV antibiotics under guidance of infectious disease provider. Consult Dr. Solomon. Patient had response to Zosyn in the past. 4. No acute surgical invention needed at this time. 5. Diet as tolerated ADVANCE DIRECTIVE: Status in chart Thank you for this kind consultation. 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 none since then, SWOLLEN OPTICAL NERVE & RETINA, STATES VISION BLURRED AT TIMES, PSEUDO TUMOR BRAIN, HX GOUT, ANEMIA, KIDNEY FAILURE-HAS DIALYSIS fistula LUE for HEMODIALYSIS -HX FSGS (FOCAL SEGMENTAL GLOMERULOSCLEROSIS), COLITIS, DIVERTICULITIS, BLEEDING GASTRIC ULCER, colostomy History of Any Multi-Drug Resistant Organisms: None Reported Past Surgical History: Bowel Resection, Section, Cholecystectomy Additional Past Surgical History / Comment(s): peritoneal dialysis catheter and removal, Fistual LUE., sigmoid colectomy with colostomy, percutaneous cholecystostomy tube insertion and removal, lysis of adhesions Past Anesthesia/Blood Transfusion Reactions: No Reported Reaction Past Psychological History: Anxiety Smoking Status: Former smoker Past Alcohol Use History: None Reported, Occasional Past Drug Use History: Marijuana - Past Family History Father Family Medical History: Myocardial Infarction ([place]) Additional Family Medical History / Comment(s): FATHER AT AGE 35 OF MASSIVE HEART ATTACK Mother Family Medical History: Cancer, Deep Vein Thrombosis (DVT) Additional Family Medical History / Comment(s): SKIN CANCER Medications and Allergies Home Medications Medication Instructions Recorded Confirmed Type Famotidine [Pepcid] 20 mg PO DAILY #30 tablet 11/23/22 09/04/23 Rx amLODIPine [Norvasc] 10 mg PO DAILY #30 tab 12/07/22 09/04/23 Rx cloNIDine HCL [Catapres] 0.1 mg PO TID #90 tab 12/07/22 09/04/23 Rx Acetaminophen Tab [Tylenol] 1,000 mg PO Q6HR PRN #30 tablet 05/24/23 09/04/23 Rx Sucroferric Oxyhydroxide [Velphoro] 1,000 mg PO TID-W/MEALS 05/26/23 09/04/23 History hydrALAZINE HCL [Apresoline] 100 mg PO TID 05/26/23 09/04/23 History lisinopriL [Zestril] 20 mg PO BID 05/26/23 09/04/23 History Darbepoetin Shahram [Aranesp] 40 mcg SQ MO 06/03/23 09/04/23 History Metoprolol Tartrate [Lopressor] 50 mg PO BID 09/04/23 09/04/23 History Virt-Caps 1 cap PO DAILY 09/04/23 09/04/23 History tiZANidine [Zanaflex] 4 mg PO HS 06/05/24 06/05/24 History Allergies Allergy/AdvReac Type Severity Reaction Status Date / Time iron AdvReac Severe Nausea & Verified 09/04/23 15:02 Vomiting & Diarrhea ciprofloxacin [From Cipro] AdvReac UNCONTROLLABLE Verified 09/04/23 15:02 EMOTIONS PER PT Pertussis Vaccines AdvReac seizures Verified 09/04/23 15:02 Surgical - Exam Vital Signs Temp Pulse Resp BP Pulse Ox 98 F 90 18 174/80 98 09/04/23 08:53 09/04/23 08:53 09/04/23 08:53 09/04/23 08:53 09/04/23 08:53 Results - Labs 09/04/23 09:57 09/04/23 09:57 Abnormal Lab Results - Last 24 Hours (Table) 09/04/23 09/04/23 Range/Units 09:57 09:57 WBC 13.1 H (3.8-10.6) k/uL RBC 3.11 L (3.80-5.40) m/uL Hgb 9.0 L (11.4-16.0) gm/dL Hct 28.7 L (34.0-46.0) % RDW 17.8 H (11.5-15.5) % Neutrophils # 11.7 H (1.3-7.7) k/uL Lymphocytes # 0.9 L (1.0-4.8) k/uL Sodium 136 L (137-145) mmol/L BUN 42 H (7-17) mg/dL Creatinine 9.76 H* (0.52-1.04) mg/dL Calcium 8.2 L (8.4-10.2) mg/dL Total Protein 6.2 L (6.3-8.2) g/dL Diabetes panel 09/04/23 Range/Units 09:57 Sodium 136 L (137-145) mmol/L Potassium 4.6 (3.5-5.1) mmol/L Chloride 98 (98-107) mmol/L Carbon Dioxide 27 (22-30) mmol/L BUN 42 H (7-17) mg/dL Creatinine 9.76 H* (0.52-1.04) mg/dL Glucose 97 (74-99) mg/dL Calcium 8.2 L (8.4-10.2) mg/dL AST 21 (14-36) U/L ALT 19 (4-34) U/L Alkaline Phosphatase 66 (38-126) U/L Total Protein 6.2 L (6.3-8.2) g/dL Albumin 3.6 (3.5-5.0) g/dL Calcium panel 09/04/23 Range/Units 09:57 Calcium 8.2 L (8.4-10.2) mg/dL Albumin 3.6 (3.5-5.0) g/dL Pituitary panel 09/04/23 Range/Units 09:57 Sodium 136 L (137-145) mmol/L Potassium 4.6 (3.5-5.1) mmol/L Chloride 98 (98-107) mmol/L Carbon Dioxide 27 (22-30) mmol/L BUN 42 H (7-17) mg/dL Creatinine 9.76 H* (0.52-1.04) mg/dL Glucose 97 (74-99) mg/dL Calcium 8.2 L (8.4-10.2) mg/dL Adrenal panel 09/04/23 Range/Units 09:57 Sodium 136 L (137-145) mmol/L Potassium 4.6 (3.5-5.1) mmol/L Chloride 98 (98-107) mmol/L Carbon Dioxide 27 (22-30) mmol/L BUN 42 H (7-17) mg/dL Creatinine 9.76 H* (0.52-1.04) mg/dL Glucose 97 (74-99) mg/dL Calcium 8.2 L (8.4-10.2) mg/dL Total Bilirubin 0.7 (0.2-1.3) mg/dL AST 21 (14-36) U/L ALT 19 (4-34) U/L Alkaline Phosphatase 66 (38-126) U/L Total Protein 6.2 L (6.3-8.2) g/dL Albumin 3.6 (3.5-5.0) g/dL
[2023-09-04] MEDS: lisinopriL 20 MG TAB PO SCH (20:43)
[2023-09-04] MEDS: METOPROLOL TARTRATE 50 MG TAB PO SCH (20:43)
[2023-09-04] MEDS: tiZANidine 4 MG TAB PO SCH (20:43)
[2023-09-04] MEDS: cloNIDine HCL 0.1 MG TAB PO SCH (21:25)
[2023-09-04] MEDS: hydrALAZINE HCL 50 MG TAB PO SCH (21:25)
[2023-09-05] MEDS: SEVELAMER 800 MG TAB PO SCH (06:55)
[2023-09-05] MEDS: VIRT PO SCH (08:27)
[2023-09-05] MEDS: amLODIPine 10 MG TAB PO SCH (08:31)
[2023-09-05] MEDS: FAMOTIDINE 20 MG TAB PO SCH (08:31)
[2023-09-05 08:35] LABS: Anisocytosis Slight; Basophils # (A) 0.1 k/uL (0-0.2); Basophils % (A) 1 %; Eosinophils # (A) 0.1 k/uL (0-0.7); Eosinophils % (A) 1 %; HCT 26.4 % (34.0-46.0); HGB 8.1 gm/dL (11.4-16.0); Hypochromasia Moderate; Lymphocytes # (A) 1.3 k/uL (1.0-4.8); Lymphocytes % (A) 14 %; MCH 29.3 pg (25.0-35.0); MCHC 30.8 g/dL (31.0-37.0); Mean Platelet Volume 7.8; Monocytes # (A) 0.5 k/uL (0-1.0); Monocytes % (A) 5 %; Neutrophils # (A) 7.5 k/uL (1.3-7.7); Neutrophils % (A) 79 %; Platelet Count 320 k/uL (150-450); RBC 2.78 m/uL (3.80-5.40); RDW 17.8 % (11.5-15.5); WBC 9.6 k/uL (3.8-10.6)
[2023-09-05 08:52] LABS: African American GFR (CKD) 8 (>60 ml/min/1.73 sqM); Anion Gap 7 mmol/L; Blood Urea Nitrogen 24 mg/dL (7-17); Carbon Dioxide 30 mmol/L (22-30); Chloride 99 mmol/L (98-107); Glucose 89 mg/dL (74-99); Magnesium 1.8 mg/dL (1.6-2.3); Non-African American GFR(CKD) 7 (>60 ml/min/1.73 sqM); Potassium 4.4 mmol/L (3.5-5.1); Sodium 136 mmol/L (137-145)
--- NOTE | 2023-09-05 09:15 | P.PN ---
Subjective This is a pleasant 42 years old female with past medical history of Hypertension, chrnoic renal disease requring hemodialysis, Seizure Disorder, PSE UDO TUMOR BRAIN, HX GOUT, ANEMIA, KIDNEY FAILURE-HAS DIALYSIS fistula LUE for HEMODIALYSIS [id number] FSGS (FOCAL SEGMENTAL GLOMERULOSCLEROSIS), COLITIS, DIVERTICULITIS, BLEEDING GASTRIC ULCER, colostomy Patient presents because of abdominal pain of 4 days in duration. More severe this morning, she rates the pain as 9/10 in severity currently down to 7/10 Periumbilical and more to the right side, felt like he twisted sensation, pain itself is nonradiating with no specific precipitating or relieving factors She has colostomy with more liquidy bowel movements. She vomited once earlier. Patient vitals stable, afebrile blood pressure 174/80 Has mild leukocytosis 13.4, baseline is 8-16, hemoglobin 9 with baseline 7-9, creatinine is 9.7 the patient is a Dialysis patient EKG showing sinus rhythm at [address]-T changes CT of the abdomen and pelvis: Terminal ileum Crohn's disease flareup with diffuse inflammation and mesenteric 09/05/2023 Patient feels better and has good appetite and ate breakfast She still have some abdominal pain. Her pain mainly in the right middle and upper abdomen with mild tenderness but no guarding And her diarrhea has slowed down a little bit She is got dialysis yesterday. C. difficile test is pending Repeat CT of the abdomen and pelvis with contrast is requested and pending Objective - Vital Signs Vital signs: Vital Signs Temp 97.5 F L 09/05/23 07:15 Pulse 69 09/05/23 07:15 Resp 18 09/05/23 07:15 BP 162/94 09/05/23 07:15 Pulse Ox 99 09/05/23 07:15 FiO2 Intake & Output 09/04/23 09/05/23 09/05/23 18:59 06:59 18:59 Intake Total 700 Output Total 3000 Balance -2300 Weight 82.554 kg Intake: Hemodialysis 700 Output: Hemodialysis 3000 Other: Voiding Method Toilet Toilet # Voids 0 3 - Labs CBC & Chem 7: 09/05/23 05:19 09/05/23 05:19 Labs: Abnormal Lab Results - Last 24 Hours (Table) 09/04/23 09/04/23 09/05/23 Range/Units 09:57 09:57 05:19 WBC 13.1 H (3.8-10.6) k/uL RBC 3.11 L 2.78 L (3.80-5.40) m/uL Hgb 9.0 L 8.1 L (11.4-16.0) gm/dL Hct 28.7 L 26.4 L (34.0-46.0) % MCHC 30.8 L (31.0-37.0) g/dL RDW 17.8 H 17.8 H (11.5-15.5) % Neutrophils # 11.7 H (1.3-7.7) k/uL Lymphocytes # 0.9 L (1.0-4.8) k/uL Sodium 136 L (137-145) mmol/L BUN 42 H (7-17) mg/dL Creatinine 9.76 H* (0.52-1.04) mg/dL Calcium 8.2 L (8.4-10.2) mg/dL Total Protein 6.2 L (6.3-8.2) g/dL 09/05/23 Range/Units 05:19 WBC (3.8-10.6) k/uL RBC (3.80-5.40) m/uL Hgb (11.4-16.0) gm/dL Hct (34.0-46.0) % MCHC (31.0-37.0) g/dL RDW (11.5-15.5) % Neutrophils # (1.3-7.7) k/uL Lymphocytes # (1.0-4.8) k/uL Sodium 136 L (137-145) mmol/L BUN 24 H (7-17) mg/dL Creatinine 6.49 H (0.52-1.04) mg/dL Calcium 8.0 L (8.4-10.2) mg/dL Total Protein (6.3-8.2) g/dL Assessment and Plan Assessment: Acute gastroenteritis with CT of the abdomen showing terminal ileitis, suspected for acute process flareup of chronic disease, however patient has no prior history of Crohn's disease End-stage renal disease on hemodialysis Mild chronic leukocytosis, fluctuating Chronic anemia Hypertension History of diverticulitis status post colostomy History of focal segmental glomerulosclerosis Obesity with BMI of 31.2 Plan: Advance diet as tolerated, currently on renal diet Continue with hemodialysis per senior mechanical project engineer Continue close monitoring Gastroenterology and surgery team consult Repeat CT of the abdomen and pelvis with contrast is pending Check pro- Calcitonin Check for C. difficile Labs and medication were reviewed.. Continue same treatment. Continue with symptomatic treatment. Resume home medication. Monitor labs and vitals. DVT and GI prophylaxis. Further recommendations as per clinical course of the patient DVT prophylaxis: Subcutaneous heparin GI Prophylaxis: Pepcid Prognosis is guarded
[2023-09-05 09:59] LABS: C Reactive Protein 3.9 mg/dL (<1.0)
[2023-09-05] MEDS: IOPAMIDOL CONTRAST (ORAL USE) VIAL PO PRN (10:25)
[2023-09-05] MEDS ORDERED: hydrALAZINE HCL 20 MG/ML 1 ML VIAL IVP PRN (11:25)
--- NOTE | 2023-09-05 11:25 | P.NPCON ---
History of Present Illness - Reason for Consult end stage renal disease - History of Present Illness Reason for consultation: End-stage renal disease History of present illness: Patient is a 42-year-old female seen in renal consultation for end-stage renal disease. She is maintained on hemodialysis on Saturday schedule via AV fistula. Patient came to the hospital due to abdominal pain. Patient states the pain came and then resolved spontaneously. However when she woke up yesterday morning she was having sharp pain and was also having vomiting. She also admits to liquid output from the colostomy. Patient states she is scheduled for colostomy reversal later this month. Denies fever or chills. No chest pain or shortness of breath. Hemodynamically stable. Completed hemodialy sis yesterday with nearly 2.5 L ultrafiltration. Patient makes minimal urine. Denies history of diabetes or coronary artery disease. Vital signs are stable. General: No acute distress. HEENT: Head exam is unremarkable. LUNGS: No audible rhonchi or wheezes. HEART: Rate and Rhythm are regular. ABDOMEN: Colostomy noted. Nontender. EXTREMITITES: No edema. 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 none since then, SWOLLEN OPTICAL NERVE & RETINA, STATES VISION BLURRED AT TIMES, PSEUDO TUMOR BRAIN, HX GOUT, ANEMIA, KIDNEY FAILURE-HAS DIALYSIS fistula LUE for HEMODIALYSIS [id number] (FOCAL SEGMENTAL GLOMERULOSCLEROSIS), COLITIS, DIVERTICULITIS, BLEEDING GASTRIC ULCER, colostomy History of Any Multi-Drug Resistant Organisms: None Reported Past Surgical History: Bowel Resection, Section, Cholecystectomy Additional Past Surgical History / Comment(s): peritoneal dialysis catheter and removal, Fistual LUE., sigmoid colectomy with colostomy, percutaneous cholecystostomy tube insertion and removal, lysis of adhesions Past Anesthesia/Blood Transfusion Reactions: No Reported Reaction Past Psychological History: Anxiety Smoking Status: Former smoker Past Alcohol Use History: None Reported, Occasional Past Drug Use History: Marijuana - Past Family History Father Family Medical History: Myocardial Infarction ([place]) Additional Family Medical History / Comment(s): FATHER AT AGE 35 OF MASSIVE HEART ATTACK Mother Family Medical History: Cancer, Deep Vein Thrombosis (DVT) Additional Family Medical History / Comment(s): SKIN CANCER Medications and Allergies Home Medications Medication Instructions Recorded Confirmed Type Famotidine [Pepcid] 20 mg PO DAILY #30 tablet 11/23/22 09/04/23 Rx amLODIPine [Norvasc] 10 mg PO DAILY #30 tab 12/07/22 09/04/23 Rx cloNIDine HCL [Catapres] 0.1 mg PO TID #90 tab 12/07/22 09/04/23 Rx Acetaminophen Tab [Tylenol] 1,000 mg PO Q6HR PRN #30 tablet 05/24/23 09/04/23 Rx Sucroferric Oxyhydroxide [Velphoro] 1,000 mg PO TID-W/MEALS 05/26/23 09/04/23 History hydrALAZINE HCL [Apresoline] 100 mg PO TID 05/26/23 09/04/23 History lisinopriL [Zestril] 20 mg PO BID 05/26/23 09/04/23 History Darbepoetin Shahram [Aranesp] 40 mcg SQ MO 06/03/23 09/04/23 History Metoprolol Tartrate [Lopressor] 50 mg PO BID 09/04/23 09/04/23 History Virt-Caps 1 cap PO DAILY 09/04/23 09/04/23 History tiZANidine [Zanaflex] 4 mg PO HS 09/04/23 09/04/23 History Allergies Allergy/AdvReac Type Severity Reaction Status Date / Time iron AdvReac Severe Nausea & Verified 09/04/23 15:02 Vomiting & Diarrhea ciprofloxacin [From Cipro] AdvReac UNCONTROLLABLE Verified 09/04/23 15:02 EMOTIONS PER PT Pertussis Vaccines AdvReac seizures Verified 09/04/23 15:02 Physical Exam Vitals: Vital Signs Temp Pulse Pulse Pulse Pulse Resp BP 09/05/23 07:50 69 18 09/05/23 07:15 97.5 F L 69 18 09/05/23 02:11 97.7 F 79 15 09/04/23 20:25 98.0 F 83 18 09/04/23 18:35 70 18 160/74 09/04/23 18:27 98.3 F 84 16 09/04/23 18:19 98 F 76 18 09/04/23 13:25 82 18 162/98 BP Pulse Ox 09/05/23 07:50 09/05/23 07:15 162/94 99 09/05/23 02:11 151/78 94 L 09/04/23 20:25 168/85 93 L 09/04/23 18:35 98 09/04/23 18:27 175/91 97 09/04/23 18:19 173/93 09/04/23 13:25 95 Intake and Output 09/04/23 09/05/23 09/05/23 22:59 06:59 14:59 Intake Total 700 Output Total 3000 Balance -2300 Intake: Hemodialysis 700 Output: Hemodialysis 3000 Other: Voiding Method Toilet Toilet # Voids 0 3 Weight 82.554 kg Results - Lab Results Most recent lab results Calcium 8.0 mg/dL (8.4-10.2) L 09/05/23 05:19 Magnesium 1.8 mg/dL (1.6-2.3) 09/05/23 05:19 09/05/23 05:19 09/05/23 05:19 Assessment and Plan Plan: Assessment: 1. End-stage renal disease maintained on hemodialysis on Saturday schedule. 2. Hypertension with chronic kidney disease. 3. History of diverticulitis status post colostomy creation. Scheduled for reversal later this month. 4. Abdominal pain. Surgery following. 5. History of Crohn's disease. 6. Anemia of chronic kidney disease. 7. Chronic kidney disease mineral bone disease maintained on Renvela. Plan: Hemodialysis tomorrow. Check iron studies. Home antihypertensives resumed. Thank you for the consultation. I will continue to follow the patient with you during her hospital stay.
--- NOTE | 2023-09-05 13:00 | CT ---
EXAMINATION TYPE: CT abdomen pelvis wo con CT DLP: 698.4 mGycm, Automated exposure control for dose reduction was used. DATE OF EXAM: 09/05/2023 11:53 AM COMPARISON: CT abdomen pelvis 09/04/2023 CLINICAL INDICATION:Female, 42 years old with history of abdominal pain; . Epigastric pain, nausea, v omiting and diarrhea. History of colon resection May 2023. Active Crohn's disease. Midline abdom inal pain. TECHNIQUE: Axial CT abdomen pelvis wo con;Sagittal and coronal reformats were created on a separate workstation. Contrast used: mL of , (none if empty) Oral contrast used: with Oral Contrast (none if empty) FINDINGS: LOWER CHEST: Unremarkable ABDOMEN LIVER: Unremarkable GALLBLADDER AND BILE DUCTS: Unremarkable. PANCREAS: Unremarkable. SPLEEN: Unremarkable. ADRENAL GLANDS: Unremarkable. KIDNEYS AND URETERS: No evidence of hydronephrosis or renal calculus. The ureters are unremarkable. PELVIS BLADDER: Unremarkable REPRODUCTIVE: Unremarkable. ABDOMEN & PELVIS STOMACH AND BOWEL: No evidence of bowel obstruction. Inflammatory process involves most of the distal ileum. Oral large portion of the ileum is involved i n the inflammatory process. Marked wall thickening in the last 35 cm of the distal ileum/terminal con sistent with Crohn's disease. No evidence of bowel obstruction. Generalized mesenteric inflammatory f at stranding. Additional ventral midline adhesion likely. There is thickening in the midline soft tis sues. Soft tissue density extends from the skin to the abdominal wall and into are likely adherent sm all bowel loops. Fistula cannot be excluded based on CT imaging findings alone. Left lower quadrant ileostomy site is unremarkable. PERITONEUM/RETROPERITONEUM: No evidence of pneumoperitoneum or free fluid. VASCULATURE: No evidence of aortic aneurysm. MUSCULOSKELETAL: No acute osseous abnormalities LYMPH NODES: No gross evidence for lymphadenopathy. SOFT TISSUE/ABDOMINAL WALL: Unremarkable IMPRESSION: 1. Midline, ventral Adhesion and/or fistula cannot be excluded. Inflammatory process involves most of the distal ileum. Oral large portion of the ileum is involved i n the inflammatory process. Marked wall thickening in the last 35 cm of the distal ileum/terminal con sistent with Crohn's disease. No evidence of bowel obstruction. Generalized mesenteric inflammatory f at stranding. Additional ventral midline adhesion likely. There is thickening in the midline soft tis sues. Soft tissue density extends from the skin to the abdominal wall and into are likely adherent sm all bowel loops. Fistula cannot be excluded based on CT imaging findings alone.
[2023-09-05] MEDS: HYDROmorphone 0.5 MG/0.5 ML SYRINGE IVP PRN (14:12)
--- NOTE | 2023-09-05 15:10 | P.PN ---
Subjective Progress Note Date: 09/05/23 CHIEF COMPLAINT: Abdominal pain HISTORY OF PRESENT ILLNESS: Patient presents to the hospital with complaints of right upper quadrant abdominal pain that is crampy in nature. Ostomy is functioning. She has pre-existing history of peritoneal dialysis catheter with peritonitis and subsequent perforated diverticula ostomy and colostomy placement. Patient has been following with a colorectal surgeon for complicated colostomy reversal. CT scan abdomen pelvis with oral contrast reports midline, ventral adhesion and/or fistula. Inflammatory process involves most of the distal ileum. Marked wall thickening of the distal ileum/terminal consistent with Crohn's disease. No evidence of bowel obstruction. Generalized mesenteric inflammatory fat stranding. There is thickening in the midline soft tissues. Soft tissue density extends from skin to abdominal wall and into area likely adherent small bowel loops. Fistula cannot be excluded. Afebrile. WBC is down from 13.1-9.6 PHYSICAL EXAM: VITAL SIGNS: Reviewed GENERAL: Well-developed in no acute distress. HEENT: No sclera icterus. Extraocular movements grossly intact. Moist buccal mucosa. Head is atraumatic, normocephalic. Hears conversational speech. No nasal drainage. NECK: Supple without lymphadenopathy. CHEST: Non-labored respirations and equal bilateral excursions. CARDIOVASCULAR: Palpable 2+ radial pulses. ABDOMEN: Soft. Nondistended. Right upper quadrant abdominal tenderness MUSCULOSKELETAL: No clubbing or cyanosis. NEUROLOGIC: No focal or lateralizing signs. Cranial nerves II through XII grossly intact. PSYCH: Appropriate affect. Alert and oriented to person, place and time. SKIN: Well perfused. Good skin turgor. ASSESSMENT: 1. Abdominal pain, acute on chronic right upper quadrant 2. Diverticulitis status post colostomy creation 3. End-stage renal disease dialysis dependent due to FSGS 4. Abnormal CT scan for Crohn's disease 5. Chronic iron deficiency anemia 6. Hypertensive heart disease 7. History of cholecystectomy PLAN: 1. Patient has no pre-existing history of Crohn's disease. Patient being evaluated by GI service. They have ordered a small bowel follow-through 2. Patient is scheduled to undergo colostomy reversal at outside facility within 3 weeks. 3. Patient reports prior episodes treated conservatively with IV antibiotics under guidance of infectious disease provider. Consult Dr. Solomon. Patient had response to Zosyn in the past. 4. No acute surgical invention needed at this time. 5. Continue Renal diet Physician Tongue Stitcher note has been reviewed by physician. Signing provider agrees with the documented findings, assessment, and plan of care. Objective - Vital Signs Vital signs: Vital Signs Temp 97.5 F L 09/05/23 07:15 Pulse 69 09/05/23 07:50 Resp 18 09/05/23 07:50 BP 162/94 09/05/23 07:15 Pulse Ox 99 09/05/23 07:15 FiO2 Intake & Output 09/04/23 09/05/23 09/05/23 18:59 06:59 18:59 Intake Total 700 Output Total 3000 Balance -2300 Weight 82.554 kg Intake: Hemodialysis 700 Output: Hemodialysis 3000 Other: Voiding Method Toilet Toilet Toilet # Voids 0 3 - Labs CBC & Chem 7: 09/05/23 05:19 09/05/23 05:19 Labs: Abnormal Lab Results - Last 24 Hours (Table) 09/05/23 09/05/23 09/05/23 Range/Units 05:19 05:19 05:19 RBC 2.78 L (3.80-5.40) m/uL Hgb 8.1 L (11.4-16.0) gm/dL Hct 26.4 L (34.0-46.0) % MCHC 30.8 L (31.0-37.0) g/dL RDW 17.8 H (11.5-15.5) % Sodium 136 L (137-145) mmol/L BUN 24 H (7-17) mg/dL Creatinine 6.49 H (0.52-1.04) mg/dL Calcium 8.0 L (8.4-10.2) mg/dL C-Reactive Protein 3.9 H (<1.0) mg/dL Procalcitonin 0.38 H (0.02-0.09) ng/mL
[2023-09-05 16:11] LABS: % Iron Saturation 28.49 (12.00-45.00)
[2023-09-05 16:30] LABS: Erythrocyte Sedimentation Rate 33 mm/Hr (0-20)
--- NOTE | 2023-09-05 17:42 | P.CONS ---
History of Present Illness - Reason for Consult Consult date: 09/05/23 Acute Crohn's disease Requesting physician: Raisa Heart - Chief Complaint Abdominal pain - History of Present Illness This is a 42-year-old female with a past medical history including diverticulitis with diverticular rupture requiring colonoscopy who follows closely with Dr. Blackburn who presented to the emergency department yesterday with complaints of severe abdominal pain associated with nausea and vomiting. Past medical history includes end-stage renal disease on hemodialysis, hypertension and seizure disorder. Perforated diverticulitis with colostomy placement happened in January or March 2023. In May 2023 patient was scheduled for colostomy reversal, however due to intra-abdominal abscess procedure was aborted. She was referred to a colorectal specialist Dr. Lomas in a [facility]. She is scheduled to undergo colostomy reversal September 24. She denies any fevers or chills currently but states last week she did have a fever for 2 days. She denies any blood in her stool. States that she has to empty her bag couple times a day. Noticed over the last couple days she was having more output. States that today her abdominal pain has improved. No nausea or vomiting. She is afebrile. She underwent a CT of the abdomen pelvis with IV contrast that reported findings concerning for acute Crohn's disease. Gastroenterology was consulted for possible Crohn's disease. Patient denies any history of Crohn's disease. No family history of Crohn's disease. She has undergone upper endoscopy on 05/27/[address] Blackburn with findings of LA grade B erosive esophagitis and duodenal polyp. Biopsy results report duodenal biopsy benign polypoid small bowel mucosa with intact villous architecture and mild reactive changes. Superficial mucosal pigment deposition colonoscopy was 05/16/2023 colonoscopy via stoma reported severe scattered diverticulosis no evidence of focal colitis. Flexible sigmoidoscopy then performed reporting mild proctitis with bleeding, a few sigmoid diverticulosis and grade 1 internal hemorrhoids Review of Systems REVIEW OF SYSTEMS: CARDIOPULMONARY: No chest pain or shortness of breath. Gastrointestinal: Abdominal pain. No nausea or vomiting. No hematemesis, coffee-ground emesis. No rectal bleeding, or melena. Increased output from colostomy GENITOURINARY: No dysuria or hematuria. MUSCULOSKELETAL: Reports normal range of motion. SKIN: No rashes. No jaundice. ENDOCRINE: No chills, fevers. No excessive weight gain or loss. No polydipsia or polyuria. PSYCHIATRIC: Unremarkable. NEUROLOGY: No change in mental status. Denies dizziness, headache. ENT: Vision unremarkable. CONSTITUTIONAL: No recent weight loss. No fever, chills, night sweats. 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 none since then, SWOLLEN OPTICAL NERVE & RETINA, STATES VISION BLURRED AT TIMES, PSEUDO TUMOR BRAIN, HX GOUT, ANEMIA, KIDNEY FAILURE-HAS DIALYSIS fistula LUE for HEMODIALYSIS [id number] FSGS (FOCAL SEGMENTAL GLOMERULOSCLEROSIS), COLITIS, DIVERTICULITIS, BLEEDING GASTRIC ULCER, colostomy History of Any Multi-Drug Resistant Organisms: None Reported Past Surgical History: Bowel Resection, Section, Cholecystectomy Additional Past Surgical History / Comment(s): peritoneal dialysis catheter and removal, Fistual LUE., sigmoid colectomy with colostomy, percutaneous cholecystostomy tube insertion and removal, lysis of adhesions Past Anesthesia/Blood Transfusion Reactions: No Reported Reaction Past Psychological History: Anxiety Smoking Status: Former smoker Past Alcohol Use History: None Reported, Occasional Past Drug Use History: Marijuana - Past Family History Father Family Medical History: Myocardial Infarction ([place]) Additional Family Medical History / Comment(s): FATHER AT AGE 35 OF MASSIVE HEART ATTACK Mother Family Medical History: Cancer, Deep Vein Thrombosis (DVT) Additional Family Medical History / Comment(s): SKIN CANCER Medications and Allergies Home Medications Medication Instructions Recorded Confirmed Type Famotidine [Pepcid] 20 mg PO DAILY #30 tablet 11/23/22 09/04/23 Rx amLODIPine [Norvasc] 10 mg PO DAILY #30 tab 12/07/22 09/04/23 Rx cloNIDine HCL [Catapres] 0.1 mg PO TID #90 tab 12/07/22 09/04/23 Rx Acetaminophen Tab [Tylenol] 1,000 mg PO Q6HR PRN #30 tablet 05/24/23 09/04/23 Rx Sucroferric Oxyhydroxide [Velphoro] 1,000 mg PO TID-W/MEALS 05/26/23 09/04/23 History hydrALAZINE HCL [Apresoline] 100 mg PO TID 05/26/23 09/04/23 History lisinopriL [Zestril] 20 mg PO BID 05/26/23 09/04/23 History Darbepoetin Shahram [Aranesp] 40 mcg SQ MO 06/03/23 09/04/23 History Metoprolol Tartrate [Lopressor] 50 mg PO BID 09/04/23 09/04/23 History Virt-Caps 1 cap PO DAILY 09/04/23 09/04/23 History tiZANidine [Zanaflex] 4 mg PO HS 09/04/23 09/04/23 History Allergies Allergy/AdvReac Type Severity Reaction Status Date / Time iron AdvReac Severe Nausea & Verified 09/04/23 15:02 Vomiting & Diarrhea ciprofloxacin [From Cipro] AdvReac UNCONTROLLABLE Verified 09/04/23 15:02 EMOTIONS PER PT Pertussis Vaccines AdvReac seizures Verified 09/04/23 15:02 Physical Exam Vitals: Vital Signs Temp Pulse Pulse Pulse Pulse Resp BP 09/05/23 07:15 97.5 F L 69 18 09/05/23 02:11 97.7 F 79 15 09/04/23 20:25 98.0 F 83 18 09/04/23 18:35 70 18 160/74 09/04/23 18:27 98.3 F 84 16 09/04/23 18:19 98 F 76 18 09/04/23 13:25 82 18 162/98 BP Pulse Ox 09/05/23 07:15 162/94 99 09/05/23 02:11 151/78 94 L 09/04/23 20:25 168/85 93 L 09/04/23 18:35 98 09/04/23 18:27 175/91 97 09/04/23 18:19 173/93 09/04/23 13:25 95 Intake and Output 09/04/23 09/05/23 09/05/23 22:59 06:59 14:59 Intake Total 700 Output Total 3000 Balance -2300 Intake: Hemodialysis 700 Output: Hemodialysis 3000 Other: Voiding Method Toilet # Voids 0 3 Weight 82.554 kg General appearance: The patient is alert, oriented, appears in no acute distress. HET: Head is normocephalic and atraumatic. Conjunctiva pink. Sclera anicteric. Neck: Supple without lymphadenopathy. Trachea midline. Heart: Regular. Lungs: Equal expansion, normal respiratory effort. Abdomen: Soft, mild tenderness right mid to lower abdomen, left abdomen with colostomy with greenish-brown output, nondistended. Skin: No rashes. No jaundice. Extremities: Normal skin color and turgor. No pedal edema. Neurological: No focal deficits. Alert and oriented x3. Results CBC & Chem 7: 09/05/23 05:19 09/05/23 05:19 Labs: Abnormal Lab Results - Last 24 Hours (Table) 09/04/23 09/04/23 09/05/23 Range/Units 09:57 09:57 05:19 WBC 13.1 H (3.8-10.6) k/uL RBC 3.11 L 2.78 L (3.80-5.40) m/uL Hgb 9.0 L 8.1 L (11.4-16.0) gm/dL Hct 28.7 L 26.4 L (34.0-46.0) % MCHC 30.8 L (31.0-37.0) g/dL RDW 17.8 H 17.8 H (11.5-15.5) % Neutrophils # 11.7 H (1.3-7.7) k/uL Lymphocytes # 0.9 L (1.0-4.8) k/uL Sodium 136 L (137-145) mmol/L BUN 42 H (7-17) mg/dL Creatinine 9.76 H* (0.52-1.04) mg/dL Calcium 8.2 L (8.4-10.2) mg/dL Total Protein 6.2 L (6.3-8.2) g/dL Comments: 09/05/2023 CT scan abdomen pelvis with oral contrast reports midline, ventral a dhesion and/or fistula. Inflammatory process involves most of the distal ileum. Marked wall thickening of the distal ileum/terminal consistent with Crohn's disease. No evidence of bowel obstruction. Generalized mesenteric inflammatory fat stranding. There is thickening in the midline soft tissues. Soft tissue density extends from skin to abdominal wall and into area likely adherent small bowel loops. Fistula cannot be excluded. 09/04/2023 CT abdomen pelvis without contrast reports active Crohn's disease with acute inflammatory process involving the terminal ileum with diffuse inflammat ory mesenteric fat stranding Assessment and Plan (1) Abdominal pain Narrative/Plan: 42-year-old female with history of abdominal pain, end-stage renal disease on hemodialysis and history of diverticulitis with perforation requiring colostomy who follows closely with Dr. Blackburn presented with abdominal pain. Unclear etiology at this time. CT abdomen pelvis reporting inflammation and most of the distal ileum, small bowel inflammation. Concerns for possible Crohn's disease however patient is had no previous history of Crohn's disease. Will further evaluate with small bowel series with further recommendations forthcoming. Patient may need to undergo repeat colonoscopy in the future. She does have a follow-up coming up with colorectal specialist out of [facility] for reversal of colostomy in August 2025. Current Visit: No Status: Acute Priority: High Code(s): R10.9 - UNSPECIFIED ABDOMINAL PAIN SNOMED Code(s): 22378470 (2) Diverticulosis Current Visit: Yes Status: Acute Code(s): K57.90 - DVRTCLOS OF INTEST, PART UNSP, W/O PERF OR ABSCESS W/O BLEED SNOMED Code(s): 585352936 (3) ESRD on dialysis Current Visit: Yes Status: Acute Code(s): N18.6 - END STAGE RENAL DISEASE; Z99.2 - DEPENDENCE ON RENAL DIALYSIS SNOMED Code(s): 912349094 (4) Perforation of sigmoid colon due to diverticulitis Current Visit: No Status: Acute Code(s): K57.20 - DVTRCLI OF LG INT W PERFORATION AND ABSCESS W/O BLEEDING SNOMED Code(s): 6384377153690162 (5) Status post colostomy Current Visit: No Status: Acute Code(s): Z93.3 - COLOSTOMY STATUS SNOMED Code(s): 713410194 Plan: 1. Continue symptomatic and supportive care 2. Diet per recommendations from general surgery, n.p.o. after midnight 3. Small bowel follow-through ordered 4. Continue with recommendations from general surgery 5. CRP and sed rate ordered 6. No plans on endoscopic evaluation at this time from gastroenterology 7. Further recommendations forthcoming Thank you for this consultation, we will continue to follow. Dr. Erick Rachel I agree with the dictator's note, documented as a scribe by Yvette Garcia.
[2023-09-05] MEDS: PIPERACILLIN-TAZOBACTAM 3.375 GM in SODIUM CHLORIDE 0.9% 100 ML IVPB SCH (18:18)
--- NOTE | 2023-09-05 22:14 | P.CONS ---
History of Present Illness - Reason for Consult Consult date: 09/05/23 - History of Present Illness Patient is a 42-year-old female with a past medical history significant for hypertension seizure disorder end-stage renal disease on dialysis patient did have a history of perforated diverticulitis status post laparotomy and diverting colostomy presenting to the hospital with abdominal pain started the night before presentation to the hospital patient describes the pain to be mostly in the mid abdominal and epigastric area describing it to be squeezing sensation moderate to severe intensity, without any radiation did have associated nausea but no vomiting and no diarrhea patient denies high-grade fever on presentation to the hospital the patient was afebrile and no fever have been recorded subsequently patient was not tachycardic hypotensive or hypoxic and not requiring supplemental oxygen she did have a white count of 13.1 on admission subsequent normalized immediately creatinine has been elevated liver enzymes are normal CRP is 3.9 Pro-Ted 0.38 patient did have a abdominal pelvis CT concerning for acute inflammatory process involving the terminal ileum with diffuse inflammatory mesenteric fat stranding per radiology it was active Crohn's disease patient also have a repeat CT abdominal pelvis completed this afternoon and if limited processed 1 most of the distal ileum marked wall thickening consistent with Crohn's disease soft tissue density extends from the skin to the abdominal wall and dilated small bowel loops fistula not excluded infectious disease was consulted for further management 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 none since then, SWOLLEN OPTICAL NERVE & RETINA, STATES VISION BLURRED AT TIMES, PSEUDO TUMOR BRAIN, HX GOUT, ANEMIA, KIDNEY FAILURE-HAS DIALYSIS fistula LUE for HEMODIALYSIS [id number] FSGS (FOCAL SEGMENTAL GLOMERULOSCLEROSIS), COLITIS, DIVERTICULITIS, BLEEDING GASTRIC ULCER, colostomy History of Any Multi-Drug Resistant Organisms: None Reported Past Surgical History: Bowel Resection, Section, Cholecystectomy Additional Past Surgical History / Comment(s): peritoneal dialysis catheter and removal, Fistual LUE., sigmoid colectomy with colostomy, percutaneous cholecystostomy tube insertion and removal, lysis of adhesions Past Anesthesia/Blood Transfusion Reactions: No Reported Reaction Past Psychological History: Anxiety Smoking Status: Former smoker Past Alcohol Use History: None Reported, Occasional Past Drug Use History: Marijuana - Past Family History Father Family Medical History: Myocardial Infarction (DE) Additional Family Medical History / Comment(s): FATHER AT AGE 35 OF MASSIVE HEART ATTACK Mother Family Medical History: Cancer, Deep Vein Thrombosis (DVT) Additional Family Medical History / Comment(s): SKIN CANCER Medications and Allergies Home Medications Medication Instructions Recorded Confirmed Type Famotidine [Pepcid] 20 mg PO DAILY #30 tablet 11/23/22 09/04/23 Rx amLODIPine [Norvasc] 10 mg PO DAILY #30 tab 12/07/22 09/04/23 Rx cloNIDine HCL [Catapres] 0.1 mg PO TID #90 tab 12/07/22 09/04/23 Rx Acetaminophen Tab [Tylenol] 1,000 mg PO Q6HR PRN #30 tablet 05/24/23 09/04/23 Rx Sucroferric Oxyhydroxide [Velphoro] 1,000 mg PO TID-W/MEALS 05/26/23 09/04/23 History hydrALAZINE HCL [Apresoline] 100 mg PO TID 05/26/23 09/04/23 History lisinopriL [Zestril] 20 mg PO BID 05/26/23 09/04/23 History Darbepoetin Shahram [Aranesp] 40 mcg SQ MO 06/03/23 09/04/23 History Metoprolol Tartrate [Lopressor] 50 mg PO BID 09/04/23 09/04/23 History Virt-Caps 1 cap PO DAILY 09/04/23 09/04/23 History tiZANidine [Zanaflex] 4 mg PO HS 09/04/23 09/04/23 History Allergies Allergy/AdvReac Type Severity Reaction Status Date / Time iron AdvReac Severe Nausea & Verified 09/04/23 15:02 Vomiting & Diarrhea ciprofloxacin [From Cipro] AdvReac UNCONTROLLABLE Verified 09/04/23 15:02 EMOTIONS PER PT Pertussis Vaccines AdvReac seizures Verified 09/04/23 15:02 Physical Exam Vitals: Vital Signs Temp Pulse Pulse Pulse Pulse Resp BP 09/05/23 14:18 97.8 F 80 18 09/05/23 07:50 69 18 09/05/23 07:15 97.5 F L 69 18 09/05/23 02:11 97.7 F 79 15 09/04/23 20:25 98.0 F 83 18 09/04/23 18:35 70 18 160/74 09/04/23 18:27 98.3 F 84 16 09/04/23 18:19 98 F 76 18 BP Pulse Ox 09/05/23 14:18 156/95 97 09/05/23 07:50 09/05/23 07:15 162/94 99 09/05/23 02:11 151/78 94 L 09/04/23 20:25 168/85 93 L 09/04/23 18:35 98 09/04/23 18:27 175/91 97 09/04/23 18:19 173/93 Intake and Output 09/05/23 09/05/23 09/05/23 06:59 14:59 22:59 Other: Voiding Method Toilet # Voids 3 Results CBC & Chem 7: 09/05/23 05:19 09/05/23 05:19 Labs: Abnormal Lab Results - Last 24 Hours (Table) 09/05/23 09/05/23 09/05/23 Range/Units 05:19 05:19 05:19 RBC 2.78 L (3.80-5.40) m/uL Hgb 8.1 L (11.4-16.0) gm/dL Hct 26.4 L (34.0-46.0) % MCHC 30.8 L (31.0-37.0) g/dL RDW 17.8 H (11.5-15.5) % ESR 33 H (0-20) mm/Hr Sodium 136 L (137-145) mmol/L BUN 24 H (7-17) mg/dL Creatinine 6.49 H (0.52-1.04) mg/dL Calcium 8.0 L (8.4-10.2) mg/dL TIBC (228-460) UG/DL Transferrin (204.0-354.0) mg/dL Ferritin (10.0-291.0) ng/mL C-Reactive Protein 3.9 H (<1.0) mg/dL Procalcitonin 0.38 H (0.02-0.09) ng/mL 09/05/23 Range/Units 05:19 RBC (3.80-5.40) m/uL Hgb (11.4-16.0) gm/dL Hct (34.0-46.0) % MCHC (31.0-37.0) g/dL RDW (11.5-15.5) % ESR (0-20) mm/Hr Sodium (137-145) mmol/L BUN (7-17) mg/dL Creatinine (0.52-1.04) mg/dL Calcium (8.4-10.2) mg/dL TIBC 186 L (228-460) UG/DL Transferrin 133.0 L (204.0-354.0) mg/dL Ferritin 911.0 H (10.0-291.0) ng/mL C-Reactive Protein (<1.0) mg/dL Procalcitonin (0.02-0.09) ng/mL Assessment and Plan Plan: 1patient presented to hospital with abdominal pain nausea and vomiting this patient noticed to have significant normality around the terminal ileum on 2 CAT scan with a question of inflammatory bowel disease versus ileitis, patient did have a mild DVT white on admission but no regular fever and denies having any hematochezia 2we will obtain blood cultures 3empirically start the patient on Zosyn while waiting for the workup to be c ompleted 4GI and surgery following the patient Question concern answered We will follow on clinical condition and cultures to further adjust medication if needed Thank you for this consultation we will follow the patient along with you Dictation was produced using [employer] dictation software. please excuse any grammatical, word or spelling errors. Time with Patient: Greater than 30
--- NOTE | 2023-09-06 09:35 | XR ---
EXAMINATION TYPE: XR abdomen 1V DATE OF EXAM: 09/06/2023 8:44 AM CLINICAL INDICATION:Female, 42 years old with history of ABDOMINAL PAIN; [facility] COMPARISON: None. TECHNIQUE: One radiographic view of the abdomen was obtained. FINDINGS: Oral contrast from prior exam noted. Oral contrast extends to the descending colon. The wade endix is opacified and normal. The bowel gas pattern is nonspecific without dilated loops of small or large bowel. There is no evidence for organomegaly or pneumoperitoneum. The osseous structures are intact. Possible left renal calculi noted versus inspissated oral contrast. Fecal material and gas ar e demonstrated throughout the colon and rectum. IMPRESSION: Nonspecific bowel gas pattern without radiographic evidence for acute process.
--- NOTE | 2023-09-06 11:30 | P.PN ---
Subjective Patient is seen in follow-up for end-stage renal disease. She is maintained on hemodialysis on Saturday schedule. Tolerating dialysis well. Hemodynamically stable. Abdominal pain improved. Vital signs are stable. General: No acute distress. HEENT: Head exam is unremarkable. LUNGS: No audible rhonchi or wheezes. HEART: Rate and Rhythm are regular. ABDOMEN: Colostomy noted. Mild generalized tenderness. EXTREMITITES: No edema. Objective - Vital Signs Vital signs: Vital Signs Temp 98.0 F 09/06/23 07:07 Pulse 71 09/06/23 07:07 Resp 16 09/06/23 07:07 BP 143/86 09/06/23 07:07 Pulse Ox 98 09/06/23 07:07 FiO2 Intake & Output 09/05/23 09/06/23 09/06/23 18:59 06:59 18:59 Intake Total 500 590 Balance 500 590 Intake: Oral 500 590 Other: Voiding Method Toilet Toilet - Labs CBC & Chem 7: 09/05/23 05:19 09/05/23 05:19 Labs: Abnormal Lab Results - Last 24 Hours (Table) 09/05/23 09/05/23 09/05/23 Range/Units 05:19 05:19 17:49 ESR 33 H (0-20) mm/Hr TIBC 186 L (228-460) UG/DL Transferrin 133.0 L (204.0-354.0) mg/dL Ferritin 911.0 H (10.0-291.0) ng/mL C-Reactive Protein 3.9 H (<1.0) mg/dL Assessment and Plan Plan: Assessment: 1. End-stage renal disease maintained on hemodialysis on Saturday schedule. 2. Hypertension with chronic kidney disease. Stable. 3. History of diverticulitis status post colostomy creation. Scheduled for reversal later this month. 4. Abdominal pain. Surgery following. It is noted the patient does not have pre-existing history of Crohn's disease. Being followed by GI. ID also following. 5. Anemia of chronic kidney disease. Iron replete. 6. Chronic kidney disease mineral bone disease maintained on Renvela. Plan: Currently seen while undergoing hemodialysis. Next treatment on Saturday. Add Aranesp.
--- NOTE | 2023-09-06 13:03 | P.PN ---
Subjective Progress Note Date: 09/06/23 Principal diagnosis: Abdominal pain, small bowel inflammation This is a 42-year-old female with a past medical history including diverticulitis with diverticular rupture requiring colonoscopy who follows closely with Dr. Blackburn who presented to the emergency department yesterday with complaints of severe abdominal pain associated with nausea and vomiting. Past medical history includes end-stage renal disease on hemodialysis, hypertension and seizure disorder. Perforated diverticulitis with colostomy placement happened in January or March 2023. In May 2023 patient was scheduled for colostomy reversal, however due to intra-abdominal abscess procedure was aborted. She was referred to a colorectal specialist Dr. Lomas in a [facility]. She is scheduled to undergo colostomy reversal September 24. She denies any fevers or chills currently but states last week she did have a fever for 2 days. She denies any blood in her stool. States that she has to em pty her bag couple times a day. Noticed over the last couple days she was having more output. States that today her abdominal pain has improved. No nausea or vomiting. She is afebrile. She underwent a CT of the abdomen pelvis with IV contrast that reported findings concerning for acute Crohn's disease. Gastroenterology was consulted for possible Crohn's disease. Patient denies any history of Crohn's disease. No family history of Crohn's disease. She has undergone upper endoscopy on [address] Blackburn with findings of LA grade B erosive esophagitis and duodenal polyp. Biopsy results report duodenal biopsy benign polypoid small bowel mucosa with intact villous architecture and mild reactive changes. Superficial mucosal pigment deposition colonoscopy was 05/16/2023 colonoscopy via stoma reported severe scattered diverticulosis no evidence of focal colitis. Flexible sigmoidoscopy then performed reporting mild proctitis with bleeding, a few sigmoid diverticulosis and grade 1 internal hemorrhoids 09/06/2023 Patient seen and examined today as a follow-up. She is sitting up in bed.'s small bowel follow-through ordered however this was canceled by radiology as they said patient had too much contrast and small bowel could be seen on CT scan with inflammation. Patient states abdominal pain has improved. No nausea or vomiting. She did have elevated sed rate and CRP.'s sed rate was 33 and CRP 3.9. Patient is afebrile. Iron studies were collected and not consistent with iron deficiency anemia. Likely anemia related to anemia of chronic disease with underlying kidney disease. Patient states she is still having increased output from her colostomy, which has been more than normal, nonbloody, very loose. Objective - Vital Signs Vital signs: Vital Signs Temp 98.0 F 09/06/23 01:58 Pulse 69 09/06/23 01:58 Resp 16 09/06/23 01:58 BP 128/80 09/06/23 01:58 Pulse Ox 96 09/06/23 01:58 FiO2 Intake & Output 09/05/23 09/05/23 09/06/23 06:59 18:59 06:59 Intake Total 500 590 Balance 500 590 Intake: Oral 500 590 Other: Voiding Method Toilet Toilet Toilet # Voids 3 - Exam General appearance: The patient is alert, oriented, appears in no acute distress. HET: Head is normocephalic and atraumatic. Conjunctiva pink. Sclera anicteric. Neck: Supple without lymphadenopathy. Abdomen: Soft, right lower quadrant tenderness, left abdomen with colostomy bag, nondistended. Extremities: Normal skin color and turgor. No pedal edema Skin: No rashes, no jaundice Neurological: No focal deficits. Alert and oriented. - Labs CBC & Chem 7: 09/05/23 05:19 09/05/23 05:19 Labs: Abnormal Lab Results - Last 24 Hours (Table) 09/05/23 09/05/23 09/05/23 Range/Units 05:19 05:19 05:19 RBC 2.78 L (3.80-5.40) m/uL Hgb 8.1 L (11.4-16.0) gm/dL Hct 26.4 L (34.0-46.0) % MCHC 30.8 L (31.0-37.0) g/dL RDW 17.8 H (11.5-15.5) % ESR 33 H (0-20) mm/Hr Sodium 136 L (137-145) mmol/L BUN 24 H (7-17) mg/dL Creatinine 6.49 H (0.52-1.04) mg/dL Calcium 8.0 L (8.4-10.2) mg/dL TIBC (228-460) UG/DL Transferrin (204.0-354.0) mg/dL Ferritin (10.0-291.0) ng/mL C-Reactive Protein 3.9 H (<1.0) mg/dL Procalcitonin 0.38 H (0.02-0.09) ng/mL 09/05/23 09/05/23 Range/Units 05:19 17:49 RBC (3.80-5.40) m/uL Hgb (11.4-16.0) gm/dL Hct (34.0-46.0) % MCHC (31.0-37.0) g/dL RDW (11.5-15.5) % ESR (0-20) mm/Hr Sodium (137-145) mmol/L BUN (7-17) mg/dL Creatinine (0.52-1.04) mg/dL Calcium (8.4-10.2) mg/dL TIBC 186 L (228-460) UG/DL Transferrin 133.0 L (204.0-354.0) mg/dL Ferritin 911.0 H (10.0-291.0) ng/mL C-Reactive Protein 3.9 H (<1.0) mg/dL Procalcitonin (0.02-0.09) ng/mL Assessment and Plan (1) Abdominal pain Narrative/Plan: 42-year-old female with history of abdominal pain, end-stage renal disease on hemodialysis and history of diverticulitis with perforation requiring colostomy who follows closely with Dr. Blackburn presented with abdominal pain. Unclear etiology at this time. CT abdomen pelvis reporting inflammation and most of the distal ileum, small bowel inflammation. Concerns for possible Crohn's disease however patient is had no previous history of Crohn's disease. Will further evaluate with small bowel series with further recommendations forthcoming. Patient may need to undergo repeat colonoscopy in the future. She does have a follow-up coming up with colorectal specialist out of [place] for reversal of colostomy in August 2025. Small bowel series canceled by radiology due to too much contrast. Abdominal pain improving. Small bowel inflammation, elevated sed rate and CRP as well as right lower quadrant abdominal pain could be secondary to inflammatory bowel disease. Recommend further outpatient follow-up and management per patient's primary general surgeon Dr. Blackburn. Current Visit: No Status: Acute Priority: High Code(s): R10.9 - UNSPECIFIED ABDOMINAL PAIN SNOMED Code(s): 96418559 (2) Diverticulosis Current Visit: Yes Status: Acute Code(s): K57.90 - DVRTCLOS OF INTEST, PART UNSP, W/O PERF OR ABSCESS W/O BLEED SNOMED Code(s): 989477147 (3) ESRD on dialysis Current Visit: Yes Status: Acute Code(s): N18.6 - END STAGE RENAL DISEASE; Z99.2 - DEPENDENCE ON RENAL DIALYSIS SNOMED Code(s): 542432730 (4) Perforation of sigmoid colon due to diverticulitis Current Visit: No Status: Acute Code(s): K57.20 - DVTRCLI OF LG INT W PERFORATION AND ABSCESS W/O BLEEDING SNOMED Code(s): 3759498699737440 (5) Status post colostomy Current Visit: No Status: Acute Code(s): Z93.3 - COLOSTOMY STATUS SNOMED Code(s): 121190917 Plan: 1. Continue symptomatic and supportive care 2. Diet per recommendations from general surgery 3. Small bowel follow-through canceled per radiology 4. Recommend outpatient follow-up and management per patient's primary general surgeon Dr. Blackburn 5. Patient can follow-up with gastroenterology as needed Thank you for this consultation, We will sign off at this time Dr. Erick Rachel I agree with the dictator's note, documented as a scribe by Yvette Garcia.
--- NOTE | 2023-09-06 14:39 | P.PN ---
Subjective Progress Note Date: 09/06/23 CHIEF COMPLAINT: Abdominal pain HISTORY OF PRESENT ILLNESS: Patient getting hemodialysis. She reports decrease in abdominal pain. She is having output through her ostomy. She denies any nausea or vomiting. She initially was scheduled for small bowel follow-through ordered by GI service. This was canceled after radiology did an initial abdominal x-ray and contrast was seen through the colon. Patient was seen by infectious disease and started on IV antibiotics. Afebrile. No new labs. PHYSICAL EXAM: VITAL SIGNS: Reviewed GENERAL: Well-developed in no acute distress. HEENT: No sclera icterus. Extraocular movements grossly intact. Moist buccal mucosa. Head is atraumatic, normocephalic. Hears conversational speech. No nasal drainage. NECK: Supple without lymphadenopathy. CHEST: Non-labored respirations and equal bilateral excursions. CARDIOVASCULAR: Palpable 2+ radial pulses. ABDOMEN: Soft. Nondistended. mild discomfort Right upper quadrant MUSCULOSKELETAL: No clubbing or cyanosis. NEUROLOGIC: No focal or lateralizing signs. Cranial nerves II through XII grossly intact. PSYCH: Appropriate affect. Alert and oriented to person, place and time. SKIN: Well perfused. Good skin turgor. ASSESSMENT: 1. Abdominal pain, acute on chronic right upper quadrant 2. Diverticulitis status post colostomy creation 3. End-stage renal disease dialysis dependent due to FSGS 4. Abnormal CT scan for Crohn's disease 5. Chronic iron deficiency anemia 6. Hypertensive heart disease 7. History of cholecystectomy PLAN: 1. Patient has no pre-existing history of Crohn's disease. Radiology results reviewed with Dr. Blackburn. Patient does not have Crohn's. Radiology reading is not consistent with patient's clinical picture. 2. Patient is scheduled to undergo colostomy reversal at outside facility within 3 weeks. 3. Continue antibiotics per infectious disease 4. Resume renal diet 5. No surgical intervention planned 6. Patient can be discharged from surgical standpoint Physician Carrier Packer note has been reviewed by physician. Signing provider agrees with the documented findings, assessment, and plan of care. Objective - Vital Signs Vital signs: Vital Signs Temp 97.4 F L 09/06/23 13:24 Pulse 78 09/06/23 13:24 Resp 18 09/06/23 13:24 BP 202/87 09/06/23 13:24 Pulse Ox 98 09/06/23 07:07 FiO2 Intake & Output 09/05/23 09/06/23 09/06/23 18:59 06:59 18:59 Intake Total 500 590 400 Output Total 2900 Balance 500 590 -2500 Intake: Oral 500 590 Hemodialysis 400 Output: Hemodialysis 2900 Other: Voiding Method Toilet Toilet - Labs CBC & Chem 7: 09/05/23 05:19 09/05/23 05:19 Labs: Abnormal Lab Results - Last 24 Hours (Table) 09/05/23 09/05/23 09/05/23 Range/Units 05:19 05:19 17:49 ESR 33 H (0-20) mm/Hr TIBC 186 L (228-460) UG/DL Transferrin 133.0 L (204.0-354.0) mg/dL Ferritin 911.0 H (10.0-291.0) ng/mL C-Reactive Protein 3.9 H (<1.0) mg/dL
[2023-09-06] MEDS: DARBEPOETIN ALFA 40 MCG/0.4 ML SYRINGE SQ SCH (18:05)
--- NOTE | 2023-09-06 20:18 | P.PN ---
Subjective Progress Note Date: 09/06/23 Principal diagnosis: Reason for follow-up is leukocytosis and ileitis Patient is a 42-year-old female with a past medical history significant for hypertension seizure disorder end-stage renal disease on dialysis patient did have a history of perforated diverticulitis status post laparotomy and diverting colostomy presenting to the hospital with abdominal pain and vomiting patient did have a CT x 2 showing significant inflammatory changes in the terminal ileal area did have mild elevated white count admission. On today's evaluation that is 09/06/2023, patient has been afebrile, patient is breathing comfortably and is currently on room air, patient denies having any significant cough no chest pain shortness of breath, patient did have some nausea and abdominal discomfort but no worsening symptoms feeling slightly better. Patient did not have any lab draw today blood cultures pending Objective - Vital Signs Vital signs: Vital Signs Temp 98.0 F 09/06/23 07:07 Pulse 71 09/06/23 07:07 Resp 16 09/06/23 07:07 BP 143/86 09/06/23 07:07 Pulse Ox 98 09/06/23 07:07 FiO2 Intake & Output 09/05/23 09/06/23 09/06/23 18:59 06:59 18:59 Intake Total 500 590 Balance 500 590 Intake: Oral 500 590 Other: Voiding Method Toilet Toilet - Exam GENERAL DESCRIPTION: Middle-aged female lying in bed in no distress RESPIRATORY SYSTEM: Unlabored breathing , decreased breath sounds at bases HEART: S1 S2 regular rate and rhythm , ABDOMEN: Soft , mild tenderness EXTREMITIES: No edema feet - Labs CBC & Chem 7: 09/05/23 05:19 09/05/23 05:19 Labs: Abnormal Lab Results - Last 24 Hours (Table) 09/05/23 09/05/23 09/05/23 Range/Units 05:19 05:19 17:49 ESR 33 H (0-20) mm/Hr TIBC 186 L (228-460) UG/DL Transferrin 133.0 L (204.0-354.0) mg/dL Ferritin 911.0 H (10.0-291.0) ng/mL C-Reactive Protein 3.9 H (<1.0) mg/dL Assessment and Plan (1) Ileitis Current Visit: Yes Status: Acute Code(s): K52.9 - NONINFECTIVE GASTROENTERITIS AND COLITIS, UNSPECIFIED SNOMED Code(s): 69744206 (2) Leukocytosis Current Visit: No Status: Acute Code(s): D72.829 - ELEVATED WHITE BLOOD CELL COUNT, UNSPECIFIED SNOMED Code(s): 319303886 Plan: 1patient presented to hospital with abdominal pain nausea and vomiting this patient noticed to have significant normality around the terminal ileum on 2 CAT scan with a question of inflammatory bowel disease versus ileitis, patient did have a mild DVT white on admission but no regular fever and denies having any hematochezia 2patient white count normalized and blood culture currently pending 3patient to continue with Zosyn will benefit from colonoscopy and biopsy to confirm the diagnosis Dictation was produced using [employer] dictation software. please excuse any grammatical, word or spelling errors. Time with Patient: Less than 30
[2023-09-07 02:52] VITALS: RESP 18
--- NOTE | 2023-09-07 08:15 | P.PN ---
Progress Note - Text Progress Note Date: 09/06/23 All questions addressed with patient. Multiple CT imaging over the past 6 to 8 months reviewed without any prior features of Crohn's disease. Patient has pre- existing history of peritoneal dialysis catheter use over 2 years with pre- existing small bowel wall thickening. Clinical picture is disconcordant with radiology assessment for Crohn's disease. Due to patient's pending surgery for colostomy reversal, please avoid all steroids. Patient had well clinically responded to antibiotics. She reports feeling well since admission. Patient may be discharged from a surgical standpoint with follow-up with colorectal specialist, transplant specialist.
--- NOTE | 2023-09-07 11:34 | P.PN ---
Subjective Patient is seen in follow-up for end-stage renal disease. She is maintained on hemodialysis on Saturday schedule. No problems with dialysis yesterday. Hemodynamically stable. Abdominal pain improved. On renal diet. Vital signs are stable. General: No acute distress. HEENT: Head exam is unremarkable. LUNGS: No audible rhonchi or wheezes. HEART: Rate and Rhythm are regular. ABDOMEN: Colostomy noted. Mild generalized tenderness. EXTREMITITES: No edema. Objective - Vital Signs Vital signs: Vital Signs Temp 97.6 F 09/07/23 06:53 Pulse 75 09/07/23 08:02 Resp 18 09/07/23 06:53 BP 127/84 09/07/23 08:02 Pulse Ox 98 09/07/23 06:53 FiO2 Intake & Output 09/06/23 09/07/23 09/07/23 18:59 06:59 18:59 Intake Total 400 Output Total 2900 Balance -2500 Intake: Hemodialysis 400 Output: Hemodialysis 2900 Other: Voiding Method Toilet # Voids 0 2 - Labs CBC & Chem 7: 09/05/23 05:19 09/05/23 05:19 Labs: Microbiology - Last 24 Hours (Table) 09/05/23 17:58 Blood Culture - Preliminary Blood Assessment and Plan Plan: Assessment: 1. End-stage renal disease maintained on hemodialysis on Saturday schedule. 2. Hypertension with chronic kidney disease. Stable. 3. History of diverticulitis status post colostomy creation. Scheduled for reversal later this month. 4. Abdominal pain. Surgery following. It is noted the patient does not have pre-existing history of Crohn's disease. Being followed by GI. ID also following. 5. Anemia of chronic kidney disease. Iron replete. On Aranesp. 6. Chronic kidney disease mineral bone disease maintained on Renvela. Plan: Hemodialysis Saturday.
[2023-09-07 14:14] VITALS: BP 116/71; PULSE 65; TEMP 97.9
[2023-09-07 14:28] LABS: Anisocytosis Slight; Basophils # (A) 0.1 k/uL (0-0.2); Basophils % (A) 1 %; Eosinophils # (A) 0.3 k/uL (0-0.7); Eosinophils % (A) 2 %; HCT 29.3 % (34.0-46.0); HGB 9.5 gm/dL (11.4-16.0); Hypochromasia Moderate; Lymphocytes # (A) 1.1 k/uL (1.0-4.8); Lymphocytes % (A) 8 %; MCH 30.3 pg (25.0-35.0); MCHC 32.4 g/dL (31.0-37.0); MCV 93.4 fL (80.0-100.0); Mean Platelet Volume 7.9; Monocytes # (A) 0.6 k/uL (0-1.0); Monocytes % (A) 4 %; Neutrophils # (A) 12.3 k/uL (1.3-7.7); Neutrophils % (A) 85 %; Platelet Count 379 k/uL (150-450); Poikilocytosis Slight; RBC 3.14 m/uL (3.80-5.40); RDW 18.1 % (11.5-15.5); WBC 14.5 k/uL (3.8-10.6)
[2023-09-07 14:38] LABS: African American GFR (CKD) 7 (>60 ml/min/1.73 sqM); Anion Gap 15 mmol/L; Blood Urea Nitrogen 41 mg/dL (7-17); Calcium 8.2 mg/dL (8.4-10.2); Carbon Dioxide 23 mmol/L (22-30); Chloride 97 mmol/L (98-107); Glucose 83 mg/dL (74-99); Non-African American GFR(CKD) 6 (>60 ml/min/1.73 sqM); Potassium 4.6 mmol/L (3.5-5.1); Sodium 135 mmol/L (137-145)
--- NOTE | 2023-09-07 17:08 | P.PN ---
Subjective Progress Note Date: 09/06/23 42 years old female with past medical history of Hypertension, chrnoic renal disease requring hemodialysis, Seizure Disorder, PSEUDO TUMOR BRAIN, HX GOUT, ANEMIA, KIDNEY FAILURE-HAS DIALYSIS fistula LUE for HEMODIALYSIS -HX FSGS (FOCAL SEGMENTAL GLOMERULOSCLEROSIS), COLITIS, DIVERTICULITIS, BLEEDING GASTRIC ULCER, colostomy Patient presents because of abdominal pain of 4 days in duration. More severe this morning, she rates the pain as 9/10 in severity currently down to 7/10 Periumbilical and more to the right side, felt like he twisted sensation, pain itself is nonradiating with no specific precipitating or relieving factors She has colostomy with more liquidy bowel movements. She vomited once earlier. Patient vitals stable, afebrile blood pressure 174/80 Has mild leukocytosis 13.4, baseline is 8-16, hemoglobin 9 with baseline 7-9, creatinine is 9.7 the patient is a Dialysis patient EKG showing sinus rhythm at [address]-T changes CT of the abdomen and pelvis: Terminal ileum Crohn's disease flareup with diffuse inflammation and mesenteric Objective - Vital Signs Vital signs: Vital Signs Temp 98.0 F 09/06/23 07:07 Pulse 71 09/06/23 07:07 Resp 16 09/06/23 07:07 BP 143/86 09/06/23 07:07 Pulse Ox 98 09/06/23 07:07 FiO2 Intake & Output 09/05/23 09/06/23 09/06/23 18:59 06:59 18:59 Intake Total 500 590 Balance 500 590 Intake: Oral 500 590 Other: Voiding Method Toilet Toilet - Exam GENERAL: The patient is alert and oriented x3, not in any acute distress. Well developed, well nourished. HEENT: Pupils are round and equally reacting to light. EOMI. No scleral icterus. No conjunctival pallor. Normocephalic, atraumatic. No pharyngeal erythema. No thyromegaly. CARDIOVASCULAR: S1 and S2 present. No murmurs, rubs, or gallops. PULMONARY: Chest is clear to auscultation, no wheezing , no crackles. - ABDOMEN: Soft, right upper quadrant and right abdominal tenderness and little bit in the epigastric area to. No rebound tenderness, no guarding, nondistended, normoactive bowel sounds. No palpable organomegaly. MUSCULOSKELETAL: No joint swelling or deformity. EXTREMITIES: No cyanosis, clubbing, or pedal edema. NEUROLOGICAL: Gross neurological examination did not reveal any focal deficits. SKIN: No rashes. no petechiae. - Labs CBC & Chem 7: 09/07/23 14:16 09/07/23 14:16 Labs: Abnormal Lab Results - Last 24 Hours (Table) 09/05/23 09/05/23 09/05/23 Range/Units 05:19 05:19 17:49 ESR 33 H (0-20) mm/Hr TIBC 186 L (228-460) UG/DL Transferrin 133.0 L (204.0-354.0) mg/dL Ferritin 911.0 H (10.0-291.0) ng/mL C-Reactive Protein 3.9 H (<1.0) mg/dL Assessment and Plan Assessment: Acute gastroenteritis with CT of the abdomen showing terminal ileitis, suspected for acute process flareup of chronic disease, however patient has no prior history of Crohn's disease End-stage renal disease on hemodialysis Mild chronic leukocytosis, fluctuating Chronic anemia Hypertension History of diverticulitis status post colostomy History of focal segmental glomerulosclerosis Obesity with BMI of 31.2 Plan: Advance diet as tolerated, currently on renal diet Continue with hemodialysis per airline station agent Continue close monitoring Gastroenterology and surgery team consult Repeat CT of the abdomen and pelvis with contrast is pending Check pro- Calcitonin Check for C. difficile Labs and medication were reviewed.. Continue same treatment. Continue with symptomatic treatment. Resume home medication. Monitor labs and vitals. DVT and GI prophylaxis. Further recommendations as per clinical course of the patient DVT prophylaxis: Subcutaneous heparin GI Prophylaxis: Pepcid
== END 2023-09-07 16:21 | disposition home or self-care (01) | DRG 245 ==
LOC: EC 08:53 → 4SSUR 13:34
PROVIDERS: ADMIT Internal Medicine; ATTEND Internal Medicine
PROC: 5A1D70Z Performance of Urinary Filtration, Intermittent, Less than 6 Hours Per Day (ICD-10-PCS; principal; 2023-09-05)
DX: K50.012 Crohn's disease of small intestine with intestinal obstruction (principal); D50.9 Iron deficiency anemia, unspecified; D63.1 Anemia in chronic kidney disease; E66.9 Obesity, unspecified; F41.9 Anxiety disorder, unspecified; G40.909 Epilepsy, unspecified, not intractable, without status epilepticus; G89.29 Other chronic pain; I13.11 Hypertensive heart and chronic kidney disease without heart failure, with stage 5 chronic kidney disease, or end stage renal disease; K62.89 Other specified diseases of anus and rectum; K64.8 Other hemorrhoids; E83.9 Disorder of mineral metabolism, unspecified; K57.30 Diverticulosis of large intestine without perforation or abscess without bleeding; D72.829 Elevated white blood cell count, unspecified; M10.9 Gout, unspecified; N18.6 End stage renal disease; Z68.31 Body mass index [BMI] 31.0-31.9, adult; Z99.2 Dependence on renal dialysis; Z93.3 Colostomy status; Z28.310 Unvaccinated for COVID-19; Z87.891 Personal history of nicotine dependence; Z87.11 Personal history of peptic ulcer disease; Z90.49 Acquired absence of other specified parts of digestive tract; Z88.1 Allergy status to other antibiotic agents; Z88.7 Allergy status to serum and vaccine
CPT/HCPCS: 36415; 74018; 74176; 80048; 80053; 82150; 82728; 83540; 83550; 83605; 83690; 83735; 84100; 84145; 85025; 85652; 86140; 87040; 87324; 90935; 93005; 96374; 96375; 99285

== ENCOUNTER 2023-11-04 14:23 | Inpatient (IN) | payer OTHER ==
[~2023-11-04 14:23] MED LIST changes: -Antibiotics per Pharmacy 1 EACH MISC MISCELLANE PRN; -HEPARIN SODIUM,PORCINE 5,000 UNIT/ML 1 ML VIAL SQ PRN; -LIDOCAINE 1% (10MG/ML) FOR IV START INTRADERMA PRN; +NOREPINEPHRINE 1 MG/ML 4 ML VIAL IV ONE; +ONDANSETRON 4 MG/2 ML VIAL ONE; +SODIUM CHLORIDE 0.9% 1,000 ML BAG ONE; +SODIUM CHLORIDE 0.9% 100 ML BAG ONE; +SODIUM CHLORIDE 0.9% 250 ML BAG ONE; +VANCOMYCIN 1,000 MG VIAL ONE; +VANCOMYCIN 500 MG VIAL ONE
[2023-11-04] MEDS ORDERED: PIPERACILLIN-TAZOBACTAM 3.375 GM VIAL ONE (15:05)
[2023-11-04] MEDS ORDERED: methylPREDNISolone SOD SUCCI 40 MG/ML 1 ML VIAL ONE (15:34)
[2023-11-04] MEDS ORDERED: diphenhydrAMINE 50 MG/ML 1 ML VIAL ONE (15:36)
[2023-11-04] MEDS ORDERED: FAMOTIDINE 20 MG/2 ML VIAL ONE (15:36)
[2023-11-04] MEDS ORDERED: SODIUM ZIRCONIUM CYCLOSILICATE 10 GM PACKET ONE (15:42)
[2023-11-04] MEDS ORDERED: DEXTROSE 50% SYRINGE 50 ML IVP ONE (15:42)
[2023-11-04] MEDS ORDERED: CALCIUM GLUCONATE IN NACL 100 ML IVPB ONE (15:43)
[2023-11-04] MEDS ORDERED: INSULIN REGULAR 100 UNIT/ML VIAL (IV) ONE (15:52)
[2023-11-04] MEDS ORDERED: HYDROmorphone 0.5 MG/0.5 ML SYRINGE ONE (21:17)
[2023-11-05] MEDS ORDERED: HYDROmorphone 1 MG/ML 1 ML SYRINGE ONE (05:28)
[2023-11-05] MEDS ORDERED: MIDODRINE 5 MG TAB ONE ×3 (09:18→21:59)
[2023-11-05] MEDS ORDERED: SEVELAMER 800 MG TAB PO ONE (14:58)
[2023-11-05] MEDS ORDERED: VANCOMYCIN 500 MG VIAL ONE (15:00)
[2023-11-05] MEDS ORDERED: SODIUM CHLORIDE 0.9% 250 ML BAG ONE (15:00)
[2023-11-05] MEDS ORDERED: VANCOMYCIN 1,000 MG VIAL ONE (15:00)
[2023-11-05] MEDS ORDERED: ALTEPLASE 2 MG VIAL (CATHFLO) ONE (15:00)
[2023-11-05] MEDS ORDERED: HYDROmorphone 0.5 MG/0.5 ML SYRINGE ONE (20:45)
[2023-11-06] MEDS ORDERED: HYDROmorphone 0.5 MG/0.5 ML SYRINGE ONE ×5 (01:13→23:34)
[2023-11-06] MEDS ORDERED: PANTOPRAZOLE 40 MG/10 ML VIAL ONE (08:42)
[2023-11-06] MEDS ORDERED: SODIUM CHLORIDE 0.9% 250 ML BAG ONE (17:00)
[2023-11-06] MEDS ORDERED: SODIUM CHLORIDE 0.9% 500 ML BAG ONE (17:00)
[2023-11-06] MEDS ORDERED: NOREPINEPHRINE 1 MG/ML 4 ML VIAL IV ONE (17:00)
[2023-11-06] MEDS ORDERED: HEPARIN SODIUM,PORCINE 5,000 UNIT/ML 1 ML VIAL ONE (17:00)
[2023-11-06] MEDS ORDERED: LACTATED RINGERS 1,000 ML BAG ONE (17:00)
[2023-11-06] MEDS ORDERED: LIDOCAINE 1%/EPI 1:200,000 MPF 10 ML VIAL ONE (17:00)
[2023-11-06] MEDS ORDERED: fentaNYL (PF) 50 MCG/ML 2 ML AMP ONE (17:03)
[2023-11-06] MEDS ORDERED: PROPOFOL 10 MG/ML 20 ML VIAL IV ONE (17:03)
[2023-11-06] MEDS ORDERED: MIDAZOLAM 2 MG/2 ML VIAL ONE (17:03)
[2023-11-06] MEDS ORDERED: GLYCOPYRROLATE 0.2 MG/ML 2 ML VIAL ONE (17:03)
[2023-11-06] MEDS ORDERED: SEVELAMER 800 MG TAB PO ONE (20:00)
[2023-11-06] MEDS ORDERED: MIDODRINE 5 MG TAB ONE (20:48)
[2023-11-07] MEDS ORDERED: MIDODRINE 5 MG TAB ONE ×3 (04:34→21:56)
[2023-11-07] MEDS ORDERED: HYDROmorphone 0.5 MG/0.5 ML SYRINGE ONE ×3 (04:34→13:13)
[2023-11-07] MEDS ORDERED: PANTOPRAZOLE 40 MG/10 ML VIAL ONE (09:32)
[2023-11-07] MEDS ORDERED: DARBEPOETIN ALFA 40 MCG/0.4 ML SYRINGE ONE (21:00)
[2023-11-07] MEDS ORDERED: HYDROcodone/APAP 5-325MG 1 EACH TAB ONE (21:30)
[2023-11-08] MEDS ORDERED: MIDODRINE 5 MG TAB ONE (07:57)
[2023-11-08] MEDS ORDERED: PANTOPRAZOLE 40 MG/10 ML VIAL ONE (08:07)
[2023-11-08] MEDS ORDERED: SODIUM CHLORIDE 0.9% 1,000 ML BAG ONE (09:45)
[2023-11-08] MEDS ORDERED: AZTREONAM 1 GM VIAL ONE (23:59)
[2023-11-08] MEDS ORDERED: SODIUM CHLORIDE 0.9% 50 ML BAG IV ONE (23:59)
[2023-11-09] MEDS ORDERED: PANTOPRAZOLE 40 MG/10 ML VIAL ONE (08:17)
[2023-11-09] MEDS ORDERED: SODIUM CHLORIDE 0.9% 50 ML BAG IV ONE (23:59)
[2023-11-09] MEDS ORDERED: SODIUM CHLORIDE 0.9% 250 ML BAG ONE (23:59)
[2023-11-09] MEDS ORDERED: AZTREONAM 1 GM VIAL ONE (23:59)
[2023-11-09] MEDS ORDERED: VANCOMYCIN 500 MG VIAL ONE (23:59)
[2023-11-09] MEDS ORDERED: VANCOMYCIN 1,000 MG VIAL ONE (23:59)
[2023-11-10] MEDS ORDERED: PANTOPRAZOLE 40 MG/10 ML VIAL ONE (09:25)
[2023-11-10] MEDS ORDERED: SODIUM CHLORIDE 0.9% 50 ML BAG IV ONE (23:59)
[2023-11-10] MEDS ORDERED: SEVELAMER 800 MG TAB PO ONE (23:59)
[2023-11-10] MEDS ORDERED: AZTREONAM 1 GM VIAL ONE (23:59)
[2023-11-10] MEDS ORDERED: SODIUM CHLORIDE 0.9% 1,000 ML BAG ONE (23:59)
[2023-11-12] MEDS ORDERED: HEPARIN SODIUM,PORCINE 5,000 UNIT/ML 1 ML VIAL ONE (09:44)
[2023-11-12] MEDS ORDERED: PANTOPRAZOLE 40 MG/10 ML VIAL ONE (10:50)
--- NOTE | 2023-12-04 16:06 | CT ---
EXAM: CT Abdomen and Pelvis Without Intravenous Contrast CLINICAL HISTORY: colostomy bag, sob, abscess removed prior TECHNIQUE: Axial computed tomography images of the abdomen and pelvis without intravenous contrast. CTDI is 8.7 mGy and DLP is 521.5 mGy-cm. This CT exam was performed using one or more of the following dose reduction techniques: automated exposure control, adjustment of the mA and/or kV according to patient size, and/or use of iterative reconstruction technique. Coronal and sagittal reconstructions are performed. 482 images COMPARISON: No relevant prior studies available. FINDINGS: Lung bases:Unremarkable. No mass. No consolidation. ABDOMEN: Liver:Nathaniel's lobe of the liver. Gallbladder and bile ducts:Unremarkable. No calcified stones. No ductal dilation. Pancreas:Unremarkable. No ductal dilation. Spleen:Unremarkable. No splenomegaly. Adrenals:Unremarkable. No mass. Kidneys and ureters:Atrophic kidneys. Bilateral nonobstructing cortical stones measuring up to 6 mm. Small bilateral renal cysts. Some are hyperdense, likely hemorrhagic or proteinaceous. Largest is on the right, measuring about 23 mm. Stomach and bowel: Small bowel anastomosis in anterior central abdomen. Bowel anastomosis suture of faint right pelvis. Left pelvic ileostomy. Rectal suture. Mild dilatation of short segment of small bowel of right upper quadrant with questionable wall thickening, suggest ileus, related to enteritis. PELVIS: Appendix:Normal appendix. Bladder:Unremarkable. No stones. Reproductive:Cluster of left adnexal cysts. ABDOMEN and PELVIS: Intraperitoneal space:Unremarkable. No free air. No significant fluid collection. Bones/joints:No acute findings. Soft tissues: pelvic wall scars. Vasculature:Unremarkable. No abdominal aortic aneurysm. Lymph nodes:Unremarkable. No enlarged lymph nodes. Tubes, lines and devices:Bilateral femoral catheters. Right pelvic approaching pigtail catheter terminates in anterior central pelvis. IMPRESSION: Mild dilatation of short segment of small bowel of right upper quadrant with questionable wall thickening, suggest ileus and questionable enteritis. Radiologist: Baldomero Smith M.D. Electronically Signed: 11/05/23 07:02 Study ready at 04:26 and initial results transmitted at 07:02 [facility]
--- NOTE | 2023-12-05 15:52 | CDI ---
Documentation Clarification Form Date: 12/05/2023 03:43:55 PM From: Marilin Oshea Phone: Admit Date: 11/04/2023 02:23:00 PM Patient Name: Sincere Phelan Visit Number: [id number] Discharge Date: 11/05/2023 02:00:00 PM ATTENTION: The Clinical Documentation Specialists (CDI) and [facility] Coding Staff appreciate your assistance in clarifying documentation. Please respond to the clarification below the line at the bottom and electronically sign. The CDI & [facility] Coding staff will review the response and follow-up if needed. Please note: Queries are made part of the Legal Health Record. If you have any questions, please contact the author of this message via ITS. Doctor/Provider: Jamel Urbano Your patient has diagnostic/radiology results: suggested ileus, related to enteritis. Please clarify if there is an additional diagnosis and/or clinical significance related to this result. History/Risk Factors: 43yo F, sepsis, shock/hypotension, dehydration, ESRD, colostomy, former smoker Clinical indicators: Left pelvic ileostomy. Rectal suture. Mild dilatation of short segment of small bowel of right upper quadrant with questionable wall thickening Treatment: Antibiotics, Pt has multi allergies. IV bolus; Pt and refused transfer back to [facility] where previous Sx was completed. Is there an additional diagnosis and/or clinical significance related to the above diagnostic/radiology result? [ x ] Ileus, related to enteritis. [ ] Result is not clinically significant (no additional diagnosis) [ ] Other, please specify [ ] Unable to determine (Template Last Reviewed: May 2020) MTDD
--- NOTE | 2023-12-05 15:52 | CDI ---
Documentation Clarification Form Date: 12/05/2023 03:34:46 PM From: Marilin Oshea Phone: Admit Date: 11/04/2023 02:23:00 PM Patient Name: Sincere Phelan Visit Number: [id number] Discharge Date: 11/05/2023 02:00:00 PM ATTENTION: The Clinical Documentation Specialists (CDI) and [facility] Coding Staff appreciate your assistance in clarifying documentation. Please respond to the clarification below the line at the bottom and electronically sign. The CDI & [facility] Coding staff will review the response and follow-up if needed. Please note: Queries are made part of the Legal Health Record. If you have any questions, please contact the author of this message via ITS. Doctor/Provider: Jamel Urbano Shock is documented ED Note (page 2/2). Additional clarification regarding the type of shock is requested. Patient history/risk factors: 43yo F, sepsis, dehydration, ESRD, colostomy, former smoker Clinical Indicators: Left pelvic ileostomy. Rectal suture. Milddilatationof short segment of small bowel of right upper quadrant with questionable wallthickening, suggestileus, related toenteritis. Treatment: CVC vasopressor, IV bolus Please clarify the type of shock, if known: [ x ] Septic Shock [ ] Hypovolemic Shock [ ] Other, please specify [ ] Unable to determine (Template Last Revised: May 2020) MTDD
--- NOTE | 2023-12-16 08:22 | CT ---
EXAM: CT chest abdomen pelvis with contrast. INDICATION: Patient age:LUPE AVENDAOÑ : 1980 Reason for study: Dialysis, dizziness, syncope CTDI 19.1, DLP 18.216 ISO 300 100 ml COMPARISON: None, please note PACS downtime occurred during the radiologist interpretation of these i mages with limited priors/reports.. TECHNIQUE: CT with axial imaging and sagittal and coronal reformats following the administration of ISO 300 100 ml IV contrast material.. One or more CT dose reduction strategies were utilized during this examinat ion. Total DLP administered was 216 mGycm. FINDINGS: LUNGS/ PLEURA: The lung parenchyma appears unremarkable. No evidence for focal consolidation, pneumot horax or pleural effusion. AIRWAY: Patent and unremarkable.. HEART: Size within normal limits. Mild atherosclerosis of the arterial vasculature. MEDIASTINUM: No gross evidence of adenopathy. VASCULATURE: No aortic aneurysm. Left central venous catheter tip terminating in the superior vena c merry/superior cavoatrial junction. MUSCULOSKELETAL: No acute osseous abnormalities. SOFT TISSUES/LYMPH NODES: Unremarkable. LOWER NECK: No significant findings. ABDOMEN LIVER: Unremarkable GALLBLADDER AND BILE DUCTS: Unremarkable. PANCREAS: Unremarkable. SPLEEN: Unremarkable. ADRENAL GLANDS: Unremarkable. KIDNEYS AND URETERS: Atrophic king salmon kidneys. Bilateral nonobstructing calculi/renal cortical cysts c alcifications. No evidence of hydronephrosis or renal calculus. The ureters are unremarkable. PELVIS BLADDER: Unremarkable REPRODUCTIVE: Ovarian cysts bilaterally. Heterogenous appearance of the uterus. Fluid within the cerv ical canal suggested. ABDOMEN & PELVIS STOMACH AND BOWEL: Stomach and duodenum are unremarkable. No evidence of bowel obstruction. The appe ndix is normal. PERITONEUM: Peritoneal tubing terminates in the lower abdomen. There is minimal free fluid in the abd omen. There is a possible fluid collection near the drainage catheter near the anterior abdominal wal l focus of gas measuring 2.5 x 0.8 x 4.5 cm. Multiple loops of bowel immediately adjacent to this in the anterior abdomen. VASCULATURE: No evidence of aortic aneurysm. MUSCULOSKELETAL: No acute osseous abnormalities LYMPH NODES: No gross evidence for lymphadenopathy. SOFT TISSUE/ABDOMINAL WALL: Left lower quadrant ostomy is present. No evidence for obstruction. 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 IMPRESSION: 1. Possible fluid collection near the anterior abdominal wall 2.5 x 0.8 x 4.5 cm. Unclear if this is bowel with some fluid versus organizing fluid collection. Which is hard to differentiate 2 multiple lucent bone anterior abdomen. 2. Left lower quadrant ostomy is present. No evidence for bowel obstruction. As parastomal hernia co ntaining fat and loops of bowel. 3. Bilateral ovarian cysts. 4. Atrophic king salmon kidneys with renal cortical cysts versus nonobstructing calcifications. 5. No evidence for acute process or pneumothorax. 6. Central venous catheter with tip in appropriate position. Called findings to DR amaro 643pm 11/04/2023 [facility], , 12/16/2023 8:20 AM
--- NOTE | 2023-12-23 15:58 | PN ---
PROGRESS NOTE LOCATION: 625. REASON FOR FOLLOWUP: Possible intraabdominal abscess. INTERVAL HISTORY: The patient is afebrile. The patient is feeling better. The patient is hemodynamically stable. The patient has stabilized. The patient denies having any chest pain, shortness of breath, or cough. No nausea, vomiting. No abdominal pain. Still has output in her drainage catheter which has been there for more than 6 weeks. PHYSICAL EXAMINATION: VITAL SIGNS: Blood pressure 114/71 with a pulse of 77, temperature of 98, she is 95% on room air. GENERAL DESCRIPTION: This is a middle-aged female, lying in bed, in no distress. RESPIRATORY SYSTEM: Unlabored breathing. Clear to auscultation anteriorly. HEART: S1, S2. Regular rate and rhythm. ABDOMEN: Soft, no tenderness. Did have some purulent drainage in the FRANCESCA drain. EXTREMITIES: No edema in the feet. DIAGNOSTIC IMPRESSION AND PLAN: The patient with admission to hospital with weakness, hypertension, concerning for sepsis. Did have abnormal CT concerning for collection, concerning for an abscess, unfortunately could not be drained as the patient has been waiting for transfer to [facility] in 5 days. Seemed to be frustrated and wants to go home. Case has been discussed in detail with the , the patient as well as the admitting physician. She has been given oral Ceftin and Flagyl. If she tolerates, she is able to go home. However, has been advised if any development of fever, weakness, low blood pressure to come back to hospital right away and has been told to follow up with surgeon as soon as possible instead of waiting for 11/24. The patient and the verbalized understanding. Questions and concerns were answered. MMODL / IJN: [id number] /
--- NOTE | 2023-12-26 14:39 | PN ---
PROGRESS NOTE REASON FOR FOLLOWUP: Sepsis, possible intraabdominal abscess. INTERVAL HISTORY: The patient is afebrile. The patient is currently breathing comfortably. No chest pain, shortness of breath, or cough. No nausea, vomiting. No abdominal pain. Did have output in her ileostomy. The patient seems to be slightly frustrated and still waiting for transfer to [place]. PHYSICAL EXAMINATION: VITAL SIGNS: Blood pressure 127/80, pulse of 79, temperature 98, she is 98% on room air. GENERAL DESCRIPTION: The patient is a middle-aged female, lying in bed, in no distress. RESPIRATORY SYSTEM: Unlabored breathing. Clear to auscultation anteriorly. HEART: S1, S2. Regular rate and rhythm. ABDOMEN: Soft. No tenderness. EXTREMITIES: No edema in the feet. DIAGNOSTIC IMPRESSION AND PLAN: The patient presented to hospital with possible sepsis. Concern for possible intraabdominal source and did have abnormal CT concerning for fluid collection, possible abscess. Currently waiting for transfer to [place]. The patient, at this point, . MMODL / IJN: [id number] /
--- NOTE | 2023-12-27 14:22 | PN ---
PROGRESS NOTE DATE OF SERVICE: 11/10/2023 LOCATION: [facility]. REASON FOR FOLLOWUP: Sepsis, possible intraabdominal abscess. INTERVAL HISTORY: The patient denies having any fever or any chills. The patient mentioned feeling slightly better, not feeling as weak as she was. Denies having any nausea, no vomiting. Abdominal pain is currently controlled. No chest pain, shortness of breath, or cough. PHYSICAL EXAMINATION: VITAL SIGNS: Blood pressure 102/70 with a pulse of 80, temperature 98. GENERAL DESCRIPTION: This is a middle-aged female, lying in bed, in no distress. RESPIRATORY SYSTEM: Unlabored breathing. Clear to auscultation anteriorly. HEART: S1 and S2. Regular rate. ABDOMEN: Soft, no tenderness. No guarding or rigidity. LABORATORY DATA: Cultures currently pending. DIAGNOSTIC IMPRESSION AND PLAN: The patient admitted to hospital with weakness, abscess, concerning for possible intraabdominal abscess in this patient who did have a complicated history with recent surgery at [place]. Currently waiting for transfer to [place]. Continue with Azactam and vancomycin because of her allergies. at the bedside. Questions were answered. MMODL / IJN: [id number] /
== END 2023-11-12 14:00 | disposition home or self-care (01) | DRG 720 ==
LOC: 2SICU 14:23 → UNDODISIN 11-05 14:00
PROVIDERS: ADMIT Internal Medicine; ATTEND Internal Medicine
PROC: 30243N1 Transfusion of Nonautologous Red Blood Cells into Central Vein, Percutaneous Approach (ICD-10-PCS; principal; 2023-11-04)
PROC: 5A1D70Z Performance of Urinary Filtration, Intermittent, Less than 6 Hours Per Day (ICD-10-PCS; 2023-11-04)
PROC: 02HV33Z Insertion of Infusion Device into Superior Vena Cava, Percutaneous Approach (ICD-10-PCS; 2023-11-04)
PROC: 3E043XZ Introduction of Vasopressor into Central Vein, Percutaneous Approach (ICD-10-PCS; 2023-11-04)
PROC: 06HY33Z Insertion of Infusion Device into Lower Vein, Percutaneous Approach (ICD-10-PCS; 2023-11-04)
DX: A41.9 Sepsis, unspecified organism (principal); R65.21 Severe sepsis with septic shock; N18.6 End stage renal disease; K56.7 Ileus, unspecified; Z93.3 Colostomy status; I10 Essential (primary) hypertension; K52.9 Noninfective gastroenteritis and colitis, unspecified; E86.0 Dehydration; Z87.11 Personal history of peptic ulcer disease; Z79.899 Other long term (current) drug therapy; Z91.048 Other nonmedicinal substance allergy status; Z88.1 Allergy status to other antibiotic agents; Z88.7 Allergy status to serum and vaccine; Z87.891 Personal history of nicotine dependence
CPT/HCPCS: 71045; 71260; 74176; 74177; 80048; 80053; 80202; 82728; 83540; 83550; 83605; 83735; 84100; 84484; 85025; 85610; 85730; 86140; 86850; 86900; 86901; 86920; 87040; 93005; 99285

== ENCOUNTER 2024-04-24 14:20 | Inpatient (IN) | payer BC ==
[2024-04-24] MEDS ORDERED: NALOXONE 0.4 MG/ML 1 ML VIAL IV PRN (14:43)
--- NOTE | 2024-04-24 14:51 | ED ---
General Adult HPI - General Chief complaint: Recheck/Abnormal Lab/Rx Stated complaint: port issue Time Seen by Provider: 04/24/24 14:38 Source: EMS Mode of arrival: EMS Limitations: no limitations - History of Present Illness Initial comments: Dictation was produced using Narrable dictation software. please excuse any grammatical, word or spelling errors. Chief Complaint: 43-year-old female presents with malfunctioning HD catheter History of Present Illness: Patient is a 43-year-old female with ESRD she has indwelling left chest percutaneous catheter. She gets dialysis Saturday. Had full dialysis on Saturday and Saturday. Today she went to dialysis and they were unable to troubleshoot patient's HD catheter. She was sent to the emergency department. Patient states she felt a little jittery earlier but her symptoms had resolved. Denies any pain complaints. Patient is scheduled to have fistula surgery and percutaneous catheter placement with Dr. Rodriguez. The ROS documented in this emergency department record has been reviewed and confirmed by me. Those systems with pertinent positive or negative responses have been documented in the HPI. All other systems are other negative and/or noncontributory. - Related Data Home Medications Medication Instructions Recorded Confirmed Sucroferric Oxyhydroxide [Velphoro] 1,000 mg PO TID-W/MEALS 05/26/23 09/04/23 hydrALAZINE HCL [Apresoline] 100 mg PO TID 05/26/23 09/04/23 lisinopriL [Zestril] 20 mg PO BID 05/26/23 09/04/23 Darbepoetin Shahram [Aranesp] 40 mcg SQ MO 06/03/23 09/04/23 Metoprolol Tartrate [Lopressor] 50 mg PO BID 09/04/23 09/04/23 Virt-Caps 1 cap PO DAILY 09/04/23 09/04/23 tiZANidine [Zanaflex] 4 mg PO HS 09/04/23 09/04/23 Previous Rx's Medication Instructions Recorded Famotidine [Pepcid] 20 mg PO DAILY #30 tablet 11/23/22 amLODIPine [Norvasc] 10 mg PO DAILY #30 tab 12/07/22 cloNIDine HCL [Catapres] 0.1 mg PO TID #90 tab 12/07/22 Acetaminophen Tab [Tylenol] 1,000 mg PO Q6HR PRN #30 tablet 05/24/23 cefuroxime axetiL [Cefuroxime] 500 mg PO DAILY #10 tab 09/08/23 metroNIDAZOLE [Flagyl] 500 mg PO TID #30 tab 09/08/23 Allergies Allergy/AdvReac Type Severity Reaction Status Date / Time cefazolin [From Ancef] Allergy Anaphylaxis Verified 04/24/24 14:32 piperacillin [From Zosyn] Allergy Anaphylaxis Verified 04/24/24 14:32 tazobactam [From Zosyn] Allergy Anaphylaxis Verified 04/24/24 14:32 iron AdvReac Severe Nausea & Verified 04/24/24 14:31 Vomiting & Diarrhea ciprofloxacin [From Cipro] AdvReac UNCONTROLLABLE Verified 04/24/24 14:31 EMOTIONS PER PT Pertussis Vaccines AdvReac seizures Verified 04/24/24 14:31 Review of Systems ROS Statement: Those systems with pertinent positive or pertinent negative responses have been documented in the HPI. ROS Other: All systems not noted in ROS Statement are negative. 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 none since then, SWOLLEN OPTICAL NERVE & RETINA, STATES VISION BLURRED AT TIMES, PSEUDO TUMOR BRAIN, HX GOUT, ANEMIA, KIDNEY FAILURE-HAS DIALYSIS fistula LUE for HEMODIALYSIS [id number] FSGS (FOCAL SEGMENTAL GLOMERULOSCLEROSIS), COLITIS, DIVERTICULITIS, BLEEDING GASTRIC ULCER, colostomy History of Any Multi-Drug Resistant Organisms: None Reported Past Surgical History: Bowel Resection, Section, Cholecystectomy Additional Past Surgical History / Comment(s): peritoneal dialysis catheter and removal, Fistual LUE., sigmoid colectomy with colostomy, percutaneous cholecystostomy tube insertion and removal, lysis of adhesions Past Anesthesia/Blood Transfusion Reactions: No Reported Reaction Past Psychological History: Anxiety Smoking Status: Former smoker Past Alcohol Use History: None Reported, Occasional Past Drug Use History: Marijuana - Past Family History Father Family Medical History: Myocardial Infarction ([place]) Additional Family Medical History / Comment(s): FATHER AT AGE 35 OF MASSIVE HEART ATTACK Mother Family Medical History: Cancer, Deep Vein Thrombosis (DVT) Additional Family Medical History / Comment(s): SKIN CANCER General Exam - General Exam Comments Initial Comments: PHYSICAL EXAM: General Impression: Alert and oriented x3, not in acute distress HEENT: Normocephalic atraumatic, extra-ocular movements intact, pupils equal and reactive to light bilaterally, mucous membranes moist. Cardiovascular: Heart regular rate and rhythm Chest: Able to complete full sentences, no retractions, no tachypnea Abdomen: abdomen soft, non-tender, non-distended, no organomegaly Musculoskeletal: Pulses present and equal in all extremities, no peripheral edema Motor: no focal deficits noted Neurological: CN II-XII grossly intact, no focal motor or sensory deficits noted Skin: Intact with no visualized rashes Psych: Normal affect and mood Limitations: no limitations Course Vital Signs 04/24/24 14:25 Temperature 97.9 F Pulse Rate 94 Respiratory 20 Rate Blood Pressure 97/56 O2 Sat by Pulse 96 Oximetry EKG Findings - EKG Comments: EKG Findings:: My EKG interpretation: Ventricular rate 82, sinus rhythm,. 04/01/1955, QRS 102, QTc 4 9. No MT prolongation, no QTC prolongation, no ST or T- wave changes noted. Overall, this EKG is unremarkable Medical Decision Making - Medical Decision Making Was pt. sent in by a medical professional or institution (, PA, RECORDS AND TAPE RECORDINGS ENGINEER, urgent care, hospital, or usp...) When possible be specific @ -Sent from dialysis center Did you speak to anyone other than the patient for history (EMS, parent, family, police, friend...)? What history was obtained from this source @ -No Did you review nursing and triage notes (agree or disagree)? Why? @ -I reviewed and agree with nursing and triage notes Were old charts reviewed (outside hosp., previous admission, EMS record, old EKG, old radiological studies, urgent care reports/EKG's, usp records)? Report findings @ -No old charts were reviewed Differential Diagnosis (chest pain, altered mental status, abdominal pain women, abdominal pain men, vaginal bleeding, musculoskeletal, weakness, fever, dyspnea, syncope, headache, dizziness, GI bleed, back pain, seizure, CVA, palpatations, mental health)? @ -Malfunction HD cath, HD obstruction, hyperkalemia EKG interpreted by me (3pts min.). @ -See above X-rays interpreted by me (1pt min.). @ -None done CT interpreted by me (1pt min.). @ -None done U/S interpreted by me (1pt. min.). @ -None done What testing was considered but not performed or refused? (CT, X-rays, U/S, labs)? Why? @ -None What meds were considered but not given or refused? Why? @ -None Was smoking cessation discussed for >3mins.? @ -No Were there social determinants of health that impacted care today? How? (Homelessness, low income, unemployed, alcoholism, drug addiction, transportation, low edu. Level, literacy, decrease access to med. care, custodial, rehab)? @ -No Was there de-escalation of care discussed even if they declined (Discuss DNR or withdrawal of care, Hospice)? DNR status @ -No What co-morbidities impacted this encounter? (DM, HTN, Smoking, COPD, CAD, Cancer, CVA, ARF, Chemo, Hep., AIDS, mental health diagnosis, sleep apnea, morbid obesity)? @ -None Was patient admitted / discharged? Hospital course, mention meds given and route, prescriptions, significant lab abnormalities, going to OR and other pertinent info. @ -43-year-old female presents to the emergency department for malfunctioning HD catheter. Vital signs upon arrival are within acceptable limits. Patient will be admitted consultation to vascular surgery and nephrology. Pending lab studies for further evaluation Did you discuss the management of the patient with other professionals (professionals i.e. , PA, RECORDS AND TAPE RECORDINGS ENGINEER, lab, RT, psych nurse, manager social services, jig grinder set up operator, teacher, contracts officer, case checker)? Give summary @ -Case discussed with hospitalist for admission Was critical care preformed (if so, how long)? @ -No Undiagnosed new problem with uncertain prognosis? @ -No Drug Therapy requiring intensive monitoring for toxicity (Heparin, Nitro, Insulin, Cardizem)? @ -No Were any procedures done? @ -No Diagnosis/symptom? Acute, or Chronic, or Acute on Chronic? Uncomplicated (without systemic symptoms) or Complicated (systemic symptoms)? @ -Malfunctioning hemodialysis catheter Side effects of treatment? @ -No Exacerbation, Progression, or Severe Exacerbation? @ -No Poses a threat to life or bodily function? How? (Chest pain, [place], [place], pneumonia, PE, COPD, DKA, ARF, appy, cholecystitis, CVA, Diverticulitis, Homicidal, Suicidal, threat to staff... and all critical care pts) @ -yes Disposition Clinical Impression: Hemodialysis catheter malfunction Disposition: ADMITTED IP TO THIS HOSP Condition: Fair Referrals: Alia Keita MD [Primary Care Provider] - 1-2 days Decision Time: 14:51
[2024-04-24 15:08] LABS: Anisocytosis Slight; Basophils # (A) 0.1 k/uL (0-0.2); Basophils % (A) 1 %; Eosinophils # (A) 0.1 k/uL (0-0.7); Eosinophils % (A) 1 %; HCT 31.8 % (34.0-46.0); HGB 10.5 gm/dL (11.4-16.0); Lymphocytes # (A) 2.3 k/uL (1.0-4.8); Lymphocytes % (A) 22 %; MCH 39.7 pg (25.0-35.0); MCHC 33.2 g/dL (31.0-37.0); MCV 119.7 fL (80.0-100.0); Macrocytosis Marked; Mean Platelet Volume 7.9; Monocytes # (A) 0.3 k/uL (0-1.0); Monocytes % (A) 3 %; Neutrophils # (A) 7.7 k/uL (1.3-7.7); Neutrophils % (A) 72 %; Platelet Count 189 k/uL (150-450); RBC 2.66 m/uL (3.80-5.40); RDW 17.5 % (11.5-15.5); WBC 10.6 k/uL (3.8-10.6)
[2024-04-24 15:16] LABS: INR 1.1 (<1.2); Partial Thromboplastin Time 28.1 sec (22.0-30.0); Prothrombin Time 11.6 sec (10.0-12.5)
[2024-04-24 15:45] LABS: Anion Gap 18 mmol/L; Blood Urea Nitrogen 87 mg/dL (7-17); Calcium 8.8 mg/dL (8.4-10.2); Carbon Dioxide 26 mmol/L (22-30); Chloride 85 mmol/L (98-107); Glucose 91 mg/dL (74-99); Sodium 129 mmol/L (137-145)
[2024-04-24 15:46] LABS: Polychromasia Present
[2024-04-24 15:47] LABS: Large Platelets Present
[2024-04-24 15:51] LABS: African American GFR (CKD) 4 (>60 ml/min/1.73 sqM); Non-African American GFR(CKD) 4 (>60 ml/min/1.73 sqM)
[2024-04-24] MEDS: SODIUM CHLORIDE 0.9% 1,000 ML IV SCH (16:35)
[2024-04-24 16:54] LABS: Potassium 6.3 mmol/L (3.5-5.1)
[2024-04-24 17:49] LABS: Glucose,Whole Blood 72 mg/dL (70-110)
[2024-04-24] MEDS: INSULIN REGULAR 100 UNIT/ML VIAL (IV) IV ONE (17:49)
[2024-04-24] MEDS: DEXTROSE 50% SYRINGE 50 ML IVP ONE (17:49)
[2024-04-24] MEDS: SODIUM BICARB 8.4% 50 ML SYR (1 MEQ/ML) IV ONE (17:52)
[2024-04-24] MEDS: CALCIUM GLUCONATE IN NACL 1 GM in SALINE 1 100ML.BAG IVPB ONE (17:55)
[2024-04-24] MEDS: SODIUM ZIRCONIUM CYCLOSILICATE 10 GM PACKET PO ONE (18:00)
[2024-04-24 18:23] LABS: Glucose,Whole Blood 156 mg/dL (70-110)
[2024-04-24] MEDS: ALBUTEROL NEB (CONC) 2.5 MG/0.5 ML INHALATION ONE (19:23)
[2024-04-24] MEDS: ALTEPLASE 2 MG VIAL (CATHFLO) IV STA (19:50)
[2024-04-24] MEDS: SODIUM ZIRCONIUM CYCLOSILICATE 10 GM PACKET PO SCH (21:51)
--- NOTE | 2024-04-24 23:39 | HP ---
HISTORY AND PHYSICAL CHIEF COMPLAINT: Nonfunctioning dialysis catheter. HISTORY OF PRESENT ILLNESS: This is a 43-year-old woman with a past medical history of multiple medical problems including end-stage renal disease, on hemodialysis. She had a dialysis catheter inserted on the left chest. The catheter was malfunctioning. Dialysis could not be done today and the patient was taken to [facility], admitted for further evaluation and treatment. Potassium was elevated. There is no history of any fever, rigors, or chills at this time. The patient had scheduled to have fistula surgery by Vascular Surgery at this time. PAST MEDICAL HISTORY: Reviewed include end-stage renal disease, hypertension, seizure disorder. Rest of the history and rest of the chart is also reviewed. HOME MEDICATIONS: Reviewed include Imodium, dose and rest of medications reviewed. ALLERGIES: Cefazolin. FAMILY HISTORY: History of myocardial infarction. SOCIAL HISTORY: Previous history of smoking. REVIEW OF SYSTEMS: A 14 point review of systems is negative except as mentioned earlier. PHYSICAL EXAMINATION: VITAL SIGNS: Pulse is 94, blood pressure 97/56, respirations 20. HEENT: Conjunctivae normal. NECK: No JVD. CARDIOVASCULAR: S1, S2. RESPIRATIONS: Breath sounds diminished at the bases. ABDOMEN: Soft. LEGS: No edema. NERVOUS SYSTEM: Nonfocal. LABORATORY DATA: Hemoglobin 10.5. ASSESSMENT: 1. End-stage renal disease, on hemodialysis with nonfunctioning permanent dialysis catheter. 2. Anemia. 3. Hyperkalemia. 4. Hypertension. 5. History of seizure disorder. RECOMMENDATIONS AND DISCUSSION: In this 43-year-old woman who presented with multiple complex medical issues, we will monitor the patient closely. Continue the current medications, continue symptomatic treatment. Otherwise, at this time, I would recommend Vascular Surgery consultation. Otherwise, guarded prognosis because of multiple complex medical issues. Further recommendations to follow. See orders for further details. The patient had open thrombectomy from AV graft previously. See orders for further details. MMODL / IJN: [id number] /
[2024-04-25] MEDS ORDERED: LOPERAMIDE 2 MG CAP PO PRN (08:47)
[2024-04-25] MEDS: ACETAMINOPHEN TAB 325 MG TAB PO PRN (10:24)
[2024-04-25] MEDS: DOXYCYCLINE 100 MG CAP PO SCH (10:24)
[2024-04-25] MEDS: FAMOTIDINE 20 MG TAB PO SCH (12:32)
[2024-04-25] MEDS: FOLIC ACID-VIT B COMPLEX-VIT C 1 CAP PO SCH (12:32)
[2024-04-25] MEDS: SEVELAMER 800 MG TAB PO SCH (12:32)
[2024-04-25] MEDS: LIDOCAINE 1% INJ 10MG/ML (20 ML MDV) SQ ONE (13:32)
[2024-04-25] MEDS: CLINDAMYCIN 600 MG in DEXTROSE 5% IN WATER 50 ML IVPB STA (13:40)
--- NOTE | 2024-04-25 14:19 | P.NPCON ---
History of Present Illness - Reason for Consult Consult date: 04/25/24 end stage renal disease - Chief Complaint Malfucnitoning HD catheter - History of Present Illness Patient is a 43-year-old female presents with malfunctioning HD catheter. Typically goes to HD MW. Unable to run yesterday due to catheter malfunciton and referred to ED for evaluation. Patient is scheduled to have fistula surgery and percutaneous catheter placement with Dr. Rodriguez. Still not flushing well today and planning for Permcath exchange this afternoon. Vital signs are stable. General: No acute distress. HEENT: Head exam is unremarkable. LUNGS: No audible rhonchi or wheezes. HEART: Rate and Rhythm are regular. ABDOMEN: Colostomy noted. Mild generalized tenderness. EXTREMITITES: No edema. 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 none since then, SWOLLEN OPTICAL NERVE & RETINA, STATES VISION BLURRED AT TIMES, PSEUDO TUMOR BRAIN, HX GOUT, ANEMIA, KIDNEY FAILURE-HAS DIALYSIS fistula for HEMODIALYSIS -SAT-SAT- last tx was saturday blockage today 04/24/24 left lower loop -HX FSGS (FOCAL SEGMENTAL GLOMERULOSCLEROSIS), COLITIS, DIVERTICULITIS, BLEEDING GASTRIC ULCER, colostomy left side w/ abd open wound 04/24/24 History of Any Multi-Drug Resistant Organisms: None Reported Past Surgical History: Bowel Resection, Section, Cholecystectomy Additional Past Surgical History / Comment(s): peritoneal dialysis catheter and removal, sigmoid colectomy with colostomy, percutaneous cholecystostomy tube insertion and removal, lysis of adhesions Past Anesthesia/Blood Transfusion Reactions: No Reported Reaction Past Psychological History: Anxiety Additional Psychological History / Comment(s): CURRENT ANXIETY Smoking Status: Never smoker Past Alcohol Use History: None Reported, Occasional Additional Past Alcohol Use History / Comment(s): QUIT SMOKING 2001, SMOKED 1/2 PPD, SMOKED 3 YEARS. Past Drug Use History: Marijuana Additional Drug Use History / Comment(s): Gummies. for sleep and pain. Pt aware not to use 24 hrs before procedure - Past Family History Father Family Medical History: Myocardial Infarction ([place]) Additional Family Medical History / Comment(s): FATHER AT AGE 35 OF MASSIVE HEART ATTACK Mother Family Medical History: Cancer, Deep Vein Thrombosis (DVT) Additional Family Medical History / Comment(s): SKIN CANCER Medications and Allergies Home Medications Medication Instructions Recorded Confirmed Type tiZANidine [Zanaflex] 4 mg PO HS 09/04/23 04/24/24 History Doxycycline [Vibramycin] 100 mg PO BID 04/24/24 04/24/24 History Famotidine [Pepcid] 20 mg PO PC-LUNCH 04/24/24 04/24/24 History Folic Acid/Vit B Complex and C 0.8 mg PO PC-LUNCH 04/24/24 04/24/24 History [Nephro-Rafael Tablet] Loperamide HCl [Imodium A-D] 2 - 4 mg PO QID PRN 04/24/24 04/24/24 History Midodrine HCl [ProAmatine] 10 mg PO MOWEFR 04/24/24 04/24/24 History Sevelamer [Renvela] 800 mg PO AC-TID 04/24/24 04/24/24 History Allergies Allergy/AdvReac Type Severity Reaction Status Date / Time cefazolin [From Ancef] Allergy Anaphylaxis Verified 04/24/24 14:57 piperacillin [From Zosyn] Allergy Anaphylaxis Verified 04/24/24 14:57 tazobactam [From Zosyn] Allergy Anaphylaxis Verified 04/24/24 14:57 iron AdvReac Severe Nausea & Verified 04/24/24 14:57 Vomiting & Diarrhea ciprofloxacin [From Cipro] AdvReac UNCONTROLLABLE Verified 04/24/24 14:57 EMOTIONS PER PT Pertussis Vaccines AdvReac seizures Verified 04/24/24 14:57 Physical Exam Vitals: Vital Signs Temp Pulse Pulse Resp BP BP Pulse Ox 04/25/24 07:00 98.0 F 90 14 97/68 98 04/25/24 02:45 103 H 90/60 04/25/24 01:35 98.3 F 123 H 16 83/57 100 04/24/24 23:00 97.9 F 107 H 16 103/69 100 04/24/24 21:55 112 H 18 92/55 97 04/24/24 19:47 116 H 04/24/24 19:23 88 04/24/24 18:50 77 20 94/54 96 04/24/24 16:29 92 20 97/67 97 04/24/24 14:25 97.9 F 94 20 97/56 96 Intake and Output 04/24/24 04/25/24 04/25/24 22:59 06:59 14:59 Other: # Voids 1 # Bowel Movements 1 Weight 80.4 kg Results - Lab Results Most recent lab results Calcium 8.8 mg/dL (8.4-10.2) 04/24/24 15:01 04/24/24 15:01 04/24/24 20:34 Assessment and Plan Assessment: 1. End-stage renal disease maintained on hemodialysis on Saturday schedule. 2. Hypertension with chronic kidney disease. 3. HD catheter malfunction 4. Anemia of chronic kidney disease. Iron replete. On Aranesp. 5. Chronic kidney disease mineral bone disease maintained on Renvela. 6. Hyperkalemia improved with medical management Plan: Cathflo ordered Plan for Permcath exchange with vascular today HD planned today after exchange Clear for discharge after HD today
--- NOTE | 2024-04-25 14:41 | XR ---
EXAMINATION TYPE: XR chest 1V confirm line plcmt DATE OF EXAM: 04/25/2024 2:28 PM COMPARISON: Previous chest radiograph 06/03/2023. CLINICAL INDICATION: Female, 43 years old with history of CONFIRM HEMODIALYSIS CATHETER PLACEMENT; PH H TECHNIQUE: XR chest 1V confirm line plcmt Frontal view of the chest. FINDINGS: Lungs/Pleura: There is no evidence of pleural effusion, focal consolidation, or pneumothorax. Pulmonary vascularity: Unremarkable. Heart/mediastinum: Cardiomediastinal silhouette is unremarkable. Musculoskeletal: No acute osseous pathology. Other findings: None Lines/Tubes: Right chest wall dialysis catheter with distal catheter tip near the cavoatrial junction. IMPRESSION: 1. No acute cardiopulmonary disease/process. 2. Right chest wall dialysis catheter with distal catheter tip near the cavoatrial junction. [facility], , 04/25/2024 2:38 PM
--- NOTE | 2024-04-25 14:55 | P.OP ---
Date of Procedure: 04/25/24 Preoperative Diagnosis: Nonfunctioning tunneled hemodialysis catheter. Chronic kidney disease stage V. Postoperative Diagnosis: Same. Procedure(s) Performed: 1: Ultrasound and fluoroscopically guided placement of a tunneled hemodialysis catheter via the right internal jugular vein approach. 2: Removal of nonfunctional tunneled hemodialysis catheter. Anesthesia: local Surgeon: Tony Ziegler Estimated Blood Loss (ml): 10 Pathology: none sent Condition: stable Disposition: no change Indications for Procedure: Patient is a 43-year-old female with a history of dialysis dependent renal failure. She has a tunneled hemodialysis catheter which is nonfunctional. To allow for continued hemodialysis the patient was offered a new tunneled dialysis catheter. The procedure, risk and benefits were discussed. All questions were answered to patient's satisfaction. Description of Procedure: Patient was brought to the special procedure suite. Bilaterally the lateral neck supraclavicular and anterior chest wall areas were sterilely prepped draped in usual manner. Utilizing ultrasound the right internal jugular vein was identified. This was fully compressible and the tissues overlying the vein were localized with 1% Xylocaine. With the aid of ultrasound and through the anesthetized area a micropuncture needle was utilized to cannulate the vein. Once cannulated soft a guidewire was advanced into the superior vena cava and position was confirmed with fluoroscopy. The needle was withdrawn and a micropuncture sheath and dilator advanced over the guidewire. Guidewire and dilator were withdrawn and a 0.035 inch J-tip braided guidewire was advanced in the superior vena cava. Once again position was confirmed with fluoroscopy. Just inferior and lateral to the angle of the clavicle on the right 1% Xylocaine was utilized for local anesthesia. Additional Xylocaine was placed in the subcutaneous tissues between the neck wound and the anterior chest wound. Skin incision was made in the chest area and a 19 cm length palindrome tight he modialysis catheter was tunneled between the chest and neck incisions. Over the guidewire vessel dilators were advanced and withdrawn and finally the dialysis catheter sheath and dilator advanced over the guidewire. Guidewire and dilator were withdrawn and through the sheath the catheter was advanced into the superior vena cava. The sheath was peeled away. Catheter was pulled back a slight amount and fluoroscopy demonstrated the catheter to be in good position. Both limbs of the dialysis catheter were flushed with heparinized saline solution after blood was easily aspirated via both limbs of the catheter. Caps were placed on the catheter and the catheter was secured to the anterior chest wall with nylon suture. The neck wound was closed with 4-0 Monocryl. Appropriate dressings were applied. Attention was turned to the previously placed tunneled dialysis catheter. The cuff of the catheter was identified and 1% Xylocaine was utilized for local anesthesia overlying this area. Through this anesthetized area skin incision was made carried down through subcutaneous tissues. The catheter was identified grasped and elevated and operative view. The soft tissue ingrowth was from the cuff of the catheter. The catheter was transected and both ends removed in their entirety. The wound was then closed with 4-0 Monocryl suture. Appropriate dressing was applied. Patient tolerated procedure well. She was taken to room in satisfactory and stable condition. Chest x-ray will be obtained to rule out the possibility of pneumothorax and confirm placement of the catheter.
[2024-04-25] MEDS: MIDODRINE 5 MG TAB PO PRN (15:30)
[2024-04-25 15:34] VITALS: TEMP 97.7
--- NOTE | 2024-04-25 18:17 | IR ---
EXAMINATION TYPE: IR cvc insert central tunneled DATE OF EXAM: 04/25/2024 COMPARISON: Pre Operative Images if available both CT/MRI or plain film CLINICAL INDICATION: Female, 43 year old with history of hemodialysis catheter insertion. TECHNIQUE: IR cvc insert central tunneled, multiple fluoroscopic images provided for procedure. Total fluoroscopy time: 0.5 minutes Total submitted images to PACS: 33 DAP: 0.179 mGym2 Gycm2 uGym2 cGycm2 or equivalent. FINDINGS: Fluoroscopic imaging for Port-A-Cath insertion. No evidence for pneumothorax. IMPRESSION: 1. No evidence for intraoperative complication. 2. Please see the operative/procedural note for further details. [facility], , 04/25/2024 6:15 PM
[2024-04-25 19:04] VITALS: BP 1032/62; PULSE 84; RESP 16
[2024-04-25] MEDS ORDERED: tiZANidine 4 MG TAB PO SCH (21:00)
--- NOTE | 2024-04-26 06:54 | DS ---
DISCHARGE SUMMARY FINAL DIAGNOSES: 1. Nonfunctioning dialysis catheter and replacement on the right side by Dr. Ziegler. 2. End-stage renal disease, on hemodialysis. 3. Anemia. 4. Hyperkalemia, improved. DISCHARGE DISPOSITION: The patient will be discharged in stable condition and guarded prognosis. HISTORY OF PRESENT ILLNESS: This is a 43-year-old woman with nonfunctioning catheter and cath flow was not working and Dr. Ziegler performed replacement and tunneled catheter on the right IJ approach. The patient is able to be dialyzed. Subsequently, the patient will be discharged with recommendations to follow up with primary physician, Dr. Keita and Nephrology. To continue current medications. MMODL / IJN: [id number] /
--- NOTE | 2024-04-26 08:30 | PN ---
PROGRESS NOTE DATE OF SERVICE: 04/25/2024 SUBJECTIVE: This is a 43-year-old woman who was admitted with catheter malfunction, is scheduled to have dialysis and surgical evaluation by Dr. Ziegler. Because of malfunctioning, a new dialysis catheter has been inserted and patient also has hyperkalemia. Patient being closely monitored at this time. Apparently, there were some issues. Please refer to the staff notes for further information. Capsule has been also all ordered as well. PAST MEDICAL HISTORY: Reviewed. REVIEW OF SYSTEM: Fourteen-point review of systems is negative except as mentioned earlier. CURRENT MEDICATIONS: Reviewed. PHYSICAL EXAM: VITAL SIGNS: Pulse is 103, blood pressure 90/60, respirations 14. CHEST: Clear to auscultation. CARDIOVASCULAR: S1, S2. ABDOMEN: Soft. NERVOUS SYSTEM: Nonfocal LABORATORY DATA: Potassium 4.5, hemoglobin 10.5. ASSESSMENT: 1. End-stage renal disease, on hemodialysis with nonfunctioning permanent dialysis catheter. 2. Anemia. 3. Hyperkalemia. 4. Hypertension. 5. History of seizure disorder. RECOMMENDATIONS: Recommend to continue current medications. Otherwise, permanent dialysis catheter exchange today as mentioned earlier. Otherwise, monitor potassium closely. Low- potassium diet. Continue rest of medications, hemodialysis. Prognosis guarded. Further recommendations to follow. MMODL / IJN: [id number] /
== END 2024-04-25 19:54 | disposition home or self-care (01) | DRG 674 ==
LOC: EC 14:20 → 6NMEDSUR 14:45 → OBSVTOIN 14:45 → 6NMEDSUR 21:42 → UNDODISOB 04-25 19:54
PROVIDERS: ADMIT Hospitalist; ATTEND Hospitalist
PROC: 0JH63XZ Insertion of Tunneled Vascular Access Device into Chest Subcutaneous Tissue and Fascia, Percutaneous Approach (ICD-10-PCS; principal; 2024-04-25 13:00)
PROC: 05PY03Z Removal of Infusion Device from Upper Vein, Open Approach (ICD-10-PCS; principal; 2024-04-25 13:00)
PROC: 02HV33Z Insertion of Infusion Device into Superior Vena Cava, Percutaneous Approach (ICD-10-PCS; principal; 2024-04-25 13:00)
PROC: 5A1D70Z Performance of Urinary Filtration, Intermittent, Less than 6 Hours Per Day (ICD-10-PCS; 2024-04-25 13:00)
DX: T82.41XA Breakdown (mechanical) of vascular dialysis catheter, initial encounter (principal); I12.0 Hypertensive chronic kidney disease with stage 5 chronic kidney disease or end stage renal disease; N18.6 End stage renal disease; D63.1 Anemia in chronic kidney disease; Z99.2 Dependence on renal dialysis; G40.909 Epilepsy, unspecified, not intractable, without status epilepticus; F41.9 Anxiety disorder, unspecified; M10.9 Gout, unspecified; E83.9 Disorder of mineral metabolism, unspecified; Y71.2 Prosthetic and other implants, materials and accessory cardiovascular devices associated with adverse incidents; E87.5 Hyperkalemia; M89.8X9 Other specified disorders of bone, unspecified site; Z87.891 Personal history of nicotine dependence; Z88.1 Allergy status to other antibiotic agents; Z88.0 Allergy status to penicillin; Z88.7 Allergy status to serum and vaccine; Z88.8 Allergy status to other drugs, medicaments and biological substances; Z93.3 Colostomy status; Z87.11 Personal history of peptic ulcer disease; Z79.899 Other long term (current) drug therapy
CPT/HCPCS: 36415; 36558; 76937; 77001; 80048; 84132; 85025; 85610; 85730; 90935; 93005; 96374; 96375; 99285

== ENCOUNTER 2024-04-28 07:58 | Day surgery (SDC) | payer BC, OTHER ==
[~2024-04-28 07:58] MED LIST changes: +HYDROmorphone 0.5 MG/0.5 ML SYRINGE IVP PRN; +LACTATED RINGERS 1,000 ML IV SCH; -NOREPINEPHRINE 1 MG/ML 4 ML VIAL IV ONE; -ONDANSETRON 4 MG/2 ML VIAL ONE; -SODIUM CHLORIDE 0.9% 1,000 ML BAG ONE; -SODIUM CHLORIDE 0.9% 100 ML BAG ONE; -SODIUM CHLORIDE 0.9% 250 ML BAG ONE; -VANCOMYCIN 1,000 MG VIAL ONE; -VANCOMYCIN 500 MG VIAL ONE
[2024-04-28] MEDS: IV FLUID CONTINUATION 1,000 ML IV ONE (08:21)
[2024-04-28 08:43] VITALS: RESP 16; TEMP 96.8
[2024-04-28] MEDS: DEXAMETHASONE SOD PHOSPHATE 4 MG/ML 1 ML VIAL IV ONE (09:11)
[2024-04-28] MEDS: ONDANSETRON 4 MG/2 ML VIAL IVP ONE (09:11)
[2024-04-28 09:23] LABS: Anisocytosis Slight; Basophils # (A) 0.1 k/uL (0-0.2); Basophils % (A) 1 %; Eosinophils # (A) 0.4 k/uL (0-0.7); Eosinophils % (A) 4 %; HCT 38.1 % (34.0-46.0); HGB 12.5 gm/dL (11.4-16.0); Lymphocytes # (A) 2.2 k/uL (1.0-4.8); Lymphocytes % (A) 20 %; MCH 40.3 pg (25.0-35.0); MCHC 32.9 g/dL (31.0-37.0); MCV 122.6 fL (80.0-100.0); Macrocytosis Marked; Monocytes # (A) 0.3 k/uL (0-1.0); Monocytes % (A) 3 %; Neutrophils # (A) 8.1 k/uL (1.3-7.7); Neutrophils % (A) 72 %; Platelet Count 161 k/uL (150-450); RBC 3.11 m/uL (3.80-5.40); WBC 11.3 k/uL (3.8-10.6)
[2024-04-28 09:33] LABS: HCG,Qualitative Serum Not Detected
[2024-04-28] MEDS: MIDAZOLAM 2 MG/2 ML VIAL IV ONE (09:34)
[2024-04-28] MEDS: SODIUM CHLORIDE 0.9% 1,000 ML IV SCH (09:42)
--- NOTE | 2024-04-28 09:42 | P.ANPRN ---
Procedure Note - Anesthesia - Nerve Block Performed Left Supraclavicular Single Date of Procedure: 04/28/24 Procedure Start Time: 09:33 Procedure Stop Time: 09:39 Location of Patient: PreOp Indication: Acute Post-Operative Pain, Requested by Surgeon Sedation Type: Sedate with meaningful contact maintained Preparation: Sterile Prep Position: Sitting Catheter: None Needle Types: Pajunk Needle Gauge: 21 Ultrasound used to visualize needle placement: Yes Ultrasound used to observe medication spread: Yes Injectate: 0.5% Ropivacaine (see comment for volume) (20 ml) Blood Aspirated: No Pain Paresthesia on Injection Noted: No Resistance on Injection: Normal Image Stored and Saved: Yes Events: Uneventful and Well Tolerated
[2024-04-28 09:49] LABS: ALT 39 U/L (4-34); AST 57 U/L (14-36); Albumin 4.5 g/dL (3.5-5.0); Alkaline Phosphatase 121 U/L (38-126); Anion Gap 18 mmol/L; Blood Urea Nitrogen 47 mg/dL (7-17); Carbon Dioxide 30 mmol/L (22-30); Chloride 87 mmol/L (98-107); Glucose 90 mg/dL (74-99); Potassium 4.8 mmol/L (3.5-5.1); Sodium 135 mmol/L (137-145); Total Bilirubin 0.9 mg/dL (0.2-1.3); Total Protein 7.9 g/dL (6.3-8.2)
[2024-04-28 09:55] LABS: African American GFR (CKD) 8 (>60 ml/min/1.73 sqM); Non-African American GFR(CKD) 7 (>60 ml/min/1.73 sqM)
[2024-04-28] MEDS: VANCOMYCIN 1,250 MG in SODIUM CHLORIDE 0.9% 250 ML IVPB PRN (10:09)
[2024-04-28] MEDS ORDERED: ROPIVACAINE 5 MG/ML 30 ML VIAL ONE (11:09)
[2024-04-28] MEDS ORDERED: MIDAZOLAM 2 MG/2 ML VIAL ONE (11:09)
[2024-04-28] MEDS ORDERED: HEPARIN SODIUM,PORCINE 5,000 UNIT/ML 1 ML VIAL ONE (11:09)
[2024-04-28] MEDS ORDERED: fentaNYL (PF) 50 MCG/ML 2 ML AMP ONE (11:09)
[2024-04-28] MEDS: ceFAZolin 2 GM in SODIUM CHLORIDE 0.9% 500 ML 500 ML IRRIGATION ONE (11:33)
[2024-04-28] MEDS: HEPARIN SODIUM,PORCINE (1 ML) 2,000 UNIT in SODIUM CHLORIDE 0.9% 500 ML 500 ML IRRIGATION ONE (11:34)
--- NOTE | 2024-04-28 12:27 | P.OP ---
Date of Procedure: 04/28/24 Preoperative Diagnosis: End-stage renal disease Thrombosed left upper extremity loop AV graft Postoperative Diagnosis: Same Procedure(s) Performed: Left upper extremity brachiocephalic fistula creation Anesthesia: MAC Surgeon: Vazquez Rodriguez Estimated Blood Loss (ml): 10 Pathology: none sent Condition: stable Disposition: PACU Indications for Procedure: 43-year-old female with history of end-stage renal disease who previously had dialysis via left upper extremity loop AV graft had incident last year where she ended up in the hospital at [facility] and ultimately was in septic shock and her graft thrombosed at that time. It was not revascularized immediately and a tunnel catheter was placed. Upon evaluation in the office after she lost her insurance it had been 8 months since her graft had worked and therefore was not a candidate for thrombectomy. She had vein mapping that demonstrated good basilic vein and cephalic vein in the left upper extremity and therefore presents today for brachiocephalic fistula creation. Description of Procedure: After written and informed consent was obtained from the patient the patient was brought to the operative suite and laid in a supine position. The left arm was prepped and draped in the usual sterile fashion after appropriate anesthesia was performed per the anesthesiologist. Utilizing ultrasound the cephalic vein was visualized and marked and shown to be good size. A transverse incision was then created with a 15 blade scalpel just proximal to the elbow and dissection was carried down to the brachial artery which was dissected free in a circumferential manner. Proximal distal control was then obtained with vessel loops. Attention was then placed back to the cephalic vein which was located and dissected free in a circumferential manner distally to the elbow. At the elbow it was ligated with silk suture. Further dissection was carried around the vein and the vein was brought over to the brachial artery. Serial dilation was then performed on the vein and good backbleeding was noted. Patient was administered 3000 units of heparin and the brachial artery was clamped at the proximal and distal aspect. Utilizing 11 blade scalpel and arteriotomy was created and extended with Pott Otoole scissors. There was good brisk backbleeding noted from the brachial artery and pulsatile blood flow visualized from the proximal aspect. The vein was then spatulated and an end-to-side anastomosis was created with a 7-0 Prolene suture. Prior to last sutures being placed the control was released from the vein revealing good backbleeding and distal control on the brachial artery was released revealing good back flow. The proximal control was then released and good pulsatile blood flow was visualized in the fistula and final sutures were secured. The area was copiously irrigated with antibiotic solution. Hemostasis was assured. The vessels were then interrogated with Doppler which demonstrated good multiphasic signal distal to the anastomosis as well as positive bruit within the vein consistent with good fistula creation. Under ultrasound there was pulsatile flow noted in the cephalic vein. The incision was then closed in a multilayer fashion. The skin was cleansed and dressings were placed. Patient does procedure well and was sent to PACU for recovery. Plan - Discharge Summary Discharge Rx Participant: No New Discharge Prescriptions: No Action Loperamide HCl [Imodium A-D] 2 - 4 mg PO QID PRN PRN Reason: loose stools Doxycycline [Vibramycin] 100 mg PO BID Folic Acid/Vit B Complex and C [Nephro-Rafael Tablet] 0.8 mg PO PC-LUNCH tiZANidine [Zanaflex] 4 mg PO HS Famotidine [Pepcid] 20 mg PO PC-LUNCH Sevelamer [Renvela] 800 mg PO AC-TID Midodrine HCl [ProAmatine] 10 mg PO MOWEFR Discharge Medication List tiZANidine [Zanaflex] 4 mg PO HS 09/04/23 [History] Doxycycline [Vibramycin] 100 mg PO BID 04/24/24 [History] Famotidine [Pepcid] 20 mg PO PC-LUNCH 04/24/24 [History] Folic Acid/Vit B Complex and C [Nephro-Rafael Tablet] 0.8 mg PO PC-LUNCH 04/24/24 [History] Loperamide HCl [Imodium A-D] 2 - 4 mg PO QID PRN 04/24/24 [History] Midodrine HCl [ProAmatine] 10 mg PO MOWEFR 04/24/24 [History] Sevelamer [Renvela] 800 mg PO AC-TID 04/24/24 [History]
[2024-04-28 12:59] VITALS: BP 104/65; PULSE 87
== END 2024-04-28 13:37 | disposition home or self-care (01) ==
LOC: OR 07:58
PROVIDERS: ATTEND Surgery
DX: N18.6 End stage renal disease (principal); T82.868D Thrombosis due to vascular prosthetic devices, implants and grafts, subsequent encounter; Z99.2 Dependence on renal dialysis; G89.18 Other acute postprocedural pain; Z87.891 Personal history of nicotine dependence; I10 Essential (primary) hypertension; D63.1 Anemia in chronic kidney disease; Z88.1 Allergy status to other antibiotic agents
CPT/HCPCS: 81025; 64415; 80053; 85025; 84703; 36821; J2250; J3370; J1644; J1100; J0690; J2405

== ENCOUNTER 2024-07-28 13:41 | Inpatient (IN) | payer BC ==
[2024-07-28] MEDS ORDERED: NALOXONE 0.4 MG/ML 1 ML VIAL IV PRN (17:37)
[2024-07-28] MEDS ORDERED: LOPERAMIDE 2 MG CAP PO PRN (17:43)
[2024-07-28 18:57] LABS: Basophils # (A) 0.07 10*3/uL (0.00-0.10); Basophils % (A) 0.8 %; Eosinophils % (A) 1.2 %; HCT 23.3 % (37.2-46.3); HGB 7.9 g/dL (12.0-15.0); Lymphocytes # (A) 1.66 10*3/uL (0.90-5.00); Lymphocytes % (A) 19.9 %; MCH 39.3 pg (27.0-32.0); MCHC 33.9 g/dL (32.0-37.0); MCV 115.9 fL (80.0-97.0); Mean Platelet Volume 9.9 fL (9.5-12.2); Monocytes # (A) 0.49 10*3/uL (0.20-1.00); Monocytes % (A) 5.9 %; Neutrophils # (A) 5.96 10*3/uL (1.80-7.70); Neutrophils % (A) 71.6 %; Platelet Count 277 10*3/uL (140-440); RBC 2.01 10*6/uL (4.10-5.20); RDW 21.9 % (11.5-14.5); WBC 8.33 10*3/uL (4.50-10.00)
[2024-07-28 19:02] LABS: African American GFR (CKD) 5 (>60 ml/min/1.73 sqM); Anion Gap 11 mmol/L; Blood Urea Nitrogen 51 mg/dL (7-17); Calcium 7.5 mg/dL (8.4-10.2); Carbon Dioxide 24 mmol/L (22-30); Chloride 97 mmol/L (98-107); Glucose 93 mg/dL (74-99); Magnesium 1.6 mg/dL (1.6-2.3); Non-African American GFR(CKD) 5 (>60 ml/min/1.73 sqM); Potassium 4.8 mmol/L (3.5-5.1); Sodium 132 mmol/L (137-145)
[2024-07-28 19:16] LABS: Anisocytosis (M) Present; Stomatocytes Present
[2024-07-28] MEDS ORDERED: VANCOMYCIN IV PER PHARMACY 1 EACH MISC MISCELLANE PRN (19:52)
[2024-07-28] MEDS: metroNIDAZOLE-NS PMX 500 MG in SALINE 1 100ML.BAG IVPB SCH (20:41)
[2024-07-28] MEDS: tiZANidine 4 MG TAB PO SCH (20:41)
[2024-07-28] MEDS: VANCOMYCIN 1,500 MG in SODIUM CHLORIDE 0.9% 500 ML 500 ML IVPB ONE (21:40)
[2024-07-28] MEDS: NOREPINEPHRINE 4 MG in SODIUM CHLORIDE 0.9% 250 ML IV SCH (22:25)
[2024-07-29] MEDS: HEPARIN SODIUM,PORCINE 5,000 UNIT/ML 1 ML VIAL SQ SCH (00:06)
[2024-07-29] MEDS: SODIUM CHLORIDE 0.9% 500 ML 500 ML IV ONE (00:06)
--- NOTE | 2024-07-29 02:08 | P.CNPUL ---
History of Present Illness Consult date: 07/29/24 Requesting physician: Cassia Valentin Reason for consult: other (ICU management) Chief complaint: Transfer from outside facility History of present illness: Patient is a 43-year-old female with past medical history significant for end- stage renal disease (undergoes hemodialysis on a Saturday, Saturday, Saturday schedule), focal segmental glomerulosclerosis, complicated diverticulitis with previous partial colectomy and colostomy. Patient was transferred from [facility] yesterday for vascular surgical services. Reportedly, underwent hemodialysis at outside facility, and there were concerns for possible thrombosis of the left AV graft. Patient was also hypotensive, she was admitted to the intensive care unit. Of note, hemoglobin was 6.9 g/dL at the outside facility, and she did receive 1 unit of PRBCs. Repeat labs from yesterday including a WBC count of 8.3, hemoglobin 7.9, platelets 277. BMP: Sodium 132, potassium 4.8, chloride 97, serum bicarb 24, BUN 51, creatinine 9.57, glucose 93. Patient does have a soft tissue abdominal wound with purulent drainage. Previously started on a combination of Flagyl and vancomycin. Infectious diseases consulted. I did receive a call last night, patient's blood pressure was hypotensive, and recommended norepinephrine to be started. She is currently being evaluated in the intensive care unit. She is alert and oriented. Norepinephrine is infusing at 0.03 mcg/kg/min. Also, previously started on midodrine 10 mg 3 times daily. She is afebrile. Nontachycardic. Blood pressures currently 97/56 mmHg. No nausea or vomiting. Colostomy appears functional. Denies any blood loss from her ostomy bag. No abdominal pain. Does have significant mount of purulent drainage from her abdominal wound. Patient states that she first noticed this back in August,. The patient herself has no specific complaints. Review of Systems REVIEW OF SYSTEMS: CONSTITUTIONAL: Denies any recent significant weight loss or weight gain. Denies any fever/chills. EYES: Denies change in vision. EARS, NOSE, MOUTH, THROAT: Denies headaches, denies sore throat. CARDIOVASCULAR: Denies chest pain, palpitations or syncopal episodes. RESPIRATORY: Denies shortness of breath, cough, congestion or hemoptysis. GASTROINTESTINAL: Denies change in appetite, abdominal pain, nausea and vomiting, or diarrhea GENITOURINARY: Denies hematuria, denies infections. MUSKULOSKELETAL: Denies pain, denies swelling. INTEGUMENTARY: Denies rash, denies eczema. Chronic soft tissue wound of the abdomen with purulent drainage. NEUROLOGICAL: Denies recent memory loss, no recent seizure activity. PSYCHIATRIC: Denies anxiety, denies depression. HEMATOLOGIC/LYMPHATIC: Denies anemia, denies enlarged lymph node 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 none since then, SWOLLEN OPTICAL NERVE & RETINA, STATES VISION BLURRED AT TIMES, PSEUDO TUMOR BRAIN, HX GOUT, ANEMIA, KIDNEY FAILURE-HAS DIALYSIS fistula for HEMODIALYSIS -SAT-SAT left lower loop -HX FSGS (FOCAL SEGMENTAL GLOMERULOSCLEROSIS), COLITIS, Ruptured DIVERTICULITIS, BLEEDING GASTRIC ULCER, colostomy 2022 History of Any Multi-Drug Resistant Organisms: None Reported Past Surgical History: Bowel Resection, Section, Cholecystectomy Additional Past Surgical History / Comment(s): peritoneal dialysis catheter and removal, sigmoid colectomy with colostomy, percutaneous cholecystostomy tube insertion and removal, lysis of adhesions Past Anesthesia/Blood Transfusion Reactions: No Reported Reaction Past Psychological History: Anxiety Additional Psychological History / Comment(s): CURRENT ANXIETY Smoking Status: Former smoker Past Alcohol Use History: None Reported, Occasional Additional Past Alcohol Use History / Comment(s): QUIT SMOKING 2001, SMOKED 1/2 PPD, SMOKED 3 YEARS. Past Drug Use History: Marijuana Additional Drug Use History / Comment(s): Gummies. for sleep and pain. - Past Family History Father Family Medical History: Myocardial Infarction ([place]) Additional Family Medical History / Comment(s): FATHER AT AGE 35 OF MASSIVE HEART ATTACK Mother Family Medical History: Cancer, Deep Vein Thrombosis (DVT) Additional Family Medical History / Comment(s): SKIN CANCER Medications and Allergies Home Medications Medication Instructions Recorded Confirmed Type tiZANidine [Zanaflex] 4 mg PO HS 09/04/23 07/28/24 History Doxycycline [Vibramycin] 100 mg PO BID 04/24/24 07/28/24 History Famotidine [Pepcid] 20 mg PO DAILY 04/24/24 07/28/24 History Loperamide HCl [Imodium A-D] 2 mg PO QID PRN 04/24/24 07/28/24 History Midodrine HCl [ProAmatine] 10 mg PO MOWEFR 04/24/24 07/28/24 History Sevelamer [Renvela] 800 mg PO TID-W/MEALS 04/24/24 07/28/24 History Triphrocaps (B Complex With C 1 cap PO DAILY 07/28/24 07/28/24 History 20-Folic Acid 1mg) Allergies Allergy/AdvReac Type Severity Reaction Status Date / Time cefazolin [From Ancef] Allergy Anaphylaxis Verified 07/28/24 17:33 piperacillin [From Zosyn] Allergy Anaphylaxis Verified 07/28/24 17:33 tazobactam [From Zosyn] Allergy Anaphylaxis Verified 07/28/24 17:33 iron AdvReac Severe Nausea & Verified 07/28/24 17:33 Vomiting & Diarrhea ciprofloxacin [From Cipro] AdvReac UNCONTROLLABLE Verified 07/28/24 17:33 EMOTIONS PER PT Pertussis Vaccines AdvReac seizures Verified 07/28/24 17:33 Physical Exam Vitals: Vital Signs Temp Pulse Pulse Resp BP BP Pulse Ox 07/29/24 01:00 79 18 97/56 99 07/29/24 00:45 75 23 97/56 07/29/24 00:33 78 18 97/56 100 07/29/24 00:30 81 19 91/56 99 07/29/24 00:15 78 9 L 99/66 98 07/29/24 00:00 98.1 F 69 22 107/59 99 07/28/24 23:45 70 24 101/55 99 07/28/24 23:30 62 12 93/52 100 07/28/24 23:15 69 20 93/62 99 07/28/24 23:00 67 25 H 93/53 100 07/28/24 22:45 64 23 88/54 99 07/28/24 22:30 67 23 76/45 99 07/28/24 22:15 71 18 84/45 98 07/28/24 22:00 73 16 89/47 98 07/28/24 21:30 82 17 101/78 99 07/28/24 21:00 81 9 L 110/69 99 07/28/24 20:30 79 12 101/68 99 07/28/24 20:00 98.6 F 77 19 100/66 07/28/24 19:30 74 17 100/61 07/28/24 19:00 73 22 84/69 07/28/24 18:30 90 17 91/64 07/28/24 18:00 77 14 96/62 07/28/24 17:30 79 11 L 103/63 07/28/24 17:00 76 16 108/69 07/28/24 16:52 98.0 F 80 17 103/63 07/28/24 16:30 98.0 F 80 10 L 110/64 07/28/24 16:29 82 17 Intake and Output 07/28/24 07/28/24 07/29/24 14:59 22:59 06:59 Intake Total 600 517.022 Output Total 950 Balance -350 517.022 Intake: IV 600 500 Sodium Chloride 0.9% 500 500 ml 500 ml @ 999 mls/hr IV .Q31M ONE Rx#:[id number] Vancomycin 1,500 mg In 500 Sodium Chloride 0.9% 500 ml 500 ml @ 167 mls/hr IVPB ONCE ONE Rx#: [id number] metroNIDAZOLE-NS PMX 500 100 mg In Saline 1 100ml.bag @ 100 mls/hr IVPB Q8H COUNT INCLUDES THE [facility] Rx#:[id number] Intake, IV Titration 17.022 Amount Norepinephrine 4 mg In 17.022 Sodium Chloride 0.9% 250 ml @ 0.03 MCG/KG/MIN 9. 201 mls/hr IV .Q24H COUNT INCLUDES THE [facility] Rx#:[id number] Output: Urine 0 Stool 950 Other: Weight 80.5 kg GENERAL EXAM: Alert, 43-year-old female, comfortable in no apparent distress. HEAD: Normocephalic and atraumatic EYES: Normal reaction of pupils, equal size. NOSE: Clear with pink turbinates. THROAT: No erythema or exudates. NECK: No masses, no JVD. CHEST: No chest wall deformity. LUNGS: Equal air entry with no crackles, wheeze, rhonchi or dullness. No conversational dyspnea or accessory muscle use.. CVS: S1 and S2 normal with no audible murmur, regular rhythm. No extra heart sounds ABDOMEN: No hepatosplenomegaly, active bowel sounds, no guarding or rigidity. Functional colostomy over the left abdomen SPINE: No scoliosis or deformity SKIN: Soft tissue abdominal wound with areas of induration and erythema and purulent drainage. CENTRAL NERVOUS SYSTEM: No focal deficits, tone is normal in all 4 extremities. EXTREMITIES: There is no peripheral edema, clubbing, or cyanosis. Peripheral pulses are intact. Left arm ecchymosis, positive bruit and thrill Results - Laboratory Findings CBC and BMP: 07/28/24 18:21 07/28/24 18:21 Abnormal lab findings: Abnormal Labs 07/28/24 07/28/24 18:21 18:21 RBC 2.01 L Hgb 7.9 L Hct 23.3 L MCV 115.9 H MCH 39.3 H Immature Gran # 0.05 H Sodium 132 L Chloride 97 L BUN 51 H Creatinine 9.57 H* Calcium 7.5 L Assessment and Plan Assessment: Concern for possible left AV graft thrombosis, vascular surgery is consulted Hypotension, previously started on vasopressors End-stage renal disease, maintained on a Saturday, Saturday, Saturday schedule History of focal segmental glomerulosclerosis Acute on chronic anemia, status post 1 PRBC transfusion, repeat hemoglobin up to 7.9 g/dL Chronic soft tissue abdominal wound History of complicated diverticulitis status post sigmoidectomy and colostomy Plan: Currently on norepinephrine, which is infusing at 0.03 mcg/kg/min Midodrine 10 mg 3 times daily previously restarted Provide gentle fluid resuscitation, with 500 mL of normal saline bolus Empirically covered in antibiotics Wound culture sent Infectious disease consulted Vascular surgery also consulted Nephrology is managing patient's hemodialysis treatments We will continue to follow the patient while in the intensive care unit I have personally seen and examined the patient, performed the documentation and the assessment and plan as written. Number of minutes spent on the visit:20 Time with Patient: Greater than 30
[2024-07-29 02:17] LABS: Basophils # (A) 0.06 10*3/uL (0.00-0.10); Basophils % (A) 0.8 %; Eosinophils # (A) 0.11 10*3/uL (0.04-0.35); Eosinophils % (A) 1.4 %; HCT 23.1 % (37.2-46.3); HGB 7.7 g/dL (12.0-15.0); Lymphocytes # (A) 2.06 10*3/uL (0.90-5.00); MCH 39.5 pg (27.0-32.0); MCHC 33.3 g/dL (32.0-37.0); Mean Platelet Volume 9.6 fL (9.5-12.2); Monocytes # (A) 0.34 10*3/uL (0.20-1.00); Monocytes % (A) 4.3 %; Neutrophils # (A) 5.32 10*3/uL (1.80-7.70); Platelet Count 237 10*3/uL (140-440); RBC 1.95 10*6/uL (4.10-5.20); RDW 22.3 % (11.5-14.5); WBC 7.93 10*3/uL (4.50-10.00)
[2024-07-29 02:24] LABS: MCV 118.5 fL (80.0-97.0)
[2024-07-29 02:39] LABS: ALT 11 U/L (4-34); AST 15 U/L (14-36); African American GFR (CKD) 5 (>60 ml/min/1.73 sqM); Albumin 2.9 g/dL (3.5-5.0); Alkaline Phosphatase 103 U/L (38-126); Anion Gap 16 mmol/L; Blood Urea Nitrogen 55 mg/dL (7-17); Calcium 7.5 mg/dL (8.4-10.2); Carbon Dioxide 17 mmol/L (22-30); Chloride 99 mmol/L (98-107); Glucose 81 mg/dL (74-99); Non-African American GFR(CKD) 4 (>60 ml/min/1.73 sqM); Potassium 4.7 mmol/L (3.5-5.1); Sodium 132 mmol/L (137-145); Total Bilirubin 0.6 mg/dL (0.2-1.3); Total Protein 5.6 g/dL (6.3-8.2)
[2024-07-29] MEDS: SEVELAMER 800 MG TAB PO SCH (05:10)
[2024-07-29] MEDS: PANTOPRAZOLE 40 MG TABLET PO SCH (05:10)
[2024-07-29] MEDS: MIDODRINE 5 MG TAB PO SCH (06:44)
--- NOTE | 2024-07-29 08:01 | US ---
EXAMINATION TYPE: US abdomen limited DATE OF EXAM: 07/29/2024 COMPARISON: NONE CLINICAL INDICATION: Female, 43 years old with history of soft tissue/cutaneous wound; small wound mi d belly wont heal leaking fluid area of surgery scar. TECHNIQUE: FINDINGS: Scanned area of concern no fluid pocket visualized. IMPRESSION: No drainable fluid collections seen. [facility], , 07/29/2024 7:58 AM
[2024-07-29] MEDS: CYANOCOBALAMIN 500 MCG TAB PO SCH (08:25)
[2024-07-29] MEDS: FOLIC ACID-VIT B COMPLEX-VIT C 1 CAP PO SCH (10:30)
--- NOTE | 2024-07-29 11:15 | P.NPCON ---
History of Present Illness - Reason for Consult end stage renal disease - History of Present Illness Patient is a 43-year-old female with history of end-stage renal disease on hemodialysis on Saturday schedule via left arm AV graft. Patient was admitted to [facility] for significant hypotension, lightheadedness and dizziness. She appeared volume depleted and was given flui ds. Patient has had trouble with her AV graft last week at outpatient dialysis with infiltration noted and short treatment times for last 2 treatments. She did get 1 treatment at [facility] but this was terminated early due to lots noted in the needles. There is bruising around the access which has not worsened. Ultrasound at [facility] showed evidence of thrombus. Patient is therefore transferred to [facility] for further evaluation from vascular standpoint. No history of fever chills nausea vomiting or abdominal pain. No history of cough. History of diverticulitis and colon resection with colostomy with plans for reversal down the road. 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 none since then, SWOLLEN OPTICAL NERVE & RETINA, STATES VISION BLURRED AT TIMES, PSEUDO TUMOR BRAIN, HX GOUT, ANEMIA, KIDNEY FAILURE-HAS DIALYSIS fistula for HEMODIALYSIS -SAT-SAT left lower loop -HX FSGS (FOCAL SEGMENTAL GLOMERULOSCLEROSIS), COLITIS, Ruptured DIVERTICULITIS, BLEEDING GASTRIC ULCER, colostomy 2022 History of Any Multi-Drug Resistant Organisms: None Reported Past Surgical History: Bowel Resection, Section, Cholecystectomy Additional Past Surgical History / Comment(s): peritoneal dialysis catheter and removal, sigmoid colectomy with colostomy, percutaneous cholecystostomy tube insertion and removal, lysis of adhesions Past Anesthesia/Blood Transfusion Reactions: No Reported Reaction Past Psychological History: Anxiety Additional Psychological History / Comment(s): CURRENT ANXIETY Smoking Status: Former smoker Past Alcohol Use History: None Reported, Occasional Additional Past Alcohol Use History / Comment(s): QUIT SMOKING 2001, SMOKED 1/2 PPD, SMOKED 3 YEARS. Past Drug Use History: Marijuana Additional Drug Use History / Comment(s): Gummies. for sleep and pain. - Past Family History Father Family Medical History: Myocardial Infarction ([place]) Additional Family Medical History / Comment(s): FATHER AT AGE 35 OF MASSIVE HEART ATTACK Mother Family Medical History: Cancer, Deep Vein Thrombosis (DVT) Additional Family Medical History / Comment(s): SKIN CANCER Medications and Allergies Home Medications Medication Instructions Recorded Confirmed Type tiZANidine [Zanaflex] 4 mg PO HS 09/04/23 07/28/24 History Doxycycline [Vibramycin] 100 mg PO BID 04/24/24 07/28/24 History Famotidine [Pepcid] 20 mg PO DAILY 04/24/24 07/28/24 History Loperamide HCl [Imodium A-D] 2 mg PO QID PRN 04/24/24 07/28/24 History Midodrine HCl [ProAmatine] 10 mg PO MOWEFR 04/24/24 07/28/24 History Sevelamer [Renvela] 800 mg PO TID-W/MEALS 04/24/24 07/28/24 History Triphrocaps (B Complex With C 1 cap PO DAILY 07/28/24 07/28/24 History 20-Folic Acid 1mg) Allergies Allergy/AdvReac Type Severity Reaction Status Date / Time cefazolin [From Ancef] Allergy Anaphylaxis Verified 07/28/24 17:33 piperacillin [From Zosyn] Allergy Anaphylaxis Verified 07/28/24 17:33 tazobactam [From Zosyn] Allergy Anaphylaxis Verified 07/28/24 17:33 iron AdvReac Severe Nausea & Verified 07/28/24 17:33 Vomiting & Diarrhea ciprofloxacin [From Cipro] AdvReac UNCONTROLLABLE Verified 07/28/24 17:33 EMOTIONS PER PT Pertussis Vaccines AdvReac seizures Verified 07/28/24 17:33 Physical Exam Vitals: Vital Signs Temp Pulse Pulse Resp BP BP Pulse Ox 07/29/24 10:00 71 14 107/69 99 07/29/24 09:30 77 18 105/70 100 07/29/24 09:00 70 14 104/66 100 07/29/24 08:45 69 9 L 106/75 99 07/29/24 08:30 75 23 99/60 100 07/29/24 08:15 97.7 F 77 15 98/72 100 07/29/24 08:00 70 16 102/65 100 07/29/24 07:45 70 99/62 100 07/29/24 07:30 69 14 111/62 100 07/29/24 07:15 73 15 103/68 99 07/29/24 07:00 73 14 102/63 99 07/29/24 06:45 101/63 99 07/29/24 06:30 71 98/65 100 07/29/24 06:15 71 99/65 100 07/29/24 06:00 79 88/59 100 07/29/24 05:45 75 88/59 100 07/29/24 05:30 69 89/53 100 07/29/24 05:15 77 99/51 07/29/24 05:00 77 99/61 98 07/29/24 04:45 72 28 H 100/49 96 07/29/24 04:30 68 14 96/53 100 07/29/24 04:15 83 21 102/50 97 07/29/24 04:00 98.2 F 93 25 H 98/66 99 07/29/24 03:45 81 16 94/61 98 07/29/24 03:30 77 16 102/57 07/29/24 03:15 15 99/58 100 07/29/24 03:00 86 11 L 101/58 99 07/29/24 02:45 78 18 102/57 98 07/29/24 02:30 77 16 99/60 98 07/29/24 02:15 75 10 L 98/63 07/29/24 02:00 76 16 96/58 99 07/29/24 01:45 75 17 99/56 99 07/29/24 01:30 75 17 94/55 99 07/29/24 01:15 78 23 100/66 99 07/29/24 01:00 79 18 97/56 99 07/29/24 00:45 75 23 97/56 07/29/24 00:33 78 18 97/56 100 07/29/24 00:30 81 19 91/56 99 07/29/24 00:15 78 9 L 99/66 98 07/29/24 00:00 98.1 F 69 22 107/59 99 07/28/24 23:45 70 24 101/55 99 07/28/24 23:30 62 12 93/52 100 07/28/24 23:15 69 20 93/62 99 07/28/24 23:00 67 25 H 93/53 100 07/28/24 22:45 64 23 88/54 99 07/28/24 22:30 67 23 76/45 99 07/28/24 22:15 71 18 84/45 98 07/28/24 22:00 73 16 89/47 98 07/28/24 21:30 82 17 101/78 99 07/28/24 21:00 81 9 L 110/69 99 07/28/24 20:30 79 12 101/68 99 07/28/24 20:00 98.6 F 77 19 100/66 07/28/24 19:30 74 17 100/61 07/28/24 19:00 73 22 84/69 07/28/24 18:30 90 17 91/64 07/28/24 18:00 77 14 96/62 07/28/24 17:30 79 11 L 103/63 07/28/24 17:00 76 16 108/69 07/28/24 16:52 98.0 F 80 17 103/63 07/28/24 16:30 98.0 F 80 10 L 110/64 07/28/24 16:29 82 17 Intake and Output 07/28/24 07/29/24 07/29/24 22:59 06:59 14:59 Intake Total 600 617.022 55 Output Total 950 400 400 Balance -350 217.022 -345 Intake: IV 600 600 30 Sodium Chloride 0.9% 500 500 30 ml 500 ml @ 999 mls/hr IV .Q31M ONE Rx#:[id number] Vancomycin 1,500 mg In 500 Sodium Chloride 0.9% 500 ml 500 ml @ 167 mls/hr IVPB ONCE ONE Rx#: [id number] metroNIDAZOLE-NS PMX 500 100 100 mg In Saline 1 100ml.bag @ 100 mls/hr IVPB Q8H [facility] Rx#:[id number] Intake, IV Titration 17.022 Amount Norepinephrine 4 mg In 17.022 Sodium Chloride 0.9% 250 ml @ 0.03 MCG/KG/MIN 9. 201 mls/hr IV .Q24H [facility] Rx#:[id number] Oral 25 Output: Urine 0 Stool 950 400 400 Other: Weight 80.5 kg 82.5 kg Patient is awake, comfortable, no acute distress Alert oriented x 3 Examination of the heart S1 and S2 Examination of the lungs bilateral breath sounds are heard Abdomen is soft nontender Examination of lower extremities shows no significant edema Bruising noted at the site of the AV graft with bruit heard [employer] exam grossly intact Results - Lab Results Most recent lab results Calcium 7.5 mg/dL (8.4-10.2) L 07/29/24 01:53 Magnesium 1.5 mg/dL (1.6-2.3) L 07/29/24 01:53 07/29/24 01:53 07/29/24 01:53 Assessment and Plan Assessment: 1. End-stage renal disease maintained on hemodialysis on Saturday schedule. Permacath was continued last week and patient currently has a left forearm AV graft 2. Infiltration of the left forearm AV graft with thrombus noted on ultrasound and bruising, vascular surgery on consult. 3. CKD mineral bone disorder 4. Hypotension secondary to volume depletion status post IV fluids 5. History of diverticulitis and bowel resection with colostomy with plans for reversal down the road Plan: Hemodialysis today once cleared by vascular surgery Check cortisol level Resume IV fluids Thank you for the consultation. Will continue to follow the patient with you during her hospitalization.
--- NOTE | 2024-07-29 11:28 | P.GSCN ---
History of Present Illness Consult date: 07/29/24 Reason for Consult: Abdominal wound History of present illness: 43-year-old female with a very complex medical and surgical history. Patient is known to our service from a 2019 peritoneal dialysis catheter insertion procedure where at the time of surgery she had a moderate-sized umbilical hernia that was repaired with a preperitoneal 6 cm round mesh placement. Patient since then has had issues with diverticulitis and cholecystitis. Underwent multiple colon related surgeries. Had a colostomy now has an ileostomy. There is been discussion for ileostomy reversal. Has been following at [facility] with colorectal surgery for that. Patient apparently during one of her recent visits was noted to have some purulent drainage from her midline incision and the patient herself felt a small piece of mesh there. The mesh was apparently debrided by her colorectal surgery team in the office. They discussed possibly removing the mesh at the time of her ileostomy reversal. Patient was transferred here after her dialysis fistula was nonfunctional. Has been dealing with intermittent hypotension. No abdominal pain. No erythema of the abdominal wall. Apparently an ultrasound was done at the bedside showing no sizable collection. No recent CAT scan here. Patient's white blood cell count is normal. No fevers. Review of Systems The patient denies any acute changes in vision or hearing, no dysphagia or odynophagia, no chest pain or shortness of breath, no dysuria or hematuria, no headache, no runny nose, no rectal bleeding or melena, no unexplained weight loss 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 none since then, SWOLLEN OPTICAL NERVE & RETINA, STATES VISION BLURRED AT TIMES, PSEUDO TUMOR BRAIN, HX GOUT, ANEMIA, KIDNEY FAILURE-HAS DIALYSIS fistula for HEMODIALYSIS -SAT-SAT left lower loop -HX FSGS (FOCAL SEGMENTAL GLOMERULOSCLEROSIS), COLITIS, Ruptured DIVERTICULITIS, BLEEDING GASTRIC ULCER, colostomy 2022 History of Any Multi-Drug Resistant Organisms: None Reported Past Surgical History: Bowel Resection, Section, Cholecystectomy Additional Past Surgical History / Comment(s): peritoneal dialysis catheter and removal, sigmoid colectomy with colostomy, percutaneous cholecystostomy tube insertion and removal, lysis of adhesions Past Anesthesia/Blood Transfusion Reactions: No Reported Reaction Past Psychological History: Anxiety Additional Psychological History / Comment(s): CURRENT ANXIETY Smoking Status: Former smoker Past Alcohol Use History: None Reported, Occasional Additional Past Alcohol Use History / Comment(s): QUIT SMOKING 2001, SMOKED 1/2 PPD, SMOKED 3 YEARS. Past Drug Use History: Marijuana Additional Drug Use History / Comment(s): Gummies. for sleep and pain. - Past Family History Father Family Medical History: Myocardial Infarction ([place]) Additional Family Medical History / Comment(s): FATHER AT AGE 35 OF MASSIVE HEART ATTACK Mother Family Medical History: Cancer, Deep Vein Thrombosis (DVT) Additional Family Medical History / Comment(s): SKIN CANCER Medications and Allergies Home Medications Medication Instructions Recorded Confirmed Type tiZANidine [Zanaflex] 4 mg PO HS 09/04/23 07/28/24 History Doxycycline [Vibramycin] 100 mg PO BID 04/24/24 07/28/24 History Famotidine [Pepcid] 20 mg PO DAILY 04/24/24 07/28/24 History Loperamide HCl [Imodium A-D] 2 mg PO QID PRN 04/24/24 07/28/24 History Midodrine HCl [ProAmatine] 10 mg PO MOWEFR 04/24/24 07/28/24 History Sevelamer [Renvela] 800 mg PO TID-W/MEALS 04/24/24 07/28/24 History Triphrocaps (B Complex With C 1 cap PO DAILY 07/28/24 07/28/24 History 20-Folic Acid 1mg) Allergies Allergy/AdvReac Type Severity Reaction Status Date / Time cefazolin [From Ancef] Allergy Anaphylaxis Verified 07/28/24 17:33 piperacillin [From Zosyn] Allergy Anaphylaxis Verified 07/28/24 17:33 tazobactam [From Zosyn] Allergy Anaphylaxis Verified 07/28/24 17:33 iron AdvReac Severe Nausea & Verified 07/28/24 17:33 Vomiting & Diarrhea ciprofloxacin [From Cipro] AdvReac UNCONTROLLABLE Verified 07/28/24 17:33 EMOTIONS PER PT Pertussis Vaccines AdvReac seizures Verified 07/28/24 17:33 Surgical - Exam Vital Signs Pulse Resp 82 17 07/28/24 16:29 07/28/24 16:29 Physical exam: General: Well-developed, well-nourished HEENT: Normocephalic, sclerae nonicteric Abdomen: Nontender, nondistended, multiple abdominal scars present, small 2 x 2 mm skin opening with a small amount of purulent drainage along her vertical incision in the right periumbilical location, no erythema or fluctuance Extremities: No edema Neuro: Alert and oriented Results - Labs 07/29/24 01:53 07/29/24 01:53 Abnormal Lab Results - Last 24 Hours (Table) 07/28/24 07/28/24 07/29/24 Range/Units 18:21 18:21 01:53 RBC 2.01 L 1.95 L (4.10-5.20) 10*6/uL Hgb 7.9 L 7.7 L (12.0-15.0) g/dL Hct 23.3 L 23.1 L (37.2-46.3) % MCV 115.9 H 118.5 H (80.0-97.0) fL MCH 39.3 H 39.5 H (27.0-32.0) pg Immature Gran # 0.05 H (0.00-0.04) 10*3/uL Sodium 132 L (137-145) mmol/L Chloride 97 L (98-107) mmol/L Carbon Dioxide (22-30) mmol/L BUN 51 H (7-17) mg/dL Creatinine 9.57 H* (0.52-1.04) mg/dL Calcium 7.5 L (8.4-10.2) mg/dL Magnesium (1.6-2.3) mg/dL Total Protein (6.3-8.2) g/dL Albumin (3.5-5.0) g/dL 07/29/24 07/29/24 Range/Units 01:53 01:53 RBC (4.10-5.20) 10*6/uL Hgb (12.0-15.0) g/dL Hct (37.2-46.3) % MCV (80.0-97.0) fL MCH (27.0-32.0) pg Immature Gran # (0.00-0.04) 10*3/uL Sodium 132 L (137-145) mmol/L Chloride (98-107) mmol/L Carbon Dioxide 17 L (22-30) mmol/L BUN 55 H (7-17) mg/dL Creatinine 9.87 H* (0.52-1.04) mg/dL Calcium 7.5 L (8.4-10.2) mg/dL Magnesium 1.5 L (1.6-2.3) mg/dL Total Protein 5.6 L (6.3-8.2) g/dL Albumin 2.9 L (3.5-5.0) g/dL Diabetes panel 07/28/24 07/29/24 Range/Units 18:21 01:53 Sodium 132 L 132 L (137-145) mmol/L Potassium 4.8 4.7 (3.5-5.1) mmol/L Chloride 97 L 99 (98-107) mmol/L Carbon Dioxide 24 17 L (22-30) mmol/L BUN 51 H 55 H (7-17) mg/dL Creatinine 9.57 H* 9.87 H* (0.52-1.04) mg/dL Glucose 93 81 (74-99) mg/dL Calcium 7.5 L 7.5 L (8.4-10.2) mg/dL AST 15 (14-36) U/L ALT 11 (4-34) U/L Alkaline Phosphatase 103 (38-126) U/L Total Protein 5.6 L (6.3-8.2) g/dL Albumin 2.9 L (3.5-5.0) g/dL Calcium panel 07/28/24 07/29/24 Range/Units 18:21 01:53 Calcium 7.5 L 7.5 L (8.4-10.2) mg/dL Albumin 2.9 L (3.5-5.0) g/dL Pituitary panel 07/28/24 07/29/24 Range/Units 18:21 01:53 Sodium 132 L 132 L (137-145) mmol/L Potassium 4.8 4.7 (3.5-5.1) mmol/L Chloride 97 L 99 (98-107) mmol/L Carbon Dioxide 24 17 L (22-30) mmol/L BUN 51 H 55 H (7-17) mg/dL Creatinine 9.57 H* 9.87 H* (0.52-1.04) mg/dL Glucose 93 81 (74-99) mg/dL Calcium 7.5 L 7.5 L (8.4-10.2) mg/dL Adrenal panel 07/28/24 07/29/24 Range/Units 18:21 01:53 Sodium 132 L 132 L (137-145) mmol/L Potassium 4.8 4.7 (3.5-5.1) mmol/L Chloride 97 L 99 (98-107) mmol/L Carbon Dioxide 24 17 L (22-30) mmol/L BUN 51 H 55 H (7-17) mg/dL Creatinine 9.57 H* 9.87 H* (0.52-1.04) mg/dL Glucose 93 81 (74-99) mg/dL Calcium 7.5 L 7.5 L (8.4-10.2) mg/dL Total Bilirubin 0.6 (0.2-1.3) mg/dL AST 15 (14-36) U/L ALT 11 (4-34) U/L Alkaline Phosphatase 103 (38-126) U/L Total Protein 5.6 L (6.3-8.2) g/dL Albumin 2.9 L (3.5-5.0) g/dL Assessment and Plan (1) Open abdominal wall wound Narrative/Plan: 33-year-old female with small abdominal wound. Patient with probable infected mesh there subacute in nature. This does not appear to be contributing to the patient's hypotension or ICU related issues currently. At the bedside the patient's wound was probed with a cotton tip swab. I was able to convert the small 2 mm opening into a 9 x 9 mm opening. The subcutaneous tissues were probed. Depth approximately 1 cm. I do believe I feel a small piece of mesh at the wound base. No purulence encountered. No sizable abscess noted or tracking present. Begin packing with Aquacel silver gauze. Follow-up with her colorectal surgery team after discharge to discuss possible mesh removal with ileostomy reversal. Current Visit: Yes Status: Acute Code(s): S31.109A - UNSP OPN WND ABD WALL, UNSP Q W/O PENET PERIT CAV, INIT SNOMED Code(s): 975753804
--- NOTE | 2024-07-29 11:42 | P.GSCN ---
History of Present Illness Consult date: 07/29/24 Reason for Consult: malfunctioning fistula, thrombosis History of present illness: 43 year old female with history of ESRD on HD via left upper extremity fistula presents from [facility] due to thrombosis of her fistula. She states after 2 hours of treatment her fistula thrombosed and she developed a hematoma. She had an ultrasound which demonstrated thrombus within the fistula at the distal aspect. She states prior to this her fistula has been working well. Review of Systems All systems: negative (what is mentioned in the PMH or HPI) 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 none since then, SWOLLEN OPTICAL NERVE & RETINA, STATES VISION BLURRED AT TIMES, PSEUDO TUMOR BRAIN, HX GOUT, ANEMIA, KIDNEY FAILURE-HAS DIALYSIS fistula for HEMODIALYSIS -SAT-SAT left lower loop -HX FSGS (FOCAL SEGMENTAL GLOMERULOSCLER OSIS), COLITIS, Ruptured DIVERTICULITIS, BLEEDING GASTRIC ULCER, colostomy 2022 History of Any Multi-Drug Resistant Organisms: None Reported Past Surgical History: Bowel Resection, Section, Cholecystectomy Additional Past Surgical History / Comment(s): peritoneal dialysis catheter and removal, sigmoid colectomy with colostomy, percutaneous cholecystostomy tube insertion and removal, lysis of adhesions Past Anesthesia/Blood Transfusion Reactions: No Reported Reaction Past Psychological History: Anxiety Additional Psychological History / Comment(s): CURRENT ANXIETY Smoking Status: Former smoker Past Alcohol Use History: None Reported, Occasional Additional Past Alcohol Use History / Comment(s): QUIT SMOKING 2001, SMOKED 1/2 PPD, SMOKED 3 YEARS. Past Drug Use History: Marijuana Additional Drug Use History / Comment(s): Gummies. for sleep and pain. - Past Family History Father Family Medical History: Myocardial Infarction ([place]) Additional Family Medical History / Comment(s): FATHER AT AGE 35 OF MASSIVE HEART ATTACK Mother Family Medical History: Cancer, Deep Vein Thrombosis (DVT) Additional Family Medical History / Comment(s): SKIN CANCER Medications and Allergies Home Medications Medication Instructions Recorded Confirmed Type tiZANidine [Zanaflex] 4 mg PO HS 09/04/23 07/28/24 History Doxycycline [Vibramycin] 100 mg PO BID 04/24/24 07/28/24 History Famotidine [Pepcid] 20 mg PO DAILY 04/24/24 07/28/24 History Loperamide HCl [Imodium A-D] 2 mg PO QID PRN 04/24/24 07/28/24 History Midodrine HCl [ProAmatine] 10 mg PO MOWEFR 04/24/24 07/28/24 History Sevelamer [Renvela] 800 mg PO TID-W/MEALS 04/24/24 07/28/24 History Triphrocaps (B Complex With C 1 cap PO DAILY 07/28/24 07/28/24 History 20-Folic Acid 1mg) Allergies Allergy/AdvReac Type Severity Reaction Status Date / Time cefazolin [From Ancef] Allergy Anaphylaxis Verified 07/28/24 17:33 piperacillin [From Zosyn] Allergy Anaphylaxis Verified 07/28/24 17:33 tazobactam [From Zosyn] Allergy Anaphylaxis Verified 07/28/24 17:33 iron AdvReac Severe Nausea & Verified 07/28/24 17:33 Vomiting & Diarrhea ciprofloxacin [From Cipro] AdvReac UNCONTROLLABLE Verified 07/28/24 17:33 EMOTIONS PER PT Pertussis Vaccines AdvReac seizures Verified 07/28/24 17:33 Surgical - Exam Vital Signs Pulse Resp 82 17 07/28/24 16:29 07/28/24 16:29 Patient Seen Date: 07/29/24 Patient Seen Time: 11:15 left upper extremity echymosis noted with hematoma. palpable thrill at the fistula site. - General well developed, well nourished, no distress - Eyes PERRL - ENT normal pinna - Neck no masses - Respiratory normal expansion, normal respiratory effort Results - Labs 07/29/24 01:53 07/29/24 01:53 Abnormal Lab Results - Last 24 Hours (Table) 07/28/24 07/28/24 07/29/24 Range/Units 18:21 18:21 01:53 RBC 2.01 L 1.95 L (4.10-5.20) 10*6/uL Hgb 7.9 L 7.7 L (12.0-15.0) g/dL Hct 23.3 L 23.1 L (37.2-46.3) % MCV 115.9 H 118.5 H (80.0-97.0) fL MCH 39.3 H 39.5 H (27.0-32.0) pg Immature Gran # 0.05 H (0.00-0.04) 10*3/uL Sodium 132 L (137-145) mmol/L Chloride 97 L (98-107) mmol/L Carbon Dioxide (22-30) mmol/L BUN 51 H (7-17) mg/dL Creatinine 9.57 H* (0.52-1.04) mg/dL Calcium 7.5 L (8.4-10.2) mg/dL Magnesium (1.6-2.3) mg/dL Total Protein (6.3-8.2) g/dL Albumin (3.5-5.0) g/dL 07/29/24 07/29/24 Range/Units 01:53 01:53 RBC (4.10-5.20) 10*6/uL Hgb (12.0-15.0) g/dL Hct (37.2-46.3) % MCV (80.0-97.0) fL MCH (27.0-32.0) pg Immature Gran # (0.00-0.04) 10*3/uL Sodium 132 L (137-145) mmol/L Chloride (98-107) mmol/L Carbon Dioxide 17 L (22-30) mmol/L BUN 55 H (7-17) mg/dL Creatinine 9.87 H* (0.52-1.04) mg/dL Calcium 7.5 L (8.4-10.2) mg/dL Magnesium 1.5 L (1.6-2.3) mg/dL Total Protein 5.6 L (6.3-8.2) g/dL Albumin 2.9 L (3.5-5.0) g/dL Diabetes panel 07/28/24 07/29/24 Range/Units 18:21 01:53 Sodium 132 L 132 L (137-145) mmol/L Potassium 4.8 4.7 (3.5-5.1) mmol/L Chloride 97 L 99 (98-107) mmol/L Carbon Dioxide 24 17 L (22-30) mmol/L BUN 51 H 55 H (7-17) mg/dL Creatinine 9.57 H* 9.87 H* (0.52-1.04) mg/dL Glucose 93 81 (74-99) mg/dL Calcium 7.5 L 7.5 L (8.4-10.2) mg/dL AST 15 (14-36) U/L ALT 11 (4-34) U/L Alkaline Phosphatase 103 (38-126) U/L Total Protein 5.6 L (6.3-8.2) g/dL Albumin 2.9 L (3.5-5.0) g/dL Calcium panel 07/28/24 07/29/24 Range/Units 18:21 01:53 Calcium 7.5 L 7.5 L (8.4-10.2) mg/dL Albumin 2.9 L (3.5-5.0) g/dL Pituitary panel 07/28/24 07/29/24 Range/Units 18:21 01:53 Sodium 132 L 132 L (137-145) mmol/L Potassium 4.8 4.7 (3.5-5.1) mmol/L Chloride 97 L 99 (98-107) mmol/L Carbon Dioxide 24 17 L (22-30) mmol/L BUN 51 H 55 H (7-17) mg/dL Creatinine 9.57 H* 9.87 H* (0.52-1.04) mg/dL Glucose 93 81 (74-99) mg/dL Calcium 7.5 L 7.5 L (8.4-10.2) mg/dL Adrenal panel 07/28/24 07/29/24 Range/Units 18:21 01:53 Sodium 132 L 132 L (137-145) mmol/L Potassium 4.8 4.7 (3.5-5.1) mmol/L Chloride 97 L 99 (98-107) mmol/L Carbon Dioxide 24 17 L (22-30) mmol/L BUN 51 H 55 H (7-17) mg/dL Creatinine 9.57 H* 9.87 H* (0.52-1.04) mg/dL Glucose 93 81 (74-99) mg/dL Calcium 7.5 L 7.5 L (8.4-10.2) mg/dL Total Bilirubin 0.6 (0.2-1.3) mg/dL AST 15 (14-36) U/L ALT 11 (4-34) U/L Alkaline Phosphatase 103 (38-126) U/L Total Protein 5.6 L (6.3-8.2) g/dL Albumin 2.9 L (3.5-5.0) g/dL Assessment and Plan Assessment: Malfunctioning left upper extremity fistula Possible outflow stenosis or thrombus ESRD History of hypotension Plan: Due to her recent history of only 2 hours of treatment and previous ultrasound demonstrating thrombus will take for fistulogram today for possible thrombectomy, or outflow treatment. Discussed with patient who is agreeable.
[2024-07-29] MEDS ORDERED: Magnesium Replacement Protocol 1 EACH MISC MISCELLANE PRN (14:13)
[2024-07-29] MEDS: SODIUM CHLORIDE 0.9% 1,000 ML IV SCH (14:25)
--- NOTE | 2024-07-29 14:34 | P.HPIM ---
History of Present Illness H&P Date: 07/29/24 This is a 43-year-old female with medical history significant for end-stage renal disease maintained on hemodialysis, hypertension, seizure disorder, anemia, focal segmental glomerulosclerosis. Patient has had multiple abdominal surgeries and currently has an ileostomy in place. She has history of umbilical hernia repair with mesh; and history of diverticulitis; cholecystitis. She is also a former smoker. Patient is transferred over from [facility] for vascular consultation. Patient has had a loop graft in the past that was occluded. Back in April patient underwent a left fistula formation. She has been using this for hemodialysis without issues. Her permacatheter was p ulled on Saturday while at [facility] as the fistula has been used for hemodialysis. She was then found to have an occluded graft. Patient currently does not have access for hemodialysis. Patient was in the intensive care unit at [facility] she was admitted secondary to hypotension and had been maintained on normal saline fluid. She is admitted to the intensive care unit today with start on a low-dose of Levophed secondary to decreased blood pressures which have improved at this time and Levophed is currently on hold. Additionally she is having some purulent drainage from her umbilical area. This was apparently debrided outpatient by her colorectal team with plans to discuss mass removal at the time for ileostomy reversal. Her surgeon has started her oral doxycycline in the office last week because of this drainage from her abdominal wound. She states that they did not take cultures. Upon admission to this hospital cultures of the wound were taken and patient was started on IV antibiotic therapy in the form of vancomycin and Flagyl with an infectious disease consultation. General surgery was also consulted. Review of Systems Constitutional: Denied any fatigue denied any fever. Cardio vascular: denied any chest pain, palpitations Gastrointestinal: denied any nausea, vomiting, diarrhea Pulmonary: Denied any shortness of breath cough Neurologic denied any new focal deficits All inpatient medications were reviewed and appropriate changes in these medications as dictated in the interval history and assessment and plan. PHYSICAL EXAMINATION: GENERAL: The patient is alert and oriented x3, not in any acute distress. Well developed, well nourished. HEENT: Pupils are round and equally reacting to light. EOMI. No scleral icterus. No conjunctival pallor. Normocephalic, atraumatic. No pharyngeal erythema. No thyromegaly. CARDIOVASCULAR: S1 and S2 present. No murmurs, rubs, or gallops. PULMONARY: Chest is clear to auscultation, no wheezing or crackles. ABDOMEN: Soft, nontender, nondistended, normoactive bowel sounds. No palpable organomegaly. Purulent drainage from the umbilicus MUSCULOSKELETAL: No joint swelling or deformity. EXTREMITIES: No cyanosis, clubbing, or pedal edema. NEUROLOGICAL: Gross neurological examination did not reveal any focal deficits. SKIN: No rashes. 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 End-stage renal disease maintained on hemodialysis Saturday Hypotension maintained on Levophed currently on hold Seizure disorder Chronic anemia Focal segmental glomerulosclerosis Hypomagnesemia Former smoker GI prophylaxis DVT prophylaxis Full code Plan Patient to be going for fistulogram today for further assessment of her AV fistula Nephrology consultation Vascular consultation Small abdominal wound possibly due to infected mesh from her hernia repair in the past Resume appropriate home medications Gentle hydration wound cultures have been taken of her abdominal wound and started on IV antibiotics Infectious disease consultation The impression and plan of care has been dictated by Roberta Miguel, Nurse Practitioner as directed. Dr. Yuki MD I have performed a history and physical examination and medical decision making of this patient, discussed the same with the dictator, and agree with the dictators assessment and plan as written, documented as a scribe. Based on total visit time, I have performed more than 50% of this visit. 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 none since then, SWOLLEN OPTICAL NERVE & RETINA, STATES VISION BLURRED AT TIMES, PSEUDO TUMOR BRAIN, HX GOUT, ANEMIA, KIDNEY FAILURE-HAS DIALYSIS fistula for HEMODIALYSIS -SAT-SAT left lower loop -HX FSGS (FOCAL SEGMENTAL GLOMERULOSCLEROSIS), COLITIS, Ruptured DIVERTICULITIS, BLEEDING GASTRIC ULCER, colostomy 2022 History of Any Multi-Drug Resistant Organisms: None Reported Past Surgical History: Bowel Resection, Section, Cholecystectomy Additional Past Surgical History / Comment(s): peritoneal dialysis catheter and removal, sigmoid colectomy with colostomy, percutaneous cholecystostomy tube insertion and removal, lysis of adhesions Past Anesthesia/Blood Transfusion Reactions: No Reported Reaction Past Psychological History: Anxiety Additional Psychological History / Comment(s): CURRENT ANXIETY Smoking Status: Former smoker Past Alcohol Use History: None Reported, Occasional Additional Past Alcohol Use History / Comment(s): QUIT SMOKING 2001, SMOKED 1/2 PPD, SMOKED 3 YEARS. Past Drug Use History: Marijuana Additional Drug Use History / Comment(s): Gummies. for sleep and pain. - Past Family History Father Family Medical History: Myocardial Infarction ([place]) Additional Family Medical History / Comment(s): FATHER AT AGE 35 OF MASSIVE HEART ATTACK Mother Family Medical History: Cancer, Deep Vein Thrombosis (DVT) Additional Family Medical History / Comment(s): SKIN CANCER Medications and Allergies Home Medications Medication Instructions Recorded Confirmed Type tiZANidine [Zanaflex] 4 mg PO HS 09/04/23 07/28/24 History Doxycycline [Vibramycin] 100 mg PO BID 04/24/24 07/28/24 History Famotidine [Pepcid] 20 mg PO DAILY 04/24/24 07/28/24 History Loperamide HCl [Imodium A-D] 2 mg PO QID PRN 04/24/24 07/28/24 History Midodrine HCl [ProAmatine] 10 mg PO MOWEFR 04/24/24 07/28/24 History Sevelamer [Renvela] 800 mg PO TID-W/MEALS 04/24/24 07/28/24 History Triphrocaps (B Complex With C 1 cap PO DAILY 07/28/24 07/28/24 History 20-Folic Acid 1mg) Allergies Allergy/AdvReac Type Severity Reaction Status Date / Time cefazolin [From Ancef] Allergy Anaphylaxis Verified 07/28/24 17:33 piperacillin [From Zosyn] Allergy Anaphylaxis Verified 07/28/24 17:33 tazobactam [From Zosyn] Allergy Anaphylaxis Verified 07/28/24 17:33 iron AdvReac Severe Nausea & Verified 07/28/24 17:33 Vomiting & Diarrhea ciprofloxacin [From Cipro] AdvReac UNCONTROLLABLE Verified 07/28/24 17:33 EMOTIONS PER PT Pertussis Vaccines AdvReac seizures Verified 07/28/24 17:33 Physical Exam Vitals: Vital Signs Temp Pulse Pulse Resp BP BP Pulse Ox 07/29/24 10:00 71 14 107/69 99 07/29/24 09:30 77 18 105/70 100 07/29/24 09:00 70 14 104/66 100 07/29/24 08:45 69 9 L 106/75 99 07/29/24 08:30 75 23 99/60 100 07/29/24 08:15 97.7 F 77 15 98/72 100 07/29/24 08:00 70 16 102/65 100 07/29/24 07:45 70 99/62 100 07/29/24 07:30 69 14 111/62 100 07/29/24 07:15 73 15 103/68 99 07/29/24 07:00 73 14 102/63 99 07/29/24 06:45 101/63 99 07/29/24 06:30 71 98/65 100 07/29/24 06:15 71 99/65 100 07/29/24 06:00 79 88/59 100 07/29/24 05:45 75 88/59 100 07/29/24 05:30 69 89/53 100 07/29/24 05:15 77 99/51 07/29/24 05:00 77 99/61 98 07/29/24 04:45 72 28 H 100/49 96 07/29/24 04:30 68 14 96/53 100 07/29/24 04:15 83 21 102/50 97 07/29/24 04:00 98.2 F 93 25 H 98/66 99 07/29/24 03:45 81 16 94/61 98 07/29/24 03:30 77 16 102/57 07/29/24 03:15 15 99/58 100 07/29/24 03:00 86 11 L 101/58 99 07/29/24 02:45 78 18 102/57 98 07/29/24 02:30 77 16 99/60 98 07/29/24 02:15 75 10 L 98/63 07/29/24 02:00 76 16 96/58 99 07/29/24 01:45 75 17 99/56 99 07/29/24 01:30 75 17 94/55 99 07/29/24 01:15 78 23 100/66 99 07/29/24 01:00 79 18 97/56 99 07/29/24 00:45 75 23 97/56 07/29/24 00:33 78 18 97/56 100 07/29/24 00:30 81 19 91/56 99 07/29/24 00:15 78 9 L 99/66 98 07/29/24 00:00 98.1 F 69 22 107/59 99 07/28/24 23:45 70 24 101/55 99 07/28/24 23:30 62 12 93/52 100 07/28/24 23:15 69 20 93/62 99 07/28/24 23:00 67 25 H 93/53 100 07/28/24 22:45 64 23 88/54 99 07/28/24 22:30 67 23 76/45 99 07/28/24 22:15 71 18 84/45 98 07/28/24 22:00 73 16 89/47 98 07/28/24 21:30 82 17 101/78 99 07/28/24 21:00 81 9 L 110/69 99 07/28/24 20:30 79 12 101/68 99 07/28/24 20:00 98.6 F 77 19 100/66 07/28/24 19:30 74 17 100/61 07/28/24 19:00 73 22 84/69 07/28/24 18:30 90 17 91/64 07/28/24 18:00 77 14 96/62 07/28/24 17:30 79 11 L 103/63 07/28/24 17:00 76 16 108/69 07/28/24 16:52 98.0 F 80 17 103/63 07/28/24 16:30 98.0 F 80 10 L 110/64 07/28/24 16:29 82 17 Intake and Output 07/28/24 07/29/24 07/29/24 22:59 06:59 14:59 Intake Total 600 617.022 20 Output Total 950 400 400 Balance -350 217.022 -380 Intake: IV 600 600 20 Sodium Chloride 0.9% 500 500 20 ml 500 ml @ 999 mls/hr IV .Q31M [facility] Rx#:[id number] Vancomycin 1,500 mg In 500 Sodium Chloride 0.9% 500 ml 500 ml @ 167 mls/hr IVPB ONCE ONE Rx#: [id number] metroNIDAZOLE-NS PMX 500 100 100 mg In Saline 1 100ml.bag @ 100 mls/hr IVPB Q8H [facility] Rx#:[id number] Intake, IV Titration 17.022 Amount Norepinephrine 4 mg In 17.022 Sodium Chloride 0.9% 250 ml @ 0.03 MCG/KG/MIN 9. 201 mls/hr IV .Q24H [facility] Rx#:[id number] Output: Urine 0 Stool 950 400 400 Other: Weight 80.5 kg 82.5 kg Results CBC & Chem 7: 07/29/24 01:53 07/29/24 01:53 Labs: Abnormal Lab Results - Last 24 Hours (Table) 07/28/24 07/28/24 07/29/24 Range/Units 18:21 18:21 01:53 RBC 2.01 L 1.95 L (4.10-5.20) 10*6/uL Hgb 7.9 L 7.7 L (12.0-15.0) g/dL Hct 23.3 L 23.1 L (37.2-46.3) % MCV 115.9 H 118.5 H (80.0-97.0) fL MCH 39.3 H 39.5 H (27.0-32.0) pg Immature Gran # 0.05 H (0.00-0.04) 10*3/uL Sodium 132 L (137-145) mmol/L Chloride 97 L (98-107) mmol/L Carbon Dioxide (22-30) mmol/L BUN 51 H (7-17) mg/dL Creatinine 9.57 H* (0.52-1.04) mg/dL Calcium 7.5 L (8.4-10.2) mg/dL Total Protein (6.3-8.2) g/dL Albumin (3.5-5.0) g/dL 07/29/24 Range/Units 01:53 RBC (4.10-5.20) 10*6/uL Hgb (12.0-15.0) g/dL Hct (37.2-46.3) % MCV (80.0-97.0) fL MCH (27.0-32.0) pg Immature Gran # (0.00-0.04) 10*3/uL Sodium 132 L (137-145) mmol/L Chloride (98-107) mmol/L Carbon Dioxide 17 L (22-30) mmol/L BUN 55 H (7-17) mg/dL Creatinine 9.87 H* (0.52-1.04) mg/dL Calcium 7.5 L (8.4-10.2) mg/dL Total Protein 5.6 L (6.3-8.2) g/dL Albumin 2.9 L (3.5-5.0) g/dL Assessment and Plan Time with Patient: Less than 30
[2024-07-29] MEDS: VANCOMYCIN 1,500 MG in SODIUM CHLORIDE 0.9% 500 ML 500 ML IVPB ONE (14:36)
[2024-07-29] MEDS: MAGNESIUM SULFATE-D5W PMX 1 GM in DEXTROSE/WATER 1 100ML.BAG IVPB SCH (14:38)
[2024-07-29] MEDS: DARBEPOETIN ALFA 60 MCG/0.3 ML SYRINGE SQ SCH (14:44)
[2024-07-29] MEDS: MIDAZOLAM 2 MG/2 ML VIAL IVP ONE (17:06)
[2024-07-29] MEDS: LIDOCAINE 1% INJ 10MG/ML (30 ML VIAL-PF) SQ ONE (17:07)
[2024-07-29] MEDS: IOPAMIDOL-300 100ML BTL INJ ONE (17:12)
--- NOTE | 2024-07-29 17:22 | P.OP ---
Date of Procedure: 07/29/24 Description of Procedure: Preoperative diagnosis: Possible malfunctioning dialysis access Postoperative diagnosis: Same, widely patent brachiocephalic fistula Procedure: Ultrasound-guided left upper extremity cephalic vein access Fistulogram Moderate conscious lesion with personal monitoring certified RN administration x 8 minutes Surgeon: Minerva Prado D.O. EBL: Less than 5 cc IV fluids: See records Urine output: Not measured Drains: None Complications: None immediately apparent Condition: Stable Operative indication and findings: Patient is a 43-year-old female with end- stage renal disease and a left upper extremity radiocephalic fistula. There was an issue and infiltration and subsequently an ultrasound was performed at [facility] where there was reported to be thrombus in the distal portion of the cephalic vein. She was transferred here to the hospital for further workup and evaluation. Upon evaluation she did have a good thrill proximally with swelling distally and that was due to previous ultrasound would be reasonable to go forward with a fistulogram for full evaluation possible thrombectomy. Risk benefits were discussed. She seemed understood and was willing proceed Procedure in detail: Patient is taken to the special suite placed in supine position. The left upper extremities prepped and draped in usual sterile fashion. Preprocedure timeout is performed, all parties were in agreement. Using ultrasound at the proximal portion the fistula was accessed with Seldinger technique and placement of 5 [place] sheath was performed. Permanent image was stored. A fistulogram was performed showing a widely patent outflow without any evidence of thrombus, narrowing or further concern. A more central venogram was performed again showing good emptying into the axillary vein and visualized portions subclavian vein without any obvious narrowing or thrombus identified. Due to this along with the brisk wash of contrast the procedure was concluded. The sheath was removed and manual pressure was held. The patient tolerated the procedure well.
--- NOTE | 2024-07-29 17:46 | IR ---
EXAMINATION TYPE: IR fistula/abscess/sinus tract DATE OF EXAM: 07/29/2024 5:18 PM COMPARISON: Pre Operative Images if available both CT/MRI or plain film CLINICAL INDICATION: Female, 43 years old with history of Dialysis, 0.1m/0.821 DAP, Lt upper arm sutu re maual press; TECHNIQUE: IR fistula/abscess/sinus tract, multiple fluoroscopic images provided for procedure. DAP: 0.821 mGym2 Gycm2 uGym2 cGycm2 or equivalent. FINDINGS: IMPRESSION: 1. Report was generated for administrative purposes only. 2. Please see the operative/procedural note for further details. [facility], , 07/29/2024 5:43 PM
[2024-07-29] MEDS: ACETAMINOPHEN TAB 325 MG TAB PO PRN (19:34)
[2024-07-29] MEDS: HYDROmorphone 1 MG/ML 1 ML SYRINGE IVP PRN (21:34)
[2024-07-30] MEDS: ONDANSETRON 4 MG/2 ML VIAL IVP PRN (03:38)
[2024-07-30 04:19] LABS: Anion Gap 15 mmol/L; Blood Urea Nitrogen 62 mg/dL (7-17); Calcium 8.2 mg/dL (8.4-10.2); Carbon Dioxide 16 mmol/L (22-30); Chloride 104 mmol/L (98-107); Glucose 97 mg/dL (74-99); Magnesium 2.4 mg/dL (1.6-2.3); Potassium 5.2 mmol/L (3.5-5.1); Sodium 135 mmol/L (137-145)
[2024-07-30 04:26] LABS: African American GFR (CKD) 4 (>60 ml/min/1.73 sqM); Non-African American GFR(CKD) 3 (>60 ml/min/1.73 sqM)
[2024-07-30 04:49] LABS: Basophils # (A) 0.08 10*3/uL (0.00-0.10); Basophils % (A) 1.1 %; Eosinophils % (A) 2.8 %; HCT 23.9 % (37.2-46.3); HGB 7.8 g/dL (12.0-15.0); Lymphocytes # (A) 1.99 10*3/uL (0.90-5.00); MCH 39.2 pg (27.0-32.0); MCHC 32.6 g/dL (32.0-37.0); MCV 120.1 fL (80.0-97.0); Mean Platelet Volume 9.8 fL (9.5-12.2); Monocytes # (A) 0.37 10*3/uL (0.20-1.00); Monocytes % (A) 5.2 %; Neutrophils # (A) 4.43 10*3/uL (1.80-7.70); Neutrophils % (A) 62.5 %; Platelet Count 263 10*3/uL (140-440); RBC 1.99 10*6/uL (4.10-5.20); RDW 20.9 % (11.5-14.5)
[2024-07-30 05:49] LABS: Anisocytosis (M) Present
--- NOTE | 2024-07-30 09:31 | P.CONS ---
History of Present Illness - Reason for Consult Consult date: 07/29/24 Infectious disease management Requesting physician: Perez Ryder - Chief Complaint Left arm dialysis graft not working x 1 day - History of Present Illness Patient is a 43-year-old female with a past medical history significant for hypertension seizure disorder end-stage renal disease on dialysis patient also have a multiple abdominal surgery including umbilical hernia repair with preperitoneal mesh placement subsequently patient noticed to have some purulent drainage from her midline incision and the patient herself felt small piece of mesh apparently the area has been debrided by her colorectal surgeon and plan was for possible removal of the mesh patient recently admitted at [facility] with hypotension for the patient has been treated at that facility apparently the patient did have problem with her left upper extremity loop graft did apparently get occluded, for the patient has been transferred to [facility] to be evaluated her vascular surgeon patient has been seen by the general surgery this morning and apparently did have bedside manipulation of that wound on her abdominal wall and the 2 small opening has been converted into 190 to 9 mm opening culture hybrid pain patient has been empirically treated with vancomycin and Flagyl infectious disease was consulted for further management of antibiotic therapy patient denies significant abdominal pain Main concern has been a nonhealing wound and some drainage patie nt denies any headache or URI symptoms no chest pain shortness of breath or cough and is helping her ileostomy. Patient on presentation to hospital her white count of 8.33 with a left shift creatinine 1.57 blood and local cultures currently pending Review of Systems Positive point and negatives has been mentioned in the HPI, complete review of systems was performed and all other systems are negative 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 none since then, SWOLLEN OPTICAL NERVE & RETINA, STATES VISION BLURRED AT TIMES, PSEUDO TUMOR BRAIN, HX GOUT, ANEMIA, KIDNEY FAILURE-HAS DIALYSIS fistula for HEMODIALYSIS MO-SAT-SAT left lower loop -HX FSGS (FOCAL SEGMENTAL GLOMERULOSCLEROSIS), COLITIS, Ruptured DIVERTICULITIS, BLEEDING GASTRIC ULCER, colostomy 2022 History of Any Multi-Drug Resistant Organisms: None Reported Past Surgical History: Bowel Resection, Section, Cholecystectomy Additional Past Surgical History / Comment(s): peritoneal dialysis catheter and removal, sigmoid colectomy with colostomy, percutaneous cholecystostomy tube insertion and removal, lysis of adhesions Past Anesthesia/Blood Transfusion Reactions: No Reported Reaction Past Psychological History: Anxiety Additional Psychological History / Comment(s): CURRENT ANXIETY Smoking Status: Former smoker Past Alcohol Use History: None Reported, Occasional Additional Past Alcohol Use History / Comment(s): QUIT SMOKING 2001, SMOKED 1/2 PPD, SMOKED 3 YEARS. Past Drug Use History: Marijuana Additional Drug Use History / Comment(s): Gummies. for sleep and pain. - Past Family History Father Family Medical History: Myocardial Infarction ([place]) Additional Family Medical History / Comment(s): FATHER AT AGE 35 OF MASSIVE HEART ATTACK Mother Family Medical History: Cancer, Deep Vein Thrombosis (DVT) Additional Family Medical History / Comment(s): SKIN CANCER Medications and Allergies Home Medications Medication Instructions Recorded Confirmed Type tiZANidine [Zanaflex] 4 mg PO HS 09/04/23 07/28/24 History Doxycycline [Vibramycin] 100 mg PO BID 04/24/24 07/28/24 History Famotidine [Pepcid] 20 mg PO DAILY 04/24/24 07/28/24 History Loperamide HCl [Imodium A-D] 2 mg PO QID PRN 04/24/24 07/28/24 History Midodrine HCl [ProAmatine] 10 mg PO MOWEFR 04/24/24 07/28/24 History Sevelamer [Renvela] 800 mg PO TID-W/MEALS 04/24/24 07/28/24 History Triphrocaps (B Complex With C 1 cap PO DAILY 07/28/24 07/28/24 History 20-Folic Acid 1mg) Allergies Allergy/AdvReac Type Severity Reaction Status Date / Time cefazolin [From Ancef] Allergy Anaphylaxis Verified 07/28/24 17:33 piperacillin [From Zosyn] Allergy Anaphylaxis Verified 07/28/24 17:33 tazobactam [From Zosyn] Allergy Anaphylaxis Verified 07/28/24 17:33 iron AdvReac Severe Nausea & Verified 07/28/24 17:33 Vomiting & Diarrhea ciprofloxacin [From Cipro] AdvReac UNCONTROLLABLE Verified 07/28/24 17:33 EMOTIONS PER PT Pertussis Vaccines AdvReac seizures Verified 07/28/24 17:33 Physical Exam Vitals: Vital Signs Temp Pulse Pulse Resp BP BP Pulse Ox 07/29/24 10:00 71 14 107/69 99 07/29/24 09:30 77 18 105/70 100 07/29/24 09:00 70 14 104/66 100 07/29/24 08:45 69 9 L 106/75 99 07/29/24 08:30 75 23 99/60 100 07/29/24 08:15 97.7 F 77 15 98/72 100 07/29/24 08:00 70 16 102/65 100 07/29/24 07:45 70 99/62 100 07/29/24 07:30 69 14 111/62 100 07/29/24 07:15 73 15 103/68 99 07/29/24 07:00 73 14 102/63 99 07/29/24 06:45 101/63 99 07/29/24 06:30 71 98/65 100 07/29/24 06:15 71 99/65 100 07/29/24 06:00 79 88/59 100 07/29/24 05:45 75 88/59 100 07/29/24 05:30 69 89/53 100 07/29/24 05:15 77 99/51 07/29/24 05:00 77 99/61 98 07/29/24 04:45 72 28 H 100/49 96 07/29/24 04:30 68 14 96/53 100 07/29/24 04:15 83 21 102/50 97 07/29/24 04:00 98.2 F 93 25 H 98/66 99 07/29/24 03:45 81 16 94/61 98 07/29/24 03:30 77 16 102/57 07/29/24 03:15 15 99/58 100 07/29/24 03:00 86 11 L 101/58 99 07/29/24 02:45 78 18 102/57 98 07/29/24 02:30 77 16 99/60 98 07/29/24 02:15 75 10 L 98/63 07/29/24 02:00 76 16 96/58 99 07/29/24 01:45 75 17 99/56 99 07/29/24 01:30 75 17 94/55 99 07/29/24 01:15 78 23 100/66 99 07/29/24 01:00 79 18 97/56 99 07/29/24 00:45 75 23 97/56 07/29/24 00:33 78 18 97/56 100 07/29/24 00:30 81 19 91/56 99 07/29/24 00:15 78 9 L 99/66 98 07/29/24 00:00 98.1 F 69 22 107/59 99 07/28/24 23:45 70 24 101/55 99 07/28/24 23:30 62 12 93/52 100 07/28/24 23:15 69 20 93/62 99 07/28/24 23:00 67 25 H 93/53 100 07/28/24 22:45 64 23 88/54 99 07/28/24 22:30 67 23 76/45 99 07/28/24 22:15 71 18 84/45 98 07/28/24 22:00 73 16 89/47 98 07/28/24 21:30 82 17 101/78 99 07/28/24 21:00 81 9 L 110/69 99 07/28/24 20:30 79 12 101/68 99 07/28/24 20:00 98.6 F 77 19 100/66 07/28/24 19:30 74 17 100/61 07/28/24 19:00 73 22 84/69 07/28/24 18:30 90 17 91/64 07/28/24 18:00 77 14 96/62 07/28/24 17:30 79 11 L 103/63 07/28/24 17:00 76 16 108/69 07/28/24 16:52 98.0 F 80 17 103/63 07/28/24 16:30 98.0 F 80 10 L 110/64 07/28/24 16:29 82 17 Intake and Output 07/28/24 07/29/24 07/29/24 22:59 06:59 14:59 Intake Total 600 617.022 55 Output Total 950 400 400 Balance -350 217.022 -345 Intake: IV 600 600 30 Sodium Chloride 0.9% 500 500 30 ml 500 ml @ 999 mls/hr IV .Q31M [facility] Rx#:[id number] Vancomycin 1,500 mg In 500 Sodium Chloride 0.9% 500 ml 500 ml @ 167 mls/hr IVPB ONCE ONE Rx#: [id number] metroNIDAZOLE-NS PMX 500 100 100 mg In Saline 1 100ml.bag @ 100 mls/hr IVPB Q8H [facility] Rx#:[id number] Intake, IV Titration 17.022 Amount Norepinephrine 4 mg In 17.022 Sodium Chloride 0.9% 250 ml @ 0.03 MCG/KG/MIN 9. 201 mls/hr IV .Q24H [facility] Rx#:[id number] Oral 25 Output: Urine 0 Stool 950 400 400 Other: Weight 80.5 kg 82.5 kg GENERAL DESCRIPTION: Delayed female lying in bed, no distress. No tachypnea or accessory muscle of respiration use. HEENT: Shows Pallor , no scleral icterus. Oral mucous membrane is dry. NECK: Trachea central, no thyromegaly. LUNGS: Unlabored breathing. Clear to auscultation anteriorly. No wheeze or crackle. HEART: S1, S2, regular rate and rhythm. No loud murmur ABDOMEN: Soft, midline abdominal small wound minimal drainage on the dressing EXTREMITIES: Left upper extremity with significant bruising SKIN: No rash, no masses palpable. NEUROLOGICAL: The patient is awake, alert, oriented x3, mood and affect normal. Results CBC & Chem 7: 07/30/24 03:45 07/30/24 03:45 Labs: Abnormal Lab Results - Last 24 Hours (Table) 07/28/24 07/28/24 07/29/24 Range/Units 18:21 18:21 01:53 RBC 2.01 L 1.95 L (4.10-5.20) 10*6/uL Hgb 7.9 L 7.7 L (12.0-15.0) g/dL Hct 23.3 L 23.1 L (37.2-46.3) % MCV 115.9 H 118.5 H (80.0-97.0) fL MCH 39.3 H 39.5 H (27.0-32.0) pg Immature Gran # 0.05 H (0.00-0.04) 10*3/uL Sodium 132 L (137-145) mmol/L Chloride 97 L (98-107) mmol/L Carbon Dioxide (22-30) mmol/L BUN 51 H (7-17) mg/dL Creatinine 9.57 H* (0.52-1.04) mg/dL Calcium 7.5 L (8.4-10.2) mg/dL Magnesium (1.6-2.3) mg/dL Total Protein (6.3-8.2) g/dL Albumin (3.5-5.0) g/dL 07/29/24 07/29/24 Range/Units 01:53 01:53 RBC (4.10-5.20) 10*6/uL Hgb (12.0-15.0) g/dL Hct (37.2-46.3) % MCV (80.0-97.0) fL MCH (27.0-32.0) pg Immature Gran # (0.00-0.04) 10*3/uL Sodium 132 L (137-145) mmol/L Chloride (98-107) mmol/L Carbon Dioxide 17 L (22-30) mmol/L BUN 55 H (7-17) mg/dL Creatinine 9.87 H* (0.52-1.04) mg/dL Calcium 7.5 L (8.4-10.2) mg/dL Magnesium 1.5 L (1.6-2.3) mg/dL Total Protein 5.6 L (6.3-8.2) g/dL Albumin 2.9 L (3.5-5.0) g/dL Assessment and Plan (1) Abdominal wall abscess Current Visit: Yes Status: Acute Code(s): L02.211 - CUTANEOUS ABSCESS OF ABDOMINAL WALL SNOMED Code(s): 23053178 (2) Allergy to multiple antibiotics Current Visit: Yes Status: Acute Code(s): Z88.1 - ALLERGY STATUS TO OTHER ANTIBIOTIC AGENTS SNOMED Code(s): 115663434 (3) Open abdominal wall wound Current Visit: Yes Status: Acute Code(s): S31.109A - UNSP OPN WND ABD WALL, UNSP Q W/O PENET PERIT CAV, INIT SNOMED Code(s): 628579702 Plan: 1patient with a multiple abdominal surgeries in this patient who did have a history of umbilical hernia surgical repair with a mesh now with some purulent drainage and concern for possible infected mesh the area has been proven by the surgery and culture hematin results will be followed likely gram-positive skin emelina gram-negative infection less likely bilateral excluded. 2patient with multiple antibiotic ALLERGIES that would limit the number of antibiotic safe to use. 3patient will be treated with vancomycin while waiting for the culture to finalize We will follow on clinical condition and cultures to further adjust medication if needed Thank you for this consultation we will follow the patient along with you Dictation was produced using [employer] software. please excuse any grammatical, word or spelling errors. Time with Patient: Greater than 30
--- NOTE | 2024-07-30 11:25 | P.PN ---
Subjective Patient is seen for follow-up for end-stage renal disease. Currently seen on hemodialysis Status post fistulogram which did not show any major abnormalities. No thrombus was noted. Patient clotted her system after about 2-1/2 hours today. We will resume dialysis with heparin. Objective - Vital Signs Vital signs: Vital Signs Temp 97.8 F 07/30/24 04:00 Pulse 60 07/30/24 04:00 Resp 16 07/30/24 04:00 BP 96/68 07/30/24 04:00 Pulse Ox 99 07/30/24 04:00 FiO2 Intake & Output 07/29/24 07/30/24 07/30/24 18:59 06:59 18:59 Intake Total 1025 2240 Output Total 850 1325 Balance 175 915 Weight 83.4 kg Intake: IV 1000 970 Magnesium Sulfate-D5w Pmx 200 1 gm In Dextrose/Water 1 100ml.bag @ 100 mls/hr IVPB Q1H [facility] Rx#: [id number] Sodium Chloride 0.9% 1, 170 770 000 ml @ 70 mls/hr IV . [id number] [facility] Rx#:[id number] Sodium Chloride 0.9% 500 30 ml 500 ml @ 999 mls/hr IV .Q31M [facility] Rx#:[id number] Vancomycin 1,500 mg In 500 Sodium Chloride 0.9% 500 ml 500 ml @ 167 mls/hr IVPB ONCE ONE Rx#: [id number] metroNIDAZOLE-NS PMX 500 100 200 mg In Saline 1 100ml.bag @ 100 mls/hr IVPB Q8H [facility] Rx#:[id number] Intake, IV Titration 70 Amount Sodium Chloride 0.9% 1, 70 000 ml @ 70 mls/hr IV . [id number] [facility] Rx#:[id number] Oral 25 1200 Output: Urine 0 Stool 850 1325 - Exam Patient is awake, comfortable, no acute distress Alert oriented x 3 Examination of the heart S1 and S2 Examination of the lungs bilateral breath sounds are heard Abdomen is soft nontender Examination of lower extremities shows no significant edema Bruising noted at the site of the AV graft [employer] exam grossly intact - Labs CBC & Chem 7: 07/30/24 03:45 07/30/24 03:45 Labs: Abnormal Lab Results - Last 24 Hours (Table) 07/29/24 07/30/24 07/30/24 Range/Units 01:53 03:45 03:45 RBC 1.99 L (4.10-5.20) 10*6/uL Hgb 7.8 L (12.0-15.0) g/dL Hct 23.9 L (37.2-46.3) % MCV 120.1 H (80.0-97.0) fL MCH 39.2 H (27.0-32.0) pg Sodium 135 L (137-145) mmol/L Potassium 5.2 H (3.5-5.1) mmol/L Carbon Dioxide 16 L (22-30) mmol/L BUN 62 H (7-17) mg/dL Creatinine 12.81 H* (0.52-1.04) mg/dL Calcium 8.2 L (8.4-10.2) mg/dL Magnesium 2.4 H (1.6-2.3) mg/dL Hep Bs Antibody A (Negative) Microbiology - Last 24 Hours (Table) 07/28/24 23:51 Blood Culture - Preliminary Blood 07/28/24 23:55 Gram Stain - Preliminary Abdomen Wound Culture - Preliminary Escherichia coli Beta Hemolytic Streptococcus F Assessment and Plan Assessment: 1. End-stage renal disease maintained on hemodialysis on Saturday schedule. Permacath was discontinued last week and patient currently has a left forearm AV graft 2. Infiltration of the left forearm AV graft with thrombus noted on ultrasound and bruising, vascular surgery on consult. Status post fistulogram on 07/29/2024 with no major abnormality noted. 3. CKD mineral bone disorder 4. Hypotension secondary to volume depletion status post IV fluids, cortisol is low at 4.3. Cosyntropin stimulation test will be ordered. 5. History of diverticulitis and bowel resection with colostomy with plans for reversal down the road Plan: Continue with hemodialysis. We will restart the system with heparin Proceed with cosyntropin stimulation test as serum cortisol was on the lower side Repeat hemodialysis in a.m.
--- NOTE | 2024-07-30 12:04 | P.PN ---
Subjective Progress Note Date: 07/30/24 Principal diagnosis: left AV graft thrombosis Patient is a 43-year-old female with past medical history significant for end- stage renal disease (undergoes hemodialysis on a Saturday, Saturday, Saturday schedule), focal segmental glomerulosclerosis, complicated diverticulitis with previous partial colectomy and colostomy. Patient was transferred from [facility] yesterday for vascular surgical services. Reportedly, underwent hemodialysis at outside facility, and there were concerns for possible thrombosis of the left AV graft. Patient was also hypotensive, she was admitted to the intensive care unit. Of note, hemoglobin was 6.9 g/dL at the outside facility, and she did receive 1 unit of PRBCs. Repeat labs from yesterday including a WBC count of 8.3, hemoglobin 7.9, platelets 277. BMP: Sodium 132, potassium 4.8, chloride 97, serum bicarb 24, BUN 51, creatinine 9.57, glucose 93. Patient does have a soft tissue abdominal wound with purulent drainage. Previously started on a combination of Flagyl and vancomycin. Infectious diseases consulted. I did receive a call last night, patient's blood pressure was hypotensive, and recommended norepinephrine to be started. She is currently being evaluated in the intensive care unit. She is alert and oriented. Norepinephrine is infusing at 0.03 mcg/kg/min. Also, previously started on midodrine 10 mg 3 times daily. She is afebrile. Nontachycardic. Blood pressures currently 97/56 mmHg. No nausea or vomiting. Colostomy appears functional. Denies any blood loss from her ostomy bag. No abdominal pain. Does have significant mount of purulent drainage from her abdominal wound. Patient states that she first noticed this back in August,. The patient herself has no specific complaints. Patient was seen today on 07/30/2024, underwent ultrasound-guided left upper extremity cephalic vein access fistulogram yesterday, it showed widely patent outflow without any evidence of thrombus or narrowing or any further concern. A central venogram was performed. Patient is now back in the ICU, patient is undergoing hemodialysis, does not seem to be in any distress. She is hemodynamically stable. Being followed by many consultants including vascular surgery. For her abdominal fistula, patient was seen by Dr. Sherwood. He is recommending eventual mesh removal however he is recommending that to be done in a tertiary care center. For the time being the patient is doing well from our perspective, she does not need to remain in the ICU, I will transfer the patient out of the ICU to medical surgical floor today. WBC count is 7.1 hemoglobin 7.8 electrolytes were reviewed bicarb is 16 BUN is 62 creatinine 12.8 Objective - Vital Signs Vital signs: Vital Signs Temp 97.8 F 07/30/24 04:00 Pulse 60 07/30/24 04:00 Resp 16 07/30/24 04:00 BP 96/68 07/30/24 04:00 Pulse Ox 99 07/30/24 04:00 FiO2 Intake & Output 07/29/24 07/30/24 07/30/24 18:59 06:59 18:59 Intake Total 1025 2240 Output Total 850 1325 Balance 175 915 Weight 83.4 kg Intake: IV 1000 970 Magnesium Sulfate-D5w Pmx 200 1 gm In Dextrose/Water 1 100ml.bag @ 100 mls/hr IVPB Q1H [facility] Rx#: [id number] Sodium Chloride 0.9% 1, 170 770 000 ml @ 70 mls/hr IV . [id number] [facility] Rx#:[id number] Sodium Chloride 0.9% 500 30 ml 500 ml @ 999 mls/hr IV .Q31M [facility] Rx#:[id number] Vancomycin 1,500 mg In 500 Sodium Chloride 0.9% 500 ml 500 ml @ 167 mls/hr IVPB ONCE ONE Rx#: [id number] metroNIDAZOLE-NS PMX 500 100 200 mg In Saline 1 100ml.bag @ 100 mls/hr IVPB Q8H [facility] Rx#:[id number] Intake, IV Titration 70 Amount Sodium Chloride 0.9% 1, 70 000 ml @ 70 mls/hr IV . [id number] [facility] Rx#:[id number] Oral 25 1200 Output: Urine 0 Stool 850 1325 - Exam GENERAL EXAM: Revealed 43-year-old female pleasant in no distress, undergoing hemodialysis during my evaluation HEAD: Normocephalic and atraumatic EYES: Normal reaction of pupils, equal size. NOSE: Clear with pink turbinates. THROAT: No erythema or exudates. NECK: No masses, no JVD. CHEST: No chest wall deformity. LUNGS: Symmetrical chest expansion clear bilaterally no crackles rhonchi or wheezes CVS: S1 and S2 normal with no audible murmur, regular rhythm. No extra heart sounds ABDOMEN: No hepatosplenomegaly, active bowel sounds, no guarding or rigidity. Functional colostomy over the left abdomen SKIN: Soft tissue abdominal wound with areas of induration and erythema and purulent drainage. CENTRAL NERVOUS SYSTEM: Alert oriented x 3 no focal deficit EXTREMITIES: There is no peripheral edema, Left arm ecchymosis, positive bruit and thrill - Labs CBC & Chem 7: 07/30/24 03:45 07/30/24 03:45 Labs: Abnormal Lab Results - Last 24 Hours (Table) 07/29/24 07/30/24 07/30/24 Range/Units 01:53 03:45 03:45 RBC 1.99 L (4.10-5.20) 10*6/uL Hgb 7.8 L (12.0-15.0) g/dL Hct 23.9 L (37.2-46.3) % MCV 120.1 H (80.0-97.0) fL MCH 39.2 H (27.0-32.0) pg Sodium 135 L (137-145) mmol/L Potassium 5.2 H (3.5-5.1) mmol/L Carbon Dioxide 16 L (22-30) mmol/L BUN 62 H (7-17) mg/dL Creatinine 12.81 H* (0.52-1.04) mg/dL Calcium 8.2 L (8.4-10.2) mg/dL Magnesium 2.4 H (1.6-2.3) mg/dL Hep Bs Antibody A (Negative) Microbiology - Last 24 Hours (Table) 07/28/24 23:51 Blood Culture - Preliminary Blood 07/28/24 23:55 Gram Stain - Preliminary Abdomen Wound Culture - Preliminary Escherichia coli Beta Hemolytic Streptococcus F Assessment and Plan Assessment: Impression Malfunctioning left AV graft fistula on initial presentation Transient hypotension secondary to hypovolemia, resolved with fluid boluses End-stage renal disease, maintained on a Saturday, Saturday, Saturday schedule History of focal segmental glomerulosclerosis Acute on chronic anemia, status post 1 PRBC transfusion, repeat hemoglobin up to 7.9 g/dL Chronic soft tissue abdominal wound History of complicated diverticulitis status post sigmoidectomy and colostomy Recommendation: Continue hemodialysis Resume home meds Transfer to medical surgical floor Patient will continue to be followed by multiple including nephrology and vascular surgery Will continue to follow Time with Patient: Less than 30
[2024-07-30] MEDS: COSYNTROPIN 0.25 MG VIAL IVP ONE (12:13)
--- NOTE | 2024-07-30 13:03 | P.PN ---
Subjective Progress Note Date: 07/30/24 Principal diagnosis: Abdominal wound Patient doing about the same today. Denies abdominal pain. Minimal drainage from the abdominal wound site. No fevers. White blood cell count normal. Objective - Vital Signs Vital signs: Vital Signs Temp 97.6 F 07/30/24 12:33 Pulse 60 07/30/24 04:00 Resp 18 07/30/24 12:33 BP 96/46 07/30/24 12:33 Pulse Ox 99 07/30/24 04:00 FiO2 Intake & Output 07/29/24 07/30/24 07/30/24 18:59 06:59 18:59 Intake Total 1025 2240 800 Output Total 850 1325 1800 Balance 175 915 -1000 Weight 83.4 kg Intake: IV 1000 970 Magnesium Sulfate-D5w Pmx 200 1 gm In Dextrose/Water 1 100ml.bag @ 100 mls/hr IVPB Q1H [facility] Rx#: [id number] Sodium Chloride 0.9% 1, 170 770 000 ml @ 70 mls/hr IV . [id number] [facility] Rx#:[id number] Sodium Chloride 0.9% 500 30 ml 500 ml @ 999 mls/hr IV .Q31M ONE Rx#:[id number] Vancomycin 1,500 mg In 500 Sodium Chloride 0.9% 500 ml 500 ml @ 167 mls/hr IVPB ONCE ONE Rx#: [id number] metroNIDAZOLE-NS PMX 500 100 200 mg In Saline 1 100ml.bag @ 100 mls/hr IVPB Q8H [facility] Rx#:[id number] Intake, IV Titration 70 Amount Sodium Chloride 0.9% 1, 70 000 ml @ 70 mls/hr IV . [id number] [facility] Rx#:[id number] Oral 25 1200 Hemodialysis 800 Output: Urine 0 Stool 850 1325 Hemodialysis 1300 Hemodialysis Net Amount 500 - Exam Abdomen: Soft, nondistended, 1 cm wound along incision, minimal drainage, no erythema, nontender - Labs CBC & Chem 7: 07/30/24 03:45 07/30/24 03:45 Labs: Abnormal Lab Results - Last 24 Hours (Table) 07/29/24 07/30/24 07/30/24 Range/Units 01:53 03:45 03:45 RBC 1.99 L (4.10-5.20) 10*6/uL Hgb 7.8 L (12.0-15.0) g/dL Hct 23.9 L (37.2-46.3) % MCV 120.1 H (80.0-97.0) fL MCH 39.2 H (27.0-32.0) pg Sodium 135 L (137-145) mmol/L Potassium 5.2 H (3.5-5.1) mmol/L Carbon Dioxide 16 L (22-30) mmol/L BUN 62 H (7-17) mg/dL Creatinine 12.81 H* (0.52-1.04) mg/dL Calcium 8.2 L (8.4-10.2) mg/dL Magnesium 2.4 H (1.6-2.3) mg/dL Hep Bs Antibody A (Negative) Microbiology - Last 24 Hours (Table) 07/28/24 23:51 Blood Culture - Preliminary Blood 07/28/24 23:55 Gram Stain - Preliminary Abdomen Wound Culture - Preliminary Escherichia coli Beta Hemolytic Streptococcus F Assessment and Plan (1) Open abdominal wall wound Narrative/Plan: Patient with small wound at the surgical site. Patient with chronically infected mesh prosthetic from previous hernia repair. Patient and I discussed options once again. Anticipate follow-up with her colorectal surgery team with consideration for mesh removal at the time of ostomy reversal. She will follow- up with colorectal surgery postdischarge. I will be out of town until Saturday. Will sign off. Please reconsult surgical services if needed. Current Visit: Yes Status: Acute Code(s): S31.109A - UNSP OPN WND ABD WALL, UNSP Q W/O PENET PERIT CAV, INIT SNOMED Code(s): 058321549
[2024-07-30] MEDS: AZTREONAM 2 GM in SODIUM CHLORIDE 0.9% 100 ML IVPB SCH (13:37)
[2024-07-30] MEDS: VANCOMYCIN 1,250 MG in SODIUM CHLORIDE 0.9% 250 ML IVPB ONE (13:52)
[2024-07-30 15:18] LABS: Hepatitis B Surface Antigen Nonreactive (Nonreactive)
--- NOTE | 2024-07-30 19:56 | P.PN ---
Subjective Progress Note Date: 07/30/24 Principal diagnosis: Reason for follow-up is abdominal wound infection Patient is a 43-year-old female with a past medical history significant for hypertension seizure disorder end-stage renal disease on dialysis patient also have a multiple abdominal surgery including umbilical hernia repair with preperitoneal mesh placement with recent admission to outside facility with hypotension subsequently transferred to this facility for the left arm loop graft site clotting slight bruising with a culture from abdominal wound and concerning for cellulitis. On today's evaluation that is 07/30/2024, the patient continues to be afebrile, the patient is on room air and breathing comfortably, the Pt denies having any chest pain or cough, the patient denies having any abdominal pain no vomiting or any diarrhea. Patient white count 7.10, creatinine is 12.81 local culture growing strep and E. coli Objective - Vital Signs Vital signs: Vital Signs Temp 97.6 F 07/30/24 12:33 Pulse 93 07/30/24 14:00 Resp 11 L 07/30/24 14:00 BP 100/64 07/30/24 14:00 Pulse Ox 98 07/30/24 12:00 FiO2 Intake & Output 07/29/24 07/30/24 07/30/24 18:59 06:59 18:59 Intake Total 1025 2240 2300 Output Total 850 1325 2200 Balance 175 915 100 Weight 83.4 kg Intake: IV 4507 569 0110 Aztreonam 2 gm In Sodium 100 Chloride 0.9% 100 ml @ 33 .3 mls/hr IVPB Q24HR [facility] Rx#:[id number] Magnesium Sulfate-D5w Pmx 200 1 gm In Dextrose/Water 1 100ml.bag @ 100 mls/hr IVPB Q1H [facility] Rx#: [id number] Sodium Chloride 0.9% 1, 170 770 440 000 ml @ 70 mls/hr IV . [id number] [facility] Rx#:[id number] Sodium Chloride 0.9% 500 30 ml 500 ml @ 999 mls/hr IV .Q31M [facility] Rx#:[id number] Vancomycin 1,500 mg In 500 500 Sodium Chloride 0.9% 500 ml 500 ml @ 167 mls/hr IVPB ONCE [facility] Rx#: [id number] metroNIDAZOLE-NS PMX 500 100 200 100 mg In Saline 1 100ml.bag @ 100 mls/hr IVPB Q8H [facility] Rx#:[id number] Intake, IV Titration 70 Amount Sodium Chloride 0.9% 1, 70 000 ml @ 70 mls/hr IV . [id number] [facility] Rx#:[id number] Oral 25 1200 360 Hemodialysis 800 Output: Urine 0 Stool 850 1325 400 Hemodialysis 1300 Hemodialysis Net Amount 500 - Exam GENERAL DESCRIPTION: Middle-age female lying in bed in no distress RESPIRATORY SYSTEM: Unlabored breathing , decreased breath sounds at bases HEART: S1 S2 regular rate and rhythm , ABDOMEN: Soft , no tenderness EXTREMITIES: No edema feet - Labs CBC & Chem 7: 07/30/24 03:45 07/30/24 03:45 Labs: Abnormal Lab Results - Last 24 Hours (Table) 07/29/24 07/30/24 07/30/24 Range/Units 01:53 03:45 03:45 RBC 1.99 L (4.10-5.20) 10*6/uL Hgb 7.8 L (12.0-15.0) g/dL Hct 23.9 L (37.2-46.3) % MCV 120.1 H (80.0-97.0) fL MCH 39.2 H (27.0-32.0) pg Sodium 135 L (137-145) mmol/L Potassium 5.2 H (3.5-5.1) mmol/L Carbon Dioxide 16 L (22-30) mmol/L BUN 62 H (7-17) mg/dL Creatinine 12.81 H* (0.52-1.04) mg/dL Calcium 8.2 L (8.4-10.2) mg/dL Magnesium 2.4 H (1.6-2.3) mg/dL Hep Bs Antibody A (Negative) Microbiology - Last 24 Hours (Table) 07/28/24 23:51 Blood Culture - Preliminary Blood 07/28/24 23:55 Gram Stain - Preliminary Abdomen Wound Culture - Preliminary Escherichia coli Beta Hemolytic Streptococcus F Assessment and Plan (1) Abdominal wall abscess Current Visit: Yes Status: Acute Code(s): L02.211 - CUTANEOUS ABSCESS OF ABDOMINAL WALL SNOMED Code(s): 96564833 (2) Allergy to multiple antibiotics Current Visit: Yes Status: Acute Code(s): Z88.1 - ALLERGY STATUS TO OTHER ANTIBIOTIC AGENTS SNOMED Code(s): 998770415 (3) Open abdominal wall wound Current Visit: Yes Status: Acute Code(s): S31.109A - UNSP OPN WND ABD WALL, UNSP Q W/O PENET PERIT CAV, INIT SNOMED Code(s): 016457321 Plan: 1patient with a multiple abdominal surgeries in this patient who did have a history of umbilical hernia surgical repair with a mesh now with some purulent drainage and concern for possible infected mesh the area has been proven by the surgery and culture hematin results will be followed likely gram-positive skin emelina gram-negative infection less likely bilateral excluded. 2patient with multiple antibiotic ALLERGIES that would limit the number of antibiotic safe to use. 3patient culture now growing E. coli in addition to strep keeping in mind her allergies we will add Azactam to cover for the E. coli continue with the vancomycin to cover for the strep we will also like to obtain a CT of abdominal pelvis to make sure no evidence of any deeper infection that may need to be drained Dictation was produced using [email or web address] dictation software. please excuse any grammatical, word or spelling errors. Time with Patient: Less than 30
--- NOTE | 2024-07-30 21:31 | P.PN ---
Subjective Progress Note Date: 07/30/24 This is a 43-year-old female with medical history significant for end-stage renal disease maintained on hemodialysis, hypertension, seizure disorder, anemia, focal segmental glomerulosclerosis. Patient has had multiple abdominal surgeries and currently has an ileostomy in place. She has history of umbilical hernia repair with mesh; and history of diverticulitis; cholecystitis. She is also a former smoker. Patient is transferred over from [facility] for vascular consultation. Patient has had a loop graft in the past that was occluded. Back in April patient underwent a left fistula formation. She has been using this for hemodialysis without issues. Her permacatheter was pulled on Saturday while at [facility] as the fistula has been used for hemodialysis. She was then found to have an occluded graft. Patient currently does not have access for hemodialysis. Patient was in the intensive care unit at [facility] she was admitted secondary to hypotension and had been maintained on normal saline fluid. She is admitted to the intensive care unit today with start on a low-dose of Levophed secondary to decreased blood pressures which have improved at this time and Levophed is currently on hold. Additionally she is having some purulent drainage from her umbilical area. This was apparently debrided outpatient by her colorectal team with plans to discuss mass removal at the time for ileostomy reversal. Her surgeon has started her oral doxycycline in the office last week because of this drainage from her abdominal wound. She states that they did not take cultures. Upon admission to this hospital cultures of the wound were taken and patient was started on IV antibiotic therapy in the form of vancomycin and Flagyl with an infectious disease consultation. General surgery was also consulted. 07/30/2024 Patient is evaluated today in follow up in the ICU. Currently off pressor support. Patient underwent fistulogram with findings of a patient AV fistula in the left. Patient currently undergoing hemodialysis. Blood pressure in the 90s systolic and remains off pressor support at this time. Preliminary wound culture showing E.Coli and beta hemolytic streptococcus F. Currently on IV metronidazole and IV aztreonam. ID following. Labs today showing white blood cell count 7.10, hgb 7.8, sodium 135, potassium 5.2, BUN 62, creatinine 12.81. Review of Systems Constitutional: Denied any fatigue denied any fever. Cardio vascular: denied any chest pain, palpitations Gastrointestinal: denied any nausea, vomiting, diarrhea Pulmonary: Denied any shortness of breath cough Neurologic denied any new focal deficits All inpatient medications were reviewed and appropriate changes in these medications as dictated in the interval history and assessment and plan. PHYSICAL EXAMINATION: GENERAL: The patient is alert and oriented x3, not in any acute distress. Well developed, well nourished. HEENT: Pupils are round and equally reacting to light. EOMI. No scleral icterus. No conjunctival pallor. Normocephalic, atraumatic. No pharyngeal erythema. No thyromegaly. CARDIOVASCULAR: S1 and S2 present. No murmurs, rubs, or gallops. PULMONARY: Chest is clear to auscultation, no wheezing or crackles. ABDOMEN: Soft, nontender, nondistended, normoactive bowel sounds. No palpable organomegaly. Purulent drainage from the umbilicus MUSCULOSKELETAL: No joint swelling or deformity. EXTREMITIES: No cyanosis, clubbing, or pedal edema. NEUROLOGICAL: Gross neurological examination did not reveal any focal deficits. SKIN: No rashes. 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 History of hernia repair with mesh Seizure disorder Chronic anemia Focal segmental glomerulosclerosis Hypomagnesemia Former smoker GI prophylaxis DVT prophylaxis Full code Plan Continue hemodialysis per nephrology Nephrology consultation Vascular consultation Small abdominal wound possibly due to infected mesh from her hernia repair in the past General surgery following with plans to see her colorectal surgeon outpatient Resume appropriate home medications Gentle hydration wound cultures have been taken of her abdominal wound and started on IV antibiotics Infectious disease consultation Abdominal/pelvis CT in the AM The impression and plan of care has been dictated by Roberta Miguel, Nurse Practitioner as directed. Dr. Yuki MD I have performed a history and physical examination and medical decision making of this patient, discussed the same with the dictator, and agree with the dictators assessment and plan as written, documented as a scribe. Based on total visit time, I have performed more than 50% of this visit. Objective - Vital Signs Vital signs: Vital Signs Temp 97.8 F 07/30/24 04:00 Pulse 60 07/30/24 04:00 Resp 16 07/30/24 04:00 BP 96/68 07/30/24 04:00 Pulse Ox 99 07/30/24 04:00 FiO2 Intake & Output 07/29/24 07/30/24 07/30/24 18:59 06:59 18:59 Intake Total 1025 2240 Output Total 850 1325 Balance 175 915 Weight 83.4 kg Intake: IV 1000 970 Magnesium Sulfate-D5w Pmx 200 1 gm In Dextrose/Water 1 100ml.bag @ 100 mls/hr IVPB Q1H [facility] Rx#: [id number] Sodium Chloride 0.9% 1, 170 770 000 ml @ 70 mls/hr IV . [id number] [facility] Rx#:[id number] Sodium Chloride 0.9% 500 30 ml 500 ml @ 999 mls/hr IV .Q31M [facility] Rx#:[id number] Vancomycin 1,500 mg In 500 Sodium Chloride 0.9% 500 ml 500 ml @ 167 mls/hr IVPB ONCE [facility] Rx#: [id number] metroNIDAZOLE-NS PMX 500 100 200 mg In Saline 1 100ml.bag @ 100 mls/hr IVPB Q8H [facility] Rx#:[id number] Intake, IV Titration 70 Amount Sodium Chloride 0.9% 1, 70 000 ml @ 70 mls/hr IV . [id number] [facility] Rx#:[id number] Oral 25 1200 Output: Urine 0 Stool 850 1325 - Labs CBC & Chem 7: 07/30/24 03:45 07/30/24 03:45 Labs: Abnormal Lab Results - Last 24 Hours (Table) 07/29/24 07/30/24 07/30/24 Range/Units 01:53 03:45 03:45 RBC 1.99 L (4.10-5.20) 10*6/uL Hgb 7.8 L (12.0-15.0) g/dL Hct 23.9 L (37.2-46.3) % MCV 120.1 H (80.0-97.0) fL MCH 39.2 H (27.0-32.0) pg Sodium 135 L (137-145) mmol/L Potassium 5.2 H (3.5-5.1) mmol/L Carbon Dioxide 16 L (22-30) mmol/L BUN 62 H (7-17) mg/dL Creatinine 12.81 H* (0.52-1.04) mg/dL Calcium 8.2 L (8.4-10.2) mg/dL Magnesium 1.5 L 2.4 H (1.6-2.3) mg/dL Microbiology - Last 24 Hours (Table) 07/28/24 23:51 Blood Culture - Preliminary Blood 07/28/24 23:55 Gram Stain - Preliminary Abdomen Wound Culture - Preliminary Escherichia coli Beta Hemolytic Streptococcus F Assessment and Plan Time with Patient: Less than 30
[2024-07-31 05:02] LABS: HCT 22.1 % (37.2-46.3); MCH 38.3 pg (27.0-32.0); MCHC 31.7 g/dL (32.0-37.0); Mean Platelet Volume 9.6 fL (9.5-12.2); Platelet Count 216 10*3/uL (140-440); RBC 1.83 10*6/uL (4.10-5.20); RDW 20.5 % (11.5-14.5); WBC 6.16 10*3/uL (4.50-10.00)
[2024-07-31 05:09] LABS: MCV 120.8 fL (80.0-97.0)
[2024-07-31 05:18] LABS: African American GFR (CKD) 8 (>60 ml/min/1.73 sqM); Anion Gap 11 mmol/L; Blood Urea Nitrogen 30 mg/dL (7-17); Calcium 7.8 mg/dL (8.4-10.2); Carbon Dioxide 25 mmol/L (22-30); Chloride 97 mmol/L (98-107); Glucose 79 mg/dL (74-99); Non-African American GFR(CKD) 7 (>60 ml/min/1.73 sqM); Potassium 4.4 mmol/L (3.5-5.1); Sodium 133 mmol/L (137-145)
[2024-07-31] MEDS: IOPAMIDOL CONTRAST (ORAL USE) VIAL PO PRN (06:25)
--- NOTE | 2024-07-31 08:32 | CT ---
EXAMINATION TYPE: CT abdomen pelvis wo con DATE OF EXAM: 07/31/2024 8:13 AM COMPARISON: 11/05/2023 CLINICAL INDICATION: Female, 43 years old with history of Abdominal wall wound rule out abscess, TECHNIQUE: Axial images with sagittal coronal reformats. Examination of the solid and hollow viscera is limited given the lack of contrast. CT DLP: 682.9 mGycm, Automated exposure control for dose reduction was used. FINDINGS: LUNG BASES: No evidence for nodule. No evidence for infiltrate. LIVER/GB: The gallbladder is surgically absent. No space-occupying hepatic lesion. PANCREAS: No pancreatic mass identified. No inflammatory process seen. SPLEEN: No evidence for splenomegaly. No intrasplenic lesions seen. ADRENALS: No adrenal nodules identified. No evidence for thickening. KIDNEYS: Atrophic changes of the kidneys. Bilateral left renal lithiasis. No evidence for renal mass. No hydronephrosis. BOWEL: Left lower quadrant ostomy. Postsurgical changes about the small bowel. No evidence of bowel o bstruction or free air. Lymph nodes: No evidence for adenopathy greater than 1 cm. Abdominal aorta: Atheromatous changes seen. No evidence for aneurysm. Genital organs: Lobulated uterus may reflect underlying leiomyomatous change. No definite ovarian mas s. No free fluid. Other: Postoperative changes of the anterior wall at its midline below the level of the umbilicus dem onstrates phlegmon/scar tissue without drainable abscess. Please note the lack of contrast does limit evaluation. Correlate clinically. IMPRESSION: 1.Postoperative changes of the anterior wall at its midline below the level of the umbilicus demonstr ates phlegmon/scar tissue without drainable abscess. Please note the lack of contrast does limit eval uation. Correlate clinically. Consider ultrasound to exclude fluid collection. 2. Atrophic changes of the kidneys with bilateral nonobstructing nephrolithiasis. [facility], , 07/31/2024 8:30 AM
--- NOTE | 2024-07-31 10:10 | P.PN ---
Subjective Progress Note Date: 07/31/24 Principal diagnosis: Reason for follow-up is abdominal wound infection Patient is a 43-year-old female with a past medical history significant for hypertension seizure disorder end-stage renal disease on dialysis patient also have a multiple abdominal surgery including umbilical hernia repair with preperitoneal mesh placement with recent admission to outside facility with hypotension subsequently transferred to this facility for the left arm loop graft site clotting slight bruising with a culture from abdominal wound and concerning for cellulitis. On today's evaluation that is 07/31/2024, Patient is afebrile patient is currently on room air and denies having any shortness of breath, the patient denies any chest pain or cough, the patient denies any nausea vomiting did not have any abdominal pain and no diarrhea. Patient white count 6.[address] abdominal pelvis did not show any abdominal wall or intra-abdominal abscess Objective - Vital Signs Vital signs: Vital Signs Temp 98.0 F 07/30/24 20:00 Pulse 68 07/31/24 08:00 Resp 18 07/31/24 08:00 BP 100/58 07/31/24 08:00 Pulse Ox 95 07/31/24 08:00 FiO2 Intake & Output 07/30/24 07/31/24 07/31/24 18:59 06:59 18:59 Intake Total 2360 1520 20 Output Total 2545 600 0 Balance -185 920 20 Weight 83.2 kg Intake: IV 1200 320 20 Aztreonam 2 gm In Sodium 100 Chloride 0.9% 100 ml @ 33 .3 mls/hr IVPB Q24HR [facility] Rx#:[id number] Sodium Chloride 0.9% 1, 500 120 20 000 ml @ 20 mls/hr IV . Q24H [facility] Rx#:[id number] Vancomycin 1,500 mg In 500 Sodium Chloride 0.9% 500 ml 500 ml @ 167 mls/hr IVPB ONCE ONE Rx#: [id number] metroNIDAZOLE-NS PMX 500 100 200 mg In Saline 1 100ml.bag @ 100 mls/hr IVPB Q8H [facility] Rx#:[id number] Oral 360 1200 Hemodialysis 800 Output: Urine 0 0 0 Stool 745 600 Hemodialysis 1300 Hemodialysis Net Amount 500 - Exam GENERAL DESCRIPTION: Middle-age female lying in bed in no distress RESPIRATORY SYSTEM: Unlabored breathing , decreased breath sounds at bases HEART: S1 S2 regular rate and rhythm , ABDOMEN: Soft , no tenderness, minimal drainage from the small wound no s urrounding redness EXTREMITIES: No edema feet - Labs CBC & Chem 7: 07/31/24 04:46 07/31/24 04:37 Labs: Abnormal Lab Results - Last 24 Hours (Table) 07/29/24 07/30/24 07/31/24 Range/Units 01:53 13:15 04:37 RBC (4.10-5.20) 10*6/uL Hgb (12.0-15.0) g/dL Hct (37.2-46.3) % MCV (80.0-97.0) fL MCH (27.0-32.0) pg MCHC (32.0-37.0) g/dL Sodium 133 L (137-145) mmol/L Chloride 97 L (98-107) mmol/L BUN 30 H (7-17) mg/dL Creatinine 6.65 H (0.52-1.04) mg/dL Calcium 7.8 L (8.4-10.2) mg/dL Cortisol 30.7 H (3.1-22.4) UG/DL Hep Bs Antibody A (Negative) 07/31/24 Range/Units 04:46 RBC 1.83 L (4.10-5.20) 10*6/uL Hgb 7.0 L (12.0-15.0) g/dL Hct 22.1 L (37.2-46.3) % MCV 120.8 H (80.0-97.0) fL MCH 38.3 H (27.0-32.0) pg MCHC 31.7 L (32.0-37.0) g/dL Sodium (137-145) mmol/L Chloride (98-107) mmol/L BUN (7-17) mg/dL Creatinine (0.52-1.04) mg/dL Calcium (8.4-10.2) mg/dL Cortisol (3.1-22.4) UG/DL Hep Bs Antibody (Negative) Microbiology - Last 24 Hours (Table) 07/28/24 23:51 Blood Culture - Preliminary Blood 07/28/24 23:55 Anaerobic Culture - Final Abdomen Anaerobic Gm Negative Bacilli 07/28/24 23:55 Gram Stain - Final Abdomen Wound Culture - Final Escherichia coli Beta Hemolytic Streptococcus F Assessment and Plan (1) Abdominal wall abscess Current Visit: Yes Status: Acute Code(s): L02.211 - CUTANEOUS ABSCESS OF ABDOMINAL WALL SNOMED Code(s): 78080177 (2) Allergy to multiple antibiotics Current Visit: Yes Status: Acute Code(s): Z88.1 - ALLERGY STATUS TO OTHER ANTIBIOTIC AGENTS SNOMED Code(s): 722866288 (3) Open abdominal wall wound Current Visit: Yes Status: Acute Code(s): S31.109A - UNSP OPN WND ABD WALL, UNSP Q W/O PENET PERIT CAV, INIT SNOMED Code(s): 411702109 Plan: 1patient with a multiple abdominal surgeries in this patient who did have a history of umbilical hernia surgical repair with a mesh now with some purulent drainage and concern for possible infected mesh the area has been proven by the surgery and culture hematin results will be followed likely gram-positive skin emelina gram-negative infection less likely bilateral excluded. 2patient with multiple antibiotic ALLERGIES that would limit the number of antibiotic safe to use. 3patient culture now growing E. coli in addition to strep, patient did have CT of abdominal pelvis did not mention any intra-abdominal or abdominal wall abscess 4patient mention allergy to cefazolin and Zosyn however mention says that she has taken Augmentin without any problem patient will be started on oral Augmentin while in here and if she tolerates plan is for 2-week course of oral Augmentin on discharge till the patient can follow-up with her surgeon Dictation was produced using [employer] dictation software. please excuse any grammatical, word or spelling errors. Time with Patient: Less than 30
[2024-07-31] MEDS: AMOXIC-POT CLAV 500-125 MG 1 EACH TAB PO SCH (11:36)
--- NOTE | 2024-07-31 11:57 | P.PN ---
Subjective Progress Note Date: 07/31/24 Principal diagnosis: left AV graft thrombosis Patient is a 43-year-old female with past medical history significant for end- stage renal disease (undergoes hemodialysis on a Saturday, Saturday, Saturday schedule), focal segmental glomerulosclerosis, complicated diverticulitis with previous partial colectomy and colostomy. Patient was transferred from [facility] yesterday for vascular surgical services. Reportedly, underwent hemodialysis at outside facility, and there were concerns for possible thrombosis of the left AV graft. Patient was also hypotensive, she was admitted to the intensive care unit. Of note, hemoglobin was 6.9 g/dL at the outside facility, and she did receive 1 unit of PRBCs. Repeat labs from yesterday including a WBC count of 8.3, hemoglobin 7.9, platelets 277. BMP: Sodium 132, potassium 4.8, chloride 97, serum bicarb 24, BUN 51, creatinine 9.57, glucose 93. Patient does have a soft tissue abdominal wound with purulent drainage. Previously started on a combination of Flagyl and vancomycin. Infectious diseases consulted. I did receive a call last night, patient's blood pressure was hypotensive, and recommended norepinephrine to be started. She is currently being evaluated in the intensive care unit. She is alert and oriented. Norepinephrine is infusing at 0.03 mcg/kg/min. Also, previously started on midodrine 10 mg 3 times daily. She is afebrile. Nontachycardic. Blood pressures currently 97/56 mmHg. No nausea or vomiting. Colostomy appears functional. Denies any blood loss from her ostomy bag. No abdominal pain. Does have significant mount of purulent drainage from her abdominal wound. Patient states that she first noticed this back in August,. The patient herself has no specific complaints. Patient was seen today on 07/30/2024, underwent ultrasound-guided left upper extremity cephalic vein access fistulogram yesterday, it showed widely patent outflow without any evidence of thrombus or narrowing or any further concern. A central venogram was performed. Patient is now back in the ICU, patient is undergoing hemodialysis, does not seem to be in any distress. She is hemodynamically stable. Being followed by many consultants including vascular surgery. For her abdominal fistula, patient was seen by Dr. Sherwood. He is recommending eventual mesh removal however he is recommending that to be done in a tertiary care center. For the time being the patient is doing well from our perspective, she does not need to remain in the ICU, I will transfer the patient out of the ICU to medical surgical floor today. WBC count is 7.1 hemoglobin 7.8 electrolytes were reviewed bicarb is 16 BUN is 62 creatinine 12.8 Patient was seen today on 07/31/2024, patient seems to be doing quite well, no major issues in the last 24 hours, patient is relatively asymptomatic, she was seen by infectious disease and she was placed on antibiotics for her abdominal fistula. The plan is to consider transitioning her IV antibiotics to oral antibiotics and that is to be decided by infectious disease on the case, in the meantime I plan to transfer the patient out of the ICU to medical surgical floor. Patient is on room air, not in any distress, her WBC count is 6.16 hemoglobin is 7 electrolytes are normal BUN is 30 creatinine 6.65 Objective - Vital Signs Vital signs: Vital Signs Temp 98.0 F 07/30/24 20:00 Pulse 68 07/31/24 08:00 Resp 18 07/31/24 08:00 BP 100/58 07/31/24 08:00 Pulse Ox 95 07/31/24 08:00 FiO2 Intake & Output 07/30/24 07/31/24 07/31/24 18:59 06:59 18:59 Intake Total 2360 1520 120 Output Total 2545 600 900 Balance -185 920 -780 Weight 83.2 kg Intake: IV 1200 320 120 Aztreonam 2 gm In Sodium 100 Chloride 0.9% 100 ml @ 33 .3 mls/hr IVPB Q24HR [facility] Rx#:[id number] Sodium Chloride 0.9% 1, 500 120 20 000 ml @ 20 mls/hr IV . Q24H [facility] Rx#:[id number] Vancomycin 1,500 mg In 500 Sodium Chloride 0.9% 500 ml 500 ml @ 167 mls/hr IVPB ONCE ONE Rx#: [id number] metroNIDAZOLE-NS PMX 500 100 200 100 mg In Saline 1 100ml.bag @ 100 mls/hr IVPB Q8H [facility] Rx#:[id number] Oral 360 1200 Hemodialysis 800 Output: Gastric Drainage 400 Urine 0 0 0 Stool 745 600 500 Hemodialysis 1300 Hemodialysis Net Amount 500 - Exam GENERAL EXAM: Revealed 43-year-old female pleasant in no distress, on room air HEAD: Normocephalic and atraumatic EYES: Normal reaction of pupils, equal size. NOSE: Clear with pink turbinates. THROAT: No erythema or exudates. NECK: No masses, no JVD. CHEST: No chest wall deformity. LUNGS: Symmetrical chest expansion clear bilaterally no crackles rhonchi or wheezes CVS: S1 and S2 normal with no audible murmur, regular rhythm. No extra heart sounds ABDOMEN: No hepatosplenomegaly, active bowel sounds, no guarding or rigidity. Functional colostomy over the left abdomen SKIN: Soft tissue abdominal wound with areas of induration and erythema and purulent drainage. CENTRAL NERVOUS SYSTEM: Alert oriented x 3 no focal deficit EXTREMITIES: There is no peripheral edema, Left arm ecchymosis, positive bruit and thrill - Labs CBC & Chem 7: 07/31/24 04:46 07/31/24 04:37 Labs: Abnormal Lab Results - Last 24 Hours (Table) 07/30/24 07/31/24 07/31/24 Range/Units 13:15 04:37 04:46 RBC 1.83 L (4.10-5.20) 10*6/uL Hgb 7.0 L (12.0-15.0) g/dL Hct 22.1 L (37.2-46.3) % MCV 120.8 H (80.0-97.0) fL MCH 38.3 H (27.0-32.0) pg MCHC 31.7 L (32.0-37.0) g/dL Sodium 133 L (137-145) mmol/L Chloride 97 L (98-107) mmol/L BUN 30 H (7-17) mg/dL Creatinine 6.65 H (0.52-1.04) mg/dL Calcium 7.8 L (8.4-10.2) mg/dL Cortisol 30.7 H (3.1-22.4) UG/DL Microbiology - Last 24 Hours (Table) 07/28/24 23:51 Blood Culture - Preliminary Blood 07/28/24 23:55 Anaerobic Culture - Final Abdomen Anaerobic Gm Negative Bacilli 07/28/24 23:55 Gram Stain - Final Abdomen Wound Culture - Final Escherichia coli Beta Hemolytic Streptococcus F Assessment and Plan Assessment: Impression Malfunctioning left AV graft fistula on initial presentation Transient hypotension secondary to hypovolemia, resolved with fluid boluses End-stage renal disease, maintained on a Saturday, Saturday, Saturday schedule History of focal segmental glomerulosclerosis Acute on chronic anemia, status post 1 PRBC transfusion, repeat hemoglobin up to 7.9 g/dL Chronic soft tissue abdominal wound History of complicated diverticulitis status post sigmoidectomy and colostomy Recommendation: Continue present supportive care measures Consider discharge planning if cleared by other consultants Infectious disease to address her antibiotics and possibly transition to oral antibiotics Transfer to medical surgical floor Will continue to follow Time with Patient: Less than 30
--- NOTE | 2024-07-31 14:47 | P.PN ---
Subjective Progress Note Date: 07/31/24 This is a 43-year-old female with medical history significant for end-stage renal disease maintained on hemodialysis, hypertension, seizure disorder, anemia, focal segmental glomerulosclerosis. Patient has had multiple abdominal surgeries and currently has an ileostomy in place. She has history of umbilical hernia repair with mesh; and history of diverticulitis; cholecystitis. She is also a former smoker. Patient is transferred over from [facility] for vascular consultation. Patient has had a loop graft in the past that was occluded. Back in April patient underwent a left fistula formation. She has been using this for hemodialysis without issues. Her permacatheter was pulled on Saturday while at [facility] as the fistula has been used for hemodialysis. She was then found to have an occluded graft. Patient currently does not have access for hemodialysis. Patient was in the intensive care unit at [facility] she was admitted secondary to hypotension and had been maintained on normal saline fluid. She is admitted to the intensive care unit today with start on a low-dose of Levophed secondary to decreased blood pressures which have improved at this time and Levophed is currently on hold. Additionally she is having some purulent drainage from her umbilical area. This was apparently debrided outpatient by her colorectal team with plans to discuss mass removal at the time for ileostomy reversal. Her surgeon has started her oral doxycycline in the office last week because of this drainage from her abdominal wound. She states that they did not take cultures. Upon admission to this hospital cultures of the wound were taken and patient was started on IV antibiotic therapy in the form of vancomycin and Flagyl with an infectious disease consultation. General surgery was also consulted. 07/30/2024 Patient is evaluated today in follow up in the ICU. Currently off pressor support. Patient underwent fistulogram with findings of a patient AV fistula in the left. Patient currently undergoing hemodialysis. Blood pressure in the 90s systolic and remains off pressor support at this time. Preliminary wound culture showing E.Coli and beta hemolytic streptococcus F. Currently on IV metronidazole and IV aztreonam. ID following. Labs today showing white blood cell count 7.10, hgb 7.8, sodium 135, potassium 5.2, BUN 62, creatinine 12.81. 07/31/2024 Patient is evaluated today in follow up in the ICU. Patient is pending hemodialysis today per her usual MWF scheduled. She missed her chair time. ID recommending course of oral augmentin on DC for the abdominal wound and patient was given first dose in the hospital and so far tolerating. Abdominal pelvis CT is negative for draineable abscess. She is unable to get a ride home later this evening and has not been dialyzed yet today. Hemoglobin 7.0. Review of Systems Constitutional: Denied any fatigue denied any fever. Cardio vascular: denied any chest pain, palpitations Gastrointestinal: denied any nausea, vomiting, diarrhea Pulmonary: Denied any shortness of breath cough Neurologic denied any new focal deficits All inpatient medications were reviewed and appropriate changes in these medications as dictated in the interval history and assessment and plan. PHYSICAL EXAMINATION: GENERAL: The patient is alert and oriented x3, not in any acute distress. Well developed, well nourished. HEENT: Pupils are round and equally reacting to light. EOMI. No scleral icterus. No conjunctival pallor. Normocephalic, atraumatic. No pharyngeal erythema. No thyromegaly. CARDIOVASCULAR: S1 and S2 present. No murmurs, rubs, or gallops. PULMONARY: Chest is clear to auscultation, no wheezing or crackles. ABDOMEN: Soft, nontender, nondistended, normoactive bowel sounds. No palpable organomegaly. Purulent drainage from the umbilicus MUSCULOSKELETAL: No joint swelling or deformity. EXTREMITIES: No cyanosis, clubbing, or pedal edema. NEUROLOGICAL: Gross neurological examination did not reveal any focal deficits. SKIN: No rashes. 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 History of hernia repair with mesh Seizure disorder Chronic anemia Focal segmental glomerulosclerosis Hypomagnesemia Former smoker GI prophylaxis DVT prophylaxis Full code Plan Continue hemodialysis per nephrology Nephrology consultation Vascular consultation Small abdominal wound possibly due to infected mesh from her hernia repair in the past Will DC on course of oral augmentin General surgery following with plans to see her colorectal surgeon outpatient Resume appropriate home medications Gentle hydration Infectious disease consultation DC home in the next 24 hours The impression and plan of care has been dictated by Roberta Miguel, Nurse Practitioner as directed. Dr. Yuki MD I have performed a history and physical examination and medical decision making of this patient, discussed the same with the dictator, and agree with the dictators assessment and plan as written, documented as a scribe. Based on total visit time, I have performed more than 50% of this visit. Objective - Vital Signs Vital signs: Vital Signs Temp 98.0 F 07/31/24 13:00 Pulse 70 07/31/24 13:00 Resp 18 07/31/24 13:00 BP 99/65 07/31/24 13:00 Pulse Ox 99 07/31/24 13:00 FiO2 Intake & Output 07/30/24 07/31/24 07/31/24 18:59 06:59 18:59 Intake Total 2360 1520 120 Output Total 2545 600 900 Balance -185 920 -780 Weight 83.2 kg Intake: IV 1200 320 120 Aztreonam 2 gm In Sodium 100 Chloride 0.9% 100 ml @ 33 .3 mls/hr IVPB Q24HR [facility] Rx#:[id number] Sodium Chloride 0.9% 1, 500 120 20 000 ml @ 20 mls/hr IV . Q24H [facility] Rx#:[id number] Vancomycin 1,500 mg In 500 Sodium Chloride 0.9% 500 ml 500 ml @ 167 mls/hr IVPB ONCE ONE Rx#: [id number] metroNIDAZOLE-NS PMX 500 100 200 100 mg In Saline 1 100ml.bag @ 100 mls/hr IVPB Q8H [facility] Rx#:[id number] Oral 360 1200 Hemodialysis 800 Output: Urine 0 0 0 Stool 745 600 900 Hemodialysis 1300 Hemodialysis Net Amount 500 - Labs CBC & Chem 7: 07/31/24 04:46 07/31/24 04:37 Labs: Abnormal Lab Results - Last 24 Hours (Table) 07/30/24 07/31/24 07/31/24 Range/Units 13:15 04:37 04:46 RBC 1.83 L (4.10-5.20) 10*6/uL Hgb 7.0 L (12.0-15.0) g/dL Hct 22.1 L (37.2-46.3) % MCV 120.8 H (80.0-97.0) fL MCH 38.3 H (27.0-32.0) pg MCHC 31.7 L (32.0-37.0) g/dL Sodium 133 L (137-145) mmol/L Chloride 97 L (98-107) mmol/L BUN 30 H (7-17) mg/dL Creatinine 6.65 H (0.52-1.04) mg/dL Calcium 7.8 L (8.4-10.2) mg/dL Cortisol 30.7 H (3.1-22.4) UG/DL Microbiology - Last 24 Hours (Table) 07/28/24 23:51 Blood Culture - Preliminary Blood 07/28/24 23:55 Anaerobic Culture - Final Abdomen Anaerobic Gm Negative Bacilli 07/28/24 23:55 Gram Stain - Final Abdomen Wound Culture - Final Escherichia coli Beta Hemolytic Streptococcus F Assessment and Plan Time with Patient: Less than 30
--- NOTE | 2024-07-31 16:23 | P.PN ---
Subjective Patient is seen for follow-up for end-stage renal disease. Status post hemodialysis yesterday. Patient did complete her treatment. Scheduled for hemodialysis again today. Objective - Vital Signs Vital signs: Vital Signs Temp 98.0 F 07/31/24 13:00 Pulse 70 07/31/24 13:00 Resp 18 07/31/24 13:00 BP 99/65 07/31/24 14:00 Pulse Ox 99 07/31/24 13:00 FiO2 Intake & Output 07/30/24 07/31/24 07/31/24 18:59 06:59 18:59 Intake Total 2360 1520 120 Output Total 2545 600 900 Balance -185 920 -780 Weight 83.2 kg Intake: IV 1200 320 120 Aztreonam 2 gm In Sodium 100 Chloride 0.9% 100 ml @ 33 .3 mls/hr IVPB Q24HR [facility] Rx#:[id number] Sodium Chloride 0.9% 1, 500 120 20 000 ml @ 20 mls/hr IV . Q24H [facility] Rx#:[id number] Vancomycin 1,500 mg In 500 Sodium Chloride 0.9% 500 ml 500 ml @ 167 mls/hr IVPB ONCE ONE Rx#: [id number] metroNIDAZOLE-NS PMX 500 100 200 100 mg In Saline 1 100ml.bag @ 100 mls/hr IVPB Q8H [facility] Rx#:[id number] Oral 360 1200 Hemodialysis 800 Output: Urine 0 0 0 Stool 745 600 900 Hemodialysis 1300 Hemodialysis Net Amount 500 - Exam Patient is awake, comfortable, no acute distress Alert oriented x 3 Examination of the heart S1 and S2 Examination of the lungs bilateral breath sounds are heard Abdomen is soft nontender Examination of lower extremities shows no significant edema Bruising noted at the site of the AV graft ASSISTANT SURVEYOR exam grossly intact - Labs CBC & Chem 7: 07/31/24 04:46 07/31/24 04:37 Labs: Abnormal Lab Results - Last 24 Hours (Table) 07/30/24 07/31/24 07/31/24 Range/Units 13:15 04:37 04:46 RBC 1.83 L (4.10-5.20) 10*6/uL Hgb 7.0 L (12.0-15.0) g/dL Hct 22.1 L (37.2-46.3) % MCV 120.8 H (80.0-97.0) fL MCH 38.3 H (27.0-32.0) pg MCHC 31.7 L (32.0-37.0) g/dL Sodium 133 L (137-145) mmol/L Chloride 97 L (98-107) mmol/L BUN 30 H (7-17) mg/dL Creatinine 6.65 H (0.52-1.04) mg/dL Calcium 7.8 L (8.4-10.2) mg/dL Cortisol 30.7 H (3.1-22.4) UG/DL Microbiology - Last 24 Hours (Table) 07/28/24 23:51 Blood Culture - Preliminary Blood 07/28/24 23:55 Anaerobic Culture - Final Abdomen Anaerobic Gm Negative Bacilli 07/28/24 23:55 Gram Stain - Final Abdomen Wound Culture - Final Escherichia coli Beta Hemolytic Streptococcus F Assessment and Plan Assessment: 1. End-stage renal disease maintained on hemodialysis on Saturday schedule. Permacath was discontinued last week and patient currently has a left forearm AV graft 2. Infiltration of the left forearm AV graft with thrombus noted on ultrasound and bruising, vascular surgery on consult. Status post fistulogram on 07/29/2024 with no major abnormality noted. 3. CKD mineral bone disorder 4. Hypotension secondary to volume depletion status post IV fluids, cortisol is low at 4.3. Cosyntropin stimulation test was not done properly, however cortisol did double at 60 minutes from baseline. 5. History of diverticulitis and bowel resection with colostomy with plans for reversal down the road 6. Abdominal wound infection, maintained on antibiotics. Plan: Hemodialysis today. Antibiotics as per ID.
[2024-07-31 22:00] VITALS: TEMP 97.7
[2024-08-01 05:46] LABS: African American GFR (CKD) 13 (>60 ml/min/1.73 sqM); Anion Gap 10 mmol/L; Blood Urea Nitrogen 16 mg/dL (7-17); Calcium 8.4 mg/dL (8.4-10.2); Carbon Dioxide 28 mmol/L (22-30); Chloride 91 mmol/L (98-107); Glucose 74 mg/dL (74-99); Magnesium 1.6 mg/dL (1.6-2.3); Non-African American GFR(CKD) 12 (>60 ml/min/1.73 sqM); Potassium 4.4 mmol/L (3.5-5.1); Sodium 129 mmol/L (137-145)
[2024-08-01 06:13] LABS: HCT 23.9 % (37.2-46.3); HGB 7.8 g/dL (12.0-15.0); MCH 38.8 pg (27.0-32.0); MCHC 32.6 g/dL (32.0-37.0); MCV 118.9 fL (80.0-97.0); Platelet Count 236 10*3/uL (140-440); RBC 2.01 10*6/uL (4.10-5.20); RDW 19.4 % (11.5-14.5); WBC 6.81 10*3/uL (4.50-10.00)
[2024-08-01 09:58] VITALS: BP 104/63; PULSE 70; RESP 16
--- NOTE | 2024-08-01 11:53 | P.PN ---
Subjective Progress Note Date: 08/01/24 Principal diagnosis: left AV graft thrombosis Patient is a 43-year-old female with past medical history significant for end- stage renal disease (undergoes hemodialysis on a Saturday, Saturday, Saturday schedule), focal segmental glomerulosclerosis, complicated diverticulitis with previous partial colectomy and colostomy. Patient was transferred from [facility] yesterday for vascular surgical services. Reportedly, underwent hemodialysis at outside facility, and there were concerns for possible thrombosis of the left AV graft. Patient was also hypotensive, she was admitted to the intensive care unit. Of note, hemoglobin was 6.9 g/dL at the outside facility, and she did receive 1 unit of PRBCs. Repeat labs from yesterday including a WBC count of 8.3, hemoglobin 7.9, platelets 277. BMP: Sodium 132, potassium 4.8, chloride 97, serum bicarb 24, BUN 51, creatinine 9.57, glucose 93. Patient does have a soft tissue abdominal wound with purulent drainage. Previously started on a combination of Flagyl and vancomycin. Infectious diseases consulted. I did receive a call last night, patient's blood pressure was hypotensive, and recommended norepinephrine to be started. She is currently being evaluated in the intensive care unit. She is alert and oriented. Norepinephrine is infusing at 0.03 mcg/kg/min. Also, previously started on midodrine 10 mg 3 times daily. She is afebrile. Nontachycardic. Blood pressures currently 97/56 mmHg. No nausea or vomiting. Colostomy appears functional. Denies any blood loss from her ostomy bag. No abdominal pain. Does have significant mount of purulent drainage from her abdominal wound. Patient states that she first noticed this back in August,. The patient herself has no specific complaints. Patient was seen today on 07/30/2024, underwent ultrasound-guided left upper extremity cephalic vein access fistulogram yesterday, it showed widely patent outflow without any evidence of thrombus or narrowing or any further concern. A central venogram was performed. Patient is now back in the ICU, patient is undergoing hemodialysis, does not seem to be in any distress. She is hemodynamically stable. Being followed by many consultants including vascular surgery. For her abdominal fistula, patient was seen by Dr. Sherwood. He is recommending eventual mesh removal however he is recommending that to be done in a tertiary care center. For the time being the patient is doing well from our perspective, she does not need to remain in the ICU, I will transfer the patient out of the ICU to medical surgical floor today. WBC count is 7.1 hemoglobin 7.8 electrolytes were reviewed bicarb is 16 BUN is 62 creatinine 12.8 Patient was seen today on 07/31/2024, patient seems to be doing quite well, no major issues in the last 24 hours, patient is relatively asymptomatic, she was seen by infectious disease and she was placed on antibiotics for her abdominal fistula. The plan is to consider transitioning her IV antibiotics to oral antibiotics and that is to be decided by infectious disease on the case, in the meantime I plan to transfer the patient out of the ICU to medical surgical floor. Patient is on room air, not in any distress, her WBC count is 6.16 hemoglobin is 7 electrolytes are normal BUN is 30 creatinine 6.65 Patient was seen today on 08/01/2024, on room air, in no distress, she was rome pposed to be discharged home yesterday, however she needs dialysis and by the time she was dialyzed, apparently was too late to discharge the patient home. Presently doing well, asymptomatic, cleared again for discharge if cleared by other consultants. Labs showed WBC of 6.8 hemoglobin 7.8 electrolytes are basically normal except for slightly low sodium of 129 potassium 4.4 BUN 16 creatinine 4.36 Objective - Vital Signs Vital signs: Vital Signs Temp 97.7 F 08/01/24 08:00 Pulse 70 08/01/24 08:00 Resp 16 08/01/24 08:00 BP 104/63 08/01/24 08:00 Pulse Ox 99 08/01/24 02:00 FiO2 Intake & Output 07/31/24 08/01/24 08/01/24 18:59 06:59 18:59 Intake Total 120 1750 Output Total 1700 2550 100 Balance -1580 -800 -100 Weight 81.8 kg Intake: IV 120 240 Sodium Chloride 0.9% 1, 20 40 000 ml @ 20 mls/hr IV . Q24H VANESSA Rx#:[id number] metroNIDAZOLE-NS PMX 500 100 200 mg In Saline 1 100ml.bag @ 100 mls/hr IVPB Q8H VANESSA Rx#:[id number] Oral 960 Hemodialysis 550 Output: Urine 0 Stool 1700 1000 100 Hemodialysis 1050 Hemodialysis Net Amount 500 - Exam GENERAL EXAM: Revealed 43-year-old female pleasant in no distress, on room air HEAD: Normocephalic and atraumatic EYES: Normal reaction of pupils, equal size. NOSE: Clear with pink turbinates. THROAT: No erythema or exudates. NECK: No masses, no JVD. CHEST: No chest wall deformity. LUNGS: Symmetrical chest expansion clear bilaterally no crackles rhonchi or wheezes CVS: S1 and S2 normal with no audible murmur, regular rhythm. No extra heart sounds ABDOMEN: No hepatosplenomegaly, active bowel sounds, no guarding or rigidity. Functional colostomy over the left abdomen SKIN: Soft tissue abdominal wound with areas of induration and erythema and purulent drainage. CENTRAL NERVOUS SYSTEM: Alert oriented x 3 no focal deficit EXTREMITIES: There is no peripheral edema, Left arm ecchymosis, positive bruit and thrill - Labs CBC & Chem 7: 08/01/24 04:50 08/01/24 04:50 Labs: Abnormal Lab Results - Last 24 Hours (Table) 08/01/24 08/01/24 Range/Units 04:50 04:50 RBC 2.01 L (4.10-5.20) 10*6/uL Hgb 7.8 L (12.0-15.0) g/dL Hct 23.9 L (37.2-46.3) % MCV 118.9 H (80.0-97.0) fL MCH 38.8 H (27.0-32.0) pg Sodium 129 L (137-145) mmol/L Chloride 91 L (98-107) mmol/L Creatinine 4.36 H (0.52-1.04) mg/dL Microbiology - Last 24 Hours (Table) 07/28/24 23:51 Blood Culture - Preliminary Blood Assessment and Plan Assessment: Impression Malfunctioning left AV graft fistula on initial presentation Transient hypotension secondary to hypovolemia, resolved with fluid boluses End-stage renal disease, maintained on a Saturday, Saturday, Saturday schedule History of focal segmental glomerulosclerosis Acute on chronic anemia, status post 1 PRBC transfusion, hemoglobin today is 7.8 Chronic soft tissue abdominal wound History of complicated diverticulitis status post sigmoidectomy and colostomy Recommendation: Clear for discharge home today Infectious disease to address her antibiotics and possibly transition to oral antibiotics Time with Patient: Less than 30
--- NOTE | 2024-08-01 13:40 | P.PN ---
Subjective Progress Note Date: 08/01/24 Patient is seen for follow-up for end-stage renal disease. Status post hemodialysis yesterday. No new complaints. Going home today. Patient is awake, comfortable, no acute distress Alert oriented x 3 Examination of the heart S1 and S2 Examination of the lungs bilateral breath sounds are heard Abdomen is soft nontender Examination of lower extremities shows no significant edema Bruising noted at the site of the AV graft [employer] exam grossly intact Objective - Vital Signs Vital signs: Vital Signs Temp 97.7 F 08/01/24 08:00 Pulse 70 08/01/24 08:00 Resp 16 08/01/24 08:00 BP 104/63 08/01/24 08:00 Pulse Ox 99 08/01/24 02:00 FiO2 Intake & Output 07/31/24 08/01/24 08/01/24 18:59 06:59 18:59 Intake Total 120 1750 Output Total 1700 2550 100 Balance -1580 -800 -100 Weight 81.8 kg Intake: IV 120 240 Sodium Chloride 0.9% 1, 20 40 000 ml @ 20 mls/hr IV . Q24H VANESSA Rx#:[id number] metroNIDAZOLE-NS PMX 500 100 200 mg In Saline 1 100ml.bag @ 100 mls/hr IVPB Q8H VANESSA Rx#:[id number] Oral 960 Hemodialysis 550 Output: Urine 0 Stool 1700 1000 100 Hemodialysis 1050 Hemodialysis Net Amount 500 - Labs CBC & Chem 7: 08/01/24 04:50 08/01/24 04:50 Labs: Abnormal Lab Results - Last 24 Hours (Table) 08/01/24 08/01/24 Range/Units 04:50 04:50 RBC 2.01 L (4.10-5.20) 10*6/uL Hgb 7.8 L (12.0-15.0) g/dL Hct 23.9 L (37.2-46.3) % MCV 118.9 H (80.0-97.0) fL MCH 38.8 H (27.0-32.0) pg Sodium 129 L (137-145) mmol/L Chloride 91 L (98-107) mmol/L Creatinine 4.36 H (0.52-1.04) mg/dL Microbiology - Last 24 Hours (Table) 07/28/24 23:51 Blood Culture - Preliminary Blood Assessment and Plan Assessment: 1. End-stage renal disease maintained on hemodialysis on Saturday schedule. Permacath was discontinued last week and patient currently has a left forearm AV graft 2. Infiltration of the left forearm AV graft with thrombus noted on ultrasound and bruising, vascular surgery on consult. Status post fistulogram on 07/29/2024 with no major abnormality noted. 3. CKD mineral bone disorder 4. Hypotension secondary to volume depletion status post IV fluids, cortisol is low at 4.3. Cosyntropin stimulation test was not done properly, however cortisol did double at 60 minutes from baseline. 5. History of diverticulitis and bowel resection with colostomy with plans for reversal down the road 6. Abdominal wound infection, maintained on antibiotics. Plan: Hemodialysis yesterday Antibiotics as per ID. Clear for discharge
--- NOTE | 2024-08-01 15:41 | P.DS ---
Providers Date of admission: 07/28/24 16:41 Attending physician: Cassia Valentin MD Consults: 07/28/24 17:37 Consult Physician Routine Consulting Provider: Vazquez Rodriguez Consult Reason/Comments: clot in fistula Do you want consulting provider notified?: Already Contacted 07/28/24 17:38 Consult Physician Stat Consulting Provider: Juan F Lim Consult Reason/Comments: ICU management Do you want consulting provider notified?: Yes 07/28/24 19:48 Consult Physician Routine Consulting Provider: Jarred Solomon Consult Reason/Comments: infectious disease management Do you want consulting provider notified?: Yes 07/28/24 19:49 Consult Physician Routine Consulting Provider: Giovanni Avelar Consult Reason/Comments: HD pt Do you want consulting provider notified?: Yes Primary care physician: Stated None Hospital Course: Final Diagnosis 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 Patient to follow up with Dr. Solomon in 1 week. patient to follow up with her general surgeon in 1 week. Repeat labs with hemodialysis saturday or saturday. Continue antibiotics with oral augmentin for 14 days post discharge. Total time taken in discharge planning greater than 35 minutes. Hospital Course This is a 43-year-old female with medical history significant for end-stage renal disease maintained on hemodialysis, hypertension, seizure disorder, anemia, focal segmental glomerulosclerosis. Patient has had multiple abdominal surgeries and currently has an ileostomy in place. She has history of umbilical hernia repair with mesh; and history of diverticulitis; cholecystitis. She is also a former smoker. Patient is transferred over from [facility] for vascular consultation. Patient has had a loop graft in the past that was occluded. Back in April patient underwent a left fistula formation. She has been using this for hemodialysis without issues. Her permacatheter was pulled on Saturday while at [facility] as the fistula has been used for hemodialysis. She was then found to have an occluded graft. Patient currently does not have access for hemodialysis. Patient was in the intensive care unit at [facility] she was admitted secondary to hypotension and had been maintained on normal saline fluid. She is admitted to the intensive care unit today with start on a low-dose of Levophed secondary to decreased blood pressures which have improved at this time and Levophed is currently on hold. Additionally she is having some purulent drainage from her umbilical area. This was apparently debrided outpatient by her colorectal team with plans to discuss mass removal at the time for ileostomy reversal. Her surgeon has started her oral doxycycline in the office last week because of this drainage from her abdominal wound. She states that they did not take cultures. Upon admission to this hospital cultures of the wound were taken and patient was started on IV antibiotic therapy in the form of vancomycin and Flagyl with an infectious disease consultation. General surgery was also consulted. Patient underwent fistulogram with findings of a patient AV fistula in the left. Patient currently undergoing hemodialysis. Blood pressure in the 90s systolic and remains off pressor support at this time. Preliminary wound culture showing E.Coli and beta hemolytic streptococcus F. Currently on IV metronidazole and IV aztreonam. ID recommending a course of oral Augmentin on discharge. Patient was given first dose while in hospital and tolerating well. Abdominal pelvis CT was completed which reveals no sizable and drainable abscess. She will be discharged home and recommended to follow-up closely with her outpatient general surgeon. Please see medication reconciliation for a list of current medications. Thank you for allowing us to participate in the care of this patient. The impression and plan of care has been dictated by Roberta Miguel Nurse Practitioner as directed. Dr. Yuki MD I have performed a history and physical examination and medical decision making of this patient, discussed the same with the dictator, and agree with the dictators assessment and plan as written, documented as a scribe. Based on total visit time, I have performed more than 50% of this visit. Patient Condition at Discharge: Stable Plan - Discharge Summary Discharge Rx Participant: No New Discharge Prescriptions: New Darbepoetin Shahram [Aranesp] 60 mcg SQ Q7DAYS #1 each Pantoprazole [Protonix] 40 mg PO DAILY #30 tab Amoxicillin/Potassium Clav [Amox-Clav 500-125 mg Tablet] 1 each PO DAILY 14 Days #14 tablet Cyanocobalamin [Vitamin B-12] 500 mcg PO DAILY #30 tablet Continue Loperamide HCl [Imodium A-D] 2 mg PO QID PRN PRN Reason: loose stools Triphrocaps (B Complex With C 20-Folic Acid 1mg) 1 cap PO DAILY tiZANidine [Zanaflex] 4 mg PO HS Famotidine [Pepcid] 20 mg PO DAILY Sevelamer [Renvela] 800 mg PO TID-W/MEALS Midodrine HCl [ProAmatine] 10 mg PO MOWEFR Discontinued Doxycycline [Vibramycin] 100 mg PO BID Discharge Medication List tiZANidine [Zanaflex] 4 mg PO HS 09/04/23 [History] Famotidine [Pepcid] 20 mg PO DAILY 04/24/24 [History] Loperamide HCl [Imodium A-D] 2 mg PO QID PRN 04/24/24 [History] Midodrine HCl [ProAmatine] 10 mg PO MOWEFR 04/24/24 [History] Sevelamer [Renvela] 800 mg PO TID-W/MEALS 04/24/24 [History] Triphrocaps (B Complex With C 20-Folic Acid 1mg) 1 cap PO DAILY 07/28/24 [History] Amoxicillin/Potassium Clav [Amox-Clav 500-125 mg Tablet] 1 each PO DAILY 14 Days #14 tablet 08/01/24 [Rx] Cyanocobalamin [Vitamin B-12] 500 mcg PO DAILY #30 tablet 08/01/24 [Rx] Darbepoetin Shahram [Aranesp] 60 mcg SQ Q7DAYS #1 each 08/01/24 [Rx] Pantoprazole [Protonix] 40 mg PO DAILY #30 tab 08/01/24 [Rx] Follow up Appointment(s)/Referral(s): Analisa Cruz MD [STAFF PHYSICIAN] - 1 Week Darline Gant DDS [REFERRING] - 1 Week Alia Keita MD [STAFF PHYSICIAN] - 1 Week Jarred Solomon MD [STAFF PHYSICIAN] - 1 Week Ambulatory/Diagnostic Orders: Basic Metabolic Panel [LAB.AMB] Location: None Selected Complete Blood Count w/diff [LAB.AMB] Time Frame: 3 Days, Location: None Selected Activity/Diet/Wound Care/Special Instructions: Continue oral augmentin daily for the next 14 days Stop the doxycycline Follow up with your surgeon outpatient Follow up with Dr Solomon in 1 week Continue the Aranesp injections; this is to help stimulate your blood counts The next injection is for Saturday08/05/2024 after that follow up with Dr Cruz for refills going forward Continue hemodialyis MWF Discharge Disposition: HOME SELF-CARE
--- NOTE | 2024-08-03 22:08 | P.PN ---
Subjective Progress Note Date: 08/01/24 Principal diagnosis: Reason for follow-up is abdominal wound infection Patient is a 43-year-old female with a past medical history significant for hypertension seizure disorder end-stage renal disease on dialysis patient also have a multiple abdominal surgery including umbilical hernia repair with preperitoneal mesh placement with recent admission to outside facility with hypotension subsequently transferred to this facility for the left arm loop graft site clotting slight bruising with a culture from abdominal wound and concerning for cellulitis. On today's evaluation that is 08/01/2024, patient has been afebrile, patient is breathing comfortably and is currently on room air, patient denies having any chest pain and cough, patient denies nausea vomiting and no abdominal pain, patient has tolerated Augmentin without any problem. Patient white count is 6.81, creatinine is 4.36 abdominal culture with anaerobe E. coli and Streptococcus Objective - Vital Signs Vital signs: Vital Signs Temp 97.7 F 08/01/24 08:00 Pulse 70 08/01/24 08:00 Resp 16 08/01/24 08:00 BP 104/63 08/01/24 08:00 Pulse Ox 99 08/01/24 02:00 FiO2 Intake & Output 07/31/24 08/01/24 08/01/24 18:59 06:59 18:59 Intake Total 120 1750 Output Total 1700 2550 100 Balance -1580 -800 -100 Weight 81.8 kg Intake: IV 120 240 Sodium Chloride 0.9% 1, 20 40 000 ml @ 20 mls/hr IV . Q24H VANESSA Rx#:[id number] metroNIDAZOLE-NS PMX 500 100 200 mg In Saline 1 100ml.bag @ 100 mls/hr IVPB Q8H VANESSA Rx#:[id number] Oral 960 Hemodialysis 550 Output: Urine 0 Stool 1700 1000 100 Hemodialysis 1050 Hemodialysis Net Amount 500 - Exam GENERAL DESCRIPTION: Middle-age female lying in bed in no distress RESPIRATORY SYSTEM: Unlabored breathing , decreased breath sounds at bases HEART: S1 S2 regular rate and rhythm , ABDOMEN: Soft , no tenderness, abdominal incision currently dressed EXTREMITIES: No edema feet - Labs CBC & Chem 7: 08/01/24 04:50 08/01/24 04:50 Labs: Abnormal Lab Results - Last 24 Hours (Table) 08/01/24 08/01/24 Range/Units 04:50 04:50 RBC 2.01 L (4.10-5.20) 10*6/uL Hgb 7.8 L (12.0-15.0) g/dL Hct 23.9 L (37.2-46.3) % MCV 118.9 H (80.0-97.0) fL MCH 38.8 H (27.0-32.0) pg Sodium 129 L (137-145) mmol/L Chloride 91 L (98-107) mmol/L Creatinine 4.36 H (0.52-1.04) mg/dL Microbiology - Last 24 Hours (Table) 07/28/24 23:51 Blood Culture - Preliminary Blood Assessment and Plan (1) Abdominal wall abscess Status: Acute Code(s): L02.211 - CUTANEOUS ABSCESS OF ABDOMINAL WALL SNOMED Code(s): 37168911 (2) Allergy to multiple antibiotics Status: Acute Code(s): Z88.1 - ALLERGY STATUS TO OTHER ANTIBIOTIC AGENTS SNOMED Code(s): 673790228 (3) Open abdominal wall wound Status: Acute Code(s): S31.109A - UNSP OPN WND ABD WALL, UNSP Q W/O PENET PERIT CAV, INIT SNOMED Code(s): 201900625 Plan: 1patient with a multiple abdominal surgeries in this patient who did have a history of umbilical hernia surgical repair with a mesh now with some purulent drainage and concern for possible infected mesh the area has been proven by the surgery and culture hematin results will be followed likely gram-positive skin emelina gram-negative infection less likely bilateral excluded. 2patient with multiple antibiotic ALLERGIES that would limit the number of antibiotic safe to use. 3patient culture now growing E. coli in addition to strep, patient did have CT of abdominal pelvis did not mention any intra-abdominal or abdominal wall abscess 4patient has tolerated oral Augmentin which she will continue for 2-week course of oral Augmentin on discharge till the patient can follow-up with her surgeon Dictation was produced using [employer] dictation software. please excuse any grammatical, word or spelling errors. Time with Patient: Less than 30
== END 2024-08-01 12:11 | disposition home or self-care (01) | DRG 314 ==
LOC: 2SICU 16:41
PROVIDERS: ADMIT Internal Medicine; ATTEND Internal Medicine
PROC: B51W1ZZ Fluoroscopy of Dialysis Shunt/Fistula using Low Osmolar Contrast (ICD-10-PCS; principal; 2024-07-29 13:35)
PROC: 5A1D70Z Performance of Urinary Filtration, Intermittent, Less than 6 Hours Per Day (ICD-10-PCS; 2024-07-30)
DX: T82.590A Other mechanical complication of surgically created arteriovenous fistula, initial encounter (principal); K65.1 Peritoneal abscess; N18.6 End stage renal disease; K63.2 Fistula of intestine; I12.0 Hypertensive chronic kidney disease with stage 5 chronic kidney disease or end stage renal disease; D63.1 Anemia in chronic kidney disease; T85.79XA Infection and inflammatory reaction due to other internal prosthetic devices, implants and grafts, initial encounter; E86.1 Hypovolemia; Z99.2 Dependence on renal dialysis; G40.909 Epilepsy, unspecified, not intractable, without status epilepticus; K57.32 Diverticulitis of large intestine without perforation or abscess without bleeding; Z93.3 Colostomy status; B96.20 Unspecified Escherichia coli [E. coli] as the cause of diseases classified elsewhere; B95.7 Other staphylococcus as the cause of diseases classified elsewhere; B95.4 Other streptococcus as the cause of diseases classified elsewhere; M89.8X9 Other specified disorders of bone, unspecified site; I95.89 Other hypotension; E83.42 Hypomagnesemia; Z87.891 Personal history of nicotine dependence; F41.9 Anxiety disorder, unspecified; Y83.2 Surgical operation with anastomosis, bypass or graft as the cause of abnormal reaction of the patient, or of later complication, without mention of misadventure at the time of the procedure; Z82.49 Family history of ischemic heart disease and other diseases of the circulatory system; Z88.1 Allergy status to other antibiotic agents; Z90.49 Acquired absence of other specified parts of digestive tract
CPT/HCPCS: 36901; 74176; 76705; 76937; 80048; 80053; 80202; 82533; 83605; 83735; 85025; 85027; 86706; 87040; 87070; 87075; 87077; 87186; 87205; 87340; 90935